=== PATIENT | female | born 2000 | race Caucasian/White ===

== ENCOUNTER 2019-09-30 14:39 | Emergency (ER) | payer OTHER, SELFPAY ==
[2019-09-30 14:50] VITALS: BP 126/65; PULSE 77; RESP 18; TEMP 36.7; O2SAT 100
--- NOTE | 2019-09-30 14:55 | ED.ABDPAIN ---
HPI - Abdominal Pain General Chief Complaint: Abdominal Pain Stated Complaint: abdominal pain/vomitting Time Seen by Provider: 09/30/19 14:55 Source: patient Mode of arrival: ambulatory Limitations: no limitations History of Present Illness HPI narrative: Mary Huang is a 19 yo female with no PMH who comes to express care with c/o abdominal pain and persistant nausea since Sat. Pain worse with eating. Last vomited yesterday states the pain is gotten worse over the last 2 days and she was up to 130 this morning and pain Related Data Home Medications Medication Instructions Recorded Confirmed No Home Medications 09/30/19 09/30/19 Allergies Allergy/AdvReac Type Severity Reaction Status Date / Time No Known Allergies Allergy Verified 09/30/19 15:01 Review of Systems Review of Systems: Narrative: CONSTITUTIONAL: Denies fever, chills, sweats. EYES: Denies visual changes, redness, discharge. ENT: Denies rhinorrhea, congestion, sore throat, otalgia. CARDIOVASCULAR: Denies chest pain, palpitations, edema. RESPIRATORY: Denies dyspnea, wheezing, cough GASTROINTESTINAL: Denies abdominal pain, nausea, vomiting, diarrhea. Has abdominal pain GENITOURINARY: Denies dysuria, hematuria, abnormal discharge SKIN: Denies rash or itching. NEUROLOGIC: Denies numbness, or focal weakness. PSYCHIATRIC: Denies anxiety or depression. PMFSH Family History Family History Other Hypertension Social History Social History Smoking status: Never smoker Alcohol intake: never Comments At time of signature, I agree with nursing past medical, surgical, social and family history. There is no relevant family history pertinent to the presenting complaint. Exam Narrative: Exam Narrative: GENERAL: This is a well-nourished, well-developed patient, in mild distress. HEAD: normocephalic, atraumatic. EYES: Sclera clear/white. Vision is grossly intact. EARS: External ears normal, Hearing grossly intact. NOSE: External nose normal without nasal discharge, nares without redness, no rhinorrhea. THROAT: Mucous membranes moist, NECK: Neck supple, non-tender CARDIOVASCULAR: Regular rate and rhythm without murmurs, gallops, or rubs. RESPIRATORY: Clear to auscultation. Breath sounds equal bilaterally. No wheezes, rales, or rhonchi. GASTROINTESTINAL: Abdomen soft, SKIN: warm, intact with no suspicious lesions or rash, good texture and turgor. NEURO: awake, alert, and oriented to person, place and time. There were no obvious focal neurologic abnormalities. Steady gait EXTREMITIES: Normal range of motion. BACK: Nontender without deformity Course Course Emergency Course: Urine test negative Worsening abdominal pain patient is to be evaluated the emergency room where blood work can be done and possible imaging Vital Signs Vital signs: Vital Signs Temperature 98.1 F 09/30/19 14:50 Pulse Rate 77 09/30/19 14:50 Respiratory Rate 18 09/30/19 14:50 Blood Pressure 126/65 09/30/19 14:50 Pulse Oximetry 100 09/30/19 14:50 Temperature 98.1 F 09/30/19 14:50 Pulse Rate 77 09/30/19 14:50 Respiratory Rate 18 09/30/19 14:50 Blood Pressure 126/65 09/30/19 14:50 Pulse Oximetry 100 09/30/19 14:50 MDM - Abdominal Pain Differential Diagnosis Differential diagnosis: Likely abdominal pain, acute appendicitis, diverticulitis and other (Ectopic versus colitis) Lab Data Labs: UCG Bedside Result Negative Reference Range: Negative Urine Glucose Negative Reference Range: Negative Urine Bilirubin Negative Reference Range: Negative Urine Ketone Negative Reference Range: Negative Urine Specific [place] 1.030 Reference Range:1.001-1.035 Urine Blood
== END 2019-09-30 15:20 | disposition short-term general hospital (02) ==
PROVIDERS: Emergency Provider Nurse Practitioner; PCP Family Medicine
DX: R10.84 Generalized abdominal pain (principal)
CPT/HCPCS: 81003; 81025; 99213; G0463

== ENCOUNTER 2019-09-30 16:28 | Emergency (ER) | payer OTHER, SELFPAY ==
--- NOTE | ~2019-09-30 | CT_ITS ---
EXAMINATION: CT abdomen pelvis w con INDICATION: Lower abdominal pain TECHNIQUE: Computed tomographic images of the abdomen and pelvis were obtained after the administrati on of 100 cc of Omnipaque 350 intravenous contrast. The dose-length product (DLP) was 1482.23 mGy-cm. Automated exposure control and iterative reconstruction technique were employed. COMPARISON: None available FINDINGS: The lung bases are clear. The heart size is normal. The liver, spleen, pancreas, gallbladde r, and adrenal glands are normal. The kidneys are unremarkable. No pathologically enlarged abdominal or pelvic lymph nodes are identified. There is no free intraperitoneal gas or evidence of bowel obstr uction. The appendix is normal. IMPRESSION: 1. No CT correlate for the patient's symptoms. Reviewed, dictated and finalized at location A.
[2019-09-30 16:47] VITALS: BP 124/75; PULSE 84; RESP 16; TEMP 36.4; O2SAT 99
--- NOTE | 2019-09-30 17:30 | ED.ABDPAIN ---
HPI - Abdominal Pain General Chief Complaint: Abdominal Pain Stated Complaint: abd pain Time Seen by Provider: 09/30/19 17:04 Source: patient Mode of arrival: ambulatory Limitations: no limitations History of Present Illness HPI narrative: This patient is a 19 year old female who presents with c/o lower abdominal pain x 3 days. PAtient states she has constant lower abdominal pain that radiates into her back. She describes her pain has strong cramps. The severity of her pain waxes and wanes. Her pain is worse with eating and it is associated with nausea but no vomiting. She reports normal bowel movements and she urinary symptoms. She has not taken anything for her pain. She rates her pain as 5/10 MD elicited complaint: abdominal pain Related Data Allergies Allergy/AdvReac Type Severity Reaction Status Date / Time No Known Allergies Allergy Verified 09/30/19 17:00 Review of Systems Review of Systems: All systems reviewed & are unremarkable except as noted in HPI and below Constitutional: Constitutional: Denies chills, Denies fever(s) and Denies weakness Gastrointestinal: Gastrointestinal: Reports abdominal pain, Denies diarrhea, Reports nausea and Denies vomiting Genitourinary: Genitourinary: Denies hematuria, Denies nocturia, Denies urinary incontinence and Denies vaginal discharge Musculoskeletal: Musculoskeletal: Reports back pain PMFSH Past Medical History Medical History (Updated 09/30/19 @ 20:06 by Mariam Carroll MD) Patient denies medical problems Surgical History Surgical History (Updated 09/30/19 @ 17:31 by Mariam Carroll MD) Hx of tonsillectomy Social History Social History Smoking status: Never smoker Alcohol intake: never Exam Narrative: Exam Narrative: GENERAL: Well-appearing, well-nourished, and in no acute distress. HEAD: Normocephalic, atraumatic EYES: PERRLA and EOMI, conjunctiva clear without discharge NECK: Supple, without lymphadenopathy or mass RESPIRATORY: No respiratory distress, Airway patent, Respirations non-labored, Clear to auscultation without rales, rhonchi or wheeze HEART: Regular rate and rhythm. No murmur heard. Normal peripheral pulses. . EXTREMITIES: No edema, normal strength with full range of motion. SKIN: Warm, dry, normal color without rash NEURO: Alert and oriented x3. CN 2-12 grossly intact. No focal deficits. PSYCH: Normal mood and affect. GI: GI Palp: Yes Soft to palpation, Yes Tenderness to palpation present (GI) (bilateral lower quadrant), No Guarding due to palpation present (GI) and No Rigid due to palpation Auscultation: normal bowel sounds : Speculum Exam - Vagina: normal vaginal discharge Speculum Exam - Cervix: Cervical os closed Bimanual exam- vagina & uterus: no cervical motion tenderness Bimanual Exam- Adnexa, other: no masses Course Reevaluation(s) Reevaluation #1: I Discussed with patient labs and CT are unremarkable. She states her pain has almost resolved Date: 09/30/19 Time: 20:05 Vital Signs Vital signs: Vital Signs Temperature 97.5 F L 09/30/19 16:47 Pulse Rate 84 09/30/19 16:47 Respiratory Rate 16 09/30/19 16:47 Blood Pressure 124/75 09/30/19 16:47 Pulse Oximetry 99 09/30/19 16:47 Temperature 97.5 F L 09/30/19 16:47 Pulse Rate 84 09/30/19 16:47 Respiratory Rate 16 09/30/19 16:47 Blood Pressure 124/75 09/30/19 16:47 Pulse Oximetry 99 09/30/19 16:47 MDM - Abdominal Pain Differential Diagnosis Differential diagnosis: Likely abdominal pain, acute appendicitis, constipation, diverticulitis and gastroenteritis Lab Data Attestation: I reviewed the patient's lab results. Result diagrams: 09/30/19 17:30 09/30/19 17:30 Labs: Lab Results 09/30/19 09/30/19 09/30/19 Range/Units 17:30 17:30 17:37 WBC 3.9 L (4.5-10.0) K/mm3 RBC 4.49 (4.2-5.4) M/mm3 Hgb 13.3 (12.0-15.0) g/d
[2019-09-30 17:36] LABS: Basophils Percent Auto 0.5 % (0.2-1.2); Eosinophils Absolute Auto 0.1 K/mm3 (0-0.3); Eosinophils Percent Auto 1.3 % (0-4.4); Hematocrit 40.9 % (37.0-47.0); Hemoglobin 13.3 g/dL (12.0-15.0); Immature Granulocyte Absolute 0.01 K/mm3 (0.00-0.031); Immature Granulocyte Percent A 0.3 % (0-0.5); Lymphocytes Absolute Auto 0.69 K/mm3 (0.9-3.2); Lymphocytes Percent Auto 17.7 % (18.3-44.2); Mean Corpuscular HGB Conc 32.5 g/dl (32-36); Mean Corpuscular Hemoglobin 29.6 pg (26-34); Mean Corpuscular Volume 91.1 fl (80-100); Mean Platelet Volume 9.5 fl (7.4-10.4); Monocytes Absolute Auto 0.4 K/mm3 (0.1-0.6); Monocytes Percent Auto 10.3 % (2.6-8.5); Neutrophils Absolute Auto 2.7 K/mm3 (1.3-6.7); Neutrophils Percent Auto 69.9 % (45.5-73.1); Platelet Count Result 204 k/mm3 (150-375); Red Blood Count 4.49 M/mm3 (4.2-5.4); Red Cell Distribution Width 13.2 % (11.5-14.5); White Blood Count 3.9 K/mm3 (4.5-10.0)
[2019-09-30 17:48] LABS: Add Urine Microscopic? YES; Appearance Urine Clear (Clear); Bacteria Urine Trace /hpf; Bilirubin Urine Negative (Negative); Blood Urine Negative (Negative); Color Urine Yellow (Yellow); Glucose Urine UA Negative (Negative); Ketones Urine Trace mg/dL (Negative); Leukocyte Esterase Ur Negative LEU/UL (Negative); Mucus Urine Rare /lpf; Nitrate Urine Negative (Negative); Protein Urine Negative (Negative); RBC Urine 0-2 /hpf (0-2); Specific Grav Ur 1.021 (1.001-1.035); Squamous Epithelial Cell Urine Occasional /hpf (Few); Urobilinogen Urine Negative mg/dL (<2.0); WBC Urine 0-3 /hpf
[2019-09-30] MEDS: LACTATED RINGERS 1,000 ML 999 ML IV CONT (17:50)
[2019-09-30] MEDS: ONDANSETRON INJ 4 MG/2 ML VIAL IV PUSH (17:50)
[2019-09-30] MEDS: KETOROLAC 30 MG/ML VIAL (*BKC) IV PUSH (17:51)
[2019-09-30 17:54] LABS: Alanine Aminotransferase 27 U/L (4-35); Albumin Level 4.4 g/dL (3.5-5.1); Alkaline Phosphatase 73 U/L (38-126); Aspartate Amino Transferase 31 U/L (14-36); Bilirubin,Total 0.7 mg/dL (0.2-1.3); Blood Urea Nitrogen 10 mg/dL (7-17); Calcium 9.3 mg/dL (8.4-10.2); Carbon Dioxide 27 mmol/L (22-30); Chloride 105 mmol/L (98-107); Estimated CRCL calculation 114 ml/min; Estimated Glomerular Filt Rate > 60; Glucose 83 mg/dL (65-105); Lipase 69 U/L (23-300); Potassium 4.1 mmol/L (3.4-5.0); Sodium 138 mmol/L (137-145)
--- NOTE | 2019-09-30 19:21 | PC.NURSE ---
Report to TRAY Johnson to continue care. Dr. Carroll preparing to perform pelvic exam.
--- NOTE | 2019-09-30 19:25 | PC.NURSE ---
Assumed care of pt at this time. report from TRAY Hayes
[2019-09-30 20:13] VITALS: BP 122/88; PULSE 88; RESP 14; O2SAT 99
== END 2019-09-30 20:14 | disposition home or self-care (01) ==
PROVIDERS: Emergency Provider General Practice
DX: R10.32 Left lower quadrant pain (principal); R10.31 Right lower quadrant pain
CPT/HCPCS: 36415; 74177; 80053; 81001; 81003; 81025; 83690; 85025; 87070; 87077; 87491; 87591; 87808; 96361; 96374; 96375; 99284; J1885; J2405; J7120; Q9967

== ENCOUNTER 2020-09-30 10:30 | Emergency (ER) | payer OTHER, SELFPAY ==
--- NOTE | ~2020-09-30 | XR_ITS ---
EXAMINATION: XR elbow LT min 3V DATE: 09/30/2020 10:51 INDICATION: Left elbow pain. Injury. TECHNIQUE: 4 views of left elbow were obtained. COMPARISON: None. FINDINGS: Bone alignment is normal. No fracture. Joint spaces are well maintained. There is no elbow joint effusion. IMPRESSION: 1. Normal left elbow. Reviewed, dictated and finalized at location B. IMPRESSION: 1. Normal left elbow.
[2020-09-30 10:38] VITALS: BP 137/58; PULSE 79; RESP 16; TEMP 36.9; O2SAT 100
--- NOTE | 2020-09-30 10:38 | ED.UPPEXIN ---
HPI - Extremity Injury (Upper) General Chief Complaint: Extremity Injury, Upper Stated Complaint: left elbow pain Time Seen by Provider: 09/30/20 10:38 Source: patient and RN notes reviewed Mode of arrival: ambulatory Limitations: no limitations History of Present Illness HPI narrative: 20-year-old female presents with concern for left elbow injury. Reports yesterday she the elbow on the wall. Reports she has had a prior fracture in the elbow. She denies bruising, swelling, redness. Reports pain at rest, pain with palpation and range of motion. Reports pain that shoots up to her shoulder and down to her wrist. She denies any wrist or shoulder injury. She denies intervention. complaint: injury to: left and elbow Related Data Home Medications Medication Instructions Recorded Confirmed No Home Medications 09/30/20 09/30/20 Allergies Allergy/AdvReac Type Severity Reaction Status Date / Time No Known Allergies Allergy Verified 09/30/20 10:46 Review of Systems Review of Systems: Narrative: CONSTITUTIONAL: Denies malaise, chills, sweats, or fever. CARDIOVASCULAR: Denies chest pain, palpitations, or edema. RESPIRATORY: Denies cough or dyspnea. SKIN: Denies abrasions, lacerations MUSCULOSKELETAL: Reports left elbow pain that radiates to the wrist and shoulder NEUROLOGIC: Denies numbness, weakness All systems reviewed & are unremarkable except as noted in HPI and below PMFSH Past Medical History Medical History (Updated 09/30/20 @ 11:12 by Maine Bender NP) Patient denies medical problems Surgical History Surgical History (Updated 09/30/19 @ 17:31 by Mariam Carroll MD) Hx of tonsillectomy Family History Family History Other Hypertension Social History Social History Smoking status: Never smoker Alcohol intake: never Comments At time of signature, agree with nursing past medical, surgical, social and family history. There is no relevant family history pertinent to the presenting complaint Exam Narrative: Exam Narrative: GENERAL: Well-appearing, well-nourished, and in no acute distress. HEAD: Normocephalic, atraumatic. EYES: PERRLA, conjunctivae clear NECK: Supple. CHEST: Speaks in full sentences. No respiratory distress. HEART: Regular rate and rhythm. Normal and equal peripheral pulses. EXTREMITIES: Left elbow has normal strength and sensation, normal range of motion. No edema or ecchymosis. 5/5 strength with elbow flexion and extension. Normal sensation with sensitivity to light touch and pain. Lateral elbow tenderness. No open wounds, no skin tenting, no devitalized tissue or atrophy, no trophic changes, no obvious deformity, alignment normal, nearby joints and structures intact. Distal pulses palpable and equal bilaterally, skin warm, dry, pink. Capillary refill less than 3 seconds. SKIN: Warm, dry, no rash. NEURO: Alert and oriented x3. PSYCH: Normal mood and affect Course Course Emergency Course: Patient is aware of diagnosis, understands and agrees to treatment plan. Anticipatory guidance given. Patient agrees to follow-up as directed and is aware of reasons to seek care at the emergency department. Portions of this record may have been created with voice recognition software Vital Signs Vital signs: Vital Signs Temperature 98.5 F 09/30/20 10:38 Pulse Rate 79 09/30/20 10:38 Respiratory Rate 16 09/30/20 10:38 Blood Pressure 137/58 L 09/30/20 10:38 Pulse Oximetry 100 09/30/20 10:38 Temperature 98.5 F 09/30/20 10:38 Pulse Rate 79 09/30/20 10:38 Respiratory Rate 16 09/30/20 10:38 Blood Pressure 137/58 L 09/30/20 10:38 Pulse Oximetry 100 09/30/20 10:38 Reviewed. MDM - Extremity Injury (Upper) MDM Narrative Medical decision making narrative: Patients injury and pain is consistent with musculoskeletal etiology. No signs of neurol
== END 2020-09-30 11:16 | disposition home or self-care (01) ==
PROVIDERS: Emergency Provider Nurse Practitioner
DX: S59.902A Unspecified injury of left elbow, initial encounter (principal); W22.01XA Walked into wall, initial encounter
CPT/HCPCS: 73080; 99213; A4565; G0463

== ENCOUNTER 2021-02-24 11:14 | Emergency (ER) | payer OTHER, SELFPAY ==
[2021-02-24 11:23] VITALS: BP 129/54; PULSE 80; RESP 14; TEMP 36.4; O2SAT 100
--- NOTE | 2021-02-24 11:34 | ED.EAR ---
HPI - Ear Problem General Chief complaint: Ear Stated complaint: ear pain Time Seen by Provider: 02/24/21 11:34 Source: patient History of Present Illness HPI Narrative: PATIENT PRESENTS WITH LEFT EAR PAIN. PATIENT WAS DIAGNOSED WITH LEFT OTITS EXTERNA. PATIENT REPORTS HER EAR IS NOT GETTING ANY BETTER. DENIES ANY OTHER COMPLAINTS. PATIENT IS WITH NO RELATED PROBLEMS. MD Complaint: ear pain Related Data Home Medications Medication Instructions Recorded Confirmed ciprofloxacin-dexamethasone 4 drp LEFT EAR Q12H 02/24/21 02/24/21 [Ciprodex] folic acid 1 mg PO DAILY 02/24/21 02/24/21 vit no.209-[id number] 1 tablet PO DAILY 02/24/21 02/24/21 [Alive ] Allergies Allergy/AdvReac Type Severity Reaction Status Date / Time No Known Allergies Allergy Verified 02/24/21 11:35 Review of Systems Review of Systems: CONSTITUTIONAL: Denies fever, chills, or sweats. EYES: Denies visual changes, redness, or discharge. ENT: Denies rhinorrhea, congestion, sore throat, or otalgia. CARDIOVASCULAR: Denies chest pain, palpitations, or edema. RESPIRATORY: Denies cough or dyspnea. GASTROINTESTINAL: Denies abdominal pain, nausea, vomiting, or diarrhea. GENITOURINARY: Denies dysuria or hematuria. SKIN: Denies rash or itching. MUSCULOSKELETAL: Denies back pain, joint pain, or myalgia. NEUROLOGIC: Denies headache, numbness, or weakness. PSYCHIATRIC: Denies anxiety or depression. PMFSH Past Medical History Medical History (Updated 02/24/21 @ 11:43 by RASHI Tubbs) Patient denies medical problems Surgical History Surgical History (Updated 09/30/19 @ 17:31 by Mariam Carroll MD) Hx of tonsillectomy Family History Family History Other Hypertension Social History Social History Smoking status: Never smoker Alcohol intake: never Comments At time of signature, agree with nursing past medical, surgical, social and family history. There is no relevant family history pertinent to the presenting complaint Exam Narrative: GENERAL: Well-appearing, well-nourished, and in no acute distress. HEAD: Normocephalic, atraumatic. EYES: PERRLA and EOMI. ENT: Nares clear, no rhinorrhea or epistaxis. Mucous membranes moist. Right ear moderate erythremia to canal TM opaque left TM dullness no erythremia to the canal NECK: Supple. CHEST: Clear to auscultation. No respiratory distress. HEART: Regular rate and rhythm. No murmur heard. Normal peripheral pulses. ABDOMEN: Soft, nontender, nondistended, normal active bowel sounds. EXTREMITIES: Normal range of motion. No edema. SKIN: Warm, dry, no rash. NEURO: No focal deficits. Alert and oriented x3. [place] Coma Scale Eye Opening: Spontaneous 4 [place] Coma Scale Motor: Obeys Commands 6 [place] Coma Scale Verbal: Oriented 5 Heath Coma Scale Total 15 Course Vital Signs Vital signs: Vital Signs Temperature 36.4 C L 02/24/21 11:23 Pulse Rate 80 02/24/21 11:23 Respiratory Rate 14 02/24/21 11:23 Blood Pressure 129/54 L 02/24/21 11:23 Pulse Oximetry 100 02/24/21 11:23 Temperature 36.4 C L 02/24/21 11:37 Pulse Rate 80 02/24/21 11:37 Respiratory Rate 14 02/24/21 11:37 Blood Pressure 129/54 L 02/24/21 11:37 Pulse Oximetry 100 02/24/21 11:37 Addressed elevated BP today. Today's blood pressure higher than recommended range. Discussed importance of follow -up with PCP and possible terminal block assembler effects/cardiovascular events related to HTN. Currently patient denies headache, dizziness, vision changes, CP or shortness of breath. Medical Decision Making Differential Diagnosis Differential Diagnosis: Otitis media, otitis externa, eustachian tube dysfunction Vital Signs Vital Signs: Vital Signs Temperature 36.4 C L 02/24/21 11:23 Pulse Rate 80 02/24/21 11:23 Respiratory Rate 14 02/24/21 11:23 Blo
[2021-02-24 11:37] VITALS: BP 129/54; PULSE 80; RESP 14; TEMP 36.4; O2SAT 100
== END 2021-02-24 11:50 | disposition home or self-care (01) ==
PROVIDERS: Emergency Provider Nurse Practitioner Family
DX: O99.891 Other specified diseases and conditions complicating pregnancy (principal); Z3A.00 Weeks of gestation of pregnancy not specified; H66.91 Otitis media, unspecified, right ear
CPT/HCPCS: 99213; G0463

== ENCOUNTER 2022-06-22 15:17 | Emergency (ER) | payer OTHER, SELFPAY ==
--- NOTE | 2022-06-22 15:19 | ED.URI ---
HPI - URI/Sore Throat General Chief Complaint: Eye Problems Stated Complaint: drainage from nose and eye Time Seen by Provider: 06/22/22 15:19 Source: patient and RN notes reviewed History of Present Illness HPI Narrative: Patient is a 22-year-old female who presents to urgent care with complaints of nasal drainage and left eye drainage. Patient states it started yesterday and she has not been doing anything [id number] for her symptoms. Patient does not wear contacts. Only glasses. Denies any eye injury or pain to the eye. No other acute complaints. No acute distress noted. Patient aware of the plan of care. Some parts of this dictation were generated by voice recognition software and may contain typographical and/or grammatical inaccuracies. Related Data Home Medications Medication Instructions Recorded Confirmed topiramate 50 mg tablet See Rx Instructions .Route .COMPLEX 06/22/22 06/22/22 Allergies Allergy/AdvReac Type Severity Reaction Status Date / Time No Known Allergies Allergy Verified 06/22/22 15:29 Review of Systems Review of Systems: CONSTITUTIONAL: Denies fever, chills, or sweats. EYES: Reports of drainage and itchiness to the left eye ENT: Reports rhinorrhea from the left nostril CARDIOVASCULAR: Denies chest pain, palpitations, or edema. RESPIRATORY: Denies cough or dyspnea. GASTROINTESTINAL: Denies abdominal pain, nausea, vomiting, or diarrhea. GENITOURINARY: Denies dysuria or hematuria. SKIN: Denies rash or itching. MUSCULOSKELETAL: Denies back pain, joint pain, or myalgia. NEUROLOGIC: Denies headache, numbness, or weakness. All other systems reviewed are negative, except as documented in HPI. [facility] Past Medical History Medical History (Updated 06/22/22 @ 15:49 by RASHI Rossi) Patient denies medical problems Surgical History Surgical History (Updated 09/30/19 @ 17:31 by Mariam Carroll MD) Hx of tonsillectomy Family History Family History Other Hypertension Social History Social History Smoking status: Never smoker Alcohol intake: never Comments At the time of my signature, I reviewed and agree with the nursing past medical, surgical, social, and family history. There is no relevant family history pertinent to the patient complaint. Exam Narrative: GENERAL: This is a well-nourished, well-developed patient, in no apparent distress. HEAD: normocephalic, atraumatic. EYES: PERRL. right Sclera clear/white. Vision is grossly intact. Mildly injected left conjunctiva/sclera with thick yellow drainage EARS: External ears normal, auditory canals clear and without drainage, TMs normal without perforation. Hearing grossly intact. NOSE: External nose normal with no obvious nasal discharge, nares without redness, yellow rhinorrhea. THROAT: Mucous membranes moist, posterior pharynx clear. Mild postnasal drainage NECK: Neck supple, non-tender without lymphadenopathy, masses or thyromegaly. CARDIOVASCULAR: Regular rate and rhythm without murmurs, gallops, or rubs. RESPIRATORY: Clear to auscultation. Breath sounds equal bilaterally. No wheezes, rales, or rhonchi. SKIN: warm, intact with no suspicious lesions or rash, good texture and turgor. NEURO: awake, alert, and oriented to person, place and time. There were no obvious focal neurologic abnormalities. EXTREMITIES: No clubbing, cyanosis, or edema. Course Course Level of Care: Express Care Visit Vital Signs Vital signs: Vital Signs Temperature 97.8 F 06/22/22 15:23 Pulse Rate 87 06/22/22 15:23 Respiratory Rate 16 06/22/22 15:23 Blood Pressure 143/69 H 06/22/22 15:23 Pulse Oximetry 100 06/22/22 15:23 Oxygen Delivery Room Air 06/22/22 15:23 Temperature 97.8 F 06/22/22 15:23 Pulse Rate 87 06/22/22 15:23 Respiratory Rate 16 06/22/22 15:23 Blood Pressure 143/69 H 02
[2022-06-22 15:23] VITALS: BP 143/69; PULSE 87; RESP 16; TEMP 36.6; O2SAT 100
== END 2022-06-22 15:50 | disposition home or self-care (01) ==
PROVIDERS: Emergency Provider Nurse Practitioner Family; PCP Family Medicine
DX: H10.9 Unspecified conjunctivitis (principal)
CPT/HCPCS: 99213; G0463

== ENCOUNTER 2023-02-03 13:50 | Emergency (ER) | payer OTHER, SELFPAY ==
--- NOTE | 2023-02-03 13:52 | ED.EAR ---
HPI - Ear Problem General Chief complaint: Ear Stated complaint: Right Ear Problem Time Seen by Provider: 02/03/23 13:51 Source: patient Mode of arrival: ambulatory Limitations: no limitations History of Present Illness HPI Narrative: Mary is a 22-year-old female patient presenting to the clinic today with complaints of right ear pain, sinus congestion, and green nasal drainage x1 week. She reports no known fever or chills. Did 2 at home COVID test over the last week and were negative. States she is having decreased hearing and pain in the right ear and elbow left ear is also having decreased hearing. Related Data Home Medications Medication Instructions Recorded Confirmed topiramate 50 mg tablet See Rx Instructions .Route .COMPLEX 06/22/22 02/03/23 Allergies Allergy/AdvReac Type Severity Reaction Status Date / Time No Known Allergies Allergy Verified 06/22/22 15:29 Review of Systems Review of Systems: Pertinent positives per HPI. Patient denies any fever, chills, rash, headache, visual changes, dizziness, sore throat, shortness of breath, chest pain, palpitations, nausea, vomiting, diarrhea, constipation, abdominal pain, or any urinary issues. PMFSH Past Medical History Medical History Patient denies medical problems Surgical History Surgical History Hx of tonsillectomy Family History Family History Other Hypertension Social History Social History Smoking status: Never smoker Alcohol intake: never Comments At the time of my signature, I reviewed and agree with the nursing past medical, surgical, social, and family history. There is no relevant family history pertinent to the patient complaint. Exam Narrative: General: Well-developed, well nourished, in no apparent distress Head: Normocephalic, atraumatic Eyes: Pupils equally round and reactive to light bilaterally, EOM intact, sclera and conjunctive clear, no discharge, lids normal Ears: Left TM intact and clear, right TM intact, bulging, red, ear canals clear, no drainage, grossly hearing normal. Nose: Nares patent, green nasal discharge, moderate inflammation, maxilla sinus tenderness. Mouth: Oropharynx without lesions or masses, good dentition, MMM. Neck: Supple, trachea midline, no enlargement of anterior or posterior cervical nodes, no thyroid masses or goiter palpable. Cardio: Regular rate and rhythm, s1 and s2 normal, no murmur appreciated. Resp: Clear to auscultation bilaterally anteriorly and posteriorly, no rhonchi, rales, wheezing or rubs Course Course Emergency Course: Portions of this record may have been created with voice recognition software. Level of Care: Express Care Visit Vital Signs Vital signs: Vital signs reviewed Medical Decision Making MDM Narrative Medical decision making narrative: At the time of visit patient is resting comfortably on the exam table. Patient has right otitis media and sinusitis. Prescription for Augmentin and prednisone was sent to pharmacy. Supportive measures were discussed with the patient she voiced understanding discharge instructions agrees to treatment plan. Differential Diagnosis Differential Diagnosis: Otitis media, otitis externa, eustachian tube dysfunction, cerumen impaction, upper respiratory infection, sinus infection Discharge Plan Discharge Clinical Impression: Acute right otitis media Sinus infection Qualifiers: Sinusitis location: maxillary Chronicity: acute Recurrence: non-recurrent Qualified Code(s): J01.00 - Acute maxillary sinusitis, unspecified Patient Disposition: Home, Self-Care Condition: Stable Instructions: Antibiotic Form, Ear Infection (ED), Rhinosinusitis (ED) Additional Instructions: Aditya
[2023-02-03 13:58] VITALS: BP 153/81; PULSE 83; RESP 16; TEMP 36.5; O2SAT 100
== END 2023-02-03 14:06 | disposition home or self-care (01) ==
PROVIDERS: Emergency Provider Nurse Practitioner Family
DX: H66.91 Otitis media, unspecified, right ear (principal); J01.00 Acute maxillary sinusitis, unspecified
CPT/HCPCS: 99213; G0463

== ENCOUNTER 2023-12-24 15:46 | Emergency (ER) | payer OTHER, SELFPAY ==
[2023-12-24 15:54] VITALS: BP 121/90; PULSE 81; RESP 18; TEMP 36.8; O2SAT 100
--- NOTE | 2023-12-24 16:47 | ED.GENADULT ---
HPI - General Adult General Chief complaint: Unspecified Stated complaint: Fever Source: patient Mode of arrival: ambulatory Limitations: no limitations History of Present Illness HPI narrative: Patient presents for evaluation of sick symptoms. Symptom onset last night. Symptoms include hot flashes, sinus congestion and some mild shortness of breath. She is currently approximately 25 weeks gestation. She has had a confirmed IUP per ultrasound. Denies any abdominal pain or vaginal bleeding. 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 She was recently treated for UTI with amoxicillin. She would like a COVID test but did not have one at home. Related Data Home Medications Medication Instructions Recorded Confirmed aspirin 81 mg tablet,delayed mg 12/24/23 release vit no.95-ferrous tablet PO 12/24/23 fumarate 28 mg-folic acid 800 mcg tablet () riboflavin (vitamin B2) 400 mg mg 12/24/23 tablet Allergies Allergy/AdvReac Type Severity Reaction Status Date / Time No Known Allergies Allergy Verified 06/22/22 15:29 Review of Systems Review of Systems: CONSTITUTIONAL: Reports hot flashes. Denies fever, chills, or sweats. EYES: Denies visual changes, redness, or discharge. ENT: Reports sinus congestion. Denies rhinorrhea, sore throat, or otalgia. CARDIOVASCULAR: Denies chest pain, palpitations, or edema. RESPIRATORY: Reports mild SOB. Denies cough or dyspnea. GASTROINTESTINAL: Denies abdominal pain, nausea, vomiting, or diarrhea. GENITOURINARY: Denies dysuria or hematuria. SKIN: Denies rash or itching. MUSCULOSKELETAL: Denies back pain, joint pain, or myalgia. NEUROLOGIC: Denies headache, numbness, dizziness, or weakness. PSYCHIATRIC: Denies anxiety or depression. [facility] Past Medical History Medical History Patient denies medical problems Surgical History Surgical History Hx of tonsillectomy Family History Family History Other Hypertension Social History Social History Smoking status: Never smoker Alcohol intake: never Gender identity (if verbalized by the patient): Female Sexual Orientation (if Verbalized by the Patient): Straight or Heterosexual Spiritual care concerns: No Exam Narrative: GENERAL: Well-appearing, well-nourished, and in no acute distress. HEAD: Normocephalic, atraumatic. EYES: PERRLA and EOMI. ENT: Nares clear, no rhinorrhea or epistaxis. Mucous membranes moist. Oropharynx without tonsillar hypertrophy exudate or other lesions. Bilateral TMs pearly andersen nonbulging NECK: Supple. No adenopathy or masses. No carotid bruits or JVD CHEST: Clear to auscultation. No respiratory distress. No wheezes rales or rhonchi HEART: Regular rate and rhythm. No murmur heard. Normal peripheral pulses. ABDOMEN: Soft, nontender, nondistended, normal active bowel sounds. EXTREMITIES: Normal range of motion. No edema. SKIN: Warm, dry, no rash. NEURO: No focal deficits. Alert and oriented x3. PSYCH: Normal mood and affect. Course Course Emergency Course: This is a 23 old female who presented for evaluation of sick symptoms. COVID test here negative. Exam is consistent with acute viral syndrome. Vital signs are stable. Follow-up with primary provider and OBGYN. Go to the ER for worsening symptoms. Patient in agreement with of care. Level of Care: Express Care Visit Vital Signs Vital signs: Vital Signs Temperature 36.8 C 12/24/23 15:54 Pulse Rate 81 12/24/23 15:54 Respiratory Rate 18 12/24/23 15:54 Blood Pressure 121/90 12/24/23 15:54 Pulse Oximetry 100 12/24/23 15:54 Oxygen Delivery Room Air 12/24/23 15:54 Temperature 36.8 C 12/24/23 1
== END 2023-12-24 16:45 | disposition home or self-care (01) ==
PROVIDERS: Emergency Provider Nurse Practitioner
DX: O98.512 Other viral diseases complicating pregnancy, second trimester (principal); B34.9 Viral infection, unspecified; Z3A.25 25 weeks gestation of pregnancy; Z20.822 Contact with and (suspected) exposure to COVID-19
CPT/HCPCS: 87426; 99212; G0463

== ENCOUNTER 2024-05-03 08:43 | Emergency (ER) | payer OTHER, SELFPAY ==
--- NOTE | ~2024-05-03 | XR_ITS ---
EXAMINATION: XR finger 2nd RT min 2V DATE: 05/03/2024 09:05 INDICATION: Pain at the right second middle phalanx post injury 2 weeks prior TECHNIQUE: Dorsal palmar, lateral and 2 oblique views of the right second digit were obtained COMPARISON: 07/15/2013 FINDINGS: Alignment is normal. No fracture. Joint spaces are normal. Soft tissues are unremarkable. IMPRESSION: 1. Negative radiographs of the right second digit Reviewed, dictated and finalized at location [facility] [employer]
[2024-05-03 08:49] VITALS: BP 141/78; PULSE 71; RESP 16; TEMP 36.6; O2SAT 100
--- NOTE | 2024-05-03 09:07 | ED.UPPEXIN ---
HPI - Extremity Injury (Upper) General Chief Complaint: Extremity Injury, Upper Stated Complaint: Finger Injury Source: patient Mode of arrival: ambulatory Limitations: no limitations History of Present Illness HPI narrative: 24 y/o female presented for c/o right index finger pain x2 weeks after an injury. States she injured it somehow while trying to adjust a carseat.Says she cannot fully make a fist with the finger. Denies numbness, tingling or deformity. She has a 4week old baby and had been taking Tylenol and ibuprofen, but without much improvement in finger pain. Related Data Home Medications ?Medication ?Instructions ?Recorded ?Confirmed ?Last Taken ?Type aspirin 81 mg tablet,delayed mg 12/24/23 Unknown History release vit no.95-ferrous tablet PO 12/24/23 Unknown History fumarate 28 mg-folic acid 800 mcg tablet () riboflavin (vitamin B2) 400 mg mg 12/24/23 Unknown History tablet Allergies Allergy/AdvReac Type Severity Reaction Status Date / Time No Known Allergies Allergy Verified 05/03/24 09:08 Review of Systems Review of Systems: CONSTITUTIONAL: Denies body aches, fever, chills CARDIOVASCULAR: Denies chest pain, palpitations, or edema. RESPIRATORY: Denies cough or dyspnea. GASTROINTESTINAL: Denies abdominal pain, nausea, vomiting, or diarrhea. SKIN: Denies rash, itching, or wounds. MUSCULOSKELETAL: per HPI NEUROLOGIC: Denies numbness, tingling, or weakness. All systems reviewed & are unremarkable except as noted in HPI and below PMFSH Past Medical History Medical History Patient denies medical problems Surgical History Surgical History Hx of tonsillectomy Family History Family History Other Hypertension Social History Social History Smoking status: Never smoker Alcohol intake: never Gender identity (if verbalized by the patient): Female Sexual Orientation (if Verbalized by the Patient): Straight or Heterosexual Spiritual care concerns: No Comments At time of signature, I have reviewed and agree with nursing past medical, surgical, social and family history unless otherwise noted. Please see nursing chart for further information. There is no relevant family history pertinent to the presenting complaint Exam Narrative: GENERAL: Well-appearing CHEST: Speaks in full sentences. No respiratory distress. HEART: Regular rate and rhythm. Normal and equal peripheral pulses. EXTREMITIES: Right 2nd digit has normal strength and sensation, slightly decreased range of motion with flexion due to pain with movement. Tender to PIP radial side, No swelling or ecchymosis, No open wounds, or obvious deformity; alignment normal, pulse palpable and equal bilaterally, skin warm, dry, pink. Capillary refill less than 3 seconds. SKIN: Warm, dry NEURO: Alert and oriented x3. PSYCH: Normal mood and affect Course Course Emergency Course: Patient is aware of diagnosis, understands and agrees to treatment plan. Anticipatory guidance given. Patient agrees to follow-up as directed and is aware of reasons to seek care at the emergency department. Portions of this record may have been created with voice recognition software Level of Care: Express Care Visit Vital Signs Vital signs: Vital Signs Temperature 98 F 05/03/24 08:49 Pulse Rate 71 05/03/24 08:49 Respiratory Rate 16 05/03/24 08:49 Blood Pressure 141/78 H 05/03/24 08:49 Pulse Oximetry 100 05/03/24 08:49 Oxygen Delivery Room Air 05/03/24 08:49 Temperature 98 F 05/03/24 08:49 Pulse Rate 71 05/03/24 08:49 Respiratory Rate 16 05/03/24 08:49 Blood Pressure 141/78 H 05/03/24 08:49 Pulse Oximetry 100 05/03/24 08:49 Oxygen Delivery Room Air 05/03/24 08:49 Reviewed MDM - Extremity Injury (Upper) MDM Narrative Medical decision making narrative: Patient's injury and pain appear to be of musculoskeletal nature. No concern for tendon or nerve injury. Discussed physical exam findings and xray. Advised supportive measures and signs/symptoms to go to the ER. Pt is appropriate for outpt treatment and f/u. Differential Diagnosis Differential diagnosis: Likely finger sprain and dislocation of finger Imaging Data Radiologist's impression: Patient: Mary Singh : 2000 MR#: [id number] Age: 24 Acct:[id number] Loc: [facility] ADM Date: 05/03/24Attending Dr: Ordering Physician: Annamaria Bruce APRN Date of Service: 05/03/24 Procedure(s): XR finger 2nd RT min 2V Accession Number(s): [id number] cc: Annamaria Bruce APRN; [facility] ~ EXAMINATION: XR finger 2nd RT min 2V DATE: 05/03/2024 09:05 INDICATION: Pain at the right second middle phalanx post injury 2 weeks prior TECHNIQUE: Dorsal palmar, lateral and 2 oblique views of the right second digit were obtained COMPARISON: 07/15/2013 FINDINGS: Alignment is normal. No fracture. Joint spaces are normal. Soft tissues are unremarkable. IMPRESSION: 1. Negative radiographs of the right second digit Discharge Plan Discharge Clinical Impression: Finger pain, right Patient Disposition: Home, Self-Care Condition: Stable Instructions: Finger Sprain (ED) Additional Instructions: Rest and elevate the right hand; activity as tolerated Apply ice 15-20 minute intervals several times a day Motrin 600mg every 8 hours, alternate with Tylenol 1000mg every 8 hours as needed Follow up with your primary care provider as needed Go to the ER for worsening symptoms or concerns Patient Language: Estonian Prescriptions: No Action aspirin 81 mg tablet,delayed release (DR/EC) PNV cmb#95-ferrous fumarate-FA [] 28 mg iron- 800 mcg tablet PO riboflavin (vitamin B2) 400 mg tablet Follow-up/Referrals: David Navarro MD [Physician] - [facility] [Primary Care Provider] - Time of Disposition: 09:15
--- OUTSIDE RECORDS SUMMARY | 2024-05-10 20:14 | XMS_ITS | Continuity of Care Document ---
Author Organization SIM [facility] RIVERA 14 IM Address 4 [facility] [address] [place] [address] Care Team Providers Care Body Art Technician Name Role Phone GLENNA MAHAJAN Primary Care Provider [phone] Assessment Encounter Date Assessment Date Assessment LastModified by Organization Details LastModified Time 02/02/2024 02/02/2024 Pt's case was discussed w/resident. Documentation was reviewed, and I agree w/resident's note. Dr. Interiano [email or web address] Not available 02/06/2024 13:39:46 Plan of Treatment Reminders Order Date Submit Date Provider Last Modified By Organization Details Last Modified Time Details Appointments ANY 30 025 08:15AM Glenna Mahajan MD Not available Not available Not available Lab None record ed. Referral None record ed. Procedures None record ed. Surgeries None record ed. Imaging None record ed. Medication Orders None record ed. Patient TargetsNo targets recorded. Patient InstructionsNo instructions recorded. Reason for Referral None Reported. Results Created Date Observation Date Name Description Value Unit Range Abnormal Flag Note LastModifiedBy Organization Detail LastModifiedTime 08/11/1908/11/2023 US, obste tric, 1st trime ster No observ ation record ed. [email or web address] Yeh [facility] Scheduling 1 [facility], [address], 08/15/2023 11:34:26 08/28/19 24 08/28/2023 US, obste tric, 1st trime ster No observ ation record ed. [email or web address] Yeh [facility] Scheduling 1 [facility], [address], 08/31/2023 15:24:09 10/13/19 24 10/13/2023 US, obste tric, 1st trime ster No observ ation record ed. [email or web address] Yeh [facility] Scheduling 1 [facility] , [place], [address], 10/17/2023 09:42:21 10/30/19 24 10/13/2023 US, obste tric, 1st trime ster No observ ation record ed. [email or web address] [facility] [address] [facility] [address], [place], [address], 10/31/2023 16:39:12 11/24/19 24 11/24/2023 US, obste tric, mater nal evalu ation + anato my No observ ation record ed. [email or web address] [facility] () [address] [facility], [place], [address], 12/04/2023 13:07:13 11/24/19 24 11/24/2023 US, obste tric, mater nal evalu ation + anato my No observ ation record ed. [email or web address] Not Available 2023 13:07:22 Result Notes None recorded. Problems Name Problem SNOMED Code Status Onset Date Resolution Date Notes Provider Name and Address Organization Details Recorded Time Migraine without aura 46811986 Completed 201903/12/2020 YUNI Hightower NP Attn: Accounting ,[address] [facility], [place], [address] , [facility] 0 10:03:35 Adult health examinat ion Completed 201903/12/2020 YUNI Hightower NP Attn: Accounting ,[address] [facility], [place], [address] , [facility] 0 10:03:21 Loss of hair 058172237 Completed 201903/12/2020 YUNI Hightower NP Attn: Accounting ,[address] [facility], [place], [address] , [facility] 0 10:03:33 Posterio r rhinorrh ea 82358327 Completed 201903/12/2020 YUNI Hightower NP Attn: Accounting ,[address] [facility], [place], [address] , [facility] 0 10:03:39 Facial swelling 103913288 Completed 201903/12/2020 YUNI Hightower NP Attn: Accounting ,[address] [facility], [place], [address] , [facility] 0 10:03:31 Pregnanc y [id number] Completed 202008/02/2021 Glenna Mahajan MD Attn: Accounting ,[address] [facility], [place], [address] , [facility] 4 12:18:22 Family history of Spina bifida 206206223 Completed sister of patient has Spina bifida and CP. Pt referred to [facility] for co manageme nt. Started pt on addition al 400 mcg of folic acid with PNV. TUTU Nguyen Attn: Accounting ,[address] [facility], [place], [address] , [facility] 2 15:29:26 Low back pain in pregnanc y [id number] 06 Completed Pt educated on manageme nt options and importan ce of stretchi ng and massage. Pt opts for PT referral . maternit y belt ordered. Pt educated on warning signs and when to call office. Pt also notified when to go to [facility]. RTC in 4 weeks and call office if issues occur. TUTU Nguyen Attn: Accounting ,[address] [facility], [place], [address] , [facility] 2 15:29:26 RhD negative [id number] Completed aware of need for routine rhoGAM and as needed if issues occur. TUTU Nguyen Attn: Accounting ,[address] [facility], [place], [address] , [facility] 2 15:29:26 Urinary tract infectio us disease 03202476 Completed 03/12/2020 YUNI Hightower NP Attn: Accounting ,[address] [facility], [place], [address] , [place] [facility] 0 10:03:41 Otalgia 24566275 Completed 06/25/2019 Venecia vasquez, [place] - [facility] 0 10:46:29 Morbid obesity 400498573 Completed 03/12/2020 Glenna Mahajan MD Attn: Accounting ,[address] [facility], [place], [address] , [place] [facility] 4 09:49:38 Morbid obesity 865632603 Active 2023 pt educated on risk and discusse d safe lifestyl e modifica tions in pregnanc y. Pt to see obgyn here and co-manag e with amada James MD Attn: Accounting ,[address] [facility], [place], [address] , [place] [facility] 4 13:11:28 Headache 60612878 Active 2023 Glenna Mahajan MD Attn: Accounting ,[address] [facility], [place], [address] , [place] [facility] 4 09:49:50 Pregnanc y 10758475 Completed 202304/25/2024 Glenna Mahajan MD Attn: Accounting ,[address] [place], [address] , [place] [facility] 4 12:18:22 Family history of Spina bifida 619974801 Completed co manage with amada James MD Attn: Accounting ,[address] [place], [address] , [place] [facility] 4 13:11:28 Morbid obesity 781984671 Completed 2023 pt educated on risk and discusse d safe lifestyl e modifica tions in pregnanc y. Pt to see obgyn here and co-manag e with amada James MD Attn: Accounting ,[address] [facility], [place], [address] , [place] [facility] 4 13:11:28 RhD negative 933722590 Completed educated on need of rhoGAM and timing of injectio ns Deyvi James MD Attn: Accounting ,[address] [facility], [place], [address] , [place] [facility] 4 13:11:28 Past pregnanc y history of postpart um hemorrha ge 746638851 Completed co manage with mfm and obgyn Deyvi James MD Attn: Accounting ,[address] [facility], [place], [address] , [place] [facility] 4 13:11:28 Migraine 65381774 Completed [facility] stopped topirama te and start tylenol Deyvi James MD Attn: Accounting ,[address] [facility], [place], [address] , [place] [facility] 4 13:11:28 Proteinu hailee 87854878 Completed Deyvi James MD Attn: Accounting ,[address] [facility], [place], [address] , [place] [facility] 4 13:11:28 Group B Streptoc occus carrier [id number] 03 Completed GBS in urine 09/18/23 Deyvi James MD Attn: Accounting ,[address] [facility], [place], [address] , [place] [facility] 4 13:11:28 Varicell a non-immu ne 139561964 Completed Recommen d vaccine after delivery . Deyvi James MD Attn: Accounting ,[address] [facility], [place], [address] , [place] [facility] 4 13:11:28 Migraine 12450744 Active 2023 Glenna Mahajan MD Attn: Accounting ,[address] [place], [address] , [place] [facility] 4 12:46:34 Vitamin D deficien cy 60852791 Completed 03/12/2020 YUNI Hightower NP Attn: Accounting ,[address] [facility], [place], [address] , [place] [facility] 0 10:03:44 Astigmat ism 38795227 Completed 03/12/2020 YUNI Hightower NP Attn: Accounting ,[address] [facility], [place], [address] , [place] [facility] 0 10:03:46 Caf? ? ? au lait spots 438120535 Completed 06/25/2019 Venecia vasquez, [place] [facility] 0 10:46:04 Acute sinusiti s 02906688 Completed 03/12/2020 YUNI Hightower NP Attn: Accounting ,[address] [facility], [place], [address] , [place] [facility] 0 10:03:19 Headache 40115681 Completed 06/25/2019 Glenna Mahajan MD Attn: Accounting ,[address] [place], [address] , [place] [facility] 4 09:49:50 Problem Notes None recorded. Procedures Surgical History Date Name Laterality Status Provider Name and Address Organization Details Recorded Time 07/25/19 24 Date of Last Pap Smear completed DELPHINE Tyson [place] - [place] 07/25/2023 14:13:14 05/08/19 13 Tonsillectomy completed Amanda Orr MA [place] - [facility] 07/02/2014 10:50:27 05/08/19 13 Adenoidectomy completed Amadna Orr MA [place] - [facility] 07/02/2014 10:50:27 biopsy of skin completed DELPHINE Tyson [place] - [facility] 07/25/2023 14:14:32 Imaging Results None recorded. Procedure Notes None recorded. Medical Equipment None Reported. Allergies No known drug allergies Medications Name Sig Start Date Stop Date Status Note LastModified by Organization Details LastModified Time Prescript ion - Renewal 06/25 completed vitamin D 2 50,000 iu weekly renewal script 07/26/19 18 Not Available Not Available Not Available amoxicill in 500 mg capsule Take 1 capsule every 8 hours by oral route with meals for 10 days. 03/09 completed Not Available Not Available Not Available promethaz ine-DM 6.25 mg-15 mg/5 mL oral syrup 06/25 completed Not Available Not Available Not Available azelastin e 0.05 % eye drops 06/25 completed Not Available Not Available Not Available acetamino phen 325 mg tablet active Not Available Not Available No t Available clindamyc in HCl 300 mg capsule active Not Available Not Available Not Available azithromy liza 250 mg tablet TAKE 2 TABLETS (500 MG) BY ORAL ROUTE ONCE DAILY FOR 1 DAY THEN 1 TABLET (250 MG) BY ORAL ROUTE ONCE DAILY FOR 4 DAYS 06/06 completed Not Available Not Available Not Available ibuprofen 800 mg tablet 06/25 completed Not Available Not Available Not Available sumatript an 100 mg tablet 03/09 completed Not Available Not Available Not Available hydrocodo ne 5 mg-acetam inophen 325 mg tablet 05/26 completed Not Available Not Available Not Available ondansetr on HCl 4 mg tablet 12/17 completed Not Available Not Available Not Available prednison e 20 mg tablet 06/25 completed Not Available Not Available Not Available Tubersol 5 tub. unit/0.1 mL intraderm al injection solution Administ er .1ml interder diego 01/12 completed Not Available Not Available Not Available sumatript an 50 mg tablet Take 1 tablet at onset of headache . Do not take more than 2 tablets in 1 week. 06/25 completed Not Available Not Available Not Available topiramat e 25 mg tablet 03/12 completed Not Available Not Available Not Available bacitraci n zinc 500 unit/gram topical ointment 06/25 completed Not Available Not Available Not Available sulfameth oxazole 800 mg-trimet hoprim 160 mg tablet TAKE 1 TABLET BY MOUTH TWICE DAILY FOR 7 DAYS 12/20 completed Not Available Not Available Not Available aspirin 81 mg tablet,de layed release TAKE 1 TABLET BY MOUTH DAILY active Not Available Not Available No t Available acetamino phen 500 mg tablet TAKE 2 TABLETS BY MOUTH EVERY 6 HOURS NEEDED FOR PAIN 12/20 completed Not Available Not Available Not Available amoxicill in 875 mg tablet TAKE 1 TABLET BY MOUTH TWICE DAILY FOR 7 DAYS 02/01 completed Not Available Not Available Not Available famotidin e 20 mg tablet active Not Available Not Available Not Available magnesium oxide 400 mg (241.3 mg magnesium ) tablet TAKE 1 TABLET BY MOUTH EVERY DAY active Not Available Not Available No t Available cephalexi n 500 mg capsule TAKE 1 CAPSULE BY MOUTH TWICE DAILY FOR 7 DAYS 10/29 completed Not Available Not Available Not Available oseltamiv ir 75 mg capsule 06/25 completed Not Available Not Available Not Available lidocaine 5 % topical patch active Not Available Not Available Not Available polymyxin B sulfate 10,000 unit-trim ethoprim 1 mg/mL eye drops INSTILL 1 DROP INTO AFFECTED EYE(S) BY OPHTHALM IC ROUTE EVERY 6 HOURS - right eye, 7 days 12/17 completed Not Available Not Available Not Available docusate sodium 100 mg capsule TAKE ONE CAPSULE BY MOUTH TWICE DAILY 12/20 completed Not Available Not Available Not Available omeprazol e 20 mg capsule,d elayed release 06/25 completed Not Available Not Available Not Available folic acid 1 mg tablet 12/20 completed Not Available Not Available Not Available mupirocin 2 % topical ointment Apply by topical route to open sores 3x daily. 03/12 completed Not Available Not Available Not Available norethind francisco acetate 1 mg-ethiny l estradiol 20 mcg tablet TAKE 1 TABLET BY MOUTH DAILY 12/20 completed Not Available Not Available Not Available ergocalci ferol (vitamin D2) 1,250 mcg (50,000 unit) capsule TAKE 1 CAPSULE BY MOUTH 1 TIME EVERY WEEK 03/12 completed Not Available Not Available Not Available ibuprofen 600 mg tablet TAKE 1 TABLET BY MOUTH EVERY 6 HOURS NEEDED FOR PAIN active Not Available Not Available No t Available polyethyl rebekah glycol 3350 17 gram/dose oral powder DISSOLVE 1 CAPFUL IN 8 OZ OF FLUID AND DRINK DAILY NEEDED FOR CONSTIPA TION 12/20 completed Not Available Not Available Not Available methylpre dnisolone 4 mg tablets in a dose pack 06/25 completed Not Available Not Available Not Available albuterol sulfate HFA 90 mcg/actua tion aerosol inhaler 03/12 completed Not Available Not Available Not Available hydrocort isone 2.5 % topical ointment APPLY A THIN LAYER TO THE AFFECTED AREA(S) of body BY TOPICAL ROUTE 2 TIMES PER DAY for 1 week. 06/25 completed Not Available Not Available Not Available fluticaso ne propionat e 50 mcg/actua tion nasal spray,[facility] [place] 1 spray every day by intranas al route. 03/12 completed Not Available Not Available Not Available naproxen 500 mg tablet 06/25 completed Not Available Not Available Not Available amoxicill in 875 mg-potass ium clavulana te 125 mg tablet Take 1 tablet every 12 hours by oral route for 10 days. 12/17 completed Not Available Not Available Not Available ciproflox acin 0.3 %-dexamet hasone 0.1 % ear drops,[facility] [address] 4 DROPS IN AFFECTED EAR(S) FOUR TIMES DAILY 12/20 completed Not Available Not Available Not Available topiramat e 50 mg tablet Take 1 tablet twice a day by oral route. active Not Available Not Available No t Available FeroSul 325 mg (65 mg iron) tablet TAKE 1 TABLET BY MOUTH DAILY WITH BREAKFAS T 12/20 completed Not Available Not Available Not Available 28 mg iron-800 mcg tablet TAKE 1 TABLET BY MOUTH ONCE DAILY active Not Available Not Available No t Available Pazeo 0.7 % eye drops 06/25 completed Not Available Not Available Not Available 28 mg-800 mcg tablet Take 1 tablet every day by oral route for 30 days. 12/20 completed Not Available Not Available Not Available riboflavi n (vitamin B2) 400 mg tablet TAKE 1 TABLET BY MOUTH EVERY DAY active Not Available Not Available No t Available BinaxNOW COVID-19 Ag Self Test kit TEST DIRECTED TODAY active Not Available Not Available No t Available aspirin 81 mg capsule Take 1 capsule every day by oral route. 10/29 completed MFM Not Available Not Available Not Available Vitals Date Recorded Body height Body mass index (BMI) Body weight Body temperature Heart rate Respiratory rate Oxygen saturation Oxygen saturation in Arterial blood by Pulse oximetry Systolic blood pressure Diastolic blood pressure Provider Name and Address Organization Details Last Updated DateTime 4 165.1 cm 53.4 kg/m2 105057. 15 g 96.4 [degF] 85 /min 21 /min 98 % 98 % 118 mm[Hg] 82 mm[Hg] DELPHINE Cristina [facility] 4 15:56:55 Social History Question Answer Notes LastModified by Organizat ion Details LastModified Time Tobacco Smoking Status Never Smoker LISY Sanches, [facility] 07/02/2014 10:50:27 What Is Your Level Of Alcohol Consumption? None Information not available 12/20/2021 Animal Exposure? Yes [email or web address] Informat ion not available 07/02/2014 Do You Wear A Helmet When Biking? No [email or web address] Information not available 07/02/2014 Are You Or Have You Been Involved With Bullying? No [email or web address] Information not available 07/02/2014 What Is Your Level Of Caffeine Consumption? Moderate Information not available 05/26/2020 What Type Of Machine Hamper Maker Do You Use? None Information not available 07/02/2014 In The 14 Days Before Symptom Onset, Have You Had Close Contact With A Laboratory-confir med COVID-19 While That Case Was Ill? No Information not available 12/20/2021 In The 14 Days Before Symptom Onset, Have You Had Close Contact With A Person Who Is Under Investigation For COVID-19 While That Person Was Ill? No Information not available 12/20/2021 Have You Been To An Area Known To Be High Risk For COVID-19? No Information not available 12/20/2021 Are You Currently Employed? Yes Information not available 12/20/2021 What Type Of Diet Are You Following? REGULAR [email or web address] Information not available 07/02/2014 Do You Or Have You Ever Used E-cigarettes Or Vape? Never Used Electronic Cigarettes Information not available 06/11/2020 Have There Been Any Changes To Your Family Or Social Situation? No [email or web address] Information no t available 07/02/2014 Are There Any Guns Present In Your Home? No Information not available 07/02/2014 What Is Your Home Situation? Both Parents Lives With Mom, Dad, 1 Brother , 1 Sister [email or web address] Information not available 07/02/2014 Do You Use Insect Repellent Routinely? Yes [email or web address] Information not available 07/02/2014 Car Seat Type Or Seat Belt? Seat Belt [email or web address] Information not available 07/02/2014 Parent Involvement? Both Parents Involved [email or web address] Information not available 07/02/2014 Riding In Car Front Seat? Yes Information not available 07/02/2014 What Was The Date Of Your Most Recent Tobacco Screening? 04/25/2024 Information not available 04/25/2024 How Many Children Do You Have? 1 Information not available 01/31/2022 What Is Your Parents' Marital Status? [email or web address] Information not available 07/02/2014 Pool Exposure No [email or web address] Information not available 07/02/2014 What Is Your Relationship Status? Single Information not available 01/31/2022 What Is The Name Of Your School? [email or web address] Information not available 05/26/2020 Are You Sexually Active? Yes Information not available 01/31/2022 Do You Have Any Siblings? 1 Bro 1 Sis [email or web address] Information not available 07/02/2014 Do You Have Smoke And Carbon Monoxide Detectors In Your Home? Yes [email or web address] Information not available 07/02/2014 Are You Passively Exposed To Smoke? Yes Dad Smoke Outside [email or web address] Information not available 08/28/2014 Do You Or Have You Ever Used Smokeless Tobacco? Never Used Smokeless Tobacco Information not available 06/11/2020 How Much Tobacco Do You Smoke? No Information not available 06/11/2020 What Types Of Sporting Activities Do You Participate In? 0 Information not available 05/26/2020 Do You Use Any Illicit Or Recreational Drugs? No Information not available 12/20/2021 Do You Use Sunscreen Routinely? Yes [email or web address] Information not available 07/02/2014 Has Tobacco Cessation Counseling Been Provided? Yes Information not available 06/06/2022 On What Date Was Tobacco Cessation Counseling Provided? 04/25/2024 Information not available 04/25/2024 Year In School [employer] Informatio n not available 05/26/2020 Do You Or Have You Ever Used Any Other Forms Of Tobacco Or Nicotine? No Information not available 12/20/2021 Sex: Female Functional Status Question Answer Note LastModified by Organization D etails LastModified Time What is your exercise level? Moderate Information not available 05/26/2020 Mental Status None recorded. Family History Relationship Description Onset Age of this Age Resolved Age Notes LastModified by Organization Details LastModified Time Father No current problems or disability [email or web address] Not available 06/25 10:42:25 Mother No current problems or disability [email or web address] Not available 06/25 10:42:25 Notes:04/25/24 Medical History Condition Response Coronary Artery Disease N Other N Atrial Fibrillation N High Blood Pressure N Blood Diseases N Breast Cancer N Lung Disease N Depression N COPD N Blood Clots N Developmental or Behavioral Disorders N Breast Problem N Premature N Anesthesia Complications N Headaches/Migraines N Anxiety Disorder N Muscle, Joint, or Bone Problems N Vision or Eye Problems N Head Injury/Concussion N Infertility N Polyps N Acid Reflux (GERD) N Cancer N Stroke N ADHD N Endometriosis N Bladder or Kidney Problems N High Cholesterol N Liver Disease N Schizophrenia N Headaches N Ear or Hearing Problems N Thyroid Problems N Kidney or Bladder Problems N GI Problems N Acne N Eating Disorder N Skin Problems N Anemia N Constipation N Heart Attack (IN) N Diabetes N Ovarian Cancer N Bedwetting N Blood Transfusions N Heart Problems/Murmur N Seizures/Epilepsy N Abuse/Domestic Violence N Asthma N Allergies N Substance Abuse N Hepatitis N Heart Disease N Pre-Eclampsia N Chicken Pox N Heart Failure N Autism Spectrum Disorder (ASD) N Osteoporosis N Gynecological History Statement/Question Response Abnormal Pap Y Flow Moderate Date of LMP 06/27/2023 STIs/STDs N HPV Vaccine Y Duration of Flow (days) 5 Current Control Method Frequency of Cycle (Q days) 28 Sexually Active? Y Menses Monthly Y Date of Last Pap Smear 07/25/2023 Sexual Problems? N LMP Approximate Obstetrics History GPAL:G 2 P 2 0 0 2 Type Value Full Term 2 Living 2 Total 2 Immunizations Vaccine Type Date Status Note Provider Nam e and Address Organization Details Recorded Time Influenza, split virus, trivalent, preservative 1 completed Glenna Mahajan MD Attn: Accounting[address] [place], [address], [facility] 08/03/2023 09:14:55 Novel [id number], nasal 0 completed Glenna Mahajan MD Attn: Accounting[address] [place], [address], [place] [facility] 08/03/2023 09:14:55 HPV, quadrivalent 4 completed Glenna Mahajan MD Attn: Accounting,[address] [facility], [place], [address] [place] [address], [place] [facility] 08/03/2023 09:14:55 Meningococcal MCV4O 7 completed Glenna Mahajan MD Attn: Accounting,[address] [facility], [place], [address] [place] [address], [place] [facility] 08/03/2023 09:14:55 Influenza, live, quadrivalent, intranasal 4 completed Glenna Mahajan MD Attn: Accounting,[address] [facility], [place], [address] [place] [address], [place] [facility] 08/03/2023 09:14:55 Influenza, live, quadrivalent, intranasal 3 completed Glenna Mahajan MD Attn: Accounting,[address] [facility], [place], [address] [place] [address], [place] [facility] 08/03/2023 09:14:56 Influenza, split virus, quadrivalent, PF 9 completed Glenna Mahajan MD Attn: Accounting,[address] [facility], [place], [address] [place] [address], [place] [facility] 08/03/2023 09:14:56 meningococcal B, OMV 8 completed Not Available [facility] 05/25/2019 02:39:19 meningococcal B, OMV 8 completed Not Available [facility] 05/25/2019 02:35:50 Influenza, split virus, quadrivalent, PF 0 completed Venecia vas[place] [facility] 06/25/2019 11:07:16 Tdap 0 completed Venecia vasquez, [place] - [facility] 06/25/2019 11:07:16 Influenza, split virus, quadrivalent, preservative 1 completed Ny Amaya [place], [place] [facility] 05/27/2020 12:26:13 Influenza, split virus, quadrivalent, PF 2 completed YUNI Hightower NP Attn: Accounting,[address] [facility], [place], [address], [place] [facility] 03/07/2022 09:40:22 DTaP 5 completed Glenna Mahajan MD Attn: Accounting,[address] [facility], [place], [address], [place] [facility] 08/03/2023 09:14:55 DTaP 0 completed Kristie [place] null, [place] [facility] 07/01/2014 10:26:34 DTaP 1 completed Kristie [place] [facility] 07/01/2014 10:26:34 DTaP 9 completed Kristie [place] [facility] 07/01/2014 10:26:34 DTaP 0 completed Kristie [place] [facility] 07/01/2014 10:26:34 Hib, unspecified formulation 0 completed Kristie [place] [facility] 07/01/2014 10:26:58 Hib, unspecified formulation 1 completed Kristie [place] [facility] 07/01/2014 10:26:58 Hib, unspecified formulation 9 completed Kristie [place] [facility] 07/01/2014 10:26:58 Hib, unspecified formulation 0 completed Kristie [place] [facility] 07/01/2014 10:26:58 Hep A, ped/adol, 2 dose 1 completed Kristie [place] [facility] 07/01/2014 10:27:15 Hep A, ped/adol, 2 dose 0 completed Kristie [place] [facility] 07/01/2014 10:27:15 Hep B, adolescent or pediatric 0 completed Kristie [place] [facility] 07/01/2014 10:27:42 Hep B, adolescent or pediatric 0 completed [place]ie [place] [facility] 07/01/2014 10:27:42 Hep B, adolescent or pediatric 1 completed Kristie [place] [facility] 07/01/2014 10:27:42 HPV, unspecified formulation 2 completed rKistie [place] [facility] 07/01/2014 10:28:19 HPV, unspecified formulation 2 completed Kristie [place] [facility] 07/01/2014 10:28:19 HPV, unspecified formulation 4 completed Glenna Mahajan MD Attn: Accounting[address] [place], [address], [place] [facility] 08/03/2023 09:14:55 influenza, unspecified formulation 2 completed Kristie [place] [facility] 07/01/2014 10:28:46 influenza, unspecified formulation 4 completed Kristie [place] [facility] 07/01/2014 10:28:46 influenza, unspecified formulation 1 completed Glenna Mahajan MD Attn: Accounting[address] [place], [address], [place] [facility] 08/03/2023 09:14:55 influenza, unspecified formulation 3 completed Kristie [place] [facility] 07/01/2014 10:28:46 MMR 5 completed Glenna Mahajan MD Attn: [address] [place], [address], [place] [facility] 08/03/2023 09:14:55 MMR 0 completed Kristie [place] [facility] 07/01/2014 10:29:07 meningococcal MCV4, unspecified formulation 1 completed Kristie [place] [facility] 07/01/2014 10:29:20 IPV 0 completed Kristie A[place] [facility] 07/01/2014 10:29:47 IPV 5 completed Glenna Mahajan MD Attn: Accounting[address] [facility], [place], [address], [place] [facility] 08/03/2023 09:14:55 IPV 9 completed Kristie [place] [facility] 07/01/2014 10:29:47 IPV 1 completed Kristie [place] [facility] 07/01/2014 10:29:47 Tdap 0 completed Kristie [place] [facility] 07/01/2014 10:30:01 varicella 0 completed Kristie [place] [facility] 07/01/2014 10:30:20 varicella 0 completed Kristie [place] [facility] 07/01/2014 10:30:20 Past Encounters Encounter ID Performer Location Encounter Start Date Encounter Closed Date Diagnosis/Indication Diagnosis SNOMED-CT Code Diagnosis ICD10 Code [id number] Ramez Interiano MD [place] [address] [address] 02/02/2024 15:39:52 02/07/2024 13:52:24 Viral syndrome 722804720 B34.9 Health Concerns Section Related Observation LastModified by Organization Detai ls LastModified Time None Recorded Concern Status LastModified by Organization Details LastModified Time None Recorded Payers Encounter Date Sequence Insurance Name Policy Number Policy Dorman Covered Member ID Dorman Member ID Guarantor Name 02/02/2024 2 [facility] - DOS ON OR AFTER 20 (MEDICAID REPLACEMENT - HMO) Mary Licona [id number] Mary Singh 02/02/2024 1 [facility] [employer]IGSO (PPO) [id number] Mary Singh [id number] Mary Singh Notes Date Note Type Note Provider Name and Address Organization Details Recorded Time 02/02/2024 text/html 23 yo F presents with sore throat, congestion and now having green drainage and sinus headaches last 4 days. No fever. Has not really been taking anything for the symptoms She is 30.2 weeks and follows with MFM in [place]. Ramez Interiano MD Attn: [address] , [place], [address], [place] - [facility] 02/06/2024 13:40:13 OBGyn Episode Ob Episode Information Episode Created Date Number of Fetuses Patient Bloodtype Patient rh Status Prepregnancy Weight lbs Domestic Partner Domestic Partner Phone Father Name Measurement Psychologist Status 08/09/19 24 1 O Negative CLOSED Fetus Data First Name Last Name Admitted to NICU Weight (g) Sex Living Outcome Pediatric Complications Fetus ID Race Codes Race Delivery Type M [id number] Problems Problem Notes boy yes to circumcision, yes to epidural, unsure of breast or bottle Problem Name Start Date End Date Resolution Snomed Code Not e Past history of hemorrhage [id number] co manage with mfm and obgyn Migraine [id number] mfm stoppe d topiramate and start tylenol Family history of Spina bifida [id number] co manage with mfm Morbid obesity 08/03/2023 [id number] pt e ducated on risk and discussed safe lifestyle modifications in . Pt to see obgyn here and co-manage with mfm RhD negative [id number] educate d on need of rhoGAM and timing of injections Proteinuria [id number] Group B Streptococcus carrier [id number] GBS in urine 09/18/23 Varicella non-immune [id number] Recommend vaccine after delivery. Cici Calculation CICI Calculation Method Initial Cici Date Initial Exam Date Initial Exam Provider Initial Ultrasound Date Last Menstrual Period Date Ultra Sound Weeks Gestation Conception by IVF Embryo Age at Transfer Date of Transfer 04/02/20 23 09/18/19 23 [email or web address] 08/28/2023 06/27/2023 7 Eighteen To Twenty Week Cici Update Ultra Sound Date Fundal Height At Umbil Quickening Date Ultra Sound Latest Weeks Gestation Final Cici Confirmed By Final Cici Confirmed Date Final Cici Date Ultra Sound Latest Days Gestation 08/28/19 24 7 [email or web address] 08/31/2023 04/10/20 24 5 Pre- Flowsheet Flowsheet Date 08/15/2023 Herrera Score Blood Edema Fundus Height Fundus Units Glucose Ketones Leukocytes Nitrite Labor Signs Protein Cervic Dilation Cervic Effacement Cervic Station Type Weight in lbs Pre/Post Dialysis Refused With clothes 309.33620893040 BP Diastolic BP Location Tested BP Systolic BP Type 80 125 sitting Fetus Heart Rate Present Fetus Movement Comments Flowsheet Date 09/18/2023 Herrera Score Blood Edema Fundus Height Fundus Units Glucose Ketones Leukocytes Nitrite Labor Signs Protein Cervic Dilation Cervic Effacement Cervic Station neg none none negative none neg Type Weight in lbs Pre/Post Dialysis Refused With clothes 306.839866125073 BP Diastolic BP Location Tested BP Systolic BP Type 81 138 sitting 85 130 sitting Fetus Heart Rate Present Fetus Movement Comments Pt here for new OB appointme nt. Pt denies any complaints. OB US on 08/28/23 showed follow up US showed single live IUP 7 weeks 5 days and CICI 04/10/2024 and showed subchorionic hemorrhage decreasing in size. Pt denies any vaginal bleeding or pain. Pt educated on care, labs, and precautions. Pt opts for maternit 21 today. Pt has family history of OSB. BMI is 50. Pt will be co-managed with MFM. RTC in 4 weeks to OBGYN and scheduled with MFM. Pt educated on importance of follow up. Flowsheet Date 10/30/2023 Herrera Score Blood Edema Fundus Height Fundus Units Glucose Ketones Leukocytes Nitrite Labor Signs Protein Cervic Dilation Cervic Effacement Cervic Station neg none none trace none neg Type Weight in lbs Pre/Post Dialysis Refused With clothes 308.433141834656 BP Diastolic BP Location Tested BP Systolic BP Type 78 119 sitting Fetus Heart Rate Present A 150's Present Fetus Movement A Yes Comments Patient admits to FM, denies VB, LOF and CTXs. labor precautions given. RTC in 4 weeks. Flowsheet Date 02/02/2024 Herrera Score Blood Edema Fundus Height Fundus Units Glucose Ketones Leukocytes Nitrite Labor Signs Protein Cervic Dilation Cervic Effacement Cervic Station Type Weight in lbs Pre/Post Dialysis Refused With clothes 321.222324954543 BP Diastolic BP Location Tested BP Systolic BP Type 82 R arm 118 sitting Fetus Heart Rate Present Fetus Movement Comments Flowsheet Date 04/25/2024 Herrera Score Blood Edema Fundus Height Fundus Units Glucose Ketones Leukocytes Nitrite Labor Signs Protein Cervic Dilation Cervic Effacement Cervic Station Type Weight in lbs Pre/Post Dialysis Refused With clothes 302.714839490469 BP Diastolic BP Location Tested BP Systolic BP Type 78 L wrist 112 sitting Fetus Heart Rate Present Fetus Movement Comments Menstrual History Last Menstrual Date Menses Monthly On Bcp Conception Prior Menses Frequency Hcg Plus Date Menarche Onset Age 0206/27/2023 Genetic Screening And Infection History Question Response Note Patient's Age Will Be 35 Yea rs Or Older At Estimated Date of Delivery false Thalassemia (Mongolian, Niuean, Mediterranean, Or Background): MCV < 80 false Neural Tube Defect (Meningom yelocele, Spina Bifida, Or Anencephaly) true pt sister Congenital Heart Defect false Down Syndrome false Holger-Sachs (eg, Amish, Cajun, Mal[place]ian-[place]) f alse Vanessa Disease false Sickle Cell Disease Or Trait () false Hemophilia Or Other Blood Disorders false Muscular Dystrophy false Cystic Fibrosis false Krys's Chorea false Mental Retardation/Autism true pt sis ter and brother If Yes, Was Person Tested For Fragile X? false Other Inherited Genetic Or Chromosomal Disorder true pt sister gene 8223 Maternal Metabolic Disorder (eg, Type 1 Diabetes , PKU) false Patient Or Baby's Father Had A Child With Defects Not Listed Above false Recurrent Loss, Or A Stillbirth false Medications (including Suppl ements, Vitamins, Herbs, OTC Drugs), Illicit/Recreational Drugs, Alcohol true Pnv If Yes, Agent(s) And Strength/Dosage false Any Other Genetic History false Live With Someone With TB Or Exposed To TB false Patient Or Partner Has History Of Genital Herpes false Rash Or Viral Illness Since Last Menstrual Perio d false History Of STD, Gonorrhea, Chlamydia, HPV, Syphi lis false Other Infection History false History of HIV false History of Hepatitis false Prior GBS-infected child true Plans and Education First Trimester Discussed Date Discussion Item Discussion Note Discuss ed By 09/18/2023 Anticipated course of care [email or web address] 09/18/2023 Alcohol fernstrn 09/18/2023 Intimate partner violence fe rnstrn 09/18/2023 Environmental/work hazards f ernstrn 09/18/2023 Screening for aneuploidy perfecto nstrn 09/18/2023 Nutrition counseling ; special diet; dietary precautions (mercury, listeriosis) [facility] 09/18/2023 Childbirth classes/hospital facilities [facility] 09/18/2023 HIV and other routine tests [facility] 09/18/2023 Risk factors identif ied by history [facility] 09/18/2023 Weight gain counseling [facility] 09/18/2023 Exercise [facility] 09/18/2023 Teratogens [facility] 09/18/2023 Use of any medicatio ns (including supplements, vitamins, herbs, or OTC drugs) [facility] 09/18/2023 [facility] 09/18/2023 Sexual activity [facility] 09/18/2023 Tobacco/smoking cess ation counseling (ask, advise, assess, assist, and arrange) [facility] 09/18/2023 Illicit/recreational drugs f ernstr 09/18/2023 Dental care [facility] 09/18/2023 Travel [facility] 09/18/2023 Seat belt use [facility] 09/18/2023 Indications for ultrasonography [facility] 09/18/2023 Avoidance of saunas or hot tubs [facility] 09/18/2023 Toxoplasmosis precautions (cats/raw meat) [facility] Second Trimester Discussed Date Discussion Item Discussion Note Discuss ed By Third Trimester Discussed Date Discussion Item Discussion Note Discuss ed By Delivery Information Delivery Date Delivery Type Labor Anesthesia Weeks Gestation Incision Type Labor Labor Length Hrs Delivered By Post Complications Tubal Sterilization Discharge Date Comments 4 Induce d Regional-Ep idural 39 false false Discharge Information Feeding Method Contraceptive Method Maternal HG B and HCT Levels
--- OUTSIDE RECORDS SUMMARY | 2024-05-10 20:14 | XMS_ITS | Data Portability ---
Author Organization [facility] Address [address] [place] [address] Care Team Providers Care Assessment Services Manager Name Role Phone GLENNA MAHAJAN Primary Care Provider Assessment Encounter Date Assessment Date Assessment LastModified by Organization Details LastModified Time 09/18/2023 09/18/2023 see ob episode [email or web address] Not available 09/18/2023 11:26:31 02/02/2024 02/02/2024 Pt's case was discussed w/resident. Documentation was reviewed, and I agree w/resident's note. Dr. Interiano [email or web address] Not available 02/06/2024 13:39:46 Plan of Treatment Reminders Order Date Submit Date Provider Last Modified By Organization Details Last Modified Time Details Appointments ANY 30 2024 08:15A M Glenna Mahajan MD Not available Not available Not available Lab urinalysi s, dipstick 2023 024 [email or web address] In-Office Order, Internal Use Only DO Not Attach Compendium DO Not Attach Compendium, Do Not Delete/merge, [id number] 08/15/2023 11:20:26 HCG, intact + beta subunit, quant, serum or plasma 2023 024 [facility], [address] [facility] [address], [place], [address], 08/16/2023 07:14:23 CMP, serum or plasma 2023 024 [facility], [address] [facility], [place], [address], 09/20/2023 07:14:51 protein, total, 24-hour urine 2023 024 [facility], [address] [place] [address], [place], [address], 09/21/2023 07:16:09 urinalysi s, dipstick 2023 024 [email or web address] In-Office Order, Internal Use Only DO Not Attach Compendium DO Not Attach Compendium, Do Not Delete/merge, [id number] 09/18/2023 13:18:41 CBC w/ auto diff 2023 024 [facility], [address] [place] [address], [place], [address], 09/20/2023 07:14:53 RPR (rapid plasma reagin), serum 2023 024 [facility], [address] [place] [address], [place], [address], 09/20/2023 07:14:57 rubella IgG Ab, quant immunoass ay, serum or plasma 2023 024 [facility], [address] [place] [address], [place], [address], 09/20/2023 07:14:56 HBsAg (hepatiti s B surface Ag), EIA, serum 2023 024 [facility], [address] [place] [address], [place], [address], 09/20/2023 07:14:56 abo group + rh type, blood 2023 024 [facility], [address] [place] [address], [place], [address], 09/20/2023 07:14:55 antibody screen, serum or plasma 2023 024 [facility], [address], [place], [address], 09/20/2023 07:14:54 HIV 1 + 2, meaningfu l use set 2023 024 [facility], [address], [place], [address], 09/20/2023 07:14:58 drug screen, urine 2023 024 [facility], [address], [place], [address], 09/20/2023 07:14:52 hemoglobi n (Hb) electroph oresis, blood 2023 024 [facility], [address], [place], [address], 09/20/2023 07:14:47 varicella zoster virus IgG Ab, QN, IA, serum 2023 024 [facility], [address], [place], [address], 09/20/2023 07:14:59 culture, urine 2023 024 [facility], [address], [place], [address], 09/20/2023 07:15:05 Hepatitis C IgG Ab, qual, serum 2023 024 [facility], [address], [place], [address], 09/20/2023 07:14:50 chlamydia trachomat is + neisseria gonorrhoe ae + trichomon as vaginalis DNA panel, TIFFANIE+probe , unspecifi ed specimen 2023 024 [facility], [address], [place], [address], 09/20/2023 07:15:07 aneuploid y risk and X & Y analysis, chromosom e specific circulati ng cell free (CCF) DNA, maternal serum 2023 024 [facility], [address] [place] [address], [place], [address], 09/22/2023 11:16:55 TSH + free T4, serum 2023 024 [facility], [address] [facility] [address], [place], [address], 10/31/2023 16:13:10 urinalysi s, dipstick 2023 024 [email or web address] In-Office Order, Internal Use Only DO Not Attach Compendium DO Not Attach Compendium, Do Not Delete/merge, [id number] 10/30/2023 12:03:13 afp (alpha-fe toprotein ) panel, maternal screen, serum 2023 024 [facility], [address] [facility] [address], [place], [address], 11/01/2023 07:16:12 Referral maternal & medicine referral - pt's sister gene 8223; pt has an elevated urine protein 2023 024 [facility], [facility] [place], [address], 10/17/2023 08:43:57 Procedures None recorded. Surgeries None recorded. Imaging US, obstetric , 1st trimester - 2 week follow up 2023 024 [facility], [address], [place], [address], 08/28/2023 14:55:32 Medication Orders topiramat e 50 mg tablet 2023 024 [id number], [address], [place], [place], [id number], 04/25/2024 12:47:50 Patient TargetsNo targets recorded. Patient Instructions Encounter Date Encounter Id Patient Instructions Last Modified By Organization Details Last Modified Time 10/30/2023 [id number] hair loss from alopecia areata: care instructions jean [email or web address] Not available 10/30/2023 12:03:12 When You Want to Lose Weight: Care Instructions [email or web address] Not available 10/30/2023 13:11:34 04/25/2024 [id number] A healthy lifestyle: care instructions [email or web address] Not available 04/25/2024 12:47:43 I was present in the office and available during the visit. I discussed the patient? s presentation, findings, assessment and plan with the resident during or immediately after the time of service. I agree with the resident? s findings, assessment, and plan as documented in the note above. Lonnie Castorena MD. [facility] [email or web address] Not available 04/29/2024 14:38:15 Reason for Referral Maternal & Medicine Re ferral for Body mass index 40+ - severely obese co manage pt's sister gene 8223; pt has an elevated urine protein Referring Physician: Janett Robles, ACID REGENERATOR, Encounter Date: 09/18/2023 Results Created Date Observation Date Name Description Value Unit Range Abnormal Flag Note LastModifiedBy Organization Detail LastModifiedTime 07/25/19 24 07/26/2023 TSH+F REE T4 TSH 1.580 uIU/m L 0.450- 4.500 Not Available [facility] ([facility]) [address] [place], [address], 07/26/2023 16:14:20 07/25/19 24 07/26/2023 TSH+F REE T4 T4,free(dire ct) 1.03 NG/dL 0.82-1 .77 Not Available [facility] ([facility]) [address] [place], [address], 07/26/2023 16:14:20 07/25/19 24 07/26/2023 LIPID PANEL cholesterol, total 160 mg/dL 100-19 9 Not Available [facility] ([facility]) [address] [place], [address], 07/26/2023 16:14:20 07/25/19 24 07/26/2023 LIPID PANEL triglyceride s 76 mg/dL 0-149 Not Available [facility]) [address] [place], [address], 07/26/2023 16:14:20 07/25/19 24 07/26/2023 LIPID PANEL HDL cholesterol 50 mg/dL >39 Not Available [facility]) [address] [place], [address], 07/26/2023 16:14:20 07/25/19 24 07/26/2023 LIPID PANEL VLDL cholesterol hector 15 mg/dL 5-40 Not Available [facility] ([facility]) [address] [place], [address], 07/26/2023 16:14:20 07/25/19 24 07/26/2023 LIPID PANEL LDL chol calc (nih) 95 mg/dL 0-99 Not Available [facility] ([facility]) [address] [place], [address], 07/26/2023 16:14:20 07/25/19 24 07/26/2023 COMP. METAB OLIC PANEL (14) glucose 78 mg/dL 70-99 Not Available [facility] ([facility]) [address] [place], [address], 07/26/2023 16:14:21 07/25/19 24 07/26/2023 COMP. METAB OLIC PANEL (14) BUN 8 mg/dL 6-20 Not Available [facility] ([facility]) [address] [place], [address], 07/26/2023 16:14:21 07/25/19 24 07/26/2023 COMP. METAB OLIC PANEL (14) creatinine 0.50 mg/dL 0.57-1 .00 below low normal Not Available [facility] ([facility]) [address], [place], [address], 07/26/2023 16:14:21 07/25/19 24 07/26/2023 COMP. METAB OLIC PANEL (14) eGFR 134 mL/mi n/1.7 3 >59 Not Available [facility] ([facility]) [address], [place], [address], 07/26/2023 16:14:21 07/25/19 24 07/26/2023 COMP. METAB OLIC PANEL (14) BUN/creatini ne ratio 16 9-23 Not Available [facility] ([facility]) [address] [facility], [place], [address], 07/26/2023 16:14:21 07/25/19 24 07/26/2023 COMP. METAB OLIC PANEL (14) sodium 140 mmol/ L 134-14 4 Not Available [facility] ([facility]) [address] [facility], [place], [address], 07/26/2023 16:14:21 07/25/19 24 07/26/2023 COMP. METAB OLIC PANEL (14) potassium 4.0 mmol/ L 3.5-5. 2 Not Available [facility] ([place] [facility]) [address] [facility], [place], [address], 07/26/2023 16:14:21 07/25/19 24 07/26/2023 COMP. METAB OLIC PANEL (14) chloride 104 mmol/ L 96-106 Not Available [facility] ([facility] [facility]) [address] [facility], [place], [address], 07/26/2023 16:14:21 07/25/19 24 07/26/2023 COMP. METAB OLIC PANEL (14) carbon dioxide, total 20 mmol/ L 20-29 Not Available [facility] ([facility]) [address] [facility], [place], [address], 07/26/2023 16:14:21 07/25/19 24 07/26/2023 COMP. METAB OLIC PANEL (14) calcium 9.5 mg/dL 8.7-10 .2 Not Available [facility] ([facility]) [address] [facility], [place], [address], 07/26/2023 16:14:21 07/25/19 24 07/26/2023 COMP. METAB OLIC PANEL (14) protein, total 7.0 g/dL 6.0-8. 5 Not Available [facility] ([facility]) [address] [facility], [place], [address], 07/26/2023 16:14:21 07/25/19 24 07/26/2023 COMP. METAB OLIC PANEL (14) albumin 4.5 g/dL 4.0-5. 0 Not Available [facility] ([facility]) [address] [facility], [place], [address], 07/26/2023 16:14:21 07/25/19 24 07/26/2023 COMP. METAB OLIC PANEL (14) globulin, total 2.5 g/dL 1.5-4. 5 Not Available [facility] ([facility]) [address] [facility], [place], [address], 07/26/2023 16:14:21 07/25/19 24 07/26/2023 COMP. METAB OLIC PANEL (14) A/G ratio 1.8 1.2-2. 2 Not Available [facility] ([facility]) [address] [facility] [place], [address], 07/26/2023 16:14:21 07/25/19 24 07/26/2023 COMP. METAB OLIC PANEL (14) bilirubin, total 0.3 mg/dL 0.0-1. 2 Not Available [facility] ([facility]) [address] [facility], [place], [address], 07/26/2023 16:14:21 07/25/19 24 07/26/2023 COMP. METAB OLIC PANEL (14) alkaline phosphatase 80 IU/L 44-121 Not Available [facility]) [address] [place], [address], 07/26/2023 16:14:21 07/25/19 24 07/26/2023 COMP. METAB OLIC PANEL (14) AST (SGOT) 15 IU/L 0-40 Not Available [facility] ([facility]) [address] [facility], [place], [address], 07/26/2023 16:14:21 07/25/19 24 07/26/2023 COMP. METAB OLIC PANEL (14) ALT (SGPT) 19 IU/L 0-32 Not Available [facility] ([facility]) [address] [place], [address], 07/26/2023 16:14:21 07/25/19 24 07/26/2023 HEMOG LOBIN A1C hemoglobin A1C 5.3 % 4.8-5. 6 Predi abete s: 5.7 - 6.4 Diabe zeynep: >6.4 Glyce solitario contr ol for adult s with diabe zeynep: <7.0 Not Available [facility] ([facility]) [address] [place], [address], 07/26/2023 16:14:22 07/25/19 24 07/26/2023 CBC WITH DIFFE RENTI AL/PL ATELE T WBC 8.3 x10e3 /uL 3.4-10 .8 Not Available [facility] ([facility]) [address] [place], [address], 07/26/2023 16:14:23 07/25/19 24 07/26/2023 CBC WITH DIFFE RENTI AL/PL ATELE T RBC 4.85 x10e6 /uL 3.77-5 .28 Not Available [facility] ([facility]) [address] [place], [address], 07/26/2023 16:14:23 07/25/19 24 07/26/2023 CBC WITH DIFFE RENTI AL/PL ATELE T hemoglobin 14.4 g/dL 11.1-1 5.9 Not Available [facility] ([facility]) [address] [facility], [place], [address], 07/26/2023 16:14:23 07/25/19 24 07/26/2023 CBC WITH DIFFE RENTI AL/PL ATELE T hematocrit 42.9 % 34.0-4 6.6 Not Available [facility] ([facility]) [address] [facility], [place], [address], 07/26/2023 16:14:23 07/25/19 24 07/26/2023 CBC WITH DIFFE RENTI AL/PL ATELE T MCV 89 fL 79-97 Not Available [facility] ([facility]) [address] [facility], [place], [address], 07/26/2023 16:14:23 07/25/19 24 07/26/2023 CBC WITH DIFFE RENTI AL/PL ATELE T MCH 29.7 pg 26.6-3 3.0 Not Available [facility] ([facility]) [address] [place], [address], 07/26/2023 16:14:23 07/25/19 24 07/26/2023 CBC WITH DIFFE RENTI AL/PL ATELE T MCHC 33.6 g/dL 31.5-3 5.7 Not Available [facility] ([facility]) [address] [place], [address], 07/26/2023 16:14:23 07/25/19 24 07/26/2023 CBC WITH DIFFE RENTI AL/PL ATELE T RDW 12.1 % 11.7-1 5.4 Not Available [facility] ([facility]) [address] [place], [address], 07/26/2023 16:14:23 07/25/19 24 07/26/2023 CBC WITH DIFFE RENTI AL/PL ATELE T platelets 306 x10e3 /uL 150-45 0 Not Available [facility] ([facility]) [address] [facility], [place], [address], 07/26/2023 16:14:23 07/25/19 24 07/26/2023 CBC WITH DIFFE RENTI AL/PL ATELE T neutrophils 68 % notest ab. Not Available [facility] ([facility]) [address] [facility], [place], [address], 07/26/2023 16:14:23 07/25/19 24 07/26/2023 CBC WITH DIFFE RENTI AL/PL ATELE T lymphs 22 % notest ab. Not Available [facility] ([facility]) [address] [facility], [place], [address], 07/26/2023 16:14:23 07/25/19 24 07/26/2023 CBC WITH DIFFE RENTI AL/PL ATELE T monocytes 8 % notest ab. Not Available [facility] ([facility]) [address] [facility], [place], [address], 07/26/2023 16:14:23 07/25/19 24 07/26/2023 CBC WITH DIFFE RENTI AL/PL ATELE T eos 2 % notest ab. Not Available [facility] ([facility]) [address] [facility], [place], [address], 07/26/2023 16:14:23 07/25/19 24 07/26/2023 CBC WITH DIFFE RENTI AL/PL ATELE T basos 0 % notest ab. Not Available [facility] ([facility]) [address] [facility], [place], [address], 07/26/2023 16:14:23 07/25/19 24 07/26/2023 CBC WITH DIFFE RENTI AL/PL ATELE T neutrophils (absolute) 5.6 x10e3 /uL 1.4-7. 0 Not Available [facility] ([facility]) [address] [facility], [place], [address], 07/26/2023 16:14:23 07/25/19 24 07/26/2023 CBC WITH DIFFE RENTI AL/PL ATELE T lymphs (absolute) 1.8 x10e3 /uL 0.7-3. 1 Not Available [facility] ([facility]) [address] [place], [address], 07/26/2023 16:14:23 07/25/19 24 07/26/2023 CBC WITH DIFFE RENTI AL/PL ATELE T monocytes(ab solute) 0.7 x10e3 /uL 0.1-0. 9 Not Available [facility] ([facility]) [address] [facility], [place], [address], 07/26/2023 16:14:23 07/25/19 24 07/26/2023 CBC WITH DIFFE RENTI AL/PL ATELE T eos (absolute) 0.2 x10e3 /uL 0.0-0. 4 Not Available [facility] ([facility]) [address] [facility], [place], [address], 07/26/2023 16:14:23 07/25/19 24 07/26/2023 CBC WITH DIFFE RENTI AL/PL ATELE T baso (absolute) 0.0 x10e3 /uL 0.0-0. 2 Not Available [facility] ([facility]) [address] [place], [address], 07/26/2023 16:14:23 07/25/19 24 07/26/2023 CBC WITH DIFFE RENTI AL/PL ATELE T immature granulocytes 0 % notest ab. Not Available [facility] ([facility]) [address] [place], [address], 07/26/2023 16:14:23 07/25/19 24 07/26/2023 CBC WITH DIFFE RENTI AL/PL ATELE T immature grans (abs) 0.0 x10e3 /uL 0.0-0. 1 Not Available [facility] ([facility]) [address] [facility], [place], [address], 07/26/2023 16:14:23 07/25/19 24 07/27/2023 IGP,C TNGTV ,RFX APTIM A HPV ASCU chlamydia, nuc. acid amp Negati ve negati ve Not Available [facility] ([facility]) [address] [place], [address], 07/28/2023 11:14:57 07/25/19 24 07/27/2023 IGP,C TNGTV ,RFX APTIM A HPV ASCU gonococcus, nuc. acid amp Negati ve negati ve Not Available [facility] ([facility]) [address] [facility], [place], [address], 07/28/2023 11:14:57 07/25/19 24 07/27/2023 IGP,C TNGTV ,RFX APTIM A HPV ASCU trich vag by TIFFANIE Negati ve negati ve Not Available [facility] ([facility]) [address] [place], [address], 07/28/2023 11:14:57 07/25/19 24 07/28/2023 IGP,C TNGTV ,RFX APTIM A HPV ASCU diagnosis: Commen t NEGAT VIRGIL FOR INTRA EPITH ELIAL LESIO N OR MALVANE BATRES . Not Available [facility] ([facility]) [address] [place], [address], 07/28/2023 11:14:57 07/25/19 24 07/28/2023 IGP,C TNGTV ,RFX APTIM A HPV ASCU specimen adequacy: Commen t Satis facto ry for evalu ation . Endoc ervic al and/o r squam ous metap lasti c cells (endo cervi hector compo nent) are prese nt. Not Available [facility] ([facility]) [address] [place], [address], 07/28/2023 11:14:57 07/25/19 24 07/28/2023 IGP,C TNGTV ,RFX APTIM A HPV ASCU clinician provided ICD10: Carlota medrano Z01.4 19 Z68.4 1 Not Available [facility] ([facility]) [address] [place], [address], 07/28/2023 11:14:57 07/25/19 24 07/28/2023 IGP,C TNGTV ,RFX APTIM A HPV ASCU performed by: Anne Keys (ASCP ) Not Available [facility] ([facility]) [address] [place], [address], 07/28/2023 11:14:57 07/25/19 24 07/28/2023 IGP,C TNGTV ,RFX APTIM A HPV ASCU . . Not Available [facility] ([facility]) [address] [place], [address], 07/28/2023 11:14:57 07/25/19 24 07/28/2023 IGP,C TNGTV ,RFX APTIM A HPV ASCU note: Carlota medrano The Pap smear is a scree pati test desig roxana to aid in the detec tion of shimon ligna nt and malig nant condi tions of the uteri ne cervi x. It is not a diagn ostic proce dure and shoul d not be used as the sole means of detec ting cervi hector cance r. Both false -posi tive and false -nega tive repor ts do occur . Not Available [facility] ([facility]) [address] [place], [address], 07/28/2023 11:14:57 07/25/19 24 07/28/2023 IGP,C TNGTV ,RFX APTIM A HPV ASCU test methodology: Commen t This liqui d based ThinP rep(R ) pap test was scree roxana with the use of an image guide david ybarra. Not Available [facility] ([facility]) [address] [facility], [place], [address], 07/28/2023 11:14:57 07/25/19 24 07/28/2023 IGP,C TNGTV ,RFX APTIM A HPV ASCU . Commen t The HPV DNA refle x crite hailee were not met with this speci men resul t there fore, no HPV testi ng was perfo rmed. Not Available [facility] ([facility]) [address] [facility], [place], [address], 07/28/2023 11:14:57 08/03/19 24 08/03/2023 urina lysis , dipst ick Leukocytes Negati ve Not Available In-Office Order Internal Use Only DO Not Attach Compendium DO Not Attach Compendium, Do Not Delete/merge, [id number] 08/03/2023 10:17:42 08/03/19 24 08/03/2023 urina lysis , dipst ick Nitrite negati ve Not Available In-Office Order Internal Use Only DO Not Attach Compendium DO Not Attach Compendium, Do Not Delete/merge, [id number] 08/03/2023 10:17:42 08/03/19 24 08/03/2023 urina lysis , dipst ick Urobilinogen .2 Not Available In-Of fice Order Internal Use Only DO Not Attach Compendium DO Not Attach Compendium, Do Not Delete/merge, [id number] 08/03/2023 10:17:42 08/03/19 24 08/03/2023 urina lysis , dipst ick Protein Negati ve Not Available In-Office Order Internal Use Only DO Not Attach Compendium DO Not Attach Compendium, Do Not Delete/merge, 08/03/2023 10:17:42 08/03/19 24 08/03/2023 urina lysis , dipst ick pH 7.0 Not Available In-Office Order Internal Use Only DO Not Attach Compendium DO Not Attach Compendium, Do Not Delete/merge, 08/03/2023 10:17:42 08/03/19 24 08/03/2023 urina lysis , dipst ick Blood Negati ve Not Available In-Office Order Internal Use Only DO Not Attach Compendium DO Not Attach Compendium, Do Not Delete/merge, 08/03/2023 10:17:42 08/03/19 24 08/03/2023 urina lysis , dipst ick Specific [place] 1.020 Not Available In-Off ice Order Internal Use Only DO Not Attach Compendium DO Not Attach Compendium, Do Not Delete/merge, 08/03/2023 10:17:42 08/03/19 24 08/03/2023 urina lysis , dipst ick Ketone Negati ve Not Available In-Office Order Internal Use Only DO Not Attach Compendium DO Not Attach Compendium, Do Not Delete/merge, 08/03/2023 10:17:42 08/03/19 24 08/03/2023 urina lysis , dipst ick Bilirubin Negati ve Not Available In-Office Order Internal Use Only DO Not Attach Compendium DO Not Attach Compendium, Do Not Delete/merge, 08/03/2023 10:17:42 08/03/19 24 08/03/2023 urina lysis , dipst ick Glucose Negati ve Not Available In-Office Order Internal Use Only DO Not Attach Compendium DO Not Attach Compendium, Do Not Delete/merge, 08/03/2023 10:17:42 08/03/19 24 08/03/2023 urina lysis , dipst ick Appearance Clear Not Available In-Offi ce Order Internal Use Only DO Not Attach Compendium DO Not Attach Compendium, Do Not Delete/merge, 08/03/2023 10:17:42 08/03/19 24 08/03/2023 urina lysis , dipst ick Color Yellow Not Available In-Office Order Internal Use Only DO Not Attach Compendium DO Not Attach Compendium, Do Not Delete/merge, [id number] 08/03/2023 10:17:42 08/03/19 24 08/03/2023 pregn pretty test, urine HCG positi ve Not Available In-Office Order Internal Use Only DO Not Attach Compendium DO Not Attach Compendium, Do Not Delete/merge, [id number] 08/03/2023 09:48:43 08/04/19 24 08/05/2023 HCG,B ETA SUBUN IT, QNT HCG,beta subunit,qnt, serum 257 mIU/m L Femal e (Non- pregn ant) 0 - 5 (Post menop ausal ) 0 - 8 Femal e (Preg nant) Weeks of Gesta tion 3 6 - 71 4 10 - 750 5 217 - 7138 6 158 - 78142 7 3697 -1635 63 8 05154 -1495 71 9 52555 -1514 10 10 50868 -1869 77 12 72703 -2106 12 14 28392 - 06736 15 67293 - 33771 16 9040 - 10792 17 8175 - 59440 18 8099 - 21315 Gregorio ECLIA metho dolog y Not Available [facility] ([facility]) [facility], [place], [address], 08/05/2023 08:19:10 08/08/19 24 08/09/2023 HCG,B ETA SUBUN IT, QNT HCG,beta subunit,qnt, serum 1490 mIU/m L Femal e (Non- pregn ant) 0 - 5 (Post menop ausal ) 0 - 8 Femal e (Preg nant) Weeks of Gesta tion 3 6 - 71 4 10 - 750 5 217 - 7138 6 158 - 45990 7 3697 -1635 63 8 95899 -1495 71 9 27851 -1514 10 10 81590 -1869 77 12 39651 2106 12 14 84349 - 32748 15 74555 - 35216 16 9040 - 86386 17 8175 - 69452 18 8099 - 91288 Gregorio ECLIA metho dolog y Not Available [facility] ([facility]) [address] [place], [address], 08/09/2023 04:08:57 08/15/19 24 08/16/2023 HCG,B ETA SUBUN IT, QNT HCG,beta subunit,qnt, serum 7752 mIU/m L Femal e (Non- pregn ant) 0 - 5 (Post menop ausal ) 0 - 8 Femal e (Preg nant) Weeks of Gesta tion 3 6 - 71 4 10 - 750 5 857 - 5608 6 742 - 03385 7 4896 -6858 63 8 75548 -7634 71 9 06165 -6288 10 10 44201 -8975 77 12 19733 -4368 12 14 24315 - 86171 15 91665 - 57449 16 8644 - 35096 17 9508 - 68671 18 8677 - 76325 Gregorio ECLIA metho dolog y Not Available [facility] [facility] [address] [facility], [place], [address], 08/16/2023 07:14:23 08/15/19 24 08/15/2023 urina lysis , dipst ick Leukocytes Negati ve Not Available In-Office Order Internal Use Only DO Not Attach Compendium DO Not Attach Compendium, Do Not Delete/merge, [id number] 08/15/2023 11:15:32 08/15/19 24 08/15/2023 urina lysis , dipst ick Nitrite negati ve Not Available In-Office Order Internal Use Only DO Not Attach Compendium DO Not Attach Compendium, Do Not Delete/merge, [id number] 08/15/2023 11:15:32 08/15/19 24 08/15/2023 urina lysis , dipst ick Urobilinogen .2 Not Available In-Of fice Order Internal Use Only DO Not Attach Compendium DO Not Attach Compendium, Do Not Delete/merge, [id number] 08/15/2023 11:15:32 08/15/19 24 08/15/2023 urina lysis , dipst ick Protein Negati ve Not Available In-Office Order Internal Use Only DO Not Attach Compendium DO Not Attach Compendium, Do Not Delete/merge, 08/15/2023 11:15:32 08/15/19 24 08/15/2023 urina lysis , dipst ick pH 7.0 Not Available In-Office Order Internal Use Only DO Not Attach Compendium DO Not Attach Compendium, Do Not Delete/merge, 08/15/2023 11:15:32 08/15/19 24 08/15/2023 urina lysis , dipst ick Blood Negati ve Not Available In-Office Order Internal Use Only DO Not Attach Compendium DO Not Attach Compendium, Do Not Delete/merge, 08/15/2023 11:15:32 08/15/19 24 08/15/2023 urina lysis , dipst ick Specific [place] 1.015 Not Available In-Off ice Order Internal Use Only DO Not Attach Compendium DO Not Attach Compendium, Do Not Delete/merge, 08/15/2023 11:15:32 08/15/19 24 08/15/2023 urina lysis , dipst ick Ketone Negati ve Not Available In-Office Order Internal Use Only DO Not Attach Compendium DO Not Attach Compendium, Do Not Delete/merge, 08/15/2023 11:15:32 08/15/19 24 08/15/2023 urina lysis , dipst ick Bilirubin Negati ve Not Available In-Office Order Internal Use Only DO Not Attach Compendium DO Not Attach Compendium, Do Not Delete/merge, 08/15/2023 11:15:32 08/15/19 24 08/15/2023 urina lysis , dipst ick Glucose Negati ve Not Available In-Office Order Internal Use Only DO Not Attach Compendium DO Not Attach Compendium, Do Not Delete/merge, 08/15/2023 11:15:32 08/15/19 24 08/15/2023 urina lysis , dipst ick Appearance Clear Not Available In-Offi ce Order Internal Use Only DO Not Attach Compendium DO Not Attach Compendium, Do Not Delete/merge, 08/15/2023 11:15:32 08/15/19 24 08/15/2023 urina lysis , dipst ick Color Pale Yellow Not Available In-Office Order Internal Use Only DO Not Attach Compendium DO Not Attach Compendium, Do Not Delete/merge, [id number] 08/15/2023 11:15:32 08/18/19 24 08/19/2023 HCG,B ETA SUBUN IT, QNT HCG,beta subunit,qnt, serum 17777 mIU/m L Femal e (Non- pregn ant) 0 - 5 (Post menop ausal ) 0 - 8 Femal e (Preg nant) Weeks of Gesta tion 3 6 - 71 4 10 - 750 5 013 - 7708 6 035 - 20977 7 1546 -3017 63 8 88921 -4074 71 9 77388 -9330 10 10 41683 -2358 77 12 33016 -1925 12 14 24108 - 08587 15 69679 - 92480 16 3207 - 72111 17 5780 - 93513 18 5009 - 65039 Resul ts confi rmed on dilut ion. Gregorio ECLIA metho dolog y Not Available [facility] ([facility]) [address] [place], [address], 08/19/2023 11:16:31 09/18/19 24 09/19/2023 HGB FRACT IONAT ION CASCA DE HGB F 0.0 % 0.0-2. 0 Not Available [facility] ([facility]) [address] [place], [address], 09/20/2023 07:14:47 09/18/19 24 09/19/2023 HGB FRACT IONAT ION CASCA DE HGB A 97.3 % 96.4-9 8.8 Not Available [facility] ([facility]) [address] [place], [address], 09/20/2023 07:14:47 09/18/19 24 09/19/2023 HGB FRACT IONAT ION CASCA DE HGB A2 2.7 % 1.8-3. 2 Not Available [facility] ([facility]) [address] [place], [address], 09/20/2023 07:14:47 09/18/19 24 09/19/2023 HGB FRACT IONAT ION CASCA DE HGB S 0.0 % 0.0 Not Available [facility] ([facility]) [address] [facility], [place], [address], 09/20/2023 07:14:47 09/18/19 24 09/19/2023 HGB FRACT IONAT ION CASCA DE interpretati on: COMMEN T Sara l hemog lobin prese nt; no hemog lobin varia nt or beta thala ssemi a ident ified . Note: Alpha thala ssemi a may not be detec polly by the Hgb Fract ionat ion [place] panel . If alpha thala ssemi a is suspe cted, [facility] offer s Alpha -Thal assem ia DNA Alvaro sis (#[id number]). Not Available [facility] ([facility]) [address] [facility], [place], [address], 09/20/2023 07:14:47 09/18/19 24 09/19/2023 INTER PRETA TION: interpretati on: Commen t Not infec polly with HCV unles s early or acute infec tion is suspe cted (whic h may be delay ed in an immun ocomp romis ed indiv idual ), or other evide nce exist s to indic ate HCV infec tion. Not Available [facility] ([facility]) [address] [facility], [place], [address], 09/20/2023 07:14:49 09/18/19 24 09/19/2023 HCV ANTIB CHASE RFX TO QUANT PCR HCV Ab NON REACTI VE nonrea ctive Not Available [facility] ([facility]) [address] [facility], [place], [address], 09/20/2023 07:14:49 09/18/19 24 09/19/2023 COMP. METAB OLIC PANEL (14) glucose 78 mg/dL 70-99 Not Available [facility] ([facility]) [address] [facility] [place], [address], 09/20/2023 07:14:50 09/18/19 24 09/19/2023 COMP. METAB OLIC PANEL (14) BUN 6 mg/dL 6-20 Not Available [facility] ([facility]) [address] [facility] [place], [address], 09/20/2023 07:14:50 09/18/19 24 09/19/2023 COMP. METAB OLIC PANEL (14) creatinine 0.43 mg/dL 0.57-1 .00 below low normal Not Available [facility] ([facility]) [address] [facility] [place], [address], 09/20/2023 07:14:50 09/18/19 24 09/19/2023 COMP. METAB OLIC PANEL (14) eGFR 139 mL/mi n/1.7 3 >59 Not Available [facility] ([facility]) [address] [facility] [place], [address], 09/20/2023 07:14:50 09/18/19 24 09/19/2023 COMP. METAB OLIC PANEL (14) BUN/creatini ne ratio 14 9-23 Not Available [facility] ([facility]) [address] [facility] [place], [address], 09/20/2023 07:14:50 09/18/19 24 09/19/2023 COMP. METAB OLIC PANEL (14) sodium 136 mmol/ L 134-14 4 Not Available [facility] ([facility]) [address] [facility] [place], [address], 09/20/2023 07:14:50 09/18/19 24 09/19/2023 COMP. METAB OLIC PANEL (14) potassium 4.1 mmol/ L 3.5-5. 2 Not Available [facility] ([facility]) [address] [facility] [place], [address], 09/20/2023 07:14:50 09/18/19 24 09/19/2023 COMP. METAB OLIC PANEL (14) chloride 103 mmol/ L 96-106 Not Available [facility] ([facility]) [address] [place], [address], 09/20/2023 07:14:50 09/18/19 24 09/19/2023 COMP. METAB OLIC PANEL (14) carbon dioxide, total 19 mmol/ L 20-29 below low normal Not Available [facility] ([facility]) [address], [place], [address], 09/20/2023 07:14:50 09/18/19 24 09/19/2023 COMP. METAB OLIC PANEL (14) calcium 9.2 mg/dL 8.7-10 .2 Not Available [facility] ([facility]) [address] [place], [address], 09/20/2023 07:14:50 09/18/19 24 09/19/2023 COMP. METAB OLIC PANEL (14) protein, total 6.5 g/dL 6.0-8. 5 Not Available [facility] ([facility]) [address] [place], [address], 09/20/2023 07:14:50 09/18/19 24 09/19/2023 COMP. METAB OLIC PANEL (14) albumin 4.1 g/dL 4.0-5. 0 Not Available [facility] ([facility]) [address] [place], [address], 09/20/2023 07:14:50 09/18/19 24 09/19/2023 COMP. METAB OLIC PANEL (14) globulin, total 2.4 g/dL 1.5-4. 5 Not Available [facility] ([facility]) [address] [place], [address], 09/20/2023 07:14:50 09/18/19 24 09/19/2023 COMP. METAB OLIC PANEL (14) A/G ratio 1.7 1.2-2. 2 Not Available [facility] ([facility]) [address] [place], [address], 09/20/2023 07:14:50 09/18/19 24 09/19/2023 COMP. METAB OLIC PANEL (14) bilirubin, total 0.3 mg/dL 0.0-1. 2 Not Available [facility] ([facility]) [address] [place], [address], 09/20/2023 07:14:50 09/18/19 24 09/19/2023 COMP. METAB OLIC PANEL (14) alkaline phosphatase 67 IU/L 44-121 Not Available [facility]) [address] [place], [address], 09/20/2023 07:14:50 09/18/19 24 09/19/2023 COMP. METAB OLIC PANEL (14) AST (SGOT) 12 IU/L 0-40 Not Available [facility] ([facility]) [address] [place], [address], 09/20/2023 07:14:50 09/18/19 24 09/19/2023 COMP. METAB OLIC PANEL (14) ALT (SGPT) 19 IU/L 0-32 Not Available [facility] ([facility]) [address] [place], [address], 09/20/2023 07:14:50 09/18/19 24 09/19/2023 [id number] 9 10 DRUG- BUND amphetamines , urine NEGATI VE NG/mL cutoff =1000 Amphe tamin e test inclu hector Amphe tamin e and Metha mphet amine . Not Available [facility] ([facility]) [address] [place], [address], 09/20/2023 07:14:51 09/18/19 24 09/19/2023 [id number] 9 10 DRUG- BUND barbiturates NEGATI VE NG/mL cutoff =200 Not Available [facility] ([facility]) [address] [place], [address], 09/20/2023 07:14:51 09/18/19 24 09/19/2023 [id number] 9 10 DRUG- BUND benzodiazepi nova NEGATI VE NG/mL cutoff =200 Not Available [facility] ([facility]) [address] [place], [address], 09/20/2023 07:14:51 09/18/19 24 09/19/2023 [id number] 9 10 DRUG- BUND cannabinoid NEGATI VE NG/mL cutoff =50 Not Available [facility] ([facility]) [address] [facility], [place], [address], 09/20/2023 07:14:51 09/18/19 24 09/19/2023 [id number] 9 10 DRUG- BUND cocaine (metab.) NEGATI VE NG/mL cutoff =300 Not Available [facility] ([facility]) [address] [place], [address], 09/20/2023 07:14:51 09/18/19 24 09/19/2023 [id number] 9 10 DRUG- BUND methaqualone NEGATI VE NG/mL cutoff =300 Not Available [facility] ([facility]) [address] [place], [address], 09/20/2023 07:14:51 09/18/19 24 09/19/2023 [id number] 9 10 DRUG- BUND opiates NEGATI VE NG/mL cutoff =2000 Opiat e test inclu hector Codei ne and Morph ine only. Not Available [facility] ([facility]) [address] [place], [address], 09/20/2023 07:14:51 09/18/19 24 09/19/2023 [id number] 9 10 DRUG- BUND phencyclidin e NEGATI VE NG/mL cutoff =25 Not Available [facility] ([facility]) [address] [facility], [place], [address], 09/20/2023 07:14:51 09/18/19 24 09/19/2023 [id number] 9 10 DRUG- BUND methadone screen, urine NEGATI VE NG/mL cutoff =300 Not Available [facility] ([facility]) [address] [facility], [place], [address], 09/20/2023 07:14:51 09/18/19 24 09/19/2023 [id number] 9 10 DRUG- BUND propoxyphene , urine NEGATI VE NG/mL cutoff =300 Not Available [facility] ([facility]) [address] [facility], [place], [address], 09/20/2023 07:14:51 09/18/19 24 09/19/2023 CBC WITH DIFFE RENTI AL/PL ATELE T WBC 6.9 x10e3 /uL 3.4-10 .8 Not Available [facility] ([facility]) [address] [place], [address], 09/20/2023 07:14:53 09/18/19 24 09/19/2023 CBC WITH DIFFE RENTI AL/PL ATELE T RBC 4.28 x10e6 /uL 3.77-5 .28 Not Available [facility] ([facility]) [address] [place], [address], 09/20/2023 07:14:53 09/18/19 24 09/19/2023 CBC WITH DIFFE RENTI AL/PL ATELE T hemoglobin 12.5 g/dL 11.1-1 5.9 Not Available [facility] ([facility]) [address] [place], [address], 09/20/2023 07:14:53 09/18/19 24 09/19/2023 CBC WITH DIFFE RENTI AL/PL ATELE T hematocrit 38.7 % 34.0-4 6.6 Not Available [facility] ([facility]) [address] [facility], [place], [address], 09/20/2023 07:14:53 09/18/19 24 09/19/2023 CBC WITH DIFFE RENTI AL/PL ATELE T MCV 90 fL 79-97 Not Available [facility] ([facility]) [address] [facility], [place], [address], 09/20/2023 07:14:53 09/18/19 24 09/19/2023 CBC WITH DIFFE RENTI AL/PL ATELE T MCH 29.2 pg 26.6-3 3.0 Not Available [facility] ([facility]) [address] [facility], [place], [address], 09/20/2023 07:14:53 09/18/19 24 09/19/2023 CBC WITH DIFFE RENTI AL/PL ATELE T MCHC 32.3 g/dL 31.5-3 5.7 Not Available [facility] ([facility]) [address] [facility], [place], [address], 09/20/2023 07:14:53 09/18/19 24 09/19/2023 CBC WITH DIFFE RENTI AL/PL ATELE T RDW 12.5 % 11.7-1 5.4 Not Available [facility] ([facility]) [address] [facility], [place], [address], 09/20/2023 07:14:53 09/18/19 24 09/19/2023 CBC WITH DIFFE RENTI AL/PL ATELE T platelets 251 x10e3 /uL 150-45 0 Not Available [facility] ([facility]) [address] [facility], [place], [address], 09/20/2023 07:14:53 09/18/19 24 09/19/2023 CBC WITH DIFFE RENTI AL/PL ATELE T neutrophils 73 % notest ab. Not Available [facility] ([facility]) [address] [facility], [place], [address], 09/20/2023 07:14:53 09/18/19 24 09/19/2023 CBC WITH DIFFE RENTI AL/PL ATELE T lymphs 17 % notest ab. Not Available [facility] ([facility]) [address] [facility], [place], [address], 09/20/2023 07:14:53 09/18/19 24 09/19/2023 CBC WITH DIFFE RENTI AL/PL ATELE T monocytes 8 % notest ab. Not Available [facility] ([facility]) [address] [facility], [place], [address], 09/20/2023 07:14:53 09/18/19 24 09/19/2023 CBC WITH DIFFE RENTI AL/PL ATELE T eos 2 % notest ab. Not Available [facility] ([facility]) [address] [facility], [place], [address], 09/20/2023 07:14:53 09/18/19 24 09/19/2023 CBC WITH DIFFE RENTI AL/PL ATELE T basos 0 % notest ab. Not Available [facility] ([facility]) [address] [facility], [place], [address], 09/20/2023 07:14:53 09/18/19 24 09/19/2023 CBC WITH DIFFE RENTI AL/PL ATELE T neutrophils (absolute) 5.0 x10e3 /uL 1.4-7. 0 Not Available [facility] ([facility]) [address] [facility], [place], [address], 09/20/2023 07:14:53 09/18/19 24 09/19/2023 CBC WITH DIFFE RENTI AL/PL ATELE T lymphs (absolute) 1.2 x10e3 /uL 0.7-3. 1 Not Available [facility] ([facility]) [address] [facility], [place], [address], 09/20/2023 07:14:53 09/18/19 24 09/19/2023 CBC WITH DIFFE RENTI AL/PL ATELE T monocytes(ab solute) 0.6 x10e3 /uL 0.1-0. 9 Not Available [facility] ([facility]) [address] [facility], [place], [address], 09/20/2023 07:14:53 09/18/19 24 09/19/2023 CBC WITH DIFFE RENTI AL/PL ATELE T eos (absolute) 0.1 x10e3 /uL 0.0-0. 4 Not Available [facility] ([facility]) [address] [facility], [place], [address], 09/20/2023 07:14:53 09/18/19 24 09/19/2023 CBC WITH DIFFE RENTI AL/PL ATELE T baso (absolute) 0.0 x10e3 /uL 0.0-0. 2 Not Available [facility] ([facility]) [address] [facility], [place], [address], 09/20/2023 07:14:53 09/18/19 24 09/19/2023 CBC WITH DIFFE RENTI AL/PL ATELE T immature granulocytes 0 % notest ab. Not Available [facility] ([facility]) [address] [facility], [place], [address], 09/20/2023 07:14:53 09/18/19 24 09/19/2023 CBC WITH DIFFE RENTI AL/PL ATELE T immature grans (abs) 0.0 x10e3 /uL 0.0-0. 1 Not Available [facility] ([facility]) [address] [facility], [place], [address], 09/20/2023 07:14:53 09/18/19 24 09/19/2023 ANTIB CHASE SCREE N antibody screen NEGATI VE negati ve Not Available [facility] ([facility]) [address] [facility], [place], [address], 09/20/2023 07:14:54 09/18/19 24 09/19/2023 ABO GROUP ING AND RHO(D ) TYPIN G ABO grouping O Not Available [facility] ([facility]) [address] [facility], [place], [address], 09/20/2023 07:14:55 09/18/19 24 09/19/2023 ABO GROUP ING AND RHO(D ) TYPIN G Rh factor NEGATI VE Pleas e note: Prior recor ds for this patie nt's ABO / Rh type are not avail able for addit ional verif icati on. Not Available [facility] ([facility]) [address] [facility], [place], [address], 09/20/2023 07:14:55 09/18/19 24 09/19/2023 RUBEL LA ANTIB ODIES , IGG rubella antibodies, IgG 1.36 index immune >0.99 Non-i mmune <0.90 Equiv ocal 0.90 - 0.99 Immun e >0.99 Not Available [facility] ([facility]) [address] [facility], [place], [address], 09/20/2023 07:14:56 09/18/19 24 09/19/2023 HBSAG SCREE N HBsAg screen NEGATI VE negati ve Not Available [facility] ([facility]) [address] [place], [address], 09/20/2023 07:14:56 09/18/19 24 09/19/2023 RPR, RFX QN RPR/C ONFIR M TP RPR NON REACTI VE nonrea ctive Not Available [facility] ([facility]) [address] [place], [address], 09/20/2023 07:14:57 09/18/19 24 09/19/2023 HIV AB/P2 4 AG WITH REFLE X HIV Ab/P24 Ag screen NON REACTI VE nonrea ctive HIV Negat virgil HIV-1 /HIV- 2 antib odies and HIV-1 p24 antig en were NOT detec polly. There is no labor atory evide nce of HIV infec tion. Not Available [facility] ([facility]) [address] [facility], [place], [address], 09/20/2023 07:14:58 09/18/19 24 09/19/2023 VARIC YEMI- ZOSTE R V AB, IGG varicella zoster IgG <135 index immune >165 below low normal Negat virgil <135 Equiv ocal 135 - 165 Posit virgil >165 A posit virgil resul t gener ally indic ates expos ure to the patho gen or admin istra tion of speci fic immun oglob ulins , but it is not indic ation of activ e infec tion or stage of disea se. Not Available [facility] ([facility]) [address] [facility], [place], [address], 09/20/2023 07:14:59 09/18/19 24 09/20/2023 URINE CULTU RE, ROUTI NE urine culture, routine FINAL REPORT abnormal Not Available [facility] ([facility]) [address] [facility], [place], [address], 09/20/2023 07:15:05 09/18/19 24 09/20/2023 URINE CULTU RE, ROUTI NE result 1 COMMEN T abnormal Beta hemol ytic Strep tococ cus, group B 10,00 0-25, 000 colon y formi ng units per mL Penic illin and ampic illin are drugs of choic e for treat ment of beta- hemol ytic strep tococ hector infec tions . Susce ptibi lity testi ng of penic illin s and other beta- lacta m agent s appro lorenzo by the FDA for treat ment of beta- hemol ytic strep tococ hector infec tions need not be perfo rmed routi david becau se nonsu scept ible isola zeynep are extre maryellen rare in any beta- hemol ytic strep tococ cus and have not been repor polly for Strep tococ cus pyoge nova (grou p A). (CLSI ) Not Available [facility] ([facility]) [address] [facility], [place], [address], 09/20/2023 07:15:05 09/18/19 24 09/19/2023 CT, NG, TRICH VAG BY TIFFANIE chlamydia by TIFFANIE NEGATI VE negati ve Not Available [facility] ([facility]) [address] [place], [address], 09/20/2023 07:15:07 09/18/19 24 09/19/2023 CT, NG, TRICH VAG BY TIFFANIE gonococcus by TIFFANIE NEGATI VE negati ve Not Available [facility] ([facility]) [address] [place], [address], 09/20/2023 07:15:07 09/18/19 24 09/19/2023 CT, NG, TRICH VAG BY TIFFANIE trich vag by TIFFANIE NEGATI VE negati ve Not Available [facility] ([facility]) [address] [place], [address], 09/20/2023 07:15:07 09/18/19 24 09/22/2023 MATER NIT21 PLUS CORE gestation SINGLE TON Not Available [facility] ([facility]) [address] [place], [address], 09/22/2023 11:16:55 09/18/19 24 09/22/2023 MATER NIT21 PLUS CORE fraction 6% Not Available [facility] ([facility]) [address] [place], [address], 09/22/2023 11:16:55 09/18/19 24 09/22/2023 MATER NIT21 PLUS CORE gestational age > or = 9W: YES Not Available [facility] ([facility]) [address] [place], [address], 09/22/2023 11:16:55 09/18/19 24 09/22/2023 MATER NIT21 PLUS CORE test result NEGATI VE Not Available [facility] ([facility]) [address] [facility], [place], [address], 09/22/2023 11:16:55 09/18/19 24 09/22/2023 MATER NIT21 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 Clini hector corre latio n is sugge sted. Not Available [facility] ([facility]) [address] [facility], [place], [address], 09/22/2023 11:16:55 09/18/19 24 09/22/2023 MATER NIT21 PLUS CORE approved by CARLOTA coyle MD, PhD, [facility] tor, [place] [facility] Labor atori es Not Available [facility] ([facility]) [address] [facility], [place], [address], 09/22/2023 11:16:55 09/18/19 24 09/22/2023 MATER NIT21 PLUS CORE trisomy 21 (down syndrome) NEGATI VE Not Available [facility] ([facility]) [address] [facility], [place], [address], 09/22/2023 11:16:55 09/18/19 24 09/22/2023 MATER NIT21 PLUS CORE trisomy 18 (terry syndrome) NEGATI VE Not Available [facility] ([facility]) [address] [facility], [place], [address], 09/22/2023 11:16:55 09/18/19 24 09/22/2023 MATER NIT21 PLUS CORE trisomy 13 (patau syndrome) NEGATI VE Not Available [facility] ([facility]) [address] [facility], [place], [address], 09/22/2023 11:16:55 09/18/19 24 09/22/2023 MATER NIT21 PLUS CORE sex COMMEN T Consi stent with Male Not Available [facility] ([facility]) [address] [facility], [place], [address], 09/22/2023 11:16:55 09/18/19 24 09/22/2023 MATER NIT21 PLUS CORE negative predictive value NOTE The Negat virgil Predi ctive Value (NPV) for triso my 21, 18, and 13 is great er than 99%. The NPV for SCA and ESS canno t be calcu lated as SCA and ESS are only repor polly when an abnor malit y is detec polly. Not Available [facility] ([facility]) [address] [facility], [place], [address], 09/22/2023 11:16:55 09/18/19 24 09/22/2023 MATER NIT21 PLUS CORE positive predictive value N/A Not Available [facility] ([facility]) [address] [facility], [place], [address], 09/22/2023 11:16:55 09/18/19 24 09/22/2023 MATER NIT21 PLUS CORE about the test COMMEN T The Mater niT(R ) 21 PLUS labor atory -deve loped test (LDT) alvaro zes circu latin g cell- free DNA from a mater nal blood sampl e. This test is used for scree pati purpo ses and not diagn ostic . Clini hector corre latio n is recom blade d. Valid ation data on twin pregn ancie s is limit ed and the abili ty of this test to detec t aneup loidy in highe r multi ple gesta tions has not yet been valid ated. Not Available [facility] ([facility]) [address] [facility], [place], [address], 09/22/2023 11:16:55 09/18/19 24 09/22/2023 MATER NIT21 PLUS CORE test method COMMEN T See Notes Circu latin g cell- free DNA was purif ied from the plasm a compo nent of mater nal blood . The extra cted DNA was then conve rted into a [employer] ic DNA jacques ry for aneup loidy alvaro sis of chrom osome s 21, 18, and 13 via next gener ation seque ncing .[1] Optio nal findi ngs based on the test order inclu de sex chrom osome aneup loidy (SCA) [2], and enhan sosa seque ncing serie s (ESS) [3], which will only be repor polly on as an addit ional findi ng when an abnor malit y is detec polly. SCA testi ng inclu hector infor matio n on X and Y repre senta tion, while ESS testi ng inclu hector delet ions in selec polly regio ns (22q, 15q, 11q, 8q, 5p, 4p, 1p) and triso my of chrom osome s 16 and 22. Not Available [facility] ([facility]) [address] [facility], [place], [address], 09/22/2023 11:16:55 09/18/19 24 09/22/2023 MATER NIT21 PLUS CORE performance COMMEN T The perfo rmanc e malcolm cteri stics of the Mater niT(R ) 21 PLUS labor atory -deve loped test (LDT) have been deter mined in a clini hector valid ation study with pregn ant women at incre ased risk for chrom osoma l aneup loidy .[1-4 ] Not Available [facility] ([facility]) [address] [facility], [place], [address], 09/22/2023 11:16:55 09/18/19 24 09/22/2023 MATER NIT21 PLUS CORE performance characterist ics NOTE ----- ----- ----- ----- ----- ----- ----- ----- ----- ----- ----- ---- ! Sex ! Accur acy: 99.4% ! !---- ----- ----- ----- ----- ----- ----- ----- ----- ----- ----- ---! ! Casie n (jose mo chanda d syndr ome) ! Est. Sens# ! Est. Spec ! !---- ----- ----- ----- ----- ----- ----- ----- ----- ----- ----- ---! ! Howieo my 21 (Down Syndr ome) ! 99.1% ! 99.9% ! !---- ----- ----- ----- ----- ----- ----- ----- ----- ----- ----- ---! ! Marc my 17 (Edwa rds Syndr ome) ! >99.9 % ! 99.6% ! !---- ----- ----- ----- ----- ----- ----- ----- ----- ----- ----- ---! ! Howieo my 13 (Pata u Syndr ome) ! 91.7% ! 99.7% ! !---- ----- ----- ----- ----- ----- ----- ----- ----- ----- ----- ---! ! Sex Chrom osome Aneup nevaeh es## ! 96.2% ! 99.7% ! !---- ----- ----- ----- ----- ----- ----- ----- ----- ----- ----- ---! * Annabelle matias in ISCA datab ase nstd3 7 [http s://chelsea dixon bi.nl m.nih .gov/ dbvar /stud ies/n std37 / ] # Estim ated Sensi tivit y. Sensi tivit y estim ated acros s the obser lorenzo size distr ibuti on of each syndr ome [per ISCA datab ase nstd3 7] and acros s the range of fract ions obser lorenzo in routi ne clini hector NIPT. Actua l sensi tivit y can also be influ enced by other facto rs such as the size of the event , total seque nce count s, ampli ficat ion bias, or seque nce bias. ## Singl eton gesta tion only. Not Available [facility] ([facility]) [address] [facility], [place], [address], 09/22/2023 11:16:55 09/18/19 24 09/22/2023 MATER NIT21 PLUS CORE limitations of the test COMMEN T While the resul ts of these tests are highl y relia ble, disco rdant resul ts, inclu ding inacc urate sex predi ction , may occur due to place ntal, mater nal, or mosai cism or neopl asm; vanis haley twin; prior mater nal organ trans plant ; or other cause s. These tests are scree pati tests and not diagn ostic ; they do not repla ce the accur acy and preci edyta of prena brent diagn osis with CVS or amnio cente sis. A patie nt with a posit virgil test resul t shoul d be refer red for jaylon ic couns eling and offer ed invas virgil prena brent diagn osis for confi rmati on of test resul ts.[5 ] The resul ts of this testi ng, inclu ding the benef its and limit ation s, shoul d be discu ssed with a quali fied healt nadya provi zenon. Pregn pretty manag ement decis ions, inclu ding termi natio n of the pregn pretty, shoul d not be based on the resul ts of these tests alone . The healt hcase provi zenon is respo nsibl e for the use of this infor matio n in the manag ement of their patie nt. Sex chrom osoma l aneup loidi es are not repor table for known multi ple gesta tions . A negat virgil resul t does not ensur e an unaff ected pregn pretty nor does it exclu de the possi bilit y of other chrom osoma l abnor malit ies or defec ts which are not a part of these tests . An uninf ormat virgil resul t may be repor polly, the cause s of which may inclu de, but are not limit ed to, insuf ficie nt seque ncing cover age, noise or artif acts in the regio n, ampli ficat ion or seque ncing bias, or insuf ficie nt fract ion. These tests are not inten ded to ident ti pregn ancie s at risk for neura l tube defec ts or ventr al wall defec ts. Testi ng for whole chrom osome abnor malit ies (incl uding sex chrom osome s) and for subch romos omal abnor malit ies could lead to the poten tial disco very of both and mater nal genom ic abnor malit ies that could have major , minor , or no, clini hector signi fican ce. Evalu ating the signi fican ce of a posit virgil or a non-r eport able resul t may invol ve both invas virgil testi ng and addit ional studi es on the mothe r. Such inves tigat ions may lead to a diagn osis of mater nal chrom osoma l or subch romos omal abnor malit ies, which on occas ion may be assoc iated with benig n or malig nant mater nal neopl asms. These tests may not accur ately ident ti tripl oidy, janna sosa rearr angem ents, or the preci se locat ion of subch romos omal dupli catio ns or delet ions; these may be detec polly by prena brent diagn osis with CVS or amnio cente sis. The abili ty to repor t resul ts may be impac polly by mater nal BMI, mater nal weigh t, mater nal syste solitario lupus eryth emato malina (SLE) and/o r by certa in pharm aceut ical agent s such as low molec ular weigh t hepar in (for examp le: Loven ox(R) , Xapar in(R) , Clexa ne(R) and Fragm in(R) ). Not Available [facility] ([facility]) [address] [facility], [place], [address], 09/22/2023 11:16:55 09/18/19 24 09/22/2023 MATER NIT21 PLUS CORE note COMMEN T See Notes [employer]. is a subsi diary of Labor atory Corpo ratio n of Ameri ca Holdi ngs, using the brand [employer]. This test was devel oped and its perfo rmanc e malcolm cteri stics deter mined by [employer]. It has not been clear ed or appro lorenzo by the Food and Drug Admin istra tion. This labor atory is certi fied under the Clini hector Labor atory Impro vemen t Amend ments (CLIA ) as quali fied to perfo rm high compl exity clini hector labor atory testi ng and accre dited by the Cherelle arana of Ameri can Patho logis ts (CAP) . If there is futur e clini hector need for addin g Mater niT GENOM E testi ng, this speci men will be avail able until term. [facility] sampl es will not be retai roxana beyon d 60 days. [facility] nts will have to send a new sampl e for re-se quenc ing ([facility] Test Code: 42189 4). Not Available [facility] ([facility]) [address] [facility], [place], [address], 09/22/2023 11:16:55 09/18/19 24 09/22/2023 MATER NIT21 PLUS CORE references CATARINAEN T 1. Rosamaria ARANA, et al. [facility] Med. 2012; 14(3) :296- 305. 2. Abhijeet BECK, et al. Prena t Diag. 2013; 33(6) :591- 597. 3. Jose C, et al. Clin Chem. 2015 Aug;6 1(4): 608-6 16. 4. Rosamaria ARANA, et al. [facility]lon Med. 2011; 13(11 ):913 -920. 5. ACOG/ SMFM Pract ice Bulle tin No. 226, Feb 2020. Not Available [facility] ([facility]) [address] [facility], [place], [address], 09/22/2023 11:16:55 09/18/19 24 09/22/2023 MATER NIT21 PLUS CORE pdf . Not Available [facility] ([facility]) [address] [facility], [place], [address], 09/22/2023 11:16:55 09/18/19 24 09/18/2023 urina lysis , dipst ick Leukocytes Trace Not Available In-Offi ce Order Internal Use Only DO Not Attach Compendium DO Not Attach Compendium, Do Not Delete/merge, 09/18/2023 09:54:26 09/18/19 24 09/18/2023 urina lysis , dipst ick Nitrite negati ve Not Available In-Office Order Internal Use Only DO Not Attach Compendium DO Not Attach Compendium, Do Not Delete/merge, 09/18/2023 09:54:26 09/18/19 24 09/18/2023 urina lysis , dipst ick Urobilinogen .2 Not Available In-Of fice Order Internal Use Only DO Not Attach Compendium DO Not Attach Compendium, Do Not Delete/merge, 09/18/2023 09:54:26 09/18/19 24 09/18/2023 urina lysis , dipst ick Protein Negati ve Not Available In-Office Order Internal Use Only DO Not Attach Compendium DO Not Attach Compendium, Do Not Delete/merge, 09/18/2023 09:54:26 09/18/19 24 09/18/2023 urina lysis , dipst ick pH 7.0 Not Available In-Office Order Internal Use Only DO Not Attach Compendium DO Not Attach Compendium, Do Not Delete/merge, 09/18/2023 09:54:26 09/18/19 24 09/18/2023 urina lysis , dipst ick Blood Negati ve Not Available In-Office Order Internal Use Only DO Not Attach Compendium DO Not Attach Compendium, Do Not Delete/merge, 09/18/2023 09:54:26 09/18/19 24 09/18/2023 urina lysis , dipst ick Specific Tunica 1.025 Not Available In-Off ice Order Internal Use Only DO Not Attach Compendium DO Not Attach Compendium, Do Not Delete/merge, 09/18/2023 09:54:26 09/18/19 24 09/18/2023 urina lysis , dipst ick Ketone Negati ve Not Available In-Office Order Internal Use Only DO Not Attach Compendium DO Not Attach Compendium, Do Not Delete/merge, 09/18/2023 09:54:26 09/18/19 24 09/18/2023 urina lysis , dipst ick Bilirubin Negati ve Not Available In-Office Order Internal Use Only DO Not Attach Compendium DO Not Attach Compendium, Do Not Delete/merge, 09/18/2023 09:54:26 09/18/19 24 09/18/2023 urina lysis , dipst ick Glucose Negati ve Not Available In-Office Order Internal Use Only DO Not Attach Compendium DO Not Attach Compendium, Do Not Delete/merge, 09/18/2023 09:54:26 09/18/19 24 09/18/2023 urina lysis , dipst ick Appearance Slight ly Cloudy Not Available In-Office Order Internal Use Only DO Not Attach Compendium DO Not Attach Compendium, Do Not Delete/merge, 09/18/2023 09:54:26 09/18/19 24 09/18/2023 urina lysis , dipst ick Color Yellow Not Available In-Office Order Internal Use Only DO Not Attach Compendium DO Not Attach Compendium, Do Not Delete/merge, 09/18/2023 09:54:26 09/20/19 24 09/21/2023 PROTE IN TOTAL , QN, 24-HR URINE protein,tota l,urine 22.0 mg/dL notest ab. Not Available [facility] ([facility]) [address] [facility], [place], [address], 09/21/2023 07:16:09 09/20/19 24 09/21/2023 PROTE IN TOTAL , QN, 24-HR URINE prot,24HR calculated 572 mg/24 _HR 30-150 above high normal Not Available [facility] ([facility]) [address] [place], [address], 09/21/2023 07:16:09 10/30/19 24 10/31/2023 TSH+F REE T4 TSH 1.080 uIU/m L 0.450- 4.500 Not Available [facility] ([facility]) [address] [place], [address], 10/31/2023 16:13:10 10/30/19 24 10/31/2023 TSH+F REE T4 T4,free(dire ct) 0.95 NG/dL 0.82-1 .77 Not Available [facility] ([facility]) [address] [place], [address], 10/31/2023 16:13:10 10/30/19 24 10/30/2023 AFP, SERUM , OPEN SPINA BIFID A comment: CARLOTA ventura , Ph.D. , [facility] Dire tor Refer ences : Avail able Upon Reque st. Multi ples Of Media n Cutof fs For AFP [place] tions Singl eton 2.5 Black 2.8 IDD 2.0 Twins 4.5 Abbre viati on Defin ition s IDD - Insul in Dep Diabe zeynep OSBR - Open Spina Bifid a Risk For furth er inqui bipin conta ct [facility] Jaylon [facility] Servi hiwot at [phone]. This test was devel oped and its perfo rmanc e malcolm cteri stics deter mined by [facility]. It has not been clear ed or appro lorenzo by the Food and Drug Admin istra tion. Not Available [facility] ([facility]) [address] [place], [address], 11/01/2023 07:16:12 10/30/19 24 10/31/2023 AFP, SERUM , OPEN SPINA BIFID A results REPORT Not Available [facility] ([facility]) [address] [facility] [place], [address], 11/01/2023 07:16:12 10/30/19 24 10/31/2023 AFP, SERUM , OPEN SPINA BIFID A test results: *SCREE N NEGATI VE* Not Available [facility] ([facility]) [address] [facility] [place], [address], 11/01/2023 07:16:12 10/30/19 24 10/31/2023 AFP, SERUM , OPEN SPINA BIFID A gest. age on collection date 17.9 weeks Not Available [facility] ([facility]) [address] [place], [address], 11/01/2023 07:16:12 10/30/19 24 10/31/2023 AFP, SERUM , OPEN SPINA BIFID A gestat. age based on LMP 06/27 Recal culat ions are not recom blade d when gesta mekhi l datin g by LMP and ultra sound are withi n 10 days. Not Available [facility] ([facility]) [address] [place], [address], 11/01/2023 07:16:12 10/30/19 24 10/31/2023 AFP, SERUM , OPEN SPINA BIFID A [age] Not Available [facility] ([facility]) [address] [place], [address], 11/01/2023 07:16:12 10/30/19 24 10/31/2023 AFP, SERUM , OPEN SPINA BIFID A race CAUCAS CHARLENE Not Available [facility] ([facility]) [address] [place], [address], 11/01/2023 07:16:12 10/30/19 24 10/31/2023 AFP, SERUM , OPEN SPINA BIFID A weight 308 lbs Not Available [facility] ([facility]) [address] [place], [address], 11/01/2023 07:16:12 10/30/19 24 10/31/2023 AFP, SERUM , OPEN SPINA BIFID A insulin dep diabetes NO Not Available [facility] ([facility]) [address] [place], [address], 11/01/2023 07:16:12 10/30/19 24 10/31/2023 AFP, SERUM , OPEN SPINA BIFID A multiple gestation NO Not Available [facility] ([facility]) [address] [place], [address], 11/01/2023 07:16:12 10/30/19 24 10/31/2023 AFP, SERUM , OPEN SPINA BIFID A AFP value 27.6 NG/mL Not Available [facility] ([facility]) [address] [place], [address], 11/01/2023 07:16:12 10/30/19 24 10/31/2023 AFP, SERUM , OPEN SPINA BIFID A AFP MOM 0.95 Not Available [facility] ([facility]) [address] [place], [address], 11/01/2023 07:16:12 10/30/19 24 10/31/2023 AFP, SERUM , OPEN SPINA BIFID A OSBR risk 1 in [address] Not Available [facility] ([facility]) [address] [place], [address], 11/01/2023 07:16:12 10/30/19 24 10/31/2023 AFP, SERUM , OPEN SPINA BIFID A interpretati on COMMEN T Inter preta tion: Scree n Negat virgil This resul t is scree n negat virgil for OSB. The AFP MoM calcu lated is based on the gesta mekhi l age provi ded. MS-AF P can ident ti up to 80% of open neura l tube defec ts. Close d neura l tube defec ts and some open defec ts may not be detec polly by this test. This test does not scree n for Down Syndr ome or Triso my 18. If scree pati for Down Syndr ome or Triso my 18 is milena ed, conta ct [facility] [employer] hiwot to discu ss avail able optio ns. The Ameri can Colle ge of Obste trici ans and Gynec ologi sts recom mends amnio cente sis be offer ed to women age 35 and older . Not Available [facility] ([facility]) [address] [facility], [place], [address], 11/01/2023 07:16:12 10/30/1911/01/2023 AFP, SERUM , OPEN SPINA BIFID A pdf . Not Available [facility] ([facility]) [address] [facility], [place], [address], 11/01/2023 07:16:12 10/30/1910/30/2023 urina lysis , dipst ick Leukocytes Negati ve Not Available In-Office Order Internal Use Only DO Not Attach Compendium DO Not Attach Compendium, Do Not Delete/merge, 10/30/2023 11:40:34 10/30/1910/30/2023 urina lysis , dipst ick Nitrite negati ve Not Available In-Office Order Internal Use Only DO Not Attach Compendium DO Not Attach Compendium, Do Not Delete/merge, 10/30/2023 11:40:34 10/30/1910/30/2023 urina lysis , dipst ick Urobilinogen .2 Not Available In-Of fice Order Internal Use Only DO Not Attach Compendium DO Not Attach Compendium, Do Not Delete/merge, 10/30/2023 11:40:34 10/30/1910/30/2023 urina lysis , dipst ick Protein Negati ve Not Available In-Office Order Internal Use Only DO Not Attach Compendium DO Not Attach Compendium, Do Not Delete/merge, 10/30/2023 11:40:34 10/30/19 24 10/30/2023 urina lysis , dipst ick pH 6.0 Not Available In-Office Order Internal Use Only DO Not Attach Compendium DO Not Attach Compendium, Do Not Delete/merge, 10/30/2023 11:40:34 10/30/19 24 10/30/2023 urina lysis , dipst ick Blood Negati ve Not Available In-Office Order Internal Use Only DO Not Attach Compendium DO Not Attach Compendium, Do Not Delete/merge, 10/30/2023 11:40:34 10/30/19 24 10/30/2023 urina lysis , dipst ick Specific Tunica 1.015 Not Available In-Off ice Order Internal Use Only DO Not Attach Compendium DO Not Attach Compendium, Do Not Delete/merge, 10/30/2023 11:40:34 10/30/19 24 10/30/2023 urina lysis , dipst ick Ketone Trace Not Available In-Office Order Internal Use Only DO Not Attach Compendium DO Not Attach Compendium, Do Not Delete/merge, 10/30/2023 11:40:34 10/30/19 24 10/30/2023 urina lysis , dipst ick Bilirubin Negati ve Not Available In-Office Order Internal Use Only DO Not Attach Compendium DO Not Attach Compendium, Do Not Delete/merge, 10/30/2023 11:40:34 10/30/19 24 10/30/2023 urina lysis , dipst ick Glucose Negati ve Not Available In-Office Order Internal Use Only DO Not Attach Compendium DO Not Attach Compendium, Do Not Delete/merge, 10/30/2023 11:40:34 10/30/19 24 10/30/2023 urina lysis , dipst ick Appearance Clear Not Available In-Offi ce Order Internal Use Only DO Not Attach Compendium DO Not Attach Compendium, Do Not Delete/merge, [id number] 10/30/2023 11:40:34 08/11/19 24 08/11/2023 US, obste tric, 1st trime ster No observ ation record ed. [email or web address] [facility] Scheduling [address] [facility] , [place], [address], 08/15/2023 11:34:26 08/28/19 24 08/28/2023 US, obste tric, 1st trime ster No observ ation record ed. [email or web address] [facility] Scheduling [address] [facility] , [place], [address], 08/31/2023 15:24:09 10/13/19 24 10/13/2023 US, obste tric, 1st trime ster No observ ation record ed. [email or web address] [facility] [address] [facility] , [place], [address], 10/17/2023 09:42:21 10/30/19 24 10/13/2023 US, obste tric, 1st trime ster No observ ation record ed. [email or web address] [facility] [address], [address], 10/31/2023 16:39:12 11/24/19 24 11/24/2023 US, obste tric, mater nal evalu ation + anato my No observ ation record ed. [facility] () [address] [facility], [place], [address], 12/04/2023 13:07:13 11/24/19 24 11/24/2023 US, obste tric, mater nal evalu ation + anato my No observ ation record ed. [facility] Not Available 2023 13:07:22 Result Notes None recorded. Problems Name Problem SNOMED Code Status Onset Date Resolution Date Notes Provider Name and Address Organization Details Recorded Time Migraine without aura 25992059 Completed 201903/12/2020 YUNI Hightower NP Attn: Accounting ,[address] [place], [address] , [place] [facility] 0 10:03:35 Adult health examinat ion Completed 201903/12/2020 YUNI Hightower NP Attn: Accounting ,[address] [place], [address] , [place] [facility] 0 10:03:21 Loss of hair 621857747 Completed 201903/12/2020 YUNI Hightower NP Attn: Accounting ,[address] [place], [place], [address] [place] [address] , [place] [facility] 0 10:03:33 Posterio r rhinorrh ea 15071607 Completed 201903/12/2020 YUNI Hightower NP Attn: Accounting ,[address] [place], [place], [address] [place] [address] , [facility] 0 10:03:39 Facial swelling 385543570 Completed 201903/12/2020 YUNI Hightower NP Attn: Accounting ,[address] [place], [address] , [place] [facility] 0 10:03:31 Pregnanc y 99035228 Completed 202008/02/2021 Glenna Mahajan MD Attn: Accounting ,[address] [place], [address] , [place] [facility] 4 12:18:22 Family history of Spina bifida [id number] Completed sister of patient has Spina bifida and CP. Pt referred to [facility] for co manageme nt. Started pt on addition al 400 mcg of folic acid with PNV. TUTU Nguyen Attn: Accounting ,[address] [place], [address] , [place] [facility] 2 15:29:26 Low back pain in pregnanc y [id number] 06 Completed Pt educated on manageme nt options and importan ce of stretchi ng and massage. Pt opts for PT referral . maternit y belt ordered. Pt educated on warning signs and when to call office. Pt also notified when to go to [facility] RTC in 4 weeks and call office if issues occur. TUTU Nguyen Attn: Accounting ,[address] [place], [address] , [facility] - [facility] 2 15:29:26 RhD negative 556768607 Completed aware of need for routine rhoGAM and as needed if issues occur. TUTU Nguyen Attn: Accounting ,[address] [place], [address] , [place] [facility] 2 15:29:26 Urinary tract infectio us disease 20961344 Completed 03/12/2020 YUNI Hightower NP Attn: Accounting ,[address] [place], [address] , [facility] - [facility] 0 10:03:41 Otalgia 61428831 Completed 06/25/2019 Venecia Turner [place] - [facility] 0 10:46:29 Morbid obesity 213646409 Completed 03/12/2020 Glenna Mahajan MD Attn: Accounting ,[address] [place], [address] , [facility] - [facility] 4 09:49:38 Morbid obesity 440426632 Active 2023 pt educated on risk and discusse d safe lifestyl e modifica tions in pregnanc y. Pt to see obgyn here and co-manag e with m Deyvi James MD Attn: Accounting ,[address] [place], [address] , [place] [facility] 4 13:11:28 Headache 38065360 Active 2023 Glenna Mahajan MD Attn: Accounting ,[address] [place], [address] , [place] [facility] 4 09:49:50 Pregnanc y 12427324 Completed 202304/25/2024 Glenna Mahajan MD Attn: Accounting ,[address] [place], [address] , [facility] 4 12:18:22 Family history of Spina bifida 148142465 Completed co manage with [facility] Deyvi James MD Attn: Accounting ,[address] [facility], [place], [place], [address] [place] [address] , [facility] 4 13:11:28 Morbid obesity 411187587 Completed 2023 pt educated on risk and discusse d safe lifestyl e modifica tions in pregnanc y. Pt to see obgyn here and co-manag e with [facility] Deyvi James MD Attn: Accounting ,[address] [facility], [place], [place], [address] [place] [address] , [facility] - [facility] 4 13:11:28 RhD negative 653367751 Completed educated on need of rhoGAM and timing of injectio ns Deyvi James MD Attn: Accounting ,[address] [place], [place], [address] [place] [address] , [facility] - [facility] 4 13:11:28 Past pregnanc y history of postpart um hemorrha ge 976150752 Completed co manage with [facility] and obgyn Deyvi James MD Attn: Accounting ,[address] [place], [place], [address] [place] [address] , [facility] - [facility] 4 13:11:28 Migraine 92444188 Completed [facility] stopped topirama te and start tylenol Deyvi James MD Attn: Accounting ,[address] [place], [address] , [facility] - [facility] 4 13:11:28 Proteinu hailee 13828994 Completed Deyvi James MD Attn: Accounting ,[address] [place], [address] , [facility] - [facility] 4 13:11:28 Group B Streptoc occus carrier [id number] 03 Completed GBS in urine 09/18/23 Deyvi James MD Attn: Accounting ,[address] [place], [place], [address] [place] [address] , [place] [facility] 4 13:11:28 Varicell a non-immu ne 870548158 Completed Recommen d vaccine after delivery . Deyvi James MD Attn: Accounting ,[address] [place], [address] , [place] [facility] 4 13:11:28 Migraine 28871831 Active 2023 Glenna Mahajan MD Attn: Accounting ,[address] [place], [address] , [place] [facility] 4 12:46:34 Vitamin D deficien cy 52986283 Completed 03/12/2020 YUNI Hightower NP Attn: Accounting ,[address] [place], [address] , [facility] - [facility] 0 10:03:44 Astigmat ism 01116303 Completed 03/12/2020 YUNI Hightower NP Attn: Accounting ,[address] [place], [address] , [place] [facility] 0 10:03:46 Caf? ? ? au lait spots [id number] Completed 06/25/2019 Venecia Turner [facility] [place], [place] - [facility] 0 10:46:04 Acute sinusiti s 30945984 Completed 03/12/2020 YUNI Hightower NP Attn: Accounting ,[address] [place], [address] , [place] [facility] 0 10:03:19 Headache 25604385 Completed 06/25/2019 Glenna Mahajan MD Attn: Accounting ,[address] [place], [address] , [place] [facility] 4 09:49:50 Problem Notes None recorded. Procedures Surgical History Date Name Laterality Status Provider Name and Address Organization Details Recorded Time 07/25/19 24 Date of Last Pap Smear completed DELPHINE Tyson [place] - [facility] 07/25/2023 14:13:14 05/08/19 13 Tonsillectomy completed Amanda Orr [place] - [facility] 07/02/2014 10:50:27 05/08/19 13 Adenoidectomy completed Amanda Orr MA [place] - [facility] 07/02/2014 10:50:27 biopsy of skin completed DELPHINE Tyson [facility] 07/25/2023 14:14:32 Imaging Results Imaging Date Name Status LastModified by Organiz ation Details LastModified Time 08/11/2023 US, obstetric, 1st trimester completed basilio [facility] [address] [facility] [place], [address], 08/15/2023 11:34:26 08/28/2023 US, obstetric, 1st trimester completed juan [facility] 1 [facility] [place], [address], 08/31/2023 15:24:09 10/13/2023 US, obstetric, 1st trimester completed basilio [facility] 1 [facility] [place], [address], 10/17/2023 09:42:21 10/13/2023 US, obstetric, 1st trimester completed [email or web address] [facility] [address], [address], 10/31/2023 16:39:12 11/24/2023 US, obstetric, maternal evaluation + anatomy completed [facility] () [address] [facility], [place], [address], 12/04/2023 13:07:13 11/24/2023 US, obstetric, maternal evaluation + anatomy completed [facility] Information not available 12/04/2023 13:07:22 Procedure Notes None recorded. Medical Equipment None Reported. Allergies No known drug allergies Medications Name Sig Start Date Stop Date Status Note LastModified by Organization Details LastModified Time Prescript ion - Renewal 06/25 completed vitamin D 2 50,000 iu weekly renewal script 07/26/19 Not Available Not Available Not Available amoxicill [...] e 50 mcg/actua tion nasal spray,[employer] [place] 1 spray every day by intranas al [...] Recorded Body height Body mass index (BMI) Heart rate Systolic blood pressure Diastolic blood pressure Provider Name and Address Organization Details Last Updated DateTime 08/15/2023 165.1 cm 51.4 kg/m2 69 /min 125 mm[Hg] 80 mm[Hg] [place]INE yTson [place] - [facility] 4 11:11:27 Date Recorded Body weight Provider Name an d Address Organization Details Last Updated DateTime 08/15/2023 443356.48743 g TUTU Nguyen Attn: Accounting,[address] [place], [address], [facility] 08/15/2023 11:20:59 Date Recorded Body height Body mass index (BMI) Body weight Heart rate Systolic blood pressure Diastolic blood pressure Provider Name and Address Organization Details Last Updated DateTime 165.1 cm 50.9 kg/m2 469135. 98566 g 73 /min 138 mm[Hg] 81 mm[Hg] Martha Chávez [facility] 09:35:54 Date Recorded Systolic blood pressure Diastolic blood pressure Provider Name and Address Organization Details Last Updated DateTime 09/18/2023 130 mm[Hg] 85 mm[Hg] TUTU Nguyen Attn: Accounting, [place], [address], [facility] 09/18/2023 10:07:15 Date Recorded Body height Body mass index (BMI) Heart rate Systolic blood pressure Diastolic blood pressure Provider Name and Address Organization Details Last Updated DateTime 10/30/2023 165.1 cm 51.3 kg/m2 71 /min 119 mm[Hg] 78 mm[Hg] Berta Huntley MA [facility] 11:39:01 Date Recorded Body weight Provider Name an d Address Organization Details Last Updated DateTime 10/30/2023 056634.967453 g Jennie Angel Attn: Accounting,[address] [place], [address], [facility] 10/30/2023 11:50:20 Date Recorded Body height Body mass index (BMI) Body weight Body temperature Heart rate Respiratory rate Oxygen saturation Oxygen saturation in Arterial blood by Pulse oximetry Systolic blood pressure Diastolic blood pressure Provider Name and Address Organization Details Last Updated DateTime 165.1 cm 53.4 kg/m2 113907. 15 g 96.4 [degF] 85 /min 21 /min 98 % 98 % 118 mm[Hg] 82 mm[Hg] Esther Gates Edouard [facility] 15:56:55 Date Recorded Body height Body mass index (BMI) Body weight Body temperature Heart rate Respiratory rate Oxygen saturation Oxygen saturation in Arterial blood by Pulse oximetry Systolic blood pressure Diastolic blood pressure Provider Name and Address Organization Details Last Updated DateTime 4 165.1 cm 50.3 kg/m2 700502. 95 g 97.7 [degF] 62 /min 18 /min 97 % 97 % 112 mm[Hg] 78 mm[Hg] Jailyn Saba [place] - [facility] 4 12:00:19 Social History Question Answer Notes LastModified by Organizat ion Details LastModified Time Tobacco Smoking Status Never Smoker Amanda Orr [place] null, [place] - [facility] 07/02/2014 10:50:27 What Is Your Level Of Alcohol Consumption? None Information not available 12/20/2021 Animal Exposure? Yes [email or web address] Informat ion not available 07/02/2014 Do You Wear A Helmet When Biking? No Information not available 07/02/2014 Are You Or Have You Been Involved With Bullying? No [email or web address] Information not available 07/02/2014 What Is Your Level Of Caffeine Consumption? Moderate Information not available 05/26/2020 What Type Of Residential Counselor Do You Use? None [email or web address] Information not available 07/02/2014 In The 14 [...] Type Of Diet Are You Following? REGULAR [email or web address] Information not available 07/02/2014 Do You Or Have You Ever Used E-cigarettes Or Vape? Never Used Electronic Cigarettes Information not available 06/11/2020 Have There Been Any Changes To Your Family Or Social Situation? No Information no t available 07/02/2014 Are There Any Guns Present In Your Home? No [email or web address] Information not available 07/02/2014 What Is Your Home Situation? Both Parents Lives With Mom, Dad, 1 Brother , 1 Sister [email or web address] Information not available 07/02/2014 Do You Use Insect Repellent Routinely? Yes [email or web address] Information not available 07/02/2014 Car Seat Type Or Seat Belt? Seat Belt Information not available 07/02/2014 Parent Involvement? Both Parents Involved [email or web address] Information not available 07/02/2014 Riding In Car Front Seat? Yes [email or web address] Information not available 07/02/2014 What Was The Date Of Your Most Recent Tobacco Screening? 04/25/2024 Information not available 04/25/2024 How Many Children Do You Have? 1 Information not available 01/31/2022 What Is Your Parents' Marital Status? [email or web address] Information not available 07/02/2014 Pool Exposure No [email or web address] Information not available 07/02/2014 What Is Your Relationship Status? Single Information not available 01/31/2022 What Is The Name Of Your School? [email or web address] Information not available 05/26/2020 Are You Sexually Active? Yes Information not available 01/31/2022 Do You Have Any Siblings? 1 Bro 1 Sis [email or web address] Information not available 07/02/2014 Do You Have Smoke And Carbon Monoxide Detectors In Your Home? Yes [email or web address] Information not available 07/02/2014 Are You Passively Exposed To Smoke? Yes Dad Smoke Outside [email or web address] Information not available 08/28/2014 Do You Or [...] 12/20/2021 Do You Use Sunscreen Routinely? Yes [email or web address] Information not available 07/02/2014 Has Tobacco Cessation Counseling Been Provided? Yes Information not available 06/06/2022 On What Date Was Tobacco Cessation Counseling Provided? 04/25/2024 Information not available 04/25/2024 Year In School [employer] Informat[employer] n not available 05/26/2020 Do You [...] High Blood Pressure N Blood Diseases N Blood Clots N COPD N Depression N Premature N Headaches/Migraines N Anxiety Disorder N Muscle, Joint, or Bone Problems N Vision or Eye Problems N Polyps N Infertility N Acid Reflux (GERD) N Cancer N Stroke N Headaches N Ear or Hearing Problems N Kidney or Bladder Problems N Acne N Eating Disorder N Skin Problems N Constipation N Asthma N Allergies N Substance Abuse N Hepatitis N Chicken Pox N Autism Spectrum Disorder (ASD) N Breast Cancer N Lung Disease N Developmental or Behavioral Disorders N Breast Problem N Anesthesia Complications N Head Injury/Concussion N ADHD N Endometriosis N Bladder or Kidney Problems N High Cholesterol N Liver Disease N Schizophrenia N Thyroid Problems N GI Problems N Anemia N Heart Attack ([place]) N Diabetes N Ovarian Cancer N Bedwetting N Blood Transfusions N Heart Problems/Murmur N Seizures/Epilepsy N Abuse/Domestic Violence N Heart Disease N Pre-Eclampsia N Heart Failure N Osteoporosis N Gynecological History Statement/Question Response [...] completed Glenna Mahajan MD Attn: Accounting[address] [facility], [place], [place], [address] [place] [address], [place] [facility] 08/03/2023 09:14:55 Novel Etvzrpyiq-[id number], nasal 0 completed Glenna Mahajan MD Attn: Accounting,[address] [facility], [place], [place], [address] [place] [address], [place] [facility] 08/03/2023 09:14:55 HPV, quadrivalent 4 completed Glenna Mahajan MD Attn: Accounting,[address] [facility], [place], [place], [address] [place] [address], [place] [facility] 08/03/2023 09:14:55 Meningococcal MCV4O 7 completed Glenna Mahajan MD Attn: Accounting,[address] [facility], [place], [address] [place] [address], [place] [facility] 08/03/2023 09:14:55 Influenza, live, quadrivalent, intranasal 4 completed Glenna Mahajan MD Attn: Accounting,[address] [facility], [place], [address] [place] [address], [place] [facility] 08/03/2023 09:14:55 Influenza, live, quadrivalent, intranasal 3 completed Glenna Mahajan MD Attn: Accounting,[address] [facility], [place], [place], [address] [place] [address], [place] [facility] 08/03/2023 09:14:56 Influenza, split virus, quadrivalent, PF 9 completed Glenna Mahajan MD Attn: Accounting,[address] [facility], [place], [place], [address] [place] [address], [place] [facility] 08/03/2023 09:14:56 meningococcal B, OMV 8 completed Not Available [facility] 05/25/2019 02:39:19 meningococcal B, OMV 8 completed Not Available [facility] 05/25/2019 02:35:50 Influenza, split virus, quadrivalent, PF 0 [place] [facility] 06/25/2019 11:07:16 Tdap 0 completed Venec[place] [facility] 06/25/2019 11:07:16 Influenza, split virus, quadrivalent, preservative 1 completed Ny Amaya [place] [facility] 05/27/2020 12:26:13 Influenza, split virus, quadrivalent, PF 2 completed YUNI Hightower NP Attn: Accounting,[address] [place], [address], [place] [facility] 03/07/2022 09:40:22 DTaP 5 completed Glenna Mahajan MD Attn: Accounting,[address] [place], [address], [place] [facility] 08/03/2023 09:14:55 DTaP 0 [...] 07/01/2014 10:26:58 Hib, unspecified formulation 0 completed [place] [facility] 07/01/2014 10:26:58 Hep A, [...] 07/01/2014 10:27:42 HPV, unspecified formulation 2 completed Kristie Sant[place] [facility] 07/01/2014 10:28:19 HPV, unspecified formulation 2 completed Kristie [place] [facility] 07/01/2014 10:28:19 HPV, unspecified formulation 4 completed Glenna Mahajan MD Attn: Accounting,[address] [place], [address], [place] [facility] 08/03/2023 09:14:55 influenza, unspecified formulation 2 completed Kristie [place] [facility] 07/01/2014 10:28:46 influenza, unspecified formulation 4 completed Kristie [place] [facility] 07/01/2014 10:28:46 influenza, unspecified formulation 1 completed Glenna Mahajan MD Attn: Accounting,[address] [place], [address], [place] [facility] 08/03/2023 09:14:55 influenza, unspecified formulation 3 completed Kristie [place] [facility] 07/01/2014 10:28:46 MMR 5 completed Glenna Mahajan MD Attn: Accounting,[address] [place], [address], [place] [facility] 08/03/2023 09:14:55 MMR 0 completed Kristie AvalosdenverLISY pak[place] [facility] 07/01/2014 10:29:07 meningococcal MCV4, unspecified formulation 1 completed Kirstieshey Avalosjanki[place]ISY[place] [facility] 07/01/2014 10:29:20 IPV 0 completed Kristie AvalosdenverLISY [place]ak [place] [facility] 07/01/2014 10:29:47 IPV 5 completed Glenna Mahajan MD Attn: Accounting,[address] [facility] [place], [place], [address], [place] [facility] 08/03/2023 09:14:55 IPV 9 completed Kristieshey Avalos[place]anki[place]ISY[place] [facility] 07/01/2014 10:29:47 IPV 1 completed Kristieshey Avalosjanki [place] [facility] 07/01/2014 10:29:47 Tdap 0 completed Kristie AvalosdenverLISY [place]ak [place] [facility] 07/01/2014 10:30:01 varicella 0 completed Kristie Avalos[place]verL[place]ak[place] [facility] 07/01/2014 10:30:20 varicella 0 completed Kristie [place]valos[place]verLIS[place]ak[place] [facility] 07/01/2014 10:30:20 Past Encounters Encounter ID Performer Location Encounter Start Date Encounter Closed Date Diagnosis/Indication Diagnosis SNOMED-CT Code Diagnosis ICD10 Code [id number] [facility] (Peds) [address] [place] [address] 07/02/2014 10:39:01 07/02/2014 12:02:58 Urinary tract infectious disease 72285818 Otalgia 32242809 Morbid obesity 310464215 [id number] [facility] Rizvi (Peds) [address] [place] [address] 08/26/2014 16:02:35 08/27/2014 08:48:12 Urinary tract infectious disease 15719032 Morbid obesity 706081650 Vitamin D deficiency 347 89614 [id number] [facility] (Peds) [address] [place] [address] 08/28/2014 09:20:30 08/28/2014 14:42:07 Well child 433036356 Morbid obesity 555985046 Urinary tr act infectious disease 97792506 Vitamin D deficiency 347 72673 Astigmatism 57622865 Caf? ? ? au lait spots [id number] [facility] [address] [place] [address] 03/30/2015 14:19:22 03/30/2015 17:41:52 Acute sinusitis 76693935 J01.80 [id number] Leonard West MD [facility] (Peds) [address] [place] [address] 05/29/2015 16:08:23 05/29/2015 17:13:56 Headache 56207166 R51 Morbid obesity 714817243 E66.01 [id number] Larrybibifabrice Dany [facility] (Peds) [address] [place] [address] 04/15/2016 14:45:18 04/21/2016 09:27:47 Upper respiratory infection 11735192 J06.9 Morbid obesity 204961559 E66.01 Chronic he adache disorder 026869570 G44.89 [id number] Larrybibifabrice Avilajanekaroline [facility] (Peds) [address] [place] [address] 04/20/2016 11:19:50 04/22/2016 14:25:50 Hyponatremia 68723251 E87.1 Upper resp iratory infection 51415366 J06.9 [id number] [facility] (Peds) [address] [place] [address] 07/29/2016 09:16:17 07/29/2016 09:29:31 Active or passive immunization 272213425 Z23 [id number] Diegosaqibfabrice Avilaleland [facility] (Peds) [address] [facility] [place] [address] 07/29/2016 09:47:34 08/05/2016 10:22:26 Abrasion 156592174 T14.8 Morbid obesity 951607469 E66.01 Vitamin D deficiency 347 95938 E55.9 [id number] MD [facility] [address] [place] [address] 10/06/2016 11:21:52 10/12/2016 17:23:25 Increased body mass index 32204357 E66.9 HIV screening 753867662 Z11.4 Chronic he adache disorder 585873868 G43.719 Vitamin D deficiency 347 47205 E55.9 [id number] MD [facility] [address] [facility] [place] [address] 02/08/2017 10:39:12 02/10/2017 10:47:31 Morbid obesity 975343028 E66.01 Iron defic iency anemia 28081986 D50.9 Chronic he adache disorder 907850272 G43.055 [id number] MD [facility] [address] [facility] [place] [address] 09/21/2017 14:14:13 09/22/2017 12:36:42 Spasm of back muscles 303998291 M62.830 Contact dermatitis 95715 004 L25.9 Active or passive immunization 364243652 Z23 Morbid obesity 404482177 E66.01 [id number] Agustina Mullen MA [facility] (Peds) [address] [facility] [place] [address] 11/24/2017 09:52:24 11/27/2017 17:53:02 Active or passive immunization 005764048 Z23 [id number] Venecia Yeh 14 IM 4 [facility] Dr Singh [address] [place] [address], [place] [address] 06/25/2019 09:53:47 06/26/2019 14:20:07 Vitamin D deficiency 68010462 E55.9 Loss of hair 240276166 L 65.9 Posterior rhinorrhea 758 48817 R09.82 Migraine without aura 56 562551 G43.009 Adult heal th examination 539282646 Z00.00 [id number] Venecia Yeh 14 IM [address] [facility] [place] [address] 08/08/2019 08:23:20 08/09/2019 09:11:48 Facial swelling 376434810 R22.0 [id number] MD [place] Francis [address] [place] [address] [place] [address] 12/18/2019 08:42:35 12/19/2019 12:32:12 Abscess of skin and/or subcutaneous tissue 02601755 L02.91 [id number] MD [place] Francis [address] [place] [address] [place] [address] 03/12/2020 09:26:01 03/13/2020 13:10:54 Cellulitis of skin 521048996 L03.90 [id number] NHI Clarke [address] [facility] [address] [place] [address] [place] [address] 03/16/2020 09:13:34 03/17/2020 12:34:49 Cellulitis of skin 803428690 L03.90 [id number] NHI [place] [address] [place] [address] [place] [address] 05/26/2020 14:17:27 05/28/2020 14:59:45 Irregular periods 24129943 N92.6 History an d physical examination, pre-employment 340476766 Z02.1 Tuberculos is screening 145376608 Z11.1 Body mass index 30+ - obesity 267635336 Z68.39 Administra tion of influenza vaccine 20292998 Z23 [id number] TUTU Nguyen 14 OB [address] [facility] [place] [address] 06/11/2020 09:33:55 06/12/2020 11:19:33 Gynecologic examination 86843551 Z01.419 Family mirna nning surveillance 030858759 Z30.09 Body mass index 40+ - severely obese 869749557 Z68.41 Abnormal u terine bleeding 9909312269 9100 N93.9 [id number] TUTU Nguyen 14 OB [address] [facility] [place] [address] 01/12/2021 10:52:45 01/13/2021 06:49:02 Routine care 366868643 Z34.01 Family his tory of Spina bifida 531024922 Z82.79 [id number] TUTU Nguyen 14 OB [address] [facility] [place] [address] 02/11/2021 10:15:26 02/12/2021 13:27:21 Routine care 474273971 Z34.01 Low back p ain in 5483886053 106 O26.666 [id number] DELPHINE Enriquez 14 IM [address] [facility] [place] [address] 12/20/2021 16:17:50 12/22/2021 13:34:47 Adult health examination 015767388 Z00.00 Iron defic iency anemia 19760468 D50.9 Headache f ollowing lumbar puncture 390718752 G97.1 Body mass index 40+ - severely obese 147185725 Z68.41 [id number] NHI Clarke 14 IM [address] [facility] [place] [address] 01/31/2022 11:36:50 02/01/2022 15:31:11 Acute right otitis media 748496892 H66.91 [id number] NHI Clarke 14 PEDS [address] [facility] [place] [address] 03/03/2022 12:01:09 03/07/2022 14:46:21 Administration of influenza vaccine 81948887 Z23 [id number] YUNI Hightower NP [facility] [address] [place] [address] 03/09/2022 12:27:35 03/25/2022 14:45:34 Acute sinusitis 87113874 J01.90 [id number] YUNI Hightower NP [facility] e - [facility] Medical [facility] [address] [place] [address] 06/02/2022 15:44:11 06/09/2022 14:29:53 Seasonal allergic rhinitis 662349700 J30.2 [id number] TUTU Nguyen 14 OB [address] [facility] [place] [address] 07/25/2023 13:59:37 07/26/2023 08:36:37 Routine gynecologic examination done 2907573060 9101 Z01.419 Body mass index 40+ - severely obese 403005170 Z68.41 Trying to conceive 27448 9001 Z31.9 History of abnormal cervical Papanicolaou smear 632960787 Z87.42 [id number] MD [place] Daniels 14 IM [address] [facility] [place] [address] 08/03/2023 08:55:15 08/09/2023 13:29:04 Morbid obesity 249625596 E66.01 27559745 Z33.1 Headache 80086040 R51.9 [id number] TUTU Nguyen 14 OB [address] [facility] [place] [address] 08/15/2023 11:05:18 08/16/2023 12:41:18 Early stage of 186648833 Z34.90 Subchorionic hematoma 60 5920917 O41.8X99 [id number] TUTU Nguyen 14 OB [address] [facility] [place] [address] 09/18/2023 09:24:07 09/19/2023 19:45:49 Routine care 294994248 Z34.01 Body mass index 40+ - severely obese 731141305 Z68.41 [id number] MD [place] Angel 14 OB [address] [facility] [place] [address] 10/30/2023 11:09:44 11/01/2023 11:24:27 Routine care 856413228 Z34.92 Loss of hair 551489001 L 65.9 Past pregn pretty history of hemorrhage 118097782 Z87.[address] reptococcus carrier 7353670625 103 Z22.330 RhD negative 753340629 Z 01.83 Morbid obesity 634460254 E66.01 Varicella non-immune 371 300440 Z78.9 [id number] MD [place] Francis 14 IM [address] [facility] [place] [address] 02/02/2024 15:39:52 02/07/2024 13:52:24 Viral syndrome 834091287 B34.9 [id number] MD [place] Frausto 14 IM [address] [facility] [place] [address] 04/25/2024 11:45:30 04/30/2024 10:24:46 Morbid obesity 900342449 E66.01 [facility] 64340030 G43.90 9 Health Concerns Section Related Observation LastModified by Organization Detai ls LastModified Time None Recorded Concern Status LastModified by Organization Details LastModified Time None Recorded Advance Directives Directive None Recorded Payers Encounter Date Sequence Insurance Name Policy Number Policy Dorman Covered Member ID Dorman Member ID Guarantor Name 08/15/2023 2 [facility] - DOS ON OR AFTER 20 (MEDICAID REPLACEMENT - HMO) Mary Licona [id number] Mary Ana Rosa Chipol 08/15/2023 1 [employer] - CIGNA (PPO) [id number] Mary Ana Rosa Chipol [id number] Mary Ana Rosa Chipol 09/18/2023 2 [facility] - DOS ON OR AFTER 20 (MEDICAID REPLACEMENT - HMO) Mary Licona [id number] Mary Ana Rosa Chipol 09/18/2023 1 [employer] - [employer]IG[employer] (PPO) [id number] Mary Ana Rosa Chipol [id number] Mary Ana Rosa Chipol 10/30/2023 2 [facility] - DOS ON OR AFTER 20 (MEDICAID REPLACEMENT - HMO) Mary Licona [id number] Mary Ana Rosa Chipol 10/30/2023 1 [employer] - CIGNA (PPO) [id number] Mary Ana Rosa Chipol [id number] Mary Ana Rosa Chipol 02/02/2024 2 [facility] - DOS ON OR AFTER 20 (MEDICAID REPLACEMENT - HMO) Mary Licona [id number] Mary Ana Rosa Chipol 02/02/2024 1 [employer] - CIGNA (PPO) [id number] Mary Ana Rosa Chipol [id number] Mary Ana Rosa Chipol 04/25/2024 2 [facility] - DOS ON OR AFTER 20 (MEDICAID REPLACEMENT - HMO) Mary Licona [id number] Mary iSngh 04/25/2024 1 [facility]-[employer] - INSURANCE [employer]IGN ADMINISTRAT[employer] - CIGSO (PPO) [id number] Mary Singh [id number] Mary Singh Notes Date Note Type Note Provider Name and Address Organization Details Recorded Time 08/15/2023 text/html Pt is here relat ed to some occasional mild pulling sensations in the pelvic region when she stands up. Pt denies pelvic pain or vaginal bleeding. Pt had OB US on 08/10/23 that showed 5W 3D, no pole, no FHT. subchorionic hemorrhage seen. Pt denies any other complaints. TUTU Nguyen Attn: Accounting, [address] [place], [place], [address] [place] [address], [facility] - [facility] 08/15/2023 11:40:28 09/18/2023 text/html Pt is here for n ew OB appointment. pt denies any complaints. TUTU Nguyen Attn: Accounting,[address] [place], [address], [place] [facility] 09/18/2023 12:56:32 10/30/2023 text/html See waldo w sheet. Deyvi James MD Attn: Accounting, [address] [place], [address], [place] [facility] 10/30/2023 13:12:01 02/02/2024 text/html 23 yo F presents with sore throat, congestion and now having green drainage and sinus headaches last 4 days. No fever. Has not really been taking anything for the symptoms She is 30.2 weeks and follows with M in [place]. Ramez Interiano MD Attn: Accounting, [address] [facility], [place], [address], [place] [facility] 02/06/2024 13:40:13 04/25/2024 text/html 24 yo female presenting s/p 04/03. She was managed by MFM at [facility] for her . Her was complicated by obesity, proteinuria, hx hemorrhage. She reports since delivering she has been having constant left ear pain. She is concerned she has an infection. She states every time she turns her head she has a shooting pain into her lutheran area. The overlying skin on her left cheek does not feel sensitive.She denies hearing loss. Her right side is unaffected.She reports she was taking topiramate previously for migraine prevention which had worked for over 10 years. It was stopped during her . She is requesting this to be re-started. She states the pain Feels like an earache .Pt denies dizziness, syncope, change in vision, congestion, sore throat, nausea, vomiting, chest pain, cough, SOB, orthopnea, abdominal pain, diarrhea, constipation, or difficulty urinating. Marian Castorena MD Attn: Accounting,[address] [place], [address], [facility] 04/29/2024 14:38:26 OBGyn Episode Ob Episode Information Episode Created Date Number of Fetuses Patient Bloodtype Patient rh Status Prepregnancy Weight lbs Domestic Partner Domestic Partner Phone Father Name Share Dairy Farmer Status 08/09/19 24 1 O Negative CLOSED Fetus Data First Name Last Name Admitted to NICU Weight (g) Sex Living Outcome Pediatric Complications Fetus ID Race Codes Race Delivery Type M [id number] Problems Problem Notes boy yes to circumcision, yes to epidural, unsure of breast or bottle Problem Name Start Date End Date Resolution Snomed Code Not e Past history of hemorrhage [id number] co manage with mfm and obgyn Migraine [id number] mfm stoppe d topiramate and start tylenol Family history of Spina bifida [id number] co manage with mfm Morbid obesity 08/03/2023 [id number] pt e ducated on risk and discussed safe lifestyle modifications in . Pt to see obgyn here and co-manage with mfm RhD negative [id number] educate d on need of rhoGAM and timing of injections Proteinuria [id number] Group B Streptococcus carrier [id number] GBS in urine 09/18/23 Varicella non-immune [id number] Recommend vaccine after delivery. Francisco Javier Calculation FRANCISCO JAVIER Calculation Method Initial Francisco Javier Date Initial Exam Date Initial Exam Provider Initial Ultrasound Date Last Menstrual Period Date Ultra Sound Weeks Gestation Conception by IVF Embryo Age at Transfer Date of Transfer 04/02/2009/18/19 24 [email or web address] 08/28/2023 06/27/2023 7 Eighteen To Twenty Week Francisco Javier Update Ultra Sound Date Fundal Height At Umbil Quickening Date Ultra Sound Latest Weeks Gestation Final Francisco Javier Confirmed By Final Francisco Javier Confirmed Date Final Francisco Javier Date Ultra Sound Latest Days Gestation 08/28/19 24 7 [email or web address] 08/31/2023 04/10/20 24 5 Pre-ashley Flowsheet Flowsheet Date 08/15/2023 Herrera Score Blood Edema Fundus Height Fundus Units Glucose Ketones Leukocytes Nitrite Labor Signs Protein Cervic Dilation Cervic Effacement Cervic Station Type Weight in lbs Pre/Post Dialysis Refused With clothes 309.31824059574 BP Diastolic BP Location Tested BP Systolic BP Type 80 125 sitting Fetus Heart Rate Present Fetus Movement Comments Flowsheet Date 09/18/2023 Herrera Score Blood Edema Fundus Height Fundus Units Glucose Ketones Leukocytes Nitrite Labor Signs Protein Cervic Dilation Cervic Effacement Cervic Station neg none none negative none neg Type Weight in lbs Pre/Post Dialysis Refused With clothes 306.915328941299 BP Diastolic BP Location Tested BP Systolic BP Type 81 138 sitting 85 130 sitting Fetus Heart Rate Present Fetus Movement Comments Pt here for new OB appointme nt. Pt denies any complaints. OB US on 08/28/23 showed follow up US showed single live IUP 7 weeks 5 days and FRANCISCO JAVIER 04/10/2024 and showed subchorionic hemorrhage decreasing in [...] in lbs Pre/Post Dialysis Refused With clothes 308.546426682784 BP Diastolic BP Location Tested BP Systolic [...] in lbs Pre/Post Dialysis Refused With clothes 321.987892184170 BP Diastolic BP Location Tested BP Systolic BP Type 82 R arm 118 sitting Fetus Heart Rate Present Fetus Movement Comments Flowsheet Date 04/25/2024 Herrera Score Blood Edema Fundus Height Fundus Units Glucose Ketones Leukocytes Nitrite Labor Signs Protein Cervic Dilation Cervic Effacement Cervic Station Type Weight in lbs Pre/Post Dialysis Refused With clothes 302.598742998497 BP Diastolic BP Location Tested BP Systolic [...] At Estimated Date of Delivery false Thalassemia (Maltese, Swedish, Mediterranean, Or Background): MCV < 80 false Neural Tube Defect (Meningom yelocele, Spina Bifida, Or Anencephaly) true pt sister Congenital Heart Defect false Down Syndrome false Holger-Sachs (eg, Latter Day, Cajun, Anguillan-Georgian) f alse Vanessa Disease false Sickle Cell Disease Or Trait () false Hemophilia Or Other Blood Disorders false Muscular Dystrophy false Cystic Fibrosis false Fair[place]'s Chorea false Mental Retardation/Autism true pt sis [...] ed By 09/18/2023 Anticipated course of care [facility] 09/18/2023 Alcohol [facility] 09/18/2023 Intimate partner violence fe rnstrn 09/18/2023 Environmental/work hazards f [facility] 09/18/2023 Screening for aneuploidy perfecto tr 09/18/2023 Nutrition counseling ; special diet; dietary precautions (mercury, listeriosis) [facility] 09/18/2023 Childbirth classes/hospital facilities [facility] 09/18/2023 HIV and other routine tests [facility] 09/18/2023 Risk factors identif ied by history [facility] 09/18/2023 Weight gain counseling [facility] 09/18/2023 Exercise [facility] 09/18/2023 Teratogens [facility] 09/18/2023 Use of any medicatio ns (including supplements, vitamins, herbs, or OTC drugs) [facility] 09/18/2023 [facility] 09/18/2023 Sexual activity [facility] 09/18/2023 Tobacco/smoking cess ation counseling (ask, advise, assess, assist, and arrange) [facility] 09/18/2023 Illicit/recreational drugs f [facility] 09/18/2023 Dental care [facility] 09/18/2023 Travel [facility] 09/18/2023 Seat belt use [facility] 09/18/2023 Indications for ultrasonography [facility] 09/18/2023 Avoidance of saunas or hot tubs [facility] 09/18/2023 Toxoplasmosis precautions (cats/raw meat) [facility] Second Trimester Discussed Date Discussion Item Discussion [...] Method Maternal HG B and HCT Levels Ob Episode Information Episode Created Date Number of Fetuses Patient Bloodtype Patient rh Status Prepregnancy Weight lbs Domestic Partner Domestic Partner Phone Father Name Share Dairy Farmer Status 08/03/19 22 1 CLOSED Fetus Data First Name Last Name Admitted to NICU Weight (g) Sex Living Outcome Pediatric Complications Fetus ID Race Codes Race Delivery Type 3146.56 [id number] F [id number] Vaginal Francisco Javier Calculation FRANCISCO JAVIER Calculation Method Initial Francisco Javier Date Initial Exam Date Initial Exam Provider Initial Ultrasound Date Last Menstrual Period Date Ultra Sound Weeks Gestation Conception by IVF Embryo Age at Transfer Date of Transfer 0 Eighteen To Twenty Week Francisco Javier Update Ultra Sound Date Fundal Height At Umbil Quickening Date Ultra Sound Latest Weeks Gestation Final Francisco Javier Confirmed By Final Francisco Javier Confirmed Date Final Francisco Javier Date Ultra Sound Latest Days Gestation 0 0 Menstrual History Last Menstrual Date Menses Monthly On Bcp Conception Prior Menses Frequency Hcg Plus Date Menarche Onset Age Delivery Information Delivery Date Delivery Type Labor Anesthesia Weeks Gestation Incision Type Labor Labor Length Hrs Delivered By Post Complications Tubal Sterilization Discharge Date Comments 2 39 false postpart u m hemorrhag e Discharge Information Feeding Method Contraceptive Method Maternal HG B and HCT Levels Ob Episode Information Episode Created Date Number of Fetuses Patient Bloodtype Patient rh Status Prepregnancy Weight lbs Domestic Partner Domestic Partner Phone Father Name Share Dairy Farmer Status 11/18/19 21 1 O Negative CLOSED Fetus Data First Name Last Name Admitted to NICU Weight (g) Sex Living Outcome Pediatric Complications Fetus ID Race Codes Race Delivery Type [id number] Problems Problem Notes Rubella and varicella non im mune. Recommend vaccine after delivery. Avoid sick contacts.Pt educated on COVID vaccine and FLu vaccine. Pt declined at this time and verbalized understanding of risks. Problem Name Start Date End Date Resolution Snomed Code Not e Family history of Spina bifida [id number] sister of dontrell nt has Spina bifida and CP. Pt referred to [facility] for co management. Started pt on additional 400 mcg of folic acid with PNV. Low back pain in [id number] Pt educated on management options and importance of stretching and massage. Pt opts for PT referral. maternity belt ordered. Pt educated on warning signs and when to call office. Pt also notified when to go to L [facility]. RTC in 4 weeks and call office if issues occur. RhD negative [id number] aware o f need for routine rhoGAM and as needed if issues occur. Francisco Javier Calculation FRANCISCO JAVIER Calculation Method Initial Francisco Javier Date Initial Exam Date Initial Exam Provider Initial Ultrasound Date Last Menstrual Period Date Ultra Sound Weeks Gestation Conception by IVF Embryo Age at Transfer Date of Transfer 07/27/19 22 07/13/20 21 [email or web address] 10/19/2020 0 Eighteen To Twenty Week Francisco Javier Update Ultra Sound Date Fundal Height At Umbil Quickening Date Ultra Sound Latest Weeks Gestation Final Francisco Javier Confirmed By Final Francisco Javier Confirmed Date Final Francisco Javier Date Ultra Sound Latest Days Gestation 0 07/27/19 22 0 Pre-ashley Flowsheet Flowsheet Date 01/12/2021 Herrera Score Blood Edema Fundus Height Fundus Units Glucose Ketones Leukocytes Nitrite Labor Signs Protein Cervic Dilation Cervic Effacement Cervic Station neg none none negative none neg Type Weight in lbs Pre/Post Dialysis Refused With clothes 258.673826155818 BP Diastolic BP Location Tested BP Systolic BP Type 74 120 sitting Fetus Heart Rate Present A 145 Present Fetus Movement Comments Pt is here for new ob appoin tment. PT denies any complaints. Pt educated on care, labs, and precautions. Discuss CF carrier screening. PT opts for screening. Pt reports her sister of patient has Spina bifida and CP. Pt referred to [facility] for co management. Pt educated on warning signs and given ER precautions. RTC in 4 weeks and call office if issues occur. Flowsheet Date 02/11/2021 Herrera Score Blood Edema Fundus Height Fundus Units Glucose Ketones Leukocytes Nitrite Labor Signs Protein Cervic Dilation Cervic Effacement Cervic Station neg none none negative none neg Type Weight in lbs Pre/Post Dialysis Refused With clothes 265.042300151856 BP Diastolic BP Location Tested BP Systolic BP Type 74 120 sitting Fetus Heart Rate Present A 147 Present Fetus Movement Comments Pt is here for OB appointmen t. Pt reports occasional mild low back pain that is relieved with stretching or massage. Pt denies any pain at this time. Pt denies any pelvic pain, vaginal bleeding, or leaking of fluid.pt denies flank pain. Pt educated on management options and importance of stretching and massage. Pt opts for PT referral. maternity belt ordered. Pt educated on warning signs and when to call office. Pt also notified when to go to L and D. RTC in 4 weeks and call office if issues occur. Pt reports saw MFM yesterday and they have her set up for genetic testing and anatomy US in 4-5 weeks. pt declined quad screening today. Records requested. Pt denies any other complaints. Pt notified to follow up with MFM as scheduled and RTC in 4 weeks and as needed if issues occur. Menstrual History Last Menstrual Date Menses Monthly On Bcp Conception Prior Menses Frequency Hcg Plus Date Menarche Onset Age 0610/19/2020 Genetic Screening And Infection History Question Response Note Patient's Age Will Be 35 Yea rs Or Older At Estimated Date of Delivery false Thalassemia (Maltese, Swedish, Mediterranean, Or Background): MCV < 80 false Neural Tube Defect (Meningom yelocele, Spina Bifida, Or Anencephaly) true sister of patient has Sp marguerite bifida and CP Congenital Heart Defect false Down Syndrome false Holger-Sachs (eg, Latter Day, Cajun , Anguillan-Georgian) false Vanessa Disease false Sickle Cell Disease Or Trait () false Hemophilia Or Other Blood Disorders false Muscular Dystrophy false Cystic Fibrosis false Fair[place]'s Chorea false Mental Retardation/Autism true sister and brother has autism If Yes, Was Person Tested For Fragile X? false Other Inherited Genetic Or C hromosomal Disorder false Maternal Metabolic Disorder (eg, Type 1 Diabetes, PKU) false Patient Or Baby's Father Had A Child With Defects Not Listed Above false Recurrent Loss, Or A Stillbirth false Medications (including Suppl ements, Vitamins, Herbs, OTC Drugs), Illicit/Recreational Drugs, Alcohol true PNV If Yes, Agent(s) And Strength/Dosage false Any Other Genetic History false Live With Someone With TB Or Exposed To TB false Patient Or Partner Has Histo ry Of Genital Herpes false Rash Or Viral Illness Since Last Menstrual Period false History Of STD, Gonorrhea, C hlamydia, HPV, Syphilis false Other Infection History false History of HIV false History of Hepatitis false Prior GBS-infected child false Plans and Education First Trimester Discussed Date Discussion Item Discussion Note Discuss ed By 01/12/2021 [facility] Alcohol [facility]abrice 01/12/2021 Intimate partner violence fe rnstrn 01/12/2021 Environmental/work hazards f [facility] 01/12/2021 Screening for aneuploidy perfecto nstrn 01/12/2021 Nutrition counseling ; special diet; dietary precautions (mercury, listeriosis) fertrfabrice 01/12/2021 [facility] facilities [facility] HIV and other routine tests [facility] 01/12/2021 Risk factors identif ied by history [facility] 01/12/2021 Weight gain counseling [facility] 01/12/2021 Exercise [facility] 01/12/2021 Teratogens [facility] 01/12/2021 Use of any medicatio ns (including supplements, vitamins, herbs, or OTC drugs) [facility] 01/12/2021 f[facility] 01/12/2021 Sexual activity [facility] 01/12/2021 Tobacco/smoking cess ation counseling (ask, advise, assess, assist, and arrange) [facility] 01/12/2021 Illicit/recreational drugs f ernstrn 01/12/2021 Dental care [facility] 01/12/2021 Travel [facility] 01/12/2021 Seat belt use [facility] 01/12/2021 Indications for ultrasonography [facility] 01/12/2021 Avoidance of saunas or hot tubs [facility] 01/12/2021 Toxoplasmosis precautions (cats/raw meat) [facility] Second Trimester Discussed Date Discussion Item Discussion Note Discuss ed By 02/11/2021 [facility] anning/tubal sterilization [facility] 02/11/2021 Depression screening (when indicated) [facility]21 [facility] lab [facility] 02/11/2021 Signs and symptoms of labor [facility] 02/11/2021 Intimate partner violence fe rnstrn 02/11/2021 Tobacco/smoking cess ation counseling (ask, advise, assess, assist, and arrange) [facility] Third Trimester Discussed Date Discussion Item Discussion Note Discuss ed By Delivery Information Delivery Date Delivery Type Labor Anesthesia Weeks Gestation Incision Type Labor Labor Length Hrs Delivered By Post Complications Tubal Sterilization Discharge Date Comments Discharge Information Feeding Method Contraceptive Method Maternal HG B and HCT Levels
--- OUTSIDE RECORDS SUMMARY | 2024-05-10 20:14 | XMS_ITS | Continuity of Care Document ---
Author Organization [facility] [place] 14 Address [address] [facility] [address] [place] [address] Care Team Providers Care Senior Licensing Manager Name Role Phone GLENNA MAHAJAN Primary Care Provider Assessment No assessment recorded. Plan of Treatment Reminders Order Date Submit Date Provider Last Modified By Organization Details Last Modified Time Details Appointments ANY 30 2024 08:15A Jennie Mahajan MD Not available Not available Not available Lab None recorded. Referral None recorded. Procedures None recorded. Surgeries None recorded. Imaging None recorded. Medication Orders topiramat e 50 mg tablet 2023 024 [id number], [address] , [place], [place], [id number], 04/25/2024 12:47:50 Patient TargetsNo targets recorded. Patient Instructions Encounter Date Encounter Id Patient Instructions Last Modified By Organization Details Last Modified Time 04/25/2024 [id number] A healthy lifestyle: care instructions [email or web address] Not available 04/25/2024 12:47:43 I was present in the office and available during the visit. I discussed the patient? s presentation, findings, assessment and plan with the resident during or immediately after the time of service. I agree with the resident? s findings, assessment, and plan as documented in the note above. Lonnie Castorena MD. [facility] [email or web address] Not available 04/29/2024 14:38:15 Reason for Referral None Reported. Results Created Date Observation Date Name Description Value Unit Range Abnormal Flag Note LastModifiedBy Organization Detail LastModifiedTime 08/11/19 24 08/11/2023 US, obste tric, 1st trime ster No observ ation record ed. basilio [place] [facility] Scheduling [address] [facility] , [place], [address], 08/15/2023 11:34:26 08/28/19 24 08/28/2023 US, obste tric, 1st trime ster No observ ation record ed. [email or web address] [facility] Scheduling [address] [facility] [place], [address], 08/31/2023 15:24:09 10/13/19 24 10/13/2023 US, obste tric, 1st trime ster No observ ation record ed. basilio [place] [facility] Scheduling [address] [facility] [place], [address], 10/17/2023 09:42:21 10/30/19 24 10/13/2023 US, obste tric, 1st trime ster No observ ation record ed. [email or web address] [facility] [address], [address], 10/31/2023 16:39:12 11/24/19 24 11/24/2023 US, obste tric, mater nal evalu ation + anato my No observ ation record ed. [email or web address] [facility] () [address] [facility], [place], [address], 12/04/2023 13:07:13 11/24/19 24 11/24/2023 US, obste tric, mater nal evalu ation + anato my No observ ation record ed. [email or web address] Not Available 2023 13:07:22 Result Notes None recorded. Problems Name Problem SNOMED Code Status Onset Date Resolution Date Notes Provider Name and Address Organization Details Recorded Time Migraine without aura 26557178 Completed 201903/12/2020 YUNI Hightower NP Attn: Accounting ,[address] [place], [address] , [facility] 0 10:03:35 Adult health examinat ion Completed 201903/12/2020 YUNI Hightower NP Attn: Accounting ,[address] [facility], [place], [address] , [facility] 0 10:03:21 Loss of hair 512299902 Completed 201903/12/2020 YUNI Hightower NP Attn: Accounting ,[address] [facility], [place], [address] , [facility] 0 10:03:33 Posterio r rhinorrh ea 60962666 Completed 201903/12/2020 YUNI Hightower NP Attn: Accounting ,[address] [place], [place], [address] [place] [address] , [facility] 0 10:03:39 Facial swelling 183072652 Completed 201903/12/2020 YUNI Hightower NP Attn: Accounting ,[address] [place], [place], [address] [place] [address] , [facility] 0 10:03:31 Pregnanc y 97871864 Completed 202008/02/2021 Glenna Mahajan MD Attn: Accounting ,[address] [place], [address] , [facility] 4 12:18:22 Family history of Spina bifida 646729637 Completed sister of patient has Spina bifida and CP. Pt referred to [facility] for co manageme nt. Started pt on addition al 400 mcg of folic acid with PNV. TUTU Nguyen Attn: Accounting ,[address] [facility], [place], [address] , [facility] 2 15:29:26 Low back pain in pregnanc y 64208407903 06 Completed Pt educated on manageme nt options and importan ce of stretchi ng and massage. Pt opts for PT referral . maternit y belt ordered. Pt educated on warning signs and when to call office. Pt also notified when to go to [facility] RTC in 4 weeks and call office if issues occur. TUTU Nguyen Attn: Accounting ,[address] [facility], [place], [address] , [place] [facility] 2 15:29:26 RhD negative 193086233 Completed aware of need for routine rhoGAM and as needed if issues occur. TUTU Nguyen Attn: Accounting ,[address] [facility], [place], [address] , [place] [facility] 2 15:29:26 Urinary tract infectio us disease 57902920 Completed 03/12/2020 YUNI Hightower NP Attn: Accounting ,[address] [facility], [place], [address] , [place] [facility] 0 10:03:41 Otalgia 67174518 Completed 06/25/2019 Venec[place] vasquez[place] [facility] 0 10:46:29 Morbid obesity 478421797 Completed 03/12/2020 Glenna Mahajan MD Attn: Accounting ,[address] [facility], [place], [address] , [place] [facility] 4 09:49:38 Morbid obesity 670233210 Active 2023 pt educated on risk and discusse d safe lifestyl e modifica tions in pregnanc y. Pt to see obgyn here and co-manag e with m Deyvi James MD Attn: Accounting ,[address] [facility], [place], [address] , [place] [facility] 4 13:11:28 Headache 67315832 Active 2023 Glenna Mahajan MD Attn: Accounting ,[address] [facility], [place], [address] , [place] [facility] 4 09:49:50 Pregnanc y 87759951 Completed 202304/25/2024 Glenna Mahajan MD Attn: Accounting ,[address] [facility], [place], [address] , [place] [facility] 4 12:18:22 Family history of Spina bifida 638472893 Completed co manage with [facility] Deyvi James MD Attn: Accounting ,[address] [facility], [place], [address] [place] [address] , [place] [facility] 4 13:11:28 Morbid obesity 665098463 Completed 2023 pt educated on risk and discusse d safe lifestyl e modifica tions in pregnanc y. Pt to see obgyn here and co-manag e with [facility] Deyvi James MD Attn: Accounting ,[address] [facility], [place], [place], [address] [place] [address] , [place] [facility] 4 13:11:28 RhD negative 545381477 Completed educated on need of rhoGAM and timing of injectio ns Deyvi James MD Attn: Accounting ,[address] [place], [place], [address] [place] [address] , [place] [facility] 4 13:11:28 Past pregnanc y history of postpart um hemorrha ge 653428579 Completed co manage with [facility] and obgyn Deyvi James MD Attn: Accounting ,[address] [place], [place], [address] [place] [address] , [place] [facility] 4 13:11:28 Migraine 72460350 Completed [facility] stopped topirama te and start tylenol Deyvi James MD Attn: Accounting ,[address] [place], [place], [address] [place] [address] , [place] [facility] 4 13:11:28 Proteinu hailee 33724644 Completed Deyvi James MD Attn: Accounting ,[address] [place], [address] [place] [address] , [place] [facility] 4 13:11:28 Group B Streptoc occus carrier [id number] 03 Completed GBS in urine 09/18/23 Deyvi James MD Attn: Accounting ,[address] [place], [address] [place] [address] , [place] [facility] 4 13:11:28 Varicell a non-immu ne 999590754 Completed Recommen d vaccine after delivery . Deyvi James MD Attn: Accounting ,[address] [facility], [place], [address] , [place] [facility] 4 13:11:28 Migraine 19444706 Active 2023 Glenna Mahajan MD Attn: Accounting ,[address] [facility], [place], [address] , [place] [facility] 4 12:46:34 Vitamin D deficien cy 08836529 Completed 03/12/2020 YUNI Hightower NP Attn: Accounting ,[address] [facility], [place], [address] , [place] [facility] 0 10:03:44 Astigmat ism 96832804 Completed 03/12/2020 YUNI Hightower NP Attn: Accounting ,[address] [facility], [place], [address] , [place] [facility] 0 10:03:46 Caf? ? ? [employer] la[employer] spots 870250470 Completed 06/25/2019 Ven[place] [facility] 0 10:46:04 Acute sinusiti s 19158119 Completed 03/12/2020 YUNI Hightower NP Attn: Accounting ,[address] [facility], [place], [address] , [place] [facility] 0 10:03:19 Headache 42747737 Completed 06/25/2019 Glenna Mahajan MD Attn: Accounting ,[address] [facility], [place], [address] , [place] [facility] 4 09:49:50 Problem Notes None recorded. Procedures Surgical History Date Name Laterality Status Provider Name and Address Organization Details Recorded Time 07/25/19 24 Date of Last Pap Smear completed DELPHINE [place] [facility] 07/25/2023 14:13:14 05/08/19 13 Tonsillectomy completed Amanda [place]r [place] [facility] 07/02/2014 10:50:27 05/08/19 13 Adenoidectomy completed [place]r [place] [facility] 07/02/2014 10:50:27 biopsy of skin completed DELPHINE Tyson [place] - [facility] 07/25/2023 14:14:32 Imaging Results None recorded. Procedure [...] e 50 mcg/actua tion nasal spray,[employer] [place] 1 spray every day by intranas al [...] Updated DateTime 4 165.1 cm 50.3 kg/m2 116095. 95 g 97.7 [degF] 62 /min 18 /min 97 % 97 % 112 mm[Hg] 78 mm[Hg] Jailyn Saba [place] [facility] 4 12:00:19 Social History Question Answer Notes LastModified by Organizat ion Details LastModified Time Tobacco Smoking Status Never Smoker Amanda Orr MA [place], [place] - [facility] 07/02/2014 10:50:27 What Is Your Level Of Alcohol Consumption? None Information not available 12/20/2021 Animal Exposure? Yes [email or web address] Informat ion not available 07/02/2014 Do You Wear A Helmet When Biking? No Information not available 07/02/2014 Are You Or Have You Been Involved With Bullying? No [email or web address] Information not available 07/02/2014 What Is Your Level Of Caffeine Consumption? Moderate Information not available 05/26/2020 What Type Of Sliver Machine Operator Do You Use? None [email or web address] Information not available 07/02/2014 In The 14 [...] Type Of Diet Are You Following? REGULAR Information not available 07/02/2014 Do You Or Have You Ever Used E-cigarettes Or Vape? Never Used Electronic Cigarettes Information not available 06/11/2020 Have There Been Any Changes To Your Family Or Social Situation? No [email or web address] Information no t available 07/02/2014 Are There Any Guns Present In Your Home? No Information not available 07/02/2014 What Is Your Home Situation? Both Parents Lives With Mom, Dad, 1 Brother , 1 Sister [email or web address] Information not available 07/02/2014 Do You Use Insect Repellent Routinely? Yes [email or web address] Information not available 07/02/2014 Car Seat Type Or Seat Belt? Seat Belt Information not available 07/02/2014 Parent Involvement? Both Parents Involved [email or web address] Information not available 07/02/2014 Riding In Car Front Seat? Yes [email or web address] Information not available 07/02/2014 What Was The Date Of Your Most Recent Tobacco Screening? 04/25/2024 [email or web address] Information not available 04/25/2024 How Many Children Do You Have? 1 Information not available 01/31/2022 What Is Your Parents' Marital Status? [email or web address] Information not available 07/02/2014 Pool Exposure No [email or web address] Information not available 07/02/2014 What Is Your Relationship Status? Single Information not available 01/31/2022 What Is The Name Of Your School? [employer] Information not available 05/26/2020 Are You Sexually Active? Yes Information not available 01/31/2022 Do You Have Any Siblings? 1 Bro 1 Sis Information not available 07/02/2014 Do You Have Smoke And Carbon Monoxide Detectors In Your Home? Yes [email or web address] Information not available 07/02/2014 Are You Passively [...] 12/20/2021 Do You Use Sunscreen Routinely? Yes [email or web address] Information not available 07/02/2014 Has Tobacco Cessation Counseling Been Provided? Yes Information not available 06/06/2022 On What Date Was Tobacco Cessation Counseling Provided? 04/25/2024 [email or web address] laura Information not available 04/25/2024 Year In School [employer] am[employer] n not available 05/26/2020 Do You Or Have You Ever Used Any Other Forms Of Tobacco Or Nicotine? No Information not available 12/20/2021 Sex: Female Functional Status Question Answer Note LastModified by Organization D etails LastModified Time What is your exercise level? Moderate amada Information not available 05/26/2020 Mental Status None [...] N Blood Diseases N Breast Cancer N COPD N Blood Clots N Depression N Lung Disease N Developmental or Behavioral Disorders N Breast Problem N Premature N Anesthesia Complications N Headaches/Migraines N Anxiety Disorder N Muscle, Joint, or Bone Problems N Vision or Eye Problems N Head Injury/Concussion N Polyps N Infertility N Acid Reflux (GERD) N Cancer N Stroke N ADHD N Endometriosis N Bladder or Kidney Problems N High Cholesterol N Liver Disease N Schizophrenia N Headaches N Ear or Hearing Problems N Thyroid Problems N Kidney or Bladder Problems N GI Problems N Acne N Skin Problems N Eating Disorder N Anemia N Constipation N Heart Attack ([place]) N Ovarian Cancer N Diabetes N Bedwetting N Blood Transfusions N Seizures/Epilepsy N Heart Problems/Murmur N Abuse/Domestic Violence N Allergies N Asthma N Substance Abuse N Hepatitis N Heart Disease N Pre-Eclampsia N Osteoporosis N Heart Failure N Chicken Pox N Autism Spectrum Disorder (ASD) N Gynecological History Statement/Question Response Abnormal Pap [...] completed Glenna Mahajan MD Attn: Accounting,[address] [facility], [place], [place], [address] [place] [address], [facility] 08/03/2023 09:14:55 Novel Eufnqioxr-V2Y6-92, nasal 0 completed Glenna Mahajan MD Attn: Accounting,[address] [facility], [place], [address] [place] [address], [facility] 08/03/2023 09:14:55 HPV, quadrivalent 4 completed Glenna Mahajan MD Attn: Accounting,[address] [place], [address] [place] [address], [facility] 08/03/2023 09:14:55 Meningococcal MCV4O 7 completed Glenna Mahajan MD Attn: Accounting,[address] [facility], [place], [address] [place] [address], [facility] 08/03/2023 09:14:55 Influenza, live, quadrivalent, intranasal 4 completed Glenna Mahajan MD Attn: Accounting,[address] [place], [address] [place] [address], [facility] 08/03/2023 09:14:55 Influenza, live, quadrivalent, intranasal 3 completed Glenna Mahajan MD Attn: Accounting,[address] [place], [address] [place] [address], [place] [facility] 08/03/2023 09:14:56 Influenza, split virus, quadrivalent, PF 9 completed Glenna Mahajan MD Attn: Accounting,[address] [place], [address] [place] [address], [place] [facility] 08/03/2023 09:14:56 meningococcal B, OMV 8 completed Not Available [facility] 05/25/2019 02:39:19 meningococcal B, OMV 8 completed Not Available [facility] 05/25/2019 02:35:50 Influenza, split virus, quadrivalent, PF 0 completed Venecialucila [place] [facility] 06/25/2019 11:07:16 Tdap 0 completed [place] [facility] 06/25/2019 11:07:16 Influenza, split virus, quadrivalent, preservative 1 completed Ny Amaya [place] [facility] 05/27/2020 12:26:13 Influenza, split virus, quadrivalent, PF 2 completed YUNI Hightower NP Attn: Accounting,[address] [place], [address], [place] [facility] 03/07/2022 09:40:22 DTaP 5 completed Glenna Mahajan MD Attn: Accounting,[address] [place], [address], [place] [facility] 08/03/2023 09:14:55 DTaP 0 [...] 07/01/2014 10:26:58 Hib, unspecified formulation 0 completed ANA LAURA [place] [facility] 07/01/2014 10:26:58 Hep [...] completed Glenna Mahajan MD Attn: Accounting,[address] [place], [address], [place] [facility] 08/03/2023 09:14:55 influenza, unspecified formulation 2 completed Kristie [place] [facility] 07/01/2014 10:28:46 influenza, unspecified formulation 4 completed Kristie Snat[place] [facility] 07/01/2014 10:28:46 influenza, unspecified formulation 1 completed Glenna Mahajan MD Attn: Accounting,[address] [place], [address], [place] [facility] 08/03/2023 09:14:55 influenza, unspecified formulation 3 completed Kristie [place] [facility] 07/01/2014 10:28:46 MMR 5 completed Glenna Mahajan MD Attn: Accounting,[address] [place], [address], [place] [facility] 08/03/2023 09:14:55 MMR 0 completed [place]NA LAURA [place] [facility] 07/01/2014 10:29:07 meningococcal MCV4, unspecified formulation 1 completed Kristie AvalosdenverANA LAURA pak [place] [facility] 07/01/2014 10:29:20 IPV 0 completed Kristie AvalosdenverANA [place]UR[place] [facility] 07/01/2014 10:29:47 IPV 5 completed Glenna Mahajan MD Attn: Accounting,[address] [facility], [place], [address], [place] [facility] 08/03/2023 09:14:55 IPV 9 completed Kristie AvalosdenverANA LAURA [place] [facility] 07/01/2014 10:29:47 IPV 1 completed Kristie AvalosdenverANA [place]UR[place] [facility] 07/01/2014 10:29:47 Tdap 0 completed Kristie AvalosdenverANA [place]UR[place] [facility] 07/01/2014 10:30:01 varicella 0 completed Kristie Robbiejanki ANA [place] [facility] 07/01/2014 10:30:20 varicella 0 completed Kristie AvalosdenverANA LAURA [place]ak [place] [facility] 07/01/2014 10:30:20 Past Encounters Encounter ID Performer Location Encounter Start Date Encounter Closed Date Diagnosis/Indication Diagnosis SNOMED-CT Code Diagnosis ICD10 Code [id number] MD Rao Frausto [address] [facility] [place] [address] 04/25/2024 11:45:30 04/30/2024 10:24:46 Morbid obesity 963812131 E66.01 Migraine 69923922 G43.90 9 Health Concerns Section Related Observation LastModified by Organization Detai ls LastModified Time None Recorded Concern Status LastModified by Organization Details LastModified Time None Recorded Payers Encounter Date Sequence Insurance Name Policy Number Policy Dorman Covered Member ID Dorman Member ID Guarantor Name 04/25/2024 2 [facility] - DOS ON OR AFTER 20 (MEDICAID REPLACEMENT - HMO) Mary Licona [id number] Mary Singh 04/25/2024 1 [facility]-[employer] - INSURANCE DESIGN ADMINISTRATORS - [employer]IG[employer] (PPO) [id number] Mary Singh [id number] Mary Singh Notes Date Note Type Note Provider Name and Address Organization Details Recorded Time 04/25/2024 text/html 24 yo female presenting s/p 04/03. She was managed by MFM at [facility] for her . Her was complicated by obesity, proteinuria, hx hemorrhage. She reports since delivering she has been having constant left ear pain. She is concerned she has an infection. She states every time she turns her head she has a shooting pain into her nondenominational area. The overlying skin on her left [...] urinating. Marian Castorena MD Attn: Accounting[address] [place], [address], [facility] 04/29/2024 14:38:26 OBGyn Episode Ob Episode Information Episode Created Date Number of Fetuses Patient Bloodtype Patient rh Status Prepregnancy Weight lbs Domestic Partner Domestic Partner Phone Father Name Wastewater Treatment Engineer Status 08/09/19 24 1 O Negative CLOSED Fetus Data First Name Last Name Admitted to NICU Weight (g) Sex Living Outcome Pediatric Complications Fetus ID Race Codes Race Delivery Type M 15220 Problems Problem Notes boy yes to circumcision, yes to epidural, unsure of breast or bottle Problem Name Start Date End Date Resolution Snomed Code Not e Past history of hemorrhage 448432493 co manage with mfm and obgyn Migraine 46712011 mfm stoppe d topiramate and start tylenol Family history of Spina bifida 354785549 co manage with m Morbid obesity 08/03/2023 460801936 pt e ducated on risk and discussed safe lifestyle modifications in . Pt to see obgyn here and co-manage with mfm RhD negative 441575876 educate d on need of rhoGAM and timing of injections Proteinuria 62779029 Group B Streptococcus carrier 8995205825234 GBS in urine 09/18/23 Varicella non-immune 126503232 Recommend vaccine after delivery. Cici Calculation CICI Calculation Method Initial Cici Date Initial Exam Date Initial Exam Provider Initial Ultrasound Date Last Menstrual Period Date Ultra Sound Weeks Gestation Conception by IVF Embryo Age at Transfer Date of Transfer 04/02/2009/18/19 [email or web address] 08/28/2023 06/27/2023 7 Eighteen To Twenty Week Cici Update Ultra Sound Date Fundal Height At Umbil Quickening Date Ultra Sound Latest Weeks Gestation Final Cici Confirmed By Final Cici Confirmed Date Final Cici Date Ultra Sound Latest Days Gestation 08/28/19 7 [email or web address] 08/31/2023 04/10/20 24 5 Pre- Flowsheet Flowsheet Date 08/15/2023 Herrera Score Blood Edema Fundus Height Fundus Units Glucose Ketones Leukocytes Nitrite Labor Signs Protein Cervic Dilation Cervic Effacement Cervic Station Type Weight in lbs Pre/Post Dialysis Refused With clothes 309.18411953427 BP Diastolic BP Location Tested BP Systolic BP Type 80 125 sitting Fetus Heart Rate Present Fetus Movement Comments Flowsheet Date 09/18/2023 Herrera Score Blood Edema Fundus Height Fundus Units Glucose Ketones Leukocytes Nitrite Labor Signs Protein Cervic Dilation Cervic Effacement Cervic Station neg none none negative none neg Type Weight in lbs Pre/Post Dialysis Refused With clothes 306.829495380989 BP Diastolic BP Location Tested BP Systolic [...] in lbs Pre/Post Dialysis Refused With clothes 308.507627087605 BP Diastolic BP Location Tested BP Systolic [...] in lbs Pre/Post Dialysis Refused With clothes 321.695323044474 BP Diastolic BP Location Tested BP Systolic BP Type 82 R arm 118 sitting Fetus Heart Rate Present Fetus Movement Comments Flowsheet Date 04/25/2024 Herrera Score Blood Edema Fundus Height Fundus Units Glucose Ketones Leukocytes Nitrite Labor Signs Protein Cervic Dilation Cervic Effacement Cervic Station Type Weight in lbs Pre/Post Dialysis Refused With clothes 302.569004311567 BP Diastolic BP Location Tested BP Systolic [...] At Estimated Date of Delivery false Thalassemia (Dominican, Wolof, Mediterranean, Or Background): MCV < 80 false Neural Tube Defect (Meningom yelocele, Spina Bifida, Or Anencephaly) true pt sister Congenital Heart Defect false Down Syndrome false Holger-Sachs (eg, Latter Day, Cajun, Wallisian-Micronesian) f alse Vanessa Disease false Sickle Cell Disease Or Trait () false Hemophilia Or Other Blood Disorders false Muscular Dystrophy false Cystic Fibrosis false Burnett's Chorea false Mental Retardation/Autism true pt sis [...] ed By 09/18/2023 Anticipated course of care [facility] 09/18/2023 Alcohol [facility] 09/18/2023 [facility] Environmental/work hazards f [facility] 09/18/2023 Screening for aneuploidy perfecto [facility] 09/18/2023 Nutrition counseling ; special diet; dietary precautions (mercury, listeriosis) [facility] 09/18/2023 Childbirth classes/hospital facilities [facility] 09/18/2023 HIV and other routine tests [facility] 09/18/2023 Risk factors identif ied by history [facility] 09/18/2023 Weight gain counseling [facility] 09/18/2023 Exercise [facility] 09/18/2023 Teratogens [facility] 09/18/2023 Use of any medicatio ns (including supplements, vitamins, herbs, or OTC drugs) [facility] 09/18/2023 [facility] Sexual activity [facility] 09/18/2023 Tobacco/smoking cess ation counseling (ask, advise, assess, assist, and arrange) [facility] 09/18/2023 Illicit[facility]recreational drugs [facility] 09/18/[facility]23 Dental care [facility] 09/18/2023 Travel [facility] 09/18/2023 Seat belt use fernstrn 09/18/2023 Indications for ultrasonography [facility] 09/18/2023 Avoidance of saunas or hot tubs fernstrn 09/18/2023 Toxoplasmosis precautions (cats/raw meat) fernstrn Second Trimester [...]
--- OUTSIDE RECORDS SUMMARY | 2024-05-10 20:15 | XMS_ITS | Encounter Summary ---
Author Organization [facility] Healthcare Address [address] [place] [address] Care Team Providers Care Ramp Service Employee Name Role Phone Jarred Roy MD Unavailable [phone] EyersElma NP Unavailable No, Physician Primary Care Provider [phone] Reason for Visit * Reason Comments Problem LUND Encounter Details Date Type Department Care Team (Latest Contact Info) Description 03/13/2024 11:36 AM CERAMIC SAW TENDER - 03/13/2024 2:22 PM CERAMIC SAW TENDER Hospital Encounter [address] [id number] Garret Victor MD [address] [address] Mook Villanueva MD [address] [id number] [place] [address] Discharge Disposition: Discharge to home or self care Social History Tobacco Use Types Packs/Day Years Used Date Smoking Tobacco: Never Smokeless Tobacco: Never Alcohol Use Standard Drinks/Week Comments No 0 (1 standard drink = 0.6 oz pur e alcohol) Social Connection and Isolat ion Panel [NHANES] Answer Date Recorded In a typical week, how many times do you talk on the phone with family, friends, or neighbors? More than three times a week 07/21/2021 How often do you get togethe r with friends or relatives? More than three times a week 07/21/2021 How often do you attend chur ch or taoism services? Never 07/21/2021 Do you belong to any clubs o r organizations such as restorationism groups, unions, fraternal or athletic groups, or school groups? No 07/21/2021 How often do you attend meet ings of the clubs or organizations you belong to? Never 07/21/2021 Are you , , di vorced, , never , or living with a partner? Never 07/21/2021 AUDIT-C Answer Date Recorded Q1: How often do you have a drink containing alcohol? Never 10/13/2023 Q2: How many drinks containi ng alcohol do you have on a typical day when you are drinking? Patient does not drink Q3: How often do you have si x or more drinks on one occasion? Never 10/13/2023 Overall Financial Resource Strain (CARDIA) Answe r Date Recorded How hard is it for you to pa y for the very basics like food, housing, medical care, and heating? Not hard at all 07/21/2021 Hunger Vital Sign Answer Date Recorded Within the past 12 months, y ou worried that your food would run out before you got the money to buy more. Never true 07/22/19 22 Within the past 12 months, t he food you bought just didn't last and you didn't have money to get more. Never true 07/21/2021 PRAPARE - Transportation Answer Date Re corded In the past 12 months, has l ack of transportation kept you from medical appointments or from getting medications? No 07/06 In the past 12 months, has l ack of transportation kept you from meetings, work, or from getting things needed for daily living? No 07/21/2021 Housing Stability Vital Sign Answer Abraham e Recorded In the last 12 months, was t here a time when you were not able to pay the mortgage or rent on time? No 07/21/2021 In the last 12 months, how many places have you lived? 1 07/21/2021 In the last 12 months, was t here a time when you did not have a steady place to sleep or slept in a group home (including now)? No 07/21/2021 [place] Depression Scale Answer Date Recorded [place] Depression Scale Total 6 09/03/2021 The thought of harming myself has occurred to me . Never 09/03/2021 Personal Safety Answer Date Recorded Have you ever been in or are you currently in a harmful physical or emotional relationship or is someone making you feel afraid or unsafe? Denies 12/03/2023 Comments Yes Sex and Gender Information Value Date Recorded Sex Assigned at Not on file Legal Sex Female 11:28 PM CERAMIC SAW TENDER Gender Identity Not on file Sexual Orientation Not on file documented as of this encounter Last Filed Vital Signs Vital Sign Reading Time Taken Comments Blood Pressure 123/60 03/13/2024 1:30 PM CERAMIC SAW TENDER Pulse 88 03/13/2024 1:30 PM CERAMIC SAW TENDER Temperature 36.7 ??C (98.1 ??F) 03/13/2024 1 1:42 AM CERAMIC SAW TENDER Respiratory Rate 18 03/13/2024 11:4 2 AM CERAMIC SAW TENDER Oxygen Saturation 97% 03/13/2024 1:30 PM CERAMIC SAW TENDER Inhaled Oxygen Concentration - - Weight 147.1 kg (324 lb 3.2 oz) 024 11:42 AM CERAMIC SAW TENDER Height 165.1 cm (5' 5 ) 03/13/2024 11:4 2 AM CERAMIC SAW TENDER Body Mass Index 53.95 03/13/2024 11:42 AM CERAMIC SAW TENDER documented in this encounter Medications at Time of Discharge vitamin ferrous fumarate-folic () 28 mg iron- 800 mcg tablet Take 1 tablet every day by oral route. 07/25/2023 aspirin 81 mg enteric coated tablet Take 1 tablet (81 mg total) by mouth daily 30 tablet 5 10/13/2023 04/04/2024 BinaxNOW COVID-19 Ag Self Test kit TEST DIRECTED TODAY 01/26/2024 04/04/2024 famotidine (PEPCID) 20 mg tablet Take 1 tablet (20 mg total) by mouth 2 (two) times a day 60 tablet 3 02/14/2024 04/18/2024 magnesium oxide (MAG-OX) 400 mg (241.3 mg elemental magnesium) tablet TAKE 1 TABLET BY MOUTH EVERY DAY 30 tablet 1 02/16/2024 04/04/2024 prochlorperazine (COMPAZINE) 10 mg tablet Take 1 tablet (10 mg total) by mouth every 6 (six) hours as needed (headache) 30 tablet 12/13/2023 04/18/2024 riboflavin, vitamin B2, 400 mg tabletIndication s:Migraine Prevention Take 400 mg by mouth daily 30 tablet 3 01/31/2024 04/18/2024 documented as of this encounter Discharge Disposition Disposition Code Departure Means Destination Discharge to home or self care documented in this encounter H&P Notes * Emily Munguia MD - 03/13/2024 1:35 PM CST Obstetrics H&P Chief Complaint: LUND Estimated Date of Delivery: 04/10/24 Provider: SONAL HPI: Mary Singh is a 24 y.o. female at 36w0d gestation, dated by L=1st Patient reportsa headache since Monday. She also reports feeling very tired and overall just unwell. She denies viral symptoms and did take a covid test that was negative. She took tylenol this morning with no improvement. She continues on mag/riboflavin. She has tried water and caffeine without improvement andrates the headache 10/15. No OB complaints. +FM Her is complicated by proteinuria, obesity, h/o pp hemorrhage and family history of ONTD OB History Para Term AB Living 2 1 1 0 0 1 SAB IAB Ectopic Multiple Live Births 0 0 0 0 1 # Outcome Date GA Lbr Zachary/2nd Weight Sex Type Anes PTL Lv 2 Current 1 Term 07/20/21 39w1d / 01:01 3150 g (6 lb 15.1 oz) F Vag-Spont EPI N MOHAMUD Complications: Post Hemorrhage Name: LICONA,GIRLTAYLOR Apgar1: 8 Apgar5: 9 Past Medical History: Diagnosis Date Closed nondisplaced fracture of medial cuneiform of right foot 06/03/2019 Elevated blood pressure affecting , antepartum 05/17/2021 - BP 143/81 on arrival at EOB, 119/80 on recheck - PreE labs wnl 05/17/21, UPC wnl - All BP subsequently normal at EOB appts Plan: [] CTM BP closely HX OTHER MEDICAL T&A in 2011; Comments: MIRANDA 05/20/2014 - HX OTHER MEDICAL elbow fracture 02-06-15.; Comments: MIRANDA 02/09/2015 - Migraine Obesity Supervision of high-risk , first trimester 10/04/2023 Chronic hypertension: No Diabetes: No Asthma: No Past Surgical History: Procedure Laterality Date CYST REMOVAL TONSILLECTOMY/ADENOIDECTOMY Bilateral Social History Tobacco Use Smoking status: Never Smokeless tobacco: Never Substance and Sexual Activity Drug use: Never Sexual activity: Yes Partners: Male control/protection: None Alcohol Use: Not At Risk (10/13/2023) AUDIT-C Frequency of Alcohol Consumption: Never Average Number of Drinks: Patient does not drink Frequency of Binge Drinking: Never Support System: Not addressed Safe at home: Yes family history includes Hypertension in her father; Other in her mother. Family history of bleeding or clotting disorders: No Family history of defects, genetic disorders, or developmental delay: No No Known Allergies HOME MEDICATIONS : aspirin 81 mg enteric coated tablet BinaxNOW COVID-19 Ag Self Test kit famotidine (PEPCID) 20 mg tablet magnesium oxide (MAG-OX) 400 mg (241.3 mg elemental magnesium) tablet vitamin ferrous fumarate-folic () 28 mg iron- 800 mcg tablet prochlorperazine (COMPAZINE) 10 mg tablet riboflavin, vitamin B2, 400 mg tablet Review of Sys: Negative except per HPI Vitals: Temp: [36.7 ??C (98.1 ??F)] 36.7 ??C (98.1 ??F) Pulse: [77-99] 88 Resp: [18] 18 BP: (96-123)/(59-74) 123/60 Physical Exam: General: NAD, mood appropriate Cardiovascular: Regular rate and rhythm Pulmonary: Clear to ausculation bilaterally Abdomen: Gravid, non-tender Extremities: Warm and well perfused Speculum Exam: deferred Cervix: / / deferred Monitoring: Baseline: 125 bpm, Variability: Moderate, Accelerations: Present and Decelerations: None Uterine Activity: Irregular contractions Interpretation: Reactive Labs: Lab Results Component Value Date ABORH O Negative 01/17/2024 SCRIBEDABORH O- 09/18/2023 IDCOOMB Negative 01/17/2024 SCRINDANTIGL negative 09/18/2023 [id number] Nonreactive 02/28/2024 [id number] Nonreactive 09/18/2023 LABRPR Nonreactive 02/28/2024 SCRRPR Non-Reactive 09/18/2023 SCRRUBELIGG Immune 09/18/2023 GC negative 09/18/2023 Assessment and Plan Mary Singh is a 24 y.o. female at 36w0d who presented with LUND R/O Pre Eclampsia: -No e/o Pre Eclampsia, BP normotensive - LUND: relieved with Benadryl, Reglan and IV bolus -No RUQ tenderness -PIH labs: unremarkable Uric acid 3.3 UPC 0.1 - Pre E precautions given. FWB: Reactive NST Patient to continue taking medications as prescribed, follow up with M Strict return precautions given. Patient had no further questions, verbalized understanding of discharge plan/instructions and was DCd home in Stable condition. Plan discussed with Dr. Nilda Chamberlain NP 03/13/24 M Fellow Attestation I have discussed Mary Singh with the above provider on 03/13/2024. I have reviewed the treatment plan and recommendations. I agree with the findings and the plan of care as documented in the notewith the following addendum: Briefly, this is a 24 y.o. at 36w0d with complicatedby Class 3 BMI, proteinuria in 1st trimester, history of headache, fam hx of spina bifida, history of PPH who presented to the [facility] with a headache. Pt has a longstanding history of headaches, this headache is similar to prior headaches and did not resolve with tylenol at home. Pt treated w/ benadryl, reglan, and fluids w/ headache resolved. Pt normotensive in clinic and in the [facility], ruled out for pre-e w/ SF. Reactive and reassuring NST. Pt to follow up in clinic in 1 week. Emily Munguia MD Maternal Medicine, Fellow Cosigned by Mook Villanueva MD at 03/13/2024 4:17 PM CERAMIC SAW TENDER MIC SAW TENDER MIC SAW TENDER MIC SAW TENDER Associated attestation - Mook Villanueva MD - 03/13/2024 4:17 PM CERAMIC SAW TENDER I have reviewed the above note for Mary Singh, and I agree with the documented plan by the resident/fellow/NIKKI. Mook Villanueva MD 03/13/2024 documented in this encounter Nursing Notes * Lucía Miner RN - 03/13/2024 2:20 PM CST Pt arrived to [facility] with c/o headache since Monday. Pt rates headache 10/15 unrelieved with tylenol at home. IV started. Ordered labs sent. Ordered medications given with relief. Pt's LUND resolved completely prior to discharge. VSS. NST reactive. IV removed. Pt discharged to home in stable condition with return precautions given. Pt verbalizes understanding and denies further questions or concerns at this time. MIC SAW TENDER documented in this encounter Plan of Treatment Not on file documented as of this encounter Procedures Procedure Name Priority Date/Time Associated Diagnosis Comments ANTIBODY IDENTIFICATION STAT 03/13/20 2:58 PM CERAMIC SAW TENDER EGFR STAT 03/13/2024 12:13 PM CERAMIC SAW TENDER PROTEIN / CREATININE RATIO, URINE, RANDOM STAT 03/13/2024 12:13 PM CERAMIC SAW TENDER CBC WITHOUT DIFFERENTIAL STAT 03/13/2024 12:13 PM CERAMIC SAW TENDER TYPE AND SCREEN STAT 03/13/2024 12:13 PM CERAMIC SAW TENDER URIC ACID STAT 03/13/2024 12:13 PM CERAMIC SAW TENDER COMPREHENSIVE METABOLIC PANEL STAT 03/13/2024 12:13 PM CERAMIC SAW TENDER POCT URINALYSIS (CLINITEK) Routine 03/13/2024 11:56 AM CERAMIC SAW TENDER documented in this encounter Results * Antibody identification (03/13/2024 2:58 PM CERAMIC SAW TENDER) Antibody ID 1 Passive Anti-D Blood 03/13/2024 2:58 PM CERAMIC SAW TENDER 03/13/2024 2:58 PM CERAMIC SAW TENDER Jennifer Chamberlain ROUTE DELIVERY SERVICE DRIVER LAB BLOOD BANK TEST GARRISON SCHRADER Final Result [facility] Department [place] [address] * eGFR (03/13/2024 12:13 PM CERAMIC SAW TENDER) Pathologist [facility] eGFR >90 >=60 mL/min/1. 73 m2 Comment: Interpretive Data Reference Interval Normal ?>/= 90 mL/min/1.73m2 Mildly decreased* ? 60 - 89 mL/min/1.73m2 Mildly to moderately decreased ?45 - 59 mL/min/1.73m2 Moderately to severely decreased ??30 - 44 mL/min/1.73m2 Severely decreased ?15 - 29 mL/min/1.73m2 Kidney Failure ?< 15 ??mL/min/1.73m2 *Relative to young adult level Estimated glomerular filtration rate is determined by the 2020 CKD-EPI equation recommended by the National Kidney Foundation (A Unifying Approach to GFR Estimation: Recommendations of the NKF-ASK Task Force on Reassessing the Inclusion of Race in Diagnosing Kidney Disease, JASN 2020). The CKD-EPI equation should not be used for patients with unstable renal function and has not been validated in children and those over 70. Current interpretive data was last reviewed 2021. Blood 03/13/2024 12:1 3 PM CERAMIC SAW TENDER 03/13/2024 12:50 PM CERAMIC SAW TENDER Jennifer Chamberlain ROUTE DELIVERY SERVICE DRIVER LAB BLOOD ORDERABLES Fin al Result Performing Organization Address [facility] Co de Phone Number [facility] Department [place] [address] * (ABNORMAL) CBC without differential (03/13/2024 12:13 PM CERAMIC SAW TENDER) WBC 7.5 3.8 - 9.9 K/cumm Hgb 11.8(L) 11.9 - 15.5 g/dL [facility] Hct 35.2(L) 35.6 - 45.5 % [facility] Plt 255 150 - 400 K/cumm [facility] MPV 9.9 9.1 - 12.3 fL [facility] RBC 3.93 3.90 - 5.20 M/cumm [facility] MCV 89.6 81.3 - 96.4 fL [facility] MCH 30.0 27.1 - 33.3 pg [facility] MCHC 33.5 32.3 - 35.7 g/dL [facility] RDW CV 13.2 11.1 - 14.9 % [facility] RDW SD 43.9 35.7 - 48.1 fL [facility] NRBC abs 0.00 0.00 - 0.01 K/cumm [facility] Blood 03/13/2024 12:1 3 PM CERAMIC SAW TENDER 03/13/2024 12:50 PM CERAMIC SAW TENDER Jennifer Chamberlain ROUTE DELIVERY SERVICE DRIVER LAB BLOOD ORDERABLES Fin al Result [facility] Department [place] [address] * (ABNORMAL) Comprehensive metabolic panel (03/13/2024 12:13 PM CERAMIC SAW TENDER) Sodium 138 135 - 145 mmol/L Potassium, pl 4.1 3.3 - 4.9 mmol/L [facility] Chloride 103 97 - 110 mmol/L [facility] CO2 25 22 - 32 mmol/L [facility] Anion gap 10 2 - 15 mmol/L [facility] BUN 6 6 - 25 mg/dL [facility] Creatinine 0.46(L) 0.60 - 1.10 mg/dL [facility] Glucose 76 70 - 199 mg/dL [facility] Comment: Interpretive Data Fasting glucose >/= 126 mg/dl is diagnostic for diabetes. ?? Fasting is defined as no caloric intake for at least 8 hours. Fasting glucose between 100 mg/dl to 125 mg/dl is diagnostic of prediabetes. In a patient with classic symptoms of hyperglycemia or hyperglycemic crisis, a random glucose >/= 200 mg/dl is diagnostic for diabetes. In the absence of unequivocal hyperglycemia, results should be confirmed by repeat testing. The classification and Diagnosis of Diabetes Diabetes Care 2021; 46: S19-S40. Current interpretive data was last revised 2022. Calcium 9.5 8.5 - 10.3 mg/dL [facility] Bilirubin, total 0.3 0.1 - 1.2 mg/dL [facility] Protein, pl 6.9 6.5 - 8.5 g/dL [facility] Albumin 3.7 3.5 - 5.0 g/dL [facility] Alk phos 106 40 - 130 Units/L [facility] ALT 24 7 - 45 Units/L [facility] AST 19 10 - 45 Units/L [facility] Blood 03/13/2024 12:1 3 PM CERAMIC SAW TENDER 03/13/2024 12:50 PM CERAMIC SAW TENDER us Jennifer Chamberlain NP LAB BLOOD ORDERABLES Fin al Result [facility] Department [place] [address] * (ABNORMAL) Type and screen (03/13/2024 12:13 PM CERAMIC SAW TENDER) Jorge, indirect Positive(A) ABO Rh O Negative [facility] Blood 03/13/2024 12:1 3 PM CERAMIC SAW TENDER 03/13/2024 1:10 PM CERAMIC SAW TENDER Narrative [facility] - 03/13/2024 2:58 PM CERAMIC SAW TENDER Has the patient had Daratumumab or Isatuximab in the past 6 months?->Unknown Jennifer Chamberlain ROUTE DELIVERY SERVICE DRIVER LAB BLOOD BANK TEST GARRISON SCHRADER Final Result Performing Organization Address [facility] de Phone Number [facility] [place] [address] * Uric acid (03/13/2024 12:13 PM CERAMIC SAW TENDER) Uric acid 3.3 2.5 - 7.0 mg/dL Blood 03/13/2024 12:1 3 PM CERAMIC SAW TENDER 03/13/2024 12:50 PM CERAMIC SAW TENDER Jennifer Chamberlain ROUTE DELIVERY SERVICE DRIVER LAB BLOOD ORDERABLES Fin al Result Performing Organization Address [facility] de Phone Number [facility] [place] [address] * Protein / creatinine ratio, urine, random (03/13/2024 12:13 PM CERAMIC SAW TENDER) Protein, ur, quant 6.6 mg/dL Comment: Interpretive Data No reference range established. Current interpretive data was last revised 2018. Creatinine Ur 46.1 mg/dL [facility] Comment: Interpretive Data No reference range established. Current interpretive data was last revised 2018. Protein/creatinin e ratio 143.2 0.0 - 180.0 mg/g CR [facility] Urine 03/13/2024 12:1 3 PM CERAMIC SAW TENDER 03/13/2024 12:50 PM CERAMIC SAW TENDER Jennifer Chamberlain ROUTE DELIVERY SERVICE DRIVER LAB URINE ORDERABLES Fin al Result Performing Organization Address [facility] de Phone Number [facility] [place] [address] * POCT urinalysis (Clinitek) (03/13/2024 11:56 AM CERAMIC SAW TENDER) Color, ur, POC Yellow Yellow Clarity, UA, POC Clear Clear [facility] Glucose, ur, POC Negative Negative [facility] Bilirubin, ur, POC Negative Negative [facility] Ketones, ur, POC Negative Negative [facility] Specific gravity, ur, POC 1.020 1.010 - 1.025 [facility] Blood, ur, POC Negative Negative [facility] pH, ur, POC 7.0 [facility] Comment: Interpretive Data Urine pH is affected by diet, medications, systemic acid-base disturbances, and renal tubular function. pH may affect urinary stone formation. For example, urine pH below 6.0 may help reduce the tendency for calcium phosphate stones and pH greater than 6.0 may reduce the tendency for uric acid stone formation. Source: [facility] [employer]. Last Revised Date: 05-18-2017 Protein, ur, POC Negative Negative [facility] Urobilinogen, ur, POC 0.2 mg/dL mg/dL [facility] Nitrites, ur, POC Negative Negative [facility] Leukocyte esterase, ur, POC Negative Negative [facility] Urine 03/13/2024 11:5 6 AM CERAMIC SAW TENDER 03/13/2024 11:56 AM CERAMIC SAW TENDER Mook Villanueva MD LAB POCT ORDERABL ES - DEVICE Final Result [facility] Department [place] [address] documented in this encounter Visit Diagnoses Not on filedocumented in this encounter Administered Medications Inactive Administered Medications - up to 3 most recent administrations Medication Order MAR Action Action Date Dose Rate Site Carrier Fluids for Secondary Infusion - 0.9% Sodium Chloride 30 mL, intravenous, As needed, For priming tubing and/or flushing, Starting on Mon03/13/24 at 1142, 0-250 ml/hr to flush line after IV infusions when no maintenance IV ordered. Infuse 30mL at the same rate as the secondary infusion. Run as primary IV, not intended for KVO. diphenhydrAMINE (BENADRYL) 50 mg/mL injection 25 mg 25 mg, intravenous, Administer over 2 Minutes, Once, On Mon03/13/24 at 1215, For 1 dose Given 03/13/2024 12:14 PM CERAMIC SAW TENDER 25 mg Lactated Ringer's (LR) bolus 1,000 mL 1,000 mL, intravenous, Once, On Mon03/13/24 at 1215, For 1 dose New Bag 03/13/2024 12:22 PM CERAMIC SAW TENDER 1,000 mL metoclopramide (REGLAN) 5 mg/mL injection 10 mg 10 mg, intravenous, Administer over 1 Minutes, Once, On Mon03/13/24 at 1215, For 1 dose Given 03/13/2024 12:17 PM CERAMIC SAW TENDER 10 mg sodium chloride 0.9% flush 0.5-20 mL 0.5-20 mL, intra-catheter, Every 8 hours scheduled (alternate), First dose on Mon03/13/24 at 1600, Flush volume based on line type and size. sodium chloride 0.9% flush 0.5-20 mL 0.5-20 mL, intra-catheter, As needed, line care, Starting on Mon03/13/24 at 1142, Flush volume based on line type and size. Flush before and after each use. documented in this encounter Active and Recently Administered Medications Times are shown in CERAMIC SAW TENDER. Scheduled Medication Order 03/11/2024 03/12/2024 03/13/2024 diphenhydrAMINE (BENADRYL) 50 mg/mL injection 25 mg (COMPLETED) 25 mg, intravenous, Administer over 2 Minutes, Once, On Mon03/13/24 at 1215, For 1 dose 1214 (Given - Provid er: Lucía Miner RN) Lactated Ringer's (LR) bolus 1,000 mL (COMPLETED) 1,000 mL, intravenous, Once, On Mon03/13/24 at 1215, For 1 dose 1222 (New Bag - Prov ider: Lucía Miner RN)1322 (Stopped - Provider: Lucía Miner RN) metoclopramide (REGLAN) 5 mg/mL injection 10 mg (COMPLETED) 10 mg, intravenous, Administer over 1 Minutes, Once, On Mon03/13/24 at 1215, For 1 dose 1217 (Given - Provid er: Lucía Miner RN) sodium chloride 0.9% flush 0.5-20 mL 0.5-20 mL, intra-catheter, Every 8 hours scheduled (alternate), First dose on Mon03/13/24 at 1600, Flush volume based on line type and size. PRN Medication Order 03/11/2024 03/12/2024 03/13/2024 Carrier Fluids for Secondary Infusion - 0.9% Sodium Chloride 30 mL, intravenous, As needed, For priming tubing and/or flushing, Starting on Mon03/13/24 at 1142, 0-250 ml/hr to flush line after IV infusions when no maintenance IV ordered. Infuse 30mL at the same rate as the secondary infusion. Run as primary IV, not intended for KVO. sodium chloride 0.9% flush 0.5-20 mL 0.5-20 mL, intra-catheter, As needed, line care, Starting on Mon03/13/24 at 1142, Flush volume based on line type and size. Flush before and after each use. documented in this encounter Orders Medications Ordered That Quincy ht Not Have Been Administered Count Last Ordered Date First Ordered Date Carrier Fluids for Secondary Infusion - 0.9% Sodium Chloride 1 03/13/2024 sodium chloride 0.9% flush 0.5-20 mL 2 10/2023 Discharge Count Last Ordered Date First Orde red Date DISCHARGE PATIENT 1 03/13/2024 documented in this encounter Care Teams Ramp Service Employee Relationship Specialty Start Date End Date No, Physician PCP - General 12/03/23 Jarred Roy MD 2 [facility] [address] 01/30/19 Elma Echevarria NP 2 [facility] [address] [address] Nurse Practitioner General Surgery 12/16/19 documented as of this encounter
--- OUTSIDE RECORDS SUMMARY | 2024-05-10 20:15 | XMS_ITS | Encounter Summary ---
Author Organization [facility] Healthcare Address [address] [place] [address] Care Team Providers Care Metal Box Maker Name Role Phone Jarred Roy MD Unavailable [phone] EyersElma NP Unavailable No, Physician Primary Care Provider [phone] Reason for Visit * Reason Onset Date Comments Scheduled Induction 04/01/2024 Encounter Details Date Type Department Care Team (Late st Contact Info) Description 04/01/2024 Telephone [facility] [address] [place] [address] Cassi French RN Scheduled Induction Social History Tobacco Use Types Packs/Day Years [...] often do you attend chur ch or jehovah's witness services? Never 07/21/2021 Do you belong to any clubs o r organizations such as amish groups, unions, fraternal or athletic groups, or [...] place to sleep or slept in a half-way (including now)? No 07/21/2021 [place] Depression Scale Answer Date Recorded [place] Depression Scale Total 6 09/03/2021 The thought of harming myself has occurred to me . Never 09/03/2021 Personal Safety Answer Date Recorded Have you ever been in or are you currently in a harmful physical or emotional relationship or is someone making you feel afraid or unsafe? Denies 03/23/2024 Comments Yes Sex and Gender Information Value Date Recorded Sex Assigned at Not on file Legal Sex Female 11:28 PM CORRECTIVE THERAPY AIDE Gender Identity Not on file Sexual Orientation Not on file documented as of this encounter Miscellaneous Notes * Telephone Encounter - EdgarCassi rojas, RN - 04/01/2024 3:41 PM CST Contacted patient for pre IOL education. Patient scheduled for an Induction of Labor on 04/02 @ 11 pm. COVID screening: Patient denies S&S, exposure to anyone sick or known covid +. States wears mask, practices social distancing, and handwashing. Has self quarantined as much as possible. Please call us if you have been around anyone sick or who has been COVID positive in the last 14 days. [facility] isno longer requiring universal masking in their facilities. If you are having any respiratory symptoms, please wear a mask. If you'd prefer staff to wear a mask in your presence, please let your care team know upon arrival. Day before Induction: L&D is located in the [facility]. Our address is [address] [place] [address]. You may eat and drink regularly. Arrange for child protection specialist if needed. Day of IOL: You may have light dinner the evening of your induction before arrival. Take any medicine with a sip of water only if your provider has told you to take it. Turn off of [facility] into Entrance D ([facility]). Parking is located under the [facility]. Please use the Women's & Infants elevator located in the [facility]. Come directly to L&D on the 5th floor. Your support person can join you at the scheduled time of your induction. If you have an Advance Directive or a Labor Plan, please bring it with you. Please leave your valuables at home. If you wear contact lens, please bring your case and glasses with you. We recommend you bring everything including the car seat in when you arrive. Please be thinking about who you want to use for your baby's history department chair. We will need this information prior to discharge. Additional information for you and your visitor: Women & unit on the 5th floor (Labor, WAC, APU) are open 24 hours/day, seven days a week. Those units on the 6th floor () visiting hours are 9am-9pm. The patient???s primary support person is encouraged to stay overnight in the patient???s room to provide support and care for mom and . To promote rest and quality care, visiting hours may be limited after delivery. Medical condition of the patient (mom or baby) may require more limited visitation. Children under 12 years of age must be accompanied by an adult at all times and will count in the number at the bedside. Labor and delivery visitors at bedside are limited to three at a time. Visitors may swap in and out, not to exceed the maximum number allowed. We are sorry we do not provide meals for visitors. They can go to our cafeteria or coffee shop, order out and have something delivered to our lobby, leave the hospital to eat or rock picker food from a restaurant, or a family member may bring them something to eat and they can pick it up in the lobby. Coffee shop and cafeteria are available for visitor snacks and meals. In the evening, the coffee shop and cafeteria will be closed. There is a snack machine and soda machine. Your visitor can bring something to eat and drink during the night if they prefer. Post unit is on the 6th floor. Patient will receive only one parking validation during your stay at [facility]. It will be given to you on the day you go home. Multi-use parking passes may be purchased for $20.00 in the cafeteria or gift shop daily from 7 am to 7 pm at discounted zaldivar if your visitor is planning on leaving each night and returning in the morning. We have a mobile pharmacy on site for you to rock picker any new medications your doctor has prescribed for you, at discharge. If this is something you???d like to do, please bring some form of payment with you for this purpose. Patient verbalizes understanding all instructions. No further questions or needs. [facility] phonenumber [phone] provided for patient for any questions or S&S of illness prior to arrival. ECTIVE THERAPY AIDE documented in this encounter Plan of Treatment Not on file documented as of this encounter Visit Diagnoses Not on filedocumented in this encounter Care Teams Metal Box Maker Relationship Specialty Start Date End Date No, Physician PCP - General 12/03/23 Jarred Roy MD [address] [address] 01/30/19 Elma Echevarria NP [address] [address] Nurse Practitioner General Surgery 12/16/19 documented as of this encounter
--- OUTSIDE RECORDS SUMMARY | 2024-05-10 20:15 | XMS_ITS | Encounter Summary ---
Author Organization [facility] Address [address] [place] [address] Phone Care Team Providers Care Windows Security Analyst Name Role Phone Jarred Roy MD Unavailable [phone] Elma Echevarria NP Unavailable No, Physician Primary Care Provider [phone] Reason for Visit * Reason Comments High Risk Gestation Encounter Details Date Type Department Care Team (Late st Contact Info) Description 02/28/2024 10:45 AM CDT Office Visit [facility] Maternal- Medicine [facility] 7th Floor [address] [place] [address] Elevated blood pressure reading without diagnosis of hypertension (Primary Dx); Family history of spina bifida; History of hemorrhage, currently in first trimester; Obesity affecting in first trimester, unspecified obesity type; headache in second trimester; Proteinuria complicating in first trimester; Supervision of high-risk , first trimester Social History Tobacco Use Types Packs/Day Years [...] often do you attend chur ch or quaker services? Never 07/21/2021 Do you belong to any clubs o r organizations such as zoroastrianism groups, unions, fraternal or athletic groups, or [...] place to sleep or slept in a care home (including now)? 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 Gender Identity Not on file Sexual Orientation Not on file documented as of this encounter Last Filed Vital Signs Vital Sign Reading Time Taken Comments Blood Pressure 111/77 02/28/2024 10:40 AM CDT Pulse 84 02/28/2024 10:40 AM CDT Temperature - - Respiratory Rate - - Oxygen Saturation 98% 02/28/2024 10: 40 AM CDT Inhaled Oxygen Concentration - - Weight 146.6 kg (323 lb 3.2 oz) 024 10:40 AM CDT Height - - Body Mass Index 53.78 01/31/2024 9:34 AM CDT documented in this encounter Progress Notes * Janeth Zacarias, BASS VIOL REPAIRER - 02/28/2024 10:45 AM CDT [facility] Return Visit 02/28/2024 Mary Singh is a 24 y.o. at 34w0d who is here for a return OB visit. Her is complicated by proteinuria, obesity, h/o pp hemorrhage and family history of ONTD. Subjective: She denies regular contractions, VB or LOF and reports good movement. She has occasional sharp pains that resolve. Objective: BP 111/77 Pulse 84 Wt (!) 323 lb 3.2 oz (146.6 kg) LMP 07/05/2023 (Exact Date) SpO2 98% BMI 53.78 kg/m?? General: NAD Abdomen: Soft, gravid, NT, FHR + Ultrasound: AGA- see finalized US report Assessment/Plan: Mary Singh is a 24 y.o. at 34w0d with a complicated by the following: Problem List CICI 04/10/24 Elevated blood pressure reading without diagnosis of hypertension - Primary Overview Reports checking a blood pressure once in the last week that was 140/90. The cuff has not been validated and she did not repeat the reading. Discussed importance of accurate BP monitoring. Instructions reviewed for how to check a blood pressure. Attempted to validate a cuff in the office but unableto. Plan for regular visits to monitor Bps. Pt knows to call with symptoms of preE or present to PVT anytime for evaluation. No current diagnosis. Plan for close monitoring. Family history of spina bifida Overview Ms. Singh's sister was determined to have a genetic etiology, and she is s/p counseling in her last . S/p normal anatomy History of hemorrhage, currently in first trimester Overview A history of hemorrhage increases the risk for subsequent hemorrhage, and places patients in the high risk category. The risk of PPH increases to 18% (baseline 1-3% risk) in afirst after initial PPH and 27% with 2 consecutive pregnancies with PPH. We recommend aggressive treatment of antepartum anemia, and consideration of 2 large bore PIVs and crossing for blood at time of delivery. Obesity complicating in first trimester Overview Pre- BMI: 50 Previously counseled Plan: [x] Initiate aspirin 81 mg at 12 weeks for preeclampsia risk reduction - ordered today [x] Early gestational diabetes screening with Hgb A1C - completed [x] Specialized anatomic survey at 20 weeks - complete and wnl [x] Consider growth ultrasounds every 4 weeks at 28 weeks [x] 3rd trimester anesthesia consultation if BMI >/=50 [x] Weekly testing at 34 weeks (BMI >/=40) headache in second trimester Overview Pt with a long history of headaches. Previously on Topamax 50 mg at bedtime. Current regimen: 12/13/2023 Magnesium, will add riboflavin Compazine PRN Plan: PreE precautions reviewed Good hydration and regular meals Caffeine prn Proteinuria complicating in first trimester Overview Previously counseled 24 hour urine collected in the setting of a UTI. UPC urine protein <5, ratio too low to calculate. As such, we will defer further testing at this time. Plan: [x] UA/UCx, UPC- ordered, normal [x] Start ASA 81 mg for preeclampsia prevention Supervision of high-risk , first trimester Overview [x] Full M Care as of 12/13/2023 [x] [employer] email sent 12/12 Referring Provider: Janett Robles [phone] [] or Medicare Insurance [x] Dating Criteria: [place] 08/28/23 with CICI 04/10/24 [x] Labs: Rh [O-], Ab [negative3], Rubella [immune], HIV [non- reactive], HepBSAg [non-reactive], RPR [non-reactive], Hep C [non-reactive], Varicella [negative], GC/CT [negative/negative] [x] Aneuploidy: NIPT negative [] Carrier Screening: [x] CBC/Hgb: 12.5/38.7/plt 251 [x] UCx: 09/18/23: 10,000-25,000 CFU/mL GBS [x] Pap: 07/25/23: NILM [x] Flu Shot (Jan-Apr): 01/31/2024 LE [] COVID [] LD ASA (if indicated) [] EPDS [ ]; PNBHS referral (if indicated) 2nd Tri Labs: [x] Anatomy ultrasound: complete and wnl [x] CBC/1hr gtt at 24-28wks: 11.8/35.4/241k gtt: 95 [x] Tdap (27-36wks):01/17/2024 [x] Rhogam at 28 wks: 01/17/2024 3rd Tri Labs: [] CBC/HIV/RPR: ordered for today [] GBS: discussed [x] testing: weekly at 34 weeks 2/2 obesity [] RSV: rx placed 02/14/2024 Counseling [x] MOD: IOL; scheduled for 04/02 at 11pm, letter sent to patient [x] Place of delivery: PVT [] Last clinic visit SVE: [] IOL start agent: [x] Epidural: desires [x] Blood Products: willing to accept [] Consents signed: upon admission [] Stop ASA [x] MOC: Pt strongly desires salpingectomy (hopefully at time of delivery but understands she may not be a candidate following a vaginal delivery) 24 yo at time of delivery and understands risks of regret. S/p LARC counseling. Papers signed 01/03/2024 [x] Method of feeding: Likely plans for formula feed, was very stressful last and she felt it affected her mental health not being able to produce, pt knows we will support whatever decision she makes. She is considering exclusively pumping. [x] Gas Plumber: [] PP Depression Discussed: Relevant Orders CBC without differential (Completed) HIV 1/2 Antibody plus p24 Antigen Blood (Completed) RPR Blood PTL/PEC/FKC precautions reviewed. Reviewed the importance of presenting to her closest hospital in the case of an emergency for evaluation and if necessary and safe will be transferred to [facility] documented in this encounter Plan of Treatment Not on file documented as of this encounter Results * RPR Blood (02/28/2024 11:14 AM CDT) RPR Nonreactive Nonreactive Blood 02/28/2024 11:1 4 AM CDT 02/28/2024 11:47 AM CDT us Janeth Zacarias NP LAB MICROBIOLOGY - GENERAL ORDERABLES Final Result Performing Organization Address City/[facility] Co de Phone Number [facility] [place] [address] * HIV 1/2 Antibody plus p24 Antigen Blood (02/28/2024 11:14 AM CDT) HIV 1/2 ab + p24 ag Nonreactive Nonreactive Comment:Nonreactive for HIV- 1 antigen and HIV-1/HIV-2 antibodies. No laboratory evidence of HIV infection. If acute HIV infection is suspected, consider testing for HIV-1 RNA. Current interpretive data was last revised on 22. Blood 02/28/2024 11:1 4 AM CDT 02/28/2024 11:47 AM CDT us Janeth Zacarias NP LAB MICROBIOLOGY - GENERAL ORDERABLES Final Result Performing Organization Address City/[facility]/ZIP Co de Phone Number [facility] Department [place] [address] * CBC without differential (02/28/2024 11:14 AM CDT) WBC 8.4 3.8 - 9.9 K/cumm Hgb 12.1 11.9 - 15.5 g/dL [facility] Hct 35.8 35.6 - 45.5 % [facility] Plt 237 150 - 400 K/cumm [facility] MPV 9.9 9.1 - 12.3 fL [facility] RBC 3.91 3.90 - 5.20 M/cumm [facility] MCV 91.6 81.3 - 96.4 fL [facility] MCH 30.9 27.1 - 33.3 pg [facility] MCHC 33.8 32.3 - 35.7 g/dL [facility] RDW CV 13.4 11.1 - 14.9 % [facility] RDW SD 44.9 35.7 - 48.1 fL [facility] NRBC abs 0.00 0.00 - 0.01 K/cumm [facility] Blood 02/28/2024 11:1 4 AM CDT 02/28/2024 11:47 AM CDT us Janeth Zacarias BASS VIOL REPAIRER LAB BLOOD ORDERABLE S Final Result [facility] Department [place] [address] documented in this encounter Visit Diagnoses Diagnosis Elevated blood pressure reading without diagnosis of hypertension- Primary Family history of spina bifida Family history of congenital anomalies History of hemorrhage, currently in first trimester Obesity affecting in first trimester, unspecified obesity type headache in second trimester Proteinuria complicating in first trimester Supervision of high-risk , first trimester documented in this encounter Care Teams Windows Security Analyst Relationship Specialty Start Date End Date No, Physician PCP - General 12/03/23 Jarred Roy MD [address] [place] [address] 01/30/19 EyeElma charles NP 2 [facility] [address] [address] Nurse Practitioner General Surgery 12/16/19 documented as of this encounter
--- OUTSIDE RECORDS SUMMARY | 2024-05-10 20:15 | XMS_ITS | Encounter Summary ---
Author Organization [facility] Healthcare Address [address] [place] [address] Care Team Providers Care Senior Java Web Application Developer Name Role Phone Jarred Roy MD Unavailable [phone] Elma Echevarria NP Unavailable No, Physician Primary Care Provider [phone] Reason for Referral * Diagnostic Imaging (Routine) - Closed Specialty Diagnoses / Procedures Referred By Contac t Referred To Contact Diagnoses Other obesity affecting in third trimester Procedures US Ob Follow Up Janeth Zacarias NP [address] [facility] [phone] [place] [address] Phone: tel: fax: [facility] (All Locations) Referral ID Status Reason Start Date Expiration Date Visits Re quested Visits Authorized [id number] Closed 02/28/2024 03/29/2025 1 1 * Diagnostic Imaging (Routine) - Closed Specialty Diagnoses / Procedures Referred By Contac t Referred To Contact Diagnoses Other obesity affecting in third trimester Procedures US Ob Follow Up Janeth Zacarias NP [address] [facility] [id number] [place] [address] Phone: tel: fax: [facility] (All Locations) Referral ID Status Reason Start Date Expiration Date Visits Re quested Visits Authorized [id number] Closed 02/28/2024 03/29/2025 1 1 Reason for Visit * Diagnostic Imaging (Routine) - Closed Specialty Diagnoses / Procedures Referred By Loyd t Referred To Contact Diagnoses Obesity affecting in first trimester, unspecified obesity type Procedures US Ob Follow Up Janeth Zacarias NP [address] [facility] [id number] [place] [address] Phone: tel: fax: [facility] (All Locations) Referral ID Status Reason Start Date Expiration Date Visits Re quested Visits Authorized [id number] Closed 01/03/2024 02/01/2025 1 1 Encounter Details Date Type Department Care Team (Latest Contact Info) Description 02/28/2024 9:59 AM CDT - 02/28/2024 11:59 PM CDT Hospital Encounter [facility] Ul[facility]ound [address] [facility] 7th Floor, [address] [place] [address] Other obesity affecting in third trimester (Primary Dx) Discharge Disposition: Discharge to home or self [...] often do you attend chur ch or rastafarian services? Never 07/21/2021 Do you belong to any clubs o r organizations such as mu-ism groups, unions, fraternal or athletic groups, or [...] place to sleep or slept in a long term (including now)? No 07/21/2021 [place] Depression Scale Answer Date Recorded [place] Depression Scale Total 6 09/03/2021 The thought [...] on file Legal Sex Female 11:28 PM SPRAGGER Gender Identity Not on file Sexual Orientation Not on file documented as of this encounter Medications at Time of Discharge [...] or self care documented in this encounter Plan of Treatment Not on file documented as of this encounter Procedures Procedure Name Priority Date/Time Associated Diagnosis Comments US OB FOLLOW UP Schedule Routine, Read Routine (OP Routine) 02/28/2024 10:02 AM CDT Other obesity affecting in third trimester US OB FOLLOW UP Schedule Routine, Read Routine (OP Routine) 01/31/2024 9:02 AM CDT Obesity affecting in first trimester, unspecified obesity type documented in this encounter Results * US Ob Follow Up (02/28/2024 10:02 AM CDT) Fetus# Fetus1 VIEWPOINT Estimated Weight 2,491 g&grams VIEWPOINT Placenta Details posterior, Previa-no, no placental masses VIEWPOINT Presentation Vertex VIEWPOINT Anatomical Region Laterality Modality Abdomen N/A Ultrasound 02/28/2024 10:0 2 AM CDT Impressions 02/28/2024 10:32 AM CDT Normal biometry 2491 g at 64%and amniotic fluid 17 cm. ??The biophysical profile is 8/8 with normal breathing motion, body motion, tone and amniotic fluid volume. Narrative Procedure Note Delma Edwards MD - 02/28/2024 IMPRESSION: Normal biometry 2491 g at 64%and amniotic fluid 17 cm. The biophysicalprofile is 8/8 with normal breathing motion, body motion, tone andamniotic fluid volume. us Janeth Zacarias HAZARDOUS MATERIALS DRIVER IMG OB US PROCEDURE S Final Result documented in this encounter Visit Diagnoses Diagnosis Other obesity affecting in third trimester- Primary documented in this encounter Care Teams Senior Java Web Application Developer Relationship Specialty Start Date End Date No, Physician PCP - General 12/03/23 Jarred Roy MD 2 [facility] [address] [address] 01/30/19 Elma Echevarria NP [address] [facility] [address] [address] Nurse Practitioner General Surgery 12/16/19 documented as of this encounter
--- OUTSIDE RECORDS SUMMARY | 2024-05-10 20:15 | XMS_ITS | Encounter Summary ---
Author Organization [facility] Healthcare Address [address] [place] [address] Care Team Providers Care Painter And Body Mechanic Apprentice Name Role Phone Jarred Roy MD Unavailable [phone] Elma Echevarria NP Unavailable No, Physician Primary Care Provider [phone] Reason for Visit * Auth/Cert (Routine) Specialty Diagnoses / Procedures Referred By Contac t Referred To Contact Diagnoses Encounter for induction of labor Procedures n/a Referral ID Status Reason Start Date Expiration Date Visits Re quested Visits Authorized [id number] 1 1 Encounter Details Date Type Department Care Team (Late st Contact Info) Description 04/03/2024 4:20 AM BREAD JOCKEY Anesthesia Event [address] [address] Jese Espinoza MD [address] [place] [address] Kash Garcia MD [address] [place] [address] Anesthesia Record Procedure Summary Procedure Name Responsible Anesthesiologist Anesthesia Start Time Anesthesia Stop Time Labor Analgesia Jese Espinoza MD 04/03/24 0420 04/03 1116 Events Date Time Event Comment 04/03/2024 0420 0420 An Start 0424 Time out - Regional 0425 Face Time 0430 An Block Induction The patie nt was reevaluated immediately before moderate or deep sedation and before anesthesia induction. 0450 Epidural Placed 1116 An Stop Placenta Delive ry Date & Time: 04/03/2024 11:16 AM Meds Name Total epinePHRINE 1:200,000- lidocaine 2 % 5 m L fentaNYL-BUPivacaine preserv ative free in 0.9% sodium chloride 2 mcg/mL- 0.1 % cassette (premix) 59.87 mL * Agents No agents on file. * Blood No blood administrations on file. Lines, Drains, and Airways Type Details Placement Removal Peripheral IV Placement Date: 04/02/24; Placement Time: 232; Catheter Size: 20 G; Orientation: Posterior, Right; Location: Forearm; Inserted by: Darrion FELIZ; Insertion Attempts: 1; Removal Date: 04/04/24; Removal Time: 0745; Removal Reason: Discharge 04/02/24 232 by Becca Maier RN 04/04/24 0745 by Iris Witt RN Epidural Placement Date: 04/03/24; Placement Time: 0516 (created via procedure documentation); 04/03/24; 1255 04/03/24 0516 by Kash Garcia MD 04/03/24 1255 by Leelee Goodman RN Urethral Catheter Placement Date: 04/03/24; Placement Time: 0600; Inserted by: Alexis Brock; Type: Non-latex; Balloon Size: 10 mL; Urine Returned: Yes; Removal Date: 04/03/24; Removal Time: 1059; Removal Reason: Per protocol 04/03/24 0600 by Estrella Brock RN 04/03/24 1059 by Leelee Goodman RN Intrauterine Pressure Catheter Placement Date: 04/03/24; Placement Time: 0856; Inserted by: Nilda LANZA; Removal Date: 04/03/24; Removal Time: 1107; Removal Reason: Per protocol 04/03/24 0856 by Leelee Goodman RN 04/03/24 1107 by Leelee Goodman RN documented in this encounter Social History Tobacco Use Types Packs/Day Years Used Date Smoking Tobacco: Never Smokeless Tobacco: Never Alcohol Use Standard Drinks/Week Comments No 0 (1 standard drink = 0.6 oz pur e alcohol) [facility] Utilities Answer Date Recorded In the past 12 months has th e electric, gas, oil, or water company threatened to shut off services in your home? No 04/04/2024 Social Connection and Isolat ion Panel [NHANES] Answer Date Recorded In a typical week, how many times do you talk on the phone with family, friends, or neighbors? More than three times a week 04/04/2024 How often do you get togethe r with friends or relatives? More than three times a week 04/04/2024 How often do you attend chur ch or synagogue services? Never 04/04/2024 Do you belong to any clubs o r organizations such as religious groups, unions, fraternal or athletic groups, or school groups? No 04/04/2024 How often do you attend meet ings of the clubs or organizations you belong to? Never 04/04/2024 Are you , , di vorced, , never , or living with a partner? Never 04/04/2024 AUDIT-C Answer Date Recorded Q1: How often [...] care, and heating? Not hard at all 04/04/2024 Hunger Vital Sign Answer Date Recorded Within the past 12 months, y ou worried that your food would run out before you got the money to buy more. Never true 04/04/20 24 Within the past 12 months, t he food you bought just didn't last and you didn't have money to get more. Never true 04/04/2024 PRAPARE - Transportation Answer Date Re corded In the past 12 months, has l ack of transportation kept you from medical appointments or from getting medications? No 03/09 In the past 12 months, has l ack of transportation kept you from meetings, work, or from getting things needed for daily living? No 04/04/2024 Housing Stability Vital Sign Answer Abraham e [...] place to sleep or slept in a residential (including now)? No 07/21/2021 Hackberry Depression Scale Answer Date Recorded Hackberry Depression Scale Total 6 09/03/2021 The thought of harming myself has occurred to me . Never 09/03/2021 Housing Stability Vital Sign Answer Abraham e Recorded In the last 12 months, was t here a time when you were not able to pay the mortgage or rent on time? No 04/04/2024 In the past 12 months, how m any times have you moved where you were living? 1 04/04/2024 At any time in the past 12 m [facility], were you homeless or living in a residential (including now)? No 04/04/2024 Personal Safety Answer Date Recorded Have you ever been in or are you currently in a harmful physical or emotional relationship or is someone making you feel afraid or unsafe? Denies 04/03/2024 Comments No Sex and Gender Information Value Date Recorded Sex Assigned at Not on file Legal Sex Female 11:28 PM BREAD JOCKEY Gender Identity Not on file Sexual Orientation Not on file documented as of this encounter OR Notes * Anesthesia Postprocedure Evaluation - Jayden Stover MD - 04/09/2024 10:03 AM CST Patient: Mary Singh Procedure Summary Date: 04/03/24 Room / Location: Anesthesia Start: 419 Anesthesia Stop: 1115 Procedure: Labor Analgesia Diagnosis: Scheduled Providers: Responsible Provider: Jese Espinoza MD Anesthesia Type: epidural ASA Status: 2 Anesthesia Type: epidural Last vitals BP 129/68 Pulse 71 Temp 36.5 ??C (97.7 ??F) (Oral) Resp 16 SpO2 99% Anesthesia Post Evaluation Patient location during evaluation: floor Patient participation: complete - patient participated Level of consciousness: fully awake Pain management: adequate Airway patency: adequate Cardiovascular status: acceptable Respiratory status: acceptable Hydration status: acceptable Pt is: normothermic Nausea/Vomiting status: none Comments: Patient denies headache, fevers, chills, rigors, nausea/vomiting, tingling/weakness/numbness, excessive pain/edema/drainage/erythema at needle puncture site. Patient taking PO, ambulating, urinating without Demarco catheter. Puncture site examined - no appreciable induration, erythema, swelling, drainage. Patient counseled on signs/symptoms of epidural abscess/hematoma and post dural puncture headache. Patient advised to seek immediate medical attention should she appreciate any of these. Patient voices understanding. No notable events documented. Cosigned by Ignacio Ma MD at 04/09/2024 10:19 AM BREAD JOCKEY D JOCKEY D JOCKEY * Anesthesia Preprocedure Evaluation - Taylor Finley MD - 04/03/2024 5:16 AM CST Images from the original note were not included. Anesthesia Evaluation Mary Singh is a 24 y.o. female Labor Analgesia * No Diagnosis Codes entered * HISTORY HPI Mary Singh is s 24 y.o with PMHx elevated BP and BMI > 40 who presents for labor analgesia Past Medical History Information obtained from: patient and chart. Endocrine / Other + Obesity (BMI >30)- morbid obesity (BMI>40). Day of Surgery assessments + Possibility of assessed - known to be . Patient Active Problem List Diagnosis Date Noted ??? Elevated blood pressure reading without diagnosis of hypertension 12/13/2023 ??? headache in second trimester 12/13/2023 ??? Encounter for induction of labor 04/02/2024 ??? Rh negative state in antepartum period 10/04/2023 ??? Maternal varicella, non-immune 10/04/2023 ??? Obesity complicating in first trimester 10/04/2023 ??? GBS (group b Streptococcus) UTI complicating , first trimester 10/04/2023 ??? Proteinuria complicating in first trimester 10/04/2023 ??? Family history of spina bifida 10/04/2023 ??? Supervision of high-risk , first trimester 10/04/2023 ??? History of hemorrhage, currently in first trimester 10/04/2023 ??? Chronic migraine without aura without status migrainosus, not intractable 02/09/2022 ??? Acute sinusitis 07/16/2021 ??? Facial swelling 08/08/2019 ??? Loss of hair 06/25/2019 ??? Iron deficiency 11/19/2018 ??? Migraine 11/19/2018 ??? Astigmatism 09/18/2018 ??? Sdlq-ox-nyvi spots 09/18/2018 ??? Vitamin D deficiency 09/18/2018 ??? Chronic daily headache 12/16/2016 Past Medical History: Diagnosis Date ??? Closed nondisplaced fracture of medial cuneiform of right foot 06/03/2019 ??? Elevated blood pressure affecting , antepartum 05/17/2021 - BP 143/81 on arrival at EOB, 119/80 on recheck - PreE labs wnl 05/17/21, UPC wnl - All BP subsequently normal at EOB appts Plan: [] CTM BP closely ??? HX OTHER MEDICAL T&A in 2011; Comments: MIRANDA 05/20/2014 - ??? HX OTHER MEDICAL elbow fracture 02-06-15.; Comments: MIRANDA 02/09/2015 - ??? Migraine ??? Obesity ??? Supervision of high-risk , first trimester 10/04/2023 Past Surgical History: Procedure Laterality Date ??? CYST REMOVAL ??? TONSILLECTOMY/ADENOIDECTOMY Bilateral OB History 2 Para 1 Term 1 0 AB 0 Living 1 SAB 0 IAB 0 Ectopic 0 Multiple 0 Live Births 1 No Known Allergies Taking? Last Dose Start Date End Date Provider aspirin 81 mg enteric coated tablet -- 10/13/23 10/12/24 Geeta Valentine MD Take 1 tablet (81 mg total) by mouth daily Patient not taking: Reported on 03/27/2024 [employer] COVID-19 Ag Self Test kit -- 01/26/24 -- ProviderKodi MD famotidine (PEPCID) 20 mg tablet -- 02/14/24 02/13/25 Janeth Zacarias NP Take 1 tablet (20 mg total) by mouth 2 (two) times a day magnesium oxide (MAG-OX) 400 mg (241.3 mg elemental magnesium) tablet -- 02/16/24 -- Geeta Valentine MD TAKE 1 TABLET BY MOUTH EVERY DAY vitamin ferrous fumarate-folic () 28 mg iron- 800 mcg tablet -- 07/25/23 -- Kodi Copeland MD prochlorperazine (COMPAZINE) 10 mg tablet -- 12/13/23 -- Janeth Zacarias NP Take 1 tablet (10 mg total) by mouth every 6 (six) hours as needed (headache) riboflavin, vitamin B2, 400 mg tablet -- 01/31/24 -- Serina Carmona MD Take 400 mg by mouth daily Current Facility-Administered Medications: ??? carboprost (HEMABATE) injection 250 mcg, 250 mcg, intramuscular, Once PRN ??? Carrier Fluids for Secondary Infusion - 0.9% Sodium Chloride, 30 mL, intravenous, PRN ??? cefOXitin (MEFOXITIN) 1,000 mg/10 mL in sterile water (premix) 1,000 mg, 1,000 mg, intravenous,Once PRN ??? dextrose 5% and sodium chloride 0.9% infusion (premix), 75 mL/hr, intravenous, Continuous, LastRate: 75 mL/hr at 04/03/24 0300, 75 mL/hr at 04/03/24 0300 ??? fentaNYL-BUPivacaine preservative free in 0.9% sodium chloride 2 mcg/mL- 0.1 % cassette (premix), , epidural, Continuous, Last Rate: 8 mL/hr at 04/03/24 0502, 8 mL/hr at 04/03/24 0502 ??? lidocaine (PF) (XYLOCAINE) 10 mg/mL (1 %) preservative free injection 100 mg, 10 mL, infiltration, Once PRN ??? loperamide (IMODIUM) capsule 2 mg, 2 mg, oral, Once PRN ??? methylergonovine (METHERGINE) injection 0.2 mg, 0.2 mg, intramuscular, Once PRN ??? miSOPROStoL (CYTOTEC) tablet 800 mcg, 800 mcg, rectal, Once PRN ??? naloxone (NARCAN) 0.4 mg/mL injection 0.04-0.4 mg, 0.04-0.4 mg, intravenous, Once PRN ??? ondansetron ODT (ZOFRAN-ODT) disintegrating tablet 4 mg, 4 mg, oral, Q6H PRN OR ondansetron(ZOFRAN) injection 4 mg, 4 mg, intravenous, Q6H PRN ??? oxytocin (PITOCIN) injection 10 Units, 10 Units, intramuscular, Once PRN ??? oxytocin 30 unit/500 mL (0.06 unit/mL) in sodium chloride 0.9% (premix) solution, 0-40 milliunits/min, intravenous, Titrated, Last Rate: 12 mL/hr at 04/03/24 0300, 12 milliunits/min at 04/03/24 0300 AND Rupture of membranes Category 3 (III) heart rate tracing Prolonged or recurrent FHR decelerations Prolonged minimal variability Change in FHR baseline Uterine tachysystole requiring intervention , , , Continuous ??? [COMPLETED] penicillin G potassium 5 million units/50 mL in sterile water (premix) 5 Million Units, 5 Million Units, intravenous, Once, 5 Million Units at 04/03/24 0011 FOLLOWED BY penicillinG potassium 3 million units/50 mL in dextrose (premix) 3 Million Units, 3 Million Units, intravenous, Q4H, 3 Million Units at 04/03/24 0513 ??? sodium chloride 0.9% bolus 1,000 mL, 1,000 mL, intravenous, Once PRN ??? sodium chloride 0.9% bolus 1,000 mL, 1,000 mL, intravenous, Once PRN ??? sodium chloride 0.9% flush 0.5-20 mL, 0.5-20 mL, intra-catheter, Q8H GRANT (ALT) ??? sodium chloride 0.9% flush 0.5-20 mL, 0.5-20 mL, intra-catheter, PRN ??? terbutaline (BRETHINE) injection 0.125 mg, 0.125 mg, intravenous, Once PRN OR terbutaline (BRETHINE) injection 0.25 mg, 0.25 mg, subcutaneous, Once PRN ??? tranexamic acid (CYKLOKAPRON) 1,000 mg/100 mL (10 mg/mL) in sodium chloride (premix) 1,000 mg, 1,000 mg, intravenous, Once PRN Facility-Administered Medications Ordered in Other Encounters: ??? lidocaine-EPINEPHrine (XYLOCAINE with EPI) 2 %-1:200,000 preservative free injection, , epidural, PRN, 5 mL at 04/03/24 0451 Social History Tobacco Use Smoking Status Never Smokeless Tobacco Never Alcohol Use: Not At Risk (10/13/2023) AUDIT-C ??? Frequency of Alcohol Consumption: Never ??? Average Number of Drinks: Patient does not drink ??? Frequency of Binge Drinking: Never Substance and Sexual Activity Drug Use Never Family History Problem Relation Age of Onset ??? Hypertension Father Hypertension; ??? Other Mother Alive and well at age 44.; PAT Physical Exam Airway Exam: Mallampati: unable to eval Cervical ROM: FROM Cardiovascular Exam: Rate: regular Rhythm: regular Pulmonary Exam: (Normal WOB on RA) Vitals: 04/03/24 0150 04/03/24 0152 04/03/24 0410 BP: 113/58 Pulse: 80 83 Resp: Temp: 36.6 ??C (97.8 ??F) SpO2: 99% PT: No results found for requested labs within last 30 days. INR: No results found for requested labs within last 30 days. APTT: No results found for requested labs within last 30 days. Hgb A1C: No results found for requested labs within last 30 days. CBC RBC: 04/02/2024: 3.87 M/cumm (L) RDW: No results found for requested labs within last 30 days. MCHC: 04/02/2024: 33.9 g/dL MCH: 04/02/2024: 30.5 pg MCV: 04/02/2024: 89.9 fL Hct: 04/02/2024: 34.8 % (L) Hgb: 04/02/2024: 11.8 g/dL (L) WBC: 04/02/2024: 9.1 K/cumm MPV: 04/02/2024: 10.1 fL Platelets: 04/02/2024: 228 K/cumm RDW CV: 04/02/2024: 13.5 % RDW Sd: 04/02/2024: 44.2 fL BMP Glucose: 04/02/2024: 103 mg/dL Calcium: 04/02/2024: 9.3 mg/dL Sodium: 04/02/2024: 138 mmol/L Potassium: 04/02/2024: 4.0 mmol/L CO2: 04/02/2024: 22 mmol/L Chloride: 04/02/2024: 106 mmol/L BUN: 04/02/2024: 6 mg/dL Creatinine: 04/02/2024: 0.54 mg/dL (L) DOS Physical Exam Medical history, medications, and allergies reviewed. Attestation: This PAT evaluation Airway Exam: Mallampati: II Cervical ROM: FROM TM distance: 3.5 Cardiovascular Exam: Rate: regular Rhythm: regular Pulmonary Exam: LCTA, bilat EENT Exam: trachea midline Dental Exam: Appears intact Current state: Patient's current state is cooperative and interactive. Anesthesia Plan ASA 2 My patient is approved for the Anesthesia Controlled Medication protocol when under care of a BANKING SERVICES CLERK Planned anesthesia: Epidural Postoperative Plan: Postoperative administration opioids intended. No postoperative mechanical ventilation intended. Patient's planned disposition post procedure is Floor. Informed Consent: Discussed plan with attending. Anesthesia plan and risks discussed with patient. Plan and Consent Comments: Discussed risks, benefits, alternatives to neuraxial anesthesia, including but not limited to PDPH,risk of prolonged or permanent numbness/weakness/paralysis, bleeding, infection. Pt voiced understanding and acceptance of risks and a desire to proceed with labor neuraxial anesthesia. Consent and Attending signature: I and/or my designee have discussed the anesthesia plan, benefits, possible alternatives, parental presence at time of induction (if indicated), and clinically relevant risks that may include dental injury, unintentional awareness, and/or other complications. The patient and/or parent/legal guardian understand, and agree to proceed. All questions answered. D JOCKEY D JOCKEY D JOCKEY * Anesthesia Procedure Notes - Kash Garcia MD - 04/03/2024 5:15 AM CSTAssociated Order(s): Epidural Block Epidural Block Patient location: floor Reason for block: labor analgesia Staff: Placed by: Anesthesiologist: Taylor Finley MD Resident: Kash Garcia MD Procedure prep: Preprocedure checklist: patient identified, procedure contraindications assessed, procedure consentobtained, surgical consent, IV checked, risks, benefits and alternatives discussed, monitors and equipment checked and timeout performed Patient Position: sitting Procedure performed while patient: awake Monitoring: oximetry and blood pressure Prep solution: chlorhexadine/alcohol PPE: provider hat/mask, sterile drape and sterile gloves Skin infiltrated with lidocaine 1%: yes Epidural: Approach: midline Imaging guidance used: no Location: L3-4 Number of attempts:1 Epidural needle: Injection technique: WHITNEY saline Needle type: Tuohy Needle gauge: 18 G Needle length: 9 cm Loss of resistance: 8 cm Catheter: Catheter type: multi-orifice. Catheter at skin depth: 13 cm Negative aspiration of blood: no Negative aspiration of CSF: no Test dose: negative Assessment: Sensory level - left: full eval pending Sensory level - right: full eval pending Events: patient tolerated procedure well with no complications and blood aspirated Additional comments: Blood aspirated initially though not a continuous column of blood and test dose negative. D JOCKEY documented in this encounter Plan of Treatment Not on file documented as of this encounter Procedures Procedure Name Priority Date/Time Associated Diagnosis Comments ANESTHESIA EPIDURAL BLOCK Routine 04/03/2024 5:15 AM BREAD JOCKEY documented in this encounter Results * Epidural Block (04/03/2024 5:15 AM BREAD JOCKEY) Narrative Kash Garcia MD - 04/03/2024 5:15 AM BREAD JOCKEY Kash Garcia MD ? 04/03/2024 ??5:16 AM Epidural Block Patient location: floor Reason for block: labor analgesia Staff: Placed by: Anesthesiologist: Taylor Finley MD Resident: Kash Garcia MD Procedure prep: Preprocedure checklist: patient identified, procedure contraindications assessed, procedure consent obtained, surgical consent, IV checked, risks, benefits and alternatives discussed, monitors and equipment checked and timeout performed Patient Position: sitting Procedure performed while patient: awake Monitoring: oximetry and blood pressure Prep solution: chlorhexadine/alcohol PPE: provider hat/mask, sterile drape and sterile gloves Skin infiltrated with lidocaine 1%: yes Epidural: Approach: midline Imaging guidance used: no Location: L3-4 Number of attempts:1 Epidural needle: Injection technique: WHITNEY saline Needle type: Tuohy Needle gauge: 18 G Needle length: 9 cm Loss of resistance: 8 cm Catheter: Catheter type: multi-orifice. Catheter at skin depth: 13 cm Negative aspiration of blood: no Negative aspiration of CSF: no Test dose: negative Assessment: Sensory level - left: full eval pending Sensory level - right: full eval pending Events: patient tolerated procedure well with no complications and blood aspirated Additional comments: Blood aspirated initially though not a continuous column of blood and test dose negative. Taylor Finley MD ANESTHESIA ORDERABLES Dilcia l Result documented in this encounter Visit Diagnoses Not on filedocumented in this encounter Administered Medications Inactive Administered Medications - up to 3 most recent administrations Medication Order MAR Action Action Date Dose Rate Site fentaNYL-BUPivacaine preservative free in 0.9% sodium chloride 2 mcg/mL- 0.1 % cassette (premix) Continuous Rate: 8 mL/hr, Patient Bolus Dose: 5 mL, Lockout Interval: 15 Minutes, epidural, Continuous, Starting on Mon04/03/24 at 0445, Until Mon04/03/24 at 1935, 100 mL, Indications: Pain, Stop epidural infusion after placental delivery and any indicated repair is complete., RoutineIndications:Pain New Syringe/Cartridge 04/03/2024 10:52 AM BREAD JOCKEY Rate/Dose Change 04/03/2024 5:02 AM BREAD JOCKEY 8 mL/hr 8 mL/hr Bolus 04/03/2024 5:01 AM BREAD JOCKEY 5 mL lidocaine-EPINEPHrine (XYLOCAINE with EPI) 2 %-1:200,000 preservative free injection epidural, As needed, Starting on Mon04/03/24 at 0451, Anesthesia Intra-op, Indications: Administration of Local AnesthesiaIndications:Administration of Local Anesthesia Given 04/03/2024 4:51 AM BREAD JOCKEY 5 mL documented in this encounter Orders Medications Ordered That Quincy ht Not Have Been Administered Count Last Ordered Date First Ordered Date lidocaine-EPINEPHrine (XYLOC SAMMY with EPI) 2 %-1:200,000 preservative free injection 1 04/03/2024 documented in this encounter Care Teams Painter And Body Mechanic Apprentice Relationship Specialty Start Date End Date No, Physician PCP - General 12/03/23 Jarred Roy MD 2 [facility] [address] [address] 01/30/19 Elma Echevarria NP 2 [facility] [address] [address] Nurse Practitioner General Surgery 12/16/19 documented as of this encounter
--- OUTSIDE RECORDS SUMMARY | 2024-05-10 20:15 | XMS_ITS | Encounter Summary ---
Author Organization [facility] Address [address] [place] [address] Phone Care Team Providers Care Guidance Consultant Name Role Phone Jarred Roy MD Unavailable [phone] Elma Echevarria NP Unavailable No, Physician Primary Care Provider [phone] Encounter Details Date Type Department Care Team (Late st Contact Info) Description 02/14/2024 Orders Only [facility] Maternal- Medicine [address] [place] [address] Breanna Quijano RN Social History Tobacco Use Types Packs/Day Years [...] often do you attend chur ch or voodoo services? Never 07/21/2021 Do you belong to any clubs o r organizations such as cheondoism groups, unions, fraternal or athletic groups, or [...] place to sleep or slept in a retirement (including now)? 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 Gender Identity Not on file Sexual Orientation Not on file documented as of this encounter Ordered Prescriptions Prescription Sig Dispense Quantity Refills Last Filled Start Date End Date respiratory syncytial virus, diluent reconstituted (Abrysvo, PF,) 120 mcg/0.5 mL recon soln Inject 0.5 mL into the muscle as instructed once for 1 dose 0.5 mL 02/14/2024 4 documented in this encounter Plan of Treatment Not on file documented as of this encounter Visit Diagnoses Not on filedocumented in this encounter Care Teams Guidance Consultant Relationship Specialty Start Date End Date No, Physician PCP - General 12/03/23 Jarred Roy MD [address] [address] 01/30/19 Elma Echevarria NP [address] [address] Nurse Practitioner General Surgery 12/16/19 documented as of this encounter
--- OUTSIDE RECORDS SUMMARY | 2024-05-10 20:15 | XMS_ITS | Encounter Summary ---
Author Organization [facility] Healthcare Address [address] [place] [address] Care Team Providers Care Business Office Director Name Role Phone Jarred Roy MD Unavailable [phone] Elma Echevarria NP Unavailable No, Physician Primary Care Provider [phone] Encounter Details Date Type Department Care Team (Latest Contact Info) Description 03/13/2024 10:34 AM CADMIUM LIQUOR MAKER - 03/13/2024 11:59 PM [facility] Hospital Encounter [address] [address] Supervision of high-risk , first trimester Discharge Disposition: Discharge to home or self [...] often do you attend chur ch or presybeterian services? Never 07/21/2021 Do you belong to any clubs o r organizations such as mandaen groups, unions, fraternal or athletic groups, or [...] place to sleep or slept in a skilled nursing (including now)? No 07/21/2021 [place] Depression Scale Answer Date Recorded [place] Depression Scale Total 6 09/03/2021 The thought [...] on file Legal Sex Female 11:28 PM CADMIUM LIQUOR MAKER Gender Identity Not on file Sexual Orientation [...] Procedure Name Priority Date/Time Associated Diagnosis Comments GROUP B STREPTOCOCCUS CULTURE Routine 03/13/2024 1:33 PM CADMIUM LIQUOR MAKER Supervision of high-risk , first trimester documented in this encounter Results * (ABNORMAL) Group B streptococcal culture Vaginal/Rectal (03/13/2024 1:33 PM CADMIUM LIQUOR MAKER) Report Final Report: Streptococcus agalactiae (Group B Streptococci) * ??* ??* ??* ??* ??* ??* ??* ??* ??* ??* ??* ??* ??* ??* ??* ??* ??* ??* ??* Resistance to penicillin in Group B Streptococcus has not been reported. ??Group B Streptococci are universally susceptible to beta-lactam antibiotics and vancomycin. Routine susceptibility testing is not performed. In penicillin allergic patients, please contact the laboratory at [phone] to request susceptibility testing * ??* ??* ??* ??* ??* ??* ??* ??* ??* ??* ??* ??* ??* ??* ??* ??* ??* ??* ??* (.) Organism STREPTOCOCCUS AGALACTIAE (GROUP B STREPTOCOCCI) [facility] Vaginal/Rectal 03/13/2024 1: 33 PM CADMIUM LIQUOR MAKER 03/13/2024 2:20 PM CADMIUM LIQUOR MAKER [facility]ative [facility] - 03/15/2024 1:08 PM CADMIUM LIQUOR MAKER Testing performed by [facility] ([phone]). Janeth Zacarias NP LAB MICROBIOLOGY - GENERAL ORDERABLES Final Result [facility] Department [place] [address] documented in this encounter Visit Diagnoses Diagnosis Supervision of high-risk , first trimester documented in this encounter Care Teams Business Office Director Relationship Specialty Start Date End Date No, Physician PCP - General 12/03/23 Jarred Roy MD 2 COUNTS INCLUDE 234 BEDS AT [facility] [address] [address] 01/30/19 Elma Echevarria NP 2 COUNTS INCLUDE 234 BEDS AT [facility] [address] [address] Nurse Practitioner General Surgery 12/16/19 documented as of this encounter
--- OUTSIDE RECORDS SUMMARY | 2024-05-10 20:15 | XMS_ITS | Encounter Summary ---
Author Organization [facility] Address [address] [place] [address] Phone Care Team Providers Care Race Steward Name Role Phone Jarred Roy MD Unavailable [phone] Elma Echevarria NP Unavailable No, Physician Primary Care Provider [phone] Reason for Referral * (Routine) - Pending Review Specialty Diagnoses / Procedures Referred By Loyd t Referred To Contact Diagnoses Obesity affecting , antepartum, unspecified obesity type Procedures nonstress test - Janeth Zacarias NP [address] [facility] [phone] [place] [address] Phone: tel: fax: [facility] (All Locations) Referral ID Status Reason Start Date Expiration Date V isits Requested Visits Authorized [id number] Pending Review 03/27/2024 04/26/2025 1 1 GHT ASSOCIATE Reason for Visit * Reason Comments Non-stress Test Encounter Details Date Type Department Care Team (Latest Contact Info) Description 03/27/2024 10:30 AM FREIGHT ASSOCIATE Clinical Support [facility] Obstetrics and Gynecology [address] [facility] 7th [place] [address] Obesity affecting , antepartum, unspecified obesity type (Primary Dx) Social History Tobacco Use Types Packs/Day Years [...] often do you attend chur ch or hoahaoism services? Never 07/21/2021 Do you belong to any clubs o r organizations such as jainism groups, unions, fraternal or athletic groups, or [...] place to sleep or slept in a intermediate (including now)? No 07/21/2021 [place] Depression Scale Answer Date Recorded [place] Depression Scale Total 6 09/03/2021 The thought [...] on file Legal Sex Female 11:28 PM FREIGHT ASSOCIATE Gender Identity Not on file Sexual Orientation Not on file documented as of this encounter Last Filed Vital Signs Vital Sign Reading Time Taken Comments Blood Pressure 130/78 03/27/2024 11:17 AM FREIGHT ASSOCIATE Pulse 86 03/27/2024 11:17 AM FREIGHT ASSOCIATE Temperature - - Respiratory Rate - - Oxygen Saturation - - Inhaled Oxygen Concentration - - Weight - - Height - - Body Mass Index - - documented in this encounter Plan of Treatment Not on file documented as of this encounter Procedures Procedure Name Priority Date/Time Associated Diagnosis Comments NONSTRESS TEST Routine 03/27/2024 11:18 AM FREIGHT ASSOCIATE Obesity affecting , antepartum, unspecified obesity type documented in this encounter Results * nonstress test - (03/27/2024 11:18 AM FREIGHT ASSOCIATE) Janeth Zacarias SUBSTATION OPERATOR HELPER GENERATION OB GYNE ORDERABLES Final Result documented in this encounter Visit Diagnoses Diagnosis Obesity affecting , antepartum, unspecified obesity type- Primary documented in this encounter Care Teams Race Steward Relationship Specialty Start Date End Date No, Physician PCP - General 12/03/23 Jarred Roy MD [address] [place] [address] 01/30/19 EyeElma charles NP 2 [facility] [address] [address] Nurse Practitioner General Surgery 12/16/19 documented as of this encounter
--- OUTSIDE RECORDS SUMMARY | 2024-05-10 20:15 | XMS_ITS | Encounter Summary ---
Author Organization [facility] Healthcare Address [address] [place] [address] Care Team Providers Care Printed Circuit Board Panels Deburrer Name Role Phone Jarred Roy MD Unavailable [phone] EyersElma NP Unavailable No, Physician Primary Care Provider [phone] Encounter Details Date Type Department Care Team (Late st Contact Info) Description 02/28/2024 11:05 AM CDT Lab [facility] [address] [facility] [place] [address] Supervision of high-risk , first trimester Social [...] often do you attend chur ch or druze services? Never 07/21/2021 Do you belong to any clubs o r organizations such as adventism groups, unions, fraternal or athletic groups, or [...] place to sleep or slept in a [place] health care facility (including now)? No 07/21/2021 [place] Depression Scale Answer Date Recorded [place] Depression Scale Total 6 09/03/2021 The thought [...] on file Legal Sex Female 11:28 PM FINISH SAW OPERATOR Gender Identity Not on file Sexual Orientation Not on file documented as of this encounter Plan of Treatment Not on file documented as of this encounter Procedures Procedure Name Priority Date/Time Associated Diagnosis Comments HIV 1/2 ANTIBODY PLUS P24 ANTIGEN Routine 02/28/2024 11:14 AM CDT Supervision of high-risk , first trimester RPR Routine 02/28/2024 11:14 AM CDT Supervision of high-risk , first trimester CBC WITHOUT DIFFERENTIAL Routine 02/28/2024 11:14 AM CDT Supervision of high-risk , first trimester documented in this encounter Results * CBC without differential (02/28/2024 11:14 AM CDT) WBC 8.4 3.8 - 9.9 K/cumm Hgb 12.1 11.9 - 15.5 g/dL [facility] Hct 35.8 35.6 - 45.5 % [facility] Plt 237 150 - 400 K/cumm [facility] MPV 9.9 9.1 - 12.3 fL [facility] RBC 3.91 3.90 - 5.20 M/cumm [facility] MCV 91.6 81.3 - 96.4 fL [facility] MCH 30.9 27.1 - 33.3 pg [facility] MCHC 33.8 32.3 - 35.7 g/dL [facility] RDW CV 13.4 11.1 - 14.9 % [facility] RDW SD 44.9 35.7 - 48.1 fL [facility] NRBC abs 0.00 0.00 - 0.01 K/cumm [facility] Blood 02/28/2024 11:1 4 AM CDT 02/28/2024 11:47 AM CDT us Janeth Zacarias MANAGER CONSTRUCTION LAB BLOOD [place] [address] * HIV 1/2 Antibody plus p24 Antigen Blood (02/28/2024 11:14 AM CDT) HIV 1/2 ab + p24 ag Nonreactive Nonreactive Comment:Nonreactive for HIV- 1 antigen and HIV-1/HIV-2 antibodies. No laboratory evidence of HIV infection. If acute HIV infection is suspected, consider testing for HIV-1 RNA. Current interpretive data was last revised on 22. Blood 02/28/2024 11:1 4 AM CDT 02/28/2024 11:47 AM CDT Janeth Zacarias NP LAB MICROBIOLOGY - GENERAL ORDERABLES Final Result Performing Organization Address City/[facility] [place] [address] * RPR Blood (02/28/2024 11:14 AM CDT) RPR Nonreactive Nonreactive Blood 02/28/2024 11:1 4 AM CDT 02/28/2024 11:47 AM CDT Janeth Zacarias NP LAB MICROBIOLOGY - GENERAL ORDERABLES Final Result Performing Organization Address [facility] [place] [address] documented in this encounter Visit Diagnoses Diagnosis Supervision of high-risk , first trimester documented in this encounter Care Teams Printed Circuit Board Panels Deburrer Relationship Specialty Start Date End Date No, Physician PCP - General 12/03/23 Jarred Roy MD [address] [address] 01/30/19 Elma Echevarria NP 2 [facility] [address] [address] Nurse Practitioner General Surgery 12/16/19 documented as of this encounter
--- OUTSIDE RECORDS SUMMARY | 2024-05-10 20:15 | XMS_ITS | Encounter Summary ---
Author Organization [facility] Healthcare Address [address] [place] [address] Care Team Providers Care Manager Technical Services Name Role Phone Jarred Roy MD Unavailable [phone] EyeElma charles NP Unavailable No, Physician Primary Care Provider [phone] Encounter Details Date Type Department Care Team (Late st Contact Info) Description 04/18/2024 11:55 AM AUTOMOBILE DEALER Lab [facility] [address] [facility] [place] [address] Encounter for routine follow-up Social History Tobacco Use Types Packs/Day Years Used Date Smoking Tobacco: Never Smokeless Tobacco: Never Alcohol Use Standard Drinks/Week Comments No 0 (1 standard drink = 0.6 oz pur e alcohol) [facility] Utilities Answer Date Recorded In the past 12 months has [employer], gas, oil, or water [employer] threatened to shut off services in your [...] week 04/04/2024 How often do you attend [facility] or caodaism services? Never 04/04/2024 Do you belong to any clubs o r organizations such as mormonism groups, unions, fraternal or athletic groups, or [...] place to sleep or slept in a senior care (including now)? No 07/21/2021 [place] Depression Scale Answer Date Recorded [place] Depression Scale Total 4 04/18/2024 The thought of harming myself has occurred to me . Never 04/18/2024 Housing Stability Vital Sign Answer Abraham e Recorded In the last 12 months, was t here a time when you were not able to pay the mortgage or rent on time? No 04/04/2024 In the past 12 months, how m any times have you moved where you were living? 1 04/04/2024 At any time in the past 12 m [facility], were you homeless or living in a senior care (including now)? No 04/04/2024 Personal Safety Answer Date Recorded Have you ever been in or are you currently in a harmful physical or emotional relationship or is someone making you feel afraid or unsafe? Denies 04/03/2024 Comments No Sex and Gender Information Value Date Recorded Sex Assigned at Not on file Legal Sex Female 11:28 PM AUTOMOBILE DEALER Gender Identity Not on file Sexual Orientation Not on file documented as of this encounter Plan of Treatment Not on file documented as of this encounter Procedures Procedure Name Priority Date/Time Associated Diagnosis Comments CBC WITHOUT DIFFERENTIAL Routine 04/18/2024 12:08 PM AUTOMOBILE DEALER Encounter for routine follow-up FERRITIN Routine 04/18/2024 12:08 PM AUTOMOBILE DEALER Encounter for routine follow-up documented in this encounter Results * CBC without differential (04/18/2024 12:08 PM AUTOMOBILE DEALER) WBC 7.0 3.8 - 9.9 K/cumm Hgb 14.4 11.9 - 15.5 g/dL [facility] Hct 44.4 35.6 - 45.5 % [facility] Plt 324 150 - 400 K/cumm [facility] MPV 10.2 9.1 - 12.3 fL [facility] RBC 4.87 3.90 - 5.20 M/cumm [facility] MCV 91.2 81.3 - 96.4 fL [facility] MCH 29.6 27.1 - 33.3 pg [facility] MCHC 32.4 32.3 - 35.7 g/dL [facility] RDW CV 12.8 11.1 - 14.9 % [facility] RDW SD 43.2 35.7 - 48.1 fL [facility] NRBC abs 0.00 0.00 - 0.01 K/cumm [facility] Blood 04/18/2024 12:0 8 PM AUTOMOBILE DEALER 04/18/2024 2:29 PM AUTOMOBILE DEALER Janeth Griselda Zacarias ELECTRICAL MAINTENANCE WORKER LAB BLOOD ORDERABLE S Final Result Performing Organization Address [facility] Co de Phone Number [facility] [place] [address] * Ferritin (04/18/2024 12:08 PM AUTOMOBILE DEALER) Ferritin See Comment 13 - 150 ng/mL Comment:Credited; Hemolyzed Specimen Blood 04/18/2024 12:0 8 PM AUTOMOBILE DEALER 04/18/2024 2:29 PM AUTOMOBILE DEALER Janeth Zacarias ELECTRICAL MAINTENANCE WORKER LAB BLOOD ORDERABLE S Final Result Performing Organization Address [facility] de Phone Number [facility] [place] [address] documented in this encounter Visit Diagnoses Diagnosis Encounter for routine follow-up documented in this encounter Care Teams Manager Technical Services Relationship Specialty Start Date End Date No, Physician PCP - General 12/03/23 Jarred Roy MD 2 [facility] [address] [address] 01/30/19 Elma Echevarria NP 2 [facility] [place] [address] [place] [address] Nurse Practitioner General Surgery 12/16/19 documented as of this encounter
--- OUTSIDE RECORDS SUMMARY | 2024-05-10 20:15 | XMS_ITS | Encounter Summary ---
Author Organization [facility] Address [address] [place] [address] Phone Care Team Providers Care Flatwork Tier Name Role Phone Jarred Roy MD Unavailable [phone] Elma Echevarria NP Unavailable No, Physician Primary Care Provider [phone] Reason for Visit * Reason Comments Follow-up Encounter Details Date Type Department Care Team (Late st Contact Info) Description 04/18/2024 11:20 AM PICKLE SOLUTION MAKER Office Visit [facility] Maternal- Medicine [address] [place] [address] 7th [address] [place] [address] Encounter for routine follow-up (Primary Dx) Social History Tobacco Use Types Packs/Day Years Used Date Smoking Tobacco: Never Smokeless Tobacco: Never Tobacco Cessation:Counseling Given: Not Answered Alcohol Use Standard Drinks/Week Comments No 0 (1 standard drink = 0.6 oz pur e alcohol) [facility] Utilities Answer Date Recorded In the past 12 months has [employer], gas, oil, or water company threatened [...] often do you attend chur ch or episcopalian services? Never 04/04/2024 Do you belong to any clubs o r organizations such as restorationist groups, unions, fraternal or athletic groups, or [...] place to sleep or slept in a long-term (including now)? No 07/21/2021 [place] Depression Scale Answer Date Recorded [place] Depression Scale Total 4 04/18/2024 The thought [...] any time in the past 12 m [facility], were you homeless or living in a long-term (including now)? No 04/04/2024 Personal Safety Answer Date Recorded Have you ever been in or are you currently in a harmful physical or emotional relationship or is someone making you feel afraid or unsafe? Denies 04/03/2024 Comments No Sex and Gender Information Value Date Recorded Sex Assigned at Not on file Legal Sex Female 11:28 PM PICKLE SOLUTION MAKER Gender Identity Not on file Sexual Orientation Not on file documented as of this encounter Last Filed Vital Signs Vital Sign Reading Time Taken Comments Blood Pressure 112/70 04/18/2024 11:27 AM PICKLE SOLUTION MAKER Pulse 69 04/18/2024 11:27 AM PICKLE SOLUTION MAKER Temperature - - Respiratory Rate - - Oxygen Saturation 98% 04/18/2024 11: 27 AM PICKLE SOLUTION MAKER Inhaled Oxygen Concentration - - Weight 138.9 kg (306 lb 3.2 oz) 024 11:27 AM PICKLE SOLUTION MAKER Height 165.1 cm (5' 5 ) 04/18/2024 11:2 7 AM PICKLE SOLUTION MAKER Body Mass Index 50.95 04/18/2024 11:27 AM PICKLE SOLUTION MAKER documented in this encounter Progress Notes * Janeth Zacarias, [facility] - 04/18/2024 11:20 AM CST [facility] Visit 04/18/2024 Delivery Date: 04/03/2024 Type: Vaginal [[id number]] Delivery Details: uncomplicated Subjective: Mary Singh is a 24 y.o. now here for 2 weeks exam following a Vaginal Since delivery she has been doing well. Her pain is well controlled and she reports small vaginal bleeding. Denies vaginal, bowel or bladder issues. Currently formula feeding and denies issues with breasts. Reports mood has been good. She is requesting we check her iron today because she is tired and cold often. She still strongly desires salpingectomy. Objective: BP 112/70 Pulse 69 Ht 165.1 cm (5' 5 ) Wt (!) 306 lb 3.2 oz (138.9 kg) LMP 07/05/2023 (Exact Date) SpO2 98% No BMI 50.95 kg/m?? General: Pleasant female in NAD CV: Breathing comfortably, regular heart rate Abdomen: soft, NT, ND Extremities: warm and well-perfused and non-tender, no edema Last pap: address at 6 weeks pp Screened for depression or prior mood disorders/blues: [place] Depression Scale Total: 4 Assessment and Plan: Mary Singh is a 24 y.o. now here for 2 week exam following a Vaginal 1. : Doing well , meeting milestones 2. Medical issues: #concern for anemia - cbc and ferritin ordered 3. Contraception: S/p depo as bridge to interval tubal. Message sent to team to help coordinate appt with CO[facility]3 team. Papers signed during . 4. depression screening: EPDS negative as above, discussed normal baby blues and post depression warning signs. Will call with questions or concerns. [place] [employer] LE SOLUTION MAKER documented in this encounter Plan of Treatment Not on file documented as of this encounter Results * Ferritin (04/18/2024 12:08 PM PICKLE SOLUTION MAKER) Ferritin See Comment 13 - 150 ng/mL Comment:Credited; Hemolyzed Specimen Blood 04/18/2024 12:0 8 PM PICKLE SOLUTION MAKER 04/18/2024 2:29 PM PICKLE SOLUTION MAKER us Janeth Zacarias NP LAB BLOOD ORDERABLE S Final Result [facility] Department [place] [address] * CBC without differential (04/18/2024 12:08 PM PICKLE SOLUTION MAKER) WBC 7.0 3.8 - 9.9 K/cumm Hgb 14.4 11.9 - 15.5 g/dL [facility] Hct 44.4 35.6 - 45.5 % [facility] Plt 324 150 - 400 K/cumm [facility] MPV 10.2 9.1 - 12.3 fL [facility] RBC 4.87 3.90 - 5.20 M/cumm [facility] MCV 91.2 81.3 - 96.4 fL [facility] MCH 29.6 27.1 - 33.3 pg [facility] MCHC 32.4 32.3 - 35.7 g/dL [facility] RDW CV 12.8 11.1 - 14.9 % [facility] RDW SD 43.2 35.7 - 48.1 fL [facility] NRBC abs 0.00 0.00 - 0.01 K/cumm [facility] Blood 04/18/2024 12:0 8 PM PICKLE SOLUTION MAKER 04/18/2024 2:29 PM PICKLE SOLUTION MAKER us Janeth Zacarias NP LAB BLOOD ORDERABLE S Final Result [facility] Department [place] [address] documented in this encounter Visit Diagnoses Diagnosis Encounter for routine follow-up- Primary documented in this encounter Discontinued Medications Medication Sig Discontinue Reason Start Date End Da te prochlorperazine (COMPAZINE) 10 mg tablet Take 1 tablet (10 mg total) by mouth every 6 (six) hours as needed (headache) Therapy completed 12/13/2023 04/18/2024 riboflavin, vitamin B2, 400 mg tabletIndications:Migra ine Prevention Take 400 mg by mouth daily Therapy completed 01/31/2024 04/18/2024 lidocaine (LIDODERM) 5 % Place 1 patch on the skin daily Remove & discard patch within 12 hours or as directed by . Therapy completed 04/04/2024 04/18/2024 famotidine (PEPCID) 20 mg tablet Take 1 tablet (20 mg total) by mouth 2 (two) times a day Therapy completed 02/14/2024 04/18/2024 documented as of this encounter Care Teams Flatwork Tier Relationship Specialty Start Date End Date No, Physician PCP - General 12/03/23 Jarred Roy MD [address] [address] 01/30/19 Elma Echevarria NP [address] [address] Nurse Practitioner General Surgery 12/16/19 documented as of this encounter
--- OUTSIDE RECORDS SUMMARY | 2024-05-10 20:15 | XMS_ITS | Encounter Summary ---
Author Organization [facility] Address [address] [place] [address] Phone Care Team Providers Care Helmet Hat Brim Cutter Name Role Phone Jarred Roy MD Unavailable [phone] Elma Echevarria NP Unavailable No, Physician Primary Care Provider [phone] Reason for Visit * Reason Comments High Risk Gestation Encounter Details Date Type Department Care Team (Late st Contact Info) Description 03/27/2024 10:00 AM COMPRESSION MOLDING MACHINE OPERATOR Office Visit [facility] Maternal- Medicine [facility] 7th Floor [address] [place] [address] Elevated blood pressure reading without [...] often do you attend chur ch or muslim services? Never 07/21/2021 Do you belong to any clubs o r organizations such as caodaism groups, unions, fraternal or athletic groups, or [...] place to sleep or slept in a longterm (including now)? No 07/21/2021 [place] Depression Scale Answer Date Recorded [place] Depression Scale Total 6 09/03/2021 The thought [...] on file Legal Sex Female 11:28 PM COMPRESSION MOLDING MACHINE OPERATOR Gender Identity Not on file Sexual Orientation Not on file documented as of this encounter Last Filed Vital Signs Vital Sign Reading Time Taken Comments Blood Pressure 130/78 03/27/2024 9:47 AM COMPRESSION MOLDING MACHINE OPERATOR Pulse 100 03/27/2024 9:47 AM COMPRESSION MOLDING MACHINE OPERATOR Temperature - - Respiratory Rate - - Oxygen Saturation 98% 03/27/2024 9:47 AM COMPRESSION MOLDING MACHINE OPERATOR Inhaled Oxygen Concentration - - Weight 149.5 kg (329 lb 9.6 oz) 03/27/2024 9:47 AM COMPRESSION MOLDING MACHINE OPERATOR Height - - Body Mass Index 54.85 03/23/2024 11:35 AM COMPRESSION MOLDING MACHINE OPERATOR documented in this encounter Progress Notes * Janeth Zacarias, PROGRAM DIRECTOR/MORNING SHOW HOST - 03/27/2024 10:00 AM CST [facility] [place] Return Visit 03/27/2024 Mary Singh is a 24 y.o. at 38w0d who is here for a return OB visit. Her is complicated by proteinuria, obesity, h/o pp hemorrhage and family history of ONTD. Subjective: She denies regular contractions, VB or LOF and reports good movement. Denies headaches, visual changes or RUQ pain. She is ready for delivery. Strongly desires salpingectomy at timeof delivery. Objective: BP 130/78 Pulse 100 Wt (!) 329 lb 9.6 oz (149.5 kg) LMP 07/05/2023 (Exact Date) SpO2 98% BMI 54.85 kg/m?? General: NAD Abdomen: Soft, gravid, NT, FHR + (added on for NST following this appt) Ultrasound: AGA, fluid normal- see finalized US report Assessment/Plan: Mary Singh is a 24 y.o. at 38w0d with a complicated by the following: Problem [...] high-risk , first trimester Overview [x] Full MFM Care as of 12/13/2023 [x] [employer] email sent 12/12 Referring Provider: Janett Robles [phone] [] or Medicare Insurance [x] Dating Criteria: [...] at 28 wks: 01/17/2024 3rd Tri Labs: [x] CBC/HIV/RPR: 12.1/35.8/237k HIV: NR RPR: NR [x] GBS: positive [x] testing: weekly at 34 weeks 2/2 obesity [x] RSV: rx placed 02/14/2024 Counseling [x] MOD: IOL; scheduled for 04/02 at 11pm, letter sent to patient [x] Place of delivery: [facility] [x] Epidural: desires [x] Blood Products: willing to accept [x] Stop ASA- discussed [x] MOC: Pt strongly desires salpingectomy (hopefully [...] makes. She is considering exclusively pumping. [x] Plastic Tile Layer: [x] PP Depression Discussed: Labor/PEC/FKC precautions reviewed. Reviewed the importance of presenting to her closest hospital in the case of an emergency for evaluation and if necessary and safe will be transferred to [facility]. [place] [employer] RESSION MOLDING MACHINE OPERATOR documented in this encounter Plan of Treatment Not on file documented as of this encounter Visit Diagnoses Diagnosis Elevated blood pressure reading without diagnosis of hypertension- Primary Family history of spina bifida Family history of congenital anomalies History of hemorrhage, currently in first trimester Obesity affecting in first trimester, unspecified obesity type headache in second trimester Proteinuria complicating in first trimester Supervision of high-risk , first trimester documented in this encounter Care Teams Helmet Hat Brim Cutter Relationship Specialty Start Date End Date No, Physician PCP - General 12/03/23 Jarred Roy MD [address] [address] 01/30/19 Elma Echevarria NP [address] [address] Nurse Practitioner General Surgery 12/16/19 documented as of this encounter
--- OUTSIDE RECORDS SUMMARY | 2024-05-10 20:15 | XMS_ITS | Encounter Summary ---
Author Organization [facility] Address [address] [place] [address] Phone Care Team Providers Care Layup Worker Name Role Phone Jarred Roy MD Unavailable [phone] Elma Echevarria NP Unavailable No, Physician Primary Care Provider [phone] Reason for Referral * (Routine) - Pending Review Specialty Diagnoses / Procedures Referred By Loyd t Referred To Contact Diagnoses Obesity affecting , antepartum, unspecified obesity type Procedures nonstress test - Janeth Zacarias NP [address] [facility] [id number] [place] [address] Phone: tel: fax: [facility] (All Locations) Referral ID Status Reason Start Date Expiration Date V isits Requested Visits Authorized [id number] Pending Review 03/20/2024 04/19/2025 1 1 OACTIVITY TECHNICIAN Reason for Visit * Reason Comments Non-stress Test Encounter Details Date Type Department Care Team (Latest Contact Info) Description 03/20/2024 9:30 AM RADIOACTIVITY TECHNICIAN Clinical Support [facility] Obstetrics and Gynecology [address] [facility] [address]th [place] [address] Obesity affecting , antepartum, unspecified obesity type [...] often do you attend chur ch or roman catholic services? Never 07/21/2021 Do you belong to any clubs o r organizations such as bahai groups, unions, fraternal or athletic groups, or [...] in a longterm (including now)? No 07/21/2021 [place] Depression Scale Answer Date Recorded [place] Depression Scale Total 6 09/03/2021 The thought [...] on file Legal Sex Female 11:28 PM RADIOACTIVITY TECHNICIAN Gender Identity Not on file Sexual Orientation Not on file documented as of this encounter Last Filed Vital Signs Vital Sign Reading Time Taken Comments Blood Pressure 129/77 03/20/2024 10:25 AM RADIOACTIVITY TECHNICIAN Pulse - - Temperature - - Respiratory Rate - - Oxygen Saturation - - Inhaled Oxygen Concentration - - Weight - - Height - - Body Mass Index - - documented in this encounter Plan of Treatment Not on file documented as of this encounter Procedures Procedure Name Priority Date/Time Associated Diagnosis Comments NONSTRESS TEST Routine 03/20/2024 10:48 AM RADIOACTIVITY TECHNICIAN Obesity affecting , antepartum, unspecified obesity type documented in this encounter Results * nonstress test - (03/20/2024 10:48 AM RADIOACTIVITY TECHNICIAN) us Janeth Zacarias TUMBLER OPERATOR OB GYNE ORDERABLES Final Result documented in this encounter Visit Diagnoses Diagnosis Obesity affecting , antepartum, unspecified obesity type- Primary documented in this encounter Care Teams Layup Worker Relationship Specialty Start Date End Date No, Physician PCP - General 12/03/23 Jarred Roy MD [address] [place] [address] 01/30/19 Elma Echevarria NP [address] [place] [address] Nurse Practitioner General Surgery 12/16/19 documented as of this encounter
--- OUTSIDE RECORDS SUMMARY | 2024-05-10 20:15 | XMS_ITS | Clinical Summary ---
Author Organization [facility] Address [address] [place] [address] Care Team Providers Care Steel Inspector Name Role Phone Jarred Roy MD Unavailable [phone] EyersElma NP Unavailable No, Physician Primary Care Provider [phone] Allergies No known active allergies Medications vitamin ferrous fumarate-folic () 28 mg iron- 800 mcg tablet Take 1 tablet every day by oral route. 4 Active acetaminophen (TYLENOL) 325 mg tablet Take 2 tablets (650 mg total) by mouth every 6 (six) hours as needed for pain 30 tablet 4 Active prochlorperazin e (COMPAZINE) 10 mg tablet Take 1 tablet (10 mg total) by mouth every 6 (six) hours as needed (headache) 30 tablet 4 04/18/20 24 Discontinue d(Therapy completed) riboflavin, vitamin B2, 400 mg tabletIndicatio ns:Migraine Prevention Take 400 mg by mouth daily 30 tablet 3 4 04/18/20 24 Discontinue d(Therapy completed) famotidine (PEPCID) 20 mg tablet Take 1 tablet (20 mg total) by mouth 2 (two) times a day 60 tablet 3 4 04/18/20 24 Discontinue d(Therapy completed) ibuprofen (ADVIL,MOTRIN) 600 mg tabletIndicatio ns:Cramps Take 1 tablet (600 mg total) by mouth every 6 (six) hours as needed for pain 120 tablet 4 05/04/20 24 lidocaine (LIDODERM) 5 % Place 1 patch on the skin daily Remove & discard patch within 12 hours or as directed by MD. 9 patch 4 04/18/20 24 Discontinue d(Therapy completed) Active Problems Problem Noted Date Diagnosed Date state 04/02/2024 Overview (04/04/2024): # ID: Afebrile. No signs/symptoms of infection. # Heme: QBL 223 mL. Hemodynamically stable. # CV/Pulm: Vital signs stable, within normal limits. Not a candidate for remote blood pressure monitoring. #Elevated BP: on home cuff that was not validated, has been normotensive at all visits. Baseline CBC/CMP WNL, baseline UPC WNL. Admit labs WNL, UPC 0.14. Normotensive on admission. # GI/: Tolerating PO. Voiding spontaneously. # Pain: Controlled with above regimen. # MOC: Desires interval tubal. To be set up in [facility] for interval tubal. DMPA as bridge. # MOF: Formula feeding. Urine drug screen not indicated. Patient informed of results: N/A. # Post DVT prophylaxis: The patient has the following MAJOR risk factors BMI >/= 40 and the following MINOR risk factors none. enoxaparin 40 mg BID ordered for VTE prophylaxis. # Disposition: Follow up task sent to [facility] scheduling pool for appointments in 2 and 6 weeks. Desires discharge home today. #Rh neg: s/p Rhogam 01/17/24, for Rhogam prior to d/c #Headache: controlled on topomax outside of , Mg/B6 during , compazine PRN Service Coverage These phones are service phones and carried 28/11 in house: R1 (first call) [phone] R1 alt (second call) [phone] R4 (Chief) [phone] Proteinuria complicating in first trim brennan 10/04/2023 Overview (11/24/2023): Previously counseled 24 hour urine collected in the setting of a UTI. UPC urine protein <5, ratio too low to calculate. As such, we will defer further testing at this time. Plan: [x] UA/UCx, UPC- ordered, normal [x] Start ASA 81 mg for preeclampsia prevention Family history of spina bifida 10/04/2023 Overview (12/13/2023): Ms. Singh's sister was determined to have a genetic etiology, and she is s/p counseling in her last . S/p normal anatomy Chronic migraine without aur a without status migrainosus, not intractable 02/09/2022 Acute sinusitis 07/16/2021 Facial swelling 08/08/2019 Loss of hair 06/25/2019 Iron deficiency 11/19/2018 Migraine 11/19/2018 Astigmatism 09/18/2018 [id number] spots 09/18/2018 Vitamin D deficiency 09/18/2018 Chronic daily headache 12/16/2016 Overview (07/16/2021): Last Assessment & Plan: Chronic daily headaches worsened by some lifestyle issues such as poor sleep which may have worsened after iron supplementation was stopped. So will check iron level today as noted below and likely restart supplementation. 1. Keep headache diary 2. Maintain active lifestyle - encourage regular physical activity. 3. Eat healthy diet, and do not skip meals - eat healthy diet. 4. Drink plenty of water, and avoid caffeine regularly. 5. Sleep: 1. Maintain good sleep routine. 2. Avoid distractions at bedtime such as TV, computer. 3. Get at least 8-10 hours of sleep nightly 4. Check ferritin level today 6. Do not use pain medication (such as Tylenol, Ibuprofen) more than 2-3 times/week in order to avoid medication overuse headaches 7. Use Excedrin for moderate-severe headaches only. 8. Continue with Topamax 50 mg at bedtime. Take regularly and as prescribed. Anticipate weaning off the med after school lets out for summer. 9. Call in the interim with update regarding headaches, or for concerns Resolved Problems Problem Noted Date Diagnosed Date Resolved Date Elevated blood pressure read ing without diagnosis of hypertension 12/13/2023 04/18/2024 Overview (03/13/2024): Reports checking a blood pressure once in the last week that was 140/90. The cuff has not been validated and she did not repeat the reading. Discussed importance of accurate BP monitoring. Instructions reviewed for how to check a blood pressure. Attempted to validate a cuff in the office but unable to. Plan for regular visits to monitor Bps. Pt knows to call with symptoms of preE or present to PVT anytime for evaluation. No current diagnosis. Plan for close monitoring. headache in second trimester 12/13/2023 04/18/2024 Overview (12/13/2023): Pt with a long history of headaches. Previously on Topamax 50 mg at bedtime. Current regimen: 12/13/2023 Magnesium, will add riboflavin Compazine PRN Plan: PreE precautions reviewed Good hydration and regular meals Caffeine prn Rh negative state in antepartum period 10/04/2023 04/18/2024 Maternal varicella, non-immune 10/04/2023 04/18/2024 Obesity complicating pregnan cy in first trimester 10/04/2023 04/18/2024 Overview (03/12/2024): Pre- BMI: 50 Previously counseled Plan: [x] [...] Weekly testing at 34 weeks (BMI >/=40) GBS (group b Streptococcus) UTI complicating , first trimester 10/04/2023 04/18/2024 Supervision of high-risk pre gnancy, first trimester 10/04/2023 04/18/2024 Overview (03/27/2024): [x] Full MFM Care as of 12/13/2023 [x] [employer] email sent 12/12 Referring Provider: Janett Robles [phone] [] or Medicare Insurance [x] Dating Criteria: [...] makes. She is considering exclusively pumping. 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 The risk of PPH increases to 18% (baseline 1-3% risk) in a first after initial PPH and 27% with 2 consecutive pregnancies with PPH. We recommend aggressive treatment of antepartum anemia, and consideration of 2 large bore PIVs and crossing for blood at time of delivery. state 07/19/2021 08/26/2021 Overview (07/21/2021): # ID: Afebrile. No signs/symptoms of infection. #COVID-19: Negative #Rubella/varicella NI: MMR and varivax ordered, not given due to Rhogam administration (see below) # Heme: EBL 900 mL, QBL 1639 mL. Hb 11.4->10.3 PPD#1. No symptoms acute blood loss anemia. # Rh neg: Rhogam evaluation completed PP, Rhogam given 07/20. Due to Rhogam administration, pt not recommended for Varivax/MMR vaccines for 2-4 weeks. Pt informed. # CV/Pulm: Vital signs stable, within normal limits except single MR BP prior to delivery not yet meeting criteria for gHTN. # GI/: Tolerating PO. Voiding spontaneously. # Pain: Controlled with above regimen. # Post DVT prophylaxis: The patient has the following MAJOR risk factors BMI >/= 40 and the following MINOR risk factors none. enoxaparin 40 mg BID ordered for VTE prophylaxis. # MOC: unable to place hormonal IUD at time of delivery d/t excessive vaginal bleeding requiring uterotonics; for rediscussion of BCM prior to discharge # MOF: # COVID Vaccination Status: accepts, ordered # Disposition: Follow up task sent to [facility] scheduling pool. Continue routine care. Pt prefers discharge today if baby is cleared by peds. Urinary tract infectious disease 07/16/2021 10/04/2023 Elevated blood pressure affe cting , antepartum 05/17/2021 10/04/2023 Overview (06/16/2021): - BP 143/81 on arrival at EOB, 119/80 on recheck - PreE labs wnl 05/17/21, UPC wnl - All BP subsequently normal at EOB appts Plan: [] CTM BP closely Family history of neural tube defect 02/09/2021 08/26/2021 Overview (06/23/2021): - Sister with spina bifida, no other family members with NTD - Per [facility], may have slightly elevated risk of NTD - Patient is taking folate in PNV, no extra supplementation - Patient states her sister had a genetic test at age 11 that was significant for a deletion from chromosome 8 - Pedigree completed w/ [facility], low concern for heritable mutation - AFP at 16w low risk for NTD, LR quad - No e/o ONTD on specialized anatomy Plan: [] Continue 1mg folate supplementation until delivery and prior to subsequent pregnancies Rh negative state in antepartum period 02/08/2021 08/26/2021 Overview (05/17/2021): For 28w Rhogam (given 05/17/21) 11/17/2020 10/04/2023 Overview (07/16/2021): First Trimester: [x] Dating Criteria: 1 [x] Labs: O- Ab neg, HIV neg HepB neg RPR NR Rub NI VZV NI [x] Genetic Screening: Quad screen (15-18 wks) wnl, CF neg [x] Hgb electrophoresis: AA [x] GC/CT/Tr: Neg/neg/neg UCx: neg [x] Pap: LSIL 06/2020 [x] PNBHS referral: Not indicated [x] ASA at 12 weeks: Not indicated [x] Early 1h GTT (if BMI>30): A1c 4.6 [x] COVID vaccine: counseled 02/09/21 Second Trimester: [x] Anatomy ultrasound: WNL, girl, anterior placenta [x] Placenta Location: Anterior [x] CBC Hg 11.7 [x] 1hr gtt at 24-28wks: 91 [] Flu Shot (Feb-Apr) [x] Tdap (27-36wks): given 05/18/21 [x] Rhogam (if Rh neg): given 05/17/21 Third Trimester: [x] CBC/HIV/RPR/T&S wnl 05/17/21 [x] GBS POS for PCN [x] GC/CT (if indicated) neg Counseling [x] Method of delivery: Ant vaginal [x] Method of contraception: Post-placental hIUD [x] Method of feeding: Plans breast [] Scrap Metal Collector: [] Car seat: [] PP Depression Counseling [x] Attg visits (11/08) Closed nondisplaced fracture of medial cuneiform of right foot 06/03/2019 10/04/2023 Obesity 12/16/2016 08/26/2021 Overview (07/16/2021): - BMI 38 - A1c 03/2020 4.6 - GTT 91 - 3T growth 40% Plan: [] Routine PNC Encounters Date Type Department Care Team Description 04/24/2024 Telephone Obstetrics and Gynecology Clinic [address] [place] [address] 3rd Floor [address] [place] [address] Magui Vail 04/18/2024 11:55 AM DOCK ASSOCIATE Lab [address] [address] Encounter for routine follow-up 04/18/2024 11:20 AM DOCK ASSOCIATE Office Visit [facility] [address] [place] [address] 7th Floor [address] [place] [address] Encounter for routine follow-up (Primary Dx) 04/03/2024 4:20 AM DOCK ASSOCIATE Anesthesia Event [address] [phone] Jese Espinoza MD Ukeje, Chideraa Cynthia, MD 04/02/2024 10:51 PM DOCK ASSOCIATE - 04/04/2024 2:57 PM DOCK ASSOCIATE Hospital Encounter [address] [address] Garret Victor MD Zofkie, Amanda Christine, MD Bligard, Geeta Arriaga MD Encounter for induction of labor (Primary Dx) Discharge Disposition: Discharge to home or self care 04/01/[address] [address] Cassi French RN Scheduled Induction 03/27/2024 10:30 AM DOCK ASSOCIATE Clinical Support [facility] Obstetrics and Gynecology [address] [place] [phone] Obesity affecting , antepartum, unspecified obesity type (Primary Dx) 03/27/2024 10:00 AM DOCK ASSOCIATE Office Visit [facility] Maternal- Medicine [address] [place] [address] Floor [address] [place] [phone] Elevated blood pressure reading without diagnosis of hypertension (Primary Dx); Family history of spina bifida; History of hemorrhage, currently in first trimester; Obesity affecting in first trimester, unspecified obesity type; headache in second trimester; Proteinuria complicating in first trimester; Supervision of high-risk , first trimester 03/27/2024 9:08 AM DOCK ASSOCIATE - 03/27/2024 11:59 PM DOCK ASSOCIATE Hospital Encounter [facility] Outpatient [facility] - Ultrasound [address] [place] [address], [address] [place] [address] Obesity affecting in first trimester, unspecified obesity type (Primary Dx) Discharge Disposition: Discharge to home or self care 03/23/2024 11:11 AM DOCK ASSOCIATE - 03/23/2024 1:21 PM DOCK ASSOCIATE Hospital Encounter [address] [address] Garret Victor MD Meka, Raina Advani, MD Huysman, Bridget C., MD Discharge Disposition: Discharge to home or self care 03/20/2024 10:40 AM DOCK ASSOCIATE Office Visit [facility] Maternal- Medicine [address] [place] [address] Floor [address] [place] [phone] Elevated blood pressure reading without diagnosis of hypertension (Primary Dx); Family history of spina bifida; History of hemorrhage, currently in first trimester; Obesity affecting in first trimester, unspecified obesity type; headache in second trimester; Supervision of high-risk , first trimester 03/20/2024 9:30 AM DOCK ASSOCIATE Clinical Support [facility] Obstetrics and Gynecology [address] [place] [address] [place] [phone] Obesity affecting , antepartum, unspecified obesity type (Primary Dx) 03/13/2024 11:36 AM DOCK ASSOCIATE - 03/13/2024 2:22 PM DOCK ASSOCIATE Hospital Encounter [address] [address] Garret Victor MD Dombrowski, Michael McKinley, MD Discharge Disposition: Discharge to home or self care 03/13/2024 10:34 AM DOCK ASSOCIATE - 03/13/2024 11:59 PM DOCK ASSOCIATE Hospital Encounter [address] [address] Supervision of high-risk , first trimester Discharge Disposition: Discharge to home or self care 03/13/2024 10:00 AM DOCK ASSOCIATE Office Visit [facility] [address] [place] [address] [place] [phone] Elevated blood pressure reading without diagnosis of hypertension (Primary Dx); Family history of spina bifida; History of hemorrhage, currently in first trimester; Obesity affecting in first trimester, unspecified obesity type; headache in second trimester; Proteinuria complicating in first trimester; Supervision of high-risk , first trimester 03/13/2024 9:30 AM DOCK ASSOCIATE Clinical Support [facility] Obstetrics and Gynecology [address] [place] [address] [place] [phone] Obesity affecting , antepartum, unspecified obesity type (Primary Dx) 03/06/2024 9:30 AM CDT Clinical Support [facility] Obstetrics and Gynecology [address] [place] [address] [place] [phone] Obesity affecting , antepartum, unspecified obesity type (Primary Dx) 02/28/2024 11:05 AM CDT Lab [facility] Health [address] [place] [address] [place] [address] Supervision of high-risk , first trimester 02/28/2024 10:45 AM CDT Office Visit [facility] Maternal- Medicine [address] [place] [address] 7th [address] [place] [phone] Elevated blood pressure reading without diagnosis of hypertension (Primary Dx); Family history of spina bifida; History of hemorrhage, currently in first trimester; Obesity affecting in first trimester, unspecified obesity type; headache in second trimester; Proteinuria complicating in first trimester; Supervision of high-risk , first trimester 02/28/2024 9:59 AM CDT - 02/28/2024 11:59 PM CDT Hospital Encounter [facility] Outpatient [facility] - Ultrasound [address] [place] [address], [address] [place] [address], [address] [place], [place] [phone] Other obesity affecting in third trimester (Primary Dx) Discharge Disposition: Discharge to home or self care 02/28/2024 Orders Only [facility] Maternal- Medicine [place] [id number] [facility] [address] [place] [phone] Nelsy Fuller 02/14/2024 9:15 AM CDT Office Visit [facility] Maternal- Medicine [address] [place] [address] 7th Floor [address] [place] [phone] Elevated blood pressure reading without diagnosis of hypertension (Primary Dx); Family history of spina bifida; History of hemorrhage, currently in first trimester; Obesity affecting in first trimester, unspecified obesity type; headache in second trimester; Proteinuria complicating in first trimester; Supervision of high-risk , first trimester 02/14/2024 Orders Only [facility] Maternal- Medicine [address] [place] [address] 7th Floor [address] [place] [phone] Breanna Quijano RN from Last 3 Months Immunizations Name Administration Dates Next Due DTaP 12/17/2004, 1,1999,06/24,1999 H1N1 Nasal 07/09/2009 HPV, Quadrivalent 12/19/2013 HPV, Unspecified 12/19/2013,04/04/2012, 2 Hep A, Pediatric 12/15/2010,07/09/2009 Hep B, Adolescent or Pediatric 02/09/2001,1999,1999 HiB 02/09/2001, 0,1999,04/26 IPV 12/17/2004, 1,1999,04/26 Influenza LAIV (Nasal) 02/28/2014,05/07/2013 Influenza, Live, Intranasal, Quadrivalent 02/28/2014,05/07/2013 Influenza, Quadrivalent, Spl it, Intramuscular 05/27/2020 Influenza, Quadrivalent, Spl it, Preservative Free, Intramuscular 07/21/2021,06/25/2019,01/22/2019 Influenza, Trivalent, Cell Culture-based MDCK, Preservative Free, Antibiotic Free, Intramuscular 01/31/2024 Influenza, Trivalent, IM (MDV) 01/19/2011 Influenza, Unspecified 02/28/2014,05/07/2013, MMR 07/21/2021,12/17/2004,02/22/2000 Meningococcal B, OMV (Bexsero) 11/24/2017,2017 Meningococcal Conjugate (Menveo) 07/29/2016 Meningococcal MCV4, Unspecified 12/15/2010 Pfizer SARS-CoV-2 Monovalent Vaccination (12+ Yrs) PABON-READY TO USE 07/21/2021 Tdap 01/17/2024, 2,06/25/2019,07/09 Varicella 07/21/2021(Deferred: Other - will get at follow up appointment),07/09/2009,02/22/2000 Surgical History Surgery Date Site/Laterality Comments TONSILLECTOMY/ADENOIDECTOMY Bilateral CYST REMOVAL Medical History Medical History Date Comments Hx Other Medical T&A in 2011; Co mments: MIRANDA 05/20/2014 - Hx Other Medical elbow fracture 02-06-15.; Comments: MIRANDA 02/09/2015 - Closed nondisplaced fracture of medial cuneiform of right foot 06/03/2019 Migraine Elevated blood pressure affe cting , antepartum 05/17/2021 - BP 143/81 on arrival at EO B, 119/80 on recheck - PreE labs wnl 05/17/21, UPC wnl - All BP subsequently normal at EOB appts ?? Plan: [] CTM BP closely Supervision of high-risk pre gnancy, first trimester 10/04/2023 Obesity Family History Medical History Relation Name Comments Hypertension Father Hypertension; Other Mother Alive and well at age 44.; Relation Name Status Comments Father Mother Social History Tobacco Use Types Packs/Day Years Used Date Smoking Tobacco: Never Smokeless Tobacco: Never Tobacco Cessation:Counseling Given: Not Answered Alcohol Use Standard Drinks/Week Comments No 0 (1 standard drink = 0.6 oz pur e alcohol) [facility] [employer] Answer Date Recorded In the past 12 [...] often do you attend chur ch or bahai services? Never 04/04/2024 Do you belong to any clubs o r organizations such as latter-day groups, unions, fraternal or athletic groups, or [...] place to sleep or slept in a usp (including now)? No 07/21/2021 [place] Depression Scale Answer Date Recorded [place] Depression Scale Total 4 04/18/2024 The thought [...] any time in the past 12 m [facility], were you homeless or living in a usp (including now)? No 04/04/2024 Personal Safety Answer Date Recorded Have you ever been in or are you currently in a harmful physical or emotional relationship or is someone making you feel afraid or unsafe? Denies 04/03/2024 Comments No Sex and Gender Information Value Date Recorded Sex Assigned at Not on file Legal Sex Female 11:28 PM DOCK ASSOCIATE Gender Identity Not on file Sexual Orientation Not on file Obstetrics History Para Term AB IAB SAB Ectopic Multiple Livin g Live Births 2 2 2 0 0 0 0 0 0 2 2 Date Outcome GA Total Labor Labor/2nd/3rd Weight Sex Type Anes PTL Maria D A1 A5 Name Clin 2021 Term 39w 1d 1h 06m 1h 01m/0h 05m 3.15 kg (6 lb 15.1 oz) F Vag-Sp ont Epidur al N Livin g 8 9 [place], GIRLT Amanda Linares MD Complications:Post He morrhage Delivery Location:[facility] Main C ampus ([facility]) 2023 Term 39w 0d 11h 01m 10h 40m/0h 14m/0h 07m 3.54 kg (7 lb 12.9 oz) M Vagina l Epidur al Y Livin g 8 9 [place] Triston Chanduo l Leonor rd, Usha balderrama MD Complications:None Delivery Location:[facility] Main C ampus ([facility]) Last Filed Vital Signs Vital Sign Reading Time Taken Comments Blood Pressure 112/70 04/18/2024 11:27 AM DOCK ASSOCIATE Pulse 69 04/18/2024 11:27 AM DOCK ASSOCIATE Temperature 36.5 ??C (97.7 ??F) 04/04/2024 7:39 AM CS T Respiratory Rate 16 04/04/2024 7:39 AM DOCK ASSOCIATE Oxygen Saturation 98% 04/18/2024 11: 27 AM DOCK ASSOCIATE Inhaled Oxygen Concentration - - Weight 138.9 kg (306 lb 3.2 oz) 024 11:27 AM DOCK ASSOCIATE Height 165.1 cm (5' 5 ) 04/18/2024 11:2 7 AM DOCK ASSOCIATE Body Mass Index 50.95 04/18/2024 11:27 AM DOCK ASSOCIATE Plan of Treatment Health Maintenance Due Date Last Done Comments Cervical Cancer Screening 1999 Regular Well Visit/Exam 18-64 2017 Covid-19 Vaccine ( season) 2024 07/21/2021 Depression Screening 04/18/2025 04/18/2024 DTaP/Tdap/Td Vaccine (10 - Td or Tdap) 01/16/2034 01/17/2024, 05/17/2021, 06/25/2019, Additional history exists Varicella Vaccines Completed 07/09/2009, 02/22/2000 HPV Vaccines Completed 12/19/2013, 12/06, 04/04/2012, Additional history exists Hepatitis C Screening Completed 09/18/2023 Influenza Vaccine Completed 01/31/2024, , 05/27/2020, Additional history exists Pneumococcal vaccine <65 Aged Out No longer eligible based on patient's age to complete this topic Procedures Procedure Name Priority Date/Time Associated Diagnosis Comments CBC WITHOUT DIFFERENTIAL Routine 04/18/2024 12:08 PM DOCK ASSOCIATE Encounter for routine follow-up FERRITIN Routine 04/18/2024 12:08 PM DOCK ASSOCIATE Encounter for routine follow-up BLEED SCREEN Timed 04/04/2024 6: 01 AM DOCK ASSOCIATE ABO/RH Timed 04/04/2024 6:01 AM DOCK ASSOCIATE RH IMMUNE GLOBULIN EVAL Timed 04/04/2024 6:01 AM DOCK ASSOCIATE US OB LIMITED IP Routine 04/03/2024 7:59 AM DOCK ASSOCIATE Encounter for induction of labor ANESTHESIA EPIDURAL BLOCK Routine 04/03/2024 5:15 AM DOCK ASSOCIATE EGFR STAT 04/02/2024 11:32 PM DOCK ASSOCIATE COMPREHENSIVE METABOLIC PANEL STAT 04/02/2024 11:32 PM DOCK ASSOCIATE CBC WITHOUT DIFFERENTIAL STAT 04/02/2024 11:32 PM DOCK ASSOCIATE TYPE AND SCREEN STAT 04/02/2024 11:32 PM DOCK ASSOCIATE RPR STAT 04/02/2024 11:32 PM DOCK ASSOCIATE NONSTRESS TEST Routine 03/27/2024 11:18 AM DOCK ASSOCIATE Obesity affecting , antepartum, unspecified obesity type US OB FOLLOW UP Schedule Routine, Read Routine (OP Routine) 03/27/2024 9:15 AM DOCK ASSOCIATE Obesity affecting in first trimester, unspecified obesity type POCT URINALYSIS (CLINITEK) Routine 03/23/2024 12:07 PM DOCK ASSOCIATE NONSTRESS TEST Routine 03/20/2024 10:48 AM DOCK ASSOCIATE Obesity affecting , antepartum, unspecified obesity type ANTIBODY IDENTIFICATION STAT 03/13/2024 2:58 PM DOCK ASSOCIATE GROUP B STREPTOCOCCUS CULTURE Routine 03/13/2024 1:33 PM DOCK ASSOCIATE Supervision of high-risk , first trimester EGFR STAT 03/13/2024 12:13 PM DOCK ASSOCIATE CBC WITHOUT DIFFERENTIAL STAT 03/13/2024 12:13 PM DOCK ASSOCIATE COMPREHENSIVE METABOLIC PANEL STAT 03/13/2024 12:13 PM DOCK ASSOCIATE TYPE AND SCREEN STAT 03/13/2024 12:13 PM DOCK ASSOCIATE URIC ACID STAT 03/13/2024 12:13 PM DOCK ASSOCIATE PROTEIN / CREATININE RATIO, URINE, RANDOM STAT 03/13/2024 12:13 PM DOCK ASSOCIATE POCT URINALYSIS (CLINITEK) Routine 03/13/2024 11:56 AM DOCK ASSOCIATE NONSTRESS TEST Routine 03/13/2024 10:21 AM DOCK ASSOCIATE Obesity affecting , antepartum, unspecified obesity type NONSTRESS TEST Routine 03/06/2024 10:24 AM CDT Obesity affecting , antepartum, unspecified obesity type CBC WITHOUT DIFFERENTIAL Routine 02/28/2024 11:14 AM CDT Supervision of high-risk , first trimester HIV 1/2 ANTIBODY PLUS P24 ANTIGEN Routine 02/28/2024 11:14 AM CDT Supervision of high-risk , first trimester RPR Routine 02/28/2024 11:14 AM CDT Supervision of high-risk , first trimester OB FOLLOW UP Schedule Routine, Read Routine (OP Routine) 02/28/2024 10:02 AM CDT Other obesity affecting in third trimester HEPATITIS C ANTIBODY Routine 09/18/2023 from Last 3 Months or Most Recently Relevant to Health Maintenance Results * CBC without differential (04/18/2024 12:08 PM DOCK ASSOCIATE) [facility] WBC 7.0 3.8 - 9.9 K/cumm Hgb 14.4 11.9 - 15.5 g/dL [facility] Hct 44.4 35.6 - 45.5 % [facility] Plt 324 150 - 400 K/cumm [facility] MPV 10.2 9.1 - 12.3 fL [facility] RBC 4.87 3.90 - 5.20 M/cumm [facility] MCV 91.2 81.3 - 96.4 fL [facility] MCH 29.6 27.1 - 33.3 pg [facility] MCHC 32.4 32.3 - 35.7 g/dL [facility] RDW CV 12.8 11.1 - 14.9 % [facility] RDW SD 43.2 35.7 - 48.1 fL [facility] NRBC abs 0.00 0.00 - 0.01 K/cumm [facility] Blood 04/18/2024 12:0 8 PM DOCK ASSOCIATE 04/18/2024 2:29 PM DOCK ASSOCIATE us Janeth Zacarias NP LAB BLOOD ORDERABLE S Final Result [facility] Department [place] [address] * Ferritin (04/18/2024 12:08 PM DOCK ASSOCIATE) [facility] Ferritin See Comment 13 - 150 ng/mL Comment:Credited; Hemolyzed Specimen Blood 04/18/2024 12:0 8 PM DOCK ASSOCIATE 04/18/2024 2:29 PM DOCK ASSOCIATE Janeth Zacarias NP LAB BLOOD ORDERABLE S Final Result Performing Organization Address [facility] Co de Phone Number [facility] [place] [address] * Rh Immune Globulin Eval (04/04/2024 6:01 AM DOCK ASSOCIATE) RhIg Administration 1 vial of Rh Immune Globulin (300 mcg dose) RhIg Eligible Yes, eligible [facility] Blood 04/04/2024 6:01 AM DOCK ASSOCIATE 04/04/2024 6:12 AM DOCK ASSOCIATE Narrative [facility] - 04/04/2024 6:25 AM DOCK ASSOCIATE Number of weeks ?->20 weeks or greater antibody screen result:->Negative Rhogam given?->Given Date Given?->01/17/24 Number of vials requested:->1 Noemi Collins MD LAB BLOOD BANK TEST ORDERABLES Final Result Performing Organization Address [facility]/[place] [address] * Bleed Screen (04/04/2024 6:01 AM DOCK ASSOCIATE) Pathologist [facility] Bleed Screen Negative Blood 04/04/2024 6:01 AM DOCK ASSOCIATE 04/04/2024 6:12 AM DOCK ASSOCIATE Noemi Collins MD LAB BLOOD BANK [place] [address] * ABO/Rh (04/04/2024 6:01 AM DOCK ASSOCIATE) ABO Rh O Negative Blood 04/04/2024 6:01 AM DOCK ASSOCIATE 04/04/2024 6:12 AM DOCK ASSOCIATE us Noemi Collins MD LAB BLOOD BANK TEST ORDERABLES Final Result [facility] Department [place] [address] * US Ob Limited (04/03/2024 7:59 AM DOCK ASSOCIATE) Anatomical Region Laterality Modality Abdomen N/A Ultrasound Narrative 04/03/2024 7:59 AM DOCK ASSOCIATE Vertex I have reviewed the images and agree with above. Noemi Collins MD us Noemi Collins MD IMG OB US PROCEDURES Final Result * Epidural Block (04/03/2024 5:15 AM DOCK ASSOCIATE) Narrative Kash Garcia MD - 04/03/2024 5:15 AM DOCK ASSOCIATE Kash Garcia MD ? 04/03/2024 ??5:16 AM [...] column of blood and test dose negative. us Taylor Finley MD ANESTHESIA ORDERABLES Dilcia l Result * eGFR (04/02/2024 11:32 PM DOCK ASSOCIATE) Pathologist [facility] eGFR >90 >=60 [...] of Race in Diagnosing Kidney Disease, JASN 202). The CKD-EPI equation should not be used for patients with unstable renal function and has not been validated in children and those over 70. Current interpretive data was last reviewed 2021. Blood 04/02/2024 11:3 2 PM DOCK ASSOCIATE 04/02/2024 11:45 PM DOCK ASSOCIATE us Sudha Abarca MD LAB BLOOD ORDERABLES Final Result [facility] Department [place] [address] * RPR Blood (04/02/2024 11:32 PM DOCK ASSOCIATE) Pathologist [facility] RPR Nonreactive Nonreactive Blood 04/02/2024 11:3 2 PM DOCK ASSOCIATE 04/02/2024 11:45 PM DOCK ASSOCIATE Sudha Abarca MD LAB MICROBIOLOGY - GE NERAL ORDERABLES Final Result Performing Organization Address City/[facility]/ZIP Co de Phone Number [facility] Department [place] [address] * (ABNORMAL) CBC without differential (04/02/2024 11:32 PM DOCK ASSOCIATE) [facility] WBC 9.1 3.8 - 9.9 K/cumm Hgb 11.8(L) 11.9 - 15.5 g/dL [facility] Hct 34.8(L) 35.6 - 45.5 % [facility] Plt 228 150 - 400 K/cumm [facility] MPV 10.1 9.1 - 12.3 fL [facility] RBC 3.87(L) 3.90 - 5.20 M/cumm [facility] MCV 89.9 81.3 - 96.4 fL [facility] MCH 30.5 27.1 - 33.3 pg [facility] MCHC 33.9 32.3 - 35.7 g/dL [facility] RDW CV 13.5 11.1 - 14.9 % [facility] RDW SD 44.2 35.7 - 48.1 fL [facility] NRBC abs 0.00 0.00 - 0.01 K/cumm [facility] Blood 04/02/2024 11:3 2 PM DOCK ASSOCIATE 04/02/2024 11:45 PM DOCK ASSOCIATE Sudha Abarca MD LAB BLOOD ORDERABLES Final Result [facility] Department [place] [address] * Type and screen (04/02/2024 11:32 PM DOCK ASSOCIATE) [facility] Jorge, indirect Negative Comment:Patient has previous antibody history ABO Rh O Negative [facility] Blood 04/02/2024 11:3 2 PM DOCK ASSOCIATE 04/03/2024 12:12 AM DOCK ASSOCIATE Narrative [facility] - 04/03/2024 1:19 AM DOCK ASSOCIATE Has the patient had Daratumumab or Isatuximab in the past 6 months?->Unknown Sudha Abarca MD LAB BLOOD BANK TEST O RDERABLES Final Result [facility] Department [place] [address] * (ABNORMAL) Comprehensive metabolic panel (04/02/2024 11:32 PM DOCK ASSOCIATE) Pathologist [facility] Sodium 138 135 - 145 mmol/L Potassium, pl 4.0 3.3 - 4.9 mmol/L [facility] Chloride 106 97 - 110 mmol/L [facility] CO2 22 22 - 32 mmol/L [facility] Anion gap 10 2 - 15 mmol/L [facility] BUN 6 6 - 25 mg/dL [facility] Creatinine 0.54(L) 0.60 - 1.10 mg/dL [facility] Glucose 103 70 - 199 mg/dL [facility] Comment: Interpretive Data Fasting glucose >/= 126 [...] classification and Diagnosis of Diabetes Diabetes Care 202; 46: S19-S40. Current interpretive data was last revised 2022. Calcium 9.3 8.5 - 10.3 mg/dL [facility] Bilirubin, total 0.3 0.1 - 1.2 mg/dL [facility] Protein, pl 6.6 6.5 - 8.5 g/dL [facility] Albumin 3.6 3.5 - 5.0 g/dL [facility] Alk phos 110 40 - 130 Units/L [facility] ALT 21 7 - 45 Units/L [facility] AST 26 10 - 45 Units/L [facility] Blood 04/02/2024 11:3 2 PM DOCK ASSOCIATE 04/02/2024 11:45 PM DOCK ASSOCIATE Sudha Abarca MD LAB BLOOD ORDERABLES Final Result [facility] Department [place] [address] * nonstress test - (03/27/2024 11:18 AM DOCK ASSOCIATE) Janeth Zacarias NP OB GYNE ORDERABLES Final Result * US Ob Follow Up (03/27/2024 9:15 AM DOCK ASSOCIATE) Fetus# Fetus1 VIEWPOINT Estimated Weight 3,274 g&grams VIEWPOINT Placenta Details posterior, Previa-no, no placental masses VIEWPOINT Presentation Vertex VIEWPOINT Anatomical Region Laterality Modality Abdomen N/A Ultrasound 03/27/2024 9:16 AM DOCK ASSOCIATE Impressions 03/27/2024 5:08 PM DOCK ASSOCIATE IUP at 38w 0d who presents for growth assessment. ??1. Vertex presentation. ??2. The interval growth has been appropriate. The EFW plots at the 54%ile. 3. The amniotic fluid volume is normal. ?? Narrative Procedure Note Geeta Zhang MD - 03/27/2024 IMPRESSION: IUP at 38w 0d who presents for growth assessment. 1. Vertexpresentation. 2. The interval growth has been appropriate. The EFWplots at the 54%ile. 3. The amniotic fluid volume is normal. us Janeth Zacarias KNOCK OUT HAND IMG OB US PROCEDURE S Final Result * POCT urinalysis (Clinitek) (03/23/2024 12:07 PM DOCK ASSOCIATE) Color, ur, POC Yellow Yellow Clarity, UA, POC Clear Clear [facility] Glucose, ur, POC Negative Negative [facility] Bilirubin, ur, POC Negative Negative [facility] Ketones, ur, POC Negative Negative [facility] Specific gravity, ur, POC 1.020 1.010 - 1.025 [facility] Blood, ur, POC Negative Negative [facility] pH, ur, POC 7.5 [facility] Comment: Interpretive Data Urine pH is affected by diet, medications, systemic acid-base disturbances, and renal tubular function. pH may affect urinary stone formation. For example, urine pH below 6.0 may help reduce the tendency for calcium phosphate stones and pH greater than 6.0 may reduce the tendency for uric acid stone formation. Source: [employer]. Last Revised Date: 05-18-2017 Protein, ur, POC Negative Negative [facility] Urobilinogen, ur, POC 0.2 mg/dL mg/dL [facility] Nitrites, ur, POC Negative Negative [facility] Leukocyte esterase, ur, POC Negative Negative [facility] Urine 03/23/2024 12:0 7 PM DOCK ASSOCIATE 03/23/2024 12:07 PM DOCK ASSOCIATE Emily Munguia MD LAB POCT ORDERABLES - DEVIC E Final Result [facility] Department [place] [address] * nonstress test - (03/20/2024 10:48 AM DOCK ASSOCIATE) us Janeth Zacarias KNOCK OUT HAND OB GYNE ORDERABLES Final Result * Antibody identification (03/13/2024 2:58 PM DOCK ASSOCIATE) Antibody ID 1 Passive Anti-D Blood 03/13/2024 2:58 PM DOCK ASSOCIATE 03/13/2024 2:58 PM DOCK ASSOCIATE Jennifer Chamberlain KNOCK OUT HAND LAB BLOOD BANK TEST ORDE MACRINA Final Result Performing Organization Address [facility] Co de Phone Number [facility] Department [place] [address] * (ABNORMAL) Group B streptococcal culture Vaginal/Rectal (03/13/2024 1:33 PM DOCK ASSOCIATE) Report Final Report: Streptococcus agalactiae (Group B [...] allergic patients, please contact the laboratory at [phone] to request susceptibility testing * ??* ??* ??* ??* ??* ??* ??* ??* ??* ??* ??* ??* ??* ??* ??* ??* ??* ??* ??* (.) Organism STREPTOCOCCUS AGALACTIAE (GROUP B STREPTOCOCCI) [facility] Vaginal/Rectal 03/13/2024 1: 33 PM DOCK ASSOCIATE 03/13/2024 2:20 PM DOCK ASSOCIATE Narrative [facility] - 03/15/2024 1:08 PM DOCK ASSOCIATE Testing performed by [facility] ([phone]). Janeth Zacarias KNOCK OUT HAND LAB MICROBIOLOGY - GENERAL ORDERABLES Final Result Performing Organization Address [facility] Co de Phone Number [facility] Department [place] [address] * eGFR (03/13/2024 12:13 PM DOCK ASSOCIATE) eGFR >90 >=60 mL/min/1. 73 m2 Comment: [...] reviewed 2021. Blood 03/13/2024 12:1 3 PM DOCK ASSOCIATE 03/13/2024 12:50 PM DOCK ASSOCIATE Jennifer Chamberlain NP LAB BLOOD ORDERABLES Fin al Result [facility] Department [place] [address] * Protein / creatinine ratio, urine, random (03/13/2024 12:13 PM DOCK ASSOCIATE) Protein, ur, quant 6.6 mg/dL Comment: Interpretive Data No reference range established. Current interpretive data was last revised 2018. Creatinine Ur 46.1 mg/dL [facility] Comment: Interpretive Data No reference range established. Current interpretive data was last revised 2018. Protein/creatinin e ratio 143.2 0.0 - 180.0 mg/g CR [facility] Urine 03/13/2024 12:1 3 PM DOCK ASSOCIATE 03/13/2024 12:50 PM DOCK ASSOCIATE Jennifer Chamberlain KNOCK OUT HAND LAB URINE ORDERABLES Fin al Result Performing Organization Address [facility]/ZIP Co de Phone Number [facility] Department [place] [address] * (ABNORMAL) CBC without differential (03/13/2024 12:13 PM DOCK ASSOCIATE) WBC 7.5 3.8 - 9.9 K/cumm Hgb 11.8(L) 11.9 - 15.5 g/dL [facility] Hct 35.2(L) 35.6 - 45.5 % [facility] Plt 255 150 - 400 K/cumm [facility] MPV 9.9 9.1 - 12.3 fL [facility] RBC 3.93 3.90 - 5.20 M/cumm [facility] MCV 89.6 81.3 - 96.4 fL [facility] MCH 30.0 27.1 - 33.3 pg [facility] MCHC 33.5 32.3 - 35.7 g/dL [facility] RDW CV 13.2 11.1 - 14.9 % [facility] RDW SD 43.9 35.7 - 48.1 fL [facility] NRBC abs 0.00 0.00 - 0.01 K/cumm [facility] Blood 03/13/2024 12:1 3 PM DOCK ASSOCIATE 03/13/2024 12:50 PM DOCK ASSOCIATE Jennifer Chamberlain KNOCK OUT HAND LAB BLOOD ORDERABLES Fin al Result [facility] Department [place] [address] * (ABNORMAL) Type and screen (03/13/2024 12:13 PM DOCK ASSOCIATE) Jorge, indirect Positive(A) ABO Rh O Negative [facility] Blood 03/13/2024 12:1 3 PM DOCK ASSOCIATE 03/13/2024 1:10 PM DOCK ASSOCIATE Narrative [facility] - 03/13/2024 2:58 PM DOCK ASSOCIATE Has the patient had Daratumumab or Isatuximab in the past 6 months?->Unknown Jennifer Chamberlain NP LAB BLOOD BANK TEST ORDE MACRINA Final Result Performing Organization Address [facility]/ZIP Co de Phone Number [facility] Department [place] [address] * Uric acid (03/13/2024 12:13 PM DOCK ASSOCIATE) [facility] Uric acid 3.3 2.5 - 7.0 mg/dL Blood 03/13/2024 12:1 3 PM DOCK ASSOCIATE 03/13/2024 12:50 PM DOCK ASSOCIATE Jennifer Chamberlain KNOCK OUT HAND LAB BLOOD ORDERABLES Fin al Result Performing Organization Address [facility] Co de Phone Number [facility] [place] [address] * (ABNORMAL) Comprehensive metabolic panel (03/13/2024 12:13 PM DOCK ASSOCIATE) [facility] Sodium 138 135 - 145 mmol/L Potassium, pl 4.1 3.3 - 4.9 mmol/L [facility] Chloride 103 97 - 110 mmol/L [facility] CO2 25 22 - 32 mmol/L [facility] Anion gap 10 2 - 15 mmol/L [facility] BUN 6 6 - 25 mg/dL [facility] Creatinine 0.46(L) 0.60 - 1.10 mg/dL [facility] Glucose 76 70 - 199 mg/dL [facility] Comment: Interpretive Data Fasting glucose >/= 126 [...] 2022. Calcium 9.5 8.5 - 10.3 mg/dL [facility] Bilirubin, total 0.3 0.1 - 1.2 mg/dL [facility] Protein, pl 6.9 6.5 - 8.5 g/dL [facility] Albumin 3.7 3.5 - 5.0 g/dL [facility] Alk phos 106 40 - 130 Units/L [facility] ALT 24 7 - 45 Units/L [facility] AST 19 10 - 45 Units/L [facility] Blood 03/13/2024 12:1 3 PM DOCK ASSOCIATE 03/13/2024 12:50 PM DOCK ASSOCIATE Jennifer Chamberlain KNOCK OUT HAND LAB BLOOD ORDERABLES [facility] al Result [facility] Department [place] [address] * POCT urinalysis (Clinitek) (03/13/2024 11:56 AM DOCK ASSOCIATE) Color, ur, POC Yellow Yellow Clarity, UA, POC Clear Clear [facility] Glucose, ur, POC Negative Negative [facility] Bilirubin, ur, POC Negative Negative [facility] Ketones, ur, POC Negative Negative [facility] Specific gravity, ur, POC 1.020 1.010 - 1.025 [facility] Blood, ur, POC Negative Negative [facility] pH, ur, POC 7.0 [facility] Comment: Interpretive Data Urine pH is affected by diet, medications, systemic acid-base disturbances, and renal tubular function. pH may affect urinary stone formation. For example, urine pH below 6.0 may help reduce the tendency for calcium phosphate stones and pH greater than 6.0 may reduce the tendency for uric acid stone formation. Source: [employer]. Last Revised Date: 05-18-2017 Protein, ur, POC Negative Negative [facility] Urobilinogen, ur, POC 0.2 mg/dL mg/dL [facility] Nitrites, ur, POC Negative Negative [facility] Leukocyte esterase, ur, POC Negative Negative [facility] Urine 03/13/2024 11:5 6 AM DOCK ASSOCIATE 03/13/2024 11:56 AM DOCK ASSOCIATE Mook Villanueva MD LAB POCT ORDERABL ES - DEVICE Final Result Performing Organization Address [facility] Co de Phone Number [facility] [place] [address] * nonstress test - (03/13/2024 10:21 AM DOCK ASSOCIATE) Janeth Zacarias NP OB GYNE ORDERABLES Final Result * nonstress test - (03/06/2024 10:24 AM CDT) Janeth Zacarias NP OB GYNE ORDERABLES Final Result * HIV 1/2 Antibody plus p24 Antigen [...] GENERAL ORDERABLES Final Result Performing Organization Address [facility] Co de Phone Number [facility] Department [place] [address] * RPR Blood (02/28/2024 11:14 AM CDT) RPR Nonreactive Nonreactive Blood 02/28/2024 11:1 4 AM CDT 02/28/2024 11:47 AM CDT Janeth Zacarias NP LAB MICROBIOLOGY - GENERAL ORDERABLES Final Result Performing Organization Address City/[facility] Co de Phone Number [facility] Department [place] [address] * CBC without differential (02/28/2024 11:14 AM CDT) [facility] WBC 8.4 3.8 - 9.9 K/cumm Hgb 12.1 11.9 - 15.5 g/dL [facility] Hct 35.8 35.6 - 45.5 % [facility] Plt 237 150 - 400 K/cumm [facility] MPV 9.9 9.1 - 12.3 fL [facility] RBC 3.91 3.90 - 5.20 M/cumm [facility] MCV 91.6 81.3 - 96.4 fL [facility] MCH 30.9 27.1 - 33.3 pg [facility] MCHC 33.8 32.3 - 35.7 g/dL [facility] RDW CV 13.4 11.1 - 14.9 % [facility] RDW SD 44.9 35.7 - 48.1 fL [facility] NRBC abs 0.00 0.00 - 0.01 K/cumm [facility] Blood 02/28/2024 11:1 4 AM CDT 02/28/2024 11:47 AM CDT Janeth Zacarias NP LAB BLOOD ORDERABLE S Final Result Performing Organization Address City/[facility]/ZIP Co de Phone Number [facility] [place] [address] * US Ob Follow Up (02/28/2024 10:02 AM CDT) Pathologist [facility] Fetus# Fetus1 VIEWPOINT Estimated Weight 2,491 g&grams [...] tone andamniotic fluid volume. us Janeth Zacarias KNOCK OUT HAND IMG OB US PROCEDURE S Final Result * Hepatitis C antibody Blood (09/18/2023) SCRIBED HCV ab non-reacti ve Blood us Janett Robles NP LAB MICROBIOLOGY - GENERAL O RDERABLES Final Result from Last 3 Months or Most Recently Relevant to Health Maintenance Insurance [facility] Member Subscriber Plan / Payer (Ef fective 2022-Present) Name:Mary Singh Relation to Subscriber:Self Name:Mary Singh Payer ID:[id number] (NAIC) Group ID:Not on file Type:MEDICAID RISK OTHER Address: ATTN: CLAIMS DEPT [place] [id number] [facility] CIG HEALTHC[employer] PPO [employer] PPO [facility] Advance Directives For more information, please contact: [phone] * Full Code (Latest Code Status on File) Date Activated Date Inactivated Comments 04/03/2024 7:35 PM 04/04/2024 6:57 PM * Full Code Date Activated Date Inactivated Comments 04/02/2024 11:30 PM 04/03/2024 7:35 PM Full CPR in case of cardiopulmonary arrest * Full Code Date Activated Date Inactivated Comments 07/20/2021 6:19 AM 07/21/2021 7:25 PM * Full Code Date Activated Date Inactivated Comments 07/19/2021 8:51 AM 07/20/2021 6:19 AM Full CPR in case of cardiopulmonary arrest * Full Code Date Activated Date Inactivated Comments 12/14/2019 1:28 PM 12/16/2019 8:31 PM Care Teams Steel Inspector Relationship Specialty Start Date End Date No, Physician PCP - General 12/03/23 Jarred Roy MD 2 [facility] [address] [address] 01/30/19 Elma Echevarria NP 2 [facility] [address] [address] Nurse Practitioner General Surgery 12/16/19
--- OUTSIDE RECORDS SUMMARY | 2024-05-10 20:15 | XMS_ITS | Encounter Summary ---
Author Organization [facility] Address [address] [place] [address] Phone Care Team Providers Care Clinical Faculty Name Role Phone Jarred Roy MD Unavailable [phone] Elma Echevarria NP Unavailable No, Physician Primary Care Provider [phone] Reason for Referral * (Routine) - Pending Review Specialty Diagnoses / Procedures Referred By Loyd medrano Referred To Contact Diagnoses Obesity affecting , antepartum, unspecified obesity type Procedures nonstress test - Janeth Zacarias NP [address] [facility] [id number] [place] [address] Phone: tel: fax: [facility] (All Locations) Referral ID Status Reason Start Date Expiration Date V isits Requested Visits Authorized [id number] Pending Review 03/06/2024 04/05/2025 1 1 Reason for Visit * Reason Comments Non-stress Test Encounter Details Date Type Department Care Team (Latest Contact Info) Description 03/06/2024 9:30 AM CDT Clinical Support [facility] Obstetrics and Gynecology [address] [facility] Outpatient Health 7th [place] [address] Obesity affecting , antepartum, unspecified obesity type [...] often do you attend chur ch or orthodoxy services? Never 07/21/2021 Do you belong to any clubs o r organizations such as sabianist groups, unions, fraternal or athletic groups, or [...] place to sleep or slept in a mcfp (including now)? 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 Gender Identity Not on file Sexual Orientation Not on file documented as of this encounter Last Filed Vital Signs Vital Sign Reading Time Taken Comments Blood Pressure 106/73 03/06/2024 9:52 AM CDT Pulse 95 03/06/2024 9:52 AM CDT Temperature - - Respiratory Rate - - Oxygen Saturation - - Inhaled Oxygen Concentration - - Weight - - Height - - Body Mass Index - - documented in this encounter Plan of Treatment Not on file documented as of this encounter Procedures Procedure Name Priority Date/Time Associated Diagnosis Comments NONSTRESS TEST Routine 03/06/2024 10:24 AM CDT Obesity affecting , antepartum, unspecified obesity type documented in this encounter Results * nonstress test - (03/06/2024 10:24 AM CDT) Janeth Zacarias BAGGAGE PORTER OB GYNE ORDERABLES Final Result documented in this encounter Visit Diagnoses Diagnosis Obesity affecting , antepartum, unspecified obesity type- Primary documented in this encounter Care Teams Clinical Faculty Relationship Specialty Start Date End Date No, Physician PCP - General 12/03/23 Jarred Roy MD 2 [place] [address] 01/30/19 EyeElma charles NP 2 [facility] [address] [address] Nurse Practitioner General Surgery 12/16/19 documented as of this encounter
--- OUTSIDE RECORDS SUMMARY | 2024-05-10 20:15 | XMS_ITS | Encounter Summary ---
Author Organization [facility] Address [address] [place] [address] Care Team Providers Care Cement Production Plant Operator Name Role Phone Jarred Roy MD Unavailable [phone] Elma Echevarria NP Unavailable No, Physician Primary Care Provider [phone] Encounter Details Date Type Department Care Team (Late st Contact Info) Description 04/24/2024 Telephone Obstetrics and Gynecology Clinic [address] [facility] Health 3rd Floor [address] [place] [address] Magui Vail Social History Tobacco Use Types Packs/Day Years Used Date Smoking Tobacco: Never Smokeless Tobacco: Never Alcohol Use Standard Drinks/Week Comments No 0 (1 standard drink = 0.6 oz pur e alcohol) [facility] Utilities Answer Date Recorded In the past 12 months has [employer], gas, oil, or water [employer] threatened to shut off services in your [...] 04/04/2024 How often do you attend chur or mormon services? Never 04/04/2024 Do you belong to [...] place to sleep or slept in a prison (including now)? No 07/21/2021 [place] Depression Scale Answer Date Recorded [place] Depression Scale Total 4 04/18/2024 The thought [...] time in the past 12 m [facility], were you homeless or living in a prison (including now)? No 04/04/2024 Personal Safety Answer Date Recorded Have you ever been in or are you currently in a harmful physical or emotional relationship or is someone making you feel afraid or unsafe? Denies 04/03/2024 Comments No Sex and Gender Information Value Date Recorded Sex Assigned at Not on file Legal Sex Female 11:28 PM VETERINARY VIROLOGIST Gender Identity Not on file Sexual Orientation Not on file documented as of this encounter Miscellaneous Notes * Telephone Encounter - Magui Vail - 04/24/2024 10:02 AM CST Left message for pt to return call to clinic. When pt calls please schedule: ----- Message from Nurse Blanca Nunez sent at 04/22/2024 2:25 PM VETERINARY VIROLOGIST ----- Regarding: FW: BTL Please schedule pt: With: resident Appointment Type: IGY Reason: Surgical Consent/ Salpingectomy When: Next Available Torch Brazer: SO PA: NA RINARY VIROLOGIST RINARY VIROLOGIST documented in this encounter Plan of Treatment Not on file documented as of this encounter Visit Diagnoses Not on filedocumented in this encounter Care Teams Cement Production Plant Operator Relationship Specialty Start Date End Date No, Physician PCP - General 12/03/23 Jarred Roy MD [address] [facility] [address] [address] 01/30/19 Elma Echevarria NP [address] [facility] [address] [address] Nurse Practitioner General Surgery 12/16/19 documented as of this encounter
--- OUTSIDE RECORDS SUMMARY | 2024-05-10 20:15 | XMS_ITS | Encounter Summary ---
Author Organization [facility] Address [address] [place] [address] Phone Care Team Providers Care Order Entry Technician Name Role Phone Jarred Roy MD Unavailable [phone] Elma Echevarria NP Unavailable No, Physician Primary Care Provider [phone] Encounter Details Date Type Department Care Team (Late st Contact Info) Description 02/28/2024 Orders Only [facility] Maternal- Medicine [facility] [address] [facility] Medical [address] [place] [address] Nelsy Fuller Social History Tobacco Use Types Packs/Day Years [...] often do you attend chur ch or yarsani services? Never 07/21/2021 Do you belong to [...] place to sleep or slept in a custodial (including now)? 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 Gender Identity Not on file Sexual Orientation Not on file documented as of this encounter Ordered Prescriptions Prescription Sig Dispense Quantity Refills Last Filled Start Date End Date respiratory syncytial virus, diluent reconstituted (ABRYSVO) 120 mcg/0.5 mL recon soln Inject 0.5 mL into the muscle as instructed once for 1 dose 0.5 mL 02/28/2024 4 documented in this encounter Plan of Treatment Not on file documented as of this encounter Visit Diagnoses Not on filedocumented in this encounter Care Teams Order Entry Technician Relationship Specialty Start Date End Date No, Physician PCP - General 12/03/23 Jarred Roy MD 2 [facility] [address] [address] 01/30/19 Elma Echevarria NP [address] [address] Nurse Practitioner General Surgery 12/16/19 documented as of this encounter
--- OUTSIDE RECORDS SUMMARY | 2024-05-10 20:15 | XMS_ITS | Encounter Summary ---
Author Organization [facility] Address [address] [place] [address] Phone Care Team Providers Care Bow Stapler Name Role Phone Jarred Roy MD Unavailable [phone] Elma Echevarria NP Unavailable No, Physician Primary Care Provider [phone] Reason for Visit * Reason Comments High Risk Gestation Encounter Details Date Type Department Care Team (Late st Contact Info) Description 03/13/2024 10:00 AM CAREER DEVELOPMENT MANAGER Office Visit [facility] Maternal- Medicine [facility] Health 7th Floor [address] [place] [address] Elevated blood pressure reading without [...] often do you attend chur ch or congregation services? Never 07/21/2021 Do you belong to any clubs o r organizations such as congregation groups, unions, fraternal or athletic groups, or [...] in a long-term (including now)? No 07/21/2021 [place] Depression Scale Answer Date Recorded [place] Depression Scale Total 6 09/03/2021 The thought [...] on file Legal Sex Female 11:28 PM CAREER DEVELOPMENT MANAGER Gender Identity Not on file Sexual Orientation Not on file documented as of this encounter Last Filed Vital Signs Vital Sign Reading Time Taken Comments Blood Pressure 119/74 03/13/2024 10:17 AM CAREER DEVELOPMENT MANAGER Pulse 77 03/13/2024 10:17 AM CAREER DEVELOPMENT MANAGER Temperature - - Respiratory Rate - - Oxygen Saturation 97% 03/13/2024 10: 17 AM CAREER DEVELOPMENT MANAGER Inhaled Oxygen Concentration - - Weight 148.2 kg (326 lb 12.8 oz) 2023 10:17 AM CAREER DEVELOPMENT MANAGER Height - - Body Mass Index 54.38 01/31/2024 9:34 AM CDT documented in this encounter Progress Notes * Janeth Zacarias, LADDER OPERATOR - 03/13/2024 10:00 AM CST [facility] Return Visit 03/13/2024 Mary Singh is a 24 y.o. at 36w0d who is here for a return OB visit. Her is complicated by proteinuria, obesity, h/o pp hemorrhage and family history of ONTD. Subjective: Patient reports a headache since Monday. She also reports feeling very tired and overall just unwell. She denies viral symptoms and did take a covid test that was negative. She took tylenol this morning with no improvement. She continues on mag/riboflavin. She has tried water and caffeine without improvement and rates the headache 6/10. She also has episodes of chest tightness that she believes might be anxiety. She denies chest pain, SOB or irregular heartbeat. She denies regularcontractions, VB or LOF and reports good movement. Objective: BP 119/74 Pulse 77 Wt (!) 326 lb 12.8 oz (148.2 kg) LMP 07/05/2023 (Exact Date) SpO2 97% BMI 54.38 kg/m?? General: NAD Abdomen: Soft, gravid, NT, FHR + (reactive NST) Ultrasound: n/a Assessment/Plan: Mary Singh is a 24 y.o. at 36w0d with a complicated by the following: Problem [...] high-risk , first trimester Overview [x] Full [facility] Care as of 12/13/2023 [x] [employer] email sent 12/12 Referring Provider: Janett Robles [phone] [] or Medicare Insurance [x] Dating Criteria: [...] [x] CBC/HIV/RPR: 12.1/35.8/237k HIV: NR RPR: NR [] GBS: sent 03/13/2024 [x] testing: weekly at 34 weeks 2/2 obesity [] RSV: rx placed 02/14/2024- plans to get today Counseling [x] MOD: IOL; scheduled for 04/02 at 11pm, letter sent to patient [x] Place of delivery: [facility] [] Last clinic visit [facility]: [] IOL start agent: [x] Epidural: desires [x] Blood Products: willing to accept [] Consents signed: upon admission [x] Stop ASA- discussed [x] MOC: Pt [...] makes. She is considering exclusively pumping. 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: [x] PP Depression Discussed: Relevant Orders Group B streptococcal culture Vaginal/Rectal #headache/chest tightness - sent to [facility] for evaluation and treatment of headache - [facility] return precautions reviewed for any new chest pain, SOB or irregular heartbeat - [facility] LADDER OPERATOR aware [place] [facility] DEVELOPMENT MANAGER documented in this encounter Plan of Treatment Not on file documented as of this encounter Results * (ABNORMAL) Group B streptococcal culture Vaginal/Rectal (03/13/2024 1:33 PM CAREER DEVELOPMENT MANAGER) Report Final Report: Streptococcus agalactiae (Group B [...] allergic patients, please contact the laboratory at [phone] to request susceptibility testing * ??* ??* ??* ??* ??* ??* ??* ??* ??* ??* ??* ??* ??* ??* ??* ??* ??* ??* ??* (.) Organism STREPTOCOCCUS AGALACTIAE (GROUP B STREPTOCOCCI) [facility] Vaginal/Rectal 03/13/2024 1: 33 PM CAREER DEVELOPMENT MANAGER 03/13/2024 2:20 PM CAREER DEVELOPMENT MANAGER Narrative [facility] - 03/15/2024 1:08 PM CAREER DEVELOPMENT MANAGER Testing performed by [facility] Microbiology Laboratory ([phone]). us Janeth Zacarias NP LAB MICROBIOLOGY - GENERAL ORDERABLES Final Result [facility] Department [place] [address] documented in this encounter Visit Diagnoses Diagnosis Elevated blood pressure reading without diagnosis of hypertension- Primary Family history of spina bifida Family history of congenital anomalies History of hemorrhage, currently in first trimester Obesity affecting in first trimester, unspecified obesity type headache in second trimester Proteinuria complicating in first trimester Supervision of high-risk , first trimester Supervision of high-risk , first trimester documented in this encounter Care Teams Bow Stapler Relationship Specialty Start Date End Date No, Physician PCP - General 12/03/23 Jarred Roy MD [address] [address] 01/30/19 Elma Echevarria NP [address] [address] Nurse Practitioner General Surgery 12/16/19 documented as of this encounter
--- OUTSIDE RECORDS SUMMARY | 2024-05-10 20:15 | XMS_ITS | Encounter Summary ---
Author Organization [facility] Address [address] [place] [address] Phone Care Team Providers Care Activities Manager Name Role Phone Jarred Roy MD Unavailable [phone] Elma Echevarria NP Unavailable No, Physician Primary Care Provider [phone] Reason for Referral * (Routine) - Pending Review Specialty Diagnoses / Procedures Referred By Loyd t Referred To Contact Diagnoses Obesity affecting , antepartum, unspecified obesity type Procedures nonstress test - Janeth Zacarias NP [address] [facility] [id number] [place] [address] Phone: tel: fax: [facility] (All Locations) Referral ID Status Reason Start Date Expiration Date V isits Requested Visits Authorized [id number] Pending Review 03/13/2024 04/12/2025 1 1 RVISORY EXAMINER Reason for Visit * Reason Comments Non-stress Test Encounter Details Date Type Department Care Team (Latest Contact Info) Description 03/13/2024 9:30 AM SUPERVISORY EXAMINER Clinical Support [facility] Obstetrics and Gynecology [address] [facility] Health 7th [place] [address] Obesity affecting , antepartum, unspecified obesity type [...] often do you attend chur ch or caodaism services? Never 07/21/2021 Do you belong to any clubs o r organizations such as jain groups, unions, fraternal or athletic groups, or [...] place to sleep or slept in a mcc (including now)? No 07/21/2021 [place] Depression Scale Answer Date Recorded [place] Depression Scale Total 6 09/03/2021 The thought [...] on file Legal Sex Female 11:28 PM SUPERVISORY EXAMINER Gender Identity Not on file Sexual Orientation Not on file documented as of this encounter Last Filed Vital Signs Vital Sign Reading Time Taken Comments Blood Pressure 119/74 03/13/2024 9:50 AM SUPERVISORY EXAMINER Pulse - - Temperature - - Respiratory Rate - - Oxygen Saturation - - Inhaled Oxygen Concentration - - Weight - - Height - - Body Mass Index - - documented in this encounter Plan of Treatment Not on file documented as of this encounter Procedures Procedure Name Priority Date/Time Associated Diagnosis Comments NONSTRESS TEST Routine 03/13/2024 10:21 AM SUPERVISORY EXAMINER Obesity affecting , antepartum, unspecified obesity type documented in this encounter Results * nonstress test - (03/13/2024 10:21 AM SUPERVISORY EXAMINER) us Janeth Zacarias RD PROJECT MANAGER OB GYNE ORDERABLES Final Result documented in this encounter Visit Diagnoses Diagnosis Obesity affecting , antepartum, unspecified obesity type- Primary documented in this encounter Care Teams Activities Manager Relationship Specialty Start Date End Date No, Physician PCP - General 12/03/23 Jarred Roy MD 2 [place] [address] 01/30/19 Elma Echevarria NP 2 [place] [address] Nurse Practitioner General Surgery 12/16/19 documented as of this encounter
--- OUTSIDE RECORDS SUMMARY | 2024-05-10 20:15 | XMS_ITS | Encounter Summary ---
Author Organization [facility] Address [address] [place] [address] Phone Care Team Providers Care Industrial Machinery Mechanic Name Role Phone Jarred Roy MD Unavailable [phone] Elma Echevarria NP Unavailable No, Physician Primary Care Provider [phone] Reason for Visit * Reason Comments High Risk Gestation Encounter Details Date Type Department Care Team (Late st Contact Info) Description 03/20/2024 10:40 AM PAPER AND PULP MILL OPERATOR Office Visit [facility] Maternal- Medicine [facility] Health 7th Floor [address] [place] [address] Elevated blood pressure reading without [...] any clubs o r organizations such as confucianist groups, unions, fraternal or athletic groups, or [...] place to sleep or slept in a penitentiary (including now)? No 07/21/2021 [place] Depression Scale Answer Date Recorded [place] Depression Scale Total 6 09/03/2021 The thought [...] on file Legal Sex Female 11:28 PM PAPER AND PULP MILL OPERATOR Gender Identity Not on file Sexual Orientation Not on file documented as of this encounter Last Filed Vital Signs Vital Sign Reading Time Taken Comments Blood Pressure 129/77 03/20/2024 10:18 AM PAPER AND PULP MILL OPERATOR Pulse 98 03/20/2024 10:18 AM PAPER AND PULP MILL OPERATOR Temperature - - Respiratory Rate - - Oxygen Saturation 99% 03/20/2024 10: 18 AM PAPER AND PULP MILL OPERATOR Inhaled Oxygen Concentration - - Weight 147.5 kg (325 lb 3.2 oz) 024 10:18 AM PAPER AND PULP MILL OPERATOR Height - - Body Mass Index 54.12 03/13/2024 11:42 AM PAPER AND PULP MILL OPERATOR documented in this encounter Progress Notes * Janeth Zacarias, NHI - 03/20/2024 10:40 AM CST M Return Visit 03/20/2024 Mary Singh is a 24 y.o. at 37w0d who is here for a return OB visit. Her is complicated by proteinuria, obesity, h/o pp hemorrhage and family history of ONTD. Subjective: Her headaches have resolved. She denies regular contractions, VB or LOF and reports good movement. She is ready for delivery. Objective: BP 129/77 Pulse 98 Wt (!) 325 lb 3.2 oz (147.5 kg) LMP 07/05/2023 (Exact Date) SpO2 99% BMI 54.12 kg/m?? General: NAD Abdomen: Soft, gravid, NT, FHR + (reactive NST) Ultrasound: n/a Assessment/Plan: Mary Singh is a 24 y.o. at 37w0d with a complicated by the following: Problem [...] Good hydration and regular meals Caffeine prn Supervision of high-risk , first trimester Overview [x] Full [facility] Care as of 12/13/2023 [x] [employer] email sent 12/12 Referring Provider: Janett Robles [phone] [] or Medicare Insurance [x] Dating Criteria: [...] makes. She is considering exclusively pumping. [x] Senior Consumer Insights Consultant: [x] PP Depression Discussed: Labor/PEC/FKC precautions reviewed. Reviewed the importance of presenting to her closest hospital in the case of an emergency for evaluation and if necessary and safe will be transferred to [facility]. [place] R AND PULP MILL OPERATOR documented in this encounter Plan of Treatment Not on file documented as of this encounter Visit Diagnoses Diagnosis Elevated blood pressure reading without diagnosis of hypertension- Primary Family history of spina bifida Family history of congenital anomalies History of hemorrhage, currently in first trimester Obesity affecting in first trimester, unspecified obesity type headache in second trimester Supervision of high-risk , first trimester documented in this encounter Care Teams Industrial Machinery Mechanic Relationship Specialty Start Date End Date No, Physician PCP - General 12/03/23 Jarred Roy MD [address] [address] 01/30/19 Elma Echevarria NP [address] [address] Nurse Practitioner General Surgery 12/16/19 documented as of this encounter
--- OUTSIDE RECORDS SUMMARY | 2024-05-10 20:15 | XMS_ITS | Encounter Summary ---
Author Organization [facility] Healthcare Address [address] [place] [address] Care Team Providers Care Manager Contracting Name Role Phone Jarred Roy MD Unavailable [phone] EyersElma NP Unavailable No, Physician Primary Care Provider [phone] Reason for Visit * Auth/Cert (Routine) Specialty Diagnoses / Procedures Referred By Contac t Referred To Contact Diagnoses Encounter for induction of labor Procedures n/a Referral ID Status Reason Start Date Expiration Date Visits Re quested Visits Authorized [id number] 1 1 Encounter Details Date Type Department Care Team (Late st Contact Info) Description 04/02/2024 10:51 PM PHOTOVOLTAIC INSTALLER - 04/04/2024 2:57 PM PHOTOVOLTAIC INSTALLER Hospital Encounter [address] [id number] Garret Victor MD [address] [address] Sudha Abarca MD [address] [facility] [id number] [place] [address] Geeta Zhang MD [address] [facility] [phone] [place] [address] Encounter for induction of labor (Primary Dx) Discharge Disposition: Discharge to home or self care Social History Tobacco Use Types Packs/Day Years Used Date Smoking Tobacco: Never Smokeless Tobacco: Never Alcohol Use Standard Drinks/Week Comments No 0 (1 standard drink = 0.6 oz pur e alcohol) [facility] Utilities Answer Date Recorded In the [...] often do you attend chur ch or baptism services? Never 04/04/2024 Do you belong to any clubs o r organizations such as orthodox groups, unions, fraternal or athletic groups, or [...] in a residential (including now)? No 07/21/2021 Adrian Depression Scale Answer Date Recorded Adrian Depression Scale Total 6 09/03/2021 The thought [...] any time in the past 12 m [facility], were you homeless or living in a [...] on file Legal Sex Female 11:28 PM PHOTOVOLTAIC INSTALLER Gender Identity Not on file Sexual Orientation Not on file documented as of this encounter Last Filed Vital Signs Vital Sign Reading Time Taken Comments Blood Pressure 129/68 04/04/2024 7:39 AM PHOTOVOLTAIC INSTALLER Pulse 71 04/04/2024 7:39 AM PHOTOVOLTAIC INSTALLER Temperature 36.5 ??C (97.7 ??F) 04/04/2024 7:39 AM CS T Respiratory Rate 16 04/04/2024 7:39 AM PHOTOVOLTAIC INSTALLER Oxygen Saturation 99% 04/04/2024 7:39 AM PHOTOVOLTAIC INSTALLER Inhaled Oxygen Concentration - - Weight 148.3 kg (326 lb 14.4 oz) 2023 12:25 AM PHOTOVOLTAIC INSTALLER Height 165.1 cm (5' 5 ) 04/03/2024 12:2 5 AM PHOTOVOLTAIC INSTALLER Body Mass Index 54.4 04/03/2024 12:25 AM PHOTOVOLTAIC INSTALLER documented in this encounter Discharge Summaries * eJssica Hansen MD - 04/04/2024 7:39 AM CST Inpatient Discharge Summary Admitting Provider: Sudha Abarca MD Discharge Provider: No att. providers found Admission Date: 04/02/2024 Discharge Date: 04/04/2024 Delivery Date/Time: 04/03/2024t 11:09 AM Delivery method: Vaginal [[id number]] Primary Discharge Diagnosis: Intrauterine at 39w0d, delivered Secondary Discharge Diagnosis: Medical Conditions Diagnosis Acute sinusitis Astigmatism Crxl-rx-ebio spots Chronic daily headache Facial swelling Iron deficiency Loss of hair Migraine Vitamin D deficiency Chronic migraine without aura without status migrainosus, not intractable Rh negative state in antepartum period Maternal varicella, non-immune Obesity complicating in first trimester GBS (group b Streptococcus) UTI complicating , first trimester Proteinuria complicating in first trimester Family history of spina bifida Supervision of high-risk , first trimester History of hemorrhage, currently in first trimester Elevated blood pressure reading without diagnosis of hypertension headache in second trimester state Procedures Performed: Vaginal delivery Other Treatments: Magnesium sulfate therapy: No Blood transfusion: No Hospital Course: Mary Singh is a 24 y.o. female at 39w0d weeks gestation, dated by L=1 with Estimated Date of Delivery: 04/10/24. Her was notable for history of hemorrhage, family history of NTD, Rh negative and isolated elevated BP. Vertex presentation and GBS positive confirmed on admission. She presented for induction of labor. Her induction was started with oxytocin and she underwent AROM. Epidural was placed for anesthesia. Patient progressed to complete and had an uncomplicated vaginal delivery a viable male infant with apgars 8 and 9 at one and five minutes of life respectively. See L&D delivery note for full details. The patient was transferred to . Her course was uncomplicated. Prior to discharge, her pain was well controlled, she was voiding, passing gas, ambulating, and meeting all post milestones. #Post DVT prophylaxis: The patient has the following MAJOR risk factors BMI >/= 40 and the following MINOR risk factors none. enoxaparin 40 mg BID ordered for VTE prophylaxis. #Rh neg: s/p Rhogam 01/17/24, received rhogam pp per lab workup. #Headache: controlled on topomax outside of , Mg/B6 during , compazine PRN #Mother/Baby: The patient has chosen to formula feed her and has chosen an interval BTL withDMPA as bridge for contraception. Discharge Details Physical Exam at Discharge: Discharge Condition: Stable Pulse: 71 Resp: 16 BP: 129/68 Temp: 36.5 ??C (97.7 ??F) Weight: (!) 326 lb 14.4 oz (148.3 kg) See full physical exam from progress note on day of discharge. Lab Results Component Value Date HCT 34.8 (L) 04/02/2024 ABORH O Negative 04/04/2024 SCRRUBELIGG Immune 09/18/2023 [] Iron prescribed on discharge [] Post Rhogam given [] Post MMR given Immunization History Administered Date(s) Administered DTaP 1999, 1999, 1999, 02/09/2001, 12/17/2004 H1N1 Nasal 07/09/2009 HPV, Quadrivalent 12/19/2013 HPV, Unspecified 02/02/2012, 04/04/2012, 12/19/2013 Hep A, Pediatric 07/09/2009, 12/15/2010 Hep B, Adolescent or Pediatric 1999, 01/14/2000, 02/09/2001 HiB 1999, 1999, 1999, 02/09/2001 IPV 1999, 1999, 02/09/2001, 12/17/2004 Influenza LAIV (Nasal) 05/07/2013, 02/28/2014 Influenza, Live, Intranasal, Quadrivalent 05/07/2013, 02/28/2014 Influenza, Quadrivalent, Split, Intramuscular 05/27/2020 Influenza, Quadrivalent, Split, Preservative Free, Intramuscular 01/22/2019, 06/25/2019, 07/21/2021 Influenza, Trivalent, Cell Culture-based MDCK, Preservative Free, Antibiotic Free, Intramuscular 01/31/2024 Influenza, Trivalent, IM (MDV) 01/19/2011 Influenza, Unspecified 02/02/2012, 05/07/2013, 02/28/2014 MMR 02/22/2000, 12/17/2004, 07/21/2021 Meningococcal B, OMV (Bexsero) 09/21/2017, 11/24/2017 Meningococcal Conjugate (Menveo) 07/29/2016 Meningococcal MCV4, Unspecified 12/15/2010 Pfizer SARS-CoV-2 Monovalent Vaccination (12+ Yrs) PABON-READY TO USE 07/21/2021 Tdap 07/09/2009, 06/25/2019, 05/17/2021, 01/17/2024 Varicella 02/22/2000, 07/09/2009 Discharge Medications: Your medication list START taking these medications acetaminophen 325 mg tablet Take 2 tablets (650 mg total) by mouth every 6 (six) hours as needed for pain Commonly known as: TYLENOL ibuprofen 600 mg tablet Take 1 tablet (600 mg total) by mouth every 6 (six) hours as needed for pain Commonly known as: ADVIL,MOTRIN lidocaine 5 % Place 1 patch on the skin daily Remove & discard patch within 12 hours or as directed by MD. Commonly known as: LIDODERM CONTINUE taking these medications famotidine 20 mg tablet Take 1 tablet (20 mg total) by mouth 2 (two) times a day Commonly known as: PEPCID 28 mg iron- 800 mcg tablet Take 1 tablet every day by oral route. Generic drug: vitamin ferrous fumarate-folic prochlorperazine 10 mg tablet Take 1 tablet (10 mg total) by mouth every 6 (six) hours as needed (headache) Commonly known as: COMPAZINE riboflavin (vitamin B2) 400 mg tablet Take 400 mg by mouth daily STOP taking these medications aspirin 81 mg enteric coated tablet BinaxNOW COVID-19 Ag Self Test kit Generic drug: COVID-19 antigen test magnesium oxide 400 mg (241.3 mg elemental magnesium) tablet Commonly known as: MAG-OX Future Appointments Date Time Provider Department Center 04/18/2024 11:20 AM [facility] TITLE SEARCHER [facility] OB 05/16/2024 11:20 AM [facility] TITLE SEARCHER [facility] OB Cosigned by Jovan Healy MD at 04/04/2024 5:20 PM PHOTOVOLTAIC INSTALLER OVOLTAIC INSTALLER OVOLTAIC INSTALLER documented in this encounter Discharge Instructions * Discharge Instructions* DelvalleAyush vasquezsandrita NunnLaina, TITLE SEARCHER - 04/03/2024 12:42 PM PHOTOVOLTAIC INSTALLER Images from the original note were not included. Discharge Instructions - Vaginal Delivery In order to minimize social contact during COVID19 precautions, your visit maybe over the phone. Please remember to wash your hands frequently, do not touch your face, and avoid anyone with feversor cough. Stay at home as much as possible and practice social distancing. For any concerns you can call our OB communication center at [phone] 28/11. * If you have SEVERE illness including persistent shortness of breath, high fever not responsive totylenol, or nausea and vomiting preventing you from adequately orally hydrating, then call your doctor or go to the ER. Call Your Doctor If: * You have a fever of 100.4 degrees or higher. * You have vaginal bleeding more than your normal menstrual period. * You are passing large blood clots (larger than an egg). * You have a strong foul odor coming from your vagina. * You have burning, pain or difficulty urinating. * You have pain or swelling in your vagina or vulva that gets worse or does not get better. * You have nausea, vomiting or increased abdominal pain. * You have redness or pain in your calves, legs or inner thighs. * You have red, swollen painful breasts. * You have other questions or concerns * You have a headache, difficulty breathing, pain in your upper abdomen, or changes in your vision. * You have decreased urine output. * Your level of consciousness changes. * If you have a blood pressure cuff at home, check your blood pressure once a day and write it down. Call your doctor if your blood pressure is greater than 160 (top number) or 110 (bottom number). Diet: * Follow your regular diet. * Maintain liquid intake of 8 -10 glasses per day. * For constipation - drink prune juice or take stool softener medication ordered by your doctor. Eat foods with fiber (examples - raisins, prunes, washed raw vegetables, whole wheat bread, and bran). Activity: * Do not put anything in your vagina for 6 weeks. NO douching, tampons or sexual intercourse. * Weakness and fatigue are common. * Limit activities and visitors and increase as energy levels return. Rest as often as possible. * No driving while taking narcotics. * If you are not , milk will come in between the 3rd and 4th day . Wear tight support bra and use ice packs to relieve breast discomfort. Care Instructions: * You may shower and shampoo hair as desired. * You may take a tub bath 2 weeks after delivery. * For perineal discomfort sit in warm shallow water for 15-20 minutes. Do this 3-4 times a day. Anystitches you have will dissolve in about 2 weeks. Continue to use mart bottle for the next 5-7 days. Contraception: For more information on available methods of preventing , please visit https://www.bedsider.org/ LACTATIONAL AMENORRHEA can be an effective method to prevent if ALL of the following are true: 1) you are on demand, with at least 80% of feeds at the breast (not pumped breast milk orformula), 2) you have not gotten your first menstrual period after delivery, and 3) your baby is less than 6 months old. Ask your doctor about other methods of control if any of those things are no longer true. DESIRES CONDOMS / DECLINES CONTRACEPTION: You can get within 2 weeks of giving , though we recommend no sexual intercourse for at least 6 weeks. Condoms can be an effective method of control. However, other methods of control are better at preventing . Use a new condom every time you have sex. If you do not use a condom, or the condom breaks, you can use emergency contraceptive pills (Plan B) to preventpregnancy. You can get them at a pharmacy without a prescription. You can also get a prescription by calling your doctor. Emergency contraception works best if used right away. However, you can stilluse it within 5 days after unprotected sex. DESIRES BILATERAL TUBAL LIGATION / STERILIZATION: You plan to have a fallopian tube removal at 6 weeks . You can call your primary OB to schedule. It works right away to prevent . Feeding: Formula Feeding: Feed your baby based on baby's hunger cues. Your baby will eat about every three to four hours during the day. Babies usually eat on demand (when they wake up at night). Your baby will take1-3 ounces at each feeding, and this will increase as the baby grows. Formula contains all the water and nutrition your baby needs. Do NOT supplement (water, juice, cereal) unless instructed byPediatrician. Call your Commercial Lawn Specialist if your baby has poor eating habits (examples: feedings decrease, no feedings in 6 hours, or spits up more than ?? of their feeding for 2 consecutive feedings). Once your baby is 5-6 days old you should expect at least 5 wet diapers and 3 soiled diapers per day. Outpatient Follow Up: Every patient needs a visit. We are currently scheduling some in person and some telemedicine visits for your visits. If you do not hear from your primary OB to set up your telephone or in person visit, please call your primary OB to set up a telephone or in person visit. Thank you for understanding and remember to wash your hands and avoid anyone with fevers or cough. Stay at home as much as possible and practice social distancing. If you yourself develop fever >100.4F, a new cough, or shortness of breath please call our centralized OB communication center at [phone]. Do not come to the hospital or clinic until you speak with a provider. Contact Information for your primary OB: [facility]) - [facility] - [address] [place], [place] [address]Gbzf to schedule an appointment to be seen within 2 weeks. Future Appointments Date Time Provider Department Center 04/18/2024 11:20 AM [facility] TITLE SEARCHER [facility] 7 OB 05/16/2024 11:20 AM [facility] TITLE SEARCHER [place] [address] OB Blood Pressure Monitoring: If you are enrolled in home blood pressure monitoring please text your blood pressures when prompted upon hospital discharge. How to use a home blood pressure monitor: Be still. Don't smoke, drink caffeinated beverages or exercise within 30 minutes before measuring your blood pressure. Sit for at least 5 minutes before taking your blood pressure. Sit correctly. Sit with your back straight and supported (on a dining chair, rather than a sofa). Your feet should be flat on the floor and your legs should not be crossed. Your arm should be supported on a flat surface (such as a table) with the upper arm at heart level. Make sure the middle of the cuff is placed directly above the bend of the elbow. Check your monitor's instructions for an illustration or have your healthcare provider show you how. If at ANY time you have symptoms of chest pain, shortness of breath, vision changes, numbness/weakness, difficulty speaking, headache, or if something just doesn't feel right, call our OB communication center at [phone]. High blood pressure problems during & after Preeclampsia or induced hypertension is a high blood pressure disease that can happen in and shortly after delivery (up to 6 weeks after having your baby). Most women will developblood pressure problems towards the end of their , but others will have it for the first time after their delivery. High blood pressure can be dangerous and needs to be monitored closely. Blood pressures can get so high that it can put you at risk for brain injury, stroke, and seizures. Preeclampsia can also hurt your kidneys and liver or cause buildup of fluid in your lungs. If it is very severe and not treatedpreeclampsia can cause . Preeclampsia affects 8-10 out of 100 women and although we don???t know exactly what causes it we do know that some women are at higher risk: - First - If you are under 18 years old or over 40 years old - If you have diabetes, kidney problems, or Lupus - If you are obese - If you have had preeclampsia before - If you had high blood pressure before - If you are with twins or triplets The best way to treat preeclampsia is to have the baby and most of the time your blood pressure will return to normal after delivery, but some people still have high blood pressure after the baby is born. Some people need medication when leaving the hospital to help keep you blood pressure in a normal range. You may only need to take medication for a short time after the baby is born others need it for longer periods of time. It is very important that you get this prescription filled and take the medicine as instructed in order to help control your blood pressure. If you have preeclampsia or another hypertensive disorder of after you go home from the hospital, you should call the doctor if you experience: group home risks of preeclampsia If you had preeclampsia or high blood pressure in you have a higher chance of having highblood pressure sometime later in life. It can also increase your chance of heart disease, heart attack, or stroke in future . May women who get preeclampsia will not have it again in the future but women with preeclampsia have a higher chance of getting it again compared to women who did not have it. If you had a baby before 34 weeks because of preeclampsia, you have the highest chance of getting it again. It is very important you see a primary care doctor for regular checkups to have your blood pressurechecked. Discharge Medications: Take the following medications. Your medication list ASK your doctor about these medications aspirin 81 mg enteric coated tablet 81 mg, oral, Daily BinaxNOW COVID-19 Ag Self Test kit TEST DIRECTED TODAY Generic drug: COVID-19 antigen test famotidine 20 mg tablet 20 mg, oral, 2 times daily Commonly known as: PEPCID magnesium oxide 400 mg (241.3 mg elemental magnesium) tablet 400 mg, oral, Daily Commonly known as: MAG-OX 28 mg iron- 800 mcg tablet Take 1 tablet every day by oral route. Generic drug: vitamin ferrous fumarate-folic prochlorperazine 10 mg tablet 10 mg, oral, Every 6 hours PRN Commonly known as: COMPAZINE riboflavin (vitamin B2) 400 mg tablet 400 mg, oral, Daily OVOLTAIC INSTALLER OVOLTAIC INSTALLER documented in this encounter Medications at Time of Discharge acetaminophen (TYLENOL) 325 mg tablet Take 2 tablets (650 mg total) by mouth every 6 (six) hours as needed for pain 30 tablet 04/04/2024 vitamin ferrous fumarate-folic () 28 mg iron- 800 mcg tablet Take 1 tablet every day by oral route. 07/25/2023 ibuprofen (ADVIL,MOTRIN) 600 mg tabletIndication s:Cramps Take 1 tablet (600 mg total) by mouth every 6 (six) hours as needed for pain 120 tablet 04/04/2024 05/04/2024 famotidine (PEPCID) 20 mg tablet Take 1 tablet (20 mg total) by mouth 2 (two) times a day 60 tablet 3 02/14/2024 04/18/2024 lidocaine (LIDODERM) 5 % Place 1 patch on the skin daily Remove & discard patch within 12 hours or as directed by 9 patch 04/04/2024 04/18/2024 prochlorperazine (COMPAZINE) 10 mg tablet Take 1 tablet (10 mg total) by mouth every 6 (six) hours as needed (headache) 30 tablet 12/13/2023 04/18/2024 riboflavin, vitamin B2, 400 mg tabletIndication s:Migraine Prevention Take 400 mg by mouth daily 30 tablet 3 01/31/2024 04/18/2024 documented as of this encounter Ordered Prescriptions Prescription Sig Dispense Quantity Refills Last Filled Start Date End Date acetaminophen (TYLENOL) 325 mg tablet Take 2 tablets (650 mg total) by mouth every 6 (six) hours as needed for pain 30 tablet 04/04/2024 lidocaine (LIDODERM) 5 % Place 1 patch on the skin daily Remove & discard patch within 12 hours or as directed by 9 patch 04/04/2024 ibuprofen (ADVIL,MOTRIN) 600 mg tabletIndications: Cramps Take 1 tablet (600 mg total) by mouth every 6 (six) hours as needed for pain 120 tablet 04/04/2024 4 documented in this encounter Discharge Disposition Disposition Code Departure Means Destination Discharge to home or self care documented in this encounter Progress Notes * Jessica Hansen MD - 04/04/2024 7:23 AM CST Post Progress Note Delivery Date/Time: 04/03/2024t 11:09 AM Delivery method: Vaginal [[id number]] Subjective Flatus: Yes Pain: Well controlled Diet: Tolerating regular diet. Ambulating independently Voiding spontaneously Lochia less than menses Feeling great, no complaints. No LUND. Desires DC today. Scheduled Medications docusate sodium, 100 mg, oral, BID enoxaparin, 40 mg, subcutaneous, Q12H GRANT viatmin, 1 tablet, oral, Daily polyethylene glycol, 17 g, oral, Daily PRN Medications acetaminophen benzocaine-menthoL calcium carbonate hydrocortisone ibuprofen qkcbzef-ojmvt-zceypdb medroxyPROGESTERone ondansetron ODT OR ondansetron polyethylene glycol Tdap varicella zoster Vitals: Temp: [36.4 ??C (97.6 ??F)-36.9 ??C (98.4 ??F)] 36.5 ??C (97.7 ??F) Pulse: [69-98] 74 BP: (99-128)/(47-65) 115/61 Resp: [16-18] 17 SpO2: [94 %-100 %] 96 % Intake/Output Summary (Last 24 hours) at 04/04/2024 0743 Last data filed at 04/03/2024 1215 Gross per 24 hour Intake -- Output 808 ml Net -808 ml Physical Exam General: No acute distress. Cardiovascular: Regular rate and rhythm. Lungs: Non-labored. Abdomen: Soft, non-distended, non-tender to palpation. Fundus below umbilicus. Extremities: Warm and well-perfused. Neuro: Globally intact Recent Labs Lab Units 04/02/24 2332 WBC K/cumm 9.1 HEMOGLOBIN g/dL 11.8* HEMATOCRIT % 34.8* PLATELETS K/cumm 228 CREATININE mg/dL 0.54* AST Units/L 26 ALT Units/L 21 GLUCOSE mg/dL 103 Assessment and Plan 24 y.o. PPD#1from . Problem State # ID: Afebrile. No signs/symptoms of infection. [...] interval tubal. To be set up in [facility] 3 for interval tubal. DMPA as bridge. # MOF: Formula feeding. Urine drug screen not indicated. Patient informed of results: N/A. # Post DVT prophylaxis: The patient has the following MAJOR risk factors BMI >/= 40 and the following MINOR risk factors none. enoxaparin 40 mg BID ordered for VTE prophylaxis. # Disposition: Follow up task not sent. Desires discharge home today. #Rh neg: s/p Rhogam 01/17/24, for Rhogam prior to d/c #Headache: controlled on topomax outside of , Mg/B6 during , compazine PRN Service Coverage These phones are service phones and carried 28/11 in house: R1 (first call) [phone] R1 alt (second call) [phone] R4 (Chief) [phone] Jessica Hansen MD 04/04/24 R4 Attestation I have reviewed, edited as needed, and agree with the above documentation. Deyvi Chavez MD Obstetrics and Gynecology PGY4 Cosigned by Jovan Healy MD at 04/04/2024 11:09 AM PHOTOVOLTAIC INSTALLER OVOLTAIC INSTALLER OVOLTAIC INSTALLER OVOLTAIC INSTALLER Associated attestation - Jovan Healy MD - 04/04/2024 11:09 AM PHOTOVOLTAIC INSTALLER Images from the original note were not included. I have seen and examined the patient on 04/04/24. I agree with the findings and plan of care as documented in the resident's/fellow's note. PPD 1 - doing well. Continue routine care Elevated BP - has not met diagnosis for gHTN. Continue to monitor Rh negative - received RhoGam Jovan Healy MD * Noemi Collins MD - 04/03/2024 9:09 AM CST Labor Update Note S: Patient s/p epidural and comfortable O: BP 100/54 Pulse 76 Temp 36.7 ??C (98.1 ??F) (Oral) Resp 16 Ht 165.1 cm (5' 5 ) Wt (!) 326 lb 14.4 oz (148.3 kg) LMP 07/05/2023 (Exact Date) SpO2 96% BMI 54.40 kg/m?? SVE: /-2 Monitoring: Baseline: 135 bpm, Variability: Moderate, Accelerations: Present and Decelerations: Yes, variables Uterine Activity: Contractions present, q2-3 minutes A/P: 24 y.o. at 39w0d Category 2 tracing Vitals: reviewed and normal Additional medications/infusions: oxytocin - will continue to titrate per protocol Secondary to variables will start an AI. Monitor tracing carefully. riskLD was referenced in the care of this patient and alerts were managed clinically. Noemi Collins MD OVOLTAIC INSTALLER * Alysha Raza MD - 04/03/2024 7:41 AM CST Labor Update Note S: Patient comfortable. Into room to AROM O: BP 101/53 Pulse 75 Temp 36.6 ??C (97.8 ??F) Resp 18 Ht 165.1 cm (5' 5 ) Wt (!) 326 lb 14.4 oz (148.3 kg) LMP 07/05/2023 (Exact Date) SpO2 95% BMI 54.40 kg/m?? SVE: /-3 Monitoring: Baseline: 125 bpm, Variability: Moderate, Accelerations: Present and Decelerations: None Uterine Activity: Contractions present, q3-4 minutes A/P: 24 y.o. at 39w0d - Category 1 tracing - s/p AROM @0735a, large clear fluid - On OT, currently running at14 - Plan for recheck in ~ 2h or if pt feeling more pressure - Vitals: reviewed and normal Additional medications/infusions: antibiotics PCN riskLD was referenced in the care of this patient and alerts were managed clinically. Alysha Raza MD 04/03/2024 PGY-1 Resident Physician Department of Obstetrics & Gynecology OVOLTAIC INSTALLER * Oralia Parker MD - 04/03/2024 2:01 AM CST Labor Update Note O: BP 113/58 Pulse 83 Temp 36.7 ??C (98.1 ??F) (Oral) Resp 18 Ht 165.1 cm (5' 5 ) Wt (!) 326 lb 14.4 oz (148.3 kg) LMP 07/05/2023 (Exact Date) SpO2 99% BMI 54.40 kg/m?? SVE: /-3 Monitoring: Baseline: 120 bpm, Variability: Moderate, Accelerations: Present and Decelerations: Rare subtle late variable Uterine Activity: Contractions present, q1-2 minutes A/P: 24 y.o. at 39w0d Category 2 tracing, reassured by mod shannon and accels Vitals: reviewed and normal Will plan for AROM after second dose of penicillin Additional medications/infusions: oxytocin - will continue to titrate per protocol riskLD was referenced in the care of this patient and alerts were managed clinically. Oralia Parker MD OVOLTAIC INSTALLER documented in this encounter H&P Notes * Brady Wu MD - 04/02/2024 11:47 PM CST Obstetrics H&P Chief Complaint: IOL Estimated Date of Delivery: 04/10/24 Provider: SONAL HPI: Mary Singh is a 24 y.o. female at 38w6d gestation, dated by L=1st trimester ultrasound who presents for scheduled rrIOL No concerns, feeling well. Feeling some tightening but no intense contractions. Feeling good movement. No LOF or vaginal bleeding. Having baby boy. Her is complicated by BMI 55, elevated BP, headache, hx PPH, Rh negative (s/p rhogram 01/2024) Patient Denies: [] Contractions [x] Shortness of Breath [x] Nausea/Vomitting [x] Vaginal Bleeding [x] Headache [x] Abdominal Pain [x] Leaking of Fluid [x] Visual changes [x] Decreased Movement OB History Para Term AB Living 2 1 1 0 0 1 SAB IAB Ectopic Multiple Live Births 0 0 0 0 1 # Outcome Date GA Lbr Zachary/2nd Weight Sex Type Anes PTL Lv 2 Current 1 Term 07/20/21 39w1d / 01:01 3.15 kg (6 lb 15.1 oz) F Vag-Spont EPI N MOHAMUD Complications: Post Hemorrhage Name: AYESHA LICONAOR Apgar1: 8 Apgar5: 9 [employer] History: Patient's last menstrual period was 07/05/2023 (exact date). Past Medical History: Diagnosis Date Closed nondisplaced [...] Frequency of Binge Drinking: Never Support System: Supported by mother and partner Safe at home: Yes family history includes Hypertension in her father; Other in her mother. Family history of bleeding or clotting disorders: No Family history of defects, genetic disorders, or developmental delay: Yes, spina bifida, s/p normal anatomy US No Known Allergies HOME MEDICATIONS : aspirin [...] (98.1 ??F)] 36.7 ??C (98.1 ??F) Pulse: [84-88] 88 Resp: [18] 18 BP: (132)/(72) 132/72 Physical Exam: General: NAD, mood appropriate Cardiovascular: Regular rate and rhythm Pulmonary: Normal respiratory effort on room air Abdomen: Gravid, non-tender Extremities: Warm and well perfused Speculum Exam: deferred Cervix: 3 /50 /-3 Monitoring: Baseline: 120 bpm, Variability: Moderate, Accelerations: Present and Decelerations: None Uterine Activity: Irregular contractions Interpretation: Reactive Ultrasound: Vertex presentation Posterior placenta Previa: No Estimated Weight: 3274g (54%ile) by US, date performed 03/27/24 Labs: Lab Results Component Value Date ABORH O Negative 03/13/2024 SCRIBEDABORH O- 09/18/2023 IDCOOMB Positive (A) 03/13/2024 SCRINDANTIGL negative 09/18/2023 [id number] Nonreactive 02/28/2024 [id number] Nonreactive 09/18/2023 LABRPR Nonreactive 02/28/2024 SCRRPR Non-Reactive 09/18/2023 SCRRUBELIGG Immune 09/18/2023 GC negative 09/18/2023 Rh neg/Ab neg/HIV NR (Resulted on: 02/28/24) 3rd trimester (>28 wga):yes/Rub imm/RPR NR/HepB NR/HepC NR/VZV imm/GC/CT neg GBS pos (Resulted on: 03/13/24) Assessment and Plan Problem Encounter for Induction of Labor Mary Singh is a 24 y.o. female at 38w6d who is dated by L=1st trimester ultrasound andis being admitted for an elective induction of labor. Admit to L&D: Labs: CBC and T&S pending. Induction of labor with OT . FWB: Continuous monitoring. Reactive NST. ID: 3rd trimester HIV (>28 wga) negative on 02/28/24. GBS positive on 03/13/24 , will start PCN for GBS prophylaxis . RPR on admission: pending. History of genital HSV or HSV 1/2 seropositivity: No. Membrane Status: intact. Indications for UDS: none. Verbal consent obtained for UDS: Not indicated. MOF: Plans to formula feed. Urine drug screen not indicated. Patient informed of results: N/A. MOC: Desires permanent sterilization, consents mature and signed on 01/03/24 (visualized in medical record). Discussed that we may not be able to perform immediately PP in setting of BMI, pt aware. Declines bridge method. Pain management: Desires epidural. Post DVT prophylaxis: The patient has the following MAJOR risk factors BMI >/= 40 and thefollowing MINOR risk factors none. enoxaparin 40 mg BID will be ordered for VTE prophylaxis . #Rh neg: s/p Rhogam 01/17/24, for rhogam evaluation #Class III obesity: s/p ASA. BMI 54.8 #Family history of spina bifida: s/p counseling, normal anatomy #H/o PPH: for active T&S, consider prepping one unit pending admission CBC #Elevated BP: on home cuff that was not validated, has been normotensive at all visits. Baseline CBC/CMP WNL, baseline UPC WNL. For repeat labs on admission and close monitoring. Normotensive on admission. #Headache: controlled on topomax outside of , Mg/B6 during , compazine PRN Plan discussed with Dr. Abarca. Brady Wu MD 04/02/24 Cosigned by Sudha Abarca MD at 04/03/2024 8:06 AM PHOTOVOLTAIC INSTALLER OVOLTAIC INSTALLER OVOLTAIC INSTALLER Associated attestation - Sudha Abarca MD - 04/03/2024 8:06 AM PHOTOVOLTAIC INSTALLER I have seen and examined the patient on 04/03/24. I agree with the findings and plan of care as documented in the resident's/fellow's note. 24 y.o. at 39w0d by L=1stT sono with c/b BMI 55, hx PPH, FHx of NTD, isolated elevated BP, Rh negative, presents to L&D for rrIOL at 39 weeks. BP 101/53 Pulse 75 Temp 36.7 ??C (98.1 ??F) (Oral) Resp 18 Ht 165.1 cm (5' 5 ) Wt (!) 326 lb 14.4 oz (148.3 kg) LMP 07/05/2023 (Exact Date) SpO2 95% BMI 54.40 kg/m?? Cervix 3 cm. GBS positive 03/13, PCN ordered. Admit to L&D. Plan for pitocin per protocol and AROM after PCN initial dosing. FHTs category 1 and reassuring. Cephalic by ultrasound. Hgb 11.8. Posterior placenta. BMI 55. Anticipate . Desires BTL for BCM (papers signed 01/02 under [employer], counseled that pending on exam post delivery we will determine if this is feasible immediately or if interval BTL will need to be considered. Discussed bridging options). Sudha Abarca MD [employer] Wrest[employer] Division of Maternal- Medicine documented in this encounter Miscellaneous Notes * Plan of Care - Iris Witt RN - 04/04/2024 11:01 AM CST Problem: Additional OB Conditions Goal: Will remain free from complications related to obstetric conditions Outcome: Adequate for Discharge Problem: Fluid Volume Goal: Will maintain adequate fluid volume Outcome: Adequate for Discharge Problem: Skin Integrity Impairment Risk Goal: Mobility will improve Outcome: Adequate for Discharge Goal: Understanding of ways to prevent future skin breakdown will improve Outcome: Adequate for Discharge Goal: Nutritional status will improve Outcome: Adequate for Discharge Goal: Risk for impaired skin integrity will decrease Outcome: Adequate for Discharge Problem: Care Goal: Risk for complications during the period will decrease Outcome: Adequate for Discharge Goal: Ability to identify and utilize resources during the phase will improve Outcome: Adequate for Discharge Goal: Ability to demonstrate positive interaction with the child will improve Outcome: Adequate for Discharge Goal: Ability to participate in self care as condition permits will improve Outcome: Adequate for Discharge Problem: Skin/Tissue Integrity Goal: Incisions, wounds, or drain sites healing without S/S of infection Outcome: Adequate for Discharge Goals: Clinical Goals for the Shift: vss, pain managment, safe dc home Retirement Patient Centered Goal for Treatment: safe dc home Summary: vss, pt voiding, passing flatus, tolerating regular diet, ambulating, caring for self and infant, received rhogam, Depo for bridge to PPTL. Pt has scripts for home use. Pt dc'd home per MD order. OVOLTAIC INSTALLER * Initial Assessments - Liliam Castañeda LCSW - 04/04/2024 10:46 AM PHOTOVOLTAIC INSTALLER Reason for Admission CAROLA (Mary Schofieldpeg 2000) was admitted on 04/02/2024 for Encounter for induction of labor [Z34.90]. Social Work referral for SDOH check in. Medical History OB-[employer] care has been established with MFM. Pediatric follow-up to be scheduled upon discharge. Medical insurance coverage is through [employer] [facility]. Information Baby boy was born on 04/03/2024 at EGA 39 weeks and has been named Manny Singh. Delivery was Vaginal. [place] weighed 7lb 12.9oz at delivery. will be breast/formula fed. This is mother's 2nd child. Social History Current address is [address] [place] [phone], where she lives with her partner and children. Currently [phone] (home) is the best phone number for future contact. Mother noted to have 1 other child(sulma): 2yo daughter, 07/20/21 MOB reports that FOB and family will be a positive support for her and her child. Father of the baby, Celena, has been present and supportive at the hospital. Mood and Anxiety Mary Singh denies having any MH or PPD hx. Pt denies having any concerns for mood instability throughout , stating just the normal ups and downs that come with . SW provides support. Social Work and Mary Singh discussed the signs and symptoms of Mood and Anxiety Disorder. Social Work discussed and normalized increase in emotions and the importance of self-care. Social Work encouraged new mom to take time for herself and utilize supports available. Available support systems reviewed, including: FOB and family. Warning signs reviewed and MOB encouraged to seek medical and mental health treatment if symptoms arise including possible medication management. MOB engaged in conversation and demonstrates knowledge. Resources Provided and Goals Addressed Social Determinants of Health: Pt denies having concerns with access to food, transportation, or housing. MOB has diapers, safe sleep location, bottles, clothing, and car seat for . MOB reports no barriers to accessing follow up care for herself and her children. Strengths MOB is open and receptive to Social Work intervention, education, and resources. Safe Discharge Plan Mother bonding well with . Preparations have been made at home for and social supports are available. Follow-up medical care has been arranged. Family is connected to resources and will utilize services as needed. There are no concerns for a safe discharge for with family. Social Work will follow for support and additional needs should they arise. Liliam CHEN, [facility] Clinical Child Development Specialist Women and Infants Units OVOLTAIC INSTALLER * Plan of Care - Mary Goode RN - 04/03/2024 8:18 PM CST Problem: Additional OB Conditions Goal: Will remain free from complications related to obstetric conditions Outcome: Progressing Problem: Fluid Volume Goal: Will maintain adequate fluid volume Outcome: Progressing Problem: Skin Integrity Impairment Risk Goal: Mobility will improve Outcome: Progressing Goal: Understanding of ways to prevent future skin breakdown will improve Outcome: Progressing Goal: Nutritional status will improve Outcome: Progressing Goal: Risk for impaired skin integrity will decrease Outcome: Progressing Problem: Care Goal: Risk for complications during the period will decrease Outcome: Progressing Goal: Ability to identify and utilize resources during the phase will improve Outcome: Progressing Goal: Ability to demonstrate positive interaction with the child will improve Outcome: Progressing Goal: Ability to participate in self care as condition permits will improve Outcome: Progressing Problem: Skin/Tissue Integrity Goal: Incisions, wounds, or drain sites healing without S/S of infection Outcome: Progressing Goals: Clinical Goals for the Shift: VSS, pain control, rest, bonding Plant Production Manager Patient Centered Goal for Treatment: Safe discharge home Summary: Patient progressing toward care plan goals. OVOLTAIC INSTALLER * Plan of Care - Latoya Gould RN - 04/03/2024 1:57 PM CST Problem: Additional OB Conditions Goal: Will remain free from complications related to obstetric conditions Outcome: Progressing Problem: Fluid Volume Goal: Will maintain adequate fluid volume Outcome: Progressing Problem: Skin Integrity Impairment Risk Goal: Mobility will improve Outcome: Progressing Goal: Understanding of ways to prevent future skin breakdown will improve Outcome: Progressing Goal: Nutritional status will improve Outcome: Progressing Goal: Risk for impaired skin integrity will decrease Outcome: Progressing Problem: Care Goal: Risk for complications during the period will decrease Outcome: Progressing Goal: Ability to identify and utilize resources during the phase will improve Outcome: Progressing Goal: Ability to demonstrate positive interaction with the child will improve Outcome: Progressing Goal: Ability to participate in self care as condition permits will improve Outcome: Progressing Goals: Clinical Goals for the Shift: vss, pain control, healthy mom, healthy baby Retirement Patient Centered Goal for Treatment: healthy mom/baby Summary: admit [id number] OVOLTAIC INSTALLER * Hospital Course - Jessica Hansen MD - 04/03/2024 12:42 PM CST Mary Singh is a 24 y.o. female at 39w0d weeks gestation, dated by L=1 with Estimated Date of Delivery: 04/10/24. Her was notable for history of hemorrhage, family history of NTD, Rh negative and isolated elevated BP. Vertex presentation and GBS positive confirmed on admission. She presented for induction of labor. Her induction was started with oxytocin and she underwent AROM. Epidural was placed for anesthesia. Patient progressed to complete and had an uncomplicated vaginal delivery a viable male with apgars 8 and 9 at one and five minutes of life respectively. See L&D delivery note for full details. The patient was transferred to . Her course was uncomplicated. Prior to discharge, her pain was well controlled, she was voiding, passing gas, ambulating, and meeting all post milestones. #Post DVT prophylaxis: The patient has the following MAJOR risk factors BMI >/= 40 and the following MINOR risk factors none. enoxaparin 40 mg BID ordered for VTE prophylaxis. #Rh neg: s/p Rhogam 01/17/24, received rhogam pp per lab workup. #Headache: controlled on topomax outside of , Mg/B6 during , compazine PRN #Mother/Baby: The patient has chosen to formula feed her infant and has chosen an interval BTL withDMPA as bridge for contraception. OVOLTAIC INSTALLER OVOLTAIC INSTALLER OVOLTAIC INSTALLER OVOLTAIC INSTALLER * L&D Delivery Note - Geeta Zhang MD - 04/03/2024 11:21 AM PHOTOVOLTAIC INSTALLER [facility] Vaginal Delivery Note Patient's Name: Mary Singh : 2000 Attending: Geeta Zhang Assisting: Noemi Collins MD, Clinic: [facility] Primary Diagnoses: Rh negative History of PPH Headaches Delivery method: Spontaneous vaginal delivery Anesthesia: Epidural [254] Membranes: Artificial rupture, clear fluid. Time ruptured prior to delivery: 3h 31m Antibiotics: yes, PCN for GBS + status Delivery Date: 04/03/2024 Infant Delivery Time: 11:09 AM Placenta Delivery Date & Time: 04/03/2024 11:16 AM Cord: 3 vessels [3] Delayed cord clamping: Yes, 60 seconds. Episiotomy: No Laceration: right periurethral and left labial QBL: 223 mL : livingNo weight on file.male APGARs: 8 / 9 Disposition: Nursery Labor Summary: Mary Singh is a 24 y.o. female at 39w0d weeks gestation, dated by L=1 with Estimated Date of Delivery: 04/10/24. Her was notable for history of hemorrhage, family history of NTD, Rh negative and isolated elevated BP. Vertex presentation and GBS positive confirmed on admission. She presented for induction of labor. Her induction was started with oxytocin and she underwent AROM. Epidural was placed for anesthesia. Patient progressed to complete and had an uncomplicated vaginal delivery. The cord was clamped and cut and the baby was handed to mother for skin to skin. The third stage was actively managed with external uterine massage, gentle cord traction and pitocin. The placenta was delivered spontaneously and intact. A right periurethral and left labial laceration was repaired in the usual fashion. Excellent hemostasis was noted. All counts were correct before and after the delivery. Additional Procedures Performed: None Description of Additional Procedures Performed: N/A Complications: None Description of Complications: N/A Dr. Geeta Zhang was present for the delivery. Noemi Collins MD 04/03/24 I was present for the vaginal delivery, placental delivery and laceration repair Tamia Zhang MA MD [employer] Division of Maternal- Medicine and Ultrasound Department of Obstetrics and Gynecology [facility] 04/03/2024 OVOLTAIC INSTALLER OVOLTAIC INSTALLER * Plan of Care - Leelee Goodman RN - 04/03/2024 8:21 AM CST Problem: Induction Goal: Successful induction of labor Outcome: Progressing Problem: Labor and Delivery Goal: Will progress through the normal stages of labor and achieve successful delivery within minimal maternal and complications Outcome: Progressing Problem: Additional OB Conditions Goal: Will remain free from complications related to obstetric conditions Outcome: Progressing Problem: Fluid Volume Goal: Will maintain adequate fluid volume Outcome: Progressing Problem: Skin Integrity Impairment Risk Goal: Mobility will improve Outcome: Progressing Goal: Understanding of ways to prevent future skin breakdown will improve Outcome: Progressing Goal: Nutritional status will improve Outcome: Progressing Goal: Risk for impaired skin integrity will decrease Outcome: Progressing Goals: Clinical Goals for the Shift: vss, pain control, healthy mom, healthy baby Retirement Patient Centered Goal for Treatment: healthy mom/baby OVOLTAIC INSTALLER * Plan of Care - Becca Maier RN - 04/02/2024 11:05 PM CST Goals: Problem: Induction Goal: Successful induction of labor Outcome: Progressing Problem: Labor and Delivery Goal: Will progress through the normal stages of labor and achieve successful delivery within minimal maternal and complications Outcome: Progressing Problem: Additional OB Conditions Goal: Will remain free from complications related to obstetric conditions Outcome: Progressing Problem: Fluid Volume Goal: Will maintain adequate fluid volume Outcome: Progressing Clinical Goals for the Shift: healthy mom, healthy baby, birthday Summary: Pt progressing towards all goals. OVOLTAIC INSTALLER documented in this encounter Plan of Treatment Not on file documented as of this encounter Procedures Procedure Name Priority Date/Time Associated Diagnosis Comments RH IMMUNE GLOBULIN EVAL Timed 04/04/2024 6:01 AM PHOTOVOLTAIC INSTALLER BLEED SCREEN Timed 04/04/2024 6: 01 AM PHOTOVOLTAIC INSTALLER ABO/RH Timed 04/04/2024 6:01 AM PHOTOVOLTAIC INSTALLER US OB LIMITED IP Routine 04/03/2024 7:59 AM PHOTOVOLTAIC INSTALLER Encounter for induction of labor EGFR STAT 04/02/2024 11:32 PM PHOTOVOLTAIC INSTALLER RPR STAT 04/02/2024 11:32 PM PHOTOVOLTAIC INSTALLER CBC WITHOUT DIFFERENTIAL STAT 04/02/2024 11:32 PM PHOTOVOLTAIC INSTALLER TYPE AND SCREEN STAT 04/02/2024 11:32 PM PHOTOVOLTAIC INSTALLER COMPREHENSIVE METABOLIC PANEL STAT 04/02/2024 11:32 PM PHOTOVOLTAIC INSTALLER documented in this encounter Results * Bleed Screen (04/04/2024 6:01 AM PHOTOVOLTAIC INSTALLER) Bleed Screen Negative Blood 04/04/2024 6:01 AM PHOTOVOLTAIC INSTALLER 04/04/2024 6:12 AM PHOTOVOLTAIC INSTALLER us Noemi Collins MD LAB BLOOD BANK TEST ORDERABLES Final Result [facility] Department [place] [address] * ABO/Rh (04/04/2024 6:01 AM PHOTOVOLTAIC INSTALLER) ABO Rh O Negative Blood 04/04/2024 6:01 AM PHOTOVOLTAIC INSTALLER 04/04/2024 6:12 AM PHOTOVOLTAIC INSTALLER Noemi Collins MD LAB BLOOD BANK TEST ORDERABLES Final Result Performing Organization Address [facility] de Phone Number [facility] [place] [address] * Rh Immune Globulin Eval (04/04/2024 6:01 AM PHOTOVOLTAIC INSTALLER) Pathologist [facility] RhIg Administration 1 vial of Rh Immune Globulin (300 mcg dose) RhIg Eligible Yes, eligible [facility] Blood 04/04/2024 6:01 AM PHOTOVOLTAIC INSTALLER 04/04/2024 6:12 AM PHOTOVOLTAIC INSTALLER Narrative [facility] - 04/04/2024 6:25 AM PHOTOVOLTAIC INSTALLER Number of weeks ?->20 weeks or greater antibody screen result:->Negative Rhogam given?->Given Date Given?->01/17/24 Number of vials requested:->[address] [facility] Noemi Collins MD LAB BLOOD BANK TEST ORDERABLES Final Result Performing Organization Address [facility] [place] [address] * US Ob Limited (04/03/2024 7:59 AM PHOTOVOLTAIC INSTALLER) Anatomical Region Laterality Modality Abdomen N/A Ultrasound Narrative 04/03/2024 7:59 AM PHOTOVOLTAIC INSTALLER Vertex I have reviewed the images and agree with above. Noemi Collins MD Noemi Collins MD IMG OB US PROCEDURES Final Result * eGFR (04/02/2024 11:32 PM PHOTOVOLTAIC INSTALLER) eGFR >90 >=60 mL/min/1. 73 m2 Comment: [...] reviewed 2021. Blood 04/02/2024 11:3 2 PM PHOTOVOLTAIC INSTALLER 04/02/2024 11:45 PM PHOTOVOLTAIC INSTALLER us Sudha Abarca MD LAB BLOOD ORDERABLES Final Result Performing Organization Address City/State/[facility] Co de Phone Number [facility] [place] [address] * (ABNORMAL) Comprehensive metabolic panel (04/02/2024 11:32 PM PHOTOVOLTAIC INSTALLER) Pathologist [facility] Sodium 138 135 - 145 mmol/L Potassium, pl 4.0 3.3 - 4.9 mmol/L [facility] Chloride 106 97 - 110 mmol/L [facility] CO2 22 22 - 32 mmol/L [facility] Anion gap 10 2 - 15 mmol/L [facility] BUN 6 6 - 25 mg/dL [facility] Creatinine 0.54(L) 0.60 - 1.10 mg/dL [facility] Glucose 103 70 - 199 mg/dL [facility] Comment: Interpretive Data Fasting glucose [...] 2022. Calcium 9.3 8.5 - 10.3 mg/dL [facility] Bilirubin, total 0.3 0.1 - 1.2 mg/dL [facility] Protein, pl 6.6 6.5 - 8.5 g/dL [facility] Albumin 3.6 3.5 - 5.0 g/dL [facility] Alk phos 110 40 - 130 Units/L [facility] ALT 21 7 - 45 Units/L [facility] AST 26 10 - 45 Units/L [facility] Blood 04/02/2024 11:3 2 PM PHOTOVOLTAIC INSTALLER 04/02/2024 11:45 PM PHOTOVOLTAIC INSTALLER Sudha Abarca MD LAB BLOOD ORDERABLES Final Result [facility] Department [place] [address] * (ABNORMAL) CBC without differential (04/02/2024 11:32 PM PHOTOVOLTAIC INSTALLER) Pathologist [facility] WBC 9.1 3.8 - 9.9 K/cumm Hgb 11.8(L) 11.9 - 15.5 g/dL [facility] Hct 34.8(L) 35.6 - 45.5 % [facility] Plt 228 150 - 400 K/cumm [facility] MPV 10.1 9.1 - 12.3 fL [facility] RBC 3.87(L) 3.90 - 5.20 M/cumm [facility] MCV 89.9 81.3 - 96.4 fL [facility] MCH 30.5 27.1 - 33.3 pg [facility] MCHC 33.9 32.3 - 35.7 g/dL [facility] RDW CV 13.5 11.1 - 14.9 % [facility] RDW SD 44.2 35.7 - 48.1 fL [facility] NRBC abs 0.00 0.00 - 0.01 K/cumm [facility] Blood 04/02/2024 11:3 2 PM PHOTOVOLTAIC INSTALLER 04/02/2024 11:45 PM PHOTOVOLTAIC INSTALLER Sudha Abarca MD LAB BLOOD ORDERABLES Final Result Performing Organization Address [facility] Co de Phone Number [facility] [place] [address] * Type and screen (04/02/2024 11:32 PM PHOTOVOLTAIC INSTALLER) Jorge, indirect Negative Comment:Patient has previous antibody history ABO Rh O Negative [facility] Blood 04/02/2024 11:3 2 PM PHOTOVOLTAIC INSTALLER 04/03/2024 12:12 AM PHOTOVOLTAIC INSTALLER Narrative [facility] - 04/03/2024 1:19 AM PHOTOVOLTAIC INSTALLER Has the patient had Daratumumab or Isatuximab in the past 6 months?->Unknown Sudha Abarca MD LAB BLOOD BANK TEST O RDERABLES Final Result [facility] [place] [address] * RPR Blood (04/02/2024 11:32 PM PHOTOVOLTAIC INSTALLER) RPR Nonreactive Nonreactive Blood 04/02/2024 11:3 2 PM PHOTOVOLTAIC INSTALLER 04/02/2024 11:45 PM PHOTOVOLTAIC INSTALLER Sudha Abarca MD LAB MICROBIOLOGY - [facility] ORDERABLES Final Result S[facility] FARAH Bebe [facility] Department [place] [address] documented in this encounter Visit Diagnoses Diagnosis state- Primary Routine follow-up Encounter for induction of labor documented in this encounter Administered Medications Inactive Administered Medications - up to 3 most recent administrations Medication Order MAR Action Action Date Dose Rate Site acetaminophen (TYLENOL) tablet 650 mg 650 mg, oral, Every 6 hours PRN, 1st line for pain, Starting on Mon04/03/24 at 1134 Given 04/04/2024 2:30 AM PHOTOVOLTAIC INSTALLER 650 mg Given 04/03/2024 7:25 PM PHOTOVOLTAIC INSTALLER 650 mg dextrose 5% and sodium chloride 0.9% infusion (premix) 75 mL/hr, intravenous, Continuous, Starting on Mon04/03/24 at 0015 Rate/Dose Verify 04/03/2024 3:00 AM PHOTOVOLTAIC INSTALLER 75 mL/hr 75 mL/hr New Bag 04/03/2024 12:10 AM PHOTOVOLTAIC INSTALLER 75 mL/hr 75 mL/hr docusate sodium (COLACE) capsule 100 mg 100 mg, oral, 2 times daily, First dose on Mon04/03/24 at 2100, Hold if diarrhea., Indications: constipation, Stool SoftenerIndications:constipation,Stool Softener Given 04/04/2024 7:37 AM PHOTOVOLTAIC INSTALLER 100 mg Given 04/03/2024 8:33 PM PHOTOVOLTAIC INSTALLER 100 mg enoxaparin (LOVENOX) syringe 40 mg 40 mg, subcutaneous, Every 12 hours scheduled, First dose on Iwona 04/04/24 at 0900, Indications: Deep Vein Thrombosis PreventionIndications:Deep Vein Thrombosis Prevention Given 04/04/2024 7:37 AM PHOTOVOLTAIC INSTALLER 40 mg Right Upper Arm fentaNYL-BUPivacaine preservative free in 0.9% sodium chloride 2 mcg/mL- 0.1 % cassette (premix) Continuous Rate: 8 mL/hr, Patient Bolus Dose: 5 mL, Lockout Interval: 15 Minutes, epidural, Continuous, Starting on Mon04/03/24 at 0445, Until Mon04/03/24 at 1935, 100 mL, Indications: Pain, Stop epidural infusion after placental delivery and any indicated repair is complete., RoutineIndications:Pain New Syringe/Cartridge 04/03/2024 10:52 AM PHOTOVOLTAIC INSTALLER Rate/Dose Change 04/03/2024 5:02 AM PHOTOVOLTAIC INSTALLER 8 mL/hr 8 mL/hr Bolus 04/03/2024 5:01 AM PHOTOVOLTAIC INSTALLER 5 mL ibuprofen (ADVIL,MOTRIN) tablet 600 mg 600 mg, oral, Every 6 hours PRN, other, cramping, Starting on Mon04/03/24 at 1134, Indications: CrampsIndications:Cramps Given 04/04/2024 2:30 AM PHOTOVOLTAIC INSTALLER 600 mg Given 04/03/2024 7:25 PM PHOTOVOLTAIC INSTALLER 600 mg medroxyPROGESTERone (DEPO-PROVERA) 150 mg/mL injection 150 mg 150 mg, intramuscular, During hospitalization, contraception, Starting on Iwona 04/04/24 at 0726, For 1 dose, Shake well Given 04/04/2024 7:55 AM PHOTOVOLTAIC INSTALLER 150 mg Left Ventrogluteal ondansetron (ZOFRAN) injection 4 mg 4 mg, intravenous, Administer over 2 Minutes, Every 6 hours PRN, nausea, vomiting, if not tolerating PO, Starting on Mon04/03/24 at 1935, Indications: Nausea and VomitingIndications:Na usea and Vomiting ondansetron ODT (ZOFRAN-ODT) disintegrating tablet 4 mg 4 mg, oral, Every 6 hours PRN, nausea, vomiting, Starting on Mon04/03/24 at 1935, Indications: Nausea and VomitingIndications:Na usea and Vomiting oxytocin 30 unit/500 mL (0.06 unit/mL) in sodium chloride 0.9% (premix) solution 95-334 milliunits/min (95-334 mL/hr), 0.06 units/mL, intravenous, Continuous, Starting on Mon04/03/24 at 1145, Until Mon04/03/24 at 1510, After delivery of placenta initiate at 334 janine-units/minutes for 30 minutes then decrease infusion to 95 janine-units/min for 3.5 hours., Routine Rate/Dose Change 04/03/2024 11:41 AM PHOTOVOLTAIC INSTALLER 95 milliunits /min 95 mL/hr New Bag 04/03/2024 11:11 AM PHOTOVOLTAIC INSTALLER 334 milliunits/min 334 mL/hr oxytocin 30 unit/500 mL (0.06 unit/mL) in sodium chloride 0.9% (premix) solution 0-40 milliunits/min (0-40 mL/hr), 0.06 units/mL, intravenous, Titrated, Starting on Mon04/03/24 at 0015, Until Mon04/03/24 at 1935, Indications: Induction of Labor, Titration instructions: Titrate, Initial Dose: 2 milliunits/min, Titrate: Up/Down, Titrate by: 2 milliunits/min, Every: 30 minutes, Goal: Less than or equal to 5 contractions per 10 minutes, Maximum dose = 40 milliunit/min DO NOT USE FOR Stop oxytocin infusion and notify provider for category III heart rate (FHR) tracing or prolonged FHR deceleration. If oxytocin has been stopped for less than 30 minutes and the heart rate tracing is reassuring and contraction pattern is normal, restart oxytocin titration at half of the prior dose. If oxytocin has been stopped for greater than 30 minutes and the heart rate tracing is reassuring and contraction pattern is normal, restart oxytocin titration at 2 milliunits/minute?? , RoutineIndications:Inducti on of Labor Rate/Dose Change 04/03/2024 7:07 AM PHOTOVOLTAIC INSTALLER 14 milliunits/min 14 mL/hr Rate/Dose Verify 04/03/2024 3:00 AM PHOTOVOLTAIC INSTALLER 12 milliunits/min 12 mL/hr Rate/Dose Change 04/03/2024 2:45 AM PHOTOVOLTAIC INSTALLER 12 milliunits/min 12 mL/hr penicillin G potassium 3 million units/50 mL in dextrose (premix) 3 Million Units 3 Million Units, intravenous, Administer over 30 Minutes, Every 4 hours, First dose on Mon04/03/24 at 0445, L&D Pre-Delivery, Until delivery, Indications: Prevention of Group B Streptococcal InfectionIndications:Prevention of Group B Streptococcal Infection New Bag 04/03/2024 9:13 AM PHOTOVOLTAIC INSTALLER 3 Million Units New Bag 04/03/2024 5:13 AM PHOTOVOLTAIC INSTALLER 3 Million Units penicillin G potassium 5 million units/50 mL in sterile water (premix) 5 Million Units 5 Million Units, intravenous, Administer over 30 Minutes, Once, On Mon04/03/24 at 0015, For 1 dose, L&D Pre-Delivery, Indications: Prevention of Group B Streptococcal InfectionIndications:P revention of Group B Streptococcal Infection New Bag 4 12:11 AM PHOTOVOLTAIC INSTALLER 5 Million Units PNV with dnugjxm-gtiq-VG tablet 1 tablet 1 tablet, oral, Daily, First dose on Mon04/03/24 at 2014, Begin when normal bowel activity resumes., Indications: Vitamin Deficiency PreventionIndications: Vitamin Deficiency Prevention Given 4 7:37 AM PHOTOVOLTAIC INSTALLER 1 tablet polyethylene glycol (MIRALAX) packet 17 g 17 g, oral, Daily, First dose on Mon04/03/24 at 2014, Hold if diarrhea., Indications: constipationIndication s:constipation Given 4 7:37 AM PHOTOVOLTAIC INSTALLER 17 g Rho(D) immune globulin (HyperRHO S/D, RhoGAM) injection 300 mcg 300 mcg, intramuscular, Once, On Iwona 04/04/24 at 0830, For 1 dose, Refrigerate, Indications: Prevention of Rhesus Isoimmunization affecting PregnancyIndications:P revention of Rhesus Isoimmunization affecting Given 4 7:53 AM PHOTOVOLTAIC INSTALLER 300 mcg Right Ventrogluteal sodium chloride 0.9% bolus 1,000 mL 1,000 mL, intravenous, Once, On Mon04/03/24 at 0600, For 1 dose New Bag 4 5:20 AM PHOTOVOLTAIC INSTALLER 1,000 mL sodium chloride 0.9% bolus 600 mL 600 mL, intrauterine, at 600 mL/hr, Administer over 1 Hours, Once, On Mon04/03/24 at 0945, For 1 dose New Bag 4 9:13 AM PHOTOVOLTAIC INSTALLER 600 mL 600 mL/hr sodium chloride 0.9% infusion 180 mL/hr, intrauterine, Continuous, Starting on Mon04/03/24 at 0945 Rate/Dose Change 4 10:08 AM PHOTOVOLTAIC INSTALLER 180 mL/hr 180 mL/hr documented in this encounter Discontinued Medications Medication Sig Discontinue Reason Start Date End Da te aspirin 81 mg enteric coated tablet Take 1 tablet (81 mg total) by mouth daily Stop Taking at Discharge 10/13/2023 04/04/2024 [facility] COVID-19 Ag Self Test kit TEST DIRECTED TODAY Stop Taking at Discharge 01/26/2024 04/04/2024 magnesium oxide (MAG-OX) 400 mg (241.3 mg elemental magnesium) tablet TAKE 1 TABLET BY MOUTH EVERY DAY Stop Taking at Discharge 02/16/2024 04/04/2024 documented as of this encounter Active and Recently Administered Medications Times are shown in PHOTOVOLTAIC INSTALLER. Scheduled Medication Order 04/02/2024 04/03/2024 04/04/2024 docusate sodium (COLACE) capsule 100 mg 100 mg, oral, 2 times daily, First dose on Mon04/03/24 at 2100, Hold if diarrhea., Indications: constipation, Stool Softener 2032 (Given - Provider: Mary Goode RN) 0737 (Given - Provider: Iris Witt, TRAY) enoxaparin (LOVENOX) syringe 40 mg 40 mg, subcutaneous, Every 12 hours scheduled, First dose on [place] 04/04/24 at 0900, Indications: Deep Vein Thrombosis Prevention 0737 (Given - Provid er: Iris Witt RN) penicillin G potassium 3 million units/50 mL in dextrose (premix) 3 Million Units (CANCELED)(Linked Group 1) 3 Million Units, intravenous, Administer over 30 Minutes, Every 4 hours, First dose on Mon04/03/24 at 0445, L&D Pre-Delivery, Until delivery, Indications: Prevention of Group B Streptococcal Infection 0513 (New Bag - Provider: Estrella Brock RN)0913 (New Bag - Provider: Leelee Goodman, TRAY)1224 (Not Given - Provider: Leelee Goodman, TRAY - Reason: Contraindicated) penicillin G potassium 5 million units/50 mL in sterile water (premix) 5 Million Units (COMPLETED)(Linked Group 1) 5 Million Units, intravenous, Administer over 30 Minutes, Once, On Mon04/03/24 at 0015, For 1 dose, L&D Pre-Delivery, Indications: Prevention of Group B Streptococcal Infection 0011 (New Bag - Provider: Becca Maier, TRAY) PNV with gkvmrbe-zqpd-UK tablet 1 tablet 1 tablet, oral, Daily, First dose on Mon04/03/24 at 2015, Begin when normal bowel activity resumes., Indications: Vitamin Deficiency Prevention 1924 (Not Given - Provider: Mary Goode RN - Reason: Other - Comment: Start in AM) 0737 (Given - Provider: Iris Witt RN) polyethylene glycol (MIRALAX) packet 17 g 17 g, oral, Daily, First dose on Mon04/03/24 at 2015, Hold if diarrhea., Indications: constipation 1925 (Not Given - Provider: Mary Goode RN - Reason: Other - Comment: Start in AM) 0737 (Given - Provider: Iris Witt, TRAY) Rho(D) immune globulin (HyperRHO S/D, RhoGAM) injection 300 mcg (COMPLETED) 300 mcg, intramuscular, Once, On Iw[place] 04/04/24 at 0830, For 1 dose, Refrigerate, Indications: Prevention of Rhesus Isoimmunization affecting 0753 (Given - Provid er: Iris Witt RN) sodium chloride 0.9% bolus 1,000 mL (COMPLETED) 1,000 mL, intravenous, Once, On Mon04/03/24 at 0600, For 1 dose 0520 (New Bag - Provider: Estrella Brock RN) sodium chloride 0.9% bolus 600 mL (COMPLETED) 600 mL, intrauterine, at 600 mL/hr, Administer over 1 Hours, Once, On Mon04/03/24 at 0945, For 1 dose 0913 (New Bag - Provider: Leelee Goodman, TRAY) Continuous Medication Order 04/02/2024 04/03/2024 04/04/2024 dextrose 5% and sodium chloride 0.9% infusion (premix) (CANCELED) 75 mL/hr, intravenous, Continuous, Starting on Mon04/03/24 at 0015 0010 (New Bag - Provider: Becca Maier RN)0300 (Rate/Dose Verify - Provider: Becca Maier RN)1111 (Stopped - Provider: Leelee Goodman, TRAY) fentaNYL-BUPivacaine preservative free in 0.9% sodium chloride 2 mcg/mL- 0.1 % cassette (premix) (CANCELED) Continuous Rate: 8 mL/hr, Patient Bolus Dose: 5 mL, Lockout Interval: 15 Minutes, epidural, Continuous, Starting on Mon04/03/24 at 0445, Until Mon04/03/24 at 1935, 100 mL, Indications: Pain, Stop epidural infusion after placental delivery and any indicated repair is complete., Routine 0458 (New Bag - Provider: Kash Garcia MD)0501 (Bolus - Provider: Kash Garcia MD)0502 (Rate/Dose Change - Provider: Kash Garcia MD)1052 (New Syringe/Cartridge - Provider: Leelee Goodman, TRAY)1120 (Stopped (Dual Sign) - Provider: Leelee Goodman, TRAY) oxytocin 30 unit/500 mL (0.06 unit/mL) in sodium chloride 0.9% (premix) solution (CANCELED) 95-334 milliunits/min (95-334 mL/hr), 0.06 units/mL, intravenous, Continuous, Starting on Mon04/03/24 at 1145, Until Mon04/03/24 at 1510, After delivery of placenta initiate at 334 janine-units/minutes for 30 minutes then decrease infusion to 95 janine-units/min for 3.5 hours., Routine 1111 (New Bag - Provider: Leelee Goodman, TRAY)1141 (Rate/Dose Change - Provider: Leelee Goodman, TRAY)1925 (Stopped - Provider: Mary Goode RN - Comment: Infusion not running on transfer of care.) oxytocin 30 unit/500 mL (0.06 unit/mL) in sodium chloride 0.9% (premix) solution (CANCELED)(Linked Group 2) 0-40 milliunits/min (0-40 mL/hr), 0.06 units/mL, intravenous, Titrated, Starting on Mon04/03/24 at 0015, Until Mon04/03/24 at 1935, Indications: Induction of Labor, Titration instructions: Titrate, Initial Dose: 2 milliunits/min, Titrate: Up/Down, Titrate by: 2 milliunits/min, Every: 30 minutes, Goal: Less than or equal to 5 contractions per 10 minutes, Maximum dose = 40 milliunit/min DO NOT USE FOR Stop oxytocin infusion and notify provider for category III heart rate (FHR) tracing or prolonged FHR deceleration. If oxytocin has been stopped for less than 30 minutes and the heart rate tracing is reassuring and contraction pattern is normal, restart oxytocin titration at half of the prior dose. If oxytocin has been stopped for greater than 30 minutes and the heart rate tracing is reassuring and contraction pattern is normal, restart oxytocin titration at 2 milliunits/minute?? , Routine 0015 (New Bag - Provider: Becca Maier RN - Comment: verified by Steve FELIZ)0045 (Rate/Dose Change - Provider: Becca Maier RN)0115 (Rate/Dose Change - Provider: Becca Maier RN)0145 (Rate/Dose Change - Provider: Becca Maier RN)0215 (Rate/Dose Change - Provider: Becca Maier RN)0245 (Rate/Dose Change - Provider: Becca Maier RN)0300 (Rate/Dose Verify - Provider: Becca Maier RN)0707 (Rate/Dose Change - Provider: Leelee Goodman, TRAY)1111 (Stopped - Provider: Leelee Goodman, TRAY) sodium chloride 0.9% infusion (CANCELED) 180 mL/hr, intrauterine, Continuous, Starting on Mon04/03/24 at 0945 1008 (Rate/Dose Change - Provider: Leelee Goodman, TRAY)1925 (Stopped - Provider: Mary Goode RN - Comment: Infusion not running upon transfer of care.) PRN Medication Order 04/02/2024 04/03/2024 04/04/2024 acetaminophen (TYLENOL) tablet 650 mg 650 mg, oral, Every 6 hours PRN, 1st line for pain, Starting on Mon04/03/24 at 1134 1925 (Given - Provider: Mary Goode RN) 0230 (Given - Provider: Mary Goode RN) benzocaine-menthoL (DERMOPLAST) 20-0.5 % topical spray 1 spray 1 spray, topical, As needed, other, perianal area for pain, Starting on Mon04/03/24 at 1935, Up to 6 times a day., Apply to affected area: perineum, Indications: Minor Skin Wound Pain calcium carbonate (TUMS) chewable tablet 500 mg 500 mg, oral, 4 times daily PRN, heartburn, Starting on Mon04/03/24 at 1935, Indications: Dyspepsia hydrocortisone (ANUSOL-HC) 2.5 % rectal cream rectal, 3 times daily PRN, hemorrhoids, Starting on Mon04/03/24 at 1935, Indications: Hemorrhoids ibuprofen (ADVIL,MOTRIN) tablet 600 mg 600 mg, oral, Every 6 hours PRN, other, cramping, Starting on Mon04/03/24 at 1134, Indications: Cramps 1925 (Given - Provider: Mary Goode, RN) 0230 (Given - Provider: Mary Goode, TRAY) ncrvpsb-rzcen-dytawox (MMR) 1,000-12,500 TCID50/0.5 mL live vaccine 0.5 mL 0.5 mL, subcutaneous, During hospitalization, immunization, Starting on Mon04/03/24 at 193, For 1 dose, If not rubella immune. Warning: This is a live or live attenuated vaccine. Refrigerate. Two-component vaccine. Must be reconstituted with diluent provided. Document the NDC, Lot number, expiration date from the DRY POWDER vial component at administration., Indications: Ieufhqe-Rglbs-Ignugdr Vaccination medroxyPROGESTERone (DEPO-PROVERA) 150 mg/mL injection 150 mg (COMPLETED) 150 mg, intramuscular, During hospitalization, contraception, Starting on Mon04/04/24 at 0726, For 1 dose, Shake well 0755 (Given - Provider: Iris Witt RN) ondansetron (ZOFRAN) injection 4 mg(Linked Group 3) 4 mg, intravenous, Administer over 2 Minutes, Every 6 hours PRN, nausea, vomiting, if not tolerating PO, Starting on Mon04/03/24 at 1935, Indications: Nausea and Vomiting ondansetron ODT (ZOFRAN-ODT) disintegrating tablet 4 mg(Linked Group 3) 4 mg, oral, Every 6 hours PRN, nausea, vomiting, Starting on Mon04/03/24 at 1935, Indications: Nausea and Vomiting polyethylene glycol (MIRALAX) packet 17 g 17 g, oral, Daily PRN, constipation, Starting on Mon04/03/24 at 1935, Indications: constipation Tdap (BOOSTRIX) 2.5-8-5 Lf-mcg-Lf/0.5mL vaccine 0.5 mL 0.5 mL, intramuscular, During hospitalization, immunization, Starting on Mon04/03/24 at 1935, For 1 dose, If not immune. Refrigerate, Indications: Xdyftzcviy-Dtbhtzpew-Gbunpin Combined Prevention varicella zoster (VARIVAX) vaccine - live 0.5 mL 0.5 mL, subcutaneous, During hospitalization, immunization, Starting on Mon04/03/24 at 193, For 1 dose, if not immune Warning: This is a live or live attenuated vaccine. Do not administer to individuals who are immunodeficient or immunosuppressed or to women. Refrigerate. Two-component vaccine. Must be reconstituted with diluent provided. Document the MEC, Lot number, expiration date from the DRY POWDER vial component at administration., Indications: varicella prevention Linked Groups Order Group 1: penicillin G potassium 5 million units/50 mL in sterile water (premix) 5 Million Units (COMPLETED)Jump to med 5 Million Units, intravenous, Administer over 30 Minutes, Once, On Mon04/03/24 at 0015, For 1 dose, L&D Pre-Delivery, Indications: Prevention of Group B Streptococcal Infection Followed by penicillin G potassium 3 million units/50 mL in dextrose (premix) 3 Million Units (CANCELED)Jump to med 3 Million Units, intravenous, Administer over 30 Minutes, Every 4 hours, First dose on Mon04/03/24 at 0445, L&D Pre-Delivery, Until delivery, Indications: Prevention of Group B Streptococcal Infection Group 2: oxytocin 30 unit/500 mL (0.06 unit/mL) in sodium chloride 0.9% (premix) solution (CANCELED)Jump to med 0-40 milliunits/min (0-40 mL/hr), 0.06 units/mL, intravenous, Titrated, Starting on Mon04/03/24 at 0015, Until Mon04/03/24 at 1935, Indications: Induction of Labor, Titration instructions: Titrate, Initial Dose: 2 milliunits/min, Titrate: Up/Down, Titrate by: 2 milliunits/min, Every: 30 minutes, Goal: Less than or equal to 5 contractions per 10 minutes, Maximum dose = 40 milliunit/min DO NOT USE FOR Stop oxytocin infusion and notify provider for category III heart rate (FHR) tracing or prolonged FHR deceleration. If oxytocin has been stopped for less than 30 minutes and the heart rate tracing is reassuring and contraction pattern is normal, restart oxytocin titration at half of the prior dose. If oxytocin has been stopped for greater than 30 minutes and the heart rate tracing is reassuring and contraction pattern is normal, restart oxytocin titration at 2 milliunits/minute?? , Routine And Rupture of membranes Category 3 (III) heart rate tracing Prolonged or recurrent FHR decelerations Prolonged minimal variability Change in FHR baseline Uterine tachysystole requiring intervention ?? (CANCELED) Routine, Continuous, Starting on Mon04/02/24 at 2343, Until Specified, Rupture of membranes Category 3 (III) heart rate tracing Prolonged or recurrent FHR decelerations Prolonged minimal variability Change in FHR baseline Uterine tachysystole requiring intervention Group 3: ondansetron ODT (ZOFRAN-ODT) disintegrating tablet 4 mgJump to med 4 mg, oral, Every 6 hours PRN, nausea, vomiting, Starting on Mon04/03/24 at 1935, Indications: Nausea and Vomiting Or ondansetron (ZOFRAN) injection 4 mgJump to med 4 mg, intravenous, Administer over 2 Minutes, Every 6 hours PRN, nausea, vomiting, if not tolerating PO, Starting on Mon04/03/24 at 1935, Indications: Nausea and Vomiting documented in this encounter Orders Medications Ordered That Quincy ht Not Have Been Administered Count Last Ordered Date First Ordered Date benzocaine-menthoL (DERMOPLA ST) 20-0.5 % topical spray 1 spray 1 04/03/2024 calcium carbonate (TUMS) isa wable tablet 500 mg 1 04/03/2024 hydrocortisone (ANUSOL-HC) 2 .5 % rectal cream 1 04/03/2024 wligyuw-wwxjw-wyxvsuo (MMR) 1,000-12,500 TCID50/0.5 mL live vaccine 0.5 mL 1 04/03/2024 naloxone (NARCAN) 0.4 mg/mL injection 0.04-0.4 mg 1 04/03/2024 ondansetron (ZOFRAN) injection 4 mg 2 04/0304/02/2024 ondansetron ODT (ZOFRAN-ODT) disintegrating tablet 4 mg 2 04/03/2024 04/02/2024 polyethylene glycol (MIRALAX) packet 17 g 1 04/03/2024 Tdap (BOOSTRIX) 2.5-8-5 Lf-m cg-Lf/0.5mL vaccine 0.5 mL 1 04/03/2024 varicella zoster (VARIVAX) v accine - live 0.5 mL 1 04/03/2024 carboprost (HEMABATE) injection 250 mcg 1 1 06/02/2023 Carrier Fluids for Secondary Infusion - 0.9% Sodium Chloride 1 04/02/2024 cefOXitin (MEFOXITIN) 1,000 mg/10 mL in sterile water (premix) 1,000 mg 1 04/02/2024 lidocaine (PF) (XYLOCAINE) 1 0 mg/mL (1 %) preservative free injection 100 mg 1 04/02/2024 loperamide (IMODIUM) capsule 2 mg 1 024 methylergonovine (METHERGINE ) injection 0.2 mg 1 04/02/2024 miSOPROStoL (CYTOTEC) tablet 800 mcg 1 03/09 oxytocin (PITOCIN) injection 10 Units 1 sodium chloride 0.9% bolus 1,000 mL 2 04/02 sodium chloride 0.9% flush 0.5-20 mL 2 03/09 terbutaline (BRETHINE) injection 0.125 mg 1 04/02/2024 terbutaline (BRETHINE) injection 0.25 mg 1 04/02/2024 tranexamic acid (CYKLOKAPRON ) 1,000 mg/100 mL (10 mg/mL) in sodium chloride (premix) 1,000 mg 1 04/02/2024 Admission Count Last Ordered Date First Orde red Date ADMIT TO L&D INPATIENT 1 04/02/2024 Transfer Count Last Ordered Date First Orde red Date TRANSFER PATIENT TO NEW UNIT 1 04/03/2024 Discharge Count Last Ordered Date First Orde red Date DISCHARGE PATIENT 2 04/04/2024 CORE MEASURES Count Last Ordered Date First Ord ered Date REASON FOR NO VTE PROPHYLAXI S - HOSPITAL ADMISSION - MEDICATIONS 1 04/03/2024 REASON FOR NO VTE PROPHYLAXIS AT ADMISSION 1 04/02/2024 documented in this encounter Care Teams Manager Contracting Relationship Specialty Start Date End Date No, Physician PCP - General 12/03/23 Jarred Roy MD [address] [address] 01/30/19 Elma Echevarria NP 2 [facility] [address] [address] Nurse Practitioner General Surgery 12/16/19 documented as of this encounter
--- OUTSIDE RECORDS SUMMARY | 2024-05-10 20:15 | XMS_ITS | Referral Summary ---
Author Organization [facility] Address [address] [place] [address] Care Team Providers Care Roustabout Crew Name Role Phone Jarred Roy MD Unavailable [phone] Elma Echevarria NP Unavailable No, Physician Primary Care Provider [phone] Encounters Date Type Department Care Team Description 04/24/2024 Telephone Obstetrics and Gynecology Clinic [address] [place] [address] 3rd Floor [address] [place] [phone] Magui Vail 04/18/2024 11:55 AM CODING ANALYST Lab [facility] [address] [place] [address] Encounter for routine follow-up 04/18/2024 11:20 AM CODING ANALYST Office Visit [facility] [address] [place] [address] 7th Floor [address] [place] [address] Encounter for routine follow-up (Primary Dx) 04/02/2024 10:51 PM CODING ANALYST - 04/04/2024 2:57 PM CODING ANALYST Hospital Encounter [address] [address] Garret Victor MD Zofkie, Amanda Christine, MD Bligard, Katherine Hollister, MD Encounter for induction of labor (Primary Dx) Discharge Disposition: Discharge to home or self care 04/03/2024 4:20 AM CODING ANALYST Anesthesia Event [address] [address] Jese Espinoza MD Ukeje, Chideraa Cynthia, MD 04/01/[address] [address] Cassi French RN Scheduled Induction 03/27/2024 10:30 AM CODING ANALYST Clinical Support [facility] Obstetrics and Gynecology [address] [place] [address] [address] [place] [address] Obesity affecting , antepartum, unspecified obesity type (Primary Dx) 03/27/2024 10:00 AM CODING ANALYST Office Visit [facility] [address] [place] [address] 7th Floor [address] [place] [phone] Elevated blood pressure reading without diagnosis of hypertension (Primary Dx); Family history of spina bifida; History of hemorrhage, currently in first trimester; Obesity affecting in first trimester, unspecified obesity type; headache in second trimester; Proteinuria complicating in first trimester; Supervision of high-risk , first trimester 03/27/2024 9:08 AM CODING ANALYST - 03/27/2024 11:59 PM CODING ANALYST Hospital Encounter [facility] [address] [place] [address], [address] [place] [address], [address] [place] [address] Obesity affecting in first trimester, unspecified obesity type (Primary Dx) Discharge Disposition: Discharge to home or self care 03/23/2024 11:11 AM CODING ANALYST - 03/23/2024 1:21 PM CODING ANALYST Hospital Encounter [address] [address] Garret Victor MD Meka, MD Amari Fierro Bridget C., MD Discharge Disposition: Discharge to home or self care 03/20/2024 10:40 AM CODING ANALYST Office Visit [facility] [address] [place] [address] 7th Floor [address] [place] [address] Elevated blood pressure reading without diagnosis of hypertension (Primary Dx); Family history of spina bifida; History of hemorrhage, currently in first trimester; Obesity affecting in first trimester, unspecified obesity type; headache in second trimester; Supervision of high-risk , first trimester 03/20/2024 9:30 AM CODING ANALYST Clinical Support [facility] Obstetrics and Gynecology [address] [place] [address] [place] [phone] Obesity affecting , antepartum, unspecified obesity type (Primary Dx) 03/13/2024 10:34 AM CODING ANALYST - 03/13/2024 11:59 PM CODING ANALYST Hospital Encounter [address] [address] Supervision of high-risk , first trimester Discharge Disposition: Discharge to home or self care 03/13/2024 11:36 AM CODING ANALYST - 03/13/2024 2:22 PM CODING ANALYST Hospital Encounter [address] [address] Garret Victor MD Dombrowski, Michael McKinley, MD Discharge Disposition: Discharge to home or self care 03/13/2024 10:00 AM CODING ANALYST [facility] [address] [place] [address] [facility] Floor [address] [place] [phone] Elevated blood pressure reading without diagnosis of hypertension (Primary Dx); Family history of spina bifida; History of hemorrhage, currently in first trimester; Obesity affecting in first trimester, unspecified obesity type; headache in second trimester; Proteinuria complicating in first trimester; Supervision of high-risk , first trimester 03/13/2024 9:30 AM CODING ANALYST Clinical Support [facility] Obstetrics and Gynecology [address] [place] [address] Outpatient Health [address] [place] [phone] Obesity affecting , antepartum, unspecified obesity type (Primary Dx) 03/06/2024 9:30 AM CDT Clinical Support [facility] Obstetrics and Gynecology [address] [place] [address] Outpatient Health [address] [place] [phone] Obesity affecting , antepartum, unspecified obesity type (Primary Dx) 02/28/2024 Orders Only [facility] [place] [id number] [facility] Medical Office Building [address] [place] [phone] Nelsy FullerLaina 02/28/2024 11:05 AM CDT Lab [facility] Outpatient Health [address] [place] [address] Supervision of high-risk , first trimester 02/28/2024 10:45 AM CDT Office Visit [facility] [address] [place] [address] 7th Floor [address] [place] [address] Elevated blood pressure reading without diagnosis of hypertension (Primary Dx); Family history of spina bifida; History of hemorrhage, currently in first trimester; Obesity affecting in first trimester, unspecified obesity type; headache in second trimester; Proteinuria complicating in first trimester; Supervision of high-risk , first trimester 02/28/2024 9:59 AM CDT - 02/28/2024 11:59 PM CDT Hospital Encounter [facility] [address] [place] [address], 7th Floor, [address] [place] [address] Other obesity affecting in third trimester (Primary Dx) Discharge Disposition: Discharge to home or self care 02/14/2024 Orders Only [facility] [address] [place] [address] 7th Floor [address] [place] [address] Breanna Quijano RN 02/14/2024 9:15 AM CDT Office Visit [facility] [address] [place] [address] 7th Floor [address] [place] [address] Elevated blood pressure reading without diagnosis of hypertension (Primary Dx); Family history of spina bifida; History of hemorrhage, currently in first trimester; Obesity affecting in first trimester, unspecified obesity type; headache in second trimester; Proteinuria complicating in first trimester; Supervision of high-risk , first trimester from Last 3 Months Allergies No known active allergies Medications vitamin ferrous fumarate-folic () 28 mg iron- 800 mcg tablet Take 1 tablet every day by oral route. Active acetaminophen (TYLENOL) 325 mg tablet Take [...] interval tubal. To be set up in [facility] 3 for interval tubal. DMPA as bridge. # MOF: Formula feeding. Urine drug screen not indicated. Patient informed of results: N/A. # Post DVT prophylaxis: The patient has the following MAJOR risk factors BMI >/= 40 and the following MINOR risk factors none. enoxaparin 40 mg BID ordered for VTE prophylaxis. # Disposition: Follow up task sent to [facility] scheduling pool for appointments in 2 and 6 weeks. Desires discharge home today. #Rh neg: s/p Rhogam 01/17/24, for Rhogam prior to d/c #Headache: controlled on topomax outside of , Mg/B6 during , compazine PRN Service Coverage These phones are service phones and carried 28/11 in house: R1 (first call) [phone] R1 alt (second call) [phone] R4 (Chief) [phone] Proteinuria complicating in first trim brennan 10/04/2023 [...] Iron deficiency 11/19/2018 Migraine 11/19/2018 Astigmatism 09/18/2018 [id number] spots 09/18/2018 Vitamin D deficiency 09/18/2018 Chronic [...] trimester 10/04/2023 04/18/2024 Overview (03/27/2024): [x] Full [facility] Care as of 12/13/2023 [x] [employer] email sent 12/12 Referring Provider: Janett Robles [phone] [] or Medicare Insurance [x] Dating Criteria: [...] makes. She is considering exclusively pumping. [x] Travel Manager: [x] PP Depression Discussed: History of hemrachelle brannon, currently in first trimester 10/04/2023 04/18/2024 Overview [...] # Disposition: Follow up task sent to [facility] scheduling pool. Continue routine care. Pt prefers [...] [x] Method of feeding: Plans breast [] Travel Manager: [] Car seat: [] PP Depression Counseling [x] Attg visits (11/08) Closed nondisplaced fracture of medial cuneiform of right foot 06/03/2019 10/04/2023 Obesity 12/16/2016 08/26/2021 Overview (07/16/2021): - BMI 38 - A1c 03/2020 4.6 - GTT 91 - 3T growth 40% Plan: [] Routine PNC Immunizations Name Administration Dates Next Due DTaP [...] - will get at follow up appointment),07/09/2009,02/22/2000 Social History Tobacco Use Types Packs/Day Years Used Date Smoking Tobacco: Never Smokeless Tobacco: Never Tobacco Cessation:Counseling Given: Not Answered Alcohol Use Standard Drinks/Week Comments No 0 (1 standard drink = 0.6 oz pur e alcohol) [facility] Utilities Answer Date Recorded In the past 12 months has e [employer], gas, oil, or water [employer] threatened to shut off services in your [...] often do you attend chur ch or confucianist services? Never 04/04/2024 Do you belong to any clubs o r organizations such as judaism groups, unions, fraternal or athletic groups, or [...] to sleep or slept in a senior living (including now)? No 07/21/2021 [place] Depression Scale Answer Date Recorded [place] Depression Scale Total 4 04/18/2024 The thought [...] any time in the past 12 m [facility], were you homeless or living in a senior living (including now)? No 04/04/2024 Personal Safety Answer Date Recorded Have you ever been in or are you currently in a harmful physical or emotional relationship or is someone making you feel afraid or unsafe? Denies 04/03/2024 Comments No Sex and Gender Information Value Date Recorded Sex Assigned at Not on file Legal Sex Female 11:28 PM CODING ANALYST Gender Identity Not on file Sexual Orientation Not on file Last Filed Vital Signs Vital Sign Reading Time Taken Comments Blood Pressure 112/70 04/18/2024 11:27 AM CODING ANALYST Pulse 69 04/18/2024 11:27 AM CODING ANALYST Temperature 36.5 ??C (97.7 ??F) 04/04/2024 7:39 AM CS T Respiratory Rate 16 04/04/2024 7:39 AM CODING ANALYST Oxygen Saturation 98% 04/18/2024 11: 27 AM CODING ANALYST Inhaled Oxygen Concentration - - Weight 138.9 kg (306 lb 3.2 oz) 024 11:27 AM CODING ANALYST Height 165.1 cm (5' 5 ) 04/18/2024 11:2 7 AM CODING ANALYST Body Mass Index 50.95 04/18/2024 11:27 AM CODING ANALYST Plan of Treatment Not on file Procedures Procedure Name Priority Date/Time Associated Diagnosis Comments CBC WITHOUT DIFFERENTIAL Routine 04/18/2024 12:08 PM CODING ANALYST Encounter for routine follow-up FERRITIN Routine 04/18/2024 12:08 PM CODING ANALYST Encounter for routine follow-up BLEED SCREEN Timed 04/04/2024 6: 01 AM CODING ANALYST ABO/RH Timed 04/04/2024 6:01 AM CODING ANALYST RH IMMUNE GLOBULIN EVAL Timed 04/04/2024 6:01 AM CODING ANALYST US OB LIMITED IP Routine 04/03/2024 7:59 AM CODING ANALYST Encounter for induction of labor ANESTHESIA EPIDURAL BLOCK Routine 04/03/2024 5:15 AM CODING ANALYST EGFR STAT 04/02/2024 11:32 PM CODING ANALYST COMPREHENSIVE METABOLIC PANEL STAT 04/02/2024 11:32 PM CODING ANALYST CBC WITHOUT DIFFERENTIAL STAT 04/02/2024 11:32 PM CODING ANALYST TYPE AND SCREEN STAT 04/02/2024 11:32 PM CODING ANALYST RPR STAT 04/02/2024 11:32 PM CODING ANALYST NONSTRESS TEST Routine 03/27/2024 11:18 AM CODING ANALYST Obesity affecting , antepartum, unspecified obesity type US OB FOLLOW UP Schedule Routine, Read Routine (OP Routine) 03/27/2024 9:15 AM CODING ANALYST Obesity affecting in first trimester, unspecified obesity type POCT URINALYSIS (CLINITEK) Routine 03/23/2024 12:07 PM CODING ANALYST NONSTRESS TEST Routine 03/20/2024 10:48 AM CODING ANALYST Obesity affecting , antepartum, unspecified obesity type ANTIBODY IDENTIFICATION STAT 03/13/2024 2:58 PM CODING ANALYST GROUP B STREPTOCOCCUS CULTURE Routine 03/13/2024 1:33 PM CODING ANALYST Supervision of high-risk , first trimester EGFR STAT 03/13/2024 12:13 PM CODING ANALYST CBC WITHOUT DIFFERENTIAL STAT 03/13/2024 12:13 PM CODING ANALYST COMPREHENSIVE METABOLIC PANEL STAT 03/13/2024 12:13 PM CODING ANALYST TYPE AND SCREEN STAT 03/13/2024 12:13 PM CODING ANALYST URIC ACID STAT 03/13/2024 12:13 PM CODING ANALYST PROTEIN / CREATININE RATIO, URINE, RANDOM STAT 03/13/2024 12:13 PM CODING ANALYST POCT URINALYSIS (CLINITEK) Routine 03/13/2024 11:56 AM CODING ANALYST NONSTRESS TEST Routine 03/13/2024 10:21 AM CODING ANALYST Obesity affecting , antepartum, unspecified obesity type [...] * CBC without differential (04/18/2024 12:08 PM CODING ANALYST) WBC 7.0 3.8 - 9.9 K/cumm Hgb 14.4 11.9 - 15.5 g/dL [facility] Hct 44.4 35.6 - 45.5 % [facility] Plt 324 150 - 400 K/cumm [facility] MPV 10.2 9.1 - 12.3 fL [facility] RBC 4.87 3.90 - 5.20 M/cumm [facility] MCV 91.2 81.3 - 96.4 fL [facility] MCH 29.6 27.1 - 33.3 pg [facility] MCHC 32.4 32.3 - 35.7 g/dL [facility] RDW CV 12.8 11.1 - 14.9 % [facility] RDW SD 43.2 35.7 - 48.1 fL [facility] NRBC abs 0.00 0.00 - 0.01 K/cumm [facility] Blood 04/18/2024 12:0 8 PM CODING ANALYST 04/18/2024 2:29 PM CODING ANALYST Janeth Zacarias LAB BLOOD ORDERABLE S Final Result Performing Organization Address City/[facility]/ZIP Co de Phone Number [facility] [place] [address] * Ferritin (04/18/2024 12:08 PM CODING ANALYST) Ferritin See Comment 13 - 150 ng/mL Comment:Credited; Hemolyzed Specimen Blood 04/18/2024 12:0 8 PM CODING ANALYST 04/18/2024 2:29 PM CODING ANALYST [facility] BLOOD ORDERABLE S Final Result Performing Organization Address City/[facility] Co de Phone Number [facility] [address] * Rh Immune Globulin Eval (04/04/2024 6:01 AM CODING ANALYST) RhIg Administration 1 vial of Rh Immune Globulin (300 mcg dose) RhIg Eligible Yes, eligible [facility] Blood 04/04/2024 6:01 AM CODING ANALYST 04/04/2024 6:12 AM CODING ANALYST Narrative [facility] - 04/04/2024 6:25 AM CODING ANALYST Number of weeks ?->20 weeks or greater antibody screen result:->Negative Rhogam given?->Given Date Given?->01/17/24 Number of vials requested:->1 Noemi Collins MD LAB BLOOD BANK TEST ORDERABLES Final Result Performing Organization Address City/[facility] Co de Phone Number [facility] [place] [address] * Bleed Screen (04/04/2024 6:01 AM CODING ANALYST) Bleed Screen Negative Blood 04/04/2024 6:01 AM CODING ANALYST 04/04/2024 6:12 AM CODING ANALYST Noemi Collins MD LAB BLOOD BANK TEST ORDERABLES Final Result Performing Organization Address [facility] Co de Phone Number [facility] [address] * ABO/Rh (04/04/2024 6:01 AM CODING ANALYST) ABO Rh O Negative Blood 04/04/2024 6:01 AM CODING ANALYST 04/04/2024 6:12 AM CODING ANALYST Noemi Collins MD LAB BLOOD BANK TEST ORDERABLES Final Result Performing Organization Address [facility] Co de Phone Number [facility] [address] * US Ob Limited (04/03/2024 7:59 AM CODING ANALYST) Anatomical Region Laterality Modality Abdomen N/A Ultrasound Narrative 04/03/2024 7:59 AM CODING ANALYST Vertex I have reviewed the images and agree with above. Noemi Collins MD Noemi Collins MD IMG OB US PROCEDURES Final Result * Epidural Block (04/03/2024 5:15 AM CODING ANALYST) Narrative Kash Garcia MD - 04/03/2024 5:15 AM CODING ANALYST Kash Garcia MD ? 04/03/2024 ??5:16 AM [...] column of blood and test dose negative. Result [facility] Taylor Finley MD ANESTHESIA ORDERABLES Dilcia l Result * eGFR (04/02/2024 11:32 PM CODING ANALYST) eGFR >90 >=60 mL/min/1. 73 m2 Comment: [...] reviewed 2021. Blood 04/02/2024 11:3 2 PM CODING ANALYST 04/02/2024 11:45 PM CODING ANALYST Sudha Abarca MD LAB BLOOD ORDERABLES Final Result Performing Organization Address [facility] de Phone Number [facility] [place] [address] * RPR Blood (04/02/2024 11:32 PM CODING ANALYST) RPR Nonreactive Nonreactive Blood 04/02/2024 11:3 2 PM CODING ANALYST 04/02/2024 11:45 PM CODING ANALYST Sudha Abarca MD LAB MICROBIOLOGY - GE NERAL ORDERABLES Final Result Performing Organization Address [facility] de Phone Number [facility] [place] [address] * (ABNORMAL) CBC without differential (04/02/2024 11:32 PM CODING ANALYST) [facility] WBC 9.1 3.8 - 9.9 K/cumm Hgb 11.8(L) 11.9 - 15.5 g/dL [facility] Hct 34.8(L) 35.6 - 45.5 % [facility] Plt 228 150 - 400 K/cumm [facility] MPV 10.1 9.1 - 12.3 fL [facility] RBC 3.87(L) 3.90 - 5.20 M/cumm [facility] MCV 89.9 81.3 - 96.4 fL [facility] MCH 30.5 27.1 - 33.3 pg [facility] MCHC 33.9 32.3 - 35.7 g/dL [facility] RDW CV 13.5 11.1 - 14.9 % [facility] RDW SD 44.2 35.7 - 48.1 fL [facility] NRBC abs 0.00 0.00 - 0.01 K/cumm [facility] Blood 04/02/2024 11:3 2 PM CODING ANALYST 04/02/2024 11:45 PM CODING ANALYST Sudha Abarca MD LAB BLOOD ORDERABLES Final Result Performing Organization Address City/[facility] Co de Phone Number [facility] Department [place] [address] * Type and screen (04/02/2024 11:32 PM CODING ANALYST) [facility] Jorge, indirect Negative Comment:Patient has previous antibody history ABO Rh O Negative [facility] Blood 04/02/2024 11:3 2 PM CODING ANALYST 04/03/2024 12:12 AM CODING ANALYST Narrative [facility] - 04/03/2024 1:19 AM CODING ANALYST Has the patient had Daratumumab or Isatuximab in the past 6 months?->Unknown Sudha Abarca MD LAB BLOOD BANK TEST O RDERABLES Final Result [facility] [place] [address] * (ABNORMAL) Comprehensive metabolic panel (04/02/2024 11:32 PM CODING ANALYST) Sodium 138 135 - 145 mmol/L Potassium, pl 4.0 3.3 - 4.9 mmol/L [facility] Chloride 106 97 - 110 mmol/L [facility] CO2 22 22 - 32 mmol/L [facility] Anion gap 10 2 - 15 mmol/L [facility] BUN 6 6 - 25 mg/dL [facility] Creatinine 0.54(L) 0.60 - 1.10 mg/dL [facility] Glucose 103 70 - 199 mg/dL [facility] Comment: Interpretive Data Fasting glucose >/= 126 [...] 2022. Calcium 9.3 8.5 - 10.3 mg/dL [facility] Bilirubin, total 0.3 0.1 - 1.2 mg/dL [facility] Protein, pl 6.6 6.5 - 8.5 g/dL [facility] Albumin 3.6 3.5 - 5.0 g/dL [facility] Alk phos 110 40 - 130 Units/L [facility] ALT 21 7 - 45 Units/L [facility] AST 26 10 - 45 Units/L [facility] Blood 04/02/2024 11:3 2 PM CODING ANALYST 04/02/2024 11:45 PM CODING ANALYST Sudha Abarca MD LAB BLOOD ORDERABLES Final Result [facility] Department [place] [address] * nonstress test - (03/27/2024 11:18 AM CODING ANALYST) Janeth Zacarias MUSIC COMPOSITION TEACHER OB GYNE ORDERABLES Final Result * US Ob Follow Up (03/27/2024 9:15 AM CODING ANALYST) Fetus# Fetus1 [facility] Estimated Weight 3,274 g&grams [facility] Placenta Details posterior, Previa-no, no placental masses [facility] Presentation Vertex [facility] Anatomical Region Laterality Modality Abdomen N/A Ultrasound 03/27/2024 9:16 AM CODING ANALYST Impressions 03/27/2024 5:08 PM CODING ANALYST IUP at 38w 0d who presents for [...] 3. The amniotic fluid volume is normal. Janeth Zacarias MUSIC COMPOSITION TEACHER IMG OB US PROCEDURE S Final Result * POCT urinalysis (Clinitek) (03/23/2024 12:07 PM CODING ANALYST) Color, ur, POC Yellow Yellow Clarity, UA, POC Clear Clear [facility] Glucose, ur, POC Negative Negative [facility] Bilirubin, ur, POC Negative Negative [facility] Ketones, ur, POC Negative Negative [facility] Specific gravity, ur, POC 1.020 1.010 - 1.025 [facility] Blood, ur, POC Negative Negative [facility] pH, ur, POC 7.5 [facility] Comment: Interpretive Data Urine pH is affected by diet, medications, systemic acid-base disturbances, and renal tubular function. pH may affect urinary stone formation. For example, urine pH below 6.0 may help reduce the tendency for calcium phosphate stones and pH greater than 6.0 may reduce the tendency for uric acid stone formation. Source: [facility] [place]. Last Revised Date: 05-18-2017 Protein, ur, POC Negative Negative [facility] Urobilinogen, ur, POC 0.2 mg/dL mg/dL [facility] Nitrites, ur, POC Negative Negative [facility] Leukocyte esterase, ur, POC Negative Negative [facility] Urine 03/23/2024 12:0 7 PM CODING ANALYST 03/23/2024 12:07 PM CODING ANALYST Emily Munguia MD LAB POCT ORDERABLES - DEVIC E Final Result Performing Organization Address [facility] Co de Phone Number [facility] [place] [address] * nonstress test - (03/20/2024 10:48 AM CODING ANALYST) Janeth Zacarias MUSIC COMPOSITION TEACHER OB GYNE ORDERABLES Final Result * Antibody identification (03/13/2024 2:58 PM CODING ANALYST) Antibody ID 1 Passive Anti-D Blood 03/13/2024 2:58 PM CODING ANALYST 03/13/2024 2:58 PM CODING ANALYST Jennifer Chamberlain MUSIC COMPOSITION TEACHER LAB BLOOD BANK TEST ORDE RABLES Final Result Performing Organization Address [facility] Co de Phone Number [facility] [place] [address] * (ABNORMAL) Group B streptococcal culture Vaginal/Rectal (03/13/2024 1:33 PM CODING ANALYST) Report Final Report: Streptococcus agalactiae (Group B [...] allergic patients, please contact the laboratory at [phone] to request susceptibility testing * ??* ??* ??* ??* ??* ??* ??* ??* ??* ??* ??* ??* ??* ??* ??* ??* ??* ??* ??* (.) Organism STREPTOCOCCUS AGALACTIAE (GROUP B STREPTOCOCCI) [facility] Vaginal/Rectal 03/13/2024 1: 33 PM CODING ANALYST 03/13/2024 2:20 PM CODING ANALYST Narrative [facility] - 03/15/2024 1:08 PM CODING ANALYST Testing performed by [facility] Microbiology Laboratory ([phone]). Janeth Zacarias MUSIC COMPOSITION TEACHER LAB MICROBIOLOGY - GENERAL ORDERABLES Final Result [facility] Department [place] [address] * eGFR (03/13/2024 12:13 PM CODING ANALYST) eGFR >90 >=60 mL/min/1. 73 m2 Comment: [...] reviewed 2021. Blood 03/13/2024 12:1 3 PM CODING ANALYST 03/13/2024 12:50 PM CODING ANALYST Jennifer Chamberlain MUSIC COMPOSITION TEACHER LAB BLOOD ORDERABLES Fin al Result Performing Organization Address [facility] de Phone Number [facility] Department of [place], [place] [id number] * Protein / creatinine ratio, urine, random (03/13/2024 12:13 PM CODING ANALYST) Pathologist [facility] [place] Protein, ur, quant 6.6 mg/dL Comment: Interpretive Data No reference range established. Current interpretive data was last revised 2018. Creatinine Ur 46.1 mg/dL [facility] Comment: Interpretive Data No reference range established. Current interpretive data was last revised 2018. Protein/creatinin e ratio 143.2 0.0 - 180.0 mg/g CR [facility] Urine 03/13/2024 12:1 3 PM CODING ANALYST 03/13/2024 12:50 PM CODING ANALYST Jennifer Chamberlain NP LAB URINE ORDERABLES Fin al Result Performing Organization Address [facility] de Phone Number [facility] Department [place] [address] * (ABNORMAL) CBC without differential (03/13/2024 12:13 PM CODING ANALYST) Pathologist [facility] [place] WBC 7.5 3.8 - 9.9 K/cumm Hgb 11.8(L) 11.9 - 15.5 g/dL [facility] Hct 35.2(L) 35.6 - 45.5 % [facility] Plt 255 150 - 400 K/cumm [facility] MPV 9.9 9.1 - 12.3 fL [facility] RBC 3.93 3.90 - 5.20 M/cumm [facility] MCV 89.6 81.3 - 96.4 fL [facility] MCH 30.0 27.1 - 33.3 pg [facility] MCHC 33.5 32.3 - 35.7 g/dL [facility] RDW CV 13.2 11.1 - 14.9 % [facility] RDW SD 43.9 35.7 - 48.1 fL [facility] NRBC abs 0.00 0.00 - 0.01 K/cumm [facility] Blood 03/13/2024 12:1 3 PM CODING ANALYST 03/13/2024 12:50 PM CODING ANALYST Jennifer Chamberlain NP LAB BLOOD ORDERABLES Fin al Result Performing Organization Address [facility]/ZIP Co de Phone Number [facility] [place] [address] * (ABNORMAL) Type and screen (03/13/2024 12:13 PM CODING ANALYST) Jorge, indirect Positive(A) ABO Rh O Negative [facility] Blood 03/13/2024 12:1 3 PM CODING ANALYST 03/13/2024 1:10 PM CODING ANALYST Narrative [facility] - 03/13/2024 2:58 PM CODING ANALYST Has the patient had Daratumumab or Isatuximab in the past 6 months?->Unknown Jennifer Chamebrlain NP LAB BLOOD BANK TEST ORDE RABLES Final Result [facility] [place] [address] * Uric acid (03/13/2024 12:13 PM CODING ANALYST) Uric acid 3.3 2.5 - 7.0 mg/dL Blood 03/13/2024 12:1 3 PM CODING ANALYST 03/13/2024 12:50 PM CODING ANALYST Jennifer Chamberlain MUSIC COMPOSITION TEACHER LAB BLOOD ORDERABLES Fin al Result [facility] Department [place] [address] * (ABNORMAL) Comprehensive metabolic panel (03/13/2024 12:13 PM CODING ANALYST) Pathologist [facility] [place] Sodium 138 135 - 145 mmol/L Potassium, pl 4.1 3.3 - 4.9 mmol/L [facility] Chloride 103 97 - 110 mmol/L [facility] CO2 25 22 - 32 mmol/L [facility] Anion gap 10 2 - 15 mmol/L [facility] BUN 6 6 - 25 mg/dL [facility] Creatinine 0.46(L) 0.60 - 1.10 mg/dL [facility] Glucose 76 70 - 199 mg/dL [facility] Comment: Interpretive Data Fasting glucose >/= 126 [...] 2022. Calcium 9.5 8.5 - 10.3 mg/dL [facility] Bilirubin, total 0.3 0.1 - 1.2 mg/dL [facility] Protein, pl 6.9 6.5 - 8.5 g/dL [facility] Albumin 3.7 3.5 - 5.0 g/dL [facility] Alk phos 106 40 - 130 Units/L [facility] ALT 24 7 - 45 Units/L [facility] AST 19 10 - 45 Units/L [facility] Blood 03/13/2024 12:1 3 PM CODING ANALYST 03/13/2024 12:50 PM CODING ANALYST Jennifer Chamberlain MUSIC COMPOSITION TEACHER LAB BLOOD ORDERABLES Fin al Result Performing Organization Address City/[facility] Co de Phone Number [facility] Department [place] [address] * POCT urinalysis (Clinitek) (03/13/2024 11:56 AM CODING ANALYST) Color, ur, POC Yellow Yellow Clarity, UA, POC Clear Clear [facility] Glucose, ur, POC Negative Negative [facility] Bilirubin, ur, POC Negative Negative [facility] Ketones, ur, POC Negative Negative [facility] Specific gravity, ur, POC 1.020 1.010 - 1.025 [facility] Blood, ur, POC Negative Negative [facility] pH, ur, POC 7.0 [facility] Comment: Interpretive Data Urine pH is affected by diet, medications, systemic acid-base disturbances, and renal tubular function. pH may affect urinary stone formation. For example, urine pH below 6.0 may help reduce the tendency for calcium phosphate stones and pH greater than 6.0 may reduce the tendency for uric acid stone formation. Source: [facility] [place]. Last Revised Date: 05-18-2017 Protein, ur, POC Negative Negative [facility] Urobilinogen, ur, POC 0.2 mg/dL mg/dL [facility] Nitrites, ur, POC Negative Negative [facility] Leukocyte esterase, ur, POC Negative Negative [facility] Urine 03/13/2024 11:5 6 AM CODING ANALYST 03/13/2024 11:56 AM CODING ANALYST us Mook Villanueva MD LAB POCT ORDERABL ES - DEVICE Final Result Performing Organization Address City/[facility]/ZIP Co de Phone Number [facility] Department [place] [address] * nonstress test - (03/13/2024 10:21 AM CODING ANALYST) us Janeth Zacarias MUSIC COMPOSITION TEACHER OB GYNE ORDERABLES Final Result * nonstress test - (03/06/2024 10:24 AM CDT) us Janeth Zacarias NP OB GYNE ORDERABLES Final [...] GENERAL ORDERABLES Final Result Performing Organization Address City/[facility]/[place] [address] * RPR Blood (02/28/2024 11:14 AM CDT) Pathologist [facility] [place] RPR Nonreactive Nonreactive Blood 02/28/2024 11:1 4 AM CDT 02/28/2024 11:47 AM CDT Janeth Zacarias NP LAB MICROBIOLOGY - GENERAL ORDERABLES [place] [address] * CBC without differential (02/28/2024 11:14 AM CDT) Pathologist [facility] [place] WBC 8.4 3.8 - 9.9 K/cumm Hgb 12.1 11.9 - 15.5 g/dL [facility] Hct 35.8 35.6 - 45.5 % [facility] Plt 237 150 - 400 K/cumm [facility] MPV 9.9 9.1 - 12.3 fL [facility] RBC 3.91 3.90 - 5.20 M/cumm [facility] MCV 91.6 81.3 - 96.4 fL [facility] MCH 30.9 27.1 - 33.3 pg [facility] MCHC 33.8 32.3 - 35.7 g/dL [facility] RDW CV 13.4 11.1 - 14.9 % [facility] RDW SD 44.9 35.7 - 48.1 fL [facility] NRBC abs 0.00 0.00 - 0.01 K/cumm [facility] Blood 02/28/2024 11:1 4 AM CDT 02/28/2024 11:47 AM CDT us Janeth Zacarias MUSIC COMPOSITION TEACHER LAB BLOOD ORDERABLE S Final Result [facility] Department [place] [address] * US Ob Follow Up (02/28/2024 10:02 [...] tone andamniotic fluid volume. us Janeth Zacarias MUSIC COMPOSITION TEACHER IMG OB US PROCEDURE S Final Result * Hepatitis C antibody Blood (09/18/2023) SCRIBED HCV ab non-reacti ve Blood us Janett Robles NP LAB MICROBIOLOGY - GENERAL O RDERABLES Final Result from Last 3 Months or Most Recently Relevant to Health Maintenance Insurance [facility] [employer] PPO [employer] P[employer] [facility] Advance Directives For more information, please contact: [phone] * Full Code (Latest Code Status on [...] 1:28 PM 12/16/2019 8:31 PM Care Teams Roustabout Crew Relationship Specialty Start Date End Date No, Physician PCP - General 12/03/23 Jarred Roy MD [address] [facility] [address] [address] 01/30/19 Elma Echevarria NP [address] [facility] [address] [address] Nurse Practitioner General Surgery 12/16/19
--- OUTSIDE RECORDS SUMMARY | 2024-05-10 20:15 | XMS_ITS | Encounter Summary ---
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 Never 07/21/2021 Do you belong to any clubs o r organizations such as sikh groups, unions, fraternal or athletic groups, or [...] place to sleep or slept in a correction (including now)? No 07/21/2021 [place] Depression Scale Answer Date Recorded [place] Depression Scale Total 6 09/03/2021 The thought [...] on file Legal Sex Female 11:28 PM ELECTRIC MOTOR CONTROLS ASSEMBLER Gender Identity Not on file Sexual Orientation Not on file documented as of this encounter Last Filed Vital Signs Vital Sign Reading Time Taken Comments Blood Pressure 124/72 03/23/2024 11:35 AM ELECTRIC MOTOR CONTROLS ASSEMBLER Pulse 86 03/23/2024 11:35 AM ELECTRIC MOTOR CONTROLS ASSEMBLER Temperature 36.7 ??C (98.1 ??F) 03/23/2024 1 1:35 AM ELECTRIC MOTOR CONTROLS ASSEMBLER Respiratory Rate 20 03/23/2024 11:3 5 AM ELECTRIC MOTOR CONTROLS ASSEMBLER Oxygen Saturation 99% 03/23/2024 11: 35 AM ELECTRIC MOTOR CONTROLS ASSEMBLER Inhaled Oxygen Concentration - - Weight 148.9 kg (328 lb 3.2 oz) 024 11:35 AM ELECTRIC MOTOR CONTROLS ASSEMBLER Height 165.1 cm (5' 5 ) 03/23/2024 11:3 5 AM ELECTRIC MOTOR CONTROLS ASSEMBLER Body Mass Index 54.62 03/23/2024 11:35 AM ELECTRIC MOTOR CONTROLS ASSEMBLER documented in this encounter Discharge Instructions * Discharge Instr - Activity* Agustina Orona, RN - 03/23/2024 1:11 PM ELECTRIC MOTOR CONTROLS ASSEMBLER Follow up with OB at next scheduled appt Take medications as prescribed Labor precautions discussed TRIC MOTOR CONTROLS ASSEMBLER * Discharge Instr - Diet* Agustina Orona, RN - 03/23/2024 1:11 PM ELECTRIC MOTOR CONTROLS ASSEMBLER Regular diet, please drink plenty of water 8-10 glasses a day TRIC MOTOR CONTROLS ASSEMBLER documented in this encounter Medications at Time [...] needed for pain 120 tablet 04/04/2024 05/04/2024 aspirin 81 mg enteric coated tablet Take [...] 12 hours or as directed by . 9 patch 04/04/2024 04/18/2024 magnesium oxide (MAG-OX) 400 mg (241.3 [...] documented in this encounter H&P Notes * Medina Fitzpatrick MD - 03/23/2024 12:03 PM CST Obstetrics H&P Chief Complaint: Labial Swelling Estimated Date of Delivery: 04/10/24 Provider: SONAL HPI: Mary Singh is a 24 y.o. female at 37w3d gestation, dated by L=1st. She presents with labial swelling and lower abdominal discomfort that is worse with ambulation. Denies current pain or swelling, VB, LOF, DFM. Her is complicated by proteinuria, obesity, h/o pp hemorrhage and family history of ONTD Patient Denies: [x] Contractions [x] Shortness of Breath [x] Nausea/Vomitting [x] Vaginal Bleeding [x] Headache [] Abdominal Pain [x] Leaking of Fluid [x] [...] Hemorrhage Name: LICONA,GIRLTAYLOR Apgar1: 8 Apgar5: 9 MEDICAL ADMINISTRATOR History: Patient's last menstrual period was 07/05/2023 (exact date). History of Abnormal Pap: None STD History: none Past Medical History: Diagnosis Date Closed nondisplaced [...] : aspirin 81 mg enteric coated tablet famotidine (PEPCID) 20 mg tablet magnesium oxide (MAG-OX) 400 mg (241.3 mg elemental magnesium) tablet vitamin ferrous fumarate-folic () 28 mg iron- 800 mcg tablet riboflavin, vitamin B2, 400 mg tablet BinaxNOW COVID-19 Ag Self Test kit prochlorperazine (COMPAZINE) 10 mg tablet Review of Sys: Negative except per HPI Vitals: Temp: [36.7 ??C (98.1 ??F)] 36.7 ??C (98.1 ??F) Pulse: [86] 86 Resp: [20] 20 BP: (124)/(72) 124/72 Physical Exam: General: NAD, mood appropriate Cardiovascular: Regular rate and rhythm Pulmonary: Clear to ausculation bilaterally Abdomen: Gravid, non-tender Extremities: Warm and well perfused Perineum: normal labia, no swelling, skin intact, well perfused, no fluctuance or induration, no masses Speculum Exam: deferred Cervix: 1 /50 /Ballotable Monitoring: Baseline: 130 bpm, Variability: Moderate, Accelerations: Present and Decelerations: None Uterine Activity: Irregular contractions Interpretation: Reactive Labs: Lab Results Component Value Date ABORH O Negative 03/13/2024 SCRIBEDABORH O- 09/18/2023 IDCOOMB Positive (A) 03/13/2024 SCRINDANTIGL negative 09/18/2023 [id number] Nonreactive 02/28/2024 [id number] Nonreactive 09/18/2023 LABRPR Nonreactive 02/28/2024 SCRRPR Non-Reactive 09/18/2023 SCRRUBELIGG Immune 09/18/2023 GC negative 09/18/2023 Assessment and Plan # MWB -NO current abdominal pain -No labial swelling # FWB -reactive monitoring Plan discussed with Dr. Fitzpatrick. Return precautions given. Follow up scheduled 03/27. Toma Wynne NP 03/23/24 [facility] Fellow Attestation The above provider saw and examined the patient, we discussed their findings, and I am in agreementwith the plan. I did not personally examine the patient. I reviewed the tracing and it was reactive and reassuring. Medina Fitzpatrick MD, MPH Cosigned by Barbara Turner MD at 03/27/2024 2:26 PM ELECTRIC MOTOR CONTROLS ASSEMBLER TRIC MOTOR CONTROLS ASSEMBLER TRIC MOTOR CONTROLS ASSEMBLER TRIC MOTOR CONTROLS ASSEMBLER documented in this encounter Procedure Notes * Travis Harrison MD - 03/23/2024 1:07 PM CST Procedures Date: 03/23/24 Time: Monitoring: Baseline: 135 bpm, Variability: Moderate, Accelerations: Present and Decelerations: None Uterine Activity: Irregular contractions Interpretation: Reactive Toma Wynne NP I agree with NST as documented above. Travis Harrison MD Maternal Medicine Fellow Department of Obstetrics and Gynecology, PGY-6 Cosigned by Barbara Turner MD at 03/27/2024 2:25 PM ELECTRIC MOTOR CONTROLS ASSEMBLER TRIC MOTOR CONTROLS ASSEMBLER TRIC MOTOR CONTROLS ASSEMBLER TRIC MOTOR CONTROLS ASSEMBLER documented in this encounter Nursing Notes * Agustina Orona, RN - 03/23/2024 1:20 PM CST Pt cleared for d/c home. Pt given return precautions and verbalized an understanding. Pt in stable condition and ambulated to her vehicle. TRIC MOTOR CONTROLS ASSEMBLER documented in this encounter Plan of Treatment Not on file documented as of this encounter Procedures Procedure Name Priority Date/Time Associated Diagnosis Comments POCT URINALYSIS (CLINITEK) Routine 03/23/2024 12:07 PM ELECTRIC MOTOR CONTROLS ASSEMBLER documented in this encounter Results * POCT urinalysis (Clinitek) (03/23/2024 12:07 PM ELECTRIC MOTOR CONTROLS ASSEMBLER) Color, ur, POC Yellow Yellow Clarity, UA, [...] tendency for uric acid stone formation. Source: [facility]. Last Revised Date: 05-18-2017 Protein, ur, POC Negative Negative [facility] Urobilinogen, ur, POC 0.2 mg/dL mg/dL [facility] Nitrites, ur, POC Negative Negative [facility] Leukocyte esterase, ur, POC Negative Negative [facility] Urine 03/23/2024 12:0 7 PM ELECTRIC MOTOR CONTROLS ASSEMBLER 03/23/2024 12:07 PM ELECTRIC MOTOR CONTROLS ASSEMBLER us Emily Munguia MD LAB POCT ORDERABLES - DEVIC E Final Result [facility] Department [place] [address] documented in this encounter Visit Diagnoses Not on filedocumented in this encounter Orders Discharge Count Last Ordered Date First Orde red Date DISCHARGE PATIENT 1 03/23/2024 documented in this encounter Care Teams Crane Service Technician Relationship Specialty Start Date End Date No, Physician PCP - General 12/03/23 Jarred Roy MD [address] [address] 01/30/19 Elma Echevarria NP [address] [address] Nurse Practitioner General Surgery 12/16/19 documented as of this encounter
--- OUTSIDE RECORDS SUMMARY | 2024-05-10 20:15 | XMS_ITS | Encounter Summary ---
Author Organization [facility] Healthcare Address [address] [place] [address] Care Team Providers Care Buncher Hand Name Role Phone Jarred Roy MD Unavailable [phone] Elma Echevarria NP Unavailable No, Physician Primary Care Provider [phone] Reason for Referral * Diagnostic Imaging (Routine) - Closed Specialty Diagnoses / Procedures Referred By Contlazarus t Referred To Contact Diagnoses Obesity affecting in first trimester, unspecified obesity type Procedures US Ob Follow Up Janeth Zacarias NP [address] [facility] [phone] [place] [address] Phone: tel: fax: [facility] (All Locations) Referral ID Status Reason Start Date Expiration Date Visits Re quested Visits Authorized [id number] Closed 03/27/2024 04/26/2025 1 1 TION WORKER * Diagnostic Imaging (Routine) - Closed Specialty Diagnoses / Procedures Referred By Contlazarus t Referred To Contact Diagnoses Obesity affecting in first trimester, unspecified obesity type Procedures US Ob Follow Up Janeth Zacarias NP [address] [facility] [phone] [place] [address] Phone: tel: fax: [facility] (All Locations) Referral ID Status Reason Start Date Expiration Date Visits Re quested Visits Authorized [id number] Closed 03/27/2024 04/26/2025 1 1 TION WORKER Reason for Visit * Diagnostic Imaging (Routine) - Pending Review Specialty Diagnoses / Procedures Referred By Contac t Referred To Contact Diagnoses Obesity affecting in first trimester, unspecified obesity type Procedures US Ob Follow Up Janeth Zacarias NP [address] [facility] [phone] [place] [address] Phone: tel: fax: [facility] (All Locations) Referral ID Status Reason Start Date Expiration Date V isits Requested Visits Authorized [id number] Pending Review 01/03/2024 02/01/2025 1 1 Encounter Details Date Type Department Care Team (Latest Contact Info) Description 03/27/2024 9:08 AM DONATION WORKER - 03/27/2024 11:59 PM DONATION WORKER Hospital Encounter [facility] - Ultrasound [address] [facility], 7th Floor, [address] [facility] [place] [address] Obesity affecting in first trimester, unspecified obesity [...] often do you attend chur ch or nondenominational services? Never 07/21/2021 Do you belong to any clubs o r organizations such as sikhism groups, unions, fraternal or athletic groups, or [...] place to sleep or slept in a detention (including now)? No 07/21/2021 [place] Depression Scale Answer Date Recorded [place] Depression Scale Total 6 09/03/2021 The thought [...] on file Legal Sex Female 11:28 PM DONATION WORKER Gender Identity Not on file Sexual Orientation [...] or as directed by MD. 9 patch 04/04/2024 04/18/2024 magnesium oxide (MAG-OX) [...] Read Routine (OP Routine) 03/27/2024 9:15 AM DONATION WORKER Obesity affecting in first trimester, unspecified obesity type documented in this encounter Results * US Ob Follow Up (03/27/2024 9:15 AM DONATION WORKER) Fetus# Fetus1 VIEWPOINT Estimated Weight 3,274 g&grams VIEWPOINT Placenta Details posterior, Previa-no, no placental masses VIEWPOINT Presentation Vertex VIEWPOINT Anatomical Region Laterality Modality Abdomen N/A Ultrasound 03/27/2024 9:16 AM DONATION WORKER Impressions 03/27/2024 5:08 PM DONATION WORKER IUP at 38w 0d who presents for [...] amniotic fluid volume is normal. Janeth Zacarias POLE FRAME CONSTRUCTION WORKER IMG OB US PROCEDURE S Final Result documented in this encounter Visit Diagnoses Diagnosis Obesity affecting in first trimester, unspecified obesity type- Primary documented in this encounter Care Teams Buncher Hand Relationship Specialty Start Date End Date No, Physician PCP - General 12/03/23 Jarred Roy MD [address] [facility] [address] [address] 01/30/19 Elma Echevarria NP [address] [facility] [address] [address] Nurse Practitioner General Surgery 12/16/19 documented as of this encounter
--- OUTSIDE RECORDS SUMMARY | 2024-05-10 20:16 | XMS_ITS | Encounter Summary ---
Author Organization [facility] Healthcare Address [address] [place] [address] Care Team Providers Care Tank Insulator Rubber Name Role Phone Jarred Roy MD Unavailable [phone] Elma Echevarria NP Unavailable Venecia Turner MD Primary Care Provider [phone] Encounter Details Date Type Department Care Team (Late st Contact Info) Description 08/27/2021 Telephone Obstetrics and Gynecology Clinic [address] [facility] 3rd Floor [address] [place] [address] Natty Hernandez Social History Tobacco Use Types Packs/Day Years [...] often do you attend chur ch or christianity services? Never 07/21/2021 Do you belong to any clubs o r organizations such as orthodoxy groups, unions, fraternal or athletic groups, or school groups? No 07/21/2021 How often do you attend meet ings of the clubs or organizations you belong to? Never 07/21/2021 Are you , , di vorced, , never , or living with a partner? Never 07/21/2021 AUDIT-C Answer Date Recorded Q1: How often do you have a drink containing alc ohol? Never 07/19/2021 Average Number of Drinks Not on file 022 Q3: How often do you have si x or more drinks on one occasion? Never 07/19/2021 Overall Financial Resource Strain (CARDIA) Answe r [...] in a prison (including now)? No 07/21/2021 [place] Depression Scale Answer Date Recorded [place] Depression Scale Total 7 08/26/2021 The thought of harming myself has occurred to me . Never 08/26/2021 Comments No Sex and Gender Information Value Date Recorded Sex Assigned at Not on file Legal Sex Female 11:28 PM INTERMEDIATE PROJECT MANAGER Gender Identity Not on file Sexual Orientation Not on file documented as of this encounter Miscellaneous Notes * Telephone Encounter - Blanca Eubanks, RN - 08/27/2021 12:37 PM CDT Rn attempted to contact pharmacy. Placed on hold. Call disconnected. * Telephone Encounter - Mary Natty - 08/27/2021 12:28 PM CDT Pharmacy called in today regarding question on a prescription that was sent over and would like a call back Please and Thanks! documented in this encounter Plan of Treatment Not on file documented as of this encounter Visit Diagnoses Not on filedocumented in this encounter Care Teams Tank Insulator Rubber Relationship Specialty Start Date End Date Venecia Turner MD [address] [place] [address] [address] [facility] [address] [place] [address] PCP - General 08/16/21 02/08/22 Jarred Roy MD [address] [address] 01/30/19 Elma Echevarria NP [address] [address] Nurse Practitioner General Surgery 12/16/19 documented as of this encounter
--- OUTSIDE RECORDS SUMMARY | 2024-05-10 20:16 | XMS_ITS | Encounter Summary ---
Author Organization [facility] Address [address] [place] [address] Phone Care Team Providers Care Shaker Washer Name Role Phone Jarred Roy MD Unavailable [phone] Elma Echevarria NP Unavailable Laura Madrid NP Primary Care Provider [phone] Reason for Referral * Diagnostic Imaging (Routine) - Closed Specialty Diagnoses / Procedures Referred By Loyd medrano Referred To Contact Diagnoses Body mass index 40.0-44.9, adult ([facility]) Supervision of high-risk , first trimester Proteinuria complicating in first trimester Procedures US Ob Detail Anatomy Single Or First Gestation Janett Robles NP [address] [place] [address] [address] [address] Phone: tel: fax: [facility] (All Locations) Referral ID Status Reason Start Date Expiration Date Visits Re quested Visits Authorized [id number] Closed 10/13/2023 11/11/2024 1 1 Reason for Visit * Reason Comments High Risk Gestation Consult * Consultation (Routine) - Closed Specialty Diagnoses / Procedures Referred By Loyd medrano Referred To Contact Maternal and Medicine Diagnoses Body mass index 40.0-44.9, adult ([facility]) Other proteinuria Janett Robles V., [employer] [address] [place] [address] Phone: tel: fax: [facility] (All Locations) Referral ID Status Reason Start Date Expiration Date V isits Requested Visits Authorized [id number] Closed Specialty Services Required 09/22/2023 10/21/2024 1 1 Encounter Details Date Type Department Care Team (Late st Contact Info) Description 10/13/2023 10:15 AM CDT Office Visit [facility] Maternal- Medicine [address] 7[address] [place] [address] Supervision of high-risk , first trimester (Primary Dx); Body mass index 40.0-44.9, adult ([facility]); Other proteinuria; Proteinuria complicating in first trimester; History of hemorrhage, currently in first trimester; Family history of spina bifida Social History Tobacco Use Types Packs/Day Years [...] week 07/21/2021 How often do you attend [facility]? Never 07/21/2021 Do you belong to [...] you are drinking? Patient does not drink 4 Q3: How often do you have si [...] a group home (including now)? No 07/21/2021 [place] Depression Scale Answer Date Recorded [place] Depression Scale Total 6 09/03/2021 The thought of harming myself has occurred to me . 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 Gender Identity Not on file Sexual Orientation Not on file documented as of this encounter Last Filed Vital Signs Vital Sign Reading Time Taken Comments Blood Pressure 116/77 10/13/2023 10:01 AM CDT Pulse 80 10/13/2023 10:01 AM CDT Temperature - - Respiratory Rate - - Oxygen Saturation 98% 10/13/2023 10:01 AM CDT Inhaled Oxygen Concentration - - Weight 136.1 kg (300 lb) 10/13/2023 10:01 AM CDT Height 165.1 cm (5' 5 ) 10/13/2023 10:01 AM CDT Body Mass Index 49.92 10/13/2023 10:01 AM CDT documented in this encounter Ordered Prescriptions Prescription Sig Dispense Quantity Refills Last Filled Start Date End Date magnesium oxide (MAG-OX) 500 mg (301.6 mg elemental) tablet Take 1 tablet (500 mg total) by mouth daily 30 tablet 3 10/13/2023 02/16/2024 aspirin 81 mg enteric coated tablet Take 1 tablet (81 mg total) by mouth daily 30 tablet 5 10/13/2023 04/04/2024 documented in this encounter Progress Notes * Татьяна Ortiz MD - 10/13/2023 10:15 AM CDT Maternal Medicine Consult Note Reason for Consult: Family history of ONTD Requesting Provider: Travis Dear Dr. Robles, We had the pleasure of seeing your patient Mary Singh in our office today. As you know, she kwasi 23 y.o. at 14w2d here today for a consult regarding proteinuria. Today she is doing well, she reports no complaints. #Family member with ONTD: Sister, found to have 8p23.2 gene mutation, s/p genetic counseling in last . #Proteinuria: Records available all have normal protein; 24 hr (viewed on patient's portal on her phone) 572g/24 hrs. Ms. Singh reports this was completed while she had asymptomatic bacteriuria. No other history of renal disease. Does note her hands and feet have felt more swollen recently. #Obesity: BMI 49 #Migraines: Discontinued topiramate. Currently managing with tylenol and caffeine. 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 Due to atony. Received oxtyocin, CO miso, methergine, hemabate and TXA. Past Medical History: Diagnosis Date Closed nondisplaced [...] 10/04/2023 Past Surgical History: Procedure Laterality Date CYST REMOVAL TONSILLECTOMY/ADENOIDECTOMY Bilateral Past Gynecologic History: Prior STIs: No History of abnormal pap: No Last pap smear: 07/07/23 Patient's last menstrual period was 07/05/2023 (exact date). Denies history of uterine anomalies or fibroids OB History Para Term AB Living 2 1 1 0 0 1 SAB IAB Ectopic Multiple Live Births 0 0 0 0 1 # Outcome Date GA Lbr Zachary/2nd Weight Sex Type Anes PTL Lv 2 Current 1 Term 07/20/21 39w1d / 01:01 3.15 kg (6 lb 15.1 oz) F Vag-Spont EPI N MOHAMUD Complications: Post Hemorrhage Current Outpatient Medications Medication Sig Dispense Refill PNV No current facility-administered medications for this visit. Family History: Family History Problem Relation Age of Onset Hypertension Father Hypertension; Other Mother Alive and well at age 44.; Neural tube defects: Yes, sister Down syndrome or other chromosomal anomalies: No Hemophilia, sickle cell, bleeding/clotting disorder: No Muscular dystrophy: No Cystic fibrosis: No Intellectual disability or Fragile X: No Hitchcock disease: No Other defects or genetic disorders: No No Known Allergies Social History Tobacco Use Smoking status: Never Smokeless tobacco: Never Substance and Sexual Activity Drug use: Never Sexual activity: Yes Partners: Male control/protection: None Alcohol Use: Not At Risk (10/13/2023) AUDIT-C Frequency of Alcohol Consumption: Never Average Number of Drinks: Patient does not drink Frequency of Binge Drinking: Never 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 based on LMP c/w 1T US Physical Exam Vitals BP 116/77 Pulse 80 Ht 165.1 cm (5' 5 ) Wt 300 lb (136.1 kg) LMP 07/05/2023 (Exact Date) SpO2 98% BMI 49.92 kg/m?? General: Healthy, alert, active, cooperative, and in no distress The rest of the exam was deferred due to the consultative nature of this visit. Ultrasound 10/16/2023: Unknown EFW 55%, DOMENIC wnl Please see the separate report for full details Assessment: Ms. Mary Singh is a jj 23 y.o. at 14w2d here today for a consult regarding: Recommendations: Problem Proteinuria Complicating in First Trimester Counseling 10/13/2023: Proteinuria in is defined as a 24 hour total protein of >300 mg/24 hours. If diagnosed prior to 20 weeks, proteinuria is usually a sign of underlying kidney disease either primary or secondary. The differential diagnosis for underlying kidney disease is broad including primary (IgA nephropathy, minimal change disease, membranous nephropathy, FSGS, primary glomerulosclerosis, PCKD, allergic interstitial nephritis etc) and secondary causes (diabetic nephropathy, lupus nephritis, hypertensive nephrosclerosis etc). Official diagnosis is usually performed by kidney biopsy. Kidney biopsy is usually deferred to due to a concern of increased risk of bleeding (quoted as 7% in vs. 1% risk non). If proteinuria presents after 20 weeks of , the primary concern is preeclampsia. In those with new onset proteinuria as the only symptom after 20 weeks, 1/3 progress to preeclampsia and 25% of patients have proteinuria as the presenting symptom. We discussed that Ms. Singh's 24 hour urine with protein > 300 is consistent with proteinuria, however, given that this was obtained in the context of a UTI we will plan to repeat prior to initiating imaging and nephrology referral. Resulted: urine protein <5, ratio too low to calculate. As such, we will defer further testing at this time. Plan: [x] UA/UCx, UPC- ordered, normal [x] Start ASA 81 mg for preeclampsia prevention Obesity Complicating in First Trimester Pre- BMI: 50 Counseling 10/13/2023: Obesity in (BMI >30) is associated with increased risks. Maternal risks include preeclampsia, gestational diabetes and section. risks include anomalies, growth abnormalities (FGR and macrosomia) and stillbirth. Recommended weight gain is a total of 11-20 lbs, with 1-4 lbs in the 1st trimester and 0.5 lb/week in the 2nd and 3rd trimesters. Plan: [x] Initiate aspirin 81 mg at 12 weeks for preeclampsia risk reduction - ordered today [x] Early gestational diabetes screening with Hgb A1C - completed [] Specialized anatomic survey at 20 weeks - ordered [] Consider growth ultrasounds every 4 weeks at 28 weeks [] 3rd trimester anesthesia consultation if BMI >/=50 [] Weekly testing at 34 weeks (BMI >/=40) Family History of Spina Bifida Neural tube defects are typically multifactorial in nature. Ms. Singh's sister was determined to have a genetic etiology, and she is s/p counseling in her last . She did not have any questions and further discussion was deferred. The risk of occurrence of an open neural tube defect with an affected second degree relative 0.5%, third degree relative 0.17%. History of Hemorrhage, Currently in First Trimester A history of hemorrhage increases the risk for subsequent hemorrhage, and places patients in the high risk category. The risk of PPH increases to 18% (baseline 1-3% risk) in afirst after initial PPH and 27% with 2 consecutive pregnancies with PPH. We recommend aggressive treatment of antepartum anemia, and consideration of 2 large bore PIVs and crossing for blood at time of delivery. We have scheduled her for a detailed anatomy US and appointment on 11/23. Thank you for the opportunity to be involved in the care of your patient. Should you have any further questions or concerns, please do not hesitate to call us. Sincerely, Татьяна Ortiz MD PGY6 Maternal Medicine Fellow Patient was seen and discussed with Dr. Valentine. Cosigned by Geeta Valentine MD at 10/18/2023 8:36 AM CDT Associated attestation - Geeta Valentine MD - 10/18/2023 8:36 AM CDT I have seen and examined the patient. I agree with the findings and plan of care as documented in the resident/fellow's note. documented in this encounter Plan of Treatment Not on file documented as of this encounter Results * US Ob Detail Anatomy Single Or First Gestation (11/24/2023 8:53 AM CDT) Fetus# Fetus1 VIEWPOINT Estimated Weight 356 g&grams VIEWPOINT Placenta Details posterior, Previa-no, no placental masses VIEWPOINT Presentation Breech VIEWPOINT Anatomical Region Laterality Modality Body N/A Ultrasound 11/24/2023 9:30 AM CDT Impressions 11/24/2023 10:17 AM CDT Normal biometry and amniotic fluid. ??Detailed anatomic assessment as above which appeared grossly normal within the limitations of ultrasound although face and heart views were limited by position and maternal acoustics. ??Normal adnexa. ??TVCL was long and closed. ?? Narrative Procedure Note Delma Edwards MD - 11/24/2023 IMPRESSION: Normal biometry and amniotic fluid. Detailed anatomic assessment as abovewhich appeared grossly normal within the limitations of ultrasoundalthough face and heart views were limited by position and maternalacoustics. Normal adnexa. TVCL was long and closed. us Janett Robles NP IMG OB US PROCEDURES Final R esult * Protein / creatinine ratio, urine, random (10/13/2023 11:10 AM CDT) Protein, ur, quant <5.0 mg/dL Comment: Interpretive Data No reference range established. Current interpretive data was last revised 2018. Creatinine Ur 17.3 mg/dL [facility] Comment: Interpretive Data No reference range established. Current interpretive data was last revised 2018. Protein/creatini ne ratio See Comment 0.0 - 180.0 mg/g CR [facility] Comment:Unable to Calculate Urine 10/13/2023 11:1 0 AM CDT 10/13/2023 3:26 PM CDT us Geeta Valentine MD LAB URINE ORDERABLES Dilcia miller [facility] [place] [address] * Urinalysis reflex to microscopic (10/13/2023 11:10 AM CDT) Color, ur Straw Yellow Clarity, ur Clear Clear [facility] Specific gravity, ur 1.006 1.003 - 1.030 [facility] pH, urine 7.5 [facility] Comment: Interpretive Data ? Urine pH is affected by diet, medications, systemic acid-base disturbances, and renal tubular function. ??pH may affect urinary stone formation. ??For example, urine pH below 6.0 may help reduce the tendency for calcium phosphate stones and pH greater than 6.0 may reduce the tendency for uric acid stone formation. Source: [facility] [employer] Current Interpretive Data was last revised on 2017 Protein, ur ql Negative Negative [facility] Glucose, ur ql Negative Negative [facility] Ketones, ur Negative Negative [facility] Bilirubin, ur Negative Negative [facility] Blood, ur Negative Negative [facility] Urobilinogen, ur <2.0 <2.0 mg/dL [facility] Nitrite, ur Negative Negative [facility] Leukocyte esterase, ur Negative Negative [facility] UA reflex comment Reflex conditions for microscopic UA not met. [facility] Urine, clean voided 10/13/2023 11:10 AM CDT 10/13/2023 3:26 PM CDT us Geeta Valentine MD LAB URINE ORDERABLES Dilcia miller Result [facility] [place] [address] * Urine culture Urine, clean voided (10/13/2023 11:10 AM CDT) Report Final Report: Less than 100,000 colonies/mL (clinically insignificant growth based on current clinical standards) Organism (CLINICALLY INSIGNIFICANT GROWTH [facility] Urine, clean voided 10/13/2023 11:10 AM CDT 10/13/2023 4:15 PM CDT Narrative [facility] - 10/14/2023 5:22 PM CDT Testing performed by [facility] ([phone]) us Geeta Valentine MD LAB MICROBIOLOGY - GENERA L ORDERABLES Final Result [facility] [place] [address] documented in this encounter Visit Diagnoses Diagnosis Supervision of high-risk , first trimester- Primary Body mass index 40.0-44.9, adult (HCC) Body Mass Index 40.0-44.9, adult Other proteinuria Proteinuria complicating in first trimester History of hemorrhage, currently in first trimester Family history of spina bifida Family history of congenital anomalies Other proteinuria Supervision of high-risk , first trimester Proteinuria complicating in first trimester Body mass index 40.0-44.9, adult (HCC) Body Mass Index 40.0-44.9, adult Supervision of high-risk , first trimester Proteinuria complicating in first trimester documented in this encounter Discontinued Medications Medication Sig Discontinue Reason Start Date End Da te SUMAtriptan (IMITREX) 100 mg tabletIndications:Migrai ne Take one tabet po q2h prn as soon as feel headache is coming. No more than 2 tablets in 24 hours. Therapy completed 02/09/2022 10/13/2023 topiramate (TOPAMAX) 50 mg tabletIndications:Chroni c migraine without aura without status migrainosus, not intractable TAKE 1 TABLET(50 MG) BY MOUTH TWICE DAILY Therapy completed 03/22/2023 10/13/2023 documented as of this encounter Historical Medications * This list may reflect changes made after this encounter. vitamin ferrous fumarate-folic () 28 mg iron- 800 mcg tablet Take 1 tablet every day by oral route. 07/25/2023 added in this encounter Orders Outpatient Referral Count Last Ordered Date Fir st Ordered Date AMB REFERRAL TO MATERNAL AND MEDICINE 1 10/13/2023 documented in this encounter Care Teams Shaker Washer Relationship Specialty Start Date End Date Laura Madrid NP [address] [place] [address] PCP - General Nurse Practitioner 02/09/22 12/02/23 Jarred Roy MD 2 [facility] [address] [address] 01/30/19 Elma Echevarria NP 2 [facility] [address]OS [address] [address] Nurse Practitioner General Surgery 12/16/19 documented as of this encounter
--- OUTSIDE RECORDS SUMMARY | 2024-05-10 20:16 | XMS_ITS | Encounter Summary ---
Author Organization [facility] Address [address] [place] [address] Phone Care Team Providers Care Chartered Wealth Manager Name Role Phone Jarred Roy MD Unavailable [phone] Elma Echevarria NP Unavailable No, Physician Primary Care Provider [phone] Reason for Referral * Diagnostic Imaging (Routine) - Closed Specialty Diagnoses / Procedures Referred By Loyd medrano Referred To Contact Diagnoses Supervision of high-risk , first trimester Procedures US Ob Follow Up Janeth Zacarias NP [address] [facility] [phone] [place] [address] Phone: tel: fax: [facility] (All Locations) Referral ID Status Reason Start Date Expiration Date Visits Re quested Visits Authorized [id number] Closed 12/13/2023 01/11/2025 1 1 Reason for Visit * Reason Comments High Risk Gestation Encounter Details Date Type Department Care Team (Late st Contact Info) Description 12/13/2023 9:15 AM CDT Office Visit [facility] [address] [facility] 7th [address] [place] [address] Supervision of high-risk , first trimester (Primary Dx); Proteinuria complicating in first trimester; Obesity affecting in first trimester, unspecified obesity type; History of hemorrhage, currently in first trimester; Family history of spina bifida; Elevated blood pressure reading without diagnosis of hypertension; headache in second trimester Social History Tobacco Use Types Packs/Day [...] often do you attend chur ch or protestant services? Never 07/21/2021 Do you belong to [...] in a mcc (including now)? 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 Gender Identity Not on file Sexual Orientation Not on file documented as of this encounter Last Filed Vital Signs Vital Sign Reading Time Taken Comments Blood Pressure 104/72 12/13/2023 10:08 AM CDT Pulse 84 12/13/2023 10:08 AM CDT Temperature - - Respiratory Rate - - Oxygen Saturation 97% 12/13/2023 10: 08 AM CDT Inhaled Oxygen Concentration - - Weight 144.8 kg (319 lb 3.2 oz) 024 10:08 AM CDT Height 165.1 cm (5' 5 ) 12/13/2023 10:0 8 AM CDT Body Mass Index 53.12 12/13/2023 10:08 AM CDT documented in this encounter Ordered Prescriptions Prescription Sig Dispense Quantity Refills Last Filled Start Date End Date prochlorperazine (COMPAZINE) 10 mg tablet Take 1 tablet (10 mg total) by mouth every 6 (six) hours as needed (headache) 30 tablet 12/13/2023 4 prochlorperazine (COMPAZINE) 10 mg tablet Take 1 tablet (10 mg total) by mouth every 6 (six) hours as needed for nausea or vomiting 30 tablet 12/13/2023 4 riboflavin, vitamin B2, 400 mg tabletIndications: Migraine Prevention Take 400 mg by mouth daily 30 tablet 3 12/13/2023 4 documented in this encounter Progress Notes * Janeth Zacarias, KIOSK SALES REPRESENTATIVE - 12/13/2023 9:15 AM CDT MFM Return Visit 12/13/2023 Mary Singh is a 23 y.o. at 23w0d who is here for a return OB visit. Her is complicated by proteinuria, obesity, h/o pp hemorrhage and family history of ONTD. Subjective: Reports increased vaginal pressure over the last few days. She also was told her urine was abnormal in the ER but to f/u with us. She reports frequent urination over the last few days. She denies back pain, fevers or chills. She reports a persistent headache that lasted 3 days that brought her to the ED. She reports regular headaches that improve with meds. She is currently taking magnesium but not riboflavin. She reports checking her Bp at work and at home but has not ever repeated them and the cuffs have not been validated. She states she was r/o for preE in the hospital recently. Objective: BP 104/72 Pulse 84 Ht 165.1 cm (5' 5 ) Wt (!) 319 lb 3.2 oz (144.8 kg) LMP 07/05/2023 (Exact Date) SpO2 97% BMI 53.12 kg/m?? General: NAD Abdomen: Soft, gravid, NT, FHR + SVE: closed/long/hi Ultrasound: anatomy complete and wnl- see finalized US report Assessment/Plan: Mary Singh is a 23 y.o. at 23w0d with a complicated by the following: Problem List CICI 04/10/24 Supervision of high-risk , first trimester - Primary Overview [x] Full MFM Care as of 12/13/2023 [x] Blue Team Referring Provider: Janett Robles [phone] [] or Medicare Insurance [x] Dating Criteria: US 08/28/23 with CICI 04/10/24 [x] Labs: Rh [O-], Ab [negative3], Rubella [immune], HIV [non- reactive], HepBSAg [non-reactive], RPR [non-reactive], Hep C [non-reactive], Varicella [negative], GC/CT [negative/negative] [x] Aneuploidy: NIPT negative [] Carrier Screening: [x] CBC/Hgb: 12.5/38.7/plt 251 [] Early 1hr GTT (if indicated) [x] UCx: 09/18/23: 10,000-25,000 CFU/mL GBS [x] Pap: 07/25/23: NILM [] Flu Shot (Jan-Apr): [] COVID [] LD ASA (if indicated) [] EPDS [ ]; PNBHS referral (if indicated) 2nd Tri Labs: [x] Anatomy ultrasound: complete and wnl [] CBC/1hr gtt at 24-28wks: discussed and ordered for next visit [] Tdap (27-36wks): [] Rhogam at 28 wks (if Rh neg): needs 3rd Tri Labs: [] CBC/HIV/RPR/T&S: [] GBS: [] testing: [] RSV Counseling [] MOD: [x] Place of delivery: [facility] [] Last clinic visit SVE: [] IOL start agent: [] Epidural: [] Blood Products [] Consents signed: [] Stop ASA [] MOC: [] Method of feeding: [] Deep Submergence Vehicle Crewmember: [] PP Depression Discussed: Relevant Orders Urine culture Urine, clean voided US Ob Follow Up GTT 50gm 1hr gestational screen CBC without differential Proteinuria complicating in first trimester Overview Previously counseled 24 hour urine collected in the setting of a UTI. UPC urine protein <5, ratio too low to calculate. As such, we will defer further testing at this time. Plan: [x] UA/UCx, UPC- ordered, normal [x] Start ASA 81 mg for preeclampsia prevention Obesity complicating in first trimester Overview Pre- [...] Weekly testing at 34 weeks (BMI >/=40) History of hemorrhage, currently in first trimester [...] crossing for blood at time of delivery. Family history of spina bifida Overview Ms. Singh's sister was determined to have a genetic etiology, and she is s/p counseling in her last . S/p normal anatomy Elevated blood pressure reading without diagnosis of hypertension Overview Reports checking a blood pressure once [...] for close monitoring. headache in second trimester Overview Pt with a long history of headaches. Previously on Topamax 50 mg at bedtime. Current regimen: 12/13/2023 Magnesium, will add riboflavin Compazine PRN Plan: PreE precautions reviewed Good hydration and regular meals Caffeine prn #vaginal pressure/frequent urination - SVE closed/long/hi - urine culture sent 12/13/2023 - hospital precautions reviewed PTL/PEC/FKC precautions reviewed. Reviewed the importance of presenting to her closest hospital in the case of an emergency for evaluation and if necessary and safe will be transferred to [facility]. [place] documented in this encounter Miscellaneous Notes * Addendum Note - Janeth Zacarias NP - 12/13/2023 9:15 AM CDT Addended by: JANETH ZACARIAS on: 12/15/2023 01:24 PM Modules accepted: Level of Service documented in this encounter Plan of Treatment Not on file documented as of this encounter Results * (ABNORMAL) CBC without differential (01/03/2024 10:30 AM CDT) Pathologist [facility] WBC 8.0 3.8 - 9.9 K/cumm Hgb 11.8(L) 11.9 - 15.5 g/dL [facility] Hct 35.4(L) 35.6 - 45.5 % [facility] Plt 241 150 - 400 K/cumm [facility] MPV 10.0 9.1 - 12.3 fL [facility] RBC 3.81(L) 3.90 - 5.20 M/cumm [facility] MCV 92.9 81.3 - 96.4 fL [facility] MCH 31.0 27.1 - 33.3 pg [facility] MCHC 33.3 32.3 - 35.7 g/dL [facility] RDW CV 13.4 11.1 - 14.9 % [facility] RDW SD 45.6 35.7 - 48.1 fL [facility] NRBC abs 0.00 0.00 - 0.01 K/cumm [facility] Blood 01/03/2024 10:3 0 AM CDT 01/03/2024 11:35 AM CDT us Jaenth Zacarias NP LAB BLOOD ORDERABLE S Final Result [facility] Department [place] [address] * GTT 50gm 1hr gestational screen (01/03/2024 10:30 AM CDT) GTT 50g gest screen 95 <=140 mg/dL Comment: Interpretive Data Used for suspected gestational diabetes. The screening test uses 50 grams of glucose with sample obtained 1 hr later. Normal range: < 140 mg/dL. A glucose value of >140 mg/dL generally indicates the need for a full diagnostic tolerance test. Reference Interval Info: Diabetes Care 2005, Vol 28. Supplement 1,S37-S42. Report of the Expert Committee on the Diagnosis and Classification of Diabetes Mellitus. Diabetes Care 2020; 43(Supplement 1):S14-31. Current interpretive data was last revised on 2020. Blood 01/03/2024 10:3 0 AM CDT 01/03/2024 11:35 AM CDT us Janeth Zacarias KIOSK SALES REPRESENTATIVE LAB BLOOD ORDERABLE S Final Result [facility] [place] [address] * US Ob Follow Up (01/03/2024 8:46 AM CDT) Fetus# Fetus1 [facility] Estimated Weight 977 g&grams [facility] Placenta Details posterior, Previa-no, no placental masses [facility] Presentation Breech [facility] Anatomical Region Laterality Modality Abdomen N/A Ultrasound 01/03/2024 8:50 AM CDT Impressions 01/03/2024 9:21 AM CDT IUP - 26w 0d - interval growth is normal - size is AGABreech presentation. Narrative Procedure Note Josué Lemus MD - 01/03/2024 IMPRESSION: IUP - 26w 0d - interval growth is normal - size is AGABreechpresentation. us Janeth Zacarias KIOSK SALES REPRESENTATIVE IMG OB US PROCEDURE S Final Result * (ABNORMAL) Urine culture Urine, clean voided (12/13/2023 12:50 PM CDT) Report Final Report: Less than 100,000 colonies/mL (clinically insignificant growth based on current clinical standards) Includes the following: Less than 100,000 colonies/mL Streptococcus agalactiae (Group B Streptococci) * ??* ??* ??* ??* ??* ??* ??* ??* ??* ??* ??* ??* ??* ??* ??* ??* ??* ??* ??* Resistance to penicillin in Group B Streptococcus has not been reported. ??Group B Streptococci are universally susceptible to beta-lactam antibiotics and vancomycin. Routine susceptibility testing is not performed. In penicillin allergic patients, please contact the laboratory at [phone] to request susceptibility testing * ??* ??* ??* ??* ??* ??* ??* ??* ??* ??* ??* ??* ??* ??* ??* ??* ??* ??* ??* This laboratory routinely screens urine cultures for any amount of Group B Streptococcus in reproductive age women. ??Recovery of this isolate may be significant in women, however, the recovery of this organism in small quantities in non- women represents contamination with periurethral margot. (.) Organism STREPTOCOCCUS AGALACTIAE (GROUP B STREPTOCOCCI) [facility] Organism (CLINICALLY INSIGNIFICANT GROWTH [facility] Urine, clean voided 12/13/2023 12:50 PM CDT 12/13/2023 1:04 PM CDT Narrative [facility] - 12/15/2023 6:35 AM CDT Testing performed by [facility] ([phone]) Janeth Zacarias NP LAB MICROBIOLOGY - GENERAL ORDERABLES Final Result [facility] [place] [address] documented in this encounter Visit Diagnoses Diagnosis Supervision of high-risk , first trimester- Primary Proteinuria complicating in first trimester Obesity affecting in first trimester, unspecified obesity type History of hemorrhage, currently in first trimester Family history of spina bifida Family history of congenital anomalies Elevated blood pressure reading without diagnosis of hypertension headache in second trimester Supervision of high-risk , first trimester Supervision of high-risk , first trimester documented in this encounter Discontinued Medications Medication Sig Discontinue Reason Start Date End Da te prochlorperazine (COMPAZINE) 10 mg tablet Take 1 tablet (10 mg total) by mouth every 6 (six) hours as needed for nausea or vomiting 12/13/2023 12/13/2023 documented as of this encounter Care Teams Chartered Wealth Manager Relationship Specialty Start Date End Date No, Physician PCP - General 12/03/23 Jarred Roy MD [address] [address] 01/30/19 Elma Echevarria NP [address] [address] Nurse Practitioner General Surgery 12/16/19 documented as of this encounter
--- OUTSIDE RECORDS SUMMARY | 2024-05-10 20:16 | XMS_ITS | Encounter Summary ---
Author Organization [facility] Address [address] [place] [address] Phone Care Team Providers Care Bean Dumper Name Role Phone Jarred Roy MD Unavailable [phone] Elma Echevarria NP Unavailable No, Physician Primary Care Provider [phone] Encounter Details Date Type Department Care Team (Late st Contact Info) Description 12/15/2023 Orders Only [facility] [address] [facility] 7th Floor [address] [place] [address] Breanna Quijano RN Social History [...] often do you attend chur ch or religion services? Never 07/21/2021 Do you belong to any clubs o r organizations such as synagogue groups, unions, fraternal or athletic groups, or [...] in a half-way (including now)? 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 Gender Identity Not on file Sexual Orientation Not on file documented as of this encounter Ordered Prescriptions Prescription Sig Dispense Quantity Refills Last Filled Start Date End Date amoxicillin (AMOXIL) 875 mg tablet Take 1 tablet (875 mg total) by mouth every 12 (twelve) hours for 7 days 14 tablet 12/15/2023 12/22/2023 documented in this encounter Plan of Treatment Not on file documented as of this encounter Visit Diagnoses Not on filedocumented in this encounter Care Teams Bean Dumper Relationship Specialty Start Date End Date No, Physician PCP - General 12/03/23 Jarred Roy MD [address] [facility] [address] [address] 01/30/19 Elma Echevarria NP [address] [address] Nurse Practitioner General Surgery 12/16/19 documented as of this encounter
--- OUTSIDE RECORDS SUMMARY | 2024-05-10 20:16 | XMS_ITS | Encounter Summary ---
Author Organization [facility] Address [address] [facility] [facility] [address] [place] [address] Care Team Providers Care Dictionary Editor Name Role Phone Jarred Roy MD Unavailable [phone] EyeElma charles NP Unavailable SammamishLaura Thornton NP Primary Care Provider [phone] Reason for Visit * Reason Comments Migraine Encounter Details Date Type Department Care Team (Late st Contact Info) Description 05/23/2022 9:15 AM MAJOR ACCOUNT MANAGER Office Visit [facility] [address] [facility] [address] [place] [address] Tonya Dutton, MONALISA [address] [facility] [address] [place] [address] Chronic migraine without aura without status migrainosus, not intractable (Primary Dx); Morbid obesity with body mass index (BMI) of 40.0 to 49.9 ([facility]) Social History Tobacco Use Types Packs/Day Years Used Date Smoking Tobacco: Never Smokeless Tobacco: Never Tobacco Cessation:Counseling Given: No Alcohol Use Standard Drinks/Week Comments No 0 [...] often do you attend chur ch or restorationism services? Never 07/21/2021 Do you belong to any clubs o r organizations such as sabianism groups, unions, fraternal or athletic groups, or [...] in a penitentiary (including now)? No 07/21/2021 [place] Depression Scale Answer Date Recorded [place] Depression Scale Total 6 09/03/2021 The thought of harming myself has occurred to me . Never 09/03/2021 Comments No Sex and Gender Information Value Date Recorded Sex Assigned at Not on file Legal Sex Female 11:28 PM MAJOR ACCOUNT MANAGER Gender Identity Not on file Sexual Orientation Not on file documented as of this encounter Last Filed Vital Signs Vital Sign Reading Time Taken Comments Blood Pressure 116/76 05/23/2022 9:19 AM MAJOR ACCOUNT MANAGER Pulse 79 05/23/2022 9:19 AM MAJOR ACCOUNT MANAGER Temperature - - Respiratory Rate 18 05/23/2022 9:19 AM MAJOR ACCOUNT MANAGER Oxygen Saturation 97% 05/23/2022 9:19 AM MAJOR ACCOUNT MANAGER Inhaled Oxygen Concentration - - Weight 132 kg (291 lb) 05/23/2022 9:19 AM MAJOR ACCOUNT MANAGER Height 165.1 cm (5' 5 ) 05/23/2022 9:19 AM MAJOR ACCOUNT MANAGER Body Mass Index 48.42 05/23/2022 9:19 AM MAJOR ACCOUNT MANAGER documented in this encounter Ordered Prescriptions Prescription Sig Dispense Quantity Refills Last Filled Start Date End Date topiramate (TOPAMAX) 50 mg tabletIndications: Migraine Prevention Take 1 tablet (50 mg total) by mouth 2 (two) times a day 180 tablet 3 05/23/2022 03/22/2023 documented in this encounter Progress Notes * Tonya Dutton NP - 05/23/2022 9:15 AM CST Subjective/Objective Patient ID: Mary Licona is a 22 y.o. female. Chief Complaint I am seeing this 22 y.o. female in consultation requested by Dr. Laura Madrid NP for headache HPI of the initial visit by Dr. Adrian The headache has been going on for years. She was treated with Topamax by pediatric neurologist. Her headache was much better when she was in college. Over the time, the headache has been getting worse since 07/2021. She had epidural injection. She has been having headache 5 days a week. The headache affected temporal region. She described the headache as sharp pain 7/10 in severity Each headache lasted for whole day. It was associated with no nausea, photophobia and phonophobia. The headache was preceded by no aura. She still has headache when she laid down, but felt pressure increase for a few minutes when she got up. She tried Tylenol, Ibuprofen, Naproxen. Tylenol helped the most. She stopped breast feeding. Following his last visit she has been on topiramate 50 mg b.i.d. sumatriptan 100 mg as needed. She tolerated topiramate well. She still has occasional tingling but tolerable. Her daily headache has been down to about 1 a week. Happy with the effectiveness. She has not needed to take sumatriptan as of today. Past Medical History: Diagnosis Date Closed nondisplaced fracture of medial cuneiform of right foot 06/03/2019 HX OTHER MEDICAL T&A in 2011; Comments: MIRANDA 05/20/2014 - HX OTHER MEDICAL elbow fracture 02-06-15.; Comments: MIRANDA 02/09/2015 - Migraine No Known Allergies Current Outpatient Medications Medication Sig Dispense Refill topiramate (TOPAMAX) 50 mg tablet Take half tablet (25 mg) po twice a day for one week, then one tablet po twice a day 60 tablet 3 SUMAtriptan (IMITREX) 100 mg tablet Take one tabet po q2h prn as soon as feel headache is coming. No more than 2 tablets in 24 hours. (Patient not taking: Reported on 05/23/2022) 9 tablet 3 No current facility-administered medications for this visit. has a current medication list which includes the following prescription(s): topiramate and sumatriptan. Family History Problem Relation Age of Onset Hypertension Father Hypertension; Other Mother Alive and well at age 44.; Social History Tobacco Use Smoking status: Never Smokeless tobacco: Never Substance and Sexual Activity Drug use: Never Sexual activity: Defer Alcohol Use: Not At Risk Frequency of Alcohol Consumption: Never Average Number of Drinks: Not on file Frequency of Binge Drinking: Never BP 116/76 (BP Location: Right arm, Patient Position: Sitting) Pulse 79 Resp 18 Ht 165.1 cm (5' 5 ) Wt 132 kg (291 lb) SpO2 97% BMI 48.42 kg/m?? Physical Exam Mental status: alert, speech fluent, comprehension intact, follow command appropriately Cranial nerve: FIDELIA, corneal reflex present. EOMI, VFF by confrontation method. Facial sensations symmetrical. Face symmetrical. Motor: bulk normal, tone normal, pronator drift negative. Strength 5/5. No abnormal movement. Sensation: LT Normal and symmetrical. Gait: not assessed Assessment/Plan I am seeing this 21 y.o. female in consultation requested by Dr. Venecia Turner MD for headache. History is suggestive of chronic migraine headache. Chronic migraine without aura without status migrainosus, not intractable (Primary) - continue topiramate (TOPAMAX) 50 mg BID - SUMAtriptan (IMITREX) 100 mg tablet; Take one tabet po q2h prn as soon as feel headache is coming. No more than 2 tablets in 24 hours. Obesity I discussed with patient about comorbidity of obesity. Nutrition counseling, exercise counseling and education provided. Review of investigations: 1. 01/02/2014 CT of head without: No acute intracranial process. I reviewed image. Will follow up in 1 year. R ACCOUNT MANAGER R ACCOUNT MANAGER documented in this encounter Plan of Treatment Not on file documented as of this encounter Visit Diagnoses Diagnosis Chronic migraine without aura without status migrainosus, not intractable- Primary Morbid obesity with body mass index (BMI) of 40.0 to 49.9 (HCC) documented in this encounter Discontinued Medications Medication Sig Discontinue Reason Start Date End Da te topiramate (TOPAMAX) 50 mg tabletIndications:Chronic migraine without aura without status migrainosus, not intractable Take half tablet (25 mg) po twice a day for one week, then one tablet po twice a day Reorder 02/09/2022 05/23/2022 documented as of this encounter Care Teams Dictionary Editor Relationship Specialty Start Date End Date Laura Madrid NP [address] [place] [address] [address] [place] [address] PCP - General Nurse Practitioner 02/09/22 12/02/23 Jarred Roy MD 2 [facility] [address] [place] [address] 01/30/19 Elma Echevarria NP [address] [facility] [address] Nurse Practitioner General Surgery 12/16/19 documented as of this encounter
--- OUTSIDE RECORDS SUMMARY | 2024-05-10 20:16 | XMS_ITS | Encounter Summary ---
Author Organization [facility] Healthcare Address [address] [place] [address] Care Team Providers Care Full Service Supervisor Name Role Phone Jarred Roy MD Unavailable [phone] Elma Echevarria NP Unavailable GilmerLaura Thornton NP Primary Care Provider [phone] Reason for Referral * Diagnostic Imaging (Routine) - Pending Review Specialty Diagnoses / Procedures Referred By Contac t Referred To Contact Diagnoses Encounter for supervision of normal , antepartum, unspecified Procedures US OB Under 14 Weeks Janett Robles NP [address] [place] [address] [address] LEX[address] [place] [address] Phone: tel: fax: [address] [phone] Referral ID Status Reason Start Date Expiration Date V isits Requested Visits Authorized [id number] Pending Review 08/09/2023 09/07/2024 1 1 Reason for Visit * Diagnostic Imaging (Routine) - Pending Review Specialty Diagnoses / Procedures Referred By Contac t Referred To Contact Diagnoses Encounter for supervision of normal , antepartum, unspecified Procedures US OB Under 14 Weeks Janett Robles NP [address] [place] [address] [address] LEXIE [address]ajo [address] [place] [address] Phone: tel: fax: [address] [phone] Referral ID Status Reason Start Date Expiration Date V isits Requested Visits Authorized [id number] Pending Review 08/09/2023 09/07/2024 1 1 Encounter Details Date Type Department Care Team (Latest Contact Info) Description 08/10/2023 5:30 PM CDT - 08/10/2023 11:59 PM CDT Hospital Encounter [facility] Ultrasound [facility] [place], [place] [id number] Encounter for supervision of normal , antepartum, unspecified Discharge Disposition: Discharge to home or self [...] often do you attend chur ch or temple services? Never 07/21/2021 Do you belong to any clubs o r organizations such as adventist groups, unions, fraternal or athletic groups, or [...] place to sleep or slept in a fci (including now)? No 07/21/2021 [place] Depression Scale Answer Date Recorded [place] Depression Scale Total 6 09/03/2021 The thought of harming myself has occurred to me . 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 07/25/2023 SUMAtriptan (IMITREX) 100 mg tabletIndications :Migraine Take one tabet po q2h prn as soon as feel headache is coming. No more than 2 tablets in 24 hours. 9 tablet 3 02/09/2022 topiramate (TOPAMAX) 50 mg tabletIndications :Chronic migraine without aura without status migrainosus, not intractable TAKE 1 TABLET(50 MG) BY MOUTH TWICE DAILY 180 tablet 3 03/22/2023 4 documented as of this encounter Discharge Disposition Disposition Code Departure Means Destination Discharge to home or self care documented in this encounter Plan of Treatment Not on file documented as of this encounter Procedures Procedure Name Priority Date/Time Associated Diagnosis Comments US OB UNDER 14 WEEKS Schedule Routine, Read Routine (OP Routine) 08/10/2023 6:11 PM CDT Encounter for supervision of normal , antepartum, unspecified documented in this encounter Results * US OB Under 14 Weeks (08/10/2023 6:11 PM CDT) Anatomical Region Laterality Modality Abdomen N/A Ultrasound 08/11/2023 8:22 AM CDT Narrative 08/11/2023 8:25 AM CDT EXAM DESCRIPTION: ?? US OB UNDER 14 WEEKS REASON FOR STUDY: ?? Encounter for supervision of normal , unspecified, unspecified trimester ?? Beta-hCG: ? TECHNIQUE: Transvaginal ??images acquired of the pelvis. COMPARISON: ?? None. FINDINGS: The clinical age and due date are unknown. The uterus is anteverted measuring 9.0 x 6.4 x 5.3 cm. There is an intrauterine gestational sac which has a mean gestational sac diameter of 0.65 cm which would correspond to an estimated age 5 weeks 3 days hand which would correspond with an EDC of 04/08/2024. ??A yolk sac is noted measuring 0.19 cm. pole with heartbeat is not yet seen. There is the hypoechoic nonvascular collection inferior to the gestational sac likely subchorionic hemorrhage 2.1 x 1.8 x 0.4 cm (image 75). Right ovary is 2.4 x 1.8 x 2.0 cm. ??Preserved color flow and waveforms are seen in the right ovary. ??No right adnexal mass. Left ovary is 2.7 x 2.3 x 1.8 cm and has a corpus luteum cyst (image 66) with increased peripheral color Doppler flow. ??Preserved waveforms within the left ovary with color Doppler flow. ??No left adnexal mass. No free fluid seen in the pelvis. IMPRESSION: 1. ?? Intrauterine gestational sac with the yolk sac. ??A pole is not yet seen. ??Short-term follow-up ultrasound short-term follow-up beta hCG recommended. 2. ?? Subchorionic hemorrhage. THIS IS AN ELECTRONICALLY VERIFIED FINAL REPORT 08/11/2023 8:25 AM - Electronically signed by ??Stas Horta M.D. CH: D: ??08/11/2023 8:25 AM T: ??08/11/2023 8:25 AM Report ID: [id number] Reading Location: ??[id number] Procedure Note Stas Horta Jr., MD - 08/11/2023 EXAM DESCRIPTION: US OB UNDER 14 WEEKS REASON FOR STUDY: Encounter for supervision of normal , unspecified, unspecified trimester Beta-hCG: TECHNIQUE: Transvaginal images acquired of the pelvis. COMPARISON: None. FINDINGS: The clinical age and due date are unknown. The uterus is anteverted measuring 9.0 x 6.4 x 5.3 cm. There is an intrauterine gestational sac which has a mean gestational sac diameter of 0.65 cm which would correspond to an estimated age 5 weeks 3days hand which would correspond with an EDC of 04/08/2024. A yolk sac isnoted measuring 0.19 cm. pole with heartbeat is not yet seen. There is the hypoechoic nonvascular collection inferior to the gestationalsac likely subchorionic hemorrhage 2.1 x 1.8 x 0.4 cm (image 75). Right ovary is 2.4 x 1.8 x 2.0 cm. Preserved color flow and waveforms are seen in the right ovary. No right adnexal mass. Left ovary is 2.7 x 2.3 x 1.8 cm and has a corpus luteum cyst (image 66)with increased peripheral color Doppler flow. Preserved waveforms within theleft ovary with color Doppler flow. No left adnexal mass. No free fluid seen in the pelvis. IMPRESSION: 1. Intrauterine gestational sac with the yolk sac. A pole is notyet seen. Short-term follow-up ultrasound short-term follow-up beta hCG recommended. 2. Subchorionic hemorrhage. THIS IS AN ELECTRONICALLY VERIFIED FINAL REPORT 08/11/2023 8:25 AM - Electronically signed by Stas Horta M.D. CH: Report ID: [id number] Reading Location: [id number] us Janett Robles NP IMG OB US PROCEDURES Final R esult documented in this encounter Visit Diagnoses Diagnosis Encounter for supervision of normal , antepartum, unspecified documented in this encounter Care Teams Full Service Supervisor Relationship Specialty Start Date End Date Laura Madrid NP [address] [facility] [address] [place] [address] PCP - General Nurse Practitioner 02/09/22 12/02/23 Jarred Roy MD 2 [facility] [address] [place] [address] 01/30/19 Elma Echevarria NP [address] [facility] [address] [place] [address] Nurse Practitioner General Surgery 12/16/19 documented as of this encounter
--- OUTSIDE RECORDS SUMMARY | 2024-05-10 20:16 | XMS_ITS | Encounter Summary ---
Author Organization [facility] Healthcare Address [address] [place] [address] Care Team Providers Care Inspector Poising Name Role Phone Jarred Roy MD Unavailable [phone] Elma Echevarria NP Unavailable Venecia Turner MD Primary Care Provider [phone] Encounter Details Date Type Department Care Team (Late st Contact Info) Description 08/27/2021 Telephone Obstetrics and Gynecology Clinic [address] [facility] 3rd Floor [address] [place] [address] Lilian Evans Social History Tobacco Use Types Packs/Day Years [...] often do you attend chur ch or scientologist services? Never 07/21/2021 Do you belong to [...] place to sleep or slept in a alf (including now)? No 07/21/2021 [place] Depression Scale Answer Date Recorded [place] Depression Scale Total 7 08/26/2021 The thought of harming myself has occurred to me . 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 Pharmacy inquired if lidocaine was needed for external use as they had injectable jelly but not topical. They will order from a near by pharmacy. Pt will be notified perpharmacy. * Telephone Encounter - Lilian Evans - 08/27/2021 2:17 PM CDT Carlos Mcqueen from the pharmacy called and ask if you could please call her back. documented in this encounter Plan of Treatment Not on file documented as of this encounter Visit Diagnoses Not on filedocumented in this encounter Care Teams Inspector Poising Relationship Specialty Start Date End Date Venecia Turner MD [address] [place] [address] [address] [facility] [address] [place] [address] PCP - General 08/16/21 02/08/22 Jarred Roy MD [address] [address] 01/30/19 Elma Echevarria NP [address] [address] Nurse Practitioner General Surgery 12/16/19 documented as of this encounter
--- OUTSIDE RECORDS SUMMARY | 2024-05-10 20:16 | XMS_ITS | Encounter Summary ---
Author Organization [facility] Healthcare Address [address] [place] [address] Care Team Providers Care Asphalt Paver Operator Name Role Phone Jarred Roy MD Unavailable [phone] EyeElma charles NP Unavailable Venecia Turner MD Primary Care Provider [phone] Reason for Visit * Reason Comments Wound Check Groin Swelling Encounter Details Date Type Department Care Team (Late st Contact Info) Description 08/25/2021 8:20 PM CDT - 08/25/2021 11:19 PM CDT Emergency [facility] Emergency Department [address] [place] [address] Penny Fenton MD [address] [place] [id number] Bartholin's gland cyst (Primary Dx) Discharge Disposition: Discharge to home [...] often do you attend chur ch or confucianism services? Never 07/21/2021 Do you belong to [...] place to sleep or slept in a jail (including now)? No 07/21/2021 [place] Depression Scale Answer Date Recorded [place] Depression Scale Total 7 08/26/2021 The thought of harming myself has occurred to me . 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 Gender Identity Not on file Sexual Orientation Not on file documented as of this encounter Last Filed Vital Signs Vital Sign Reading Time Taken Comments Blood Pressure 133/75 08/25/2021 11:15 PM CDT Pulse 77 08/25/2021 11:15 PM CDT Temperature 36.4 ??C (97.6 ??F) 08/25/2021 6:29 PM CD T Respiratory Rate 18 08/25/2021 6:29 PM CDT Oxygen Saturation 100% 08/25/2021 11:15 PM CDT Inhaled Oxygen Concentration - - Weight 117.9 kg (260 lb) 08/25/2021 6:29 PM CDT Height 165.1 cm (5' 5 ) 08/25/2021 6:29 PM CDT Body Mass Index 43.27 08/25/2021 6:29 PM CDT documented in this encounter Discharge Diagnoses Diagnosis Cyst of Bartholin's gland - CYST OF BARTHOLIN'S GLAND documented in this encounter Discharge Instructions * Attachments The following attachments cannot be sent through Care Everywhere. * Bartholin Cyst (General Information) (Micronesian) * Sitz Bath (Discharge Care) (Micronesian) documented in this encounter Medications at Time of Discharge acetaminophen 500 mg capsuleIndicatio ns:Fever,Pain Take 2 capsules (1,000 mg total) by mouth every 6 (six) hours as needed for pain 60 tablet 07/21/2021 2 albuterol HFA (PROVENTIL HFA,VENTOLIN HFA,PROAIR HFA) 90 mcg/actuation inhaler albuterol sulfate HFA 90 mcg/actuation aerosol inhaler 2 docusate sodium (COLACE) 100 mg capsuleIndicatio ns:constipation, Stool Softener Take 1 capsule (100 mg total) by mouth 2 (two) times a day 60 capsule 07/21/2021 2 fluticasone propionate (FLONASE) 50 mcg/actuation nasal spray fluticasone propionate 50 mcg/actuation nasal spray,suspension 2 ibuprofen (ADVIL,MOTRIN) 600 mg tabletIndication s:Cramps Take 1 tablet (600 mg total) by mouth every 6 (six) hours as needed for pain 60 tablet 07/21/2021 2 lidocaine HCL 3 % cream Apply 1 application topically 4 (four) times a day as needed (Pain) 28.3 g 08/25/2021 2 polyethylene glycol (MIRALAX) 17 gram packetIndication s:constipation Take 1 packet (17 g total) by mouth daily as needed for constipation 20 packet 07/21/2021 2 documented as of this encounter Ordered Prescriptions Prescription Sig Dispense Quantity Refills Last Filled Start Date End Date lidocaine HCL 3 % cream Apply 1 application topically 4 (four) times a day as needed (Pain) 28.3 g 08/25/2021 2 documented in this encounter Discharge Disposition Disposition Code Departure Means Destination Discharge to home or self care documented in this encounter ED Notes * Penny Fenton MD - 08/25/2021 9:45 PM CDT Triage Chief Complaint: Chief Complaint Patient presents with ??? Wound Check ??? Groin Swelling HPI: Mary Licona is a 21 y.o. female 5 weeks () vaginal delivery (A first degree and right vaginal wall laceration was repaired in the usual fashion.) who presents for painful swelling of the right side of the vaginal opening. She 1st noticed it 2 or 3 days ago but it was becoming worse and more painful. No abnormal discharge or bleeding. No abdominal pain or fever or nausea vomiting. She does not think she has a history of lung gland cyst but she did have I and D of a abscess on her mons pubis previously. No new trauma and denies risk factors for STIs. She made an appointment for tomorrow with telegraph repeater technician but came to the emergency department because she felt like pain and swelling was getting worse and because this evening it started burning, which was a new symptom, and Ob Gyne when she made the appointment told her if she had any new symptoms that she should be seenin the ED. ROS: At least 5 systems reviewed and otherwise negative except as in the HPI or nursing notes. Past Medical History: Diagnosis Date ??? Closed nondisplaced fracture of medial cuneiform of right foot 06/03/2019 ??? HX OTHER MEDICAL T&A in 2012; Comments: MIRANDA 05/20/2014 - ??? HX OTHER MEDICAL elbow fracture 02-06-15.; Comments: MIRANDA 02/09/2015 - Past Surgical History: Procedure Laterality Date ??? TONSILLECTOMY/ADENOIDECTOMY Bilateral HOME MEDICATIONS : acetaminophen 500 mg capsule albuterol HFA (PROVENTIL HFA,VENTOLIN HFA,PROAIR HFA) 90 mcg/actuation inhaler docusate sodium (COLACE) 100 mg capsule fluticasone propionate (FLONASE) 50 mcg/actuation nasal spray ibuprofen (ADVIL,MOTRIN) 600 mg tablet lidocaine HCL 3 % cream polyethylene glycol (MIRALAX) 17 gram packet No Known Allergies Social history: Accompanied by mother Nursing Triage Notes Reviewed Physical Exam: ED Triage Vitals [08/25/21 3367] Temp Pulse Resp BP SpO2 36.4 ??C (97.6 ??F) 93 18 116/84 100 % Temp src Heart Rate Source Patient Position BP Location FiO2 (%) Temporal -- -- -- -- GENERAL APPEARANCE: Awake and alert. No acute distress. HEAD: Normocephalic. Atraumatic. EYES: Sclera anicteric. ENT: Tolerates saliva. NECK: Supple. Trachea midline. LUNGS: Respirations unlabored. EXTREMITIES: No acute deformities. SKIN: Warm and dry, no visible rashes, appears well perfused. NEUROLOGICAL: No gross facial drooping. Moves all 4 extremities spontaneously. PSYCHIATRIC: Normal mood. (patient's mother, with patient's permission, and female nurse tech registered dietician in the room) exam:Painful red fluctuant area of swelling at the vaginal introitus on the medial inner labia, with surrounding redness and some swelling of the right inner labia compared to the left. No folliculitis orabscess normal external genitalia otherwise. Because of the tenderness on exam at the vaginal introitus and internal speculum exam was not performed. But no abnormal discharge or bleeding or other lesions noted on exam. Labs Reviewed - No data to display No orders to display Procedures I have reviewed the patient's medical chart. Of note: Mons pubis abscess I&D 12/16/2019 [facility] ED COURSE: ED Course as of 08/26/21 0025 Time: 08/26 2311 Comment: I spoke to Dr. Smith, on-call Ob Gyne at [facility] where patient delivered, I discussed the patient's presentation, my thought that this is a breath once gland cyst, potentially secondarily infected, the but potentially just irritated inflamed Bartholin's gland cyst. Obviously, she is not able to examine the patient herself, and in the absence of having done so she does not recommend oral antibiotics at this time. She agrees with Sitz baths and topical lidocaine for symptom control. I called because the patient declined I&D of what appears to be Bartholin's gland cyst or possibly infected Bartholin's gland cyst (something of a typically offer in the emergency department although we do not have words catheters) because she has an appointment tomorrow with Ob Gyne would prefer them to manage it. This seems reasonable in this scenario. With shared decision making with the patient, she would like to be discharged for follow-up tomorrow. I discussed this with the on-call Ob Gyne who also felt this was a reasonable option. I also wanted to make sure she had an appropriate length of appointment in case procedure was indicated in the office, and [facility] access line thought thatit look like she did have an appropriate appointment tomorrow with Dr. Stein, the cartography technician she was able to get in the soonest, typically she sees Dr. Veliz. Patient was given return precautions and follow-up instructions, the tentative diagnosis, she knows to follow up with her gynecologisttomorrow as scheduled. All questions were answered. She verbalized understanding agreement to return precautions and follow-up instructions. By: Penny Fenton MD Clinical Impression: 1. Bartholin's gland cyst Disposition: Discharge (Please note that portions of this note may have been completed with a voice recognition program. Occasionally words are mis-transcribed.) Penny Fenton MD 08/26/21 0025 * Rehana Colón RN - 08/25/2021 6:25 PM CDT Pt ambulatory to ED stating she is 5 weeks post . Pt now c/o vaginal burning and a vaginal lump. No vaginal bleeding. States she has had abscesses in the past that required drainage and packing. documented in this encounter Plan of Treatment Not on file documented as of this encounter Visit Diagnoses Diagnosis Bartholin's gland cyst- Primary Cyst of Bartholin's gland documented in this encounter Administered Medications Inactive Administered Medications - up to 3 most recent administrations Medication Order MAR Action Action Date Dose Rate Site lidocaine-prilocaine (EMLA) 2.5-2.5 % cream topical, Once, On Mon08/25/21 at 2146, For 1 dose, Apply to affected area: perineum, Indications: Administration of Local AnesthesiaIndications:Administration of Local Anesthesia Given 08/25/2021 9:47 PM CDT documented in this encounter Active and Recently Administered Medications Times are shown in CDT. Scheduled Medication Order 08/23/2021 08/24/2021 08/25/2021 lidocaine-prilocaine (EMLA) 2.5-2.5 % cream (COMPLETED) topical, Once, On Mon08/25/21 at 2146, For 1 dose, Apply to affected area: perineum, Indications: Administration of Local Anesthesia 2146 (Given - Provid er: Elijah Overton RN) documented in this encounter Care Teams Asphalt Paver Operator Relationship Specialty Start Date End Date Venecia Turner MD [address] [facility] [address] [address] PCP - General 08/16/21 02/08/22 Jarred Roy MD 2 [facility] [address] [place] [address] 01/30/19 EyeElma charles NP [address] [facility] [address] [address] Nurse Practitioner General Surgery 12/16/19 documented as of this encounter
--- OUTSIDE RECORDS SUMMARY | 2024-05-10 20:16 | XMS_ITS | Encounter Summary ---
Author Organization [facility] Address [address] [place] [address] Care Team Providers Care Veneer Clipper Helper Name Role Phone Jarred Roy MD Unavailable [phone] EyeElma charles NP Unavailable [place]aura Thornton NP Primary Care Provider [phone] Encounter Details Date Type Department Care Team (Latest Contact Info) Description 10/13/2023 11:10 AM CDT - 10/13/2023 11:59 PM CDT Hospital Encounter [address] [address] Other proteinuria; Supervision of high-risk , first trimester; Proteinuria complicating in first trimester Discharge Disposition: Discharge to home [...] week 07/21/2021 How often do you attend [facility] or jewish services? Never 07/21/2021 Do you belong to any clubs o r organizations such as mosque groups, unions, fraternal or athletic groups, or [...] in a mcc (including now)? No 07/21/2021 [place] Depression Scale Answer Date Recorded [place] Depression Scale Total 6 09/03/2021 The thought of harming myself has occurred to me . Never 09/03/2021 Personal Safety Answer Date Recorded Getting School Help Needed Not on file 05/20 Comments Yes Sex and Gender Information Value Date Recorded Sex Assigned at Not on file Legal Sex Female 11:28 PM BLOGS MANAGER Gender Identity Not on file Sexual Orientation Not on file documented as of this encounter Medications at Time of Discharge vitamin ferrous fumarate-folic () 28 mg iron- 800 mcg tablet Take 1 tablet every day by oral route. 07/25/2023 aspirin 81 mg enteric coated tablet Take 1 tablet (81 mg total) by mouth daily 30 tablet 5 10/13/2023 04/04/2024 magnesium oxide (MAG-OX) 500 mg (301.6 mg elemental) tablet Take 1 tablet (500 mg total) by mouth daily 30 tablet 3 10/13/2023 02/16/2024 documented as of this encounter Discharge Disposition Disposition Code Departure Means Destination Discharge to home or self care documented in this encounter Plan of Treatment Not on file documented as of this encounter Procedures Procedure Name Priority Date/Time Associated Diagnosis Comments URINALYSIS AND REFLEX TO MICROSCOPIC Routine 10/13/2023 11:10 AM CDT Supervision of high-risk , first trimester PROTEIN / CREATININE RATIO, URINE, RANDOM Routine 10/13/2023 11:10 AM CDT Other proteinuria Supervision of high-risk , first trimester Proteinuria complicating in first trimester URINE CULTURE Routine 10/13/2023 11:10 AM CDT Supervision of high-risk , first trimester documented in this encounter Results * Urine culture Urine, clean voided (10/13/2023 11:10 AM CDT) Report Final Report: Less than 100,000 colonies/mL (clinically insignificant growth based on current clinical standards) Organism (CLINICALLY INSIGNIFICANT GROWTH [facility] Urine, clean voided 10/13/2023 11:10 AM CDT 10/13/2023 4:15 PM CDT Narrative SAY FARAH - 10/14/2023 5:22 PM CDT Testing performed by [facility] ([phone]) us Geeta Valentine MD LAB MICROBIOLOGY - GENERA L ORDERABLES Final [facility] [place] [address] * Urinalysis reflex to microscopic (10/13/2023 11:10 AM CDT) Color, ur Straw Yellow Clarity, ur Clear Clear [facility] Specific gravity, ur 1.006 1.003 - 1.030 [facility] pH, urine 7.5 [facility] Comment: Interpretive Data ? Urine pH is affected by diet, medications, systemic acid-base disturbances, and renal tubular function. ??pH may affect urinary stone formation. ??For example, urine pH below 6.0 may help reduce the tendency for calcium phosphate stones and pH greater than 6.0 may reduce the tendency for uric acid stone formation. Source: [facility] [employer] Current Interpretive Data was last revised on 2017 Protein, ur ql Negative Negative [facility] Glucose, ur ql Negative Negative [facility] Ketones, ur Negative Negative [facility] Bilirubin, ur Negative Negative [facility] Blood, ur Negative Negative [facility] Urobilinogen, ur <2.0 <2.0 mg/dL [facility] Nitrite, ur Negative Negative [facility] Leukocyte esterase, ur Negative Negative [facility] UA reflex comment Reflex conditions for microscopic UA not met. [facility] Urine, clean voided 10/13/2023 11:10 AM CDT 10/13/2023 3:26 PM CDT us Geeta Valentine MD LAB URINE ORDERABLES Dilcia l Result [facility] [place] [address] * Protein / creatinine ratio, urine, random (10/13/2023 11:10 AM CDT) Protein, ur, quant <5.0 mg/dL Comment: Interpretive Data No reference range established. Current interpretive data was last revised 2018. Creatinine Ur 17.3 mg/dL [facility] Comment: Interpretive Data No reference range established. Current interpretive data was last revised 2018. Protein/creatini ne ratio See Comment 0.0 - 180.0 mg/g CR [facility] Comment:Unable to Calculate Urine 10/13/2023 11:1 0 AM CDT 10/13/2023 3:26 PM CDT us Geeta Valentine MD LAB URINE ORDERABLES Dilcia l Result [facility] [place] [address] documented in this encounter Visit Diagnoses Diagnosis Other proteinuria Supervision of high-risk , first trimester Proteinuria complicating in first trimester documented in this encounter Care Teams Veneer Clipper Helper Relationship Specialty Start Date End Date Laura Madrid NP [address] [place] [address] [facility] [address] [place] [address] PCP - General Nurse Practitioner 02/09/22 12/02/23 Jarred Roy MD 2 [facility] [place] [address] [address] 01/30/19 Elma Echevarria NP 2 [facility] [address] [address] Nurse Practitioner General Surgery 12/16/19 documented as of this encounter
--- OUTSIDE RECORDS SUMMARY | 2024-05-10 20:16 | XMS_ITS | Encounter Summary ---
Author Organization [facility] Address [address] [place] [address] Care Team Providers Care Senior Shipping Clerk Name Role Phone Jarred Roy MD Unavailable [phone] Elma Echevarria NP Unavailable No, Physician Primary Care Provider [phone] Reason for Referral * Diagnostic Imaging (Routine) - Pending Review Specialty Diagnoses / Procedures Referred By Contac t Referred To Contact Diagnoses Obesity affecting in first trimester, unspecified obesity type Procedures US Ob Follow Up Janeth Zacarias NP [address] [facility] [phone] [place] [address] Phone: tel: fax: [facility] (All Locations) Referral ID Status Reason Start Date Expiration Date V isits Requested Visits Authorized [id number] Pending Review 01/03/2024 02/01/2025 1 1 * Diagnostic Imaging (Routine) - Closed Specialty Diagnoses / Procedures Referred By Contac t Referred To Contact Diagnoses Obesity affecting in first trimester, unspecified obesity type Procedures US Ob Follow Up Janeth Zacarias NP [address] [facility] [phone] [place] [address] Phone: tel: fax: [facility] (All Locations) Referral ID Status Reason Start Date Expiration Date Visits Re quested Visits Authorized [id number] Closed 01/03/2024 02/01/2025 1 1 Reason for Visit * Diagnostic Imaging (Routine) - Closed Specialty Diagnoses / Procedures Referred By Contac t Referred To Contact Diagnoses Obesity affecting in first trimester, unspecified obesity type Procedures US Ob Follow Up Janeth Zacarias NP [address] [facility] [phone] [place] [address] Phone: tel: fax: [facility] (All Locations) Referral ID Status Reason Start Date Expiration Date Visits Re quested Visits Authorized [id number] Closed 01/03/2024 02/01/2025 1 1 Encounter Details Date Type Department Care Team (Latest Contact Info) Description 01/31/2024 9:00 AM CDT - 01/31/2024 11:59 PM CDT Hospital Encounter [facility] [address] [facility], 7th Floor, [address] [place] [address] Obesity affecting in first trimester, unspecified obesity type Discharge Disposition: Discharge to home or self [...] often do you attend chur ch or sikh services? Never 07/21/2021 Do you belong to [...] in a intermediate (including now)? 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 Gender Identity Not on file Sexual Orientation [...] Test kit TEST DIRECTED TODAY 01/26/2024 04/04/2024 magnesium oxide (MAG-OX) 500 mg (301.6 mg elemental) tablet Take 1 tablet (500 mg total) by mouth daily 30 tablet 3 10/13/2023 02/16/2024 prochlorperazine (COMPAZINE) 10 mg tablet Take 1 [...] documented in this encounter Plan of Treatment Scheduled Orders Name Type Priority Associated Diagnoses Orde r Schedule US Ob Follow Up Imaging Schedule Routine , Read Routine (OP Routine) Obesity affecting in first trimester, unspecified obesity type Once for 1 Occurrences starting 01/31/2024 until 01/31/2024 documented as of this encounter Procedures Procedure Name Priority Date/Time Associated Diagnosis Comments US OB FOLLOW UP Schedule Routine, Read Routine (OP Routine) 01/31/2024 9:02 AM CDT Obesity affecting in first trimester, unspecified obesity type documented in this encounter Results * US Ob Follow Up (01/31/2024 9:02 AM CDT) Fetus# Fetus1 VIEWPOINT Estimated Weight 1,696 g&grams VIEWPOINT Placenta Details posterior, Previa-no, no placental masses VIEWPOINT Presentation Vertex VIEWPOINT Anatomical Region Laterality Modality Abdomen N/A Ultrasound 01/31/2024 9:02 AM CDT Impressions 01/31/2024 9:50 AM CDT IUP at 30w 0d who presents for growth assessment. ??Vertex presentation. ??The interval growth has been appropriate. The EFW plots at the 75%. The amniotic fluid volume is normal. ?? Narrative Procedure Note Naomi Bruce MD - 01/31/2024 IMPRESSION: IUP at 30w 0d who presents for growth assessment. Vertexpresentation. The interval growth has been appropriate. The EFWplots at the 75%. The amniotic fluid volume is normal. us Janeth Zacarias [facility] OB US PROCEDURE S Final Result documented in this encounter Visit Diagnoses Diagnosis Obesity affecting in first trimester, unspecified obesity type Other obesity affecting in third trimester- Primary documented in this encounter Care Teams Senior Shipping Clerk Relationship Specialty Start Date End Date No, Physician PCP - General 12/03/23 Jarred Roy MD [address] [address] 01/30/19 Elma Echevarria NP 2 [facility] [address] [address] Nurse Practitioner General Surgery 12/16/19 documented as of this encounter
--- OUTSIDE RECORDS SUMMARY | 2024-05-10 20:16 | XMS_ITS | Encounter Summary ---
Author Organization [facility] Healthcare Address [address] [place] [address] Care Team Providers Care Director Project Management Name Role Phone Jarred Roy MD Unavailable [phone] EyersElma NP Unavailable No, Physician Primary Care Provider [phone] Reason for Visit * Reason Comments Leg Swelling Encounter Details Date Type Department Care Team (Late st Contact Info) Description 07/22/2021 10:49 PM CDT - 07/23/2021 12:05 AM CDT Emergency [facility] Emergency Department [address] [place] [address] Farzad Baca MD [address] [address] Leg edema, right (Primary Dx) Discharge Disposition: Discharge to home [...] week 07/21/2021 How often do you attend [facility] or restorationist services? Never 07/21/2021 Do you belong to [...] in a half-way (including now)? No 07/21/2021 Comments No Sex and Gender Information Value Date Recorded Sex Assigned at Not on file Legal Sex Female 11:28 PM CLIENT PORTFOLIO MANAGER Gender Identity Not on file Sexual Orientation Not on file documented as of this encounter Last Filed Vital Signs Vital Sign Reading Time Taken Comments Blood Pressure 119/48 07/22/2021 11:45 PM CDT Pulse 87 07/22/2021 11:45 PM CDT Temperature 37 ??C (98.6 ??F) 07/22/2021 8:59 PM CDT Respiratory Rate 18 07/22/2021 8:59 PM CDT Oxygen Saturation 98% 07/22/2021 11:45 PM CDT Inhaled Oxygen Concentration - - Weight - - Height 165.1 cm (5' 5 ) 07/22/2021 8:59 PM CDT Body Mass Index - - documented in this encounter Discharge Diagnoses Diagnosis Edema, unspecified - EDEMA, UNSPECIFIED documented in this encounter Discharge Instructions * Discharge Instructions* Farzad Baca MD - 07/23/2021 12:00 AM CDT Keep your legs elevated , follow with your OB * Attachments The following attachments cannot be sent through Care Everywhere. * Leg Swelling in a Single Leg (Luxembourgish) documented in this encounter Medications at Time [...] needed for pain 60 tablet 07/21/2021 2 polyethylene glycol (MIRALAX) 17 gram packetIndication s:constipation Take 1 packet (17 g total) by mouth daily as needed for constipation 20 packet 07/21/2021 2 documented as of this encounter Discharge Disposition Disposition Code Departure Means Destination Comment s Discharge to home or self care Pt ambulated out. Pt had no further questions. To follow up with OB. documented in this encounter ED Notes * Farzad Baca MD - 07/22/2021 11:56 PM CDT HPI Chief Complaint Patient presents with ??? Leg Swelling 21-year-old 1 para 1 had normal vaginal delivery on July 20 2021 here with a complaint of right leg swelling since this evening. Patient noticed her right ankle more swollen than the left.She states that she had elevated blood pressure during however it was back to normal. Shealso complains of tingling sensation around the ankle. She denies any shortness of breath or chest pain. Patient History: Patient Active Problem List Diagnosis Date Noted ??? state 07/19/2021 ??? Acute sinusitis 07/16/2021 ??? Urinary tract infectious disease 07/16/2021 ??? Elevated blood pressure affecting , antepartum 05/17/2021 ??? Family history of neural tube defect 02/09/2021 ??? Rh negative state in antepartum period 02/08/2021 ??? 11/17/2020 ??? Facial swelling 08/08/2019 ??? Loss of hair 06/25/2019 ??? Closed nondisplaced fracture of medial cuneiform of right foot 06/03/2019 ??? Iron deficiency 11/19/2018 ??? Migraine 11/19/2018 ??? Astigmatism 09/18/2018 ??? 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 Vitamin D deficiency 09/18/2018 ??? Obesity 12/16/2016 ??? Chronic daily headache 12/16/2016 Past Medical History: Diagnosis Date ??? Closed nondisplaced fracture of medial cuneiform of right foot 06/03/2019 ??? HX OTHER MEDICAL T&A in 2011; Comments: MIRANDA 05/20/2014 - ??? HX OTHER MEDICAL elbow fracture 02-06-15.; Comments: MIRANDA 02/09/2015 - Past Surgical History: Procedure Laterality Date ??? TONSILLECTOMY/ADENOIDECTOMY Bilateral Family History Problem Relation Age of Onset ??? Hypertension Father Hypertension; ??? Other Mother Alive and well at age 44.; Social History Tobacco Use ??? Smoking status: Never Smoker ??? Smokeless tobacco: Never Used Vaping Use ??? Vaping Use: Never used Substance Use Topics ??? Alcohol use: No ??? Drug use: Never Social History Social History Narrative ??? Not on file Review of Systems Review of Systems Constitutional: Negative. HENT: Negative. Eyes: Negative. Respiratory: Negative. Cardiovascular: Positive for leg swelling. Gastrointestinal: Negative. Endocrine: Negative. Neurological: Negative. Hematological: Negative. Psychiatric/Behavioral: Negative. Physical Exam ED Triage Vitals [07/22/212058] Temp Pulse Resp BP SpO2 37 ??C (98.6 ??F) 100 18 119/72 99 % Temp src Heart Rate Source Patient Position BP Location FiO2 (%) Tympanic -- -- -- -- Physical Exam Vitals and nursing note reviewed. Constitutional: Appearance: Normal appearance. HENT: Head: Normocephalic and atraumatic. Nose: Nose normal. Cardiovascular: Rate and Rhythm: Normal rate and regular rhythm. Pulses: Normal pulses. Heart sounds: Normal heart sounds. Abdominal: Palpations: Abdomen is soft. Musculoskeletal: Cervical back: Normal range of motion. Right lower leg: Edema present. Left lower leg: Edema present. Skin: General: Skin is warm. Capillary Refill: Capillary refill takes less than 2 seconds. Neurological: Mental Status: She is alert. Results for orders placed or performed during the hospital encounter of 07/22/21 D-dimer, quantitative Result Value Ref Range D-Dimer 1,123 (H) <=499 ng/mL [facility] Comprehensive metabolic panel Result Value Ref Range Sodium 135 135 - 145 mmol/L Potassium, pl 3.9 3.3 - 4.9 mmol/L Chloride 99 97 - 110 mmol/L CO2 24 22 - 32 mmol/L Anion gap 11 2 - 15 mmol/L BUN 7 (L) 8 - 25 mg/dL Creatinine 0.55 (L) 0.60 - 1.10 mg/dL Glucose 84 70 - 199 mg/dL Calcium 9.4 8.5 - 10.3 mg/dL Bilirubin, total 0.2 0.1 - 1.2 mg/dL Protein, pl 6.5 6.5 - 8.5 g/dL Albumin 3.8 3.5 - 5.0 g/dL Alk phos 113 40 - 130 Units/L ALT 21 7 - 45 Units/L AST 29 10 - 45 Units/L CBC with auto differential Result Value Ref Range WBC 8.1 3.8 - 9.9 K/cumm Hgb 9.5 (L) 11.9 - 15.5 g/dL Hct 28.1 (L) 35.6 - 45.5 % Plt 258 150 - 400 K/cumm MPV 9.8 9.1 - 12.3 fL RBC 3.00 (L) 3.90 - 5.20 M/cumm MCV 93.7 81.3 - 96.4 fL MCH 31.7 27.1 - 33.3 pg MCHC 33.8 32.3 - 35.7 g/dL RDW CV 13.2 11.1 - 14.9 % RDW SD 44.8 35.7 - 48.1 fL NRBC abs 0.00 0.00 - 0.01 K/cumm Differential, auto Result Value Ref Range Neutrophil abs 5.5 1.7 - 6.5 K/cumm Imm gran abs 0.1 0.0 - 0.1 K/cumm Lymphocyte abs 1.5 0.8 - 3.3 K/cumm Monocyte abs 0.7 0.2 - 0.8 K/cumm Eosinophil abs 0.3 0.0 - 0.5 K/cumm Basophil abs 0.0 0.0 - 0.1 K/cumm Neutrophil pct 67.9 % Imm gran pct 0.7 % Lymphocyte pct 18.5 % Monocyte pct 8.9 % Eosinophil pct 3.6 % Basophil pct 0.4 % eGFR Result Value Ref Range eGFR 133 mL/min/1.73 m2 [facility] ED Course as of 07/23/21 0000 Time: 07/22 2249 Value: D-dimer, quantitative(!): D-Dimer 1,123(!) Comment: (Reviewed) By: Farzad Baca MD Time: 07/22 2355 Comment: Bedside 2 point compression ultrasound without evidence of DVT By: Krzysztof Conte MD Final diagnoses: Leg edema, right Farzad Baca MD 07/23/21 0000 * Sabino Desai, TRAY - 07/22/2021 8:53 PM CDT Patient reports right leg swelling that started yesterday and has not gotten progressively worse. Patient also reports tingling in right leg. Leg swelling worse with elevation. Vaginal delivery on Monday, induced 1 week early Denies CP, SOB, vaginal bleeding A/Ox4, +2 pedal pulse, skin warm to touch Attending consulted. CMP, CBC ordered documented in this encounter Plan of Treatment Not on file documented as of this encounter Procedures Procedure Name Priority Date/Time Associated Diagnosis Comments EGFR STAT 07/22/2021 9:24 PM CDT DIFFERENTIAL AUTO STAT 07/22/2021 9:2 4 PM CDT CBC WITH AUTO DIFFERENTIAL STAT 07/22/2021 9:24 PM CDT D-DIMER, QUANTITATIVE STAT 07/22/2021 9:24 PM CDT COMPREHENSIVE METABOLIC PANEL STAT 07/22/2021 9:24 PM CDT documented in this encounter Results * eGFR (07/22/2021 9:24 PM CDT) eGFR 133 mL/min/1. 73 m2 [facility] ([place]) Comment: Interpretive Data Reference Interval Normal ?>/= [...] interpretive data was last reviewed 2021. Blood 07/22/2021 9:24 PM CDT 07/22/2021 9:27 PM CDT us Krzysztof Conte MD LAB BLOOD ORDERABLE S Final Result [facility] ([place]) 1 [facility] Department of Laboratories [place], [place] [id number] * Differential, auto (07/22/2021 9:24 PM CDT) Neutrophil abs 5.5 1.7 - 6.5 K/cumm [facility] ([place]) Imm gran abs 0.1 0.0 - 0.1 K/cumm [facility] ([place]) Lymphocyte abs 1.5 0.8 - 3.3 K/cumm [facility] ([place]) Monocyte abs 0.7 0.2 - 0.8 K/cumm [facility] ([place]) Eosinophil abs 0.3 0.0 - 0.5 K/cumm [facility] ([place]) Basophil abs 0.0 0.0 - 0.1 K/cumm [facility] ([place]) Neutrophil pct 67.9 % [facility] ([place]) Comment: Interpretive Data Percent cell count reference ranges are not reported, since discordance with absolute values may lead to misinterpretation of CBC data. Current Interpretive Data was last revised on 2017. Imm gran pct 0.7 % [facility] ([place]) Comment: Interpretive Data Percent cell count reference ranges are not reported, since discordance with absolute values may lead to misinterpretation of CBC data. Current Interpretive Data was last revised on 2017. Lymphocyte pct 18.5 % [facility] ([place]) Comment: Interpretive Data Percent cell count reference ranges are not reported, since discordance with absolute values may lead to misinterpretation of CBC data. Current Interpretive Data was last revised on 2017. Monocyte pct 8.9 % [facility] ([place]) Comment: Interpretive Data Percent cell count reference ranges are not reported, since discordance with absolute values may lead to misinterpretation of CBC data. Current Interpretive Data was last revised on 2017. Eosinophil pct 3.6 % [facility] ([place] Comment: Interpretive Data Percent cell count reference ranges are not reported, since discordance with absolute values may lead to misinterpretation of CBC data. Current Interpretive Data was last revised on 2017. Basophil pct 0.4 % [facility] ([place]) Comment: Interpretive Data Percent cell count reference ranges are not reported, since discordance with absolute values may lead to misinterpretation of CBC data. Current Interpretive Data was last revised on 2017. Blood 07/22/2021 9:24 PM CDT 07/22/2021 9:27 PM CDT us Krzysztof Conte MD LAB BLOOD ORDERABLE S Final Result [facility] 1 [facility] Department [place] [address] * (ABNORMAL) CBC with auto differential (07/22/2021 9:24 PM CDT) WBC 8.1 3.8 - 9.9 K/cumm [facility]) Hgb 9.5(L) 11.9 - 15.5 g/dL [facility] ([place]) Hct 28.1(L) 35.6 - 45.5 % [facility]) Plt 258 150 - 400 K/cumm [facility] ([place]) MPV 9.8 9.1 - 12.3 fL [facility]) RBC 3.00(L) 3.90 - 5.20 M/cumm [facility]) MCV 93.7 81.3 - 96.4 fL [facility]) MCH 31.7 27.1 - 33.3 pg [facility]) MCHC 33.8 32.3 - 35.7 g/dL [facility]) RDW CV 13.2 11.1 - 14.9 % [facility]) RDW SD 44.8 35.7 - 48.1 fL [facility]) NRBC abs 0.00 0.00 - 0.01 K/cumm [facility]) Blood 07/22/2021 9:24 PM CDT 07/22/2021 9:27 PM CDT us Krzysztof Conte MD LAB BLOOD ORDERABLE S Final Result [facility] 1 [facility] Department [place] [address] * (ABNORMAL) Comprehensive metabolic panel (07/22/2021 9:24 PM CDT) Pathologist [facility] Sodium 135 135 - 145 mmol/L [facility] ([place]) Potassium, pl 3.9 3.3 - 4.9 mmol/L [facility]) Chloride 99 97 - 110 mmol/L [facility]) CO2 24 22 - 32 mmol/L [facility]) Anion gap 11 2 - 15 mmol/L [facility]) BUN 7(L) 8 - 25 mg/dL [facility]) Creatinine 0.55(L) 0.60 - 1.10 mg/dL [facility]) Glucose 84 70 - 199 mg/dL [facility] ([place]) Comment: Interpretive Data Fasting glucose >/= 126 [...] classification and Diagnosis of Diabetes Diabetes Care 2017;40 (Suppl. 1):S11. Current interpretive data was last revised 2017. Calcium 9.4 8.5 - 10.3 mg/dL [facility]) Bilirubin, total 0.2 0.1 - 1.2 mg/dL [facility]) Protein, pl 6.5 6.5 - 8.5 g/dL [facility]) Albumin 3.8 3.5 - 5.0 g/dL [facility]) Alk phos 113 40 - 130 Units/L [facility]) ALT 21 7 - 45 Units/L [facility]) AST 29 10 - 45 Units/L [facility]) Blood 07/22/2021 9:24 PM CDT 07/22/2021 9:27 PM CDT us Krzysztof Conte MD LAB BLOOD ORDERABLE S Final Result [facility] 1 [facility] Department [place] [address] * (ABNORMAL) D-dimer, quantitative (07/22/2021 9:24 PM CDT) D-Dimer 1,123(H) <=499 ng/mL [facility]U [facility] ([place]) Comment: Interpretive data FDA approved the D-dimer, in conjunction with a low or moderate pretest probability score, to exclude venous thromboembolic events (VTE) (PE and DVT) in outpatients when the D-dimer result is < 500 ng/ml FEU. ?? Evidence supports using an age-adjusted D-dimer cut-off for outpatients older than 50 (age x 10) to improve specificity without sacrificing sensitivity. Example: age 68, VTE cut-off 680 ng/ml FEU. References; Schpatricia HT et al. Brit Med J. 2013;346:f2492. Zuri et al. Annals Int Med. 2015;163:701-11. Current interpretive data was last revised on 2019. Blood 07/22/2021 9:24 PM CDT 07/22/2021 9:27 PM CDT us Krzysztof Conte MD LAB BLOOD ORDERABLE S Final Result [facility] ([place]) 1 [facility] Department [place] [address] documented in this encounter Visit Diagnoses Diagnosis Leg edema, right- Primary documented in this encounter Orders Nursing Count Last Ordered Date First Orde red Date ED NURSING ORDER 1 07/22/2021 documented in this encounter Care Teams Director Project Management Relationship Specialty Start Date End Date No, Physician PCP - General 07/22/21 08/15/21 Jarred Roy MD [address] [address] 01/30/19 Elma Echevarria NP [address] [address] Nurse Practitioner General Surgery 12/16/19 documented as of this encounter
--- OUTSIDE RECORDS SUMMARY | 2024-05-10 20:16 | XMS_ITS | Encounter Summary ---
Author Organization [facility] Healthcare Address [address] [place] [address] Care Team Providers Care Utility Bill Collection Clerk Name Role Phone Jarred Roy MD Unavailable [phone] Elma Echevarria NP Unavailable No, Physician Primary Care Provider [phone] Encounter Details Date Type Department Care Team (Latest Contact Info) Description 12/13/2023 10:29 AM CDT - 12/13/2023 11:59 PM CDT Hospital Encounter [address] [address] Supervision of high-risk , first [...] any clubs o r organizations such as islam groups, unions, fraternal or athletic groups, or [...] in a half-way (including now)? 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 Gender Identity Not on file Sexual Orientation [...] 12/13/2023 04/18/2024 riboflavin, vitamin B2, 400 mg tabletIndications :Migraine Prevention Take 400 mg by mouth daily 30 tablet 3 12/13/2023 01/31/2024 documented as of this encounter Discharge Disposition Disposition Code Departure Means Destination Discharge to home or self care documented in this encounter Plan of Treatment Not on file documented as of this encounter Procedures Procedure Name Priority Date/Time Associated Diagnosis Comments URINE CULTURE Routine 12/13/2023 12:50 PM CDT Supervision of high-risk , first trimester documented in this encounter Results * (ABNORMAL) Urine culture Urine, clean voided [...] allergic patients, please contact the laboratory at [phone] to request susceptibility testing * ??* ??* [...] STREPTOCOCCUS AGALACTIAE (GROUP B STREPTOCOCCI) [facility] Organism (CLINICALLY INSIGNIFICANT [facility] Urine, clean voided 12/13/2023 12:50 PM CDT 12/13/2023 1:04 PM CDT Narrative [facility] - 12/15/2023 6:35 AM CDT Testing performed by [facility] ([phone]) Janeth Zacarias NP LAB MICROBIOLOGY - GENERAL ORDERABLES Final Result [facility] [place] [address] documented in this encounter Visit Diagnoses Diagnosis Supervision of high-risk , first trimester documented in this encounter Care Teams Utility Bill Collection Clerk Relationship Specialty Start Date End Date No, Physician PCP - General 12/03/23 Jarred Roy MD [address] [address] 01/30/19 Elma Echevarria NP [address] [facility] [address] Nurse Practitioner General Surgery 12/16/19 documented as of this encounter
--- OUTSIDE RECORDS SUMMARY | 2024-05-10 20:16 | XMS_ITS | Encounter Summary ---
Author Organization [facility] Address [address] [place] [address] Phone Care Team Providers Care Distributor Sales Consultant Name Role Phone Jarred Roy MD Unavailable [phone] Elma Echevarria NP Unavailable BurlingtonLaura Thornton NP Primary Care Provider [phone] Encounter Details Date Type Department Care Team (Late st Contact Info) Description 09/25/2023 Telephone [facility] Obstetrics and Gynecology [facility] [place] [address] Kinjal Mason Social History Tobacco Use Types Packs/Day Years [...] often do you attend chur ch or orthodox services? Never 07/21/2021 Do you belong to any clubs o r organizations such as denominational groups, unions, fraternal or athletic groups, or [...] a skilled nursing (including now)? No 07/21/2021 [place] Depression Scale Answer Date Recorded [place] Depression Scale Total 6 09/03/2021 The thought of harming myself has occurred to me . 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 (DM) documented in this encounter Plan of Treatment Not on file documented as of this encounter Visit Diagnoses Not on filedocumented in this encounter Care Teams Distributor Sales Consultant Relationship Specialty Start Date End Date Laura Madrid NP [address] [place] [address] PCP - General Nurse Practitioner 02/09/22 12/02/23 Jarred Roy MD [address] [facility] [address] [place] [address] 01/30/19 Elma Echevarria NP [address] [facility] [address] [address] Nurse Practitioner General Surgery 12/16/19 documented as of this encounter
--- OUTSIDE RECORDS SUMMARY | 2024-05-10 20:16 | XMS_ITS | Encounter Summary ---
Author Organization [facility] Healthcare Address [address] [place] [address] Care Team Providers Care Management Manager Name Role Phone Jarred Roy MD Unavailable [phone] Elma Echevarria NP Unavailable BrewsterLaura Thornton NP Primary Care Provider [phone] Reason for Referral * Diagnostic Imaging (Routine) - Closed Specialty Diagnoses / Procedures Referred By Contac t Referred To Contact Diagnoses High-risk supervision, unspecified trimester Procedures US Ob 14 Weeks Or Over Janett Robles NP [address] [facility] [address] [facility] [address] L[place]IE [address] [address] Phone: tel: fax: [facility] (All Locations) Referral ID Status Reason Start Date Expiration Date Visits Re quested Visits Authorized [id number] Closed 09/25/2023 10/24/2024 1 1 Reason for Visit * Diagnostic Imaging (Routine) - Closed Specialty Diagnoses / Procedures Referred By Contac t Referred To Contact Diagnoses High-risk supervision, unspecified trimester Procedures US Ob 14 Weeks Or Over Janett Robles NP [address] [facility] [address] LEX[place] JANG [address] [place] [address] Phone: tel: fax: [facility] (All Locations) Referral ID Status Reason Start Date Expiration Date Visits Re quested Visits Authorized [id number] Closed 09/25/2023 10/24/2024 1 1 Encounter Details Date Type Department Care Team (Latest Contact Info) Description 10/13/2023 9:15 AM CDT - 10/13/2023 11:59 PM CDT Hospital Encounter [facility] Ul[facility]ound [address] [facility]th [address], [address] [facility] [place] [address] High-risk supervision, unspecified trimester Discharge Disposition: Discharge to home or [...] often do you attend chur ch or episcopal services? Never 07/21/2021 Do you belong to [...] health care facility (including now)? No 07/21/2021 [place] Depression Scale Answer Date Recorded [place] Depression Scale Total 6 09/03/2021 The thought of harming myself has occurred to me . 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 Gender Identity Not on file Sexual Orientation [...] Priority Date/Time Associated Diagnosis Comments US OB 14 WEEKS OR OVER Schedule Routine, Read Routine (OP Routine) 10/13/2023 9:19 AM CDT High-risk supervision, unspecified trimester documented in this encounter Results * US Ob 14 Weeks Or Over (10/13/2023 9:19 AM CDT) Fetus# Fetus1 VIEWPOINT Estimated Weight 101 g&grams VIEWPOINT Placenta Details posterior VIEWPOINT Presentation Transverse Lie VIEWPOINT Anatomical Region Laterality Modality Abdomen N/A Ultrasound 10/13/2023 9:20 AM CDT Impressions 10/13/2023 10:06 AM CDT Viable IUP - 14w 2d per stated CICI - size is AGAM visit to follow. Narrative Procedure Note Josué Lemus MD - 10/13/2023 IMPRESSION: Viable IUP - 14w 2d per stated CICI - size is AGAM visit tofollow. us Janett Robles CRUSHER SETTER IMG OB US PROCEDURES Final R esult documented in this encounter Visit Diagnoses Diagnosis High-risk supervision, unspecified trimester documented in this encounter Care Teams Management Manager Relationship Specialty Start Date End Date Laura Madrid NP [address] [place] [address] [facility] [address] [place] [address] PCP - General Nurse Practitioner 02/09/22 12/02/23 Jarred Roy MD [address] [facility] [address] [address] 01/30/19 Elma Echevarria NP [address] [facility] [address] [address] Nurse Practitioner General Surgery 12/16/19 documented as of this encounter
--- OUTSIDE RECORDS SUMMARY | 2024-05-10 20:16 | XMS_ITS | Encounter Summary ---
Author Organization [facility] Address [address] [place] [address] Phone Care Team Providers Care Nuclear Physics Professor Name Role Phone Jarred Roy MD Unavailable [phone] Elma Echevarria NP Unavailable No, Physician Primary Care Provider [phone] Reason for Visit * Reason Comments High Risk Gestation Encounter Details Date Type Department Care Team (Late st Contact Info) Description 02/14/2024 9:15 AM CDT Office Visit [facility] Maternal- Medicine [facility] Health 7th Floor [address] [place] [address] Elevated blood pressure reading without [...] any clubs o r organizations such as roman catholic groups, unions, fraternal or athletic groups, or [...] a long term (including now)? 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 Gender Identity Not on file Sexual Orientation Not on file documented as of this encounter Last Filed Vital Signs Vital Sign Reading Time Taken Comments Blood Pressure 121/82 02/14/2024 9:17 AM CDT Pulse 98 02/14/2024 9:17 AM CDT Temperature - - Respiratory Rate - - Oxygen Saturation 97% 02/14/2024 9:17 AM CDT Inhaled Oxygen Concentration - - Weight 146.7 kg (323 lb 6.4 oz) 02/14/2024 9:17 AM CDT Height - - Body Mass Index 53.82 01/31/2024 9:34 AM CDT documented in this encounter Ordered Prescriptions Prescription Sig Dispense Quantity Refills Last Filled Start Date End Date famotidine (PEPCID) 20 mg tablet Take 1 tablet (20 mg total) by mouth 2 (two) times a day 60 tablet 3 02/14/2024 04/18/2024 documented in this encounter Progress Notes * Janeth Zacarias, NHI - 02/14/2024 9:15 AM CDT [facility] Return Visit 02/14/2024 Mary Singh is a 23 y.o. at 32w0d who is here for a return OB visit. Her is complicated by proteinuria, obesity, h/o pp hemorrhage and family history of ONTD. Subjective: Several complaints today. States she has had uterine tightening but it is not painful. She denies painful contractions, VB or LOF. She does have new back pain that is constant but sometimes comes and goes. She has good movement. She reports increased heartburn but is not currentlytaking anything. She reports palpations and heat waves. She denies chest pain, SOB or irregular heartbeat. Objective: BP 121/82 Pulse 98 Wt (!) 323 lb 6.4 oz (146.7 kg) LMP 07/05/2023 (Exact Date) SpO2 97% BMI 53.82 kg/m?? General: NAD Abdomen: Soft, gravid, NT, FHR + SVE: internally closed/3/posterior (soft) Ultrasound: n/a Assessment/Plan: Mary Singh is a 23 y.o. at 32w0d with a complicated by the following: Problem [...] [] 3rd trimester anesthesia consultation if BMI >/=50- scheduled for today [x] Weekly testing at 34 weeks (BMI [...] high-risk , first trimester Overview [x] Full [facility] Care as of 12/13/2023 [x] [employer] email sent 12/12 Referring Provider: Janett Robles [phone] [] or Medicare Insurance [x] Dating Criteria: [...] 28 wks: 01/17/2024 3rd Tri Labs: [] CBC/HIV/RPR/T&S: [] GBS: [x] testing: weekly at 34 weeks 2/2 [...] makes. She is considering exclusively pumping. [x] Pathology Technologist: [] PP Depression Discussed: #palpations/heat waves - hospital precautions reviewed for SOB or chest pain associated - if they continue will plan for holter monitor #heartburn - lifestyle modifications reviewed - rx today for pepcid Strict PTL/PEC/FKC precautions reviewed. Reviewed the importance of presenting to her closest hospital in the case of an emergency for evaluation and if necessary and safe will be transferred to [facility] [place] documented in this encounter Plan [...] , first trimester documented in this encounter Historical Medications * This list may reflect changes made after this encounter. [employer] COVID-19 Ag Self Test kit TEST DIRECTED TODAY 01/26/2024 04/04/2024 added in this encounter Care Teams Nuclear Physics Professor Relationship Specialty Start Date End Date No, Physician PCP - General 12/03/23 Jarred Roy MD [address] [place] [address] 01/30/19 EyeElma charles NP [address] [facility] [address] [address] Nurse Practitioner General Surgery 12/16/19 documented as of this encounter
--- OUTSIDE RECORDS SUMMARY | 2024-05-10 20:16 | XMS_ITS | Encounter Summary ---
Author Organization [facility] Healthcare Address [address] [place] [address] Care Team Providers Care Care Professionals Name Role Phone Jarred Roy MD Unavailable [phone] Elma Echevarria NP Unavailable Venecia Turner MD Primary Care Provider [phone] Reason for Visit * Reason Comments Care Encounter Details Date Type Department Care Team (Late st Contact Info) Description 08/26/2021 2:15 PM CDT Office Visit [facility] [address] [facility] Health 3rd Floor [address] [place] [address] Harika Abrams MD [address] [facility] [phone] [place] [address] Yvette Stein MD [address] [place] [address] Perineal laceration, (Primary Dx); Vaginal burning Discharge Disposition: Discharge to home or self [...] often do you attend chur ch or buddhist services? Never 07/21/2021 Do you belong to [...] place to sleep or slept in a fpc (including now)? No 07/21/2021 [place] Depression Scale Answer Date Recorded [place] Depression Scale Total 7 08/26/2021 The thought of harming myself has occurred to me . 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 Gender Identity Not on file Sexual Orientation Not on file documented as of this encounter Last Filed Vital Signs Vital Sign Reading Time Taken Comments Blood Pressure 121/71 08/26/2021 2:19 PM CDT Pulse 85 08/26/2021 2:19 PM CDT Temperature 36.3 ??C (97.3 ??F) 08/26/2021 2:19 PM CD T Respiratory Rate 17 08/26/2021 2:19 PM CDT Oxygen Saturation 100% 08/26/2021 2:19 PM CDT Inhaled Oxygen Concentration - - Weight 130.2 kg (287 lb) 08/26/2021 2:19 PM CDT Height - - Body Mass Index 47.76 08/25/2021 6:29 PM CDT documented in this encounter Ordered Prescriptions Prescription Sig Dispense Quantity Refills Last Filled Start Date End Date lidocaine jelly (XYLOCAINE) 2 % Apply topically as needed for pain (discomfort) 45 mL 08/26/2021 2 sulfamethoxazole-t rimethoprim (BACTRIM DS) 800-160 mg per tablet Take 1 tablet by mouth 2 (two) times a day for 7 days 14 tablet 08/26/2021 2 norethindrone ac-eth estradioL (Loestrin ,) 1-20 mg-mcg per tablet Take 1 tablet by mouth daily 28 tablet 12 08/26/2021 2 documented in this encounter Discharge Disposition Disposition Code Departure Means Destination Discharge to home or self care documented in this encounter Progress Notes * Shaunna Smith RN - 08/26/2021 2:15 PM CDT EPDS = 7. Care team aware. Answer to last question = 0 (never). * Yvette Stein MD - 08/26/2021 2:15 PM CDT Gynecology Outpatient Visit Chief Complaint: vulvar swelling History of Present Illness: 21 y.o. s/p on 07/20 c/b EBL 900 mL (atony, first degree andright vaginal sidewall lacs) presents for vulvar swelling and pain. Started to have burning but last night felt a lump on the right side. She was seen at [facility] ED last night due to worsening symptoms over 2-3 days, thought to possibly have infected Bartholin's cyst. Was offered I&D however desired to wait to be evaluated in OBGYN clinic today. She was discharged home with recommendation for topical lidocaine and sitz baths. From a standpoint she is otherwise doing well and is scheduled for PP visit with Dr. Daniels next week. Bleeding appropriate, formula feeding, no f/c, tolerating PO, no n/v, no bowel/bladder complaints, was planning IUD but wishes to defer given current genital complaints. Past Medical History: Past Medical History: Diagnosis Date ??? Closed nondisplaced fracture of medial cuneiform of right foot 06/03/2019 ??? HX OTHER MEDICAL T&A in 2011; Comments: MIRANDA 05/20/2014 - ??? HX OTHER MEDICAL elbow fracture 02-06-15.; Comments: MIRANDA 02/09/2015 - Past Surgical History: Past Surgical History: Procedure Laterality Date ??? TONSILLECTOMY/ADENOIDECTOMY Bilateral Obstetric History: OB History 1 Para 1 Term 1 AB Living 1 SAB IAB Ectopic Multiple 0 Live Births 1 Home Medications: HOME MEDICATIONS : acetaminophen 500 mg capsule albuterol HFA (PROVENTIL HFA,VENTOLIN HFA,PROAIR HFA) 90 mcg/actuation inhaler docusate sodium (COLACE) 100 mg capsule fluticasone propionate (FLONASE) 50 mcg/actuation nasal spray ibuprofen (ADVIL,MOTRIN) 600 mg tablet lidocaine HCL 3 % cream polyethylene glycol (MIRALAX) 17 gram packet Allergies as of 08/26/2021 ??? (No Known Allergies) Family History: Family History Problem Relation Age of Onset ??? Hypertension Father Hypertension; ??? Other Mother Alive and well at age 44.; Social History: Social History Tobacco Use ??? Smoking status: Never Smoker ??? Smokeless tobacco: Never Used Substance Use Topics ??? Alcohol use: No Review of Systems: Negative except as per HPI Physical Exam: BP 121/71 (BP Location: Right arm, Patient Position: Sitting) Pulse 85 Temp 36.3 ??C (97.3 ??F)(Temporal) Resp 17 Wt 287 lb (130.2 kg) SpO2 100% BMI 47.76 kg/m?? General: NAD, mood appropriate Pulmonary: non-labored Cardiovascular: Regular rate and rhythm Abdomen: soft, non-tender, non-distended, without rebound or guarding Extremities: Warm and well perfused GENITAL EXAM: External genital exam with mild erythema around right labium minus, mild induration at this area but no clear fluctuance or area consistent with Bartholin's cyst or abscess. Small tail of suture visible at superior portion of labium minus. Healing perineal laceration. Assessment Patient is a 21 y.o. presents with vulvar pain Plan #Vulvar pain after vaginal delivery -Exam without evidence of bartholin's abscess -Most likely c/w normal healing process but given mild erythema plan to empirically treat with 7 day course of bactrim -Recommended keeping f/u appointment next week with Dr. Daniels to ensure healing -Recommend continuing sitz baths, rx provided for alternate formulation of lidocaine jelly to see which covered by insurance, if not can try OTC formulation #PP care -Does not desire IUD, rx sent for Loestrin (no CI to estrogen) Patient seen and discussed with Dr. Zavala. Yvette Stein MD 08/26/2021 Cosigned by Kerry Zavala DO at 08/30/2021 11:10 AM CDT Associated attestation - Kerry Zavala DO - 08/30/2021 11:10 AM CDT I have seen and examined the patient. I agree with the findings and plan of care as documented in the resident/fellow's note. 21 year old who presents for follow up from presenting to [facility] for vaginal pain and was diagnosed with possible bartholins glad abscess. Exam today not consistent with bartholins gland abscess. Vulva consistent with healing s/p perineal laceration after delivery. Mildly erythematous today- will treat with Bactrim x 7 days. Recommended Sitz bath, topical lidocaine. RTC in for IUD insertion. Kerry Zavala DO documented in this encounter Plan of Treatment Not on file documented as of this encounter Visit Diagnoses Diagnosis Perineal laceration, - Primary Unspecified perineal laceration, Vaginal burning Other specified symptom associated with female genital organs documented in this encounter Care Teams Care Professionals Relationship Specialty Start Date End Date Venecia Turner MD [address] [place] [address] [address] [facility] [address] [place] [address] PCP - General 08/16/21 02/08/22 Jarred Roy MD [address] [address] 01/30/19 Elma Echevarria NP [address] [address] Nurse Practitioner General Surgery 12/16/19 documented as of this encounter
--- OUTSIDE RECORDS SUMMARY | 2024-05-10 20:16 | XMS_ITS | Encounter Summary ---
Author Organization [facility] Healthcare Address [address] [place] [address] Care Team Providers Care Group Director Name Role Phone Jarred Roy MD Unavailable Elma Echevarria NP Unavailable No, Physician Primary Care Provider [phone] Reason for Referral * Diagnostic Imaging (Routine) - Closed Specialty Diagnoses / Procedures Referred By Contac t Referred To Contact Diagnoses Obesity affecting in first trimester, unspecified obesity type Procedures Ob Limited Janeth Zacarias NP [address] [facility] [phone] [place] [address] Phone: tel: fax: [facility] (All Locations) Referral ID Status Reason Start Date Expiration Date Visits Re quested Visits Authorized [id number] Closed 11/24/2023 12/23/2024 1 1 Reason for Visit * Diagnostic Imaging (Routine) - Closed Specialty Diagnoses / Procedures Referred By Contac t Referred To Contact Diagnoses Obesity affecting in first trimester, unspecified obesity type Procedures Ob Limited Janeth Zacarias NP [address] [phone] [place] [address] Phone: tel: fax: [facility] (All Locations) Referral ID Status Reason Start Date Expiration Date Visits Re quested Visits Authorized [id number] Closed 11/24/2023 12/23/2024 1 1 Encounter Details Date Type Department Care Team (Latest Contact Info) Description 12/13/2023 8:45 AM CDT - 12/13/2023 11:59 PM CDT Hospital Encounter [facility] [address] [facility], 7th Floor, [address] [place] [address] Obesity affecting in first trimester, unspecified obesity [...] place to sleep or slept in a chcf (including now)? 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 Gender Identity Not on file Sexual Orientation [...] Priority Date/Time Associated Diagnosis Comments US OB LIMITED Schedule Routine, Read Routine (OP Routine) 12/13/2023 8:56 AM CDT Obesity affecting in first trimester, unspecified obesity type documented in this encounter Results * US Ob Limited (12/13/2023 8:56 AM CDT) Fetus# Fetus1 VIEWPOINT Placenta Details posterior, Previa-no, no placental masses VIEWPOINT Presentation Breech VIEWPOINT Anatomical Region Laterality Modality Abdomen N/A Ultrasound 12/13/2023 9:06 AM CDT Impressions 12/13/2023 10:12 AM CDT 23+0 weeks IUP The anatomy of the face and heart were seen and appear normal. Narrative Procedure Note Alec Ziegler MD - 12/13/2023 IMPRESSION: 23+0 weeks IUP The anatomy of the face and heart were seen and appearnormal. us Janeth Zacarias NP IMG OB US PROCEDURE S Final Result documented in this encounter Visit Diagnoses Diagnosis Obesity affecting in first trimester, unspecified obesity type documented in this encounter Care Teams Group Director Relationship Specialty Start Date End Date No, Physician PCP - General 12/03/23 Jarred Roy MD [address] [address] 01/30/19 Elma Echevarria NP 2 [facility] [address] Nurse Practitioner General Surgery 12/16/19 documented as of this encounter
--- OUTSIDE RECORDS SUMMARY | 2024-05-10 20:16 | XMS_ITS | Encounter Summary ---
Author Organization [facility] Healthcare Address [address] [place] [address] Care Team Providers Care Sewer Bricklayer Name Role Phone Jarred Roy MD Unavailable [phone] EyersElma NP Unavailable No, Physician Primary Care Provider [phone] Reason for Visit * Reason Comments Headache Encounter Details Date Type Department Care Team (Late st Contact Info) Description 12/03/2023 8:01 AM CDT - 12/03/2023 11:49 AM CDT Emergency [facility] Emergency Department [address] [place] [address] Kvng Palm MD [address] [place] [id number] Migraine without aura and without status migrainosus, not intractable (Primary Dx) Discharge Disposition: Discharge to home [...] often do you attend chur ch or mandaeism services? Never 07/21/2021 Do you belong to any clubs o r organizations such as anabaptist groups, unions, fraternal or athletic groups, or [...] a group home (including now)? 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 Gender Identity Not on file Sexual Orientation Not on file documented as of this encounter Last Filed Vital Signs Vital Sign Reading Time Taken Comments Blood Pressure 97/45 12/03/2023 11:00 AM CDT Pulse 75 12/03/2023 11:00 AM CDT Temperature 36.8 ??C (98.2 ??F) 12/03/2023 7:57 AM CD T Respiratory Rate 16 12/03/2023 7:56 AM CDT Oxygen Saturation 98% 12/03/2023 11:00 AM CDT Inhaled Oxygen Concentration - - Weight 131.5 kg (290 lb) 12/03/2023 7:58 AM CDT Height 165.1 cm (5' 5 ) 12/03/2023 7:58 AM CDT Body Mass Index 48.26 12/03/2023 7:58 AM CDT documented in this encounter Discharge Instructions * Discharge Instructions* Kvng Palm MD - 12/03/2023 11:29 AM CDT Take Tylenol as needed. Follow up with your OBGYN. * Attachments The following attachments cannot be sent through Care Everywhere. * Migraine Headache (Discharge Care) (Maori) documented in this encounter Medications at Time [...] s Discharge to home or self care documented in this encounter ED Notes * Kvng Palm MD - 12/03/2023 9:00 AM CDT HPI Chief Complaint Patient presents with Headache Patient has a headache for 3 days. It starts in the back of the head and radiates around to the front. She is 21 weeks . She felt weak yesterday. She had some edema 2 days ago. No fever, chest pain, shortness breath. She has nausea but no vomiting. Patient is on magnesium. No aura. Patient History: Patient Active Problem List Diagnosis Date Noted Rh negative state in antepartum period 10/04/2023 Maternal varicella, non-immune 10/04/2023 Obesity complicating in first trimester 10/04/2023 GBS (group b Streptococcus) UTI complicating , first trimester 10/04/2023 Proteinuria complicating in first trimester 10/04/2023 Family history of spina bifida 10/04/2023 Supervision of high-risk , first trimester 10/04/2023 History of hemorrhage, currently in first trimester 10/04/2023 Chronic migraine without aura without status migrainosus, not intractable 02/09/2022 Acute sinusitis 07/16/2021 Facial swelling 08/08/2019 Loss of hair 06/25/2019 Iron deficiency 11/19/2018 Migraine 11/19/2018 Astigmatism 09/18/2018 [id number] spots 09/18/2018 Vitamin D deficiency 09/18/2018 Chronic daily headache 12/16/2016 Past Medical History: Diagnosis Date Closed nondisplaced [...] Procedure Laterality Date CYST REMOVAL TONSILLECTOMY/ADENOIDECTOMY Bilateral Family History Problem Relation Age of Onset Hypertension Father Hypertension; Other Mother Alive and well at age 44.; Social History Tobacco Use Smoking status: Never Smokeless tobacco: Never Vaping Use Vaping status: Never Used Substance and Sexual Activity Alcohol use: No Drug use: Never Sexual activity: Yes Partners: Male control/protection: None Social History Social History Narrative Not on file Review of Systems Review of Systems Constitutional: Negative for chills and fever. HENT: Negative for congestion, rhinorrhea and sore throat. Eyes: Negative for pain. Respiratory: Negative for cough and shortness of breath. Cardiovascular: Positive for leg swelling. Negative for chest pain. Gastrointestinal: Positive for nausea. Negative for abdominal pain, diarrhea and vomiting. Genitourinary: Negative for difficulty urinating. Musculoskeletal: Negative for myalgias. Skin: Negative for rash. Neurological: Positive for headaches. Negative for dizziness. Psychiatric/Behavioral: Negative for behavioral problems. Physical Exam ED Triage Vitals Temp Pulse Resp BP SpO2 12/03/23 0757 12/03/23 0756 12/03/23 0756 12/03/23 0756 12/03/23 0758 36.8 ??C (98.2 ??F) 84 16 123/67 100 % Temp src Heart Rate Source Patient Position BP Location FiO2 (%) 12/03/23756 -- -- -- -- Temporal Height Height Method Weight Weight Method 12/03/23 0758 12/03/23 0758 12/03/23 0758 12/03/23 0758 1.651 m (5' 5 ) Stated 131.5 kg (290 lb) Stated Physical Exam Vitals and nursing note reviewed. Constitutional: General: She is not in acute distress. Appearance: She is well-developed. HENT: Head: Normocephalic and atraumatic. Eyes: Conjunctiva/sclera: Conjunctivae normal. Cardiovascular: Rate and Rhythm: Normal rate and regular rhythm. Heart sounds: No murmur heard. Pulmonary: Effort: Pulmonary effort is normal. No respiratory distress. Breath sounds: Normal breath sounds. Abdominal: Palpations: Abdomen is soft. Tenderness: There is no abdominal tenderness. Musculoskeletal: General: No swelling. Cervical back: Neck supple. Skin: General: Skin is warm and dry. Capillary Refill: Capillary refill takes less than 2 seconds. Neurological: Mental Status: She is alert. Psychiatric: Mood and Affect: Mood normal. Labs Reviewed URINALYSIS AND REFLEX TO MICROSCOPIC AND CULTURE - Abnormal Result Value Color, ur Yellow Clarity, ur Clear Specific gravity, ur 1.008 pH, urine 8.0 Protein, ur ql Negative Glucose, ur ql Negative Ketones, ur Negative Bilirubin, ur Negative Blood, ur Negative Urobilinogen, ur <2.0 Nitrite, ur Negative Leukocyte esterase, ur 3+ (*) UA reflex comment Reflex to microscopic UA will be performed. CBC WITH AUTO DIFFERENTIAL - Abnormal WBC 6.9 Hgb 12.1 Hct 35.5 (*) Plt 215 MPV 9.7 RBC 3.85 (*) MCV 92.2 MCH 31.4 MCHC 34.1 RDW CV 13.6 RDW SD 45.7 NRBC abs 0.00 COMPREHENSIVE METABOLIC PANEL - Abnormal Sodium 136 Potassium, pl 4.1 Chloride 105 CO2 20 (*) Anion gap 11 BUN 5 (*) Creatinine 0.37 (*) Glucose 82 Calcium 9.0 Bilirubin, total 0.3 Protein, pl 6.5 Albumin 3.8 Alk phos 74 ALT 21 AST 18 URINALYSIS, MICROSCOPIC ONLY - Abnormal WBC, ur 6-10 (*) RBC, ur 0-2 Epithelial cells, squamous, ur 11-20 (*) Bacteria, ur 3+ (*) Mucous, ur Present (*) Culture Reflex Comment Value: Reflex conditions for urine culture (WBC >10) not met. LACTATE DEHYDROGENASE Lactate dehydrogenase (LDH) 189 MAGNESIUM Magnesium 1.9 URIC ACID Uric acid 2.9 DIFFERENTIAL AUTO Neutrophil abs 5.2 Imm gran abs 0.0 Lymphocyte abs 1.0 Monocyte abs 0.5 Eosinophil abs 0.2 Basophil abs 0.0 Neutrophil pct 75.7 Imm gran pct 0.6 Lymphocyte pct 13.9 Monocyte pct 7.2 Eosinophil pct 2.5 Basophil pct 0.1 EGFR eGFR >90 No orders to display MDM Medical Decision Making Patient presents with headache. She is on magnesium for headache prophylaxis. She is 21 weeks . Amount and/or Complexity of Data Reviewed Labs: ordered. Details: Urine is contaminated Discussion of management or test interpretation with external provider(s): Differential diagnosis: Dehydration, migraine. Patient improved with Benadryl, Compazine, IV fluids. No evidence of preeclampsia. Follow up with OBGYN. Risk Prescription drug management. ED Course as of 12/03/23 1427 Time: 12/02 1126 Comment: Urine is contaminated. By: Kvng Palm MD Final diagnoses: Migraine without aura and without status migrainosus, not intractable Kvng Palm MD 12/03/23 1428 * Gina Braga RN - 12/03/2023 7:54 AM CDT Pt states she has had a headache for 3 days. Pt states she noticed her feet swelling. Pt states shewas weak yesterday. Pt states she has been taking magnesium. Pt states that she is 21 weeks. documented in this encounter Plan of Treatment Not on file documented as of this encounter Procedures Procedure Name Priority Date/Time Associated Diagnosis Comments EGFR STAT 12/03/2023 8:40 AM CDT DIFFERENTIAL AUTO STAT 12/03/2023 8:4 0 AM CDT URINALYSIS AND REFLEX TO MICROSCOPIC AND CULTURE STAT 12/03/2023 8:40 AM CDT CBC WITH AUTO DIFFERENTIAL STAT 12/03/2023 8:40 AM CDT URINALYSIS, MICROSCOPIC ONLY STAT 12/03/2023 8:40 AM CDT URIC ACID STAT 12/03/2023 8:40 AM CDT MAGNESIUM Routine 12/03/2023 8:40 AM CDT LACTATE DEHYDROGENASE STAT 12/03/2023 8:40 AM CDT COMPREHENSIVE METABOLIC PANEL STAT 12/03/2023 8:40 AM CDT documented in this encounter Results * eGFR (12/03/2023 8:40 AM CDT) eGFR >90 >=60 mL/min/1. 73 m2 Comment: [...] interpretive data was last reviewed 2021. Blood 12/03/2023 8:40 AM CDT 12/03/2023 8:52 AM CDT us Kvng Palm MD LAB BLOOD ORDERABLES Final R esult Performing Organization Address [facility] Co de Phone Number SAY HOLMAN ([place]) 1 [facility] [place] [address] * (ABNORMAL) Urinalysis, microscopic only (12/03/2023 8:40 AM CDT) WBC, ur 6-10(A) 0 - 5 /HPF RBC, ur 0-2 0 - 2 /HPF [facility] ([place]) Epithelial cells, squamous, ur 11-20(A) 0 - 5 /HPF [facility] ([place]) Bacteria, ur 3+(A) [facility] ([place]) Mucous, ur Present(A) [facility] ([place]) Culture Reflex Comment Reflex conditions for urine culture (WBC >10) not met. [facility] ([place]) Urine 12/03/2023 8:40 AM CDT 12/03/2023 8:52 AM CDT Kvng Palm MD LAB URINE ORDERABLES Final R esult Performing Organization Address [facility] Co de Phone Number SAY HOLMAN ([place]) 1 [facility] [place] [address] * Differential, auto (12/03/2023 8:40 AM CDT) Neutrophil abs 5.2 1.5 - 6.5 K/cumm Imm gran abs 0.0 0.0 - 0.1 K/cumm [facility] ([place]) Lymphocyte abs 1.0 0.8 - 3.3 K/cumm [facility] ([place]) Monocyte abs 0.5 0.2 - 0.8 K/cumm [facility] ([place]) Eosinophil abs 0.2 0.0 - 0.5 K/cumm [facility] ([place]) Basophil abs 0.0 0.0 - 0.1 K/cumm [facility] ([place]) Neutrophil pct 75.7 % [facility] ([place]) Comment: Interpretive Data Percent cell count reference ranges are not reported, since discordance with absolute values may lead to misinterpretation of CBC data. Current Interpretive Data was last revised on 2017. Imm gran pct 0.6 % [facility] ([place]) Comment: Interpretive Data Percent cell count reference ranges are not reported, since discordance with absolute values may lead to misinterpretation of CBC data. Current Interpretive Data was last revised on 2017. Lymphocyte pct 13.9 % [facility] ([place]) Comment: Interpretive Data Percent cell count reference ranges are not reported, since discordance with absolute values may lead to misinterpretation of CBC data. Current Interpretive Data was last revised on 2017. Monocyte pct 7.2 % [facility] ([place]) Comment: Interpretive Data Percent cell count reference ranges are not reported, since discordance with absolute values may lead to misinterpretation of CBC data. Current Interpretive Data was last revised on 2017. Eosinophil pct 2.5 % [facility] ([place]) Comment: Interpretive Data Percent cell count reference ranges are not reported, since discordance with absolute values may lead to misinterpretation of CBC data. Current Interpretive Data was last revised on 2017. Basophil pct 0.1 % [facility] ([place]) Comment: Interpretive Data Percent cell count reference ranges are not reported, since discordance with absolute values may lead to misinterpretation of CBC data. Current Interpretive Data was last revised on 2017. Blood 12/03/2023 8:40 AM CDT 12/03/2023 8:52 AM CDT us Kvng Palm MD LAB BLOOD ORDERABLES Final R esult SAY MANDA ([place]) 1 [facility] Department [place] [address] * Uric acid (12/03/2023 8:40 AM CDT) Uric acid 2.9 2.5 - 7.0 mg/dL Blood 12/03/2023 8:40 AM CDT 12/03/2023 8:52 AM CDT us Kvng Palm MD LAB BLOOD ORDERABLES Final R esult Performing Organization Address City/[facility]/ZIP Co de Phone Number SAY HOLMAN ([place]) 1 [facility] Department [place] [address] * (ABNORMAL) Urinalysis reflex to microscopic and culture Urine (12/03/2023 8:40 AM CDT) Color, ur Yellow Yellow Clarity, ur Clear Clear [facility] ([place]) Specific gravity, ur 1.008 1.003 - 1.030 [facility] ([place]) pH, urine 8.0 [facility] ([place]) Comment: Interpretive Data ? Urine pH is affected by diet, medications, systemic acid-base disturbances, and renal tubular function. ??pH may affect urinary stone formation. ??For example, urine pH below 6.0 may help reduce the tendency for calcium phosphate stones and pH greater than 6.0 may reduce the tendency for uric acid stone formation. Source: [facility] [employer] Current Interpretive Data was last revised on 2017 Protein, ur ql Negative Negative [facility] ([place]) Glucose, ur ql Negative Negative [facility] ([place]) Ketones, ur Negative Negative [facility] ([place]) Bilirubin, ur Negative Negative [facility] ([place]) Blood, ur Negative Negative [facility] ([place]) Urobilinogen, ur <2.0 <2.0 mg/dL [facility] ([place]) Nitrite, ur Negative Negative [facility] ([place]) Leukocyte esterase, ur 3+(A) Negative [facility] ([place]) UA reflex comment Reflex to microscopic UA will be performed. [facility] ([place]) Urine 12/03/2023 8:40 AM CDT 12/03/2023 8:52 AM CDT Kvng Palm MD LAB MICROBIOLOGY - GENERAL O RDERABLES Final Result [facility]AY [facility] ([place]) 1 [facility] Department [place] [address] * Magnesium (12/03/2023 8:40 AM CDT) Magnesium 1.9 1.4 - 2.5 mg/dL Blood 12/03/2023 8:40 AM CDT 12/03/2023 8:52 AM CDT Kvng Palm MD LAB BLOOD ORDERABLES Final R [facility] Performing Organization Address City/[facility]/ZIP Co de Phone Number SAY HOLMAN ([place]) [address] [place] [address] * Lactate dehydrogenase (LD) (12/03/2023 8:40 AM CDT) [facility] Lactate dehydrogenase (LDH) 189 100 - 250 Units/L Comment: Hemolysis present. ??Results may be affected. Slightly Hemolyzed Specimen Blood 12/03/2023 8:40 AM CDT 12/03/2023 8:52 AM CDT Kvng Palm MD LAB BLOOD ORDERABLES Final R esult Performing Organization Address [facility] Co de Phone Number SAY HOLMAN ([place]) 1 [facility] [place] [address] * (ABNORMAL) Comprehensive metabolic panel (12/03/2023 8:40 AM CDT) [facility] Sodium 136 135 - 145 mmol/L Potassium, pl 4.1 3.3 - 4.9 mmol/L [facility] ([place]) Chloride 105 97 - 110 mmol/L [facility] ([place]) CO2 20(L) 22 - 32 mmol/L [facility] ([place]) Anion gap 11 2 - 15 mmol/L [facility] ([place]) BUN 5(L) 6 - 25 mg/dL [facility] ([place]) Creatinine 0.37(L) 0.60 - 1.10 mg/dL [facility] ([place]) Glucose 82 70 - 199 mg/dL [facility] ([place]) Comment: Interpretive Data Fasting glucose >/= 126 [...] interpretive data was last revised 2022. Calcium 9.0 8.5 - 10.3 mg/dL [facility] ([place]) Bilirubin, total 0.3 0.1 - 1.2 mg/dL [facility] ([place]) Protein, pl 6.5 6.5 - 8.5 g/dL [facility] ([place]) Albumin 3.8 3.5 - 5.0 g/dL [facility] ([place]) Alk phos 74 40 - 130 Units/L [facility] ([place]) ALT 21 7 - 45 Units/L [facility] ([place]) AST 18 10 - 45 Units/L [facility] ([place]) Comment:Slightly Hemolyzed S pecimen Blood 12/03/2023 8:40 AM CDT 12/03/2023 8:52 AM CDT us Kvng Palm MD LAB BLOOD ORDERABLES Final R esult [facility] ([place]) 1 [facility] Department [place] [address] * (ABNORMAL) CBC with auto differential (12/03/2023 8:40 AM CDT) WBC 6.9 3.8 - 9.9 K/cumm Hgb 12.1 11.9 - 15.5 g/dL [facility] ([place]) Hct 35.5(L) 35.6 - 45.5 % [facility] ([place]) Plt 215 150 - 400 K/cumm [facility] ([place]) MPV 9.7 9.1 - 12.3 fL [facility] ([place]) RBC 3.85(L) 3.90 - 5.20 M/cumm [facility] ([place]) MCV 92.2 81.3 - 96.4 fL [facility] ([place]) MCH 31.4 27.1 - 33.3 pg [facility] ([place]) MCHC 34.1 32.3 - 35.7 g/dL [facility] ([place]) RDW CV 13.6 11.1 - 14.9 % [facility] ([place]) RDW SD 45.7 35.7 - 48.1 fL [facility] ([place]) NRBC abs 0.00 0.00 - 0.01 K/cumm [facility] ([place]) Blood 12/03/2023 8:40 AM CDT 12/03/2023 8:52 AM CDT us Kvng Palm MD LAB BLOOD ORDERABLES Final R esult [facility] ([place]) 1 [facility] Department [place] [address] documented in this encounter Visit Diagnoses Diagnosis Migraine without aura and without status migrainosus, not intractable- Primary documented in this encounter Administered Medications Inactive Administered Medications - up to 3 most recent administrations Medication Order MAR Action Action Date Dose Rate Site diphenhydrAMINE (BENADRYL) 50 mg/mL injection 25 mg 25 mg, intravenous, Administer over 2 Minutes, Once, On 12/03/23 at 0823, For 1 dose Given 12/03/2023 8:45 AM CDT 25 mg prochlorperazine (COMPAZINE) injection 5 mg 5 mg, intravenous, Administer over 2 Minutes, Once, On 12/03/23 at 0823, For 1 dose Given 12/03/2023 8:45 AM CDT 5 mg sodium chloride 0.9% bolus 1,000 mL 1,000 mL, intravenous, Once, On 12/03/23 at 0823, For 1 dose New Bag 12/03/2023 8:44 AM CDT 1,000 mL documented in this encounter Active and Recently Administered Medications Times are shown in CDT. Scheduled Medication Order 12/01/2023 12/02/2023 12/03/2023 diphenhydrAMINE (BENADRYL) 50 mg/mL injection 25 mg (COMPLETED) 25 mg, intravenous, Administer over 2 Minutes, Once, On 12/03/23 at 0823, For 1 dose 0845 (Given - Provid er: Luz Maria Dooley RN) prochlorperazine (COMPAZINE) injection 5 mg (COMPLETED) 5 mg, intravenous, Administer over 2 Minutes, Once, On 12/03/23 at 0823, For 1 dose 0845 (Given - Provid er: Luz Maria Dooley, TRAY) sodium chloride 0.9% bolus 1,000 mL (COMPLETED) 1,000 mL, intravenous, Once, On 12/03/23 at 0823, For 1 dose 0844 (New Bag - Prov ider: Luz Maria Dooley RN)1100 (Stopped - Provider: Luz Maria Dooley RN) documented in this encounter Care Teams Sewer Bricklayer Relationship Specialty Start Date End Date No, Physician PCP - General 12/03/23 Jarred Roy MD [address] [facility] [address] [address] 01/30/19 Elma Echevarria NP [address] [facility] [address] [address] Nurse Practitioner General Surgery 12/16/19 documented as of this encounter
--- OUTSIDE RECORDS SUMMARY | 2024-05-10 20:16 | XMS_ITS | Encounter Summary ---
Author Organization [facility] Address [address] [place] [address] Phone Care Team Providers Care Formal Waiter/Waitress Name Role Phone Jarred Roy MD Unavailable [phone] Elma Echevarria NP Unavailable No, Physician Primary Care Provider [phone] Encounter Details Date Type Department Care Team (Late st Contact Info) Description 12/14/2023 Orders Only [facility] [address] [facility] [address] [place] [address] Janeth Zacarias, NHI [address] [facility] [phone] [place] [address] Social History Tobacco Use Types Packs/Day Years [...] week 07/21/2021 How often do you attend [facility] or anabaptist services? Never 07/21/2021 Do you belong to [...] in a longterm (including now)? 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
--- OUTSIDE RECORDS SUMMARY | 2024-05-10 20:16 | XMS_ITS | Encounter Summary ---
Author Organization [facility] Address [address] [place] [address] Phone Care Team Providers Care Quality Assurance Technician Name Role Phone Jarred Roy MD Unavailable [phone] Elma Echevarria NP Unavailable MeagherLaura Thornton NP Primary Care Provider [phone] Reason for Referral * Diagnostic Imaging (Routine) - Closed Specialty Diagnoses / Procedures Referred By Loyd medrano Referred To Contact Diagnoses Obesity affecting in first trimester, unspecified obesity type Procedures US Ob Limited Janeth Zacarias NP [address] [facility] [phone] [place] [address] Phone: tel: fax: [facility] (All Locations) Referral ID Status Reason Start Date Expiration Date Visits Re quested Visits Authorized [id number] Closed 11/24/2023 12/23/2024 1 1 Reason for Visit * Reason Comments High Risk Gestation Encounter Details Date Type Department Care Team (Late st Contact Info) Description 11/24/2023 9:45 AM CDT Office Visit [facility] Maternal- Medicine [facility] [address] [place] [address] Supervision of high-risk , first trimester (Primary [...] any clubs o r organizations such as jehovah's witness groups, unions, fraternal or athletic groups, or [...] in a fpc (including now)? No 07/21/2021 Windham Depression Scale Answer Date Recorded [place] Depression Scale Total 6 09/03/2021 The thought of harming myself has occurred to me . Never 09/03/2021 Personal Safety Answer Date Recorded Getting School Help Needed Not on file 05/20 Comments Yes Sex and Gender Information Value Date Recorded Sex Assigned at Not on file Legal Sex Female 11:28 PM CURATOR OF COLLECTIONS Gender Identity Not on file Sexual Orientation Not on file documented as of this encounter Last Filed Vital Signs Vital Sign Reading Time Taken Comments Blood Pressure 101/69 11/24/2023 10:03 AM CDT Pulse 81 11/24/2023 10:03 AM CDT Temperature 36.1 ??C (97 ??F) 11/24/2023 10: 03 AM CDT Respiratory Rate 17 11/24/2023 10:0 3 AM CDT Oxygen Saturation 98% 11/24/2023 10: 03 AM CDT Inhaled Oxygen Concentration - - Weight 141.3 kg (311 lb 9.6 oz) 024 10:03 AM CDT Height 165.1 cm (5' 5 ) 11/24/2023 10:0 3 AM CDT Body Mass Index 51.85 11/24/2023 10:03 AM CDT documented in this encounter Progress Notes * Janeth Zacarias NP - 11/24/2023 9:45 AM CDT Dear Mrs. Travis NP It was a pleasure meeting again with our mutual patient in continued consultation. MFM Return Visit 11/24/2023 Mary Singh is a 23 y.o. at 20w2d who is here for a return OB visit. Her is complicated by proteinuria, obesity, h/o pp hemorrhage and family history of ONTD. Subjective: Reports being tired and continues to have hair loss. She has cramping but denies loss of fluid, or vaginal bleeding and reports good movement. She is unsure who she plans to deliverwith. Objective: BP 101/69 Pulse 81 Temp 36.1 ??C (97 ??F) Resp 17 Ht 165.1 cm (5' 5 ) Wt (!) 311 lb 9.6 oz (141.3 kg) LMP 07/05/2023 (Exact Date) SpO2 98% BMI 51.85 kg/m?? General: NAD Abdomen: Soft, gravid, NT, FHR + Ultrasound: incomplete, CL wnl, spine views normal- see finalized US report Assessment/Plan: Mary Singh is a 23 y.o. at 20w2d with a complicated by the following: Problem List CICI 04/10/24 Supervision of high-risk , first trimester - Primary Overview [x] Co-management [x] Blue Team Referring Provider: Janett Robles [phone] [] or Medicare Insurance [x] Dating Criteria: [...] PNBHS referral (if indicated) 2nd Tri Labs: [] Anatomy ultrasound: incomplete 11/24/2023 [] CBC/1hr gtt at 24-28wks: [] Tdap (27-36wks): [] Rhogam at 28 wks (if Rh neg): 3rd Tri Labs: [] CBC/HIV/RPR/T&S: [] GBS: [] GC/CT (if indicated): [] testing: [] RSV Counseling [] MOD: [] Place of delivery: pt undecided, will reach out to primary OB to discuss [] Last clinic visit SVE: [] IOL start agent: [] Epidural: [] Blood Products [] Consents signed: [] Stop ASA [] MOC: [] Method of feeding: [] Watch Crystal Edge Grinder: [] PP Depression Discussed: Proteinuria complicating in first trimester Overview Previously [...] Specialized anatomic survey at 20 weeks - incomplete [] Consider growth ultrasounds every 4 weeks at 28 weeks [] 3rd trimester anesthesia consultation if BMI >/=50 [] Weekly testing at 34 weeks (BMI >/=40) Relevant Orders US Ob Limited History of hemorrhage, currently in first trimester [...] delivery. Family history of spina bifida Overview Neural tube defects are typically multifactorial in nature. Ms. Singh's sister was determined to have a genetic etiology, and she is s/p counseling in her last . She did not have any questions and further discussion was deferred. The risk of occurrence of an open neural tube defect with an affected second degree relative 0.5%, third degree relative 0.17%. 11/24/2023 normal spine views Hospital precautions reviewed. My total encounter time on 11/24/2023 was 20 minutes. 15 minutes was spent counseling the patient. 5minutes was spent reviewing records and her US prior to the visit. This time does not include time spent in any separately reportable services. . Thank you for allowing me to participate in the care of this jj patient. If you have any questions or concerns do not hesitate to contact our office. Sincerely, SOUTH Top[facility] documented in this encounter Plan of Treatment Not on file documented as of this encounter Results * US Ob Limited (12/13/2023 8:56 AM CDT) Fetus# Fetus1 VIEWPOINT Placenta Details posterior, Previa-no, no placental masses VIEWPOINT Presentation Breech VIEWPOINT Anatomical Region Laterality Modality Abdomen N/A Ultrasound 12/13/2023 9:06 AM CDT Impressions 12/13/2023 10:12 AM CDT 23+0 weeks IUP The anatomy of the face and heart were seen and appear normal. Narrative Procedure Note Adrian Ziegler MD - 12/13/2023 IMPRESSION: 23+0 weeks IUP The anatomy of the face and heart were seen and appearnormal. us Janeth Zacarias PAVING CREW FOREMAN IMG OB US PROCEDURE S Final Result documented in this encounter Visit Diagnoses Diagnosis Supervision of high-risk , first trimester- Primary Proteinuria complicating in first trimester Obesity affecting in first trimester, unspecified obesity type History of hemorrhage, currently in first trimester Family history of spina bifida Family history of congenital anomalies Obesity affecting in first trimester, unspecified obesity type documented in this encounter Care Teams Quality Assurance Technician Relationship Specialty Start Date End Date Laura Madrid NP [address] [facility] [address] [place] [address] PCP - General Nurse Practitioner 02/09/22 12/02/23 aJrred Roy MD [address] [facility] [address] [address] 01/30/19 Elma Echevarria NP [address] [facility] [address] [address] Nurse Practitioner General Surgery 12/16/19 documented as of this encounter
--- OUTSIDE RECORDS SUMMARY | 2024-05-10 20:16 | XMS_ITS | Encounter Summary ---
Author Organization [facility] Address [address] [place] [address] Phone Care Team Providers Care Condominium Manager Name Role Phone Jarred Roy MD Unavailable [phone] Elma Echevarria NP Unavailable No, Physician Primary Care Provider [phone] Reason for Visit * Reason Comments High Risk Gestation Encounter Details Date Type Department Care Team (Late st Contact Info) Description 01/17/2024 9:15 AM CDT Office Visit [facility] Maternal- Medicine [facility] 7th [address] [place] [address] Supervision of high-risk , first trimester (Primary Dx); Proteinuria complicating in first trimester; headache in second trimester; Obesity affecting in first trimester, unspecified obesity type; History of hemorrhage, currently in first trimester; Family history of spina bifida; Elevated blood pressure reading without diagnosis of hypertension Social History Tobacco Use Types Packs/Day Years [...] often do you attend chur ch or jewish services? Never 07/21/2021 Do you belong to any clubs o r organizations such as oriental orthodox groups, unions, fraternal or athletic groups, [...] a long term (including now)? 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 Gender Identity Not on file Sexual Orientation Not on file documented as of this encounter Last Filed Vital Signs Vital Sign Reading Time Taken Comments Blood Pressure 127/83 01/17/2024 9:25 AM CDT Pulse 101 01/17/2024 9:25 AM CDT Temperature - - Respiratory Rate - - Oxygen Saturation 98% 01/17/2024 9:25 AM CDT Inhaled Oxygen Concentration - - Weight 146.2 kg (322 lb 6.4 oz) 01/17/2024 9:25 AM CDT Height - - Body Mass Index 53.65 01/03/2024 9:37 AM CDT documented in this encounter Progress Notes * Janeth Zacarias, LOG POND WORKER - 01/17/2024 9:15 AM CDT [employer] Return Visit 01/17/2024 Mary Singh is a 23 y.o. at 28w0d who is here for a return OB visit. Her is complicated by proteinuria, obesity, h/o pp hemorrhage and family history of ONTD. Subjective: Doing well today. Denies regular contractions, VB or LOF and reports good movement. Objective: BP 127/83 (BP Location: Right arm, Patient Position: Sitting) Pulse 101 Wt (!) 322 lb 6.4 oz (146.2 kg) LMP 07/05/2023 (Exact Date) SpO2 98% BMI 53.65 kg/m?? General: NAD Abdomen: Soft, gravid, NT, FHR + Ultrasound: n/a Assessment/Plan: Mary Singh is a 23 y.o. at 28w0d with a complicated by the following: Problem List CICI 04/10/24 Supervision of high-risk , first trimester - Primary Overview [x] Full [employer] Care as of 12/13/2023 [x] Blue Team [employer] email sent 12/12 Referring Provider: Janett Robles [phone] [] or Medicare Insurance [x] Dating Criteria: [...] Labs: [] CBC/HIV/RPR/T&S: [] GBS: [] testing: weekly at 34 weeks 2/2 obesity [] RSV Counseling [] MOD: [x] Place of delivery: [facility] [] Last clinic visit SVE: [] IOL start agent: [] Epidural: [] Blood Products [] Consents signed: [] Stop ASA [x] MOC: Pt strongly desires salpingectomy (hopefully at time of delivery but understands she may not be a candidate following a vaginal delivery) 24 yo at time of delivery and understands risks of regret. S/p LARC counseling. Papers signed 01/03/2024 [] Method of feeding: [] Yarn Mercerizer Operator Helper: [] PP Depression Discussed: Proteinuria complicating in first trimester Overview Previously counseled 24 hour urine collected in the setting of a UTI. UPC urine protein <5, ratio too low to calculate. As such, we will defer further testing at this time. Plan: [x] UA/UCx, UPC- ordered, normal [x] Start ASA 81 mg for preeclampsia prevention headache in second trimester Overview Pt with a long history of headaches. Previously on Topamax 50 mg at bedtime. Current regimen: 12/13/2023 Magnesium, will add riboflavin Compazine PRN Plan: PreE precautions reviewed Good hydration and regular meals Caffeine prn Obesity complicating in first trimester Overview Pre- [...] No current diagnosis. Plan for close monitoring. PTL/PEC/FKC precautions reviewed. Reviewed the importance of presenting to her closest hospital in the case of an emergency for evaluation and if necessary and safe will be transferred to [facility]. SOUTH Top[facility] * Sergio Armando CMA - 01/17/2024 9:15 AM CDT Gave pt T-Dap in the right arm LOT: [id number] EXP: 05/19/2025 * Sergio Armando CMA - 01/17/2024 9:15 AM CDT Gave pt Rho (D) Immune Globulin Human Injection in the left Glute LOT: [id number] EXP: 12/18/2024 documented in this encounter Miscellaneous Notes * Addendum Note - Sergio Armando CMA - 01/17/2024 9:15 AM CDTAddended by: SERGIO ARMANDO on: 01/17/2024 09:57 AM Modules accepted: Orders documented in this encounter Plan of Treatment Not on file documented as of this encounter Visit Diagnoses Diagnosis Supervision of high-risk , first trimester- Primary Proteinuria complicating in first trimester headache in second trimester Obesity affecting in first trimester, unspecified obesity type History of hemorrhage, currently in first trimester Family history of spina bifida Family history of congenital anomalies Elevated blood pressure reading without diagnosis of hypertension documented in this encounter Administered Medications Inactive Administered Medications - up to 3 most recent administrations Medication Order MAR Action Action Date Dose Rate Site Rho(D) immune globulin (HyperRHO S/D, RhoGAM) injection 300 mcg 300 mcg, intramuscular, Once, On Mon01/17/24 at 1030, For 1 dose, Refrigerate, Indications: Prevention of Alloimmunization at 28 Weeks GestationIndications:Prevent ion of Alloimmunization at 28 Weeks Gestation Given 01/17/2024 9:51 AM CDT 300 mcg Left Dorsogluteal/Bu ttock documented in this encounter Orders Medications Ordered That Quincy ht Not Have Been Administered Count Last Ordered Date First Ordered Date Rho(D) immune globulin (Hype rRHO S/D, RhoGAM) injection 300 mcg 1 01/17/2024 Immunization/Injection Count Last Ordered Date First Ordered Date TDAP VACCINE GREATER THAN OR EQUAL TO 7YO IM 1 01/17/2024 documented in this encounter Care Teams Condominium Manager Relationship Specialty Start Date End Date No, Physician PCP - General 12/03/23 Jarred Roy MD [address] [address] 01/30/19 Elma Echevarria NP [address] [address] Nurse Practitioner General Surgery 12/16/19 documented as of this encounter
--- OUTSIDE RECORDS SUMMARY | 2024-05-10 20:16 | XMS_ITS | Encounter Summary ---
Author Organization [facility] Address [address] [place] [address] Care Team Providers Care Target Setter Name Role Phone Jarred Roy MD Unavailable [phone] Elma Echevarria NP Unavailable No, Physician Primary Care Provider [phone] Reason for Referral * Diagnostic Imaging (Routine) - Closed Specialty Diagnoses / Procedures Referred By Contac t Referred To Contact Diagnoses Supervision of high-risk , first trimester Procedures US Ob Follow Up Janeth Zacarias NP [address] [facility] [phone] [place] [address] Phone: tel: fax: [facility] (All Locations) Referral ID Status Reason Start Date Expiration Date Visits Re quested Visits Authorized [id number] Closed 12/13/2023 01/11/2025 1 1 Reason for Visit * Diagnostic Imaging (Routine) - Closed Specialty Diagnoses / Procedures Referred By Contac t Referred To Contact Diagnoses Supervision of high-risk , first trimester Procedures US Ob Follow Up Janeth Zacarias NP [address] [facility] [phone] [place] [address] Phone: tel: fax: [facility] (All Locations) Referral ID Status Reason Start Date Expiration Date Visits Re quested Visits Authorized [id number] Closed 12/13/2023 01/11/2025 1 1 Encounter Details Date Type Department Care Team (Latest Contact Info) Description 01/03/2024 8:45 AM CDT - 01/03/2024 11:59 PM CDT Hospital Encounter [facility] - Ultrasound [address] [facility], 7th Floor, [address] [facility] [place] [address] Supervision of high-risk , first trimester Discharge [...] often do you attend chur ch or jain services? Never 07/21/2021 Do you belong to [...] in a intermediate (including now)? 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 us Janeth Zacarias DATA WAREHOUSE ANALYST IMG OB US PROCEDURE S Final Result documented in this encounter Visit Diagnoses Diagnosis Supervision of high-risk , first trimester documented in this encounter Care Teams Target Setter Relationship Specialty Start Date End Date No, Physician PCP - General 12/03/23 Jarred Roy MD [address] [address] 01/30/19 EyeElma charles NP [address] [facility] [address] Nurse Practitioner General Surgery 12/16/19 documented as of this encounter
--- OUTSIDE RECORDS SUMMARY | 2024-05-10 20:16 | XMS_ITS | Encounter Summary ---
Author Organization [facility] Healthcare Address [facility] [place] [address] Care Team Providers Care Breakfast Hostess Name Role Phone Jarred Roy MD Unavailable [phone] Elma Echevarria NP Unavailable Venecia Turner MD Primary Care Provider [phone] Reason for Visit * Reason Comments Follow-up Encounter Details Date Type Department Care Team (Late st Contact Info) Description 09/03/2021 10:15 AM CDT Office Visit Obstetrics and Gynecology Clinic [facility] 3rd Floor [address] [place] [address] Arabella Daniels MD [address] [place] [address] Encounter for routine follow-up Social History [...] week 07/21/2021 How often do you attend [facility] or amish services? Never 07/21/2021 Do you belong to [...] in a longterm (including now)? No 07/21/2021 [place] Depression Scale Answer Date Recorded Paradise Depression Scale Total 6 09/03/2021 The thought of harming myself has occurred to me . 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 Gender Identity Not on file Sexual Orientation Not on file documented as of this encounter Last Filed Vital Signs Vital Sign Reading Time Taken Comments Blood Pressure 122/60 09/03/2021 11:32 AM CDT Pulse 79 09/03/2021 11:32 AM CDT Temperature 36.1 ??C (97 ??F) 09/03/2021 11: 32 AM CDT Respiratory Rate - - Oxygen Saturation 99% 09/03/2021 11: 32 AM CDT Inhaled Oxygen Concentration - - Weight 131.3 kg (289 lb 6.4 oz) 022 11:32 AM CDT Height - - Body Mass Index 48.16 08/25/2021 6:29 PM CDT documented in this encounter Ordered Prescriptions Prescription Sig Dispense Quantity Refills Last Filled Start Date End Date varicella zoster (VARIVAX) 1,350 unit/0.5 mL vaccineIndications :varicella prevention Inject 0.5 mL under the skin once for 1 dose 0.5 mL 09/03/2021 2 docusate sodium (COLACE) 100 mg capsuleIndications :constipation Take 1 capsule (100 mg total) by mouth 2 (two) times a day 30 capsule 3 09/03/2021 2 ferrous sulfate 325 mg (65 mg of elemental iron) tabletIndications: Iron Deficiency Anemia Take 1 tablet (325 mg total) by mouth daily with breakfast 30 tablet 11 09/03/2021 2 documented in this encounter Progress Notes * Paula Wells RN - 09/03/2021 10:15 AM CDT EPDS = 6 * Arabella Daniels MD - 09/03/2021 10:15 AM CDT Outpatient Visit History of Present Illness: 21 y.o. s/p on 07/20 c/b EBL 900 mL (atony, first degree andright vaginal sidewall lacs). She was last seen last week by Dr. Stein for vulvar swelling. Exam was notable for mild erythema, patient was given script for Bactrim x 7 days. She has overall been doing well since her last appt. She notes improved vulvar pain/irritation withantibiotics. She has her first menses which she notes was heavier than her typical menses, going through multiple pads a day on the heaviest day and even soaking into sheets. Currently only spotting.She has not yet started loestrin. Denies any lightheadedness/dizziness. She is formula feeding and denies any breast issues. Past Medical History: Past Medical History: Diagnosis Date ??? Closed nondisplaced fracture of medial cuneiform of right foot 06/03/2019 ??? HX OTHER MEDICAL T&A in 2011; Comments: MIRANDA 05/20/2014 - ??? HX OTHER MEDICAL elbow fracture 02-06-15.; Comments: MIRANDA 02/09/2015 - Past Surgical History: Past Surgical History: Procedure Laterality Date ??? TONSILLECTOMY/ADENOIDECTOMY Bilateral Obstetric History: OB History as of 08/26/2021 1 Para 1 Term 1 AB Living 1 SAB IAB Ectopic Multiple 0 Live Births 1 Home Medications: HOME MEDICATIONS : acetaminophen 500 mg capsule albuterol HFA (PROVENTIL HFA,VENTOLIN HFA,PROAIR HFA) 90 mcg/actuation inhaler docusate sodium (COLACE) 100 mg capsule fluticasone propionate (FLONASE) 50 mcg/actuation nasal spray ibuprofen (ADVIL,MOTRIN) 600 mg tablet lidocaine HCL 3 % cream lidocaine jelly (XYLOCAINE) 2 % norethindrone ac-eth estradioL (Loestrin ,) 1-20 mg-mcg per tablet polyethylene glycol (MIRALAX) 17 gram packet sulfamethoxazole-trimethoprim (BACTRIM DS) 800-160 mg per tablet Allergies as of 09/03/2021 ??? (No Known Allergies) Family History: Family History Problem Relation Age of Onset ??? Hypertension Father Hypertension; ??? Other Mother Alive and well at age 44.; Social History: Social History Tobacco Use ??? Smoking status: Never Smoker ??? Smokeless tobacco: Never Used Substance Use Topics ??? Alcohol use: No Review of Systems: Negative except as per HPI Physical Exam: BP 122/60 (BP Location: Left arm, Patient Position: Sitting) Pulse 79 Temp 36.1 ??C (97 ??F) (Temporal) Wt 289 lb 6.4 oz (131.3 kg) SpO2 99% BMI 48.16 kg/m?? General: NAD, mood appropriate Pulmonary: non-labored Cardiovascular: Regular rate and rhythm Abdomen: soft, non-tender, non-distended, without rebound or guarding Extremities: Warm and well perfused Genital exam: Normal external genital exam, lacerations well healed Assessment Patient is a 21 y.o. presents for 6 wk . Plan # care -Patient meeting milestones, perineum well healed with no evidence of infection today -Patient VZV nonimmune, discussed getting vaccine at [facility] (script sent) -Discussed starting daily iron in setting of Hgb 9 at discharge and recent heavy menses (sent colace to pharmacy as well) -Discussed loestrin will likely help with heavy menstrual bleeding, recommended to start today since currently still on menses Patient seen and discussed with Dr. Arriaga. Patient to follow-up with provider in [place] for well woman care. Arabella Daniels MD 09/03/2021 Cosigned by Arleth Arriaga MD at 09/07/2021 12:10 PM CDT Associated attestation - Arleth Arriaga MD - 09/07/2021 12:10 PM CDT I have seen and examined the patient. I agree with the findings and plan of care as documented in the resident/fellow's note. My total encounter time on 09/03/2021 was 15 minutes which was spent in the activities documented in the note. This includes time spent prior to the visit and after the visitin direct care of the patient. This time does not include time spent in any separately reportable services. documented in this encounter Plan of Treatment Not on file documented as of this encounter Visit Diagnoses Diagnosis Encounter for routine follow-up documented in this encounter Care Teams Breakfast Hostess Relationship Specialty Start Date End Date Venecia Turner MD [address] [facility] [address] [facility] [address] [place] [address] PCP - General 08/16/21 02/08/22 Jarred Roy MD 2 [facility] [facility] [address] [place] [address] 01/30/19 Elma Echevarria NP [address] [facility] [address] [place] [address] Nurse Practitioner General Surgery 12/16/19 documented as of this encounter
--- OUTSIDE RECORDS SUMMARY | 2024-05-10 20:16 | XMS_ITS | Encounter Summary ---
Author Organization [facility] Address [address] [place] [address] Care Team Providers Care Transmission Repairer Name Role Phone Jarred Roy MD Unavailable [phone] Elma Echevarria NP Unavailable GuraboLaura Trotter NP Primary Care Provider [phone] Encounter Details Date Type Department Care Team (Late st Contact Info) Description 02/09/2022 2:00 PM CDT Office Visit [facility] [address] [facility] [address] [place] [address] Mook Adrian MD [address] [place] [address] [address] [place] [address] Chronic migraine without aura without status migrainosus, not intractable (Primary Dx) Social History Tobacco Use Types [...] in a residential (including now)? No 07/21/2021 [place] Depression Scale Answer Date Recorded [place] Depression Scale Total 6 09/03/2021 The thought of harming myself has occurred to me . 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 Gender Identity Not on file Sexual Orientation Not on file documented as of this encounter Last Filed Vital Signs Vital Sign Reading Time Taken Comments Blood Pressure 118/81 02/09/2022 1:47 PM CDT Pulse 73 02/09/2022 1:47 PM CDT Temperature - - Respiratory Rate - - Oxygen Saturation - - Inhaled Oxygen Concentration - - Weight 137.6 kg (303 lb 6.4 oz) 02/09/2022 1:47 PM CDT Height 165.1 cm (5' 5 ) 02/09/2022 1:47 PM CDT Body Mass Index 50.49 02/09/2022 1:47 PM CDT documented in this encounter Ordered Prescriptions Prescription Sig Dispense Quantity Refills Last Filled Start Date End Date SUMAtriptan (IMITREX) 100 mg tabletIndications: Migraine Take one tabet po q2h prn as soon as feel headache is coming. No more than 2 tablets in 24 hours. 9 tablet 3 02/09/2022 4 topiramate (TOPAMAX) 50 mg tabletIndications: Chronic migraine without aura without status migrainosus, not intractable Take half tablet (25 mg) po twice a day for one week, then one tablet po twice a day 60 tablet 3 02/09/2022 3 documented in this encounter Progress Notes * Mook Adrian MD - 02/09/2022 2:00 PM CDT Subjective/Objective Patient ID: Mary Licona is a 21 y.o. female. Chief Complaint I am seeing this 21 y.o. female in consultation requested by Dr. Venecia Turner MD for headache HPI The headache has been going on for [...] helped the most. She stopped breast feeding. Past Medical History: Diagnosis Date Closed nondisplaced fracture of medial cuneiform of right foot 06/03/2019 HX OTHER MEDICAL T&A in 2011; Comments: MIRANDA 05/20/2014 - HX OTHER MEDICAL elbow fracture 02-06-15.; Comments: MIRANDA 02/09/2015 - Migraine No Known Allergies Current Outpatient Medications Medication Sig Dispense Refill acetaminophen 500 mg capsule Take 2 capsules (1,000 mg total) by mouth every 6 (six) hours as needed for pain 60 tablet 0 albuterol HFA (PROVENTIL HFA,VENTOLIN HFA,PROAIR HFA) 90 mcg/actuation inhaler albuterol sulfate HFA 90 mcg/actuation aerosol inhaler docusate sodium (COLACE) 100 mg capsule Take 1 capsule (100 mg total) by mouth 2 (two) times a day 60 capsule 0 docusate sodium (COLACE) 100 mg capsule Take 1 capsule (100 mg total) by mouth 2 (two) times a day 30 capsule 3 ferrous sulfate 325 mg (65 mg of elemental iron) tablet Take 1 tablet (325 mg total) by mouth dailywith breakfast 30 tablet 11 fluticasone propionate (FLONASE) 50 mcg/actuation nasal spray fluticasone propionate 50 mcg/actuation nasal spray,suspension ibuprofen (ADVIL,MOTRIN) 600 mg tablet Take 1 tablet (600 mg total) by mouth every 6 (six) hours asneeded for pain (Patient not taking: Reported on 02/09/2022) 60 tablet 0 lidocaine HCL 3 % cream Apply 1 application topically 4 (four) times a day as needed (Pain) 28.3 g 0 norethindrone ac-eth estradioL (Loestrin 05/27, ,) 1-20 mg-mcg per tablet Take 1 tablet by mouth daily 28 tablet 12 polyethylene glycol (MIRALAX) 17 gram packet Take 1 packet (17 g total) by mouth daily as needed for constipation 20 packet 0 SUMAtriptan (IMITREX) 100 mg tablet Take one tabet po q2h prn as soon as feel headache is coming. No more than 2 tablets in 24 hours. 9 tablet 3 topiramate (TOPAMAX) 50 mg tablet Take half tablet (25 mg) po twice a day for one week, then one tablet po twice a day 60 tablet 3 No current facility-administered medications for this visit. has a current medication list which includes the following prescription(s): acetaminophen, albuterol hfa, docusate sodium, docusate sodium, ferrous sulfate, fluticasone propionate, ibuprofen, lidocaine hcl, norethindrone ac-eth estradiol, polyethylene glycol, sumatriptan, and topiramate. Family History Problem Relation Age of Onset Hypertension Father Hypertension; Other Mother Alive and well at age 44.; Social History Tobacco Use Smoking status: Never Smokeless tobacco: Never Substance and Sexual Activity Drug use: Never Sexual activity: Defer Alcohol Use: Not At Risk Frequency of Alcohol Consumption: Never Average Number of Drinks: Not on file Frequency of Binge Drinking: Never BP 118/81 Pulse 73 Ht 165.1 cm (5' 5 ) Wt (!) 137.6 kg (303 lb 6.4 oz) BMI 50.49 kg/m?? Physical Exam Mental status: alert, speech [...] History is suggestive of chronic migraine headache. Diagnoses and all orders for this visit: Chronic migraine without aura without status migrainosus, not intractable (Primary) - topiramate (TOPAMAX) 50 mg tablet; Take half tablet (25 mg) po twice a day for one week, then onetablet po twice a day - SUMAtriptan (IMITREX) 100 mg tablet; Take one tabet po q2h prn as soon as feel headache is coming. No more than 2 tablets in 24 hours. Review of investigations: 1. 01/02/2014 CT of head without: No acute intracranial process. I reviewed image. Return in about 3 months (around 05/12/2022) for with Tonya. documented in this encounter Plan of Treatment Not on file documented as of this encounter Visit Diagnoses Diagnosis Chronic migraine without aura without status migrainosus, not intractable- Primary documented in this encounter Discontinued Medications Medication Sig Discontinue Reason Start Date End Da te polyethylene glycol (MIRALAX) 17 gram packetIndications:con stipation Take 1 packet (17 g total) by mouth daily as needed for constipation 07/21/2021 02/09/2022 norethindrone ac-eth estradioL (Loestrin 05/27, ,) 1-20 mg-mcg per tablet Take 1 tablet by mouth daily 08/26/2021 02/09/2022 lidocaine HCL 3 % cream Apply 1 application topically 4 (four) times a day as needed (Pain) 08/25/2021 02/09/2022 ibuprofen (ADVIL,MOTRIN) 600 mg tabletIndications:Metal Polisher mps Take 1 tablet (600 mg total) by mouth every 6 (six) hours as needed for pain 07/21/2021 02/09/2022 fluticasone propionate (FLONASE) 50 mcg/actuation nasal spray fluticasone propionate 50 mcg/actuation nasal spray,suspension 02/09/2022 ferrous sulfate 325 mg (65 mg of elemental iron) tabletIndications:Iro n Deficiency Anemia Take 1 tablet (325 mg total) by mouth daily with breakfast 09/03/2021 02/09/2022 docusate sodium (COLACE) 100 mg capsuleIndications:co nstipation Take 1 capsule (100 mg total) by mouth 2 (two) times a day 09/03/2021 02/09/2022 docusate sodium (COLACE) 100 mg capsuleIndications:co nstipation,Stool Softener Take 1 capsule (100 mg total) by mouth 2 (two) times a day 07/21/2021 02/09/2022 albuterol HFA (PROVENTIL HFA,VENTOLIN HFA,PROAIR HFA) 90 mcg/actuation inhaler albuterol sulfate HFA 90 mcg/actuation aerosol inhaler 02/09/2022 acetaminophen 500 mg capsuleIndications:Fe doyle,Pain Take 2 capsules (1,000 mg total) by mouth every 6 (six) hours as needed for pain 07/21/2021 02/09/2022 documented as of this encounter Care Teams Transmission Repairer Relationship Specialty Start Date End Date Laura Madrid NP [address] [place] [address] [address] [place] [address] PCP - General Nurse Practitioner 02/09/22 12/02/23 Jarred Roy MD [address] [facility] [place] [address] 01/30/19 Elma Echevarria NP [address] [facility] [address] [address] Nurse Practitioner General Surgery 12/16/19 documented as of this encounter
--- OUTSIDE RECORDS SUMMARY | 2024-05-10 20:16 | XMS_ITS | Encounter Summary ---
Author Organization [facility] Address [address] [place] [address] Phone Care Team Providers Care Unemployment Insurance Hearing Officer Name Role Phone Jarred Roy MD Unavailable [phone] Elma Echevarria NP Unavailable No, Physician Primary Care Provider [phone] Reason for Referral * Diagnostic Imaging (Routine) - Pending Review Specialty Diagnoses / Procedures Referred By Contac t Referred To Contact Diagnoses Obesity affecting in first trimester, unspecified obesity type Procedures US Ob Follow Up Janeth Zacarias NP [address] [facility] [phone] [place] [address] Phone: tel: fax: [facility] (All Locations) Referral ID Status Reason Start Date Expiration Date V isits Requested Visits Authorized [id number] Pending Review 01/03/2024 02/01/2025 1 1 * Diagnostic Imaging (Routine) - Closed Specialty Diagnoses / Procedures Referred By Contac t Referred To Contact Diagnoses Obesity affecting in first trimester, unspecified obesity type Procedures US Ob Follow Up Janeth Zacarias NP [address] [facility] [phone] [place] [address] Phone: tel: fax: [facility] (All Locations) Referral ID Status Reason Start Date Expiration Date Visits Re quested Visits Authorized [id number] Closed 01/03/2024 02/01/2025 1 1 Reason for Visit * Reason Comments High Risk Gestation Encounter Details Date Type Department Care Team (Late st Contact Info) Description 01/03/2024 9:30 AM CDT Office Visit [facility] [address] [facility] 7[address] [place] [phone] Supervision of high-risk , first trimester (Primary Dx); Proteinuria complicating in first trimester; headache in second trimester; Obesity affecting in first trimester, unspecified obesity type; History of hemorrhage, currently in first trimester; Elevated blood pressure reading without diagnosis of hypertension; Rh negative state in antepartum period Social History Tobacco Use Types Packs/Day Years [...] 07/21/2021 How often do you attend [facility] or hinduism services? Never 07/21/2021 Do you belong to any clubs o r organizations such as religion groups, unions, fraternal or athletic groups, or [...] place to sleep or slept in a fdc (including now)? 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 Gender Identity Not on file Sexual Orientation Not on file documented as of this encounter Last Filed Vital Signs Vital Sign Reading Time Taken Comments Blood Pressure 104/72 01/03/2024 9:37 AM CDT Pulse 74 01/03/2024 9:37 AM CDT Temperature - - Respiratory Rate - - Oxygen Saturation 95% 01/03/2024 9:37 AM CDT Inhaled Oxygen Concentration - - Weight 145.2 kg (320 lb) 01/03/2024 9:37 AM CDT Height 165.1 cm (5' 5 ) 01/03/2024 9:37 AM CDT Body Mass Index 53.25 01/03/2024 9:37 AM CDT documented in this encounter Progress Notes * Janeth Zacarias, CLINICAL ATHLETIC INSTRUCTOR - 01/03/2024 9:30 AM CDT MFM Return Visit 01/03/2024 Mary Singh is a 23 y.o. at 26w0d who is here for a return OB visit. Her is complicated by proteinuria, obesity, h/o pp hemorrhage and family history of ONTD. Subjective: Doing well today. Denies regular contractions, VB or LOF and reports good movement. Strongly desires salpingectomy. She does not want to be on BC and states she cannot afford the child she already has. Objective: BP 104/72 (BP Location: Right arm, Patient Position: Sitting) Pulse 74 Ht 165.1 cm (5' 5 ) Wt(!) 320 lb (145.2 kg) LMP 07/05/2023 (Exact Date) SpO2 95% BMI 53.25 kg/m?? General: NAD Abdomen: Soft, gravid, NT, FHR + Ultrasound: AGA- see finalized US report Assessment/Plan: Mary Singh is a 23 y.o. at 26w0d with a complicated by the following: Problem List CICI 04/10/24 Supervision of high-risk , first trimester - Primary Overview [x] Full MF Care as of 12/13/2023 [x] [employer] email sent 12/12 Referring Provider: Janett Robles [phone] [] or Medicare Insurance [x] Dating Criteria: [...] and wnl [] CBC/1hr gtt at 24-28wks: performed today [] Tdap (27-36wks): next visit [] Rhogam at 28 wks (if Rh neg): ordered for next visit 3rd Tri Labs: [] CBC/HIV/RPR/T&S: [] GBS: [...] signed 01/03/2024 [] Method of feeding: [] Manager Food: [] PP Depression Discussed: Proteinuria complicating in [...] weeks (BMI >/=40) Relevant Orders US Ob Follow Up US Ob Follow Up History of hemorrhage, currently in first trimester [...] crossing for blood at time of delivery. Elevated blood pressure reading without diagnosis of [...] No current diagnosis. Plan for close monitoring. Rh negative state in antepartum period Relevant Orders Type and screen PTL/PEC/FKC precautions reviewed. Reviewed the importance of presenting to her closest hospital in the case of an emergency for evaluation and if necessary and safe will be transferred to [facility]. [facility] [place] documented in this encounter Plan of Treatment Pending Results Name Type Priority Associated Diagnoses Date /Time Type and screen Lab Routine Rh negative state in antepartum period 01/17/2024 9:18 AM CDT Scheduled Orders Name Type Priority Associated Diagnoses Orde r Schedule US Ob Follow Up Imaging Schedule Routine , Read Routine (OP Routine) Obesity affecting in first trimester, unspecified obesity type Expected: 01/03/2024, Expires: 01/02/2025 Type and screen Lab Routine Rh negative state in antepartum period Expected: 01/17/2024, Expires: 01/02/2025 documented as of this encounter Results * US Ob Follow [...] fluid volume is normal. us Janeth Zacarias CLINICAL ATHLETIC INSTRUCTOR IMG OB US PROCEDURE S Final Result documented in this encounter Visit Diagnoses Diagnosis Supervision of high-risk , first trimester- Primary Proteinuria complicating in first trimester headache in second trimester Obesity affecting in first trimester, unspecified obesity type History of hemorrhage, currently in first trimester Elevated blood pressure reading without diagnosis of hypertension Rh negative state in antepartum period Obesity affecting in first trimester, unspecified obesity type Other obesity affecting in third trimester- Primary documented in this encounter Care Teams Unemployment Insurance Hearing Officer Relationship Specialty Start Date End Date No, Physician PCP - General 12/03/23 Jarred Roy MD [address] [address] 01/30/19 Elma Echevarria NP 2 [facility] [address] [address] Nurse Practitioner General Surgery 12/16/19 documented as of this encounter
--- OUTSIDE RECORDS SUMMARY | 2024-05-10 20:16 | XMS_ITS | Encounter Summary ---
Author Organization [facility] Address [address] [place] [address] Care Team Providers Care Rubber Cutter And Shape Carver Name Role Phone Jarred Roy MD Unavailable [phone] EyeElma charles NP Unavailable GadsdenLaura Thornton NP Primary Care Provider [phone] Reason for Visit * Diagnostic Imaging (Routine) - Pending Review Specialty Diagnoses / Procedures Referred By Contac t Referred To Contact Diagnoses Proteinuria complicating in first trimester Procedures US Retroperitoneal Complete US Kidney Complete Татьяна Ortiz MD [address] [address] Phone: tel: fax: [facility] (All Locations) Referral ID Status Reason Start Date Expiration Date V isits Requested Visits Authorized [id number] Pending Review 10/17/2023 11/15/2024 1 1 Encounter Details Date Type Department Care Team (Latest Contact Info) Description 11/03/2023 9:52 AM CDT - 11/03/2023 11:59 PM CDT Hospital Encounter [facility] [id number] [place] [address] Proteinuria complicating in first trimester Discharge Disposition: [...] attend chur ch or confucianist services? Never 07/21/2021 Do you belong to any clubs o r organizations such as worship groups, unions, fraternal or athletic groups, or [...] a long term (including now)? No 07/21/2021 [place] Depression Scale Answer Date Recorded [place] Depression Scale Total 6 09/03/2021 The thought of harming myself has occurred to me . 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 Electronically signed by: Clinton Katz M.D. Narrative 11/03/2023 11:53 AM CDT EXAM: ?? US RETROPERITONEAL COMPLETE DATE: ?? 11/03/2023 10:15 AM CLINICAL HISTORY: ?? Proteinuria complicating . COMPARISON: ?? None FINDINGS: ?? Ultrasound the kidneys was performed in longitudinal and transverse planes. ??Color Doppler imaging was utilized. The kidneys are normal in size and echogenicity. ??Both kidneys measure 12.1 cm in bipolar length. ??There is no evidence of hydronephrosis or perinephric fluid. The urinary bladder is visualized and appears normal. ??The bladder volume is calculated to be 95 mL. Procedure Note Clinton Katz MD - 11/03/2023 EXAM: US RETROPERITONEAL COMPLETE DATE: 11/03/2023 10:15 AM CLINICAL HISTORY: Proteinuria complicating . COMPARISON: None FINDINGS: Ultrasound the kidneys was performed in longitudinal and transverse planes. Color Doppler imaging was utilized. The kidneys are normal in size and echogenicity. Both kidneys measure 12.1 cm in bipolar length. There is no evidence of hydronephrosis or perinephric fluid. The urinary bladder is visualized and appears normal. The bladder volume is calculated to be 95 mL. IMPRESSION: Unremarkable renal ultrasound. Electronically signed by: Clinton Katz M.D. Татьяна Ortiz MD IMG US PROCEDURES Fi nal Result documented in this encounter Visit Diagnoses Diagnosis Proteinuria complicating in first trimester documented in this encounter Care Teams Rubber Cutter And Shape Carver Relationship Specialty Start Date End Date Laura Madrid NP 4 [facility] [address] [place] [address] PCP - General Nurse Practitioner 02/09/22 12/02/23 Jarred Roy MD [address] [facility] [address] [address] 01/30/19 Elma Echevarria NP [address] [facility] [address] [address] Nurse Practitioner General Surgery 12/16/19 documented as of this encounter
--- OUTSIDE RECORDS SUMMARY | 2024-05-10 20:16 | XMS_ITS | Encounter Summary ---
Author Organization [facility] Address [address] [place] [address] Phone Care Team Providers Care Piggery Worker Name Role Phone Jarred Roy MD Unavailable [phone] Elma Echevarria NP Unavailable Laura Madrid NP Primary Care Provider [phone] Encounter Details Date Type Department Care Team (Late st Contact Info) Description 09/25/2023 Telephone [facility] Obstetrics and [facility]necology [facility] [place] [address] Melonie Robbins Social History Tobacco Use Types Packs/Day Years [...] often do you attend chur ch or anabaptism services? Never 07/21/2021 Do you belong to any clubs o r organizations such as baptism groups, unions, fraternal or athletic groups, or [...] in a longterm (including now)? No 07/21/2021 [place] Depression Scale Answer Date Recorded [place] Depression Scale Total 6 09/03/2021 The thought of harming myself has occurred to me . Never 09/03/2021 Personal Safety Answer Date Recorded Getting School Help Needed Not on file 05/20 Comments No Sex and Gender Information Value Date Recorded Sex Assigned at Not on file Legal Sex Female 11:28 PM VP DIGITAL MARKETING Gender Identity Not on file Sexual Orientation Not on file documented as of this encounter Miscellaneous Notes * Telephone Encounter - Melonie Robbins - 09/25/2023 3:30 PM CDT 09/24 Patient is now scheduled, appointment details are below. 10/12 US 9:15 am at [facility] 7 10/12 OBC 10:15am at [facility] 7 BT Chart reviewed for referral. Please schedule for OBC with ultrasound, depends on gestational age attime of scheduling as to what type of scan, within 2-3 weeks. Should be at [facility] or [facility] due to BMI CICI 04/10 DX: proteinuria, BMI 50, family hx of spina bifida Shanelle documented in this encounter Plan of Treatment Not on file documented as of this encounter Visit Diagnoses Not on filedocumented in this encounter Care Teams Piggery Worker Relationship Specialty Start Date End Date Laura Madrid NP [address] [place] [address] [address] [place] [address] PCP - General Nurse Practitioner 02/09/22 12/02/23 Jarred Roy MD [address] [facility] [address] [address] 01/30/19 Elma Echevarria NP [address] [facility] [address] [address] Nurse Practitioner General Surgery 12/16/19 documented as of this encounter
--- OUTSIDE RECORDS SUMMARY | 2024-05-10 20:16 | XMS_ITS | Encounter Summary ---
Author Organization [facility] Healthcare Address [address] [place] [address] Care Team Providers Care Square Dance Caller Name Role Phone Jarred Roy MD Unavailable [phone] EyersElma NP Unavailable [place]iscotLaura Thornton NP Primary Care Provider [phone] Encounter Details Date Type Department Care Team (Late st Contact Info) Description 10/17/2023 Orders Only [facility] [address] [place] [address] Татьяна Ortiz MD [address] [address] Proteinuria complicating in first trimester (Primary Dx) Social History Tobacco Use Types [...] week 07/21/2021 How often do you attend [facility] or anabaptist services? Never 07/21/2021 Do [...] a care home (including now)? No 07/21/2021 [place] Depression Scale Answer Date Recorded [place] Depression Scale Total 6 09/03/2021 The thought of harming myself has occurred to me . Never 09/03/2021 Personal Safety Answer Date Recorded Getting School Help Needed Not on file 05/20 Comments Yes Sex and Gender Information Value Date Recorded Sex Assigned at Not on file Legal Sex Female 11:28 PM CERTIFIED NURSE PRACTITIONER Gender Identity Not on file Sexual Orientation Not on file documented as of this encounter Plan of Treatment Not on file documented as of this encounter Visit Diagnoses Diagnosis Proteinuria complicating in first trimester- Primary documented in this encounter Care Teams Square Dance Caller Relationship Specialty Start Date End Date Laura Madrid NP [address] [facility] [address] [place] [address] PCP - General Nurse Practitioner 02/09/22 12/02/23 Jarred Roy MD [address] [facility] [address] [address] 01/30/19 Elma Echevarria NP [address] [facility] [address] [address] Nurse Practitioner General Surgery 12/16/19 documented as of this encounter
--- OUTSIDE RECORDS SUMMARY | 2024-05-10 20:16 | XMS_ITS | Encounter Summary ---
Author Organization [facility] Healthcare Address [address] [place] [address] Care Team Providers Care Doctor Of Chiropractic Name Role Phone Jarred Roy MD Unavailable [phone] Elma Echevarria NP Unavailable Venecia Turner MD Primary Care Provider [phone] Encounter Details Date Type Department Care Team (Late st Contact Info) Description 08/25/2021 Telephone Obstetrics and Gynecology Clinic [address] [facility] Health 3rd Floor [address] [place] [address] Lilian Evans Social History Tobacco [...] in a half-way (including now)? No 07/21/2021 [place] Depression Scale Answer Date Recorded [place] Depression Scale Total 7 08/26/2021 The thought of harming myself has occurred to me . 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 Pt states she delivered 1 month ago and after delivery she didn't haveany pain or bleeding. Pt states that last week she started having constant vaginal pain with walking/ getting up/ urination and is now radiating down her leg. Still no discharge or bleeding. Pt booked for appointment tomorrow for evaluation * Telephone Encounter - Lilian Evans - 08/25/2021 1:49 PM CDT Patient called and ask if she could get a call back regarding her having some vaginal burning and is now going into her thigh area please and thanks. documented in this encounter Plan of Treatment Not on file documented as of this encounter Visit Diagnoses Not on filedocumented in this encounter Care Teams Doctor Of Chiropractic Relationship Specialty Start Date End Date Venecia Turner MD [address] [place] [address] DR LEXIE Gramajo [facility] [address] [place] [address] PCP - General 08/16/21 02/08/22 Jarred Roy MD 2 [facility] [address] [place] [address] 01/30/19 Elma Echevarria NP 2 [facility] [address] [place] [address] Nurse Practitioner General Surgery 12/16/19 documented as of this encounter
--- OUTSIDE RECORDS SUMMARY | 2024-05-10 20:16 | XMS_ITS | Encounter Summary ---
Author Organization [facility] Healthcare Address [address] [place] [address] Care Team Providers Care Cotton Farmworker Name Role Phone Jarred Roy MD Unavailable [phone] EyersElma NP Unavailable No, Physician Primary Care Provider [phone] Encounter Details Date Type Department Care Team (Late st Contact Info) Description 01/03/2024 9:45 AM CDT Lab [facility] Outpatient Health [address] [facility] [place] [address] Supervision of high-risk , first [...] often do you attend chur ch or taoist services? Never 07/21/2021 Do you belong to [...] in a custodial (including now)? 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 Gender Identity Not on file Sexual Orientation Not on file documented as of this encounter Plan of Treatment Not on file documented as of this encounter Procedures Procedure Name Priority Date/Time Associated Diagnosis Comments GTT 50GM 1HR GESTATIONAL SCREEN Routine 01/03/2024 10:30 AM CDT Supervision of high-risk , first trimester CBC WITHOUT DIFFERENTIAL Routine 01/03/2024 10:30 AM CDT Supervision of high-risk , first trimester documented in this encounter Results * GTT 50gm 1hr gestational screen (01/03/2024 [...] 01/03/2024 11:35 AM CDT us Janeth Zacarias MAILS SUPERVISOR LAB BLOOD ORDERABLE S Final Result [facility] Department [place] [address] * (ABNORMAL) CBC without differential (01/03/2024 10:30 AM CDT) WBC 8.0 3.8 - 9.9 K/cumm Hgb 11.8(L) 11.9 - 15.5 g/dL [facility] Hct 35.4(L) 35.6 - 45.5 % [facility] Plt 241 150 - 400 K/cumm [facility] MPV 10.0 9.1 - 12.3 fL [facility] RBC 3.81(L) 3.90 - 5.20 M/cumm [facility] MCV 92.9 81.3 - 96.4 fL [facility] MCH 31.0 27.1 - 33.3 pg [facility] MCHC 33.3 32.3 - 35.7 g/dL [facility] RDW CV 13.4 11.1 - 14.9 % [facility] RDW SD 45.6 35.7 - 48.1 fL [facility] NRBC abs 0.00 0.00 - 0.01 K/cumm [facility] Blood 01/03/2024 10:3 0 AM CDT 01/03/2024 11:35 AM CDT us Janeth Zacarias MAILS SUPERVISOR LAB BLOOD ORDERABLE S Final Result [facility] [address] [facility] Department [place] [address] documented in this encounter Visit Diagnoses Diagnosis Supervision of high-risk , first trimester documented in this encounter Care Teams Cotton Farmworker Relationship Specialty Start Date End Date No, Physician PCP - General 12/03/23 Jarred Roy MD 2 [facility] [address] [address] 01/30/19 Elma Echevarria NP 2 [facility] [address] [address] Nurse Practitioner General Surgery 12/16/19 documented as of this encounter
--- OUTSIDE RECORDS SUMMARY | 2024-05-10 20:16 | XMS_ITS | Encounter Summary ---
Author Organization [facility] Address [address] [place] [address] Phone Care Team Providers Care C Software Developer Name Role Phone Jarred Roy MD Unavailable [phone] Elma Echevarria NP Unavailable No, Physician Primary Care Provider [phone] Reason for Visit * Reason Onset Date Comments Urine cx, requested to speak with a provider 01/2024 Encounter Details Date Type Department Care Team (Late st Contact Info) Description 12/15/2023 Telephone [facility] Maternal- Medicine [address] [facility] Health 7th Floor [address] [place] [address] Breanna Quijano RN Urine cx, requested to speak with a provider Social History Tobacco Use Types Packs/Day Years [...] week 07/21/2021 How often do you attend [facility] or yazdanism services? Never 07/21/2021 Do you belong to any clubs o r organizations such as christianity groups, unions, fraternal or athletic groups, or [...] in a fdc (including now)? 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 Call note route to [place] to contact the patient. documented in this encounter Plan of Treatment Not on file documented as of this encounter Visit Diagnoses Not on filedocumented in this encounter Care Teams C Software Developer Relationship Specialty Start Date End Date No, Physician PCP - General 12/03/23 Jarred Roy MD [address] [address] 01/30/19 Elma Ehcevarria NP [address] [address] Nurse Practitioner General Surgery 12/16/19 documented as of this encounter
--- OUTSIDE RECORDS SUMMARY | 2024-05-10 20:16 | XMS_ITS | Encounter Summary ---
Author Organization [facility] Healthcare Address [address] [place] [address] Care Team Providers Care Waiter/Waitress Head Name Role Phone Jarred Roy MD Unavailable [phone] EyersElma NP Unavailable No, Physician Primary Care Provider [phone] Encounter Details Date Type Department Care Team (Late st Contact Info) Description 02/05/2024 11:59 PM CDT Anesthesia Event [facility] Anesthesia [address] [place], [place] [id number] Andra Cisse MD [address] [place] [address] Anesthesia Record Procedure Summary Procedure Name Responsible Anesthesiologist Anesthesia Start Time Anesthesia Stop Time Labor Consult Events No events on file. Meds * Agents No agents on file. * Blood No blood administrations on file. Lines, Drains, and Airways No LDAs on file. documented in this encounter Social History Tobacco [...] a senior care (including now)? 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 Anesthesia Evaluation Mary Singh is a 23 y.o. female Labor Consult * No surgery found * HISTORY HPI Mary Singh is a 23 y/o who presents for labor consult given history of MO (BMI 54). Her is otherwise c/b proteinuria, hx PPH and chronic headaches (compazine and caffeine PRN). She also notes palpitations that have occurred 1-2 times daily over the past week. She has never had these symptoms before. They are associated with feeling hot, but she denies associated chest pain,SOB or dizziness/light-headedness. She checked her HR during one of the episodes and it was about 140. They resolve spontaneously. Current plan is to monitor her symptoms. If they progress or worsen,plan is for Holter monitor. She had an epidural during her first that provided excellent analgesia (1 attempt, 12/18 w/ +DPE) Past Medical History Information obtained from: patient and chart. Information obtained during: In Person Neurological Pertinent negatives: CVA/stroke Cardiovascular Pertinent negatives: hypertension Respiratory Pertinent negatives: asthma Hepatic / Heme Pertinent negatives: liver disease Gastrointestinal + GERD Renal / Pertinent negatives: renal disease Musculoskeletal/Pain Pertinent negatives: chronic pain Endocrine / Other + Obesity (BMI >30) (BMI 52) Day of Surgery assessments + Possibility of assessed - known to be . Review of Systems + palpitations + heartburn Pertinent negatives: productive cough; wheezing; SOB; recent cold/flu; fever; chest pain; orthopnea; syncope; muscle weakness; chronic pain; numbness/tingling and chipped/loose teeth PAT Summary and Plans Anesthesia plan discussed: spinal / epidural anesthesia. Additional comments: I discussed an epidural for labor analgesia with Mary. She had a successful epidural during her last and I feel she would be a good candidate for one again during this . We discussed that the epidural can be placed at any point during labor, but that sometimes the time needed for placement is longer the further along patients are in labor due to difficulty with positioning. I reviewed the risks of an epidural, including bleeding, infection, nerve damage, PDPH and hypotension. I also discussed that in the event of a C/S we can use the epidural to give additional medication for a surgical block. I also discussed that in the case of an emergency or if the epidural is notworking, we can proceed with a general anesthetic. Based on my exam of her back, I do not anticipate any significant challenges during epidural placement. I also mentioned that we can use an US during epidural placement to help with visualizing her spinal anatomy. Patient endorsed understanding and all questions were answered. . Patient Active Problem List Diagnosis Date Noted Elevated blood pressure reading without diagnosis of hypertension 12/13/2023 headache in second trimester 12/13/2023 Rh negative state in antepartum period 10/04/2023 [...] Iron deficiency 11/19/2018 Migraine 11/19/2018 Astigmatism 09/18/2018 [id number] spots 09/18/2018 Vitamin D deficiency 09/18/2018 Chronic [...] Procedure Laterality Date CYST REMOVAL TONSILLECTOMY/ADENOIDECTOMY Bilateral OB History 2 Para 1 Term 1 0 AB 0 Living 1 SAB 0 IAB 0 Ectopic 0 Multiple 0 Live Births 1 No Known Allergies Taking? Last Dose Start Date End Date Provider aspirin 81 mg enteric coated tablet -- 10/13/23 10/12/24 Geeta Valentine MD Take 1 tablet (81 mg total) by mouth daily magnesium oxide (MAG-OX) 500 mg (301.6 mg elemental) tablet -- 10/13/23 -- Geeta Valentine MD Take 1 tablet (500 mg total) by mouth daily vitamin ferrous fumarate-folic () 28 mg iron- 800 mcg tablet -- 07/25/23 -- Provider, MD Kodi prochlorperazine (COMPAZINE) 10 mg tablet -- 12/13/23 -- Janeth Zacarias, [facility] Take 1 tablet (10 mg total) by mouth every 6 (six) hours as needed (headache) riboflavin, vitamin B2, 400 mg tablet -- 01/31/24 -- Serina Carmona MD Take 400 mg by mouth daily Current Outpatient Medications: aspirin 81 mg enteric coated tablet magnesium oxide (MAG-OX) 500 mg (301.6 mg elemental) tablet vitamin ferrous fumarate-folic () 28 mg iron- 800 mcg tablet prochlorperazine (COMPAZINE) 10 mg tablet riboflavin, vitamin B2, 400 mg tablet Social History Tobacco Use Smoking Status Never Smokeless Tobacco Never Alcohol Use: Not At Risk (10/13/2023) AUDIT-C Frequency of Alcohol Consumption: Never Average Number of Drinks: Patient does not drink Frequency of Binge Drinking: Never Substance and Sexual Activity Drug Use Never Family History Problem Relation Age of Onset Hypertension Father Hypertension; Other Mother Alive and well at age 44.; PAT Physical Exam Airway Exam: Mallampati: III Cervical ROM: FROM TM distance: 3.5 Cardiovascular Exam: Rate: regular Rhythm: regular Pulmonary Exam: (Normal WOB on RA) EENT Exam: trachea midline Dental Exam: Appears intact Skin Exam: Skin is warm. Abdominal exam: (Gravid uterus) Current state: Patient's current state is cooperative. Additional comments: On exam of back, spinous processes were palpated; no significant scoliosis noted There were no vitals filed for this visit. PT: No results found for requested labs within last 30 days. INR: No results found for requested labs within last 30 days. APTT: No results found for requested labs within last 30 days. Hgb A1C: No results found for requested labs within last 30 days. CBC RBC: No results found for requested labs within last 30 days. RDW: No results found for requested labs within last 30 days. MCHC: No results found for requested labs within last 30 days. MCH: No results found for requested labs within last 30 days. MCV: No results found for requested labs within last 30 days. Hct: No results found for requested labs within last 30 days. Hgb: No results found for requested labs within last 30 days. WBC: No results found for requested labs within last 30 days. MPV: No results found for requested labs within last 30 days. Platelets: No results found for requested labs within last 30 days. RDW CV: No results found for requested labs within last 30 days. RDW Sd: No results found for requested labs within last 30 days. BMP Glucose: No results found for requested labs within last 30 days. Calcium: No results found for requested labs within last 30 days. Sodium: No results found for requested labs within last 30 days. Potassium: No results found for requested labs within last 30 days. CO2: No results found for requested labs within last 30 days. Chloride: No results found for requested labs within last 30 days. BUN: No results found for requested labs within last 30 days. Creatinine: No results found for requested labs within last 30 days. Cosigned by Ramon Gibbs MD PhD at 02/21/2024 4:04 PM CDT documented in this encounter Plan of Treatment Not on file documented as of this encounter Visit Diagnoses Not on filedocumented in this encounter Care Teams Waiter/Waitress Head Relationship Specialty Start Date End Date No, Physician PCP - General 12/03/23 Jarred Roy MD 2 [facility] [address] 01/30/19 EyeElma charles NP [address] [address] Nurse Practitioner General Surgery 12/16/19 documented as of this encounter
--- OUTSIDE RECORDS SUMMARY | 2024-05-10 20:16 | XMS_ITS | Encounter Summary ---
Author Organization [facility] Healthcare Address [address] [place] [address] Care Team Providers Care Film Painter Name Role Phone Jarred Roy MD Unavailable [phone] Elma Echevarria NP Unavailable No, Physician Primary Care Provider [phone] Reason for Visit * Reason Onset Date Comments Medical Question/Miscellaneous 07/22/2021 Encounter Details Date Type Department Care Team (Late st Contact Info) Description 07/22/2021 Telephone [facility] [address] [place] [address] Carolyn Barrett RN Medical Question/Miscellaneous Social History Tobacco Use Types Packs/Day Years [...] often do you attend chur ch or jainism services? Never 07/21/2021 Do you belong to any clubs o r organizations such as gnosticist groups, unions, fraternal or athletic groups, or [...] place to sleep or slept in a assisted (including now)? 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 Reviewed normal expectations of bleeding. No further questions. documented in this encounter Plan of Treatment Not on file documented as of this encounter Visit Diagnoses Not on filedocumented in this encounter Care Teams Film Painter Relationship Specialty Start Date End Date No, Physician PCP - General 07/22/21 08/15/21 Jarred Roy MD 2 [facility] [address] 01/30/19 Elma Echevarria NP 2 [facility] [address] [address] Nurse Practitioner General Surgery 12/16/19 documented as of this encounter
--- OUTSIDE RECORDS SUMMARY | 2024-05-10 20:16 | XMS_ITS | Encounter Summary ---
Author Organization [facility] Healthcare Address [address] [place] [address] Care Team Providers Care Costumed Character Entertainer Name Role Phone Jarred Roy MD Unavailable [phone] Elma Echevarrai NP Unavailable RutherfordLaura Thornton NP Primary Care Provider [phone] Reason for Referral * Diagnostic Imaging (Routine) - Closed Specialty Diagnoses / Procedures Referred By Contac t Referred To Contact Diagnoses Body mass index 40.0-44.9, adult ([facility]) Supervision of high-risk , first trimester Proteinuria complicating in first trimester Procedures US Ob Detail Anatomy Single Or First Gestation Janett Robles NP [address] [place] [address] [address] [address] Phone: tel: fax: [facility] (All Locations) Referral ID Status Reason Start Date Expiration Date Visits Re quested Visits Authorized [id number] Closed 10/13/2023 11/11/2024 1 1 Reason for Visit * Diagnostic Imaging (Routine) - Closed Specialty Diagnoses / Procedures Referred By Contac t Referred To Contact Diagnoses Body mass index 40.0-44.9, adult ([facility]) Supervision of high-risk , first trimester Proteinuria complicating in first trimester Procedures US Ob Detail Anatomy Single Or First Gestation Janett Robles V., [facility] [address] [facility] [address] [place] [address] Phone: tel: fax: [facility] (All Locations) Referral ID Status Reason Start Date Expiration Date Visits Re quested Visits Authorized [id number] Closed 10/13/2023 11/11/2024 1 1 Encounter Details Date Type Department Care Team (Latest Contact Info) Description 11/24/2023 8:45 AM CDT - 11/24/2023 11:59 PM CDT Hospital Encounter [facility] [address] [facility] [address] [place] [address] Body mass index 40.0-44.9, adult ([facility]); Supervision of high-risk , first trimester; Proteinuria [...] week 07/21/2021 How often do you attend [facility] or anabaptism services? Never 07/21/2021 Do you belong to any clubs o r organizations such as samaritan groups, unions, fraternal or athletic groups, or [...] in a fci (including now)? No 07/21/2021 [place] Depression Scale Answer Date Recorded [place] Depression Scale Total 6 09/03/2021 The thought of harming myself has occurred to me . 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 Gender Identity Not on file Sexual Orientation [...] Priority Date/Time Associated Diagnosis Comments US OB DETAIL ANATOMY SINGLE OR FIRST GESTATION Schedule Routine, Read Routine (OP Routine) 11/24/2023 8:53 AM CDT Body mass index 40.0-44.9, adult ([facility]) Supervision of high-risk , first trimester Proteinuria complicating in first trimester documented in this encounter Results * US Ob Detail [...] documented in this encounter Visit Diagnoses Diagnosis Body mass index 40.0-44.9, adult ([facility]) Body Mass Index 40.0-44.9, adult Supervision of high-risk , first trimester Proteinuria complicating in first trimester documented in this encounter Care Teams Costumed Character Entertainer Relationship Specialty Start Date End Date Laura Madrid NP [address] [facility] [address] [place] [address] PCP - General Nurse Practitioner 02/09/22 12/02/23 Jarred Roy MD 2 [facility] [address] [address] 01/30/19 Elma Echevarria NP 2 [facility] [address] [address] Nurse Practitioner General Surgery 12/16/19 documented as of this encounter
--- OUTSIDE RECORDS SUMMARY | 2024-05-10 20:16 | XMS_ITS | Encounter Summary ---
Author Organization [facility] Address [address] [place] [address] Phone Care Team Providers Care Correctional Case Records Supervisor Name Role Phone Jarred Roy MD Unavailable [phone] Elma Echevarria NP Unavailable No, Physician Primary Care Provider Encounter Details Date Type Department Care Team (Late st Contact Info) Description 01/31/2024 Orders Only [facility] Maternal- Medicine [address] [facility] Health 7th Floor [address] [place] [address] Deanne Aguiar, RN Social History Tobacco Use Types Packs/Day [...] often do you attend chur ch or scientology services? Never 07/21/2021 Do you belong to any clubs o r organizations such as moravian groups, unions, fraternal or athletic groups, or [...] in a assisted (including now)? No 07/21/2021 [place] Depression Scale Answer Date Recorded [place] Depression Scale Total 6 09/03/2021 The thought [...] on file Legal Sex Female 11:28 PM COLLATOR Gender Identity Not on file Sexual Orientation Not on file documented as of this encounter Ordered Prescriptions Prescription Sig Dispense Quantity Refills Last Filled Start Date End Date riboflavin, vitamin B2, 400 mg tabletIndications:M igraine Prevention Take 400 mg by mouth daily 30 tablet 3 01/31/2024 04/18/2024 documented in this encounter Plan of Treatment Not on file documented as of this encounter Visit Diagnoses Not on filedocumented in this encounter Discontinued Medications Medication Sig Discontinue Reason Start Date End Da te riboflavin, vitamin B2, 400 mg tabletIndications:Migrain e Prevention Take 400 mg by mouth daily Reorder 12/13/2023 01/31/2024 documented as of this encounter Care Teams Correctional Case Records Supervisor Relationship Specialty Start Date End Date No, Physician PCP - General 12/03/23 Jarred Roy MD [address] [address] 01/30/19 Elma Echevarria NP [address] [address] Nurse Practitioner General Surgery 12/16/19 documented as of this encounter
--- OUTSIDE RECORDS SUMMARY | 2024-05-10 20:16 | XMS_ITS | Encounter Summary ---
Author Organization [facility] Address [address] [place] [address] Phone Care Team Providers Care Reflow Operator Name Role Phone Jarred Roy MD Unavailable Elma Echevarria NP Unavailable No, Physician Primary Care Provider [phone] Reason for Referral * Consultation (Routine) - Pending Review Specialty Diagnoses / Procedures Referred By Loyd medrano Referred To Contact Anesthesiology Diagnoses Supervision of high-risk , first trimester Obesity affecting in first trimester, unspecified obesity type Janeth Zacarias, MULTILITH OPERATOR [address] [facility] [phone] [place] [address] Phone: tel: fax: [address] [address] Phone: tel: fax: Referral ID Status Reason Start Date Expiration Date Visits Requested Visits Authorized [id number] Pending Review Specialty Services Required 02/01/2024 03/02/2025 1 1 Question Answer Type of Anesthesia Referral OB ANESTHESIA REFERRAL - PLEASE CHOOSE THE CORRECT REGION Please select the performing region: [facility] [[id number]] Please select the performing department: [facility] [[id number]] Purpose of Consult BMI > 40 Type of Delivery Labor Epidural # of visits: 1 Comments Pt would like PHONE consult on 02/04 at 10 am Encounter Details Date Type Department Care Team (Late st Contact Info) Description 02/01/2024 Orders Only [facility] Maternal- Medicine [address] [facility] Health 7th Floor [address] [place] [address] Deanne Aguiar, TRAY Supervision of high-risk , first trimester (Primary Dx); Obesity affecting in first trimester, unspecified obesity type Social History Tobacco Use Types Packs/Day Years [...] often do you attend chur ch or faith services? Never 07/21/2021 Do you belong to any clubs o r organizations such as hindu groups, unions, fraternal or athletic groups, or [...] in a residential (including now)? 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 Gender Identity Not on file Sexual Orientation Not on file documented as of this encounter Plan of Treatment Scheduled Referrals Name Type Priority Associated Diagnoses Order Schedule Ambulatory referral to Anesthesiology Outpatient Referral Routine Supervision of high-risk , first trimester Obesity affecting in first trimester, unspecified obesity type Expected: 02/15/2024 (Approximate), Expires: 01/31/2025 documented as of this encounter Visit Diagnoses Diagnosis Supervision of high-risk , first trimester- Primary Obesity affecting in first trimester, unspecified obesity type documented in this encounter Care Teams Reflow Operator Relationship Specialty Start Date End Date No, Physician PCP - General 12/03/23 Jarred Roy MD [address] [facility] [address] [address] 01/30/19 Elma Echevarria NP [address] [facility] [address] [address] Nurse Practitioner General Surgery 12/16/19 documented as of this encounter
--- OUTSIDE RECORDS SUMMARY | 2024-05-10 20:16 | XMS_ITS | Encounter Summary ---
Author Organization [facility] Address [address] [place] [address] Care Team Providers Care Underwriting Account Representative Name Role Phone Jarred Roy MD Unavailable [phone] Elma Echevarria NP Unavailable StephensonLaura Thornton NP Primary Care Provider [phone] Reason for Referral * Diagnostic Imaging (Routine) - Closed Specialty Diagnoses / Procedures Referred By Contac t Referred To Contact Diagnoses Other specified disorders of amniotic fluid and membranes, unspecified trimester, other fetus Procedures US OB Under 14 Weeks Janett Robles NP [address] [place] [address] [address] LEX[address] Gramajo [address] [address] Phone: tel: fax: [address] [address] Referral ID Status Reason Start Date Expiration Date Visits Re quested Visits Authorized [id number] Closed 08/15/2023 09/13/2024 1 1 Reason for Visit * Diagnostic Imaging (Routine) - Closed Specialty Diagnoses / Procedures Referred By Contac t Referred To Contact Diagnoses Other specified disorders of amniotic fluid and membranes, unspecified trimester, other fetus Procedures US OB Under 14 Weeks Janett Robles NP [address] [facility] [address] LEXIE Gramajo [address] [address] Phone: tel: fax: [address] [address] Referral ID Status Reason Start Date Expiration Date Visits Re quested Visits Authorized [id number] Closed 08/15/2023 09/13/2024 1 1 Encounter Details Date Type Department Care Team (Latest Contact Info) Description 08/28/2023 10:08 AM CDT - 08/28/2023 11:59 PM CDT Hospital Encounter [facility] [address] [place] [address] Other specified disorders of amniotic fluid and membranes, unspecified trimester, other fetus Discharge Disposition: Discharge to home or self [...] any clubs o r organizations such as pentecostalism groups, unions, fraternal or athletic groups, or [...] in a fci (including now)? No 07/21/2021 [place] Depression Scale Answer Date Recorded [place] Depression Scale Total 6 09/03/2021 The thought of harming myself has occurred to me . 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 US OB UNDER 14 WEEKS REASON FOR STUDY: ?? Other specified disorders of amniotic fluid and membranes, unspecified trimester, other fetus ?? Follow-up of subchorionic hemorrhage. TECHNIQUE: ?? Transabdominal and transvaginal ??images acquired of the pelvis. COMPARISON: 08/10/2023. FINDINGS: The provided clinical age is 8 weeks 6 days with an EDC 04/02/2024. There is a single intrauterine with the pole and yolk sac. ?? Yolk sac measures 0.3 cm. ?? The heart rate is now 164 beats per minute. The mean crown-rump length is 1.40 cm which corresponds to an estimated age 7 weeks 5 days with an EDC 04/10/2024. Again seen is a hypoechoic, nonvascular collection characteristic of a subchorionic hemorrhage, this is now 1.7 x 0.6 x 0.7 cm, previously this measured 2.1 x 1.8 x 0.4 cm. Right ovary is 2.0 x 2.4 x 1.9 cm. ??Preserved color flow and waveforms. ??No adnexal mass. Left ovary is 2.5 x 2.3 x 2.6 cm. ??Preserved color flow and waveforms. ??No adnexal mass. No free fluid in the pelvis. IMPRESSION: 1. ?? Single intrauterine estimated at 7 weeks 5 days with EDC 04/10/2024. 2. ?? heart rate 164 beats per minute. 3. ?? Slight decreased size of subchorionic hemorrhage. THIS IS AN ELECTRONICALLY VERIFIED FINAL REPORT 08/28/2023 12:52 PM - Electronically signed by ??Stas Horta M.D. CH: ALDAIR D: ??08/28/2023 12:52 PM T: ??08/28/2023 12:52 PM Report ID: [id number] Reading Location: ??[id number] Procedure Note Stas Horta Jr., MD - 08/28/2023 EXAM DESCRIPTION: US OB UNDER 14 WEEKS REASON FOR STUDY: Other specified disorders of amniotic fluid andmembranes, unspecified trimester, other fetus Follow-up of subchorionic hemorrhage. TECHNIQUE: Transabdominal and transvaginal images acquired of thepelvis. COMPARISON: 08/10/2023. FINDINGS: The provided clinical age is 8 weeks 6 days with an EDC 04/02/2024. There is a single intrauterine with the pole and yolk sac. Yolk sac measures 0.3 cm. The heart rate is now 164 beats per minute. The mean crown-rump length is 1.40 cm which corresponds to an estimatedage 7 weeks 5 days with an EDC 04/10/2024. Again seen is a hypoechoic, nonvascular collection characteristic of a subchorionic hemorrhage, this is now 1.7 x 0.6 x 0.7 cm, previously this measured 2.1 x 1.8 x 0.4 cm. Right ovary is 2.0 x 2.4 x 1.9 cm. Preserved color flow and waveforms.No adnexal mass. Left ovary is 2.5 x 2.3 x 2.6 cm. Preserved color flow and waveforms. No adnexal mass. No free fluid in the pelvis. IMPRESSION: 1. Single intrauterine estimated at 7 weeks 5 days with EDC 04/10/2024. 2. heart rate 164 beats per minute. 3. Slight decreased size of subchorionic hemorrhage. THIS IS AN ELECTRONICALLY VERIFIED FINAL REPORT 08/28/2023 12:52 PM - Electronically signed by Stas Horta M.D. CH: ALDAIR Report ID: [id number] Reading Location: [id number] us Janett Robles INFORMATION ASSURANCE ENGINEER IMG OB US PROCEDURES Final R esult documented in this encounter Visit Diagnoses Diagnosis Other specified disorders of amniotic fluid and membranes, unspecified trimester, other fetus documented in this encounter Care Teams Underwriting Account Representative Relationship Specialty Start Date End Date Laura Madrid NP [address] [facility] [address] [place] [address] PCP - General Nurse Practitioner 02/09/22 12/02/23 Jarred Roy MD [address] [facility] [address] [address] 01/30/19 Elma Echevarria NP [address] [facility] [address] [address] Nurse Practitioner General Surgery 12/16/19 documented as of this encounter
--- OUTSIDE RECORDS SUMMARY | 2024-05-10 20:16 | XMS_ITS | Encounter Summary ---
Author Organization [facility] Address [address] [place] [address] Care Team Providers Care Javascript Software Engineer Name Role Phone Jarred Roy MD Unavailable [phone] EyersElma NP Unavailable No, Physician Primary Care Provider [phone] Encounter Details Date Type Department Care Team (Late st Contact Info) Description 01/17/2024 9:30 AM CDT Lab [facility] [address] [facility] [place] [address] Rh negative state in antepartum period Social [...] often do you attend chur ch or holiness services? Never 07/21/2021 Do you belong to [...] in a penitentiary (including now)? 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 Gender Identity Not on file Sexual Orientation Not on file documented as of this encounter Plan of Treatment Pending Results Name Type Priority Associated Diagnoses Date /Time Type and screen Lab Routine Rh negative state in antepartum period 01/17/2024 9:18 AM CDT documented as of this encounter Procedures Procedure Name Priority Date/Time Associated Diagnosis Comments TYPE AND SCREEN Routine 01/17/2024 9:18 AM CDT documented in this encounter Results * Type and screen (01/17/2024 9:18 AM CDT) Jorge, indirect Negative Comment:Patient has previous antibody history ABO Rh O Negative [facility] Blood 01/17/2024 9:18 AM CDT 01/17/2024 10:59 AM CDT Serina Carmona MD LAB BLOOD BANK TEST ORDERA BLES Final Result [facility] Department [place] [address] documented in this encounter Visit Diagnoses Diagnosis Rh negative state in antepartum period documented in this encounter Care Teams Javascript Software Engineer Relationship Specialty Start Date End Date No, Physician PCP - General 12/03/23 Jarred Roy MD [address] [facility] [address] [address] 01/30/19 Elma Echevarria NP [address] [facility] [address] [address] Nurse Practitioner General Surgery 12/16/19 documented as of this encounter
--- OUTSIDE RECORDS SUMMARY | 2024-05-10 20:16 | XMS_ITS | Encounter Summary ---
Author Organization [facility] Address [address] [place] [address] Phone Care Team Providers Care Director Special Education Name Role Phone Jarrde Roy MD Unavailable [phone] Elma Echevarria NP Unavailable No, Physician Primary Care Provider [phone] Reason for Visit * Reason Comments High Risk Gestation Encounter Details Date Type Department Care Team (Late st Contact Info) Description 01/31/2024 9:45 AM CDT Office Visit [facility] Maternal- Medicine [facility] Health 7th Floor [address] [place] [address] Elevated blood pressure reading without [...] often do you attend chur ch or judaism services? Never 07/21/2021 Do you belong to any clubs o r organizations such as nondenominational groups, unions, fraternal or athletic groups, or [...] in a alf (including now)? 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 Gender Identity Not on file Sexual Orientation Not on file documented as of this encounter Last Filed Vital Signs Vital Sign Reading Time Taken Comments Blood Pressure 106/67 01/31/2024 9:34 AM CDT Pulse 83 01/31/2024 9:34 AM CDT Temperature - - Respiratory Rate - - Oxygen Saturation 97% 01/31/2024 9:34 AM CDT Inhaled Oxygen Concentration - - Weight 143.7 kg (316 lb 12.8 oz) 01/31/2024 9:34 AM CDT Height 165.1 cm (5' 5 ) 01/31/2024 9:34 AM CDT Body Mass Index 52.72 01/31/2024 9:34 AM CDT documented in this encounter Progress Notes * Janeth Zacarias, OB/GYN DOCTOR - 01/31/2024 9:45 AM CDT MFM Return Visit 01/31/2024 Mary Singh is a 23 y.o. at 30w0d who is here for a return OB visit. Her is complicated by proteinuria, obesity, h/o pp hemorrhage and family history of ONTD. Subjective: Doing well today. Denies regular contractions, VB or LOF and reports good movement. Objective: BP 106/67 Pulse 83 Ht 165.1 cm (5' 5 ) Wt (!) 316 lb 12.8 oz (143.7 kg) LMP 07/05/2023 (Exact Date) SpO2 97% BMI 52.72 kg/m?? General: NAD Abdomen: Soft, gravid, NT, FHR + Ultrasound: AGA- see finalized US report Assessment/Plan: Mary Singh is a 23 y.o. at 30w0d with a complicated by the following: Problem [...] 3rd trimester anesthesia consultation if BMI >/=50- requested 01/31/2024 [x] Weekly testing at 34 weeks (BMI [...] high-risk , first trimester Overview [x] Full [facility] Care as of 12/13/2023 [x] [employer] email sent 12/12 Referring Provider: Janett Robles [phone] [] or Medicare Insurance [x] Dating Criteria: [...] at 34 weeks 2/2 obesity [] RSV: discussed for 32 weeks Counseling [x] MOD: IOL; scheduled for 04/02 [...] makes. She is considering exclusively pumping. [x] Cutter Finisher: [] PP Depression Discussed: Relevant Orders Flu Vaccine Tri MDCK, PF, 6M+ - Flucelvax (Completed) PTL/PEC/FKC precautions reviewed. Reviewed the importance of [...] , first trimester documented in this encounter Orders Immunization/Injection Count Last Ordered Date First Ordered Date FLU VACCINE TRI MDCK (6 MOS +) PF - FLUCELVAX 1 01/31/2024 documented in this encounter Care Teams Director Special Education Relationship Specialty Start Date End Date No, Physician PCP - General 12/03/23 Jarred Roy MD [address] [facility] [address] [address] 01/30/19 Elma Echevarria NP [address] [facility] [address] [address] Nurse Practitioner General Surgery 12/16/19 documented as of this encounter
--- OUTSIDE RECORDS SUMMARY | 2024-05-10 20:17 | XMS_ITS | Encounter Summary ---
Author Organization [facility] Address [address] [place] [address] Care Team Providers Care Abstracter Name Role Phone Jarred Roy MD Unavailable [phone] Venecia Turner MD Primary Care Provider [phone] Elma Echevarria NP Unavailable Reason for Visit * Reason Comments Routine Visit Encounter Details Date Type Department Care Team (Late st Contact Info) Description 02/26/2021 10:45 AM CDT Office Visit [facility] [address] [facility] Health 3rd Floor [address] [place] [address] Harika Abrams MD [address] [facility] [phone] [place] [address] Se Veliz MD [address] [address] Maternal obesity affecting , antepartum (Primary Dx); Supervision of other normal , antepartum; Rh negative state in antepartum period; Family history of neural tube defect Discharge Disposition: Discharge to home or self care Social History Tobacco Use Types Packs/Day Years Used Date Smoking Tobacco: Never Smokeless Tobacco: Never Alcohol Use Standard Drinks/Week Comments No 0 (1 standard drink = 0.6 oz pur e alcohol) Comments Yes Sex and Gender Information Value Date Recorded Sex Assigned at Not on file 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 Gender Identity Not on file Sexual Orientation Not on file documented as of this encounter Last Filed Vital Signs Vital Sign Reading Time Taken Comments Blood Pressure 132/64 02/26/2021 11:06 AM CDT Pulse 78 02/26/2021 11:06 AM CDT Temperature 36.1 ??C (97 ??F) 02/26/2021 11:06 AM CDT Respiratory Rate - - Oxygen Saturation 98% 02/26/2021 11:06 AM CDT Inhaled Oxygen Concentration - - Weight 124.1 kg (273 lb 8 oz) 02/26/2021 11:06 A M CDT Height - - Body Mass Index 45.51 02/21/2021 9:15 PM CDT documented in this encounter Discharge Disposition Disposition Code Departure Means Destination Discharge to home or self care documented in this encounter Progress Notes * Se Veliz MD - 02/26/2021 10:45 AM CDT OB RETURN VISIT 02/26/2021 Subjective: Mary Licona is a 21 y.o. at 18w4d who presents for her return OB visit. She has no ob complaints or concerns. She notes left ear and jaw pain, denies fever, and is tolerating PO. She has discussed with her primary PUBLICATIONS WRITER and at an urgent care visit, has a PCP appt in 1 month. She is using APAP and amoxicillin to treat possible ear infection. Has a plan if her jaw pain worsens. movement: Y VB?: N LOF?: N Ctxns? N Objective: Vitals: 02/26/21 1106 BP: 132/64 BP Location: Right arm Patient Position: Sitting Pulse: 78 Temp: 36.1 ??C (97 ??F) TempSrc: Temporal SpO2: 98% Weight: 273 lb 8 oz (124.1 kg) Gen: No acute distress. Abdomen: Soft, nontender, gravid. Extremities: Warm, well perfused. No lower extremity edema/erythema/tenderness. FHT: + Assessment/Plan: 21 y.o. at 18w4d. Problem List Gravid and Maternal obesity affecting , antepartum - Primary Overview - BMI 38 - A1c 03/2020 4.6 Plan: [] Routine 28w GTT Rh negative state in antepartum period Overview For 28w Rhogam Supervision of other normal , antepartum Overview First Trimester: [x] Dating Criteria: 1 [x] [...] [x] COVID vaccine: counseled 02/09/21 Second Trimester: [] Anatomy ultrasound: [facility] 03/26 at 22w per scheduling team [] Placenta Location: [] CBC [] 1hr gtt at 24-28wks: [] Flu Shot (Feb-Apr) [] Tdap (27-36wks) [] Rhogam (if Rh neg): indicated at 28w Third Trimester: [] CBC/HIV/RPR/T&S [] GBS [] GC/CT (if indicated) Counseling [] Method of delivery: [] Method of contraception: [] Method of feeding: [] [place] Wet Process: [] Car seat: [] PP Depression Counseling [] Attg visits (06/11) Relevant Orders POCT urinalysis dipstick (Completed) Neuro Family history of neural tube defect Overview - Sister with spina bifida, no other [...] 16w low risk for NTD, LR quad Plan: [] Specialized anatomy at 18-20w (ordered) [] Continue 1mg folate supplementation until delivery and prior to subsequent pregnancies RTC 4 weeks w/ ultrasound Patient seen and discussed with Dr. Rosenthal. Se Veliz MD PGY-4 (PRINTING MACHINIST) [phone] Cosigned by Karine Rosenthal MD at 03/01/2021 11:07 AM CDT Associated attestation - Karine Rosenthal MD - 03/01/2021 11:07 AM CDT I have seen and examined the patient. I agree with the findings and plan of care as documented in the resident/fellow's note. documented in this encounter Plan of Treatment Not on file documented as of this encounter Procedures Procedure Name Priority Date/Time Associated Diagnosis Comments POCT URINALYSIS DIPSTICK Routine 02/26/2021 11:32 AM CDT Supervision of other normal , antepartum documented in this encounter Results * POCT urinalysis dipstick (02/26/2021 11:32 AM CDT) Glucose, ur, POC Negative Negative mg/dL Bilirubin, ur, POC Negative Negative, Small, Moderate, Large Ketones, ur, POC Negative Negative Blood, ur, POC Negative Negative Protein, ur, POC Negative Negative Nitrite, ur, POC Negative Negative Leukocytes, ur, POC Negative Negative Lot Number [id number] Urine 02/26/2021 11:3 2 AM CDT Se Veliz MD POINT OF CARE TEST ORDER CHILO Final Result documented in this encounter Visit Diagnoses Diagnosis Maternal obesity affecting , antepartum- Primary Supervision of other normal , antepartum Rh negative state in antepartum period Family history of neural tube defect documented in this encounter Care Teams Abstracter Relationship Specialty Start Date End Date Venecia Turner MD [address] [facility] [address] [place] [address] [address] PCP - General 12/11/19 07/21/21 Jarred Roy MD 2 [facility] [address] [place] [address] 01/30/19 EyeElma charles NP [address] [facility] [address] [facility] [address] [place] [address] Nurse Practitioner General Surgery 12/16/19 documented as of this encounter
--- OUTSIDE RECORDS SUMMARY | 2024-05-10 20:17 | XMS_ITS | Encounter Summary ---
Author Organization [facility] Healthcare Address [address] [place] [address] Care Team Providers Care Construction Management Assistant Name Role Phone Jarred Roy MD Unavailable [phone] Venecia Turner MD Primary Care Provider [phone] EyersElma NP Unavailable Reason for Visit * Reason Comments Earache Fever Encounter Details Date Type Department Care Team (Late st Contact Info) Description 02/21/2021 9:17 PM CDT - 02/21/2021 10:57 PM CDT Emergency [facility] Emergency Department [address] [place] [address] Alexandria Villeda MD [address] [place] [id number] Otalgia, left ear (Primary Dx) Discharge Disposition: Discharge to home or self care Social History Tobacco Use Types Packs/Day Years Used Date Smoking Tobacco: Never Smokeless Tobacco: Never Alcohol Use Standard Drinks/Week Comments No 0 (1 standard drink = 0.6 oz pur e alcohol) Comments Yes Sex and Gender Information Value Date Recorded Sex Assigned at Not on file Legal Sex Female 11:28 PM [employer]GER [employer] Gender Identity Not on file Sexual Orientation Not on file documented as of this encounter Last Filed Vital Signs Vital Sign Reading Time Taken Comments Blood Pressure 138/70 02/21/2021 9:16 PM CDT Pulse 73 02/21/2021 9:15 PM CDT Temperature 36.7 ??C (98.1 ??F) 02/21/2021 9:15 PM CD T Respiratory Rate 14 02/21/2021 9:15 PM CDT Oxygen Saturation 100% 02/21/2021 9:15 PM CDT Inhaled Oxygen Concentration - - Weight 117.9 kg (260 lb) 02/21/2021 9:15 PM CDT Height 165.1 cm (5' 5 ) 02/21/2021 9:15 PM CDT Body Mass Index 43.27 02/21/2021 9:15 PM CDT documented in this encounter Discharge Diagnoses Diagnosis Other specified related conditions, second trimester - OTHER SPECIFIED RELATED CONDITIONS, SECOND TRIMESTER Otalgia, left ear - OTALGIA, LEFT EAR 17 weeks gestation of - 17 WEEKS GESTATION OF documented in this encounter Discharge Instructions * Discharge Instructions* Alexandria Villeda MD - 02/21/2021 10:27 PM CDT Take Tylenol 3 times a day as needed for pain control. * Attachments The following attachments cannot be sent through Care Everywhere. * Earache (AfterCare(R) Instructions(ER/ED)) (British) documented in this encounter Medications at Time of Discharge bacitracin (bacitracin) 500 unit/gram ointment Apply topically 2 (two) times a day 02/04/2019 2 ciprofloxacin-de xAMETHasone (CIPRODEX) otic suspension Administer 4 drops into the left ear 4 (four) times a day 7.5 mL 02/21/2021 2 folic acid (FOLVITE) 1 mg tablet Take 1 tablet (1 mg total) by mouth daily 30 tablet 11 02/09/2021 2 HYDROcodone-acet aminophen (NORCO) 5-325 mg per tabletIndication s:Pain Take 1 tablet by mouth every 4 (four) hours as needed for pain 12 tablet 03/11/2020 2 ibuprofen (ADVIL,MOTRIN) 600 mg tablet Take 1 tablet (600 mg total) by mouth every 8 (eight) hours as needed for pain. Take with food. 30 tablet 12/18/2017 2 topiramate (TOPAMAX) 25 mg tablet Take 50 mg by mouth nightly 07/12/2019 2 documented as of this encounter Ordered Prescriptions Prescription Sig Dispense Quantity Refills Last Filled Start Date End Date ciprofloxacin-dexA METHasone (CIPRODEX) otic suspension Administer 4 drops into the left ear 4 (four) times a day 7.5 mL 02/21/2021 2 documented in this encounter Discharge Disposition Disposition Code Departure Means Destination Discharge to home or self care documented in this encounter ED Notes * Alexandria Villeda MD - 02/21/2021 10:57 PM CDT HPI Chief Complaint Patient presents with ??? Earache ??? Fever Mary is a 21-year-old female at 17 weeks with no significant past medical history comes to the emergency department today for left-sided ear pain. Patient states this pain started earlier today, she took some Tylenol, she also notes her left ear hurts when she swallows. She denies any drainage. Denies changes in hearing. No other complaints at this time. No history of ear infection. Patient History: Patient Active Problem List Diagnosis Date Noted ??? Family history of neural tube defect 02/09/2021 ??? Supervision of other normal , antepartum 02/08/2021 ??? Rh negative state in antepartum period 02/08/2021 ??? Maternal obesity affecting , antepartum 12/14/2019 ??? Closed nondisplaced fracture of medial cuneiform of right foot 06/03/2019 Past Medical History: Diagnosis Date ??? Closed [...] of Systems Review of Systems Constitutional: Negative. Negative for activity change, appetite change, chills, diaphoresis, fatigue and fever. HENT: Positive for ear pain (Left). Negative for congestion, drooling, rhinorrhea and sore throat. Eyes: Negative. Negative for photophobia, redness and visual disturbance. Respiratory: Negative. Negative for cough, chest tightness and shortness of breath. Cardiovascular: Negative. Negative for chest pain, palpitations and leg swelling. Gastrointestinal: Negative. Negative for abdominal pain, anal bleeding, blood in stool, constipation, diarrhea, nausea and vomiting. Endocrine: Negative. Genitourinary: Negative. Negative for decreased urine volume, difficulty urinating, dysuria, frequency, hematuria and urgency. Musculoskeletal: Negative. Negative for arthralgias and myalgias. Skin: Negative. Negative for rash and wound. Allergic/Immunologic: Negative for immunocompromised state. Neurological: Negative. Negative for dizziness, weakness and headaches. Hematological: Negative. Does not bruise/bleed easily. Psychiatric/Behavioral: Negative. Negative for confusion. All other systems reviewed and are negative. Physical Exam ED Triage Vitals Temp Pulse Resp BP SpO2 02/21/21211402/21/21211402/21/21211402/21/21211502/21/212114 36.7 ??C (98.1 ??F) 73 14 138/70 100 % Temp src Heart Rate Source Patient Position BP Location FiO2 (%) 02/21/212114 -- -- -- -- Temporal Physical Exam Vitals and nursing note reviewed. Constitutional: General: She is not in acute distress. Appearance: She is well-developed. She is not ill-appearing, toxic-appearing or diaphoretic. HENT: Head: Normocephalic and atraumatic. Right Ear: Tympanic membrane, ear canal and external ear normal. There is no impacted cerumen. Left Ear: Tympanic membrane, ear canal and external ear normal. There is no impacted cerumen. Ears: Comments: Tenderness of the left ear on exam, no erythema of the canal, no drainage, brisk light reflex. Eyes: General: No scleral icterus. Extraocular Movements: Extraocular movements intact. Conjunctiva/sclera: Conjunctivae normal. Pupils: Pupils are equal, round, and reactive to light. Neck: Thyroid: No thyromegaly. Vascular: No JVD. Trachea: No tracheal deviation. Cardiovascular: Rate and Rhythm: Normal rate. Pulmonary: Effort: Pulmonary effort is normal. No respiratory distress. Abdominal: General: Abdomen is flat. Musculoskeletal: General: Normal range of motion. Cervical back: Normal range of motion and neck supple. Skin: General: Skin is warm and dry. Neurological: General: No focal deficit present. Mental Status: She is alert and oriented to person, place, and time. Mental status is at baseline. Motor: No abnormal muscle tone. Psychiatric: Mood and Affect: Mood normal. Behavior: Behavior normal. Thought Content: Thought content normal. Judgment: Judgment normal. MDM MDM Final diagnoses: Otalgia, left ear DISPOSITION:DISCHARGED There may be grammatical errors in this note due to use of voice recognition software. Alexandria Villeda MD 02/22/21 0004 * Carolyn Robles RN - 02/21/2021 9:13 PM CDT Pt c/o left ear pain and a fever. Pt took tylenol at 1900. documented in this encounter Plan of Treatment Not on file documented as of this encounter Visit Diagnoses Diagnosis Otalgia, left ear- Primary documented in this encounter Care Teams Construction Management Assistant Relationship Specialty Start Date End Date Venecia Turner MD [address] [facility] [address] LEXIE Gramajo [facility] [address] [place] [address] PCP - General 12/11/19 07/21/21 Jarred Roy MD [address] [facility] [address] [place] [address] 01/30/19 EyersElma NP [address] [facility] [address] LEXIE Gramajo [facility] [address] [place] [address] Nurse Practitioner General Surgery 12/16/19 documented as of this encounter
--- OUTSIDE RECORDS SUMMARY | 2024-05-10 20:17 | XMS_ITS | Encounter Summary ---
Author Organization [facility] Healthcare Address [address] [place] [address] Care Team Providers Care Natural Gas Treating Unit Operator Name Role Phone Jarred Roy MD Unavailable [phone] Venecia Turner MD Primary Care Provider [phone] Elma Echevarria NP Unavailable Encounter Details Date Type Department Care Team (Latest Contact Info) Description 06/22/2021 12:14 PM CASEWORK MANAGER - 06/22/2021 2:14 PM CASEWORK MANAGER Hospital Encounter [address] [phone] Noemi Collins MD [address] [facility] [phone] [place] [address] Discharge Disposition: Discharge to home or self care Social History Tobacco Use Types Packs/Day Years Used Date Smoking Tobacco: Never Smokeless Tobacco: Never Alcohol Use Standard Drinks/Week Comments No 0 (1 standard drink = 0.6 oz pur e alcohol) AUDIT-C Answer Date Recorded Q1: How often do you have a drink containing alc ohol? Never 06/22/2021 Average Number of Drinks Not on file 022 Q3: How often do you have si x or more drinks on one occasion? Never 06/22/2021 Comments Yes Sex and Gender Information Value Date Recorded Sex Assigned at Not on file Legal Sex Female 11:28 PM CASEWORK MANAGER Gender Identity Not on file Sexual Orientation Not on file documented as of this encounter Last Filed Vital Signs Vital Sign Reading Time Taken Comments Blood Pressure 117/70 06/22/2021 12:59 PM CASEWORK MANAGER Pulse 82 06/22/2021 2:00 PM CASEWORK MANAGER Temperature 36.8 ??C (98.2 ??F) 06/22/2021 1 2:59 PM CASEWORK MANAGER Respiratory Rate 18 06/22/2021 12:5 9 PM CASEWORK MANAGER Oxygen Saturation 97% 06/22/2021 2:00 PM CASEWORK MANAGER Inhaled Oxygen Concentration - - Weight 132.3 kg (291 lb 11.2 oz) 2021 12:59 PM CASEWORK MANAGER Height 165.1 cm (5' 5 ) 06/22/2021 12:5 9 PM CASEWORK MANAGER Body Mass Index 48.54 06/22/2021 12:59 PM CASEWORK MANAGER documented in this encounter Discharge Diagnoses Diagnosis Other specified related conditions, third trimester - OTHER SPECIFIED RELATED CONDITIONS, THIRD TRIMESTER Unspecified abdominal pain - UNSPECIFIED ABDOMINAL PAIN Diseases of the digestive system complicating , third trimester - DISEASES OF THE DIGESTIVE SYSTEM COMPLICATING , THIRD TRIMESTER Gastro-esophageal reflux disease without esophagitis - GASTRO-ESOPHAGEAL REFLUX DISEASE WITHOUT ESOPHAGITIS 35 weeks gestation of - 35 WEEKS GESTATION OF long-term (current) use of non-steroidal anti-inflammatories (nsaid) - LABORER SHELLFISH PROCESSING (CURRENT) USE OF NON-STEROIDAL ANTI-INFLAMMATORIES (NSAID) Other assisted (current) drug therapy - OTHER LABORER SHELLFISH PROCESSING (CURRENT) DRUG THERAPY documented in this encounter Discharge Instructions * Discharge Instructions* Jeanine Santillan RN - 06/22/2021 2:05 PM CASEWORK MANAGER at 35 to 38 Weeks WHAT YOU NEED TO KNOW: You are considered full term at the beginning of 37 weeks. Your breathing may be easier if your baby has moved down into a head-down position. You may need to urinate more often because the baby may be pressing on your bladder. You may also feel more discomfort and get tired easily. DISCHARGE INSTRUCTIONS: Return to the emergency department if: ?? You develop a severe headache that does not go away. ?? You have new or increased vision changes, such as blurred or spotted vision. ?? You have new or increased swelling in your face or hands. ?? You have vaginal spotting or bleeding. ?? Your water broke or you feel warm water gushing or trickling from your vagina. Contact your healthcare provider if: ?? You have more than 5 contractions in 1 hour. ?? You notice any changes in your baby's movements. ?? You have abdominal cramps, pressure, or tightening. ?? You have a change in vaginal discharge. ?? You have chills or a fever. ?? You have vaginal itching, burning, or pain. ?? You have yellow, green, white, or foul-smelling vaginal discharge. ?? You have pain or burning when you urinate, less urine than usual, or pink or bloody urine. ?? You have questions or concerns about your condition or care. How to care for yourself at this stage of your : ?? Eat a variety of healthy foods. Healthy foods include fruits, vegetables, whole-grain breads, low-fat dairy foods, beans, lean meats, and fish. Drink liquids as directed. Ask how much liquid to drink each day and which liquids are best for you. Limit caffeine to less than 200 milligrams each day. Limit your intake of fish to 2 servings each week. Choose fish low in mercury such as canned lighttuna, shrimp, crab, salmon, cod, or tilapia. Do not eat fish high in mercury such as swordfish, tilefish, arnaldo mackerel, and shark. ?? Take vitamins as directed. Your need for certain vitamins and minerals, such as folic acid, increases during . vitamins provide some of the extra vitamins and minerals you need. vitamins may also help to decrease the risk of certain defects. ?? Rest as needed. Put your feet up if you have swelling in your ankles and feet. ?? Do not smoke. If you smoke, it is never too late to quit. Smoking increases your risk of a miscarriage and other health problems during your . Smoking can cause your baby to be born too early or weigh less at . Ask your healthcare provider for information if you need help quitting. ?? Do not drink alcohol. Alcohol passes from your body to your baby through the placenta. It can affect your baby's brain development and cause alcohol syndrome (FAS). FAS is a group of conditions that causes mental, behavior, and growth problems. ?? Talk to your healthcare provider before you take any medicines. Many medicines may harm your baby if you take them when you are . Do not take any medicines, vitamins, herbs, or supplementswithout first talking to your healthcare provider. Never use illegal or street drugs (such as marijuana or cocaine) while you are . ?? Talk to your healthcare provider before you travel. You may not be able to travel in an airplaneafter 36 weeks. He may also recommend that you avoid long road trips. Safety tips: ?? Avoid hot tubs and saunas. Do not use a hot tub or sauna while you are , especially during your first trimester. Hot tubs and saunas may raise your baby's temperature and increase the riskof defects. ?? Avoid toxoplasmosis. This is an infection caused by eating raw meat or being around infected catfeces. It can cause defects, miscarriages, and other problems. Wash your hands after you touch raw meat. Make sure any meat is well- cooked before you eat it. Avoid raw eggs and unpasteurized milk. Use gloves or ask someone else to clean your cat's litter box while you are . ?? Ask your healthcare provider about travel. The most comfortable time to travel is during the second trimester. Ask your healthcare provider if you can travel after 36 weeks. You may not be able totravel in an airplane after 36 weeks. He may also recommend that you avoid long road trips. Changes that are happening with your baby: By 38 weeks, your baby may weigh between 6 and 9 pounds.Your baby may be about 14 inches long from the top of the head to the rump (baby's bottom). Your baby hears well enough to know your voice. As your baby gets larger, you may feel fewer kicks and morestretching and rolling. Your baby may move into a head-down position. Your baby will also rest lower in your abdomen. What you need to know about care: Your healthcare provider will check your blood pressure and weight. You may also need the following: ?? A urine test may also be done to check for sugar and protein. These can be signs of gestational diabetes or infection. Protein in your urine may also be a sign of preeclampsia. Preeclampsia is a condition that can develop during week 20 or later of your . It causes high blood pressure, and it can cause problems with your kidneys and other organs. ?? A blood test may be done to check for anemia (low iron level). ?? A Tdap vaccine may be recommended by your healthcare provider. ?? A group B strep test is a test that is done to check for group B strep infection. Group B strep is a type of bacteria that may be found in the vagina or rectum. It can be passed to your baby during delivery if you have it. Your healthcare provider will take swab your vagina or rectum and send the sample to the lab for tests. ?? Fundal height is a measurement of your uterus to check your baby's growth. This number is usually the same as the number of weeks that you have been . Your healthcare provider may also check your baby's position. ?? Your baby's heart rate will be checked. ?? 2017 [employer] Information is for End User's use only and may not be sold, redistributed or otherwise used for commercial purposes. All illustrations and images included in CareNotes?? are the copyrighted property of [employer], [employer]. or [employer]. The above information is an braider setter only. It is not intended as medical advice for individual conditions or treatments. Talk to your doctor, nurse or pharmacist before following any medical regimen to see if it is safe and effective for you. WORK MANAGER documented in this encounter Medications at Time of Discharge acetaminophen 500 mg capsuleIndicatio ns:Fever,Pain Take 2 capsules (1,000 mg total) by mouth every 6 (six) hours as needed for pain 60 tablet 07/21/2021 2 bacitracin (bacitracin) 500 unit/gram ointment Apply topically 2 (two) times a day 02/04/2019 2 docusate sodium (COLACE) 100 mg capsuleIndicatio ns:constipation, Stool Softener Take 1 capsule (100 mg total) by mouth 2 (two) times a day 60 capsule 07/21/2021 2 folic acid (FOLVITE) 1 mg tablet Take 1 tablet (1 mg total) by mouth daily 30 tablet 11 02/09/2021 2 ibuprofen (ADVIL,MOTRIN) 600 mg tabletIndication s:Cramps Take 1 tablet (600 mg total) by mouth every 6 (six) hours as needed for pain 60 tablet 07/21/2021 2 polyethylene glycol (MIRALAX) 17 gram packetIndication s:constipation Take 1 packet (17 g total) by mouth daily as needed for constipation 20 packet 07/21/2021 2 topiramate (TOPAMAX) 25 mg tablet Take 50 mg by mouth nightly 07/12/2019 2 documented as of this encounter Discharge Disposition Disposition Code Departure Means Destination Discharge to home or self care documented in this encounter H&P Notes * Noemi Collins MD - 06/22/2021 1:25 PM CST Obstetrics H&P Chief Complaint: abdominal pain Estimated Date of Delivery: 07/26/21 [facility] HPI: Mary Licona is a 21 y.o. female at 35w1d gestation, dated by 1st trimester ultrasound Her is complicated by family hx NTD (see problem list), Rh negative, [place], one elevated BP,Rub NI VZV NI Patient presents to [facility] for c/o abdominal pain for the last couple days. She notes she vomited 2 nights ago, but has some reflux. Denies N/V now. She bent down yesterday and then noted pain around her belly button. She reports it as a sharp, constant pain. She reports it hurts when you push on it, but it also radiates down to LLQ. She feels like her baby's head is in her ribs and maybe she is trying to turn. She denies VB or LOF. She reports lots of movement. She has an ultrasound appointment tomorrow. 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 Patient is . History of Abnormal Pap: None STD History: none Past Medical History: Diagnosis Date ??? Closed nondisplaced fracture of medial cuneiform of right foot 06/03/2019 ??? HX OTHER MEDICAL T&A in 2011; Comments: MIRANDA 05/20/2014 - ??? HX OTHER MEDICAL elbow fracture 02-06-15.; Comments: MIRANDA 02/09/2015 - Chronic hypertension: No Diabetes: No Asthma: No Past Surgical History: Procedure Laterality Date ??? TONSILLECTOMY/ADENOIDECTOMY Bilateral Social History Socioeconomic History ??? Marital status: Single Tobacco Use ??? Smoking status: Never Smoker ??? Smokeless tobacco: Never Used Vaping Use ??? Vaping Use: Never used Substance and Sexual Activity ??? Alcohol use: No ??? Drug use: Never ??? Sexual activity: Defer Support System: Supported by family Safe at home: Yes family history includes Hypertension in her father; Other in her mother. Family history of bleeding or clotting disorders: No Family history of defects, genetic disorders, or developmental delay: No No Known Allergies HOME MEDICATIONS : ciprofloxacin-dexAMETHasone (CIPRODEX) otic suspension folic acid (FOLVITE) 1 mg tablet HYDROcodone-acetaminophen (NORCO) 5-325 mg per tablet ibuprofen (ADVIL,MOTRIN) 600 mg tablet Review of Sys: Negative except per HPI Vitals: Temp: [36.8 ??C (98.2 ??F)] 36.8 ??C (98.2 ??F) Pulse: [83-93] 83 Resp: [18] 18 BP: (117)/(70) 117/70 Lab Review: Recent Results (from the past 24 hour(s)) POCT urinalysis dipstick Collection Time: 06/22/21 1:15 PM Result Value Ref Range Color, Urine, POC Light Yellow Clarity, ur, POC Clear Clear Glucose, ur, POC Negative Negative mg/dL Bilirubin, ur, POC Negative Negative, Small, Moderate, Large Ketones, ur, POC Negative Negative Specific Charlotte, POC 1.005 1.005 - 1.030 Blood, ur, POC Negative Negative pH, ur, POC 8.0 5.0 - 8.0 Protein, ur, POC Negative Negative Urobilinogen, urine, POC 0.2 0.2 - 1.0 mg/dL Nitrite, ur, POC Negative Negative Leukocytes, ur, POC Negative Negative Lot Number [id number] reviewed the laboratory result(s) Physical Exam: General: NAD, mood appropriate Cardiovascular: Regular rate and rhythm Pulmonary: Clear to ausculation bilaterally Abdomen: Gravid, soft, overall non tender, patient reports pain around umbilicus, no bruising Extremities: Warm and well perfused Speculum Exam: deferred Cervix: / / deferred Monitoring: Baseline: 140 bpm, Variability: Moderate, Accelerations: Present and Decelerations: None Uterine Activity: No contractions seen on toco Interpretation: Reactive and reassuring tracing Ultrasound: Anterior placenta Previa: No Labs: Lab Results Component Value Date ABORH O Negative 05/17/2021 IDCOOMB Negative 05/17/2021 [id number] Nonreactive 05/17/2021 LABRPR Nonreactive 05/17/2021 GBS unknown Patient Active Problem List Diagnosis ??? Closed nondisplaced fracture of medial cuneiform of right foot ??? Maternal obesity affecting , antepartum ??? Supervision of other normal , antepartum ??? Rh negative state in antepartum period ??? Family history of neural tube defect ??? Elevated blood pressure affecting , antepartum Assessment and Plan Mary Licona is a 21 y.o. female at 35w1d who presented with abdominal pain. #FWB reactive NST Reports good movement #Abdominal pain: POCT UA unremarkable SSE deferred SVE deferred No contractions noted on toco. Abdominal exam benign. Tylenol 1gm given Pain improved with tylenol, went from 6/10 to 3/10. Consistent with musculoskeletal discomforts of . Encouraged Tylenol, heat and support belt. Plan discussed with Dr. Mart. Sandra for discharge to home. To keep next scheduled appointment. Strict return precautions given. SOUTH Castro-NAIN 06/22/21 I have reviewed and agree with the documentation by the resident/DISTRIBUTION ESTIMATOR. I did not see the patient. Noemi Collins MD WORK MANAGER WORK MANAGER documented in this encounter Procedure Notes * Noemi Collins MD - 06/22/2021 2:14 PM CST Procedures FHR Baseline: 140 Variability: moderate Accelerations: present Decelerations: absent Contractions: absent Reactive: Yes I have reviewed the NST. Noemi Collins MD WORK MANAGER * Becky Harrison NP - 06/22/2021 2:05 PM CST Procedures Mary Licona is a 21 y.o. female at 35w1d weeks gestation with Estimated Date of Delivery: 07/26/21. She presented with abdominal pain Time on the monitor: [id number] FHR Baseline: 140 Variability: moderate Accelerations: present Decelerations: absent Contractions: absent Reactive: Yes and reassuring tracing I have reviewed the NST: reactive and reassuring tracing. I have instructed the RN to take the patient off the monitor. NICOLE Castro 06/22/21 Cosigned by Noemi Collins MD at 06/22/2021 3:15 PM CASEWORK MANAGER WORK MANAGER WORK MANAGER documented in this encounter Nursing Notes * Jeanine Santillan RN - 06/22/2021 2:09 PM CST Patient presented to [facility] from home complaining of mid abdominal pain since yesterday. Pt reports she had a sharp pain in her belly yesterday when she bent over, and has had a residual pain since then. Pt reports she has not tried heat or tylenol yet for pain relief. Pt reports pain worsens with certain positions and activity. Pt denies any ctx. + FM, denies VB, denies LOF EFM & TOCO applied. VSS, Urine Dip WNL. Pt reports pain relief after tylenol, declines wanting flexeril at this time. Pt scheduled for appttom[facility] with [facility]. Discharged home in stable condition with reference and WAC precautions. Pt instructed to keep all follow up appointments as scheduled. Pt verbalizes understanding and denies further needs at this time. 06/22/2021 Jeanine Doyle RN WORK MANAGER documented in this encounter Plan of Treatment Not on file documented as of this encounter Procedures Procedure Name Priority Date/Time Associated Diagnosis Comments POCT URINALYSIS DIPSTICK Routine 06/22/2021 1:15 PM CASEWORK MANAGER documented in this encounter Results * POCT urinalysis dipstick (06/22/2021 1:15 PM CASEWORK MANAGER) Color, Urine, POC Light Yellow Clarity, ur, POC Clear Clear Glucose, ur, POC Negative Negative mg/dL Bilirubin, ur, POC Negative Negative, Small, Moderate, Large Ketones, ur, POC Negative Negative Specific Charlotte, POC 1.005 1.005 - 1.030 Blood, ur, POC Negative Negative pH, ur, POC 8.0 5.0 - 8.0 Protein, ur, POC Negative Negative Urobilinogen, urine, POC 0.2 0.2 - 1.0 mg/dL Nitrite, ur, POC Negative Negative Leukocytes, ur, POC Negative Negative Lot Number [id number] Urine 06/22/2021 1:15 PM CASEWORK MANAGER Ashlye Joseph DISTRIBUTION ESTIMATOR POINT OF CARE TEST ORDERABLE S Final Result documented in this encounter Visit Diagnoses Not on filedocumented in this encounter Administered Medications Inactive Administered Medications - up to 3 most recent administrations Medication Order MAR Action Action Date Dose Rate Site acetaminophen (TYLENOL) tablet 1,000 mg 1,000 mg, oral, Once, On Mon06/22/21 at 1345, For 1 dose Given 06/22/2021 1:21 PM CASEWORK MANAGER 1,000 mg documented in this encounter Discontinued Medications Medication Sig Discontinue Reason Start Date End Da te ibuprofen (ADVIL,MOTRIN) 600 mg tablet Take 1 tablet (600 mg total) by mouth every 8 (eight) hours as needed for pain. Take with food. Stop Taking at Discharge 12/18/2017 06/22/2021 HYDROcodone-acetamino phen (NORCO) 5-325 mg per tabletIndications:Rosa n Take 1 tablet by mouth every 4 (four) hours as needed for pain Stop Taking at Discharge 03/11/2020 06/22/2021 ciprofloxacin-dexAMET Hasone (CIPRODEX) otic suspension Administer 4 drops into the left ear 4 (four) times a day Stop Taking at Discharge 02/21/2021 06/22/2021 documented as of this encounter Active and Recently Administered Medications Times are shown in CASEWORK MANAGER. Scheduled Medication Order 06/20/2021 06/21/2021 06/22/2021 acetaminophen (TYLENOL) tablet 1,000 mg (COMPLETED) 1,000 mg, oral, Once, On Mon06/22/21 at 1345, For 1 dose 1321 (Given - Provid er: Jeanine Santillan RN) documented in this encounter Orders Nursing Count Last Ordered Date First Orde red Date VITAL SIGNS 1 06/22/2021 documented in this encounter Care Teams Natural Gas Treating Unit Operator Relationship Specialty Start Date End Date Venecia Turner MD [address] [facility] [address] LEXIE Gramajo [facility] [address] [place] [address] PCP - General 12/11/19 07/21/21 Jarred Roy MD 2 [facility] [address] [place] [address] 01/30/19 Elma Echevarria NP [address] [facility] [address] LEXIE Gramajo [facility] [address] [place] [address] Nurse Practitioner General Surgery 12/16/19 documented as of this encounter
--- OUTSIDE RECORDS SUMMARY | 2024-05-10 20:17 | XMS_ITS | Encounter Summary ---
Author Organization [facility] Healthcare Address [address] [place] [address] Care Team Providers Care Medical Territory Manager Name Role Phone Jarred Roy MD Unavailable [phone] Venecia Turner MD Primary Care Provider [phone] Elma Echevarria NP Unavailable Reason for Visit * Reason Comments Routine Visit Encounter Details Date Type Department Care Team (Late st Contact Info) Description 07/08/2021 3:30 PM BUTTER PRINTER Office Visit Obstetrics and Gynecology Clinic [address] [facility] 3rd Floor [address] [place] [address] Harika Abrams MD [address] [facility] [phone] [place] [address] Se Veliz MD [address] [address] Rh negative state in antepartum period (Primary Dx); Supervision of other normal , antepartum; Maternal obesity affecting , antepartum Discharge Disposition: Discharge to home or self [...] on file Legal Sex Female 11:28 PM BUTTER PRINTER Gender Identity Not on file Sexual Orientation Not on file documented as of this encounter Last Filed Vital Signs Vital Sign Reading Time Taken Comments Blood Pressure 133/68 07/08/2021 3:43 PM BUTTER PRINTER Pulse 95 07/08/2021 3:43 PM BUTTER PRINTER Temperature - - Respiratory Rate - - Oxygen Saturation 97% 07/08/2021 3:43 PM BUTTER PRINTER Inhaled Oxygen Concentration - - Weight 134.4 kg (296 lb 4.8 oz) 07/08/2021 3:43 PM BUTTER PRINTER Height - - Body Mass Index 49.31 06/22/2021 12:59 PM BUTTER PRINTER documented in this encounter Discharge Disposition Disposition Code Departure Means Destination Discharge to home or self care documented in this encounter Progress Notes * Se Veliz MD - 07/08/2021 3:30 PM CST OB RETURN VISIT 07/09/2021 Subjective: Mary Licona is a 21 y.o. at 37w4d who presents for her return OB visit. She has no ob complaints or concerns. movement: Y VB?: N LOF?: N Ctxns? N Objective: Vitals: 07/08/21 1543 BP: 133/68 BP Location: Left arm Patient Position: Sitting Pulse: 95 SpO2: 97% Weight: 296 lb 4.8 oz (134.4 kg) Gen: No acute distress. Abdomen: Soft, nontender, gravid. Extremities: Warm, well perfused. No lower extremity edema/erythema/tenderness. FHT: + 120s Assessment/Plan: 21 y.o. at 37w4d. Problem List Gravid and Maternal obesity affecting , antepartum Overview - BMI 38 - A1c 03/2020 4.6 - GTT 91 - 3T growth 40% Plan: [] Routine PNC Rh negative state in antepartum period - Primary Overview For 28w Rhogam (given 05/17/21) Supervision of other normal , antepartum Overview [...] [x] Method of feeding: Plans breast [] Senior Lead Java Developer: [] Car seat: [] PP Depression Counseling [x] Attg visits (11/08) Relevant Orders POCT urinalysis dipstick (Completed) RTC 1 weeks. Reviewed [facility] precautions, hospital delivery planning. COVID screening to be ordered atnext visit. Patient seen and discussed with Dr. Arias. Se Veliz MD PGY-4 (MEDIA SPECIALIST) [phone] Cosigned by Kerry Arias MD at 07/11/2021 2:26 PM BUTTER PRINTER ER PRINTER ER PRINTER Associated attestation - Kerry Arias MD - 07/11/2021 2:26 PM BUTTER PRINTER I have seen and examined the patient. I agree with the findings and plan of care as documented in the resident/fellow's note. Patient is at 37w4d here for return OB visit. Return to office in one week. [facility] precautions reviewed. Kerry Arias MD documented in this encounter Plan of Treatment Not on file documented as of this encounter Procedures Procedure Name Priority Date/Time Associated Diagnosis Comments POCT URINALYSIS DIPSTICK Routine 07/08/2021 3:51 PM BUTTER PRINTER Supervision of other normal , antepartum documented in this encounter Results * (ABNORMAL) POCT urinalysis dipstick (07/08/2021 3:51 PM BUTTER PRINTER) Glucose, ur, POC Negative Negative mg/dL Ketones, ur, POC Negative Negative Blood, ur, POC Negative Negative Protein, ur, POC Trace(A) Negative Nitrite, ur, POC Negative Negative Leukocytes, ur, POC Negative Negative Lot Number [id number] Urine 07/08/2021 3:51 PM BUTTER PRINTER Se Veliz MD POINT OF CARE TEST ORDER CHILO Final Result documented in this encounter Visit Diagnoses Diagnosis Rh negative state in antepartum period- Primary Supervision of other normal , antepartum Maternal obesity affecting , antepartum documented in this encounter Care Teams Medical Territory Manager Relationship Specialty Start Date End Date Venecia Turner MD [address] [place] [address] DR LEXIE Gramajo [facility] [address] [place] [address] PCP - General 12/11/19 07/21/21 Jarred Roy MD 2 [facility] [address] [place] [address] 01/30/19 Elma Echevarria NP [address] [place] [address] DR LEXIE Gramajo [facility] [address] [place] [address] Nurse Practitioner General Surgery 12/16/19 documented as of this encounter
--- OUTSIDE RECORDS SUMMARY | 2024-05-10 20:17 | XMS_ITS | Encounter Summary ---
Author Organization [facility] Healthcare Address [address] [place] [address] Care Team Providers Care Truck Service Manager Name Role Phone Jarred Roy MD Unavailable [phone] Venecia Turner MD Primary Care Provider [phone] Elma Echevarria NP Unavailable Encounter Details Date Type Department Care Team (Late st Contact Info) Description 01/15/2021 Telephone Obstetrics and Gynecology Clinic [address] [facility] 3rd Floor [address] [place] [address] Faina Morales RN Social History Tobacco Use Types Packs/Day Years Used Date Smoking Tobacco: Never Smokeless Tobacco: Never Alcohol Use Standard Drinks/Week Comments No 0 (1 standard drink = 0.6 oz pur e alcohol) Comments Unknown Sex and Gender Information Value Date Recorded Sex Assigned at Not on file Legal Sex Female 11:28 PM BACTERIOLOGY TECHNICIAN Gender Identity Not on file Sexual Orientation Not on file documented as of this encounter Miscellaneous Notes * Telephone Encounter - Faina Morales RN - 01/15/2021 9:56 AM CDT Attempt to contact pt re: [facility] intake, no identifier on voicemail, unable to leave message. documented in this encounter Plan of Treatment Not on file documented as of this encounter Visit Diagnoses Not on filedocumented in this encounter Care Teams Truck Service Manager Relationship Specialty Start Date End Date Venecia Turner MD [address] [facility] [address] LEXIE Gramajo [facility] [address] [place] [address] PCP - General 12/11/19 07/21/21 Jarred Roy MD 2 [facility] [address] [place] [address] 01/30/19 Elma Echevarria NP [address] [facility] [address] LEXIE Gramajo [facility] [address] [place] [address] Nurse Practitioner General Surgery 12/16/19 documented as of this encounter
--- OUTSIDE RECORDS SUMMARY | 2024-05-10 20:17 | XMS_ITS | Encounter Summary ---
Author Organization [facility] Healthcare Address [address] [place] [address] Care Team Providers Care Oil Field Roustabout Name Role Phone Jarred Roy MD Unavailable [phone] Venecia Turner MD Primary Care Provider [phone] Elma Echevarria NP Unavailable Reason for Visit * Reason Comments Routine Visit Encounter Details Date Type Department Care Team (Late st Contact Info) Description 06/30/2021 12:30 PM IT OPERATIONS SPECIALIST Office Visit Obstetrics and Gynecology Clinic [address] [facility] 3rd Floor [address] [place] [address] Harika Abrams MD [address] [facility] [phone] [place] [address] Se Veliz MD [address] [address] Supervision of other normal , antepartum (Primary Dx); Maternal obesity affecting , antepartum; Rh negative state in antepartum period Discharge Disposition: Discharge to home or self [...] on file Legal Sex Female 11:28 PM IT OPERATIONS SPECIALIST Gender Identity Not on file Sexual Orientation Not on file documented as of this encounter Last Filed Vital Signs Vital Sign Reading Time Taken Comments Blood Pressure 129/81 06/30/2021 12:27 PM IT OPERATIONS SPECIALIST Pulse 83 06/30/2021 12:27 PM IT OPERATIONS SPECIALIST Temperature 36.5 ??C (97.7 ??F) 06/30/2021 1 2:27 PM IT OPERATIONS SPECIALIST Respiratory Rate - - Oxygen Saturation 99% 06/30/2021 12: 27 PM IT OPERATIONS SPECIALIST Inhaled Oxygen Concentration - - Weight 133.3 kg (293 lb 12.8 oz) 2021 12:27 PM IT OPERATIONS SPECIALIST Height - - Body Mass Index 48.89 06/22/2021 12:59 PM IT OPERATIONS SPECIALIST documented in this encounter Patient Instructions * Patient Instructions* Se Veliz MD - 06/30/2021 12:30 PM IT OPERATIONS SPECIALIST Contact us Office hours: Monday-Monday 8:30 AM-4:30 PM Phone number: [phone] Daytime: Call us if you have questions or if you are getting worse after your appointment. If you need to cancel or change your appointment, call during normal clinic hours. We appreciate at least 24 hours notice for cancellations. Call during daytime hours to change your appointment, for paperwork or othernon- urgent needs. Do not call the clinic to request refills, call your pharmacy and they will contact the clinic. After hours emergencies: If the clinic is not open and you are having a medical problem, you can call us at [phone]. Please wait until the clinic is open for non-urgent needs as this emergency line cannot help with appointments, paperwork or prescriptions. If you have an emergency and cannot wait, please call 911 or go to the [facility] Emergency room. If you are having a problem with your or are in labor you can go to the [facility] (check in near elevator on first floor) 1 [facility], 5th [place] [address]. OPERATIONS SPECIALIST documented in this encounter Discharge Disposition Disposition Code Departure Means Destination Discharge to home or self care documented in this encounter Progress Notes * Se Veliz MD - 06/30/2021 12:30 PM CST OB RETURN VISIT 06/30/2021 Subjective: Mary Licona is a 21 y.o. at 36w2d who presents for her return OB visit. She has no ob complaints or concerns. Picked a account officer, has not confirmed control plan yet. She has had some episodes of incontinence of yellow, urine-smelling fluid, no ongoing discharge and no clear fluid. movement: Y VB?: N LOF?: N Ctxns? N Objective: Vitals: 06/30/21 1227 BP: 129/81 BP Location: Right arm Patient Position: Sitting Pulse: 83 Temp: 36.5 ??C (97.7 ??F) TempSrc: Oral SpO2: 99% Weight: 293 lb 12.8 oz (133.3 kg) Gen: No acute distress. Abdomen: Soft, nontender, gravid. Extremities: Warm, well perfused. No lower extremity edema/erythema/tenderness. FHT: +130s EPDS: mood stable Assessment/Plan: 21 y.o. at 36w2d. Problem List Gravid and Maternal obesity affecting , antepartum Overview - BMI 38 - A1c 03/2020 4.6 - GTT 91 - 3T growth 40% Plan: [] Routine Rh negative state in antepartum period Overview For 28w Rhogam (given 05/17/21) Supervision of other normal , antepartum - Primary Overview First Trimester: [x] Dating Criteria: 1 [...] 05/17/21 Third Trimester: [x] CBC/HIV/RPR/T&S wnl 05/17/21 [] GBS @36w collected 06/30/21 [x] GC/CT (if indicated) neg Counseling [x] Method of delivery: Ant vaginal [x] Method of contraception: Considering LARC s/p extensive counseling [x] Method of feeding: Plans breast [] Polygraph Examiner: [] Car seat: [] PP Depression Counseling [x] Attg visits (09/08) Relevant Orders POCT urinalysis dipstick (Completed) RTC [address] discussed [address] Zavala. Se Veliz MD PGY-4 (BALING PRESS OPERATOR) [phone] Cosigned by Kerry Zavala DO at 07/04/2021 9:34 AM IT OPERATIONS SPECIALIST OPERATIONS SPECIALIST OPERATIONS SPECIALIST Associated attestation - Kerry Zavala DO - 07/04/2021 9:34 AM IT OPERATIONS SPECIALIST I agree with the findings and plan of care as documented in the resident/fellow's note. 21 year old at 36+2 who presents for ASHOK. c/b obesity (BMI 48) and RH negative (s/p Rhogam at 28 weeks). Return to clinic in 1 week. Kerry Zavala DO documented in this encounter Plan of Treatment Not on file documented as of this encounter Procedures Procedure Name Priority Date/Time Associated Diagnosis Comments POCT URINALYSIS DIPSTICK Routine 06/30/2021 12:33 PM IT OPERATIONS SPECIALIST Supervision of other normal , antepartum documented in this encounter Results * (ABNORMAL) Group B streptococcal culture Vaginal/Rectal (06/30/2021 4:40 PM IT OPERATIONS SPECIALIST) Report Final Report: Streptococcus agalactiae (Group B [...] allergic patients, please contact the laboratory at [phone] to request susceptibility testing * ??* ??* ??* ??* ??* ??* ??* ??* ??* ??* ??* ??* ??* ??* ??* ??* ??* ??* ??* (.) [facility] Organism STREPTOCOCCUS AGALACTIAE (GROUP B STREPTOCOCCI) [facility] Vaginal/Rectal 06/30/2021 4: 40 PM IT OPERATIONS SPECIALIST 06/30/2021 7:04 PM IT OPERATIONS SPECIALIST Narrative [facility] - 07/02/2021 1:36 PM IT OPERATIONS SPECIALIST Testing performed by [facility] ([phone]). us Se Veliz MD LAB MICROBIOLOGY - GENER AL ORDERABLES Final Result [facility] [place] [address] * POCT urinalysis dipstick (06/30/2021 12:33 PM IT OPERATIONS SPECIALIST) Glucose, ur, POC Negative Negative mg/dL Ketones, ur, POC Negative Negative Blood, ur, POC Negative Negative Protein, ur, POC Negative Negative Nitrite, ur, POC Negative Negative Leukocytes, ur, POC Negative Negative Lot Number [id number] Urine 06/30/2021 12:3 3 PM IT OPERATIONS SPECIALIST us Se Veliz MD POINT OF CARE TEST ORDER CHILO Final Result documented in this encounter Visit Diagnoses Diagnosis Supervision of other normal , antepartum- Primary Maternal obesity affecting , antepartum Rh negative state in antepartum period Supervision of other normal , antepartum documented in this encounter Care Teams Oil Field Roustabout Relationship Specialty Start Date End Date Venecia Turner MD [address] [facility] [address] LEXIE Gramajo [facility] [address] [place] [address] PCP - General 12/11/19 07/21/21 Jarred Roy MD 2 [facility] [address] [place] [address] 01/30/19 Elma Echevarria NP [address] [facility] [address] LEXIE Gramajo [facility] [address] [place] [address] Nurse Practitioner General Surgery 12/16/19 documented as of this encounter
--- OUTSIDE RECORDS SUMMARY | 2024-05-10 20:17 | XMS_ITS | Encounter Summary ---
Author Organization [facility] Healthcare Address [address] [place] [address] Care Team Providers Care Human Resources Operations Director Name Role Phone Jarred Roy MD Unavailable [phone] Venecia Turner MD Primary Care Provider [phone] Elma Echevarria NP Unavailable Reason for Referral * (Routine) - Closed Specialty Diagnoses / Procedures Referred By Contac t Referred To Contact Diagnoses Supervision of other normal , antepartum Procedures Labor Induction - Se Veliz MD Phone: tel: fax: [address] [phone] Referral ID Status Reason Start Date Expiration Date Visits Re quested Visits Authorized [id number] Closed 06/23/2021 07/23/2022 1 1 ID POWERTRAIN DEVELOPMENT ENGINEER Encounter Details Date Type Department Care Team (Late st Contact Info) Description 06/23/2021 3:30 PM HYBRID POWERTRAIN DEVELOPMENT ENGINEER Office Visit Obstetrics and Gynecology Clinic [address] [facility] 3rd Floor [address] [place] [address] Harika Abrams MD [address] [facility] [phone] [place] [address] Se Veliz MD [address] [address] Supervision of other normal , antepartum (Primary Dx); Maternal obesity affecting , antepartum; Rh negative state in antepartum period; Elevated blood pressure affecting , antepartum; Family history of neural tube defect Discharge [...] on file Legal Sex Female 11:28 PM HYBRID POWERTRAIN DEVELOPMENT ENGINEER Gender Identity Not on file Sexual Orientation Not on file documented as of this encounter Last Filed Vital Signs Vital Sign Reading Time Taken Comments Blood Pressure 113/79 06/23/2021 3:40 PM HYBRID POWERTRAIN DEVELOPMENT ENGINEER Pulse 84 06/23/2021 3:40 PM HYBRID POWERTRAIN DEVELOPMENT ENGINEER Temperature 36.7 ??C (98 ??F) 06/23/2021 3:40 PM HYBRID POWERTRAIN DEVELOPMENT ENGINEER Respiratory Rate - - Oxygen Saturation 98% 06/23/2021 3:40 PM HYBRID POWERTRAIN DEVELOPMENT ENGINEER Inhaled Oxygen Concentration - - Weight 132.1 kg (291 lb 3.2 oz) 06/23/2021 3:40 PM HYBRID POWERTRAIN DEVELOPMENT ENGINEER Height - - Body Mass Index 48.46 06/22/2021 12:59 PM HYBRID POWERTRAIN DEVELOPMENT ENGINEER documented in this encounter Patient Instructions * Patient Instructions* Se Veliz MD - 06/23/2021 3:30 PM HYBRID POWERTRAIN DEVELOPMENT ENGINEER Contact us Office hours: Monday-Monday 8:30 AM-4:30 PM Phone number: [phone] Daytime: Call us if you have questions [...] medical problem, you can call us at [phone]. Please wait until the clinic is open for non-urgent needs as this emergency line cannot help with appointments, paperwork or prescriptions. If you have an emergency and cannot wait, please call 911 or go to the [facility] Emergency room. If you are having a problem with your or are in labor you can go to the [facility] (check in near elevator on first floor) 1 [facility], 5th [place] [address]. ID POWERTRAIN DEVELOPMENT ENGINEER documented in this encounter Discharge Disposition Disposition Code Departure Means Destination Discharge to home or self care documented in this encounter Progress Notes * Se Veliz MD - 06/23/2021 3:30 PM CST OB RETURN VISIT 06/23/2021 Subjective: Mary Licona is a 21 y.o. at 35w2d who presents for her [facility]. [facility] improved with rest and APAP. Still not wearing support belt. movement: Y VB?: N LOF?: N Ctxns? N Objective: Vitals: 06/23/21 1540 BP: 113/79 BP Location: Right arm Patient Position: Sitting Pulse: 84 Temp: 36.7 ??C (98 ??F) TempSrc: Oral SpO2: 98% Weight: 291 lb 3.2 oz (132.1 kg) Gen: No acute distress. Abdomen: Soft, nontender, gravid. Extremities: Warm, well perfused. No lower extremity edema/erythema/tenderness. FHT: + by formal US Growth and presentation US 06/23/21: AGA at 40%, VTX Assessment/Plan: 21 y.o. at 35w2d. Problem List Gravid and Elevated blood pressure affecting , antepartum Overview - BP 143/81 on arrival at EOB, 119/80 on recheck - PreE labs wnl 05/17/21, UPC wnl - All BP subsequently normal at EOB appts Plan: [] CTM BP closely Maternal obesity affecting , antepartum - Primary Overview - BMI 38 - A1c 03/2020 4.6 - GTT 91 Plan: [] 3T growth and check presentation Rh negative state in antepartum period Overview [...] [x] CBC/HIV/RPR/T&S wnl 05/17/21 [] GBS @36w [x] GC/CT (if indicated) neg Counseling [x] Method of delivery: Ant vaginal [x] Method of contraception: Considering LARC s/p extensive counseling [x] Method of feeding: Plans breast [] Customer Complaint Clerk: [] Car seat: [] PP Depression Counseling [x] Attg visits (09/08) Relevant Orders POCT urinalysis dipstick (Completed) Neuro [...] delivery and prior to subsequent pregnancies RTC 1 week for EOB + GBS Patient seen and discussed with Dr. Butetrfield. eS Veliz MD PGY-4 (BANK TELLER MACHINE MECHANIC) [phone] Cosigned by Ileana Butterfield MD at 06/28/2021 12:29 AM HYBRID POWERTRAIN DEVELOPMENT ENGINEER ID POWERTRAIN DEVELOPMENT ENGINEER ID POWERTRAIN DEVELOPMENT ENGINEER Associated attestation - Ileana Butterfield MD - 06/28/2021 12:29 AM HYBRID POWERTRAIN DEVELOPMENT ENGINEER I have seen and examined the patient. I agree with the findings and plan of care as documented in the resident/fellow's note. Ileana Butterfield MD documented in this encounter Plan of Treatment Scheduled Orders Name Type Priority Associated Diagnoses Orde r Schedule Labor Induction - OB Routine Supervision of other normal , antepartum Expected: 07/19/2021, Expires: 07/24/2021 documented as of this encounter Procedures Procedure Name Priority Date/Time Associated Diagnosis Comments POCT URINALYSIS DIPSTICK Routine 06/23/2021 3:44 PM HYBRID POWERTRAIN DEVELOPMENT ENGINEER Supervision of other normal , antepartum documented in this encounter Results * POCT urinalysis dipstick (06/23/2021 3:44 PM HYBRID POWERTRAIN DEVELOPMENT ENGINEER) Glucose, ur, POC Negative Negative mg/dL Ketones, ur, POC Negative Negative Blood, ur, POC Negative Negative Protein, ur, POC Negative Negative Nitrite, ur, POC Negative Negative Leukocytes, ur, POC Negative Negative Lot Number [id number] Urine 06/23/2021 3:44 PM HYBRID POWERTRAIN DEVELOPMENT ENGINEER us Se Veliz MD POINT OF CARE TEST ORDER CHILO Final Result documented in this encounter Visit Diagnoses Diagnosis Supervision of other normal , antepartum- Primary Maternal obesity affecting , antepartum Rh negative state in antepartum period Elevated blood pressure affecting , antepartum Family history of neural tube defect documented in this encounter Care Teams Human Resources Operations Director Relationship Specialty Start Date End Date Venecia Turner MD [address] [facility] [address] LEXIE Gramajo [facility] [address] [place] [address] PCP - General 12/11/19 07/21/21 Jarred Roy MD 2 [facility] [address] [place] [address] 01/30/19 Elma Echevarria NP [address] [facility] [address] LEXIE Gramajo [facility] [address] [place] [address] Nurse Practitioner General Surgery 12/16/19 documented as of this encounter
--- OUTSIDE RECORDS SUMMARY | 2024-05-10 20:17 | XMS_ITS | Encounter Summary ---
Author Organization [facility] Healthcare Address [address] [place] [address] Care Team Providers Care V Belt Mold Assembler And Curer Name Role Phone Jarred Roy MD Unavailable [phone] Venecia Turner MD Primary Care Provider [phone] EyeElma charles NP Unavailable Encounter Details Date Type Department Care Team (Late st Contact Info) Description 04/19/2021 3:45 PM FOOD SERVICE Lab [facility] [address] [place] [address] [place] [address] , unspecified gestational age; Supervision of other normal , antepartum Social History Tobacco Use Types Packs/Day Years Used Date Smoking Tobacco: Never Smokeless Tobacco: Never Alcohol Use Standard Drinks/Week Comments No 0 (1 standard drink = 0.6 oz pur e alcohol) Comments Yes Sex and Gender Information Value Date Recorded Sex Assigned at Not on file Legal Sex Female 11:28 PM FOOD SERVICE Gender Identity Not on file Sexual Orientation Not on file documented as of this encounter Plan of Treatment Not on file documented as of this encounter Procedures Procedure Name Priority Date/Time Associated Diagnosis Comments GTT 50GM 1HR GESTATIONAL SCREEN Routine 04/19/2021 3:42 PM FOOD SERVICE , unspecified gestational age Supervision of other normal , antepartum RPR Routine 04/19/2021 3:42 PM FOOD SERVICE , unspecified gestational age Supervision of other normal , antepartum CBC WITHOUT DIFFERENTIAL Routine 04/19/2021 3:42 PM FOOD SERVICE , unspecified gestational age Supervision of other normal , antepartum documented in this encounter Results * (ABNORMAL) CBC without differential (04/19/2021 3:42 PM FOOD SERVICE) [facility] WBC 7.2 3.8 - 9.9 K/cumm [facility] Hgb 11.7(L) 11.9 - 15.5 g/dL [facility] Hct 34.8(L) 35.6 - 45.5 % [facility] Plt 236 150 - 400 K/cumm [facility] MPV 10.0 9.1 - 12.3 fL [facility] RBC 3.72(L) 3.90 - 5.20 M/cumm [facility] MCV 93.5 81.3 - 96.4 fL [facility] MCH 31.5 27.1 - 33.3 pg [facility] MCHC 33.6 32.3 - 35.7 g/dL [facility] RDW CV 13.2 11.1 - 14.9 % [facility] RDW SD 44.7 35.7 - 48.1 fL [facility] NRBC abs 0.00 0.00 - 0.01 K/cumm [facility] Blood 04/19/2021 3:42 PM FOOD SERVICE 04/19/2021 4:33 PM FOOD SERVICE us Se Veliz MD LAB BLOOD ORDERABLES Fin al Result [facility] Department [place] [address] * Glucose tolerance testing 50 gram gestational screen (04/19/2021 3:42 PM FOOD SERVICE) Pathologist [facility] GTT 50g gest screen 91 <=140 mg/dL [facility] Comment: Interpretive Data Used for suspected gestational [...] data was last revised on 2020. Blood 04/19/2021 3:42 PM FOOD SERVICE 04/19/2021 4:33 PM FOOD SERVICE Se Veliz MD LAB BLOOD ORDERABLES Fin al Result [facility] [place] [address] * RPR (04/19/2021 3:42 PM FOOD SERVICE) RPR Nonreactive Nonreactive [facility] Blood 04/19/2021 3:42 PM FOOD SERVICE 04/19/2021 4:33 PM FOOD SERVICE Se Veliz MD LAB MICROBIOLOGY - GENER AL ORDERABLES Final Result Performing Organization Address City/[facility] Co de Phone Number [facility] [place] [address] documented in this encounter Visit Diagnoses Diagnosis , unspecified gestational age Supervision of other normal , antepartum documented in this encounter Care Teams V Belt Mold Assembler And Curer Relationship Specialty Start Date End Date Venecia Turner MD [address] [place] [address] DR LEXIE Gramajo [facility] [address] [place] [address] PCP - General 12/11/19 07/21/21 Jarred Roy MD 2 [facility] [address] [place] [address] 01/30/19 Elma Echevarria NP 4 [facility] [address] LEXIE Gramajo [facility] [address] [place] [address] Nurse Practitioner General Surgery 12/16/19 documented as of this encounter
--- OUTSIDE RECORDS SUMMARY | 2024-05-10 20:17 | XMS_ITS | Encounter Summary ---
Author Organization [facility] Healthcare Address [address] [place] [address] Care Team Providers Care Warehouse Associate Driver Name Role Phone Jarred Roy MD Unavailable [phone] Venecia Turner MD Primary Care Provider [phone] Elma Echevarria NP Unavailable Reason for Visit * Reason Comments Routine Visit Encounter Details Date Type Department Care Team (Late st Contact Info) Description 03/26/2021 12:30 PM LICENSED INVESTMENT SALES ASSISTANT Office Visit Obstetrics and Gynecology Clinic [address] [facility] 3rd Floor [address] [place] [address] Harika Abrams MD [address] [facility] [phone] [place] [address] Maverick Stallworth MD PhD [address] [facility] [address] [place] [address] Linnette Garcia MD [address] [facility] [address] [place], [place] [id number] , unspecified gestational age (Primary Dx); Rh negative state in antepartum period; Supervision of other normal , antepartum; Maternal [...] on file Legal Sex Female 11:28 PM LICENSED INVESTMENT SALES ASSISTANT Gender Identity Not on file Sexual Orientation Not on file documented as of this encounter Last Filed Vital Signs Vital Sign Reading Time Taken Comments Blood Pressure 130/66 03/26/2021 1:33 PM LICENSED INVESTMENT SALES ASSISTANT Pulse 77 03/26/2021 1:33 PM LICENSED INVESTMENT SALES ASSISTANT Temperature 36.1 ??C (96.9 ??F) 03/26/2021 1:33 PM CS T Respiratory Rate - - Oxygen Saturation 100% 03/26/2021 1:33 PM LICENSED INVESTMENT SALES ASSISTANT Inhaled Oxygen Concentration - - Weight 124.5 kg (274 lb 6.4 oz) 03/26/2021 1:33 PM LICENSED INVESTMENT SALES ASSISTANT Height - - Body Mass Index 45.66 02/21/2021 9:15 PM CDT documented in this encounter Patient Instructions * Patient Instructions* Maverick Stallworth MD PhD - 03/26/2021 12:30 PM LICENSED INVESTMENT SALES ASSISTANT Contact us Office hours: Monday-Monday 8:30 AM-4:30 PM Phone number: [phone] Daytime: Call us if you have questions [...] medical problem, you can call us at [phone]. Please wait until the clinic is open for non-urgent needs as this emergency line cannot help with appointments, paperwork or prescriptions. If you have an emergency and cannot wait, please call 911 or go to the [facility] Emergency room. If you are having a problem with your or are in labor you can go to the [facility] (check in near elevator on first floor) [address] [facility], 5th [place] [address]. NSED INVESTMENT SALES ASSISTANT documented in this encounter Discharge Disposition Disposition Code Departure Means Destination Discharge to home or self care documented in this encounter Progress Notes * Maverick Stallworth MD PhD - 03/26/2021 12:30 PM CST OB RETURN VISIT 03/26/2021 Subjective: Mary Licona is a 21 y.o. at 22w4d who presents for her return OB visit. She has no complaints today. Had anatomy US, excited to be having a girl. movement: Yes Vaginal Bleeding: No LOF: No Contractions/cramping: none Objective: Vitals: 03/26/21 1333 BP: 130/66 Pulse: 77 Temp: 36.1 ??C (96.9 ??F) TempSrc: Temporal SpO2: 100% Weight: 274 lb 6.4 oz (124.5 kg) FHR: Confirmed on US today Gen: No acute distress. Abdomen: Soft, nontender, gravid. Fundal Height: AGA on US today Extremities: Warm, well perfused. No lower extremity edema/erythema/tenderness Urine: Lab Results Component Value Date GLUCOSEUR Negative 03/26/2021 KETONESU Negative 03/26/2021 PROTUR Negative 03/26/2021 Assessment/Plan: 21 y.o. at 22w4d. Problem List Gravid and Maternal obesity affecting , antepartum Overview - BMI 38 - A1c 03/2020 4.6 Plan: [] Routine 28w GTT Supervision of other normal , antepartum Overview [...] girl, anterior placenta [x] Placenta Location: Anterior [] CBC [] 1hr gtt at 24-28wks: To complete at 26 week visit [] Flu Shot (Feb-Apr) [] Tdap (27-36wks) [] Rhogam (if Rh neg): indicated at 28w Third Trimester: [] CBC/HIV/RPR/T&S [] GBS [] GC/CT (if indicated) Counseling [] Method of delivery: [] Method of contraception: [] Method of feeding: [] Marketing Database Consultant: [] Car seat: [] PP Depression Counseling [] Attg visits (06/11) Rh negative state in antepartum period Overview For 28w Rhogam RTC 4 weeks Seen and discussed with Dr. Porter. Maverick Stallworth MD PhD 03/26/21, 2:03 PM Cosigned by Saskia Porter MD at 03/26/2021 2:11 PM LICENSED INVESTMENT SALES ASSISTANT NSED INVESTMENT SALES ASSISTANT NSED INVESTMENT SALES ASSISTANT Associated attestation - Saskia Porter MD - 03/26/2021 2:11 PM LICENSED INVESTMENT SALES ASSISTANT I have seen and examined the patient. I agree with the findings and plan of care as documented in the resident/fellow's note. documented in this encounter Plan of Treatment Not on file documented as of this encounter Procedures Procedure Name Priority Date/Time Associated Diagnosis Comments POCT URINALYSIS DIPSTICK Routine 03/26/2021 1:36 PM LICENSED INVESTMENT SALES ASSISTANT , unspecified gestational age documented in this encounter Results * POCT urinalysis dipstick (03/26/2021 1:36 PM LICENSED INVESTMENT SALES ASSISTANT) Glucose, ur, POC Negative Negative mg/dL Bilirubin, ur, POC Negative Negative, Small, Moderate, Large Ketones, ur, POC Negative Negative Blood, ur, POC Negative Negative Protein, ur, POC Negative Negative Nitrite, ur, POC Negative Negative Leukocytes, ur, POC Negative Negative Lot Number [id number] Urine 03/26/2021 1:36 PM LICENSED INVESTMENT SALES ASSISTANT us Maverick Stallworth MD PhD POINT OF CARE TEST ORDERABLES Final Result documented in this encounter Visit Diagnoses Diagnosis , unspecified gestational age- Primary Rh negative state in antepartum period Supervision of other normal , antepartum Maternal obesity affecting , antepartum documented in this encounter Care Teams Warehouse Associate Driver Relationship Specialty Start Date End Date Venecia Turner MD 4 [facility] [address] LEXIE Gramajo [facility] [address] [place] [address] PCP - General 12/11/19 07/21/21 Jarred Roy MD 2 [facility] [address] [place] [address] 01/30/19 Elma Echevarria NP [address] [facility] [address] LEXIE Gramajo [facility] [address] [place] [address] Nurse Practitioner General Surgery 12/16/19 documented as of this encounter
--- OUTSIDE RECORDS SUMMARY | 2024-05-10 20:17 | XMS_ITS | Encounter Summary ---
Author Organization [facility] Healthcare Address [address] [place] [address] Care Team Providers Care Basket Weaver Name Role Phone Jarred Roy MD Unavailable [phone] Venecia Turner MD Primary Care Provider [phone] Elma Echevarria NP Unavailable Reason for Referral * Diagnostic Imaging (Routine) - Closed Specialty Diagnoses / Procedures Referred By Contac t Referred To Contact Diagnoses Family history of neural tube defect Procedures US Ob Detail Anatomy Single Or First Gestation Se Veliz MD Phone: tel: fax: [facility] (All Locations) Referral ID Status Reason Start Date Expiration Date Visits Re quested Visits Authorized [id number] Closed 02/09/2021 03/11/2022 1 1 OR BI ARCHITECT Reason for Visit * Diagnostic Imaging (Routine) - Closed Specialty Diagnoses / Procedures Referred By Contac t Referred To Contact Diagnoses Family history of neural tube defect Procedures US Ob Detail Anatomy Single Or First Gestation Se Veliz MD Phone: tel: fax: [facility] (All Locations) Referral ID Status Reason Start Date Expiration Date Visits Re quested Visits Authorized [id number] Closed 02/09/2021 03/11/2022 1 1 Encounter Details Date Type Department Care Team (Latest Contact Info) Description 03/26/2021 10:58 AM SENIOR BI ARCHITECT - 03/26/2021 11:59 PM SENIOR BI ARCHITECT Hospital Encounter [facility] - Ultrasound [address] [facility] [place] [address] Harika Abrams MD [address] [facility] [id number] [place], [place] [id number] Linnette Garcia MD [address] [facility] Floor [address] [place], [place] [id number] Family history of neural tube defect Discharge [...] on file Legal Sex Female 11:28 PM SENIOR BI ARCHITECT Gender Identity Not on file Sexual [...] GESTATION Schedule Routine, Read Routine (OP Routine) 03/26/2021 10:58 AM SENIOR BI ARCHITECT Family history of neural tube defect documented in this encounter Results * US Ob Detail Anatomy Single Or First Gestation (03/26/2021 10:58 AM SENIOR BI ARCHITECT) Fetus# Fetus1 VIEWPOINT Placenta Details anterior, Previa-no, no placental masses VIEWPOINT Estimated Weight 518 g&grams VIEWPOINT Presentation Vertex VIEWPOINT Anatomical Region Laterality Modality Body N/A Ultrasound 03/26/2021 11:0 7 AM SENIOR BI ARCHITECT us Se Veliz MD IMG OB US PROCEDURES Fin al Result documented in this encounter Visit Diagnoses Diagnosis Family history of neural tube defect documented in this encounter Care Teams Basket Weaver Relationship Specialty Start Date End Date Venecia Turner MD [address] [place] [address] DR LEXIE Gramajo [facility] [address] [place] [address] PCP - General 12/11/19 07/21/21 Jarred Roy MD 2 [facility] [address] [place] [address] 01/30/19 Elma Echevarria NP [address] [place] [address] DR LEXIE Gramajo [facility] [address] [place] [address] Nurse Practitioner General Surgery 12/16/19 documented as of this encounter
--- OUTSIDE RECORDS SUMMARY | 2024-05-10 20:17 | XMS_ITS | Encounter Summary ---
Author Organization [facility] Healthcare Address [address] [place] [address] Care Team Providers Care Banquet Pilot Name Role Phone Jarred Ryo MD Unavailable [phone] Venecia Turner MD Primary Care Provider [phone] Elma Echevarria NP Unavailable Encounter Details Date Type Department Care Team (Late st Contact Info) Description 07/16/[address] [address] Carolyn Barrett RN Social History Tobacco Use Types Packs/Day [...] on file Legal Sex Female 11:28 PM GAS REGULATOR REPAIRER Gender Identity Not on file Sexual Orientation Not on file documented as of this encounter Miscellaneous Notes * Telephone Encounter - Carolyn Barrett - 07/16/2021 9:59 AM CST RN attempting to contact pt with pre procedure education. Phone does not ring , no answer. No vm. Will send in mychart for patient to review. REGULATOR REPAIRER documented in this encounter Plan of Treatment Not on file documented as of this encounter Visit Diagnoses Not on filedocumented in this encounter Care Teams Banquet Pilot Relationship Specialty Start Date End Date Venecia Turner MD [address] [facility] [address] LEXIE Gramajo [facility] [address] [place] [address] PCP - General 12/11/19 07/21/21 Jarred Roy MD 2 [facility] [address] [place] [address] 01/30/19 Elma Echevarria NP [address] [facility] [address] LEXIE Gramajo [facility] [address] [place] [address] Nurse Practitioner General Surgery 12/16/19 documented as of this encounter
--- OUTSIDE RECORDS SUMMARY | 2024-05-10 20:17 | XMS_ITS | Encounter Summary ---
Author Organization [facility] Healthcare Address [address] [place] [address] Care Team Providers Care Electoral Officer Name Role Phone Jarred Roy MD Unavailable [phone] Venecia Turner MD Primary Care Provider [phone] Elma Echevarria NP Unavailable Encounter Details Date Type Department Care Team (Late st Contact Info) Description 01/19/2021 Telephone Obstetrics and Gynecology Clinic [address] [facility] 3rd Floor [address] [place] [address] Faina Morales RN Social History Tobacco Use Types Packs/Day Years Used Date Smoking Tobacco: Never Smokeless Tobacco: Never Alcohol Use Standard Drinks/Week Comments No 0 (1 standard drink = 0.6 oz pur e alcohol) Comments Unknown Sex and Gender Information Value Date Recorded Sex Assigned at Not on file Legal Sex Female 11:28 PM RESIDENTIAL PROGRAM WORKER Gender Identity Not on file Sexual Orientation Not on file documented as of this encounter Miscellaneous Notes * Telephone Encounter - Faina Morales RN - 01/19/2021 2:27 PM CDT Call placed to pt, discussed medical history, pt states sister has spina bifida. lmp 10/19/20, pt states she believes she had lab work performed at OB appt. Call placed to [facility] to inquire labs drawn, awaiting call back. documented in this encounter Plan of Treatment Not on file documented as of this encounter Visit Diagnoses Not on filedocumented in this encounter Care Teams Electoral Officer Relationship Specialty Start Date End Date Venecia Turner MD [address] [facility] [address] LEXIE Gramajo [facility] [address] [place] [address] PCP - General 12/11/19 07/21/21 Jarred Roy MD 2 [facility] [address] [place] [address] 01/30/19 Elma Echevarria NP [address] [facility] [address] LEXIE Gramajo [facility] [address] [place] [address] Nurse Practitioner General Surgery 12/16/19 documented as of this encounter
--- OUTSIDE RECORDS SUMMARY | 2024-05-10 20:17 | XMS_ITS | Encounter Summary ---
Author Organization [facility] Healthcare Address [address] [place] [address] Care Team Providers Care Instrument Designer Name Role Phone Jarred Roy MD Unavailable [phone] Venecia Turner MD Primary Care Provider [phone] EyersElma NP Unavailable Encounter Details Date Type Department Care Team (Late st Contact Info) Description 07/19/2021 12:45 PM CDT Anesthesia Event [address] [address] Jayleen Corcoran MD [address] [place] [address] Wilton Feldman MD [address] [place] [address] Anesthesia Record Procedure Summary Procedure Name Responsible Anesthesiologist Anesthesia Start Time Anesthesia Stop Time Labor Analgesia Jayleen Corcoran MD 07/19/21 1245 07/20/21 0530 Events Date Time Event Comment 07/19/2021 1245 An Start 1247 Time out - Regional 1248 Face Time 1250 An Block Induction The patie nt was reevaluated immediately before moderate or deep sedation and before anesthesia induction. 1258 Epidural Placed 07/20/2021 0530 An Stop Baby Delivery: 07/20/2021 ??5:11 AM Placenta Delivery: 07/20/2021 ??5:16 AM Meds Name Total epinePHRINE 1:200,000-lidocaine 1.5 % 3 mL fentaNYL-bupivacaine preserv ative free in 0.9% sodium chloride 2 mcg/mL- 0.1 % cassette (premix) 173 mL * Agents No agents on file. * Blood No blood administrations on file. Lines, Drains, and Airways Type Details Placement Removal Peripheral IV Placement Date: 07/19/21; Placement Time: 0855; Catheter Size: 18 G; Orientation: Left, Posterior; Location: Hand; Site Prep: Chlorhexidine; Technique: Anatomical landmarks; Inserted by: Daija Rosado RN; Insertion Attempts: 2; Patient Tolerance: Tolerated well; Removal Date: 07/21/21; Removal Time: 0600; Removal Reason: Per protocol 07/19/21 0855 by Irvin Rosado RN 07/21/21 0600 by Annamaria Lyles OB Cervical Ripening Balloon Catheter 07/19/21; 1010; Cielo Katz MD; Non-latex; Above Cervix (80 ml steril water, uterine only; to tension); 07/19/21; 1450 07/19/21 1010 by Irvin Rosado RN 07/19/21 1450 by Silvano Peters RN Epidural Placement Date: 07/19/21; Placement Time: 1322 (created via procedure documentation); 07/20/21; 0730 07/19/21 1322 by Wilton Feldman MD 07/20/21 0730 by Rowan Zhu RN Urethral Catheter Placement Date: 07/19/21; Placement Time: 1350; Inserted by: Kim Peters RN; Type: Non-latex; Balloon Size: 10 mL; Urine Returned: Yes; Removal Date: 07/20/21; Removal Time: 0415; Removal Reason: Per protocol, Therapy complete 07/19/21 1350 by Silvano Peters RN 07/20/21 0415 by Ana Lilia Espinosa RN documented in this encounter Social History [...] a senior care (including now)? No 07/21/2021 Comments Yes Sex and Gender Information Value Date Recorded Sex Assigned at Not on file Legal Sex Female 11:28 PM SECURITY MANAGER Gender Identity Not on file Sexual Orientation Not on file documented as of this encounter OR Notes * Anesthesia Postprocedure Evaluation - Maverick Nelson MD - 07/21/2021 8:06 AM CDT Patient: Mary Licona Procedure Summary Date: 07/19/21 Room / Location: Anesthesia Start: 1245 Anesthesia Stop: 07/20/21529 Procedure: Labor Analgesia Diagnosis: Scheduled Providers: Responsible Provider: Jayleen Corcoran MD Anesthesia Type: epidural ASA Status: 3 Anesthesia Type: epidural Last vitals BP 117/63 Pulse 97 Temp 36.8 ??C (98.24 ??F) (Oral) Resp 18 SpO2 100% Anesthesia Post Evaluation Patient location during evaluation: floor Patient participation: complete - patient participated Level of consciousness: fully awake Pain score: 2 Pain management: adequate Airway patency: adequate and patent Cardiovascular status: acceptable and hemodynamically stable Respiratory status: acceptable and room air Hydration status: acceptable Pt is: normothermic Nausea/Vomiting [...] any of these. Patient voices understanding. No complications documented. Cosigned by Arleth Sen MD at 07/21/2021 8:09 AM CDT * Anesthesia Procedure Notes - Wilton Feldman MD - 07/19/2021 1:21 PM CDTAssociated Order(s): Epidural Block Epidural Block Patient location: L&D Reason for block: labor analgesia Staff: Supervising provider: Jayleen Corcoran MD Placed by: Resident: Wilton Feldman MD Procedure prep: Preprocedure checklist: patient identified, procedure contraindications assessed, procedure consentobtained, surgical consent, IV checked, risks, benefits and alternatives discussed, monitors and equipment checked and timeout performed Patient Position: sitting Procedure performed while patient: awake Monitoring: ECG, oximetry and blood pressure Prep solution: chlorhexadine/alcohol PPE: provider hat/mask, sterile gloves and sterile drape Skin infiltrated with lidocaine 1%: yes Epidural: Approach: midline Imaging guidance used: no Location: L4-5 Number of attempts:1 Epidural needle: Injection technique: [...] patient tolerated procedure well with no complications Additional comments: DPE, CSE confirmed * Anesthesia Preprocedure Evaluation - Jayleen Corcoran MD - 07/19/2021 9:48 AM CDT Images from the original note were not included. Anesthesia Evaluation Mary Licona is a 21 y.o. female * No procedures listed * * No Diagnosis Codes entered * HISTORY HPI Mary Licona is a 21 y.o. female at 39w0d gestation here for IOL Past Medical History Neurological Neuro/Psych system: negative Cardiovascular Cardiac system: negative Respiratory Pertinent negatives: asthma Hepatic / Heme + History of anemia Gastrointestinal Pertinent negatives: GERD Renal / Renal/ system: negative Musculoskeletal/Pain + Headaches - migraine headaches. Endocrine / Other + Obesity (BMI >30)- morbid obesity (BMI>40). Pertinent negatives: diabetes mellitus and thyroid disease Day of Surgery assessments + Possibility of assessed - known to be . Review of Systems Pertinent negatives: productive cough; SOB; recent cold/flu; fever; easy bruising; bleeding problems; numbness/tingling; heartburn and nausea PAT Summary and Plans Anesthesia plan discussed: spinal / epidural anesthesia and general anesthesia. Additional comments: Discussed risks, benefits, alternatives to neuraxial anesthesia, including but not limited to PDPH,risk of prolonged or permanent numbness/weakness/paralysis, nausea, aspiration, bleeding, infection, possible need to convert to GETA. Pt voiced understanding and acceptance of risks and a desire to proceed with labor neuraxial anesthesia. . Patient Active Problem List Diagnosis ??? Closed nondisplaced fracture of medial cuneiform of right foot ??? Obesity ? Rh negative state in antepartum period ??? Family history of neural tube defect ??? Elevated blood pressure affecting , antepartum ??? Acute sinusitis ??? Astigmatism ??? Xdgy-je-uenm spots ??? Chronic daily headache ??? Facial swelling ??? Iron deficiency ??? Loss of hair ??? Migraine ??? Urinary tract infectious disease ??? Vitamin D deficiency ??? Encounter for induction of labor Past Medical History: Diagnosis Date ??? Closed nondisplaced fracture of medial cuneiform of right foot 06/03/2019 ??? HX OTHER MEDICAL T&A in 2011; Comments: MIRANDA 05/20/2014 - ??? HX OTHER MEDICAL elbow fracture 02-06-15.; Comments: MIRANDA 02/09/2015 - Past Surgical History: Procedure Laterality Date ??? TONSILLECTOMY/ADENOIDECTOMY Bilateral OB History 1 Para Term AB Living SAB IAB Ectopic Multiple Live Births No Known Allergies Med List Status: Nurse Complete Set By: Irvin Rosado RN at 07/19/2021 9:11 AM Taking? Last Dose Start Date End Date Provider albuterol HFA (PROVENTIL HFA,VENTOLIN HFA,PROAIR HFA) 90 mcg/actuation inhaler -- -- Provider, MD Kodi fluticasone propionate (FLONASE) 50 mcg/actuation nasal spray -- -- Provider, MD Kodi folic acid (FOLVITE) 1 mg tablet 02/09/21 02/09/22 Se Veliz MD Take 1 tablet (1 mg total) by mouth daily [id number] fumarate-FA () 28-800 mg-mcg tablet -- -- ProviderKodi MD Current Facility-Administered Medications: ??? acetaminophen (TYLENOL) tablet 650 mg, 650 mg, oral, Q4H PRN ??? albuterol HFA (PROVENTIL HFA,VENTOLIN HFA,PROAIR HFA) 90 mcg/actuation inhaler 2 puff, 2 puff, inhalation, Q4H PRN (RT) ??? carboprost (HEMABATE) injection 250 mcg, 250 mcg, intramuscular, Once PRN ??? dextrose 5% and Lactated Ringer's infusion, 125 mL/hr, intravenous, Continuous ??? Lactated Ringer's (LR) bolus 1,000 mL, 1,000 mL, intravenous, Once PRN ??? Lactated Ringer's (LR) bolus 1,000 mL, 1,000 mL, intravenous, TID PRN ??? levonorgestreL (MIRENA) 20 mcg/24 hours (7 yrs) 52 mg IUD, , intrauterine, Continuous ??? lidocaine PF (XYLOCAINE) 10 mg/mL (1 %) preservative free injection 100 mg, 10 mL, infiltration, Once PRN ??? loperamide (IMODIUM) capsule 2 mg, 2 mg, oral, Once PRN ??? methylergonovine (METHERGINE) injection 0.2 mg, 0.2 mg, intramuscular, Once PRN ??? miSOPROStol (CYTOTEC) split tablet 25 mcg, 25 mcg, vaginal, Once ??? miSOPROStoL (CYTOTEC) tablet 800 mcg, 800 mcg, rectal, Once PRN ??? ondansetron ODT (ZOFRAN-ODT) disintegrating tablet 4 mg, 4 mg, oral, Q6H PRN OR ondansetron(ZOFRAN) injection 4 mg, 4 mg, intravenous, Q6H PRN ??? oxytocin (PITOCIN) injection 10 Units, 10 Units, intramuscular, Once PRN ??? penicillin G potassium 5 million units/50 mL in sterile water (premix) 5 Million Units, 5 Million Units, intravenous, Once FOLLOWED BY penicillin G potassium 3 million units/50 mL in dextrose(premix) 3 Million Units, 3 Million Units, intravenous, Q4H ??? sodium chloride 0.9% flush 0.5-20 mL, 0.5-20 mL, intra-catheter, Q8H GRANT ??? sodium chloride 0.9% flush 0.5-20 mL, 0.5-20 mL, intra-catheter, PRN ??? terbutaline (BRETHINE) injection 0.125 mg, 0.125 mg, intravenous, Once PRN OR terbutaline (BRETHINE) injection 0.25 mg, 0.25 mg, subcutaneous, Once PRN ??? tranexamic acid (CYKLOKAPRON) 1,000 mg/100 mL (10 mg/mL) in sodium chloride (premix) 1,000 mg, 1,000 mg, intravenous, Once PRN Social History Tobacco Use Smoking Status Never Smoker Smokeless Tobacco Never Used Substance and Sexual Activity Alcohol Use No Substance and Sexual Activity Drug Use Never Family History Problem Relation Age of Onset ??? Hypertension Father Hypertension; ??? Other Mother Alive and well at age 44.; PAT Physical Exam Airway Exam: Cervical ROM: FROM TM distance: >4 Cardiovascular Exam: Rate: regular Rhythm: regular Pulmonary Exam: LCTA Dental Exam: Appears intact Skin Exam: Skin is warm. Current state: Patient's current state is cooperative. There were no vitals filed for this visit. PT: No results found for requested labs within last 720 hours. INR: No results found for requested labs within last 720 hours. APTT: No results found for requested labs within last 720 hours. Hgb A1C: No results found for requested labs within last 720 hours. CBC RBC: 07/19/2021: 3.79 M/cumm (L) RDW: No results found for requested labs within last 720 hours. MCHC: 07/19/2021: 33.1 g/dL MCH: 07/19/2021: 30.1 pg MCV: 07/19/2021: 90.8 fL Hct: 07/19/2021: 34.4 % (L) Hgb: 07/19/2021: 11.4 g/dL (L) WBC: 07/19/2021: 8.6 K/cumm MPV: 07/19/2021: 10.1 fL Platelets: 07/19/2021: 239 K/cumm RDW CV: 07/19/2021: 13.4 % RDW Sd: 07/19/2021: 44.0 fL BMP Glucose: 07/19/2021: 80 mg/dL Calcium: 07/19/2021: 9.2 mg/dL Sodium: 07/19/2021: 139 mmol/L Potassium: 07/19/2021: 4.0 mmol/L CO2: 07/19/2021: 25 mmol/L Chloride: 07/19/2021: 105 mmol/L BUN: 07/19/2021: 5 mg/dL (L) Creatinine: 07/19/2021: 0.47 mg/dL (L) DOS Physical Exam Medical history, medications, and allergies reviewed. Attestation: This PAT evaluation 07/19/2021. Airway Exam: Mallampati: III Cervical ROM: FROM TM distance: >4 Cardiovascular Exam: Rate: regular Rhythm: regular Pulmonary Exam: LCTA, bilat EENT Exam: trachea midline Dental Exam: Appears intact Anesthesia Plan ASA 3 Planned anesthesia: Epidural Postoperative Plan: Patient's planned disposition post procedure is Floor. Informed Consent: Anesthesia plan and risks discussed with patient. Plan and Consent Comments: Discussed risks, benefits, alternatives to neuraxial anesthesia, including but not limited to PDPH,risk of prolonged or permanent numbness/weakness/paralysis, nausea, aspiration, bleeding, infection, possible need to convert to GETA. Pt voiced understanding and acceptance of risks [...] and agree to proceed. All questions answered. documented in this encounter Plan of Treatment Not on file documented as of this encounter Procedures Procedure Name Priority Date/Time Associated Diagnosis Comments ANESTHESIA EPIDURAL BLOCK Routine 07/19/2021 1:21 PM CDT documented in this encounter Results * Epidural Block (07/19/2021 1:21 PM CDT) Narrative Wilton Feldman MD - 07/19/2021 1:21 PM CDT Wilton Feldman MD ? 07/19/2021 ??1:28 PM Epidural Block Patient location: L&D Reason for block: labor analgesia Staff: Supervising provider: Jayleen Corcoran MD Placed by: Resident: Wilton Feldman MD Procedure prep: Preprocedure checklist: patient identified, procedure contraindications assessed, procedure consent obtained, surgical consent, IV checked, risks, benefits and alternatives discussed, monitors and equipment checked and timeout performed Patient Position: sitting Procedure performed while patient: awake Monitoring: ECG, oximetry and blood pressure Prep solution: chlorhexadine/alcohol PPE: provider hat/mask, sterile gloves and sterile drape Skin infiltrated with lidocaine 1%: yes Epidural: Approach: midline Imaging guidance used: no Location: L4-5 Number of attempts:1 Epidural needle: Injection technique: [...] patient tolerated procedure well with no complications Additional comments: DPE, CSE confirmed Wilton Feldman MD ANESTHESIA ORDERABLES Edited Result - Final documented in this encounter Visit Diagnoses Not on filedocumented in this encounter Administered Medications Inactive Administered Medications - up to 3 most recent administrations Medication Order MAR Action Action Date Dose Rate Site fentaNYL-bupivacaine preservative free in 0.9% sodium chloride 2 mcg/mL- 0.1 % cassette (premix) Continuous Rate: 10 mL/hr, Patient Bolus Dose: 8 mL / 6, Lockout Interval: 15 Minutes, epidural, Continuous, Starting on Mon07/19/21 at 1300, Until Mon07/21/21 at 1925, 100 mL, Indications: Pain, Stop epidural infusion after placental delivery and any indicated repair is complete., RoutineIndications:Pain New Syringe/Cartridge 07/20/2021 2:22 AM CDT 100 mL New Syringe/Cartridge 07/19/2021 7:38 PM CDT 100 mL New Bag 07/19/2021 1:12 PM CDT 10 mL/hr 10 mL/hr lidocaine-EPINEPHrine (XYLOCAINE with EPI) 1.5 %-1:200,000 preservative free injection epidural, As needed, Starting on Mon07/19/21 at 1258, Anesthesia Intra-op, Indications: Administration of Local AnesthesiaIndications:Administration of Local Anesthesia Given 07/19/2021 12:58 PM CDT 3 mL documented in this encounter Care Teams Instrument Designer Relationship Specialty Start Date End Date Venecia Turner MD [address] [facility] [address] LEXIE Gramajo [facility] [address] [place] [address] PCP - General 12/11/19 07/21/21 Jarred Roy MD 2 [facility] [address] [place] [address] 01/30/19 Elma Echevarria NP [address] [facility] [address] LEXIE Gramajo [facility] [address] [place] [address] Nurse Practitioner General Surgery 12/16/19 documented as of this encounter
--- OUTSIDE RECORDS SUMMARY | 2024-05-10 20:17 | XMS_ITS | Encounter Summary ---
Author Organization [facility] Healthcare Address [address] [place] [address] Care Team Providers Care Semiconductor Packages Sealer Name Role Phone Jarred Roy MD Unavailable [phone] Venecia Turner MD Primary Care Provider [phone] Elma Echevarria NP Unavailable Reason for Visit * Reason Comments Routine Visit Encounter Details Date Type Department Care Team (Late st Contact Info) Description 06/02/2021 2:30 PM INSPECTOR MECHANICAL Office Visit Obstetrics and Gynecology Clinic [address] [facility] [address] Floor [address] [place] [address] Harika Abrams MD [address] [facility] [phone] [place] [address] Se Veliz MD [address] [address] Supervision of other normal , antepartum (Primary Dx); Maternal obesity affecting , antepartum; Rh negative state in antepartum period; Elevated blood pressure affecting , antepartum Discharge Disposition: Discharge to home or self care Social History Tobacco Use Types Packs/Day Years Used Date Smoking Tobacco: Never Smokeless Tobacco: Never Alcohol Use Standard Drinks/Week Comments No 0 (1 standard drink = 0.6 oz pur e alcohol) Comments Yes Sex and Gender Information Value Date Recorded Sex Assigned at Not on file Legal Sex Female 11:28 PM INSPECTOR MECHANICAL Gender Identity Not on file Sexual Orientation Not on file documented as of this encounter Last Filed Vital Signs Vital Sign Reading Time Taken Comments Blood Pressure 123/61 06/02/2021 2:52 PM INSPECTOR MECHANICAL Pulse 86 06/02/2021 2:52 PM INSPECTOR MECHANICAL Temperature 36.6 ??C (97.9 ??F) 06/02/2021 2:52 PM CS T Respiratory Rate - - Oxygen Saturation 98% 06/02/2021 2:52 PM INSPECTOR MECHANICAL Inhaled Oxygen Concentration - - Weight 130.8 kg (288 lb 6.4 oz) 06/02/2021 2:52 PM INSPECTOR MECHANICAL Height - - Body Mass Index 47.99 05/17/2021 1:45 PM INSPECTOR MECHANICAL documented in this encounter Patient Instructions * Patient Instructions* Se Veliz MD - 06/02/2021 2:30 PM INSPECTOR MECHANICAL Contact us Office hours: Monday-Monday 8:30 AM-4:30 PM Phone number: [phone] Daytime: Call us if you have questions [...] medical problem, you can call us at [phone]. Please wait until the clinic is open for non-urgent needs as this emergency line cannot help with appointments, paperwork or prescriptions. If you have an emergency and cannot wait, please call 911 or go to the [facility] Emergency room. If you are having a problem with your or are in labor you can [facility] (check in near elevator on first floor) [address] [facility], [address]th [place] [address]. ECTOR MECHANICAL documented in this encounter Discharge Disposition Disposition Code Departure Means Destination Discharge to home or self care documented in this encounter Progress Notes * Se Veliz MD - 06/02/2021 2:30 PM CST OB RETURN VISIT 06/02/2021 Subjective: Mary Licona is a 21 y.o. at 32w2d who presents for her return OB visit. She is getting frustrated with normal discomforts and is anticipating delivery. movement: Y VB?: N LOF?: N Ctxns? N Objective: Vitals: 06/02/21 1452 BP: 123/61 BP Location: Right arm Patient Position: Sitting Pulse: 86 Temp: 36.6 ??C (97.9 ??F) TempSrc: Temporal SpO2: 98% Weight: 288 lb 6.4 oz (130.8 kg) Gen: No acute distress. Abdomen: Soft, nontender, gravid. Extremities: Warm, well perfused. No lower extremity edema/erythema/tenderness. FHT: +120s FH: 32 Assessment/Plan: 21 y.o. at 32w2d. Problem List Gravid and Elevated blood pressure affecting , antepartum Overview - BP 143/81 on arrival, 119/80 on recheck - Will send preE labs 05/17/21 Plan: [] CTM BP closely Maternal obesity affecting , antepartum Overview - BMI 38 - A1c 03/2020 4.6 - GTT 91 Plan: [] Routine PNC Rh negative state in antepartum period Overview [...] Trimester: [x] CBC/HIV/RPR/T&S wnl 05/17/21 [] GBS [] GC/CT (if indicated) (ordered) Counseling [x] Method of delivery: Ant vaginal [x] Method of contraception: Considering LARC s/p extensive counseling [x] Method of feeding: Plans breast [] Senior Bi Developer: [] Car seat: [] PP Depression Counseling [x] Attg visits (08/09) Relevant Orders POCT urinalysis dipstick (Completed) N. gonorrhoeae/C. trachomatis Amplification Urine Trichomonas vaginalis PCR Urine RTC 2 weeks Patient seen and discussed with Dr. Butterfield. Se Veliz MD PGY-4 (VISUAL INSPECTOR) [phone] Cosigned by Ileana Butterfield MD at 06/09/2021 8:13 PM INSPECTOR MECHANICAL ECTOR MECHANICAL ECTOR MECHANICAL Associated attestation - Ileana Butterfield MD - 06/09/2021 8:13 PM INSPECTOR MECHANICAL I have seen and examined the patient. I agree with the findings and plan of care as documented in the resident/fellow's note. Ileana Butterfield MD documented in this encounter Plan of Treatment Not on file documented as of this encounter Procedures Procedure Name Priority Date/Time Associated Diagnosis Comments N. GONORRHOEAE/C. TRACHOMATIS AMPLIFICATION Routine 06/02/2021 3:47 PM INSPECTOR MECHANICAL Supervision of other normal , antepartum TRICHOMONAS VAGINALIS PCR Routine 06/02/2021 3:47 PM INSPECTOR MECHANICAL Supervision of other normal , antepartum POCT URINALYSIS DIPSTICK Routine 06/02/2021 2:56 PM INSPECTOR MECHANICAL Supervision of other normal , antepartum documented in this encounter Results * Trichomonas vaginalis PCR Urine (06/02/2021 3:47 PM INSPECTOR MECHANICAL) Trichomonas DNA Not Detected Not Detected SAY BOND Comment: Interpretive Data Testing performed by [facility] using Nucleic Acid Amplification with the [employer] Xpert TV Assay. ??This assay detects DNA from Trichomonas vaginalis using Real-Time PCR. ??This test is cleared by the [facility] Food and Drug Administration for endocervical swabs, vaginal swabs, female urine (first-catch), and male urine (first-catch). ??The performance characteristics for these specimen types have been verified by the [facility]. ??Excess blood in specimens may be inhibitory and result in false negative results. ??The performance of this test has not been evaluated in women or individuals less than 18 years of age. Current Interpretive Data was last revised on 2019. Urine 06/02/2021 3:47 PM INSPECTOR MECHANICAL 06/02/2021 5:12 PM INSPECTOR MECHANICAL Se Veliz MD LAB MICROBIOLOGY - [facility] AL ORDERABLES Final Result [facility] Department [place] [address] * N. gonorrhoeae/C. trachomatis Amplification Urine (06/02/2021 3:47 PM INSPECTOR MECHANICAL) C. trachomatis Not Detected Not Detected SAY BOND N. gonorrhoeae Not Detected Not Detected [facility] Comment: Interpretive Data Testing performed by the [facility]. This assay detects Chlamydia trachomatis and Neisseria gonorrhoeae by nucleic acid amplification testing (NAAT). This test is approved by the [facility] Food and Drug Administration and the performance characteristics have been verified by the laboratory. The performance characteristics of this test have not been evaluated in individuals less than 14 years of age. Current Interpretive Data was last revised on 2018. Urine (None) 06/02/2021 3:47 PM INSPECTOR MECHANICAL 06/02/2021 5:12 PM INSPECTOR MECHANICAL us Se Veliz MD LAB MICROBIOLOGY - GENER AL ORDERABLES Final Result Performing Organization Address City/State/ZIP Co nm Phone Number [facility] Department [place] [address] * POCT urinalysis dipstick (06/02/2021 2:56 PM INSPECTOR MECHANICAL) Glucose, ur, POC Negative Negative mg/dL Ketones, ur, POC Negative Negative Blood, ur, POC Negative Negative Protein, ur, POC Negative Negative Nitrite, ur, POC Negative Negative Leukocytes, ur, POC Negative Negative Lot Number [id number] Urine 06/02/2021 2:56 PM INSPECTOR MECHANICAL us Se Veliz MD POINT OF CARE TEST ORDER CHILO Final Result documented in this encounter Visit Diagnoses Diagnosis Supervision of other normal , antepartum- Primary Maternal obesity affecting , antepartum Rh negative state in antepartum period Elevated blood pressure affecting , antepartum documented in this encounter Care Teams Semiconductor Packages Sealer Relationship Specialty Start Date End Date Venecia Turner MD [address] [place] [address] DR LEXIE Gramajo [facility] [address] [place] [address] PCP - General 12/11/19 07/21/21 Jarred Roy MD 2 [facility] [address] [place] [address] 01/30/19 Elma Echevarria NP [address] [facility] [address] LEXIE Gramajo [facility] [address] [place] [address] Nurse Practitioner General Surgery 12/16/19 documented as of this encounter
--- OUTSIDE RECORDS SUMMARY | 2024-05-10 20:17 | XMS_ITS | Encounter Summary ---
Author Organization [facility] Healthcare Address [address] [place] [address] Care Team Providers Care Paperhanger Supervisor Name Role Phone Jarred Roy MD Unavailable [phone] Venecia Turner MD Primary Care Provider [phone] Elma Echevarria NP Unavailable Reason for Referral * Diagnostic Imaging (Routine) - Closed Specialty Diagnoses / Procedures Referred By Contac t Referred To Contact Diagnoses Supervision of high risk in third trimester Procedures US Ob Follow Up Se Veliz MD Phone: tel: fax: [facility] (All Locations) Referral ID Status Reason Start Date Expiration Date Visits Re quested Visits Authorized [id number] Closed 06/16/2021 07/16/2022 1 1 ARCH ARCHAEOLOGIST Reason for Visit * Reason Comments Routine Visit Encounter Details Date Type Department Care Team (Late st Contact Info) Description 06/16/2021 1:30 PM RESEARCH ARCHAEOLOGIST Office Visit Obstetrics and Gynecology Clinic [address] [facility] Health 3rd Floor [address] [place] [address] Harika Abrams MD [address] [facility] [id number] [place] [address] Se Veliz MD [id number] [address] Supervision of high risk in third trimester (Primary Dx); Maternal obesity affecting , antepartum; Elevated blood pressure affecting , antepartum; Rh negative state in [...] on file Legal Sex Female 11:28 PM RESEARCH ARCHAEOLOGIST Gender Identity Not on file Sexual Orientation Not on file documented as of this encounter Last Filed Vital Signs Vital Sign Reading Time Taken Comments Blood Pressure 114/72 06/16/2021 1:40 PM RESEARCH ARCHAEOLOGIST Pulse 97 06/16/2021 1:40 PM RESEARCH ARCHAEOLOGIST Temperature 36.6 ??C (97.9 ??F) 06/16/2021 1:40 PM CS T Respiratory Rate - - Oxygen Saturation 98% 06/16/2021 1:40 PM RESEARCH ARCHAEOLOGIST Inhaled Oxygen Concentration - - Weight 132.9 kg (293 lb) 06/16/2021 1:40 PM RESEARCH ARCHAEOLOGIST Height - - Body Mass Index 48.76 05/17/2021 1:45 PM RESEARCH ARCHAEOLOGIST documented in this encounter Patient Instructions * Patient Instructions* Se Veliz MD - 06/16/2021 1:30 PM RESEARCH ARCHAEOLOGIST Contact us Office hours: Monday-Monday 8:30 AM-4:30 PM Phone number: [phone] Daytime: Call us if you have questions [...] medical problem, you can call us at [phone]. Please wait until the clinic is open for non-urgent needs as this emergency line cannot help with appointments, paperwork or prescriptions. If you have an emergency and cannot wait, please call 911 or go to the [facility] Emergency room. If you are having a problem with your or are in labor you can go to the [facility] (check in near elevator on first floor) 1 [facility], 5th [place] [address]. ARCH ARCHAEOLOGIST documented in this encounter Discharge Disposition Disposition Code Departure Means Destination Discharge to home or self care documented in this encounter Progress Notes * Se Veliz MD - 06/16/2021 1:30 PM CST OB RETURN VISIT 06/16/2021 Subjective: Mary Licona is a 21 y.o. at 34w2d who presents for her return OB visit. She has no ob complaints or concerns today. States she thinks the baby may be breech as she feels that her head isin my ribcage. movement: Y VB?: N LOF?: N Ctxns? N Objective: Vitals: 06/16/21 1340 BP: 114/72 BP Location: Right arm Patient Position: Sitting Pulse: 97 Temp: 36.6 ??C (97.9 ??F) TempSrc: Temporal SpO2: 98% Weight: 293 lb (132.9 kg) Gen: No acute distress. Abdomen: Soft, nontender, gravid. Extremities: Warm, well perfused. No lower extremity edema/erythema/tenderness. FH: at least 32-34, exam limited by obesity FHT: + 130s Assessment/Plan: 21 y.o. at 34w2d. Problem List Gravid and Elevated blood pressure [...] [x] Method of feeding: Plans breast [] Water Quality Manager: [] Car seat: [] PP Depression Counseling [x] Attg visits (08/09) Relevant Orders POCT urinalysis dipstick (Completed) US Ob Follow Up RTC 1 weeks for growth and check presentation Patient discussed with Dr. Zavala. Se Veliz MD PGY-4 (ELECTRIC METER READER) [phone] Cosigned by Kerry Zavala DO at 06/18/2021 1:23 PM RESEARCH ARCHAEOLOGIST ARCH ARCHAEOLOGIST ARCH ARCHAEOLOGIST Associated attestation - Kerry Zavala DO - 06/18/2021 1:23 PM RESEARCH ARCHAEOLOGIST I agree with the findings and plan of care as documented in the resident/fellow's note. 21 year old at 34+2 who presents for ASHOK. c/b obesity (BMI 48). Growth ultrasound and return visit in 1 week. PTL precautions reviewed with patient. Kerry Zavala DO documented in this encounter Plan of Treatment Not on file documented as of this encounter Procedures Procedure Name Priority Date/Time Associated Diagnosis Comments POCT URINALYSIS DIPSTICK Routine 06/16/2021 1:42 PM RESEARCH ARCHAEOLOGIST Supervision of high risk in third trimester documented in this encounter Results * US Ob Follow Up (06/23/2021 2:31 PM RESEARCH ARCHAEOLOGIST) Fetus# Fetus1 VIEWPOINT Placenta Details anterior VIEWPOINT Estimated Weight 2,568 g&grams VIEWPOINT Presentation Vertex VIEWPOINT Anatomical Region Laterality Modality Abdomen N/A Ultrasound 06/23/2021 2:34 PM RESEARCH ARCHAEOLOGIST us Se Veliz MD IMG OB US PROCEDURES Fin al Result * POCT urinalysis dipstick (06/16/2021 1:42 PM RESEARCH ARCHAEOLOGIST) Glucose, ur, POC Negative Negative mg/dL Ketones, ur, POC Negative Negative Blood, ur, POC Negative Negative Protein, ur, POC Negative Negative Nitrite, ur, POC Negative Negative Leukocytes, ur, POC Negative Negative Lot Number [id number] Urine 06/16/2021 1:42 PM RESEARCH ARCHAEOLOGIST Se Veliz MD POINT OF CARE TEST ORDER CHILO Final Result documented in this encounter Visit Diagnoses Diagnosis Supervision of high risk in third trimester- Primary Maternal obesity affecting , antepartum Elevated blood pressure affecting , antepartum Rh negative state in antepartum period documented in this encounter Care Teams Paperhanger Supervisor Relationship Specialty Start Date End Date Venecia Turner MD [address] [facility] [address]EXIE Gramajo [facility] [address] [place] [address] PCP - General 12/11/19 07/21/21 Jarred Roy MD 2 [facility] [address] [place] [address] 01/30/19 EyeElma charles NP [address] [facility] [address] LEXIE Gramajo [facility] [address] [place] [address] Nurse Practitioner General Surgery 12/16/19 documented as of this encounter
--- OUTSIDE RECORDS SUMMARY | 2024-05-10 20:17 | XMS_ITS | Encounter Summary ---
Author Organization [facility] Healthcare Address [address] [place] [address] Care Team Providers Care Hospital Intern Name Role Phone Jarred Roy MD Unavailable [phone] Venecia Turner MD Primary Care Provider Elma Echevarria NP Unavailable Encounter Details Date Type Department Care Team (Late st Contact Info) Description 01/25/2021 Telephone Obstetrics and Gynecology Clinic [address] [facility] 3rd Floor [address] [place] [address] Faina Morales RN Social History Tobacco Use Types Packs/Day Years Used Date Smoking Tobacco: Never Smokeless Tobacco: Never Alcohol Use Standard Drinks/Week Comments No 0 (1 standard drink = 0.6 oz pur e alcohol) Comments Unknown Sex and Gender Information Value Date Recorded Sex Assigned at Not on file Legal Sex Female 11:28 PM CHEF UNDER Gender Identity Not on file Sexual Orientation Not on file documented as of this encounter Miscellaneous Notes * Telephone Encounter - Faina Morales RN - 01/25/2021 2:53 PM CDT Attempt to call pt, male answered phone, disconnected when requested to speak with Mary. Attempted call again, no answer, no identifier. Letter sent with HROB appt information. documented in this encounter Plan of Treatment Not on file documented as of this encounter Visit Diagnoses Not on filedocumented in this encounter Care Teams Hospital Intern Relationship Specialty Start Date End Date Venecia Turner MD [address] [place] [address] DR LEXIE Gramajo [facility] [address] [place] [address] PCP - General 12/11/19 07/21/21 Jarred Roy MD 2 [facility] [address] [place] [address] 01/30/19 Elma Echevarria NP [address] [place] [address] DR LEXIE Gramajo [facility] [address] [place] [address] Nurse Practitioner General Surgery 12/16/19 documented as of this encounter
--- OUTSIDE RECORDS SUMMARY | 2024-05-10 20:17 | XMS_ITS | Encounter Summary ---
Author Organization [facility] Address [address] [place] [address] Phone Care Team Providers Care Injection Molding Operator Name Role Phone Jarred Roy MD Unavailable [phone] Venecia Turner MD Primary Care Provider [phone] Elma Echevarria NP Unavailable Reason for Visit * Reason Comments FHx Genetic Disorder * Consultation (Routine) - Closed Specialty Diagnoses / Procedures Referred By Loyd medrano Referred To Contact Obstetrics and Gynecology Diagnoses Maternal obesity affecting , antepartum Family history of neural tube defect Se Veliz MD Phone: tel: fax: [facility] (All Locations) Referral ID Status Reason Start Date Expiration Date V isits Requested Visits Authorized [id number] Closed Specialty Services Required 02/09/2021 05/07/2021 1 1 Encounter Details Date Type Department Care Team (Latest Contact Info) Description 02/25/2021 9:00 AM CDT Clinical Support [facility] Obstetrics and Gynecology [facility] Health 7th Floor [address] [place] [address] Maternal obesity affecting , antepartum; Family history of neural tube defect; Family history of congenital anomalies Social History Tobacco Use Types Packs/Day Years Used Date Smoking Tobacco: Never Smokeless Tobacco: Never Alcohol Use Standard Drinks/Week Comments No 0 (1 standard drink = 0.6 oz pur e alcohol) Comments Yes Sex and Gender Information Value Date Recorded Sex Assigned at Not on file Legal Sex Female 11:28 PM FIREBOAT OPERATOR Gender Identity Not on file Sexual Orientation Not on file documented as of this encounter Progress Notes * Juliana Lazaro, CGC - 02/25/2021 9:[address] Veliz, Per your request, Ms. Mary Licona was seen [facility], [facility] for genetic consultation due to a family history of spina bifida with chromosomal abnormality. She was accompanied by her mother, Jazzy. History: Ms. Licona is a 21-year-old female with a gestational age of 18 weeks 3 days, based on an CICI of 07/26/2021. She will be 21 years old at delivery. She denies any exposures to known teratogenic agents. The is complicated by maternal obesity, maternal Rh negative status, and family history of a chromosomal abnormality. Ms. Licona had a maternal serum quad screen that was low risk for Down syndrome, Trisomy 18, and neural tube defects. Specifically, her risk for NTD was estimated to be 1:11,000. Family Health History: A three-generation pedigree was obtained and is available in the scanned genetics record. Ms. Licona has a 17-year-old sister (Suyapa Licona, 11/25/2003) who was born with spina bifida and cleft palate. She has developmental delay. Ms. 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 Ms. Licona???s mother reportedly tested negative for the deletion.It is unclear if Ms. Licona???s father was tested. Ms. Licona has another sister and two brothers, all healthy with no medical or developmental concerns. Ms. Licona???s mother (Jazzy) is 51years old with a history of lymphoma (currently in remission). Ms. Licona???s father is alive and well at age 56. The reported family history was otherwise negative for recurrent loss (>3), defects, intellectual disabilities/Autism, bleeding/blood clotting disorders, blindness/deafness, and known genetic conditions. Consanguinity and known Mu-Ism ancestry were both denied. The patient reported her ethnic background as . She reported her partner's ethnic background as ([place]). 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 Chromosomal deletions can cause a wide array of physical defects and/or developmental delay. Features are often variable. It is possible to have a chromosomal deletion with developmental delay and no physical manifestations. Chromosomal deletions can be de tavo (sporadic) or inherited from a parent. According to Ms. Licona???s mother, Suyapa???s doctors believe that her spina bifida, cleft palate, and developmental delays are related to the deletion. It is unclear from the reported history if her father was testedfor the deletion. If he is an unaffected carrier of the deletion, then Ms. Licona has a 50% chance to have the deletion. She understands that if she has the deletion, there is a 50% chance she would pass it to each . Given that she is unaffected, it is unlikely that she has the deletion. If she does not have the deletion, her children are not at increased risk for a chromosomal abnormality. She understands that chromosomal microarray testing is the only way to know for certain whether or not she has the deletion. She declines this testing. We also discussed the option of chromosomal microarray via amniocentesis. The risks, benefits, and limitations of amniocentesis were discussed. Ms. Licona declined amniocentesis. Iskm-nqrr-tnymz DNA screening is not an option. [employer] ([employer]) does screen for large deletions or duplications; however, Suyapa???s deletion is too small to be detected by this screening. Plan: Ms. Licona declined OUTSIDE LABORER for herself to test for the 8p23.2 deletion. She also declined amniocentesis. Recommendations and Further Testing: Ultrasound is recommended at 18-20 weeks gestation to evaluate growth and anatomy. Thank you for the opportunity to participate in the care of Ms. Licona. If you need further information regarding this visit, please feel free to contact me at [phone]. Sincerely, Juliana Lazaro M.S., [facility] Certified Genetic Counselor Total time spent counselin minutes Cosigned by Josué Lemus MD at 04/07/2021 9:46 AM FIREBOAT OPERATOR BOAT OPERATOR documented in this encounter Plan of Treatment Not on file documented as of this encounter Visit Diagnoses Diagnosis Maternal obesity affecting , antepartum Family history of neural tube defect Family history of congenital anomalies documented in this encounter Orders Outpatient Referral Count Last Ordered Date Fir st Ordered Date AMB REFERRAL TO OB GENETIC COUNSELING 1 documented in this encounter Care Teams Injection Molding Operator Relationship Specialty Start Date End Date Venecia Turner MD [address] [facility] [address] LEXIE Gramajo [facility] [address] [place] [address] PCP - General 12/11/19 07/21/21 Jarred Roy MD 2 [facility] [address] [place] [address] 01/30/19 Elma Echevarria NP [address] [place] [address] DR LEXIE Gramajo [facility] [address] [place] [address] Nurse Practitioner General Surgery 12/16/19 documented as of this encounter
--- OUTSIDE RECORDS SUMMARY | 2024-05-10 20:17 | XMS_ITS | Encounter Summary ---
Author Organization [facility] Healthcare Address [address] [place] [address] Care Team Providers Care Horticultural Services Supervisor Name Role Phone Jarred Roy MD Unavailable [phone] Venecia Turner MD Primary Care Provider [phone] Elma Echevarria NP Unavailable Reason for Visit * Reason Comments Routine Visit Encounter Details Date Type Department Care Team (Late st Contact Info) Description 04/19/2021 2:15 PM BOGGER OPERATOR Office Visit Obstetrics and Gynecology Clinic [address] [facility] 3rd Floor [address] [place] [address] Harika Abrams MD [address] [facility] [phone] [place] [address] Se Veliz MD [address] [address] 26 weeks gestation of (Primary Dx); Supervision of other normal , antepartum; Rh negative state in antepartum period; Family history of neural tube defect; Maternal obesity affecting , antepartum Discharge Disposition: [...] on file Legal Sex Female 11:28 PM BOGGER OPERATOR Gender Identity Not on file Sexual Orientation Not on file documented as of this encounter Last Filed Vital Signs Vital Sign Reading Time Taken Comments Blood Pressure 100/50 04/19/2021 2:34 PM BOGGER OPERATOR Pulse 95 04/19/2021 2:34 PM BOGGER OPERATOR Temperature 36.3 ??C (97.4 ??F) 04/19/2021 2:34 PM CS T Respiratory Rate - - Oxygen Saturation 99% 04/19/2021 2:34 PM BOGGER OPERATOR Inhaled Oxygen Concentration - - Weight 126.7 kg (279 lb 4.8 oz) 04/19/2021 2:34 PM BOGGER OPERATOR Height - - Body Mass Index 46.48 02/21/2021 9:15 PM CDT documented in this encounter Patient Instructions * Patient Instructions* Se Veliz MD - 04/19/2021 2:15 PM BOGGER OPERATOR Contact us Office hours: Monday-Monday 8:30 AM-4:30 PM Phone number: [phone] Daytime: Call us if you have questions [...] medical problem, you can call us at [phone]. Please wait until the clinic is open for non-urgent needs as this emergency line cannot help with appointments, paperwork or prescriptions. If you have an emergency and cannot wait, please call 911 or go to the [facility] Emergency room. If you are having a problem with your or are in labor you can go to the [facility] (check in near elevator on first floor) 1 [facility], 5th [place] [address]. ER OPERATOR documented in this encounter Discharge Disposition Disposition Code Departure Means Destination Discharge to home or self care documented in this encounter Progress Notes * Se Veliz MD - 04/19/2021 2:15 PM CST OB RETURN VISIT 04/19/2021 Subjective: Mary Licona is a 21 y.o. at 26w0d who presents for her return OB visit. She has no ob complaints or concerns. She is feeling tired but overall well. Her ear pain noted at prior visit has resolved. Again reviewed normal anatomy US. movement: N VB?: N LOF?: N Ctxns? N Objective: Vitals: 04/19/21 1434 BP: 100/50 Patient Position: Sitting Pulse: 95 Temp: 36.3 ??C (97.4 ??F) TempSrc: Temporal SpO2: 99% Weight: 279 lb 4.8 oz (126.7 kg) Gen: No acute distress. Abdomen: Soft, nontender, gravid. Extremities: Warm, well perfused. No lower extremity edema/erythema/tenderness. FHT: + FH: 28 weeks (likely in s/o habitus) Assessment/Plan: 21 y.o. at 26w0d. Problem List Gravid and Maternal obesity affecting [...] [] GBS [] GC/CT (if indicated) Counseling [x] Method of delivery: Ant vaginal [x] Method of contraception: Considering LARC [x] Method of feeding: Plans breast [] Cooker Chip: [] Car seat: [] PP Depression Counseling [] Attg visits (06/11) Relevant Orders CBC without differential Glucose tolerance testing 50 gram gestational screen RPR Neuro Family history of neural tube defect [...] until delivery and prior to subsequent pregnancies Rhogam at 28w. Follow-up MD visit in [address] Patient discussed with Dr. Butterfield. Se Veliz MD PGY-4 (ENVIRONMENTAL HEALTH AND SAFETY LEADER) [phone] Cosigned by Ileana Butterfield MD at 04/25/2021 8:24 PM BOGGER OPERATOR ER OPERATOR ER OPERATOR Associated attestation - Ileana Butterfield MD - 04/25/2021 8:24 PM BOGGER OPERATOR I have personally reviewed with Dr. Veliz the history, physical examination, laboratory studiesand proposed management for Mary Licona. Together we formulated a clinical diagnosis for each problem and developed a plan for therapy during or immediately after her clinic visit. I agree with the recommended plan of care. Ileana Butterfield MD documented in this encounter Plan of Treatment Not on file documented as of this encounter Procedures Procedure Name Priority Date/Time Associated Diagnosis Comments POCT URINALYSIS DIPSTICK Routine 04/19/2021 2:42 PM BOGGER OPERATOR 26 weeks gestation of documented in this encounter Results * RPR (04/19/2021 3:42 PM BOGGER OPERATOR) [facility] RPR Nonreactive Nonreactive [facility] Blood 04/19/2021 3:42 PM BOGGER OPERATOR 04/19/2021 4:33 PM BOGGER OPERATOR Se Veliz MD LAB MICROBIOLOGY - GENER AL ORDERABLES Final Result Performing Organization Address [facility] de Phone Number [facility] [place] [address] * Glucose tolerance testing 50 gram gestational screen (04/19/2021 3:42 PM BOGGER OPERATOR) [facility] GTT 50g gest screen 91 <=140 mg/dL [facility] Comment: Interpretive Data Used for suspected gestational [...] revised on 2020. Blood 04/19/2021 3:42 PM BOGGER OPERATOR 04/19/2021 4:33 PM BOGGER OPERATOR Se Veliz MD LAB BLOOD ORDERABLES Fin al Result Performing Organization Address [facility] de Phone Number [facility] Department [place] [address] * (ABNORMAL) CBC without differential (04/19/2021 3:42 PM BOGGER OPERATOR) [facility] WBC 7.2 3.8 - 9.9 K/cumm [facility] Hgb 11.7(L) 11.9 - 15.5 g/dL [facility] Hct 34.8(L) 35.6 - 45.5 % [facility] Plt 236 150 - 400 K/cumm [facility] MPV 10.0 9.1 - 12.3 fL [facility] RBC 3.72(L) 3.90 - 5.20 M/cumm [facility] MCV 93.5 81.3 - 96.4 fL [facility] MCH 31.5 27.1 - 33.3 pg [facility] MCHC 33.6 32.3 - 35.7 g/dL [facility] RDW CV 13.2 11.1 - 14.9 % [facility] RDW SD 44.7 35.7 - 48.1 fL [facility] NRBC abs 0.00 0.00 - 0.01 K/cumm [facility] Blood 04/19/2021 3:42 PM BOGGER OPERATOR 04/19/2021 4:33 PM BOGGER OPERATOR us Se Veliz MD LAB BLOOD ORDERABLES Fin al Result [facility] Department [place] [address] * POCT urinalysis dipstick (04/19/2021 2:42 PM BOGGER OPERATOR) [facility] Glucose, ur, POC Negative Negative mg/dL Bilirubin, ur, POC Negative Negative, Small, Moderate, Large Ketones, ur, POC Negative Negative Blood, ur, POC Negative Negative Protein, ur, POC Negative Negative Nitrite, ur, POC Negative Negative Leukocytes, ur, POC Negative Negative Lot Number [id number] Urine 04/19/2021 2:42 PM BOGGER OPERATOR Se Veliz MD POINT OF CARE TEST ORDER CHILO Final Result documented in this encounter Visit Diagnoses Diagnosis 26 weeks gestation of - Primary Supervision of other normal , antepartum Rh negative state in antepartum period Family history of neural tube defect Maternal obesity affecting , antepartum documented in this encounter Care Teams Horticultural Services Supervisor Relationship Specialty Start Date End Date Venecia Turner MD [address] [facility] [address] [facility] [address] [place] [address] PCP - General 12/11/19 07/21/21 Jarred Roy MD 2 [facility] [address] [place] [address] 01/30/19 Elma Echevarria NP [address] [facility] [address] LEXIE Gramajo [facility] [address] [place] [address] Nurse Practitioner General Surgery 12/16/19 documented as of this encounter
--- OUTSIDE RECORDS SUMMARY | 2024-05-10 20:17 | XMS_ITS | Encounter Summary ---
Author Organization [facility] Healthcare Address [address] [place] [address] Care Team Providers Care Housekeeping Cleaner Name Role Phone Jarred Roy MD Unavailable [phone] Venecia Turner MD Primary Care Provider [phone] Elma Echevarria NP Unavailable Reason for Visit * Reason Comments Routine Visit Encounter Details Date Type Department Care Team (Late st Contact Info) Description 07/15/2021 12:30 PM FLAVORINGS COMPOUNDER Office Visit Obstetrics and Gynecology Clinic [address] [facility] 3rd Floor [address] [place] [address] Harika Abrams MD [address] [facility] [phone] [place] [address] Se Veliz MD [address] [address] Maternal obesity affecting , antepartum (Primary Dx); [...] on file Legal Sex Female 11:28 PM FLAVORINGS COMPOUNDER Gender Identity Not on file Sexual Orientation Not on file documented as of this encounter Last Filed Vital Signs Vital Sign Reading Time Taken Comments Blood Pressure 129/69 07/15/2021 12:31 PM FLAVORINGS COMPOUNDER Pulse 100 07/15/2021 12:31 PM FLAVORINGS COMPOUNDER Temperature 36.1 ??C (97 ??F) 07/15/2021 12:31 PM FLAVORINGS COMPOUNDER Respiratory Rate - - Oxygen Saturation 98% 07/15/2021 12:31 PM FLAVORINGS COMPOUNDER Inhaled Oxygen Concentration - - Weight 134 kg (295 lb 6.4 oz) 07/15/2021 12:31 P M FLAVORINGS COMPOUNDER Height - - Body Mass Index 49.16 06/22/2021 12:59 PM FLAVORINGS COMPOUNDER documented in this encounter Discharge Disposition Disposition Code Departure Means Destination Discharge to home or self care documented in this encounter Progress Notes * Se Veliz MD - 07/15/2021 12:30 PM CST OB RETURN VISIT 07/15/2021 Subjective: Mary Licona is a 21 y.o. at 38w3d who presents for her return OB visit. She has no ob complaints or concerns. movement: Y VB?: N LOF?: N Ctxns? N Objective: Vitals: 07/15/21 1231 BP: 129/69 BP Location: Left arm Patient Position: Sitting Pulse: 100 Temp: 36.1 ??C (97 ??F) TempSrc: Temporal SpO2: 98% Weight: 295 lb 6.4 oz (134 kg) Gen: No acute distress. Abdomen: Soft, nontender, gravid. Extremities: Warm, well perfused. No lower extremity edema/erythema/tenderness. FHT: 120s Assessment/Plan: 21 y.o. at 38w3d. Problem List Gravid and Elevated blood pressure [...] [x] Method of feeding: Plans breast [] Hand Spinner: [] Car seat: [] PP Depression Counseling [x] Attg visits (11/08) Relevant Orders POCT urinalysis dipstick (Completed) RTC for IOL Patient seen and discussed with Dr. García. Se Veliz MD PGY-4 (BACKUP ADMINISTRATIVE COORDINATOR) [phone] Cosigned by Nelsy García MD at 07/16/2021 7:56 AM FLAVORINGS COMPOUNDER ORINGS COMPOUNDER ORINGS COMPOUNDER Associated attestation - Nelsy García MD - 07/16/2021 7:56 AM FLAVORINGS COMPOUNDER ATTESTATION: I have seen and examined the patient with the resident and I was present for the dumont portions of the history and physical examination. I have reviewed Dr. Veliz???s history, physical exam, and management plan. I have made appropriate revisions to the note and agree with the findings and plan ofcare as documented. I was personally present and involved for the EOB visit . I personally performed the patient counseling. Briefly, 21 y.o. at 38w3d for ASHOK visit. IOL expectations discussed. Nelsy García MD documented in this encounter Plan of Treatment Not on file documented as of this encounter Procedures Procedure Name Priority Date/Time Associated Diagnosis Comments POCT URINALYSIS DIPSTICK Routine 07/15/2021 12:36 PM FLAVORINGS COMPOUNDER Supervision of other normal , antepartum documented in this encounter Results * POCT urinalysis dipstick (07/15/2021 12:36 PM FLAVORINGS COMPOUNDER) Glucose, ur, POC Negative Negative mg/dL Ketones, ur, POC Negative Negative Blood, ur, POC Negative Negative Protein, ur, POC Negative Negative Nitrite, ur, POC Negative Negative Leukocytes, ur, POC Negative Negative Lot Number [id number] Urine 07/15/2021 12:3 6 PM FLAVORINGS COMPOUNDER us Se Veliz MD POINT OF CARE TEST ORDER CHILO Final Result documented in this encounter Visit Diagnoses Diagnosis Maternal obesity affecting , antepartum- Primary Supervision of other normal , antepartum Rh negative state in antepartum period Elevated blood pressure affecting , antepartum documented in this encounter Historical Medications * This list may reflect changes made after this encounter. topiramate (TOPAMAX) 25 mg tablet Take 50 mg by mouth nightly 07/12/2019 2 fluticasone propionate (FLONASE) 50 mcg/actuation nasal spray fluticasone propionate 50 mcg/actuation nasal spray,suspension 2 clindamycin (CLEOCIN) 300 mg capsule clindamycin HCl 300 mg capsule 2 bacitracin (bacitracin) 500 unit/gram ointment Apply topically 2 (two) times a day 02/04/2019 2 albuterol HFA (PROVENTIL HFA,VENTOLIN HFA,PROAIR HFA) 90 mcg/actuation inhaler albuterol sulfate HFA 90 mcg/actuation aerosol inhaler 2 [id number] fumarate-FA () 28-800 mg-mcg tablet daily 2 mupirocin (BACTROBAN) 2 % ointment mupirocin 2 % topical ointment 2 added in this encounter Care Teams Housekeeping Cleaner Relationship Specialty Start Date End Date Venecia Turner MD [address] [facility] [address] LEXIE Gramajo [facility] [address] [place] [address] PCP - General 12/11/19 07/21/21 Jarred Roy MD 2 [facility] [address] [place] [address] 01/30/19 EyeElma charles NP [address] [facility] [address] LEXIE Gramajo [facility] [address] [place] [address] Nurse Practitioner General Surgery 12/16/19 documented as of this encounter
--- OUTSIDE RECORDS SUMMARY | 2024-05-10 20:17 | XMS_ITS | Encounter Summary ---
Author Organization [facility] Healthcare Address [address] [place] [address] Care Team Providers Care Mental Hygiene Consultant Name Role Phone Jarred Roy MD Unavailable [phone] Venecia Turner MD Primary Care Provider [phone] Elma Echevarria NP Unavailable Encounter Details Date Type Department Care Team (Late st Contact Info) Description 06/30/2021 Orders Only Obstetrics and Gynecology Clinic [address] [facility] 3rd Floor [address] [place] [address] Se Veliz MD [address] [address] Supervision of other normal , antepartum Social [...] on file Legal Sex Female 11:28 PM MOLDER MACHINE TENDER Gender Identity Not on file Sexual Orientation Not on file documented as of this encounter Plan of Treatment Not on file documented as of this encounter Procedures Procedure Name Priority Date/Time Associated Diagnosis Comments GROUP B STREPTOCOCCUS CULTURE Routine 06/30/2021 4:40 PM MOLDER MACHINE TENDER Supervision of other normal , antepartum documented in this encounter Results * (ABNORMAL) Group B streptococcal culture Vaginal/Rectal (06/30/2021 4:40 PM MOLDER MACHINE TENDER) Report Final Report: Streptococcus agalactiae (Group B [...] allergic patients, please contact the laboratory at [phone] to request susceptibility testing * ??* ??* ??* ??* ??* ??* ??* ??* ??* ??* ??* ??* ??* ??* ??* ??* ??* ??* ??* (.) [facility] Organism STREPTOCOCCUS AGALACTIAE (GROUP B STREPTOCOCCI) [facility] Vaginal/Rectal 06/30/2021 4: 40 PM MOLDER MACHINE TENDER 06/30/2021 7:04 PM MOLDER MACHINE TENDER Narrative [facility] - 07/02/2021 1:36 PM MOLDER MACHINE TENDER Testing performed by [facility] ([phone]). us Se Veliz MD LAB MICROBIOLOGY - GENER AL ORDERABLES Final Result [facility] Department [place] [address] documented in this encounter Visit Diagnoses Diagnosis Supervision of other normal , antepartum documented in this encounter Care Teams Mental Hygiene Consultant Relationship Specialty Start Date End Date Venecia Turner MD [address] [place] [address] DR LEXIE Gramajo [facility] [address] [place] [address] PCP - General 12/11/19 07/21/21 Jarred Roy MD 2 [facility] TONY [facility] [address] [place] [address] 01/30/19 EyeElma charles NP [address] [facility] [address] LEXIE Gramajo [facility] [address] [place] [address] Nurse Practitioner General Surgery 12/16/19 documented as of this encounter
--- OUTSIDE RECORDS SUMMARY | 2024-05-10 20:17 | XMS_ITS | Encounter Summary ---
Author Organization [facility] Healthcare Address [address] [place] [address] Care Team Providers Care Supervisor Malted Milk Name Role Phone Jarred Roy MD Unavailable [phone] Venecia Turner MD Primary Care Provider [phone] Elma Echevarria NP Unavailable Reason for Referral * Diagnostic Imaging (Routine) - Closed Specialty Diagnoses / Procedures Referred By Contac t Referred To Contact Diagnoses Supervision of high risk in third trimester Procedures US Ob Follow Up Se Veliz MD Phone: tel: fax: [facility] (All Locations) Referral ID Status Reason Start Date Expiration Date Visits Re quested Visits Authorized [id number] Closed 06/16/2021 07/16/2022 1 1 AGE NEGOTIATOR Reason for Visit * Diagnostic Imaging (Routine) - Closed Specialty Diagnoses / Procedures Referred By Contac t Referred To Contact Diagnoses Supervision of high risk in third trimester Procedures US Ob Follow Up Se Veliz MD Phone: tel: fax: [facility] (All Locations) Referral ID Status Reason Start Date Expiration Date Visits Re quested Visits Authorized [id number] Closed 06/16/2021 07/16/2022 1 1 Encounter Details Date Type Department Care Team (Latest Contact Info) Description 06/23/2021 2:30 PM HOSTAGE NEGOTIATOR - 06/23/2021 11:59 PM HOSTAGE NEGOTIATOR Hospital Encounter [facility] Ul[facility]ound [address] [facility] [place] [address] Harika Abrams MD [address] [id number] [place], [place] [id number] Se Veliz MD [address] [facility] [address] [place] [id number] Supervision of high risk in third trimester Discharge Disposition: Discharge to home or [...] on file Legal Sex Female 11:28 PM HOSTAGE NEGOTIATOR Gender Identity Not on file Sexual Orientation [...] by mouth daily 30 tablet 11 02/09/2021 03/16/202 2 ibuprofen (ADVIL,MOTRIN) 600 mg tabletIndication s:Cramps [...] UP Schedule Routine, Read Routine (OP Routine) 06/23/2021 2:31 PM HOSTAGE NEGOTIATOR Supervision of high risk in third trimester documented in this encounter Results * US Ob Follow Up (06/23/2021 2:31 PM HOSTAGE NEGOTIATOR) Fetus# Fetus1 VIEWPOINT Placenta Details anterior VIEWPOINT Estimated Weight 2,568 g&grams VIEWPOINT Presentation Vertex VIEWPOINT Anatomical Region Laterality Modality Abdomen N/A Ultrasound 06/23/2021 2:34 PM HOSTAGE NEGOTIATOR us Se Veliz MD IMG OB US PROCEDURES Fin al Result documented in this encounter Visit Diagnoses Diagnosis Supervision of high risk in third trimester documented in this encounter Care Teams Supervisor Malted Milk Relationship Specialty Start Date End Date Venecia Turner MD [address] [facility] [address] [place] [address] [facility] [address] [place] [address] PCP - General 12/11/19 07/21/21 Jarred Roy MD 2 [facility] [address] [place] [address] 01/30/19 EyersElma NP [address] [facility] [address] Nurse Practitioner General Surgery 12/16/19 documented as of this encounter
--- OUTSIDE RECORDS SUMMARY | 2024-05-10 20:17 | XMS_ITS | Encounter Summary ---
Author Organization [facility] Healthcare Address [address] [place] [address] Care Team Providers Care Property Site Manager Name Role Phone Jarred Roy MD Unavailable [phone] Venecia Turner MD Primary Care Provider [phone] Elma Echevarria NP Unavailable Reason for Referral * Consultation (Routine) - Closed Specialty Diagnoses / Procedures Referred By Loyd medrano Referred To Contact Obstetrics and Gynecology Diagnoses Maternal obesity affecting , antepartum Family history of neural tube defect Se Acosta MD Phone: tel: fax: [facility] (All Locations) Referral ID Status Reason Start Date Expiration Date V isits Requested Visits Authorized [id number] Closed Specialty Services Required 02/09/2021 05/07/2021 1 1 Question Answer Please select the performing region: [facility] (All Locations) [[id number]] # of visits: 1 Comments Sister with spina bifida and cerebral palsy but patient states she (the sister) recently underwent genetic testing and has a deletion on chromosome 8 * Diagnostic Imaging (Routine) - Closed Specialty Diagnoses / Procedures Referred By oLyd medrano Referred To Contact Diagnoses Family history of neural tube defect Procedures US Ob Detail Anatomy Single Or First Gestation Se Acosta MD Phone: tel: fax: [facility] (All Locations) Referral ID Status Reason Start Date Expiration Date Visits Re quested Visits Authorized [id number] Closed 02/09/2021 03/11/2022 1 1 Reason for Visit * Reason Comments Initial Visit High Risk Gestation Encounter Details Date Type Department Care Team (Late st Contact Info) Description 02/09/2021 9:00 AM CDT Initial Obstetrics and Gynecology Clinic [address] [facility] 3rd Floor [address] [place] [address] Harika Abrams MD [address] [facility] [phone] [place], [place] [id number] Se Acosta MD [address] [id number] [place]: [id number] Discharge Disposition: Discharge to home or self care Social History Tobacco Use Types Packs/Day Years Used Date Smoking Tobacco: Never Smokeless Tobacco: Never Alcohol Use Standard Drinks/Week Comments No 0 (1 standard drink = 0.6 oz pur e alcohol) Comments Yes Sex and Gender Information Value Date Recorded Sex Assigned at Not on file Legal Sex Female 11:28 PM CABIN AGENT Gender Identity Not on file Sexual Orientation Not on file documented as of this encounter Last Filed Vital Signs Vital Sign Reading Time Taken Comments Blood Pressure 132/73 02/09/2021 9:28 AM CDT Pulse 95 02/09/2021 9:28 AM CDT Temperature 36.2 ??C (97.1 ??F) 02/09/2021 9:28 AM CD T Respiratory Rate - - Oxygen Saturation 100% 02/09/2021 9:28 AM CDT Inhaled Oxygen Concentration - - Weight 119.8 kg (264 lb 3.2 oz) 02/09/2021 9:28 AM CDT Height - - Body Mass Index 43.97 03/11/2020 9:45 AM CABIN AGENT documented in this encounter Patient Instructions * Patient Instructions* Se Acosta MD - 02/09/2021 9:00 AM CDT Contact us Office hours: Monday-Monday 8:30 AM-4:30 PM Phone number: [phone] Daytime: Call us if you have questions [...] medical problem, you can call us at [phone]. Please wait until the clinic is open for non-urgent needs as this emergency line cannot help with appointments, paperwork or prescriptions. If you have an emergency and cannot wait, please call 911 or go to the [facility] Emergency room. If you are having a problem with your or are in labor [facility] (check in near elevator on first floor) [address] [facility], [address]th [place] [address]. documented in this encounter Ordered Prescriptions Prescription Sig Dispense Quantity Refills Last Filled Start Date End Date folic acid (FOLVITE) 1 mg tablet Take 1 tablet (1 mg total) by mouth daily 30 tablet 11 02/09/2021 07/21/2021 documented in this encounter Discharge Disposition Disposition Code Departure Means Destination Discharge to home or self care documented in this encounter Progress Notes * Se Acosta MD - 02/09/2021 9:00 AM CDT Initial OB Visit Date of Visit: 02/09/2021 12:58 PM Author: Se Acosta MD Referring Provider: Dr. James's JOGGER OPERATOR Mary Licona is a 20 y.o. at by who desires establishment of care for her . Her is currently complicated by: #FH NTD - Sister w/ spina bifida - No other family members with NTD, congenital anomaly, or disability - Patient is taking folate in PNV, no extra supplementation - Patient states her sister had a genetic test at age 11 that was significant for a deletion from chromosome 8 #Obesity - Has not completed early 1h - A1c 4.6 in 2019 #Rh negative Patient Active Problem List Diagnosis ??? Closed nondisplaced fracture of medial cuneiform of right foot ??? Maternal obesity affecting , antepartum ??? Supervision of other normal , antepartum ??? Rh negative state in antepartum period ??? Family history of neural tube defect Morning sickness? no movement? no Leakage of fluid? no Vaginal bleeding? no Contractions? no FOB name: Planned ? no Desired ? no Taking ? yes Taking other meds not yet cleared by OB? no Cats in household? no Job with chemical exposure? no Xrays in ? no Dating: No LMP recorded. Patient is . Working Critiera: 1T Obstetric History: OB History Para Term AB Living 1 SAB TAB Ectopic Multiple Live Births # Outcome Date GA Lbr Zachary/2nd Weight Sex Delivery Anes PTL Lv 1 Current Genetic History: [-] Mother's Age > 34 years [-] Sickle Cell Disease or Trait () [-] Thalasemia (Djiboutian, New Zealander, Medit or ; MCV <80) [-] Holger Sachs Disease (Orthodoxy, Cajun, Latvian [place]) [-] Down's Syndrome [+] Neural Tube Defects (Meningomyelocele, Spina Bifida or Anencephaly) [-] Other Developmental Delay [-] Cystic Fibrosis [-] Saras[place]'s Chorea [-] Muscular Dystrophy [-] Hemophilia [-] Other Heritable condition Medical History: Past Medical History: Diagnosis Date ??? Closed nondisplaced fracture of medial cuneiform of right foot 06/03/2019 ??? HX OTHER MEDICAL T&A in 2011; Comments: MIRANDA 05/20/2014 - ??? HX OTHER MEDICAL elbow fracture 02-06-15.; Comments: MIRANDA 02/09/2015 - Current Outpatient Medications Medication Sig Dispense Refill ??? HYDROcodone-acetaminophen (NORCO) 5-325 mg per tablet Take 1 tablet by mouth every 4 (four) hours as needed for pain 12 tablet 0 ??? ibuprofen (ADVIL,MOTRIN) 600 mg tablet Take 1 tablet (600 mg total) by mouth every 8 (eight) hours as needed for pain. Take with food. 30 tablet 0 No current facility-administered medications for this visit. No Known Allergies Surgical History: Past Surgical History: Procedure Laterality Date ??? TONSILLECTOMY/ADENOIDECTOMY Bilateral Family History: Family History Problem Relation Age of Onset ??? Hypertension Father Hypertension; ??? Other Mother Alive and well at age 44.; Social History: Social History Social History Narrative ??? Not on file FOB: involved, supportive IPV: neg EPDS/PHQ-2: neg/neg Tob/EtOH/drugs: neg/neg/neg Physical Exam: Vitals: BP 132/73 (BP Location: Right arm, Patient Position: Sitting) Pulse 95 Temp 36.2 ??C (97.1 ??F)(Temporal) Wt 264 lb 3.2 oz (119.8 kg) SpO2 100% BMI 43.97 kg/m?? General: Well appearing, pleasant female in NAD HEENT: Normocephalic, normal eye movement, nonicteric sclera Neck: No thyromegaly or masses Heart: Warm and well perfused Lungs: Normal WOB, no clubbing or cyanosis Abdomen: Soft, NT/ND, gravid Extremities: Warm and well perfused, nontender, no LE edema Pelvic: Deferred Labs: No results found for: ABO, RH, HIV, HIVPCR, RPR, HEPBSAG, GBS Assessment and Plan: Mary Licona is a 20 y.o. at 16w1d by 1T with complicated by: Problem List Gravid and Maternal obesity affecting , antepartum - Primary Overview - BMI 38 - A1c 03/2020 4.6 Plan: [] Routine 28w GTT Relevant Orders Alpha fetoprotein, quad screen Ambulatory referral to OB Genetic Counseling Rh negative state in antepartum period Overview For 28w Rhogam Supervision of other normal , antepartum Overview First Trimester: [x] Dating Criteria: 1 [x] Labs: O- Ab neg, HIV neg HepB neg RPR NR Rub NI VZV NI [x] Genetic Screening: Quad screen (15-18 wks), CF neg [x] Hgb electrophoresis: AA [x] GC/CT/Tr: Neg/neg/neg UCx: neg [x] Pap: LSIL 06/2020 [x] PNBHS referral: Not indicated [x] ASA at 12 weeks: Not indicated [x] Early 1h GTT (if BMI>30): A1c 4.6 [x] COVID vaccine: counseled 02/09/21 Second Trimester: [] Anatomy ultrasound: ordered [] Placenta Location: [] CBC [] 1hr gtt at 24-28wks: [] Flu Shot (Feb-Apr) [] Tdap (27-36wks) [] Rhogam (if Rh neg): indicated at 28w Third Trimester: [] CBC/HIV/RPR/T&S [] GBS [] GC/CT (if indicated) Counseling [] Method of delivery: [] Method of contraception: [] Method of feeding: [] Materials Mgmt Tech: [] Car seat: [] PP Depression Counseling [] Attg visits (05/11) Neuro Family history of neural tube defect Overview - Sister with spina bifida, no other family members with NTD - Per [facility], may have slightly elevated risk of NTD - Patient is taking folate in PNV, no extra supplementation - Patient states her sister had a genetic test at age 11 that was significant for a deletion from chromosome 8 Plan: [x] 1mg folate supplementation until delivery and prior to subsequent pregnancies [] Specialized anatomy at 18-20w (ordered) [x] Referred to GC for consultation [x] Quad screen ordered Relevant Orders POCT urinalysis dipstick (Completed) US Ob Detail Anatomy Single Or First Gestation Ambulatory referral to OB Genetic Counseling Reviewed what to expect from visits and schedule, where to call, diet and exercise with expected weight gain, medications, and smoking/EtOH. Discussed [facility] location and early precautions. Reviewed importance of COVID vaccination. Next US: specialized anatomy at [facility] RTC in 4 weeks, 2 weeks for anatomy and GC The patient was seen and discussed with Dr. Hopkins and Dr. Berrios. Se Acosta MD PGY-4 (BORING MILL OPERATOR) [phone] [facility] Fellow Attestation I have seen and discussed Mary Licona with the resident, Dr. Acosta on 02/09/2021. I have evaluated the patient and reviewed the treatment plan and recommendations. I agree with the findingsand the plan of care as documented in the resident???s note. 20 yo G1 @ 16w1d referred for FHX ONTD. Discussed that while increased supplementation is recommended (rx provided), the overall risk is relatively low (1/220 for 2nd degree relative). Quad screen ordered, anatomic survey to be done here,GC ordered. RTC 4 weeks. Reyna Hopkins MD Maternal- Medicine Fellow Cosigned by Debra Berrios MD at 02/10/2021 4:50 PM CDT Associated attestation - Debra Berrios MD - 02/10/2021 4:50 PM CDT I have seen and examined the patient. I agree with the findings and plan of care as documented in the resident/fellow's note and as discussed with the resident/fellow. My total encounter time on 02/09/2021 was 45 minutes which was spent in the activities documented in the note. This includes time spent prior to the visit and after the visit in direct care of the patient. This time does not includetime spent in any separately reportable services. documented in this encounter Plan of Treatment Scheduled Referrals Name Type Priority Associated Diagnoses Order Schedule Ambulatory referral to OB Genetic Counseling Outpatient Referral Routine Maternal obesity affecting , antepartum Family history of neural tube defect Expected: 02/23/2021 (Approximate), Expires: 02/09/2022 documented as of this encounter Procedures Procedure Name Priority Date/Time Associated Diagnosis Comments ALPHA FETOPROTEIN, QUAD SCREEN Routine 02/09/2021 10:40 AM CDT Maternal obesity affecting , antepartum POCT URINALYSIS DIPSTICK Routine 02/09/2021 10:12 AM CDT Family history of neural tube defect documented in this encounter Results * US Ob Detail Anatomy Single Or First Gestation (03/26/2021 10:58 AM CABIN AGENT) Fetus# Fetus1 VIEWPOINT Placenta Details anterior, Previa-no, no placental masses VIEWPOINT Estimated Weight 518 g&grams VIEWPOINT Presentation Vertex VIEWPOINT Anatomical Region Laterality Modality Body N/A Ultrasound 03/26/2021 11:0 7 AM CABIN AGENT us Se Acosta MD IMG OB US PROCEDURES Fin al Result * Alpha fetoprotein, quad screen (02/09/2021 10:40 AM CDT) Recalc Maternal Serum Screen. Not Reported [facility] Collection Date 02/09/21 [facility] Birthdate. [birth year] [facility] Calc Age at CICI. 21 years [facility] Patient weight 119 [facility] Maternal Wt 1. Not Reported [facility] Insulin Dependent Diabetes. No [facility] Number of Fetuses 1 [facility] Ivf . No [facility] CICI by U/S Scan. 07/26/2021 [facility] CICI by LMP. Not Reported [facility] GA on Collection by U/S Scan. 16,1 [facility] [place] on Collection by Dates. Not Reported [facility] GA Used In Risk. Scan estimate [facility] alpha Fetoprotein 24.8 ng/mL [facility] Estriol, unconjugated 0.91 ng/mL [facility] HCG, qual 22.9 IUnits/m L [facility] Inhibin A, interpretation 83 pg/mL [facility] Down Syndrome Screen Risk Estimate. 05/30,000 <1/270 [facility] Down Syndrome Maternal Age Risk. [facility] Trisomy 18 risk assessment 14,000 <1/100 [facility] alpha fetoprotein See Footnote [facility] Comment: Screen negative for neural tube defects, Down syndrome and trisomy 18. Additional Comments. Not Reported [facility] Recommended Follow Up. None. [facility] General Test Info. See Footnote [facility] Comment: This screening provides an estimation of risk, not a diagnosis. Incorrect or incomplete information may significantly alter results. Risks are adjusted for donor eggs, frozen embryos, and IVF. Results may be unreliable in twin pregnancies with a demise. Results are not available for pregnancies with triplets and higher-order multiples. A positive result occurs when the risk for Down syndrome equals or exceeds 1 in 270, when the risk for trisomy 18 equals or exceeds 1 in 100, or when the AFP MoM equals or exceeds 2.5. Screen results and family history influence individual risk. If there is a family history of a neural tube defect, chromosome abnormality, or other inherited condition, consider the option of a genetic consultation. For further information, please contact the maternal screening laboratory at . ADDITIONAL INFORMATION This test was developed and its performance characteristics determined by [facility] in a manner consistent with CLIA requirements. This test has not been cleared or approved by the U.S. Food and Drug Administration. Test Performed by: [facility] [address] [place] [address] Tools Administrator: Geoffrey Catherine M.D. Ph.D.; CLIA# [id number] RESULTS SUMMARY Normal risk [facility] NEURAL TUBE DEFECT RISK ESTIMATE 1/11,000 [facility]AY [facility] AFP MOM 0.64 <2.50 MoM [facility] AFP MOM (14,0-14,6) Not Reported [facility] UE3 MOM 0.86 MoM [facility] HCG,TOTAL MOM 0.61 MoM [facility]AY [facility] INHIBIN MOM 0.52 MoM [facility] PATIENT RACE non-Black [facility] CURRENT CIGARETTE SMOKING STATUS non-Smoker [facility] NUMBER OF CHORIONS Unknown [facility] PREV DOWN (T21) / TRISOMY No [facility] PREV W/NEURAL TUBE DEFECT No [facility] PATIENT OR FATHER OF BABY HAS NTD No [facility] INITIAL OR REPEAT TESTING Initial testing [facility] PHYSICIAN PHONE NUMBER [phone] [facility] Blood 02/09/2021 10:4 0 AM CDT 02/09/2021 11:19 AM CDT Narrative [facility] - 02/10/2021 3:44 PM CDT Maternal weight:->119 kg Maternal race:->Caucasion Last menstrual period (date if known)->unknown Gestational age on date of ultrasound:->9w3d on 12/24/20 Is patient an insulin-dependent diabetic?->No Is this a multiple gestation?->No Number of fetuses: (Risk estimate not availabe for 3 or more fetuses)->1 In-Vitro Fertilization (Age of the egg affects the risk calculations)->No Has the patient had a previous with Down Syndrome (trisomy 21) or other trisomy?->No Has the patient had a previous with neural tube defects?->No Does the patient or father of baby have a neural tube defect?->No Is this a repeat serum screen?->No Current cigarette smoking status:->Nonsmoker Estimated Due Date->07/26/21 CICI Determined by->Ultrasound us Se Acosta MD LAB GENETIC TESTING Dilcia Result [facility] Department [place] [address] * POCT urinalysis dipstick (02/09/2021 10:12 AM CDT) Glucose, ur, POC Negative Negative mg/dL Bilirubin, ur, POC Negative Negative, Small, Moderate, Large Ketones, ur, POC Negative Negative Blood, ur, POC Negative Negative Protein, ur, POC Negative Negative Nitrite, ur, POC Negative Negative Leukocytes, ur, POC Negative Negative Lot Number [id number] Urine 02/09/2021 10:1 2 AM CDT us Se Acosta MD POINT OF CARE TEST ORDER CHILO Final Result documented in this encounter Visit Diagnoses Diagnosis Maternal obesity affecting , antepartum- Primary History of cholestasis during Low grade squamous intraepithelial lesion on cytologic smear of cervix (LGSIL) Supervision of other normal , antepartum Family history of neural tube defect Rh negative state in antepartum period documented in this encounter Care Teams Property Site Manager Relationship Specialty Start Date End Date Venecia Turner MD [address] [place] [address] DR LEXIE Gramajo [facility] [address] [place] [address] PCP - General 12/11/19 07/21/21 Jarred Roy MD [facility] [address] [place] [address] 01/30/19 Elma Echevarria NP 4 [facility] [address] LEXIE Gramajo [facility] [address] [place] [address] Nurse Practitioner General Surgery 12/16/19 documented as of this encounter
--- OUTSIDE RECORDS SUMMARY | 2024-05-10 20:17 | XMS_ITS | Encounter Summary ---
Author Organization [facility] Healthcare Address [address] [place] [address] Care Team Providers Care Ship Superintendent Name Role Phone Jarred Roy MD Unavailable [phone] Venecia Turner MD Primary Care Provider [phone] Elma Echevarria NP Unavailable Reason for Referral * Medication Authorization (Routine) - Closed Specialty Diagnoses / Procedures Referred By Contac t Referred To Contact Diagnoses Need for Tdap vaccination Se Veliz MD [address] [address] Phone: tel: fax: Referral ID Status Reason Start Date Expiration Date Visits Re quested Visits Authorized [id number] Closed 05/17/2021 06/16/2022 1 1 D EVIDENCE TECHNICIAN Reason for Visit * Reason Comments Routine Visit * Medication Authorization (Routine) - Closed Specialty Diagnoses / Procedures Referred By Contac t Referred To Contact Diagnoses Need for Tdap vaccination Se Veliz MD [address] [place] [address] Phone: tel: fax: Referral ID Status Reason Start Date Expiration Date Visits Re quested Visits Authorized [id number] Closed 05/17/2021 06/16/2022 1 1 Encounter Details Date Type Department Care Team (Late st Contact Info) Description 05/17/2021 1:30 PM FIELD EVIDENCE TECHNICIAN Office Visit Obstetrics and Gynecology Clinic [address] [facility] 3rd Floor [address] [place] [address] Harika Abrams MD [address] [phone] [place], [place] [id number] Se Veliz MD [address] [address] Supervision of other normal , antepartum (Primary Dx); Maternal obesity affecting , antepartum; Elevated blood pressure affecting , antepartum; Family history of neural tube defect; Rh negative state in antepartum period; Need for Tdap vaccination Discharge Disposition: Discharge to home or self care Social History Tobacco Use Types Packs/Day Years Used Date Smoking Tobacco: Never Smokeless Tobacco: Never Alcohol Use Standard Drinks/Week Comments No 0 (1 standard drink = 0.6 oz pur e alcohol) Comments Yes Sex and Gender Information Value Date Recorded Sex Assigned at Not on file Legal Sex Female 11:28 PM FIELD EVIDENCE TECHNICIAN Gender Identity Not on file Sexual Orientation Not on file documented as of this encounter Last Filed Vital Signs Vital Sign Reading Time Taken Comments Blood Pressure 119/80 05/17/2021 1:47 PM FIELD EVIDENCE TECHNICIAN Pulse 83 05/17/2021 1:45 PM FIELD EVIDENCE TECHNICIAN Temperature 36.3 ??C (97.3 ??F) 05/17/2021 1:45 PM CS T Respiratory Rate 18 05/17/2021 1:45 PM FIELD EVIDENCE TECHNICIAN Oxygen Saturation 98% 05/17/2021 1:45 PM FIELD EVIDENCE TECHNICIAN Inhaled Oxygen Concentration - - Weight 128.5 kg (283 lb 4.8 oz) 05/17/2021 1:45 PM FIELD EVIDENCE TECHNICIAN Height 165.1 cm (5' 5 ) 05/17/2021 1:45 PM FIELD EVIDENCE TECHNICIAN Body Mass Index 47.14 05/17/2021 1:45 PM FIELD EVIDENCE TECHNICIAN documented in this encounter Patient Instructions * Patient Instructions* Se Veliz MD - 05/17/2021 1:30 PM FIELD EVIDENCE TECHNICIAN Contact us Office hours: Monday-Monday 8:30 AM-4:30 PM Phone number: [phone] Daytime: Call us if you have questions [...] medical problem, you can call us at [phone]. Please wait until the clinic is open for non-urgent needs as this emergency line cannot help with appointments, paperwork or prescriptions. If you have an emergency and cannot wait, please call 911 or go to the [facility] Emergency room. If you are having a problem with your or are in labor you can go to the [facility] (check in near elevator on first floor) [address] [facility], 5th [place] [address]. D EVIDENCE TECHNICIAN documented in this encounter Discharge Disposition Disposition Code Departure Means Destination Discharge to home or self care documented in this encounter Progress Notes * Shaunna Smith RN - 05/17/2021 1:30 PM CST Pt received Rho Ricardo injection. Pt tolerated well. Pt to have blood work including a type and screendone at check out. This is OK'd by Dr. Abrams. D EVIDENCE TECHNICIAN * Se Veliz MD - 05/17/2021 1:30 PM CST OB RETURN VISIT 05/17/2021 Subjective: Mary Licona is a 21 y.o. at 30w0d who presents for her return OB visit. She notes a mild headache in the past weeks that comes and goes, and she also notes epistaxis for a few days last week that subsequently resolved spontaneously. movement: Y VB?: N LOF?: N Ctxns? N Objective: Vitals: 05/17/21 1345 05/17/21 1347 BP: 143/81 119/80 BP Location: Right arm Right arm Patient Position: Sitting Sitting Pulse: 83 Resp: 18 Temp: 36.3 ??C (97.3 ??F) TempSrc: Temporal SpO2: 98% Weight: 283 lb 4.8 oz (128.5 kg) Height: 165.1 cm (5' 5 ) Gen: No acute distress. Abdomen: Soft, nontender, gravid. Extremities: Warm, well perfused. No lower extremity edema/erythema/tenderness. FHT: 130s FH: 33 obese Assessment/Plan: 21 y.o. at 30w0d. Problem List Gravid and Elevated blood pressure affecting , antepartum Overview - BP 143/81 on arrival, 119/80 on recheck - Will send preE labs 05/17/21 Plan: [] CTM BP closely Relevant Orders Comprehensive metabolic panel (Completed) Protein / creatinine ratio, urine, random (Completed) CBC without differential (Completed) eGFR (Completed) Maternal obesity affecting , antepartum - Primary Overview - BMI 38 - A1c 03/2020 4.6 - GTT 91 Plan: [] Routine PNC Relevant Orders Type and screen (Completed) Rh negative state in antepartum period Overview [...] Shot (Feb-Apr) [x] Tdap (27-36wks): given 05/18/21 [] Rhogam (if Rh neg): given 05/17/21 Third Trimester: [] CBC/HIV/RPR/T&S [] GBS [] GC/CT (if indicated) Counseling [x] Method of delivery: Ant vaginal [x] Method of contraception: Considering LARC [x] Method of feeding: Plans breast [] Direct Marketing Representative: [] Car seat: [] PP Depression Counseling [] Attg visits (/) Relevant Orders POCT urinalysis dipstick (Completed) Type and screen (Completed) Comprehensive metabolic panel (Completed) Protein / creatinine ratio, urine, random (Completed) CBC without differential (Completed) HIV 1/2 Antibody plus p24 Antigen (Completed) RPR (Completed) eGFR (Completed) Neuro Family history of neural tube [...] delivery and prior to subsequent pregnancies RTC 2 weeks Patient seen and discussed with Dr. Abrams. Se Veliz MD PGY-4 (PLASTICS ENGINEERING TEACHER) [phone] Cosigned by Harika Abrams MD at 05/18/2021 4:11 PM FIELD EVIDENCE TECHNICIAN D EVIDENCE TECHNICIAN D EVIDENCE TECHNICIAN D EVIDENCE TECHNICIAN Associated attestation - Harika Abrams MD - 05/18/2021 4:11 PM FIELD EVIDENCE TECHNICIAN I have seen and examined the patient. I agree with the findings and plan of care as documented in the resident/fellow's note. documented in this encounter Plan of Treatment Not on file documented as of this encounter Procedures Procedure Name Priority Date/Time Associated Diagnosis Comments PROTEIN / CREATININE RATIO, URINE, RANDOM Routine 05/17/2021 2:35 PM FIELD EVIDENCE TECHNICIAN Supervision of other normal , antepartum Elevated blood pressure affecting , antepartum EGFR Routine 05/17/2021 2:25 PM FIELD EVIDENCE TECHNICIAN Supervision of other normal , antepartum Elevated blood pressure affecting , antepartum HIV 1/2 ANTIBODY PLUS P24 ANTIGEN Routine 05/17/2021 2:25 PM FIELD EVIDENCE TECHNICIAN Supervision of other normal , antepartum RPR Routine 05/17/2021 2:25 PM FIELD EVIDENCE TECHNICIAN Supervision of other normal , antepartum CBC WITHOUT DIFFERENTIAL Routine 05/17/2021 2:25 PM FIELD EVIDENCE TECHNICIAN Supervision of other normal , antepartum Elevated blood pressure affecting , antepartum TYPE AND SCREEN Routine 05/17/2021 2:25 PM FIELD EVIDENCE TECHNICIAN Supervision of other normal , antepartum Maternal obesity affecting , antepartum COMPREHENSIVE METABOLIC PANEL Routine 05/17/2021 2:25 PM FIELD EVIDENCE TECHNICIAN Supervision of other normal , antepartum Elevated blood pressure affecting , antepartum POCT URINALYSIS DIPSTICK Routine 05/17/2021 1:46 PM FIELD EVIDENCE TECHNICIAN Supervision of other normal , antepartum documented in this encounter Results * Protein / creatinine ratio, urine, random (05/17/2021 2:35 PM FIELD EVIDENCE TECHNICIAN) Protein, ur, quant <5.0 mg/dL [facility] Comment: Interpretive Data No reference range established. Current interpretive data was last revised 2018. Creatinine Ur 18.8 mg/dL [facility] Comment: Interpretive Data No reference range established. Current interpretive data was last revised 2018. Protein/creatini ne ratio See Comment 0.0 - 180.0 mg/g CR [facility] Comment:Unable to Calculate Urine 05/17/2021 2:35 PM FIELD EVIDENCE TECHNICIAN 05/17/2021 4:36 PM FIELD EVIDENCE TECHNICIAN Se Veliz MD LAB URINE ORDERABLES Fin al Result [facility] Department [place] [address] * (ABNORMAL) eGFR (05/17/2021 2:25 PM FIELD EVIDENCE TECHNICIAN) eGFR >90(H) 90 - 130 mL/min/1. 73 m2 [facility] Comment: Interpretive Data Reference Interval Normal ?>/= [...] interpretive data was last reviewed 2021. Blood 05/17/2021 2:25 PM FIELD EVIDENCE TECHNICIAN 05/17/2021 3:03 PM FIELD EVIDENCE TECHNICIAN us Se Veliz MD LAB BLOOD ORDERABLES Fin al Result Performing Organization Address [facility] [place] [address] * RPR (05/17/2021 2:25 PM FIELD EVIDENCE TECHNICIAN) [facility] RPR Nonreactive Nonreactive [facility] Blood 05/17/2021 2:25 PM FIELD EVIDENCE TECHNICIAN 05/17/2021 2:55 PM FIELD EVIDENCE TECHNICIAN Se Veliz MD LAB MICROBIOLOGY - GENER AL ORDERABLES Final Result Performing Organization Address [facility] [place] [address] * HIV 1/2 Antibody plus p24 Antigen (05/17/2021 2:25 PM FIELD EVIDENCE TECHNICIAN) [facility] HIV 1/2 ab + p24 ag Nonreactive Nonreactive [facility] Comment: Nonreactive for HIV-1 antigen and HIV-1/HIV-2 antibodies. No laboratory evidence of HIV infection. If acute HIV infection is suspected, consider testing for HIV-1 RNA. Blood 05/17/2021 2:25 PM FIELD EVIDENCE TECHNICIAN 05/17/2021 2:55 PM FIELD EVIDENCE TECHNICIAN Se Veliz MD LAB MICROBIOLOGY - GENER AL ORDERABLES Final Result Performing Organization Address [facility] de Phone Number [facility] [place] [place] [address] * (ABNORMAL) CBC without differential (05/17/2021 2:25 PM FIELD EVIDENCE TECHNICIAN) [facility] WBC 7.4 3.8 - 9.9 K/cumm [facility] Hgb 11.5(L) 11.9 - 15.5 g/dL [facility] Hct 34.2(L) 35.6 - 45.5 % [facility] Plt 198 150 - 400 K/cumm [facility] MPV 10.1 9.1 - 12.3 fL [facility] RBC 3.71(L) 3.90 - 5.20 M/cumm [facility] MCV 92.2 81.3 - 96.4 fL [facility] MCH 31.0 27.1 - 33.3 pg [facility] MCHC 33.6 32.3 - 35.7 g/dL [facility] RDW CV 12.9 11.1 - 14.9 % [facility] RDW SD 43.7 35.7 - 48.1 fL [facility] NRBC abs 0.00 0.00 - 0.01 K/cumm [facility] Blood 05/17/2021 2:25 PM FIELD EVIDENCE TECHNICIAN 05/17/2021 2:55 PM FIELD EVIDENCE TECHNICIAN us Se Veliz MD LAB BLOOD ORDERABLES Fin al Result [facility] [address] [facility] Department [place] [address] * (ABNORMAL) Comprehensive metabolic panel (05/17/2021 2:25 PM FIELD EVIDENCE TECHNICIAN) Sodium 139 135 - 145 mmol/L [facility] Potassium, pl 4.0 3.3 - 4.9 mmol/L [facility] Chloride 105 97 - 110 mmol/L [facility] CO2 23 22 - 32 mmol/L [facility] Anion gap 11 2 - 15 mmol/L [facility] BUN 6(L) 8 - 25 mg/dL [facility] Creatinine 0.41(L) 0.60 - 1.10 mg/dL [facility] Glucose 77 70 - 199 mg/dL [facility] Comment: Interpretive Data Fasting glucose >/= 126 [...] interpretive data was last revised 2017. Calcium 9.2 8.5 - 10.3 mg/dL [facility] Bilirubin, total 0.3 0.1 - 1.2 mg/dL [facility] Protein, pl 7.5 6.5 - 8.5 g/dL [facility] Albumin 4.1 3.5 - 5.0 g/dL [facility] Alk phos 85 40 - 130 Units/L [facility] ALT 29 7 - 45 Units/L [facility] AST 22 10 - 45 Units/L [facility] Blood 05/17/2021 2:25 PM FIELD EVIDENCE TECHNICIAN 05/17/2021 2:54 PM FIELD EVIDENCE TECHNICIAN Se Veliz MD LAB BLOOD ORDERABLES Fin al Result Performing Organization Address City/[facility]/ZIP Co de Phone Number [facility] [place] [address] * Type and screen (05/17/2021 2:25 PM FIELD EVIDENCE TECHNICIAN) ABO Rh O Negative [facility] Jorge, indirect Negative [facility] Blood 05/17/2021 2:25 PM FIELD EVIDENCE TECHNICIAN 05/17/2021 3:01 PM FIELD EVIDENCE TECHNICIAN Narrative [facility] - 05/17/2021 4:24 PM FIELD EVIDENCE TECHNICIAN Has the patient had Daratumumab or Isatuximab in the past 6 months?->Unknown Se Veliz MD LAB BLOOD BANK TEST ORDE RABLES Final Result [facility] [place] [address] * POCT urinalysis dipstick (05/17/2021 1:46 PM FIELD EVIDENCE TECHNICIAN) Glucose, ur, POC Negative Negative mg/dL Ketones, ur, POC Negative Negative Blood, ur, POC Negative Negative Protein, ur, POC Negative Negative Nitrite, ur, POC Negative Negative Leukocytes, ur, POC Negative Negative Lot Number [id number] Urine 05/17/2021 1:46 PM FIELD EVIDENCE TECHNICIAN Se Veliz MD POINT OF CARE TEST ORDER CHILO Final Result documented in this encounter Visit Diagnoses Diagnosis Supervision of other normal , antepartum- Primary Maternal obesity affecting , antepartum Elevated blood pressure affecting , antepartum Family history of neural tube defect Rh negative state in antepartum period Need for Tdap vaccination Need for prophylactic vaccination with combined absfhiemii-dcwffiq-qtfshmekt (DTP) vaccine documented in this encounter Administered Medications Inactive Administered Medications - up to 3 most recent administrations Medication Order MAR Action Action Date Dose Rate Site Rho(D) immune globulin (HyperRHO S/D, RhoGAM) injection 300 mcg 300 mcg, intramuscular, Once, On 05/17/21 at 1415, For 1 dose, Refrigerate, Indications: Prevention of Alloimmunization at 28 Weeks GestationIndications:Preventi on of Alloimmunization at 28 Weeks Gestation Given 05/17/2021 2:15 PM FIELD EVIDENCE TECHNICIAN 300 mcg Right Deltoid documented in this encounter Orders Medications Ordered That Quincy ht Not Have Been Administered Count Last Ordered Date First Ordered Date Tdap (BOOSTRIX) 2.5-8-5 Lf-m cg-Lf/0.5mL vaccine 0.5 mL 1 05/17/2021 documented in this encounter Care Teams Ship Superintendent Relationship Specialty Start Date End Date Venecia Turner MD [address] [place] [address] DR LEXIE Gramajo [facility] [address] [place] [address] PCP - General 12/11/19 07/21/21 Jarred Roy MD [address] [facility] [address] [place] [address] 01/30/19 Elma Echevarria NP [address] [place] [address] DR LEXIE Gramajo [facility] [address] [place] [address] Nurse Practitioner General Surgery 12/16/19 documented as of this encounter
--- OUTSIDE RECORDS SUMMARY | 2024-05-10 20:17 | XMS_ITS | Encounter Summary ---
Author Organization [facility] Healthcare Address [address] [place] [address] Care Team Providers Care Acquisition Marketing Coordinator Name Role Phone Jarred Roy MD Unavailable [phone] Venecia Turner MD Primary Care Provider [phone] Elma Echevarria NP Unavailable Reason for Referral * (Routine) - Closed Specialty Diagnoses / Procedures Referred By Contac t Referred To Contact Diagnoses Supervision of other normal , antepartum Procedures Labor Induction - Se Veliz MD Phone: tel: fax: [address] [phone] Referral ID Status Reason Start Date Expiration Date Visits Re quested Visits Authorized [id number] Closed 06/23/2021 07/23/2022 1 1 Reason for Visit * Reason Comments Scheduled Induction Encounter Details Date Type Department Care Team (Latest Contact Info) Description 07/19/2021 8:10 AM CDT - 07/21/2021 3:21 PM CDT Hospital Encounter [address] [phone] Amanda Dent MD [address] [facility] [phone] [place] [address] Jovan Healy MD [address] [id number] [place] [address] Encounter for induction of labor (Primary Dx); Supervision of other normal , antepartum Discharge Disposition: Discharge to home [...] week 07/21/2021 How often do you attend [facility] or pentecostalism services? Never 07/21/2021 Do you belong to any clubs o r organizations such as jew groups, unions, fraternal or athletic groups, or [...] senior care (including now)? No 07/21/2021 Comments No Sex and Gender Information Value Date Recorded Sex Assigned at Not on file Legal Sex Female 11:28 PM [employer] Gender Identity Not on file Sexual Orientation Not on file documented as of this encounter Last Filed Vital Signs Vital Sign Reading Time Taken Comments Blood Pressure 115/60 07/21/2021 7:55 AM CDT Pulse 90 07/21/2021 7:55 AM CDT Temperature 36.5 ??C (97.7 ??F) 07/21/2021 7:50 AM CD T Respiratory Rate 18 07/21/2021 7:55 AM CDT Oxygen Saturation 95% 07/21/2021 7:55 AM CDT Inhaled Oxygen Concentration - - Weight - - Height - - Body Mass Index - - documented in this encounter Discharge Diagnoses Diagnosis Obesity complicating childbirth - OBESITY COMPLICATING CHILDBIRTH Single live - SINGLE LIVE Encounter for immunization - ENCOUNTER FOR IMMUNIZATION 39 weeks gestation of - 39 WEEKS GESTATION OF Other immediate hemorrhage - OTHER IMMEDIATE HEMORRHAGE First degree perineal laceration during delivery - FIRST DEGREE PERINEAL LACERATION DURING DELIVERY Morbid (severe) obesity due to excess calories (HCC) - MORBID (SEVERE) OBESITY DUE TO EXCESS CALORIES Streptococcus B carrier state complicating childbirth - STREPTOCOCCUS B CARRIER STATE COMPLICATING CHILDBIRTH Abnormality in heart rate and rhythm complicating labor and delivery - ABNORMALITY IN HEART RATE AND RHYTHM COMPLICATING LABOR AND DELIVERY Other specified complications of labor and delivery - OTHER SPECIFIED COMPLICATIONS OF LABOR AND DELIVERY Elevated blood-pressure reading, without diagnosis of hypertension - ELEVATED BLOOD-PRESSURE READING, WITHOUT DIAGNOSIS OF HYPERTENSION Contact with and (suspected) exposure to covid-19 - CONTACT WITH AND (SUSPECTED) EXPOSURE TO COVID-19 Type O blood, Rh negative - TYPE O BLOOD, RH NEGATIVE documented in this encounter Discharge Summaries * Suyapa Nava MD - 07/21/2021 7:50 AM CDT Inpatient Discharge Summary BRIEF OVERVIEW Admitting Provider: Jovan Healy MD Discharge Provider: Jovan Healy MD Primary Care Physician at Discharge: Venecia Turner MD [phone] Admission Date: 07/19/2021 Discharge Date: 07/21/2021 Admission Location: [facility] Problems/Diagnoses: Active Problems: state Resolved Problems: No resolved hospital problems. DETAILS OF HOSPITAL STAY Presenting Problem/History of Present Illness: HPI: Mary Licona is a 21 y.o. female at 39w0d gestation, dated by 1st trimester ultrasound ?? Her is complicated by: elevated blood pressure (not yet meeting criteria for gestational hypertension), morbid obesity, Rh negative, Rubella non-immune, Varicella non-immune, abnormal pap, h/o LUND. ?? Pt doing well today, no complaints. ?? Patient Denies: [x]? Contractions [x]? Shortness of Breath [x]? Nausea/Vomitting [x]? Vaginal Bleeding [x]? Headache [x]? Abdominal Pain [x]? Leaking of Fluid [x]? Visual changes [x]? Decreased Movement Hospital Course: Mary Licona is a 21 y.o. female at 39w1d weeks gestation, dated by 1st trimester ultrasound with Estimated Date of Delivery: 07/26/21. Her was notable for elevated blood pressure(not yet meeting criteria for gestational hypertension), morbid obesity, Rh negative, Rubella non-immune, Varicella non-immune, abnormal pap, h/o LUND.. Vertex presentation and GBS positive confirmed on admission. She presented for induction of labor. Her induction was started with misoprostol and cook catheter. Epidural was placed for anesthesia. Patient progressed to complete and delivered a viable female with apgars 8 and 9 at one and five minutes of life respectively. Delivery was complicated by hemorrhage . See L&D delivery note for full details. The patient was transferred to . Her course was uncomplicated. Prior to discharge, her pain was well controlled, she was voiding, passing gas, ambulating, and meeting all post milestones. # ID: Afebrile. No signs/symptoms of infection. #COVID-19: Negative #Rubella/varicella NI: MMR given. Varivax held until PP visit # Heme: EBL 900 mL, QBL 1639 mL. Hb 11.4->10.3 PPD#1. No symptoms acute blood loss anemia. # Rh neg: Rhogam given 07/20. # CV/Pulm: Vital signs stable, within normal [...] delivery d/t excessive vaginal bleeding requiring uterotonics; chose 6 wk PP IUD for MOC. # Covid: vaccine given # Mother/Baby: The patient has chosen to breastfeed her and has chosen 6wk IUD for contraception. Active Issues Requiring Follow-up: Varivax Test Results Pending at Discharge: none Operative Procedures Performed: none Other Procedures: none Pertinent Test Results: none Discharge Details Physical Exam at Discharge: Discharge Condition: good Pulse: 90 Resp: 18 BP: 115/60 Temp: 36.5 ??C (97.7 ??F) Weight: Pertinent Exam Findings at Discharge: see daily progress note Discharge Disposition: Code Status at Discharge: full code Discharge Instructions: See AVS Discharge Medications: Current Medications TAKE these medications albuterol HFA 90 mcg/actuation inhaler albuterol sulfate HFA 90 mcg/actuation aerosol inhaler Commonly known as: PROVENTIL HFA,VENTOLIN HFA,PROAIR HFA fluticasone propionate 50 mcg/actuation nasal spray fluticasone propionate 50 mcg/actuation nasal spray,suspension Commonly known as: FLONASE folic acid 1 mg tablet Take 1 tablet (1 mg total) by mouth daily Commonly known as: FOLVITE 28-800 mg-mcg tablet daily Generic drug: [id number] fumarate-FA Outpatient Follow-Up: 2-6 week follow up Cosigned by Jovan Healy MD at 07/21/2021 2:55 PM CDT documented in this encounter Discharge Instructions * Discharge Instructions* Suyapa Nava MD - 07/21/2021 7:53 AM CDT Images from the original note were not included. Discharge Instructions - Vaginal Delivery In order to minimize social contact during COVID19 precautions, your visit maybe over the phone. Please remember to wash your hands frequently, do not touch your face, and avoid anyone with feversor cough. Stay at home as much as possible and practice social distancing. COVID19 Precautions: * Wash your hands frequently * Do not touch your face * Avoid anyone with fevers or cough * DO NOT come to clinic or the hospital with mild cold or flu-like symptoms, first call our OB communication center at [phone]. * If you have SEVERE illness including [...] bottle for the next 5-7 days. Contraception: DESIRES IUD: The intrauterine device (IUD) can be placed 4 to 6 weeks after delivery. Make an appointment to have it placed with your doctor. You can get within 2 weeks of giving , though we recommend no sexual intercourse for at least 6 weeks. Consider using a different method of control while you are waiting for your IUD. LACTATIONAL AMENORRHEA can be an effective method [...] of those things are no longer true. Feeding: : Follow unrestricted . Feed your baby based on baby's hunger cues (or atleast 8-12 feedings per 24 hours). Do NOT supplement unless instructed by Billing Manager. Call your Billing Manager if your baby has poor eating habits (examples: feedings decrease, no feedings in 6 hours, or spits up more than ?? of their feeding for 2 consecutive feedings). Once your baby is 5-6 days old, you should expect at least 5 wet diapers and 3 soiled diapers per day. Outpatient Follow Up: Every patient needs a visit. We are currently scheduling some in person and some telemedicine visits for your visits. We are trying to keep you safe and minimize social contact due to COVID19 precautions. A member of our team will reach out by phone to check in with you in the next 2-6 weeks. If you do not hear from our office please call your primary provider to set up either an in person or phone appointment. Thank you for understanding and remember to wash your hands and avoid anyone with fevers or cough. Stay at home as much as possible and practice socialdistancing. If you yourself develop fever >100.4F, a new cough, or shortness of breath please call our centralized OB communication center at [phone]. Do not come to the hospital or clinic until you speak with a provider. Contact Information for your primary OB: *[facility] - [address] [place] [address] Call to schedule an appointment in 2-6 weeks. No future appointments. High blood pressure problems during & after [...] should call the doctor if you experience: terminal makeup operator risks of preeclampsia If you had preeclampsia [...] list ASK your doctor about these medications albuterol HFA 90 mcg/actuation inhaler Commonly known as: PROVENTIL HFA,VENTOLIN HFA,PROAIR HFA fluticasone propionate 50 mcg/actuation nasal spray Commonly known as: FLONASE folic acid 1 mg tablet Take 1 tablet (1 mg total) by mouth daily Commonly known as: FOLVITE 28-800 mg-mcg tablet Generic drug: [id number] fumarate-FA documented in this encounter Medications at Time of Discharge acetaminophen 500 mg capsuleIndicatio ns:Fever,Pain Take 2 capsules (1,000 mg total) by mouth every 6 (six) hours as needed for pain 60 tablet 07/21/2021 10/05/202 2 albuterol HFA (PROVENTIL HFA,VENTOLIN HFA,PROAIR HFA) [...] Refills Last Filled Start Date End Date polyethylene glycol (MIRALAX) 17 gram packetIndications :constipation Take 1 packet (17 g total) by mouth daily as needed for constipation 20 packet 07/21/2021 2 ibuprofen (ADVIL,MOTRIN) 600 mg tabletIndications :Cramps Take 1 tablet (600 mg total) by mouth every 6 (six) hours as needed for pain 60 tablet 07/21/2021 2 docusate sodium (COLACE) 100 mg capsuleIndication s:constipation,St ool Softener Take 1 capsule (100 mg total) by mouth 2 (two) times a day 60 capsule 07/21/2021 2 acetaminophen 500 mg capsuleIndication s:Fever,Pain Take 2 capsules (1,000 mg total) by mouth every 6 (six) hours as needed for pain 60 tablet 07/21/2021 2 documented in this encounter Discharge Disposition Disposition Code Departure Means Destination Discharge to home or self care documented in this encounter Progress Notes * Mohinder Joe MD - 07/21/2021 2:28 PM CDT Transfusion Medicine Blood Bank Note Patient Information: ABO/Rh: O negative Antibody screen: Positive Previous antibodies: No known antibodies Antibodies identified: passive anti-D Additional testing performed: None} Relevant Patient History: 21yo now s/p c/b PPH not requiring transfusion. Testing Information: The antibody screen was positive. Antibody identification demonstrated antibodies against the D antigen in the patient's plasma. Additional testing was not performed. Detection of anti-D in this patient's plasma is consistent with the patient's known history of RhIgadministration on 05/17/21 and is therefore categorized as a passive anti-D. All common, clinically significant antibodies have been ruled out. Clinical Relevance: RhIg is a biologic prepared from human plasma that consists of concentrated antibodies directed against the D antigen on red blood cells. Anti-D antibodies may be implicated in hemolytic transfusion reactions with extravascular hemolysis and hemolytic disease of the fetus and . Therefore, anti-D antibodies attributable to RhIg administration may generally be considered clinically significant as long as the passively acquired anti-D is present in the patient's plasma. Therapeutic Relevance: ABO/Rh and crossmatch compatible red blood cell units will be provided for future transfusions. Contact Information: Please contact the [facility] Blood Bank with any questions. This report has been prepared by: Mohinder Joe MD Cosigned by Genesis Peña MD at 07/21/2021 4:01 PM CDT Associated attestation - Genesis Peña MD - 07/21/2021 4:01 PM CDT Attestation: I have personally reviewed the antibody result and agree with the interpretation contained in this written blood bank report. Genesis Peña MD * Deanne Drake BLUEPRINTING AND PHOTOCOPY SUPERVISOR - 07/21/2021 11:38 AM CDT Reason for Admission MOB (Mary Licona 2000) was admitted on 07/19/2021 for OB TRIAGE. 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 Pediatric follow-up to be scheduled with Dr. Salomon. Medical insurance coverage is through [facility]. Information Baby girl was born on 07/20/2021 at EGA 39.1 weeks and has been named Kerry. Delivery was Vaginal, Spontaneous . weighed 6lbs 15.1oz at delivery. will be breast/formula fed. This is mother's 1st child. Social History Current address is [address] [place] [address], where she lives with her mother. Currently [phone] (home) is the best phone number for future contact. MOB reports that her mother, sister, and SO will be a positive support for her and her child. Father of the baby, Celena, has been present and supportive at the hospital. Mood and Anxiety Mary Licona and her mother, Jazzy, engaged in conversation with SW about transitions about being a new mom and a first time mom. Extensive conversation about story, breast feeding anxiety, and life transition. Social Work and Mary Licona discussed the signs and symptoms of Mood and Anxiety Disorder. Social Work discussed and normalized increase in emotions and the importance of self-care. Social Work encouraged new mom to take time for herself and utilize supports available. Available support systems reviewed, including: SO, family. Warning signs reviewed and MOB encouraged to seek medical and mental health treatment if symptoms arise including possible medication management. MOB engaged in conversation and demonstrates knowledge. Informational handout given. Resources Provided and Goals Addressed Social Determinants of Health: Safe Sleep education provided including the importance of sleeping alone, flat on their back, in their own basinet/crib for the first year. SW ensured that Mary Licona has a crib/basinet/pack n play for safe sleep of . Family has diapers, bottles, clothing, and car seat for . Family reports no barriers to accessing food. Strengths MOB is open and receptive to [...] support and additional needs should they arise. Deanne Drake, MANAGER CASINO, BLUEPRINTING AND PHOTOCOPY SUPERVISOR [facility] * Suyapa Nava MD - 07/21/2021 5:38 AM CDT Post Progress Note Delivery Date/Time: 07/20/2021 at 5:11 AM Delivery method: Vaginal, Spontaneous [250] Obstetrical/Medical Problems: Medical Conditions Diagnosis ??? Closed nondisplaced fracture of medial cuneiform of right foot ??? Obesity ? Rh negative state in antepartum period ??? Family history of neural tube defect ??? Elevated blood pressure affecting , antepartum ??? Acute sinusitis ??? Astigmatism ??? Erbo-ps-gnyu spots ??? Chronic daily headache ??? Facial swelling ??? Iron deficiency ??? Loss of hair ??? Migraine ??? Urinary tract infectious disease ??? Vitamin D deficiency ??? state Subjective Flatus: Yes Pain: Well controlled Diet: Tolerating regular diet. Ambulating independently Voiding spontaneously Lochia less than menses Scheduled Medications docusate sodium, 100 mg, oral, BID enoxaparin, 40 mg, subcutaneous, Q12H GRANT viatmin, 1 tablet, oral, Daily PRN Medications ??? acetaminophen ??? benzocaine-menthoL ??? calcium carbonate ??? COVID-19 mRNA,[id number] ??? hydrocortisone ??? ibuprofen ??? influenza quadrivalent [id number] ??? npsdzxp-[id number] ??? ondansetron ODT OR ondansetron ??? polyethylene glycol ??? prochlorperazine Vitals: Temp: [36.7 ??C (98.06 ??F)-36.8 ??C (98.24 ??F)] 36.8 ??C (98.24 ??F) Pulse: [76-98] 97 BP: (95-125)/(53-63) 117/63 Resp: [16-18] 18 SpO2: [97 %-100 %] 100 % Intake/Output Summary (Last 24 hours) at 07/21/2021 0632 Last data filed at 07/20/2021 1100 Gross per 24 hour Intake 2073.34 ml Output 1639 ml Net 434.34 ml Physical Exam General: No acute distress. Cardiovascular: Regular rate and rhythm. Lungs: Non-labored. Clear to auscultation bilaterally. Abdomen: Soft, non-distended, non-tender to palpation. Fundus below umbilicus. Extremities: Warm and well-perfused. Neuro: Globally intact Recent Labs Lab Units 07/20/21 1334 07/19/21 1156 07/19/21 0906 WBC K/cumm 15.4* -- 8.6 HEMOGLOBIN g/dL 10.3* -- 11.4* HEMATOCRIT % 30.5* -- 34.4* PLATELETS K/cumm 210 -- 239 CREATININE mg/dL -- -- 0.47* AST Units/L -- -- 20 ALT Units/L -- -- 21 PROTEIN/CREAT RATIO mg/g CR -- See Comment -- GLUCOSE mg/dL -- -- 80 Labs: Lab Results Component Value Date ABORH O Negative 07/20/2021 IDCOOMB Positive (A) 07/19/2021 [id number] Nonreactive 05/17/2021 LABRPR Nonreactive 07/19/2021 Rubella Non-immune Varicella NI Assessment and Plan 21 y.o. PPD#1 c/b PPH Problem state # ID: Afebrile. No signs/symptoms of infection. [...] discharge # MOF: # COVID Vaccination Status: Not assessed # Disposition: Follow up task not sent. Continue routine care. Pt prefers discharge today if baby is cleared by peds. Suyapa Nava MD 07/21/21 Agree with above documentation. Pt s/p heavy vaginal bleeding s/p delivery with EBL 900 mL, QBL ~1600 mL and day 1 CBC more consistent with EBL. Vaginal bleeding as expected PPD#1. S/p rhogam administration, will hold on Varivax and MMR until 2-4 weeks . BPs normotensive s/p delivery. Will readdress a BCM prior to discharge. Iris Gómez MD, PGY-4 Cosigned by Jovan Healy MD at 07/21/2021 1:17 PM CDT Associated attestation - Jovan Healy MD - 07/21/2021 1:17 PM CDT I have seen and examined the patient on 07/21/21. I agree with the findings and plan of care as documented in the resident's/fellow's note.. * Linnette Garcia MD - 07/20/2021 4:10 AM CDT R2 update Patient complete and -1 station, will start pushing shortly. Linnette Garcia MD [id number] Addendum BSUS performed and fetus direct OP. Patient pushing well, from -1 to +1 station over ~20 minutes ofpushing. Will cont efforts at this time without attempted manual rotation. Linnette Garcia MD * Brady Wu MD - 07/20/2021 3:49 AM CDT R1 Update Note: Pt rechecked given recent rapid cervical change. SVE now 9/90/0. FHT improved and now baseline 140,moderate variability, accelerations present, no decelerations since most recent decel note at 0332.Contractions q1-3 minutes w/ pitocin paused. Will plan to keep pitocin paused and recheck in 30-60 minutes. Recommended pt call out if notices more pressure or other changes. Brady Wu MD PGY1, Department of OBGYN 07/20/21 * Brady Wu MD - 07/20/2021 3:30 AM CDT DECEL NOTE To room for decel. FHTs down to 90s. Team decel called. Pt repositioned to left lateral with improvement. SVE 8/90/0. OT paused. Terbutaline not given. FHT improved to 120s. Decel lasted [address] Dent updated. Plan: - recheck in 15 min - keep pitocin paused - if unchanged, restart pitocin as FHT tolerates Brady Wu MD * Brady Wu MD - 07/20/2021 3:25 AM CDT Labor Update Note S: Patient s/p epidural and Comfortable. IUPC just fell out. O: BP 93/50 Pulse 66 Temp 36.6 ??C (97.9 ??F) (Oral) Resp 18 SpO2 98% SVE: /0 Monitoring: Baseline: 130 bpm, Variability: Moderate, Accelerations: Present and Decelerations: Yes, intermittent deep variable and late decelerations Uterine Activity: Contractions present, q1-3 minutes A/P: 21 y.o. at 39w1d Category II tracing, reassured by variability Vitals: reviewed and normal Additional medications/infusions: oxytocin - will continue to titrate per protocol Brady Wu MD * Meka Kincaid MD - 07/20/2021 12:25 AM CDT Labor Update Note S: Patient comfortable s/p epidural O: BP 123/73 Pulse 84 Temp 36.8 ??C (98.2 ??F) (Oral) Resp 18 SpO2 100% SVE: 5.5 /75 /-2 Monitoring: Baseline: 130 bpm, Variability: Moderate, Accelerations: Present and Decelerations: None Uterine Activity: Contractions present, q2 minutes A/P: 21 y.o. at 39w1d Category 1 tracing Vitals Reviewed and normal Will start OT Meka Kincaid MD * Meka Kincaid MD - 07/19/2021 7:53 PM CDT Labor Update Note S: Patient comfortable s/p epidural O: BP 104/62 Pulse 79 Temp 36.8 ??C (98.2 ??F) (Oral) Resp 18 SpO2 97% SVE: 5.5 /75 /-3 Monitoring: Baseline: 140 bpm, Variability: Moderate, Accelerations: Present and Decelerations: None Uterine Activity: Contractions present, q1-2 minutes A/P: 21 y.o. at 39w0d Category 1 tracing Vitals Reviewed and normal Adequate contractions off OT, will start if contractions space or patient stalls Meka Kincaid MD * Iris Gómez MD - 07/19/2021 2:40 PM CDT Labor Update Note S: Patient s/p epidural and Comfortable O: BP 120/81 Pulse 82 Temp 37.1 ??C (98.7 ??F) (Oral) Resp 18 SpO2 100% SVE: 5.5 /75 /-3, AROM performed to pink-tinged fluid; Demarco bulb moved above the head; IUPC placed. Monitoring: Baseline: 130 bpm, Variability: Moderate, Accelerations: Present and Decelerations: None Uterine Activity: Contractions present, q1 minutes A/P: 21 y.o. at 39w0d Category 1 tracing Vitals: reviewed and normal Additional medications/infusions: none and antibiotics PCN q4 hrs d/t GBS+ AROM w/ IUPC placed successfully Will initiate oxytocin if able. Currently vira very frequency s/p Mx1 and AROM. Iris Gómez MD * Luis A Katz MD - 07/19/2021 1:05 PM CDT Labor Update Note - STRIP NOTE O: BP 112/70 Pulse 93 Temp 37.1 ??C (98.7 ??F) (Oral) Resp 18 SpO2 98% SVE: 1.5 /50 /-3 as of 0840 Monitoring: Baseline: 140 bpm, Variability: Moderate, Accelerations: Present and Decelerations: None Uterine Activity: No contractions seen on toco A/P: 21 y.o. at 39w0d Category 1 tracing Vitals: reviewed and normal S/p CC and misoprostol placement at 1015 Luis A Katz MD * Luis A Katz MD - 07/19/2021 10:15 AM CDT Mechanical Cervical Ripening Device Insertion Note A Cook Catheter was placed and filled with 80 cc of fluid in the uterine balloon and placed on tension at 1015. Vaginal misoprostol was also placed at this time. Luis A Katz MD documented in this encounter H&P Notes * Luis A Katz MD - 07/19/2021 8:18 AM CDT Obstetrics H&P Chief Complaint: IOL Estimated Date of Delivery: 07/26/21 [facility] HPI: Mary Licona is a 21 y.o. female at 39w0d gestation, dated by 1st trimester ultrasound Her is complicated by: elevated blood pressure (not yet meeting criteria for gestational hypertension), morbid obesity, Rh negative, Rubella non-immune, Varicella non-immune, abnormal pap, h/o LUND. Pt doing well today, no complaints. Patient Denies: [x] Contractions [x] Shortness of [...] Sex Delivery Anes PTL Lv 1 Current GOLD TOOLER History: No LMP recorded. Patient is . History of Abnormal Pap: Yes, LSIL 06/2020 STD History: none Past Medical History: Diagnosis [...] Sexual activity: Defer Support System: Supported by fiance/FOB Safe at home: Yes family history includes Hypertension in her father; Other in her mother. Family history of bleeding or clotting disorders: No Family history of defects, genetic disorders, or developmental delay: No No Known Allergies HOME MEDICATIONS : albuterol HFA (PROVENTIL HFA,VENTOLIN HFA,PROAIR HFA) 90 mcg/actuation inhaler fluticasone propionate (FLONASE) 50 mcg/actuation nasal spray folic acid (FOLVITE) 1 mg tablet [id number] fumarate-FA () 28-800 mg-mcg tablet bacitracin (bacitracin) 500 unit/gram ointment clindamycin (CLEOCIN) 300 mg capsule mupirocin (BACTROBAN) 2 % ointment topiramate (TOPAMAX) 25 mg tablet Review of Sys: Negative except per HPI Vitals: Physical Exam: General: NAD, mood appropriate Cardiovascular: Regular rate and rhythm Pulmonary: non-labored respirations Abdomen: Gravid, non-tender Extremities: Warm and well perfused Speculum Exam: deferred Cervix: 1.5 /50 /-3 Monitoring: Baseline: 145 bpm, Variability: Moderate, Accelerations: Present and Decelerations: None Uterine Activity: baseline irritability Interpretation: Reactive Ultrasound: Vertex presentation Anterior placenta Previa: No Estimated Weight: 3200g by Shaun Labs: Lab Results Component Value Date ABORH O Negative 05/17/2021 IDCOOMB Negative 05/17/2021 [id number] Nonreactive 05/17/2021 LABRPR Nonreactive 05/17/2021 Rh neg/Ab neg/HIV nr/Rub NI/RPR nr/HepB nr/HepC unk/VZV NI/GC/CT/Trich neg GBS pos Assessment and Plan Mary Licona is a 21 y.o. female at 39w0d who is being admitted for risk reducing induction of labor. Problem Encounter for Induction of Labor 1. Risk reducing induction of labor: Admit to L&D. Consents signed and placed in chart. Send CBC/T&S. Induction of labor with Cook Catheter and misoprostol. 2. FWB: Continuous monitoring. Reactive NST 3. ID: HIV negative. GBS positive, will start penicillin. Membrane Status: intact. Rubella NI: for MMR PP Varicella NI: for varivax PP 4. H/o LUND: previously on Topamax prior to . Pt reports LUND were situational, associated with previous living situation. Occasional mild LUND during , on admission no LUND/visual changes. 5. Abnormal Pap: LSIL 06/2020, plan for pap 6. Elevated BP: x1 in clinic, baselines CMP/CBC/UPC wnl. Labs sent on admission. 7. Obesity: BMP 49 8. Rh neg: s/p Rhogam 05/17, for Rhogam workup PP 9. Indications for UDS: none. Verbal consent obtained for UDS: Not indicated 10. MOF: Plans to breastfeed. 11. MOC: Desires post placental Mirena to be placed, consents signed. 12. Pain management: Desires epidural upon request. 13. Post DVT prophylaxis: The patient has the following MAJOR risk factors BMI >/= 40 andthe following MINOR risk factors none. enoxaparin 40 mg BID will be ordered for VTE prophylaxis . 14. COVID Vaccine Status: Not previously received: patient accepts first dose, to be ordered/administered . 15. COVID Test Status: Test sent on admission Plan discussed with Dr. Gómez. Luis A Katz MD 07/19/21 Cosigned by Jovan Healy MD at 07/19/2021 11:17 AM CDT Associated attestation - Jovan Healy MD - 07/19/2021 11:17 AM CDT I have seen and examined the patient on 07/19/21. I agree with the findings and plan of care as documented in the resident's/fellow's note. Jovan Healy MD documented in this encounter Miscellaneous Notes * Note - Darlene Conroy RN - 07/21/2021 11:00 AM CDT Discussed normal behavior/cluster feedings. Patient stated she is concerned that she is notproducing enough milk for her baby and started supplementing with formula. Discussed breast milk production/maintaining milk supply, and benefits of not supplementing when not medically indicated. Enc ouraged to call for assistance as needed. * Plan of Care - Elo Proctor RN - 07/21/2021 7:51 AM CDT Goals: Clinical Goals for the Shift: VSS, pain control and rest Summary: Problem: Activity: Goal: Will verbalize the importance of balancing activity with adequate rest periods Outcome: Progressing Problem: Lack of Knowledge: Goal: Will have increased knowledge of Care Outcome: Progressing Problem: Coping: Goal: Ability to cope will improve Outcome: Progressing Goal: Ability to identify and utilize available resources and services will improve Outcome: Progressing Problem: Life Cycle: Goal: Risk for hemorrhage will decrease Outcome: Progressing Goal: Chance of risk for complications during the period will decrease Outcome: Progressing Problem: Nutritional: Goal: Dietary intake will improve Outcome: Progressing Goal: Mother's verbalization of comfort with process will improve Outcome: Progressing Problem: Role Relationship: Goal: Ability to interact appropriately with will improve Outcome: Progressing Problem: Sensory: Goal: General experience of comfort will improve Outcome: Progressing * Plan of Care - Annamaria Lyles - 07/20/2021 8:03 PM CDT Problem: Activity: Goal: Will verbalize the importance of balancing activity with adequate rest periods Outcome: Progressing Problem: Lack of Knowledge: Goal: Will have increased knowledge of Care Outcome: Progressing Problem: Coping: Goal: Ability to cope will improve Outcome: Progressing Goal: Ability to identify and utilize available resources and services will improve Outcome: Progressing Problem: Life Cycle: Goal: Risk for hemorrhage will decrease Outcome: Progressing Goal: Chance of risk for complications during the period will decrease Outcome: Progressing Problem: Nutritional: Goal: Dietary intake will improve Outcome: Progressing Goal: Mother's verbalization of comfort with process will improve Outcome: Progressing Problem: Role Relationship: Goal: Ability to interact appropriately with will improve Outcome: Progressing Problem: Sensory: Goal: General experience of comfort will improve Outcome: Progressing Goals: Clinical Goals for the Shift: VSS, pain control and rest Summary: Patient progressing well toward goals. Pain controlled on oral medication. Patient able toambulate independently and care for self and baby well. Voiding without difficulty. * Hospital Course - Suyapa Nava MD - 07/20/2021 10:23 AM CDT Mary Licona is a 21 y.o. female at 39w1d weeks gestation, dated by 1st trimester ultrasound with Estimated Date of Delivery: 07/26/21. Her was notable for elevated blood pressure(not yet meeting criteria for gestational hypertension), morbid obesity, Rh negative, Rubella non-immune, Varicella non-immune, abnormal pap, h/o LUND.. Vertex presentation and GBS positive confirmed on admission. She presented for induction of labor. Her induction was started with misoprostol and cook catheter. Epidural was placed for anesthesia. Patient progressed to complete and delivered a viable female with apgars 8 and 9 at one and five minutes of life respectively. Delivery was complicated by hemorrhage . See L&D delivery note for full details. The patient was transferred to . Her course was uncomplicated. Prior to discharge, her pain was well controlled, she was voiding, passing gas, ambulating, and meeting all post milestones. # ID: Afebrile. No signs/symptoms of infection. #COVID-19: Negative #Rubella/varicella NI: MMR given. Varivax held until PP visit # Heme: EBL 900 mL, QBL 1639 mL. Hb 11.4->10.3 PPD#1. No symptoms acute blood loss anemia. # Rh neg: Rhogam given 07/20. # CV/Pulm: Vital signs stable, within normal [...] delivery d/t excessive vaginal bleeding requiring uterotonics; chose 6 wk PP IUD for MOC. # Covid: vaccine given # Mother/Baby: The patient has chosen to breastfeed her and has chosen 6wk IUD for contraception. * Plan of Care - Elo Proctor RN - 07/20/2021 8:46 AM CDT Goals: Clinical Goals for the Shift: void,BR at least q 3-4 hours Summary: Problem: Activity: Goal: Will verbalize the importance of balancing activity with adequate rest periods Outcome: Progressing Problem: Lack of Knowledge: Goal: Will have increased knowledge of Care Outcome: Progressing Problem: Coping: Goal: Ability to cope will improve Outcome: Progressing Goal: Ability to identify and utilize available resources and services will improve Outcome: Progressing Problem: Life Cycle: Goal: Risk for hemorrhage will decrease Outcome: Progressing Goal: Chance of risk for complications during the period will decrease Outcome: Progressing Problem: Nutritional: Goal: Dietary intake will improve Outcome: Progressing Goal: Mother's verbalization of comfort with process will improve Outcome: Progressing Problem: Role Relationship: Goal: Ability to interact appropriately with will improve Outcome: Progressing Problem: Sensory: Goal: General experience of comfort will improve Outcome: Progressing * Plan of Care - Rowan Zhu RN - 07/20/2021 7:15 AM CDT Problem: Health Behavior: Goal: Understanding of discharge needs will improve Outcome: Completed Problem: Lack of Knowledge: Goal: Ability to state ways to decrease the risk of falls will improve Outcome: Completed Problem: Safety: Goal: Will remain free from falls Outcome: Completed Goal: Will remain free from injury from falls Outcome: Completed Goal: Will remain free from falls and injury in home environment Outcome: Completed Problem: Lack of Knowledge: Goal: Knowledge of disease or condition and prescribed therapeutic regimen will improve Outcome: Completed Problem: Coping: Goal: Level of anxiety will decrease Outcome: Completed Problem: Life Cycle: Goal: Will achieve delivery and avoid or minimize maternal and complications Outcome: Completed Problem: Sensory: Goal: Pain level will decrease Outcome: Completed Problem: Lack of Knowledge: Goal: Verbalization of understanding the information provided will improve Outcome: Completed Problem: Coping: Goal: Ability to identify appropriate support needs for the childbearing process will improve Outcome: Completed Goal: Ability to verbilize concerns and feelings about labor and delivery improve Outcome: Completed Problem: Life Cycle: Goal: Ability to maintain clinical measurements within normal limits will improve Outcome: Completed Goal: Ability to make normal progression through stages of labor will improve Outcome: Completed Goal: Ability to effectively push during vaginal delivery will improve Outcome: Completed Problem: Role Relationship: Goal: Ability to demonstrate positive interaction with the child will improve Outcome: Completed Problem: Safety: Goal: Chance of risk for complications during labor and delivery will decrease Outcome: Completed Problem: Sensory: Goal: Relief or control of pain from uterine contractions will improve Outcome: Completed Problem: Activity: Goal: Mobility will improve Outcome: Completed Problem: Lack of Knowledge: Goal: Understanding of ways to prevent future skin breakdown will improve Outcome: Completed Goal: Ability to identify appropriate dietary choices will improve Outcome: Completed Problem: Nutritional: Goal: Dietary intake will improve Outcome: Completed Goal: Ability to maintain a balanced intake and output will improve Outcome: Completed Problem: Skin Integrity: Goal: Risk for impaired skin integrity will decrease Outcome: Completed Goal: Ability to demonstrate warm and dry skin will improve Outcome: Completed Goal: Circulation will improve to fullest extent possible Outcome: Completed Problem: Activity: Goal: Will verbalize the importance of balancing activity with adequate rest periods Outcome: Progressing Problem: Lack of Knowledge: Goal: Will have increased knowledge of Care Outcome: Progressing Problem: Coping: Goal: Ability to cope will improve Outcome: Progressing Goal: Ability to identify and utilize available resources and services will improve Outcome: Progressing Problem: Life Cycle: Goal: Risk for hemorrhage will decrease Outcome: Progressing Goal: Chance of risk for complications during the period will decrease Outcome: Progressing Problem: Nutritional: Goal: Dietary intake will improve Outcome: Progressing Goal: Mother's verbalization of comfort with process will improve Outcome: Progressing Problem: Role Relationship: Goal: Ability to interact appropriately with will improve Outcome: Progressing Problem: Sensory: Goal: General experience of comfort will improve Outcome: Progressing Goals: Clinical Goals for the Shift: pain control, thomson with , Summary: Progressing * L&D Delivery Note - Brady Wu MD - 07/20/2021 6:01 AM CDT [facility] Vaginal Delivery Note Patient's Name: Mary Licona : 2000 Attending: Amanda Dent Assisting: Brady Wu MD, Meka Kincaid MD Clinic[facility] Primary Diagnosis: Intrauterine at 39w1d, delivered Elevated BP x 1 during Obesity Rh Negative Rubella Non-Immune Abnormal pap smear Obstetrical Medical Risk Factors: Medical Conditions Diagnosis ??? Closed nondisplaced fracture of medial cuneiform of right foot ??? Obesity ? Rh negative state in antepartum period ??? Family history of neural tube defect ??? Elevated blood pressure affecting , antepartum ??? Acute sinusitis ??? Astigmatism ??? Yspj-[id number]-aval spots ??? Chronic daily headache ??? Facial swelling ??? Iron deficiency ??? Loss of hair ??? Migraine ??? Urinary tract infectious disease ??? Vitamin D deficiency ??? Encounter for induction of labor Delivery method: Vaginal, Spontaneous [250] Anesthesia: Epidural [254] Membranes: Artificial rupture, clear fluid. Time ruptured prior to delivery: 14h 47m Antibiotics: yes, PCN for GBS prophylaxis Infant Delivery Date: 07/20/2021 Delivery Time: 5:11 AM Placenta Delivery Date & Time: 07/20/2021 5:16 AM Cord: 3 vessels [3] Delayed cord clamping: Yes, 60 seconds. Episiotomy: No Laceration: first degree ; right vaginal wall laceration EBL: 900 mL ; QBL 1639 mL : living 6 lb 15.1 oz (3.15 kg) female APGARs: 8 / 9 Disposition: [place] [facility] Labor Summary: Mary Licona is a 21 y.o. female at 39w1d weeks gestation, dated by 1st trimester ultrasound with Estimated Date of Delivery: 07/26/21. Her was notable for elevated blood pressure(not yet meeting criteria for gestational hypertension), morbid obesity, Rh negative, Rubella non-immune, Varicella non-immune, abnormal pap, h/o LUND.. Vertex presentation and GBS positive confirmed on admission. She presented for induction of labor. Her induction was started with misoprostol and cook catheter. Epidural was placed for anesthesia. Patient progressed to complete and delivered a viable female infant. The cord was clamped and cut and the baby was handed to mother for skin to skin. The third stage was actively managed with external uterine massage, gentle cord traction and pitocin.The placenta was delivered spontaneously and intact. A first degree and right vaginal wall laceration was repaired in the usual fashion. Excellent hemostasis was noted. All counts were correct beforeand after the delivery. Additional Procedures Performed: None Post-Placental IUD was not placed due to bleeding as below Description of Additional Procedure Performed: N/A Complications: None Description of Complications: hemorrhage: Following completion of delivery there was noted to be continued vaginal bleeding. Examination demonstrated uterine atony. Bimanual examination was performed with mild improvement in uterine tone. Oxytocin was administered per standard protocol. T he following agents were administered: oxytocin bolus, rectal misoprostol 800 mcg, methergine 0.2 mcg x 1, hemabate 25 mcg x 1, TXA 1g IV . At this time there was noted to be improved uterine tone and bleeding returned to minimal. At this time, continued bleeding was noted and additional evaluationwas performed. Vaginal lacerations were repaired, as per above. Evaluation of the cervix was performed with right angle and ring forceps and cervix confirmed intact without laceration. Dr. Amanda Dent was present for the delivery and additional procedures and management of complications. Brady Wu MD 07/20/21 Cosigned by Amanda Dent MD at 07/21/2021 6:00 PM CDT Associated attestation - Amanda Dent MD - 07/21/2021 6:00 PM CDT I was present for the entire procedure. * Plan of Care - Ana Lilia Mejia RN - 07/19/2021 7:18 PM CDT Goals: Problem: Health Behavior: Goal: Understanding of discharge needs will improve Outcome: Progressing Problem: Lack of Knowledge: Goal: Ability to state ways to decrease the risk of falls will improve Outcome: Progressing Problem: Safety: Goal: Will remain free from falls Outcome: Progressing Goal: Will remain free from injury from falls Outcome: Progressing Goal: Will remain free from falls and injury in home environment Outcome: Progressing Problem: Lack of Knowledge: Goal: Knowledge of disease or condition and prescribed therapeutic regimen will improve Outcome: Progressing Problem: Coping: Goal: Level of anxiety will decrease Outcome: Progressing Problem: Life Cycle: Goal: Will achieve delivery and avoid or minimize maternal and complications Outcome: Progressing Problem: Sensory: Goal: Pain level will decrease Outcome: Progressing Problem: Lack of Knowledge: Goal: Verbalization of understanding the information provided will improve Outcome: Progressing Problem: Coping: Goal: Ability to identify appropriate support needs for the childbearing process will improve Outcome: Progressing Goal: Ability to verbilize concerns and feelings about labor and delivery improve Outcome: Progressing Problem: Life Cycle: Goal: Ability to maintain clinical measurements within normal limits will improve Outcome: Progressing Goal: Ability to make normal progression through stages of labor will improve Outcome: Progressing Goal: Ability to effectively push during vaginal delivery will improve Outcome: Progressing Problem: Role Relationship: Goal: Ability to demonstrate positive interaction with the child will improve Outcome: Progressing Problem: Safety: Goal: Chance of risk for complications during labor and delivery will decrease Outcome: Progressing Problem: Sensory: Goal: Relief or control of pain from uterine contractions will improve Outcome: Progressing Problem: Activity: Goal: Mobility will improve Outcome: Progressing Problem: Lack of Knowledge: Goal: Understanding of ways to prevent future skin breakdown will improve Outcome: Progressing Goal: Ability to identify appropriate dietary choices will improve Outcome: Progressing Problem: Nutritional: Goal: Dietary intake will improve Outcome: Progressing Goal: Ability to maintain a balanced intake and output will improve Outcome: Progressing Problem: Skin Integrity: Goal: Risk for impaired skin integrity will decrease Outcome: Progressing Goal: Ability to demonstrate warm and dry skin will improve Outcome: Progressing Goal: Circulation will improve to fullest extent possible Outcome: Progressing Clinical Goals for the Shift: VSS, safe delivery of healthy baby Summary: Pt progressing towards all goals documented in this encounter Plan of Treatment Scheduled Orders Name Type Priority Associated Diagnoses Orde r Schedule Labor Induction - OB Routine Supervision of other normal , antepartum Once for 1 Occurrences starting 07/19/2021 until 07/19/2021 documented as of this encounter Procedures Procedure Name Priority Date/Time Associated Diagnosis Comments CBC WITHOUT DIFFERENTIAL Timed 07/20/2021 1:34 PM CDT RH IMMUNE GLOBULIN EVAL Timed 07/21/19 12:41 PM CDT BLEED SCREEN Timed 07/20/2021 12 :41 PM CDT ABO/RH Timed 07/20/2021 12:41 PM CDT US OB LIMITED Routine 07/19/2021 12:07 PM CDT Encounter for induction of labor PROTEIN / CREATININE RATIO, URINE, RANDOM Timed 07/19/2021 11:56 AM CDT ANTIBODY IDENTIFICATION STAT 07/20/19 10:27 AM CDT INFLUENZA A/B, RSV, AND COVID-19 PCR Routine 07/19/2021 9:06 AM CDT EGFR Timed 07/19/2021 9:06 AM CDT RPR STAT 07/19/2021 9:06 AM CDT CBC WITHOUT DIFFERENTIAL STAT 07/19/2021 9:06 AM CDT TYPE AND SCREEN STAT 07/19/2021 9:06 AM CDT COMPREHENSIVE METABOLIC PANEL Timed 07/19/2021 9:06 AM CDT documented in this encounter Results * (ABNORMAL) CBC without differential (07/20/2021 1:34 PM CDT) WBC 15.4(H) 3.8 - 9.9 K/cumm [facility] Hgb 10.3(L) 11.9 - 15.5 g/dL [facility] Hct 30.5(L) 35.6 - 45.5 % [facility] Plt 210 150 - 400 K/cumm [facility] MPV 10.0 9.1 - 12.3 fL [facility] RBC 3.32(L) 3.90 - 5.20 M/cumm [facility] MCV 91.9 81.3 - 96.4 fL [facility] MCH 31.0 27.1 - 33.3 pg [facility] MCHC 33.8 32.3 - 35.7 g/dL [facility] RDW CV 13.2 11.1 - 14.9 % [facility] RDW SD 43.8 35.7 - 48.1 fL [facility] NRBC abs 0.00 0.00 - 0.01 K/cumm [facility] Blood 07/20/2021 1:34 PM CDT 07/20/2021 1:37 PM CDT us Amanda Dent MD LAB BLOOD ORDERABLES Final Res ult [facility] Department [place] [address] * Bleed Screen (07/20/2021 12:41 PM CDT) Bleed Screen Negative [facility] Blood 07/20/2021 12:4 1 PM CDT 07/20/2021 1:29 PM CDT Linnette Garcia MD LAB BLOOD BANK TEST ORDE RABLES Final Result Performing Organization Address [facility]/ZIP Co de Phone Number [facility] [place] [address] * ABO/Rh (07/20/2021 12:41 PM CDT) ABO Rh O Negative [facility] Blood 07/20/2021 12:4 1 PM CDT 07/20/2021 1:29 PM CDT Linnette Garcia MD LAB BLOOD BANK TEST ORDE RABLES Final Result Performing Organization Address [facility] de Phone Number [facility] [place] [address] * Rh Immune Globulin Eval (07/20/2021 12:41 PM CDT) RhIg Administration 1 vial of Rh Immune Globulin (300 mcg dose) [facility] RhIg Eligible Yes, eligible [facility] Blood 07/20/2021 12:4 1 PM CDT 07/20/2021 1:29 PM CDT Narrative [facility] - 07/20/2021 2:27 PM CDT Number of weeks ?->20 weeks or greater antibody screen result:->Negative Rhogam given?->Unknown Number of vials requested:->1 Amanda Dent MD LAB BLOOD BANK TEST ORDERABLES Final Result [facility] Department [place] [address] * US OB Limited (07/19/2021 12:07 PM CDT) Anatomical Region Laterality Modality Abdomen N/A Ultrasound Narrative 07/19/2021 12:07 PM CDT Vertex presentation on bedside ultrasound. Images reviewed. Jovan Healy MD us Jovan Healy MD IMG OB US PROCEDURES Final Result * Protein / creatinine ratio, urine, random (07/19/2021 11:56 AM CDT) Protein, ur, quant <5.0 mg/dL [facility] Comment: Interpretive Data No reference range established. Current interpretive data was last revised 2018. Creatinine Ur 21.5 mg/dL [facility] Comment: Interpretive Data No reference range established. Current interpretive data was last revised 2018. Protein/creatini ne ratio See Comment 0.0 - 180.0 mg/g CR [facility] Comment:Unable to Calculate Urine 07/19/2021 11:5 6 AM CDT 07/19/2021 12:04 PM CDT us Jovan Healy MD LAB URINE ORDERABLES Final Result Performing Organization Address City/[facility]/ZIP Co de Phone Number [facility] Department [place] [address] * Antibody identification (07/19/2021 10:27 AM CDT) Antibody ID 1 Passive Anti-D [facility] Blood 07/19/2021 10:2 7 AM CDT 07/19/2021 10:27 AM CDT us Jovan Healy MD LAB BLOOD BANK TEST ORDERAB LES Final Result [facility] Department [place] [address] * (ABNORMAL) eGFR (07/19/2021 9:06 AM CDT) [facility] eGFR >90(H) 90 - 130 mL/min/1. 73 m2 [facility] Comment: Interpretive Data Reference Interval Normal ?>/= [...] interpretive data was last reviewed 2021. Blood 07/19/2021 9:06 AM CDT 07/19/2021 9:21 AM CDT us Jovan Healy MD LAB BLOOD ORDERABLES Final Result [facility] Department [place] [address] * Influenza A/B, RSV, and COVID-19 PCR Nasopharyngeal (07/19/2021 9:06 AM CDT) [facility] COVID-19 RNA Negative Negative [facility] Influenza A RNA Negative Negative [facility] Influenza B RNA Negative Negative [facility] RSV RNA Negative Negative [facility] Comment: Interpretive data: Testing performed by [facility] ([phone]). This test is performed using the [employer] Xpert Xpress CoV-2/Flu/RSV plus assay. This is a multiplex, real-time reverse transcriptase PCR assay intended for the qualitative detection of nucleic acid from SARS-CoV-2, influenza A, influenza B, and respiratory syncytial virus. This assay has been reviewed by the FDA for Emergency Use Authorization (EUA). The performance characteristics have been verified by the [facility]. Results must be considered in the clinical context, and a negative result does not rule out infection. Interpretive Data last revised 2021. First COVID-19 test? No [facility] Employeed in healthcare? No [facility] status? Yes [facility] Group care resident? No [facility] Hospitalized? Yes [facility] Is patient in ICU? No [facility] Symptomatic as defined by CDC? No [facility] Nasopharyngeal 07/19/2021 9: 06 AM CDT 07/19/2021 10:33 AM CDT Narrative [facility] - 07/19/2021 11:26 AM CDT Reason for testing?->Labor and delivery Known exposure to confirmed or suspected COVID-19 case?->No Jovan Healy MD LAB MICROBIOLOGY - GENERAL ORDERABLES Final Result Performing Organization Address City/State/[facility] Co de Phone Number [facility] Department [place] [address] * RPR (07/19/2021 9:06 AM CDT) Pathologist [facility] Emergency Department RPR Nonreactive Nonreactive [facility] Blood 07/19/2021 9:06 AM CDT 07/19/2021 9:21 AM CDT Jovan Healy MD LAB MICROBIOLOGY - GENERAL ORDERABLES Final Result [facility] Department [place] [address] * (ABNORMAL) Comprehensive metabolic panel (07/19/2021 9:06 AM CDT) Sodium 139 135 - 145 mmol/L [facility] Potassium, pl 4.0 3.3 - 4.9 mmol/L [facility] Chloride 105 97 - 110 mmol/L [facility] CO2 25 22 - 32 mmol/L [facility] Anion gap 9 2 - 15 mmol/L [facility] BUN 5(L) 8 - 25 mg/dL [facility] Creatinine 0.47(L) 0.60 - 1.10 mg/dL [facility] Glucose 80 70 - 199 mg/dL [facility] Comment: Interpretive Data Fasting glucose >/= [...] 2017. Calcium 9.2 8.5 - 10.3 mg/dL [facility] Bilirubin, total 0.2 0.1 - 1.2 mg/dL [facility] Protein, pl 6.7 6.5 - 8.5 g/dL [facility] Albumin 3.8 3.5 - 5.0 g/dL [facility] Alk phos 136(H) 40 - 130 Units/L [facility] ALT 21 7 - 45 Units/L [facility] AST 20 10 - 45 Units/L [facility] Blood 07/19/2021 9:06 AM CDT 07/19/2021 9:21 AM CDT Jovan Healy MD LAB BLOOD ORDERABLES Final Result [facility] Department [place] [address] * (ABNORMAL) CBC without differential (07/19/2021 9:06 AM CDT) Pathologist [facility] Emergency Department WBC 8.6 3.8 - 9.9 K/cumm [facility] Hgb 11.4(L) 11.9 - 15.5 g/dL [facility] Hct 34.4(L) 35.6 - 45.5 % [facility] Plt 239 150 - 400 K/cumm [facility] MPV 10.1 9.1 - 12.3 fL [facility] RBC 3.79(L) 3.90 - 5.20 M/cumm [facility] MCV 90.8 81.3 - 96.4 fL [facility] MCH 30.1 27.1 - 33.3 pg [facility] MCHC 33.1 32.3 - 35.7 g/dL [facility] RDW CV 13.4 11.1 - 14.9 % [facility] RDW SD 44.0 35.7 - 48.1 fL [facility] NRBC abs 0.00 0.00 - 0.01 K/cumm [facility] Blood 07/19/2021 9:06 AM CDT 07/19/2021 9:21 AM CDT Jovan Healy MD LAB BLOOD ORDERABLES Final Result Performing Organization Address [facility] Co de Phone Number [facility] Department [place] [address] * (ABNORMAL) Type and screen (07/19/2021 9:06 AM CDT) Pathologist [facility] Emergency Department Jorge, indirect Positive(A) [facility] ABO Rh O Negative [facility] Blood 07/19/2021 9:06 AM CDT 07/19/2021 9:22 AM CDT Narrative [facility] - 07/19/2021 10:27 AM CDT Has the patient had Daratumumab or Isatuximab in the past 6 months?->Unknown us Jovan Healy MD LAB BLOOD BANK TEST ORDERAB LES Final Result [facility] Department [place] [address] documented in this encounter Visit Diagnoses Diagnosis state- Primary Supervision of other normal , antepartum Encounter for induction of labor documented in this encounter Administered Medications Inactive Administered Medications - up to 3 most recent administrations Medication Order MAR Action Action Date Dose Rate Site acetaminophen (TYLENOL) tablet 1,000 mg 1,000 mg, oral, Every 6 hours PRN, 1st line for pain, Starting on Mon07/20/21 at 0619, Indications: Fever, PainIndications:Feve r,Pain Given 07/20/2021 2:33 PM CDT 1,000 mg benzocaine-menthoL (DERMOPLAST) 20-0.5 % topical spray 1 spray 1 spray, topical, As needed, other, perianal area for pain, Starting on Mon07/20/21 at 0619, Up to 6 times a day., Apply to affected area: perineum, Indications: Minor Skin Wound PainIndications:Lenny r Skin Wound Pain Given 07/20/2021 2:34 PM CDT 1 spray carboprost (HEMABATE) injection 250 mcg 250 mcg, intramuscular, Once as needed, hemorrhage per MD request, Starting on Mon07/19/21 at 0850, For 1 dose, L&D Pre-Delivery, Administer only on provider request Refrigerate Given 07/20/2021 5:28 AM CDT 250 mcg Left Anterior Thigh dextrose 5% and Lactated Ringer's infusion 125 mL/hr, intravenous, Continuous, Starting on Mon07/19/21 at 0930, L&D Pre-Delivery, New Bag 07/19/2021 11:59 PM CDT 125 mL/hr 125 mL/hr New Bag 07/19/2021 10:21 AM CDT 125 mL/hr 125 mL/hr docusate sodium (COLACE) capsule 100 mg 100 mg, oral, 2 times daily, First dose on Mon07/20/21 at 0900, Hold if diarrhea., Indications: constipation, Stool SoftenerIndications:constipatio n,Stool Softener Given 07/20/2021 10:00 PM CDT 100 mg enoxaparin (LOVENOX) syringe 40 mg 40 mg, subcutaneous, Every 12 hours scheduled, First dose (after last modification) on Mon07/21/21 at 0900, Indications: Deep Vein Thrombosis PreventionIndications:Deep Vein Thrombosis Prevention fentaNYL-bupivacaine preservative free in 0.9% sodium chloride [...] 1:12 PM CDT 10 mL/hr 10 mL/hr influenza quadrivalent (FLULAVAL,FLUARIX,FLUZON E) 60 mcg (15 mcg x 4)/0.5 mL vaccine (STANDARD age 6 months and up) 0.5 mL 0.5 mL, intramuscular, During hospitalization, immunization, Starting on Mon07/20/21 at 0838, For 1 dose, Indications: influenza vaccinationIndications:i nfluenza vaccination Given 07/21/2021 9:15 AM CDT 0.5 mL Right Deltoid Lactated Ringer's (LR) bolus 1,000 mL 1,000 mL, intravenous, Once, On Mon07/19/21 at 1300, For 1 dose, 15 to 30 minutes before epidural placement. New Bag 07/19/2021 12:45 PM CDT 1,000 mL loperamide (IMODIUM) capsule 2 mg 2 mg, oral, Once as needed, diarrhea, per MD request, Starting on Mon07/19/21 at 0850, For 1 dose, L&D Pre-Delivery, Administer only on provider request Given 07/20/2021 5:32 AM CDT 2 mg qkhwiph-kcykj-gdjemxy (MMR) 1,000-12,500 TCID50/0.5 mL live vaccine 0.5 mL 0.5 mL, subcutaneous, During hospitalization, immunization, Starting on Mon07/21/21 at 1200, For 1 dose, If not rubella immune. Warning: This is a live or live attenuated vaccine. Refrigerate, Indications: Cxpgtdd-Lzlix-Azvkopm VaccinationIndications:M crggln-Drsrm-Wmpwfja Vaccination Given 07/21/2021 12:26 PM CDT 0.5 mL Left Upper Arm methylergonovine (METHERGINE) injection 0.2 mg 0.2 mg, intramuscular, Once, On Mon07/20/21 at 0600, For 1 dose, Refrigerate Given 07/20/2021 5:22 AM CDT 0.2 mg Right Anterior Thigh miSOPROStol (CYTOTEC) split tablet 25 mcg 25 mcg, vaginal, Once, On Mon07/19/21 at 0945, For 1 dose Given 07/19/2021 10:12 AM CDT 25 mcg miSOPROStoL (CYTOTEC) tablet 800 mcg 800 mcg, rectal, Once as needed, hemorrhage per MD request, Starting on Mon07/19/21 at 0850, For 1 dose, L&D Pre-Delivery, Administer only on provider request Given 07/20/2021 5:23 AM CDT 800 mcg ondansetron (ZOFRAN) injection 4 mg 4 mg, intravenous, Administer over 2 Minutes, Every 6 hours PRN, nausea, vomiting, if not tolerating PO, Starting on Mon07/19/21 at 0851, L&D Pre-Delivery, Indications: Nausea and VomitingIndications:Naus ea and Vomiting Given 07/20/2021 5:45 AM CDT 4 mg ondansetron (ZOFRAN) injection 4 mg 4 mg, intravenous, Administer over 2 Minutes, Every 6 hours PRN, nausea, vomiting, if not tolerating PO, Starting on Mon07/21/21 at 0338, Start in 24 hours after Anesthesia no longer covering., Indications: Nausea and VomitingIndications:Naus ea and Vomiting ondansetron ODT (ZOFRAN-ODT) disintegrating tablet 4 mg 4 mg, oral, Every 6 hours PRN, nausea, vomiting, Starting on Mon07/19/21 at 0851, L&D Pre-Delivery, Indications: Nausea and VomitingIndications:Naus ea and Vomiting Given 07/19/2021 11:53 AM CDT 4 mg ondansetron ODT (ZOFRAN-ODT) disintegrating tablet 4 mg 4 mg, oral, Every 6 hours PRN, nausea, vomiting, Starting on Mon07/21/21 at 0338, Start in 24 hours after Anesthesia no longer covering., Indications: Nausea and VomitingIndications:Naus ea and Vomiting oxytocin 30 unit/500 mL (0.06 unit/mL) in sodium chloride 0.9% (premix) solution 95-334 milliunits/min (95-334 mL/hr), 0.06 units/mL, intravenous, Continuous, Starting on Mon07/20/21 at 0700, Until Mon07/20/21 at 0913, Indications: Hemorrhage Prevention, 334 janine-units/minutes for 30 minutes then decrease infusion to 95 janine-units/min for 3.5 hours., RoutineIndications:Postp artum Hemorrhage Prevention New Bag 07/20/2021 5:48 AM CDT 95 milliunits/mi n 95 mL/hr Rate/Dose Change 07/20/2021 5:47 AM CDT 95 milliunits/min 95 mL/hr Rate/Dose Change 07/20/2021 5:16 AM CDT 999 milliunits/min 999 mL/hr oxytocin 30 unit/500 mL (0.06 unit/mL) in sodium chloride 0.9% (premix) solution 0.5-40 milliunits/min (0.5-40 mL/hr), 0.06 units/mL, intravenous, Titrated, Starting on Mon07/19/21 at 2030, Until Mon07/20/21 at 0619, Indications: Induction of Labor, Start at 2 janine-units/min and increase by 2 janine-units/minutes every 30 minutes until contraction frequency is every 2-3 minutes. - - 20 milliunits/minutes maximum - All other patients 40 milliunits/minute maximum Discontinue for distress or uterine hyperstimulation., RoutineIndications:Inducti on of Labor Rate/Dose Change 07/20/2021 1:44 AM CDT 4 milliunits/min 4 mL/hr New Bag 07/20/2021 12:32 AM CDT 2 milliunits/min 2 mL/h r penicillin G potassium 3 million units/50 mL in dextrose (premix) 3 Million Units 3 Million Units, intravenous, Administer over 30 Minutes, Every 4 hours, First dose on Mon07/19/21 at 1400, L&D Pre-Delivery, Until delivery, Indications: Prevention of Group B Streptococcal InfectionIndications:Prevention of Group B Streptococcal Infection New Bag 07/20/2021 2:18 AM CDT 3 Million Units New Bag 07/19/2021 10:16 PM CDT 3 Million Units New Bag 07/19/2021 6:15 PM CDT 3 Million Units penicillin G potassium 5 million units/50 mL in sterile water (premix) 5 Million Units 5 Million Units, intravenous, Administer over 30 Minutes, Once, On Mon07/19/21 at 0930, For 1 dose, L&D Pre-Delivery, Indications: Prevention of Group B Streptococcal InfectionIndications:Prev ention of Group B Streptococcal Infection New Bag 07/19/2021 10:24 AM CDT 5 Million Units PNV with xxkbbqe-kial-IF tablet 1 tablet 1 tablet, oral, Daily, First dose on Mon07/20/21 at 0900, Begin when normal bowel activity resumes., Indications: Vitamin Deficiency PreventionIndications:Vit grier Deficiency Prevention Given 07/21/2021 9:17 AM CDT 1 tablet prochlorperazine (COMPAZINE) injection 5 mg 5 mg, intravenous, Administer over 2 Minutes, Every 6 hours PRN, nausea, vomiting, 2nd line for nausea/vomiting, Starting on Mon07/20/21 at 0608 Given 07/20/2021 6:22 AM CDT 5 mg Rho(D) immune globulin (HyperRHO S/D, RhoGAM) injection 300 mcg 300 mcg, intramuscular, Once, On Mon07/20/21 at 1715, For 1 dose, Refrigerate, Indications: Prevention of Rhesus Isoimmunization affecting PregnancyIndications:Prev ention of Rhesus Isoimmunization affecting Given 07/20/2021 4:45 PM CDT 300 mcg Right Dorsogluteal/B uttock sodium chloride 0.9% flush 0.5-20 mL 0.5-20 mL, intra-catheter, Every 8 hours scheduled, First dose on Mon07/19/21 at 0930, L&D Pre-Delivery, Flush volume based on line type and size. Given 07/19/2021 11:50 AM CDT 10 mL tranexamic acid (CYKLOKAPRON) 1,000 mg/100 mL (10 mg/mL) in sodium chloride (premix) 1,000 mg 1,000 mg, intravenous, at 400 mL/hr, Administer over 15 Minutes, Once as needed, hemorrhage per MD request, Starting on Mon07/19/21 at 0850, For 1 dose, L&D Pre-Delivery, Administer only on provider request, Indications: HemorrhageIndications:Pos tpartum Hemorrhage New Bag 07/20/2021 5:30 AM CDT 1,000 mg 400 mL/hr documented in this encounter Discontinued Medications Medication Sig Discontinue Reason Start Date End Da te bacitracin (bacitracin) 500 unit/gram ointment Apply topically 2 (two) times a day Therapy completed 02/04/2019 07/19/2021 clindamycin (CLEOCIN) 300 mg capsule clindamycin HCl 300 mg capsule Therapy completed 07/19/2021 mupirocin (BACTROBAN) 2 % ointment mupirocin 2 % topical ointment Therapy completed 07/19/2021 topiramate (TOPAMAX) 25 mg tablet Take 50 mg by mouth nightly Therapy completed 07/12/2019 07/19/2021 folic acid (FOLVITE) 1 mg tablet Take 1 tablet (1 mg total) by mouth daily Stop Taking at Discharge 02/09/2021 07/21/2021 [id number] fumarate-FA () 28-800 mg-mcg tablet daily Stop Taking at Discharge 07/21/2021 documented as of this encounter Active and Recently Administered Medications Times are shown in CDT. Scheduled Medication Order 07/19/2021 07/20/2021 07/21/2021 docusate sodium (COLACE) capsule 100 mg 100 mg, oral, 2 times daily, First dose on Mon07/20/21 at 0900, Hold if diarrhea., Indications: constipation, Stool Softener 0900 (Due)2200 (Given - Provider: Annamaria Lyles) 0900 (Due) enoxaparin (LOVENOX) syringe 40 mg 40 mg, subcutaneous, Every 12 hours scheduled, First dose (after last modification) on Mon07/21/21 at 0900, Indications: Deep Vein Thrombosis Prevention 0900 (Due) Lactated Ringer's (LR) bolus 1,000 mL (COMPLETED) 1,000 mL, intravenous, Once, On Mon07/19/21 at 1300, For 1 dose, 15 to 30 minutes before epidural placement. 1245 (New Bag - Provider: Silvano Peters RN) methylergonovine (METHERGINE) injection 0.2 mg (COMPLETED) 0.2 mg, intramuscular, Once, On Mon07/20/21 at 0600, For 1 dose, Refrigerate 0522 (Given - Provider: Ana Lilia Mejia, TRAY) miSOPROStol (CYTOTEC) split tablet 25 mcg (COMPLETED) 25 mcg, vaginal, Once, On Mon07/19/21 at 0945, For 1 dose 1012 (Given - Provider: Irvin Rosado, TRAY) penicillin G potassium 3 million units/50 mL in dextrose (premix) 3 Million Units (CANCELED)(Linked Group 1) 3 Million Units, intravenous, Administer over 30 Minutes, Every 4 hours, First dose on Mon07/19/21 at 1400, L&D Pre-Delivery, Until delivery, Indications: Prevention of Group B Streptococcal Infection 1422 (New Bag - Provider: Silvano Peters RN)1815 (New Bag - Provider: Silvano Peters RN)2216 (New Bag - Provider: Ana Lilia Mejia, TRAY) 0218 (New Bag - Provider: Ana Lilia Mejia, TRAY)0619 (Not Given - Provider: Ana Lilia Mejia RN - Reason: Order parameters not met) penicillin G potassium 5 million units/50 mL in sterile water (premix) 5 Million Units (COMPLETED)(Linked Group 1) 5 Million Units, intravenous, Administer over 30 Minutes, Once, On Mon07/19/21 at 0930, For 1 dose, L&D Pre-Delivery, Indications: Prevention of Group B Streptococcal Infection 1024 (New Bag - Provider: Irvin Rosado, TRAY)1100 (Stopped - Provider: Irvin Rosado, TRAY) PNV with qeqkqjq-wjdp-DY tablet 1 tablet 1 tablet, oral, Daily, First dose on Mon07/20/21 at 0900, Begin when normal bowel activity resumes., Indications: Vitamin Deficiency Prevention 0900 (Due)0917 (Given - Provider: Elo Proctor RN) Rho(D) immune globulin (HyperRHO S/D, RhoGAM) injection 300 mcg (COMPLETED) 300 mcg, intramuscular, Once, On Mon07/20/21 at 1715, For 1 dose, Refrigerate, Indications: Prevention of Rhesus Isoimmunization affecting 1645 (Given - Provider: Elo Proctor RN) sodium chloride 0.9% flush 0.5-20 mL (CANCELED) 0.5-20 mL, intra-catheter, Every 8 hours scheduled, First dose on Mon07/19/21 at 0930, L&D Pre-Delivery, Flush volume based on line type and size. 1150 (Given - Provider: Irvin Rosado RN)1333 (Not Given - Provider: Silvano Peters RN - Reason: IV Infusing)2200 (Due) 0636 (Not Given - Provider: Ana Lilia Mejia RN - Reason: IV Infusing) Continuous Medication Order 07/19/2021 07/20/2021 07/21/2021 dextrose 5% and Lactated Ringer's infusion (CANCELED) 125 mL/hr, intravenous, Continuous, Starting on Mon07/19/21 at 0930, L&D Pre-Delivery, 1021 (New Bag - Provider: Irvin Rosado RN)1100 (Stopped - Provider: Irvin Rosado RN)2359 (New Bag - Provider: Ana Lilia Mejia RN) 0516 (Stopped - Provider: Ana Lilia Mejia RN) fentaNYL-bupivacaine preservative free in 0.9% sodium chloride 2 mcg/mL- 0.1 % cassette (premix) Continuous Rate: 10 mL/hr, Patient Bolus Dose: 8 mL / 6, Lockout Interval: 15 Minutes, epidural, Continuous, Starting on Mon07/19/21 at 1300, Until Mon07/21/21 at 1925, 100 mL, Indications: Pain, Stop epidural infusion after placental delivery and any indicated repair is complete., Routine 1305 (Given - Provider: Wilton Feldman MD)1310 (Given - Provider: Wilton Feldman MD)1312 (New Bag - Provider: Wilton Feldman MD)1938 (New Syringe/Cartridge - Provider: Ana Lilia Mejia RN) 0222 (New Syringe/Cartridge - Provider: Ana Lilia Mejia RN)0549 (Stopped (Dual Sign) - Provider: Ana Lilia Mejia RN) oxytocin 30 unit/500 mL (0.06 unit/mL) in sodium chloride 0.9% (premix) solution () 95-334 milliunits/min (95-334 mL/hr), 0.06 units/mL, intravenous, Continuous, Starting on Mon07/20/21 at 0700, Until Mon07/20/21 at 0913, Indications: Hemorrhage Prevention, 334 janine-units/minutes for 30 minutes then decrease infusion to 95 janine-units/min for 3.5 hours., Routine 0514 (New Bag - Provider: Ana Lilia Mejia RN)0516 (Rate/Dose Change - Provider: Ana Lilia Mejia RN - Comment: Per MD Wu verbal order)0547 (Rate/Dose Change - Provider: Ana Lilia Mejia RN - Comment: Per MD Wu)0548 (New Bag - Provider: Ana Lilia Mejia RN)1100 (Stopped - Provider: Elo Proctor RN) oxytocin 30 unit/500 mL (0.06 unit/mL) in sodium chloride 0.9% (premix) solution (CANCELED) 0.5-40 milliunits/min (0.5-40 mL/hr), 0.06 units/mL, intravenous, Titrated, Starting on Mon07/19/21 at 2030, Until Mon07/20/21 at 0619, Indications: Induction of Labor, Start at 2 janine-units/min and increase by 2 janine-units/minutes every 30 minutes until contraction frequency is every 2-3 minutes. - - 20 milliunits/minutes maximum - All other patients 40 milliunits/minute maximum Discontinue for distress or uterine hyperstimulation., Routine 1953 (Hold - Provider: Ana Lilia Mejia RN - Reason: Order parameters not met) 003 (New Bag - Provider: Ana Lilia Mejia RN - Comment: Verified by Cynthia FELIZ)0144 (Rate/Dose Change - Provider: Ana Lilia Mejia RN)0320 (Stopped - Provider: Ana Lilia Mejia RN)0618 (Not Given - Provider: Ana Lilia Mejia RN - Reason: Order parameters not met) PRN Medication Order 07/19/2021 07/20/2021 07/21/2021 acetaminophen (TYLENOL) tablet 1,000 mg 1,000 mg, oral, Every 6 hours PRN, 1st line for pain, Starting on Mon07/20/21 at 0619, Indications: Fever, Pain 1433 (Given - Provider: Elo Proctor RN) benzocaine-menthoL (DERMOPLAST) 20-0.5 % topical spray 1 spray 1 spray, topical, As needed, other, perianal area for pain, Starting on Mon07/20/21 at 0619, Up to 6 times a day., Apply to affected area: perineum, Indications: Minor Skin Wound Pain 1434 (Given - Provider: Elo Proctor RN) calcium carbonate (TUMS) chewable tablet 500 mg 500 mg, oral, 4 times daily PRN, heartburn, Starting on Mon07/20/21 at 0619, Indications: Dyspepsia carboprost (HEMABATE) injection 250 mcg (COMPLETED) 250 mcg, intramuscular, Once as needed, hemorrhage per MD request, Starting on Mon07/19/21 at 0850, For 1 dose, L&D Pre-Delivery, Administer only on provider request Refrigerate 0528 (Given - Provider: Ana Lilia Mejia RN) hydrocortisone (ANUSOL-HC) 2.5 % rectal cream rectal, 3 times daily PRN, hemorrhoids, Starting on Mon07/20/21 at 0619, Indications: Hemorrhoids ibuprofen (ADVIL,MOTRIN) tablet 600 mg 600 mg, oral, Every 6 hours PRN, other, cramping, Starting on Mon07/20/21 at 0619, Do not crush, break, or open., Indications: Cramps 0903 (Due) influenza quadrivalent [id number] (FLULAVAL,FLUARIX,FLUZON E) 60 mcg (15 mcg x 4)/0.5 mL vaccine (STANDARD age 6 months and up) 0.5 mL (COMPLETED) 0.5 mL, intramuscular, During hospitalization, immunization, Starting on Mon07/20/21 at 0838, For 1 dose, Indications: influenza vaccination 0915 (Given - Provider: Elo Proctor RN) loperamide (IMODIUM) capsule 2 mg (COMPLETED) 2 mg, oral, Once as needed, diarrhea, per MD request, Starting on Mon07/19/21 at 0850, For 1 dose, L&D Pre-Delivery, Administer only on provider request 0532 (Given - Provider: Ana Lilia Mejia, TRAY) xeetzue-oxwsc-ymtwqqe (MMR) 1,000-12,500 TCID50/0.5 mL live vaccine 0.5 mL (COMPLETED) 0.5 mL, subcutaneous, During hospitalization, immunization, Starting on Mon07/21/21 at 1200, For 1 dose, If not rubella immune. Warning: This is a live or live attenuated vaccine. Refrigerate, Indications: Qarkeur-Jtwgk-Iyenqep Vaccination 1226 (Given - Provider: Elo Proctor RN) miSOPROStoL (CYTOTEC) tablet 800 mcg (COMPLETED) 800 mcg, rectal, Once as needed, hemorrhage per MD request, Starting on Mon07/19/21 at 0850, For 1 dose, L&D Pre-Delivery, Administer only on provider request 0523 (Given - Provider: Ana Lilia Mejia, TRAY) ondansetron (ZOFRAN) injection 4 mg (CANCELED)(Linked Group 2) 4 mg, intravenous, Administer over 2 Minutes, Every 6 hours PRN, nausea, vomiting, if not tolerating PO, Starting on Mon07/19/21 at 0851, L&D Pre-Delivery, Indications: Nausea and Vomiting 1153 (See Alternative - Provider: Irvin Rosado, TRAY) 0545 (Given - Provider: Ana Lilia Mejia, TRAY) ondansetron (ZOFRAN) injection 4 mg(Linked Group 3) 4 mg, intravenous, Administer over 2 Minutes, Every 6 hours PRN, nausea, vomiting, if not tolerating PO, Starting on Mon07/21/21 at 0338, Start in 24 hours after Anesthesia no longer covering., Indications: Nausea and Vomiting ondansetron ODT (ZOFRAN-ODT) disintegrating tablet 4 mg (CANCELED)(Linked Group 2) 4 mg, oral, Every 6 hours PRN, nausea, vomiting, Starting on Mon07/19/21 at 0851, L&D Pre-Delivery, Indications: Nausea and Vomiting 1153 (Given - Provider: Irvin Rosado RN) 0545 (See Alternative - Provider: Ana Lilia Mejia RN) ondansetron ODT (ZOFRAN-ODT) disintegrating tablet 4 mg(Linked Group 3) 4 mg, oral, Every 6 hours PRN, nausea, vomiting, Starting on Mon07/21/21 at 0338, Start in 24 hours after Anesthesia no longer covering., Indications: Nausea and Vomiting polyethylene glycol (MIRALAX) packet 17 g 17 g, oral, Daily PRN, constipation, Starting on Mon07/20/21 at 0619, Indications: constipation prochlorperazine (COMPAZINE) injection 5 mg 5 mg, intravenous, Administer over 2 Minutes, Every 6 hours PRN, nausea, vomiting, 2nd line for nausea/vomiting, Starting on Mon07/20/21 at 0608 0622 (Given - Provider: Ana Lilia Mejia, TRAY) tranexamic acid (CYKLOKAPRON) 1,000 mg/100 mL (10 mg/mL) in sodium chloride (premix) 1,000 mg (COMPLETED) 1,000 mg, intravenous, at 400 mL/hr, Administer over 15 Minutes, Once as needed, hemorrhage per MD request, Starting on Mon07/19/21 at 0850, For 1 dose, L&D Pre-Delivery, Administer only on provider request, Indications: Hemorrhage 0530 (New Bag - Provider: Ana Lilia Mejia RN) Linked Groups Order Group 1: penicillin G potassium 5 million units/50 mL in sterile water (premix) 5 Million Units (COMPLETED)Jump to med 5 Million Units, intravenous, Administer over 30 Minutes, Once, On Mon07/19/21 at 0930, For 1 dose, L&D Pre-Delivery, Indications: Prevention of Group B Streptococcal Infection Followed by penicillin G potassium 3 million units/50 mL in dextrose (premix) 3 Million Units (CANCELED)Jump to med 3 Million Units, intravenous, Administer over 30 Minutes, Every 4 hours, First dose on Mon07/19/21 at 1400, L&D Pre-Delivery, Until delivery, Indications: Prevention of Group B Streptococcal Infection Group 2: ondansetron ODT (ZOFRAN-ODT) disintegrating tablet 4 mg (CANCELED)Jump to med 4 mg, oral, Every 6 hours PRN, nausea, vomiting, Starting on Mon07/19/21 at 0851, L&D Pre-Delivery, Indications: Nausea and Vomiting Or ondansetron (ZOFRAN) injection 4 mg (CANCELED)Jump to med 4 mg, intravenous, Administer over 2 Minutes, Every 6 hours PRN, nausea, vomiting, if not tolerating PO, Starting on Mon07/19/21 at 0851, L&D Pre-Delivery, Indications: Nausea and Vomiting Group 3: ondansetron ODT (ZOFRAN-ODT) disintegrating tablet 4 mgJump to med 4 mg, oral, Every 6 hours PRN, nausea, vomiting, Starting on Mon07/21/21 at 0338, Start in 24 hours after Anesthesia no longer covering., Indications: Nausea and Vomiting Or ondansetron (ZOFRAN) injection 4 mgJump to med 4 mg, intravenous, Administer over 2 Minutes, Every 6 hours PRN, nausea, vomiting, if not tolerating PO, Starting on Mon07/21/21 at 0338, Start in 24 hours after Anesthesia no longer covering., Indications: Nausea and Vomiting documented in this encounter Orders Medications Ordered That Quincy ht Not Have Been Administered Count Last Ordered Date First Ordered Date enoxaparin (LOVENOX) syringe 40 mg 2 2021 calcium carbonate (TUMS) isa wable tablet 500 mg 1 07/20/2021 COVID-19 vac, kwaku(Pfizer)(P F) (PFIZER) vaccine 0.3 mL 1 07/20/2021 hydrocortisone (ANUSOL-HC) 2 .5 % rectal cream 1 07/20/2021 ibuprofen (ADVIL,MOTRIN) tablet 600 mg 1 ondansetron (ZOFRAN) injection 4 mg 2 07/20 ondansetron ODT (ZOFRAN-ODT) disintegrating tablet 4 mg 2 07/20/2021 polyethylene glycol (MIRALAX) packet 17 g 1 07/20/2021 prochlorperazine (COMPAZINE) injection 5 mg 1 07/20/2021 varicella zoster (VARIVAX) v accine - live 0.5 mL 1 07/20/2021 acetaminophen (TYLENOL) tablet 650 mg 1 albuterol HFA (PROVENTIL HFA ,VENTOLIN HFA,PROAIR HFA) 90 mcg/actuation inhaler 2 puff 1 07/19/2021 fentaNYL-bupivacaine preserv ative free in 0.9% sodium chloride 2 mcg/mL- 0.1 % cassette (premix) 1 07/19/2021 Lactated Ringer's (LR) bolus 1,000 mL 3 levonorgestreL (MIRENA) 20 m cg/24 hours (7 yrs) 52 mg IUD 1 07/19/2021 lidocaine PF (XYLOCAINE) 10 mg/mL (1 %) preservative free injection 100 mg 1 07/19/2021 methylergonovine (METHERGINE ) injection 0.2 mg 1 07/19/2021 naloxone (NARCAN) 0.4 mg/mL injection 0.04-0.4 mg 2 07/19/2021 oxytocin (PITOCIN) injection 10 Units 1 sodium chloride 0.9% flush 0.5-20 mL 5 07/06 terbutaline (BRETHINE) injection 0.125 mg 1 07/19/2021 terbutaline (BRETHINE) injection 0.25 mg 1 07/19/2021 Nursing Count Last Ordered Date First Orde red Date NURSING COMMUNICATION 1 07/19/2021 Transfer Count Last Ordered Date First Orde red Date TRANSFER PATIENT 2 07/20/2021 CORE MEASURES Count Last Ordered Date First Ord ered Date REASON FOR NO VTE PROPHYLAXIS AT ADMISSION 1 07/20/2021 REASON FOR NO VTE PROPHYLAXI S - HOSPITAL ADMISSION - MEDICATIONS 1 07/19/2021 documented in this encounter Care Teams Acquisition Marketing Coordinator Relationship Specialty Start Date End Date Venecia Turner MD [address] [place] [address] DR [address] [facility] [address] [place], [place] [id number] PCP - General 12/11/19 07/21/21 Jarred Roy MD 2 [facility] [address] [place] [address] 01/30/19 EyersElma NP [address] [place] [address] [address] OW[address] [place] [address] Nurse Practitioner General Surgery 12/16/19 documented as of this encounter
--- OUTSIDE RECORDS SUMMARY | 2024-05-10 20:18 | XMS_ITS | Encounter Summary ---
Author Organization [facility] Healthcare Address [address] [place] [address] Care Team Providers Care Bobbin Disker Name Role Phone Jarred Roy MD Unavailable [phone] Venecia Turner MD Primary Care Provider [phone] Encounter Details Date Type Department Care Team (Late st Contact Info) Description 12/15/2019 10:00 AM CDT Anesthesia Event [facility] Operating Room [address] [place] [address] Bryson Clark MD [address] [place] [address] Dieter Clay, [facility] [address] [address] Anesthesia Record Procedure Summary Procedure Name Responsible Anesthesiologist Anesthesia Start Time Anesthesia Stop Time INCISION AND DRAINAGE - ABSCESS Bryson Clark MD 12/15/19 1000 12/15/19 1035 Events Date Time Event Comment 12/15/2019 0955 1000 An Start 1000 An Start Data 1000 In Room 1002 Start Supplemental O2 1006 An Induction The patient was reevaluated immediately before moderate or deep sedation use and before anesthesia induction. 1007 Anesthesia Ready 1014 Proc Start 1014 Incision Start 1024 Proc Fin 1026 an stop data 1026 Quick Note Placed on 6L/mi n oxygen via simple facemask. 1028 Out of Room 1034 Handoff to RN I completed my handoff to the receiving nurse during which we: 1. Patient identified 2. Responsible provider identified 3. Pertinent medical history reviewed 4. Procedure type and surgical course discussed 5. Intraoperative anesthetic management and any significant issues discussed 6. Expectations and concerns for postop period discussed 7. Questions solicited from receiving nurse 8. Patient disposition at the time of handoff: PACU 1035 An Stop Meds Name Total lidocaine 2 % PF 100 mg propofol 100 mg propofol 223.25 mg midazolam 2 mg fentaNYL 100 mcg ondansetron (ZOFRAN) injection 4 mg 4 mg ketorolac 15 mg NS 0.9% 700 mL * Agents Name O2 Sevoflurane Inspired Sevoflurane * Blood No blood administrations on file. Lines, Drains, and Airways Type Details Placement Removal RETIRED Wound 12/10/19; 1214; Yes; Abscess; Left; Groin; redness/swelling; 02/21/21; Removal date unknown/not present on admission 12/10/19 1214 by Nelsy Ceja RN 02/21/21 0000 by Kristie Vivar RN Peripheral IV Placement Date: 12/14/19; Placement Time: 1044; Catheter Size: 20 G; Orientation: Right; Location: Forearm; Site Prep: Chlorhexidine; Technique: Anatomical landmarks; Insertion Attempts: 1; Patient Tolerance: Tolerated well; Removal Date: 12/16/19; Removal Time: 1647 12/14/19 1044 by Nelsy Ceja RN 12/16/19 1647 by Deanne Serrano RN RETIRED Surgical Site 12/15/19; 1023; Abdomen; 02/21/21; Removal date unknown/not present on admission 12/15/19 1023 by Brianda Middleton RN 02/21/21 0000 by Kristie Vivar RN documented in this encounter Social History Tobacco Use Types Packs/Day Years Used Date Smoking Tobacco: Never Smokeless Tobacco: Never Alcohol Use Standard Drinks/Week Comments No 0 (1 standard drink = 0.6 oz pur e alcohol) Comments No Sex and Gender Information Value Date Recorded Sex Assigned at Not on file 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 Gender Identity Not on file Sexual Orientation Not on file documented as of this encounter OR Notes * Anesthesia Postprocedure Evaluation - Dieter Clay CRNA - 12/15/2019 10:48 AM CDT Patient: Mary Licona Procedure Summary Date: 12/15/19 Room / Location: [facility] OPERATING ROOM Anesthesia Start: 1000 Anesthesia Stop: 1035 Procedure: INCISION AND DRAINAGE - ABSCESS (N/A ) Diagnosis: (suprapubic abscess) Provider: Bryson Clark MD Responsible Provider: Bryson Clark MD Anesthesia Type: general/TIVA ASA Status: 2 Anesthesia Type: general/TIVA Last vitals BP 103/49 (BP Location: Right arm, Patient Position: Lying) Pulse 68 Temp 36.8 ??C (98.3 ??F) (Temporal) Resp 16 SpO2 100% Anesthesia Post Evaluation Patient location during evaluation: PACU Patient participation: complete - patient participated Level of consciousness: fully awake Pain score: 3 Pain management: adequate Airway patency: adequate Evidence of recall: no Anesthetic complications: no Cardiovascular status: acceptable Respiratory status: acceptable Hydration status: acceptable Pt is: normothermic Nausea/Vomiting status: none * Anesthesia Preprocedure Evaluation - Dieter Clay CRNA - 12/15/2019 10:12 AM CDT Images from the original note were not included. Anesthesia Evaluation Mary Licona is a 19 y.o. female Procedure(s): INCISION AND DRAINAGE - ABSCESS * No Diagnosis Codes entered * HISTORY HPI No family hx of problems with anesthesia Past Medical History Neurological Neuro/Psych system: negative Cardiovascular Cardiac system: negative Respiratory Respiratory system: negative Hepatic / Heme Hepatic/Heme system: negative Gastrointestinal GI system: negative Renal / Renal/ system: negative Musculoskeletal/Pain Musculoskeletal/Pain system: negative Endocrine / Other + Obesity (BMI >30) Functional Capacity Functional capacity: 6-10 METs Day of Surgery assessments + Possibility of assessed - HCG negative (see labs). Patient Active Problem List Diagnosis ??? Elbow pain ??? Ankle pain ??? Acute pain of right foot ??? Closed nondisplaced fracture of medial cuneiform of right foot ??? Abscess ??? Morbid obesity (CMS/HCC) Past Medical History: Diagnosis Date ??? HX OTHER MEDICAL T&A in 2012; Comments: MIRANDA 05/20/2014 - ??? HX OTHER MEDICAL elbow fracture 02-06-15.; Comments: MIRANDA 02/09/2015 - Past Surgical History: Procedure Laterality Date ??? TONSILLECTOMY/ADENOIDECTOMY Bilateral OB History No obstetric history on file. No Known Allergies Med List Status: Nurse Complete Set By: Sumi Foley RN at 12/14/2019 1:31 PM Taking? Last Dose Start Date End Date Provider HYDROcodone-acetaminophen (NORCO) 5-325 mg per tablet 12/12/19 -- Annamaria Solis MD Take 1-2 tablets by mouth every 4 (four) hours as needed for pain Do not exceed 8 tablets/day. ibuprofen (ADVIL,MOTRIN) 600 mg tablet 12/18/17 -- Annamaria Solis MD Take 1 tablet (600 mg total) by mouth every 8 (eight) hours as needed for pain. Take with food. sulfamethoxazole-trimethoprim (BACTRIM DS) 800-160 mg per tablet 12/12/19 12/22/19 Annamaria Solis MD Take 1 tablet by mouth 2 (two) times a day for 10 days Current Facility-Administered Medications: ??? [JUL Hold] acetaminophen (TYLENOL) tablet 650 mg, 650 mg, oral, Q4H PRN, 650 mg at 12/14/192043 ??? [JUL Hold] cefepime (MAXIPIME) 2,000 mg in sodium chloride 0.9% 100 mL IVPB, 2,000 mg, intravenous, Q8H [place], Last Rate: 200 mL/hr at 12/15/19 0642, 2,000 mg at 12/15/19 0642 ??? [JUL Hold] clindamycin (CLEOCIN) 900 mg/50 mL in dextrose 5% (premix) 900 mg, 900 mg, intravenous, Q8H [place], Last Rate: 100 mL/hr at 12/15/19 0607, 900 mg at 12/15/19 0607 ??? [MAR Hold] enoxaparin (LOVENOX) syringe 40 mg, 40 mg, subcutaneous, Daily-2100 ??? [JUL Hold] ondansetron (ZOFRAN) injection 4 mg, 4 mg, intravenous, Q4H PRN, 4 mg at 12/14/19 1709 ??? [MAR Hold] oxyCODONE (ROXICODONE) tablet 5 mg, 5 mg, oral, Q4H PRN, 5 mg at 12/14/19 1451 Facility-Administered Medications Ordered in Other Encounters: ??? fentaNYL (SUBLIMAZE) preservative free injection, , , PRN, 75 mcg at 12/15/19 1006 ??? lidocaine (XYLOCAINE) 20 mg/mL (2 %) preservative free injection, , , PRN, 100 mg at 12/15/19 1006 ??? propofoL (DIPRIVAN) IV, , , PRN, 100 mg at 12/15/19 1006 ??? propofoL (DIPRIVAN) IV, , , Continuous PRN, Last Rate: 98.01 mL/hr at 12/15/19 1007, 150 mcg/kg/min at 12/15/19 1007 ??? sodium chloride 0.9% infusion, , , Continuous PRN Social History Tobacco Use Smoking Status Never Smoker Smokeless Tobacco Never Used Substance and Sexual Activity Alcohol Use No Substance and Sexual Activity Drug Use Never Family History Problem Relation Age of Onset ??? Hypertension Father Hypertension; ??? Other Mother Alive and well at age 44.; PAT Physical Exam Airway Exam: Mallampati: II Cervical ROM: FROM TM distance: >4 Cardiovascular Exam: Rate: regular Rhythm: regular Pulmonary Exam: LCTA, bilat Dental Exam: Appears intact Current state: Patient's current state is cooperative. Vitals: 12/14/19 1236 12/14/19 1523 12/14/19 2357 BP: 127/54 121/56 103/49 Pulse: 58 60 68 Resp: 16 16 16 Temp: 36.3 ??C (97.3 ??F) 36.1 ??C (97 ??F) (!) 35.9 ??C (96.7 ??F) SpO2: 100% 100% 100% PT: No results found for requested labs within last 720 hours. INR: No results found for requested labs within last 720 hours. APTT: No results found for requested labs within last 720 hours. Hgb A1C: No results found for requested labs within last 720 hours. CBC RBC: 12/14/2019: 4.12 M/cumm RDW: No results found for requested labs within last 720 hours. MCHC: 12/14/2019: 33.1 g/dL MCH: 12/14/2019: 30.1 pg MCV: 12/14/2019: 91.0 fL Hct: 12/14/2019: 37.5 % Hgb: 12/14/2019: 12.4 g/dL WBC: 12/14/2019: 5.1 K/cumm MPV: 12/14/2019: 9.5 fL Platelets: 12/14/2019: 248 K/cumm RDW CV: 12/14/2019: 13.4 % RDW Sd: 12/14/2019: 45.2 fL BMP Glucose: 12/14/2019: 85 mg/dL Calcium: 12/14/2019: 9.1 mg/dL Sodium: 12/14/2019: 135 mmol/L Potassium: 12/14/2019: 4.6 mmol/L CO2: 12/14/2019: 21 mmol/L* Chloride: 12/14/2019: 102 mmol/L BUN: 12/14/2019: 10 mg/dL Creatinine: 12/14/2019: 0.46 mg/dL* DOS Physical Exam Attestation: I endorse the findings of the anesthesia pre-evaluation assessment dated: 12/15/2019. Airway Exam: Mallampati: II Cervical ROM: FROM TM distance: >4 Cardiovascular Exam: Rate: regular Rhythm: regular Pulmonary Exam: LCTA, bilat Dental Exam: Appears intact Current state: Patient's current state is cooperative. Anesthesia Plan ASA 2 Planned anesthesia: General/TIVA Induction: Induction: intravenous. Postoperative Plan: No plan for postoperative opioid use. Patient's planned disposition post procedure is Floor. Informed Consent: Discussed plan with attending. Anesthesia plan and risks discussed with patient. Consent and Attending signature: I and/or my [...] MAR Action Action Date Dose Rate Site fentaNYL (SUBLIMAZE) preservative free injection As needed, Starting on 12/15/19 at 1006, Anesthesia Intra-op Given 12/15/2019 10:15 AM CDT 25 mcg Given 12/15/2019 10:06 AM CDT 75 mcg ketorolac (TORADOL) injection As needed, Starting on 12/15/19 at 1020, Anesthesia Intra-op Given 12/15/2019 10:20 AM CDT 15 mg lidocaine (XYLOCAINE) 20 mg/mL (2 %) preservative free injection As needed, Starting on 12/15/19 at 1006, Anesthesia Intra-op Given 12/15/2019 10:06 AM CDT 100 mg midazolam (VERSED) preservative free injection Administer over 2 Minutes, As needed, Starting on 12/15/19 at 1000, Anesthesia Intra-op Given 12/15/2019 10:00 AM CDT 2 mg ondansetron (ZOFRAN) injection 4 mg 4 mg, intravenous, Administer over 2 Minutes, Every 4 hours PRN, nausea, vomiting, Starting on 12/14/19 at 1705 Given 12/15/2019 10:20 AM CDT 4 mg Given 12/14/2019 5:09 PM CDT 4 mg propofoL (DIPRIVAN) IV As needed, Starting on 12/15/19 at 1006, Anesthesia Intra-op Given 12/15/2019 10:06 AM CDT 100 mg propofoL (DIPRIVAN) IV Continuous PRN, Starting on 12/15/19 at 1007, Anesthesia Intra-op Rate/Dose Change 12/15/2019 10:21 AM CDT 75 mcg/kg/min 49.01 mL/hr Rate/Dose Change 12/15/2019 10:16 AM CDT 125 mcg/kg/min 81 .68 mL/hr New Bag 12/15/2019 10:07 AM CDT 150 mcg/kg/min 98.01 mL /hr sodium chloride 0.9% infusion Continuous PRN, Starting on 12/15/19 at 1000, Anesthesia Intra-op New Bag 12/15/2019 10:00 AM CDT documented in this encounter Care Teams Bobbin Disker Relationship Specialty Start Date End Date Venecia Turner MD 4 [facility] [address] [facility] [address] [place] [address] PCP - General 12/11/19 07/21/21 Jarred Roy MD 2 [facility] [address] [place] [address] 01/30/19 documented as of this encounter
--- OUTSIDE RECORDS SUMMARY | 2024-05-10 20:18 | XMS_ITS | Encounter Summary ---
Author Organization [facility] Address [address] [facility] [address] [place] [address] Care Team Providers Care Electronic Publishing Specialist Name Role Phone Jarred Roy MD Unavailable [phone] Venecia Turner MD Primary Care Provider [phone] Reason for Visit * Reason Comments Abscess Pelvic area Encounter Details Date Type Department Care Team (Late st Contact Info) Description 12/12/2019 12:20 PM CDT Office Visit [facility] [address] [facility] [address] [place] [address] Bryson Clark MD [address] [place] [address] [address] [place] [address] Abscess (Primary Dx) Social History Tobacco Use Types Packs/Day Years Used Date Smoking Tobacco: Never Smokeless Tobacco: Never Alcohol Use Standard Drinks/Week Comments No 0 (1 standard drink = 0.6 oz pur e alcohol) Comments No Sex and Gender Information Value Date Recorded Sex Assigned at Not on file 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 Gender Identity Not on file Sexual Orientation Not on file documented as of this encounter Last Filed Vital Signs Vital Sign Reading Time Taken Comments Blood Pressure 115/76 12/12/2019 11:53 AM CDT Pulse 88 12/12/2019 11:53 AM CDT Temperature 36.2 ??C (97.1 ??F) 12/12/2019 11:53 AM C DT Respiratory Rate - - Oxygen Saturation - - Inhaled Oxygen Concentration - - Weight 108.4 kg (239 lb) 12/12/2019 11:53 AM CDT Height 165.1 cm (5' 5 ) 12/12/2019 11:53 AM CDT Body Mass Index 39.77 12/12/2019 11:53 AM CDT documented in this encounter Progress Notes * Bryson Clark MD - 12/12/2019 12:20 PM CDT Images from the original note were not included. Surgery Consult Subjective: Patient Name: Mary Licona Date of Visit: 12/15/19 HPI: Mary Licona is a 19 y.o. female presenting for surgical evaluation of a mons pubic abscess. The patient was initially seen in the ER yesterday where an incision and drainage was performed. She was referred to surgery for further wound care and adjustments of the packing. She has pain associated with the abscess described as a dull ache but can be sharp at times. It is worsened with pressure over the area. She denies having abscesses like this in the past. Chief Complaint: Abscess (Pelvic area) Referred by: Venecia Turner MD Allergies as of 12/12/2019 ??? (No Known Allergies) No current facility-administered medications for this visit. No current outpatient medications on file. Facility-Administered Medications Ordered in Other Visits: ??? acetaminophen (TYLENOL) tablet 650 mg, 650 mg, oral, Q4H PRN, 650 mg at 12/15/19 1116 ??? cefepime (MAXIPIME) 2,000 mg in sodium chloride 0.9% 100 mL IVPB, 2,000 mg, intravenous, Q8H [place], Last Rate: 200 mL/hr at 12/15/19 0642, 2,000 mg at 12/15/19 0642 ??? clindamycin (CLEOCIN) 900 mg/50 mL in dextrose 5% (premix) 900 mg, 900 mg, intravenous, Q8H [place], Last Rate: 100 mL/hr at 12/15/19 0607, 900 mg at 12/15/19 0607 ??? enoxaparin (LOVENOX) syringe 40 mg, 40 mg, subcutaneous, Daily-2100 ??? ondansetron (ZOFRAN) injection 4 mg, 4 mg, intravenous, Q4H PRN, 4 mg at 12/15/19 1020 ??? oxyCODONE (ROXICODONE) tablet 5 mg, 5 mg, oral, Q4H PRN, 5 mg at 12/14/19 1451 Past Medical History: Diagnosis Date ??? HX OTHER MEDICAL T&A in 2011; Comments: MIRANDA 05/20/2014 - ??? HX OTHER MEDICAL elbow fracture 02-06-15.; Comments: MIRANDA 02/09/2015 - Past Surgical History: Procedure Laterality Date ??? TONSILLECTOMY/ADENOIDECTOMY Bilateral Family History Problem Relation Age of Onset ??? Hypertension Father Hypertension; ??? Other Mother Alive and well at age 44.; Social History Socioeconomic History ??? Marital status: Single Spouse name: Not on file ??? Number of children: Not on file ??? Years of education: Not on file ??? Highest education level: Not on file Occupational History ??? Not on file Social Needs ??? Financial resource strain: Not on file ??? Food insecurity Worry: Not on file Inability: Not on file ??? Transportation needs Medical: Not on file Non-medical: Not on file Tobacco Use ??? Smoking status: Never Smoker ??? Smokeless tobacco: Never Used Substance and Sexual Activity ??? Alcohol use: No ??? Drug use: Never ??? Sexual activity: Defer Lifestyle ??? Physical activity Days per week: Not on file Minutes per session: Not on file ??? Stress: Not on file Relationships ??? Social connections Talks on phone: Not on file Gets together: Not on file Attends zoroastrian service: Not on file Active member of club or organization: Not on file Attends meetings of clubs or organizations: Not on file Relationship status: Not on file ??? Intimate partner violence Fear of current or ex partner: Not on file Emotionally abused: Not on file Physically abused: Not on file Forced sexual activity: Not on file Other Topics Concern ??? Not on file Social History Narrative ??? Not on file Review of Systems Constitutional: Negative for activity change. HENT: Negative for hearing loss and sore throat. Eyes: Negative for visual disturbance. Respiratory: Negative for cough and shortness of breath. Cardiovascular: Negative for chest pain. Gastrointestinal: Negative for abdominal pain, constipation, diarrhea, nausea and vomiting. Genitourinary: Negative for dysuria. Musculoskeletal: Negative for back pain. Neurological: Negative for dizziness and syncope. Psychiatric/Behavioral: Negative for agitation and confusion. Objective: Vitals BP 115/76 (BP Location: Right arm, Patient Position: Sitting) Pulse 88 Temp 36.2 ??C (97.1 ??F) Ht 165.1 cm (5' 5 ) Wt 108.4 kg (239 lb) LMP 12/03/2019 BMI 39.77 kg/m?? Physical Exam Constitutional: The patient is oriented to person, place, and time. They appear well-nourished. No distress. HENT: Head: Normocephalic and atraumatic. Eyes: Pupils are equal, round, and reactive to light. Neck: No thyromegaly present. Cardiovascular: Normal rate and regular rhythm. Pulmonary/Chest: Effort normal and breath sounds normal. Abdominal: Soft. non distended. There is no tenderness. No hernia. Genitourinary: Rectum normal. 1 cm opening in the mons pubis region. Surrounding induration and erythema. Minimal seropurulent drainage Musculoskeletal: Normal range of motion. Neurological: alert and oriented to person, place, and time. Skin: Skin is warm and dry. Psychiatric: normal mood and affect. Assessment/Plan Diagnoses and all orders for this visit: Abscess (Primary) Assessment & Plan: The packing has been changed and the family shown how to do this. This will need to be done on daily basis. There is still some induration as well as erythema. We discussed that if this would spread or worsen she may need a more formal drainage in the OR. We will see her back in 1 week. If things worsen before that time she will call us sooner Bryson lCark MD 11:45 AM 12/15/2019 documented in this encounter Miscellaneous Notes * Assessment & Plan Note - Bryson Clark MD - 12/15/2019 11:44 AM CDTAssociated Problem(s): Abscess (Deleted) The packing has been changed and the family shown how to do this. This will need to be done on daily basis. There is still some induration as well as erythema. We discussed that if this would spread or worsen she may need a more formal drainage in the OR. We will see her back in 1 week. If things worsen before that time she will call us sooner documented in this encounter Plan of Treatment Not on file documented as of this encounter Visit Diagnoses Diagnosis Abscess- Primary Cellulitis and abscess of unspecified site documented in this encounter Care Teams Electronic Publishing Specialist Relationship Specialty Start Date End Date Venecia [place] MD [address] [facility] [address] [facility] [address] [place] [address] PCP - General 12/11/19 07/21/21 Jarred Roy MD 2 [facility] [address] [place] [address] 01/30/19 documented as of this encounter
--- OUTSIDE RECORDS SUMMARY | 2024-05-10 20:18 | XMS_ITS | Encounter Summary ---
Author Organization [facility] Healthcare Address [address] [place] [address] Care Team Providers Care Cloth Dyeing Range Tender Name Role Phone Jarred Roy MD Unavailable [phone] Venecia Turner MD Primary Care Provider [phone] Elma Echevarria NP Unavailable Encounter Details Date Type Department Care Team (Late st Contact Info) Description 03/20/2020 9:35 AM VEHICLE DISMANTLER Lab [facility] [address] [place] [address] Maliha Baptiste MD [address] [place] [address] [place] [address] Larua Connor NP [address] [place] [address] DR LEXIE Gramajo [address] [address] Discharge Disposition: Discharge to home or self care Social History Tobacco Use Types Packs/Day Years Used Date Smoking Tobacco: Never Smokeless Tobacco: Never Alcohol Use Standard Drinks/Week Comments No 0 (1 standard drink = 0.6 oz pur e alcohol) Comments Unknown Sex and Gender Information Value Date Recorded Sex Assigned at Not on file Legal Sex Female 11:28 PM VEHICLE DISMANTLER Gender Identity Not on file Sexual Orientation Not on file documented as of this encounter Discharge Disposition Disposition Code Departure Means Destination Discharge to home or self care documented in this encounter Plan of Treatment Not on file documented as of this encounter Procedures Procedure Name Priority Date/Time Associated Diagnosis Comments EGFR Routine 03/20/2020 9:35 AM VEHICLE DISMANTLER DIFFERENTIAL AUTO Routine 03/20/2020 9:3 5 AM VEHICLE DISMANTLER CBC WITH AUTO DIFFERENTIAL Routine 03/20/2020 9:35 AM VEHICLE DISMANTLER TSH Routine 03/20/2020 9:35 AM VEHICLE DISMANTLER T4, FREE Routine 03/20/2020 9:35 AM VEHICLE DISMANTLER HEMOGLOBIN A1C Routine 03/20/2020 9:35 AM VEHICLE DISMANTLER COMPREHENSIVE METABOLIC PANEL Routine 03/20/2020 9:35 AM VEHICLE DISMANTLER documented in this encounter Results * eGFR (03/20/2020 9:35 AM VEHICLE DISMANTLER) eGFR 133 mL/min/1.7 3 m2 [facility] ([place]) Comment: Interpretive Data Reference Interval Normal ?>/= 90 mL/min/1.73m2 Mildly decreased* ? 60 - 89 mL/min/1.73m2 Mildly to moderately decreased ?45 - 59 mL/min/1.73m2 Moderately to severely decreased ??30 - 44 mL/min/1.73m2 Severely decreased ?15 - 29 mL/min/1.73m2 Kidney Failure ?< 15 ??mL/min/1.73m2 *Relative to young adult level If -Singaporean multiply value by 1.16. Estimated glomerular filtration rate is determined by the CKD-EPI equation recommended by the National Kidney Foundation (KDIGO 2012 Clinical Practice Guideline for the Evaluation and Management of Chronic Kidney Disease. Kidney Intnl Suppl May 2012;3:1). The CKD-EPI equation should not be used for patients with unstable renal function and has not been validated in children and those over 70. Current interpretive data was last reviewed 2015. Blood specimen (specimen) 03/20/2020 9:35 AM VEHICLE DISMANTLER 03/20/2020 10:37 AM VEHICLE DISMANTLER us Laura Connor NP LAB BLOOD ORDERABLES Dilcia miller Result [facility]AY [facility] 1 [facility] Department [place] [address] * Differential, auto (03/20/2020 9:35 AM VEHICLE DISMANTLER) Neutrophil abs 2.8 1.7 - 6.5 K/cumm [facility] ([place]) Imm gran abs 0.0 0.0 - 0.1 K/cumm [facility] ([place]) Lymphocyte abs 1.6 0.8 - 3.3 K/cumm [facility] ([place]) Monocyte abs 0.5 0.2 - 0.8 K/cumm [facility] ([place]) Eosinophil abs 0.2 0.0 - 0.5 K/cumm [facility] ([place]) Basophil abs 0.0 0.0 - 0.1 K/cumm [facility] ([place]) Neutrophil pct 55.3 % [facility] ([place] Comment: Interpretive Data Percent cell count reference ranges are not reported, since discordance with absolute values may lead to misinterpretation of CBC data. Current Interpretive Data was last revised on 2017. Imm gran pct 0.4 % [facility] ([place]) Comment: Interpretive Data Percent cell count reference ranges are not reported, since discordance with absolute values may lead to misinterpretation of CBC data. Current Interpretive Data was last revised on 2017. Lymphocyte pct 31.9 % [facility] ([place] Comment: Interpretive [...] was last revised on 2017. Eosinophil pct 3.1 % [facility] ([place]) Comment: Interpretive [...] Data was last revised on 2017. Blood specimen (specimen) 03/20/2020 9:35 AM VEHICLE DISMANTLER 03/20/2020 10:37 AM VEHICLE DISMANTLER Laura Connor AGENCY APPOINTMENTS SUPERVISOR LAB BLOOD ORDERABLES Dilcia l Result Performing Organization Address City/[facility]/ZIP Co de Phone Number [facility] [place] [address] * T4, free (03/20/2020 9:35 AM VEHICLE DISMANTLER) Free T4 1.00 0.90 - 1.70 ng/dL [facility] Blood specimen (specimen) 03/20/2020 9:35 AM VEHICLE DISMANTLER 03/20/2020 10:37 AM VEHICLE DISMANTLER Laura Connor AGENCY APPOINTMENTS SUPERVISOR LAB BLOOD ORDERABLES Dilcia l Result [facility] ([place] [address] [facility] [place] [address] * TSH (03/20/2020 9:35 AM VEHICLE DISMANTLER) Thyroid Stimulating Hormone 1.17 0.30 - 4.20 mcIUnit/mL [facility] ([place]) Blood specimen (specimen) 03/20/2020 9:35 AM VEHICLE DISMANTLER 03/20/2020 10:37 AM VEHICLE DISMANTLER Laura Connor AGENCY APPOINTMENTS SUPERVISOR LAB BLOOD ORDERABLES Dilcia l Result Performing Organization Address City/[facility]/ZIP Co de Phone Number [facility] ([place] [address] [facility] [place] [address] * Hemoglobin A1c (03/20/2020 9:35 AM VEHICLE DISMANTLER) Hgb A1C 4.7 4.0 - 5.6 % [facility] ([place]) Estimated Average Glucose 88 mg/dL [facility] ([place]) Comment: The ADA recommends reporting an estimated Average Glucose (eAG) with all Hemoglobin A1c results using the equation derived from a study of 507 normal and diabetic adults. ??Minority populations were underrepresented and children were not included. ?? (Diabetes Care 31:7259-0812, 2008). ??The eAG is not equivalent to a fasting glucose. Blood specimen (specimen) 03/20/2020 9:35 AM VEHICLE DISMANTLER 03/20/2020 10:37 AM VEHICLE DISMANTLER Laura Connor AGENCY APPOINTMENTS SUPERVISOR LAB BLOOD ORDERABLES Dilcia l Result Performing Organization Address City/[facility] Co de Phone Number [facility] ([place]) [address] [facility] [place] [address] * (ABNORMAL) Comprehensive metabolic panel (03/20/2020 9:35 AM VEHICLE DISMANTLER) Sodium 139 135 - 145 mmol/L [facility] ([place]) Potassium, pl 4.6 3.3 - 4.9 mmol/L [facility] ([place]) Chloride 104 97 - 110 mmol/L [facility] ([place] CO2 26 22 - 32 mmol/L [facility] ([place] Anion gap 9 2 - 15 mmol/L [facility] ([place]) BUN 8 8 - 25 mg/dL [facility] ([place] Creatinine 0.57(L) 0.60 - 1.10 mg/dL [facility] ([place] Glucose 89 70 - 199 mg/dL [facility] ([place] Comment: Interpretive Data Fasting glucose >/= [...] interpretive data was last revised 2017. Calcium 9.3 8.5 - 10.3 mg/dL [facility]) Bilirubin, total 0.2 0.1 - 1.2 mg/dL [facility] ([place]) Protein, pl 6.7 6.5 - 8.5 g/dL [facility]) Albumin 4.4 3.5 - 5.0 g/dL [facility]) Alk phos 64 40 - 130 Units/L [facility]) ALT 21 7 - 45 Units/L [facility]) AST 22 10 - 45 Units/L [facility] ([place]) Comment:Slightly Hemolyzed S pecimen Blood specimen (specimen) 03/20/2020 9:35 AM VEHICLE DISMANTLER 03/20/2020 10:37 AM VEHICLE DISMANTLER Laura Connor AGENCY APPOINTMENTS SUPERVISOR LAB BLOOD ORDERABLES Dilcia miller Result [facility] ([place] Department [place] [address] * CBC with auto differential (03/20/2020 9:35 AM VEHICLE DISMANTLER) WBC 5.1 3.8 - 9.9 K/cumm [facility] ([place]) Hgb 12.8 11.9 - 15.5 g/dL [facility] ([place]) Hct 39.2 35.6 - 45.5 % [facility]) Plt 286 150 - 400 K/cumm [facility] ([place]) MPV 9.2 9.1 - 12.3 fL [facility]) RBC 4.17 3.90 - 5.20 M/cumm [facility] ([place]) MCV 94.0 81.3 - 96.4 fL [facility] MCH 30.7 27.1 - 33.3 pg [facility] MCHC 32.7 32.3 - 35.7 g/dL [facility]) RDW CV 12.9 11.1 - 14.9 % [facility] RDW SD 44.1 35.7 - 48.1 fL [facility] ([place]) NRBC abs 0.00 0.00 - 0.01 K/cumm [facility] Blood specimen (specimen) 03/20/2020 9:35 AM VEHICLE DISMANTLER 03/20/2020 10:37 AM VEHICLE DISMANTLER Narrative [facility] ([place] - 03/20/2020 10:43 AM VEHICLE DISMANTLER fax results to [phone] Laura Connor AGENCY APPOINTMENTS SUPERVISOR LAB BLOOD ORDERABLES Dilcia l Result [facility] ([place]) 1 [facility] Department [place] [address] documented in this encounter Visit Diagnoses Not on filedocumented in this encounter Care Teams Cloth Dyeing Range Tender Relationship Specialty Start Date End Date Venecia Turner MD [address] [place] [address] DR LEXIE Gramajo [facility] [address] [place] [address] PCP - General 12/11/19 07/21/21 Jarred Roy MD 2 [facility] [address] [place] [address] 01/30/19 Elma Echevarria NP [address] [place] [address] DR LEXIE Gramajo [facility] [address] [place] [address] Nurse Practitioner General Surgery 12/16/19 documented as of this encounter
--- OUTSIDE RECORDS SUMMARY | 2024-05-10 20:18 | XMS_ITS | Encounter Summary ---
Author Organization [facility] Address [address] [place] [address] Care Team Providers Care Record Label Internship Name Role Phone Jarred Roy MD Unavailable [phone] Venecia Turner MD Primary Care Provider [phone] EyeElma charles NP Unavailable Reason for Visit * Reason Comments Wound Check Encounter Details Date Type Department Care Team (Late st Contact Info) Description 12/24/2019 9:00 AM CDT Office Visit [facility] [address] [facility] [address] [place] [address] EyeElma charles NP 4 [facility] [address] [place] [address] Abscess (Primary Dx) Social History Tobacco Use Types Packs/Day Years Used Date Smoking Tobacco: Never Smokeless Tobacco: Never Alcohol Use Standard Drinks/Week Comments No 0 (1 standard drink = 0.6 oz pur e alcohol) Comments No Sex and Gender Information Value Date Recorded Sex Assigned at Not on file Legal Sex Female 11:28 PM AIRCRAFT MAINTENANCE DIRECTOR Gender Identity Not on file Sexual Orientation Not on file documented as of this encounter Last Filed Vital Signs Vital Sign Reading Time Taken Comments Blood Pressure 101/64 12/24/2019 8:58 AM CDT Pulse 69 12/24/2019 8:58 AM CDT Temperature 35.8 ??C (96.4 ??F) 12/24/2019 8:58 AM CD T Respiratory Rate - - Oxygen Saturation 97% 12/24/2019 8:58 AM CDT Inhaled Oxygen Concentration - - Weight 109.3 kg (241 lb) 12/24/2019 8:58 AM CDT Height 165.1 cm (5' 5 ) 12/24/2019 8:58 AM CDT Body Mass Index 40.1 12/24/2019 8:58 AM CDT documented in this encounter Progress Notes * Elma Echevarria NP - 12/24/2019 9:00 AM CDT Subjective Mary Licona presents to the clinic 2 weeks following incision and drainage of mons pubis abscess. Eating a regular diet without difficulty. Bowel movements are Normal. The patient is not having any pain..continues packing daily. Still on oral antibiotics Objective BP 101/64 (BP Location: Right arm, Patient Position: Sitting) Pulse 69 Temp (!) 35.8 ??C (96.4 ??F) Ht 165.1 cm (5' 5 ) Wt 109.3 kg (241 lb) LMP 12/22/2019 SpO2 97% BMI 40.10 kg/m?? General: appears stated age, cooperative, no distress and morbidly obese Abdomen: soft, bowel sounds active, non-tender Incision: healing well, no erythema, no hernia, no seroma, no swelling, drainage blood tinged serous, wound bed is 1cm deep with beefy bed, repacked with 1/2'' plain packing, no dehiscence Assessment/Plan Doing well postoperatively. 1. Continue any current medications. 2. Wound care discussed. 3. Pt is to increase activities as tolerated. 4. Follow up: as needed documented in this encounter Plan of Treatment Not on file documented as of this encounter Visit Diagnoses Diagnosis Abscess- Primary Cellulitis and abscess of unspecified site documented in this encounter Care Teams Record Label Internship Relationship Specialty Start Date End Date Venecia Turner MD [address] [place] [address] [place] [address] PCP - General 12/11/19 07/21/21 Jarred Roy MD 2 [facility] [address] [place] [address] 01/30/19 Elma Echevarria NP [address] [facility] [address] LEXIE Gramajo [facility] [address] [place] [address] Nurse Practitioner General Surgery 12/16/19 documented as of this encounter
--- OUTSIDE RECORDS SUMMARY | 2024-05-10 20:18 | XMS_ITS | Encounter Summary ---
Author Organization [facility] Healthcare Address [address] [place] [address] Care Team Providers Care Tubing Mill Setter Name Role Phone Jarred Roy MD Unavailable [phone] Venecia Turner MD Primary Care Provider [phone] Elma Echevarria NP Unavailable Reason for Referral * Diagnostic Imaging (Routine) - Closed Specialty Diagnoses / Procedures Referred By Loyd medrano Referred To Contact Diagnoses Encounter for supervision of normal Procedures US Ob Under 14 Weeks Janett Robles NP [address] [facility] [address] LEXIE Gramajo [address] [address] Phone: tel: fax: [address] [phone] Referral ID Status Reason Start Date Expiration Date Visits Re quested Visits Authorized [id number] Closed 11/24/2020 12/24/2021 1 1 Reason for Visit * Diagnostic Imaging (Routine) - Closed Specialty Diagnoses / Procedures Referred By Loyd medrano Referred To Contact Diagnoses Encounter for supervision of normal Procedures US Ob Under 14 Weeks Janett Robles NP [address] [facility] [address] LEXIE Gramajo [address] [address] Phone: tel: fax: [address] [phone] Referral ID Status Reason Start Date Expiration Date Visits Re quested Visits Authorized [id number] Closed 11/24/2020 12/24/2021 1 1 Encounter Details Date Type Department Care Team (Latest Contact Info) Description 12/24/2020 10:00 AM CDT - 12/24/2020 11:59 PM CDT Hospital Encounter [facility] 1 [place] [address] Neo Chakraborty MD [address] [facility] [address] LEXIE Gramajo [address] [address] Janett Robles NP [address] [facility] [address] LEXIE Gramajo [address] [address] Encounter for supervision of normal Discharge Disposition: Discharge to home or self care Social History Tobacco Use Types Packs/Day Years Used Date Smoking Tobacco: Never Smokeless Tobacco: Never Alcohol Use Standard Drinks/Week Comments No 0 (1 standard drink = 0.6 oz pur e alcohol) Comments Unknown Sex and Gender Information Value Date Recorded Sex Assigned at Not on file Legal Sex Female 11:28 PM SECOND BALLER Gender Identity Not on file Sexual Orientation Not on file documented as of this encounter Medications at Time of Discharge bacitracin (bacitracin) 500 unit/gram ointment Apply topically 2 (two) times a day 02/04/2019 2 HYDROcodone-acet aminophen (NORCO) 5-325 mg per [...] WEEKS Schedule Routine, Read Routine (OP Routine) 12/24/2020 10:55 AM CDT Encounter for supervision of normal documented in this encounter Results * US Ob Under 14 Weeks (12/24/2020 10:55 AM CDT) Anatomical Region Laterality Modality Abdomen N/A Ultrasound 12/24/2020 12:2 0 PM CDT Narrative 12/24/2020 12:22 PM CDT EXAM DESCRIPTION: ?? US OB UNDER 14 WEEKS REASON FOR STUDY: ?? Dating examination Beta-hCG: ?? None available TECHNIQUE: ?? Transabdominal and transvaginal images acquired of the pelvis. COMPARISON: ?? None available FINDINGS: Clinical gestational age: ?? 9 weeks 3 days Clinical estimated Due Date: ??July 26, 2021 Intrauterine gestational sac: ?? Present Yolk sac: ?? Present Subchorionic bleed: ??No Placenta: ?? Not identified Mean sac diameter: ?? None applicable cm Raymond-rump length: ?? 2.36 cm heart rate: ?? 178 bpm Gestational age by this ultrasound: ?? 9 weeks 0 days CICI by this ultrasound: ?? July 29, 2021 Right Ovary/Adnexa: The right ovary is not discretely identified. ??No adnexal mass. Left Ovary/Adnexa: The left ovary is not discretely identified. ??No adnexal mass. Free Fluid: ??None. Other Findings: ??None. IMPRESSION: ?? Single live intrauterine . Calculated gestational age of 9 weeks 0 days expected delivery date of July 29, 2021. THIS IS AN ELECTRONICALLY VERIFIED FINAL REPORT 12/24/2020 12:22 PM - Electronically signed by Black Sheppard M.D. JA: [email or web address] Fisher: ??12/24/2020 12:22 PM T: ??12/24/2020 12:22 PM Report ID: [id number] Reading Location: ??[id number] Procedure Note Black Sheppard MD - 12/24/2020 EXAM DESCRIPTION: US OB UNDER 14 WEEKS REASON FOR STUDY: Dating examination Beta-hCG: None available TECHNIQUE: Transabdominal and transvaginal images acquired of thepelvis. COMPARISON: None available FINDINGS: Clinical gestational age: 9 weeks 3 days Clinical estimated Due Date: July 26, 2021 Intrauterine gestational sac: Present Yolk sac: Present Subchorionic bleed: No Placenta: Not identified Mean sac diameter: None applicable cm Raymond-rump length: 2.36 cm heart rate: 178 bpm Gestational age by this ultrasound: 9 weeks 0 days CICI by this ultrasound: July 29, 2021 Right Ovary/Adnexa: The right ovary is not discretely identified. Noadnexal mass. Left Ovary/Adnexa: The left ovary is not discretely identified. Noadnexal mass. Free Fluid: None. Other Findings: None. IMPRESSION: Single live intrauterine . Calculated gestationalage of 9 weeks 0 days expected delivery date of July 29, 2021. THIS IS AN ELECTRONICALLY VERIFIED FINAL REPORT 12/24/2020 12:22 PM - Electronically signed by Black Sheppard M.D. JA: [email or web address] Report ID: [id number] Reading Location: [id number] us Janett Robles PAINTING SUPERVISOR IMG OB US PROCEDURES Final R esult documented in this encounter Visit Diagnoses Diagnosis Encounter for supervision of normal documented in this encounter Care Teams Tubing Mill Setter Relationship Specialty Start Date End Date Venecia Turner MD [address] [facility] [address] LEXIE Gramajo [facility] [address] [place] [address] PCP - General 12/11/19 07/21/21 Jarred Roy MD 2 [facility] [address] [place] [address] 01/30/19 Elma Echevarria NP [address] [place] [address] DR LEXIE Gramajo [facility] [address] [place] [address] Nurse Practitioner General Surgery 12/16/19 documented as of this encounter
--- OUTSIDE RECORDS SUMMARY | 2024-05-10 20:18 | XMS_ITS | Encounter Summary ---
Author Organization [facility] Healthcare Address [address] [place] [address] Care Team Providers Care Potato Picker Name Role Phone Jarred Roy MD Unavailable [phone] Venecia Turner MD Primary Care Provider [phone] Elma Echevarria NP Unavailable Encounter Details Date Type Department Care Team (Late st Contact Info) Description 07/08/2020 Telephone [facility] 1 [place] [address] Deanne Blankenship RDMS Social History Tobacco Use Types Packs/Day Years Used Date Smoking Tobacco: Never Smokeless Tobacco: Never Alcohol Use Standard Drinks/Week Comments No 0 (1 standard drink = 0.6 oz pur e alcohol) Comments Unknown Sex and Gender Information Value Date Recorded Sex Assigned at Not on file Legal Sex Female 11:28 PM APARTMENT MANAGER Gender Identity Not on file Sexual Orientation Not on file documented as of this encounter Miscellaneous Notes * Telephone Encounter - Deanne Blankenship RDMS - 07/08/2020 2:27 PM APARTMENT MANAGER Covid 19 prescreen completed TMENT MANAGER documented in this encounter Plan of Treatment Not on file documented as of this encounter Visit Diagnoses Not on filedocumented in this encounter Care Teams Potato Picker Relationship Specialty Start Date End Date Venecia Turner MD [address] [place] [address] DR LEXIE Gramajo [facility] [address] [place] [address] PCP - General 12/11/19 07/21/21 Jarred Roy MD 2 [facility] [address] [place] [address] 01/30/19 EyeElma charles NP [address] [facility] [address] LEXIE Gramajo [facility] [address] [place] [address] Nurse Practitioner General Surgery 12/16/19 documented as of this encounter
--- OUTSIDE RECORDS SUMMARY | 2024-05-10 20:18 | XMS_ITS | Encounter Summary ---
Author Organization [facility] Address [address] [place] [address] Care Team Providers Care Director Of Outpatient Services Name Role Phone Jarred Roy MD Unavailable [phone] Venecia Turner MD Primary Care Provider [phone] EyersElma NP Unavailable Encounter Details Date Type Department Care Team (Late st Contact Info) Description 12/17/2019 Orders Only [facility] [address] [facility] [address] [place] [address] Bryson Clark MD [address] [place] [address] [address] [place] [address] Social History Tobacco Use Types Packs/Day Years Used Date Smoking Tobacco: Never Smokeless Tobacco: Never Alcohol Use Standard Drinks/Week Comments No 0 (1 standard drink = 0.6 oz pur e alcohol) Comments No Sex and Gender Information Value Date Recorded Sex Assigned at Not on file Legal Sex Female 11:28 PM 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 Gender Identity Not on file Sexual Orientation Not on file documented as of this encounter Ordered Prescriptions Prescription Sig Dispense Quantity Refills Last Filled Start Date End Date sulfamethoxazole-t rimethoprim (BACTRIM DS) 800-160 mg per tablet Take 1 tablet by mouth 2 (two) times a day for 10 days 20 tablet 12/17/2019 12/27/2019 documented in this encounter Plan of Treatment Not on file documented as of this encounter Visit Diagnoses Not on filedocumented in this encounter Discontinued Medications Medication Sig Discontinue Reason Start Date End Da te sulfamethoxazole-trimeth oprim (BACTRIM DS) 800-160 mg per tablet Take 1 tablet by mouth 2 (two) times a day for 10 days Reorder 12/12/2019 12/17/2019 documented as of this encounter Care Teams Director Of Outpatient Services Relationship Specialty Start Date End Date Venecia Turner MD [address] [facility] [address] LEXIE Gramajo [facility] [address] [place] [address] PCP - General 12/11/19 07/21/21 Jarred Roy MD 2 [facility] [address] [place] [address] 01/30/19 Elma Echevarria NP [address] [facility] [address] LEXIE Gramajo [facility] [address] [place] [address] Nurse Practitioner General Surgery 12/16/19 documented as of this encounter
--- OUTSIDE RECORDS SUMMARY | 2024-05-10 20:18 | XMS_ITS | Encounter Summary ---
Author Organization [facility] Healthcare Address [address] [place] [address] Care Team Providers Care Sales Account Executive Name Role Phone Jarred Roy MD Unavailable [phone] Venecia Turner MD Primary Care Provider [phone] Reason for Visit * Reason Comments Abscess Encounter Details Date Type Department Care Team (Late st Contact Info) Description 12/15/2019 9:50 AM CDT - 12/15/2019 11:00 AM CDT Surgery [facility] Operating Room [address] [place] [address] Bryson Clark MD [address] [place] [id number] INCISION AND DRAINAGE - ABSCESS Surgery Details Date/Time Status Location OR Service Patient Class Case Class Case Type Trauma Case? 12/15/2019 9:50 AM Posted [facility] OPERATING ROOM OR General Surgery Inpatient Elective Panel 1 Procedure LRB Anes Op Region Wound Class Comments INCISION AND DRAINAGE - ABSCESS N/A Choice Class IV - Dirty or Infected Surgeon Surgeon Role Service Panel Bryson Clark MD Primary General Surgery 1 documented in this encounter Social History Tobacco Use Types Packs/Day Years Used Date Smoking Tobacco: Never Smokeless Tobacco: Never Alcohol Use Standard Drinks/Week Comments No 0 (1 standard drink = 0.6 oz pur e alcohol) Comments No Sex and Gender Information Value Date Recorded Sex Assigned at Not on file Legal Sex Female 11:28 PM [employer] Gender Identity Not on file Sexual Orientation Not on file documented as of this encounter Last Filed Vital Signs Vital Sign Reading Time Taken Comments Blood Pressure 116/56 12/15/2019 10:55 AM CDT Pulse 59 12/15/2019 10:55 AM CDT Temperature 36.4 ??C (97.6 ??F) 12/15/2019 10:55 AM C DT Respiratory Rate 18 12/15/2019 10:55 AM CDT Oxygen Saturation 100% 12/15/2019 10:55 AM CDT Inhaled Oxygen Concentration - - Weight 108.9 kg (240 lb) 12/14/2019 10:33 AM CDT Height 165.1 cm (5' 5 ) 12/14/2019 10:33 AM CDT Body Mass Index 39.94 12/14/2019 10:33 AM CDT documented in this encounter Discharge Summaries * David Mosquera Jr., MD - 12/16/2019 2:32 PM CDT [place], [place] Hospitalist Discharge Summary Patient Name: Jamal Licona Patient : 2000 Room/Bed: [id number] Admission Date/Time: 12/14/2019 10:23 AM Discharge date: 12/16/2019 Admitting Physician: Aleksandra Reece MD Discharge Physician: David Mosquera Jr., MD Consults: Treatment Team: Consulting Physician: Bryson Clark MD Discharge Diagnoses: Principal Problem: Abscess Active Problems: Morbid obesity ([facility]) Hospital Course: For full details of presentation including detailed history, past medical, surgical, social, family history and detailed ROS, as well as detailed exam and labs at time of presentation, please see the History and Physical. 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 General surgery was consulted and she was taken to the OR for formal I&D with more thorough debridement. Wound culture collected 12/13 is growing MSSA. Treated with 3 days of cefepime and clindamycin while inpatient, 10 day course of Bactrim ordered by surgery on discharge. Discussed wound care plan with the patient and her mother. Issues to be addressed with Primary Care or Other Outpatient Physician (Unresulted Labs, Repeat Testing, Medication Adjustments, etc) General surgery clinic follow-up planned in 1 week. Discharge Exam: Vitals: 12/15/19 1055 12/15/19 1513 12/15/19 2300 12/16/19 0706 BP: 116/56 112/65 (!) 100/42 116/52 BP Location: Right arm Right arm Right arm Patient Position: Sitting Lying Sitting Pulse: 59 57 69 65 Resp: 18 16 16 16 Temp: 36.4 ??C (97.6 ??F) 36.2 ??C (97.1 ??F) 36.1 ??C (96.9 ??F) 36.2 ??C (97.2 ??F) TempSrc: Temporal Temporal Temporal SpO2: 100% 100% 99% Weight: Height: Gen: awake, no acute distress, pleasant and cooperative, resting comfortably in bed Neuro: no focal deficits, CN II-XII grossly intact Eyes: extraocular movement intact, sclerae anicteric HENT: supple, trachea midline, no thrush, mucosa moist, no JVD CV: regular rate and rhythm; no murmurs, rubs, or gallops; no peripheral edema Pulm: clear to auscultation bilaterally; no wheezes, rales, or rhonchi GI: obese, soft, non-tender, non-distended, normal bowel sounds, no organomegaly MSK: no cyanosis, clubbing, joint swelling, joint erythema Skin: no visible erythema or acute bruising; midline mons pubis wound bandaged Psych: normal mood and affect Labs: (last 48 hours): Recent Results (from the past 48 hour(s)) Aerobic and anaerobic culture and gram stain Abscess Abdominal Collection Time: 12/15/19 10:19 AM Result Value Ref Range Direct Specimen Exam Stain: Few polymorphonuclear leukocytes seen. Few Gram Positive Cocci Report (.) Preliminary Report: Moderate Staphylococcus aureus Methicillin susceptible (MSSA) by penicillin binding protein 2a (PBP2a) testing. Susceptibility testing results to follow. Organism STAPHYLOCOCCUS AUREUS CBC with auto differential Collection Time: 12/16/19 5:13 AM Result Value Ref Range WBC 4.4 3.8 - 9.9 K/cumm Hgb 11.6 (L) 11.9 - 15.5 g/dL Hct 35.4 (L) 35.6 - 45.5 % Plt 233 150 - 400 K/cumm MPV 9.3 9.1 - 12.3 fL RBC 3.83 (L) 3.90 - 5.20 M/cumm MCV 92.4 81.3 - 96.4 fL MCH 30.3 27.1 - 33.3 pg MCHC 32.8 32.3 - 35.7 g/dL RDW CV 13.4 11.1 - 14.9 % RDW SD 45.1 35.7 - 48.1 fL NRBC abs 0.00 0.00 - 0.01 K/cumm Basic metabolic panel Collection Time: 12/16/19 5:13 AM Result Value Ref Range Sodium 137 135 - 145 mmol/L Potassium, pl 4.8 3.3 - 4.9 mmol/L Chloride 103 97 - 110 mmol/L CO2 24 22 - 32 mmol/L Anion gap 10 2 - 15 mmol/L BUN 11 8 - 25 mg/dL Creatinine 0.46 (L) 0.60 - 1.10 mg/dL Glucose 97 70 - 199 mg/dL Calcium 9.2 8.5 - 10.3 mg/dL Differential, auto Collection Time: 12/16/19 5:13 AM Result Value Ref Range Neutrophil abs 2.2 1.7 - 6.5 K/cumm Imm gran abs 0.0 0.0 - 0.1 K/cumm Lymphocyte abs 1.4 0.8 - 3.3 K/cumm Monocyte abs 0.5 0.2 - 0.8 K/cumm Eosinophil abs 0.2 0.0 - 0.5 K/cumm Basophil abs 0.0 0.0 - 0.1 K/cumm Neutrophil pct 49.6 % Imm gran pct 0.0 % Lymphocyte pct 32.7 % Monocyte pct 12.2 % Eosinophil pct 5.0 % Basophil pct 0.5 % eGFR Collection Time: 12/16/19 5:13 AM Result Value Ref Range GFR 143 mL/min/1.73 m2 Radiology: Us Abdominal Wall And Lower Back Soft Tissue Mass Result Date: 12/14/2019 Narrative: [facility] Imaging Result Name: LICONA JAMAL Gonsalves OrderingPhys: MIRANDA CARMICHAEL Age: 19 Date of : 2000 Accession Number: [id number] Date of Service: 12/14/2019 Gender: F EXAM DESCRIPTION: US ABDOMEN LIMITED REASON FOR STUDY: Red ness and lump/s to suprapubic area, persistent and oozing per patient. Duration: 1 week TECHNIQUE: Ultrasound of the superficial tissues in the right upper quadrant of the abdomen was performed with grayscale and color doppler. COMPARISON: None Sonographic interrogation of the region of soft tissueredness demonstrates evidence of scar and granulation tissue without drainable fluid collection. Wound extending to the skin surface measures approximately 0.7 by 1.9 x 0.7 cm. Impression: Evidence granulation tissue and soft tissue wound without evidence of drainable fluid collection as above. THIS IS AN ELECTRONICALLY VERIFIED FINAL REPORT 12/14/2019 12:25 PM - Electronically signed by Cassandra Arguelles AB: Report ID: [id number] Reading Location: [place] [address] Medications: Your medication list CHANGE how you take these medications Instructions Last Dose Given Next Dose Due HYDROcodone-acetaminophen 5-325 mg per tablet Commonly known as: NORCO What changed: ?? how much to take ?? when to take this ?? additional instructions Take 1 tablet by mouth every 6 (six) hours as needed for pain for up to 7 days CONTINUE taking these medications Instructions Last Dose Given Next Dose Due ibuprofen 600 mg tablet Commonly known as: ADVIL,MOTRIN Take 1 tablet (600 mg total) by mouth every 8 (eight) hours as needed for pain. Take with food. sulfamethoxazole-trimethoprim 800-160 mg per tablet Commonly known as: BACTRIM DS Take 1 tablet by mouth 2 (two) times a day for 10 days Where to Get Your Medications You can get these medications from any pharmacy Bring a paper prescription for each of these medications ?? HYDROcodone-acetaminophen 5-325 mg per tablet Patient Instructions: Activity: activity as tolerated Diet: regular diet Disposition: home Follow-up Contact Information for Follow-ups Elma Echevarria NP Specialty: General Surgery, Nurse Practitioner Relationship: Nurse Practitioner [address] [place] [address] Next Steps: Follow up Instructions: Please keep follow-up appointment scheduled on 12/18/2019 at 2:15 p.m. Questions: Instructions for follow-up (appointment date and time): Please keep follow-up appointment scheduledon 12/18/2019 at 2:15 p.m. To provider: ELMA ECHEVARRIA Total time spent on day of discharge 35 minutes Signed: David Mosquera Jr., MD Internal Medicine - Hospitalist [facility] - Adult Hospitalist Service 12/16/2019 2:33 PM Cc: Venecia Turner MD documented in this encounter Discharge Instructions * Discharge Instructions* Bryson Clark MD - 12/16/2019 12:16 PM CDT 1 packing to mons pubis abscess, cover with dry gauze and tape. Please change daily * Discharge Instr - Other Orders* Lyndsey Triplett RN - 12/16/2019 2:41 PM CDT If you have any questions or concerns following discharge, please call [facility] at [phone]. documented in this encounter Medications at Time of Discharge HYDROcodone-acet aminophen (NORCO) 5-325 mg per tabletIndication s:Pain Take 1 tablet by mouth every 6 (six) hours as needed for pain for up to 7 days 28 tablet 12/16/2019 0 bacitracin (bacitracin) 500 unit/gram ointment Apply topically 2 (two) times a day 02/04/2019 2 ibuprofen (ADVIL,MOTRIN) 600 mg tablet Take 1 tablet (600 mg total) by mouth every 8 (eight) hours as needed for pain. Take with food. 30 tablet 12/18/2017 2 sulfamethoxazole -trimethoprim (BACTRIM DS) 800-160 mg per tablet Take 1 tablet by mouth 2 (two) times a day for 10 days 20 tablet 12/12/2019 0 topiramate (TOPAMAX) 25 mg tablet Take 50 mg by mouth nightly 07/12/2019 2 documented as of this encounter Ordered Prescriptions Prescription Sig Dispense Quantity Refills Last Filled Start Date End Date HYDROcodone-acetam inophen (NORCO) 5-325 mg per tabletIndications: Pain Take 1 tablet by mouth every 6 (six) hours as needed for pain for up to 7 days 28 tablet 12/16/2019 12/23/2019 documented in this encounter Discharge Disposition Disposition Code Departure Means Destination Discharge to home or self care documented in this encounter Progress Notes * Bryson Clark MD - 12/16/2019 1:24 PM CDT Progress Note Subjective: HPI: No current complaints Objective: Vitals: 12/16/19 0706 BP: 116/52 Pulse: 65 Resp: 16 Temp: 36.2 ??C (97.2 ??F) SpO2: Physical Exam Dressing in place to suprapubic region. No surrounding erythema. Induration improved Assessment/Plan Mons pubic abscess Patient undergo 1st dressing change in hospital. Cultures have initially returned as MSSA. She is already on Bactrim which should be appropriate. 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 Just moved out of her mom's home. She is independent with mobility andadls. Patient works and drives herself to dr [place]. When she is discharged form hospital her motherwill transport to home. Patient will use her own pharmacy at discharge. No needs at this time. Willcontinue to follow for discharge planning. * Khushboo Oleary RN - 12/16/2019 10:40 AM CDT 12/16/19 1039 Discharge Summary Discharge Disposition Home Discharge Additional Assistance Does the patient need discharge transport arranged? No (her mother will transport) * Khushboo Oleary RN - 12/16/2019 10:39 AM CDT 12/16/19 1039 Basic Mobility - 6 Click How much difficulty does the patient have: Turning over in bed 4 How much difficulty does the patient currently have: Sitting down and standing up from a chair witharms? 4 How much difficulty does the patient have: Moving from lying on back to sitting on the side of the bed? 4 How much difficulty does the patient have: Moving to and from a bed to a chair including wheelchair? 4 How much help does the patient currently need: Walk in hospital room? 4 How much help from another person does the patient currently need: Climbing 3-5 steps with a railing? 4 Total 6 Click Score (range 6-24) 24 * Nadeen Joshua MD - 12/15/2019 10:02 AM CDT [facility] Hospitalist Service Progress Note Patient Name: Jamal Licona Patient : 2000 Age/Sex: 19 y.o. female Room/Bed: OR/NONE Admission Date/Time: 12/14/2019 10:23 AM Date: 12/15/2019 Time: 10:02 AM Chief Complaint: Chief Complaint Patient presents with ??? Abscess Subjective: no fever Patient underwent surgery today Objective: Vitals: Vitals: 12/14/19 1157 12/14/19 1236 12/14/19 1523 12/14/19 2357 BP: 119/61 127/54 121/56 103/49 BP Location: Right arm Right arm Right arm Right arm Patient Position: Sitting Sitting Lying Lying Pulse: 65 58 60 68 Resp: 16 16 16 16 Temp: 36.9 ??C (98.4 ??F) 36.3 ??C (97.3 ??F) 36.1 ??C (97 ??F) (!) 35.9 ??C (96.7 ??F) TempSrc: Temporal Tympanic Tympanic Temporal SpO2: 98% 100% 100% 100% Weight: Height: Physical Exam: physical Exam Constitutional: pt is oriented to person, place, and time and in no distress. HENT: Head: Normocephalic. Eyes: no pallor , EOM are normal. Neck: Normal range of motion. No JVD present. Cardiovascular: S1-S2 heard. Pulmonary/Chest: Effort normal and breath sounds normal. Abdominal: Soft, nontender. Bowel sounds Present . Musculoskeletal: Normal range of motion, no edema Neurological: pt is alert and oriented to person, place, and time. No cranial nerve deficit. Skin: Skin is dry. No rash noted. Psychiatric: Affect and judgment normal. Current Medication List: Scheduled Meds:[JUL Hold] cefepime, 2,000 mg, intravenous, Q8H GRANT [JUL Hold] clindamycin, 900 mg, intravenous, Q8H GRANT [Jul] enoxaparin, 40 mg, subcutaneous, Daily-2100 Continuous Infusions: PRN Meds:??? [JUL Hold] acetaminophen ??? [JUL Hold] ondansetron ??? [JUL Hold] oxyCODONE Labs: Recent Results (from the past 24 hour(s)) CBC with auto differential Collection Time: 12/14/19 10:46 AM Result Value Ref Range WBC 5.1 3.8 - 9.9 K/cumm Hgb 12.4 11.9 - 15.5 g/dL Hct 37.5 35.6 - 45.5 % Plt 248 150 - 400 K/cumm MPV 9.5 9.1 - 12.3 fL RBC 4.12 3.90 - 5.20 M/cumm MCV 91.0 81.3 - 96.4 fL MCH 30.1 27.1 - 33.3 pg MCHC 33.1 32.3 - 35.7 g/dL RDW CV 13.4 11.1 - 14.9 % RDW SD 45.2 35.7 - 48.1 fL NRBC abs 0.00 0.00 - 0.01 K/cumm CRP (acute phase) Collection Time: 12/14/19 10:46 AM Result Value Ref Range C-RP 38.9 (H) <=10.0 mg/L Blood culture Blood Forearm, right Collection Time: 12/14/19 10:46 AM Result Value Ref Range Report Preliminary Report: No growth to date. Comprehensive metabolic panel Collection Time: 12/14/19 10:46 AM Result Value Ref Range Sodium 135 135 - 145 mmol/L Potassium, pl 4.6 3.3 - 4.9 mmol/L Chloride 102 97 - 110 mmol/L CO2 21 (L) 22 - 32 mmol/L Anion gap 12 2 - 15 mmol/L BUN 10 8 - 25 mg/dL Creatinine 0.46 (L) 0.60 - 1.10 mg/dL Glucose 85 70 - 199 mg/dL Calcium 9.1 8.5 - 10.3 mg/dL Bilirubin, total 0.3 0.1 - 1.2 mg/dL Protein, pl 7.0 6.5 - 8.5 g/dL Albumin 4.0 3.5 - 5.0 g/dL Alk phos 51 40 - 130 Units/L ALT 19 7 - 45 Units/L AST 24 10 - 45 Units/L Sepsis Lactate w/ Reflex Collection Time: 12/14/19 10:46 AM Result Value Ref Range Sepsis Lactate 1.0 0.7 - 2.0 mmol/L Differential, auto Collection Time: 12/14/19 10:46 AM Result Value Ref Range Neutrophil abs 2.8 1.7 - 6.5 K/cumm Imm gran abs 0.0 0.0 - 0.1 K/cumm Lymphocyte abs 1.6 0.8 - 3.3 K/cumm Monocyte abs 0.5 0.2 - 0.8 K/cumm Eosinophil abs 0.2 0.0 - 0.5 K/cumm Basophil abs 0.0 0.0 - 0.1 K/cumm Neutrophil pct 54.8 % Imm gran pct 0.2 % Lymphocyte pct 30.5 % Monocyte pct 9.8 % Eosinophil pct 4.3 % Basophil pct 0.4 % eGFR Collection Time: 12/14/19 10:46 AM Result Value Ref Range GFR 143 mL/min/1.73 m2 hCG, blood, quantitative Collection Time: 12/14/19 10:46 AM Result Value Ref Range hCG, quant <5.0 0.0 - 5.0 IUnits/L Blood culture Blood Antecubital, left Collection Time: 12/14/19 10:47 AM Result Value Ref Range Report Preliminary Report: No growth to date. Aerobic culture and gram stain Abscess Groin Collection Time: 12/14/19 10:50 AM Result Value Ref Range Direct Specimen Exam Stain: No polymorphonuclear leukocytes seen. No organisms seen. Report Preliminary Report: Culture results pending. Us Abdominal Wall And Lower Back Soft Tissue Mass Result Date: 12/14/2019 Narrative: [facility] Imaging Result Name: JAMAL LICONA Brina OrderingPhys: MIRANDA CARMICHAEL Age: 19 Date of : 2000 Accession Number: [id number] Date of Service: 12/14/2019 Gender: F EXAM DESCRIPTION: US ABDOMEN LIMITED REASON FOR STUDY: Red ness and lump/s to suprapubic area, persistent and oozing per patient. Duration: 1 week TECHNIQUE: Ultrasound of the superficial tissues in the right upper quadrant of the abdomen was performed with grayscale and color doppler. COMPARISON: None Sonographic interrogation of the region of soft tissueredness demonstrates evidence of scar and granulation tissue without drainable fluid collection. Wound extending to the skin surface measures approximately 0.7 by 1.9 x 0.7 cm. Impression: Evidence granulation tissue and soft tissue wound without evidence of drainable fluid collection as above. THIS IS AN ELECTRONICALLY VERIFIED FINAL REPORT 12/14/2019 12:25 PM - Electronically signed by Cassandra Arguelles AB: Report ID: [id number] Reading Location: [id number] Pertinent Labs: I have reviewed the pertinent labs. ASSESSMENT AND PLAN: Patient Active Problem List Diagnosis ??? Elbow pain ??? Ankle pain ??? Acute pain of right foot ??? Closed nondisplaced fracture of medial cuneiform of right foot ??? Abscess ??? Morbid obesity (CMS/HCC) Assessment Mons pubis abscess Morbid obesity Plan Patient underwent surgery today Patient on cefepime and clindamycin Await for the culture sensitivity results Patient is on Lovenox Counseled the patient about lifestyle modification Patient on oxycodone p.r.n. for pain I spent a total of 25 minutes of which more than 50% of the time was spent in counseling and coordination of care. This time included: Reviewing the labs, examining the patient, discussing and coordinating care with the patient and Nursing staff MDM: Merrill Joshua MD Internal Medicine - Hospitalist [facility] - Adult Hospitalist Service Voice recognition software [employer] was used dictate and transcribe this document. Charge Entry Specialist variances may occur. Despite proofreading, typographical errors may occur 12/15/2019 10:02 AM documented in this encounter H&P Notes * Nadeen Joshua MD - 12/14/2019 4:55 PM CDT [facility] Adult Hospitalist Service History and Physical Patient Name: Jamal Licona Patient : 2000 Age/Sex: 19 y.o. female Room/Bed: [place] [id number] Admission Date/Time: 12/14/2019 10:23 AM Date: 12/14/2019 Time: 5:03 PM Primary Care Physician: Venecia Turner MD PCP Office Location: [address] [place] [address] PCP Chief Complaint: Pain and swelling over the pubic region HPI: Patient is a 19 y.o. y/o female with PMH of morbid obesity came to the ER with a chief complaint ofworsening of pain and the swelling over the pubic region. Patient recently had a cellulitis with abscess in the pubic region which was drained in the ER and was discharged on po antibiotics. As per the patient at the pain and swelling was gradually getting worse so she decided to come to the ER forfurther evaluation. Patient had some fever. Patient denies any chest pain any cough any phlegm. Denies any known exposure to COVID-[address] Lynn was consulted. patient was admitted for further management. Review of Systems: Ten systems reviewed, all others negative except those listed in H&P Past Medical History: Past Medical History: Diagnosis Date ??? HX [...] Substance Use Topics ??? Alcohol use: No Allergies: No Known Allergies Home Medications: Medications Prior to Admission Medication Sig Dispense Refill Last Dose ??? HYDROcodone-acetaminophen (NORCO) 5-325 mg per tablet Take 1-2 tablets by mouth every 4 (four) hours as needed for pain Do not exceed 8 tablets/day. 20 tablet 0 Taking ??? ibuprofen (ADVIL,MOTRIN) 600 mg tablet Take 1 tablet (600 mg total) by mouth every 8 (eight) hours as needed for pain. Take with food. 30 tablet 0 Taking ??? sulfamethoxazole-trimethoprim (BACTRIM DS) 800-160 mg per tablet Take 1 tablet by mouth 2 (two)times a day for 10 days 20 tablet 0 Taking Objective: Vitals: Patient Vitals for the past 24 hrs: Patient Vitals for the past 24 hrs: BP Temp Temp src Pulse Resp SpO2 Height Weight 12/14/19 1523 121/56 36.1 ??C (97 ??F) Tympanic 60 16 100 % -- -- 12/14/19 1236 127/54 36.3 ??C (97.3 ??F) Tympanic 58 16 100 % -- -- 12/14/19 1157 119/61 36.9 ??C (98.4 ??F) Temporal 65 16 98 % -- -- 12/14/19 1033 119/60 36.8 ??C (98.2 ??F) Temporal 71 16 96 % 165.1 cm (5' 5 ) 108.9 kg (240 lb) Physical Exam: physical Exam Constitutional: pt is oriented to person, place, and time , and in no distress. HENT: Head: Normocephalic. Eyes: no pallor , EOM are normal. Neck: Normal range of motion. No JVD present. Cardiovascular: S1-S2 heard Pulmonary/Chest: Effort normal and breath sounds normal. Abdominal: Soft, nontender. Bowel sounds present Musculoskeletal: Normal range of motion, no edema Neurological: patient is alert and oriented to person, place, and time. No cranial nerve deficit. Skin: Redness and swelling present in pubic region with area of induration Psychiatric: Affect and judgment normal. Laboratory Results: Recent Results (from the past 24 hour(s)) CBC with auto differential Collection Time: 12/14/19 10:46 AM Result Value Ref Range WBC 5.1 3.8 - 9.9 K/cumm Hgb 12.4 11.9 - 15.5 g/dL Hct 37.5 35.6 - 45.5 % Plt 248 150 - 400 K/cumm MPV 9.5 9.1 - 12.3 fL RBC 4.12 3.90 - 5.20 M/cumm MCV 91.0 81.3 - 96.4 fL MCH 30.1 27.1 - 33.3 pg MCHC 33.1 32.3 - 35.7 g/dL RDW CV 13.4 11.1 - 14.9 % RDW SD 45.2 35.7 - 48.1 fL NRBC abs 0.00 0.00 - 0.01 K/cumm CRP (acute phase) Collection Time: 12/14/19 10:46 AM Result Value Ref Range C-RP 38.9 (H) <=10.0 mg/L Comprehensive metabolic panel Collection Time: 12/14/19 10:46 AM Result Value Ref Range Sodium 135 135 - 145 mmol/L Potassium, pl 4.6 3.3 - 4.9 mmol/L Chloride 102 97 - 110 mmol/L CO2 21 (L) 22 - 32 mmol/L Anion gap 12 2 - 15 mmol/L BUN 10 8 - 25 mg/dL Creatinine 0.46 (L) 0.60 - 1.10 mg/dL Glucose 85 70 - 199 mg/dL Calcium 9.1 8.5 - 10.3 mg/dL Bilirubin, total 0.3 0.1 - 1.2 mg/dL Protein, pl 7.0 6.5 - 8.5 g/dL Albumin 4.0 3.5 - 5.0 g/dL Alk phos 51 40 - 130 Units/L ALT 19 7 - 45 Units/L AST 24 10 - 45 Units/L Sepsis Lactate w/ Reflex Collection Time: 12/14/19 10:46 AM Result Value Ref Range Sepsis Lactate 1.0 0.7 - 2.0 mmol/L Differential, auto Collection Time: 12/14/19 10:46 AM Result Value Ref Range Neutrophil abs 2.8 1.7 - 6.5 K/cumm Imm gran abs 0.0 0.0 - 0.1 K/cumm Lymphocyte abs 1.6 0.8 - 3.3 K/cumm Monocyte abs 0.5 0.2 - 0.8 K/cumm Eosinophil abs 0.2 0.0 - 0.5 K/cumm Basophil abs 0.0 0.0 - 0.1 K/cumm Neutrophil pct 54.8 % Imm gran pct 0.2 % Lymphocyte pct 30.5 % Monocyte pct 9.8 % Eosinophil pct 4.3 % Basophil pct 0.4 % eGFR Collection Time: 12/14/19 10:46 AM Result Value Ref Range GFR 143 mL/min/1.73 m2 hCG, blood, quantitative Collection Time: 12/14/19 10:46 AM Result Value Ref Range hCG, quant <5.0 0.0 - 5.0 IUnits/L Radiology: Us Abdominal Wall And Lower Back Soft Tissue Mass Result Date: 12/14/2019 Narrative: [facility] Imaging Result Name: JAMAL LICONA OrderingPhys: MIRANDA CARMICHAEL Age: 19 Date of : 2000 Accession Number: [id number] Date of Service: 12/14/2019 Gender: F EXAM DESCRIPTION: US ABDOMEN LIMITED REASON FOR STUDY: Red ness and lump/s to suprapubic area, persistent and oozing per patient. Duration: 1 week TECHNIQUE: Ultrasound of the superficial tissues in the right upper quadrant of the abdomen was performed with grayscale and color doppler. COMPARISON: None Sonographic interrogation of the region of soft tissueredness demonstrates evidence of scar and granulation tissue without drainable fluid collection. Wound extending to the skin surface measures approximately 0.7 by 1.9 x 0.7 cm. Impression: Evidence granulation tissue and soft tissue wound without evidence of drainable fluid collection as above. THIS IS AN ELECTRONICALLY VERIFIED FINAL REPORT 12/14/2019 12:25 PM - Electronically signed by Cassandra Arguelles AB: Report ID: [id number] Reading Location: [id number] ASSESSMENT AND PLAN: Patient Active Problem List Diagnosis ??? Elbow pain ??? Ankle pain ??? Acute pain of right foot ??? Closed nondisplaced fracture of medial cuneiform of right foot Assessment Mons pubis abscess status post I &D Morbid obesity Plan Patient was started on clindamycin and cefepime and doxycycline in the ED Will DC the doxycycline will continue cefepime and clindamycin COVID -19 test is pending Surgeon Dr. Lynn was consulted possible surgery tomorrow in OR Counseled the patient about lifestyle modification DVT prophylaxis Expected LOS: Pt needs more than 2 inpatient hospitalization days MDM: moderate Nadeen Joshua MD Internal Medicine - Hospitalist [facility] - Adult Hospitalist Service Voice recognition software [employer] was used dictate and transcribe this document. Charge Entry Specialist variances may occur. Despite proofreading, typographical errors may occur CC: Venecia Turner MD documented in this encounter Consult Notes * Bryson Clark MD - 12/14/2019 1:02 PM CDT Surgery Consult Subjective: Patient Name: Jamal Licona Date of Consult: 12/14/19 HPI: Jamal Licona is a 19 y.o. female presenting for surgical evaluation of a mons pubic abscess. The patient initially presented to the emergency department this past Monday where an incision and drainage was performed. Packing was left in place at that time period the following day she followed up with me on in the office. The packing was changed without any signs of purulent drainage. The mother was shown how to do the dressing changes. We asked them that if the erythema began to spread or the induration was start worsening to call back as it may need to be opened or debrided more aggressively in the OR. They called the office back on Monday stating that they thought things were worsening. They were instructed to go back to the emergency department. The area is painful in nature. A dull ache at times but sharp with pressure over the area. There is been purulence draining from it and worsening induration Chief Complaint: Abscess Attending Provider: Aleksandra Reece MD Allergies as of 12/14/2019 ??? (No Known Allergies) Current Facility-Administered Medications: ??? clindamycin (CLEOCIN) 900 mg/50 mL in dextrose 5% (premix) 900 mg, 900 mg, intravenous, Q8H GRANT, Last Rate: 100 mL/hr at 12/14/19 1152, 900 mg at 12/14/19 1152 Past Medical History: Diagnosis Date ??? HX [...] file Gets together: Not on file Attends oriental orthodox service: Not on file Active member of [...] Psychiatric/Behavioral: Negative for agitation and confusion. Objective: Temp: [36.3 ??C (97.3 ??F)-36.9 ??C (98.4 ??F)] 36.3 ??C (97.3 ??F) Pulse: [58-71] 58 Resp: [16] 16 BP: (119-127)/(54-61) 127/54 Physical Exam Constitutional: The patient is oriented to person, place, and time. They appear well-nourished. No distress. HENT: Head: Normocephalic and atraumatic. Eyes: Pupils are equal, round, and reactive to light. Neck: No thyromegaly present. Cardiovascular: Normal rate and regular rhythm. Pulmonary/Chest: Effort normal and breath sounds normal. Abdominal: Soft. non distended. There is no tenderness. No hernia. Genitourinary: Rectum normal. Induration erythema in the mons pubic region. Purulent drainage noted Musculoskeletal: Normal range of motion. Neurological: alert and oriented to person, place, and time. Skin: Skin is warm and dry. Psychiatric: normal mood and affect. Labs: White blood cell count 5.1 Imaging: Ultrasound demonstrated soft tissue edema but no signs of drainable collection Assessment: Mons pubic abscess Plan: Given the worsening induration and erythema we will set her up for a more formal drainage and debridement in the OR. COVID -19 testing will be sent today. Consent will be signed. She will be left NPOafter midnight. Cultures will be sent in the OR. Until then continue antibiotics until we can adjust more appropriately. IV pain control as needed. All questions have been answered. Bryson Clark MD 1:02 PM 12/14/2019 documented in this encounter Nursing Notes * Deanne Serrano RN - 12/16/2019 4:25 PM CDT Patient discharged to private residence via private transportation. Alert and Oriented x 4. Room air. Activity status independent. Discharge orders and medications reviewed with the patient. Understanding verbalized. documented in this encounter ED Notes * Miranda Carmichael MD - 12/14/2019 10:34 AM CDT Images from the original note were not included. HPI Chief Complaint Patient presents with ??? Abscess 10:34 AM - Jamal Licona is a 19 y.o. female patient with a history of a tonsillectomy, presenting to the ED complaining of an abscess in her pubic region. The patient states that after shaving she developed an abscess in her pubic region. Per chart review, the patient presented to the [facility] ED on 12/10/2019 for evaluation of the abscess and was prescribed Keflex antibiotics and Bactroban cream.Again per chart review, the patient returned to [facility] ED on 12/11/2019 and had an IND procedure on the abscess as well as a culture. During this time the patient states that her antibiotics were also changed to Bactrim. Per chart review, the patient was seen by Dr. Clark on 12/12/2019. The patient is presenting to the ED today because she has continued to experience pain in the area of the abscess, swelling, tenderness, and fever. She denies a cough, congestion, shortness of breath, abdominal pain, nausea, or vomiting. History provided by: Patient and medical records associate editor used: No Patient History Patient Active Problem List Diagnosis Date Noted ??? Acute pain of right foot 06/03/2019 ??? Closed nondisplaced fracture of medial cuneiform of right foot 06/03/2019 ??? Elbow pain 02/06/2015 Class: Chronic ??? Ankle pain 06/17/2014 Class: Temporary Past Medical History: Diagnosis Date ??? HX [...] Review of Systems Review of Systems Constitutional: Positive for fever. Negative for chills. HENT: Negative for ear pain and sore throat. Eyes: Negative for pain and visual disturbance. Respiratory: Negative for cough and shortness of breath. Cardiovascular: Negative for chest pain and palpitations. Gastrointestinal: Negative for abdominal pain and vomiting. Genitourinary: Negative for dysuria and hematuria. Musculoskeletal: Negative for arthralgias and back pain. Skin: Positive for wound. Negative for color change and rash. Neurological: Negative for seizures and syncope. All other systems reviewed and are negative. Physical Exam ED Triage Vitals Temp Pulse Resp BP SpO2 12/14/19 1033 12/14/19 1033 12/14/19 1033 12/14/19 1033 12/14/19 1033 36.8 ??C (98.2 ??F) 71 16 119/60 96 % Temp src Heart Rate Source Patient Position BP Location FiO2 (%) 12/14/19 1033 12/14/19 1236 12/14/19 1157 12/14/19 1157 -- Temporal Monitor Sitting Right arm Physical Exam Vitals signs and nursing note reviewed. Constitutional: General: She is not in acute distress. Appearance: She is well-developed. She is not ill-appearing. Comments: Patient is a well-appearing, anxious female in no acute distress. HENT: Head: Normocephalic and atraumatic. Eyes: Conjunctiva/sclera: Conjunctivae normal. Neck: Musculoskeletal: Neck supple. Cardiovascular: Rate and Rhythm: Normal rate and regular rhythm. Heart sounds: Normal heart sounds. No murmur. Pulmonary: Effort: Pulmonary effort is normal. No respiratory distress. Breath sounds: Normal breath sounds. Abdominal: General: Bowel sounds are normal. There is no distension. Palpations: Abdomen is soft. Tenderness: There is no abdominal tenderness. There is no guarding. Skin: General: Skin is warm and dry. Findings: Wound present. Neurological: Mental Status: She is alert and oriented to person, place, and time. Psychiatric: Mood and Affect: Mood is anxious. MDM Vitals: 12/14/19 1033 12/14/19 1157 12/14/19 1236 BP: 119/60 119/61 127/54 BP Location: Right arm Right arm Patient Position: Sitting Sitting Pulse: 71 65 58 Resp: 16 16 16 Temp: 36.8 ??C (98.2 ??F) 36.9 ??C (98.4 ??F) 36.3 ??C (97.3 ??F) TempSrc: Temporal Temporal Tympanic SpO2: 96% 98% 100% Weight: 108.9 kg (240 lb) Height: 165.1 cm (5' 5 ) Labs Reviewed CRP (ACUTE PHASE) - Abnormal Result Value C-RP 38.9 (*) COMPREHENSIVE METABOLIC PANEL - Abnormal Sodium 135 Potassium, pl 4.6 Chloride 102 CO2 21 (*) Anion gap 12 BUN 10 Creatinine 0.46 (*) Glucose 85 Calcium 9.1 Bilirubin, total 0.3 Protein, pl 7.0 Albumin 4.0 Alk phos 51 ALT 19 AST 24 AEROBIC CULTURE AND GRAM STAIN BLOOD CULTURE BLOOD CULTURE COVID-19 CORONAVIRUS RNA CBC WITH AUTO DIFFERENTIAL WBC 5.1 Hgb 12.4 Hct 37.5 Plt 248 MPV 9.5 RBC 4.12 MCV 91.0 MCH 30.1 MCHC 33.1 RDW CV 13.4 RDW SD 45.2 NRBC abs 0.00 SEPSIS LACTATE WITH REFLEX Sepsis Lactate 1.0 DIFFERENTIAL AUTO Neutrophil abs 2.8 Imm gran abs 0.0 Lymphocyte abs 1.6 Monocyte abs 0.5 Eosinophil abs 0.2 Basophil abs 0.0 Neutrophil pct 54.8 Imm gran pct 0.2 Lymphocyte pct 30.5 Monocyte pct 9.8 Eosinophil pct 4.3 Basophil pct 0.4 EGFR GFR 143 HCG, BLOOD, QUANTITATIVE hCG, quant <5.0 US Abdominal Wall and Lower Back Soft Tissue Mass Final Result Evidence granulation tissue and soft tissue wound without evidence of drainable fluid collection as above. THIS IS AN ELECTRONICALLY VERIFIED FINAL REPORT 12/14/2019 12:25 PM - Electronically signed by Cassandra Arguelles AB: AB Report ID: [id number] Reading Location: [id number] ED Course as of Dec 13 1414 Time: 12/13 1129 Comment: Spoke to Dr. Clark who agrees to operate on the patient tomorrow. By: Concepcion Ho Time: 12/13 1138 Comment: Spoke to Dr. Reece, hospitalist, who accepts patient for admission. By: Concepcion Ho Final diagnoses: Abscess Therapy failure due to antibiotic resistance 10:41 AM: Concepcion Ho, scribing for and in the presence of Miranda Carmichael MD. I electronically signed this note at 10:41 AM on 12/14/2019. I, Miranda Carmichael MD, have personally performed the services described in the documentation , reviewed the documentation, as recorded by the scribe in my presence, and it accurately and completely records my words and actions. Miranda Carmichael MD 12/14/19 1415 * Nelsy Ceja RN - 12/14/2019 10:31 AM CDT Pt to er 15 c/o abscess to lower ab. Pt here Monday for same c/o placed on antibiotics. Pt states here again morning, had I&D. Pt states has also seen a surgeon for same c/o. Pt states unable to insert packing today. Pt still having drainage. documented in this encounter Miscellaneous Notes * Plan of Care - Deanne Serrano RN - 12/16/2019 1:11 PM CDT Problem: Health Behavior: Goal: Understanding of discharge needs will improve Outcome: Progressing Problem: Lack of Knowledge: Goal: Understanding of ways to prevent infection will improve Outcome: Progressing Problem: Skin Integrity: Goal: Will remain free from wound infection Description: World Health Organization (WHO) identifies hands as the main mode of germ transmissionin health care. Hand hygiene may be considered the most important measure performed to avoid transmission of germs and prevent health care associated infection. Outcome: Progressing Problem: Skin/Tissue Integrity Goal: Skin integrity remains intact Description: INTERVENTIONS 1. Assess and document risk factors for pressure ulcer development 2. Assess and document skin integrity 3. Monitor for areas of redness and/or skin breakdown Outcome: Progressing Goal: Incisions, wounds, or drain sites healing without S/S of infection Description: INTERVENTIONS 1. Assess and document risk factors for pressure ulcer development 2. Assess and document skin integrity 3. Assess and document dressing/incision, wound bed, drain sites and surrounding tissue 4. Implement wound care per orders 5. Initiate isolation precautions as appropriate Outcome: Progressing Goal: Oral mucous membranes remain intact Description: INTERVENTIONS 1. Assess oral mucosa and hygiene practices 2. Implement preventative oral hygiene regimen Outcome: Progressing Goal: Incisions, wounds, or drain sites healing without S/S of infection Description: INTERVENTIONS 1. Assess and document risk factors for pressure ulcer development 2. Assess and document skin integrity 3. Assess and document dressing/incision, wound bed, drain sites and surrounding tissue 4. Implement wound care per orders 5. Initiate isolation precautions as appropriate Outcome: Progressing Goal: Incisions, wounds, or drain sites healing without S/S of infection Description: INTERVENTIONS 1. Assess and document risk factors for pressure ulcer development 2. Assess and document skin integrity 3. Assess and document dressing/incision, wound bed, drain sites and surrounding tissue 4. Implement wound care per orders 5. Initiate isolation precautions as appropriate Outcome: Progressing Goals: Clinical Goals for the Shift: VS/lab stable, free from inury, adequate pain control Summary: Patient is A & O x 4, on room air, independent, and cooperative to care. Pain med requested before dressing change. The patient reports no concerns at this time. I will continue to monitor and treat. * Plan of Care - Melonie Gordon RN - 12/16/2019 4:55 AM CDT Goals: Clinical Goals for the Shift: Pt will remain afebrile, wound care prn Summary: Pt is a&o up ad mesha. Tylenol x1 for pain. Pts dressing guaze changed due to excess drainage, packing left in place. Afebrile. * Plan of Care - Deanne Serrano RN - 12/15/2019 3:45 PM CDT Problem: Health Behavior: Goal: Understanding of discharge needs will improve Outcome: Progressing Problem: Lack of Knowledge: Goal: Understanding of ways to prevent infection will improve Outcome: Progressing Problem: Skin Integrity: Goal: Will remain free from wound infection Description: World Health Organization (WHO) identifies hands as the main mode of germ transmissionin health care. Hand hygiene may be considered the most important measure performed to avoid transmission of germs and prevent health care associated infection. Outcome: Progressing Problem: Skin/Tissue Integrity Goal: Skin integrity remains intact Description: INTERVENTIONS 1. Assess and document risk factors for pressure ulcer development 2. Assess and document skin integrity 3. Monitor for areas of redness and/or skin breakdown Outcome: Progressing Goal: Incisions, wounds, or drain sites healing without S/S of infection Description: INTERVENTIONS 1. Assess and document risk factors for pressure ulcer development 2. Assess and document skin integrity 3. Assess and document dressing/incision, wound bed, drain sites and surrounding tissue 4. Implement wound care per orders 5. Initiate isolation precautions as appropriate Outcome: Progressing Goal: Oral mucous membranes remain intact Description: INTERVENTIONS 1. Assess oral mucosa and hygiene practices 2. Implement preventative oral hygiene regimen Outcome: Progressing Goal: Incisions, wounds, or drain sites healing without S/S of infection Description: INTERVENTIONS 1. Assess and document risk factors for pressure ulcer development 2. Assess and document skin integrity 3. Assess and document dressing/incision, wound bed, drain sites and surrounding tissue 4. Implement wound care per orders 5. Initiate isolation precautions as appropriate Outcome: Progressing Goals: Clinical Goals for the Shift: VS/labs stable, free from injury, adequate pain control Summary: Patient is A & O x 4, on room air, and cooperative to care. The patient reported pain this afternoon and PRN pain medication was provided. The patient is resting in bed. Her mother is atthe bedside. I will continue to monitor and treat. * Perioperative Nursing Note - Annamaria Gómez RN - 12/15/2019 10:57 AM CDT Pt. Awake and talking. No distress noted. To go back to inpatient room. * Op Note - Bryson Clark MD - 12/15/2019 10:14 AM CDT Images from the original note were not included. NAME: Jamal Licona DATE OF : 2000 SURGEON: Bryson Clark MD ENGINEERING PROJECT DESIGNER:Air Conditioning Service Technician: Brianda Middleton RN Scrub: Tana Lane RN BRATTICE BUILDER: Joaquina Berkowitz RN DATE OF SURGERY: 12/15/2019 PREOP DIAGNOSES: Mons pubis abscess POSTOP DIAGNOSES: Mons pubis abscess PROCEDURE: Incision and drainage of mons pubis abscess INDICATIONS OF PROCEDURE: The patient is a 19-year-old female who presented to the ER several days ago where an incision and drainage of a mons pubic abscess was performed. She was seen in the officethe next day and packing changed. She was instructed to call or return if the induration or erythema worsen. She called the next day stating that the redness was worse as well as the drainage and hardness. She was seen in the emergency department and set up for operative drainage. DETAILS OF PROCEDURE: After informed consent was obtained the patient was taken to the operating room and placed supine on the operating table. SCD boots were applied to bilateral lower extremities. Conscious sedation wasachieved. Perioperative antibiotics were administered and a preoperative time-out completed. The patient was then prepped and draped in standard sterile fashion. Local anesthetic was used to anesthetize the skin. The previous incision was lengthened a further 2 cm. A hemostat was inserted and all loculated collections open. A wound culture was inserted and sent for aerobic and anaerobic culture. At this time the hemostat was further used to break up all further loculations until no further areas were found. At this time the abscess cavity was copiously irrigated until fluid returned clear. The wound was then packed with a saline soaked 4 x 4 gauze. Dry gauze was then applied and covered with Tegaderm. The patient was awoken from anesthesia and transferred to recovery in stable condition. At the end of the procedure all sponge, needle and instrument counts were reported to be correct x2 at the end of the case. ANESTHESIA: Conscious sedation. Plus 15 cc of 0.5% Marcaine with epinephrine COMPLICATIONS: None BLOOD LOSS: 5 cc SPECIMEN: Wound culture Bryson Clark MD 12/15/2019 10:29 AM * Plan of Care - Amada Curry RN - 12/15/2019 2:56 AM CDT Goals: Clinical Goals for the Shift: Pt to remain free of injury, pain management, VS remain stable Summary: Pt is alert and orientated and independent in the room and c/o groin pain (5/10) this shift. PRN tylenol was administered as ordered. IV antibiotics were administered as ordered. Dressing topubic abscess was changed. Moderate amount of serosanguineous drainage noted from abscess wound. VSremain stable. Pt has been NPO since midnight and has received first surgical bath for procedure. Call light is within reach and frequent rounding has been performed. Will continue to monitor and treat as needed. documented in this encounter Plan of Treatment Not on file documented as of this encounter Procedures Procedure Name Priority Date/Time Associated Diagnosis Comments EGFR Routine 12/16/2019 5:13 AM CDT DIFFERENTIAL AUTO Routine 12/16/2019 5:1 3 AM CDT CBC WITH AUTO DIFFERENTIAL Routine 12/16/2019 5:13 AM CDT BASIC METABOLIC PANEL Routine 12/16/2019 5:13 AM CDT AEROBIC AND ANAEROBIC CULTURE AND GRAM STAIN Routine 12/15/2019 10:19 AM CDT INCISION AND DRAINAGE - ABSCESS 12/15/2019 9:50 AM CDT suprapubic abscess COVID-19 CORONAVIRUS RNA Routine 12/14/2019 12:00 PM CDT US ABDOMEN LIMITED ED 12/14/2019 11 :28 AM CDT AEROBIC CULTURE AND GRAM STAIN Routine 12/14/2019 10:50 AM CDT BLOOD CULTURE STAT 12/14/2019 10:47 AM CDT SEPSIS LACTATE WITH REFLEX Routine 12/14/2019 10:46 AM CDT EGFR STAT 12/14/2019 10:46 AM CDT DIFFERENTIAL AUTO STAT 12/14/2019 10: 46 AM CDT CBC WITH AUTO DIFFERENTIAL STAT 12/14/2019 10:46 AM CDT BLOOD CULTURE STAT 12/14/2019 10:46 AM CDT CRP (ACUTE PHASE) STAT 12/14/2019 10: 46 AM CDT HCG, BLOOD, QUANTITATIVE Routine 12/14/2019 10:46 AM CDT COMPREHENSIVE METABOLIC PANEL STAT 12/14/2019 10:46 AM CDT documented in this encounter Results * eGFR (12/16/2019 5:13 AM CDT) eGFR 143 mL/min/1.7 3 m2 [facility] ([place] Comment: Interpretive Data Reference Interval Normal ?>/= 90 mL/min/1.73m2 Mildly decreased* ? 60 - 89 mL/min/1.73m2 Mildly to moderately decreased ?45 - 59 mL/min/1.73m2 Moderately to severely decreased ??30 - 44 mL/min/1.73m2 Severely decreased ?15 - 29 mL/min/1.73m2 Kidney Failure ?< 15 ??mL/min/1.73m2 *Relative to young adult level If -Jamaican multiply value by 1.16. Estimated glomerular filtration [...] was last reviewed 2015. Blood specimen (specimen) 12/16/2019 5:13 AM CDT 12/16/2019 5:39 AM CDT Bryson Clark MD LAB BLOOD ORDERA BLES Final Result [facility] ([place]) 1 [facility] Department of Laboratories [place], [place] [address] * Differential, auto (12/16/2019 5:13 AM CDT) Neutrophil abs 2.2 1.7 - 6.5 K/cumm [facility] ([place]) Imm gran abs 0.0 0.0 - 0.1 K/cumm [facility] ([place]) Lymphocyte abs 1.4 0.8 - 3.3 K/cumm [facility] ([place]) Monocyte abs 0.5 0.2 - 0.8 K/cumm [facility] ([place]) Eosinophil abs 0.2 0.0 - 0.5 K/cumm [facility] ([place]) Basophil abs 0.0 0.0 - 0.1 K/cumm [facility] ([place]) Neutrophil pct 49.6 % [facility] ([place]) Comment: Interpretive Data Percent cell count reference ranges are not reported, since discordance with absolute values may lead to misinterpretation of CBC data. Current Interpretive Data was last revised on 2017. Imm gran pct 0.0 % [facility] ([place]) Comment: Interpretive Data Percent cell count reference ranges are not reported, since discordance with absolute values may lead to misinterpretation of CBC data. Current Interpretive Data was last revised on 2017. Lymphocyte pct 32.7 % [facility] ([place]) Comment: Interpretive Data Percent cell count reference ranges are not reported, since discordance with absolute values may lead to misinterpretation of CBC data. Current Interpretive Data was last revised on 2017. Monocyte pct 12.2 % [facility] ([place]) Comment: Interpretive Data Percent cell count reference ranges are not reported, since discordance with absolute values may lead to misinterpretation of CBC data. Current Interpretive Data was last revised on 2017. Eosinophil pct 5.0 % [facility] ([place]) Comment: Interpretive Data Percent cell count reference ranges are not reported, since discordance with absolute values may lead to misinterpretation of CBC data. Current Interpretive Data was last revised on 2017. Basophil pct 0.5 % [facility] ([place]) Comment: Interpretive Data Percent cell count reference ranges are not reported, since discordance with absolute values may lead to misinterpretation of CBC data. Current Interpretive Data was last revised on 2017. Blood specimen (specimen) 12/16/2019 5:13 AM CDT 12/16/2019 5:38 AM CDT us Bryson Clark MD LAB BLOOD ORDERA BLES Final Result [facility] ([place]) [facility] Department [place] [address] * (ABNORMAL) Basic metabolic panel (12/16/2019 5:13 AM CDT) Sodium 137 135 - 145 mmol/L [facility] ([place] Potassium, pl 4.8 3.3 - 4.9 mmol/L [facility] ([place]) Chloride 103 97 - 110 mmol/L [facility] ([place]) CO2 24 22 - 32 mmol/L [facility] ([place]) Anion gap 10 2 - 15 mmol/L [facility] ([place]) BUN 11 8 - 25 mg/dL [facility] ([place]) Creatinine 0.46(L) 0.60 - 1.10 mg/dL [facility] ([place]) Glucose 97 70 - 199 mg/dL [facility] Comment: Interpretive Data Fasting glucose [...] 2017. Calcium 9.2 8.5 - 10.3 mg/dL [facility] ([place]) Blood specimen (specimen) 12/16/2019 5:13 AM CDT 12/16/2019 5:39 AM CDT us Bryson Clark MD LAB BLOOD ORDERA BLES Final Result [facility] ([place]) 1 [facility] Department [place] [address] * (ABNORMAL) CBC with auto differential (12/16/2019 5:13 AM CDT) WBC 4.4 3.8 - 9.9 K/cumm [facility] ([place]) Hgb 11.6(L) 11.9 - 15.5 g/dL [facility] ([place]) Hct 35.4(L) 35.6 - 45.5 % [facility] ([place]) Plt 233 150 - 400 K/cumm [facility] ([place]) MPV 9.3 9.1 - 12.3 fL [facility] ([place]) RBC 3.83(L) 3.90 - 5.20 M/cumm [facility] ([place]) MCV 92.4 81.3 - 96.4 fL [facility] ([place]) MCH 30.3 27.1 - 33.3 pg [facility] ([place]) MCHC 32.8 32.3 - 35.7 g/dL [facility] ([place]) RDW CV 13.4 11.1 - 14.9 % [facility] ([place]) RDW SD 45.1 35.7 - 48.1 fL [facility] ([place]) NRBC abs 0.00 0.00 - 0.01 K/cumm [facility] ([place]) Blood specimen (specimen) 12/16/2019 5:13 AM CDT 12/16/2019 5:38 AM CDT Bryson Clark MD LAB BLOOD ORDERA BLES Final Result [facility] ([place]) 1 [facility] Department [place] [address] * (ABNORMAL) Aerobic and anaerobic culture and gram stain Abscess Abdominal (12/15/2019 10:19 AM CDT) Direct Specimen Exam Stain: Few polymorphonuclear leukocytes seen. Few Gram Positive Cocci [facility] ([place]) Comment:Testing performed by : [facility], [address] [place] [address], [place] [address] Report Final Report: Abundant Staphylococcus aureus Methicillin susceptible (MSSA) by penicillin binding protein 2a (PBP2a) testing. (.) [facility] ([place]) Comment:Testing performed by : [facility], [address] [place] [address], [place] [address] Organism STAPHYLOCOCCUS AUREUS [facility] ([place]) Abscess (Abdominal) 12/15/2019 10:19 AM CDT 12/15/2019 12:44 PM CDT Narrative [facility] ([place]) - 12/18/2019 10:16 AM CDT Mons pubis abscess Testing performed by [facility] ([phone]) Specimens submitted from normally sterile body sites will have all bacterial morphotypes identified. Specimens that contain grossly mixed margot and/or are from body sites that are not normally sterile will be examined for Staphylococcus aureus, Pseudomonas aeruginosa, beta-hemolytic strep, vancomycin-resistant Enterococcus, Bacteroides, Parabacteroides, Clostridium perfringens and fungus. If any of these are isolated, the organism will be reported. Current interpretive data was last revised on 2019. Organism Antibiotic Method Susceptibility Staphylococcus aureus Vancomycin INTERPRETATION Susceptible Staphylococcus aureus Trimethoprim with Sulfamethoxazole INTERPRETATION Susceptible Staphylococcus aureus Linezolid INTERPRETATION Susceptible Staphylococcus aureus Doxycycline INTERPRETATION Susceptible Staphylococcus aureus Clindamycin INTERPRETATION Susceptible Staphylococcus aureus Erythromycin INTERPRETATION Susceptible Staphylococcus aureus Oxacillin INTERPRETATION Susceptible Staphylococcus aureus Cefazolin INTERPRETATION Susceptible Staphylococcus aureus Ceftriaxone INTERPRETATION Susceptible us Bryson Clark MD LAB MICROBIOLOGY - GENERAL ORDERABLES Final Result [facility] ([place]) 1 [facility] Department [place] [address] * COVID-19 Coronavirus RNA Nasopharyngeal (12/14/2019 12:00 PM CDT) COVID-19 RNA Not Detected [facility]ICOLE [facility] ([place]) Comment: Interpretive Data Testing performed at [facility]. The 2019-Novel Coronavirus Assay (COVID-19) Real Time RT-PCR assay is for in vitro diagnostic use under FDA emergency use authorization only. A negative RT-PCR result does not preclude infection with COVID-19 and should not be used as the sole basis for treatment or other patient management decisions. Additional sample types have been validated according to CLIA regulations. ?? Current Interpretive Data was last revised on 2019. Testing performed by: [facility], [address] [facility] [place] [address] Nasopharyngeal 12/14/2019 12 :00 PM CDT 12/14/2019 9:38 PM CDT Narrative [facility] ([place]) - 12/15/2019 2:26 PM CDT Is the patient experiencing any symptoms consistent with COVID (eg. Fever, cough, shortness of breath)?->No What is the reason for testing?->Screening prior to urgent (<12 hr) procedure, surgery, BMT, immunosuppressive therapy us Miranda Carmichael MD LAB MICROBIOLOGY - GENERAL ORDERABLES Final Result [facility] ([place]) 1 [facility] Department [place] [address] * US Abdominal Wall and Lower Back Soft Tissue Mass (12/14/2019 11:28 AM CDT) Anatomical Region Laterality Modality Abdomen N/A Ultrasound 12/14/2019 11:1 0 AM CDT Impressions 12/14/2019 12:29 PM CDT ?? Evidence granulation tissue and soft tissue wound without evidence of drainable fluid collection as above. THIS IS AN ELECTRONICALLY VERIFIED FINAL REPORT 12/14/2019 12:25 PM - Electronically signed by Cassandra Arguelles AB: D: ??12/14/2019 12:25 PM T: ??12/14/2019 12:25 PM Report ID: [id number] Reading Location: ??[id number] Narrative 12/14/2019 12:29 PM CDT [facility] ?Imaging Result Name: JAMAL LICONA Brina ? Ordering Phys: MIRANDA CARMICHAEL Age: 19 ?Date of : 2000 ? Accession Number: [id number] Date of Service: 12/14/2019 ??Gender: F EXAM DESCRIPTION: ?? US ABDOMEN LIMITED REASON FOR STUDY: ?? Redness and lump/s to suprapubic area, persistent and oozing per patient. Duration: 1 week TECHNIQUE: ??Ultrasound of the superficial tissues in the right upper quadrant of the abdomen was performed with grayscale and color doppler. COMPARISON: ?? None ??Sonographic interrogation of the region of soft tissue redness demonstrates evidence of scar and granulation tissue without drainable fluid collection. ??Wound extending to the skin surface measures approximately 0.7 by 1.9 x 0.7 cm. Procedure Note Cassandra Arguelles MD - 12/14/2019 [facility] Imaging Result Name: JAMAL LICONA Ordering Phys: MIRANDA CARMICHAEL Age: 19 Date of : 2000 Accession Number: [id number] Date of Service: 12/14/2019 Gender: F EXAM DESCRIPTION: US ABDOMEN LIMITED REASON FOR STUDY: Redness and lump/s to suprapubic area, persistentand oozing per patient. Duration: 1 week TECHNIQUE: Ultrasound of the superficial tissues in the right upperquadrant of the abdomen was performed with grayscale and color doppler. COMPARISON: None Sonographic interrogation of the region of soft tissue redness demonstrates evidence of scar and granulation tissue without drainablefluid collection. Wound extending to the skin surface measures approximately0.7 by 1.9 x 0.7 cm. IMPRESSION: Evidence granulation tissue and soft tissue wound without evidence of drainable fluid collection as above. THIS IS AN ELECTRONICALLY VERIFIED FINAL REPORT 12/14/2019 12:25 PM - Electronically signed by Cassandra Arguelles AB: Report ID: [id number] Reading Location: [place] [address] us Miranda Carmichael MD IMG US PROCEDURES Final Res ult * (ABNORMAL) Aerobic culture and gram stain Abscess Groin (12/14/2019 10:50 AM CDT) Direct Specimen Exam Stain: No polymorphonuclear leukocytes seen. No organisms seen. [facility] ([place]) Comment:Testing performed by : [facility], [address] [facility] [place]., [address] Report Final Report: Few Staphylococcus aureus Methicillin susceptible (MSSA) by penicillin binding protein 2a (PBP2a) testing. (.) [facility] ([place]) Comment:Testing performed by : [facility], [address] [facility] [place]., [address] Organism STAPHYLOCOCCUS AUREUS [facility] ([place]) Abscess (Groin) 12/14/2019 1 0:50 AM CDT 12/14/2019 2:40 PM CDT Narrative [facility] ([place]) - 12/18/2019 1:38 PM CDT Testing performed by [facility] ([phone]) Specimens submitted from normally sterile body sites will have all bacterial morphotypes identified. ??Specimens that contain grossly mixed margot and/or are from body sites that are not normally sterile will be examined for Staphylococcus aureus, Pseudomonas aeruginosa, beta-hemolytic strep, vancomycin-resistant Enterococcus and fungus. ??If any of these are isolated, the organism will be reported. Current interpretive data was last revised on 2016. Organism Antibiotic Method Susceptibility Staphylococcus aureus Vancomycin INTERPRETATION Susceptible Staphylococcus aureus Trimethoprim with Sulfamethoxazole INTERPRETATION Susceptible Staphylococcus aureus Linezolid INTERPRETATION Susceptible Staphylococcus aureus Doxycycline INTERPRETATION Susceptible Staphylococcus aureus Clindamycin INTERPRETATION Susceptible Staphylococcus aureus Erythromycin INTERPRETATION Susceptible Staphylococcus aureus Oxacillin INTERPRETATION Susceptible Staphylococcus aureus Cefazolin INTERPRETATION Susceptible Staphylococcus aureus Ceftriaxone INTERPRETATION Susceptible Miranda Carmichael MD LAB MICROBIOLOGY - GENERAL ORDERABLES Final Result [facility] ([place]) 1 [facility] Department [place] [address] * Blood culture Blood Antecubital, left (12/14/2019 10:47 AM CDT) Report Final Report: No growth [facility] ([place]) Comment:Testing performed by : [facility], [address] [facility] [place]., [address] Blood specimen (specimen) (Antecubital, left) 12/14/2019 10:47 AM CDT 12/14/2019 2:47 PM CDT Narrative [facility] ([place]) - 12/18/2019 4:00 PM CDT 1. ?Blood cultures are incubated for 4 days on a continuously monitored blood culture system. The first report of a negative culture is issued within 24 hours of receipt of the specimen in the laboratory. 2. ?Positive culture results are reported as soon as they are detected. 3. ?The most important factor for detection of microbes in the setting of bloodstream infection is the volume of blood submitted for culture. Failure to collect an optimal blood volume can result in false negative blood cultures. For pediatric patients, the recommended blood volume to collect is 1 mL of blood per year of patient age (up to 20 mL) per blood culture set. For adult patients, 20 mL of blood, divided equally between aerobic and anaerobic blood culture bottles, is recommended for each blood culture set. 4. ?For blood cultures with Gram-positive cocci, a rapid molecular test for organism identification may be performed using the [facility] Gram-Positive Blood Culture Assay. This assay detects microbial DNA in positive blood culture broth via hybridization of target DNA to capture oligonucleotides on a microarray. This assay has been cleared by the [place] Food and Drug Administration and its performance characteristics have been verified by the [facility]. 5. ?For questions about this culture, contact the Microbiology Laboratory at [phone]. Interpretive data was last revised on 2019. Miranda Carmichael MD LAB MICROBIOLOGY - GENERAL ORDERABLES Final Result [facility] ([place]) 1 [facility] Department [place] [address] * hCG, blood, quantitative (12/14/2019 10:46 AM CDT) hCG, quant <5.0 0.0 - 5.0 IUnits/L [facility] ([place]) Comment: Interpretive Data Non- Female premenopausal: < or = 5.0 IUnits/L Men: < 5.0 IUnits/L Weeks of Gestation ? Reference Interval ?? 3 to 6 ? 5.8-31,795 IUnits/L ?? 7 to 10 ? 3,697-186,977 IUnits/L ??12 to 15 ?27,832- 70,791 IUnits/L ??16 to 18 ? 9,040- 58,179 IUnits/L Current Interpretive Data was last revised on 2017. Blood specimen (specimen) 12/14/2019 10:46 AM CDT 12/14/2019 1:23 PM CDT us Bryson Clark MD LAB BLOOD ORDERA BLES Edited Result - Final [facility] ([place]) 1 [facility] Department [place] [address] * eGFR (12/14/2019 10:46 AM CDT) eGFR 143 mL/min/1.7 3 m2 [facility] ([place]) Comment: Interpretive Data Reference Interval Normal ?>/= 90 mL/min/1.73m2 Mildly decreased* ? 60 - 89 mL/min/1.73m2 Mildly to moderately decreased ?45 - 59 mL/min/1.73m2 Moderately to severely decreased ??30 - 44 mL/min/1.73m2 Severely decreased ?15 - 29 mL/min/1.73m2 Kidney Failure ?< 15 ??mL/min/1.73m2 *Relative to young adult level If -Jamaican multiply value by 1.16. Estimated glomerular filtration [...] was last reviewed 2015. Blood specimen (specimen) 12/14/2019 10:46 AM CDT 12/14/2019 10:51 AM CDT Miranda Carmichael MD LAB BLOOD ORDERABLES Final Result [facility]AY [facility] ([place]) 1 [facility] Department [place] [address] * Differential, auto (12/14/2019 10:46 AM CDT) Neutrophil abs 2.8 1.7 - 6.5 K/cumm [facility] ([place]) Imm gran abs 0.0 0.0 - 0.1 K/cumm [facility] ([place]) Lymphocyte abs 1.6 0.8 - 3.3 K/cumm [facility] ([place]) Monocyte abs 0.5 0.2 - 0.8 K/cumm [facility] ([place]) Eosinophil abs 0.2 0.0 - 0.5 K/cumm [facility] ([place]) Basophil abs 0.0 0.0 - 0.1 K/cumm [facility] ([place]) Neutrophil pct 54.8 % [facility] ([place]) Comment: Interpretive Data Percent cell count reference ranges are not reported, since discordance with absolute values may lead to misinterpretation of CBC data. Current Interpretive Data was last revised on 2017. Imm gran pct 0.2 % [facility] ([place]) Comment: Interpretive Data Percent cell count reference ranges are not reported, since discordance with absolute values may lead to misinterpretation of CBC data. Current Interpretive Data was last revised on 2017. Lymphocyte pct 30.5 % [facility] ([place]) Comment: Interpretive Data Percent cell count reference ranges are not reported, since discordance with absolute values may lead to misinterpretation of CBC data. Current Interpretive Data was last revised on 2017. Monocyte pct 9.8 % [facility] ([place]) Comment: Interpretive Data Percent cell count reference ranges are not reported, since discordance with absolute values may lead to misinterpretation of CBC data. Current Interpretive Data was last revised on 2017. Eosinophil pct 4.3 % [facility] ([place]) Comment: Interpretive [...] last revised on 2017. Blood specimen (specimen) 12/14/2019 10:46 AM CDT 12/14/2019 10:51 AM CDT Miranda Carmichael MD LAB BLOOD ORDERABLES Final Result Performing Organization Address City/[facility]/ZIP Co de Phone Number SAY [facility] ([place]) 1 [facility] [employer] [place] [address] * Sepsis Lactate w/ Reflex (12/14/2019 10:46 AM CDT) Pathologist [facility] Sepsis Lactate 1.0 0.7 - 2.0 mmol/L SAY [facility] ([place]) Blood specimen (specimen) 12/14/2019 10:46 AM CDT 12/14/2019 10:51 AM CDT Miranda Carmichael MD LAB BLOOD ORDERABLES Final Result [facility] ([place] 1 [facility] [place] [employer] [place] [address] * (ABNORMAL) Comprehensive metabolic panel (12/14/2019 10:46 AM CDT) Sodium 135 135 - 145 mmol/L [facility] ([place]) Potassium, pl 4.6 3.3 - 4.9 mmol/L [facility] ([place]) Chloride 102 97 - 110 mmol/L [facility] ([place]) CO2 21(L) 22 - 32 mmol/L [facility] ([place]) Anion gap 12 2 - 15 mmol/L [facility] ([place]) BUN 10 8 - 25 mg/dL [facility] ([place]) Creatinine 0.46(L) 0.60 - 1.10 mg/dL [facility] ([place]) Glucose 85 70 - 199 mg/dL [facility] ([place]) [...] interpretive data was last revised 2017. Calcium 9.1 8.5 - 10.3 mg/dL [facility] ([place]) Bilirubin, total 0.3 0.1 - 1.2 mg/dL [facility] ([place]) Protein, pl 7.0 6.5 - 8.5 g/dL [facility] ([place]) Albumin 4.0 3.5 - 5.0 g/dL [facility] ([place]) Alk phos 51 40 - 130 Units/L [facility] ([place]) ALT 19 7 - 45 Units/L [facility] ([place]) AST 24 10 - 45 Units/L [facility] ([place]) Comment: Hemolysis present. ??Results may be affected. Slightly Hemolyzed Specimen Blood specimen (specimen) 12/14/2019 10:46 AM CDT 12/14/2019 10:51 AM CDT us Miranda Carmichael MD LAB BLOOD ORDERABLES Final Result [facility] ([place]) 1 [facility] Department [place] [address] * Blood culture Blood Forearm, right (12/14/2019 10:46 AM CDT) Report Final Report: No growth [facility] ([place]) Comment:Testing performed by : [facility], [address] [facility], [place]., [address] Blood specimen (specimen) (Forearm, right) 12/14/2019 10:46 AM CDT 12/14/2019 2:46 PM CDT Narrative [facility] ([place]) - 12/18/2019 4:00 PM CDT 1. ?Blood cultures are incubated for 4 days on a continuously monitored blood culture system. The first report of a negative culture is issued within 24 hours of receipt of the specimen in the laboratory. 2. ?Positive culture results are reported as soon as they are detected. 3. ?The most important factor for detection of microbes in the setting of bloodstream infection is the volume of blood submitted for culture. Failure to collect an optimal blood volume can result in false negative blood cultures. For pediatric patients, the recommended blood volume to collect is 1 mL of blood per year of patient age (up to 20 mL) per blood culture set. For adult patients, 20 mL of blood, divided equally between aerobic and anaerobic blood culture bottles, is recommended for each blood culture set. 4. ?For blood cultures with Gram-positive cocci, a rapid molecular test for organism identification may be performed using the [employer] Gram-Positive Blood Culture Assay. This assay detects microbial DNA in positive blood culture broth via hybridization of target DNA to capture oligonucleotides on a microarray. This assay has been cleared by the [place] Food and Drug Administration and its performance characteristics have been verified by the [facility]. 5. ?For questions about this culture, contact the Microbiology Laboratory at [phone]. Interpretive data was last revised on 2019. us Miranda Carmichael MD LAB MICROBIOLOGY - GENERAL ORDERABLES Final Result [facility] ([place]) 1 [facility] Department [place] [address] * (ABNORMAL) CRP (acute phase) (12/14/2019 10:46 AM CDT) CRP 38.9(H) <=10.0 mg/L [facility] ([place]) Blood specimen (specimen) 12/14/2019 10:46 AM CDT 12/14/2019 10:51 AM CDT Miranda Carmichael MD LAB BLOOD ORDERABLES Final Result Performing Organization Address City/[facility]/ZIP Co de Phone Number [facility] ([place]) 1 [facility] [place] [address] * CBC with auto differential (12/14/2019 10:46 AM CDT) WBC 5.1 3.8 - 9.9 K/cumm [facility] ([place]) Hgb 12.4 11.9 - 15.5 g/dL [facility] ([place]) Hct 37.5 35.6 - 45.5 % [facility] ([place]) Plt 248 150 - 400 K/cumm [facility] ([place]) MPV 9.5 9.1 - 12.3 fL [facility] ([place]) RBC 4.12 3.90 - 5.20 M/cumm [facility] ([place]) MCV 91.0 81.3 - 96.4 fL [facility] ([place]) MCH 30.1 27.1 - 33.3 pg [facility] ([place]) MCHC 33.1 32.3 - 35.7 g/dL [facility] ([place]) RDW CV 13.4 11.1 - 14.9 % [facility] ([place]) RDW SD 45.2 35.7 - 48.1 fL [facility] ([place]) NRBC abs 0.00 0.00 - 0.01 K/cumm [facility] ([place]) Blood specimen (specimen) 12/14/2019 10:46 AM CDT 12/14/2019 10:51 AM CDT Miranda Carmichael MD LAB BLOOD ORDERABLES Final Result Performing Organization Address City/[facility]/ZIP Co de Phone Number [facility] ([place]) 1 [facility] [place] [address] documented in this encounter Visit Diagnoses Not on filedocumented in this encounter Administered Medications Inactive Administered Medications - up to 3 most recent administrations Medication Order MAR Action Action Date Dose Rate Site acetaminophen (TYLENOL) tablet 650 mg 650 mg, oral, Every 4 hours PRN, 1st line for pain, Starting on 12/14/19 at 1328, Indications: PainIndications:Pain Given 12/15/2019 8:24 PM CDT 650 mg Given 12/15/2019 11:16 AM CDT 650 mg Given 12/14/2019 8:44 PM CDT 650 mg bupivacaine-EPINEPHrine (MARCAINE with EPI) 0.5 %-1:200,000 preservative free injection As needed, Starting on 12/15/19 at 1019, Intra-Op Given 12/15/2019 10:19 AM CDT 15 mL Surgical Site cefepime (MAXIPIME) 2,000 mg in sodium chloride 0.9% 100 mL IVPB 2,000 mg, intravenous, at 200 mL/hr, Administer over 30 Minutes, Every 8 hours scheduled, First dose on 12/14/19 at 1400, Mini-Bag Plus bag, Indications: Skin/Soft Tissue InfectionIndications:Skin/S oft Tissue Infection New Bag 12/16/2019 2:31 PM CDT 2,000 mg 200 mL/hr New Bag 12/16/2019 6:51 AM CDT 2,000 mg 200 mL/hr New Bag 12/15/2019 8:22 PM CDT 2,000 mg 200 mL/hr clindamycin (CLEOCIN) 900 mg/50 mL in dextrose 5% (premix) 900 mg 900 mg, intravenous, at 100 mL/hr, Administer over 30 Minutes, Every 8 hours scheduled, First dose (after last modification) on 12/14/19 at 1140, Indications: Skin/Soft Tissue InfectionIndications:Skin/Soft Tissue Infection New Bag 12/16/2019 3:13 PM CDT 900 mg 100 mL/hr New Bag 12/16/2019 5:51 AM CDT 900 mg 100 mL/hr New Bag 12/15/2019 9:07 PM CDT 900 mg 100 mL/hr ibuprofen (ADVIL,MOTRIN) tablet 800 mg 800 mg, oral, 3 times daily PRN, 1st line for pain, fever, headaches, Starting on 12/15/19 at 1336 Given 12/16/2019 5:54 AM CDT 800 mg ondansetron (ZOFRAN) injection 4 mg 4 mg, intravenous, Administer over 2 Minutes, Every 4 hours PRN, nausea, vomiting, Starting on 12/14/19 at 1705 Given 12/15/2019 10:20 AM CDT 4 mg Given 12/14/2019 5:09 PM CDT 4 mg oxyCODONE (ROXICODONE) tablet 5 mg 5 mg, oral, Every 8 hours PRN, 2nd line for pain, Starting on 12/15/19 at 1345, May administer 1 hour after 1st line agent for uncontrolled or increasing pain., Indications: PainIndications:Pain Given 12/16/2019 12:55 PM CDT 5 mg sodium chloride 0.9 % irrigation As needed, Starting on 12/15/19 at 1019, Intra-Op Given 12/15/2019 10:19 AM CDT 500 mL Surgical Site documented in this encounter Discontinued Medications Medication Sig Discontinue Reason Start Date End Da te albuterol HFA (PROVENTIL HFA,VENTOLIN HFA,PROAIR HFA) 90 mcg/actuation inhaler INHALE 2 PUFFS EVERY 4-6 HOURS NEEDED FOR COUGH OR SHORTNESS OF BREATH 04/05/2019 12/14/2019 amoxicillin-clavulana te (AUGMENTIN) 875-125 mg per tablet TK 1 T PO BID WF FOR 10 DAYS 04/12/2019 12/14/2019 azelastine (OPTIVAR) 0.05 % ophthalmic solution INSTIL 1 GTT INTO LEFT EYE BID 10/24/2018 12/14/2019 bacitracin (bacitracin) 500 unit/gram ointment Apply topically 2 times daily 02/04/2019 12/14/2019 cephalexin (KEFLEX) 500 mg capsule Take 1 capsule (500 mg total) by mouth 4 (four) times a day for 10 days 12/10/2019 12/14/2019 ergocalciferol (VITAMIN D) 50,000 unit capsule TAKE 1 CAPSULE BY MOUTH 1 TIME A WEEK FOR 6 DOSES 12/31/2018 12/14/2019 ergocalciferol (VITAMIN D) 50,000 unit capsule 05/23/2019 12/14/2019 ferrous sulfate 325 mg (65 mg of elemental iron) tablet Take 325 mg by mouth 3 (three) times a day with meals 06/12/2017 12/14/2019 ibuprofen (ADVIL,MOTRIN) 800 mg tablet Take 800 mg by mouth every 6 hours as needed 12/14/2019 methylPREDNISolone (MEDROL DOSEPACK) 4 mg Dosepack FPD 04/07/2019 12/14/2019 mupirocin (BACTROBAN) 2 % cream Apply topically 3 (three) times a day 12/10/2019 12/14/2019 olopatadine (Pazeo) 0.7 % ophthalmic solution INT 1 GTT IN OS ONCE A DAY 10/24/2018 12/14/2019 omeprazole (PriLOSEC) 20 mg capsule Take 20 mg by mouth daily 04/12/2019 12/14/2019 promethazine-DM (PROMETHAZINE-DM) 1.25-3 mg/mL syrup TK 5 ML PO QID PRF COUGH 04/07/2019 12/14/2019 SUMAtriptan (IMITREX) 50 mg tablet Take 50 mg by mouth 12/14/2019 topiramate (TOPAMAX) 25 mg tablet Take 50 mg by mouth 2 times daily 06/12/2017 12/14/2019 HYDROcodone-acetamino phen (NORCO) 5-325 mg per tabletIndications:Rosa n Take 1-2 tablets by mouth every 4 (four) hours as needed for pain Do not exceed 8 tablets/day. Stop Taking at Discharge 12/12/2019 12/16/2019 documented as of this encounter Active and Recently Administered Medications Times are shown in CDT. Scheduled Medication Order 12/14/2019 12/15/2019 12/16/2019 cefepime (MAXIPIME) 2,000 mg in sodium chloride 0.9% 100 mL IVPB 2,000 mg, intravenous, at 200 mL/hr, Administer over 30 Minutes, Every 8 hours scheduled, First dose on 12/14/19 at 1400, Mini-Bag Plus bag, Indications: Skin/Soft Tissue Infection 1454 (New Bag - Provider: Sumi Foley RN)2044 (New Bag - Provider: Amada Curry RN) 0642 (New Bag - Provider: Amada Curry RN)1001 (JUL Hold - Provider: Automatic Transfer Provider - Reason: Patient not available)1112 (MAR Unhold - Provider: Automatic Transfer Provider)1455 (New Bag - Provider: Deanne Serrano RN)2021 (New Bag - Provider: Melonie Gordon, TRAY) 0651 (New Bag - Provider: Melonie Gordon, TRAY)1431 (New Bag - Provider: Deanne Serrano RN) clindamycin (CLEOCIN) 900 mg/50 mL in dextrose 5% (premix) 900 mg 900 mg, intravenous, at 100 mL/hr, Administer over 30 Minutes, Every 8 hours scheduled, First dose (after last modification) on 12/14/19 at 1140, Indications: Skin/Soft Tissue Infection 1152 (New Bag - Provider: Nelsy Ceja, RN)1300 (Stopped - Provider: Sumi Foley, RN)2119 (New Bag - Provider: Amada Curry, RN) 0607 (New Bag - Provider: Amada Curry, RN)1001 (JUL Hold - Provider: Automatic Transfer Provider - Reason: Patient not available)1112 (JUL Unhold - Provider: Automatic Transfer Provider)1351 (New Bag - Provider: Deanne Serrano RN)2107 (New Bag - Provider: Melonie Gordon, TRAY) 0551 (New Bag - Provider: Melonie Gordon, TRAY)1513 (New Bag - Provider: Deanne Serrano, TRAY) doxycycline (VIBRAMYCIN) tablet/capsule 100 mg (CANCELED) 100 mg, oral, 2 times daily (for quinolones,etc), First dose on 12/14/19 at 1400, Give 2 hrs before or 2 hrs after MVI, antacids, or other products containing sucralfate, magnesium, aluminum, iron, or zinc. May be taken without regard to meals., Indications: Skin/Soft Tissue Infection 1454 (Given - Provider: Sumi Foley, RN) enoxaparin (LOVENOX) syringe 40 mg 40 mg, subcutaneous, Daily (for enoxaparin), First dose on 12/14/19 at 2100, Indications: Deep Vein Thrombosis Prevention 2039 (Not Given - Provider: Amada Curry, TRAY - Reason: Patient/family refused) 1001 (JUL Hold - Provider: Automatic Transfer Provider - Reason: Patient not available)1112 (MAR Unhold - Provider: Automatic Transfer Provider)2019 (Not Given - Provider: Melonie Gordon, TRAY - Reason: Patient/family refused) ketorolac (TORADOL) injection 30 mg (COMPLETED) 30 mg, intravenous, Once, On 12/14/19 at 1032, For 1 dose, For Adult IV push, administer over 15 seconds 1046 (Given - Provider: Nelsy Ceja, TRAY) PRN Medication Order 12/14/2019 12/15/2019 12/16/2019 acetaminophen (TYLENOL) tablet 650 mg 650 mg, oral, Every 4 hours PRN, 1st line for pain, Starting on 12/14/19 at 1328, Indications: Pain 2043 (Given - Provider: Amada Curry, TRAY) 1001 (JUL Hold - Provider: Automatic Transfer Provider - Reason: Patient not available)1112 (JUL Unhold - Provider: Automatic Transfer Provider)111 (Given - Provider: Deanne Serrano, TRAY)2023 (Given - Provider: Melonie Gordon, TRAY) bupivacaine-EPINEPHrine (MARCAINE with EPI) 0.5 %-1:200,000 preservative free injection (CANCELED) As needed, Starting on 12/15/19 at 1019, Intra-Op 1019 (Given - Provider: Bryson Clark MD) ibuprofen (ADVIL,MOTRIN) tablet 800 mg 800 mg, oral, 3 times daily PRN, 1st line for pain, fever, headaches, Starting on 12/15/19 at 1336 0554 (Given - Provider: Melonie Gordon, TRAY) ondansetron (ZOFRAN) injection 4 mg 4 mg, intravenous, Administer over 2 Minutes, Every 4 hours PRN, nausea, vomiting, Starting on 12/14/19 at 1705 1709 (Given - Provider: Sumi Foley, TRAY) 1001 (JUL Hold - Provider: Automatic Transfer Provider - Reason: Patient not available)1020 (Given - Provider: Dieter Clay CRNA)1112 (JUL Unhold - Provider: Automatic Transfer Provider) oxyCODONE (ROXICODONE) tablet 5 mg (CANCELED) 5 mg, oral, Every 4 hours PRN, 2nd line for pain, Starting on 12/14/19 at 1328, May administer 1 hour after 1st line agent for uncontrolled or increasing pain., Indications: Pain 1451 (Given - Provider: Sumi Foley RN) 1001 (JUL Hold - Provider: Automatic Transfer Provider - Reason: Patient not available)1112 (JUL Unhold - Provider: Automatic Transfer Provider)1252 (Given - Provider: Deanne Serrano RN) oxyCODONE (ROXICODONE) tablet 5 mg 5 mg, oral, Every 8 hours PRN, 2nd line for pain, Starting on 12/15/19 at 1345, May administer 1 hour after 1st line agent for uncontrolled or increasing pain., Indications: Pain 1255 (Given - Provider: Deanne Serrano RN) sodium chloride 0.9 % irrigation (CANCELED) As needed, Starting on 12/15/19 at 1019, Intra-Op 1019 (Given - Provider: Bryson Clark MD) documented in this encounter Orders Medications Ordered That Quincy ht Not Have Been Administered Count Last Ordered Date First Ordered Date fentaNYL (SUBLIMAZE) preserv ative free injection 25 mcg 1 12/15/2019 ibuprofen (ADVIL,MOTRIN) tablet 800 mg 1 naloxone (NARCAN) 0.4 mg/mL injection 0.04-0.4 mg 1 12/15/2019 ondansetron (ZOFRAN) injection 4 mg 2 12/1412/14/2019 oxyCODONE (ROXICODONE) tablet 5 mg 2 201912/14/2019 acetaminophen (TYLENOL) tablet 650 mg 1 12/2019 cefepime (MAXIPIME) 2,000 mg in sodium chloride 0.9% 100 mL IVPB 1 12/14/2019 clindamycin (CLEOCIN) 900 mg /50 mL in dextrose 5% (premix) 900 mg 2 12/14/2019 doxycycline (VIBRAMYCIN) tab let/capsule 100 mg 1 12/14/2019 enoxaparin (LOVENOX) syringe 40 mg 1 2019 ketorolac (TORADOL) injection 30 mg 1 12/13 Diet Count Last Ordered Date First Orde red Date ADULT DISCHARGE DIET 1 12/16/2019 Nursing Count Last Ordered Date First Orde red Date DISCHARGE ACTIVITY 1 12/16/2019 DISCHARGE CALL PROVIDER 3 12/16/2019 FOLLOW UP WITH ESTABLISHED PROVIDER 1 12/15 ADT Patient Update Count Last Ordered Date Firs t Ordered Date ED IP DECISION TO ADMIT 1 12/14/2019 documented in this encounter Care Teams Sales Account Executive Relationship Specialty Start Date End Date Venecia Turner MD [address] [facility] [address] [address] LEXIE Gramajo [facility] [address] [place] [address] PCP - General 12/11/19 07/21/21 Jarred Roy MD 2 [facility] [address] [place] [address] 01/30/19 documented as of this encounter
--- OUTSIDE RECORDS SUMMARY | 2024-05-10 20:18 | XMS_ITS | Encounter Summary ---
Author Organization [facility] Healthcare Address [address] [place] [address] Care Team Providers Care Pole Lift Operator Name Role Phone Jarred Roy MD Unavailable [phone] Venecia Turner MD Primary Care Provider [phone] Elma Echevarria NP Unavailable Reason for Referral * Diagnostic Imaging (Routine) - Closed Specialty Diagnoses / Procedures Referred By Contac t Referred To Contact Diagnoses Abnormal uterine and vaginal bleeding, unspecified Procedures US Pelvis W Endovaginal Patricia Robles NP [address] [place] [address] DR LEXEI Gramajo [address] [address] Phone: tel: fax: [address] [address] Referral ID Status Reason Start Date Expiration Date Visits Re quested Visits Authorized [id number] Closed 06/11/2020 07/11/2021 1 1 LDER JOINER Reason for Visit * Diagnostic Imaging (Routine) - Closed Specialty Diagnoses / Procedures Referred By Contac t Referred To Contact Diagnoses Abnormal uterine and vaginal bleeding, unspecified Procedures US Pelvis W Endovaginal Patricia Robles NP [address] [place] [address] DR LEXIE Gramajo [address] [address] Phone: tel: fax:[phone] [facility] [address] [place] [address] Referral ID Status Reason Start Date Expiration Date Visits Re quested Visits Authorized [id number] Closed 06/11/2020 07/11/2021 1 1 Encounter Details Date Type Department Care Team (Latest Contact Info) Description 07/10/2020 1:31 PM SHOULDER JOINER - 07/10/2020 11:59 PM SHOULDER JOINER Hospital Encounter [facility] [address] [place] [address] Deyvi James MD [address] [facility] [address] LEXIE Gramajo [address] [address] Patricia Robles NP [address] [facility] [address] LEXIE Gramajo [address] [address] Abnormal uterine and vaginal bleeding, unspecified Discharge Disposition: Discharge to home or self care Social History Tobacco Use Types Packs/Day Years Used Date Smoking Tobacco: Never Smokeless Tobacco: Never Alcohol Use Standard Drinks/Week Comments No 0 (1 standard drink = 0.6 oz pur e alcohol) Comments Unknown Sex and Gender Information Value Date Recorded Sex Assigned at Not on file Legal Sex Female 11:28 PM SHOULDER JOINER Gender Identity Not on file Sexual Orientation [...] Name Priority Date/Time Associated Diagnosis Comments US PELVIS W ENDOVAGINAL Schedule Routine, Read Routine (OP Routine) 07/10/2020 2:42 PM SHOULDER JOINER Abnormal uterine and vaginal bleeding, unspecified documented in this encounter Results * US Pelvis W Endovaginal (07/10/2020 2:42 PM SHOULDER JOINER) Anatomical Region Laterality Modality Pelvis N/A Ultrasound 07/10/2020 3:36 PM SHOULDER JOINER Impressions 07/10/2020 3:44 PM SHOULDER JOINER 1. ??Essentially unremarkable pelvic ultrasound. 2. ??Trace fluid within the cervix, nonspecific. 3. ??Left ovary 2 cm dominant follicle. Electronically signed by: Bryson Barry M.D. Narrative 07/10/2020 3:44 PM SHOULDER JOINER EXAMINATION: US PELVIS W ENDOVAGINAL ORDERING HEALTHCARE PROVIDER: PATRICIA ROBLES HISTORY: 20-year-old female with abnormal uterine bleeding and irregular menstrual cycles. LMP: 07/05/2020. ?? COMPARISON: None available TECHNIQUE: Transabdominal and transvaginal sonographic evaluation of the pelvic structures with andersen scale, color Doppler and spectral Doppler sonographic images available for review. FINDINGS: UTERUS: Transvaginally, the uterus measures 7.9 x 3.7 x 5.0 cm with endometrial stripe thickness of 7 mm. No solid uterine masses are appreciated. ??A tiny amount of fluid is noted within the cervix. RIGHT OVARY: Transvaginally, the right ovary measures 2.8 x 1.9 x 2.1 cm. There are small follicles in the right ovary. ??No suspicious right ovarian mass is identified. ??Blood flow is demonstrated to the right ovary. LEFT OVARY: The left ovary measures 3.1 x 2.4 x 3.1 cm cm. The left ovary contains a 2 cm dominant follicle. ??No suspicious left ovarian masses identified. ??Blood flow is demonstrated to the left ovary. PELVIC FLUID: No pelvic free fluid is seen. Procedure Note Bryson Barry MD - 07/10/2020 EXAMINATION: US PELVIS W ENDOVAGINAL ORDERING HEALTHCARE PROVIDER: PATRICIA ROBLES HISTORY: 20-year-old female with abnormal uterine bleeding and irregular menstrual cycles. LMP: 07/05/2020. COMPARISON: None available TECHNIQUE: Transabdominal and transvaginal sonographic evaluation of the pelvic structures with andersen scale, color Doppler and spectral Doppler sonographic images available for review. FINDINGS: UTERUS: Transvaginally, the uterus measures 7.9 x 3.7 x 5.0 cm with endometrial stripe thickness of 7 mm. No solid uterine masses are appreciated. A tiny amount of fluid is noted within the cervix. RIGHT OVARY: Transvaginally, the right ovary measures 2.8 x 1.9 x 2.1 cm. There are small follicles in the right ovary. No suspicious right ovarian mass is identified. Blood flow is demonstrated to the right ovary. LEFT OVARY: The left ovary measures 3.1 x 2.4 x 3.1 cm cm. The left ovary contains a 2 cm dominant follicle. No suspicious left ovarian masses identified. Blood flow is demonstrated to the left ovary. PELVIC FLUID: No pelvic free fluid is seen. IMPRESSION: 1. Essentially unremarkable pelvic ultrasound. 2. Trace fluid within the cervix, nonspecific. 3. Left ovary 2 cm dominant follicle. Electronically signed by: Bryson Barry M.D. us Patricia Robles SIDING STAPLER IMG US PROCEDURES Final Resu lt documented in this encounter Visit Diagnoses Diagnosis Abnormal uterine and vaginal bleeding, unspecified documented in this encounter Care Teams Pole Lift Operator Relationship Specialty Start Date End Date Venecia Turner MD [address] [place] [address] DR LEXIE Gramajo [facility] [address] [place] [address] PCP - General 12/11/19 07/21/21 Jarred Roy MD 2 [facility] [address] [place] [address] 01/30/19 Elma Echevarria NP [address] [place] [address] DR LEXIE Gramajo [facility] [address] [place] [address] Nurse Practitioner General Surgery 12/16/19 documented as of this encounter
--- OUTSIDE RECORDS SUMMARY | 2024-05-10 20:18 | XMS_ITS | Encounter Summary ---
Author Organization [facility] Medical Group Address [address] [facility] [facility] [address] [place] [address] Care Team Providers Care Basketball Scout Name Role Phone Jarred Roy MD Unavailable [phone] Venecia Turner MD Primary Care Provider Encounter Details Date Type Department Care Team (Late st Contact Info) Description 12/13/2019 Telephone [facility] [address] [facility] [address] [place] [address] Bryson Clark MD [address] [place] [address] [address] [place] [address] Social History Tobacco Use Types Packs/Day Years Used Date Smoking Tobacco: Never Smokeless Tobacco: Never Alcohol Use Standard Drinks/Week Comments No 0 (1 standard drink = 0.6 oz pur e alcohol) Comments No Sex and Gender Information Value Date Recorded Sex Assigned at Not on file Legal Sex Female 11:28 PM FLIGHT/TRANSPORT NURSE Gender Identity Not on file Sexual Orientation Not on file documented as of this encounter Miscellaneous Notes * Telephone Encounter - Agustina Meza MA - 12/13/2019 3:28 PM CDT Two patient identifiers were used. Patient informed of results. Patient verbalizes understanding. No further questions. * Telephone Encounter - Bryson Clark MD - 12/13/2019 3:21 PM CDT We cannot send in something stronger. The antibiotics are appropriate for what is growing out of the culture. If she thinks it is worsening she needs to go back to the ER as it needs to be opened larger and more aggressively * Telephone Encounter - Agustina Meza MA - 12/13/2019 3:09 PM CDT Patients mother (Jazzy) called stating that Mary is in a lot of pain and the pain medication is not helping. Also they were told to call if the lump seemed larger, it does. 1. Can you send in something stronger? 2. What the culture showed? 3. Does she need a different antibiotic? documented in this encounter Plan of Treatment Not on file documented as of this encounter Visit Diagnoses Not on filedocumented in this encounter Care Teams Basketball Scout Relationship Specialty Start Date End Date Venecia Turner MD [address] [facility] [address] [facility] [address] [place] [address] PCP - General 12/11/19 07/21/21 Jarred Roy MD 2 [facility] [address] [place] [address] 01/30/19 documented as of this encounter
--- OUTSIDE RECORDS SUMMARY | 2024-05-10 20:18 | XMS_ITS | Encounter Summary ---
Author Organization [facility] Healthcare Address [address] [place] [address] Care Team Providers Care Oncology Research Rn Name Role Phone Jarred Roy MD Unavailable [phone] Venecia Turner MD Primary Care Provider [phone] Reason for Visit * Reason Comments Cellulitis Encounter Details Date Type Department Care Team (Late st Contact Info) Description 12/11/2019 10:08 PM CDT - 12/12/2019 3:53 AM CDT Emergency [facility] Emergency Department [address] [place] [address] Annamaria Solis MD [address] [place] [id number] Abscess of suprapubic region (Primary Dx) Discharge Disposition: Discharge to home or self care Social History Tobacco Use Types Packs/Day Years Used Date Smoking Tobacco: Never Smokeless Tobacco: Never Alcohol Use Standard Drinks/Week Comments No 0 (1 standard drink = 0.6 oz pur e alcohol) Comments No Sex and Gender Information Value Date Recorded Sex Assigned at Not on file 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 Gender Identity Not on file Sexual Orientation Not on file documented as of this encounter Last Filed Vital Signs Vital Sign Reading Time Taken Comments Blood Pressure 122/76 12/12/2019 3:39 AM CDT Pulse 77 12/12/2019 3:39 AM CDT Temperature 36.9 ??C (98.4 ??F) 12/12/2019 3:39 AM CD T Respiratory Rate 18 12/12/2019 3:39 AM CDT Oxygen Saturation 97% 12/12/2019 3:39 AM CDT Inhaled Oxygen Concentration - - Weight 108.9 kg (240 lb) 12/11/2019 10:21 PM CDT Height 165.1 cm (5' 5 ) 12/11/2019 10:21 PM CDT Body Mass Index 39.94 12/11/2019 10:21 PM CDT documented in this encounter Discharge Diagnoses Diagnosis Cutaneous abscess of groin - CUTANEOUS ABSCESS OF GROIN documented in this encounter Discharge Instructions * Discharge Instructions* Annamaria Solis MD - 12/12/2019 3:28 AM CDT Bactrim DS one tab twice daily for 10 days. Hydrocodone 1-2 tabs every 4 hours as needed for pain. See Dr. Clark tomorrow for wound recheck. Leave packing in until removed by surgeon. * Attachments The following attachments cannot be sent through Care Everywhere. * Abscess (AfterCare(R) Instructions(ER/ED)) (Liberian) documented in this encounter Medications at Time of Discharge albuterol HFA (PROVENTIL HFA,VENTOLIN HFA,PROAIR HFA) 90 mcg/actuation inhaler INHALE 2 PUFFS EVERY 4-6 HOURS NEEDED FOR COUGH OR SHORTNESS OF BREATH 04/05/2019 0 amoxicillin-clav ulanate (AUGMENTIN) 875-125 mg per tablet TK 1 T PO BID WF FOR 10 DAYS 04/12/2019 0 azelastine (OPTIVAR) 0.05 % ophthalmic solution INSTIL 1 GTT INTO LEFT EYE BID 10/24/2018 0 bacitracin (bacitracin) 500 unit/gram ointment Apply topically 2 times daily 02/04/2019 0 bacitracin (bacitracin) 500 unit/gram ointment Apply topically 2 (two) times a day 02/04/2019 2 cephalexin (KEFLEX) 500 mg capsule Take 1 capsule (500 mg total) by mouth 4 (four) times a day for 10 days 40 capsule 12/10/2019 0 ergocalciferol (VITAMIN D) 50,000 unit capsule TAKE 1 CAPSULE BY MOUTH 1 TIME A WEEK FOR 6 DOSES 12/31/2018 0 ergocalciferol (VITAMIN D) 50,000 unit capsule 05/23/2019 0 ferrous sulfate 325 mg (65 mg of elemental iron) tablet Take 325 mg by mouth 3 (three) times a day with meals 06/12/2017 0 HYDROcodone-acet aminophen (NORCO) 5-325 mg per tabletIndication s:Pain Take 1-2 tablets by mouth every 4 (four) hours as needed for pain Do not exceed 8 tablets/day. 20 tablet 12/12/2019 0 ibuprofen (ADVIL,MOTRIN) 600 mg tablet Take 1 tablet (600 mg total) by mouth every 8 (eight) hours as needed for pain. Take with food. 30 tablet 12/18/2017 2 ibuprofen (ADVIL,MOTRIN) 800 mg tablet Take 800 mg by mouth every 6 hours as needed 0 methylPREDNISolo ne (MEDROL DOSEPACK) 4 mg Dosepack FPD 04/07/2019 0 mupirocin (BACTROBAN) 2 % cream Apply topically 3 (three) times a day 15 g 12/10/2019 0 olopatadine (Pazeo) 0.7 % ophthalmic solution INT 1 GTT IN OS ONCE A DAY 10/24/2018 0 omeprazole (PriLOSEC) 20 mg capsule Take 20 mg by mouth daily 04/12/2019 0 promethazine-DM (PROMETHAZINE-DM ) 1.25-3 mg/mL syrup TK 5 ML PO QID PRF COUGH 04/07/2019 0 sulfamethoxazole -trimethoprim (BACTRIM DS) 800-160 mg per tablet Take 1 tablet by mouth 2 (two) times a day for 10 days 20 tablet 12/12/2019 0 SUMAtriptan (IMITREX) 50 mg tablet Take 50 mg by mouth 0 topiramate (TOPAMAX) 25 mg tablet Take 50 mg by mouth 2 times daily 06/12/2017 0 topiramate (TOPAMAX) 25 mg tablet Take 50 mg by mouth nightly 07/12/2019 2 documented as of this encounter Ordered Prescriptions Prescription Sig Dispense Quantity Refills Last Filled Start Date End Date HYDROcodone-acetam inophen (NORCO) 5-325 mg per tabletIndications: Pain Take 1-2 tablets by mouth every 4 (four) hours as needed for pain Do not exceed 8 tablets/day. 20 tablet 12/12/2019 0 sulfamethoxazole-t rimethoprim (BACTRIM DS) 800-160 mg per tablet Take 1 tablet by mouth 2 (two) times a day for 10 days 20 tablet 12/12/2019 0 documented in this encounter Discharge Disposition Disposition Code Departure Means Destination Discharge to home or self care documented in this encounter ED Notes * Annamaria Solis MD - 12/11/2019 10:58 PM CDTAssociated Order(s): Incision and Drainage Chief Complaint Patient presents with ??? Cellulitis HPI (10:28 PM): Mary Licona is a 19 y.o. female non-smoker with a history of tonsillectomy and adenoidectomy presenting for evaluation of a persistent suprapubic ???abscess.?? Patient reports anarea of erythema and pain with a small abscess to the suprapubic region onset 3 days ago. She was evaluated at [facility] ED yesterday for these symptoms, where she was discharged with Cephalexin 500 mg 4x a day and Mupirocin calcium 2% topical 3x a day. Patient states she has been taking her medications as prescribed, but noted a sudden fever (TMax 101 at home) this evening. She endorses taking Tylenolat ~1945 tonight, which has alleviated her fever. Patient also notes that her abscess began draining yellow/green colored discharge today. Denies recent chills, sweats, cough, sore throat, chest pain, or SOB. Denies a history of diabetes. Her LMP was 2 weeks ago. PCP: Dr. Venecia Turner MD. Nursing Note reviewed Past Medical History: Diagnosis Date ??? HX OTHER MEDICAL T&A in 2012; Comments: MIRANDA 05/20/2014 - ??? HX OTHER MEDICAL elbow fracture 02-06-15.; Comments: MIRANDA 02/09/2015 - Past Surgical History: Procedure Laterality Date ??? TONSILLECTOMY/ADENOIDECTOMY Bilateral HOME MEDICATIONS : albuterol HFA (PROVENTIL HFA,VENTOLIN HFA,PROAIR HFA) 90 mcg/actuation inhaler amoxicillin-clavulanate (AUGMENTIN) 875-125 mg per tablet azelastine (OPTIVAR) 0.05 % ophthalmic solution bacitracin (bacitracin) 500 unit/gram ointment cephalexin (KEFLEX) 500 mg capsule ergocalciferol (VITAMIN D) 50,000 unit capsule ergocalciferol (VITAMIN D) 50,000 unit capsule ferrous sulfate 325 mg (65 mg of elemental iron) tablet HYDROcodone-acetaminophen (NORCO) 5-325 mg per tablet ibuprofen (ADVIL,MOTRIN) 600 mg tablet ibuprofen (ADVIL,MOTRIN) 800 mg tablet methylPREDNISolone (MEDROL DOSEPACK) 4 mg Dosepack mupirocin (BACTROBAN) 2 % cream olopatadine (Pazeo) 0.7 % ophthalmic solution omeprazole (PriLOSEC) 20 mg capsule promethazine-DM (PROMETHAZINE-DM) 1.25-3 mg/mL syrup sulfamethoxazole-trimethoprim (BACTRIM DS) 800-160 mg per tablet SUMAtriptan (IMITREX) 50 mg tablet topiramate (TOPAMAX) 25 mg tablet No Known Allergies Review of Systems Constitutional: Positive for fever. Negative for chills and diaphoresis. HENT: Negative for congestion and sore throat. Eyes: Negative for pain and visual disturbance. Respiratory: Negative for cough, shortness of breath and wheezing. Cardiovascular: Negative for chest pain, palpitations and leg swelling. Gastrointestinal: Negative for abdominal pain, diarrhea, nausea and vomiting. Genitourinary: Negative for difficulty urinating, dysuria and frequency. Skin: See HPI Neurological: Negative for weakness and headaches. All other systems reviewed and are negative. Physical Exam Vitals signs and nursing note reviewed. Constitutional: General: She is awake. She is not in acute distress. Appearance: She is well-developed and overweight. She is not ill-appearing or diaphoretic. HENT: Head: Normocephalic. Nose: Nose normal. Eyes: Conjunctiva/sclera: Conjunctivae normal. Pupils: Pupils are equal, round, and reactive to light. Neck: Musculoskeletal: Normal range of motion and neck supple. Cardiovascular: Rate and Rhythm: Normal rate and regular rhythm. Heart sounds: Normal heart sounds. Pulmonary: Effort: Pulmonary effort is normal. Breath sounds: Normal breath sounds. Abdominal: General: Bowel sounds are normal. Palpations: Abdomen is soft. Tenderness: There is no abdominal tenderness. There is no guarding or rebound. Comments: There is an area of cutaneous erythema, warmth, tenderness, and induration on the suprapubic abdominal wall. There is a small skin lesion on the area that appears to have recently drained some purulent drainage. Musculoskeletal: Normal range of motion. Skin: General: Skin is warm and dry. Neurological: Mental Status: She is alert and oriented to person, place, and time. Psychiatric: Behavior: Behavior is cooperative. Vitals: 12/11/19 2230 12/12/19 0130 12/12/19 0200 12/12/19 0339 BP: 115/61 106/56 115/63 122/76 Pulse: 95 56 75 77 Resp: 18 Temp: 36.9 ??C (98.4 ??F) TempSrc: Tympanic SpO2: 97% 96% 98% 97% Weight: Height: Labs Reviewed URINALYSIS AND REFLEX TO MICROSCOPIC AND CULTURE - Abnormal Result Value Color, ur Yellow Clarity, ur Clear Specific gravity, ur 1.009 (*) pH, urine 8.0 Protein, ur ql Negative Glucose, ur ql Negative Ketones, ur Negative Bilirubin, ur Negative Blood, ur Negative Urobilinogen, ur <2.0 Nitrite, ur Negative Leukocyte esterase, ur 2+ (*) UA reflex comment Reflex to microscopic UA will be performed. Narrative: Urine pH is affected by diet, medications, systemic acid-base disturbances, and renal tubular function. pH may affect urinary stone formation. For example, urine pH below 6.0 may help reduce the tendency for calcium phosphate stones and pH greater than 6.0 may reduce the tendency for uric acid stone formation. Source: [employer].Last revised 05-18-2017 COMPREHENSIVE METABOLIC PANEL - Abnormal Sodium 136 Potassium, pl 4.1 Chloride 103 CO2 22 Anion gap 11 BUN 7 (*) Creatinine 0.46 (*) Glucose 100 Calcium 9.2 Bilirubin, total 0.7 Protein, pl 6.7 Albumin 4.0 Alk phos 56 ALT 21 AST 20 DIFFERENTIAL AUTO - Abnormal Neutrophil abs 6.5 Imm gran abs 0.0 Lymphocyte abs 2.0 Monocyte abs 1.2 (*) Eosinophil abs 0.1 Basophil abs 0.0 Neutrophil pct 65.8 Imm gran pct 0.2 Lymphocyte pct 19.9 Monocyte pct 12.5 Eosinophil pct 1.3 Basophil pct 0.3 URINALYSIS, MICROSCOPIC ONLY - Abnormal WBC, ur 0-5 RBC, ur 0-2 Epithelial cells, squamous, ur 1-5 Bacteria, ur Trace (*) Mucous, ur Present (*) Hyaline casts, ur 1-5 Culture Reflex Comment Value: Reflex conditions for urine culture (WBC >10) not met. 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 and accepts Allergies confirmed: yes Consent form signed, dated, timed; matches correct patient, intended procedure and site: Yes Supplies, devices and special equipment are available: yes Immediately prior to the procedure a time out was called: a verbal verification by the procedure participants confirmed correct patient identity, correct site/side marked and visible (if applicable);agreement on procedure to be done; and correct patient positioning Type: Abscess Size: 2 x 2 cm Location: Trunk Trunk location: Abdomen Skin preparation: Betadine Anesthesia method: Local infiltration Local anesthetic: Lidocaine 1% WITH epi Incision types: Stab incision Incision depth: Dermal Scalpel blade: 15 Wound management: Probed and deloculated Drainage: Purulent Drainage amount: Moderate Packing materials: 1/4 in iodoform gauze Patient tolerance of procedure: Tolerated well, no immediate complications All guidewires, needles, sponges or other items are accounted for: yes MDM ED Course as of Dec 12 519 Time: 12/11 154 Comment: Spoke with Dr. Clark, surgery, who agrees to consult and agrees with plan for patient care. He requests that the patient follow-up with him as an outpatient. By: Hannah Shin Time: 12/11 201 Comment: Updated patient and mother at bedside on lab results and plan to perform a bedside I&D. Patient and mother are agreeable to plan at this time. By: Hannah Shin IMPRESSION: 1. Abscess of suprapubic region ATTESTATIONS: This note is prepared by Hannah Shin acting as a scribe for Dr. Annamaria Solis MD, I electronically signed this note at 5:20 AM on 12/12/2019. I, Dr. Annamaria Solis MD, have personally performed the services described in the documentation , reviewed the documentation, as recorded by the scribe in my presence, and it accurately and completely records my words and actions. Annamaria Solis MD 12/12/19 05 * Anaya Logn RN - 12/11/2019 10:15 PM CDT Patient arrives to ER with complaint of cellulitis and fever for past two days. Patient states being seen in ER yesterday for groin redness, warmth, and pustules. Patient states being dx with cellulitis and sent home with 500mg Keflex four times a day. Patient states taking a total of 4 tablets over the course of past two days. Patient states that this afternoon patient began to have fever. Reports taking 600mg ibuprofen at 1500 and tylenol (unsure of dosage) at 1900. Patient states that pustules on pelvis and groin have began to drain yellow to green discharge. documented in this encounter Plan of Treatment Not on file documented as of this encounter Procedures Procedure Name Priority Date/Time Associated Diagnosis Comments AEROBIC CULTURE AND GRAM STAIN Routine 12/12/2019 3:35 AM CDT SEPSIS LACTATE WITH REFLEX STAT 12/11/2019 11:32 PM CDT EGFR STAT 12/11/2019 11:18 PM CDT DIFFERENTIAL AUTO STAT 12/11/2019 11: 18 PM CDT URINALYSIS AND REFLEX TO MICROSCOPIC AND CULTURE STAT 12/11/2019 11:18 PM CDT CBC WITH AUTO DIFFERENTIAL STAT 12/11/2019 11:18 PM CDT HCG, URINE, QUALITATIVE STAT 12/11/2019 11:18 PM CDT URINALYSIS, MICROSCOPIC ONLY STAT 12/11/2019 11:18 PM CDT COMPREHENSIVE METABOLIC PANEL STAT 12/11/2019 11:18 PM CDT PA INCISION & DRAINAGE ABSCESS SIMPLE/SINGLE Routine 12/11/2019 10:58 PM CDT documented in this encounter Results * (ABNORMAL) Aerobic culture and gram stain Wound Groin (12/12/2019 3:35 AM CDT) Direct Specimen Exam Stain: Rare polymorphonuclear leukocytes seen. Rare Gram Positive Cocci Slide reviewed. ??Review is consistent with original read. [facility] ([place]) Comment:Testing performed by : [facility], [address] [place]., [address] Report Final Report: Moderate Staphylococcus aureus Methicillin susceptible (MSSA) by penicillin binding protein 2a (PBP2a) testing. (.) [facility] ([place]) Comment:Testing performed by : [facility], [address] [place]., [address] Organism STAPHYLOCOCCUS AUREUS [facility] ([place]) Wound (Groin) 12/12/2019 3:3 5 AM CDT 12/12/2019 6:52 AM CDT Narrative [facility] ([place]) - 12/15/2019 1:09 PM CDT Testing performed by [facility] Microbiology Laboratory ([phone]) Specimens submitted from normally sterile body sites [...] Susceptible Staphylococcus aureus Ceftriaxone INTERPRETATION Susceptible us Annamaria Solis MD LAB MICROBIOLOGY - GENERAL ORDERABLES Final Result [facility] ([place]) 1 [facility] Department [place] [address] * (ABNORMAL) Sepsis Lactate w/ Reflex (12/11/2019 11:32 PM CDT) Sepsis Lactate 0.6(L) 0.7 - 2.0 mmol/L [facility] ([place]) Blood specimen (specimen) 12/11/2019 11:32 PM CDT 12/11/2019 11:36 PM CDT us Annamaria Solis MD LAB BLOOD ORDERABLES Final Result Performing Organization Address City/[facility]/ZIP Co de Phone Number [facility] ([place]) 1 [facility] [place] [address] * eGFR (12/11/2019 11:18 PM CDT) eGFR 143 mL/min/1.7 3 m2 [facility] ([place]) Comment: Interpretive Data Reference Interval Normal ?>/= 90 mL/min/1.73m2 Mildly decreased* ? 60 - 89 mL/min/1.73m2 Mildly to moderately decreased ?45 - 59 mL/min/1.73m2 Moderately to severely decreased ??30 - 44 mL/min/1.73m2 Severely decreased ?15 - 29 mL/min/1.73m2 Kidney Failure ?< 15 ??mL/min/1.73m2 *Relative to young adult level If -Bangladeshi multiply value by 1.16. Estimated glomerular filtration [...] was last reviewed 2015. Blood specimen (specimen) 12/11/2019 11:18 PM CDT 12/11/2019 11:20 PM CDT us Annamaria Solis MD LAB BLOOD ORDERABLES Final Result [facility] ([place]) 1 [facility] [place] [address] * (ABNORMAL) Urinalysis, microscopic only (12/11/2019 11:18 PM CDT) WBC, ur 0-5 0 - 5 /HPF [facility] ([place]) RBC, ur 0-2 0 - 2 /HPF [facility] ([place]) Epithelial cells, squamous, ur 1-5 0 - 5 /HPF [facility] ([place]) Bacteria, ur Trace(A) [facility] ([place]) Mucous, ur Present(A) [facility] ([place]) Hyaline casts, ur 1-5 0 - 10 /LPF [facility] ([place]) Culture Reflex Comment Reflex conditions for urine culture (WBC >10) not met. [facility] ([place]) Urine 12/11/2019 11:1 8 PM CDT 12/11/2019 11:20 PM CDT us Annamaria Solis MD LAB URINE ORDERABLES Final Result [facility] ([place]) 1 [facility] [place] [address] * (ABNORMAL) Differential, auto (12/11/2019 11:18 PM CDT) Neutrophil abs 6.5 1.7 - 6.5 K/cumm [facility] ([place]) Imm gran abs 0.0 0.0 - 0.1 K/cumm [facility] ([place]) Lymphocyte abs 2.0 0.8 - 3.3 K/cumm [facility] ([place]) Monocyte abs 1.2(H) 0.2 - 0.8 K/cumm [facility] ([place]) Eosinophil abs 0.1 0.0 - 0.5 K/cumm [facility] ([place]) Basophil abs 0.0 0.0 - 0.1 K/cumm [facility] ([place]) Neutrophil pct 65.8 % [facility] ([place]) Comment: Interpretive [...] was last revised on 2017. Lymphocyte pct 19.9 % [facility] ([place]) Comment: Interpretive Data Percent cell count reference ranges are not reported, since discordance with absolute values may lead to misinterpretation of CBC data. Current Interpretive Data was last revised on 2017. Monocyte pct 12.5 % [facility] ([place]) Comment: Interpretive Data Percent cell count reference ranges are not reported, since discordance with absolute values may lead to misinterpretation of CBC data. Current Interpretive Data was last revised on 2017. Eosinophil pct 1.3 % [facility] ([place]) Comment: Interpretive Data Percent cell count reference ranges are not reported, since discordance with absolute values may lead to misinterpretation of CBC data. Current Interpretive Data was last revised on 2017. Basophil pct 0.3 % [facility] ([place]) Comment: Interpretive Data Percent cell count reference ranges are not reported, since discordance with absolute values may lead to misinterpretation of CBC data. Current Interpretive Data was last revised on 2017. Blood specimen (specimen) 12/11/2019 11:18 PM CDT 12/11/2019 11:20 PM CDT us Annamaria Solis MD LAB BLOOD ORDERABLES Final Result Performing Organization Address City/[facility]/ZIP Co de Phone Number [facility] ([place]) 1 [facility] [place] [address] * hCG, urine, qualitative (12/11/2019 11:18 PM CDT) HCG, ur Negative Negative [facility] ([place]) Urine 12/11/2019 11:1 8 PM CDT 12/11/2019 11:20 PM CDT Annamaria Solis MD LAB URINE ORDERABLES Final Result [facility] ([place]) 1 [facility] [place] [address] * (ABNORMAL) Urinalysis reflex to microscopic and culture Urine (12/11/2019 11:18 PM CDT) Color, ur Yellow Yellow [facility] ([place]) Clarity, ur Clear Clear [facility] ([place]) Specific gravity, ur 1.009(L) 1.010 - 1.025 [facility] ([place]) pH, urine 8.0 [facility] ([place]) Protein, ur ql Negative Negative [facility] ([place]) Glucose, ur ql Negative Negative [facility] ([place]) Ketones, ur Negative Negative [facility] ([place]) Bilirubin, ur Negative Negative [facility] ([place]) Blood, ur Negative Negative [facility] ([place]) Urobilinogen, ur <2.0 <2.0 mg/dL [facility] ([place]) Nitrite, ur Negative Negative [facility] ([place]) Leukocyte esterase, ur 2+(A) Negative [facility] ([place]) UA reflex comment Reflex to microscopic UA will be performed. [facility] ([place]) Urine 12/11/2019 11:1 8 PM CDT 12/11/2019 11:20 PM CDT Narrative [facility] ([place]) - 12/11/2019 11:24 PM CDT ?? Urine pH is affected by diet, medications, systemic acid-base disturbances, and renal tubular function. ??pH may affect urinary stone formation. ??For example, urine pH below 6.0 may help reduce the tendency for calcium phosphate stones and pH greater than 6.0 may reduce the tendency for uric acid stone formation. Source: [employer]. Last revised 05-18-2017 us Annamaria Solis MD LAB MICROBIOLOGY - GENERAL ORDERABLES Final Result [facility] ([place]) 1 [facility] [place] [address] * (ABNORMAL) Comprehensive metabolic panel (12/11/2019 11:18 PM CDT) Sodium 136 135 - 145 mmol/L [facility] ([place]) Potassium, pl 4.1 3.3 - 4.9 mmol/L [facility] ([place]) Chloride 103 97 - 110 mmol/L [facility] ([place]) CO2 22 22 - 32 mmol/L [facility] ([place]) Anion gap 11 2 - 15 mmol/L [facility] ([place]) BUN 7(L) 8 - 25 mg/dL [facility] ([place]) Creatinine 0.46(L) 0.60 - 1.10 mg/dL [facility] ([place]) Glucose 100 70 - 199 mg/dL [facility] ([place]) [...] 2017. Calcium 9.2 8.5 - 10.3 mg/dL [facility] ([place]) Bilirubin, total 0.7 0.1 - 1.2 mg/dL [facility] ([place]) Protein, pl 6.7 6.5 - 8.5 g/dL [facility] ([place]) Albumin 4.0 3.5 - 5.0 g/dL [facility] ([place]) Alk phos 56 40 - 130 Units/L [facility] ([place]) ALT 21 7 - 45 Units/L [facility] ([place]) AST 20 10 - 45 Units/L [facility] ([place]) Comment:Slightly Hemolyzed S pecimen Blood specimen (specimen) 12/11/2019 11:18 PM CDT 12/11/2019 11:20 PM CDT us Annamaria Solis MD LAB BLOOD ORDERABLES Final Result [facility] ([place] 1 [facility] [place] [address] * CBC with auto differential (12/11/2019 11:18 PM CDT) WBC 9.9 3.8 - 9.9 K/cumm [facility] ([place]) Hgb 12.9 11.9 - 15.5 g/dL [facility] ([place]) Hct 38.1 35.6 - 45.5 % [facility] ([place]) Plt 220 150 - 400 K/cumm [facility] ([place]) MPV 9.4 9.1 - 12.3 fL [facility] ([place]) RBC 4.23 3.90 - 5.20 M/cumm [facility] ([place]) MCV 90.1 81.3 - 96.4 fL [facility] ([place]) MCH 30.5 27.1 - 33.3 pg [facility] ([place]) MCHC 33.9 32.3 - 35.7 g/dL [facility] ([place]) RDW CV 13.3 11.1 - 14.9 % [facility] ([place]) RDW SD 43.8 35.7 - 48.1 fL [facility] ([place]) NRBC abs 0.00 0.00 - 0.01 K/cumm [facility] ([place]) Blood specimen (specimen) 12/11/2019 11:18 PM CDT 12/11/2019 11:20 PM CDT us Annamaria Solis MD LAB BLOOD ORDERABLES Final Result [facility] ([place]) 1 [facility] [place] [address] * PA INCISION & DRAINAGE ABSCESS SIMPLE/SINGLE (12/11/2019 10:58 PM CDT) Narrative Annamaria Solis MD - 12/11/2019 10:58 PM CDT Annamaria Solis MD ? 12/12/2019 ??5:21 AM Incision and Drainage Date/Time: 12/12/2019 3:28 AM Performed by: Annamaria Solis MD Authorized by: Annamaria Solis MD RN Notified of Procedure: yes ?? Informed consent: ??Risks, benefits, alternatives discussed and patient/commercial pest control representative/guardian agrees and accepts Allergies confirmed: yes ?? Consent form signed, dated, timed; matches correct patient, intended procedure and site: ??Yes Supplies, devices and special equipment are available: yes ?? Immediately prior to the procedure a time out was called: a verbal verification by the procedure participants confirmed correct patient identity, correct site/side marked and visible (if applicable); agreement on procedure to be done; and correct patient positioning ?? Type: ??Abscess Size: ??2 x 2 cm Location: ??Trunk Trunk location: ??Abdomen Skin preparation: ??Betadine Anesthesia method: ??Local infiltration Local anesthetic: ??Lidocaine 1% WITH epi Incision types: ??Stab incision Incision depth: ??Dermal Scalpel blade: ??15 Wound management: ??Probed and deloculated Drainage: ??Purulent Drainage amount: ??Moderate Packing materials: ??1/4 in iodoform gauze Patient tolerance of procedure: ??Tolerated well, no immediate complications All guidewires, needles, sponges or other items are accounted for: yes ?? us Annamaria Solis MD IN CLINIC/BEDSIDE ORDERABL ES Final Result documented in this encounter Visit Diagnoses Diagnosis Abscess of suprapubic region- Primary documented in this encounter Administered Medications Inactive Administered Medications - up to 3 most recent administrations Medication Order MAR Action Action Date Dose Rate Site HYDROcodone-acetaminophen (NORCO) 5-325 mg per tablet 1 tablet 1 tablet, oral, Once, On Mon12/12/19 at 0340, For 1 dose, Indications: PainIndications:Pain Given 12/12/2019 3:44 AM CDT 1 tablet ketorolac (TORADOL) injection 30 mg 30 mg, intravenous, Once, On Mon12/11/19 at 2251, For 1 dose, For Adult IV push, administer over 15 seconds Given 12/11/2019 11:14 PM CDT 30 mg lidocaine-EPINEPHrine (XYLOCAINE with EPI) 1 %-1:100,000 injection 10 mL 10 mL, infiltration, Once, On Mon12/12/19 at 0310, For 1 dose, Indications: Administration of Local AnesthesiaIndications:Adminis tration of Local Anesthesia Given 12/12/2019 3:27 AM CDT 10 mL LORazepam (ATIVAN) injection 0.5 mg 0.5 mg, intravenous, Once, On [place] 12/12/19 at 0125, For 1 dose, For IV administration, dilute with equal volume of 0.9% sodium chloride. Do not exceed a rate of 2 mg/minute Given 12/12/2019 1:36 AM CDT 0.5 mg sodium chloride 0.9% bolus 1,000 mL 1,000 mL, intravenous, at 1,000 mL/hr, Administer over 1 Hours, Once, On Mon12/11/19 at 2251, For 1 dose New Bag 12/11/2019 11:14 PM CDT 1,000 mL 1000 mL/hr documented in this encounter Active and Recently Administered Medications Times are shown in CDT. Scheduled Medication Order 12/10/2019 12/11/2019 12/12/2019 HYDROcodone-acetaminophen (NORCO) 5-325 mg per tablet 1 tablet (COMPLETED) 1 tablet, oral, Once, On Mon12/12/19 at 0340, For 1 dose, Indications: Pain 0344 (Given - Provid er: Anaya Long RN) ketorolac (TORADOL) injection 30 mg (COMPLETED) 30 mg, intravenous, Once, On Mon12/11/19 at 2251, For 1 dose, For Adult IV push, administer over 15 seconds 2314 (Given - Provider: Anaya Long RN) lidocaine-EPINEPHrine (XYLOCAINE with EPI) 1 %-1:100,000 injection 10 mL (COMPLETED) 10 mL, infiltration, Once, On Mon12/12/19 at 0310, For 1 dose, Indications: Administration of Local Anesthesia 0327 (Given - Provid er: Anaya Long RN) LORazepam (ATIVAN) injection 0.5 mg (COMPLETED) 0.5 mg, intravenous, Once, On Mon12/12/19 at 0125, For 1 dose, For IV administration, dilute with equal volume of 0.9% sodium chloride. Do not exceed a rate of 2 mg/minute 0136 (Given - Provid er: Anaya Long RN) sodium chloride 0.9% bolus 1,000 mL (COMPLETED) 1,000 mL, intravenous, at 1,000 mL/hr, Administer over 1 Hours, Once, On Mon12/11/19 at 2251, For 1 dose 2314 (New Bag - Provider: Anaya Long, RN) 0137 (Stopped - Provider: Meka Salomon, TRAY) documented in this encounter Orders Medications Ordered That [place] ht Not Have Been Administered Count Last Ordered Date First Ordered Date fentaNYL (SUBLIMAZE) preserv ative free injection 100 mcg 1 12/12/2019 IV Count Last Ordered Date First Orde red Date INSERT PERIPHERAL IV 1 12/11/2019 documented in this encounter Care Teams Oncology Research Rn Relationship Specialty Start Date End Date Venecia Turner MD [address] [address] [facility] [address] [place] [address] PCP - General 12/11/19 07/21/21 Jarred Roy MD [address] [facility] [address] [place] [address] 01/30/19 documented as of this encounter
--- OUTSIDE RECORDS SUMMARY | 2024-05-10 20:18 | XMS_ITS | Encounter Summary ---
Author Organization [facility] Healthcare Address [address] [place] [address] Care Team Providers Care Marketing Information Manager Name Role Phone Jarred Roy MD Unavailable [phone] Venecia Turner MD Primary Care Provider [phone] Elma Echevarria NP Unavailable Reason for Visit * Reason Comments Abscess Encounter Details Date Type Department Care Team (Late st Contact Info) Description 12/14/2019 10:23 AM CDT - 12/16/2019 4:25 PM CDT Hospital Encounter [facility] [address] [place] [address] Miranda Carmichael MD [address] [address] Aleksandra Reece MD [address] [place] [address] [address] [place] [address] [address] Nadeen Joshua MD [address] [place] [address] [address] [place], [place] [address] [address] David Mosquera Jr., MD [address] [place] [address] [place] [address] 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); Abscess Discharge Disposition: Discharge to home or self care Social History Tobacco Use Types Packs/Day Years Used Date Smoking Tobacco: Never Smokeless Tobacco: Never Alcohol Use Standard Drinks/Week Comments No 0 (1 standard drink = 0.6 oz pur e alcohol) Comments No Sex and Gender Information Value Date Recorded Sex Assigned at Not on file Legal Sex Female 11:28 PM [employer] Gender Identity Not on file Sexual Orientation Not on file documented as of this encounter Last Filed Vital Signs Vital Sign Reading Time Taken Comments Blood Pressure 136/55 12/16/2019 3:22 PM CDT Pulse 63 12/16/2019 3:22 PM CDT Temperature 36.1 ??C (97 ??F) 12/16/2019 3:22 PM CDT Respiratory Rate 16 12/16/2019 3:22 PM CDT Oxygen Saturation 97% 12/16/2019 3:22 PM CDT Inhaled Oxygen Concentration - - Weight 108.9 kg (240 lb) 12/14/2019 10:33 AM CDT Height 165.1 cm (5' 5 ) 12/14/2019 10:33 AM CDT Body Mass Index 39.94 12/14/2019 10:33 AM CDT documented in this encounter Discharge Diagnoses Diagnosis Cutaneous abscess of perineum - CUTANEOUS ABSCESS OF PERINEUM Contact with and (suspected) exposure to other viral communicable diseases - CONTACT WITH AND (SUSPECTED) EXPOSURE TO OTHER VIRAL COMMUNICABLE DISEASES Morbid (severe) obesity due to excess calories (HCC) - MORBID (SEVERE) OBESITY DUE TO EXCESS CALORIES Fever, unspecified - FEVER, UNSPECIFIED Body mass index (bmi) 39.0-39.9, adult - BODY MASS INDEX (BMI) 39.0-39.9, ADULT documented in this encounter Discharge Summaries * David Mosquera Jr., MD - 12/16/2019 2:32 PM CDT [place], [place] Hospitalist Discharge Summary Patient Name: Jamal Licona Patient : 2000 Room/Bed: [id number] Admission Date/Time: 12/14/2019 10:23 AM Discharge date: 12/16/2019 Admitting Physician: Aleksandra Reece MD Discharge Physician: David Mosquera Jr., MD Consults: Treatment Team: Consulting Physician: Bryson Clark MD Discharge Diagnoses: Principal Problem: Abscess Active Problems: Morbid obesity (CMS/[facility]) Hospital Course: For full details of presentation including detailed history, past medical, surgical, social, family history and detailed ROS, as well as detailed exam and labs at time of presentation, please see the History and Physical. 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 and [...] Soft Tissue Mass Result Date: 12/14/2019 Narrative: [facility] Imaging Result Name: JAMAL LICONA OrderingPhys: MIRANDA CARMICHAEL Age: 19 Date of : 2000 Accession Number: [id number] Date of Service: 12/14/2019 Gender: F EXAM [...] signed by Cassandra Arguelles AB: Report ID: [id number] Reading Location: [place] [address] Medications: Your medication list CHANGE how you [...] Surgery, Nurse Practitioner Relationship: Nurse Practitioner 4 [facility] [id number] Next Steps: Follow up Instructions: Please keep follow-up appointment scheduled on 12/18/2019 at 2:15 p.m. Questions: Instructions for follow-up (appointment date and time): Please keep follow-up appointment scheduledon 12/18/2019 at 2:15 p.m. To provider: ELMA ECHEVARRIA Total time spent on day of discharge 35 minutes Signed: David Mosquera Jr., MD Internal Medicine - Hospitalist [facility] - Adult Hospitalist Service 12/16/2019 2:33 [...] questions or concerns following discharge, please call [facility] at [phone]. 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[place]) Potential Discharge Needs Anticipated discharge level of [...] Joshua MD - 12/15/2019 10:02 AM CDT [facility] Hospitalist Service Progress Note Patient Name: Jamal [...] Hold] clindamycin, 900 mg, intravenous, Q8H GRANT [JUL Hold] enoxaparin, 40 mg, subcutaneous, Daily-2100 Continuous Infusions: [...] Soft Tissue Mass Result Date: 12/14/2019 Narrative: [facility] Imaging Result Name: JAMAL LICONA Brina OrderingPhys: MIRANDA CARMICHAEL Age: 19 Date of : 2000 Accession Number: [id number] Date of Service: 12/14/2019 Gender: F EXAM [...] signed by Cassandra Arguelles AB: Report ID: [id number] Reading Location: [id number] Pertinent Labs: I have reviewed the pertinent labs. ASSESSMENT AND PLAN: Patient Active Problem List Diagnosis ??? Elbow pain ??? Ankle pain ??? Acute pain of right foot ??? Closed nondisplaced fracture of medial cuneiform of right foot ??? Abscess ??? Morbid obesity (CMS/[facility]) Assessment Mons pubis abscess Morbid obesity Plan [...] Merrill Joshua MD Internal Medicine - Hospitalist [facility] - Adult Hospitalist Service Voice recognition software Sheology Direct was used dictate and transcribe this document. Epic Kaleidoscope Analyst variances may occur. Despite proofreading, typographical errors may occur 12/15/2019 10:02 AM documented in this encounter H&P Notes * Nadeen Joshua MD - 12/14/2019 4:55 PM CDT [facility] Adult Hospitalist Service History and Physical Patient Name: Jamal Licona Patient : 2000 Age/Sex: 19 y.o. female Room/Bed: [place] [id number]/[id number] Admission Date/Time: 12/14/2019 10:23 AM Date: 12/14/2019 Time: 5:03 PM Primary Care Physician: Venecia Turner MD PCP Office Location: [address] [place] [address] DR LEXIE Gramajo [address] [address] PCP Chief Complaint: Pain and swelling over [...] Soft Tissue Mass Result Date: 12/14/2019 Narrative: [facility] Imaging Result Name: JAMAL LICONA OrderingPhys: MIRANDA CARMICHAEL Age: 19 Date of : 2000 Accession Number: [id number] Date of Service: 12/14/2019 Gender: F EXAM [...] signed by Cassandra Arguelles AB: Report ID: [id number] Reading Location: [id number] ASSESSMENT AND PLAN: Patient Active Problem List [...] more than 2 inpatient hospitalization days MDM: merrill Joshua MD Internal Medicine - Hospitalist [facility] - Adult Hospitalist Service Voice recognition software Sheology Direct was used dictate and transcribe this document. Epic Kaleidoscope Analyst variances may occur. Despite proofreading, typographical errors [...] file Gets together: Not on file Attends judaism service: Not on file Active member of [...] chart review, the patient presented to the [facility] ED on 12/10/2019 for evaluation of the abscess and was prescribed Keflex antibiotics and Bactroban cream.Again per chart review, the patient returned to [facility] ED on 12/11/2019 and had an IND [...] History provided by: Patient and medical records healthcare interpreter used: No Patient History Patient Active Problem [...] signed by Cassandra Arguelles AB: Report ID: [id number] Reading Location: [id number] [facility] ED Course as of Dec 13 1414 Time: 12/13 1128 Comment: Spoke to Dr. Clark who agrees to operate on the patient tomorrow. By: Concepcion Ho Time: 12/13 1137 Comment: Spoke to Dr. 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 PRN tylenol was administered as [...] Results * eGFR (12/16/2019 5:13 AM CDT) [facility] Signature eGFR 143 mL/min/1.7 3 m2 [facility] ([place]) Comment: Interpretive Data Reference Interval Normal ?>/= 90 mL/min/1.73m2 Mildly decreased* ? 60 - 89 mL/min/1.73m2 Mildly to moderately decreased ?45 - 59 mL/min/1.73m2 Moderately to severely decreased ??30 - 44 mL/min/1.73m2 Severely decreased ?15 - 29 mL/min/1.73m2 Kidney Failure ?< 15 ??mL/min/1.73m2 *Relative to young adult level If -Northern Irish multiply value by 1.16. Estimated glomerular filtration [...] MD LAB BLOOD ORDERA BLES Final Result [facility] ([place]) 1 [facility] [place] [address] * Differential, auto (12/16/2019 5:13 AM CDT) Neutrophil abs 2.2 1.7 - 6.5 K/cumm [facility] ([place]) [...] MD LAB BLOOD ORDERA BLES Final Result [facility] ([place]) 1 [facility] Department [place] [address] * (ABNORMAL) Basic metabolic panel (12/16/2019 5:13 AM CDT) Sodium 137 135 - 145 mmol/L [facility] ([place]) Potassium, pl 4.8 3.3 - [...] ([place]) Glucose 97 70 - 199 mg/dL [facility] ([place]) [...] 8.5 - 10.3 mg/dL [facility] ([place]) Blood specimen (specimen) 12/16/2019 5:13 AM CDT 12/16/2019 5:39 AM CDT Bryson Clark MD LAB BLOOD ORDERA BLES Final Result [facility] ([place]) 1 [facility] Department [place] [address] * (ABNORMAL) CBC with auto differential (12/16/2019 [...] MD LAB BLOOD ORDERA BLES Final Result [facility] ([place]) 1 [facility] Department [place] [address] * (ABNORMAL) Aerobic and anaerobic culture and gram stain Abscess Abdominal (12/15/2019 10:19 AM CDT) Direct Specimen Exam Stain: Few polymorphonuclear leukocytes seen. Few Gram Positive Cocci [facility] ([place]) Comment:Testing performed by : [facility], [address] [place] [address]., [address] Report Final Report: Abundant Staphylococcus aureus Methicillin susceptible (MSSA) by penicillin binding protein 2a (PBP2a) testing. (.) [facility] ([place]) Comment:Testing performed by : [facility], [address] [place] [address]., [address] Organism STAPHYLOCOCCUS AUREUS [facility] ([place]) Abscess (Abdominal) 12/15/2019 10:19 AM CDT 12/15/2019 12:44 PM CDT Narrative [facility] ([place]) - 12/18/2019 10:16 AM CDT Mons pubis abscess Testing performed by [facility] Microbiology Laboratory ([phone]) Specimens submitted from normally sterile body sites [...] LAB MICROBIOLOGY - GENERAL ORDERABLES Final Result [facility] ([place]) 1 [facility] Department [place] [address] * COVID-19 Coronavirus RNA Nasopharyngeal (12/14/2019 12:00 PM CDT) COVID-19 RNA Not Detected [facility]ICOLE [facility] ([place]) Comment: Interpretive Data Testing performed at [facility] Molecular Infectious Disease Laboratory. The 2018-Novel Coronavirus Assay (COVID-19) Real Time RT-PCR assay [...] last revised on 2019. Testing performed by: [facility], [address] [facility]., [address] Nasopharyngeal 12/14/2019 12 :00 PM CDT 12/14/2019 9:38 PM CDT Narrative [facility] ([place]) - 12/15/2019 2:26 PM CDT Is the patient experiencing any symptoms consistent with COVID (eg. Fever, cough, shortness of breath)?->No What is the reason for testing?->Screening prior to urgent (<12 hr) procedure, surgery, BMT, immunosuppressive therapy Miranda Carmichael MD LAB MICROBIOLOGY - GENERAL ORDERABLES Final Result [facility] ([place]) 1 [facility] Department [place] [address] * US Abdominal Wall and Lower Back [...] Electronically signed by Cassandra Arguelles AB: AB D: ??12/14/2019 12:25 PM T: ??12/14/2019 12:25 PM Report ID: [id number] Reading Location: ??[id number] Narrative 12/14/2019 12:29 PM CDT [facility] ?Imaging Result Name: JAMAL LICONA ? Ordering Phys: MIRANDA CARMICHAEL Age: 19 ?Date of : 2000 ? Accession Number: [id number] Date of Service: 12/14/2019 ??Gender: F EXAM [...] Procedure Note Cassandra Arguelles MD - 12/14/2019 [facility] Imaging Result Name: JAMAL LICONA Ordering Phys: MIRANDA CARMICHAEL Age: 19 Date of : 2000 Accession Number: [id number] Date of Service: 12/14/2019 Gender: F EXAM [...] signed by Cassandra Arguelles AB: Report ID: [id number] Reading Location: [place] [address] Miranda Carmichael MD IMG US PROCEDURES Final Res ult * (ABNORMAL) Aerobic culture and gram stain Abscess Groin (12/14/2019 10:50 AM CDT) Direct Specimen Exam Stain: No polymorphonuclear leukocytes seen. No organisms seen. [facility] ([place]) Comment:Testing performed by : [facility], [address] [place] [address]., [id number] Report Final Report: Few Staphylococcus aureus Methicillin susceptible (MSSA) by penicillin binding protein 2a (PBP2a) testing. (.) [facility] ([place]) Comment:Testing performed by : [facility], [address] [place] [address]., [address] Organism STAPHYLOCOCCUS AUREUS [facility] ([place]) Abscess (Groin) 12/14/2019 1 0:50 AM CDT 12/14/2019 2:40 PM CDT Narrative [facility] ([place]) - 12/18/2019 1:38 PM CDT Testing performed by [facility]biology Laboratory ([phone]) Specimens submitted from normally sterile body sites [...] MICROBIOLOGY - GENERAL ORDERABLES Final Result [facility] ([place]) 1 [facility] Department [place] [address] * Blood culture Blood Antecubital, left (12/14/2019 10:47 AM CDT) Report Final Report: No growth [facility] ([place]) Comment:Testing performed by : [facility], [address] [place]., [address] Blood specimen (specimen) (Antecubital, left) 12/14/2019 10:47 [...] organism identification may be performed using the Lucibeligene Gram-Positive Blood Culture Assay. This assay detects microbial DNA in positive blood culture broth via hybridization of target DNA to capture oligonucleotides on a microarray. This assay has been cleared by the [place] Food and Drug Administration and its performance characteristics have been verified by the [facility] Microbiology Laboratory. 5. ?For questions about this culture, contact the Microbiology Laboratory at [phone]. Interpretive data was last revised on 2019. Miranda Carmichael MD LAB MICROBIOLOGY - GENERAL ORDERABLES Final Result Performing Organization Address [facility] de Phone Number [facility] ([place]) 1 [facility] [place] [address] * hCG, blood, quantitative (12/14/2019 10:46 AM CDT) hCG, quant <5.0 0.0 - 5.0 IUnits/L [facility] ([place]) Comment: Interpretive Data Non- Female premenopausal: < [...] BLOOD ORDERA BLES Edited Result - Final Performing Organization Address City/[facility]/ZIP Co de Phone Number [facility] ([place]) 1 [facility] [place] [employer] [place] [address] * eGFR (12/14/2019 10:46 AM CDT) Pathologist [facility] eGFR 143 mL/min/1.7 3 m2 [facility] ([place]) Comment: Interpretive Data Reference Interval Normal ?>/= 90 mL/min/1.73m2 Mildly decreased* ? 60 - 89 mL/min/1.73m2 Mildly to moderately decreased ?45 - 59 mL/min/1.73m2 Moderately to severely decreased ??30 - 44 mL/min/1.73m2 Severely decreased ?15 - 29 mL/min/1.73m2 Kidney Failure ?< 15 ??mL/min/1.73m2 *Relative to young adult level If -Northern Irish multiply value by 1.16. Estimated glomerular filtration [...] Carmichael MD LAB BLOOD ORDERABLES Final Result [facility] ([place]) 1 [facility] Department [place] [address] * Differential, auto (12/14/2019 10:46 AM CDT) Neutrophil abs 2.8 1.7 - 6.5 K/cumm [facility] ([place]) Imm gran abs 0.0 0.0 - 0.1 K/cumm [facility] ([place]) Lymphocyte abs 1.6 0.8 - 3.3 K/cumm [facility] ([place]) Monocyte abs 0.5 0.2 - 0.8 K/cumm [facility] ([place]) Eosinophil abs 0.2 0.0 - 0.5 K/cumm [facility] ([place]) Basophil abs 0.0 0.0 - 0.1 K/cumm [facility] ([place]) Neutrophil pct 54.8 % [facility] ([place]) Comment: Interpretive Data Percent cell count reference [...] revised on 2017. Monocyte pct 9.8 % [facility] ([place]) Comment: Interpretive Data [...] LAB BLOOD ORDERABLES Final Result [facility] ([place]) 1 [facility] Department of Laboratories [place], [place] [id number] * Sepsis Lactate w/ Reflex (12/14/2019 10:46 AM CDT) Sepsis Lactate 1.0 0.7 - 2.0 mmol/L [facility] ([place]) Blood specimen (specimen) 12/14/2019 10:46 AM CDT 12/14/2019 10:51 AM CDT Miranda Carmichael MD LAB BLOOD ORDERABLES Final Result [facility] ([place]) 1 [facility] Department [place] [address] * (ABNORMAL) Comprehensive metabolic panel (12/14/2019 10:46 AM CDT) Sodium 135 135 - 145 mmol/L [facility] ([place]) Potassium, pl 4.6 3.3 - 4.9 mmol/L [facility] ([place]) Chloride 102 97 - 110 mmol/L [facility] ([place]) CO2 21(L) 22 - 32 [...] ([place]) ALT 19 7 - 45 Units/L [facility] ([place]) AST 24 10 - 45 Units/L [facility] ([place]) Comment: Hemolysis present. ??Results may be affected. Slightly Hemolyzed Specimen Blood specimen (specimen) 12/14/2019 10:46 AM CDT 12/14/2019 10:51 AM CDT Miranda Carmichael MD LAB BLOOD ORDERABLES Final Result [facility] ([place]) 1 [facility] Department [place] [address] * Blood culture Blood Forearm, right (12/14/2019 10:46 AM CDT) Report Final Report: No growth [facility] ([place]) Comment:Testing performed by : [facility], [address] [facility]., [address] Blood specimen (specimen) (Forearm, right) 12/14/2019 10:46 [...] organism identification may be performed using the AppAddictive Gram-Positive Blood Culture Assay. This assay detects microbial DNA in positive blood culture broth via hybridization of target DNA to capture oligonucleotides on a microarray. This assay has been cleared by the [place] Food and Drug Administration and its performance characteristics have been verified by the [facility] Microbiology Laboratory. 5. ?For questions about this culture, contact the Microbiology Laboratory at [phone]. Interpretive data was last revised on 2019. Miranda Carmichael MD LAB MICROBIOLOGY - GENERAL ORDERABLES Final Result [facility] ([place]) 1 [facility] [place] [address] * (ABNORMAL) CRP (acute phase) (12/14/2019 10:46 AM CDT) [facility] CRP 38.9(H) <=10.0 mg/L [facility] [place] ([place]) Blood specimen (specimen) 12/14/2019 10:46 AM CDT 12/14/2019 10:51 AM CDT Miranda Carmichael MD LAB BLOOD ORDERABLES Final Result [facility] ([place]) 1 [facility] [place] [address] * CBC with auto differential (12/14/2019 10:46 AM CDT) Pathologist [facility] WBC 5.1 3.8 - 9.9 K/cumm CERNER [...] ([place]) MCHC 33.1 32.3 - 35.7 g/dL SAY [facility] ([place]) RDW CV 13.4 11.1 - 14.9 % SAY [facility] ([place]) RDW SD 45.2 35.7 - 48.1 fL SAY [facility] ([place]) NRBC abs 0.00 0.00 - 0.01 K/cumm SAY [facility] ([place]) Blood specimen (specimen) 12/14/2019 10:46 AM CDT 12/14/2019 10:51 AM CDT Miranda Carmichael MD LAB BLOOD ORDERABLES Final Result [facility] ([place]) 1 [facility] [place] [address] documented in this encounter Visit Diagnoses Diagnosis Abscess- Primary Cellulitis and abscess of unspecified site Abscess Cellulitis and abscess of unspecified site Therapy failure due to antibiotic resistance Morbid obesity (HCC) Morbid obesity documented in this encounter Administered Medications Inactive [...] Given 12/14/2019 8:44 PM CDT 650 mg cefepime (MAXIPIME) 2,000 mg in sodium chloride 0.9% 100 mL IVPB 2,000 mg, intravenous, at 200 mL/hr, Administer over 30 Minutes, Every 8 hours scheduled, First dose on 12/14/19 at 1400, Mini-Bag Plus bag, Indications: Skin/Soft Tissue InfectionIndications:Skin/Soft Tissue Infection New Bag 12/16/2019 2:31 PM [...] 9:07 PM CDT 900 mg 100 mL/hr doxycycline (VIBRAMYCIN) tablet/capsule 100 mg 100 mg, oral, 2 times daily (for quinolones,etc), First dose on 12/14/19 at 1400, Give 2 hrs before or 2 hrs after MVI, antacids, or other products containing sucralfate, magnesium, aluminum, iron, or zinc. May be taken without regard to meals., Indications: Skin/Soft Tissue InfectionIndications:Skin/Soft Tissue Infection Given 12/14/2019 2:54 PM CDT 100 mg ibuprofen (ADVIL,MOTRIN) tablet 800 mg 800 mg, oral, 3 times daily PRN, 1st line for pain, fever, headaches, Starting on 12/15/19 at 1336 Given 12/16/2019 5:54 AM CDT 800 mg ketorolac (TORADOL) injection 30 mg 30 mg, intravenous, Once, On 12/14/19 at 1032, For 1 dose, For Adult IV push, administer over 15 seconds Given 12/14/2019 10:46 AM CDT 30 mg ondansetron (ZOFRAN) injection 4 mg 4 mg, intravenous, Administer over 2 Minutes, Every 4 hours PRN, nausea, vomiting, Starting on 12/14/19 at 1705 Given 12/15/2019 10:20 AM CDT 4 mg Given 12/14/2019 5:09 PM CDT 4 mg oxyCODONE (ROXICODONE) tablet 5 mg 5 mg, oral, Every 4 hours PRN, 2nd line for pain, Starting on 12/14/19 at 1328, May administer 1 hour after 1st line agent for uncontrolled or increasing pain., Indications: PainIndications:Pain Given 12/15/2019 12:52 PM CDT 5 mg Given 12/14/2019 2:51 PM CDT 5 mg oxyCODONE (ROXICODONE) tablet 5 mg 5 mg, oral, Every 8 hours PRN, 2nd line for pain, Starting on 12/15/19 at 1345, May administer 1 hour after 1st line agent for uncontrolled or increasing pain., Indications: PainIndications:Pain Given 12/16/2019 12:55 PM CDT 5 mg documented in this encounter Discontinued Medications [...] 1454 (New Bag - Provider: Sumi Foley RN)2043 (New Bag - Provider: Amada Curry, TRAY) 0642 (New Bag - Provider: Amada Curry RN)1001 ([facility] Hold - Provider: Automatic Transfer Provider - Reason: Patient not available)1112 ([facility] Unhold - Provider: Automatic Transfer Provider)1455 (New Bag - Provider: Deanne Serrano, TRAY)202 (New Bag - Provider: Melonie Gordon, TRAY) 0651 (New Bag - Provider: Melonie Gordon, TRAY)1431 (New Bag - Provider: Deanne Serrano, TRAY) clindamycin (CLEOCIN) 900 mg/50 mL in dextrose [...] Transfer Provider)1351 (New Bag - Provider: Deanne Serrano, RN)2107 (New Bag - Provider: Melonie Gordon, RN) 0551 (New Bag - Provider: Melonie Gordon, RN)1513 (New Bag - Provider: Deanne Serrano, RN) doxycycline (VIBRAMYCIN) tablet/capsule 100 mg (CANCELED) 100 mg, oral, 2 times daily (for quinolones,etc), First dose on 12/14/19 at 1400, Give 2 hrs before or 2 hrs after MVI, antacids, or other products containing sucralfate, magnesium, aluminum, iron, or zinc. May be taken without regard to meals., Indications: Skin/Soft Tissue Infection 1454 (Given - Provider: Sumi Foley, TRAY) enoxaparin (LOVENOX) syringe 40 mg 40 mg, subcutaneous, Daily (for enoxaparin), First dose on 12/14/19 at 2100, Indications: Deep Vein Thrombosis Prevention 2039 (Not Given - Provider: Amada Curry, TRAY - Reason: Patient/family refused) 1001 (JUL Hold - Provider: Automatic Transfer Provider - Reason: Patient not available)1112 (JUL Unhold - Provider: Automatic Transfer Provider)2019 (Not Given - Provider: Melonie Gordon, TRAY - Reason: Patient/family refused) ketorolac (TORADOL) injection 30 mg (COMPLETED) 30 mg, intravenous, Once, On 12/14/19 at 1032, For 1 dose, For Adult IV push, administer over 15 seconds 1046 (Given - Provider: Nelsy Ceja, RN) PRN Medication Order 12/14/2019 12/15/2019 12/16/2019 acetaminophen (TYLENOL) tablet 650 mg 650 mg, oral, Every 4 hours PRN, 1st line for pain, Starting on 12/14/19 at 1328, Indications: Pain 2044 (Given - Provider: Amada Curry, TRAY) 1001 (JUL Hold - Provider: Automatic Transfer Provider - Reason: Patient not available)1112 (JUL Unhold - Provider: Automatic Transfer Provider)1116 (Given - Provider: Deanne Serrano, TRAY)2023 (Given [...] at 1705 1709 (Given - Provider: Sumi Foley RN) 1001 [...] Automatic Transfer Provider)1252 (Given - Provider: Deanne Serrano, TRAY) oxyCODONE (ROXICODONE) tablet 5 mg 5 mg, [...] Count Last Ordered Date First Ordered Date bupivacaine-EPINEPHrine (MAR HOME with EPI) 0.5 %-1:200,000 preservative free injection 1 12/15/2019 fentaNYL (SUBLIMAZE) preserv ative free injection 25 mcg 1 12/15/2019 naloxone (NARCAN) 0.4 mg/mL injection 0.04-0.4 mg 1 12/15/2019 ondansetron (ZOFRAN) injection 4 mg 1 12/14 sodium chloride 0.9 % irrigation 1 12/15/19 20 clindamycin (CLEOCIN) 900 mg /50 mL in dextrose 5% (premix) 900 mg 1 12/14/2019 enoxaparin (LOVENOX) syringe 40 mg 1 2019 Diet Count Last Ordered Date First Orde red Date ADULT DISCHARGE DIET 1 12/16/2019 Nursing Count Last Ordered Date First Orde red Date DISCHARGE ACTIVITY 1 12/16/2019 DISCHARGE CALL PROVIDER 3 12/16/2019 FOLLOW UP WITH ESTABLISHED PROVIDER 12/15 ADT Patient Update Count Last Ordered Date Firs t Ordered Date ED IP DECISION TO ADMIT 1 12/14/2019 documented in this encounter Care Teams Marketing Information Manager Relationship Specialty Start Date End Date Venecia Turner MD 4 [facility] [address] LEXIE Gramajo [facility] [address] [place] [address] PCP - General 12/11/19 07/21/21 Jarred Roy MD 2 [facility] [address] [place] [address] 01/30/19 Elma Echevarria NP [address] [place] [address] DR LEXIE Gramajo [facility] [address] [place] [address] Nurse Practitioner General Surgery 12/16/19 documented as of this encounter
--- OUTSIDE RECORDS SUMMARY | 2024-05-10 20:18 | XMS_ITS | Encounter Summary ---
Author Organization [facility] Address [address] [place] [address] Care Team Providers Care Paint Technician Name Role Phone Jarred Roy MD Unavailable [phone] Venecia Turner MD Primary Care Provider [phone] Elma Echevarria NP Unavailable Encounter Details Date Type Department Care Team (Late st Contact Info) Description 12/17/2019 Telephone [facility] 4 [facility] [address] [place] [address] Rehana Casarez Social History Tobacco Use Types Packs/Day Years Used Date Smoking Tobacco: Never Smokeless Tobacco: Never Alcohol Use Standard Drinks/Week Comments No 0 (1 standard drink = 0.6 oz pur e alcohol) Comments No Sex and Gender Information Value Date Recorded Sex Assigned at Not on file 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 Called office asking for a refill on her bactrim. Spoke with he said go ahead and send in a prescription. Please advise documented in this encounter Plan of Treatment Not on file documented as of this encounter Visit Diagnoses Not on filedocumented in this encounter Care Teams Paint Technician Relationship Specialty Start Date End Date Venecia Turner MD [address] [place] [address] DR LEXIE Gramajo [facility] [address] [place] [address] PCP - General 12/11/19 07/21/21 Jarred Roy MD 2 [facility] [address] [place] [address] 01/30/19 EyeElma charles NP [address] [place] [address] DR LEXIE Gramajo [facility] [address] [place] [address] Nurse Practitioner General Surgery 12/16/19 documented as of this encounter
--- OUTSIDE RECORDS SUMMARY | 2024-05-10 20:18 | XMS_ITS | Encounter Summary ---
Author Organization [facility] Healthcare Address [address] [place] [address] Care Team Providers Care Dispensing Optician Apprentice Name Role Phone Jarred Roy MD Unavailable No, Physician Primary Care Provider [phone] Reason for Visit * Reason Comments Abscess Encounter Details Date Type Department Care Team (Late st Contact Info) Description 12/10/2019 12:06 PM CDT - 12/10/2019 2:00 PM CDT Emergency [facility] Emergency Department [address] [place] [address] Folliculitis (Primary Dx); Cellulitis, unspecified cellulitis site Discharge Disposition: Discharge to home or self care Social History Tobacco Use Types Packs/Day Years Used Date Smoking Tobacco: Never Smokeless Tobacco: Never Alcohol Use Standard Drinks/Week Comments No 0 (1 standard drink = 0.6 oz pur e alcohol) Comments No Sex and Gender Information Value Date Recorded Sex Assigned at Not on file 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 Gender Identity Not on file Sexual Orientation Not on file documented as of this encounter Last Filed Vital Signs Vital Sign Reading Time Taken Comments Blood Pressure 120/85 12/10/2019 12:09 PM CDT Pulse 85 12/10/2019 12:09 PM CDT Temperature 37.2 ??C (98.9 ??F) 12/10/2019 12:09 PM C DT Respiratory Rate 18 12/10/2019 12:09 PM CDT Oxygen Saturation 99% 12/10/2019 12:09 PM CDT Inhaled Oxygen Concentration - - Weight 108.9 kg (240 lb) 12/10/2019 12:09 PM CDT Height 165.1 cm (5' 5 ) 12/10/2019 12:09 PM CDT Body Mass Index 39.94 12/10/2019 12:09 PM CDT documented in this encounter Discharge Diagnoses Diagnosis Follicular disorder, unspecified - FOLLICULAR DISORDER, UNSPECIFIED Cellulitis of abdominal wall - CELLULITIS OF ABDOMINAL WALL Cellulitis and abscess of trunk documented in this encounter Discharge Instructions * Discharge Instructions* Jeffy Vásquez NP - 12/10/2019 1:43 PM CDT Please take all antibiotics as prescribed, and follow up with a primary care physician back home the [facility] referral line for an outpatient appointment. Please use mupirocin ointment, and return to the ED for development of fever, chills, shortness of breath, difficulty breathing, or increasing swelling, to the groin area. Thank you for choosing [facility] * Attachments The following attachments cannot be sent through Care Everywhere. * Cellulitis (AfterCare(R) Instructions(ER/ED)) (Kazakh) documented in this encounter Medications at Time [...] times a day with meals 06/12/2017 0 ibuprofen (ADVIL,MOTRIN) 600 mg tablet Take [...] ML PO QID PRF COUGH 04/07/2019 0 SUMAtriptan (IMITREX) 50 mg tablet Take 50 mg by mouth 0 topiramate (TOPAMAX) 25 mg tablet Take 50 mg by mouth 2 times daily 06/12/2017 0 topiramate (TOPAMAX) 25 mg tablet Take 50 mg by mouth nightly 07/12/2019 2 documented as of this encounter Ordered Prescriptions Prescription Sig Dispense Quantity Refills Last Filled Start Date End Date mupirocin (BACTROBAN) 2 % cream Apply topically 3 (three) times a day 15 g 12/10/2019 0 cephalexin (KEFLEX) 500 mg capsule Take 1 capsule (500 mg total) by mouth 4 (four) times a day for 10 days 40 capsule 12/10/2019 0 documented in this encounter Discharge Disposition Disposition Code Departure Means Destination Discharge to home or self care documented in this encounter ED Notes * Jeffy Vásquez, [facility] - 12/10/2019 1:34 PM CDT HPI Chief Complaint Patient presents with ??? Abscess 19-year-old female patient with a history of a tonsillectomy, adenoidectomy reports a 2 day history, of a suprapubic abscess , that she noticed after shaving. Patient denies generalized body aches, denies chest pain, shortness of breath, fever, chills, difficulty breathing. Patient denies drainagefrom the abscessed area. Patient states that she has been attempting to work with increasing amounts of pain, also has been applying warm compresses for comfort. Denies prior treatment, denies any [id number] medication usage. Patient History Patient Active Problem List Diagnosis Date Noted ??? Acute pain of right foot 06/03/2019 ??? Closed nondisplaced fracture of medial cuneiform of right foot 06/03/2019 ??? Elbow pain 02/06/2015 Class: Chronic ??? Ankle pain 06/17/2014 Class: Temporary Past Medical History: Diagnosis Date ??? HX OTHER MEDICAL T&A in 2011; Comments: MIRANDA 05/20/2014 - ??? HX OTHER MEDICAL elbow fracture 02-06-15.; Comments: MIRNADA 02/09/2015 - Past Surgical History: Procedure Laterality [...] for chills and fever. HENT: Negative for ear pain and sore [...] are negative. Physical Exam ED Triage Vitals [12/10/19 1209] Temp Pulse Resp BP SpO2 37.2 ??C (98.9 ??F) 85 18 120/85 99 % Temp src Heart Rate Source Patient Position BP Location FiO2 (%) Oral -- -- -- -- Physical Exam Vitals signs and nursing note reviewed. Constitutional: General: She is not in acute distress. Appearance: Normal appearance. She is well-developed. She is not ill-appearing, toxic-appearing or diaphoretic. HENT: Head: Normocephalic and atraumatic. Right Ear: Tympanic membrane, ear canal and external ear normal. Left Ear: Tympanic membrane, ear canal and external ear normal. Nose: Nose normal. Mouth/Throat: Lips: [place]. Mouth: Mucous membranes are moist. Pharynx: No pharyngeal swelling, oropharyngeal exudate, posterior oropharyngeal erythema or uvula swelling. Tonsils: No tonsillar exudate or tonsillar abscesses. Eyes: General: Lids are normal. Extraocular Movements: Extraocular movements intact. Conjunctiva/sclera: Conjunctivae normal. Pupils: Pupils are equal, round, and reactive to light. Neck: Musculoskeletal: Full passive range of motion without pain, normal range of motion and neck supple.Normal range of motion. No edema, erythema, neck rigidity, crepitus, injury, pain with movement, torticollis, spinous process tenderness or muscular tenderness. Trachea: Trachea and phonation normal. Meningeal: Brudzinski's sign and Kernig's sign absent. Cardiovascular: Rate and Rhythm: Normal rate and regular rhythm. Heart sounds: Normal heart sounds, S1 normal and S2 normal. No murmur. Pulmonary: Effort: Pulmonary effort is normal. No respiratory distress. Breath sounds: Normal breath sounds. Abdominal: General: Bowel sounds are normal. There is no distension. Palpations: Abdomen is soft. There is no mass. Tenderness: There is no abdominal tenderness. There is no right CVA tenderness, left CVA tenderness, guarding or rebound. Hernia: No hernia is present. Musculoskeletal: Normal range of motion. Skin: General: Skin is warm and dry. Capillary Refill: Capillary refill takes less than 2 seconds. Comments: Approximate 0.5 cm scabbed area, to pubic hair region, at the level of the symphysis pubis, mild surrounding cellulitis, approximate 1 cm area of induration, with no fluctuance, no drainage, no bruising, no swelling. No associated inguinal lymphadenopathy Neurological: General: No focal deficit present. Mental Status: She is alert and oriented to person, place, and time. Psychiatric: Mood and Affect: Mood normal. Behavior: Behavior normal. Behavior is cooperative. Thought Content: Thought content normal. Judgment: Judgment normal. MDM Medical Decision Making Differential Diagnosis or Management Options: Differential diagnosis includes cellulitis, folliculitis, abrasion, laceration, abscess. ED Course as of Dec 10 825 Time: 12/10 1343 Comment: Voice recognition software [employer] was used to dictate and transcribe this document. Consumer Marketing Analyst variances may occur. Despite proofreading, typographical errors may occur. By: Jeffy Vásquez NP Time: 12/10 1343 Comment: Discussed ED findings and plans for discharge with pt who understands and agrees with plan. Pt has been advised to return to the ED with any new or worsening symptoms. Pt has no further complaints. All questions addressed at this time. By: Jeffy Vásquez NP Time: 12/09 1345 Comment: Patient notified return to the ED for development of fever, chills, shortness of breath, chest pain, difficulty breathing, increasing redness to the site, increasing pain out of proportion or development of a soft abscess that looks like it needs to be drained. Patient agreed with plan of care and discharge planning. Agrees to follow-up with a primary care physician for re- evaluation. Patient referred to the [facility] referral line. By: Jeffy Vásquez NP Final diagnoses: Folliculitis Cellulitis, unspecified cellulitis site Jeffy Vásquez NP 12/11/19 08 Cosigned by Farzad Baca MD at 12/11/2019 8:01 PM CDT * Nelsy Ceja RN - 12/10/2019 12:09 PM CDT Pt to er 19 c/o redness and swelling to left groin. Pt states looks like ingrown hair. Pt states nodrainage, there is a hole though. Pt c/o warmth to area. Denies fevers. Pt c/o pain. documented in this encounter Plan of Treatment Not on file documented as of this encounter Visit Diagnoses Diagnosis Folliculitis- Primary Other specified disease of hair and hair follicles Cellulitis, unspecified cellulitis site documented in this encounter Care Teams Dispensing Optician Apprentice Relationship Specialty Start Date End Date No, Physician PCP - General 05/26/19 12/10/19 Jarred Roy MD [address] [facility] [address] 01/30/19 documented as of this encounter
--- OUTSIDE RECORDS SUMMARY | 2024-05-10 20:18 | XMS_ITS | Encounter Summary ---
Author Organization [facility] Address [address] [place] [address] Care Team Providers Care Escape Wheel Tooth Cutter Name Role Phone Jarred Roy MD Unavailable [phone] Venecia Turner MD Primary Care Provider [phone] Elma Echevarria NP Unavailable Reason for Visit * Reason Comments Other Arm Redness Encounter Details Date Type Department Care Team (Late st Contact Info) Description 03/11/2020 11:34 AM DECISION ANALYST - 03/11/2020 1:52 PM DECISION ANALYST Emergency [facility] Emergency Department [address] [place] [address] Rasheeda Fuentes MD [address] [place] [address] Cellulitis of left upper arm (Primary Dx); Left upper arm pain Discharge Disposition: Discharge to home or self care Social History Tobacco Use Types Packs/Day Years Used Date Smoking Tobacco: Never Smokeless Tobacco: Never Alcohol Use Standard Drinks/Week Comments No 0 (1 standard drink = 0.6 oz pur e alcohol) Comments Unknown Sex and Gender Information Value Date Recorded Sex Assigned at Not on file Legal Sex Female 11:28 PM DECISION ANALYST Gender Identity Not on file Sexual Orientation Not on file documented as of this encounter Last Filed Vital Signs Vital Sign Reading Time Taken Comments Blood Pressure - - Pulse 97 03/11/2020 9:45 AM DECISION ANALYST Temperature 36.7 ??C (98 ??F) 03/11/2020 9:45 AM DECISION ANALYST Respiratory Rate 18 03/11/2020 9:45 AM DECISION ANALYST Oxygen Saturation 100% 03/11/2020 9:45 AM DECISION ANALYST Inhaled Oxygen Concentration - - Weight 104.3 kg (230 lb) 03/11/2020 9:45 AM DECISION ANALYST Height 165.1 cm (5' 5 ) 03/11/2020 9:45 AM DECISION ANALYST Body Mass Index 38.27 03/11/2020 9:45 AM DECISION ANALYST documented in this encounter Discharge Diagnoses Diagnosis Cellulitis of left upper limb - CELLULITIS OF LEFT UPPER LIMB Pain in left upper arm - PAIN IN LEFT UPPER ARM documented in this encounter Discharge Instructions * Discharge Instructions* Poornima Saha NP - 03/11/2020 1:26 PM DECISION ANALYST Use over the counter Motrin per manufacturers guidelines for relief of pain and fever. Follow up with Dr. Turner and Dr. Clark without fail. Do not drive while taking [place] as it may cause drowsiness and sedation. Return to ER for pain not relieved by [place], increase in redness, fever, worsen condition or other concerns. SION ANALYST * Attachments The following attachments cannot be sent through Care Everywhere. * Arm Pain (AfterCare(R) Instructions(ER/ED)) (Bruneian) * Cellulitis (AfterCare(R) Instructions(ER/ED)) ([place]uneian) documented in this encounter Medications at Time of Discharge cephalexin (KEFLEX) 500 mg capsule Take 1 capsule (500 mg total) by mouth 4 (four) times a day for 10 days 40 capsule 03/11/2020 0 sulfamethoxazole -trimethoprim (BACTRIM DS) 800-160 mg per tablet Take 1 tablet by mouth 2 (two) times a day for 10 days smx-tmp DS (BACTRIM) 800-160 mg tabs 20 tablet 03/11/2020 0 bacitracin (bacitracin) 500 unit/gram ointment Apply [...] Pain Take 1 tablet by mouth every 4 (four) hours as needed for pain 12 tablet 03/11/2020 2 cephalexin (KEFLEX) 500 mg capsule Take 1 capsule (500 mg total) by mouth 4 (four) times a day for 10 days 40 capsule 03/11/2020 0 sulfamethoxazole-t rimethoprim (BACTRIM DS) 800-160 mg per tablet Take 1 tablet by mouth 2 (two) times a day for 10 days smx-tmp DS (BACTRIM) 800-160 mg tabs 20 tablet 03/11/2020 0 documented in this encounter Discharge Disposition Disposition Code Departure Means Destination Comment s Discharge to home or self care seen and treated by BUILDING CONSULTANT documented in this encounter ED Notes * Poornima Saha, [facility] - 03/11/2020 11:39 AM CST Images from the original note were not included. HPI Chief Complaint Patient presents with ??? Other Arm Redness 20 y.o. year old female with PMHX T&A in 2011; elbow fracture 02-06-15.; ; accompanied by self presents to ED with c/o Left Arm Redness Denies chills, nausea, vomiting, diarrhea, SOB, CP, numbness, tingling. swelling to left upper arm. Redness and swelling noted under upper arm. Pt reports fever. Pt has not taken OTC medication for relief of pain and fever. Denies injury. Pt has pain with movement. Denies other complaint at this time. Patient History: Patient Active Problem List Diagnosis Date Noted ??? Abscess 12/14/2019 ??? Morbid obesity (CMS/HCC) 12/14/2019 ??? Acute pain of right foot 06/03/2019 ??? Closed nondisplaced fracture of medial cuneiform of right foot 06/03/2019 ??? Elbow pain 02/06/2015 Class: Chronic ??? Ankle pain 06/17/2014 Class: Temporary Past Medical History: Diagnosis Date ??? HX OTHER MEDICAL T&A in 2011; Comments: JGONZALEZ 05/20/2014 - ??? HX OTHER MEDICAL elbow [...] Positive for fever. Negative for chills. HENT: Negative. Negative for ear pain and sore throat. Eyes: Negative. Negative for pain and visual disturbance. Respiratory: Negative. Negative for cough and shortness of breath. Cardiovascular: Negative. Negative for chest pain and palpitations. Gastrointestinal: Negative. Negative for abdominal pain and vomiting. Genitourinary: Negative. Negative for dysuria and hematuria. Musculoskeletal: Negative for arthralgias and back pain. Left upper arm pain Skin: Positive for color change. Negative for rash. Neurological: Negative. Negative for seizures and syncope. Psychiatric/Behavioral: Negative. All other systems reviewed and are negative. Physical Exam ED Triage Vitals [03/11/20 0945] Temp Pulse Resp BP SpO2 36.7 ??C (98 ??F) 97 18 -- 100 % Temp src Heart Rate Source Patient Position BP Location FiO2 (%) Temporal -- -- -- -- Physical Exam Vitals signs and nursing note reviewed. Constitutional: General: She is awake. She is not in acute distress. Appearance: Normal appearance. She is well-developed. She is not ill-appearing, toxic-appearing or diaphoretic. HENT: Head: Normocephalic and atraumatic. Right Ear: Hearing and external ear normal. Left Ear: Hearing and external ear normal. Nose: Nose normal. Right Sinus: No maxillary sinus tenderness or frontal sinus tenderness. Left Sinus: No maxillary sinus tenderness or frontal sinus tenderness. Mouth/Throat: Lips: [place]. Mouth: Mucous membranes are moist. Pharynx: Oropharynx is clear. Uvula midline. Eyes: General: Lids are normal. Conjunctiva/sclera: Conjunctivae normal. Neck: Musculoskeletal: Full passive range of motion without pain, normal range of motion and neck supple. Trachea: Trachea and phonation normal. Cardiovascular: Rate and Rhythm: Normal rate and regular rhythm. Pulses: Normal pulses. No decreased pulses. Heart sounds: Normal heart sounds. No murmur. Pulmonary: Effort: Pulmonary effort is normal. No respiratory distress. Breath sounds: Normal breath sounds and air entry. No stridor, decreased air movement or transmitted upper airway sounds. No decreased breath sounds, wheezing, rhonchi or rales. Abdominal: General: Bowel sounds are normal. There is no distension. Palpations: Abdomen is soft. Tenderness: There is no abdominal tenderness. There is no guarding. Musculoskeletal: Left upper arm: She exhibits tenderness. Arms: Comments: Left upper arm- approximate 6cm oblong area of erythema to medial left upper arm with 3 cm area of induration. NO area of fluctuance. + warmth. No streaking or drainage. Tenderness with touch and movement. Distal sensation intact, capillary refill less than 2 seconds, radial pulse 2+ Skin: General: Skin is warm and dry. Neurological: Mental Status: She is alert, oriented to person, place, and time and easily aroused. Psychiatric: Behavior: Behavior is cooperative. [facility] ED Course as of Mar 11 1944 Time: 03/11 1323 Comment: Discussed lab work and x-ray results with patient. Advised to use Tylenol and Motrin for relief of fever and pain, to follow up with PMD for further evaluation and treatment. Pt verbalized understanding. All questions answered at this time. Pt was seen, treated and released by provider. By: Poornima Saha NP Final diagnoses: Cellulitis of left upper arm Left upper arm pain Poornima Saah NP 03/11/201943 Cosigned by Sommer Leblanc MD at 03/19/2020 2:33 PM DECISION ANALYST SION ANALYST SION ANALYST Associated attestation - Sommer Leblanc MD - 03/19/2020 2:33 PM DECISION ANALYST ED Attestation Based on the medical record the care appears appropriate. * Alyson Hightower RN - 03/11/2020 9:43 AM CST Pt presents to ER with c/o swelling to left upper arm. Redness and swelling noted under upper arm. Pt reports fever. SION ANALYST documented in this encounter Plan of Treatment Not on file documented as of this encounter Procedures Procedure Name Priority Date/Time Associated Diagnosis Comments XR HUMERUS LEFT 2 OR MORE VIEWS ED 03/11/2020 12:24 PM DECISION ANALYST BLOOD CULTURE STAT 03/11/2020 12:03 PM DECISION ANALYST SEPSIS LACTATE WITH REFLEX STAT 03/11/2020 11:59 AM DECISION ANALYST EGFR STAT 03/11/2020 11:59 AM DECISION ANALYST DIFFERENTIAL AUTO STAT 03/11/2020 11: 59 AM DECISION ANALYST CBC WITH AUTO DIFFERENTIAL STAT 03/11/2020 11:59 AM DECISION ANALYST BLOOD CULTURE STAT 03/11/2020 11:59 AM DECISION ANALYST COMPREHENSIVE METABOLIC PANEL STAT 03/11/2020 11:59 AM DECISION ANALYST POCT HCG, URINE Routine 03/11/2020 9:54 AM DECISION ANALYST documented in this encounter Results * XR Humerus Left 2 or More Views (03/11/2020 12:24 PM DECISION ANALYST) Anatomical Region Laterality Modality Upper Extremities, Upper Arm Left Com puted Radiography 03/11/2020 1:00 PM DECISION ANALYST Impressions 03/11/2020 1:01 PM DECISION ANALYST Soft tissue edema. ??No acute osseous abnormality. Electronically signed by: Jude Patel M.D. Narrative 03/11/2020 1:01 PM DECISION ANALYST EXAMINATION: XR HUMERUS LEFT 2 OR MORE VIEWS ORDERING HEALTHCARE PROVIDER: POORNIMA SAHA HISTORY: cellulitis left upper arm. No known injury. ??Woke up and arm is red. ?? TECHNIQUE: Left humerus 2 views COMPARISON: ??None FINDINGS: BONES/JOINTS: The bone mineralization is normal. There is no acute fracture or dislocation. SOFT TISSUES: Soft tissue edema in the medial arm. ??No radiopaque foreign body. OTHER: ?? No other acute findings. Procedure Note Jude Patel MD - 03/11/2020 EXAMINATION: XR HUMERUS LEFT 2 OR MORE VIEWS ORDERING HEALTHCARE PROVIDER: POORNIMA SAHA HISTORY: cellulitis left upper arm. No known injury. Woke up and arm is red. TECHNIQUE: Left humerus 2 views COMPARISON: None FINDINGS: BONES/JOINTS: The bone mineralization is normal. There is no acute fracture or dislocation. SOFT TISSUES: Soft tissue edema in the medial arm. No radiopaque foreign body. OTHER: No other acute findings. IMPRESSION: Soft tissue edema. No acute osseous abnormality. Electronically signed by: Jude Patel M.D. us Poornima Saha BUILDING CONSULTANT IMG XR PROCEDURES Final Res ult * Blood culture Blood Peripheral (03/11/2020 12:03 PM DECISION ANALYST) Report Final Report: No growth [facility] ([place]) Comment:Testing performed by : [facility], [address] [facility], [place]., [address] Blood specimen (specimen) (Peripheral) 03/11/2020 12:03 PM DECISION ANALYST 03/11/2020 2:27 PM DECISION ANALYST Narrative [facility] ([place]) - 03/15/2020 4:00 PM DECISION ANALYST From a different site than #1. Draw Blood cultures before administration of Antibiotics 1. ?Blood cultures are incubated for 4 [...] organism identification may be performed using the [employer] Gram-Positive Blood Culture Assay. This assay detects microbial DNA in positive blood culture broth via hybridization of target DNA to capture oligonucleotides on a microarray. This assay has been cleared by the [place] Food and Drug Administration and its performance characteristics have been verified by the [facility] Microbiology Laboratory. 5. ?For questions about this culture, contact the Microbiology Laboratory at [phone]. Interpretive data was last revised on 2019. Poornima Saha NP LAB MICROBIOLOGY - GENERAL ORDERABLES Final Result [facility] ([place]) [address] [facility] [place] [address] * eGFR (03/11/2020 11:59 AM DECISION ANALYST) eGFR 140 mL/min/1.7 3 m2 [facility] ([place]) Comment: Interpretive Data Reference Interval Normal ?>/= 90 mL/min/1.73m2 Mildly decreased* ? 60 - 89 mL/min/1.73m2 Mildly to moderately decreased ?45 - 59 mL/min/1.73m2 Moderately to severely decreased ??30 - 44 mL/min/1.73m2 Severely decreased ?15 - 29 mL/min/1.73m2 Kidney Failure ?< 15 ??mL/min/1.73m2 *Relative to young adult level If -[place] multiply value by 1.16. Estimated glomerular filtration [...] was last reviewed 2015. Blood specimen (specimen) 03/11/2020 11:59 AM DECISION ANALYST 03/11/2020 12:07 PM DECISION ANALYST Poornima Saha NP LAB BLOOD ORDERABLES Final Result [facility] ([place]) [address] [facility] [place] [address] * Differential, auto (03/11/2020 11:59 AM DECISION ANALYST) Neutrophil abs 6.0 1.7 - 6.5 K/cumm [facility] ([place]) Imm gran abs 0.0 0.0 - 0.1 K/cumm [facility] ([place]) Lymphocyte abs 1.1 0.8 - 3.3 K/cumm [facility] ([place]) Monocyte abs 0.8 0.2 - 0.8 K/cumm [facility] ([place]) Eosinophil abs 0.1 0.0 - 0.5 K/cumm [facility] ([place]) Basophil abs 0.0 0.0 - 0.1 K/cumm [facility] ([place]) Neutrophil pct 75.0 % [facility] ([place]) Comment: Interpretive [...] was last revised on 2017. Lymphocyte pct 13.6 % [facility] ([place]) Comment: Interpretive Data Percent cell count reference ranges are not reported, since discordance with absolute values may lead to misinterpretation of CBC data. Current Interpretive Data was last revised on 2017. Monocyte pct 10.4 % [facility] ([place]) Comment: Interpretive Data Percent cell count reference ranges are not reported, since discordance with absolute values may lead to misinterpretation of CBC data. Current Interpretive Data was last revised on 2017. Eosinophil pct 0.6 % [facility] ([place]) Comment: Interpretive Data Percent cell count reference ranges are not reported, since discordance with absolute values may lead to misinterpretation of CBC data. Current Interpretive Data was last revised on 2017. Basophil pct 0.2 % [facility] ([place]) Comment: Interpretive Data Percent cell count reference ranges are not reported, since discordance with absolute values may lead to misinterpretation of CBC data. Current Interpretive Data was last revised on 2017. Blood specimen (specimen) 03/11/2020 11:59 AM DECISION ANALYST 03/11/2020 12:07 PM DECISION ANALYST us Poornima Saha NP LAB BLOOD ORDERABLES Final Result [facility] ([place]) 1 [facility] [place] [address] * (ABNORMAL) Sepsis Lactate w/ Reflex (03/11/2020 11:59 AM DECISION ANALYST) Sepsis Lactate 0.6(L) 0.7 - 2.0 mmol/L [facility] ([place]) Blood specimen (specimen) 03/11/2020 11:59 AM DECISION ANALYST 03/11/2020 12:07 PM DECISION ANALYST Poornima Saha NP LAB BLOOD ORDERABLES Final Result [facility] ([place]) 1 [facility] [place] [address] * Blood culture Blood Peripheral (03/11/2020 11:59 AM DECISION ANALYST) Report Final Report: No growth [facility] ([place]) Comment:Testing performed by : [facility], 1 [place]., [address] Blood specimen (specimen) (Peripheral) 03/11/2020 11:59 AM DECISION ANALYST 03/11/2020 2:26 PM DECISION ANALYST Narrative [facility] ([place]) - 03/15/2020 4:00 PM DECISION ANALYST Received only aerobic blood culture bottle Draw Blood cultures before administration of Antibiotics 1. ?Blood cultures are incubated for 4 [...] organism identification may be performed using the [employer] Gram-Positive Blood Culture Assay. This assay detects microbial DNA in positive blood culture broth via hybridization of target DNA to capture oligonucleotides on a microarray. This assay has been cleared by the [place] Food and Drug Administration and its performance characteristics have been verified by the [facility]. 5. ?For questions about this culture, contact the Microbiology Laboratory at [phone]. Interpretive data was last revised on 2019. us Poornima Saha NP LAB MICROBIOLOGY - GENERAL ORDERABLES Final Result [facility] ([place]) 1 [facility] [place] [address] * (ABNORMAL) Comprehensive metabolic panel (03/11/2020 11:59 AM DECISION ANALYST) Sodium 133(L) 135 - 145 mmol/L [facility] ([place]) Potassium, pl 4.1 3.3 - 4.9 mmol/L [facility] ([place]) Chloride 102 97 - 110 mmol/L [facility] ([place]) CO2 23 22 - 32 mmol/L [facility] ([place]) Anion gap 8 2 - 15 mmol/L [facility] ([place]) BUN 8 8 - 25 mg/dL [facility] ([place]) Creatinine 0.48(L) 0.60 - 1.10 mg/dL [facility] ([place]) Glucose 86 70 - 199 mg/dL [facility] ([place]) [...] 10.3 mg/dL [facility] ([place]) Bilirubin, total 0.8 0.1 - 1.2 mg/dL [facility] ([place]) Protein, pl 6.9 6.5 - 8.5 g/dL [facility] ([place]) Albumin 4.2 3.5 - 5.0 g/dL [facility] ([place]) Alk phos 58 40 - 130 Units/L [facility] ([place]) ALT 16 7 - 45 Units/L [facility] ([place]) AST 17 10 - 45 Units/L [facility] ([place]) Blood specimen (specimen) 03/11/2020 11:59 AM DECISION ANALYST 03/11/2020 12:07 PM DECISION ANALYST us Poornima Saha BUILDING CONSULTANT LAB BLOOD ORDERABLES Final Result [facility] ([place]) 1 [facility] [place] [address] * CBC with auto differential (03/11/2020 11:59 AM DECISION ANALYST) WBC 8.0 3.8 - 9.9 K/cumm [facility] ([place]) Hgb 12.8 11.9 - 15.5 g/dL [facility] ([place]) Hct 38.7 35.6 - 45.5 % [facility] ([place]) Plt 234 150 - 400 K/cumm [facility] ([place]) MPV 9.2 9.1 - 12.3 fL [facility] ([place]) RBC 4.15 3.90 - 5.20 M/cumm [facility] ([place]) MCV 93.3 81.3 - 96.4 fL [facility] ([place]) MCH 30.8 27.1 - 33.3 pg [facility] ([place]) MCHC 33.1 32.3 - 35.7 g/dL [facility] ([place]) RDW CV 13.2 11.1 - 14.9 % [facility] ([place]) RDW SD 45.0 35.7 - 48.1 fL [facility] ([place]) NRBC abs 0.00 0.00 - 0.01 K/cumm [facility] ([place]) Blood specimen (specimen) 03/11/2020 11:59 AM DECISION ANALYST 03/11/2020 12:07 PM DECISION ANALYST us Poornima Saha BUILDING CONSULTANT LAB BLOOD ORDERABLES Final Result [facility] ([place]) 1 [facility] [place] [address] * POCT hCG, urine (03/11/2020 9:54 AM DECISION ANALYST) HCG, ur, POC Negative Lot Number [id number] QC Backgroud Clear Acceptable QC Control Line Acceptable Urine 03/11/2020 9:54 AM DECISION ANALYST Sommer Leblanc MD POINT OF CARE TEST ORDERA BLES Final Result documented in this encounter Visit Diagnoses Diagnosis Cellulitis of left upper arm- Primary Left upper arm pain documented in this encounter Administered Medications Inactive Administered Medications - up to 3 most recent administrations Medication Order MAR Action Action Date Dose Rate Site acetaminophen (TYLENOL) tablet 650 mg 650 mg, oral, Once, On Mon03/11/20 at 1142, For 1 dose Given 03/11/2020 12:02 PM DECISION ANALYST 650 mg documented in this encounter Active and Recently Administered Medications Times are shown in DECISION ANALYST. Scheduled Medication Order 03/09/2020 03/10/2020 03/11/2020 acetaminophen (TYLENOL) tablet 650 mg (COMPLETED) 650 mg, oral, Once, On Mon03/11/20 at 1142, For 1 dose 1202 (Given - Provid er: Nelly Amaya RN) documented in this encounter Care Teams Escape Wheel Tooth Cutter Relationship Specialty Start Date End Date Venecia Turner MD [address] [place] [address] DR LEXIE Gramajo [facility] [address] [place] [address] PCP - General 12/11/19 07/21/21 Jarred Roy MD 2 [facility] [address] [place] [address] 01/30/19 Elma Echevarria NP [address] [place] [address] DR LEXIE Gramajo [facility] [address] [place] [address] Nurse Practitioner General Surgery 12/16/19 documented as of this encounter
--- OUTSIDE RECORDS SUMMARY | 2024-05-10 20:19 | XMS_ITS | Encounter Summary ---
Author Organization [facility] Healthcare Address [address] [place] [address] Care Team Providers Care Livestock Ranch Hand Name Role Phone Jarred Roy MD Primary Care Provider Reason for Visit * Reason Comments Back Pain Encounter Details Date Type Department Care Team (Late st Contact Info) Description 09/16/2017 11:59 AM CDT - 09/16/2017 2:50 PM CDT Emergency [facility] Emergency Department [address] [place] [address] Annamaria Solis MD [address] [place] [address] Left-sided thoracic back pain, unspecified chronicity (Primary Dx) Discharge Disposition: Discharge to home or self care Social History Tobacco Use Types Packs/Day Years Used Date Smoking Tobacco: Never Smokeless Tobacco: Never Alcohol Use Standard Drinks/Week Comments No 0 (1 standard drink = 0.6 oz pur e alcohol) Comments Unknown Sex and Gender Information Value Date Recorded Sex Assigned at Not on file 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 Gender Identity Not on file Sexual Orientation Not on file documented as of this encounter Last Filed Vital Signs Vital Sign Reading Time Taken Comments Blood Pressure 94/77 09/16/2017 2:40 PM CDT Pulse 78 09/16/2017 2:40 PM CDT Temperature 37.1 ??C (98.7 ??F) 09/16/2017 2:40 PM CD T Respiratory Rate 18 09/16/2017 2:40 PM CDT Oxygen Saturation 97% 09/16/2017 2:40 PM CDT Inhaled Oxygen Concentration - - Weight 113.4 kg (250 lb) 09/16/2017 12:20 PM CDT Height 165.1 cm (5' 5 ) 09/16/2017 12:20 PM CDT Body Mass Index 41.6 09/16/2017 12:20 PM CDT Body Mass Index Percentile 99.31% 09/16/2017 12: 20 PM CDT Growth Chart: [facility] (Girls, 2- 20 Years) documented in this encounter Medications at Time of Discharge ferrous sulfate 325 mg (65 mg of elemental iron) tablet Take 325 mg by mouth 3 (three) times a day with meals 06/12/2017 12/14/2019 ibuprofen (ADVIL,MOTRIN) 800 mg tablet Take 1 tablet (800 mg total) by mouth every 8 (eight) hours as needed for pain. Take with food. 30 tablet 09/16/2017 12/18/2017 topiramate (TOPAMAX) 25 mg tablet Take 50 mg by mouth 2 times daily 06/12/2017 12/14/2019 documented as of this encounter Ordered Prescriptions Prescription Sig Dispense Quantity Refills Last Filled Start Date End Date ibuprofen (ADVIL,MOTRIN) 800 mg tablet Take 1 tablet (800 mg total) by mouth every 8 (eight) hours as needed for pain. Take with food. 30 tablet 09/16/2017 12/18/2017 documented in this encounter Discharge Disposition Disposition Code Departure Means Destination Discharge to home or self care documented in this encounter ED Notes * Jayden Mcclain RN - 09/16/2017 12:20 PM CDT Pt arrives with C/O upper back pain x1 day. Pt states pain started yesterday and is present when she takes deep breaths. She states she has not done any strenuous activity or otherwise strained her muscles. She is currently sitting in NAD. * Annamaria Solis MD - 09/16/2017 12:11 PM CDTAssociated Order(s): ECG 12-LEAD HPI Chief Complaint Patient presents with ??? Back Pain 12:13 PM - Mary Licona is a 17 y.o. female patient presenting to the ED complaining of constant, left sided, lower back pain that started yesterday while she was at school. She reports pain isexacerbated with bending. She notes no recent injury to her back. The patient also complains of dyspnea. She notes pain with inspiration and movement. She notes taking Topamax on a daily for migraines and an iron supplement. She denies fever, chills, cough and urinary symptoms. She denies being on control and possible . There are no other complaints at this time. Patient History Patient Active Problem List Diagnosis Date Noted ??? Elbow pain 02/06/2015 Class: Chronic ??? [...] and well at age 43.; Social History Substance Use Topics ??? Smoking status: Never Smoker ??? Smokeless tobacco: Never Used ??? Alcohol use No Social History Social History Narrative ??? No narrative on file Review of Systems Review of Systems Constitutional: Negative for chills, fatigue and fever. HENT: Negative for congestion, ear pain, rhinorrhea, sneezing and sore throat. Respiratory: Positive for shortness of breath. Negative for cough and wheezing. Cardiovascular: Negative for chest pain and palpitations. Gastrointestinal: Negative for abdominal pain, constipation, diarrhea, nausea and vomiting. Genitourinary: Negative for dysuria and frequency. Musculoskeletal: Positive for back pain (left sided, lower). Negative for arthralgias, myalgias andneck pain. Skin: Negative for color change, pallor, rash and wound. Neurological: Negative for dizziness, syncope, weakness, light-headedness and headaches. All other systems reviewed and are negative. Physical Exam ED Triage Vitals Temp Pulse Resp BP SpO2 -- -- -- -- -- Temp src Heart Rate Source Patient Position BP Location FiO2 (%) -- -- -- -- -- Physical Exam Constitutional: She is oriented to person, place, and time. She appears well- developed and well-nourished. No distress. Pt is an obese, pleasant young woman in no acute distress. HENT: Head: Normocephalic and atraumatic. Mouth/Throat: Oropharynx is clear and moist. Pharynx clear. Eyes: Conjunctivae and EOM are normal. Right eye exhibits no discharge. Left eye exhibits no discharge. Neck: Normal range of motion. Neck supple. No JVD present. Cardiovascular: Normal rate, regular rhythm, normal heart sounds and intact distal pulses. Exam reveals no gallop. No murmur heard. Pulmonary/Chest: Effort normal and breath sounds normal. No respiratory distress. She has no wheezes. She has no rales. Lungs clear bilaterally. Abdominal: Soft. There is tenderness (upper). There is no rebound and no guarding. Tenderness to palpation of left lower chest and upper flank region. Upper abdominal tenderness to palpation. Musculoskeletal: Normal range of motion. She exhibits no edema, tenderness or deformity. Neurological: She is alert and oriented to person, place, and time. Skin: Skin is warm and dry. Capillary refill takes less than 2 seconds. No rash noted. No erythema.No pallor. No peripheral edema. Psychiatric: She has a normal mood and affect. Her behavior is normal. Nursing note and vitals reviewed. ED Course & MDM ED Course as of September 16 1609 Sat September 16, 2017 1426 No lab abnormalities or XR abnormalities that will describe her symptoms. White blood count normal and urinalysis shows epithelial cells, this is most likely indicating a contaminated substance.No evidence of UTI. Discharged to home to take medications to pain and avoid heavy lifting, as it is probably musculoskeletal. Pt should f/u with PCP in one week. [JJ] ED Course User Index [JJ] Shaka Brock Labs Reviewed URINALYSIS AND REFLEX TO MICROSCOPIC AND CULTURE - Abnormal Result Value Color, ur Yellow Clarity, ur Cloudy (*) Specific gravity, ur 1.014 pH, urine 7.0 Protein, ur ql Negative Glucose, ur ql Negative Ketones, ur Negative Bilirubin, ur Negative Blood, ur Negative Urobilinogen, ur 0.2 Nitrite, ur Negative Leukocyte esterase, ur 2+ (*) Narrative: Urine pH is affected by diet, medications, systemic acid-base disturbances, and renal tubular function. pH may affect urinary stone formation. For example, urine pH below 6.0 may help reduce the tendency for calcium phosphate stones and pH greater than 6.0 may reduce the tendency for uric acid stone formation. Source: [facility] [employer].Last revised 05-18-2017 COMPREHENSIVE METABOLIC PANEL - Abnormal Sodium 143 Potassium 3.6 CO2 23 BUN 11 Glucose 71 Creatinine 0.47 Calcium 9.7 Chloride 104 Albumin 4.5 AST 14 ALT 15 Alk phos 82 Bilirubin 0.6 Protein, pl 7.3 Anion Gap 16 (*) Narrative: D-DIMER, QUANTITATIVE - Abnormal D-dimer <150 (*) Narrative: URINALYSIS, MICROSCOPIC ONLY - Abnormal WBC, ur 0-5 RBC, ur 0-5 Epithelial cells, squamous, ur 6-10 (*) Bacteria, ur 2+ (*) Hyaline casts, ur 1-5 Narrative: CBC WITH AUTO DIFFERENTIAL WBC 7.2 RBC 4.43 Hgb 13.6 Hct 40.1 MCV 90.5 MCH 30.7 MCHC 33.9 RDW CV 12.7 RDW SD 42.2 Plt 269 MPV 9.4 NRBC Abs 0.00 Narrative: DIFFERENTIAL AUTO Neutrophil absolute 5.1 Immature granulocyte absolute 0.0 Lymphocytes absolute 1.3 Monocyte absolute 0.7 Eosinophils absolute 0.2 Basophils, abs 0.0 Neutrophils 70.0 Immature granulocytes 0.1 Lymphocytes 17.5 Monocytes 9.2 Eosinophils 2.6 Basophils 0.6 Narrative: EGFR GFR >60 Narrative: XR Chest Pa Lateral 2 Vw Final Result NO ACTIVE DISEASE. Electronically signed by: Albert Dhaliwal M.D. BP 94/77 Pulse 78 Temp 37.1 ??C (98.7 ??F) (Oral) Resp 18 Ht 165.1 cm (5' 5 ) Wt 113.4 kg(250 lb) SpO2 97% BMI 41.60 kg/m?? ECG 12 lead Date/Time: 09/16/2017 2:57 PM Performed by: ANNAMARIA SOLIS Authorized by: ANNAMARIA SOLIS Comments: Sinus rhythm rate 69. No acute ST or T wave changes. MDM Left-sided thoracic back pain, unspecified chronicity 12:36 PM: This note is prepared by Shaka Brock, acting as a scribe for Dr. Annamaria oSlis MD.I electronically signed this note at 12:36 PM on 09/16/2017. I, Dr. Annamaria Solis MD, have personally performed the services described in the documentation ,reviewed the documentation, as recorded by the scribe in my presence, and it accurately and completely records my words and actions. Annamaria Solis MD 09/16/17 1610 documented in this encounter Plan of Treatment Pending Results Name Type Priority Associated Diagnoses Date /Time ECG 12 lead ECG STAT 09/16/2017 4: 10 PM CDT documented as of this encounter Procedures Procedure Name Priority Date/Time Associated Diagnosis Comments ECG 12-LEAD STAT 09/16/2017 4:10 PM CDT EGFR STAT 09/16/2017 1:02 PM CDT DIFFERENTIAL AUTO STAT 09/16/2017 1:0 2 PM CDT CBC WITH AUTO DIFFERENTIAL STAT 09/16/2017 1:02 PM CDT D-DIMER, QUANTITATIVE STAT 09/16/2017 1:02 PM CDT COMPREHENSIVE METABOLIC PANEL STAT 09/16/2017 1:02 PM CDT URINALYSIS AND REFLEX TO MICROSCOPIC AND CULTURE STAT 09/16/2017 12:56 PM CDT URINALYSIS, MICROSCOPIC ONLY STAT 09/16/2017 12:56 PM CDT XR CHEST PA LATERAL 2 VIEWS ED 09/16/2017 12:44 PM CDT DISCHARGE LABORATORY CUMULATIVE REPORT 09/16/2017 12:00 AM CDT documented in this encounter Results * eGFR (09/16/2017 1:02 PM CDT) eGFR >60 mL/min/1.7 3 m2 [facility] ([place]) Comment: Interpretive Data Reference Interval Normal ?>/= 90 mL/min/1.73m2 Mildly decreased* ? 60 - 89 mL/min/1.73m2 Mildly to moderately decreased ?45 - 59 mL/min/1.73m2 Moderately to severely decreased ??30 - 44 mL/min/1.73m2 Severely decreased ?15 - 29 mL/min/1.73m2 Kidney Failure ?< 15 ??mL/min/1.73m2 *Relative to young adult level If -[place] multiply value by 1.16. Estimated glomerular filtration [...] was last reviewed 2015. Blood specimen (specimen) 09/16/2017 1:02 PM CDT 09/16/2017 1:09 PM CDT Narrative [facility] ([place]) - 09/16/2017 1:48 PM CDT us Annamaria Solis MD LAB BLOOD ORDERABLES Final Result [facility] ([place]) 1 [facility] Department [place] [address] * Differential, auto (09/16/2017 1:02 PM CDT) Neutrophil abs 5.1 1.7 - 6.5 K/cumm [facility] ([place]) Imm gran abs 0.0 0.0 - 0.1 K/cumm [facility] ([place]) Lymphocyte abs 1.3 0.8 - 3.3 K/cumm [facility] ([place]) Monocyte abs 0.7 0.2 - 0.8 K/cumm [facility] ([place]) Eosinophil abs 0.2 0.0 - 0.5 K/cumm [facility] ([place]) Basophil abs 0.0 0.0 - 0.1 K/cumm [facility] ([place]) Neutrophil pct 70.0 % [facility] ([place]) Comment: Interpretive Data Percent cell count reference ranges are not reported, since discordance with absolute values may lead to misinterpretation of CBC data. Current Interpretive Data was last revised on 2017. Imm gran pct 0.1 % [facility] ([place]) Comment: Interpretive Data Percent cell count reference ranges are not reported, since discordance with absolute values may lead to misinterpretation of CBC data. Current Interpretive Data was last revised on 2017. Lymphocyte pct 17.5 % [facility] ([place]) Comment: Interpretive Data Percent cell count reference ranges are not reported, since discordance with absolute values may lead to misinterpretation of CBC data. Current Interpretive Data was last revised on 2017. Monocyte pct 9.2 % [facility] ([place]) Comment: Interpretive Data Percent cell count reference ranges are not reported, since discordance with absolute values may lead to misinterpretation of CBC data. Current Interpretive Data was last revised on 2017. Eosinophil pct 2.6 % [facility] ([place]) Comment: Interpretive Data Percent cell count reference ranges are not reported, since discordance with absolute values may lead to misinterpretation of CBC data. Current Interpretive Data was last revised on 2017. Basophil pct 0.6 % [facility] ([place]) Comment: Interpretive Data Percent cell count reference ranges are not reported, since discordance with absolute values may lead to misinterpretation of CBC data. Current Interpretive Data was last revised on 2017. Blood specimen (specimen) 09/16/2017 1:02 PM CDT 09/16/2017 1:09 PM CDT Narrative [facility] ([place]) - 09/16/2017 1:13 PM CDT Annamaria Solis MD LAB BLOOD ORDERABLES Final Result Performing Organization Address [facility] de Phone Number [facility] ([place]) 1 [facility] [employer] [address] * (ABNORMAL) D-dimer, quantitative (09/16/2017 1:02 PM CDT) D-dimer <150(L) 150 - 230 ng/mL D-DU [facility] ([place]) Comment: Interpretive Data This D-dimer test is approved by the FDA to exclude suspected PE and DVT in outpatients when the result is <230 ng/mL in conjunction with a pre-test probability score of low or moderate using the Wells criteria. Current Interpretive Data was last revised on 2014. Blood specimen (specimen) 09/16/2017 1:02 PM CDT 09/16/2017 1:09 PM CDT Narrative [facility] ([place]) - 09/16/2017 1:41 PM CDT Annamaria Solis MD LAB BLOOD ORDERABLES Final Result Performing Organization Address [facility] Co de Phone Number [facility] ([place]) 1 [facility] [place] [address] * (ABNORMAL) Comprehensive metabolic panel (09/16/2017 1:02 PM CDT) Pathologist [facility] Sodium 143 135 - 145 mmol/L [facility] ([place]) Potassium, pl 3.6 3.3 - 4.9 mmol/L [facility] ([place]) CO2 23 22 - 32 mmol/L [facility] ([place]) BUN 11 8 - 25 mg/dL [facility] ([place]) Glucose 71 70 - 199 mg/dL [facility] ([place]) [...] Current interpretive data was last revised 2017. Creatinine 0.47 0.40 - 1.00 mg/dL [facility] ([place]) Calcium 9.7 8.5 - 10.3 mg/dL [facility] ([place]) Chloride 104 97 - 110 mmol/L [facility] ([place]) Albumin 4.5 3.5 - 5.0 g/dL [facility] ([place]) AST 14 10 - 45 Units/L [facility] ([place]) ALT 15 7 - 45 Units/L [facility] ([place]) Alk phos 82 70 - 260 Units/L [facility] ([place]) Bilirubin, total 0.6 0.1 - 1.2 mg/dL [facility] ([place]) Protein, pl 7.3 6.5 - 8.5 g/dL [facility] ([place]) Anion gap 16(H) 2 - 15 mmol/L [facility] ([place]) Blood specimen (specimen) 09/16/2017 1:02 PM CDT 09/16/2017 1:09 PM CDT Narrative [facility] ([place]) - 09/16/2017 1:48 PM CDT us Annamaria Solis MD LAB BLOOD ORDERABLES Final Result [facility] ([place]) 1 [facility] Department [place] [address] * CBC with auto differential (09/16/2017 1:02 PM CDT) WBC 7.2 3.8 - 9.9 K/cumm [facility] ([place]) RBC 4.43 3.90 - 5.20 M/cumm [facility] ([place]) Hgb 13.6 11.9 - 15.5 g/dL [facility] ([place]) Hct 40.1 35.6 - 45.5 % [facility] ([place]) MCV 90.5 81.3 - 96.4 fL [facility] ([place]) MCH 30.7 27.1 - 33.3 pg [facility] ([place]) MCHC 33.9 32.3 - 35.7 g/dL [facility] ([place]) RDW CV 12.7 11.1 - 14.9 % [facility] ([place]) RDW SD 42.2 35.7 - 48.1 fL [facility] ([place]) Plt 269 150 - 400 K/cumm [facility] ([place]) MPV 9.4 9.1 - 12.3 fL [facility] ([place]) NRBC abs 0.00 0.00 - 0.01 K/cumm [facility] ([place]) Blood specimen (specimen) 09/16/2017 1:02 PM CDT 09/16/2017 1:09 PM CDT Narrative [facility] ([place]) - 09/16/2017 1:13 PM CDT us Annamaria Solis MD LAB BLOOD ORDERABLES Final Result [facility] ([place]) 1 [facility] Department [place] [address] * (ABNORMAL) Urinalysis, microscopic only (09/16/2017 12:56 PM CDT) WBC, ur 0-5 0 - 5 /HPF [facility] ([place]) RBC, ur 0-5 0 - 5 /HPF [facility] ([place]) Epithelial cells, squamous, ur 6-10(A) 0 - 5 /HPF [facility] ([place]) Comment:Suggestive of contam ination. Consider recollection by clean catch. Bacteria, ur 2+(A) [facility] ([place]) Hyaline casts, ur 1-5 0 - 10 /LPF [facility] ([place]) Urine 09/16/2017 12:5 6 PM CDT 09/16/2017 12:58 PM CDT Narrative [facility] ([place]) - 09/16/2017 1:23 PM CDT Annamaria Solis MD LAB URINE ORDERABLES Final Result [facility] ([place]) 1 [facility] Department [place] [address] * (ABNORMAL) Urinalysis reflex to microscopic and culture Urine (09/16/2017 12:56 PM CDT) Color, ur Yellow Yellow [facility] ([place]) Clarity, ur Cloudy(A) Clear [facility] ([place]) Specific gravity, ur 1.014 1.010 - 1.025 [facility] ([place]) pH, urine 7.0 [facility] ([place]) Protein, ur ql Negative Negative [facility] ([place]) Glucose, ur ql Negative Negative [facility] ([place]) Ketones, ur Negative Negative [facility] ([place]) Bilirubin, ur Negative Negative [facility] ([place]) Blood, ur Negative Negative [facility] ([place]) Urobilinogen, ur 0.2 mg/dL [facility] ([place]) Nitrite, ur Negative Negative [facility] ([place]) Leukocyte esterase, ur 2+(A) Negative [facility] ([place]) Urine 09/16/2017 12:5 6 PM CDT 09/16/2017 12:58 PM CDT Narrative [facility] ([place]) - 09/16/2017 1:23 PM CDT ?? Urine pH is affected by diet, medications, systemic acid-base disturbances, and renal tubular function. ??pH may affect urinary stone formation. ??For example, urine pH below 6.0 may help reduce the tendency for calcium phosphate stones and pH greater than 6.0 may reduce the tendency for uric acid stone formation. Source: [employer]. Last revised 05-18-2017 Annamaria Solis MD LAB MICROBIOLOGY - GENERAL ORDERABLES Final Result [facility] [place]) 4 [facility] Department [place] [address] * XR Chest Pa Lateral 2 Vw (09/16/2017 12:44 PM CDT) Anatomical Region Laterality Modality Body, Chest N/A Computed Radiogr aphy Impressions 09/16/2017 12:54 PM CDT NO ACTIVE DISEASE. Electronically signed by: Albert Dhaliwal M.D. Narrative 09/16/2017 12:54 PM CDT XR CHEST PA LATERAL 2 VIEWS HISTORY: Dyspnea. COMPARISON: None available. FINDINGS: Heart size is normal. ??Lungs are clear. Procedure Note Albert Dhaliwal MD - 09/16/2017 XR CHEST PA LATERAL 2 VIEWS HISTORY: Dyspnea. COMPARISON: None available. FINDINGS: Heart size is normal. Lungs are clear. IMPRESSION: NO ACTIVE DISEASE. Electronically signed by: Albert Dhaliwal M.D. Annamaria Solis MD IMG XR PROCEDURES Final Re sult * DISCHARGE LABORATORY CUMULATIVE REPORT (09/16/2017 12:00 AM CDT) Narrative 09/16/2017 12:00 AM CDT Ordered by an unspecified provider. [facility] Provider LAB BLOOD ORDERABLES Dilcia l Result documented in this encounter Visit Diagnoses Diagnosis Left-sided thoracic back pain, unspecified chronicity- Primary documented in this encounter Administered Medications Inactive Administered Medications - up to 3 most recent administrations Medication Order MAR Action Action Date Dose Rate Site ibuprofen (ADVIL,MOTRIN) tablet 800 mg 800 mg, oral, Once, On 09/16/17 at 1230, For 1 dose Given 09/16/2017 12:32 PM CDT 800 mg documented in this encounter Active and Recently Administered Medications Times are shown in CDT. Scheduled Medication Order 09/14/2017 09/15/2017 09/16/2017 ibuprofen (ADVIL,MOTRIN) tablet 800 mg (COMPLETED) 800 mg, oral, Once, On 09/16/17 at 1230, For 1 dose 1232 (Given - Provid er: Jayden Mcclain RN) documented in this encounter Care Teams Livestock Ranch Hand Relationship Specialty Start Date End Date Jarred Roy MD [address] [address] PCP - General 09/16/17 01/29/19 documented as of this encounter
--- OUTSIDE RECORDS SUMMARY | 2024-05-10 20:19 | XMS_ITS | Encounter Summary ---
Author Organization [facility] Healthcare Address [address] [place] [address] Care Team Providers Care Core Shaper Name Role Phone Unavailable Primary Care Provider Unavailabl e Encounter Details Date Type Department Care Team (Late st Contact Info) Description 04/15/2010 4:00 PM [employer] - 04/15/2010 4:35 PM [facility] Hospital Encounter [facility]ESSIC[facility] Naseem Andino MD [address] 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
--- OUTSIDE RECORDS SUMMARY | 2024-05-10 20:19 | XMS_ITS | Encounter Summary ---
Author Organization [facility] Healthcare Address [address] [place] [address] Care Team Providers Care Avionics Engineer Name Role Phone Unavailable Primary Care Provider Unavailabl e Encounter Details Date Type Department Care Team (Late st Contact Info) Description 09/09/2009 4:00 PM CDT - 09/09/2009 4:55 PM CDT Hospital Encounter [facility] Naseem Madsen MD [address] 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
--- OUTSIDE RECORDS SUMMARY | 2024-05-10 20:19 | XMS_ITS | Encounter Summary ---
Author Organization [facility] Healthcare Address [address] [place] [address] Care Team Providers Care Preschool Teacher Aide Name Role Phone Unavailable Primary Care Provider Unavailabl e Encounter Details Date Type Department Care Team (Late st Contact Info) Description 10/24/2007 2:55 PM CDT - 10/24/2007 4:00 PM CDT Hospital Encounter [facility] JESSICACONNaseem Gonsalves MD [address] [facility] [address] [place] [address] Estela Saenz MD [address] [facility] [address] [place] [address] Social History Tobacco Use Types Packs/Day Years Used Date Smoking Tobacco: Never Assessed Comments Unknown Sex and Gender Information Value Date Recorded Sex Assigned at Not on file 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
--- OUTSIDE RECORDS SUMMARY | 2024-05-10 20:19 | XMS_ITS | Encounter Summary ---
Author Organization 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
--- OUTSIDE RECORDS SUMMARY | 2024-05-10 20:19 | XMS_ITS | Encounter Summary ---
Author Organization [facility] Healthcare Address [address] [place] [address] Care Team Providers Care Guidance Secretary Name Role Phone Estela Saenz MD Primary Care Provider [phone] Encounter Details Date Type Department Care Team (Late st Contact Info) Description 02/02/2015 6:45 PM CDT - 02/02/2015 10:01 PM CDT Hospital Encounter [facility] Brady Wolf MD [address] [place] [id number] Closed fracture of head of radius; Other fall; Accidents occurring in other specified places Social History Tobacco Use Types Packs/Day Years Used Date Smoking Tobacco: Never Assessed Comments Unknown Sex and Gender Information Value Date Recorded Sex Assigned at Not on file Legal 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 ??Left elbow pain. RESULT: Four views of the left elbow obtained. A very small linear lucency is seen involving the radial head. ??Possible hairline fracture. ??However, this is a questionable finding. ??No other fracture is seen. ??Joints are maintained. ??No joint effusion is evident. IMPRESSION: 1. POSSIBLE HAIRLINE FRACTURE OF THE RADIAL HEAD. ??CORRELATION WITH POINT TENDERNESS IS RECOMMENDED. ??IF THIS REMAINS CLINICALLY EQUIVOCAL, MR OR BONE SCAN COULD BE CONSIDERED. 02/03/[address] MCFARLAND'S OFFICE AT 11:38AM. Interpreting Physician: ??ALBERT LI M.D. ??Read on: ??Feb 03 2015 ??6:05A Transcribed by: ??radha ?? On: Feb 03 2015 11:37A Approved Electronically by: ??ALBERT LI M.D. ??on: ??Feb 03 2015 ??4:30P Attending: ??BRADY WOLF Requesting: ??NIKIA GORDILLO)CYN Requesting Fax: ??-- Attending Fax: ??-- Attending ID: ??[id number] Requesting ID: ??[id number] Report To 1 ID: ??[id number] Report To 1 Name: ??BRADY WOLF Report To 1 FAX: ??-- NextGen Order #: Procedure Note Provider, MD Kodi - 09/07/2016 XR Elbow Min 3 Views L [id number] Acc#: [id number] DATE OF EXAM: Feb 02 2015 CLINICAL HISTORY: Injury due to fall. Left elbow pain. RESULT: Four views of the left elbow obtained. A very small linear lucency isseen involving the radial head. Possible hairline fracture. However,this is a questionable finding. No other fracture is seen. Joints aremaintained. No joint effusion is evident. IMPRESSION: 1. POSSIBLE HAIRLINE FRACTURE OF THE RADIAL HEAD. CORRELATION WITH POINTTENDERNESS IS RECOMMENDED. IF THIS REMAINS CLINICALLY EQUIVOCAL, MR ORBONE SCAN COULD BE CONSIDERED. 02/03/[address] MCFARLAND'S OFFICE AT11:38AM. Interpreting Physician: ALBERT LI M.D. Read on: Feb 03 2015 6:05A Transcribed by: radha On: Feb 03 2015 11:37A Approved Electronically by: ALBERT LI M.D. on: Feb 03 2015 4:30P Attending: BRADY WOLF Requesting: CYN MONTEJO ([place]) Requesting Fax: -- Attending Fax: -- Attending ID: [id number] Requesting ID: [id number] Report To 1 ID: [id number] Report To 1 Name: BRADY WOLF Report To 1 FAX: -- NextGen Order #: Historical Provider MD HICKS XR PROCEDURES Final R esult documented in this encounter Visit Diagnoses Diagnosis Closed fracture of head of radius Other fall Accidents occurring in other specified places documented in this encounter Care Teams Guidance Secretary Relationship Specialty Start Date End Date Estela Saenz MD [address] [place] [address] PCP - General 05/19/14 09/15/17 documented as of this encounter
--- OUTSIDE RECORDS SUMMARY | 2024-05-10 20:19 | XMS_ITS | Encounter Summary ---
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
--- OUTSIDE RECORDS SUMMARY | 2024-05-10 20:19 | XMS_ITS | Encounter Summary ---
Author Organization [facility] Care Team Providers Care Rails Developer Name Role Phone Jarred Roy MD Unavailable [phone] No, Physician Primary Care Provider [phone] Encounter Details Date Type Department Care Team (Latest Contact Info) Description 05/26/2019 Travel Social History Tobacco Use Types Packs/Day Years Used Date Smoking Tobacco: Never Smokeless Tobacco: Never Alcohol Use Standard Drinks/Week Comments No 0 (1 standard drink = 0.6 oz pur e alcohol) Comments No Sex and Gender Information Value Date Recorded Sex Assigned at Not on file 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
--- OUTSIDE RECORDS SUMMARY | 2024-05-10 20:19 | XMS_ITS | Encounter Summary ---
Author Organization [facility] Address [address] [place] [address] Care Team Providers Care Yard Supervisor Cotton Gin Name Role Phone Jarred Roy MD Unavailable [phone] No, Physician Primary Care Provider [phone] Reason for Referral * Diagnostic Imaging (Routine) - Closed Specialty Diagnoses / Procedures Referred By Loyd medrano Referred To Contact Radiology Diagnoses Acute pain of right foot Closed nondisplaced fracture of medial cuneiform of right foot, initial encounter Procedures MRI Foot Right WO Contrast Gina Klein PA Phone: tel: fax: [address] [address] Referral ID Status Reason Start Date Expiration Date Visits Re quested Visits Authorized [id number] Closed 06/04/2019 07/19/2019 1 1 K MAKER Reason for Visit * Diagnostic Imaging (Routine) - Closed Specialty Diagnoses / Procedures Referred By Loyd medrano Referred To Contact Radiology Diagnoses Acute pain of right foot Closed nondisplaced fracture of medial cuneiform of right foot, initial encounter Procedures MRI Foot Right WO Contrast Gina Klein PA Phone: tel: fax: [address] [address] Referral ID Status Reason Start Date Expiration Date Visits Re quested Visits Authorized [id number] Closed 06/04/2019 07/19/2019 1 1 Encounter Details Date Type Department Care Team (Latest Contact Info) Description 06/07/2019 5:41 PM FLASK MAKER - 06/07/2019 11:59 PM FLASK MAKER Hospital Encounter [facility] [address] [place] [address] David Feliz MD [address] [place] [address] Gina Klein PA [address] [place] [address] Acute pain of right foot; Closed nondisplaced fracture of medial cuneiform of right foot, initial encounter Discharge Disposition: Discharge to home or self care Social History Tobacco Use Types Packs/Day Years Used Date Smoking Tobacco: Never Smokeless Tobacco: Never Alcohol Use Standard Drinks/Week Comments No 0 (1 standard drink = 0.6 oz pur e alcohol) Comments No Sex and Gender Information Value Date Recorded Sex Assigned at Not on file Legal Sex Female 11:28 PM FLASK MAKER Gender Identity Not on file Sexual [...] 2 (two) times a day 02/04/2019 2 ergocalciferol (VITAMIN D) 50,000 unit capsule TAKE [...] DOSEPACK) 4 mg Dosepack FPD 04/07/2019 0 olopatadine (Pazeo) 0.7 % ophthalmic solution [...] by mouth 2 times daily 06/12/2017 0 documented as of this encounter Discharge Disposition Disposition Code Departure Means Destination Discharge to home or self care documented in this encounter Progress Notes * Gina Klein PA - 06/07/2019 6:00 PM CST Called patient with her MRI results of her right foot, which were negative for fracture. I've instructed the patient to protect her weightbearing status as needed, but she may be full weightbearing without the fracture shoe. The patient will follow up in 6 weeks for reevaluation. She may use oral antiinflammatories as needed. She knows to contact our office with any further questions or concerns. K MAKER documented in this encounter Plan of Treatment Not on file documented as of this encounter Procedures Procedure Name Priority Date/Time Associated Diagnosis Comments MRI FOOT RIGHT WO CONTRAST Schedule Routine, Read Routine (OP Routine) 06/07/2019 6:29 PM FLASK MAKER Acute pain of right foot Closed nondisplaced fracture of medial cuneiform of right foot, initial encounter documented in this encounter Results * MRI Foot Right WO Contrast (06/07/2019 6:29 PM FLASK MAKER) Anatomical Region Laterality Modality Lower Extremities Right Magnetic Reson ance 06/07/2019 5:50 PM FLASK MAKER Narrative 06/11/2019 10:06 AM FLASK MAKER [facility] ?Imaging Result Name: JAMAL LICONA ? Ordering Phys: GINA KLEIN Age: 19 ?Date of : 2000 ? Accession Number: [id number] Date of Service: 06/07/2019 ??Gender: F EXAM DESCRIPTION: ??MRI FOOT RIGHT WO CONTRAST REASON FOR STUDY: ??Persistent pain after patient dropped heavy object on top of foot 2 weeks ago. Duration: 2 weeks ago TECHNIQUE: ??Multiplanar, multisequence MRI of the right foot was performed. The field of view includes from the more proximal aspect of the distal phalanx of the great toe proximally through the posterior aspect of the calcaneus COMPARISON: ??05/26/2019 ??Bones: There is normal marrow signal with no evidence of a fracture or stress related change. ??No suspicious marrow infiltration. Articulations: Anatomic alignment. ??No osteoarthritic change. Soft Tissues: There is subcutaneous edema along the dorsal forefoot. Subcutaneous edema is also seen about the medial forefoot more diffusely. ??No focal fluid collection. ??Intrinsic musculature demonstrates normal signal with no evidence of muscular injury or myositis. Tendons: The flexor and extensor tendons are intact. ??No tenosynovitis. Lisfranc Ligament: Intact. Other: No other finding. IMPRESSION: 1. ??No acute fracture or stress related change of the osseous structures. 2. ??There is subcutaneous edema across the dorsal forefoot and extending into the medial forefoot. ??No focal fluid collection. 3. ??No intrinsic muscular injury. THIS IS AN ELECTRONICALLY VERIFIED FINAL REPORT 06/10/2019 9:01 AM - Electronically signed by Mook Arias M.D. MJ: JASON D: ??06/10/2019 9:01 AM T: ??06/10/2019 9:01 AM Report ID: [id number] Reading Location: ??[id number] Procedure Note Mook Arias MD - 06/11/2019 [facility] Imaging Result Name: JAMAL LICONA Brina Ordering Phys: GINA KLEIN Age: 19 Date of : 2000 Accession Number: [id number] Date of Service: 06/07/2019 Gender: F EXAM DESCRIPTION: MRI FOOT RIGHT WO CONTRAST REASON FOR STUDY: Persistent pain after patient dropped heavy object ontop of foot 2 weeks ago. Duration: 2 weeks ago TECHNIQUE: Multiplanar, multisequence MRI of the right foot wasperformed. The field of view includes from the more proximal aspect of the distalphalanx of the great toe proximally through the posterior aspect of thecalcaneus COMPARISON: 05/26/2019 Bones: There is normal marrow signal with no evidence of a fracture or stress related change. No suspicious marrow infiltration. Articulations: Anatomic alignment. No osteoarthritic change. Soft Tissues: There is subcutaneous edema along the dorsal forefoot. Subcutaneous edema is also seen about the medial forefoot more diffusely.No focal fluid collection. Intrinsic musculature demonstrates normal signalwith no evidence of muscular injury or myositis. Tendons: The flexor and extensor tendons are intact. No tenosynovitis. Lisfranc Ligament: Intact. Other: No other finding. IMPRESSION: 1. No acute fracture or stress related change of the osseousstructures. 2. There is subcutaneous edema across the dorsal forefoot and extendinginto the medial forefoot. No focal fluid collection. 3. No intrinsic muscular injury. THIS IS AN ELECTRONICALLY VERIFIED FINAL REPORT 06/10/2019 9:01 AM - Electronically signed by Mook Arias M.D. MJ: JASON Report ID: [id number] Reading Location: [id number] [facility] IM[facility] MRI PROCEDURES Final Result documented in this encounter Visit Diagnoses Diagnosis Acute pain of right foot Closed nondisplaced fracture of medial cuneiform of right foot, initial encounter documented in this encounter Care Teams Yard Supervisor Cotton Gin Relationship Specialty Start Date End Date No, Physician PCP - General 05/26/19 12/10/19 Jarred Roy MD [address] [address] 01/30/19 documented as of this encounter
--- OUTSIDE RECORDS SUMMARY | 2024-05-10 20:19 | XMS_ITS | Encounter Summary ---
Author Organization [facility] Healthcare Address [address] [place] [address] Care Team Providers Care Senior Reservations Agent Name Role Phone Unavailable Primary Care Provider Unavailabl e Encounter Details Date Type Department Care Team (Late st Contact Info) Description 01/02/2014 8:46 AM CDT - 01/02/2014 10:34 AM CDT Hospital Encounter [facility] Farzad Chao MD [address] [facility] [place] [address] [place] [address] Headache Social History Tobacco Use Types Packs/Day Years Used Date Smoking Tobacco: Never Assessed Comments Unknown Sex and Gender Information Value Date Recorded Sex Assigned at Not on file Legal Sex Female 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 Gender Identity Not on file Sexual Orientation Not on file documented as of this encounter Plan of Treatment Not on file documented as of this encounter Procedures Procedure Name Priority Date/Time Associated Diagnosis Comments CT HEAD WO CONTRAST Routine 01/02/2014 1 0:07 AM CDT documented in this encounter Results * CT Head WO Contrast (01/02/2014 10:07 AM CDT) Anatomical Region Laterality Modality Head and Neck N/A Computed Tomogra phy 01/02/2014 10:0 7 AM CDT Narrative 01/02/2014 3:[address] [place] ?[id number] ??Acc#: ??[id number] DATE OF EXAM: ??Jan 02 2014 CLINICAL HISTORY: Very severe headache. RESULT: Helical CT scan of the head obtained noncontrast. No acute intracranial hemorrhage identified. ??No midline shift is noted. Brain stem cisterns are intact. ??Ventricles are normal in size. No mass is seen on this noncontrast study. IMPRESSION: NORMAL NONCONTRAST STUDY. REPORT CALLED TO DR. GARCIA 01/02/14 AT 10:15 AM Interpreting Physician: ??ALBERT LI M.D. ??Read on: ??Jan 02 2014 10:13A Transcribed by: ??[email or web address] ??On: Jan 02 2014 11:47A Approved Electronically by: ??ALBERT LI M.D. ??on: ??Jan 02 2014 ??3:14P Ordering DR: DR FARZAD GARCIA Attending DR: DR VENKAT POND Procedure Note Provider, MD Kdoi - 09/07/[place] [id number] Acc#: [id number] DATE OF EXAM: Jan 02 2014 CLINICAL HISTORY: Very severe headache. RESULT: Helical CT scan of the head obtained noncontrast. No acute intracranialhemorrhage identified. No midline shift is noted. Brain stem cisterns areintact. Ventricles are normal in size. No mass is seen on thisnoncontrast study. IMPRESSION: NORMAL NONCONTRAST STUDY. REPORT CALLED TO DR. GARCIA 01/02/14 AT 10:15AM Interpreting Physician: ALBERT LI M.D. Read on: Jan 02 2014 10:13A Transcribed by: [email or web address] On: Jan 02 2014 11:47A Approved Electronically by: ALBERT LI M.D. on: Jan 02 2014 3:14P Ordering DR: DR FARZAD GARCIA Attending DR: DR VENKAT POND us Historical Provider MD HICKS CT PROCEDURES Final R esult documented in this encounter Visit Diagnoses Diagnosis Headache documented in this encounter
--- OUTSIDE RECORDS SUMMARY | 2024-05-10 20:19 | XMS_ITS | Encounter Summary ---
Author Organization [facility] Healthcare Address [address] [place] [address] Care Team Providers Care Router Setter Name Role Phone Pantera Fields MD Primary Care Provider [phone] Jarred Roy MD Unavailable [phone] Encounter Details Date Type Department Care Team (Late st Contact Info) Description 01/30/2019 8:12 PM CDT - 01/30/2019 9:57 PM CDT Hospital Encounter [address] [address] Unknown, Juan Jones[address] [address] Discharge Disposition: Discharge to home or self care Social History Tobacco Use Types Packs/Day Years Used Date Smoking Tobacco: Never Assessed Comments No Sex and Gender Information Value Date Recorded Sex Assigned at Not on file Legal Sex Female 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 Gender Identity Not on file Sexual Orientation Not on file documented as of this encounter Last Filed Vital Signs Vital Sign Reading Time Taken Comments Blood Pressure 120/80 01/30/2019 8:25 PM CDT Pulse 81 01/30/2019 8:25 PM CDT Temperature 36.4 ??C (97.6 ??F) 01/30/2019 8:25 PM CD T Respiratory Rate - - Oxygen Saturation 100% 01/30/2019 8:25 PM CDT Inhaled Oxygen Concentration - - Weight 123 kg (271 lb 2.7 oz) 01/30/2019 8:25 PM CDT Height 165.1 cm (5' 5 ) 01/30/2019 8:25 PM CDT Body Mass Index 45.12 01/30/2019 8:25 PM CDT documented in this encounter Medications at Time of Discharge azelastine (OPTIVAR) 0.05 % ophthalmic solution INSTIL 1 GTT INTO LEFT EYE BID 10/24/2018 12/14/2019 ergocalciferol (VITAMIN D) 50,000 unit capsule TAKE 1 CAPSULE BY MOUTH 1 TIME A WEEK FOR 6 DOSES 12/31/2018 12/14/2019 ferrous sulfate 325 mg (65 mg of elemental iron) tablet Take 325 mg by mouth 3 (three) times a day with meals 06/12/2017 12/14/2019 ibuprofen (ADVIL,MOTRIN) 600 mg tablet Take 1 tablet (600 mg total) by mouth every 8 (eight) hours as needed for pain. Take with food. 30 tablet 12/18/2017 06/22/2021 olopatadine (Pazeo) 0.7 % ophthalmic solution INT 1 GTT IN OS ONCE A DAY 10/24/2018 12/14/2019 topiramate (TOPAMAX) 25 mg tablet Take 50 mg by mouth 2 times daily 06/12/2017 12/14/2019 documented as of this encounter Discharge Disposition Disposition Code Departure Means Destination Discharge to home or self care documented in this encounter Plan of Treatment Not on file documented as of this encounter Procedures Procedure Name Priority Date/Time Associated Diagnosis Comments XR WRIST RIGHT 3 OR MORE VIEWS 01/30/2019 12:00 AM CDT XR RADIUS ULNA RIGHT 2 VIEWS 01/30/2019 12:00 AM CDT documented in this encounter Results * XR Wrist Right 3 or More Views (01/30/2019 12:00 AM CDT) Anatomical Region Laterality Modality Upper Extremities, Wrist Right Radiogr aphic Imaging 01/30/2019 9:37 PM CDT Narrative 01/30/2019 9:41 PM CDT Patient Name: JAMAL LICONA R ?Ordering Dr: PERSONAL PHYSICIAN,NO ?? D.O.B: 2000 ? Exam Date: 01/30/ ?? 0000 ?? Age: 18 ?Sex: Female ? MR#: [id number] ?? Loc: ? RADIOLOGY REPORT ?? Order #[id number] ?? Radiology ? Wrist RT 3 View Min ? Signed ?? EXAM DESCRIPTION: ??Forearm RT 2 View; Wrist RT 3 View Min ? REASON FOR STUDY: ??Pain. ??Hernandez of car fell on forearm last night. ? TECHNIQUE: ??Frontal and lateral views of the right forearm and AP, lateral and ?? oblique views of the right wrist were obtained. ? COMPARISON: ??None ? FINDINGS: ? BONES: No acute fracture. No suspicious bone lesions. ? SOFT TISSUES: Mild soft tissue swelling proximal forearm. ? OTHER: No other significant finding. ? IMPRESSION: ??No acute osseous abnormality. ? THIS IS AN ELECTRONICALLY VERIFIED FINAL REPORT ?? 01/30/2019 9:41 PM - Electronically signed by Michael Carlos M.D. ?? Michael Carlos M.D. ? DL ?? D: ??01/30/2019 9:41 PM ?? T: ? Report ID: [id number] ?? Reading Location: ??[id number] ? REPORT ELECTRONICALLY SIGNED IN OTHER VENDOR SYSTEM ?? Resulting Agency Comment P Procedure Note Michael Carlos MD - 01/30/2019 Patient Name: JAMAL LICONA Cintia Dr: PERSONAL PHYSICIAN,NO D.O.B: 2000 Exam Date: 01/30/19 0000 Age: 18 Sex: Female MR#: [id number] Loc: [facility]#: [id number] RADIOLOGY REPORT Order #[id number] Radiology Wrist RT 3 View Min Signed EXAM DESCRIPTION: Forearm RT 2 View; Wrist RT 3 View Min REASON FOR STUDY: Pain. Hernandez of car fell on forearm last night. TECHNIQUE: Frontal and lateral views of the right forearm and AP,lateral and oblique views of the right wrist were obtained. COMPARISON: None FINDINGS: BONES: No acute fracture. No suspicious bone lesions. SOFT TISSUES: Mild soft tissue swelling proximal forearm. OTHER: No other significant finding. IMPRESSION: No acute osseous abnormality. THIS IS AN ELECTRONICALLY VERIFIED FINAL REPORT 01/30/2019 9:41 PM - Electronically signed by Michael PRAKASH T: Report ID: [id number] Reading Location: [id number] REPORT ELECTRONICALLY SIGNED IN OTHER VENDOR SYSTEM us Notinfile Unknown IMG XR PROCEDURES Final Result * XR Radius Ulna Right 2 Views (01/30/2019 12:00 AM CDT) Anatomical Region Laterality Modality Upper Extremities, Forearm Right Radio graphic Imaging 01/30/2019 9:37 PM CDT Narrative 01/30/2019 9:41 PM CDT Patient Name: JAMAL LICONA ?Ordering Dr: PERSONAL PHYSICIAN,NO ?? D.O.B: 2000 ? Exam Date: 01/30/19 ?? 0000 ?? Age: 18 ?Sex: Female ? MR#: [id number] ?? Loc: ? RADIOLOGY REPORT ?? Order #[id number] ?? Radiology ? Forearm RT 2 View ? Signed ?? EXAM DESCRIPTION: ??Forearm RT 2 View; Wrist RT 3 View Min ? REASON FOR STUDY: ??Pain. ??Hernandez of car fell on forearm last night. ? TECHNIQUE: ??Frontal and lateral views of the right forearm and AP, lateral and ?? oblique views of the right wrist were obtained. ? COMPARISON: ??None ? FINDINGS: ? BONES: No acute fracture. No suspicious bone lesions. ? SOFT TISSUES: Mild soft tissue swelling proximal forearm. ? OTHER: No other significant finding. ? IMPRESSION: ??No acute osseous abnormality. ? THIS IS AN ELECTRONICALLY VERIFIED FINAL REPORT ?? 01/30/2019 9:41 PM - Electronically signed by Michael Carlos M.D. ?? Michael Carlos M.D. ? DL ?? D: ??01/30/2019 9:41 PM ?? T: ? Report ID: [id number] ?? Reading Location: ??[id number] ? REPORT ELECTRONICALLY SIGNED IN OTHER VENDOR SYSTEM ?? Resulting Agency Comment P Procedure Note Michael Carlos MD - 01/30/2019 Patient Name: JAMAL LICONAarden Dr: PERSONAL PHYSICIAN,NO D.O.B: 2000 Exam Date: 01/30/19 0000 Age: 18 Sex: Female MR#: [id number] Loc: RADIOLOGY REPORT Order #[id number] Radiology Forearm RT 2 View Signed EXAM DESCRIPTION: Forearm RT 2 View; Wrist RT 3 View Min REASON FOR STUDY: Pain. Hernandez of car fell on forearm last night. TECHNIQUE: Frontal and lateral views of the right forearm and AP,lateral and oblique views of the right wrist were obtained. COMPARISON: None FINDINGS: BONES: No acute fracture. No suspicious bone lesions. SOFT TISSUES: Mild soft tissue swelling proximal forearm. OTHER: No other significant finding. IMPRESSION: No acute osseous abnormality. THIS IS AN ELECTRONICALLY VERIFIED FINAL REPORT 01/30/2019 9:41 PM - Electronically signed by Michael PRAKASH T: Report ID: [id number] Reading Location: [id number] REPORT ELECTRONICALLY SIGNED IN OTHER VENDOR SYSTEM us Notinfile Unknown IMG XR PROCEDURES Final Result documented in this encounter Visit Diagnoses Not on filedocumented in this encounter Care Teams Router Setter Relationship Specialty Start Date End Date Pantera Fields MD PCP - General 01/30/19 05/25/19 Jarred Roy MD [address] [address] 01/30/19 documented as of this encounter
--- OUTSIDE RECORDS SUMMARY | 2024-05-10 20:19 | XMS_ITS | Encounter Summary ---
Author Organization [facility] Healthcare Address [address] [place] [address] Care Team Providers Care Hotel Registration Clerk Name Role Phone Unavailable Primary Care Provider Unavailabl e Encounter Details Date Type Department Care Team (Late st Contact Info) Description 05/03/2011 9:35 AM AQUATICS INSTRUCTOR - 05/03/2011 11:59 PM AQUATICS INSTRUCTOR Hospital Encounter [facility] Estela Daly MD [address] [place] [address] Dietary counseling and surveillance; Morbid obesity (HCC) Social History Tobacco Use Types Packs/Day Years Used Date Smoking Tobacco: Never Assessed Comments Unknown Sex and Gender Information Value Date Recorded Sex Assigned at Not on file Legal Sex Female 11:28 PM AQUATICS INSTRUCTOR Gender Identity Not on file Sexual Orientation Not on file documented as of this encounter Plan of Treatment Not on file documented as of this encounter Visit Diagnoses Diagnosis Dietary counseling and surveillance Morbid obesity (HCC) Morbid obesity documented in this encounter
--- OUTSIDE RECORDS SUMMARY | 2024-05-10 20:19 | XMS_ITS | Encounter Summary ---
Author Organization [facility] Care Team Providers Care Patient Safety Sitter Name Role Phone Jarred Roy MD Unavailable [phone] No, Physician Primary Care Provider Encounter Details Date Type Department Care Team (Latest Contact Info) Description 06/03/2019 Travel Social History Tobacco Use Types Packs/Day Years Used Date Smoking Tobacco: Never Smokeless Tobacco: Never Alcohol Use Standard Drinks/Week Comments No 0 (1 standard drink = 0.6 oz pur e alcohol) Comments No Sex and Gender Information Value Date Recorded Sex Assigned at Not on file Legal Sex Female 11:28 PM LOGISTIC SPECIALIST Gender Identity Not on file Sexual Orientation Not on file documented as of this encounter Plan of Treatment Not on file documented as of this encounter Visit Diagnoses Not on filedocumented in this encounter Care Teams Patient Safety Sitter Relationship Specialty Start Date End Date No, Physician PCP - General 05/26/19 12/10/19 Jarred Roy MD [address] [address] 01/30/19 documented as of this encounter
--- OUTSIDE RECORDS SUMMARY | 2024-05-10 20:19 | XMS_ITS | Encounter Summary ---
Author Organization [facility] Healthcare Address [address] [place] [address] Care Team Providers Care Apartment Assistant Manager Name Role Phone Unavailable Primary Care Provider Unavailabl e Encounter Details Date Type Department Care Team (Late st Contact Info) Description 04/13/2011 4:24 PM POLITICAL SCIENCE FACULTY MEMBER - 04/13/2011 11:59 PM POLITICAL SCIENCE FACULTY MEMBER Hospital Encounter [facility] Estela Daly MD [address] [place] [address] Urinary tract infection Social History Tobacco Use Types Packs/Day Years Used Date Smoking Tobacco: Never Assessed Comments Unknown Sex and Gender Information Value Date Recorded Sex Assigned at Not on file Legal Sex Female 11:28 PM POLITICAL SCIENCE FACULTY MEMBER Gender Identity Not on file Sexual Orientation Not on file documented as of this encounter Plan of Treatment Not on file documented as of this encounter Visit Diagnoses Diagnosis Urinary tract infection Urinary tract infection, site not specified documented in this encounter
--- OUTSIDE RECORDS SUMMARY | 2024-05-10 20:19 | XMS_ITS | Encounter Summary ---
Author Organization [facility] Healthcare Address [address] [place] [address] Care Team Providers Care Choke Setter Name Role Phone Jarred Roy MD Unavailable [phone] No, Physician Primary Care Provider Reason for Visit * Reason Comments Foot Pain Encounter Details Date Type Department Care Team (Late st Contact Info) Description 05/26/2019 11:12 PM DISTILLERY WORKER GENERAL - 05/26/2019 11:58 PM DISTILLERY WORKER GENERAL Emergency [facility] Emergency Department [address] [place] [address] Quinton Brock MD 1 [facility] [address] [place] [address] Contusion of right foot, initial encounter (Primary Dx) Discharge Disposition: Discharge to home or self care Social History Tobacco Use Types Packs/Day Years Used Date Smoking Tobacco: Never Smokeless Tobacco: Never Alcohol Use Standard Drinks/Week Comments No 0 (1 standard drink = 0.6 oz pur e alcohol) Comments No Sex and Gender Information Value Date Recorded Sex Assigned at Not on file Legal Sex Female 11:28 PM DISTILLERY WORKER GENERAL Gender Identity Not on file Sexual Orientation Not on file documented as of this encounter Last Filed Vital Signs Vital Sign Reading Time Taken Comments Blood Pressure 138/81 05/26/2019 11:20 PM DISTILLERY WORKER GENERAL Pulse 87 05/26/2019 11:20 PM DISTILLERY WORKER GENERAL Temperature 36.6 ??C (97.8 ??F) 05/26/2019 11:[address] Respiratory Rate 16 05/26/2019 11:20 PM DISTILLERY WORKER GENERAL Oxygen Saturation 100% 05/26/2019 11:20 PM DISTILLERY WORKER GENERAL Inhaled Oxygen Concentration - - Weight - - Height - - Body Mass Index - - documented in this encounter Discharge Diagnoses Diagnosis Contusion of right foot, initial encounter - CONTUSION OF RIGHT FOOT, INITIAL ENCOUNTER Other cause of strike by thrown, projected or falling object, initial encounter - OTHER CAUSE OF STRIKE BY THROWN, PROJECTED OR FALLING OBJECT, INITIAL ENCOUNTER Activity, unspecified - ACTIVITY, UNSPECIFIED Unspecified place or not applicable - UNSPECIFIED PLACE OR NOT APPLICABLE Unspecified external cause status - UNSPECIFIED EXTERNAL CAUSE STATUS documented in this encounter Discharge Instructions * Attachments The following attachments cannot be sent through Care Everywhere. * Foot Contusion (AfterCare(R) Instructions(ER/ED)) (Montserratian) documented in this encounter Medications at Time [...] Take with food. 30 tablet 12/18/2017 2 methylPREDNISolo ne (MEDROL DOSEPACK) 4 mg Dosepack FPD 04/07/2019 0 olopatadine (Pazeo) 0.7 % ophthalmic solution INT 1 GTT IN OS ONCE A DAY 10/24/2018 0 omeprazole (PriLOSEC) 20 mg capsule Take 20 mg by mouth daily 04/12/2019 0 promethazine-DM (PROMETHAZINE-DM ) 1.25-3 mg/mL syrup TK 5 ML PO QID PRF COUGH 04/07/2019 0 topiramate (TOPAMAX) 25 mg tablet Take 25 mg by mouth 2 (two) times a day 0 topiramate (TOPAMAX) 25 mg tablet Take 50 mg by mouth 2 times daily 06/12/2017 0 documented as of this encounter Discharge Disposition Disposition Code Departure Means Destination Comment s Discharge to home or self care D/C to home per w/c to personal vehicle, accompanied by mother. documented in this encounter ED Notes * Quinton Brock MD - 05/26/2019 11:15 PM CST HPI Chief Complaint Patient presents with ??? Foot Pain Patient is a 19-year-old female who presents emergency room complaining of pain and swelling to thetop of her right foot after dropping a heavy object on it prior to arrival. Pain is worse with ambulation. No ankle or knee pain. No numbness or tingling. There's no aggravating or alleviating factors. There's no other complaints of further review of symptoms negative Patient History Patient Active Problem List Diagnosis [...] ??? Alcohol use: No ??? Drug use: Not on file Social History Patient does not qualify to have social determinant information on file (likely too young). Social History Narrative ??? Not on file Review of Systems Review of Systems All other systems reviewed and are negative. Physical Exam ED Triage Vitals [05/26/192319] Temp Pulse Resp BP SpO2 36.6 ??C (97.8 ??F) 87 16 138/81 100 % Temp src Heart Rate Source [...] respiratory distress. Breath sounds: Normal breath sounds. Musculoskeletal: Normal range of motion. Skin: General: Skin is warm and dry. Capillary Refill: Capillary refill takes less than 2 seconds. Neurological: Mental Status: She is alert and oriented to person, place, and time. Psychiatric: Thought Content: Thought content normal. [facility] ED Course as of May 26 2339 Time: 05/26 2338 Comment: Patient aware of x-ray results By: Quinton Brock MD Contusion of right foot, initial encounter Quinton Brock MD 05/26/192339 ILLERY WORKER GENERAL documented in this encounter Plan of Treatment Not on file documented as of this encounter Procedures Procedure Name Priority Date/Time Associated Diagnosis Comments XR FOOT RIGHT 3 OR MORE VIEWS ED 05/26/2019 11:30 PM DISTILLERY WORKER GENERAL documented in this encounter Results * XR Foot Right 3+ views (05/26/2019 11:30 PM DISTILLERY WORKER GENERAL) Anatomical Region Laterality Modality Lower Extremities, Foot Right Computed Radiography 05/26/2019 11:2 5 PM DISTILLERY WORKER GENERAL Narrative 05/26/2019 11:39 PM DISTILLERY WORKER GENERAL PROCEDURE INFORMATION: Exam: XR Right Foot Complete Exam date and time: 05/26/2019 11:25 PM Age: 19 years old Clinical indication: Injury or trauma; Initial encounter; Swelling (edema); Patient HX: Complaining of pain and swelling to the top of her right foot after dropping a heavy object on it prior to arrival. Pain is worse with ambulation. Small abrasion to top of foot near 1st metatarsal; Additional info: Trauma to dorsum TECHNIQUE: Imaging protocol: XR Right foot. Views: 3 or more views. COMPARISON: No relevant prior studies available. FINDINGS: Bones/joints: There is no acute fracture, dislocation or other significant osseous abnormality. Soft tissues: There is mild distal dorsal soft tissue swelling. IMPRESSION: There is no evidence of acute osseous injury. THIS DOCUMENT HAS BEEN ELECTRONICALLY SIGNED BY STEF WESLEY MD Procedure Note Stef Wesley MD - 05/26/2019 PROCEDURE INFORMATION: Exam: XR Right Foot Complete Exam date and time: 05/26/2019 11:25 PM Age: 19 years old Clinical indication: Injury or trauma; Initial encounter; Swelling(edema); Patient HX: Complaining of pain and swelling to the top of her right footafter dropping a heavy object on it prior to arrival. Pain is worse withambulation. Small abrasion to top of foot near 1st metatarsal; Additional info: Traumato dorsum TECHNIQUE: Imaging protocol: XR Right foot. Views: 3 or more views. COMPARISON: No relevant prior studies available. FINDINGS: Bones/joints: There is no acute fracture, dislocation or othersignificant osseous abnormality. Soft tissues: There is mild distal dorsal soft tissue swelling. IMPRESSION: There is no evidence of acute osseous injury. THIS DOCUMENT HAS BEEN ELECTRONICALLY SIGNED BY STEF WESLEY MD Quinton Brock MD IMG XR PROCEDURES Final Resul t documented in this encounter Visit Diagnoses Diagnosis Contusion of right foot, initial encounter- Primary documented in this encounter Historical Medications * This list may reflect changes made after this encounter. topiramate (TOPAMAX) 25 mg tablet Take 25 mg by mouth 2 (two) times a day 06/03/2019 added in this encounter Orders Nursing Count Last Ordered Date First Orde red Date APPLY CARROLL WRAP 1 05/26/2019 documented in this encounter Care Teams Choke Setter Relationship Specialty Start Date End Date No, Physician PCP - General 05/26/19 12/10/19 Jarred Roy MD [address] [address] 01/30/19 documented as of this encounter
--- OUTSIDE RECORDS SUMMARY | 2024-05-10 20:19 | XMS_ITS | Encounter Summary ---
Author Organization [facility] Healthcare Address [address] [place] [address] Care Team Providers Care Leather Fitter Name Role Phone Unavailable Primary Care Provider Unavailabl e Encounter Details Date Type Department Care Team (Late st Contact Info) Description 08/04/2006 5:35 PM CDT - 08/04/2006 8:45 PM CDT Hospital Encounter [facility] Emanuel Lai MD 1 [facility] [place] [address] Estela Saenz MD 2 [facility] [address] [address] Social History Tobacco Use Types Packs/Day Years Used Date Smoking Tobacco: Never Assessed Comments Unknown Sex and Gender Information Value Date Recorded Sex Assigned at Not on file Legal Sex Female 11:28 PM SUPERVISOR VENDOR QUALITY Gender Identity Not on file Sexual Orientation Not on file documented as of this encounter Plan of Treatment Not on file documented as of this encounter Visit Diagnoses Not on filedocumented in this encounter
--- OUTSIDE RECORDS SUMMARY | 2024-05-10 20:19 | XMS_ITS | Encounter Summary ---
Author Organization [facility] Address [address] [place] [address] Care Team Providers Care File Machine Operator Name Role Phone Jarred Roy MD Unavailable [phone] No, Physician Primary Care Provider [phone] Reason for Referral * Diagnostic Imaging (Routine) - Closed Specialty Diagnoses / Procedures Referred By Contac t Referred To Contact Radiology Diagnoses Acute pain of right foot Closed nondisplaced fracture of medial cuneiform of right foot, initial encounter Procedures MRI Foot Right WO Contrast Hamilton Klein PA Phone: tel: fax: [facility] [address] [place] [address] Referral ID Status Reason Start Date Expiration Date Visits Re quested Visits Authorized [id number] Closed 06/04/2019 07/19/2019 1 1 S FINISHER Reason for Visit * Reason Comments Pain right foot pain Pain Encounter Details Date Type Department Care Team (Late st Contact Info) Description 06/03/2019 3:00 PM DRESS FINISHER Office Visit [facility] Orthopedics and Sports Medicine [address] [place] [address] Hamilton Klein PA [address] [place] [address] [facility] [place] [address] Acute pain of right foot (Primary Dx); Closed nondisplaced fracture of medial cuneiform of right foot, initial encounter Social History Tobacco Use Types Packs/Day Years Used Date Smoking Tobacco: Never Smokeless Tobacco: Never Alcohol Use Standard Drinks/Week Comments No 0 (1 standard drink = 0.6 oz pur e alcohol) Comments No Sex and Gender Information Value Date Recorded Sex Assigned at Not on file Legal Sex Female 11:28 PM DRESS FINISHER Gender Identity Not on file Sexual Orientation Not on file documented as of this encounter Last Filed Vital Signs Vital Sign Reading Time Taken Comments Blood Pressure 118/77 06/03/2019 3:06 PM DRESS FINISHER Pulse 63 06/03/2019 3:06 PM DRESS FINISHER Temperature - - Respiratory Rate - - Oxygen Saturation - - Inhaled Oxygen Concentration - - Weight 115.8 kg (255 lb 3.2 oz) 06/03/2019 3:06 PM DRESS FINISHER Height 165.1 cm (5' 5 ) 06/03/2019 3:06 PM DRESS FINISHER Body Mass Index 42.47 06/03/2019 3:06 PM DRESS FINISHER documented in this encounter Progress Notes * Hamilton Klein PA - 06/03/2019 3:00 PM CST Images from the original note were not included. NEW PATIENT VISIT Subjective CHIEF COMPLAINT She had concerns including Pain of the Right Foot and Pain (right foot pain). HISTORY OF PRESENT ILLNESS Ms. Licona is a pleasant 19 year old female presenting with right foot pain located over the dorsum of the foot near the base of the first metatarsal. This pain has been present for the past week after a chalkboard slid and fell directly onto her foot. The patient was initially evaluated at [facility],where radiographs were negative for acute fracture. Today, she has a small abrasion with bruising present over the dorsum of the foot that extends to the tips of the 1st-3rd toes. She notes pain withweightbearing activity and range of motion of the first toe. She states her swelling has improved, but she still has significant pain with weightbearing activity. She denies numbness, tingling, radiating pain, pain in any other location, and any further complaints. PAST MEDICAL HISTORY She has a past medical history of OTHER MEDICAL and OTHER MEDICAL. PAST SURGICAL HISTORY She has a past surgical history that includes Tonsillectomy/Adenoidectomy (Bilateral). MEDICATIONS She has a current medication list which includes the following prescription(s): albuterol hfa, amoxicillin-clavulanate, azelastine, bacitracin, ergocalciferol, ergocalciferol, ferrous sulfate, ibuprofen, ibuprofen, methylprednisolone, olopatadine, omeprazole, promethazine-dm, sumatriptan, and topiramate. ALLERGIES She has No Known Allergies. SOCIAL HISTORY She reports that she has never smoked. She has never used smokeless tobacco. She reports that she does not drink alcohol. FAMILY HISTORY Family History Problem Relation Age of Onset ??? Hypertension Father Hypertension; ??? Other Mother Alive and well at age 44.; REVIEW OF SYSTEMS Review of Systems Constitutional: Negative for appetite change and fever. HENT: Negative for drooling, facial swelling and voice change. Eyes: Negative for discharge. Respiratory: Negative for apnea and wheezing. Cardiovascular: Negative for chest pain and palpitations. Gastrointestinal: Negative for abdominal distention and abdominal pain. Endocrine: Negative for polydipsia. Genitourinary: Negative for flank pain. Musculoskeletal: Positive for arthralgias and myalgias. Negative for joint swelling. Skin: Negative for color change and rash. Neurological: Negative for speech difficulty. Hematological: Does not bruise/bleed easily. Psychiatric/Behavioral: Negative for hallucinations. Objective PHYSICAL EXAM Ht 165.1 cm (5' 5 ) BMI 41.60 kg/m?? Right foot/ankle Inspection Erythema: absent Effusion: absent Surgical scar/wound: absent. Deformity: absent Callous: absent Edema: present Skin temperature: normal Range of motion The patient has normal range of motion. The patient does not have pain with range of motion. Strength The patient has 5/5 strength throughout. Neurovascular The patient has normal vascular on the right side of their body. The patient has normal sensation on the right side of their body. Pain located over the base of the first metatarsal. Pain with range of motion of the first toe. A small, healing abrasion is present at the base of the first metatarsal with ecchymosis. Ecchymosis extends to the distal aspect of the 1st- 3rd toes. No plantar ecchymosis. REVIEW OF X-RAYS/STUDIES/LABS Radiographs of the right foot taken on 05/26/2018 at [facility] reviewed today reveal a possible nondisplaced fracture at the medial aspect of the medial cuneiform. There is soft tissue swelling located over the dorsum of the foot above the metatarsals. Assessment/Plan Jamal was seen today for pain and pain. Diagnoses and all orders for this visit: Acute pain of right foot Closed nondisplaced fracture of medial cuneiform of right foot, initial encounter Plan At this time, I will obtain an MRI for further evaluation of occult fracture as radiographs are indeterminate. We will treat the patient today with a fracture shoe and crutches. She is to remain nonweightbearing in this fracture shoe until the MRI has been performed and reviewed. I will call the patient with the results of this study. The patient will tentatively follow up in 6 weeks for repeat radiographs and reevaluation. She may contact our office with any further questions or concerns. DESTINY Mckeon Cosigned by David Feliz MD at 06/04/2019 9:56 AM DRESS FINISHER S FINISHER S FINISHER documented in this encounter Miscellaneous Notes * Addendum Note - Sadie Goodman MA - 06/03/2019 3:00 PM CSTAddended by: SADIE GOODMAN on: 06/03/2019 03:55 PM Modules accepted: Orders S FINISHER documented in this encounter Plan of Treatment Not on file documented as of this encounter Results * MRI Foot Right WO Contrast (06/07/2019 6:29 PM DRESS FINISHER) Anatomical Region Laterality Modality Lower Extremities Right Magnetic Reson ance 06/07/2019 5:50 PM DRESS FINISHER Narrative 06/11/2019 10:06 AM DRESS FINISHER [facility] ?Imaging Result Name: JAMAL LICONA ? Ordering Phys: HAMILTON KLEIN Age: 19 ?Date of : 2000 ? Accession Number: [id number] Date of Service: 06/07/2019 ??Gender: F EXAM [...] AM T: ??06/10/2019 9:01 AM Report ID: [id number] Reading Location: ??[id number] Procedure Note Mook Arias MD - 06/11/2019 [facility] Imaging Result Name: JAMAL LICONA Brina Ordering Phys: HAMILTON KLEIN Age: 19 Date of : 2000 Accession Number: [id number] Date of Service: 06/07/2019 Gender: F EXAM [...] Mook Arias M.D. MJ: JASON Report ID: [id number] Reading Location: [place] [address] Hamilton DIXON IMG MRI PROCEDURES Final Result documented in this encounter Visit Diagnoses Diagnosis Acute pain of right foot- Primary Closed nondisplaced fracture of medial cuneiform of right foot, initial encounter Acute pain of right foot Closed nondisplaced fracture of medial cuneiform of right foot, initial encounter documented in this encounter Discontinued Medications Medication Sig Discontinue Reason Start Date End Da te topiramate (TOPAMAX) 25 mg tablet Take 25 mg by mouth 2 (two) times a day 06/03/2019 documented as of this encounter Historical Medications * This list may reflect changes made after this encounter. topiramate (TOPAMAX) 25 mg tablet Take 50 mg by mouth 2 times daily 06/12/2017 0 SUMAtriptan (IMITREX) 50 mg tablet Take 50 mg by mouth 0 promethazine-DM (PROMETHAZINE-DM ) 1.25-3 mg/mL syrup TK 5 ML PO QID PRF COUGH 04/07/2019 0 omeprazole (PriLOSEC) 20 mg capsule Take 20 mg by mouth daily 04/12/2019 0 olopatadine (Pazeo) 0.7 % ophthalmic solution INT 1 GTT IN OS ONCE A DAY 10/24/2018 0 methylPREDNISolo ne (MEDROL DOSEPACK) 4 mg Dosepack FPD 04/07/2019 0 ergocalciferol (VITAMIN D) 50,000 unit capsule 05/23/2019 0 ergocalciferol (VITAMIN D) 50,000 unit capsule TAKE 1 CAPSULE BY MOUTH 1 TIME A WEEK FOR 6 DOSES 12/31/2018 0 bacitracin (bacitracin) 500 unit/gram ointment Apply topically 2 times daily 02/04/2019 0 azelastine (OPTIVAR) 0.05 % ophthalmic solution INSTIL 1 GTT INTO LEFT EYE BID 10/24/2018 0 amoxicillin-clav ulanate (AUGMENTIN) 875-125 mg per tablet TK 1 T PO BID WF FOR 10 DAYS 04/12/2019 0 albuterol HFA (PROVENTIL HFA,VENTOLIN HFA,PROAIR HFA) 90 mcg/actuation inhaler INHALE 2 PUFFS EVERY 4-6 HOURS NEEDED FOR COUGH OR SHORTNESS OF BREATH 04/05/2019 0 ibuprofen (ADVIL,MOTRIN) 800 mg tablet Take 800 mg by mouth every 6 hours as needed 0 ferrous sulfate 325 mg (65 mg of elemental iron) tablet Take 325 mg by mouth 3 (three) times a day with meals 06/12/2017 0 added in this encounter Care Teams File Machine Operator Relationship Specialty Start Date End Date No, Physician PCP - General 05/26/19 12/10/19 Jarred Roy MD [address] [place] [address] 01/30/19 documented as of this encounter
--- OUTSIDE RECORDS SUMMARY | 2024-05-10 20:19 | XMS_ITS | Encounter Summary ---
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 Gender Identity Not on file Sexual Orientation Not on file documented as of this encounter Last Filed Vital Signs Vital Sign Reading Time Taken Comments Blood Pressure 113/65 12/18/2017 12:24 AM CDT Pulse 75 12/18/2017 12:24 AM CDT Temperature 36.8 ??C (98.2 ??F) 12/17/2017 11:19 PM C DT Respiratory Rate 18 12/18/2017 12:24 AM CDT Oxygen Saturation 100% 12/18/2017 12:24 AM CDT Inhaled Oxygen Concentration - - Weight 113.4 kg (250 lb) 12/17/2017 11:19 PM CDT Height 165.1 cm (5' 5 ) 12/17/2017 11:19 PM CDT Body Mass Index 41.6 12/17/2017 11:19 PM CDT Body Mass Index Percentile 99.25% 12/17/2017 11: 19 PM CDT Growth Chart: [facility] (Girls, 2- 20 Years) documented in this encounter Discharge Instructions * Discharge Instructions* Annamaria Solis MD - 12/18/2017 12:11 AM CDT Avoid weight-bearing for the next 2-[address] Roy if pain persists into next week. Apply ice to foot on and off for the next 24-48 hours. * Attachments The following attachments cannot be sent through Care Everywhere. * Foot Contusion (AfterCare(R) Instructions(ER/ED)) (Liberian) documented in this encounter [...] Take with food. 30 tablet 12/18/2017 06/22/2021 topiramate (TOPAMAX) 25 mg tablet Take 50 mg by mouth 2 times daily 06/12/2017 12/14/2019 documented as of this encounter Ordered Prescriptions Prescription Sig Dispense Quantity Refills Last Filled Start Date End Date ibuprofen (ADVIL,MOTRIN) 600 mg tablet Take 1 tablet (600 mg total) by mouth every 8 (eight) hours as needed for pain. Take with food. 30 tablet 12/18/2017 06/22/2021 documented in this encounter Discharge Disposition Disposition Code Departure Means Destination Discharge to home or self care documented in this encounter ED Notes * Annamaria Solis MD - 12/17/2017 11:36 PM CDT HPI Chief Complaint Patient presents with ??? Ankle Pain 11:31 PM 12/17/2017 Pt is a 17 y/o female non-smoker presenting to the ED c/o constant moderate left lateral foot pain that started approximately 1 hour ago when she twisted her ankle and fell. Pt reports she was walking out of her house and her sidewalk is a missing a piece of concrete that caused her to fall. Pt describes the pain as tingling and burning. There are no other complaints at this [...] Genitourinary: Negative for dysuria and hematuria. Musculoskeletal: Positive for arthralgias (left lateral foot). Negative for back pain. Skin: Negative for color change and rash. Neurological: Negative for seizures and syncope. All other systems reviewed and are negative. Physical Exam ED Triage Vitals Temp Pulse Resp BP SpO2 12/17/17 2319 12/17/17 2319 12/17/17 2319 12/17/17 2319 12/17/17 2319 36.8 ??C (98.2 ??F) 90 18 130/77 100 % Temp src Heart Rate Source Patient Position BP Location FiO2 (%) 12/17/17 2319 12/18/17 0024 12/18/17 0024 12/18/17 0024 -- Oral Monitor Sitting Left arm Physical Exam Constitutional: She appears well-developed and well-nourished. No distress. HENT: Head: Normocephalic and atraumatic. Eyes: Conjunctivae are normal. Neck: Neck supple. Cardiovascular: Normal rate and regular rhythm. No murmur heard. Pulmonary/Chest: Effort normal and breath sounds normal. No respiratory distress. Abdominal: Soft. There is no tenderness. Musculoskeletal: She exhibits tenderness (to palpation over lateral aspect of left foot). She exhibits no edema. Pt has full ROM and good pulse. Neurological: She is alert. Skin: Skin is warm and dry. Psychiatric: She has a normal mood and affect. Nursing note and vitals reviewed. MDM MDM Number of Diagnoses or Management Options Amount and/or Complexity of Data Reviewed Tests in the radiology section of CPT??: reviewed and ordered Vitals: 12/18/17 0024 BP: 113/65 Pulse: 75 Resp: 18 Temp: SpO2: 100% Labs Reviewed - No data to display XR Foot Left 3+ views (Results Pending) ED Course as of Dec 19 431 Time: 12/17 2326 Value: BP: 130/77 Comment: Pre-hypertension/Hypertension: The patient has been informed that they may have pre-hypertension or Hypertension based on a blood pressure reading in the Emergency Department. I recommend that the patient call the primary care provider listed on their discharge instructions or a physician of their choice this week to arrange follow up for further evaluation of possible pre- hypertension or Hypertension. By: Armin Roberts Time: 08/13 0010 Comment: Rechecked patient. Condition is improved. Discussed the results of ED findings, and the plan for discharge. Recommended follow up with PCP or return to ED for new or worsening symptoms. Patient understands and agrees with plan. All other questions have been addressed. By: Armin Roberts Contusion of left foot, initial encounter This note is prepared by Armin Roberts acting as a scribe for Annamaria Solis MD. Signed by Ja Guan, 11:40 PM 12/17/2017. I, Annamaria Solis MD, have personally performed the services described in the documentation , reviewed the documentation, as recorded by the scribe in my presence, and it accurately and completely records my words and actions. Annamaria Solis MD 12/18/17 0432 * Stephanie Guthrie RN - 12/17/2017 11:11 PM CDT 17 yr old female arrives to the ED for complaints of left ankle pain. Pt states she was walking down a sidewalk and her left foot twisted in an area where there was a hole in the sidewalk. Pt reportsburning and tingling to left ankle. Edema noted to left ankle. Mother at bedside. documented in this encounter Plan of Treatment Not on file documented as of this encounter Procedures Procedure Name Priority Date/Time Associated Diagnosis Comments XR FOOT LEFT 3 OR MORE VIEWS ED 12/17/2017 11:50 PM CDT documented in this encounter Results * XR Foot Left 3+ views (12/17/2017 11:50 PM CDT) Anatomical Region Laterality Modality Lower Extremities, Foot Left Computed Radiography 12/18/2017 6:32 AM CDT Impressions 12/18/2017 6:33 AM CDT NORMAL LEFT FOOT. Electronically signed by: Duarte Michelle M.D. Narrative 12/18/2017 6:33 AM CDT XR FOOT LEFT 3 OR MORE VIEWS HISTORY: pain after twisting foot. ??Lateral left foot pain. COMPARISON: None available. FINDINGS: AP, lateral and oblique projections are obtained. There is no evidence of fracture, dislocation or osseous lesion. The joint spaces are normally aligned. The soft tissues are normal. Procedure Note Duarte Michelle MD - 12/18/2017 XR FOOT LEFT 3 OR MORE VIEWS HISTORY: pain after twisting foot. Lateral left foot pain. COMPARISON: None available. FINDINGS: AP, lateral and oblique projections are obtained. There is no evidence of fracture, dislocation or osseous lesion. The joint spaces are normally aligned. The soft tissues are normal. IMPRESSION: NORMAL LEFT FOOT. Electronically signed by: Duarte Michelle M.D. Annamaria Solis MD IMG XR PROCEDURES Final Re sult documented in this encounter Visit Diagnoses Diagnosis Contusion of left foot, initial encounter- Primary documented in this encounter Discontinued Medications Medication Sig Discontinue Reason Start Date End Da te ibuprofen (ADVIL,MOTRIN) 800 mg tablet Take 1 tablet (800 mg total) by mouth every 8 (eight) hours as needed for pain. Take with food. 09/16/2017 12/18/2017 documented as of this encounter Orders General Supply Count Last Ordered Date First Or dered Date POST-OP SHOE LG SIZE 8-10 FEMALE ([id number]) 1 12/18/2017 documented in this encounter Care Teams Production Assembly Operator Relationship Specialty Start Date End Date Jarred Roy MD [address] [address] PCP - General 09/16/17 01/29/19 documented as of this encounter
--- OUTSIDE RECORDS SUMMARY | 2024-05-10 20:50 | XMS_ITS | Encounter Summary ---
Author Organization [facility] Address [address] [place] [address] Phone Care Team Providers Care Form Tamping Machine Operator Name Role Phone Jarred Roy MD Unavailable [phone] Elma Echevarria NP Unavailable No, Physician Primary Care Provider [phone] Reason for Visit * Reason Comments High Risk Gestation Encounter Details Date Type Department Care Team (Late st Contact Info) Description 02/14/2024 9:15 AM CDT Office Visit [facility] Maternal- Medicine [facility] 7th [address] [place] [address] Elevated blood pressure reading without [...] any clubs o r organizations such as muslim groups, unions, fraternal or athletic groups, or [...] in a fci (including now)? 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 at 32w0d who [...] high-risk , first trimester Overview [x] Full [facility] Care as of 12/13/2023 [x] [employer] email sent 12/12 Referring Provider: Janett Robles [phone] [] or Medicare Insurance [x] Dating Criteria: [...] makes. She is considering exclusively pumping. [x] Transportation Design Engineer: [] PP Depression Discussed: #palpations/heat waves - [...] 04/04/2024 added in this encounter Care Teams Form Tamping Machine Operator Relationship Specialty Start Date End Date No, Physician PCP - General 12/03/23 Jarred Roy MD [address] [place] [address] 01/30/19 EyeElma charles NP [address] [facility] [address] [address] Nurse Practitioner General Surgery 12/16/19 documented as of this encounter
--- OUTSIDE RECORDS SUMMARY | 2024-05-10 20:50 | XMS_ITS | Encounter Summary ---
Author Organization [facility] Address [address] [place] [address] Phone Care Team Providers Care Registered Nurse Renal Name Role Phone Jarred Roy MD Unavailable [phone] Elma Echevarria NP Unavailable No, Physician Primary Care Provider [phone] Reason for Visit * Reason Comments High Risk Gestation Encounter Details Date Type Department Care Team (Late st Contact Info) Description 03/13/2024 10:00 AM LEASING REPRESENTATIVE Office Visit [facility] Maternal- Medicine [facility] 7th Floor [address] [place] [address] Elevated blood pressure reading without [...] often do you attend chur ch or mandaen services? Never 07/21/2021 Do you belong to any clubs o r organizations such as evangelical groups, unions, fraternal or athletic groups, or [...] in a jail (including now)? No 07/21/2021 [place] Depression Scale Answer Date Recorded [place] Depression Scale Total 6 09/03/2021 The thought [...] on file Legal Sex Female 11:28 PM LEASING REPRESENTATIVE Gender Identity Not on file Sexual Orientation Not on file documented as of this encounter Last Filed Vital Signs Vital Sign Reading Time Taken Comments Blood Pressure 119/74 03/13/2024 10:17 AM LEASING REPRESENTATIVE Pulse 77 03/13/2024 10:17 AM LEASING REPRESENTATIVE Temperature - - Respiratory Rate - - Oxygen Saturation 97% 03/13/2024 10: 17 AM LEASING REPRESENTATIVE Inhaled Oxygen Concentration - - Weight 148.2 kg (326 lb 12.8 oz) 2023 10:17 AM LEASING REPRESENTATIVE Height - - Body Mass Index 54.38 01/31/2024 9:34 AM CDT documented in this encounter Progress Notes * Janeth Zacarias, BILLING MANAGER - 03/13/2024 10:00 AM CST [facility] Return Visit 03/13/2024 Mary Singh is a [...] high-risk , first trimester Overview [x] Full [facility] Care as of 12/13/2023 [x] [employer] email sent 12/12 Referring Provider: Janett Robles [phone] [] or Medicare Insurance [x] Dating Criteria: [...] makes. She is considering exclusively pumping. [x] Carpenter General: [x] PP Depression Discussed: Relevant Orders Group B streptococcal culture Vaginal/Rectal #headache/chest tightness - [facility] return precautions reviewed for any new chest pain, SOB or irregular heartbeat - [facility] BILLING MANAGER aware [place] ING REPRESENTATIVE documented in this encounter Plan of Treatment Not on file documented as of this encounter Results * (ABNORMAL) Group B streptococcal culture Vaginal/Rectal (03/13/2024 1:33 PM LEASING REPRESENTATIVE) Report Final Report: Streptococcus agalactiae (Group B [...] allergic patients, please contact the laboratory at [phone] to request susceptibility testing * ??* ??* ??* ??* ??* ??* ??* ??* ??* ??* ??* ??* ??* ??* ??* ??* ??* ??* ??* (.) Organism STREPTOCOCCUS AGALACTIAE (GROUP B STREPTOCOCCI) [facility] Vaginal/Rectal 03/13/2024 1: 33 PM LEASING REPRESENTATIVE 03/13/2024 2:20 PM LEASING REPRESENTATIVE Narrative [facility] - 03/15/2024 1:08 PM LEASING REPRESENTATIVE Testing performed by [facility] Microbiology Laboratory ([phone]). us Janeth Zacarias NP LAB MICROBIOLOGY - GENERAL ORDERABLES Final Result [facility] Department [place] [address] documented in this encounter Visit Diagnoses Diagnosis [...] trimester documented in this encounter Care Teams Registered Nurse Renal Relationship Specialty Start Date End Date No, Physician PCP - General 12/03/23 Jarred Roy MD [address] [address] 01/30/19 lEma Echevarria NP [address] [address] Nurse Practitioner General Surgery 12/16/19 documented as of this encounter
--- OUTSIDE RECORDS SUMMARY | 2024-05-10 20:50 | XMS_ITS | Encounter Summary ---
Author Organization [facility] Healthcare Address [address] [place] [address] Care Team Providers Care Production Proofreader Name Role Phone Jarred Roy MD Unavailable [phone] Elma Echevarria NP Unavailable No, Physician Primary Care Provider [phone] Reason for Referral * Diagnostic Imaging (Routine) - Closed Specialty Diagnoses / Procedures Referred By Contac t Referred To Contact Diagnoses Other obesity affecting in third trimester Procedures US Ob Follow Up Janeth Zacarias NP [address] [facility] [phone] [place] [address] Phone: tel: fax: [facility] (All Locations) Referral ID Status Reason Start Date Expiration Date Visits Re quested Visits Authorized [id number] Closed 02/28/2024 03/29/2025 1 1 * Diagnostic Imaging (Routine) - Closed Specialty Diagnoses / Procedures Referred By Contac t Referred To Contact Diagnoses Other obesity affecting in third trimester Procedures US Ob Follow Up Janeth Zacarias NP [address] [facility] [phone] [place] [address] Phone: tel: fax: [facility] (All Locations) Referral ID Status Reason Start Date Expiration Date Visits Re quested Visits Authorized [id number] Closed 02/28/2024 03/29/2025 1 1 Reason for Visit * Diagnostic Imaging (Routine) - Closed Specialty Diagnoses / Procedures Referred By Loyd t Referred To Contact Diagnoses Obesity affecting in first trimester, unspecified obesity type Procedures US Ob Follow Up Janeth Zacarias NP [address] [facility] [phone] [place] [address] Phone: tel: fax: [facility] (All Locations) Referral ID Status Reason Start Date Expiration Date Visits Re quested Visits Authorized [id number] Closed 01/03/2024 02/01/2025 1 1 Encounter Details Date Type Department Care Team (Latest Contact Info) Description 02/28/2024 9:59 AM CDT - 02/28/2024 11:59 PM CDT Hospital Encounter [facility] - Ultrasound [address] [facility], 7th Floor, [address] [place] [address] Other obesity affecting in third trimester (Primary [...] in a half-way (including now)? 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 us Janeth Zacarias AGENT [employer]ER IMG OB US PROCEDURE S Final Result documented in this encounter Visit Diagnoses Diagnosis Other obesity affecting in third trimester- Primary documented in this encounter Care Teams Production Proofreader Relationship Specialty Start Date End Date No, Physician PCP - General 12/03/23 Jarred Roy MD 2 [facility] [address] [address] 01/30/19 Elma Echevarria NP [address] [facility] [address] [address] Nurse Practitioner General Surgery 12/16/19 documented as of this encounter
--- OUTSIDE RECORDS SUMMARY | 2024-05-10 20:50 | XMS_ITS | Encounter Summary ---
Author Organization [facility] Address [address] [place] [address] Phone Care Team Providers Care Director Sports Name Role Phone Jarred Roy MD Unavailable [phone] Elma Echevarria NP Unavailable No, Physician Primary Care Provider [phone] Encounter Details Date Type Department Care Team (Late st Contact Info) Description 01/31/2024 Orders Only [facility] Maternal- Medicine [address] [facility] 7th Floor [address] [place] [address] Deanne Aguiar, RN Social History [...] in a jail (including now)? 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
--- OUTSIDE RECORDS SUMMARY | 2024-05-10 20:50 | XMS_ITS | Encounter Summary ---
Author Organization [facility] Address [address] [place] [address] Phone Care Team Providers Care Shift Boss Name Role Phone Jarred Roy MD Unavailable [phone] Elma Echevarria NP Unavailable No, Physician Primary Care Provider [phone] Encounter Details Date Type Department Care Team (Late st Contact Info) Description 02/28/2024 Orders Only [facility] Maternal- Medicine [facility] [address] [facility] [address] [place] [address] Nelsy Fuller Social History Tobacco [...] any clubs o r organizations such as rastafari groups, unions, fraternal or athletic groups, or [...] a care home (including now)? 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
--- OUTSIDE RECORDS SUMMARY | 2024-05-10 20:50 | XMS_ITS | Referral Summary ---
Author Organization [facility] Address [address] [place] [address] Care Team Providers Care Senior Net Engineer Name Role Phone Jarred Roy MD Unavailable [phone] Elma Echevarria NP Unavailable No, Physician Primary Care Provider [phone] Encounters Date Type Department Care Team Description 04/24/2024 Telephone Obstetrics and Gynecology Clinic [address] [place] [address] 3rd Floor [address] [place] [phone] Magui Vail 04/18/2024 11:55 AM SENIOR NET ENGINEER Lab [facility] Health [address] [place] [phone] Encounter for routine follow-up 04/18/2024 11:20 AM SENIOR NET ENGINEER Office Visit [facility] [address] [place] [address] 7th Floor [address] [place] [address] Encounter for routine follow-up (Primary Dx) 04/02/2024 10:51 PM SENIOR NET ENGINEER - 04/04/2024 2:57 PM SENIOR NET ENGINEER Hospital Encounter [address] [address] Garret Victor MD Zofkie, Amanda Christine, MD Bligard, Katherine Hollister, MD Encounter for induction of labor (Primary Dx) Discharge Disposition: Discharge to home or self care 04/03/2024 4:20 AM SENIOR NET ENGINEER Anesthesia Event [address] [phone] Jese Espinoza MD Ukeje, Chideraa Cynthia, MD 04/01/[address] [phone] Cassi French RN Scheduled Induction 03/27/2024 10:30 AM SENIOR NET ENGINEER Clinical Support [facility] Obstetrics and Gynecology [address] [place] [address] [address]th [place] [address] Obesity affecting , antepartum, unspecified obesity type (Primary Dx) 03/27/2024 10:00 AM SENIOR NET ENGINEER Office Visit [facility] Maternal- Medicine [address] [place] [address] 7th Floor [address] [place] [phone] Elevated blood pressure reading without diagnosis of hypertension (Primary Dx); Family history of spina bifida; History of hemorrhage, currently in first trimester; Obesity affecting in first trimester, unspecified obesity type; headache in second trimester; Proteinuria complicating in first trimester; Supervision of high-risk , first trimester 03/27/2024 9:08 AM SENIOR NET ENGINEER - 03/27/2024 11:59 PM SENIOR NET ENGINEER Hospital Encounter [facility] Outpatient [facility] - Ultrasound [address] [place] [address], [address] [place] [address], [address] [place] [address] Obesity affecting in first trimester, unspecified obesity type (Primary Dx) Discharge Disposition: Discharge to home or self care 03/23/2024 11:11 AM SENIOR NET ENGINEER - 03/23/2024 1:21 PM SENIOR NET ENGINEER Hospital Encounter [address] [address] Garret Victor MD Meka, MD Amari Fierro Bridget C., MD Discharge Disposition: Discharge to home or self care 03/20/2024 10:40 AM SENIOR NET ENGINEER Office Visit [facility] Maternal- Medicine [address] [place] [address] 7th Floor [address] [place] [address] Elevated blood pressure reading without diagnosis of hypertension (Primary Dx); Family history of spina bifida; History of hemorrhage, currently in first trimester; Obesity affecting in first trimester, unspecified obesity type; headache in second trimester; Supervision of high-risk , first trimester 03/20/2024 9:30 AM SENIOR NET ENGINEER Clinical Support [facility] Obstetrics and Gynecology [address] [place] [address] [place] [phone] Obesity affecting , antepartum, unspecified obesity type (Primary Dx) 03/13/2024 10:34 AM SENIOR NET ENGINEER - 03/13/2024 11:59 PM SENIOR NET ENGINEER Hospital Encounter [address] [address] Supervision of high-risk , first trimester Discharge Disposition: Discharge to home or self care 03/13/2024 11:36 AM SENIOR NET ENGINEER - 03/13/2024 2:22 PM SENIOR NET ENGINEER Hospital Encounter [address] [address] Garret Victor MD Dombrowski, Michael McKinley, MD Discharge Disposition: Discharge to home or self care 03/13/2024 10:00 AM SENIOR NET ENGINEER [facility] [address] [place] [address] Health [facility] Floor [address] [place] [phone] Elevated blood pressure reading without diagnosis of hypertension (Primary Dx); Family history of spina bifida; History of hemorrhage, currently in first trimester; Obesity affecting in first trimester, unspecified obesity type; headache in second trimester; Proteinuria complicating in first trimester; Supervision of high-risk , first trimester 03/13/2024 9:30 AM SENIOR NET ENGINEER Clinical Support [facility] Obstetrics and Gynecology [address] [place] [address] Outpatient Health [address] [place] [phone] Obesity affecting , antepartum, unspecified obesity type (Primary Dx) 03/06/2024 9:30 AM CDT Clinical Support [facility] Obstetrics and Gynecology [address] [place] [address] Outpatient Health [address] [place] [phone] Obesity affecting , antepartum, unspecified obesity type (Primary Dx) 02/28/2024 Orders Only [facility] [place] [id number] [facility] Medical Office Building [address] [place] [phone] Nelsy FullerLaina 02/28/2024 11:05 AM CDT Lab [facility] Outpatient Health [address] [place] [phone] Supervision of high-risk , first trimester 02/28/2024 10:45 AM CDT Office Visit [facility] Maternal- Medicine [address] [place] [address] 7th Floor [address] [place] [address] Elevated blood pressure reading without diagnosis of hypertension (Primary Dx); Family history of spina bifida; History of hemorrhage, currently in first trimester; Obesity affecting in first trimester, unspecified obesity type; headache in second trimester; Proteinuria complicating in first trimester; Supervision of high-risk , first trimester 02/28/2024 9:59 AM CDT - 02/28/2024 11:59 PM CDT Hospital Encounter [facility] Outpatient [facility] - Ultrasound [address] [place] [address], 7th Floor, [address] [place] [address] Other obesity affecting in third trimester (Primary Dx) Discharge Disposition: Discharge to home or self care 02/14/2024 Orders Only [facility] Maternal- Medicine [address] [place] [address] 7th Floor [address] [place] [address] Breanna Quijano RN 02/14/2024 9:15 AM CDT Office Visit [facility] Maternal- Medicine [address] [place] [address] 7th Floor [address] [place] [address] Elevated blood pressure reading without diagnosis of [...] interval tubal. To be set up in [facility] 3 for interval tubal. DMPA as bridge. # MOF: Formula feeding. Urine drug screen not indicated. Patient informed of results: N/A. # Post DVT prophylaxis: The patient has the following MAJOR risk factors BMI >/= 40 and the following MINOR risk factors none. enoxaparin 40 mg BID ordered for VTE prophylaxis. # Disposition: Follow up task sent to [facility] scheduling pool for appointments in 2 and 6 weeks. Desires discharge home today. #Rh neg: s/p Rhogam 01/17/24, for Rhogam prior to d/c #Headache: controlled on topomax outside of , Mg/B6 during , compazine PRN Service Coverage These phones are service phones and carried 28/11 in house: R1 (first call) [phone] R1 alt (second call) [phone] R4 (Chief) [phone] Proteinuria complicating in first trim brennan 10/04/2023 [...] Iron deficiency 11/19/2018 Migraine 11/19/2018 Astigmatism 09/18/2018 [id number] spots 09/18/2018 Vitamin D deficiency 09/18/2018 Chronic [...] trimester 10/04/2023 04/18/2024 Overview (03/27/2024): [x] Full [facility] Care as of 12/13/2023 [x] [employer] email sent 12/12 Referring Provider: Janett Robles [phone] [] or Medicare Insurance [x] Dating Criteria: [...] makes. She is considering exclusively pumping. [x] Air Brake Man: [x] PP Depression Discussed: History of hemrachelle [...] # Disposition: Follow up task sent to [facility] scheduling pool. Continue routine care. Pt prefers [...] [x] Method of feeding: Plans breast [] Air Brake Man: [] Car seat: [] PP Depression Counseling [...] drink = 0.6 oz pur e alcohol) [facility] Utilities Answer Date Recorded In the past 12 months has e [employer], gas, oil, or water [employer] threatened to shut off services in your [...] often do you attend chur ch or sabianism services? Never 04/04/2024 Do you belong to [...] in a residential (including now)? No 07/21/2021 [place] Depression Scale Answer Date Recorded [place] Depression Scale Total 4 04/18/2024 The thought [...] any time in the past 12 m [facility], were you homeless or [...] file Legal Sex Female 11:28 PM SENIOR NET ENGINEER Gender Identity Not on file Sexual Orientation Not on file Last Filed Vital Signs Vital Sign Reading Time Taken Comments Blood Pressure 112/70 04/18/2024 11:27 AM SENIOR NET ENGINEER Pulse 69 04/18/2024 11:27 AM SENIOR NET ENGINEER Temperature 36.5 ??C (97.7 ??F) 04/04/2024 7:39 AM CS T Respiratory Rate 16 04/04/2024 7:39 AM SENIOR NET ENGINEER Oxygen Saturation 98% 04/18/2024 11: 27 AM SENIOR NET ENGINEER Inhaled Oxygen Concentration - - Weight 138.9 kg (306 lb 3.2 oz) 024 11:27 AM SENIOR NET ENGINEER Height 165.1 cm (5' 5 ) 04/18/2024 11:2 7 AM SENIOR NET ENGINEER Body Mass Index 50.95 04/18/2024 11:27 AM SENIOR NET ENGINEER Plan of Treatment Not on file Procedures Procedure Name Priority Date/Time Associated Diagnosis Comments CBC WITHOUT DIFFERENTIAL Routine 04/18/2024 12:08 PM SENIOR NET ENGINEER Encounter for routine follow-up FERRITIN Routine 04/18/2024 12:08 PM SENIOR NET ENGINEER Encounter for routine follow-up BLEED SCREEN Timed 04/04/2024 6: 01 AM SENIOR NET ENGINEER ABO/RH Timed 04/04/2024 6:01 AM SENIOR NET ENGINEER RH IMMUNE GLOBULIN EVAL Timed 04/04/2024 6:01 AM SENIOR NET ENGINEER US OB LIMITED IP Routine 04/03/2024 7:59 AM SENIOR NET ENGINEER Encounter for induction of labor ANESTHESIA EPIDURAL BLOCK Routine 04/03/2024 5:15 AM SENIOR NET ENGINEER EGFR STAT 04/02/2024 11:32 PM SENIOR NET ENGINEER COMPREHENSIVE METABOLIC PANEL STAT 04/02/2024 11:32 PM SENIOR NET ENGINEER CBC WITHOUT DIFFERENTIAL STAT 04/02/2024 11:32 PM SENIOR NET ENGINEER TYPE AND SCREEN STAT 04/02/2024 11:32 PM SENIOR NET ENGINEER RPR STAT 04/02/2024 11:32 PM SENIOR NET ENGINEER NONSTRESS TEST Routine 03/27/2024 11:18 AM SENIOR NET ENGINEER Obesity affecting , antepartum, unspecified obesity type US OB FOLLOW UP Schedule Routine, Read Routine (OP Routine) 03/27/2024 9:15 AM SENIOR NET ENGINEER Obesity affecting in first trimester, unspecified obesity type POCT URINALYSIS (CLINITEK) Routine 03/23/2024 12:07 PM SENIOR NET ENGINEER NONSTRESS TEST Routine 03/20/2024 10:48 AM SENIOR NET ENGINEER Obesity affecting , antepartum, unspecified obesity type ANTIBODY IDENTIFICATION STAT 03/13/2024 2:58 PM SENIOR NET ENGINEER GROUP B STREPTOCOCCUS CULTURE Routine 03/13/2024 1:33 PM SENIOR NET ENGINEER Supervision of high-risk , first trimester EGFR STAT 03/13/2024 12:13 PM SENIOR NET ENGINEER CBC WITHOUT DIFFERENTIAL STAT 03/13/2024 12:13 PM SENIOR NET ENGINEER COMPREHENSIVE METABOLIC PANEL STAT 03/13/2024 12:13 PM SENIOR NET ENGINEER TYPE AND SCREEN STAT 03/13/2024 12:13 PM SENIOR NET ENGINEER URIC ACID STAT 03/13/2024 12:13 PM SENIOR NET ENGINEER PROTEIN / CREATININE RATIO, URINE, RANDOM STAT 03/13/2024 12:13 PM SENIOR NET ENGINEER POCT URINALYSIS (CLINITEK) Routine 03/13/2024 11:56 AM SENIOR NET ENGINEER NONSTRESS TEST Routine 03/13/2024 10:21 AM SENIOR NET ENGINEER Obesity affecting , antepartum, unspecified obesity type [...] * CBC without differential (04/18/2024 12:08 PM SENIOR NET ENGINEER) WBC 7.0 3.8 - 9.9 K/cumm Hgb 14.4 11.9 - 15.5 g/dL [facility] Hct 44.4 35.6 - 45.5 % [facility] Plt 324 150 - 400 K/cumm [facility] MPV 10.2 9.1 - 12.3 fL [facility] RBC 4.87 3.90 - 5.20 M/cumm [facility] MCV 91.2 81.3 - 96.4 fL [facility] MCH 29.6 27.1 - 33.3 pg [facility] MCHC 32.4 32.3 - 35.7 g/dL [facility] RDW CV 12.8 11.1 - 14.9 % [facility] RDW SD 43.2 35.7 - 48.1 fL [facility] NRBC abs 0.00 0.00 - 0.01 K/cumm [facility] Blood 04/18/2024 12:0 8 PM SENIOR NET ENGINEER 04/18/2024 2:29 PM SENIOR NET ENGINEER Janeth Zacarias LAB BLOOD ORDERABLE S Final Result Performing Organization Address City/[facility]/ZIP Co de Phone Number [facility] [place] [address] * Ferritin (04/18/2024 12:08 PM SENIOR NET ENGINEER) Ferritin See Comment 13 - 150 ng/mL Comment:Credited; Hemolyzed Specimen Blood 04/18/2024 12:0 8 PM SENIOR NET ENGINEER 04/18/2024 2:29 PM SENIOR NET ENGINEER [facility] BLOOD ORDERABLE S Final Result Performing Organization Address City/[facility] Co de Phone Number [facility] [address] * Rh Immune Globulin Eval (04/04/2024 6:01 AM SENIOR NET ENGINEER) RhIg Administration 1 vial of Rh Immune Globulin (300 mcg dose) RhIg Eligible Yes, eligible [facility] Blood 04/04/2024 6:01 AM SENIOR NET ENGINEER 04/04/2024 6:12 AM SENIOR NET ENGINEER Narrative [facility] - 04/04/2024 6:25 AM SENIOR NET ENGINEER Number of weeks ?->20 weeks or greater antibody screen result:->Negative Rhogam given?->Given Date Given?->01/17/24 Number of vials requested:->1 Noemi Collins MD LAB BLOOD BANK TEST ORDERABLES Final Result Performing Organization Address City/[facility] Co de Phone Number [facility] [place] [address] * Bleed Screen (04/04/2024 6:01 AM SENIOR NET ENGINEER) Bleed Screen Negative Blood 04/04/2024 6:01 AM SENIOR NET ENGINEER 04/04/2024 6:12 AM SENIOR NET ENGINEER Noemi Collins MD LAB BLOOD BANK TEST ORDERABLES Final Result Performing Organization Address [facility] Co de Phone Number [facility] [address] * ABO/Rh (04/04/2024 6:01 AM SENIOR NET ENGINEER) ABO Rh O Negative Blood 04/04/2024 6:01 AM SENIOR NET ENGINEER 04/04/2024 6:12 AM SENIOR NET ENGINEER Noemi Collins MD LAB BLOOD BANK TEST ORDERABLES Final Result Performing Organization Address [facility] Co de Phone Number [facility] [address] * US Ob Limited (04/03/2024 7:59 AM SENIOR NET ENGINEER) Anatomical Region Laterality Modality Abdomen N/A Ultrasound Narrative 04/03/2024 7:59 AM SENIOR NET ENGINEER Vertex I have reviewed the images and agree with above. Noemi Collins MD Noemi Collins MD IMG OB US PROCEDURES Final Result * Epidural Block (04/03/2024 5:15 AM SENIOR NET ENGINEER) Narrative Kash Garcia MD - 04/03/2024 5:15 AM SENIOR NET ENGINEER Kash Garcia MD ? 04/03/2024 ??5:16 AM [...] of blood and test dose negative. Result [facility] Taylor Finley MD ANESTHESIA ORDERABLES Dilcia l Result * eGFR (04/02/2024 11:32 PM SENIOR NET ENGINEER) eGFR >90 >=60 mL/min/1. 73 m2 Comment: [...] reviewed 2021. Blood 04/02/2024 11:3 2 PM SENIOR NET ENGINEER 04/02/2024 11:45 PM SENIOR NET ENGINEER Sudha Abarca MD LAB BLOOD ORDERABLES Final Result Performing Organization Address [facility] de Phone Number [facility] Department [place] [address] * RPR Blood (04/02/2024 11:32 PM SENIOR NET ENGINEER) RPR Nonreactive Nonreactive Blood 04/02/2024 11:3 2 PM SENIOR NET ENGINEER 04/02/2024 11:45 PM SENIOR NET ENGINEER Sudha Abarca MD LAB MICROBIOLOGY - GE NERAL ORDERABLES Final Result Performing Organization Address [facility] de Phone Number [facility] [place] [address] * (ABNORMAL) CBC without differential (04/02/2024 11:32 PM SENIOR NET ENGINEER) [facility] WBC 9.1 3.8 - 9.9 K/cumm Hgb 11.8(L) 11.9 - 15.5 g/dL [facility] Hct 34.8(L) 35.6 - 45.5 % [facility] Plt 228 150 - 400 K/cumm [facility] MPV 10.1 9.1 - 12.3 fL [facility] RBC 3.87(L) 3.90 - 5.20 M/cumm [facility] MCV 89.9 81.3 - 96.4 fL [facility] MCH 30.5 27.1 - 33.3 pg [facility] MCHC 33.9 32.3 - 35.7 g/dL [facility] RDW CV 13.5 11.1 - 14.9 % [facility] RDW SD 44.2 35.7 - 48.1 fL [facility] NRBC abs 0.00 0.00 - 0.01 K/cumm [facility] Blood 04/02/2024 11:3 2 PM SENIOR NET ENGINEER 04/02/2024 11:45 PM SENIOR NET ENGINEER Sudha Abarca MD LAB BLOOD ORDERABLES Final Result Performing Organization Address City/[facility] Co de Phone Number [facility] [place] [address] * Type and screen (04/02/2024 11:32 PM SENIOR NET ENGINEER) [facility] Jorge, indirect Negative Comment:Patient has previous antibody history ABO Rh O Negative [facility] Blood 04/02/2024 11:3 2 PM SENIOR NET ENGINEER 04/03/2024 12:12 AM SENIOR NET ENGINEER Narrative [facility] - 04/03/2024 1:19 AM SENIOR NET ENGINEER Has the patient had Daratumumab or Isatuximab in the past 6 months?->Unknown Sudha Abarca MD LAB BLOOD BANK TEST O RDERABLES Final Result [facility] [place] [address] * (ABNORMAL) Comprehensive metabolic panel (04/02/2024 11:32 PM SENIOR NET ENGINEER) Sodium 138 135 - 145 mmol/L Potassium, pl 4.0 3.3 - 4.9 mmol/L [facility] Chloride 106 97 - 110 mmol/L [facility] CO2 22 22 - 32 mmol/L [facility] Anion gap 10 2 - 15 mmol/L [facility] BUN 6 6 - 25 mg/dL [facility] Creatinine 0.54(L) 0.60 - 1.10 mg/dL [facility] Glucose 103 70 - 199 mg/dL [facility] Comment: Interpretive Data Fasting glucose [...] 2022. Calcium 9.3 8.5 - 10.3 mg/dL [facility] Bilirubin, total 0.3 0.1 - 1.2 mg/dL [facility] Protein, pl 6.6 6.5 - 8.5 g/dL [facility] Albumin 3.6 3.5 - 5.0 g/dL [facility] Alk phos 110 40 - 130 Units/L [facility] ALT 21 7 - 45 Units/L [facility] AST 26 10 - 45 Units/L [facility] Blood 04/02/2024 11:3 2 PM SENIOR NET ENGINEER 04/02/2024 11:45 PM SENIOR NET ENGINEER Sudha Abarca MD LAB BLOOD ORDERABLES Final Result [facility] [place] [address] * nonstress test - (03/27/2024 11:18 AM SENIOR NET ENGINEER) Janeth Zacarias WHEEL BORER OB GYNE ORDERABLES Final Result * US Ob Follow Up (03/27/2024 9:15 AM SENIOR NET ENGINEER) Fetus# Fetus1 VIEWPOINT Estimated Weight 3,274 g&grams VIEWPOINT Placenta Details posterior, Previa-no, no placental masses VIEWPOINT Presentation Vertex VIEWPOINT Anatomical Region Laterality Modality Abdomen N/A Ultrasound 03/27/2024 9:16 AM SENIOR NET ENGINEER Impressions 03/27/2024 5:08 PM SENIOR NET ENGINEER IUP at 38w 0d who presents for [...] amniotic fluid volume is normal. Janeth Zacarias WHEEL BORER IMG OB US PROCEDURE S Final Result * POCT urinalysis (Clinitek) (03/23/2024 12:07 PM SENIOR NET ENGINEER) Color, ur, POC Yellow Yellow Clarity, UA, [...] tendency for uric acid stone formation. Source: [facility]. Last Revised Date: 05-18-2017 Protein, ur, POC Negative Negative [facility] Urobilinogen, ur, POC 0.2 mg/dL mg/dL [facility] Nitrites, ur, POC Negative Negative [facility] Leukocyte esterase, ur, POC Negative Negative [facility] Urine 03/23/2024 12:0 7 PM SENIOR NET ENGINEER 03/23/2024 12:07 PM SENIOR NET ENGINEER Emily Munguia MD LAB POCT ORDERABLES - DEVIC E Final Result Performing Organization Address [facility] Co de Phone Number [facility] [place] [address] * nonstress test - (03/20/2024 10:48 AM SENIOR NET ENGINEER) Janeth Zacarias WHEEL BORER OB GYNE ORDERABLES Final Result * Antibody identification (03/13/2024 2:58 PM SENIOR NET ENGINEER) Antibody ID 1 Passive Anti-D Blood 03/13/2024 2:58 PM SENIOR NET ENGINEER 03/13/2024 2:58 PM SENIOR NET ENGINEER Jennifer Chamberlain WHEEL BORER LAB BLOOD BANK TEST ORDE RABLES Final Result Performing Organization Address [facility] Co de Phone Number [facility] [place] [address] * (ABNORMAL) Group B streptococcal culture Vaginal/Rectal (03/13/2024 1:33 PM SENIOR NET ENGINEER) Report Final Report: Streptococcus agalactiae (Group B [...] allergic patients, please contact the laboratory at [phone] to request susceptibility testing * ??* ??* ??* ??* ??* ??* ??* ??* ??* ??* ??* ??* ??* ??* ??* ??* ??* ??* ??* (.) Organism STREPTOCOCCUS AGALACTIAE (GROUP B STREPTOCOCCI) [facility] Vaginal/Rectal 03/13/2024 1: 33 PM SENIOR NET ENGINEER 03/13/2024 2:20 PM SENIOR NET ENGINEER [facility]ative [facility] - 03/15/2024 1:08 PM SENIOR NET ENGINEER Testing performed by [facility] Microbiology [facility] ([phone]). Janeth Zacarias WHEEL BORER LAB MICROBIOLOGY - GENERAL ORDERABLES Final Result [facility] [place] [address] * eGFR (03/13/2024 12:13 PM SENIOR NET ENGINEER) eGFR >90 >=60 mL/min/1. 73 m2 Comment: [...] reviewed 2021. Blood 03/13/2024 12:1 3 PM SENIOR NET ENGINEER 03/13/2024 12:50 PM SENIOR NET ENGINEER Jennifre Chamberlain WHEEL BORER LAB BLOOD ORDERABLES Fin al Result Performing Organization Address [facility] de Phone Number [facility] Department of [place], [place] [id number] * Protein / creatinine ratio, urine, random (03/13/2024 12:13 PM SENIOR NET ENGINEER) Pathologist [facility] Protein, ur, quant 6.6 mg/dL Comment: Interpretive Data No reference range established. Current interpretive data was last revised 2018. Creatinine Ur 46.1 mg/dL [facility] Comment: Interpretive Data No reference range established. Current interpretive data was last revised 2018. Protein/creatinin e ratio 143.2 0.0 - 180.0 mg/g CR [facility] Urine 03/13/2024 12:1 3 PM SENIOR NET ENGINEER 03/13/2024 12:50 PM SENIOR NET ENGINEER Jennifer Chamberlain NP LAB URINE ORDERABLES Fin al Result Performing Organization Address [facility] de Phone Number [facility] [place] [address] * (ABNORMAL) CBC without differential (03/13/2024 12:13 PM SENIOR NET ENGINEER) Pathologist [facility] WBC 7.5 3.8 - 9.9 K/cumm Hgb 11.8(L) 11.9 - 15.5 g/dL [facility] Hct 35.2(L) 35.6 - 45.5 % [facility] Plt 255 150 - 400 K/cumm [facility] MPV 9.9 9.1 - 12.3 fL [facility] RBC 3.93 3.90 - 5.20 M/cumm [facility] MCV 89.6 81.3 - 96.4 fL [facility] MCH 30.0 27.1 - 33.3 pg [facility] MCHC 33.5 32.3 - 35.7 g/dL [facility] RDW CV 13.2 11.1 - 14.9 % [facility] RDW SD 43.9 35.7 - 48.1 fL [facility] [facility] NRBC abs 0.00 0.00 - 0.01 K/cumm [facility] Blood 03/13/2024 12:1 3 PM SENIOR NET ENGINEER 03/13/2024 12:50 PM SENIOR NET ENGINEER Jennifer Chamberlain NP LAB BLOOD ORDERABLES Fin al Result Performing Organization Address [facility]/ZIP Co de Phone Number [facility] [place] [address] * (ABNORMAL) Type and screen (03/13/2024 12:13 PM SENIOR NET ENGINEER) Jorge, indirect Positive(A) ABO Rh O Negative [facility] Blood 03/13/2024 12:1 3 PM SENIOR NET ENGINEER 03/13/2024 1:10 PM SENIOR NET ENGINEER Narrative [facility] - 03/13/2024 2:58 PM SENIOR NET ENGINEER Has the patient had Daratumumab or Isatuximab in the past 6 months?->Unknown Jennifer Chamberlain NP LAB BLOOD BANK TEST ORDE RABLES Final Result [facility] [place] [address] * Uric acid (03/13/2024 12:13 PM SENIOR NET ENGINEER) Uric acid 3.3 2.5 - 7.0 mg/dL Blood 03/13/2024 12:1 3 PM SENIOR NET ENGINEER 03/13/2024 12:50 PM SENIOR NET ENGINEER Jennifer Chamberlain WHEEL BORER LAB BLOOD ORDERABLES Fin al Result [facility] [place] [address] * (ABNORMAL) Comprehensive metabolic panel (03/13/2024 12:13 PM SENIOR NET ENGINEER) Pathologist [facility] Sodium 138 135 - 145 mmol/L Potassium, pl 4.1 3.3 - 4.9 mmol/L [facility] Chloride 103 97 - 110 mmol/L [facility] CO2 25 22 - 32 mmol/L [facility] Anion gap 10 2 - 15 mmol/L [facility] BUN 6 6 - 25 mg/dL [facility] Creatinine 0.46(L) 0.60 - 1.10 mg/dL [facility] Glucose 76 70 - 199 mg/dL [facility] Comment: Interpretive Data Fasting glucose [...] 2022. Calcium 9.5 8.5 - 10.3 mg/dL [facility] Bilirubin, total 0.3 0.1 - 1.2 mg/dL [facility] Protein, pl 6.9 6.5 - 8.5 g/dL [facility] Albumin 3.7 3.5 - 5.0 g/dL [facility] Alk phos 106 40 - 130 Units/L [facility] ALT 24 7 - 45 Units/L [facility] AST 19 10 - 45 Units/L [facility] Blood 03/13/2024 12:1 3 PM SENIOR NET ENGINEER 03/13/2024 12:50 PM SENIOR NET ENGINEER Jennifer Chamberlain WHEEL BORER LAB BLOOD ORDERABLES Fin al Result Performing Organization Address City/[facility] Co de Phone Number [facility] Department [place] [address] * POCT urinalysis (Clinitek) (03/13/2024 11:56 AM SENIOR NET ENGINEER) Color, ur, POC Yellow Yellow Clarity, UA, POC Clear Clear [facility] Glucose, ur, POC Negative Negative [facility] Bilirubin, ur, POC Negative Negative [facility] Ketones, ur, POC Negative Negative [facility] Specific gravity, ur, POC 1.020 1.010 - 1.[address] [facility] Blood, ur, POC Negative Negative [facility] pH, ur, POC 7.0 [facility] Comment: Interpretive Data Urine pH is affected by diet, medications, systemic acid-base disturbances, and renal tubular function. pH may affect urinary stone formation. For example, urine pH below 6.0 may help reduce the tendency for calcium phosphate stones and pH greater than 6.0 may reduce the tendency for uric acid stone formation. Source: [facility]. Last Revised Date: 05-18-2017 Protein, ur, POC Negative Negative [facility] Urobilinogen, ur, POC 0.2 mg/dL mg/dL [facility] Nitrites, ur, POC Negative Negative [facility] Leukocyte esterase, ur, POC Negative Negative [facility] Urine 03/13/2024 11:5 6 AM SENIOR NET ENGINEER 03/13/2024 11:56 AM SENIOR NET ENGINEER us Mook Villanueva MD LAB POCT ORDERABL ES - DEVICE Final Result Performing Organization Address City/[facility]/ZIP Co de Phone Number [facility] [place] [address] * nonstress test - (03/13/2024 10:21 AM SENIOR NET ENGINEER) us Janeth Zacarias WHEEL BORER OB GYNE ORDERABLES Final Result * nonstress [...] GENERAL ORDERABLES Final Result Performing Organization Address City/[facility]/[place] [address] * RPR Blood (02/28/2024 11:14 AM CDT) Pathologist [facility] RPR Nonreactive Nonreactive Blood 02/28/2024 11:1 4 AM CDT 02/28/2024 11:47 AM CDT Janeth Zacarias NP LAB MICROBIOLOGY - GENERAL ORDERABLES [place] [address] * CBC without differential (02/28/2024 11:14 AM CDT) Pathologist [facility] WBC 8.4 3.8 - 9.9 K/cumm Hgb 12.1 11.9 - 15.5 g/dL [facility] Hct 35.8 35.6 - 45.5 % [facility] Plt 237 150 - 400 K/cumm [facility] MPV 9.9 9.1 - 12.3 fL [facility] RBC 3.91 3.90 - 5.20 M/cumm [facility] MCV 91.6 81.3 - 96.4 fL [facility] MCH 30.9 27.1 - 33.3 pg [facility] MCHC 33.8 32.3 - 35.7 g/dL [facility] RDW CV 13.4 11.1 - 14.9 % [facility] RDW SD 44.9 35.7 - 48.1 fL [facility] NRBC abs 0.00 0.00 - 0.01 K/cumm [facility] Blood 02/28/2024 11:1 4 AM CDT 02/28/2024 11:47 AM CDT us Janeth Zacarias WHEEL BORER LAB BLOOD ORDERABLE S Final Result [facility] [place] [address] * US Ob Follow Up (02/28/2024 10:02 [...] tone andamniotic fluid volume. us Janeth Zacarias WHEEL BORER IMG OB US PROCEDURE S Final Result * Hepatitis C antibody Blood (09/18/2023) SCRIBED HCV ab non-reacti ve Blood us Janett Robles NP LAB MICROBIOLOGY - GENERAL O RDERABLES Final Result from Last 3 Months or Most Recently Relevant to Health Maintenance Insurance [facility] [employer] P[employer] [facility] Advance Directives For more information, please contact: [phone] * Full Code (Latest Code Status on [...] 1:28 PM 12/16/2019 8:31 PM Care Teams Senior Net Engineer Relationship Specialty Start Date End Date No, Physician PCP - General 12/03/23 Jarred Roy MD [address] [facility] [address] [address] 01/30/19 Elma Echevarria NP [address] [facility] [address] [address] Nurse Practitioner General Surgery 12/16/19
--- OUTSIDE RECORDS SUMMARY | 2024-05-10 20:50 | XMS_ITS | Encounter Summary ---
Author Organization [facility] Healthcare Address [address] [place] [address] Care Team Providers Care Smoking Pipe Driller And Threader Name Role Phone Jarred Roy MD Unavailable [phone] EyersElma NP Unavailable No, Physician Primary Care Provider [phone] Reason for Visit * Reason Comments Problem Labial swelling, wall scraper mping Encounter Details Date Type Department Care Team (Latest Contact Info) Description 03/23/2024 11:11 AM INFORMATION DEVELOPER - 03/23/2024 1:21 PM INFORMATION DEVELOPER Hospital Encounter [address] [address] Garret Victor MD [address] [place] [address] [place] [address] [place] [address] Medina Fitzpatrick MD [facility] [address] [id number] Discharge Disposition: Discharge to home or self [...] often do you attend chur ch or gnosticism services? Never 07/21/2021 Do you belong to [...] place to sleep or slept in a snf (including now)? No 07/21/2021 [place] Depression Scale Answer Date Recorded [place] Depression Scale Total 6 09/03/2021 The thought [...] file Legal Sex Female 11:28 PM INFORMATION DEVELOPER Gender Identity Not on file Sexual Orientation Not on file documented as of this encounter Last Filed Vital Signs Vital Sign Reading Time Taken Comments Blood Pressure 124/72 03/23/2024 11:35 AM INFORMATION DEVELOPER Pulse 86 03/23/2024 11:35 AM INFORMATION DEVELOPER Temperature 36.7 ??C (98.1 ??F) 03/23/2024 1 1:35 AM INFORMATION DEVELOPER Respiratory Rate 20 03/23/2024 11:3 5 AM INFORMATION DEVELOPER Oxygen Saturation 99% 03/23/2024 11: 35 AM INFORMATION DEVELOPER Inhaled Oxygen Concentration - - Weight 148.9 kg (328 lb 3.2 oz) 024 11:35 AM INFORMATION DEVELOPER Height 165.1 cm (5' 5 ) 03/23/2024 11:3 5 AM INFORMATION DEVELOPER Body Mass Index 54.62 03/23/2024 11:35 AM INFORMATION DEVELOPER documented in this encounter Discharge Instructions * Discharge Instr - Activity* Agustina Orona, RN - 03/23/2024 1:11 PM INFORMATION DEVELOPER Follow up with OB at next scheduled appt Take medications as prescribed Labor precautions discussed RMATION DEVELOPER * Discharge Instr - Diet* Agustina Orona, RN - 03/23/2024 1:11 PM INFORMATION DEVELOPER Regular diet, please drink plenty of water 8-10 glasses a day RMATION DEVELOPER documented in this encounter Medications at Time [...] Swelling Estimated Date of Delivery: 04/10/24 Provider: SONLA HPI: Mary Singh is a 24 y.o. [...] Hemorrhage Name: LICONA,GIRLTAYLOR Apgar1: 8 Apgar5: 9 APPLICATION TESTER History: Patient's last menstrual period was 07/05/2023 [...] IDCOOMB Positive (A) 03/13/2024 SCRINDANTIGL negative 09/18/2023 [id number] Nonreactive 02/28/2024 [id number] Nonreactive 09/18/2023 LABRPR Nonreactive 02/28/2024 SCRRPR Non-Reactive 09/18/2023 SCRRUBELIGG Immune 09/18/2023 GC negative 09/18/2023 Assessment and Plan # MWB -NO current abdominal pain -No labial swelling # FWB -reactive monitoring Plan discussed with Dr. Fitzpatrick. Return precautions given. Follow up scheduled 03/27. Toma Wynne NP 03/23/24 [facility] Fellow Attestation The above provider saw and examined the patient, we discussed their findings, and I am in agreementwith the plan. I did not personally examine the patient. I reviewed the tracing and it was reactive and reassuring. Medina Fitzpatrick MD, MPH Cosigned by Barbara Turner MD at 03/27/2024 2:26 PM INFORMATION DEVELOPER RMATION DEVELOPER RMATION DEVELOPER RMATION DEVELOPER documented in this encounter Procedure Notes * [...] Barbara Turner MD at 03/27/2024 2:25 PM INFORMATION DEVELOPER RMATION DEVELOPER RMATION DEVELOPER RMATION DEVELOPER documented in this encounter Nursing Notes * Agustian Orona, RN - 03/23/2024 1:20 PM CST Pt cleared for d/c home. Pt given return precautions and verbalized an understanding. Pt in stable condition and ambulated to her vehicle. RMATION DEVELOPER documented in this encounter Plan of Treatment Not on file documented as of this encounter Procedures Procedure Name Priority Date/Time Associated Diagnosis Comments POCT URINALYSIS (CLINITEK) Routine 03/23/2024 12:07 PM INFORMATION DEVELOPER documented in this encounter Results * POCT urinalysis (Clinitek) (03/23/2024 12:07 PM INFORMATION DEVELOPER) Color, ur, POC Yellow Yellow Clarity, UA, [...] stone formation. Source: [facility] [employer]. Last Revised Date: 05-18-2017 Protein, ur, POC Negative Negative [facility] Urobilinogen, ur, POC 0.2 mg/dL mg/dL [facility] Nitrites, ur, POC Negative Negative [facility] Leukocyte esterase, ur, POC Negative Negative [facility] Urine 03/23/2024 12:0 7 PM INFORMATION DEVELOPER 03/23/2024 12:07 PM INFORMATION DEVELOPER us Emily Munguia MD LAB POCT ORDERABLES - DEVIC E Final Result [facility] One [facility] Department [place] [address] documented in this encounter Visit Diagnoses Not on filedocumented in this encounter Orders Discharge Count Last Ordered Date First Orde red Date DISCHARGE PATIENT 1 03/23/2024 documented in this encounter Care Teams Smoking Pipe Driller And Threader Relationship Specialty Start Date End Date No, Physician PCP - General 12/03/23 Jarred Roy MD [address] [address] 01/30/19 Elma Echevarrai NP [address] [address] Nurse Practitioner General Surgery 12/16/19 documented as of this encounter
--- OUTSIDE RECORDS SUMMARY | 2024-05-10 20:50 | XMS_ITS | Encounter Summary ---
Author Organization [facility] Healthcare Address [address] [place] [address] Care Team Providers Care Concrete Worker Name Role Phone Jarred Roy MD Unavailable [phone] EyersElma NP Unavailable No, Physician Primary Care Provider [phone] Encounter Details Date Type Department Care Team (Late st Contact Info) Description 02/05/2024 11:59 PM CDT Anesthesia Event [facility] Anesthesia [address] [place], [place] [id number] Andra Cisse MD [address] [place] [address] Anesthesia Record Procedure Summary Procedure Name Responsible [...] often do you attend chur ch or yazdanism services? Never 07/21/2021 Do you [...] in a fpc (including now)? No 07/21/2021 [place] Depression Scale Answer Date Recorded [place] Depression Scale Total 6 09/03/2021 The thought [...] file Legal Sex Female 11:28 PM SCRAP HOOKER Gender Identity Not on file Sexual Orientation [...] Iron deficiency 11/19/2018 Migraine 11/19/2018 Astigmatism 09/18/2018 [id number] spots 09/18/2018 Vitamin D deficiency 09/18/2018 Chronic [...] on filedocumented in this encounter Care Teams Concrete Worker Relationship Specialty Start Date End Date No, Physician PCP - General 12/03/23 Jarred Roy MD 2 [facility] [address] [address] 01/30/19 EyeElma charles NP [address] [address] Nurse Practitioner General Surgery 12/16/19 documented as of this encounter
--- OUTSIDE RECORDS SUMMARY | 2024-05-10 20:50 | XMS_ITS | Encounter Summary ---
Author Organization [facility] Address [address] [place] [address] Phone Care Team Providers Care Polytechnic Teacher Name Role Phone Jarred Roy MD Unavailable [phone] Elma Echevarria NP Unavailable No, Physician Primary Care Provider [phone] Reason for Referral * (Routine) - Pending Review Specialty Diagnoses / Procedures Referred By Loyd t Referred To Contact Diagnoses Obesity affecting , antepartum, unspecified obesity type Procedures nonstress test - Janeth Zacarias NP [address] [facility] [phone] [place] [address] Phone: tel: fax: [facility] (All Locations) Referral ID Status Reason Start Date Expiration Date V isits Requested Visits Authorized [id number] Pending Review 03/27/2024 04/26/2025 1 1 LIANCE VICE PRESIDENT Reason for Visit * Reason Comments Non-stress Test Encounter Details Date Type Department Care Team (Latest Contact Info) Description 03/27/2024 10:30 AM COMPLIANCE VICE PRESIDENT Clinical Support [facility] Obstetrics and Gynecology [address] [place] [address] Obesity affecting , antepartum, unspecified obesity type [...] often do you attend chur ch or pentecostal services? Never 07/21/2021 Do you belong to [...] in a penitentiary (including now)? No 07/21/2021 [place] Depression Scale Answer Date Recorded [place] Depression Scale Total 6 09/03/2021 The thought [...] on file Legal Sex Female 11:28 PM COMPLIANCE VICE PRESIDENT Gender Identity Not on file Sexual Orientation Not on file documented as of this encounter Last Filed Vital Signs Vital Sign Reading Time Taken Comments Blood Pressure 130/78 03/27/2024 11:17 AM COMPLIANCE VICE PRESIDENT Pulse 86 03/27/2024 11:17 AM COMPLIANCE VICE PRESIDENT Temperature - - Respiratory Rate - - Oxygen Saturation - - Inhaled Oxygen Concentration - - Weight - - Height - - Body Mass Index - - documented in this encounter Plan of Treatment Not on file documented as of this encounter Procedures Procedure Name Priority Date/Time Associated Diagnosis Comments NONSTRESS TEST Routine 03/27/2024 11:18 AM COMPLIANCE VICE PRESIDENT Obesity affecting , antepartum, unspecified obesity type documented in this encounter Results * nonstress test - (03/27/2024 11:18 AM COMPLIANCE VICE PRESIDENT) Janeth Zacarias RISK PREVENTION ENGINEER OB GYNE ORDERABLES Final Result documented in this encounter Visit Diagnoses Diagnosis Obesity affecting , antepartum, unspecified obesity type- Primary documented in this encounter Care Teams Polytechnic Teacher Relationship Specialty Start Date End Date No, Physician PCP - General 12/03/23 Jarred Roy MD 2 [place] [address] 01/30/19 EyeElma charles NP 2 [facility] [address] [address] Nurse Practitioner General Surgery 12/16/19 documented as of this encounter
--- OUTSIDE RECORDS SUMMARY | 2024-05-10 20:50 | XMS_ITS | Encounter Summary ---
Author Organization [facility] Healthcare Address [address] [place] [address] Care Team Providers Care Parking Lot Spotter Name Role Phone Jarred Roy MD Unavailable [phone] Elma Echevarria NP Unavailable No, Physician Primary Care Provider [phone] Reason for Referral * Diagnostic Imaging (Routine) - Closed Specialty Diagnoses / Procedures Referred By Contlazarus t Referred To Contact Diagnoses Obesity affecting in first trimester, unspecified obesity type Procedures US Ob Follow Up Janeth Zacarias NP [address] [facility] [phone] [place] [address] Phone: tel: fax: [facility] (All Locations) Referral ID Status Reason Start Date Expiration Date Visits Re quested Visits Authorized [id number] Closed 03/27/2024 04/26/2025 1 1 ANICAL DESIGN ENGINEER PRODUCTS * Diagnostic Imaging (Routine) - Closed Specialty Diagnoses / Procedures Referred By Contlazarus t Referred To Contact Diagnoses Obesity affecting in first trimester, unspecified obesity type Procedures US Ob Follow Up Janeth Zacarias NP [address] [facility] [phone] [place] [address] Phone: tel: fax: [facility] (All Locations) Referral ID Status Reason Start Date Expiration Date Visits Re quested Visits Authorized [id number] Closed 03/27/2024 04/26/2025 1 1 ANICAL DESIGN ENGINEER PRODUCTS Reason for Visit * Diagnostic Imaging (Routine) - Pending Review Specialty Diagnoses / Procedures Referred By Contac t Referred To Contact Diagnoses Obesity affecting in first trimester, unspecified obesity type Procedures US Ob Follow Up Janeth Zacarias NP [address] [facility] [phone] [place] [address] Phone: tel: fax: [facility] (All Locations) Referral ID Status Reason Start Date Expiration Date V isits Requested Visits Authorized [id number] Pending Review 01/03/2024 02/01/2025 1 1 Encounter Details Date Type Department Care Team (Latest Contact Info) Description 03/27/2024 9:08 AM MECHANICAL DESIGN ENGINEER PRODUCTS - 03/27/2024 11:59 PM MECHANICAL DESIGN ENGINEER PRODUCTS Hospital Encounter [facility] - Ultrasound [address] [facility] 7th Floor, [address] [place] [address] Obesity affecting in first trimester, [...] in a jail (including now)? No 07/21/2021 [place] Depression Scale Answer Date Recorded [place] Depression Scale Total 6 09/03/2021 The thought [...] file Legal Sex Female 11:28 PM MECHANICAL DESIGN ENGINEER PRODUCTS Gender Identity Not on file Sexual Orientation [...] Read Routine (OP Routine) 03/27/2024 9:15 AM MECHANICAL DESIGN ENGINEER PRODUCTS Obesity affecting in first trimester, unspecified obesity type documented in this encounter Results * US Ob Follow Up (03/27/2024 9:15 AM MECHANICAL DESIGN ENGINEER PRODUCTS) Fetus# Fetus1 VIEWPOINT Estimated Weight 3,274 g&grams VIEWPOINT Placenta Details posterior, Previa-no, no placental masses VIEWPOINT Presentation Vertex VIEWPOINT Anatomical Region Laterality Modality Abdomen N/A Ultrasound 03/27/2024 9:16 AM MECHANICAL DESIGN ENGINEER PRODUCTS Impressions 03/27/2024 5:08 PM MECHANICAL DESIGN ENGINEER PRODUCTS IUP at 38w 0d who presents for [...] amniotic fluid volume is normal. Janeth Zacarias STRETCHER HELPER IMG OB US PROCEDURE S Final Result documented in this encounter Visit Diagnoses Diagnosis Obesity affecting in first trimester, unspecified obesity type- Primary documented in this encounter Care Teams Parking Lot Spotter Relationship Specialty Start Date End Date No, Physician PCP - General 12/03/23 Jarred Roy MD [address] [facility] [address] [address] 01/30/19 Elma Echevarria NP [address] [facility] [address] [address] Nurse Practitioner General Surgery 12/16/19 documented as of this encounter
--- OUTSIDE RECORDS SUMMARY | 2024-05-10 20:50 | XMS_ITS | Encounter Summary ---
Author Organization [facility] Address [address] [place] [address] Phone Care Team Providers Care Beet Topper Name Role Phone Jarred Roy MD Unavailable [phone] Elma Echevarria NP Unavailable No, Physician Primary Care Provider [phone] Reason for Visit * Reason Comments High Risk Gestation Encounter Details Date Type Department Care Team (Late st Contact Info) Description 03/20/2024 10:40 AM COMMUNITY CENTER COORDINATOR Office Visit [facility] Maternal- Medicine [facility] 7th Floor [address] [place] [address] Elevated blood pressure reading without [...] often do you attend chur ch or latter-day services? Never 07/21/2021 Do you belong to any clubs o r organizations such as zoroastrian groups, unions, fraternal or athletic groups, or [...] in a mcc (including now)? No 07/21/2021 [place] Depression Scale Answer Date Recorded [place] Depression Scale Total 6 09/03/2021 The thought [...] on file Legal Sex Female 11:28 PM COMMUNITY CENTER COORDINATOR Gender Identity Not on file Sexual Orientation Not on file documented as of this encounter Last Filed Vital Signs Vital Sign Reading Time Taken Comments Blood Pressure 129/77 03/20/2024 10:18 AM COMMUNITY CENTER COORDINATOR Pulse 98 03/20/2024 10:18 AM COMMUNITY CENTER COORDINATOR Temperature - - Respiratory Rate - - Oxygen Saturation 99% 03/20/2024 10: 18 AM COMMUNITY CENTER COORDINATOR Inhaled Oxygen Concentration - - Weight 147.5 kg (325 lb 3.2 oz) 024 10:18 AM COMMUNITY CENTER COORDINATOR Height - - Body Mass Index 54.12 03/13/2024 11:42 AM COMMUNITY CENTER COORDINATOR documented in this encounter Progress Notes * [...] email sent 12/12 Referring Provider: Janett Robles [phone] [] or Medicare Insurance [x] Dating Criteria: [...] makes. She is considering exclusively pumping. [x] Paving Contractor: [x] PP Depression Discussed: Labor/PEC/FKC precautions reviewed. Reviewed the importance of presenting to her closest hospital in the case of an emergency for evaluation and if necessary and safe will be transferred to [facility]. [facility] [employer] UNITY CENTER COORDINATOR documented in this encounter Plan of Treatment [...] trimester documented in this encounter Care Teams Beet Topper Relationship Specialty Start Date End Date No, Physician PCP - General 12/03/23 Jarred Roy MD [address] [address] 01/30/19 Elma Echevarria NP [address] [address] Nurse Practitioner General Surgery 12/16/19 documented as of this encounter
--- OUTSIDE RECORDS SUMMARY | 2024-05-10 20:50 | XMS_ITS | Encounter Summary ---
Author Organization [facility] Address [address] [place] [address] Phone Care Team Providers Care Work Distributor Name Role Phone Jarred Roy MD Unavailable [phone] Elma Echevarria NP Unavailable No, Physician Primary Care Provider [phone] Reason for Visit * Reason Comments High Risk Gestation Encounter Details Date Type Department Care Team (Late st Contact Info) Description 01/31/2024 9:45 AM CDT Office Visit [facility] Maternal- Medicine [facility] Health 7th Floor [address] [place] [address] Elevated blood pressure reading without [...] any clubs o r organizations such as confucianism groups, unions, fraternal or athletic groups, or [...] in a intermediate (including now)? No 07/21/2021 [place] Depression Scale Answer Date Recorded [place] Depression Scale Total 6 09/03/2021 The thought [...] on file Legal Sex Female 11:28 PM AIR CONDITIONING ENGINEER Gender Identity Not on file Sexual [...] this encounter Progress Notes * Janeth Zacarias, RIG OPERATOR - 01/31/2024 9:45 AM CDT MFM Return [...] high-risk , first trimester Overview [x] Full [facility] Care as of 12/13/2023 [x] [employer] email sent 12/12 Referring Provider: Janett Robles [phone] [] or Medicare Insurance [x] Dating Criteria: [...] makes. She is considering exclusively pumping. [x] Face Worker: [] PP Depression Discussed: Relevant Orders Flu [...] 01/31/2024 documented in this encounter Care Teams Work Distributor Relationship Specialty Start Date End Date No, Physician PCP - General 12/03/23 Jarred Roy MD [address] [place] [place] [address] [address] 01/30/19 Elma Echevarria NP [address] [place] [address] [address] Nurse Practitioner General Surgery 12/16/19 documented as of this encounter
--- OUTSIDE RECORDS SUMMARY | 2024-05-10 20:50 | XMS_ITS | Encounter Summary ---
Author Organization [facility] Healthcare Address [address] [place] [address] Care Team Providers Care Bread Slicer Machine Name Role Phone Jarred Roy MD Unavailable [phone] Elma Echevarria NP Unavailable No, Physician Primary Care Provider [phone] Encounter Details Date Type Department Care Team (Late st Contact Info) Description 04/24/2024 Telephone Obstetrics and Gynecology Clinic [address] [facility] Health 3rd Floor [address] [place] [address] Magui Vail Social History Tobacco Use Types Packs/Day Years Used Date Smoking Tobacco: Never Smokeless Tobacco: Never Alcohol Use Standard Drinks/Week Comments No 0 (1 standard drink = 0.6 oz pur e alcohol) [facility] Utilities Answer Date Recorded In the past 12 months has [employer], gas, oil, or water [employer] threatened to shut off services in your [...] How often do you attend chur or zoroastrianism services? Never 04/04/2024 Do you belong to [...] a senior care (including now)? No 07/21/2021 [place] Depression Scale Answer Date Recorded [place] Depression Scale Total 4 04/18/2024 The thought [...] any time in the past 12 [facility], were you homeless or living in [...] on file Legal Sex Female 11:28 PM KNIFE EDGER Gender Identity Not on file Sexual Orientation Not on file documented as of this encounter Miscellaneous Notes * Telephone Encounter - Magui Vail - 04/24/2024 10:02 AM CST Left message for pt to return call to clinic. When pt calls please schedule: ----- Message from Nurse Blanca Nunez sent at 04/22/2024 2:25 PM KNIFE EDGER ----- Regarding: FW: BTL Please schedule pt: With: resident Appointment Type: IGY Reason: Surgical Consent/ Salpingectomy When: Next Available Recovery Manager: SO PA: NA E EDGER E EDGER documented in this encounter Plan of Treatment Not on file documented as of this encounter Visit Diagnoses Not on filedocumented in this encounter Care Teams Bread Slicer Machine Relationship Specialty Start Date End Date No, Physician PCP - General 12/03/23 Jarred Roy MD [address] [place] [address] [address] 01/30/19 Elma Echevarria NP [address] [place] [address] [address] Nurse Practitioner General Surgery 12/16/19 documented as of this encounter
--- OUTSIDE RECORDS SUMMARY | 2024-05-10 20:50 | XMS_ITS | Encounter Summary ---
Author Organization [facility] Address [address] [place] [address] Phone Care Team Providers Care Straddle Carrier Operator Name Role Phone Jarred Roy MD Unavailable Elma Echevarria NP Unavailable No, Physician Primary Care Provider [phone] Encounter Details Date Type Department Care Team (Late st Contact Info) Description 02/14/2024 Orders Only [facility] Maternal- Medicine [address] [facility] Health 7th Floor [address] [place] [address] Breanna Quijano RN Social History [...] in a jail (including now)? No 07/21/2021 [place] Depression Scale Answer Date Recorded [place] Depression Scale Total 6 09/03/2021 The thought [...] on file Legal Sex Female 11:28 PM METALIZING MACHINE OPERATOR AUTOMATIC Gender Identity Not on file Sexual Orientation [...] on filedocumented in this encounter Care Teams Straddle Carrier Operator Relationship Specialty Start Date End Date No, Physician PCP - General 12/03/23 Jarred Roy MD [address] [address] 01/30/19 Elma Echevarria NP [address] [address] Nurse Practitioner General Surgery 12/16/19 documented as of this encounter
--- OUTSIDE RECORDS SUMMARY | 2024-05-10 20:50 | XMS_ITS | Encounter Summary ---
Author Organization [facility] Address [address] [place] [address] Phone Care Team Providers Care Shower Attendant Name Role Phone Jarred Roy MD Unavailable [phone] Elma Echevarria NP Unavailable No, Physician Primary Care Provider [phone] Reason for Visit * Reason Comments High Risk Gestation Encounter Details Date Type Department Care Team (Late st Contact Info) Description 02/28/2024 10:45 AM CDT Office Visit [facility] Maternal- Medicine [facility] Health 7th Floor [address] [place] [address] Elevated blood pressure reading without [...] often do you attend chur ch or amish services? Never 07/21/2021 Do you belong to any clubs o r organizations such as alevism groups, unions, fraternal or athletic groups, or [...] in a alf (including now)? 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 She is considering exclusively pumping. [x] Licensed Guide: [] PP Depression Discussed: Relevant Orders CBC [...] GENERAL ORDERABLES Final Result Performing Organization Address City/[facility] Co de Phone Number [facility] [place] [address] * HIV 1/2 Antibody plus p24 Antigen [...] GENERAL ORDERABLES Final Result Performing Organization Address City/[facility]/ZIP Co de Phone Number [facility] [place] [address] * CBC without differential (02/28/2024 11:14 AM CDT) WBC 8.4 3.8 - 9.9 K/cumm Hgb 12.1 11.9 - 15.5 g/dL [facility] Hct 35.8 35.6 - 45.5 % [facility] Plt 237 150 - 400 K/cumm [facility] MPV 9.9 9.1 - 12.[address] [facility] RBC 3.91 3.90 - 5.20 M/cumm [facility] MCV 91.6 81.3 - 96.[address] [facility] MCH 30.9 27.1 - 33.[address] [facility] MCHC 33.8 32.3 - 35.7 g/dL [facility] RDW CV 13.4 11.1 - 14.9 % [facility] RDW SD 44.9 35.7 - 48.[address] [facility] NRBC abs 0.00 0.00 - 0.01 K/cumm [facility] Blood 02/28/2024 11:1 4 AM CDT 02/28/2024 11:47 AM CDT us Janeth Zacarias CHOKE REAMER LAB BLOOD ORDERABLE S Final Result [facility] [address] [facility] [place] [address] documented in this encounter Visit Diagnoses Diagnosis Elevated blood pressure reading without diagnosis of hypertension- Primary Family history of spina bifida Family history of congenital anomalies History of hemorrhage, currently in first trimester Obesity affecting in first trimester, unspecified obesity type headache in second trimester Proteinuria complicating in first trimester Supervision of high-risk , first trimester documented in this encounter Care Teams Shower Attendant Relationship Specialty Start Date End Date No, Physician PCP - General 12/03/23 Jarred Roy MD 2 [place] [address] 01/30/19 EyeElma charles NP 2 [facility] [address] [address] Nurse Practitioner General Surgery 12/16/19 documented as of this encounter
--- OUTSIDE RECORDS SUMMARY | 2024-05-10 20:50 | XMS_ITS | Encounter Summary ---
Author Organization [facility] Address [address] [place] [address] Phone Care Team Providers Care Liberal Arts Dean Name Role Phone Jarred Roy MD Unavailable [phone] Elma Echevarria NP Unavailable No, Physician Primary Care Provider [phone] Reason for Referral * (Routine) - Pending Review Specialty Diagnoses / Procedures Referred By Loyd medrano Referred To Contact Diagnoses Obesity affecting , antepartum, unspecified obesity type Procedures nonstress test - Janeth Zacarias NP [address] [facility] [id number] [place] [address] Phone: tel: fax: [facility] (All Locations) Referral ID Status Reason Start Date Expiration Date V isits Requested Visits Authorized [id number] Pending Review 03/06/2024 04/05/2025 1 1 Reason for Visit * Reason Comments Non-stress Test Encounter Details Date Type Department Care Team (Latest Contact Info) Description 03/06/2024 9:30 AM CDT Clinical Support [facility] Obstetrics and Gynecology [address] [facility] 7th [place] [address] Obesity affecting , antepartum, unspecified obesity type [...] often do you attend chur ch or oriental orthodox services? Never 07/21/2021 Do you belong [...] in a penitentiary (including now)? 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
--- OUTSIDE RECORDS SUMMARY | 2024-05-10 20:50 | XMS_ITS | Encounter Summary ---
Author Organization [facility] Healthcare Address [address] [place] [address] Care Team Providers Care Automotive Electrical Fitter Name Role Phone Jarred Roy MD Unavailable [phone] EyersElma NP Unavailable No, Physician Primary Care Provider [phone] Encounter Details Date Type Department Care Team (Late st Contact Info) Description 02/28/2024 11:05 AM CDT Lab [facility] Outpatient Health [address] [facility] [place] [address] Supervision of high-risk , first [...] often do you attend chur ch or denominational services? Never 07/21/2021 Do you belong to any clubs o r organizations such as spiritism groups, unions, fraternal or athletic groups, or [...] a senior care (including now)? No 07/21/2021 [place] Depression Scale [...] on file Legal Sex Female 11:28 PM PERSONNEL RECRUITER Gender Identity Not on file Sexual [...] K/cumm Hgb 12.1 11.9 - 15.5 g/dL [facility] Hct 35.8 35.6 - 45.5 % [facility] Plt 237 150 - 400 K/cumm [facility] MPV 9.9 9.1 - 12.3 fL [facility] RBC 3.91 3.90 - 5.20 M/cumm [facility] MCV 91.6 81.3 - 96.4 fL [facility] MCH 30.9 27.1 - 33.3 pg [facility] MCHC 33.8 32.3 - 35.7 g/dL [facility] RDW CV 13.4 11.1 - 14.9 % [facility] RDW SD 44.9 35.7 - 48.1 fL [facility] NRBC abs 0.00 0.00 - 0.01 K/cumm [facility] Blood 02/28/2024 11:1 4 AM CDT 02/28/2024 11:47 AM CDT us Janeth Zacarias ASSOCIATE SALES MANAGER LAB [place]LOOD [place] [address] * HIV 1/2 Antibody plus p24 Antigen [...] GENERAL ORDERABLES Final Result Performing Organization Address City/[facility] [place] [address] * RPR Blood (02/28/2024 11:14 AM CDT) RPR Nonreactive Nonreactive Blood 02/28/2024 11:1 4 AM CDT 02/28/2024 11:47 AM CDT Janeth Zacarias NP LAB MICROBIOLOGY - GENERAL ORDERABLES Final Result Performing Organization Address City/[facility] [place] [address] documented in this encounter Visit Diagnoses Diagnosis Supervision of high-risk , first trimester documented in this encounter Care Teams Automotive Electrical Fitter Relationship Specialty Start Date End Date No, Physician PCP - General 12/03/23 Jarred Roy MD [address] [address] 01/30/19 Elma Echevarria NP 2 [facility] [address] [address] Nurse Practitioner General Surgery 12/16/19 documented as of this encounter
--- OUTSIDE RECORDS SUMMARY | 2024-05-10 20:50 | XMS_ITS | Encounter Summary ---
Author Organization [facility] Address [address] [place] [address] Phone Care Team Providers Care Four Roll Calender Operator Name Role Phone Jarred Roy MD Unavailable [phone] Elma Echevarria NP Unavailable No, Physician Primary Care Provider [phone] Reason for Referral * Consultation (Routine) - Pending Review Specialty Diagnoses / Procedures Referred By Loyd medrano Referred To Contact Anesthesiology Diagnoses Supervision of high-risk , first trimester Obesity affecting in first trimester, unspecified obesity type Janeth Zacarias, DIABETOLOGIST [address] [facility] [phone] [place] [address] Phone: tel: fax: [address] [address] Phone: tel: fax: Referral ID Status Reason Start Date Expiration Date Visits Requested Visits Authorized [id number] Pending Review Specialty Services Required 02/01/2024 03/02/2025 1 1 Question Answer Type of Anesthesia Referral OB ANESTHESIA REFERRAL - PLEASE CHOOSE THE CORRECT REGION Please select the performing region: [facility] [[id number]] Please select the performing department: [facility] [[id number]] Purpose of Consult BMI > 40 Type of Delivery Labor Epidural # of visits: 1 Comments Pt would like PHONE consult on 02/04 at 10 am Encounter Details Date Type Department Care Team (Late st Contact Info) Description 02/01/[address] [facility] Maternal- Medicine [address] [facility] Health 7th Floor [address] [place] [address] Deanne Aguiar, TRAY Supervision of [...] any clubs o r organizations such as scientology groups, unions, fraternal or athletic groups, or [...] in a mcc (including now)? 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
--- OUTSIDE RECORDS SUMMARY | 2024-05-10 20:50 | XMS_ITS | Encounter Summary ---
Author Organization [facility] Address [address] [place] [address] Phone Care Team Providers Care Vegetable Washing Machine Operator Name Role Phone Jarred Roy MD Unavailable [phone] Elma Echevarria NP Unavailable No, Physician Primary Care Provider Reason for Referral * (Routine) - Pending Review Specialty Diagnoses / Procedures Referred By Loyd t Referred To Contact Diagnoses Obesity affecting , antepartum, unspecified obesity type Procedures nonstress test - Janeth Zacarias NP [address] [facility] [id number] [place] [address] Phone: tel: fax: [facility] (All Locations) Referral ID Status Reason Start Date Expiration Date V isits Requested Visits Authorized [id number] Pending Review 03/13/2024 04/12/2025 1 1 ENTIONAL MORTGAGE UNDERWRITER Reason for Visit * Reason Comments Non-stress Test Encounter Details Date Type Department Care Team (Latest Contact Info) Description 03/13/2024 9:30 AM CONVENTIONAL MORTGAGE UNDERWRITER Clinical Support [facility] Obstetrics and Gynecology [address] [facility] Health 7th [place] [address] Obesity affecting , antepartum, unspecified obesity type [...] place to sleep or slept in a nursing home (including now)? No 07/21/2021 [place] Depression Scale Answer Date Recorded [place] Depression Scale Total 6 09/03/2021 The thought [...] on file Legal Sex Female 11:28 PM CONVENTIONAL MORTGAGE UNDERWRITER Gender Identity Not on file Sexual Orientation Not on file documented as of this encounter Last Filed Vital Signs Vital Sign Reading Time Taken Comments Blood Pressure 119/74 03/13/2024 9:50 AM CONVENTIONAL MORTGAGE UNDERWRITER Pulse - - Temperature - - Respiratory Rate - - Oxygen Saturation - - Inhaled Oxygen Concentration - - Weight - - Height - - Body Mass Index - - documented in this encounter Plan of Treatment Not on file documented as of this encounter Procedures Procedure Name Priority Date/Time Associated Diagnosis Comments NONSTRESS TEST Routine 03/13/2024 10:21 AM CONVENTIONAL MORTGAGE UNDERWRITER Obesity affecting , antepartum, unspecified obesity type documented in this encounter Results * nonstress test - (03/13/2024 10:21 AM CONVENTIONAL MORTGAGE UNDERWRITER) us Janeth Zacarias BANKING SPECIALIST OB GYNE ORDERABLES Final Result documented in this encounter Visit Diagnoses Diagnosis Obesity affecting , antepartum, unspecified obesity type- Primary documented in this encounter Care Teams Vegetable Washing Machine Operator Relationship Specialty Start Date End Date No, Physician PCP - General 12/03/23 Jarred Roy MD 2 [place] [address] 01/30/19 Elma Echevarria NP 2 [place] [address] Nurse Practitioner General Surgery 12/16/19 documented as of this encounter
--- OUTSIDE RECORDS SUMMARY | 2024-05-10 20:50 | XMS_ITS | Encounter Summary ---
Author Organization [facility] Healthcare Address [address] [place] [address] Care Team Providers Care Roll Hand Name Role Phone Jarred Roy MD Unavailable [phone] EyeElma charles NP Unavailable No, Physician Primary Care Provider [phone] Encounter Details Date Type Department Care Team (Late st Contact Info) Description 04/18/2024 11:55 AM DISTRIBUTION TRANSFORMER ASSEMBLER Lab [facility] [address] [facility] [place] [address] Encounter for routine follow-up Social History Tobacco Use Types Packs/Day Years Used Date Smoking Tobacco: Never Smokeless Tobacco: Never Alcohol Use Standard Drinks/Week Comments No 0 (1 standard drink = 0.6 oz pur e alcohol) [facility] Utilities Answer Date Recorded In the past 12 months has [employer], gas, oil, or water [employer] threatened to shut off services in your [...] week 04/04/2024 How often do you attend [employer] [facility] or jewish services? Never 04/04/2024 Do you belong to any clubs o r organizations such as presybeterian groups, unions, fraternal or athletic groups, or [...] in a snf (including now)? No 07/21/2021 [place] Depression Scale Answer Date Recorded [place] Depression Scale Total 4 04/18/2024 The thought [...] time in the past 12 m [facility], were you homeless or living in a snf (including now)? No 04/04/2024 Personal Safety Answer Date Recorded Have you ever been in or are you currently in a harmful physical or emotional relationship or is someone making you feel afraid or unsafe? Denies 04/03/2024 Comments No Sex and Gender Information Value Date Recorded Sex Assigned at Not on file Legal Sex Female 11:28 PM DISTRIBUTION TRANSFORMER ASSEMBLER Gender Identity Not on file Sexual Orientation Not on file documented as of this encounter Plan of Treatment Not on file documented as of this encounter Procedures Procedure Name Priority Date/Time Associated Diagnosis Comments CBC WITHOUT DIFFERENTIAL Routine 04/18/2024 12:08 PM DISTRIBUTION TRANSFORMER ASSEMBLER Encounter for routine follow-up FERRITIN Routine 04/18/2024 12:08 PM DISTRIBUTION TRANSFORMER ASSEMBLER Encounter for routine follow-up documented in this encounter Results * CBC without differential (04/18/2024 12:08 PM DISTRIBUTION TRANSFORMER ASSEMBLER) WBC 7.0 3.8 - 9.9 K/cumm Hgb 14.4 11.9 - 15.5 g/dL [facility] Hct 44.4 35.6 - 45.5 % [facility] Plt 324 150 - 400 K/cumm [facility] MPV 10.2 9.1 - 12.3 fL [facility] RBC 4.87 3.90 - 5.20 M/cumm [facility] MCV 91.2 81.3 - 96.4 fL [facility] MCH 29.6 27.1 - 33.3 pg [facility] MCHC 32.4 32.3 - 35.7 g/dL [facility] RDW CV 12.8 11.1 - 14.9 % [facility] RDW SD 43.2 35.7 - 48.1 fL [facility] NRBC abs 0.00 0.00 - 0.01 K/cumm [facility] Blood 04/18/2024 12:0 8 PM DISTRIBUTION TRANSFORMER ASSEMBLER 04/18/2024 2:29 PM DISTRIBUTION TRANSFORMER ASSEMBLER Janeth Griselda Zacarias HOME SCHOOL LIAISON OFFICER LAB BLOOD ORDERABLE S Final Result Performing Organization Address [facility] Co de Phone Number [facility] [place] [address] * Ferritin (04/18/2024 12:08 PM DISTRIBUTION TRANSFORMER ASSEMBLER) Ferritin See Comment 13 - 150 ng/mL Comment:Credited; Hemolyzed Specimen Blood 04/18/2024 12:0 8 PM DISTRIBUTION TRANSFORMER ASSEMBLER 04/18/2024 2:29 PM DISTRIBUTION TRANSFORMER ASSEMBLER Janeth Zacarias HOME SCHOOL LIAISON OFFICER LAB BLOOD ORDERABLE S Final Result Performing Organization Address [facility] de Phone Number [facility] [place] [address] documented in this encounter Visit Diagnoses Diagnosis Encounter for routine follow-up documented in this encounter Care Teams Roll Hand Relationship Specialty Start Date End Date No, Physician PCP - General 12/03/23 Jarred Roy MD [address] [facility] [address] 01/30/19 Elma Echevarria NP 2 [facility] [address] [place] [address] Nurse Practitioner General Surgery 12/16/19 documented as of this encounter
--- OUTSIDE RECORDS SUMMARY | 2024-05-10 20:50 | XMS_ITS | Encounter Summary ---
Author Organization [facility] Address [address] [place] [address] Phone Care Team Providers Care Electronics Instructor Name Role Phone Jarred Roy MD Unavailable [phone] Elma Echevarria NP Unavailable No, Physician Primary Care Provider [phone] Reason for Visit * Reason Comments High Risk Gestation Encounter Details Date Type Department Care Team (Late st Contact Info) Description 03/27/2024 10:00 AM RISK MANAGEMENT MANAGER Office Visit [facility] Maternal- Medicine [facility] 7th Floor [address] [place] [address] Elevated blood pressure reading without [...] in a penitentiary (including now)? No 07/21/2021 [place] Depression Scale Answer Date Recorded [place] Depression Scale Total 6 09/03/2021 The thought [...] on file Legal Sex Female 11:28 PM RISK MANAGEMENT MANAGER Gender Identity Not on file Sexual Orientation Not on file documented as of this encounter Last Filed Vital Signs Vital Sign Reading Time Taken Comments Blood Pressure 130/78 03/27/2024 9:47 AM RISK MANAGEMENT MANAGER Pulse 100 03/27/2024 9:47 AM RISK MANAGEMENT MANAGER Temperature - - Respiratory Rate - - Oxygen Saturation 98% 03/27/2024 9:47 AM RISK MANAGEMENT MANAGER Inhaled Oxygen Concentration - - Weight 149.5 kg (329 lb 9.6 oz) 03/27/2024 9:47 AM RISK MANAGEMENT MANAGER Height - - Body Mass Index 54.85 03/23/2024 11:35 AM RISK MANAGEMENT MANAGER documented in this encounter Progress Notes * Janeth Zacarias, VEGETABLE TIER - 03/27/2024 10:00 AM CST [facility] Return Visit 03/27/2024 aMry Singh is a 24 y.o. at 38w0d [...] email sent 12/12 Referring Provider: Janett Robles [phone] [] or Medicare Insurance [x] Dating Criteria: [...] makes. She is considering exclusively pumping. [x] Passenger Elevator Operator: [x] PP Depression Discussed: Labor/PEC/FKC precautions reviewed. Reviewed the importance of presenting to her closest hospital in the case of an emergency for evaluation and if necessary and safe will be transferred to [facility]. SOUTH Topete MANAGEMENT MANAGER documented in this encounter Plan of [...] trimester documented in this encounter Care Teams Electronics Instructor Relationship Specialty Start Date End Date No, Physician PCP - General 12/03/23 Jarred Roy MD [address] [address] 01/30/19 Elma Echevarria NP [address] [address] Nurse Practitioner General Surgery 12/16/19 documented as of this encounter
--- OUTSIDE RECORDS SUMMARY | 2024-05-10 20:50 | XMS_ITS | Encounter Summary ---
Author Organization [facility] Address [address] [place] [address] Phone Care Team Providers Care Manager Adult Name Role Phone Jarred Roy MD Unavailable [phone] Elma Echevarria NP Unavailable No, Physician Primary Care Provider [phone] Reason for Visit * Reason Comments Follow-up Encounter Details Date Type Department Care Team (Late st Contact Info) Description 04/18/2024 11:20 AM COMMERCIAL ROOFING ESTIMATOR Office Visit [facility] Maternal- Medicine [address] [place] [address] 7th [address] [place] [address] Encounter for routine follow-up (Primary Dx) Social History Tobacco Use Types Packs/Day Years Used Date Smoking Tobacco: Never Smokeless Tobacco: Never Tobacco Cessation:Counseling Given: Not Answered Alcohol Use Standard Drinks/Week Comments No 0 (1 standard drink = 0.6 oz pur e alcohol) [facility] Utilities Answer Date Recorded In the past 12 months has [employer] electric, gas, oil, or water company threatened [...] chur ch or roman catholic services? Never 04/04/2024 Do you belong to [...] in a mcfp (including now)? No 07/21/2021 [place] Depression Scale Answer Date Recorded [place] Depression Scale Total 4 04/18/2024 The thought [...] any time in the past 12 m [facility], were you homeless or living in a mcfp (including now)? No 04/04/2024 Personal Safety Answer Date Recorded Have you ever been in or are you currently in a harmful physical or emotional relationship or is someone making you feel afraid or unsafe? Denies 04/03/2024 Comments No Sex and Gender Information Value Date Recorded Sex Assigned at Not on file Legal Sex Female 11:28 PM COMMERCIAL ROOFING ESTIMATOR Gender Identity Not on file Sexual Orientation Not on file documented as of this encounter Last Filed Vital Signs Vital Sign Reading Time Taken Comments Blood Pressure 112/70 04/18/2024 11:27 AM COMMERCIAL ROOFING ESTIMATOR Pulse 69 04/18/2024 11:27 AM COMMERCIAL ROOFING ESTIMATOR Temperature - - Respiratory Rate - - Oxygen Saturation 98% 04/18/2024 11: 27 AM COMMERCIAL ROOFING ESTIMATOR Inhaled Oxygen Concentration - - Weight 138.9 kg (306 lb 3.2 oz) 024 11:27 AM COMMERCIAL ROOFING ESTIMATOR Height 165.1 cm (5' 5 ) 04/18/2024 11:2 7 AM COMMERCIAL ROOFING ESTIMATOR Body Mass Index 50.95 04/18/2024 11:27 AM COMMERCIAL ROOFING ESTIMATOR documented in this encounter Progress Notes * Janeth Zacarias, NHI - 04/18/2024 11:20 AM CST [facility] Visit 04/18/2024 Delivery Date: 04/03/2024 Type: Vaginal [[id number]] Delivery Details: uncomplicated Subjective: Mary Singh is [...] Screened for depression or prior mood disorders/blues: [place] Depression Scale Total: 4 Assessment and Plan: [...] call with questions or concerns. SOUTH Topete ERCIAL ROOFING ESTIMATOR documented in this encounter Plan of Treatment Not on file documented as of this encounter Results * Ferritin (04/18/2024 12:08 PM COMMERCIAL ROOFING ESTIMATOR) Ferritin See Comment 13 - 150 ng/mL Comment:Credited; Hemolyzed Specimen Blood 04/18/2024 12:0 8 PM COMMERCIAL ROOFING ESTIMATOR 04/18/2024 2:29 PM COMMERCIAL ROOFING ESTIMATOR us Janeth Zacarias NP LAB BLOOD ORDERABLE S Final Result [facility] Department [place] [address] * CBC without differential (04/18/2024 12:08 PM COMMERCIAL ROOFING ESTIMATOR) WBC 7.0 3.8 - 9.9 K/cumm Hgb 14.4 11.9 - 15.5 g/dL [facility] Hct 44.4 35.6 - 45.5 % [facility] Plt 324 150 - 400 K/cumm [facility] MPV 10.2 9.1 - 12.3 fL [facility] RBC 4.87 3.90 - 5.20 M/cumm [facility] MCV 91.2 81.3 - 96.4 fL [facility] MCH 29.6 27.1 - 33.3 pg [facility] MCHC 32.4 32.3 - 35.7 g/dL [facility] RDW CV 12.8 11.1 - 14.9 % [facility] RDW SD 43.2 35.7 - 48.1 fL [facility] NRBC abs 0.00 0.00 - 0.01 K/cumm [facility] Blood 04/18/2024 12:0 8 PM COMMERCIAL ROOFING ESTIMATOR 04/18/2024 2:29 PM COMMERCIAL ROOFING ESTIMATOR us Janeth Zacarias NP LAB BLOOD ORDERABLE S Final Result [facility] Department [place] [address] documented in this encounter Visit Diagnoses Diagnosis [...] documented as of this encounter Care Teams Manager Adult Relationship Specialty Start Date End Date No, Physician PCP - General 12/03/23 Jarred Roy MD [address] [address] 01/30/19 Elma Echevarria NP [address] [address] Nurse Practitioner General Surgery 12/16/19 documented as of this encounter
--- OUTSIDE RECORDS SUMMARY | 2024-05-10 20:50 | XMS_ITS | Encounter Summary ---
Author Organization [facility] Address [address] [place] [address] Phone Care Team Providers Care Alcohol Rubber Name Role Phone Jarred Roy MD Unavailable Elma Echevarria NP Unavailable No, Physician Primary Care Provider Reason for Referral * (Routine) - Pending Review Specialty Diagnoses / Procedures Referred By Loyd t Referred To Contact Diagnoses Obesity affecting , antepartum, unspecified obesity type Procedures nonstress test - Janeth Zacarias NP [address] [facility] [id number] [place] [address] Phone: tel: fax: [facility] (All Locations) Referral ID Status Reason Start Date Expiration Date V isits Requested Visits Authorized [id number] Pending Review 03/20/2024 04/19/2025 1 1 ARCH HYDROLOGIST Reason for Visit * Reason Comments Non-stress Test Encounter Details Date Type Department Care Team (Latest Contact Info) Description 03/20/2024 9:30 AM RESEARCH HYDROLOGIST Clinical Support [facility] Obstetrics and Gynecology [address] [facility] Health 7th [place] [address] Obesity affecting , antepartum, unspecified obesity type [...] often do you attend chur ch or shinto services? Never 07/21/2021 Do you belong to [...] in a mcc (including now)? No 07/21/2021 [place] Depression Scale Answer Date Recorded [place] Depression Scale Total 6 09/03/2021 The thought [...] file Legal Sex Female 11:28 PM RESEARCH HYDROLOGIST Gender Identity Not on file Sexual Orientation Not on file documented as of this encounter Last Filed Vital Signs Vital Sign Reading Time Taken Comments Blood Pressure 129/77 03/20/2024 10:25 AM RESEARCH HYDROLOGIST Pulse - - Temperature - - Respiratory Rate - - Oxygen Saturation - - Inhaled Oxygen Concentration - - Weight - - Height - - Body Mass Index - - documented in this encounter Plan of Treatment Not on file documented as of this encounter Procedures Procedure Name Priority Date/Time Associated Diagnosis Comments NONSTRESS TEST Routine 03/20/2024 10:48 AM RESEARCH HYDROLOGIST Obesity affecting , antepartum, unspecified obesity type documented in this encounter Results * nonstress test - (03/20/2024 10:48 AM RESEARCH HYDROLOGIST) us Janeth Zacarias SAP ARIBA CONSULTANT OB GYNE ORDERABLES Final Result documented in this encounter Visit Diagnoses Diagnosis Obesity affecting , antepartum, unspecified obesity type- Primary documented in this encounter Care Teams Alcohol Rubber Relationship Specialty Start Date End Date No, Physician PCP - General 12/03/23 Jarred Roy MD 2 [place] [address] 01/30/19 Elma Echevarria NP 2 [place] [address] Nurse Practitioner General Surgery 12/16/19 documented as of this encounter
--- OUTSIDE RECORDS SUMMARY | 2024-05-10 20:50 | XMS_ITS | Encounter Summary ---
Author Organization [facility] Healthcare Address [address] [place] [address] Care Team Providers Care Wildlife Biologist Name Role Phone Jarred Roy MD Unavailable [phone] Elma Echevarria NP Unavailable No, Physician Primary Care Provider [phone] Encounter Details Date Type Department Care Team (Latest Contact Info) Description 03/13/2024 10:34 AM SALESFORCE ADMINISTRATOR - 03/13/2024 11:59 PM [facility] Hospital Encounter [address] [address] Supervision of high-risk , first [...] often do you attend chur ch or uatsdin services? Never 07/21/2021 Do you belong to any clubs o r organizations such as yazdanism groups, unions, fraternal or athletic groups, or [...] in a fci (including now)? No 07/21/2021 [place] Depression Scale Answer Date Recorded [place] Depression Scale Total 6 09/03/2021 The thought [...] on file Legal Sex Female 11:28 PM SALESFORCE ADMINISTRATOR Gender Identity Not on file Sexual Orientation [...] B STREPTOCOCCUS CULTURE Routine 03/13/2024 1:33 PM SALESFORCE ADMINISTRATOR Supervision of high-risk , first trimester documented in this encounter Results * (ABNORMAL) Group B streptococcal culture Vaginal/Rectal (03/13/2024 1:33 PM SALESFORCE ADMINISTRATOR) Report Final Report: Streptococcus agalactiae (Group B [...] allergic patients, please contact the laboratory at [phone] to request susceptibility testing * ??* ??* ??* ??* ??* ??* ??* ??* ??* ??* ??* ??* ??* ??* ??* ??* ??* ??* ??* (.) Organism STREPTOCOCCUS AGALACTIAE (GROUP B STREPTOCOCCI) [facility] Vaginal/Rectal 03/13/2024 1: 33 PM SALESFORCE ADMINISTRATOR 03/13/2024 2:20 PM SALESFORCE ADMINISTRATOR Narrative [facility] - 03/15/2024 1:08 PM SALESFORCE ADMINISTRATOR Testing performed by [facility] Microbiology Laboratory ([phone]). Janeth Zacarias NP LAB MICROBIOLOGY - GENERAL ORDERABLES Final Result [facility] Department [place] [address] documented in this encounter Visit Diagnoses Diagnosis Supervision of high-risk , first trimester documented in this encounter Care Teams Wildlife Biologist Relationship Specialty Start Date End Date No, Physician PCP - General 12/03/23 Jarred Roy MD 2 [facility] [address] [address] 01/30/19 Elma Echevarria NP 2 [facility] [address] [address] Nurse Practitioner General Surgery 12/16/19 documented as of this encounter
--- OUTSIDE RECORDS SUMMARY | 2024-05-10 20:50 | XMS_ITS | Encounter Summary ---
Author Organization [facility] Address [address] [place] [address] Care Team Providers Care Front Desk Coordinator Name Role Phone Jarred Roy MD Unavailable [phone] EyersElma NP Unavailable No, Physician Primary Care Provider [phone] Reason for Visit * Auth/Cert (Routine) Specialty Diagnoses / Procedures Referred By Contac t Referred To Contact Diagnoses Encounter for induction of labor Procedures n/a Referral ID Status Reason Start Date Expiration Date Visits Re quested Visits Authorized [id number] 1 1 Encounter Details Date Type Department Care Team (Late st Contact Info) Description 04/02/2024 10:51 PM MILK ROUTE SUPERVISOR - 04/04/2024 2:57 PM MILK ROUTE SUPERVISOR Hospital Encounter [address] [id number] Garret Victor MD [address] [address] Sudha Abarca MD [address] [facility] [phone] [place] [address] Geeta Zhang MD [address] [facility] [id number] [place] [address] Encounter for induction of labor (Primary Dx) Discharge Disposition: Discharge to home or self care Social History Tobacco Use Types Packs/Day Years Used Date Smoking Tobacco: Never Smokeless Tobacco: Never Alcohol Use Standard Drinks/Week Comments No 0 (1 standard drink = 0.6 oz pur e alcohol) [facility] Utilities Answer Date Recorded In [...] attend chur ch or protestant services? Never 04/04/2024 Do you belong to any clubs o r organizations such as restoration groups, unions, fraternal or athletic groups, or [...] in a jail (including now)? No 07/21/2021 [place] Depression Scale Answer Date Recorded [place] Depression Scale Total 6 09/03/2021 The thought [...] any time in the past 12 m [facility], were you homeless or living in a jail (including now)? No 04/04/2024 Personal Safety Answer Date Recorded Have you ever been in or are you currently in a harmful physical or emotional relationship or is someone making you feel afraid or unsafe? Denies 04/03/2024 Comments No Sex and Gender Information Value Date Recorded Sex Assigned at Not on file Legal Sex Female 11:28 PM MILK ROUTE SUPERVISOR Gender Identity Not on file Sexual Orientation Not on file documented as of this encounter Last Filed Vital Signs Vital Sign Reading Time Taken Comments Blood Pressure 129/68 04/04/2024 7:39 AM MILK ROUTE SUPERVISOR Pulse 71 04/04/2024 7:39 AM MILK ROUTE SUPERVISOR Temperature 36.5 ??C (97.7 ??F) 04/04/2024 7:39 AM CS T Respiratory Rate 16 04/04/2024 7:39 AM MILK ROUTE SUPERVISOR Oxygen Saturation 99% 04/04/2024 7:39 AM MILK ROUTE SUPERVISOR Inhaled Oxygen Concentration - - Weight 148.3 kg (326 lb 14.4 oz) 2023 12:25 AM MILK ROUTE SUPERVISOR Height 165.1 cm (5' 5 ) 04/03/2024 12:2 5 AM MILK ROUTE SUPERVISOR Body Mass Index 54.4 04/03/2024 12:25 AM MILK ROUTE SUPERVISOR documented in this encounter Discharge Summaries * Jessica Hansen MD - 04/04/2024 7:39 AM CST Inpatient Discharge Summary Admitting Provider: Sudha Abarca MD Discharge Provider: No att. providers found Admission Date: 04/02/2024 Discharge Date: 04/04/2024 Delivery Date/Time: 04/03/2024t 11:09 AM Delivery method: Vaginal [[id number]] Primary Discharge Diagnosis: Intrauterine at 39w0d, delivered Secondary Discharge Diagnosis: Medical Conditions Diagnosis Acute sinusitis Astigmatism Duhe-yl-ethc spots Chronic daily headache Facial swelling Iron [...] Provider Department Center 04/18/2024 11:20 AM M[facility] SITE OPERATIONS MANAGER [facility] OB 05/16/2024 11:20 AM MFM SITE OPERATIONS MANAGER [facility] OB Cosigned by Jovan Healy MD at 04/04/2024 5:20 PM MILK ROUTE SUPERVISOR ROUTE SUPERVISOR ROUTE SUPERVISOR documented in this encounter Discharge Instructions * Discharge Instructions* DelvalleAyush vasquezsandrita NunnLaina, SITE OPERATIONS MANAGER - 04/03/2024 12:42 PM MILK ROUTE SUPERVISOR Images from the original note were not [...] can call our OB communication center at [phone] 28/11. * If you have SEVERE illness [...] juice, cereal) unless instructed byPediatrician. Call your Frame Expander if your baby has poor eating habits [...] call our centralized OB communication center at [phone]. Do not come to the hospital or clinic until you speak with a provider. Contact Information for your primary OB: [facility] - [facility] - [address] [place], [place] [address]Niad to schedule an appointment to be seen within 2 weeks. Future Appointments Date Time Provider Department Center 04/18/2024 11:20 AM [facility] SITE OPERATIONS MANAGER [facility] 7 OB 05/16/2024 11:20 AM [facility] SITE OPERATIONS MANAGER [place] [address] OB Blood Pressure Monitoring: If you are [...] right, call our OB communication center at [phone]. High blood pressure problems during & after [...] should call the doctor if you experience: FDC risks of preeclampsia If you had preeclampsia [...] 400 mg tablet 400 mg, oral, Daily ROUTE SUPERVISOR ROUTE SUPERVISOR documented in this encounter Medications at Time [...] Date/Time: 04/03/2024t 11:09 AM Delivery method: Vaginal [[id number]] Subjective Flatus: Yes Pain: Well controlled Diet: Tolerating regular diet. Ambulating independently Voiding spontaneously Lochia less than menses Feeling great, no complaints. No LUND. Desires DC today. Scheduled Medications docusate sodium, 100 mg, oral, BID enoxaparin, 40 mg, subcutaneous, Q12H GRANT viatmin, 1 tablet, oral, Daily polyethylene glycol, 17 g, oral, Daily PRN Medications acetaminophen benzocaine-menthoL calcium carbonate hydrocortisone ibuprofen ihasygi-necrr-esmmkrk medroxyPROGESTERone ondansetron ODT OR ondansetron polyethylene glycol [...] interval tubal. To be set up in [facility] 3 for interval tubal. DMPA as bridge. [...] carried 28/11 in house: R1 (first call) [phone] R1 alt (second call) [phone] R4 (Chief) [phone] Jessica Hansen MD 04/04/24 R4 Attestation I have reviewed, edited as needed, and agree with the above documentation. Deyvi Chavez MD Obstetrics and Gynecology PGY4 Cosigned by Jovan Healy MD at 04/04/2024 11:09 AM MILK ROUTE SUPERVISOR ROUTE SUPERVISOR ROUTE SUPERVISOR ROUTE SUPERVISOR Associated attestation - Jovan Healy MD - 04/04/2024 11:09 AM MILK ROUTE SUPERVISOR Images from the original note were not [...] alerts were managed clinically. Noemi Collins MD ROUTE SUPERVISOR * Alysha Raza MD - 04/03/2024 7:41 [...] Resident Physician Department of Obstetrics & Gynecology ROUTE SUPERVISOR * Oralia Pakrer MD - 04/03/2024 2:01 AM CST Labor [...] alerts were managed clinically. Oralia Parker MD ROUTE SUPERVISOR documented in this encounter H&P Notes * [...] Name: AYESHA LICONAOR Apgar1: 8 Apgar5: 9 ATM SERVICER History: Patient's last menstrual period was 07/05/2023 [...] IDCOOMB Positive (A) 03/13/2024 SCRINDANTIGL negative 09/18/2023 [id number] Nonreactive 02/28/2024 [id number] Nonreactive 09/18/2023 LABRPR Nonreactive 02/28/2024 SCRRPR Non-Reactive [...] Sudha Abarca MD at 04/03/2024 8:06 AM MILK ROUTE SUPERVISOR ROUTE SUPERVISOR ROUTE SUPERVISOR Associated attestation - Sudha Abarca MD - 04/03/2024 8:06 AM MILK ROUTE SUPERVISOR I have seen and examined the patient [...] considered. Discussed bridging options). Sudha Abarca MD Lawn Mower Mechanic Division of Maternal- Medicine documented in this [...] Shift: vss, pain managment, safe dc home Usp Patient Centered Goal for Treatment: safe dc home Summary: vss, pt voiding, passing flatus, tolerating regular diet, ambulating, caring for self and infant, received rhogam, Depo for bridge to PPTL. Pt has scripts for home use. Pt dc'd home per MD order. ROUTE SUPERVISOR * Initial Assessments - Liliam Castañeda LCSW - 04/04/2024 10:46 AM MILK ROUTE SUPERVISOR Reason for Admission CAROLA (Mary Schofieldpeg 2000) was admitted on 04/02/2024 for Encounter for induction of labor [Z34.90]. Social Work referral for SDOH check in. Medical History OB-ATM SERVICER care has been established with MFM. Pediatric follow-up to be scheduled upon discharge. Medical insurance coverage is through [facility] [employer] [facility]. Information Baby boy was born on [birth year]24 at EGA 39 weeks and has been named Manny Singh. Delivery was Vaginal. Glynn weighed 7lb 12.9oz at delivery. will be breast/formula fed. This is mother's 2nd child. Social History Current address is [address] [place] [id number], where she lives with her partner and children. Currently [phone] (home) is the best phone number for [...] needs should they arise. Liliam CHEN, [facility] Clinical Casing Runner [facility] ROUTE SUPERVISOR * Plan of Care - Mary Goode [...] the Shift: VSS, pain control, rest, bonding Crusher Foreman Patient Centered Goal for Treatment: Safe discharge home Summary: Patient progressing toward care plan goals. ROUTE SUPERVISOR * Plan of Care - Latoya Gould [...] vss, pain control, healthy mom, healthy baby Usp Patient Centered Goal for Treatment: healthy mom/baby Summary: admit 6800 ROUTE SUPERVISOR * Hospital Course - Jessica Hansen MD [...] interval BTL withDMPA as bridge for contraception. ROUTE SUPERVISOR ROUTE SUPERVISOR ROUTE SUPERVISOR ROUTE SUPERVISOR * L&D Delivery Note - Geeta Zhang MD - 04/03/2024 11:21 AM MILK ROUTE SUPERVISOR [facility] Vaginal Delivery Note Patient's Name: Mary Singh : 2000 Attending: Geeta Zhang Assisting: Noemi Collins MD, Clinic: [facility] Primary Diagnoses: Rh negative History of [...] and laceration repair Tamia Zhang MA MD Lawn Mower Mechanic Division of Maternal- Medicine and Ultrasound Department of Obstetrics and Gynecology [facility] 04/03/2024 ROUTE SUPERVISOR ROUTE SUPERVISOR * Plan of Care - Leelee Goodman [...] vss, pain control, healthy mom, healthy baby Usp Patient Centered Goal for Treatment: healthy mom/baby ROUTE SUPERVISOR * Plan of Care - Becca Maier [...] birthday Summary: Pt progressing towards all goals. ROUTE SUPERVISOR documented in this encounter Plan of Treatment Not on file documented as of this encounter Procedures Procedure Name Priority Date/Time Associated Diagnosis Comments RH IMMUNE GLOBULIN EVAL Timed 04/04/2024 6:01 AM MILK ROUTE SUPERVISOR BLEED SCREEN Timed 04/04/2024 6: 01 AM MILK ROUTE SUPERVISOR ABO/RH Timed 04/04/2024 6:01 AM MILK ROUTE SUPERVISOR US OB LIMITED IP Routine 04/03/2024 7:59 AM MILK ROUTE SUPERVISOR Encounter for induction of labor EGFR STAT 04/02/2024 11:32 PM MILK ROUTE SUPERVISOR RPR STAT 04/02/2024 11:32 PM MILK ROUTE SUPERVISOR CBC WITHOUT DIFFERENTIAL STAT 04/02/2024 11:32 PM MILK ROUTE SUPERVISOR TYPE AND SCREEN STAT 04/02/2024 11:32 PM MILK ROUTE SUPERVISOR COMPREHENSIVE METABOLIC PANEL STAT 04/02/2024 11:32 PM MILK ROUTE SUPERVISOR documented in this encounter Results * Bleed Screen (04/04/2024 6:01 AM MILK ROUTE SUPERVISOR) Bleed Screen Negative Blood 04/04/2024 6:01 AM MILK ROUTE SUPERVISOR 04/04/2024 6:12 AM MILK ROUTE SUPERVISOR us Noemi Collins MD LAB BLOOD BANK TEST ORDERABLES Final Result [facility] [place] [address] * ABO/Rh (04/04/2024 6:01 AM MILK ROUTE SUPERVISOR) ABO Rh O Negative Blood 04/04/2024 6:01 AM MILK ROUTE SUPERVISOR 04/04/2024 6:12 AM MILK ROUTE SUPERVISOR Noemi Collins MD LAB BLOOD BANK TEST ORDERABLES Final Result Performing Organization Address [facility] de Phone Number [facility] [place] [address] * Rh Immune Globulin Eval (04/04/2024 6:01 AM MILK ROUTE SUPERVISOR) Pathologist [facility] RhIg Administration 1 vial of Rh Immune Globulin (300 mcg dose) RhIg Eligible Yes, eligible [facility] Blood 04/04/2024 6:01 AM MILK ROUTE SUPERVISOR 04/04/2024 6:12 AM MILK ROUTE SUPERVISOR Narrative [facility] - 04/04/2024 6:25 AM MILK ROUTE SUPERVISOR Number of weeks ?->20 weeks or greater antibody screen result:->Negative Rhogam given?->Given Date Given?->01/17/24 Number of vials requested:->1 Result [facility] Noemi Collins MD LAB BLOOD BANK TEST ORDERABLES Final Result Performing Organization Address [facility] [place] [address] * US Ob Limited (04/03/2024 7:59 AM MILK ROUTE SUPERVISOR) Anatomical Region Laterality Modality Abdomen N/A Ultrasound Narrative 04/03/2024 7:59 AM MILK ROUTE SUPERVISOR Vertex I have reviewed the images and agree with above. Noemi Collins MD Noemi Collins MD IMG OB US PROCEDURES Final Result * eGFR (04/02/2024 11:32 PM MILK ROUTE SUPERVISOR) eGFR >90 >=60 mL/min/1. 73 m2 Comment: [...] reviewed 2021. Blood 04/02/2024 11:3 2 PM MILK ROUTE SUPERVISOR 04/02/2024 11:45 PM MILK ROUTE SUPERVISOR us Sudha Abarca MD LAB BLOOD ORDERABLES Final Result Performing Organization Address City/State/[facility] Co de Phone Number [facility] Department [place] [address] * (ABNORMAL) Comprehensive metabolic panel (04/02/2024 11:32 PM MILK ROUTE SUPERVISOR) Pathologist [facility] Sodium 138 135 - 145 mmol/L [...] MEDICAL CENTER Blood 04/02/2024 11:3 2 PM MILK ROUTE SUPERVISOR 04/02/2024 11:45 PM MILK ROUTE SUPERVISOR Sudha Abarca MD LAB BLOOD ORDERABLES Final Result [facility] [place] [address] * (ABNORMAL) CBC without differential (04/02/2024 11:32 PM MILK ROUTE SUPERVISOR) Pathologist [facility] WBC 9.1 3.8 - 9.9 K/cumm [...] MEDICAL CENTER Blood 04/02/2024 11:3 2 PM MILK ROUTE SUPERVISOR 04/02/2024 11:45 PM MILK ROUTE SUPERVISOR Sudha Abarca MD LAB BLOOD ORDERABLES Final Result Performing Organization Address [facility] Co de Phone Number [facility] Department [place] [address] * Type and screen (04/02/2024 11:32 PM MILK ROUTE SUPERVISOR) Jorge, indirect Negative Comment:Patient has previous antibody history ABO Rh O Negative [facility] Blood 04/02/2024 11:3 2 PM MILK ROUTE SUPERVISOR 04/03/2024 12:12 AM MILK ROUTE SUPERVISOR Narrative [facility] - 04/03/2024 1:19 AM MILK ROUTE SUPERVISOR Has the patient had Daratumumab or Isatuximab in the past 6 months?->Unknown Sudha Abarca MD LAB BLOOD BANK TEST O RDERABLES Final Result [facility] Department [place] [address] * RPR Blood (04/02/2024 11:32 PM MILK ROUTE SUPERVISOR) RPR Nonreactive Nonreactive Blood 04/02/2024 11:3 2 PM MILK ROUTE SUPERVISOR 04/02/2024 11:45 PM MILK ROUTE SUPERVISOR Sudha Abarca MD LAB MICROBIOLOGY - [facility] ORDERABLES Final Result [facility] Department [place] [address] documented in this encounter Visit Diagnoses Diagnosis [...] Mon04/03/24 at 1134 Given 04/04/2024 2:30 AM MILK ROUTE SUPERVISOR 650 mg Given 04/03/2024 7:25 PM MILK ROUTE SUPERVISOR 650 mg dextrose 5% and sodium chloride 0.9% infusion (premix) 75 mL/hr, intravenous, Continuous, Starting on Mon04/03/24 at 0015 Rate/Dose Verify 04/03/2024 3:00 AM MILK ROUTE SUPERVISOR 75 mL/hr 75 mL/hr New Bag 04/03/2024 12:10 AM MILK ROUTE SUPERVISOR 75 mL/hr 75 mL/hr docusate sodium (COLACE) capsule 100 mg 100 mg, oral, 2 times daily, First dose on Mon04/03/24 at 2100, Hold if diarrhea., Indications: constipation, Stool SoftenerIndications:constipation,Stool Softener Given 04/04/2024 7:37 AM MILK ROUTE SUPERVISOR 100 mg Given 04/03/2024 8:33 PM MILK ROUTE SUPERVISOR 100 mg enoxaparin (LOVENOX) syringe 40 mg 40 mg, subcutaneous, Every 12 hours scheduled, First dose on [place] 04/04/24 at 0900, Indications: Deep Vein Thrombosis PreventionIndications:Deep Vein Thrombosis Prevention Given 04/04/2024 7:37 AM MILK ROUTE SUPERVISOR 40 mg Right Upper Arm fentaNYL-BUPivacaine preservative [...] complete., RoutineIndications:Pain New Syringe/Cartridge 04/03/2024 10:52 AM MILK ROUTE SUPERVISOR Rate/Dose Change 04/03/2024 5:02 AM MILK ROUTE SUPERVISOR 8 mL/hr 8 mL/hr Bolus 04/03/2024 5:01 AM MILK ROUTE SUPERVISOR 5 mL ibuprofen (ADVIL,MOTRIN) tablet 600 mg 600 mg, oral, Every 6 hours PRN, other, cramping, Starting on Mon04/03/24 at 1134, Indications: CrampsIndications:Cramps Given 04/04/2024 2:30 AM MILK ROUTE SUPERVISOR 600 mg Given 04/03/2024 7:25 PM MILK ROUTE SUPERVISOR 600 mg medroxyPROGESTERone (DEPO-PROVERA) 150 mg/mL injection 150 mg 150 mg, intramuscular, During hospitalization, contraception, Starting on [place] 04/04/24 at 0726, For 1 dose, Shake well Given 04/04/2024 7:55 AM MILK ROUTE SUPERVISOR 150 mg Left Ventrogluteal ondansetron (ZOFRAN) injection [...] hours., Routine Rate/Dose Change 04/03/2024 11:41 AM MILK ROUTE SUPERVISOR 95 milliunits /min 95 mL/hr New Bag 04/03/2024 11:11 AM MILK ROUTE SUPERVISOR 334 milliunits/min 334 mL/hr oxytocin 30 unit/500 [...] of Labor Rate/Dose Change 04/03/2024 7:07 AM MILK ROUTE SUPERVISOR 14 milliunits/min 14 mL/hr Rate/Dose Verify 04/03/2024 3:00 AM MILK ROUTE SUPERVISOR 12 milliunits/min 12 mL/hr Rate/Dose Change 04/03/2024 2:45 AM MILK ROUTE SUPERVISOR 12 milliunits/min 12 mL/hr penicillin G potassium 3 million units/50 mL in dextrose (premix) 3 Million Units 3 Million Units, intravenous, Administer over 30 Minutes, Every 4 hours, First dose on Mon04/03/24 at 0445, L&D Pre-Delivery, Until delivery, Indications: Prevention of Group B Streptococcal InfectionIndications:Prevention of Group B Streptococcal Infection New Bag 04/03/2024 9:13 AM MILK ROUTE SUPERVISOR 3 Million Units New Bag 04/03/2024 5:13 AM MILK ROUTE SUPERVISOR 3 Million Units penicillin G potassium 5 million units/50 mL in sterile water (premix) 5 Million Units 5 Million Units, intravenous, Administer over 30 Minutes, Once, On Mon04/03/24 at 0015, For 1 dose, L&D Pre-Delivery, Indications: Prevention of Group B Streptococcal InfectionIndications:P revention of Group B Streptococcal Infection New Bag 4 12:11 AM MILK ROUTE SUPERVISOR 5 Million Units PNV with xznkfxt-ftoz-IX tablet 1 tablet 1 tablet, oral, Daily, First dose on Mon04/03/24 at 2014, Begin when normal bowel activity resumes., Indications: Vitamin Deficiency PreventionIndications: Vitamin Deficiency Prevention Given 4 7:37 AM MILK ROUTE SUPERVISOR 1 tablet polyethylene glycol (MIRALAX) packet 17 g 17 g, oral, Daily, First dose on Mon04/03/24 at 2014, Hold if diarrhea., Indications: constipationIndication s:constipation Given 4 7:37 AM MILK ROUTE SUPERVISOR 17 g Rho(D) immune globulin (HyperRHO S/D, RhoGAM) injection 300 mcg 300 mcg, intramuscular, Once, On [place] 04/04/24 at 0830, For 1 dose, Refrigerate, Indications: Prevention of Rhesus Isoimmunization affecting PregnancyIndications:P revention of Rhesus Isoimmunization affecting Given 4 7:53 AM MILK ROUTE SUPERVISOR 300 mcg Right Ventrogluteal sodium chloride 0.9% bolus 1,000 mL 1,000 mL, intravenous, Once, On Mon04/03/24 at 0600, For 1 dose New Bag 4 5:20 AM MILK ROUTE SUPERVISOR 1,000 mL sodium chloride 0.9% bolus 600 mL 600 mL, intrauterine, at 600 mL/hr, Administer over 1 Hours, Once, On Mon04/03/24 at 0945, For 1 dose New Bag 4 9:13 AM MILK ROUTE SUPERVISOR 600 mL 600 mL/hr sodium chloride 0.9% infusion 180 mL/hr, intrauterine, Continuous, Starting on Mon04/03/24 at 0945 Rate/Dose Change 4 10:08 AM MILK ROUTE SUPERVISOR 180 mL/hr 180 mL/hr documented in this [...] Recently Administered Medications Times are shown in MILK ROUTE SUPERVISOR. Scheduled Medication Order 04/02/2024 04/03/2024 04/04/2024 docusate [...] - Provider: Becca Maier, TRAY) PNV with iwmyiry-htsm-YJ tablet 1 tablet 1 tablet, oral, Daily, [...] 0230 (Given - Provider: Mary Goode, TRAY) bxnliak-qxwkr-ozgyryx (MMR) 1,000-12,500 TCID50/0.5 mL live vaccine 0.5 mL 0.5 mL, subcutaneous, During hospitalization, immunization, Starting on Mon04/03/24 at 193, For 1 dose, If not rubella immune. Warning: This is a live or live attenuated vaccine. Refrigerate. Two-component vaccine. Must be reconstituted with diluent provided. Document the NDC, Lot number, expiration date from the DRY POWDER vial component at administration., Indications: Mwfadrm-Tvqzx-Qbgryco Vaccination medroxyPROGESTERone (DEPO-PROVERA) 150 mg/mL injection 150 [...] 1 dose, If not immune. Refrigerate, Indications: Ljtgkffcwh-Nlfphhsok-Eleuoal Combined Prevention varicella zoster (VARIVAX) vaccine - live 0.5 mL 0.5 mL, subcutaneous, During hospitalization, immunization, Starting on Mon04/03/24 at 193, For 1 dose, if not immune Warning: This is a live or live attenuated vaccine. Do not administer to individuals who are immunodeficient or immunosuppressed or to women. Refrigerate. Two-component vaccine. Must be reconstituted with diluent provided. Document the WAC, Lot number, expiration date from the DRY [...] 2 .5 % rectal cream 1 04/03/2024 geagyil-kixgr-forogua (MMR) 1,000-12,500 TCID50/0.5 mL live vaccine 0.5 [...] 04/02/2024 documented in this encounter Care Teams Front Desk Coordinator Relationship Specialty Start Date End Date No, Physician PCP - General 12/03/23 Jarred Roy MD [address] [address] 01/30/19 Elma Echevarria NP 2 [facility] [address] [address] Nurse Practitioner General Surgery 12/16/19 documented as of this encounter
--- OUTSIDE RECORDS SUMMARY | 2024-05-10 20:50 | XMS_ITS | Clinical Summary ---
Author Organization [facility] Address [address] [place] [address] Care Team Providers Care [employer] Name Role Phone Jarred Roy MD Unavailable [phone] EyersElma NP Unavailable No, Physician Primary Care Provider [phone] Allergies No known active allergies Medications vitamin [...] interval tubal. To be set up in [facility] 3 for interval tubal. DMPA as bridge. # MOF: Formula feeding. Urine drug screen not indicated. Patient informed of results: N/A. # Post DVT prophylaxis: The patient has the following MAJOR risk factors BMI >/= 40 and the following MINOR risk factors none. enoxaparin 40 mg BID ordered for VTE prophylaxis. # Disposition: Follow up task sent to [facility] scheduling pool for appointments in 2 and 6 weeks. Desires discharge home today. 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: s/p Rhogam 01/17/24, for Rhogam prior to d/c #Headache: controlled on topomax outside of , Mg/B6 during , compazine PRN Service Coverage These phones are service phones and carried 28/11 in house: R1 (first call) [phone] R1 alt (second call) [phone] R4 (Chief) [phone] Proteinuria complicating in first trim brennan 10/04/2023 [...] Iron deficiency 11/19/2018 Migraine 11/19/2018 Astigmatism 09/18/2018 [id number] spots 09/18/2018 Vitamin D deficiency 09/18/2018 Chronic [...] email sent 12/12 Referring Provider: Janett Robles [phone] [] or Medicare Insurance [x] Dating Criteria: [...] makes. She is considering exclusively pumping. [x] Hand Former Helper: [x] PP Depression Discussed: History of hemorr [...] Method of feeding: Plans breast [] Hand Former Helper: [] Car seat: [] PP Depression Counseling [x] Attg visits (11/08) Closed nondisplaced fracture of medial cuneiform of right foot 06/03/2019 10/04/2023 Obesity 12/16/2016 08/26/2021 Overview (07/16/2021): - BMI 38 - A1c 03/2020 4.6 - GTT 91 - 3T growth 40% Plan: [] Routine PNC Encounters Date Type Department Care Team Description 04/24/2024 Telephone [facility]stetrics [facility]ne[facility] Clinic [address] [place] [address] 3rd Floor [address] [place] [address] Magui Vail 04/18/2024 11:55 AM ASSISTANT TODDLER TEACHER Lab [address] [address] Encounter for routine follow-up 04/18/2024 11:20 AM ASSISTANT TODDLER TEACHER Office Visit [facility] [address] [place] [address] 7th Floor [address] [place] [address] Encounter for routine follow-up (Primary Dx) 04/03/2024 4:20 AM ASSISTANT TODDLER TEACHER Anesthesia Event [address] [phone] Jese Espinoza MD Ukeje, Chideraa Cynthia, MD 04/02/2024 10:51 PM ASSISTANT TODDLER TEACHER - 04/04/2024 2:57 PM ASSISTANT TODDLER TEACHER Hospital Encounter [address] [phone] Garret Victor MD Zofkie, Amanda Christine, MD Bligard, Geeta Arriaga MD Encounter for induction of labor (Primary Dx) Discharge Disposition: Discharge to home or self care 04/01/[address] [phone] Cassi French RN Scheduled Induction 03/27/2024 10:30 AM ASSISTANT TODDLER TEACHER Clinical Support [facility] Obstetrics and Gynecology [address] [place] [phone] Obesity affecting , antepartum, unspecified obesity type (Primary Dx) 03/27/2024 10:00 AM ASSISTANT TODDLER TEACHER Office Visit [facility]- Medicine [address] [place] [address] Floor [address] [place] [phone] Elevated blood pressure reading without diagnosis of hypertension (Primary Dx); Family history of spina bifida; History of hemorrhage, currently in first trimester; Obesity affecting in first trimester, unspecified obesity type; headache in second trimester; Proteinuria complicating in first trimester; Supervision of high-risk , first trimester 03/27/2024 9:08 AM ASSISTANT TODDLER TEACHER - 03/27/2024 11:59 PM ASSISTANT TODDLER TEACHER Hospital Encounter [facility] - Ultrasound [address] [place] [address], [address] [place] [address] Obesity affecting in first trimester, unspecified obesity type (Primary Dx) Discharge Disposition: Discharge to home or self care 03/23/2024 11:11 AM ASSISTANT TODDLER TEACHER - 03/23/2024 1:21 PM ASSISTANT TODDLER TEACHER Hospital Encounter [address] [phone] Garret Victor MD Meka, Raina Advani, MD Huysman, Bridget C., MD Discharge Disposition: Discharge to home or self care 03/20/2024 10:40 AM ASSISTANT TODDLER TEACHER Office Visit [facility] [address] [place] [address] Floor [address] [place] [phone] Elevated blood pressure reading without diagnosis of hypertension (Primary Dx); Family history of spina bifida; History of hemorrhage, currently in first trimester; Obesity affecting in first trimester, unspecified obesity type; headache in second trimester; Supervision of high-risk , first trimester 03/20/2024 9:30 AM ASSISTANT TODDLER TEACHER Clinical Support [facility] Obstetrics and Gynecology [address] [place] [address] [place] [phone] Obesity affecting , antepartum, unspecified obesity type (Primary Dx) 03/13/2024 11:36 AM ASSISTANT TODDLER TEACHER - 03/13/2024 2:22 PM ASSISTANT TODDLER TEACHER Hospital Encounter [address] [phone] Garret Victor MD Dombrowski, Michael McKinley, MD Discharge Disposition: Discharge to home or self care 03/13/2024 10:34 AM ASSISTANT TODDLER TEACHER - 03/13/2024 11:59 PM ASSISTANT TODDLER TEACHER Hospital Encounter [address] [address] Supervision of high-risk , first trimester Discharge Disposition: Discharge to home or self care 03/13/2024 10:00 AM ASSISTANT TODDLER TEACHER Office Visit [facility] [address] [place] [address] [place] [phone] Elevated blood pressure reading without diagnosis of hypertension (Primary Dx); Family history of spina bifida; History of hemorrhage, currently in first trimester; Obesity affecting in first trimester, unspecified obesity type; headache in second trimester; Proteinuria complicating in first trimester; Supervision of high-risk , first trimester 03/13/2024 9:30 AM ASSISTANT TODDLER TEACHER Clinical Support [facility] Obstetrics and Gynecology [address] [place] [address] [place] [phone] Obesity affecting , antepartum, unspecified obesity type (Primary Dx) 03/06/2024 9:30 AM CDT Clinical Support [facility] Obstetrics and Gynecology [address] [place] [address] [place] [phone] Obesity affecting , antepartum, unspecified obesity type (Primary Dx) 02/28/2024 11:05 AM CDT Lab [facility] [address] [place] [address] [place] [address] Supervision of high-risk , first trimester 02/28/2024 10:45 AM CDT Office Visit [facility] Medicine [address] [place] [address] 7th Floor [address] [place] [phone] Elevated blood pressure reading without diagnosis of hypertension (Primary Dx); Family history of spina bifida; History of hemorrhage, currently in first trimester; Obesity affecting in first trimester, unspecified obesity type; headache in second trimester; Proteinuria complicating in first trimester; Supervision of high-risk , first trimester 02/28/2024 9:59 AM CDT - 02/28/2024 11:59 PM CDT Hospital Encounter [facility] - Ultrasound [address] [place] [address], [address] [place] [address], [address] [place], [place] [phone] Other obesity affecting in third trimester (Primary Dx) Discharge Disposition: Discharge to home or self care 02/28/2024 Orders Only [facility] [place] [id number] [facility] Medical Office Building [address] [place] [phone] Nelsy Fuller 02/14/2024 9:15 AM CDT Office Visit [facility] [address] [place] [address] 7th Floor [address] [place] [phone] Elevated blood pressure reading without diagnosis of hypertension (Primary Dx); Family history of spina bifida; History of hemorrhage, currently in first trimester; Obesity affecting in first trimester, unspecified obesity type; headache in second trimester; Proteinuria complicating in first trimester; Supervision of high-risk , first trimester 02/14/2024 Orders Only [facility] [address] [place] [address] 7th Floor [address] [place] [phone] Breanna Quijano RN from Last 3 Months [...] = 0.6 oz pur e alcohol) [facility] [employer] Answer Date Recorded In the past 12 [...] often do you attend chur ch or yazidi services? Never 04/04/2024 Do you belong to [...] in a residential (including now)? No 07/21/2021 [place] Depression Scale Answer Date Recorded [place] Depression Scale Total 4 04/18/2024 The thought [...] any time in the past 12 m [facility], were you homeless or living in a [...] file Legal Sex Female 11:28 PM ASSISTANT TODDLER TEACHER Gender Identity Not on file Sexual Orientation [...] Amanda Linares MD Complications:Post He morrhage Delivery Location:[facility] Main C ampus ([facility] 58LD) 2023 Term 39w 0d 11h 01m 10h 40m/0h 14m/0h 07m 3.54 kg (7 lb 12.9 oz) M Vagina l Epidur al Y Livin g 8 [address] Triston Chanduo l Leonor rd, Usha balderrama MD Complications:None Delivery Location:[facility] Main C ampus ([facility] 58LD) Last Filed Vital Signs Vital Sign Reading Time Taken Comments Blood Pressure 112/70 04/18/2024 11:27 AM ASSISTANT TODDLER TEACHER Pulse 69 04/18/2024 11:27 AM ASSISTANT TODDLER TEACHER Temperature 36.5 ??C (97.7 ??F) 04/04/2024 7:39 AM CS T Respiratory Rate 16 04/04/2024 7:39 AM ASSISTANT TODDLER TEACHER Oxygen Saturation 98% 04/18/2024 11: 27 AM ASSISTANT TODDLER TEACHER Inhaled Oxygen Concentration - - Weight 138.9 kg (306 lb 3.2 oz) 024 11:27 AM ASSISTANT TODDLER TEACHER Height 165.1 cm (5' 5 ) 04/18/2024 11:2 7 AM ASSISTANT TODDLER TEACHER Body Mass Index 50.95 04/18/2024 11:27 AM ASSISTANT TODDLER TEACHER Plan of Treatment Health Maintenance Due Date [...] CBC WITHOUT DIFFERENTIAL Routine 04/18/2024 12:08 PM ASSISTANT TODDLER TEACHER Encounter for routine follow-up FERRITIN Routine 04/18/2024 12:08 PM ASSISTANT TODDLER TEACHER Encounter for routine follow-up BLEED SCREEN Timed 04/04/2024 6: 01 AM ASSISTANT TODDLER TEACHER ABO/RH Timed 04/04/2024 6:01 AM ASSISTANT TODDLER TEACHER RH IMMUNE GLOBULIN EVAL Timed 04/04/2024 6:01 AM ASSISTANT TODDLER TEACHER US OB LIMITED IP Routine 04/03/2024 7:59 AM ASSISTANT TODDLER TEACHER Encounter for induction of labor ANESTHESIA EPIDURAL BLOCK Routine 04/03/2024 5:15 AM ASSISTANT TODDLER TEACHER EGFR STAT 04/02/2024 11:32 PM ASSISTANT TODDLER TEACHER COMPREHENSIVE METABOLIC PANEL STAT 04/02/2024 11:32 PM ASSISTANT TODDLER TEACHER CBC WITHOUT DIFFERENTIAL STAT 04/02/2024 11:32 PM ASSISTANT TODDLER TEACHER TYPE AND SCREEN STAT 04/02/2024 11:32 PM ASSISTANT TODDLER TEACHER RPR STAT 04/02/2024 11:32 PM ASSISTANT TODDLER TEACHER NONSTRESS TEST Routine 03/27/2024 11:18 AM ASSISTANT TODDLER TEACHER Obesity affecting , antepartum, unspecified obesity type US OB FOLLOW UP Schedule Routine, Read Routine (OP Routine) 03/27/2024 9:15 AM ASSISTANT TODDLER TEACHER Obesity affecting in first trimester, unspecified obesity type POCT URINALYSIS (CLINITEK) Routine 03/23/2024 12:07 PM ASSISTANT TODDLER TEACHER NONSTRESS TEST Routine 03/20/2024 10:48 AM ASSISTANT TODDLER TEACHER Obesity affecting , antepartum, unspecified obesity type ANTIBODY IDENTIFICATION STAT 03/13/2024 2:58 PM ASSISTANT TODDLER TEACHER GROUP B STREPTOCOCCUS CULTURE Routine 03/13/2024 1:33 PM ASSISTANT TODDLER TEACHER Supervision of high-risk , first trimester EGFR STAT 03/13/2024 12:13 PM ASSISTANT TODDLER TEACHER CBC WITHOUT DIFFERENTIAL STAT 03/13/2024 12:13 PM ASSISTANT TODDLER TEACHER COMPREHENSIVE METABOLIC PANEL STAT 03/13/2024 12:13 PM ASSISTANT TODDLER TEACHER TYPE AND SCREEN STAT 03/13/2024 12:13 PM ASSISTANT TODDLER TEACHER URIC ACID STAT 03/13/2024 12:13 PM ASSISTANT TODDLER TEACHER PROTEIN / CREATININE RATIO, URINE, RANDOM STAT 03/13/2024 12:13 PM ASSISTANT TODDLER TEACHER POCT URINALYSIS (CLINITEK) Routine 03/13/2024 11:56 AM ASSISTANT TODDLER TEACHER NONSTRESS TEST Routine 03/13/2024 10:21 AM ASSISTANT TODDLER TEACHER Obesity affecting , antepartum, unspecified obesity type [...] * CBC without differential (04/18/2024 12:08 PM ASSISTANT TODDLER TEACHER) [facility] WBC 7.0 3.8 - 9.9 K/cumm Hgb 14.4 11.9 - 15.5 g/dL [facility] Hct 44.4 35.6 - 45.5 % [facility] Plt 324 150 - 400 K/cumm [facility] MPV 10.2 9.1 - 12.[address] [facility] RBC 4.87 3.90 - 5.20 M/cumm [facility] MCV 91.2 81.3 - 96.[address] [facility] MCH 29.6 27.1 - 33.[address] [facility] MCHC 32.4 32.3 - 35.7 g/dL [facility] RDW CV 12.8 11.1 - 14.9 % [facility] RDW SD 43.2 35.7 - 48.[address] [facility] NRBC abs 0.00 0.00 - 0.01 K/cumm [facility] Blood 04/18/2024 12:0 8 PM ASSISTANT TODDLER TEACHER 04/18/2024 2:29 PM ASSISTANT TODDLER TEACHER us Janeth Zacarias NP LAB BLOOD ORDERABLE S Final Result [facility] Department [place] [address] * Ferritin (04/18/2024 12:08 PM ASSISTANT TODDLER TEACHER) [facility] Ferritin See Comment 13 - 150 ng/mL Comment:Credited; Hemolyzed Specimen Blood 04/18/2024 12:0 8 PM ASSISTANT TODDLER TEACHER 04/18/2024 2:29 PM ASSISTANT TODDLER TEACHER Janeth Zacarias NP LAB BLOOD ORDERABLE S Final Result Performing Organization Address [facility] Co de Phone Number [facility] [place] [address] * Rh Immune Globulin Eval (04/04/2024 6:01 AM ASSISTANT TODDLER TEACHER) RhIg Administration 1 vial of Rh Immune Globulin (300 mcg dose) RhIg Eligible Yes, eligible [facility] Blood 04/04/2024 6:01 AM ASSISTANT TODDLER TEACHER 04/04/2024 6:12 AM ASSISTANT TODDLER TEACHER Narrative [facility] - 04/04/2024 6:25 AM ASSISTANT TODDLER TEACHER Number of weeks ?->20 weeks or greater antibody screen result:->Negative Rhogam given?->Given Date Given?->01/17/24 Number of vials requested:->1 Noemi Collins MD LAB BLOOD BANK TEST ORDERABLES Final Result Performing Organization Address [facility]/[place] [address] * Bleed Screen (04/04/2024 6:01 AM ASSISTANT TODDLER TEACHER) Pathologist [facility] Bleed Screen Negative Blood 04/04/2024 6:01 AM ASSISTANT TODDLER TEACHER 04/04/2024 6:12 AM ASSISTANT TODDLER TEACHER Noemi Collins MD LAB BLOOD BANK TEST [place] [address] * ABO/Rh (04/04/2024 6:01 AM ASSISTANT TODDLER TEACHER) ABO Rh O Negative Blood 04/04/2024 6:01 AM ASSISTANT TODDLER TEACHER 04/04/2024 6:12 AM ASSISTANT TODDLER TEACHER us Noemi Collins MD LAB BLOOD BANK TEST ORDERABLES Final Result [facility] Department [place] [address] * US Ob Limited (04/03/2024 7:59 AM ASSISTANT TODDLER TEACHER) Anatomical Region Laterality Modality Abdomen N/A Ultrasound Narrative 04/03/2024 7:59 AM ASSISTANT TODDLER TEACHER Vertex I have reviewed the images and agree with above. Noemi Collins MD us Noemi Collins MD IMG OB US PROCEDURES Final Result * Epidural Block (04/03/2024 5:15 AM ASSISTANT TODDLER TEACHER) Narrative Kash Garcia MD - 04/03/2024 5:15 AM ASSISTANT TODDLER TEACHER Kash Garcia MD ? 04/03/2024 ??5:16 AM [...] l Result * eGFR (04/02/2024 11:32 PM ASSISTANT TODDLER TEACHER) Pathologist [facility] eGFR >90 >=60 mL/min/1. 73 m2 Comment: [...] reviewed 2021. Blood 04/02/2024 11:3 2 PM ASSISTANT TODDLER TEACHER 04/02/2024 11:45 PM ASSISTANT TODDLER TEACHER us Sudha Abarca MD LAB BLOOD ORDERABLES Final Result [facility] Department [place] [address] * RPR Blood (04/02/2024 11:32 PM ASSISTANT TODDLER TEACHER) Pathologist [facility] RPR Nonreactive Nonreactive Blood 04/02/2024 11:3 2 PM ASSISTANT TODDLER TEACHER 04/02/2024 11:45 PM ASSISTANT TODDLER TEACHER Sudha Abarca MD LAB MICROBIOLOGY - GE NERAL ORDERABLES Final Result Performing Organization Address City/[facility]/ZIP Co de Phone Number [facility] Department [place] [address] * (ABNORMAL) CBC without differential (04/02/2024 11:32 PM ASSISTANT TODDLER TEACHER) [facility] WBC 9.1 3.8 - 9.9 K/cumm Hgb 11.8(L) 11.9 - 15.5 g/dL [facility] Hct 34.8(L) 35.6 - 45.5 % [facility] Plt 228 150 - 400 K/cumm [facility] MPV 10.1 9.1 - 12.[address] [facility] RBC 3.87(L) 3.90 - 5.20 M/cumm [facility] MCV 89.9 81.3 - 96.[address] [facility] MCH 30.5 27.1 - 33.[address] [facility] MCHC 33.9 32.3 - 35.7 g/dL [facility] RDW CV 13.5 11.1 - 14.9 % [facility] RDW SD 44.2 35.7 - 48.[address] [facility] NRBC abs 0.00 0.00 - 0.01 K/cumm [facility] Blood 04/02/2024 11:3 2 PM ASSISTANT TODDLER TEACHER 04/02/2024 11:45 PM ASSISTANT TODDLER TEACHER Sudha Abarca MD LAB BLOOD ORDERABLES Final Result [facility] Department [place] [address] * Type and screen (04/02/2024 11:32 PM ASSISTANT TODDLER TEACHER) [facility] Jorge, indirect Negative Comment:Patient has previous antibody history ABO Rh O Negative [facility] Blood 04/02/2024 11:3 2 PM ASSISTANT TODDLER TEACHER 04/03/2024 12:12 AM ASSISTANT TODDLER TEACHER Narrative [facility] - 04/03/2024 1:19 AM ASSISTANT TODDLER TEACHER Has the patient had Daratumumab or Isatuximab in the past 6 months?->Unknown Sudha Abarca MD LAB BLOOD BANK TEST O RDERABLES Final Result [facility] Department [place] [address] * (ABNORMAL) Comprehensive metabolic panel (04/02/2024 11:32 PM ASSISTANT TODDLER TEACHER) Pathologist [facility] Sodium 138 135 - 145 mmol/L Potassium, pl 4.0 3.3 - 4.9 mmol/L [facility] Chloride 106 97 - 110 mmol/L [facility] CO2 22 22 - 32 mmol/L [facility] Anion gap 10 2 - 15 mmol/L [facility] BUN 6 6 - 25 mg/dL [facility] Creatinine 0.54(L) 0.60 - 1.10 mg/dL [facility] Glucose 103 70 - 199 mg/dL [facility] Comment: Interpretive Data Fasting glucose [...] 9.3 8.5 - 10.3 mg/dL [facility] Bilirubin, total 0.3 0.1 - 1.2 mg/dL [facility] Protein, pl 6.6 6.5 - 8.5 g/dL [facility] Albumin 3.6 3.5 - 5.0 g/dL [facility] Alk phos 110 40 - 130 Units/L [facility] ALT 21 7 - 45 Units/L [facility] AST 26 10 - 45 Units/L [facility] Blood 04/02/2024 11:3 2 PM ASSISTANT TODDLER TEACHER 04/02/2024 11:45 PM ASSISTANT TODDLER TEACHER Sudha Abarca MD LAB BLOOD ORDERABLES Final Result [facility] Department [place] [address] * nonstress test - (03/27/2024 11:18 AM ASSISTANT TODDLER TEACHER) Janeth Zacarias NP OB GYNE ORDERABLES Final Result * US Ob Follow Up (03/27/2024 9:15 AM ASSISTANT TODDLER TEACHER) Fetus# Fetus1 VIEWPOINT Estimated Weight 3,274 g&grams VIEWPOINT Placenta Details posterior, Previa-no, no placental masses VIEWPOINT Presentation Vertex VIEWPOINT Anatomical Region Laterality Modality Abdomen N/A Ultrasound 03/27/2024 9:16 AM ASSISTANT TODDLER TEACHER Impressions 03/27/2024 5:08 PM ASSISTANT TODDLER TEACHER IUP at 38w 0d who presents for [...] fluid volume is normal. us Janeth Zacarias PIPELINE WELDER IMG OB US PROCEDURE S Final Result * POCT urinalysis (Clinitek) (03/23/2024 12:07 PM ASSISTANT TODDLER TEACHER) Color, ur, POC Yellow Yellow Clarity, UA, POC Clear Clear [facility] Glucose, ur, POC Negative Negative [facility] Bilirubin, ur, POC Negative Negative [facility] Ketones, ur, POC Negative Negative [facility] Specific gravity, ur, POC 1.020 1.010 - 1.[address] [facility] Blood, ur, POC Negative Negative [facility] pH, ur, POC 7.[address] [facility] Comment: Interpretive Data Urine pH is affected by diet, medications, systemic acid-base disturbances, and renal tubular function. pH may affect urinary stone formation. For example, urine pH below 6.0 may help reduce the tendency for calcium phosphate stones and pH greater than 6.0 may reduce the tendency for uric acid stone formation. Source: [employer]. Last Revised Date: 05-18-2017 Protein, ur, POC Negative Negative [facility] Urobilinogen, ur, POC 0.2 mg/dL mg/dL [facility] Nitrites, ur, POC Negative Negative [facility] Leukocyte esterase, ur, POC Negative Negative [facility] Urine 03/23/2024 12:0 7 PM ASSISTANT TODDLER TEACHER 03/23/2024 12:07 PM ASSISTANT TODDLER TEACHER Emily Munguia MD LAB POCT ORDERABLES - DEVIC E Final Result [facility] Department [place] [address] * nonstress test - (03/20/2024 10:48 AM ASSISTANT TODDLER TEACHER) us Janeth Zacarias PIPELINE WELDER OB GYNE ORDERABLES Final Result * Antibody identification (03/13/2024 2:58 PM ASSISTANT TODDLER TEACHER) Antibody ID 1 Passive Anti-D Blood 03/13/2024 2:58 PM ASSISTANT TODDLER TEACHER 03/13/2024 2:58 PM ASSISTANT TODDLER TEACHER Jennifer Chamberlain PIPELINE WELDER LAB BLOOD BANK TEST ORDE MACRINA Final Result Performing Organization Address [facility] Co de Phone Number [facility] Department [place] [address] * (ABNORMAL) Group B streptococcal culture Vaginal/Rectal (03/13/2024 1:33 PM ASSISTANT TODDLER TEACHER) Report Final Report: Streptococcus agalactiae (Group B [...] allergic patients, please contact the laboratory at [phone] to request susceptibility testing * ??* ??* ??* ??* ??* ??* ??* ??* ??* ??* ??* ??* ??* ??* ??* ??* ??* ??* ??* (.) Organism STREPTOCOCCUS AGALACTIAE (GROUP B STREPTOCOCCI) [facility] Vaginal/Rectal 03/13/2024 1: 33 PM ASSISTANT TODDLER TEACHER 03/13/2024 2:20 PM ASSISTANT TODDLER TEACHER Narrative [facility] - 03/15/2024 1:08 PM ASSISTANT TODDLER TEACHER Testing performed by [facility] Microbiology Laboratory ([phone]). Janeth Zacarias PIPELINE WELDER LAB MICROBIOLOGY - GENERAL ORDERABLES Final Result Performing Organization Address [facility] [facility] Co de Phone Number [facility] Department [place] [address] * eGFR (03/13/2024 12:13 PM ASSISTANT TODDLER TEACHER) eGFR >90 >=60 mL/min/1. 73 m2 Comment: [...] reviewed 2021. Blood 03/13/2024 12:1 3 PM ASSISTANT TODDLER TEACHER 03/13/2024 12:50 PM ASSISTANT TODDLER TEACHER Jennifer Chamberlain NP LAB BLOOD ORDERABLES Fin al Result [facility] Department [place] [address] * Protein / creatinine ratio, urine, random (03/13/2024 12:13 PM ASSISTANT TODDLER TEACHER) Protein, ur, quant 6.6 mg/dL Comment: Interpretive Data No reference range established. Current interpretive data was last revised 2018. Creatinine Ur 46.1 mg/dL [facility] Comment: Interpretive Data No reference range established. Current interpretive data was last revised 2018. Protein/creatinin e ratio 143.2 0.0 - 180.0 mg/g CR [facility] Urine 03/13/2024 12:1 3 PM ASSISTANT TODDLER TEACHER 03/13/2024 12:50 PM ASSISTANT TODDLER TEACHER Jennifer Chamberlain PIPELINE WELDER LAB URINE ORDERABLES Fin al Result Performing Organization Address [facility]/ZIP Co de Phone Number [facility] Department [place] [address] * (ABNORMAL) CBC without differential (03/13/2024 12:13 PM ASSISTANT TODDLER TEACHER) WBC 7.5 3.8 - 9.9 K/cumm Hgb 11.8(L) 11.9 - 15.5 g/dL [facility] Hct 35.2(L) 35.6 - 45.5 % [facility] Plt 255 150 - 400 K/cumm [facility] MPV 9.9 9.1 - 12.[address] [facility] RBC 3.93 3.90 - 5.20 M/cumm [facility] MCV 89.6 81.3 - 96.[address] [facility] MCH 30.0 27.1 - 33.[address] [facility] MCHC 33.5 32.3 - 35.7 g/dL [facility] RDW CV 13.2 11.1 - 14.9 % [facility] RDW SD 43.9 35.7 - 48.[address] [facility] NRBC abs 0.00 0.00 - 0.01 K/cumm [facility] Blood 03/13/2024 12:1 3 PM ASSISTANT TODDLER TEACHER 03/13/2024 12:50 PM ASSISTANT TODDLER TEACHER Jennifer Chamberlain PIPELINE WELDER LAB BLOOD ORDERABLES Fin al Result [facility] Department [place] [address] * (ABNORMAL) Type and screen (03/13/2024 12:13 PM ASSISTANT TODDLER TEACHER) Jorge, indirect Positive(A) ABO Rh O Negative [facility] Blood 03/13/2024 12:1 3 PM ASSISTANT TODDLER TEACHER 03/13/2024 1:10 PM ASSISTANT TODDLER TEACHER Narrative [facility] - 03/13/2024 2:58 PM ASSISTANT TODDLER TEACHER Has the patient had Daratumumab or Isatuximab in the past 6 months?->Unknown Jennifer Chamberlain NP LAB BLOOD BANK TEST ORDE MACRINA Final Result Performing Organization Address [facility]/ZIP Co de Phone Number [facility] Department [place] [address] * Uric acid (03/13/2024 12:13 PM ASSISTANT TODDLER TEACHER) [facility] Uric acid 3.3 2.5 - 7.0 mg/dL Blood 03/13/2024 12:1 3 PM ASSISTANT TODDLER TEACHER 03/13/2024 12:50 PM ASSISTANT TODDLER TEACHER Jennifer Chamberlain PIPELINE WELDER LAB BLOOD ORDERABLES Fin al Result Performing Organization Address [facility] Co de Phone Number [facility] [place] [address] * (ABNORMAL) Comprehensive metabolic panel (03/13/2024 12:13 PM ASSISTANT TODDLER TEACHER) [facility] Sodium 138 135 - 145 mmol/L Potassium, pl 4.1 3.3 - 4.9 mmol/L [facility] Chloride 103 97 - 110 mmol/L [facility] CO2 25 22 - 32 mmol/L [facility] Anion gap 10 2 - 15 mmol/L [facility] BUN 6 6 - 25 mg/dL [facility] Creatinine 0.46(L) 0.60 - 1.10 mg/dL [facility] Glucose 76 70 - 199 mg/dL [facility] Comment: Interpretive Data Fasting glucose [...] Calcium 9.5 8.5 - 10.3 mg/dL [facility] Bilirubin, total 0.3 0.1 - 1.2 mg/dL [facility] Protein, pl 6.9 6.5 - 8.5 g/dL [facility] Albumin 3.7 3.5 - 5.0 g/dL [facility] Alk phos 106 40 - 130 Units/L [facility] ALT 24 7 - 45 Units/L [facility] AST 19 10 - 45 Units/L [facility] Blood 03/13/2024 12:1 3 PM ASSISTANT TODDLER TEACHER 03/13/2024 12:50 PM ASSISTANT TODDLER TEACHER Jennifer Chamberlain PIPELINE WELDER LAB BLOOD ORDERABLES [facility] al Result [facility] Department [place] [address] * POCT urinalysis (Clinitek) (03/13/2024 11:56 AM ASSISTANT TODDLER TEACHER) Color, ur, POC Yellow Yellow Clarity, UA, POC Clear Clear [facility] Glucose, ur, POC Negative Negative [facility] Bilirubin, ur, POC Negative Negative [facility] Ketones, ur, POC Negative Negative [facility] Specific gravity, ur, POC 1.020 1.010 - 1.025 [facility] Blood, ur, POC Negative Negative [facility] pH, ur, POC 7.[address] [facility] Comment: Interpretive Data Urine pH is affected by diet, medications, systemic acid-base disturbances, and renal tubular function. pH may affect urinary stone formation. For example, urine pH below 6.0 may help reduce the tendency for calcium phosphate stones and pH greater than 6.0 may reduce the tendency for uric acid stone formation. Source: [employer]. Last Revised Date: 05-18-2017 Protein, ur, POC Negative Negative [facility] Urobilinogen, ur, POC 0.2 mg/dL mg/dL [facility] Nitrites, ur, POC Negative Negative [facility] Leukocyte esterase, ur, POC Negative Negative [facility] Urine 03/13/2024 11:5 6 AM ASSISTANT TODDLER TEACHER 03/13/2024 11:56 AM ASSISTANT TODDLER TEACHER Mook Villanueva MD LAB POCT ORDERABL ES - DEVICE Final Result Performing Organization Address [facility] Co de Phone Number [facility] [place] [address] * nonstress test - (03/13/2024 10:21 AM ASSISTANT TODDLER TEACHER) Janeth Zacarias NP OB GYNE ORDERABLES Final [...] GENERAL ORDERABLES Final Result Performing Organization Address [facility] Co de Phone Number [facility] Department [place] [address] * RPR Blood (02/28/2024 11:14 AM CDT) RPR Nonreactive Nonreactive Blood 02/28/2024 11:1 4 AM CDT 02/28/2024 11:47 AM CDT Janeth Zacarias NP LAB MICROBIOLOGY - GENERAL ORDERABLES Final Result Performing Organization Address City/[facility] Co de Phone Number [facility] Department [place] [address] * CBC without differential (02/28/2024 11:14 AM CDT) [facility] WBC 8.4 3.8 - 9.9 K/cumm Hgb 12.1 11.9 - 15.5 g/dL [facility] Hct 35.8 35.6 - 45.5 % [facility] Plt 237 150 - 400 K/cumm [facility] MPV 9.9 9.1 - 12.[address] [facility] RBC 3.91 3.90 - 5.20 M/cumm [facility] MCV 91.6 81.3 - 96.[address] [facility] MCH 30.9 27.1 - 33.[address] [facility] MCHC 33.8 32.3 - 35.7 g/dL [facility] RDW CV 13.4 11.1 - 14.9 % [facility] RDW SD 44.9 35.7 - 48.[address] [facility] NRBC abs 0.00 0.00 - 0.01 K/cumm [facility] Blood 02/28/2024 11:1 4 AM CDT 02/28/2024 11:47 AM CDT Janeth Zacarias NP LAB BLOOD ORDERABLE S Final Result Performing Organization Address City/[facility]/ZIP Co de Phone Number [facility] [place] [address] * US Ob Follow Up (02/28/2024 10:02 AM CDT) Pathologist [facility] Fetus# Fetus1 VIEWPOINT Estimated Weight 2,491 g&grams [...] tone andamniotic fluid volume. us Janeth Zacarias PIPELINE WELDER IMG OB US PROCEDURE S Final Result * Hepatitis C antibody Blood (09/18/2023) SCRIBED HCV ab non-reacti ve Blood us Janett Robles NP LAB MICROBIOLOGY - GENERAL O RDERABLES Final Result from Last 3 Months or Most Recently Relevant to Health Maintenance Insurance [facility] Member Subscriber Plan / Payer (Ef fective 2022-Present) Name:Mary Singh Relation to Subscriber:Self Name:Mary Singh Payer ID:[id number] (NAIC) Group ID:Not on file Type:MEDICAID RISK OTHER Address: ATTN: CLAIMS DEPT [place] [id number] [facility] CIG HEALTHCARE PPO [employer] PPO [facility] Advance Directives For more information, please contact: [phone] * Full Code (Latest Code Status on [...] 1:28 PM 12/16/2019 8:31 PM Care Teams Restorer Lace [employer] Textiles Relationship Specialty Start Date End Date No, Physician PCP - General 12/03/23 Jarred Roy MD 2 [facility] [address] [address] 01/30/19 Elma Echevarria NP 2 [facility] [address] [address] Nurse Practitioner General Surgery 12/16/19
--- OUTSIDE RECORDS SUMMARY | 2024-05-10 20:50 | XMS_ITS | Encounter Summary ---
Author Organization [facility] Healthcare Address [address] [place] [address] Care Team Providers Care Manager Internship Name Role Phone Jarred Roy MD Unavailable [phone] Elma Echevarria NP Unavailable No, Physician Primary Care Provider [phone] Reason for Visit * Auth/Cert (Routine) Specialty Diagnoses / Procedures Referred By Contac t Referred To Contact Diagnoses Encounter for induction of labor Procedures n/a Referral ID Status Reason Start Date Expiration Date Visits Re quested Visits Authorized [id number] 1 1 Encounter Details Date Type Department Care Team (Late st Contact Info) Description 04/03/2024 4:20 AM INSURANCE OFFICE MANAGER Anesthesia Event [address] [address] Jese Espinoza MD [address] [place] [address] Kash Garcia MD [address] [place] [address] Anesthesia Record Procedure Summary Procedure Name Responsible [...] drink = 0.6 oz pur e alcohol) [facility] Utilities Answer Date Recorded In the past [...] attend chur ch or jain services? Never 04/04/2024 Do you belong to [...] in a penitentiary (including now)? No 07/21/2021 Bush Depression Scale Answer Date Recorded Bush Depression Scale Total 6 09/03/2021 The thought [...] any time in the past 12 m [place], were you homeless or living in a penitentiary (including now)? No 04/04/2024 Personal Safety Answer Date Recorded Have you ever been in or are you currently in a harmful physical or emotional relationship or is someone making you feel afraid or unsafe? Denies 04/03/2024 Comments No Sex and Gender Information Value Date Recorded Sex Assigned at Not on file Legal Sex Female 11:28 PM INSURANCE OFFICE MANAGER Gender Identity Not on file Sexual [...] Ignacio Ma MD at 04/09/2024 10:19 AM INSURANCE OFFICE MANAGER RANCE OFFICE MANAGER RANCE OFFICE MANAGER * Anesthesia Preprocedure Evaluation - Taylor Finley [...] ??? Migraine 11/19/2018 ??? Astigmatism 09/18/2018 ??? Vwmi-[id number] spots 09/18/2018 ??? Vitamin D deficiency 09/18/2018 [...] Medication protocol when under care of a SENIOR PL SQL DEVELOPER Planned anesthesia: Epidural Postoperative Plan: Postoperative administration [...] and agree to proceed. All questions answered. RANCE OFFICE MANAGER RANCE OFFICE MANAGER RANCE OFFICE MANAGER * Anesthesia Procedure Notes - Kash Garcia [...] column of blood and test dose negative. RANCE OFFICE MANAGER documented in this encounter Plan of Treatment Not on file documented as of this encounter Procedures Procedure Name Priority Date/Time Associated Diagnosis Comments ANESTHESIA EPIDURAL BLOCK Routine 04/03/2024 5:15 AM INSURANCE OFFICE MANAGER documented in this encounter Results * Epidural Block (04/03/2024 5:15 AM INSURANCE OFFICE MANAGER) Narrative Kash Garcia MD - 04/03/2024 5:15 AM INSURANCE OFFICE MANAGER Kash Garcia MD ? 04/03/2024 ??5:16 AM [...] complete., RoutineIndications:Pain New Syringe/Cartridge 04/03/2024 10:52 AM INSURANCE OFFICE MANAGER Rate/Dose Change 04/03/2024 5:02 AM INSURANCE OFFICE MANAGER 8 mL/hr 8 mL/hr Bolus 04/03/2024 5:01 AM INSURANCE OFFICE MANAGER 5 mL lidocaine-EPINEPHrine (XYLOCAINE with EPI) 2 %-1:200,000 preservative free injection epidural, As needed, Starting on Mon04/03/24 at 0451, Anesthesia Intra-op, Indications: Administration of Local AnesthesiaIndications:Administration of Local Anesthesia Given 04/03/2024 4:51 AM INSURANCE OFFICE MANAGER 5 mL documented in this encounter Orders Medications Ordered That Quincy ht Not Have Been Administered Count Last Ordered Date First Ordered Date lidocaine-EPINEPHrine (XYLOC SAMMY with EPI) 2 %-1:200,000 preservative free injection 1 04/03/2024 documented in this encounter Care Teams Manager Internship Relationship Specialty Start Date End Date No, Physician PCP - General 12/03/23 Jarred Roy MD 2 [facility] [address] [address] 01/30/19 Elma Echevarria NP 2 [facility] [address] [address] Nurse Practitioner General Surgery 12/16/19 documented as of this encounter
--- OUTSIDE RECORDS SUMMARY | 2024-05-10 20:50 | XMS_ITS | Encounter Summary ---
Author Organization [facility] Healthcare Address [address] [place] [address] Care Team Providers Care Manager Safe Name Role Phone Jarred Roy MD Unavailable [phone] EyersElma NP Unavailable No, Physician Primary Care Provider Reason for Visit * Reason Onset Date Comments Scheduled Induction 04/01/2024 Encounter Details Date Type Department Care Team (Late st Contact Info) Description 04/01/2024 Telephone [facility] [address] [place] [address] Cassi French RN Scheduled Induction [...] attend chur ch or yazidi services? Never 07/21/2021 Do you belong to [...] in a correction (including now)? No 07/21/2021 Whitefield Depression Scale Answer Date Recorded Whitefield Depression Scale Total 6 09/03/2021 The thought [...] on file Legal Sex Female 11:28 PM INVESTIGATOR WELFARE Gender Identity Not on file Sexual Orientation [...] COVID positive in the last 14 days. [facility] isno longer requiring universal masking in their facilities. If you are having any respiratory symptoms, please wear a mask. If you'd prefer staff to wear a mask in your presence, please let your care team know upon arrival. Day before Induction: L&D is located in the [facility]. Our address is [address] [place] [address]. You may eat and drink regularly. Arrange for child care centre director if needed. Day of IOL: You may have light dinner the evening of your induction before arrival. Take any medicine with a sip of water only if your provider has told you to take it. Turn off of [facility] into Entrance D ([facility]). Parking is located under the [facility]. Please use the Women's & Infants elevator located in the [facility]. Come directly to L&D on the 5th [...] you want to use for your baby's geriatrician. We will need this information prior to [...] lobby, leave the hospital to eat or warehouse order picker food from a restaurant, or a [...] one parking validation during your stay at [facility]. It will be given to you on the day you go home. Multi-use parking passes may be purchased for $20.00 in the cafeteria or gift shop daily from 7 am to 7 pm at discounted zaldivar if your visitor is planning on leaving each night and returning in the morning. We have a mobile pharmacy on site for you to warehouse order picker any new medications your doctor has prescribed for you, at discharge. If this is something you???d like to do, please bring some form of payment with you for this purpose. Patient verbalizes understanding all instructions. No further questions or needs. [facility] phonenumber [phone] provided for patient for any questions or S&S of illness prior to arrival. STIGATOR WELFARE documented in this encounter Plan of Treatment Not on file documented as of this encounter Visit Diagnoses Not on filedocumented in this encounter Care Teams Manager Safe Relationship Specialty Start Date End Date No, Physician PCP - General 12/03/23 Jarred Roy MD [address] [address] 01/30/19 Elma Echevarria NP [address] [address] Nurse Practitioner General Surgery 12/16/19 documented as of this encounter
--- OUTSIDE RECORDS SUMMARY | 2024-05-10 20:50 | XMS_ITS | Encounter Summary ---
Author Organization [facility] Healthcare Address [address] [place] [address] Care Team Providers Care Ticket Marker Name Role Phone Jarred Roy MD Unavailable [phone] EyersElma NP Unavailable No, Physician Primary Care Provider [phone] Reason for Visit * Reason Comments Problem LUND Encounter Details Date Type Department Care Team (Latest Contact Info) Description 03/13/2024 11:36 AM COMMIS CHEF - 03/13/2024 2:22 PM COMMIS CHEF Hospital Encounter [address] [address] Garret Victor MD [address] [address] Mook Villanueva MD [address] [facility] [phone] [place] [address] Discharge Disposition: Discharge to home or self [...] in a half-way (including now)? No 07/21/2021 [place] Depression Scale Answer Date Recorded [place] Depression Scale Total 6 09/03/2021 The thought [...] on file Legal Sex Female 11:28 PM COMMIS CHEF Gender Identity Not on file Sexual Orientation Not on file documented as of this encounter Last Filed Vital Signs Vital Sign Reading Time Taken Comments Blood Pressure 123/60 03/13/2024 1:30 PM COMMIS CHEF Pulse 88 03/13/2024 1:30 PM COMMIS CHEF Temperature 36.7 ??C (98.1 ??F) 03/13/2024 1 1:42 AM COMMIS CHEF Respiratory Rate 18 03/13/2024 11:4 2 AM COMMIS CHEF Oxygen Saturation 97% 03/13/2024 1:30 PM COMMIS CHEF Inhaled Oxygen Concentration - - Weight 147.1 kg (324 lb 3.2 oz) 024 11:42 AM COMMIS CHEF Height 165.1 cm (5' 5 ) 03/13/2024 11:4 2 AM COMMIS CHEF Body Mass Index 53.95 03/13/2024 11:42 AM COMMIS CHEF documented in this encounter Medications at Time [...] 09/18/2023 IDCOOMB Negative 01/17/2024 SCRINDANTIGL negative 09/18/2023 [id number] Nonreactive 02/28/2024 [id number] Nonreactive 09/18/2023 LABRPR Nonreactive 02/28/2024 SCRRPR Non-Reactive [...] history of PPH who presented to the [facility] with a headache. Pt has a longstanding history of headaches, this headache is similar to prior headaches and did not resolve with tylenol at home. Pt treated w/ benadryl, reglan, and fluids w/ headache resolved. Pt normotensive in clinic and in the [facility], ruled out for pre-e w/ SF. Reactive and reassuring NST. Pt to follow up in clinic in 1 week. Emily Munguia MD Maternal Medicine, Fellow Cosigned by Mook Villanueva MD at 03/13/2024 4:17 PM COMMIS CHEF IS CHEF IS CHEF IS CHEF Associated attestation - Mook Villanueva MD - 03/13/2024 4:17 PM COMMIS CHEF I have reviewed the above note for Mary Singh, and I agree with the documented plan by the resident/fellow/NIKKI. Mook Villanueva MD 03/13/2024 documented in this encounter Nursing Notes * Lucía Miner RN - 03/13/2024 2:20 PM CST Pt arrived to [facility] with c/o headache since Monday. Pt rates headache 10/15 unrelieved with tylenol at home. IV started. Ordered labs sent. Ordered medications given with relief. Pt's LUND resolved completely prior to discharge. VSS. NST reactive. IV removed. Pt discharged to home in stable condition with return precautions given. Pt verbalizes understanding and denies further questions or concerns at this time. IS CHEF documented in this encounter Plan of Treatment Not on file documented as of this encounter Procedures Procedure Name Priority Date/Time Associated Diagnosis Comments ANTIBODY IDENTIFICATION STAT 03/13/20 2:58 PM COMMIS CHEF EGFR STAT 03/13/2024 12:13 PM COMMIS CHEF PROTEIN / CREATININE RATIO, URINE, RANDOM STAT 03/13/2024 12:13 PM COMMIS CHEF CBC WITHOUT DIFFERENTIAL STAT 03/13/2024 12:13 PM COMMIS CHEF TYPE AND SCREEN STAT 03/13/2024 12:13 PM COMMIS CHEF URIC ACID STAT 03/13/2024 12:13 PM COMMIS CHEF COMPREHENSIVE METABOLIC PANEL STAT 03/13/2024 12:13 PM COMMIS CHEF POCT URINALYSIS (CLINITEK) Routine 03/13/2024 11:56 AM COMMIS CHEF documented in this encounter Results * Antibody identification (03/13/2024 2:58 PM COMMIS CHEF) Antibody ID 1 Passive Anti-D Blood 03/13/2024 2:58 PM COMMIS CHEF 03/13/2024 2:58 PM COMMIS CHEF Jennifer Chamberlain PROJECT MANAGEMENT INTERN LAB BLOOD BANK TEST GARRISON SCHRADER Final Result [facility] One [facility] Department [place] [address] * eGFR (03/13/2024 12:13 PM COMMIS CHEF) Pathologist [facility] [place] eGFR >90 >=60 mL/min/1. 73 m2 Comment: [...] reviewed 2021. Blood 03/13/2024 12:1 3 PM COMMIS CHEF 03/13/2024 12:50 PM COMMIS CHEF Jennifer Chamberlain PROJECT MANAGEMENT INTERN LAB BLOOD ORDERABLES Fin al Result Performing Organization Address [facility] Co de Phone Number [facility] Department [place] [address] * (ABNORMAL) CBC without differential (03/13/2024 12:13 PM COMMIS CHEF) WBC 7.5 3.8 - 9.9 K/cumm Hgb [...] MEDICAL CENTER Blood 03/13/2024 12:1 3 PM COMMIS CHEF 03/13/2024 12:50 PM COMMIS CHEF Jennifer Chamberlain PROJECT MANAGEMENT INTERN LAB BLOOD ORDERABLES Fin al Result [facility] Department [place] [address] * (ABNORMAL) Comprehensive metabolic panel (03/13/2024 12:13 PM COMMIS CHEF) Sodium 138 135 - 145 mmol/L Potassium, pl 4.1 3.3 - 4.9 mmol/L [facility] Chloride 103 97 - 110 mmol/L [facility] [...] 2022. Calcium 9.5 8.5 - 10.3 mg/dL [facility] Bilirubin, total 0.3 0.1 - 1.2 mg/dL [facility] Protein, pl 6.9 6.5 - 8.5 g/dL [facility] Albumin 3.7 3.5 - 5.0 g/dL [facility] Alk phos 106 40 - 130 Units/L [facility] ALT 24 7 - 45 Units/L [facility] AST 19 10 - 45 Units/L [facility] Blood 03/13/2024 12:1 3 PM COMMIS CHEF 03/13/2024 12:50 PM COMMIS CHEF us Jennifer Chamberlain NP LAB BLOOD ORDERABLES Fin al Result [facility] One [facility] Department [place] [address] * (ABNORMAL) Type and screen (03/13/2024 12:13 PM COMMIS CHEF) Jorge, indirect Positive(A) ABO Rh O Negative [facility] Blood 03/13/2024 12:1 3 PM COMMIS CHEF 03/13/2024 1:10 PM COMMIS CHEF Narrative [facility] - 03/13/2024 2:58 PM COMMIS CHEF Has the patient had Daratumumab or Isatuximab in the past 6 months?->Unknown Jennifer Chamberlain PROJECT MANAGEMENT INTERN LAB BLOOD BANK TEST GARRISON SCHRADER Final Result Performing Organization Address [facility] de Phone Number [facility] [place] [address] * Uric acid (03/13/2024 12:13 PM COMMIS CHEF) Uric acid 3.3 2.5 - 7.0 mg/dL Blood 03/13/2024 12:1 3 PM COMMIS CHEF 03/13/2024 12:50 PM COMMIS CHEF Jennifer Chamberlain PROJECT MANAGEMENT INTERN LAB BLOOD ORDERABLES Fin al Result Performing Organization Address [facility] de Phone Number [facility] of [employer] [place] [address] * Protein / creatinine ratio, urine, random (03/13/2024 12:13 PM COMMIS CHEF) Protein, ur, quant 6.6 mg/dL Comment: Interpretive Data No reference range established. Current interpretive data was last revised 2018. Creatinine Ur 46.1 mg/dL [facility] Comment: Interpretive Data No reference range established. Current interpretive data was last revised 2018. Protein/creatinin e ratio 143.2 0.0 - 180.0 mg/g CR [facility] Urine 03/13/2024 12:1 3 PM COMMIS CHEF 03/13/2024 12:50 PM COMMIS CHEF Jennifer Chamberlain PROJECT MANAGEMENT INTERN LAB URINE ORDERABLES Fin al Result Performing Organization Address [facility] de Phone Number [facility] [place] [address] * POCT urinalysis (Clinitek) (03/13/2024 11:56 AM COMMIS CHEF) Color, ur, POC Yellow Yellow Clarity, UA, POC Clear Clear [facility] Glucose, ur, POC Negative Negative [facility] Bilirubin, ur, POC Negative Negative [facility] Ketones, ur, POC Negative Negative [facility] Specific gravity, ur, POC 1.020 1.010 - 1.025 [facility] Blood, ur, POC Negative Negative [facility] pH, ur, POC 7.0 [facility] Comment: Interpretive Data Urine pH is affected by diet, medications, systemic acid-base disturbances, and renal tubular function. pH may affect urinary stone formation. For example, urine pH below 6.0 may help reduce the tendency for calcium phosphate stones and pH greater than 6.0 may reduce the tendency for uric acid stone formation. Source: [facility] [employer]. Last Revised Date: 05-18-2017 Protein, ur, POC Negative Negative [facility] Urobilinogen, ur, POC 0.2 mg/dL mg/dL [facility] Nitrites, ur, POC Negative Negative [facility] Leukocyte esterase, ur, POC Negative Negative [facility] Urine 03/13/2024 11:5 6 AM COMMIS CHEF 03/13/2024 11:56 AM COMMIS CHEF Mook Villanueva MD LAB POCT ORDERABL ES - DEVICE Final Result [facility] One [facility] Department [place] [address] documented in this encounter Visit Diagnoses Not [...] For 1 dose Given 03/13/2024 12:14 PM COMMIS CHEF 25 mg Lactated Ringer's (LR) bolus 1,000 mL 1,000 mL, intravenous, Once, On Mon03/13/24 at 1215, For 1 dose New Bag 03/13/2024 12:22 PM COMMIS CHEF 1,000 mL metoclopramide (REGLAN) 5 mg/mL injection 10 mg 10 mg, intravenous, Administer over 1 Minutes, Once, On Mon03/13/24 at 1215, For 1 dose Given 03/13/2024 12:17 PM COMMIS CHEF 10 mg sodium chloride 0.9% flush 0.5-20 [...] Recently Administered Medications Times are shown in COMMIS CHEF. Scheduled Medication Order 03/11/2024 03/12/2024 03/13/2024 diphenhydrAMINE [...] 03/13/2024 documented in this encounter Care Teams Ticket Marker Relationship Specialty Start Date End Date No, Physician PCP - General 12/03/23 aJrred Roy MD [address] [facility] [address] 01/30/19 Elma Echevarria NP 2 [facility] [address] [address] Nurse Practitioner General Surgery 12/16/19 documented as of this encounter
--- OUTSIDE RECORDS SUMMARY | 2024-05-10 20:51 | XMS_ITS | Encounter Summary ---
Author Organization [facility] Address [address] [place] [address] Phone Care Team Providers Care Assembly Associate Name Role Phone Jarred Roy MD Unavailable [phone] Elma Echevarria NP Unavailable No, Physician Primary Care Provider [phone] Reason for Referral * Diagnostic Imaging (Routine) - Closed Specialty Diagnoses / Procedures Referred By Loyd medrano Referred To Contact Diagnoses Supervision of high-risk , first trimester Procedures US Ob Follow Up Janeth Zacarias NP [address] [facility] [phone] [place] [address] Phone: tel: fax: [phone] (All Locations) Referral ID Status Reason Start Date Expiration Date Visits Re quested Visits Authorized [id number] Closed 12/13/2023 01/11/2025 1 1 Reason for Visit * Reason Comments High Risk Gestation Encounter Details Date Type Department Care Team (Late st Contact Info) Description 12/13/2023 9:15 AM CDT Office Visit [facility] Maternal- Medicine [address] [facility] 7[address] [place] [address] Supervision of high-risk , first trimester (Primary [...] often do you attend chur ch or samaritan services? Never 07/21/2021 Do you [...] in a correction (including now)? No 07/21/2021 [place] Depression Scale Answer Date Recorded [place] Depression Scale Total 6 09/03/2021 The thought [...] on file Legal Sex Female 11:28 PM DIRECTOR DENTAL SERVICES Gender Identity Not on file Sexual Orientation [...] this encounter Progress Notes * Janeth Zacarias, FIELD CANE SCALE CLERK - 12/13/2023 9:15 AM CDT MFM Return [...] [x] Blue Team Referring Provider: Janett Robles [phone] [] or Medicare Insurance [x] Dating Criteria: [...] [] MOC: [] Method of feeding: [] Senior Drupal Developer: [] PP Depression Discussed: Relevant Orders Urine [...] without differential (01/03/2024 10:30 AM CDT) Pathologist [facility] WBC 8.0 3.8 - 9.9 K/cumm Hgb 11.8(L) 11.9 - 15.5 g/dL [facility] Hct 35.4(L) 35.6 - 45.5 % [facility] Plt 241 150 - 400 K/cumm [facility] MPV 10.0 9.1 - 12.3 fL [facility] RBC 3.81(L) 3.90 - 5.20 M/cumm [facility] MCV 92.9 81.3 - 96.4 fL [facility] MCH 31.0 27.1 - 33.3 pg [facility] MCHC 33.3 32.3 - 35.7 g/dL [facility] RDW CV 13.4 11.1 - 14.9 % [facility] RDW SD 45.6 35.7 - 48.1 fL [facility] NRBC abs 0.00 0.00 - 0.01 K/cumm [facility] Blood 01/03/2024 10:3 0 AM CDT 01/03/2024 11:35 AM CDT us Janeth Zacarias NP LAB BLOOD ORDERABLE S Final Result [facility] One [facility] Department [place] [address] * GTT 50gm 1hr gestational [...] 01/03/2024 11:35 AM CDT us Janeth Zacarias FIELD CANE SCALE CLERK LAB BLOOD ORDERABLE S Final Result [facility] One [facility] Department [place] [address] * US Ob Follow Up (01/03/2024 8:46 [...] - size is AGABreechpresentation. us Janeth Zacarias FIELD CANE SCALE CLERK IMG OB US PROCEDURE S Final Result [...] allergic patients, please contact the laboratory at [phone] to request susceptibility testing * ??* ??* [...] Organism STREPTOCOCCUS AGALACTIAE (GROUP B STREPTOCOCCI) [facility] Organism (CLINICALLY INSIGNIFICANT GR[facility]TH [facility] Urine, clean voided 12/13/2023 12:50 PM CDT 12/13/2023 1:04 PM CDT Narrative [facility] - 12/15/2023 6:35 AM CDT Testing performed by [facility] ([phone]) Janeth Zacarias NP LAB MICROBIOLOGY - GENERAL ORDERABLES Final Result [facility] One [facility] [place] [address] documented in this encounter Visit Diagnoses Diagnosis [...] documented as of this encounter Care Teams Assembly Associate Relationship Specialty Start Date End Date No, Physician PCP - General 12/03/23 Jarred Roy MD [address] [address] 01/30/19 Elma Echevarria NP [address] [address] Nurse Practitioner General Surgery 12/16/19 documented as of this encounter
--- OUTSIDE RECORDS SUMMARY | 2024-05-10 20:51 | XMS_ITS | Encounter Summary ---
Author Organization [facility] Healthcare Address [address] [place] [address] Care Team Providers Care Inventory Representative Name Role Phone Jarred Roy MD Unavailable [phone] EyersElma NP Unavailable No, Physician Primary Care Provider [phone] Reason for Visit * Reason Comments Headache Encounter Details Date Type Department Care Team (Late st Contact Info) Description 12/03/2023 8:01 AM CDT - 12/03/2023 11:49 AM CDT Emergency [facility] Emergency Department [address] [place] [address] Kvng Palm MD [address] [place] [address] Migraine without aura and without status migrainosus, [...] health care facility (including now)? 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 * Migraine Headache (Discharge Care) (Estonian) documented in this encounter Medications at Time [...] Iron deficiency 11/19/2018 Migraine 11/19/2018 Astigmatism 09/18/2018 Rllw-sp-kcid spots 09/18/2018 Vitamin D deficiency 09/18/2018 Chronic [...] ORDERABLES Final R esult Performing Organization Address [facility] Co de Phone Number [facility] ([place]) 1 [facility] [place] [address] * (ABNORMAL) Urinalysis, microscopic only (12/03/2023 8:40 AM CDT) WBC, ur 6-10(A) 0 - 5 /HPF RBC, ur 0-2 0 - 2 /HPF [facility] ([place]) Epithelial cells, squamous, ur 11-20(A) 0 - 5 /HPF [facility] ([place]) Bacteria, ur 3+(A) [facility] ([place]) Mucous, ur Present(A) [facility] ([place]) Culture Reflex Comment Reflex conditions for urine culture (WBC >10) not met. [facility] ([place]) Urine 12/03/2023 8:40 AM CDT 12/03/2023 8:52 AM CDT Kvng Palm MD LAB URINE ORDERABLES Final R esult Performing Organization Address [facility] Co de Phone Number [facility] [address] [facility] [place] [place] [address] * Differential, auto (12/03/2023 8:40 AM CDT) [...] Final R esult [facility] ([place]) 1 [facility] Department [place] [address] * Uric acid (12/03/2023 8:40 AM CDT) Uric acid 2.9 2.5 - 7.0 mg/dL Blood 12/03/2023 8:40 AM CDT 12/03/2023 8:52 AM CDT us Kvng Palm MD LAB BLOOD ORDERABLES Final R esult Performing Organization Address City/[facility]/ZIP Co de Phone Number [facility] ([place] 1 [facility] Department [place] [address] * (ABNORMAL) Urinalysis reflex to microscopic and [...] tendency for uric acid stone formation. Source: [facility] [employer] Current Interpretive Data was last revised on [...] RDERABLES Final Result [facility] 1 [facility] Department [place] [address] * Magnesium (12/03/2023 8:40 AM CDT) Magnesium 1.9 1.4 - 2.5 mg/dL Blood 12/03/2023 8:40 AM CDT 12/03/2023 8:52 AM CDT Kvng Palm MD LAB BLOOD ORDERABLES Final R [facility] Performing Organization Address City/[facility]/ZIP Co de Phone Number [facility] ([place]) [address] [place] [address] * Lactate dehydrogenase (LD) (12/03/2023 8:40 AM CDT) [facility] Lactate dehydrogenase (LDH) 189 100 - 250 Units/L Comment: Hemolysis present. ??Results may be affected. Slightly Hemolyzed Specimen Blood 12/03/2023 8:40 AM CDT 12/03/2023 8:52 AM CDT Kvng Palm MD LAB BLOOD ORDERABLES Final R esult Performing Organization Address [facility] Co de Phone Number [facility] ([place]) 1 [facility] [place] [place] [address] * (ABNORMAL) Comprehensive metabolic panel (12/03/2023 8:40 AM CDT) [facility] Sodium 136 135 - 145 mmol/L Potassium, pl 4.1 3.3 - 4.9 mmol/L [facility] ([place]) Chloride 105 97 - 110 mmol/L [facility] ([place] CO2 20(L) 22 - 32 mmol/L [facility] ([place]) Anion gap 11 2 - 15 mmol/L [facility] BUN 5(L) 6 - 25 mg/dL [facility] ([place]) Creatinine 0.37(L) 0.60 - 1.10 mg/dL [facility] ([place]) Glucose 82 70 - 199 mg/dL [facility] ([place]) Comment: Interpretive Data Fasting glucose >/= 126 [...] - 45 Units/L [facility] ([place]) AST 18 10 - 45 Units/L [facility] ([place]) Comment:Slightly Hemolyzed S pecimen Blood 12/03/2023 8:40 AM CDT 12/03/2023 8:52 AM CDT us Kvng Palm MD LAB BLOOD ORDERABLES Final R esult [facility] ([place]) 1 [facility] Department [place] [address] * (ABNORMAL) CBC with auto differential (12/03/2023 [...] 0.00 0.00 - 0.01 K/cumm [facility]) Blood 12/03/2023 8:40 AM CDT 12/03/2023 8:52 AM CDT us Kvng Palm MD LAB BLOOD ORDERABLES Final R esult [facility] ([place]) 1 [facility] Department [place] [address] documented in this encounter Visit Diagnoses Diagnosis [...] RN) documented in this encounter Care Teams Inventory Representative Relationship Specialty Start Date End Date No, Physician PCP - General 12/03/23 Jarred Roy MD 2 [facility] [address] [address] 01/30/19 Elma Echevarria NP [address] [facility] [address] [address] Nurse Practitioner General Surgery 12/16/19 documented as of this encounter
--- OUTSIDE RECORDS SUMMARY | 2024-05-10 20:51 | XMS_ITS | Encounter Summary ---
Author Organization [facility] Address [address] [place] [address] Phone Care Team Providers Care Staff Mine Warfare Officer Name Role Phone Jarred Roy MD Unavailable [phone] Elma Echevarria NP Unavailable LevyLaura Thornton NP Primary Care Provider Reason for Referral * Diagnostic Imaging (Routine) - Closed Specialty Diagnoses / Procedures Referred By Loyd medrano Referred To Contact Diagnoses Obesity affecting in first trimester, unspecified obesity type Procedures US Ob Limited Janeth Zacarias NP [address] [facility] [phone] [place] [address] Phone: tel: fax: [facility] (All Locations) Referral ID Status Reason Start Date Expiration Date Visits Re quested Visits Authorized [id number] Closed 11/24/2023 12/23/2024 1 1 Reason for Visit * Reason Comments High Risk Gestation Encounter Details Date Type Department Care Team (Late st Contact Info) Description 11/24/2023 9:45 AM CDT Office Visit [facility] Maternal- Medicine [facility] [address] [facility] [address] [place] [address] Supervision of high-risk , first trimester (Primary [...] any clubs o r organizations such as scientologist groups, unions, fraternal or athletic groups, or [...] a skilled nursing (including now)? No 07/21/2021 [place] Depression Scale Answer Date Recorded [place] Depression Scale Total 6 09/03/2021 The thought of harming myself has occurred to me . 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 us Janeth Zacarias CHIEF LIBRARIAN BRANCH OR DEPARTMENT IMG OB US PROCEDURE S Final Result [...] type documented in this encounter Care Teams Staff Mine Warfare Officer Relationship Specialty Start Date End Date Laura Madrid NP [address] [address] [place] [address] PCP - General Nurse Practitioner 02/09/22 12/02/23 Jarred Roy MD [address] [facility] [address] [address] 01/30/19 Elma Echevarria NP [address] [facility] [address] [address] Nurse Practitioner General Surgery 12/16/19 documented as of this encounter
--- OUTSIDE RECORDS SUMMARY | 2024-05-10 20:51 | XMS_ITS | Encounter Summary ---
Author Organization [facility] Healthcare Address [address] [place] [address] Care Team Providers Care Internet Marketing Coordinator Name Role Phone Jarred Roy MD Unavailable [phone] EyersElma NP Unavailable ChathamLaura Thornton NP Primary Care Provider [phone] Encounter Details Date Type Department Care Team (Late st Contact Info) Description 10/17/2023 Orders Only [facility] [address] [place] [address] Татьяна Ortiz MD [address] [address] Proteinuria complicating in first trimester [...] week 07/21/2021 How often do you attend [facility] or jehovah's witness services? Never 07/21/2021 Do you belong to any clubs o r organizations such as anglican groups, unions, fraternal or athletic groups, or [...] in a fci (including now)? No 07/21/2021 [place] Depression Scale Answer Date Recorded [place] Depression Scale Total 6 09/03/2021 The thought of harming myself has occurred to me . 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 Gender Identity Not on file Sexual Orientation Not on file documented as of this encounter Plan of Treatment Not on file documented as of this encounter Visit Diagnoses Diagnosis Proteinuria complicating in first trimester- Primary documented in this encounter Care Teams Internet Marketing Coordinator Relationship Specialty Start Date End Date Laura Madrid NP [address] [facility] [address] [place] [address] PCP - General Nurse Practitioner 02/09/22 12/02/23 Jarred Roy MD [address] [facility] [address] [address] 01/30/19 Elma Echevarria NP [address] [facility] [address] [address] Nurse Practitioner General Surgery 12/16/19 documented as of this encounter
--- OUTSIDE RECORDS SUMMARY | 2024-05-10 20:51 | XMS_ITS | Encounter Summary ---
Author Organization [facility] Healthcare Address [address] [place] [address] Care Team Providers Care Claims Consultant Name Role Phone Jarred Roy MD Unavailable [phone] EyeElma charles NP Unavailable SpencerLaura Thornton NP Primary Care Provider [phone] Reason for Visit * Diagnostic Imaging (Routine) - Pending Review Specialty Diagnoses / Procedures Referred By Contac t Referred To Contact Diagnoses Proteinuria complicating in first trimester Procedures US Retroperitoneal Complete US Kidney Complete Татьяна Ortiz MD [address] [address] Phone: tel: fax: [facility] (All Locations) Referral ID Status Reason Start Date Expiration Date V isits Requested Visits Authorized [id number] Pending Review 10/17/2023 11/15/2024 1 1 Encounter Details Date Type Department Care Team (Latest Contact Info) Description 11/03/2023 9:52 AM CDT - 11/03/2023 11:59 PM CDT Hospital Encounter [facility] [id number] [place] [address] Proteinuria complicating in first trimester Discharge Disposition: [...] any clubs o r organizations such as gnosticism groups, unions, fraternal or athletic groups, or [...] place to sleep or slept in a halfway (including now)? No 07/21/2021 [place] Depression Scale Answer Date Recorded [place] Depression Scale Total 6 09/03/2021 The thought of harming myself has occurred to me . 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 [address] [place] [address] PCP - General Nurse Practitioner 02/09/22 12/02/23 Jarred Roy MD [address] [facility] [address] [address] 01/30/19 Elma Echevarria NP [address] [facility] [address] [address] Nurse Practitioner General Surgery 12/16/19 documented as of this encounter
--- OUTSIDE RECORDS SUMMARY | 2024-05-10 20:51 | XMS_ITS | Encounter Summary ---
Author Organization [facility] Healthcare Address [address] [place] [address] Care Team Providers Care Network Applications Specialist Name Role Phone Jarred Roy MD Unavailable [phone] Elma Echevarria NP Unavailable No, Physician Primary Care Provider [phone] Reason for Referral * Diagnostic Imaging (Routine) - Closed Specialty Diagnoses / Procedures Referred By Contac t Referred To Contact Diagnoses Supervision of high-risk , first trimester Procedures US Ob Follow Up Janeth Zacarias NP [address] [facility] [phone] [place] [address] Phone: tel: fax: [facility] (All Locations) Referral ID Status Reason Start Date Expiration Date Visits Re quested Visits Authorized [id number] Closed 12/13/2023 01/11/2025 1 1 Reason for Visit * Diagnostic Imaging (Routine) - Closed Specialty Diagnoses / Procedures Referred By Contac t Referred To Contact Diagnoses Supervision of high-risk , first trimester Procedures US Ob Follow Up Janeth Zacarias NP [address] [facility] [phone] [place] [address] Phone: tel: fax: [facility] (All Locations) Referral ID Status Reason Start Date Expiration Date Visits Re quested Visits Authorized [id number] Closed 12/13/2023 01/11/2025 1 1 Encounter Details Date Type Department Care Team (Latest Contact Info) Description 01/03/2024 8:45 AM CDT - 01/03/2024 11:59 PM CDT Hospital Encounter [facility] Center for Outpatient [facility] - Ultrasound [address] [facility], 7th Floor, [address] [facility] [place] [address] Supervision of high-risk , first trimester Discharge [...] often do you attend chur ch or alevism services? Never 07/21/2021 Do you belong to [...] in a fci (including now)? 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 us Janeth Zacarias TAX SERVICES INTERN IMG OB US PROCEDURE S Final Result documented in this encounter Visit Diagnoses Diagnosis Supervision of high-risk , first trimester documented in this encounter Care Teams Network Applications Specialist Relationship Specialty Start Date End Date No, Physician PCP - General 12/03/23 Jarred Roy MD [address] [address] 01/30/19 EyeElma charles NP 2 [facility] [place] [address] Nurse Practitioner General Surgery 12/16/19 documented as of this encounter
--- OUTSIDE RECORDS SUMMARY | 2024-05-10 20:51 | XMS_ITS | Encounter Summary ---
Author Organization [facility] Healthcare Address [address] [place] [address] Care Team Providers Care Dope Firer Name Role Phone Jarred Roy MD Unavailable [phone] EyersElma NP Unavailable No, Physician Primary Care Provider [phone] Encounter Details Date Type Department Care Team (Late st Contact Info) Description 01/17/2024 9:30 AM CDT Lab [facility] for Outpatient Health [address] [facility] [place] [address] Rh negative state in antepartum [...] in a fpc (including now)? 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 Department [place] [address] documented in this encounter Visit Diagnoses Diagnosis Rh negative state in antepartum period documented in this encounter Care Teams Dope Firer Relationship Specialty Start Date End Date No, Physician PCP - General 12/03/23 Jarred Roy MD [address] [facility] [address] [address] 01/30/19 Elma Echevarria NP [address] [place] [address] [address] Nurse Practitioner General Surgery 12/16/19 documented as of this encounter
--- OUTSIDE RECORDS SUMMARY | 2024-05-10 20:51 | XMS_ITS | Encounter Summary ---
Author Organization [facility] Address [address] [place] [address] Phone Care Team Providers Care Wood Scrap Handler Name Role Phone Jarred Roy MD Unavailable [phone] Elma Echevarria NP Unavailable Laura Madrid NP Primary Care Provider [phone] Encounter Details Date Type Department Care Team (Late st Contact Info) Description 09/25/2023 Telephone [facility] Obstetrics and Gynecology [facility] [place] [address] Melonie Robbins Social History Tobacco [...] in a penitentiary (including now)? No 07/21/2021 [place] Depression Scale Answer Date Recorded [place] Depression Scale Total 6 09/03/2021 The thought of harming myself has occurred to me . 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 10/12 US 9:15 am at [facility] 7 10/12 OBC 10:15am at [facility] 7 BT Chart reviewed for referral. Please schedule for OBC with ultrasound, depends on gestational age attime of scheduling as to what type of scan, within 2-3 weeks. Should be at [facility] or [facility] due to BMI [facility] 04/10 DX: proteinuria, BMI 50, family hx of spina bifida Shanelle documented in this encounter Plan of Treatment Not on file documented as of this encounter Visit Diagnoses Not on filedocumented in this encounter Care Teams Wood Scrap Handler Relationship Specialty Start Date End Date Laura Madrid NP [address] [place] [address] [address] [place] [address] PCP - General Nurse Practitioner 02/09/22 12/02/23 Jarred Roy MD [address] [facility] [address] [address] 01/30/19 Elma Echevarria NP [address] [facility] [address] [address] Nurse Practitioner General Surgery 12/16/19 documented as of this encounter
--- OUTSIDE RECORDS SUMMARY | 2024-05-10 20:51 | XMS_ITS | Encounter Summary ---
Author Organization [facility] Healthcare Address [address] [place] [address] Care Team Providers Care Maltster Name Role Phone Jarred Roy MD Unavailable [phone] EyersElma NP Unavailable No, Physician Primary Care Provider [phone] Encounter Details Date Type Department Care Team (Late st Contact Info) Description 01/03/2024 9:45 AM CDT Lab [facility] Outpatient Health [address] [facility] [place] [address] Supervision of high-risk , first [...] a group home (including now)? 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 Hct 35.4(L) 35.6 - 45.5 % [facility] Plt 241 150 - 400 K/cumm [facility] MPV 10.0 9.1 - 12.3 fL [facility] RBC 3.81(L) 3.90 - 5.20 M/cumm [facility] MCV 92.9 81.3 - 96.4 fL [facility] MCH 31.0 27.1 - 33.3 pg [facility] MCHC 33.3 32.3 - 35.7 g/dL [facility] RDW CV 13.4 11.1 - 14.9 % [facility] RDW SD 45.6 35.7 - 48.1 fL [facility] NRBC abs 0.00 0.00 - 0.01 K/cumm [facility] Blood 01/03/2024 10:3 0 AM CDT 01/03/2024 11:35 AM CDT us Janeth Zacarias MERGERS AND ACQUISITIONS ATTORNEY LAB BLOOD ORDERABLE S Final Result [facility] Department [place] [address] documented in this encounter Visit Diagnoses Diagnosis Supervision of high-risk , first trimester documented in this encounter Care Teams Maltster Relationship Specialty Start Date End Date No, Physician PCP - General 12/03/23 Jarred Roy MD 2 [facility] [address] [address] [address] 01/30/19 Elma Echevarria NP 2 [facility] [address] [address] Nurse Practitioner General Surgery 12/16/19 documented as of this encounter
--- OUTSIDE RECORDS SUMMARY | 2024-05-10 20:51 | XMS_ITS | Encounter Summary ---
Author Organization [facility] Address [address] [place] [address] Phone Care Team Providers Care Coconut Jelly Roller Name Role Phone Jarred Roy MD Unavailable [phone] Elma Echevarria NP Unavailable No, Physician Primary Care Provider [phone] Reason for Visit * Reason Comments High Risk Gestation Encounter Details Date Type Department Care Team (Late st Contact Info) Description 01/17/2024 9:15 AM CDT Office Visit [facility] Maternal- Medicine [facility] 7th Floor [address] [place] [address] Supervision of high-risk , first [...] often do you attend chur ch or tenriism services? Never 07/21/2021 Do you belong to any clubs o r organizations such as anabaptism groups, unions, fraternal or athletic groups, or [...] in a intermediate (including now)? 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 Gender Identity Not on file Sexual [...] this encounter Progress Notes * Janeth Zacarias, COMMUNICATION TECHNICIAN - 01/17/2024 9:15 AM CDT [facility] Return Visit 01/17/2024 Mary Singh is a [...] first trimester - Primary Overview [x] Full [facility] Care as of 12/13/2023 [x] [employer] email sent 12/12 Referring Provider: Janett Robles [phone] [] or Medicare Insurance [x] Dating Criteria: [...] signed 01/03/2024 [] Method of feeding: [] Physical Therapy Teacher: [] PP Depression Discussed: Proteinuria complicating in [...] pt T-Dap in the right arm LOT: [id number] EXP: 05/19/2025 * Sergio Armando CMA - 01/17/2024 9:15 AM CDT Gave pt Rho (D) Immune Globulin Human Injection in the left Glute LOT: [id number] EXP: 12/18/2024 documented in this encounter Miscellaneous [...] 01/17/2024 documented in this encounter Care Teams Coconut Jelly Roller Relationship Specialty Start Date End Date No, Physician PCP - General 12/03/23 Jarred Roy MD [address] [address] 01/30/19 Elma Echevarria NP [address] [address] Nurse Practitioner General Surgery 12/16/19 documented as of this encounter
--- OUTSIDE RECORDS SUMMARY | 2024-05-10 20:51 | XMS_ITS | Encounter Summary ---
Author Organization [facility] Address [address] [place] [address] Phone Care Team Providers Care Control Panel Operator Name Role Phone Jarred Roy MD Unavailable [phone] Elma Echevarria NP Unavailable NanceLaura Thornton NP Primary Care Provider [phone] Encounter Details Date Type Department Care Team (Late st Contact Info) Description 09/25/2023 Telephone [facility] Obstetrics and Gynecology [facility] [place] [address] Kinjal Mason Social History Tobacco [...] in a prison (including now)? No 07/21/2021 [place] Depression Scale Answer Date Recorded [place] Depression Scale Total 6 09/03/2021 The thought of harming myself has occurred to me . 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 (DM) documented in this encounter Plan of Treatment Not on file documented as of this encounter Visit Diagnoses Not on filedocumented in this encounter Care Teams Control Panel Operator Relationship Specialty Start Date End Date Laura Madrid NP 4 [facility] [address] [place] [address] PCP - General Nurse Practitioner 02/09/22 12/02/23 Jarred Roy MD 2 [facility] [address] [place] [address] 01/30/19 Elma Echevarria NP 2 [facility] [address] [address] Nurse Practitioner General Surgery 12/16/19 documented as of this encounter
--- OUTSIDE RECORDS SUMMARY | 2024-05-10 20:51 | XMS_ITS | Encounter Summary ---
Author Organization [facility] Healthcare Address [address] [place] [address] Care Team Providers Care Geophysics Teacher Name Role Phone Jarred Roy MD Unavailable [phone] Elma Echevarria NP Unavailable FajardoLaura Thornton NP Primary Care Provider [phone] Reason for Referral * Diagnostic Imaging (Routine) - Closed Specialty Diagnoses / Procedures Referred By Contac t Referred To Contact Diagnoses High-risk supervision, unspecified trimester Procedures US Ob 14 Weeks Or Over Janett Robles NP [address] [facility] [address] [address] Phone: tel: fax: [facility] (All Locations) Referral ID Status Reason Start Date Expiration Date Visits Re quested Visits Authorized [id number] Closed 09/25/2023 10/24/2024 1 1 Reason for Visit * Diagnostic Imaging (Routine) - Closed Specialty Diagnoses / Procedures Referred By Contac t Referred To Contact Diagnoses High-risk supervision, unspecified trimester Procedures US Ob 14 Weeks Or Over Janett Robles NP [address] [facility] [address] [place] [address] Phone: tel: fax: [facility] (All Locations) Referral ID Status Reason Start Date Expiration Date Visits Re quested Visits Authorized [id number] Closed 09/25/2023 10/24/2024 1 1 Encounter Details Date Type Department Care Team (Latest Contact Info) Description 10/13/2023 9:15 AM CDT - 10/13/2023 11:59 PM CDT Hospital Encounter [facility] Center for Outpatient Health - Ultrasound [address] [facility], 7th Floor, [address] [place] [address] High-risk supervision, unspecified trimester Discharge Disposition: Discharge [...] in a longterm (including now)? No 07/21/2021 [place] Depression Scale Answer Date Recorded [place] Depression Scale Total 6 09/03/2021 The thought of harming myself has occurred to me . 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 us Janett Robles GEOPHYSICAL LABORATORY DIRECTOR IMG OB US PROCEDURES Final R esult documented in this encounter Visit Diagnoses Diagnosis High-risk supervision, unspecified trimester documented in this encounter Care Teams Geophysics Teacher Relationship Specialty Start Date End Date Laura Madrid NP [address] [place] [address] [facility] [address] [place] [address] PCP - General Nurse Practitioner 02/09/22 12/02/23 Jarred Roy MD [address] [facility] [address] [address] 01/30/19 Elma Echevarria NP [address] [facility] [address] [address] Nurse Practitioner General Surgery 12/16/19 documented as of this encounter
--- OUTSIDE RECORDS SUMMARY | 2024-05-10 20:51 | XMS_ITS | Encounter Summary ---
Author Organization [facility] Healthcare Address [address] [place] [address] Care Team Providers Care Crinkling Machine Operator Name Role Phone Jarred Roy MD Unavailable [phone] Elma Echevarria NP Unavailable No, Physician Primary Care Provider [phone] Reason for Referral * Diagnostic Imaging (Routine) - Pending Review Specialty Diagnoses / Procedures Referred By Contac t Referred To Contact Diagnoses Obesity affecting in first trimester, unspecified obesity type Procedures US Ob Follow Up Janeth Zacarias NP [address] [facility] [phone] [place] [address] Phone: tel: fax: [facility] (All Locations) Referral ID Status Reason Start Date Expiration Date V isits Requested Visits Authorized [id number] Pending Review 01/03/2024 02/01/2025 1 1 * Diagnostic Imaging (Routine) - Closed Specialty Diagnoses / Procedures Referred By Contac t Referred To Contact Diagnoses Obesity affecting in first trimester, unspecified obesity type Procedures US Ob Follow Up Janeth Zacarias NP [address] [facility] [phone] [place] [address] Phone: tel: fax: [facility] (All Locations) Referral ID Status Reason Start Date Expiration Date Visits Re quested Visits Authorized [id number] Closed 01/03/2024 02/01/2025 1 1 Reason for Visit * Diagnostic Imaging (Routine) - Closed Specialty Diagnoses / Procedures Referred By Contac t Referred To Contact Diagnoses Obesity affecting in first trimester, unspecified obesity type Procedures US Ob Follow Up Janeth Zacarias NP [address] [facility] [phone] [place] [address] Phone: tel: fax: [facility] (All Locations) Referral ID Status Reason Start Date Expiration Date Visits Re quested Visits Authorized [id number] Closed 01/03/2024 02/01/2025 1 1 Encounter Details Date Type Department Care Team (Latest Contact Info) Description 01/31/2024 9:00 AM CDT - 01/31/2024 11:59 PM CDT Hospital Encounter [facility] Center for Outpatient Health - Ultrasound [address] [facility], 7th Floor, [address] [place] [address] Obesity affecting in first trimester, [...] often do you attend chur ch or catholic services? Never 07/21/2021 Do you belong [...] in a assisted (including now)? 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 us Janeth Zacarias MANAGED CARE SPECIALIST IMG OB US PROCEDURE S Final Result documented in this encounter Visit Diagnoses Diagnosis Obesity affecting in first trimester, unspecified obesity type Other obesity affecting in third trimester- Primary documented in this encounter Care Teams Crinkling Machine Operator Relationship Specialty Start Date End Date No, Physician PCP - General 12/03/23 Jarred Roy MD [address] [address] 01/30/19 Elma Echevarria NP 2 [facility] [address] [address] Nurse Practitioner General Surgery 12/16/19 documented as of this encounter
--- OUTSIDE RECORDS SUMMARY | 2024-05-10 20:51 | XMS_ITS | Encounter Summary ---
Author Organization [facility] Healthcare Address [address] [place] [address] Care Team Providers Care Cell Room Operator Name Role Phone Jarred Roy MD Unavailable [phone] Elma Echevarria NP Unavailable No, Physician Primary Care Provider [phone] Reason for Referral * Diagnostic Imaging (Routine) - Closed Specialty Diagnoses / Procedures Referred By Contac t Referred To Contact Diagnoses Obesity affecting in first trimester, unspecified obesity type Procedures Ob Limited Janeth Zacarias NP [address] [facility] [id number] [place] [address] Phone: tel: fax: [facility] (All Locations) Referral ID Status Reason Start Date Expiration Date Visits Re quested Visits Authorized [id number] Closed 11/24/2023 12/23/2024 1 1 Reason for Visit * Diagnostic Imaging (Routine) - Closed Specialty Diagnoses / Procedures Referred By Contac t Referred To Contact Diagnoses Obesity affecting in first trimester, unspecified obesity type Procedures Ob Limited Janeth Zacarias NP [address] [facility] [phone] [place] [address] Phone: tel: fax: [facility] (All Locations) Referral ID Status Reason Start Date Expiration Date Visits Re quested Visits Authorized [id number] Closed 11/24/2023 12/23/2024 1 1 Encounter Details Date Type Department Care Team (Latest Contact Info) Description 12/13/2023 8:45 AM CDT - 12/13/2023 11:59 PM CDT Hospital Encounter [facility] Ultrasound [address] [facility], 7th Floor, [address] [place] [address] Obesity affecting in first trimester, unspecified obesity [...] any clubs o r organizations such as advent groups, unions, fraternal or athletic groups, or [...] a nursing home (including now)? 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
--- OUTSIDE RECORDS SUMMARY | 2024-05-10 20:51 | XMS_ITS | Encounter Summary ---
Author Organization [facility] Address [address] [place] [address] Phone Care Team Providers Care Mold Operator Name Role Phone Jarred Roy MD Unavailable [phone] Elma Echevarria NP Unavailable No, Physician Primary Care Provider [phone] Reason for Referral * Diagnostic Imaging (Routine) - Pending Review Specialty Diagnoses / Procedures Referred By Contac t Referred To Contact Diagnoses Obesity affecting in first trimester, unspecified obesity type Procedures US Ob Follow Up Janeth Zacarias NP [address] [facility] [id number] [place] [address] Phone: tel: fax: [facility] (All Locations) Referral ID Status Reason Start Date Expiration Date V isits Requested Visits Authorized [id number] Pending Review 01/03/2024 02/01/2025 1 1 * Diagnostic Imaging (Routine) - Closed Specialty Diagnoses / Procedures Referred By Contac t Referred To Contact Diagnoses Obesity affecting in first trimester, unspecified obesity type Procedures US Ob Follow Up Janeth Zacarias NP [address] [facility] [id number] [place] [address] Phone: tel: fax: [facility] (All Locations) Referral ID Status Reason Start Date Expiration Date Visits Re quested Visits Authorized [id number] Closed 01/03/2024 02/01/2025 1 1 Reason for Visit * Reason Comments High Risk Gestation Encounter Details Date Type Department Care Team (Late st Contact Info) Description 01/03/2024 9:30 AM CDT Office Visit [facility] Maternal- Medicine [address] [facility] 7th Floor [address] [place] [phone] Supervision of high-risk , first trimester (Primary [...] week 07/21/2021 How often do you attend [facility] or islam services? Never 07/21/2021 Do you belong to any clubs o r organizations such as latter day groups, unions, fraternal or athletic groups, or [...] in a mcfp (including now)? 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 us Janeth Zacarias DIRECTOR OF CARDIAC REHABILITATION IMG OB US PROCEDURE S Final Result [...] Primary documented in this encounter Care Teams Mold Operator Relationship Specialty Start Date End Date No, Physician PCP - General 12/03/23 Jarred Roy MD [address] [address] 01/30/19 Elma Echevarria NP 2 [facility] [address] [address] Nurse Practitioner General Surgery 12/16/19 documented as of this encounter
--- OUTSIDE RECORDS SUMMARY | 2024-05-10 20:51 | XMS_ITS | Encounter Summary ---
Author Organization [facility] Address [address] [place] [address] Phone Care Team Providers Care Community Worker Name Role Phone Jarred Roy MD Unavailable [phone] Elma Echevarria NP Unavailable No, Physician Primary Care Provider [phone] Reason for Visit * Reason Onset Date Comments Urine cx, requested to speak with a provider 01/2024 Encounter Details Date Type Department Care Team (Late st Contact Info) Description 12/15/2023 Telephone [facility] Maternal- Medicine [address] [facility] 7th Floor [address] [place] [address] Breanna Quijano RN Urine cx, [...] 07/21/2021 How often do you attend [facility] or church services? Never 07/21/2021 Do you belong to [...] in a half-way (including now)? 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
--- OUTSIDE RECORDS SUMMARY | 2024-05-10 20:51 | XMS_ITS | Encounter Summary ---
Author Organization [facility] Address [address] [place] [address] Phone Care Team Providers Care Safety Investigator Name Role Phone Jarred Roy MD Unavailable [phone] Elma Echevarria NP Unavailable No, Physician Primary Care Provider [phone] Encounter Details Date Type Department Care Team (Late st Contact Info) Description 12/14/2023 Orders Only [facility] Maternal- Medicine [facility] [address] [facility] [address] [place] [address] Janeth Zacarias, NHI [address] [facility] [phone] [place] [address] Social History Tobacco Use Types [...] week 07/21/2021 How often do you attend [facility] or scientology services? Never 07/21/2021 Do you [...] in a penitentiary (including now)? 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
--- OUTSIDE RECORDS SUMMARY | 2024-05-10 20:51 | XMS_ITS | Encounter Summary ---
Author Organization [facility] Address [address] [place] [address] Phone Care Team Providers Care End Stapler Name Role Phone Jarred Roy MD Unavailable [phone] Elma Echevarria NP Unavailable No, Physician Primary Care Provider [phone] Encounter Details Date Type Department Care Team (Late st Contact Info) Description 12/15/2023 Orders Only [facility] Maternal- Medicine [address] [facility] 7th Floor [address] [place] [address] Breanna Quijano RN Social History [...] often do you attend chur ch or pentecostalism services? Never 07/21/2021 Do you [...] in a residential (including now)? 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
--- OUTSIDE RECORDS SUMMARY | 2024-05-10 20:51 | XMS_ITS | Encounter Summary ---
Author Organization [facility] Healthcare Address [address] [place] [address] Care Team Providers Care Recessing Machine Operator Name Role Phone Jarred Roy MD Unavailable [phone] EyeElma charles NP Unavailable ManisteeLaura Thornton NP Primary Care Provider [phone] Encounter Details Date Type Department Care Team (Latest Contact Info) Description 10/13/2023 11:10 AM CDT - 10/13/2023 11:59 PM CDT Hospital Encounter [address] [address] Other proteinuria; Supervision of high-risk [...] 07/21/2021 How often do you attend [facility] or advent services? Never 07/21/2021 Do you belong to [...] in a penitentiary (including now)? No 07/21/2021 [place] Depression Scale Answer Date Recorded [place] Depression Scale Total 6 09/03/2021 The thought of harming myself has occurred to me . 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 [place] [address] * Urinalysis reflex to microscopic (10/13/2023 11:10 AM CDT) Color, ur Straw Yellow Clarity, ur Clear Clear [facility] Specific gravity, ur 1.006 1.003 - 1.030 [facility] pH, urine 7.5 [facility] Comment: Interpretive Data ? Urine pH is affected by diet, medications, systemic acid-base disturbances, and renal tubular function. ??pH may affect urinary stone formation. ??For example, urine pH below 6.0 may help reduce the tendency for calcium phosphate stones and pH greater than 6.0 may reduce the tendency for uric acid stone formation. Source: [facility] [employer] Current Interpretive Data was last revised on 2017 Protein, ur ql Negative Negative [facility] Glucose, ur ql Negative Negative [facility] Ketones, ur Negative Negative [facility] Bilirubin, ur Negative Negative [facility] Blood, ur Negative Negative [facility] Urobilinogen, ur <2.0 <2.0 mg/dL [facility] Nitrite, ur Negative Negative [facility] Leukocyte esterase, ur Negative Negative [facility] UA reflex comment Reflex conditions for microscopic UA not met. [facility] Urine, clean voided 10/13/2023 11:10 AM CDT 10/13/2023 3:26 PM CDT us Geeta Valentine MD LAB URINE ORDERABLES Dilcia l Result [facility] [place] [address] * Protein / creatinine ratio, urine, random (10/13/2023 11:10 AM CDT) Protein, ur, quant <5.0 mg/dL Comment: Interpretive Data No reference range established. Current interpretive data was last revised 2018. Creatinine Ur 17.3 mg/dL [facility] Comment: Interpretive Data No reference range established. Current interpretive data was last revised 2018. Protein/creatini ne ratio See Comment 0.0 - 180.0 mg/g CR [facility] Comment:Unable to Calculate Urine 10/13/2023 11:1 0 AM CDT 10/13/2023 3:26 PM CDT us Geeta Valentine MD LAB URINE ORDERABLES Dilcia l Result [facility] [place] [address] documented in this encounter Visit Diagnoses Diagnosis Other proteinuria Supervision of high-risk , first trimester Proteinuria complicating in first trimester documented in this encounter Care Teams Recessing Machine Operator Relationship Specialty Start Date End Date Laura Madrid NP [address] [place] [address] [facility] [address] [place] [address] PCP - General Nurse Practitioner 02/09/22 12/02/23 Jarred Roy MD 2 [facility] [address] [address] 01/30/19 Elma Echevarria NP 2 [facility] [address] [address] Nurse Practitioner General Surgery 12/16/19 documented as of this encounter
--- OUTSIDE RECORDS SUMMARY | 2024-05-10 20:51 | XMS_ITS | Encounter Summary ---
Author Organization [facility] Healthcare Address [address] [place] [address] Care Team Providers Care Embalmer Assistant Name Role Phone Jarred Roy MD Unavailable [phone] Elma Echevarria NP Unavailable SwiftLaura Thornton NP Primary Care Provider [phone] Reason for Referral * Diagnostic Imaging (Routine) - Closed Specialty Diagnoses / Procedures Referred By Contac t Referred To Contact Diagnoses Body mass index 40.0-44.9, adult ([facility]) Supervision of high-risk , first trimester Proteinuria complicating in first trimester Procedures US Ob Detail Anatomy Single Or First Gestation Janett Robles NP [address] [place] [address] [address] [address] Phone: tel: fax: [facility] (All Locations) Referral ID Status Reason Start Date Expiration Date Visits Re quested Visits Authorized [id number] Closed 10/13/2023 11/11/2024 1 1 Reason for Visit * Diagnostic Imaging (Routine) - Closed Specialty Diagnoses / Procedures Referred By Contac t Referred To Contact Diagnoses Body mass index 40.0-44.9, adult ([facility]) Supervision of high-risk , first trimester Proteinuria complicating in first trimester Procedures US Ob Detail Anatomy Single Or First Gestation Janett Robles V., NHI [address] [facility] [address] [place] [address] Phone: tel: fax: [facility] (All Locations) Referral ID Status Reason Start Date Expiration Date Visits Re quested Visits Authorized [id number] Closed 10/13/2023 11/11/2024 1 1 Encounter Details Date Type Department Care Team (Latest Contact Info) Description 11/24/2023 8:45 AM CDT - 11/24/2023 11:59 PM CDT Hospital Encounter [facility] [address] [facility] [address] [place] [address] Body mass index 40.0-44.9, adult (HCC); [...] week 07/21/2021 How often do you attend [facility] or restoration services? Never 07/21/2021 Do you belong to [...] in a jail (including now)? No 07/21/2021 [place] Depression Scale Answer Date Recorded [place] Depression Scale Total 6 09/03/2021 The thought of harming myself has occurred to me . 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 Gender Identity Not on file Sexual Orientation [...] AM CDT Body mass index 40.0-44.9, adult ([facility]) Supervision of high-risk , first trimester Proteinuria [...] Diagnoses Diagnosis Body mass index 40.0-44.9, adult ([facility]) Body Mass Index 40.0-44.9, adult Supervision of high-risk , first trimester Proteinuria complicating in first trimester documented in this encounter Care Teams Embalmer Assistant Relationship Specialty Start Date End Date Laura Madrid NP [address] [facility] [address] [place] [address] PCP - General Nurse Practitioner 02/09/22 12/02/23 Jarred Roy MD 2 [facility] [address] [address] 01/30/19 Elma Echevarria NP 2 [facility] [address] [address] Nurse Practitioner General Surgery 12/16/19 documented as of this encounter
--- OUTSIDE RECORDS SUMMARY | 2024-05-10 20:51 | XMS_ITS | Encounter Summary ---
Author Organization [facility] Healthcare Address [address] [place] [address] Care Team Providers Care Esthetics Instructor Name Role Phone Jarred Roy MD Unavailable [phone] Elma Echevarria NP Unavailable No, Physician Primary Care Provider [phone] Encounter Details Date Type Department Care Team (Latest Contact Info) Description 12/13/2023 10:29 AM CDT - 12/13/2023 11:59 PM CDT Hospital Encounter [address] [address] Supervision of high-risk , first [...] in a snf (including now)? 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 Gender Identity Not on file Sexual Orientation [...] allergic patients, please contact the laboratory at [phone] to request susceptibility testing * ??* ??* [...] (.) Organism STREPTOCOCCUS AGALACTIAE (GROUP B STREPTOCOCCI) [facility] Organism (CLINICALLY INSIGNIFICANT GROWTH [facility] Urine, clean voided 12/13/2023 12:50 PM CDT 12/13/2023 1:04 PM CDT Narrative [facility] - 12/15/2023 6:35 AM CDT Testing performed by [facility] Microbiology Laboratory ([phone]) aJneth Zacarias NP LAB MICROBIOLOGY - GENERAL ORDERABLES Final Result [facility] Department [place] [address] documented in this encounter Visit Diagnoses Diagnosis Supervision of high-risk , first trimester documented in this encounter Care Teams Esthetics Instructor Relationship Specialty Start Date End Date No, Physician PCP - General 12/03/23 Jarred Roy MD [address] [address] 01/30/19 Elma Echevarria NP 2 [facility] [address] [address] Nurse Practitioner General Surgery 12/16/19 documented as of this encounter
--- OUTSIDE RECORDS SUMMARY | 2024-05-10 20:51 | XMS_ITS | Encounter Summary ---
Author Organization [facility] [employer] [facility] Address [address] [place] [address] Phone Care Team Providers Care Electronics Technology Department Chair Name Role Phone Jarred Roy MD Unavailable [phone] Elma Echevarria NP Unavailable Laura Madrid NP Primary Care Provider [phone] Reason for Referral * Diagnostic Imaging (Routine) - Closed Specialty Diagnoses / Procedures Referred By Loyd medrano Referred To Contact Diagnoses Body mass index 40.0-44.9, adult ([facility]) Supervision of high-risk , first trimester Proteinuria complicating in first trimester Procedures US Ob Detail Anatomy Single Or First Gestation Janett Robles NP [address] [place] [address] [address] [address] Phone: tel: fax: [facility] (All Locations) Referral ID Status Reason Start Date Expiration Date Visits Re quested Visits Authorized [id number] Closed 10/13/2023 11/11/2024 1 1 Reason for Visit * Reason Comments High Risk Gestation Consult * Consultation (Routine) - Closed Specialty Diagnoses / Procedures Referred By Loyd medrano Referred To Contact Maternal and Medicine Diagnoses Body mass index 40.0-44.9, adult ([facility]) Other proteinuria Janett Robles V., BLIND AIDE [address] [facility] [address] [place] [address] Phone: tel: fax: [facility] (All Locations) Referral ID Status Reason Start Date Expiration Date V isits Requested Visits Authorized [id number] Closed Specialty Services Required 09/22/2023 10/21/2024 1 1 Encounter Details Date Type Department Care Team (Late st Contact Info) Description 10/13/2023 10:15 AM CDT Office Visit [facility] Maternal- Medicine [address] [facility] 7th Floor [address] [place] [address] Supervision of high-risk , first [...] week 07/21/2021 [facility] attend [facility] services? Never 07/21/2021 Do you [...] a nursing home (including now)? No 07/21/2021 [place] Depression Scale Answer Date Recorded [place] Depression Scale Total 6 09/03/2021 The thought of harming myself has occurred to me . Never 09/03/2021 Personal Safety Answer Date Recorded Getting School Help Needed Not on file 05/20 Comments Yes Sex and Gender Information Value Date Recorded Sex Assigned at Not on file Legal Sex Female 11:28 PM SENIOR NETWORK SECURITY ENGINEER Gender Identity Not on file [...] PPD1 10.3. Due to atony. Received oxtyocin, PA miso, methergine, hemabate and TXA. Past Medical [...] No Intellectual disability or Fragile X: No Amelia disease: No Other defects or genetic disorders: [...] MD LAB URINE ORDERABLES Dilcia miller Result [facility] Department [place] [address] * Urinalysis reflex to microscopic (10/13/2023 11:10 AM CDT) Color, ur Straw Yellow Clarity, ur Clear Clear [facility] Specific gravity, ur 1.006 1.003 - 1.030 [facility] pH, urine 7.5 [facility] Comment: Interpretive Data ? Urine pH is affected by diet, medications, systemic acid-base disturbances, and renal tubular function. ??pH may affect urinary stone formation. ??For example, urine pH below 6.0 may help reduce the tendency for calcium phosphate stones and pH greater than 6.0 may reduce the tendency for uric acid stone formation. Source: [facility] [employer] Current Interpretive Data was last revised on 2017 Protein, ur ql Negative Negative [facility] Glucose, ur ql Negative Negative [facility] Ketones, ur Negative Negative [facility] Bilirubin, ur Negative Negative [facility] Blood, ur Negative Negative [facility] Urobilinogen, ur <2.0 <2.0 mg/dL [facility] Nitrite, ur Negative Negative [facility] Leukocyte esterase, ur Negative Negative [facility] UA reflex comment Reflex conditions for microscopic UA not met. [facility] Urine, clean voided 10/13/2023 11:10 AM CDT 10/13/2023 3:26 PM CDT us Geeta Valentine MD LAB URINE ORDERABLES Dilcia miller Result [facility] Department [place] [address] * Urine culture Urine, clean voided (10/13/2023 11:10 AM CDT) Report Final Report: Less than 100,000 colonies/mL (clinically insignificant growth based on current clinical standards) Organism (CLINICALLY INSIGNIFICANT GROWTH [facility] Urine, clean voided 10/13/2023 11:10 AM CDT 10/13/2023 4:15 PM CDT Narrative [facility] - 10/14/2023 5:22 PM CDT Testing performed by [facility] ([phone]) us Geeta Valentine MD LAB MICROBIOLOGY - GENERA L ORDERABLES Final Result [facility] Department [place] [address] documented in this encounter Visit Diagnoses Diagnosis [...] 10/13/2023 documented in this encounter Care Teams Electronics Technology Department Chair Relationship Specialty Start Date End Date Laura Madrid NP [address] [facility] [place] [address] PCP - General Nurse Practitioner 02/09/22 12/02/23 Jarred Roy MD 2 [facility] [address] 01/30/19 Elma Echevarria NP 2 [facility]END[facility] S[facility] [address] [address] Nurse Practitioner General Surgery 12/16/19 documented as of this encounter
--- OUTSIDE RECORDS SUMMARY | 2024-05-10 20:52 | XMS_ITS | Encounter Summary ---
Author Organization [facility] Healthcare Address [address] [place] [address] Care Team Providers Care Joinery Machinist Name Role Phone Jarred Roy MD Unavailable [phone] Venecia Turner MD Primary Care Provider [phone] Elma Echevarria NP Unavailable Reason for Visit * Reason Comments Routine Visit Encounter Details Date Type Department Care Team (Late st Contact Info) Description 07/08/2021 3:30 PM HAZARDOUS MATERIAL SPECIALIST Office Visit Obstetrics and Gynecology Clinic [address] [facility] 3rd Floor [address] [address] Harika Abrams MD [address] [facility] [phone] [place] [address] Se Veliz MD [address] [address] Rh negative state in antepartum period (Primary [...] on file Legal Sex Female 11:28 PM HAZARDOUS MATERIAL SPECIALIST Gender Identity Not on file Sexual Orientation Not on file documented as of this encounter Last Filed Vital Signs Vital Sign Reading Time Taken Comments Blood Pressure 133/68 07/08/2021 3:43 PM HAZARDOUS MATERIAL SPECIALIST Pulse 95 07/08/2021 3:43 PM HAZARDOUS MATERIAL SPECIALIST Temperature - - Respiratory Rate - - Oxygen Saturation 97% 07/08/2021 3:43 PM HAZARDOUS MATERIAL SPECIALIST Inhaled Oxygen Concentration - - Weight 134.4 kg (296 lb 4.8 oz) 07/08/2021 3:43 PM HAZARDOUS MATERIAL SPECIALIST Height - - Body Mass Index 49.31 06/22/2021 12:59 PM HAZARDOUS MATERIAL SPECIALIST documented in this encounter Discharge Disposition [...] [x] Method of feeding: Plans breast [] Subsurface Augmentee Elint Operator: [] Car seat: [] PP Depression Counseling [x] Attg visits (11/08) Relevant Orders POCT urinalysis dipstick (Completed) RTC 1 weeks. Reviewed [facility] precautions, hospital delivery planning. COVID screening to be ordered atnext visit. Patient seen and discussed with Dr. Arias. Se Veliz MD PGY-4 (BARBERING INSTRUCTOR) [phone] Cosigned by Kerry Arias MD at 07/11/2021 2:26 PM HAZARDOUS MATERIAL SPECIALIST RDOUS MATERIAL SPECIALIST RDOUS MATERIAL SPECIALIST Associated attestation - Kerry Arias MD - 07/11/2021 2:26 PM HAZARDOUS MATERIAL SPECIALIST I have seen and examined the patient. I agree with the findings and plan of care as documented in the resident/fellow's note. Patient is at 37w4d here for return OB visit. Return to office in one week. [facility] precautions reviewed. Kerry Arias MD documented in this encounter Plan of Treatment Not on file documented as of this encounter Procedures Procedure Name Priority Date/Time Associated Diagnosis Comments POCT URINALYSIS DIPSTICK Routine 07/08/2021 3:51 PM HAZARDOUS MATERIAL SPECIALIST Supervision of other normal , antepartum documented in this encounter Results * (ABNORMAL) POCT urinalysis dipstick (07/08/2021 3:51 PM HAZARDOUS MATERIAL SPECIALIST) Glucose, ur, POC Negative Negative mg/dL Ketones, ur, POC Negative Negative Blood, ur, POC Negative Negative Protein, ur, POC Trace(A) Negative Nitrite, ur, POC Negative Negative Leukocytes, ur, POC Negative Negative Lot Number [id number] Urine 07/08/2021 3:51 PM HAZARDOUS MATERIAL SPECIALIST Se Veliz MD POINT OF CARE TEST ORDER CHILO Final Result documented in this encounter Visit Diagnoses Diagnosis Rh negative state in antepartum period- Primary Supervision of other normal , antepartum Maternal obesity affecting , antepartum documented in this encounter Care Teams Joinery Machinist Relationship Specialty Start Date End Date Venecia Turner MD [address] [place] [address] DR LEXIE Gramajo [facility] [address] [place] [address] PCP - General 12/11/19 07/21/21 Jarred Roy MD [address] [facility] [address] [place] [address] 01/30/19 Elma Echevarria NP [address] [place] [address] DR LEXIE Gramajo [facility] [address] [place] [address] Nurse Practitioner General Surgery 12/16/19 documented as of this encounter
--- OUTSIDE RECORDS SUMMARY | 2024-05-10 20:52 | XMS_ITS | Encounter Summary ---
Author Organization [facility] Healthcare Address [address] [place] [address] Care Team Providers Care Renewal Specialist Name Role Phone Jarred Roy MD Unavailable [phone] Venecia Turner MD Primary Care Provider [phone] Elma Echevarria NP Unavailable Reason for Referral * (Routine) - Closed Specialty Diagnoses / Procedures Referred By Contac t Referred To Contact Diagnoses Supervision of other normal , antepartum Procedures Labor Induction - Se Veliz MD Phone: tel: fax: [address] [address] Referral ID Status Reason Start Date Expiration Date Visits Re quested Visits Authorized [id number] Closed 06/23/2021 07/23/2022 1 1 TABLE OPERATOR Encounter Details Date Type Department Care Team (Late st Contact Info) Description 06/23/2021 3:30 PM BURN TABLE OPERATOR Office Visit Obstetrics and Gynecology Clinic [address] [facility] 3rd Floor [address] [place] [address] Harika Abrams MD [address] [facility] [phone] [place] [address] Se Veliz MD [address] [address] Supervision of other normal , antepartum (Primary [...] on file Legal Sex Female 11:28 PM BURN TABLE OPERATOR Gender Identity Not on file Sexual Orientation Not on file documented as of this encounter Last Filed Vital Signs Vital Sign Reading Time Taken Comments Blood Pressure 113/79 06/23/2021 3:40 PM BURN TABLE OPERATOR Pulse 84 06/23/2021 3:40 PM BURN TABLE OPERATOR Temperature 36.7 ??C (98 ??F) 06/23/2021 3:40 PM BURN TABLE OPERATOR Respiratory Rate - - Oxygen Saturation 98% 06/23/2021 3:40 PM BURN TABLE OPERATOR Inhaled Oxygen Concentration - - Weight 132.1 kg (291 lb 3.2 oz) 06/23/2021 3:40 PM BURN TABLE OPERATOR Height - - Body Mass Index 48.46 06/22/2021 12:59 PM BURN TABLE OPERATOR documented in this encounter Patient Instructions * Patient Instructions* Se Veliz MD - 06/23/2021 3:30 PM BURN TABLE OPERATOR Contact us Office hours: Monday-Monday 8:30 AM-4:30 PM Phone number: [phone] Daytime: Call us if you have questions [...] medical problem, you can call us at [phone]. Please wait until the clinic is open for non-urgent needs as this emergency line cannot help with appointments, paperwork or prescriptions. If you have an emergency and cannot wait, please call 911 or go to the [facility] Emergency room. If you are having a problem with your or are in labor you can go to the [facility] (check in near elevator on first floor) [address] [facility], 5th [place] [address]. TABLE OPERATOR documented in this encounter Discharge Disposition Disposition Code Departure Means Destination Discharge to home or self care documented in this encounter Progress Notes * Se Veliz MD - 06/23/2021 3:30 PM CST OB RETURN VISIT 06/23/2021 Subjective: Mary Licona is a 21 y.o. at 35w2d who presents for her return [facility]. [facility] [...] [x] Method of feeding: Plans breast [] Import And Export Clerk: [] Car seat: [] PP Depression [...] GBS Patient seen and discussed with Dr. Butterfield. Se Veliz MD PGY-4 (SHOWCASE MAKER) [phone] Cosigned by Ileana Butterfield MD at 06/28/2021 12:29 AM BURN TABLE OPERATOR TABLE OPERATOR TABLE OPERATOR Associated attestation - Ileana Butterfield MD - 06/28/2021 12:29 AM BURN TABLE OPERATOR I have seen and examined the patient. [...] POCT URINALYSIS DIPSTICK Routine 06/23/2021 3:44 PM BURN TABLE OPERATOR Supervision of other normal , antepartum documented in this encounter Results * POCT urinalysis dipstick (06/23/2021 3:44 PM BURN TABLE OPERATOR) Glucose, ur, POC Negative Negative mg/dL Ketones, ur, POC Negative Negative Blood, ur, POC Negative Negative Protein, ur, POC Negative Negative Nitrite, ur, POC Negative Negative Leukocytes, ur, POC Negative Negative Lot Number [id number] Urine 06/23/2021 3:44 PM BURN TABLE OPERATOR us Se Veliz MD POINT OF CARE TEST ORDER CHILO Final Result documented in this encounter Visit Diagnoses Diagnosis Supervision of other normal , antepartum- Primary Maternal obesity affecting , antepartum Rh negative state in antepartum period Elevated blood pressure affecting , antepartum Family history of neural tube defect documented in this encounter Care Teams Renewal Specialist Relationship Specialty Start Date End Date Venecia Turner MD [address] [facility] [address] LEXIE Gramajo [facility] [address] [place] [address] PCP - General 12/11/19 07/21/21 Jarred Roy MD [address] [facility] [address] [place] [address] 01/30/19 Elma Echevarria NP [address] [facility] [address] LEX[address] Gramajo [facility] [address] [place] [address] Nurse Practitioner General Surgery 12/16/19 documented as of this encounter
--- OUTSIDE RECORDS SUMMARY | 2024-05-10 20:52 | XMS_ITS | Encounter Summary ---
Author Organization [facility] Healthcare Address [address] [place] [address] Care Team Providers Care Jockey'S Agent Name Role Phone Jarred Roy MD Unavailable [phone] Venecia Turner MD Primary Care Provider [phone] Elma Echevarria NP Unavailable Reason for Referral * Diagnostic Imaging (Routine) - Closed Specialty Diagnoses / Procedures Referred By Contac t Referred To Contact Diagnoses Family history of neural tube defect Procedures US Ob Detail Anatomy Single Or First Gestation Se Veliz MD Phone: tel: fax: [facility] (All Locations) Referral ID Status Reason Start Date Expiration Date Visits Re quested Visits Authorized [id number] Closed 02/09/2021 03/11/2022 1 1 TBAND DECORATING MACHINE OPERATOR Reason for Visit * Diagnostic Imaging (Routine) - Closed Specialty Diagnoses / Procedures Referred By Contac t Referred To Contact Diagnoses Family history of neural tube defect Procedures US Ob Detail Anatomy Single Or First Gestation Se Veliz MD Phone: tel: fax: [facility] (All Locations) Referral ID Status Reason Start Date Expiration Date Visits Re quested Visits Authorized [id number] Closed 02/09/2021 03/11/2022 1 1 Encounter Details Date Type Department Care Team (Latest Contact Info) Description 03/26/2021 10:58 AM SWEATBAND DECORATING MACHINE OPERATOR - 03/26/2021 11:59 PM SWEATBAND DECORATING MACHINE OPERATOR Hospital Encounter [facility] Center for Outpatient Health - Ultrasound [address] [facility] [place] [address] Harika Abrams MD [address] [facility] [phone] [place], [place] [id number] Linnette Garcia MD [address] [facility] Floor [address] [place], [place] [id number] Family history of neural tube defect Discharge [...] on file Legal Sex Female 11:28 PM SWEATBAND DECORATING MACHINE OPERATOR Gender Identity Not on file [...] Read Routine (OP Routine) 03/26/2021 10:58 AM SWEATBAND DECORATING MACHINE OPERATOR Family history of neural tube defect documented in this encounter Results * US Ob Detail Anatomy Single Or First Gestation (03/26/2021 10:58 AM SWEATBAND DECORATING MACHINE OPERATOR) Fetus# Fetus1 VIEWPOINT Placenta Details anterior, Previa-no, no placental masses VIEWPOINT Estimated Weight 518 g&grams VIEWPOINT Presentation Vertex VIEWPOINT Anatomical Region Laterality Modality Body N/A Ultrasound 03/26/2021 11:0 7 AM SWEATBAND DECORATING MACHINE OPERATOR us Se Veliz MD IMG OB US PROCEDURES Fin al Result documented in this encounter Visit Diagnoses Diagnosis Family history of neural tube defect documented in this encounter Care Teams Jockey'S Agent Relationship Specialty Start Date End Date Venecia Turner MD [address] [place] [address] DR LEXIE Gramajo [facility] [address] [place] [address] PCP - General 12/11/19 07/21/21 Jarred Roy MD [facility] [address] [place] [address] 01/30/19 Elma Echevarria NP [address] [place] [address] DR LEXIE Gramajo [facility] [address] [place] [address] Nurse Practitioner General Surgery 12/16/19 documented as of this encounter
--- OUTSIDE RECORDS SUMMARY | 2024-05-10 20:52 | XMS_ITS | Encounter Summary ---
Author Organization [facility] Healthcare Address [address] [place] [address] Care Team Providers Care Planner Internship Name Role Phone Jarred Roy MD Unavailable [phone] Venecia Turner MD Primary Care Provider [phone] Elma Echevarria NP Unavailable Encounter Details Date Type Department Care Team (Late st Contact Info) Description 07/08/2020 Telephone [facility] [address] [place] [address] Deanne Blankenship RDMS Social History Tobacco Use Types Packs/Day Years Used Date Smoking Tobacco: Never Smokeless Tobacco: Never Alcohol Use Standard Drinks/Week Comments No 0 (1 standard drink = 0.6 oz pur e alcohol) Comments Unknown Sex and Gender Information Value Date Recorded Sex Assigned at Not on file Legal Sex Female 11:28 PM CAR STARTER Gender Identity Not on file Sexual Orientation Not on file documented as of this encounter Miscellaneous Notes * Telephone Encounter - Deanne Blankenship RDMS - 07/08/2020 2:27 PM CAR STARTER Covid 19 prescreen completed STARTER documented in this encounter Plan of Treatment Not on file documented as of this encounter Visit Diagnoses Not on filedocumented in this encounter Care Teams Planner Internship Relationship Specialty Start Date End Date Venecia Turner MD [address] [place] [address] DR LEXIE Gramajo [facility] [address] [place] [address] PCP - General 12/11/19 07/21/21 Jarred Roy MD 2 [facility] [address] [place] [address] 01/30/19 EyeElma charles NP [address] [facility] [address] LEXIE Gramajo [facility] [address] [place] [address] Nurse Practitioner General Surgery 12/16/19 documented as of this encounter
--- OUTSIDE RECORDS SUMMARY | 2024-05-10 20:52 | XMS_ITS | Encounter Summary ---
Author Organization [facility] Healthcare Address [address] [place] [address] Care Team Providers Care Body Straightener Name Role Phone Jarred Roy MD Unavailable [phone] Elma Echevarria NP Unavailable KenedyLaura Thornton NP Primary Care Provider [phone] Reason for Referral * Diagnostic Imaging (Routine) - Closed Specialty Diagnoses / Procedures Referred By Contac t Referred To Contact Diagnoses Other specified disorders of amniotic fluid and membranes, unspecified trimester, other fetus Procedures US OB Under 14 Weeks Janett Robles NP [address] [place] [address] DR LEXIE Gramajo [address] [address] Phone: tel: fax: [address] [phone] Referral ID Status Reason Start Date Expiration Date Visits Re quested Visits Authorized [id number] Closed 08/15/2023 09/13/2024 1 1 Reason for Visit * Diagnostic Imaging (Routine) - Closed Specialty Diagnoses / Procedures Referred By Contac t Referred To Contact Diagnoses Other specified disorders of amniotic fluid and membranes, unspecified trimester, other fetus Procedures US OB Under 14 Weeks Janett Robles NP [address] [facility] [address] LEX[address] Gramajo [address] [address] Phone: tel: fax: [address] [phone] Referral ID Status Reason Start Date Expiration Date Visits Re quested Visits Authorized [id number] Closed 08/15/2023 09/13/2024 1 1 Encounter Details Date Type Department Care Team (Latest Contact Info) Description 08/28/2023 10:08 AM CDT - 08/28/2023 11:59 PM CDT Hospital Encounter [facility] 1 [place] [address] Other specified disorders of amniotic fluid and [...] often do you attend chur ch or rastafari services? Never 07/21/2021 Do you belong to [...] in a chcf (including now)? No 07/21/2021 [place] Depression Scale Answer Date Recorded [place] Depression Scale Total 6 09/03/2021 The thought of harming myself has occurred to me . Never 09/03/2021 Personal Safety Answer Date Recorded Getting School Help Needed Not on file 05/20 Comments No Sex and Gender Information Value Date Recorded Sex Assigned at Not on file Legal Sex Female 11:28 PM OPAL MINER Gender Identity Not on file Sexual Orientation [...] PM T: ??08/28/2023 12:52 PM Report ID: [id number] Reading Location: [id number] Procedure Note Stas Horta Jr., MD - [...] Stas Horta M.D. CH: ALDAIR Report ID: [id number] Reading Location: [id number] us Janett Robles ANIMAL PHYSIOLOGY TEACHER IMG OB US PROCEDURES Final R esult documented in this encounter Visit Diagnoses Diagnosis Other specified disorders of amniotic fluid and membranes, unspecified trimester, other fetus documented in this encounter Care Teams Body Straightener Relationship Specialty Start Date End Date Laura Madrid NP [address] [facility] [address] [place] [address] PCP - General Nurse Practitioner 02/09/22 12/02/23 Jarred Roy MD [address] [facility] [address] [address] 01/30/19 Elma Echevarria NP [address] [facility] [address] [address] Nurse Practitioner General Surgery 12/16/19 documented as of this encounter
--- OUTSIDE RECORDS SUMMARY | 2024-05-10 20:52 | XMS_ITS | Encounter Summary ---
Author Organization [facility] Healthcare Address [address] [place] [address] Care Team Providers Care Hip Hop Performers Name Role Phone Jarred Roy MD Unavailable [phone] Elma Echevarria NP Unavailable McdonaldLaura Thornton NP Primary Care Provider [phone] Reason for Referral * Diagnostic Imaging (Routine) - Pending Review Specialty Diagnoses / Procedures Referred By Contac t Referred To Contact Diagnoses Encounter for supervision of normal , antepartum, unspecified Procedures US OB Under 14 Weeks Janett Robles NP [address] [place] [address] DR LEXIE Gramajo [address] [place] [address] Phone: tel: fax: [address] [phone] Referral ID Status Reason Start Date Expiration Date V isits Requested Visits Authorized [id number] Pending Review 08/09/2023 09/07/2024 1 1 Reason for Visit * Diagnostic Imaging (Routine) - Pending Review Specialty Diagnoses / Procedures Referred By Contac t Referred To Contact Diagnoses Encounter for supervision of normal , antepartum, unspecified Procedures US OB Under 14 Weeks Janett Robles NP [address] [place] [address] DR LEXIE Gramajo [address] [place] [address] Phone: tel: fax: [address] [phone] Referral ID Status Reason Start Date Expiration Date V isits Requested Visits Authorized [id number] Pending Review 08/09/2023 09/07/2024 1 1 Encounter Details Date Type Department Care Team (Latest Contact Info) Description 08/10/2023 5:30 PM CDT - 08/10/2023 11:59 PM CDT Hospital Encounter [facility] Ultrasound [facility] [place], [place] [address] Encounter for supervision of normal , antepartum, [...] a skilled nursing (including now)? No 07/21/2021 Lynch Depression Scale Answer Date Recorded Lynch Depression Scale Total 6 09/03/2021 The thought of harming myself has occurred to me . Never 09/03/2021 Personal Safety Answer Date Recorded Getting School Help Needed Not on file 05/20 Comments No Sex and Gender Information Value Date Recorded Sex Assigned at Not on file Legal Sex Female 11:28 PM PUBLIC RELATIONS PROFESSIONAL Gender Identity Not on file Sexual Orientation [...] AM T: ??08/11/2023 8:25 AM Report ID: [id number] Reading Location: ??[id number] Procedure Note Stas Horta Jr., MD - [...] by Stas Horta M.D. CH: Report ID: [id number] Reading Location: [id number] us Janett Robles NP IMG OB US PROCEDURES Final R esult documented in this encounter Visit Diagnoses Diagnosis Encounter for supervision of normal , antepartum, unspecified documented in this encounter Care Teams Hip Hop Performers Relationship Specialty Start Date End Date Laura Madrid NP 4 [facility] [address] [place] [address] PCP - General Nurse Practitioner 02/09/22 12/02/23 Jarred Roy MD [address] [facility] [address] [place] [address] 01/30/19 Elma Echevarria NP [address] [facility] [address] [address] [place] [address] Nurse Practitioner General Surgery 12/16/19 documented as of this encounter
--- OUTSIDE RECORDS SUMMARY | 2024-05-10 20:52 | XMS_ITS | Encounter Summary ---
Author Organization [facility] Healthcare Address [address] [place] [address] Care Team Providers Care Recreation Worker Name Role Phone Jarred Roy MD Unavailable [phone] Venecia Turner MD Primary Care Provider [phone] Elma Echevarria NP Unavailable Encounter Details Date Type Department Care Team (Late st Contact Info) Description 01/15/2021 Telephone Obstetrics and Gynecology Clinic [address] [facility] 3rd Floor [address] [place] [address] Faina Morales RN Social History Tobacco Use Types Packs/Day Years Used Date Smoking Tobacco: Never Smokeless Tobacco: Never Alcohol Use Standard Drinks/Week Comments No 0 (1 standard drink = 0.6 oz pur e alcohol) Comments Unknown Sex and Gender Information Value Date Recorded Sex Assigned at Not on file Legal Sex Female 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
--- OUTSIDE RECORDS SUMMARY | 2024-05-10 20:52 | XMS_ITS | Encounter Summary ---
Author Organization [facility] Address [address] [facility] [address] [place] [address] Care Team Providers Care Mountain Or Glacier Guide Name Role Phone Jarred Roy MD Unavailable [phone] Venecia Turner MD Primary Care Provider [phone] EyersElma NP Unavailable Encounter Details Date Type Department Care Team (Late st Contact Info) Description 12/17/2019 Orders Only [facility] Surgery 4 [facility] [address] [place] [address] Bryson Clark MD [address] [place] [address] [address] [place] [address] Social History Tobacco Use Types Packs/Day Years Used Date Smoking Tobacco: Never Smokeless Tobacco: Never Alcohol Use Standard Drinks/Week Comments No 0 (1 standard drink = 0.6 oz pur e alcohol) Comments No Sex and Gender Information Value Date Recorded Sex Assigned at Not on file Legal Sex Female 11:28 PM LICENSED PRACTICAL NURSE Gender Identity Not on file Sexual [...] documented as of this encounter Care Teams Mountain Or Glacier Guide Relationship Specialty Start Date End Date Venecia Turner MD [address] [facility] [address] LEXIE Gramajo [facility] [address] [place] [address] PCP - General 12/11/19 07/21/21 Jarred Roy MD 2 [facility] [address] [place] [address] 01/30/19 Elma Echevarria NP [address] [facility] [address] LEXIE Gramajo [facility] [address] [place] [address] Nurse Practitioner General Surgery 12/16/19 documented as of this encounter
--- OUTSIDE RECORDS SUMMARY | 2024-05-10 20:52 | XMS_ITS | Encounter Summary ---
Author Organization [facility] Healthcare Address [address] [place] [address] Care Team Providers Care Truck Sales Representative Name Role Phone Jarred Roy MD Unavailable [phone] Venecia Turner MD Primary Care Provider [phone] Elma Echevarria NP Unavailable Reason for Referral * Diagnostic Imaging (Routine) - Closed Specialty Diagnoses / Procedures Referred By Contac t Referred To Contact Diagnoses Abnormal uterine and vaginal bleeding, unspecified Procedures US Pelvis W Endovaginal Patricia Robles NP [address] [place] [address] DR LEXIE Gramajo [address] [address] Phone: tel: fax: [address] [phone] Referral ID Status Reason Start Date Expiration Date Visits Re quested Visits Authorized [id number] Closed 06/11/2020 07/11/2021 1 1 R SPECIAL AGENT Reason for Visit * Diagnostic Imaging (Routine) - Closed Specialty Diagnoses / Procedures Referred By Contac t Referred To Contact Diagnoses Abnormal uterine and vaginal bleeding, unspecified Procedures US Pelvis W Endovaginal Patricia Robles NP [address] [place] [address] DR LEXIE Gramajo [address] [address] Phone: tel: fax:[phone] [facility] [address] [place] [address] Referral ID Status Reason Start Date Expiration Date Visits Re quested Visits Authorized [id number] Closed 06/11/2020 07/11/2021 1 1 Encounter Details Date Type Department Care Team (Latest Contact Info) Description 07/10/2020 1:31 PM CYBER SPECIAL AGENT - 07/10/2020 11:59 PM CYBER SPECIAL AGENT Hospital Encounter [facility] [address] [place] [address] Deyvi James MD [address] [facility] [address] LEXIE Gramajo [address] [address] Patricia Robles NP [address] [facility] [address] LEXIE Gramajo [address] [address] Abnormal uterine and vaginal bleeding, unspecified Discharge [...] file Legal Sex Female 11:28 PM CYBER SPECIAL AGENT Gender Identity Not on file Sexual [...] Read Routine (OP Routine) 07/10/2020 2:42 PM CYBER SPECIAL AGENT Abnormal uterine and vaginal bleeding, unspecified documented in this encounter Results * US Pelvis W Endovaginal (07/10/2020 2:42 PM CYBER SPECIAL AGENT) Anatomical Region Laterality Modality Pelvis N/A Ultrasound 07/10/2020 3:36 PM CYBER SPECIAL AGENT Impressions 07/10/2020 3:44 PM CYBER SPECIAL AGENT 1. ??Essentially unremarkable pelvic ultrasound. 2. ??Trace fluid within the cervix, nonspecific. 3. ??Left ovary 2 cm dominant follicle. Electronically signed by: Bryson Barry M.D. Narrative 07/10/2020 3:44 PM CYBER SPECIAL AGENT EXAMINATION: US PELVIS W ENDOVAGINAL ORDER[facility] HEALTHCARE [...] by: Bryson Barry M.D. us Patricia Robles CUSTOMS AND BORDER PROTECTION INSPECTOR IMG US PROCEDURES Final Resu lt documented in this encounter Visit Diagnoses Diagnosis Abnormal uterine and vaginal bleeding, unspecified documented in this encounter Care Teams Truck Sales Representative Relationship Specialty Start Date End Date Venecia Turner MD [address] [place] [address] DR LEXIE Gramajo [facility] [address] [place] [address] PCP - General 12/11/19 07/21/21 Jarred Roy MD 2 [facility] [address] [place] [address] 01/30/19 Elma Echevarria NP [address] [place] [address] DR LEXIE Gramajo [facility] [address] [place] [address] Nurse Practitioner General Surgery 12/16/19 documented as of this encounter
--- OUTSIDE RECORDS SUMMARY | 2024-05-10 20:52 | XMS_ITS | Encounter Summary ---
Author Organization [facility] Healthcare Address [address] [place] [address] Care Team Providers Care Reverser Name Role Phone Jarred Roy MD Unavailable [phone] Venecia Turner MD Primary Care Provider [phone] Elma Echevarria NP Unavailable Encounter Details Date Type Department Care Team (Late st Contact Info) Description 01/25/2021 Telephone Obstetrics and Gynecology Clinic [address] [facility] 3rd Floor [address] [place] [address] Faina Morales RN Social History Tobacco Use Types Packs/Day Years Used Date Smoking Tobacco: Never Smokeless Tobacco: Never Alcohol Use Standard Drinks/Week Comments No 0 (1 standard drink = 0.6 oz pur e alcohol) Comments Unknown Sex and Gender Information Value Date Recorded Sex Assigned at Not on file 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 Gender Identity Not on file Sexual Orientation [...] on filedocumented in this encounter Care Teams Reverser Relationship Specialty Start Date End Date Venecia Turner MD [address] [place] [address] DR LEXIE Gramajo [facility] [address] [place] [address] PCP - General 12/11/19 07/21/21 Jarred Roy MD 2 [facility] [address] [place] [address] 01/30/19 Elma Echevarria NP [address] [place] [address] DR LEXIE Gramajo [facility] [address] [place] [address] Nurse Practitioner General Surgery 12/16/19 documented as of this encounter
--- OUTSIDE RECORDS SUMMARY | 2024-05-10 20:52 | XMS_ITS | Encounter Summary ---
Author Organization [facility] Medical [facility] Address [address] [facility] [address] [place] [address] Care Team Providers Care Filler Feeder Name Role Phone Jarred Roy MD Unavailable [phone] Venecia Turner MD Primary Care Provider [phone] EyeElma charles NP Unavailable Reason for Visit * Reason Comments Wound Check Encounter Details Date Type Department Care Team (Late st Contact Info) Description 12/24/2019 9:00 AM CDT Office Visit [facility] 4 [facility] [address] [place] [address] EyeElma charles NP 4 [facility] [address] [place] [address] Abscess (Primary Dx) Social History Tobacco Use Types Packs/Day Years Used Date Smoking Tobacco: Never Smokeless Tobacco: Never Alcohol Use Standard Drinks/Week Comments No 0 (1 standard drink = 0.6 oz pur e alcohol) Comments No Sex and Gender Information Value Date Recorded Sex Assigned at Not on file 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
--- OUTSIDE RECORDS SUMMARY | 2024-05-10 20:52 | XMS_ITS | Encounter Summary ---
Author Organization [facility] Healthcare Address [address] [place] [address] Care Team Providers Care Butter Production Supervisor Name Role Phone Jarred Roy MD Unavailable [phone] Venecia Turner MD Primary Care Provider [phone] Elma Echevarria NP Unavailable Reason for Visit * Reason Comments Other Arm Redness Encounter Details Date Type Department Care Team (Late st Contact Info) Description 03/11/2020 11:34 AM PRINTED CIRCUIT BOARD ASSEMBLY REPAIRER - 03/11/2020 1:52 PM PRINTED CIRCUIT BOARD ASSEMBLY REPAIRER Emergency [facility] Emergency Department [address] [place] [address] Rasheeda Fuentes MD [address] [place] [address] Cellulitis of left upper arm [...] on file Legal Sex Female 11:28 PM PRINTED CIRCUIT BOARD ASSEMBLY REPAIRER Gender Identity Not on file Sexual Orientation Not on file documented as of this encounter Last Filed Vital Signs Vital Sign Reading Time Taken Comments Blood Pressure - - Pulse 97 03/11/2020 9:45 AM PRINTED CIRCUIT BOARD ASSEMBLY REPAIRER Temperature 36.7 ??C (98 ??F) 03/11/2020 9:45 AM PRINTED CIRCUIT BOARD ASSEMBLY REPAIRER Respiratory Rate 18 03/11/2020 9:45 AM PRINTED CIRCUIT BOARD ASSEMBLY REPAIRER Oxygen Saturation 100% 03/11/2020 9:45 AM PRINTED CIRCUIT BOARD ASSEMBLY REPAIRER Inhaled Oxygen Concentration - - Weight 104.3 kg (230 lb) 03/11/2020 9:45 AM PRINTED CIRCUIT BOARD ASSEMBLY REPAIRER Height 165.1 cm (5' 5 ) 03/11/2020 9:45 AM PRINTED CIRCUIT BOARD ASSEMBLY REPAIRER Body Mass Index 38.27 03/11/2020 9:45 AM PRINTED CIRCUIT BOARD ASSEMBLY REPAIRER documented in this encounter Discharge Diagnoses Diagnosis Cellulitis of left upper limb - CELLULITIS OF LEFT UPPER LIMB Pain in left upper arm - PAIN IN LEFT UPPER ARM documented in this encounter Discharge Instructions * Discharge Instructions* Poornima Saha NP - 03/11/2020 1:26 PM PRINTED CIRCUIT BOARD ASSEMBLY REPAIRER Use over the counter Motrin per manufacturers guidelines for relief of pain and fever. Follow up with Dr. Turner and Dr. Clark without fail. Do not drive while taking Gillette as it may cause drowsiness and sedation. Return to ER for pain not relieved by Gillette, increase in redness, fever, worsen condition or other concerns. TED CIRCUIT BOARD ASSEMBLY REPAIRER * Attachments The following attachments cannot be sent through Care Everywhere. * Arm Pain (AfterCare(R) Instructions(ER/ED)) (Saudi Arabian) * Cellulitis (AfterCare(R) Instructions(ER/ED)) ([place]) documented in this encounter Medications at Time [...] or self care seen and treated by EXTRUSION OPERATOR documented in this encounter ED Notes * [...] tenderness or frontal sinus tenderness. Mouth/Throat: Lips: [place]. Mouth: Mucous membranes are moist. Pharynx: Oropharynx [...] easily aroused. Psychiatric: Behavior: Behavior is cooperative. [facility] ED Course as of Mar 11 [...] upper arm Left upper arm pain Poornima Saha NP 03/11/201943 Cosigned by Sommer Leblanc MD at 03/19/2020 2:33 PM PRINTED CIRCUIT BOARD ASSEMBLY REPAIRER TED CIRCUIT BOARD ASSEMBLY REPAIRER TED CIRCUIT BOARD ASSEMBLY REPAIRER Associated attestation - Sommer Leblanc MD - 03/19/2020 2:33 PM PRINTED CIRCUIT BOARD ASSEMBLY REPAIRER ED Attestation Based on the medical record the care appears appropriate. * Alyson Hightower RN - 03/11/2020 9:43 AM CST Pt presents to ER with c/o swelling to left upper arm. Redness and swelling noted under upper arm. Pt reports fever. TED CIRCUIT BOARD ASSEMBLY REPAIRER documented in this encounter Plan of Treatment Not on file documented as of this encounter Procedures Procedure Name Priority Date/Time Associated Diagnosis Comments XR HUMERUS LEFT 2 OR MORE VIEWS ED 03/11/2020 12:24 PM PRINTED CIRCUIT BOARD ASSEMBLY REPAIRER BLOOD CULTURE STAT 03/11/2020 12:03 PM PRINTED CIRCUIT BOARD ASSEMBLY REPAIRER SEPSIS LACTATE WITH REFLEX STAT 03/11/2020 11:59 AM PRINTED CIRCUIT BOARD ASSEMBLY REPAIRER EGFR STAT 03/11/2020 11:59 AM PRINTED CIRCUIT BOARD ASSEMBLY REPAIRER DIFFERENTIAL AUTO STAT 03/11/2020 11: 59 AM PRINTED CIRCUIT BOARD ASSEMBLY REPAIRER CBC WITH AUTO DIFFERENTIAL STAT 03/11/2020 11:59 AM PRINTED CIRCUIT BOARD ASSEMBLY REPAIRER BLOOD CULTURE STAT 03/11/2020 11:59 AM PRINTED CIRCUIT BOARD ASSEMBLY REPAIRER COMPREHENSIVE METABOLIC PANEL STAT 03/11/2020 11:59 AM PRINTED CIRCUIT BOARD ASSEMBLY REPAIRER POCT HCG, URINE Routine 03/11/2020 9:54 AM PRINTED CIRCUIT BOARD ASSEMBLY REPAIRER documented in this encounter Results * XR Humerus Left 2 or More Views (03/11/2020 12:24 PM PRINTED CIRCUIT BOARD ASSEMBLY REPAIRER) Anatomical Region Laterality Modality Upper Extremities, Upper Arm Left Com puted Radiography 03/11/2020 1:00 PM PRINTED CIRCUIT BOARD ASSEMBLY REPAIRER Impressions 03/11/2020 1:01 PM PRINTED CIRCUIT BOARD ASSEMBLY REPAIRER Soft tissue edema. ??No acute osseous abnormality. Electronically signed by: Jude Patel M.D. Narrative 03/11/2020 1:01 PM PRINTED CIRCUIT BOARD ASSEMBLY REPAIRER EXAMINATION: XR HUMERUS LEFT 2 OR MORE [...] by: Jude Patel M.D. us Poornima Saha EXTRUSION OPERATOR IMG XR PROCEDURES Final Res ult * Blood culture Blood Peripheral (03/11/2020 12:03 PM PRINTED CIRCUIT BOARD ASSEMBLY REPAIRER) Report Final Report: No growth [facility] ([place]) Comment:Testing performed by : [facility], [address] [facility], [place]., [address] Blood specimen (specimen) (Peripheral) 03/11/2020 12:03 PM PRINTED CIRCUIT BOARD ASSEMBLY REPAIRER 03/11/2020 2:27 PM PRINTED CIRCUIT BOARD ASSEMBLY REPAIRER Narrative [facility] ([place]) - 03/15/2020 4:00 PM PRINTED CIRCUIT BOARD ASSEMBLY REPAIRER From a different site than #1. Draw [...] organism identification may be performed using the Petenkoigene Gram-Positive Blood Culture Assay. This assay detects microbial DNA in positive blood culture broth via hybridization of target DNA to capture oligonucleotides on a microarray. This assay has been cleared by the [place] Food and Drug Administration and its performance characteristics have been verified by the [facility] Microbiology Laboratory. 5. ?For questions about this culture, contact the Microbiology Laboratory at [phone]. Interpretive data was last revised on 2019. Poornima Saha NP LAB MICROBIOLOGY - GENERAL ORDERABLES Final Result [facility] ([place]) 1 [facility] Department [place] [address] * eGFR (03/11/2020 11:59 AM PRINTED CIRCUIT BOARD ASSEMBLY REPAIRER) eGFR 140 mL/min/1.7 3 m2 [facility] ([place]) Comment: Interpretive Data Reference Interval Normal ?>/= 90 mL/min/1.73m2 Mildly decreased* ? 60 - 89 mL/min/1.73m2 Mildly to moderately decreased ?45 - 59 mL/min/1.73m2 Moderately to severely decreased ??30 - 44 mL/min/1.73m2 Severely decreased ?15 - 29 mL/min/1.73m2 Kidney Failure ?< 15 ??mL/min/1.73m2 *Relative to young adult level If -Trinidadian multiply value by 1.16. Estimated glomerular filtration [...] 2015. Blood specimen (specimen) 03/11/2020 11:59 AM PRINTED CIRCUIT BOARD ASSEMBLY REPAIRER 03/11/2020 12:07 PM PRINTED CIRCUIT BOARD ASSEMBLY REPAIRER Poornima Saha NP LAB BLOOD ORDERABLES Final Result [facility] ([place]) 1 [facility] Department [place] [address] * Differential, auto (03/11/2020 11:59 AM PRINTED CIRCUIT BOARD ASSEMBLY REPAIRER) Neutrophil abs 6.0 1.7 - 6.5 K/cumm [...] 2017. Blood specimen (specimen) 03/11/2020 11:59 AM PRINTED CIRCUIT BOARD ASSEMBLY REPAIRER 03/11/2020 12:07 PM PRINTED CIRCUIT BOARD ASSEMBLY REPAIRER us Poornima Saha NP LAB BLOOD ORDERABLES Final Result [facility] ([place]) 1 [facility] Department [place] [address] * (ABNORMAL) Sepsis Lactate w/ Reflex (03/11/2020 11:59 AM PRINTED CIRCUIT BOARD ASSEMBLY REPAIRER) Sepsis Lactate 0.6(L) 0.7 - 2.0 mmol/L [facility] ([place]) Blood specimen (specimen) 03/11/2020 11:59 AM PRINTED CIRCUIT BOARD ASSEMBLY REPAIRER 03/11/2020 12:07 PM PRINTED CIRCUIT BOARD ASSEMBLY REPAIRER Poornima Saha NP LAB BLOOD ORDERABLES Final Result [facility] ([place]) 1 [facility] Department [place] [address] * Blood culture Blood Peripheral (03/11/2020 11:59 AM PRINTED CIRCUIT BOARD ASSEMBLY REPAIRER) Report Final Report: No growth [facility] ([place]) Comment:Testing performed by : [facility], [address] [place] [address] Blood specimen (specimen) (Peripheral) 03/11/2020 11:59 AM PRINTED CIRCUIT BOARD ASSEMBLY REPAIRER 03/11/2020 2:26 PM PRINTED CIRCUIT BOARD ASSEMBLY REPAIRER Narrative [facility] ([place]) - 03/15/2020 4:00 PM PRINTED CIRCUIT BOARD ASSEMBLY REPAIRER Received only aerobic blood culture bottle Draw [...] organism identification may be performed using the Petenkoigene Gram-Positive Blood Culture Assay. This assay detects microbial DNA in positive blood culture broth via hybridization of target DNA to capture oligonucleotides on a microarray. This assay has been cleared by the [place] Food and Drug Administration and its performance characteristics have been verified by the [facility] Microbiology Laboratory. 5. ?For questions about this culture, contact the Microbiology Laboratory at [phone]. Interpretive data was last revised on 2019. us Poornima Saha NP LAB MICROBIOLOGY - GENERAL ORDERABLES Final Result [facility] ([place]) 1 [facility] Department [place] [address] * (ABNORMAL) Comprehensive metabolic panel (03/11/2020 11:59 AM PRINTED CIRCUIT BOARD ASSEMBLY REPAIRER) Sodium 133(L) 135 - 145 mmol/L [facility] [...] ([place]) Blood specimen (specimen) 03/11/2020 11:59 AM PRINTED CIRCUIT BOARD ASSEMBLY REPAIRER 03/11/2020 12:07 PM PRINTED CIRCUIT BOARD ASSEMBLY REPAIRER us Poornima Saha EXTRUSION OPERATOR LAB BLOOD ORDERABLES Final Result [facility] ([place]) 1 [facility] Department [place] [address] * CBC with auto differential (03/11/2020 11:59 AM PRINTED CIRCUIT BOARD ASSEMBLY REPAIRER) WBC 8.0 3.8 - 9.9 K/cumm [facility] [...] ([place]) Blood specimen (specimen) 03/11/2020 11:59 AM PRINTED CIRCUIT BOARD ASSEMBLY REPAIRER 03/11/2020 12:07 PM PRINTED CIRCUIT BOARD ASSEMBLY REPAIRER us Poornima Saha EXTRUSION OPERATOR LAB BLOOD ORDERABLES Final Result [facility] ([place]) 1 [facility] Department [place] [address] * POCT hCG, urine (03/11/2020 9:54 AM PRINTED CIRCUIT BOARD ASSEMBLY REPAIRER) HCG, ur, POC Negative Lot Number [id number] QC Backgroud Clear Acceptable QC Control Line Acceptable Urine 03/11/2020 9:54 AM PRINTED CIRCUIT BOARD ASSEMBLY REPAIRER Sommer Leblanc MD POINT OF CARE TEST [...] For 1 dose Given 03/11/2020 12:02 PM PRINTED CIRCUIT BOARD ASSEMBLY REPAIRER 650 mg documented in this encounter Active and Recently Administered Medications Times are shown in PRINTED CIRCUIT BOARD ASSEMBLY REPAIRER. Scheduled Medication Order 03/09/2020 03/10/2020 03/11/2020 acetaminophen (TYLENOL) tablet 650 mg (COMPLETED) 650 mg, oral, Once, On Mon03/11/20 at 1142, For 1 dose 1202 (Given - Provid er: Nelly Amaya RN) documented in this encounter Care Teams Butter Production Supervisor Relationship Specialty Start Date End Date Venecia Turner MD [address] [place] [address] DR LEXIE Gramajo [facility] [address] [place] [address] PCP - General 12/11/19 07/21/21 Jarred Roy MD 2 [facility] [address] [place] [address] 01/30/19 Elma Echevarria NP [address] [place] [address] DR LEXIE Gramajo [facility] [address] [place] [address] Nurse Practitioner General Surgery 12/16/19 documented as of this encounter
--- OUTSIDE RECORDS SUMMARY | 2024-05-10 20:52 | XMS_ITS | Encounter Summary ---
Author Organization [facility] Healthcare Address [address] [place] [address] Care Team Providers Care Crocheter Name Role Phone Jarred Roy MD Unavailable [phone] Venecia Turner MD Primary Care Provider [phone] Elma Echevarria NP Unavailable Encounter Details Date Type Department Care Team (Late st Contact Info) Description 01/19/2021 Telephone Obstetrics and Gynecology Clinic [address] [facility] 3rd Floor [address] [place] [address] Faina Morales RN Social History Tobacco Use Types Packs/Day Years Used Date Smoking Tobacco: Never Smokeless Tobacco: Never Alcohol Use Standard Drinks/Week Comments No 0 (1 standard drink = 0.6 oz pur e alcohol) Comments Unknown Sex and Gender Information Value Date Recorded Sex Assigned at Not on file Legal Sex Female 11:28 PM OVERCOIL STEPPER Gender Identity Not on file Sexual Orientation Not on file documented as of this encounter Miscellaneous Notes * Telephone Encounter - Faina Morales RN - 01/19/2021 2:27 PM CDT Call placed to pt, discussed medical history, pt states sister has spina bifida. lmp 10/19/20, pt states she believes she had lab work performed at OB appt. Call placed to [facility] to inquire labs drawn, awaiting call back. documented in this encounter Plan of Treatment Not on file documented as of this encounter Visit Diagnoses Not on filedocumented in this encounter Care Teams Crocheter Relationship Specialty Start Date End Date Venecia Turner MD [address] [facility] [address] LEXIE Gramajo [facility] [address] [place] [address] PCP - General 12/11/19 07/21/21 Jarred Roy MD 2 [facility] [address] [place] [address] 01/30/19 Elma Echevarria NP [address] [facility] [address] LEXIE Gramajo [facility] [address] [place] [address] Nurse Practitioner General Surgery 12/16/19 documented as of this encounter
--- OUTSIDE RECORDS SUMMARY | 2024-05-10 20:52 | XMS_ITS | Encounter Summary ---
Author Organization [facility] Healthcare Address [address] [place] [address] Care Team Providers Care Straightedge Man Name Role Phone Jarred Roy MD Unavailable [phone] EyersElma NP Unavailable No, Physician Primary Care Provider [phone] Reason for Visit * Reason Comments Leg Swelling Encounter Details Date Type Department Care Team (Late st Contact Info) Description 07/22/2021 10:49 PM CDT - 07/23/2021 12:05 AM CDT Emergency [facility] Emergency Department [address] [place] [address] Farzad Baca MD [address] [address] Leg edema, right (Primary Dx) Discharge Disposition: [...] week 07/21/2021 How often do you attend [facility] or hoahaoism services? Never 07/21/2021 Do you belong to any clubs o r organizations such as faith groups, unions, fraternal or athletic groups, or [...] health care facility (including now)? 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 Migraine 11/19/2018 ??? Astigmatism 09/18/2018 ??? Qlrp-iw-[id number] spots 09/18/2018 ??? Vitamin D deficiency 09/18/2018 [...] Ref Range D-Dimer 1,123 (H) <=499 ng/mL [facility] Comprehensive metabolic panel Result Value Ref [...] Value Ref Range eGFR 133 mL/min/1.73 m2 [facility] ED Course as of 07/23/21 0000 Time: [...] BLOOD ORDERABLE S Final Result [facility] ([place]) 1 [facility] Department of Laboratories [place], [place] [id number] * Differential, auto (07/22/2021 9:24 PM CDT) [...] S Final Result [facility] ([place]) 1 [facility] Department [place] [address] * (ABNORMAL) CBC with auto differential (07/22/2021 [...] S Final Result [facility] ([place]) 1 [facility] Department [place] [address] * (ABNORMAL) Comprehensive metabolic panel (07/22/2021 9:24 PM CDT) Pathologist [facility] Sodium 135 135 - 145 mmol/L [facility]ER [...] S Final Result [facility] ([place]) 1 [facility] Department [place] [address] * (ABNORMAL) D-dimer, quantitative (07/22/2021 9:24 PM [...] BLOOD ORDERABLE S Final Result [facility] ([place]) 1 [facility] Department [place] [address] documented in this encounter Visit Diagnoses Diagnosis Leg edema, right- Primary documented in this encounter Orders Nursing Count Last Ordered Date First Orde red Date ED NURSING ORDER 1 07/22/2021 documented in this encounter Care Teams Straightedge Man Relationship Specialty Start Date End Date No, Physician PCP - General 07/22/21 08/15/21 Jarred Roy MD [address] [address] 01/30/19 Elma Echevarria NP [address] [address] Nurse Practitioner General Surgery 12/16/19 documented as of this encounter
--- OUTSIDE RECORDS SUMMARY | 2024-05-10 20:52 | XMS_ITS | Encounter Summary ---
Author Organization [facility] Healthcare Address [address] [place] [address] Care Team Providers Care Inspector Assembly Name Role Phone Jarred Roy MD Unavailable [phone] Elma Echevarria NP Unavailable Venecia Turner MD Primary Care Provider [phone] Encounter Details Date Type Department Care Team (Late st Contact Info) Description 08/27/2021 Telephone Obstetrics and Gynecology Clinic [address] [facility] 3rd Floor [address] [place] [address] Lilian Evans Social History Tobacco [...] any clubs o r organizations such as shinto groups, unions, fraternal or athletic groups, or [...] health care facility (including now)? No 07/21/2021 Schriever Depression Scale Answer Date Recorded Schriever Depression Scale Total 7 08/26/2021 The thought of harming myself has occurred to me . 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
--- OUTSIDE RECORDS SUMMARY | 2024-05-10 20:52 | XMS_ITS | Encounter Summary ---
Author Organization [facility] Healthcare Address [address] [place] [address] Care Team Providers Care Forklift Operator Name Role Phone Jarred Roy MD Unavailable [phone] EyeElma charles NP Unavailable Venecia Turner MD Primary Care Provider [phone] Reason for Visit * Reason Comments Wound Check Groin Swelling Encounter Details Date Type Department Care Team (Late st Contact Info) Description 08/25/2021 8:20 PM CDT - 08/25/2021 11:19 PM CDT Emergency [facility] Emergency Department [address] [place] [address] Penny Fenton MD [address] [place] [address] Bartholin's gland cyst (Primary Dx) Discharge Disposition: [...] any clubs o r organizations such as taoist groups, unions, fraternal or athletic groups, or [...] in a residential (including now)? No 07/21/2021 [place] Depression Scale Answer Date Recorded [place] Depression Scale Total 7 08/26/2021 The thought of harming myself has occurred to me . 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 * Bartholin Cyst (General Information) (Mongolian) * Sitz Bath (Discharge Care) (Mongolian) documented in this encounter Medications at Time [...] She made an appointment for tomorrow with kettle room helper but came to the emergency department because [...] Reviewed Physical Exam: ED Triage Vitals [08/25/21 8049] Temp Pulse Resp BP SpO2 36.4 ??C [...] with patient's permission, and female nurse tech review engineer in the room) exam:Painful red fluctuant area [...] Of note: Mons pubis abscess I&D 12/16/2019 [facility] ED COURSE: ED Course as of 08/26/21 0025 Time: 08/26 2311 Comment: I spoke to Dr. Smith, on-call Ob Gyne at [facility] where patient delivered, I discussed the patient's [...] procedure was indicated in the office, and [facility] access line thought thatit look like she did have an appropriate appointment tomorrow with Dr. Stein, the marking room supervisor she was able to get in the [...] RN) documented in this encounter Care Teams Forklift Operator Relationship Specialty Start Date End Date Venecia Turner MD [address] [facility] [address] OWEN [address] [address] PCP - General 08/16/21 02/08/22 Jarred Roy MD 2 [facility] [address] [place] [address] 01/30/19 EyeElma charles NP [address] [facility] [address] [address] Nurse Practitioner General Surgery 12/16/19 documented as of this encounter
--- OUTSIDE RECORDS SUMMARY | 2024-05-10 20:52 | XMS_ITS | Encounter Summary ---
Author Organization [facility] Healthcare Address [address] [place] [address] Care Team Providers Care Portfolio Specialist Name Role Phone Jarred Roy MD Unavailable [phone] Venecia Turner MD Primary Care Provider [phone] Elma Echevarria NP Unavailable Reason for Visit * Reason Comments Routine Visit Encounter Details Date Type Department Care Team (Late st Contact Info) Description 06/02/2021 2:30 PM STAMP CLERK Office Visit Obstetrics and Gynecology Clinic [address] [facility] 3rd Floor [address] [place] [address] Harika Abrams MD [address] [facility] [phone] [place] [address] Se Veliz MD [address] [address] Supervision of other normal , antepartum (Primary [...] on file Legal Sex Female 11:28 PM STAMP CLERK Gender Identity Not on file Sexual Orientation Not on file documented as of this encounter Last Filed Vital Signs Vital Sign Reading Time Taken Comments Blood Pressure 123/61 06/02/2021 2:52 PM STAMP CLERK Pulse 86 06/02/2021 2:52 PM STAMP CLERK Temperature 36.6 ??C (97.9 ??F) 06/02/2021 2:52 PM CS T Respiratory Rate - - Oxygen Saturation 98% 06/02/2021 2:52 PM STAMP CLERK Inhaled Oxygen Concentration - - Weight 130.8 kg (288 lb 6.4 oz) 06/02/2021 2:52 PM STAMP CLERK Height - - Body Mass Index 47.99 05/17/2021 1:45 PM STAMP CLERK documented in this encounter Patient Instructions * Patient Instructions* Se Veliz MD - 06/02/2021 2:30 PM STAMP CLERK Contact us Office hours: Monday-Monday 8:30 AM-4:30 PM Phone number: [phone] Daytime: Call us if you have questions [...] medical problem, you can call us at [phone]. Please wait until the clinic is open for non-urgent needs as this emergency line cannot help with appointments, paperwork or prescriptions. If you have an emergency and cannot wait, please call 911 or go to the [facility] Emergency room. If you are having a problem with your or are in labor [facility] (check in near elevator on first floor) 1 [facility], 5th [place] [address]. P CLERK documented in this encounter Discharge Disposition Disposition [...] [x] Method of feeding: Plans breast [] Belting Inspector: [] Car seat: [] PP Depression Counseling [x] Attg visits (08/09) Relevant Orders POCT urinalysis dipstick (Completed) N. gonorrhoeae/C. trachomatis Amplification Urine Trichomonas vaginalis PCR Urine RTC 2 weeks Patient seen and discussed with Dr. Butterfield. Se Veliz MD PGY-4 (TITLE ASSISTANT) [phone] Cosigned by Ileana Butterfield MD at 06/09/2021 8:13 PM STAMP CLERK P CLERK P CLERK Associated attestation - Ileana Butterfield MD - 06/09/2021 8:13 PM STAMP CLERK I have seen and examined the patient. I agree with the findings and plan of care as documented in the resident/fellow's note. Ileana Butterfield MD documented in this encounter Plan of Treatment Not on file documented as of this encounter Procedures Procedure Name Priority Date/Time Associated Diagnosis Comments N. GONORRHOEAE/C. TRACHOMATIS AMPLIFICATION Routine 06/02/2021 3:47 PM STAMP CLERK Supervision of other normal , antepartum TRICHOMONAS VAGINALIS PCR Routine 06/02/2021 3:47 PM STAMP CLERK Supervision of other normal , antepartum POCT URINALYSIS DIPSTICK Routine 06/02/2021 2:56 PM STAMP CLERK Supervision of other normal , antepartum documented in this encounter Results * Trichomonas vaginalis PCR Urine (06/02/2021 3:47 PM STAMP CLERK) Trichomonas DNA Not Detected Not Detected SAY [facility]OND Comment: Interpretive Data Testing performed by [facility] using Nucleic Acid Amplification with the [employer] Xpert TV Assay. ??This assay detects DNA from Trichomonas vaginalis using Real-Time PCR. ??This test is cleared by the [facility] Food and Drug Administration for endocervical swabs, vaginal swabs, female urine (first-catch), and male urine (first-catch). ??The performance characteristics for these specimen types have been verified by the [facility]. ??Excess blood in specimens may be inhibitory and result in false negative results. ??The performance of this test has not been evaluated in women or individuals less than 18 years of age. Current Interpretive Data was last revised on 2019. Urine 06/02/2021 3:47 PM STAMP CLERK 06/02/2021 5:12 PM STAMP CLERK Se Veliz MD LAB MICROBIOLOGY - [facility] AL ORDERABLES Final Result [facility] One [facility] Department [place] [address] * N. gonorrhoeae/C. trachomatis Amplification Urine (06/02/2021 3:47 PM STAMP CLERK) C. trachomatis Not Detected Not Detected [facility]AY [facility] N. gonorrhoeae Not Detected Not Detected SAY [facility] Comment: Interpretive Data Testing performed by the [facility]. This assay detects Chlamydia trachomatis and Neisseria gonorrhoeae by nucleic acid amplification testing (NAAT). This test is approved by the [facility] Food and Drug Administration and the performance characteristics have been verified by the laboratory. The performance characteristics of this test have not been evaluated in individuals less than 14 years of age. Current Interpretive Data was last revised on 2018. Urine (None) 06/02/2021 3:47 PM STAMP CLERK 06/02/2021 5:12 PM STAMP CLERK us Se Veliz MD LAB MICROBIOLOGY - GENER AL ORDERABLES Final Result Performing Organization Address City/State/ZIP Co ut Phone Number [facility] One [facility] Department [place] [address] * POCT urinalysis dipstick (06/02/2021 2:56 PM STAMP CLERK) Glucose, ur, POC Negative Negative mg/dL Ketones, ur, POC Negative Negative Blood, ur, POC Negative Negative Protein, ur, POC Negative Negative Nitrite, ur, POC Negative Negative Leukocytes, ur, POC Negative Negative Lot Number [id number] Urine 06/02/2021 2:56 PM STAMP CLERK us Se Veliz MD POINT OF CARE TEST ORDER CHILO Final Result documented in this encounter Visit Diagnoses Diagnosis Supervision of other normal , antepartum- Primary Maternal obesity affecting , antepartum Rh negative state in antepartum period Elevated blood pressure affecting , antepartum documented in this encounter Care Teams Portfolio Specialist Relationship Specialty Start Date End Date Venecia Turner MD [address] [place] [address] DR LEXIE Gramajo [facility] [address] [place] [address] PCP - General 12/11/19 07/21/21 Jarred Roy MD [address] [facility] [address] [place] [address] 01/30/19 Elma Echevarria NP 4 [facility] DR LEXIE Gramajo [facility] [address] [place] [address] Nurse Practitioner General Surgery 12/16/19 documented as of this encounter
--- OUTSIDE RECORDS SUMMARY | 2024-05-10 20:52 | XMS_ITS | Encounter Summary ---
Author Organization [facility] Healthcare Address [address] [place] [address] Care Team Providers Care Director Of Plant Operations Name Role Phone Jarred Roy MD Unavailable [phone] Venecia Turner MD Primary Care Provider [phone] Elma Echevarria NP Unavailable Reason for Referral * Diagnostic Imaging (Routine) - Closed Specialty Diagnoses / Procedures Referred By Loyd medrano Referred To Contact Diagnoses Encounter for supervision of normal Procedures US Ob Under 14 Weeks Janett Robles NP [address] [facility] [address] LEXIE Gramajo [address] [address] Phone: tel: fax: [address] [address] Referral ID Status Reason Start Date Expiration Date Visits Re quested Visits Authorized [id number] Closed 11/24/2020 12/24/2021 1 1 Reason for Visit * Diagnostic Imaging (Routine) - Closed Specialty Diagnoses / Procedures Referred By Loyd medrano Referred To Contact Diagnoses Encounter for supervision of normal Procedures US Ob Under 14 Weeks Janett Robles NP [address] [facility] [address] LEXIE Gramajo [address] [address] Phone: tel: fax: [address] [address] Referral ID Status Reason Start Date Expiration Date Visits Re quested Visits Authorized [id number] Closed 11/24/2020 12/24/2021 1 1 Encounter Details Date Type Department Care Team (Latest Contact Info) Description 12/24/2020 10:00 AM CDT - 12/24/2020 11:59 PM CDT Hospital Encounter [facility] [address] [place] [address] Neo Chakraborty MD [address] [facility] [address] LEXIE Gramajo [address] [address] Janett Robles NP [address] [facility] [address] LEXIE Gramajo [address] [address] Encounter for supervision of normal Discharge Disposition: [...] on file Legal Sex Female 11:28 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 None applicable cm [place]-rump length: ?? 2.36 cm heart rate: ?? [...] PM T: ??12/24/2020 12:22 PM Report ID: [id number] Reading Location: ??[id number] Procedure Note Black Sheppard MD - 12/24/2020 [...] identified Mean sac diameter: None applicable cm [place] Fields-rump length: 2.36 cm heart rate: 178 bpm [...] Black Sheppard M.D. JA: KVNG Report ID: [id number] Reading Location: [id number] us Janett Robles CHICKEN BUYER IMG OB US PROCEDURES Final R esult documented in this encounter Visit Diagnoses Diagnosis Encounter for supervision of normal documented in this encounter Care Teams Director Of Plant Operations Relationship Specialty Start Date End Date Venecia Turner MD [address] [facility] [address] LEXIE Gramajo [facility] [address] [place] [address] PCP - General 12/11/19 07/21/21 Jarred Roy MD [address] [facility] [address] [place] [address] 01/30/19 Elma Echevarria NP [address] [place] [address] DR LEXIE Gramajo [facility] [address] [place] [address] Nurse Practitioner General Surgery 12/16/19 documented as of this encounter
--- OUTSIDE RECORDS SUMMARY | 2024-05-10 20:52 | XMS_ITS | Encounter Summary ---
Author Organization [facility] Medical [facility] Address [address] [facility] [address] [place] [address] Care Team Providers Care Service Shop Foreman Name Role Phone Jarred Roy MD Unavailable [phone] Elma Echevarria NP Unavailable BucksLaura Trotter NP Primary Care Provider [phone] Encounter Details Date Type Department Care Team (Late st Contact Info) Description 02/09/2022 2:00 PM CDT Office Visit [facility] [address] [facility] [address] [place] [address] Mook Adrian MD [address] [place] [address] [address] [place] [address] Chronic migraine without aura without [...] health care facility (including now)? No 07/21/2021 Dux[place] Depression Scale Answer Date Recorded [place] Depression Scale Total 6 09/03/2021 The thought of harming myself has occurred to me . 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 Gender Identity Not on file Sexual Orientation [...] (Pain) 08/25/2021 02/09/2022 ibuprofen (ADVIL,MOTRIN) 600 mg tabletIndications:Racing Secretary And Handicapper mps Take 1 tablet (600 mg total) [...] documented as of this encounter Care Teams Service Shop Foreman Relationship Specialty Start Date End Date Laura Madrid NP [address] [place] [address] DR JANG [address] [place] [address] PCP - General Nurse Practitioner 02/09/22 12/02/23 Jarred Roy MD [address] [facility] [place] [address] 01/30/19 Elma Echevarria NP [address] [facility] [address] [address] Nurse Practitioner General Surgery 12/16/19 documented as of this encounter
--- OUTSIDE RECORDS SUMMARY | 2024-05-10 20:52 | XMS_ITS | Encounter Summary ---
Author Organization [facility] Healthcare Address [address] [place] [address] Care Team Providers Care Psychological Operations Specialist Name Role Phone Jarred Roy MD Unavailable [phone] Venecia Turner MD Primary Care Provider [phone] Elma Echevarria NP Unavailable Encounter Details Date Type Department Care Team (Latest Contact Info) Description 06/22/2021 12:14 PM TELEVISION INSPECTOR - 06/22/2021 2:14 PM TELEVISION INSPECTOR Hospital Encounter [address] [address] Noemi Collins MD [address] [facility] [id number] [place] [address] Discharge Disposition: Discharge to home or self [...] on file Legal Sex Female 11:28 PM TELEVISION INSPECTOR Gender Identity Not on file Sexual Orientation Not on file documented as of this encounter Last Filed Vital Signs Vital Sign Reading Time Taken Comments Blood Pressure 117/70 06/22/2021 12:59 PM TELEVISION INSPECTOR Pulse 82 06/22/2021 2:00 PM TELEVISION INSPECTOR Temperature 36.8 ??C (98.2 ??F) 06/22/2021 1 2:59 PM TELEVISION INSPECTOR Respiratory Rate 18 06/22/2021 12:5 9 PM TELEVISION INSPECTOR Oxygen Saturation 97% 06/22/2021 2:00 PM TELEVISION INSPECTOR Inhaled Oxygen Concentration - - Weight 132.3 kg (291 lb 11.2 oz) 2021 12:59 PM TELEVISION INSPECTOR Height 165.1 cm (5' 5 ) 06/22/2021 12:5 9 PM TELEVISION INSPECTOR Body Mass Index 48.54 06/22/2021 12:59 PM TELEVISION INSPECTOR documented in this encounter Discharge Diagnoses Diagnosis [...] gestation of - 35 WEEKS GESTATION OF jail (current) use of non-steroidal anti-inflammatories (nsaid) - COMPLEX HUMAN RESOURCES MANAGER (CURRENT) USE OF NON-STEROIDAL ANTI-INFLAMMATORIES (NSAID) Other usp (current) drug therapy - OTHER COMPLEX HUMAN RESOURCES MANAGER (CURRENT) DRUG THERAPY documented in this encounter Discharge Instructions * Discharge Instructions* Jeanine Santillan RN - 06/22/2021 2:05 PM TELEVISION INSPECTOR at 35 to 38 Weeks WHAT YOU [...] heart rate will be checked. ?? 2017 [employer] Information is for End User's use only and may not be sold, redistributed or otherwise used for commercial purposes. All illustrations and images included in CareNotes?? are the copyrighted property of [email or web address], [employer]. or [employer]. The above information is an audio visual aids director only. It is not intended as medical advice for individual conditions or treatments. Talk to your doctor, nurse or pharmacist before following any medical regimen to see if it is safe and effective for you. 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 Patient is . [...] Large Ketones, ur, POC Negative Negative Specific Flushing, POC 1.005 1.005 - 1.030 Blood, ur, [...] ABORH O Negative 05/17/2021 IDCOOMB Negative 05/17/2021 [id number] Nonreactive 05/17/2021 LABRPR Nonreactive 05/17/2021 GBS unknown [...] and agree with the documentation by the resident/SHEET ROCK TAPER. I did not see the patient. Noemi Collins MD VISION INSPECTOR VISION INSPECTOR documented in this encounter Procedure Notes * Noemi Collins MD - 06/22/2021 2:14 PM CST Procedures FHR Baseline: 140 Variability: moderate Accelerations: present Decelerations: absent Contractions: absent Reactive: Yes I have reviewed the NST. Noemi Collins MD VISION INSPECTOR * Becky Harrison NP - 06/22/2021 2:05 PM CST Procedures Mary Licona is a 21 y.o. female at 35w1d weeks gestation with Estimated Date of Delivery: 07/26/21. She presented with abdominal pain Time on the monitor: [id number] FHR Baseline: 140 Variability: moderate Accelerations: present Decelerations: absent Contractions: absent Reactive: Yes and reassuring tracing I have reviewed the NST: reactive and reassuring tracing. I have instructed the RN to take the patient off the monitor. NICOLE Castro 06/22/21 Cosigned by Noemi Collins MD at 06/22/2021 3:15 PM TELEVISION INSPECTOR VISION INSPECTOR VISION INSPECTOR documented in this encounter Nursing Notes * Jeanine Santillan RN - 06/22/2021 2:09 PM CST Patient presented to [facility] from home complaining of mid [...] this time. Pt scheduled for appttomorrow with [facility]. Discharged home in stable condition with reference and WAC precautions. Pt instructed to keep all follow up appointments as scheduled. Pt verbalizes understanding and denies further needs at this time. 06/22/2021 Jeanine Doyle RN VISION INSPECTOR documented in this encounter Plan of Treatment Not on file documented as of this encounter Procedures Procedure Name Priority Date/Time Associated Diagnosis Comments POCT URINALYSIS DIPSTICK Routine 06/22/2021 1:15 PM TELEVISION INSPECTOR documented in this encounter Results * POCT urinalysis dipstick (06/22/2021 1:15 PM TELEVISION INSPECTOR) Color, Urine, POC Light Yellow Clarity, ur, POC Clear Clear Glucose, ur, POC Negative Negative mg/dL Bilirubin, ur, POC Negative Negative, Small, Moderate, Large Ketones, ur, POC Negative Negative Specific Flushing, POC 1.005 1.005 - 1.030 Blood, ur, POC Negative Negative pH, ur, POC 8.0 5.0 - 8.0 Protein, ur, POC Negative Negative Urobilinogen, urine, POC 0.2 0.2 - 1.0 mg/dL Nitrite, ur, POC Negative Negative Leukocytes, ur, POC Negative Negative Lot Number [id number] Urine 06/22/2021 1:15 PM TELEVISION INSPECTOR Ashley Joseph SHEET ROCK TAPER POINT OF CARE TEST ORDERABLE S Final Result documented in this encounter Visit Diagnoses Not on filedocumented in this encounter Administered Medications Inactive Administered Medications - up to 3 most recent administrations Medication Order MAR Action Action Date Dose Rate Site acetaminophen (TYLENOL) tablet 1,000 mg 1,000 mg, oral, Once, On Mon06/22/21 at 1345, For 1 dose Given 06/22/2021 1:21 PM TELEVISION INSPECTOR 1,000 mg documented in this encounter Discontinued [...] Recently Administered Medications Times are shown in TELEVISION INSPECTOR. Scheduled Medication Order 06/20/2021 06/21/2021 06/22/2021 acetaminophen (TYLENOL) tablet 1,000 mg (COMPLETED) 1,000 mg, oral, Once, On Mon06/22/21 at 1345, For 1 dose 1321 (Given - Provid er: Jeanine Santillan RN) documented in this encounter Orders Nursing Count Last Ordered Date First Orde red Date VITAL SIGNS 1 06/22/2021 documented in this encounter Care Teams Psychological Operations Specialist Relationship Specialty Start Date End Date Venecia Turner MD 4 [facility] [address] LEXIE Gramajo [facility] [address] [place] [address] PCP - General 12/11/19 07/21/21 Jarred Roy MD 2 [facility] [address] [place] [address] 01/30/19 Elma Echevarria NP 4 [facility] [address] LEXIE Gramajo [facility] [address] [place] [address] Nurse Practitioner General Surgery 12/16/19 documented as of this encounter
--- OUTSIDE RECORDS SUMMARY | 2024-05-10 20:52 | XMS_ITS | Encounter Summary ---
Author Organization [facility] Healthcare Address [address] [place] [address] Care Team Providers Care Floor Framer Name Role Phone Jarred Ryo MD Unavailable [phone] Venecia Turner MD Primary Care Provider [phone] EyeElma charles NP Unavailable Encounter Details Date Type Department Care Team (Late st Contact Info) Description 04/19/2021 3:45 PM DIE BAKER Lab [facility] [address] [place] [address] [place] [address] , unspecified gestational age; Supervision of other normal , antepartum Social History Tobacco Use Types Packs/Day Years Used Date Smoking Tobacco: Never Smokeless Tobacco: Never Alcohol Use Standard Drinks/Week Comments No 0 (1 standard drink = 0.6 oz pur e alcohol) Comments Yes Sex and Gender Information Value Date Recorded Sex Assigned at Not on file Legal Sex Female 11:28 PM DIE BAKER Gender Identity Not on file Sexual Orientation Not on file documented as of this encounter Plan of Treatment Not on file documented as of this encounter Procedures Procedure Name Priority Date/Time Associated Diagnosis Comments GTT 50GM 1HR GESTATIONAL SCREEN Routine 04/19/2021 3:42 PM DIE BAKER , unspecified gestational age Supervision of other normal , antepartum RPR Routine 04/19/2021 3:42 PM DIE BAKER , unspecified gestational age Supervision of other normal , antepartum CBC WITHOUT DIFFERENTIAL Routine 04/19/2021 3:42 PM DIE BAKER , unspecified gestational age Supervision of other normal , antepartum documented in this encounter Results * (ABNORMAL) CBC without differential (04/19/2021 3:42 PM DIE BAKER) [facility] WBC 7.2 3.8 - 9.9 K/cumm [facility] Hgb 11.7(L) 11.9 - 15.5 g/dL [facility] Hct 34.8(L) 35.6 - 45.5 % [facility] Plt 236 150 - 400 K/cumm [facility] MPV 10.0 9.1 - 12.3 fL [facility] RBC 3.72(L) 3.90 - 5.20 M/cumm [facility] MCV 93.5 81.3 - 96.4 fL [facility] MCH 31.5 27.1 - 33.3 pg [facility] MCHC 33.6 32.3 - 35.7 g/dL [facility] RDW CV 13.2 11.1 - 14.9 % [facility] RDW SD 44.7 35.7 - 48.1 fL [facility] NRBC abs 0.00 0.00 - 0.01 K/cumm [facility] Blood 04/19/2021 3:42 PM DIE BAKER 04/19/2021 4:33 PM DIE BAKER us Se Veliz MD LAB BLOOD ORDERABLES Fin al Result [facility] One [facility] Department [place] [address] * Glucose tolerance testing 50 gram gestational screen (04/19/2021 3:42 PM DIE BAKER) Pathologist [facility] GTT 50g gest screen 91 <=140 mg/dL [facility] Comment: Interpretive Data Used for suspected gestational [...] revised on 2020. Blood 04/19/2021 3:42 PM DIE BAKER 04/19/2021 4:33 PM DIE BAKER Se Veliz MD LAB BLOOD ORDERABLES Fin al Result [facility] Department [place] [address] * RPR (04/19/2021 3:42 PM DIE BAKER) RPR Nonreactive Nonreactive [facility] Blood 04/19/2021 3:42 PM DIE BAKER 04/19/2021 4:33 PM DIE BAKER Se Veliz MD LAB MICROBIOLOGY - GENER AL ORDERABLES Final Result Performing Organization Address City/[facility] Co de Phone Number [facility] [place] [place] [address] documented in this encounter Visit Diagnoses Diagnosis , unspecified gestational age Supervision of other normal , antepartum documented in this encounter Care Teams Floor Framer Relationship Specialty Start Date End Date Venecia Turner MD [address] [place] [address] DR LEXIE Gramajo [facility] [address] [place] [address] PCP - General 12/11/19 07/21/21 Jarred Roy MD 2 [facility] [address] [place] [address] 01/30/19 Elma Echevarria NP 4 [facility] [address] LEXIE Gramajo [facility] [address] [place] [address] Nurse Practitioner General Surgery 12/16/19 documented as of this encounter
--- OUTSIDE RECORDS SUMMARY | 2024-05-10 20:52 | XMS_ITS | Encounter Summary ---
Author Organization [facility] Healthcare Address [address] [place] [address] Care Team Providers Care Brush Head Maker Name Role Phone Jarred Roy MD Unavailable [phone] Elma Echevarria NP Unavailable Venecia Turner MD Primary Care Provider [phone] Encounter Details Date Type Department Care Team (Late st Contact Info) Description 08/27/2021 Telephone Obstetrics and Gynecology Clinic [address] [facility] Health 3rd Floor [address] [place] [address] Natty Hernandez Social History Tobacco [...] any clubs o r organizations such as rastafarian groups, unions, fraternal or athletic groups, or [...] in a long-term (including now)? No 07/21/2021 [place] Depression Scale Answer Date Recorded [place] Depression Scale Total 7 08/26/2021 The thought of harming myself has occurred to me . Never 08/26/2021 Comments No Sex and Gender Information Value Date Recorded Sex Assigned at Not on file Legal Sex Female 11:28 PM CLINICAL APPLICATION SPECIALIST Gender Identity Not on file Sexual [...] on filedocumented in this encounter Care Teams Brush Head Maker Relationship Specialty Start Date End Date Venecia Turner MD [address] [place] [address] [facility] [address] [place] [address] PCP - General 08/16/21 02/08/22 Jarred Roy MD [address] [address] 01/30/19 Elma Echevarria NP [address] [address] Nurse Practitioner General Surgery 12/16/19 documented as of this encounter
--- OUTSIDE RECORDS SUMMARY | 2024-05-10 20:52 | XMS_ITS | Encounter Summary ---
Author Organization [facility] Healthcare Address [address] [place] [address] Care Team Providers Care Rewriter Name Role Phone Jarred Roy MD Unavailable [phone] Elma Echevarria NP Unavailable Venecia Turner MD Primary Care Provider [phone] Reason for Visit * Reason Comments Care Encounter Details Date Type Department Care Team (Late st Contact Info) Description 08/26/2021 2:15 PM CDT Office Visit Obstetrics and Gynecology Clinic [address] [facility] Health 3rd Floor [address] [place] [address] Harika Abrams MD [address] [facility] MSC [id number] [place] [address] Yvette Stein MD [address] [place] [address] Perineal laceration, (Primary Dx); Vaginal burning Discharge [...] often do you attend chur ch or sabianist services? Never 07/21/2021 Do you belong to any clubs o r organizations such as yarsanism groups, unions, fraternal or athletic groups, or [...] in a fci (including now)? No 07/21/2021 [place] Depression Scale Answer Date Recorded [place] Depression Scale Total 7 08/26/2021 The thought of harming myself has occurred to me . Never 08/26/2021 Comments No Sex and Gender Information Value Date Recorded Sex Assigned at Not on file Legal Sex Female 11:28 PM ROUND CORNER CUTTER OPERATOR Gender Identity Not on file Sexual [...] the right side. She was seen at [facility] ED last night due to worsening symptoms [...] presents for follow up from presenting to [facility] for vaginal pain and was diagnosed with [...] organs documented in this encounter Care Teams Rewriter Relationship Specialty Start Date End Date Venecia Turner MD [address] [place] [address] [address] [facility] [address] [place] [address] PCP - General 08/16/21 02/08/22 Jarred Roy MD [address] [address] 01/30/19 Elma Echevarria NP [address] [address] Nurse Practitioner General Surgery 12/16/19 documented as of this encounter
--- OUTSIDE RECORDS SUMMARY | 2024-05-10 20:52 | XMS_ITS | Encounter Summary ---
Author Organization [facility] Address [address] [place] [address] Phone Care Team Providers Care Lead Technical Architect Name Role Phone Jarred Roy MD Unavailable [phone] Venecia Turnre MD Primary Care Provider [phone] Elma Echevarria NP Unavailable Reason for Visit * Reason Comments FHx Genetic Disorder * Consultation (Routine) - Closed Specialty Diagnoses / Procedures Referred By Loyd medrano Referred To Contact Obstetrics and Gynecology Diagnoses Maternal obesity affecting , antepartum Family history of neural tube defect Se Veliz MD Phone: tel: fax: [facility] (All Locations) Referral ID Status Reason Start Date Expiration Date V isits Requested Visits Authorized [id number] Closed Specialty Services Required 02/09/2021 05/07/2021 1 1 Encounter Details Date Type Department Care Team (Latest Contact Info) Description 02/25/2021 9:00 AM CDT Clinical Support [facility] Obstetrics and Gynecology [facility] Health 7th Floor [address] [address] Maternal obesity affecting , antepartum; Family [...] on file Legal Sex Female 11:28 PM REFRIGERATING ENGINEER Gender Identity Not on file Sexual Orientation Not on file documented as of this encounter Progress Notes * Juliana Lazaro, CGC - 02/25/2021 9:[address] Veliz, Per your request, Ms. Mary Licona was [facility], [facility] for genetic consultation due to a family [...] record. Ms. Licona has a 17-year-old sister (Suypaa Licona, 11/25/2003) who was born with spina bifida and cleft palate. She has developmental delay. Ms. Licona???s mother was able to provide Suyapa???s [facility] testing results (on her phone, no hard [...] and known genetic conditions. Consanguinity and known Tenriism ancestry were both denied. The patient reported [...] amniocentesis were discussed. Ms. Licona declined amniocentesis. Gmlc-hxql-nrwns DNA screening is not an option. Materni[employer]book Glueome cffDNA ([employer]) does screen for large deletions or duplications; however, Suyapa???s deletion is too small to be detected by this screening. Plan: Ms. 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 She also declined amniocentesis. Recommendations and Further Testing: Ultrasound is recommended at 18-20 weeks gestation to evaluate growth and anatomy. Thank you for the opportunity to participate in the care of Ms. Licona. If you need further information regarding this visit, please feel free to contact me at [phone]. Sincerely, Juliana Lazaro M.S., [facility] Certified Genetic Counselor Total time spent counselin minutes Cosigned by Josué Lemus MD at 04/07/2021 9:46 AM REFRIGERATING ENGINEER IGERATING ENGINEER documented in this encounter Plan of Treatment Not on file documented as of this encounter Visit Diagnoses Diagnosis Maternal obesity affecting , antepartum Family history of neural tube defect Family history of congenital anomalies documented in this encounter Orders Outpatient Referral Count Last Ordered Date Fir st Ordered Date AMB REFERRAL TO OB GENETIC COUNSELING 1 documented in this encounter Care Teams Lead Technical Architect Relationship Specialty Start Date End Date Venecia Turner MD [address] [facility] [address] LEXIE Gramajo [facility] [address] [place] [address] PCP - General 12/11/19 07/21/21 Jarred Roy MD 2 [facility] [address] [place] [address] 01/30/19 Elma Echevarria NP [address] [place] [address] DR LEXIE Gramajo [facility] [address] [place] [address] Nurse Practitioner General Surgery 12/16/19 documented as of this encounter
--- OUTSIDE RECORDS SUMMARY | 2024-05-10 20:52 | XMS_ITS | Encounter Summary ---
Author Organization [facility] Healthcare Address [address] [place] [address] Care Team Providers Care User Interface Developer Name Role Phone Jarred Roy MD Unavailable [phone] Venecia Turner MD Primary Care Provider EyersElma NP Unavailable Reason for Visit * Reason Comments Earache Fever Encounter Details Date Type Department Care Team (Late st Contact Info) Description 02/21/2021 9:17 PM CDT - 02/21/2021 10:57 PM CDT Emergency [facility] Emergency Department [address] [place] [address] Alexandria Villeda MD [address] [place] [address] Otalgia, left ear (Primary Dx) Discharge Disposition: [...] on file Legal Sex Female 11:28 PM ROUTE DELIVERY SUPERVISOR Gender Identity Not on file Sexual [...] through Care Everywhere. * Earache (AfterCare(R) Instructions(ER/ED)) (Ethiopian) documented in this encounter Medications at Time [...] in this encounter ED Notes * Alexandria Villdea MD - 02/21/2021 10:57 PM CDT HPI [...] Primary documented in this encounter Care Teams User Interface Developer Relationship Specialty Start Date End Date Venecia Turner MD [address] [facility] [address] LEXIE Gramajo [facility] [address] [place] [address] PCP - General 12/11/19 07/21/21 Jarred Roy MD 2 [facility] [address] [place] [address] 01/30/19 EyersElma NP [address] [facility] [address] LEXIE Gramajo [facility] [address] [place] [address] Nurse Practitioner General Surgery 12/16/19 documented as of this encounter
--- OUTSIDE RECORDS SUMMARY | 2024-05-10 20:52 | XMS_ITS | Encounter Summary ---
Author Organization [facility] Healthcare Address [address] [place] [address] Care Team Providers Care Teacher'S Aide Name Role Phone Jarred Roy MD Unavailable [phone] Venecia Turner MD Primary Care Provider [phone] Elma Echevarria NP Unavailable Reason for Referral * Medication Authorization (Routine) - Closed Specialty Diagnoses / Procedures Referred By Contac t Referred To Contact Diagnoses Need for Tdap vaccination Se Veliz MD [address] [address] Phone: tel: fax: Referral ID Status Reason Start Date Expiration Date Visits Re quested Visits Authorized [id number] Closed 05/17/2021 06/16/2022 1 1 FILLER Reason for Visit * Reason Comments Routine Visit * Medication Authorization (Routine) - Closed Specialty Diagnoses / Procedures Referred By Contac t Referred To Contact Diagnoses Need for Tdap vaccination Se Veliz MD [address] [place] [address] Phone: tel: fax: Referral ID Status Reason Start Date Expiration Date Visits Re quested Visits Authorized [id number] Closed 05/17/2021 06/16/2022 1 1 Encounter Details Date Type Department Care Team (Late st Contact Info) Description 05/17/2021 1:30 PM DRUM FILLER Office Visit Obstetrics and Gynecology Clinic [address] [facility] 3rd Floor [address] [place] [address] Harika Abrams MD [phone] [place], [place] [id number] Se Veliz MD [address] [address] Supervision of other normal , [...] on file Legal Sex Female 11:28 PM DRUM FILLER Gender Identity Not on file Sexual Orientation Not on file documented as of this encounter Last Filed Vital Signs Vital Sign Reading Time Taken Comments Blood Pressure 119/80 05/17/2021 1:47 PM DRUM FILLER Pulse 83 05/17/2021 1:45 PM DRUM FILLER Temperature 36.3 ??C (97.3 ??F) 05/17/2021 1:45 PM CS T Respiratory Rate 18 05/17/2021 1:45 PM DRUM FILLER Oxygen Saturation 98% 05/17/2021 1:45 PM DRUM FILLER Inhaled Oxygen Concentration - - Weight 128.5 kg (283 lb 4.8 oz) 05/17/2021 1:45 PM DRUM FILLER Height 165.1 cm (5' 5 ) 05/17/2021 1:45 PM DRUM FILLER Body Mass Index 47.14 05/17/2021 1:45 PM DRUM FILLER documented in this encounter Patient Instructions * Patient Instructions* Se Veliz MD - 05/17/2021 1:30 PM DRUM FILLER Contact us Office hours: Monday-Monday 8:30 AM-4:30 PM Phone number: [phone] Daytime: Call us if you have questions [...] medical problem, you can call us at [phone]. Please wait until the clinic is open for non-urgent needs as this emergency line cannot help with appointments, paperwork or prescriptions. If you have an emergency and cannot wait, please call 911 or go to the [facility] Emergency room. If you are having a problem with your or are in labor you can go to the [facility] [place] [facility] (check in near elevator on first floor) 1 [facility], 5th [place] [address]. FILLER documented in this encounter Discharge Disposition Disposition Code Departure Means Destination Discharge to home or self care documented in this encounter Progress Notes * Shaunna Smith RN - 05/17/2021 1:30 PM CST Pt received Rho Ricardo injection. Pt tolerated well. Pt to have blood work including a type and screendone at check out. This is OK'd by Dr. Abrams. FILLER * Se Veliz MD - 05/17/2021 1:30 [...] [x] Method of feeding: Plans breast [] Top Hat Body Maker: [] Car seat: [] PP Depression Counseling [...] with Dr. Abrams. Se Veliz MD PGY-4 (PANEL EDGE SEALER) [phone] Cosigned by Harika Abrams MD at 05/18/2021 4:11 PM DRUM FILLER FILLER FILLER FILLER Associated attestation - Harika Abrams MD - 05/18/2021 4:11 PM DRUM FILLER I have seen and examined the patient. I agree with the findings and plan of care as documented in the resident/fellow's note. documented in this encounter Plan of Treatment Not on file documented as of this encounter Procedures Procedure Name Priority Date/Time Associated Diagnosis Comments PROTEIN / CREATININE RATIO, URINE, RANDOM Routine 05/17/2021 2:35 PM DRUM FILLER Supervision of other normal , antepartum Elevated blood pressure affecting , antepartum EGFR Routine 05/17/2021 2:25 PM DRUM FILLER Supervision of other normal , antepartum Elevated blood pressure affecting , antepartum HIV 1/2 ANTIBODY PLUS P24 ANTIGEN Routine 05/17/2021 2:25 PM DRUM FILLER Supervision of other normal , antepartum RPR Routine 05/17/2021 2:25 PM DRUM FILLER Supervision of other normal , antepartum CBC WITHOUT DIFFERENTIAL Routine 05/17/2021 2:25 PM DRUM FILLER Supervision of other normal , antepartum Elevated blood pressure affecting , antepartum TYPE AND SCREEN Routine 05/17/2021 2:25 PM DRUM FILLER Supervision of other normal , antepartum Maternal obesity affecting , antepartum COMPREHENSIVE METABOLIC PANEL Routine 05/17/2021 2:25 PM DRUM FILLER Supervision of other normal , antepartum Elevated blood pressure affecting , antepartum POCT URINALYSIS DIPSTICK Routine 05/17/2021 1:46 PM DRUM FILLER Supervision of other normal , antepartum documented in this encounter Results * Protein / creatinine ratio, urine, random (05/17/2021 2:35 PM DRUM FILLER) Protein, ur, quant <5.0 mg/dL [facility] Comment: Interpretive Data No reference range established. Current interpretive data was last revised 2018. Creatinine Ur 18.8 mg/dL [facility] Comment: Interpretive Data No reference range established. Current interpretive data was last revised 2018. Protein/creatini ne ratio See Comment 0.0 - 180.0 mg/g CR [facility] Comment:Unable to Calculate Urine 05/17/2021 2:35 PM DRUM FILLER 05/17/2021 4:36 PM DRUM FILLER Se Veliz MD LAB URINE ORDERABLES Fin al Result [facility] One [facility] [place] [address] * (ABNORMAL) eGFR (05/17/2021 2:25 PM DRUM FILLER) eGFR >90(H) 90 - 130 mL/min/1. 73 m2 [facility] Comment: Interpretive Data Reference Interval Normal ?>/= [...] last reviewed 2021. Blood 05/17/2021 2:25 PM DRUM FILLER 05/17/2021 3:03 PM DRUM FILLER us Se Veliz MD LAB BLOOD ORDERABLES Fin al Result Performing Organization Address [facility] [place] [address] * RPR (05/17/2021 2:25 PM DRUM FILLER) [facility] RPR Nonreactive Nonreactive [facility] Blood 05/17/2021 2:25 PM DRUM FILLER 05/17/2021 2:55 PM DRUM FILLER Se Veliz MD LAB MICROBIOLOGY - GENER AL ORDERABLES Final Result Performing Organization Address [facility] [place] [address] * HIV 1/2 Antibody plus p24 Antigen (05/17/2021 2:25 PM DRUM FILLER) [facility] HIV 1/2 ab + p24 ag Nonreactive Nonreactive [facility] Comment: Nonreactive for HIV-1 antigen and HIV-1/HIV-2 antibodies. No laboratory evidence of HIV infection. If acute HIV infection is suspected, consider testing for HIV-1 RNA. Blood 05/17/2021 2:25 PM DRUM FILLER 05/17/2021 2:55 PM DRUM FILLER Se Veliz MD LAB MICROBIOLOGY - GENER AL ORDERABLES Final Result Performing Organization Address [facility] de Phone Number [facility] [place] [address] * (ABNORMAL) CBC without differential (05/17/2021 2:25 PM DRUM FILLER) [facility] WBC 7.4 3.8 - 9.9 K/cumm [facility] Hgb 11.5(L) 11.9 - 15.5 g/dL [facility] Hct 34.2(L) 35.6 - 45.5 % [facility] Plt 198 150 - 400 K/cumm [facility] MPV 10.1 9.1 - 12.3 fL [facility] RBC 3.71(L) 3.90 - 5.20 M/cumm [facility] MCV 92.2 81.3 - 96.4 fL [facility] MCH 31.0 27.1 - 33.3 pg [facility] MCHC 33.6 32.3 - 35.7 g/dL [facility] RDW CV 12.9 11.1 - 14.9 % [facility] RDW SD 43.7 35.7 - 48.1 fL [facility] NRBC abs 0.00 0.00 - 0.01 K/cumm [facility] Blood 05/17/2021 2:25 PM DRUM FILLER 05/17/2021 2:55 PM DRUM FILLER us Se Veliz MD LAB BLOOD ORDERABLES Fin al Result [facility] One [facility] [place] [address] * (ABNORMAL) Comprehensive metabolic panel (05/17/2021 2:25 PM DRUM FILLER) Sodium 139 135 - 145 mmol/L [facility] Potassium, pl 4.0 3.3 - 4.9 mmol/L [facility] Chloride 105 97 - 110 mmol/L [facility] CO2 23 22 - 32 mmol/L [facility] Anion gap 11 2 - 15 mmol/L [facility] BUN 6(L) 8 - 25 mg/dL [facility] Creatinine 0.41(L) 0.60 - 1.10 mg/dL [facility] Glucose 77 70 - 199 mg/dL [facility] Comment: Interpretive Data Fasting glucose [...] 2017. Calcium 9.2 8.5 - 10.3 mg/dL [facility] Bilirubin, total 0.3 0.1 - 1.2 mg/dL [facility] Protein, pl 7.5 6.5 - 8.5 g/dL [facility] Albumin 4.1 3.5 - 5.0 g/dL [facility] Alk phos 85 40 - 130 Units/L [facility] ALT 29 7 - 45 Units/L [facility] AST 22 10 - 45 Units/L [facility] Blood 05/17/2021 2:25 PM DRUM FILLER 05/17/2021 2:54 PM DRUM FILLER Se Veliz MD LAB BLOOD ORDERABLES Fin al Result Performing Organization Address City/[facility]/ZIP Co de Phone Number [facility] [employer] [employer] [place] [address] * Type and screen (05/17/2021 2:25 PM DRUM FILLER) ABO Rh O Negative [facility] Jorge, indirect Negative [facility] Blood 05/17/2021 2:25 PM DRUM FILLER 05/17/2021 3:01 PM DRUM FILLER Narrative [facility] - 05/17/2021 4:24 PM DRUM FILLER Has the patient had Daratumumab or Isatuximab in the past 6 months?->Unknown Se Veliz MD LAB BLOOD BANK TEST ORDE RABLES Final Result [facility] [place] [address] * POCT urinalysis dipstick (05/17/2021 1:46 PM DRUM FILLER) Glucose, ur, POC Negative Negative mg/dL Ketones, ur, POC Negative Negative Blood, ur, POC Negative Negative Protein, ur, POC Negative Negative Nitrite, ur, POC Negative Negative Leukocytes, ur, POC Negative Negative Lot Number [id number] Urine 05/17/2021 1:46 PM DRUM FILLER Se Veliz MD POINT OF CARE TEST ORDER CHILO Final Result documented in this encounter Visit Diagnoses Diagnosis Supervision of other normal , antepartum- Primary Maternal obesity affecting , antepartum Elevated blood pressure affecting , antepartum Family history of neural tube defect Rh negative state in antepartum period Need for Tdap vaccination Need for prophylactic vaccination with combined ilyktbntlf-jzbbhvt-fuumiebha (DTP) vaccine documented in this encounter Administered [...] 28 Weeks Gestation Given 05/17/2021 2:15 PM DRUM FILLER 300 mcg Right Deltoid documented in this encounter Orders Medications Ordered That Quincy ht Not Have Been Administered Count Last Ordered Date First Ordered Date Tdap (BOOSTRIX) 2.5-8-5 Lf-m cg-Lf/0.5mL vaccine 0.5 mL 1 05/17/2021 documented in this encounter Care Teams Teacher'S Aide Relationship Specialty Start Date End Date Venecia Turner MD [address] [place] [address] DR LEXIE Gramajo [facility] [address] [place] [address] PCP - General 12/11/19 07/21/21 Jarred Roy MD [address] [facility] [address] [place] [address] 01/30/19 Elma Echevarria NP [address] [place] [address] DR LEXIE Gramajo [facility] [address] [place] [address] Nurse Practitioner General Surgery 12/16/19 documented as of this encounter
--- OUTSIDE RECORDS SUMMARY | 2024-05-10 20:52 | XMS_ITS | Encounter Summary ---
Author Organization [facility] Healthcare Address [address] [place] [address] Care Team Providers Care Checker Cashier Name Role Phone Jarred Roy MD Unavailable [phone] Venecia Turner MD Primary Care Provider [phone] Elma Echevarria NP Unavailable Reason for Visit * Reason Comments Routine Visit Encounter Details Date Type Department Care Team (Late st Contact Info) Description 03/26/2021 12:30 PM ERGONOMICS TECHNICIAN Office Visit Obstetrics and Gynecology Clinic [address] [facility] [address]rd Floor [address] [place] [address] Harika Abrams MD [address] [facility] [address] [phone] [place] [address] Maverick Stallworth MD PhD [address] [facility] [address] [place] [address] Linnette Garcia MD [address] [facility] Floor [address] [place], [place] [id number] , unspecified gestational age (Primary Dx); Rh [...] on file Legal Sex Female 11:28 PM ERGONOMICS TECHNICIAN Gender Identity Not on file Sexual Orientation Not on file documented as of this encounter Last Filed Vital Signs Vital Sign Reading Time Taken Comments Blood Pressure 130/66 03/26/2021 1:33 PM ERGONOMICS TECHNICIAN Pulse 77 03/26/2021 1:33 PM ERGONOMICS TECHNICIAN Temperature 36.1 ??C (96.9 ??F) 03/26/2021 1:33 PM CS T Respiratory Rate - - Oxygen Saturation 100% 03/26/2021 1:33 PM ERGONOMICS TECHNICIAN Inhaled Oxygen Concentration - - Weight 124.5 kg (274 lb 6.4 oz) 03/26/2021 1:33 PM ERGONOMICS TECHNICIAN Height - - Body Mass Index 45.66 02/21/2021 9:15 PM CDT documented in this encounter Patient Instructions * Patient Instructions* Maverick Stallworht MD PhD - 03/26/2021 12:30 PM ERGONOMICS TECHNICIAN Contact us Office hours: Monday-Monday 8:30 AM-4:30 PM Phone number: [phone] Daytime: Call us if you have questions [...] medical problem, you can call us at [phone]. Please wait until the clinic is open for non-urgent needs as this emergency line cannot help with appointments, paperwork or prescriptions. If you have an emergency and cannot wait, please call 911 or go to the [facility] Emergency room. If you are having a problem with your or are in labor you can go to the [facility] [place] (check in near elevator on first floor) 1 [facility], 5th [place] [address]. NOMICS TECHNICIAN documented in this encounter Discharge Disposition [...] of contraception: [] Method of feeding: [] Group Social Worker: [] Car seat: [] PP Depression Counseling [] Attg visits (06/11) Rh negative state in antepartum period Overview For 28w Rhogam RTC 4 weeks Seen and discussed with Dr. Porter. Maverick Stallworth MD PhD 03/26/21, 2:03 PM Cosigned by Saskia Porter MD at 03/26/2021 2:11 PM ERGONOMICS TECHNICIAN NOMICS TECHNICIAN NOMICS TECHNICIAN Associated attestation - Saskia Porter MD - 03/26/2021 2:11 PM ERGONOMICS TECHNICIAN I have seen and examined the patient. I agree with the findings and plan of care as documented in the resident/fellow's note. documented in this encounter Plan of Treatment Not on file documented as of this encounter Procedures Procedure Name Priority Date/Time Associated Diagnosis Comments POCT URINALYSIS DIPSTICK Routine 03/26/2021 1:36 PM ERGONOMICS TECHNICIAN , unspecified gestational age documented in this encounter Results * POCT urinalysis dipstick (03/26/2021 1:36 PM ERGONOMICS TECHNICIAN) Glucose, ur, POC Negative Negative mg/dL Bilirubin, ur, POC Negative Negative, Small, Moderate, Large Ketones, ur, POC Negative Negative Blood, ur, POC Negative Negative Protein, ur, POC Negative Negative Nitrite, ur, POC Negative Negative Leukocytes, ur, POC Negative Negative Lot Number [id number] Urine 03/26/2021 1:36 PM ERGONOMICS TECHNICIAN us Maverick Stallworth MD PhD POINT OF CARE TEST ORDERABLES Final Result documented in this encounter Visit Diagnoses Diagnosis , unspecified gestational age- Primary Rh negative state in antepartum period Supervision of other normal , antepartum Maternal obesity affecting , antepartum documented in this encounter Care Teams Checker Cashier Relationship Specialty Start Date End Date Venecia Turner MD [address] [facility] [address] LEXIE [facility] [address] [place] [address] PCP - General 12/11/19 07/21/21 Jarred Roy MD 2 [facility] [address] [place] [address] 01/30/19 Elma Echevarria NP [address] [facility] [address] LEXIE Gramajo [facility] [address] [place] [address] Nurse Practitioner General Surgery 12/16/19 documented as of this encounter
--- OUTSIDE RECORDS SUMMARY | 2024-05-10 20:52 | XMS_ITS | Encounter Summary ---
Author Organization [facility] Healthcare Address [address] [place] [address] Care Team Providers Care Golf Club Facer Name Role Phone Jarred Roy MD Unavailable [phone] Venecia Turner MD Primary Care Provider Elma Echevarria NP Unavailable Reason for Referral * Diagnostic Imaging (Routine) - Closed Specialty Diagnoses / Procedures Referred By Contac t Referred To Contact Diagnoses Supervision of high risk in third trimester Procedures US Ob Follow Up Se eVliz MD Phone: tel: fax: [facility] (All Locations) Referral ID Status Reason Start Date Expiration Date Visits Re quested Visits Authorized [id number] Closed 06/16/2021 07/16/2022 1 1 OM MILLER Reason for Visit * Reason Comments Routine Visit Encounter Details Date Type Department Care Team (Late st Contact Info) Description 06/16/2021 1:30 PM CUSTOM MILLER Office Visit Obstetrics and Gynecology Clinic [address] [facility] 3rd Floor [address] [place] [address] Harika Abrams MD [address] [facility] [phone] [place] [address] Se Veliz MD [address] [address] Supervision of high risk in third trimester [...] on file Legal Sex Female 11:28 PM CUSTOM MILLER Gender Identity Not on file Sexual Orientation Not on file documented as of this encounter Last Filed Vital Signs Vital Sign Reading Time Taken Comments Blood Pressure 114/72 06/16/2021 1:40 PM CUSTOM MILLER Pulse 97 06/16/2021 1:40 PM CUSTOM MILLER Temperature 36.6 ??C (97.9 ??F) 06/16/2021 1:40 PM CS T Respiratory Rate - - Oxygen Saturation 98% 06/16/2021 1:40 PM CUSTOM MILLER Inhaled Oxygen Concentration - - Weight 132.9 kg (293 lb) 06/16/2021 1:40 PM CUSTOM MILLER Height - - Body Mass Index 48.76 05/17/2021 1:45 PM CUSTOM MILLER documented in this encounter Patient Instructions * Patient Instructions* Se Veliz MD - 06/16/2021 1:30 PM CUSTOM MILLER Contact us Office hours: Monday-Monday 8:30 AM-4:30 PM Phone number: [phone] Daytime: Call us if you have questions [...] medical problem, you can call us at [phone]. Please wait until the clinic is open for non-urgent needs as this emergency line cannot help with appointments, paperwork or prescriptions. If you have an emergency and cannot wait, please call 911 or go to the [facility] Emergency room. If you are having a problem with your or are in labor you [facility] (check in near elevator on first floor) 1 [facility], 5th [place] [address]. OM MILLER documented in this encounter Discharge Disposition Disposition [...] [x] Method of feeding: Plans breast [] Forecast Analyst: [] Car seat: [] PP Depression Counseling [x] Attg visits (08/09) Relevant Orders POCT urinalysis dipstick (Completed) US Ob Follow Up RTC 1 weeks for growth and check presentation Patient discussed with Dr. Zavala. Se Veliz MD PGY-4 (INFORMATION STRATEGIST) [phone] Cosigned by Kerry Zavala DO at 06/18/2021 1:23 PM CUSTOM MILLER OM MILLER OM MILLER Associated attestation - Kerry Zavala DO - 06/18/2021 1:23 PM CUSTOM MILLER I agree with the findings and plan [...] POCT URINALYSIS DIPSTICK Routine 06/16/2021 1:42 PM CUSTOM MILLER Supervision of high risk in third trimester documented in this encounter Results * US Ob Follow Up (06/23/2021 2:31 PM CUSTOM MILLER) Fetus# Fetus1 VIEWPOINT Placenta Details anterior VIEWPOINT Estimated Weight 2,568 g&grams VIEWPOINT Presentation Vertex VIEWPOINT Anatomical Region Laterality Modality Abdomen N/A Ultrasound 06/23/2021 2:34 PM CUSTOM MILLER us Se Veliz MD IMG OB US PROCEDURES Fin al Result * POCT urinalysis dipstick (06/16/2021 1:42 PM CUSTOM MILLER) Glucose, ur, POC Negative Negative mg/dL Ketones, ur, POC Negative Negative Blood, ur, POC Negative Negative Protein, ur, POC Negative Negative Nitrite, ur, POC Negative Negative Leukocytes, ur, POC Negative Negative Lot Number [id number] Urine 06/16/2021 1:42 PM CUSTOM MILLER Se Veliz MD POINT OF CARE TEST ORDER CHILO Final Result documented in this encounter Visit Diagnoses Diagnosis Supervision of high risk in third trimester- Primary Maternal obesity affecting , antepartum Elevated blood pressure affecting , antepartum Rh negative state in antepartum period documented in this encounter Care Teams Golf Club Facer Relationship Specialty Start Date End Date Venecia Turner MD [address] [facility] [address] LEXIE Gramjao [facility] [address] [place] [address] PCP - General 12/11/19 07/21/21 Jarred Roy MD 2 [facility] [address] [place] [address] 01/30/19 EyeElma charles NP [address] [facility] [address] LEXIE Gramajo [facility] [address] [place] [address] Nurse Practitioner General Surgery 12/16/19 documented as of this encounter
--- OUTSIDE RECORDS SUMMARY | 2024-05-10 20:52 | XMS_ITS | Encounter Summary ---
Author Organization [facility] Healthcare Address [address] [place] [address] Care Team Providers Care Bezel Cutter Name Role Phone Jarred Roy MD Unavailable [phone] Venecia Turner MD Primary Care Provider [phone] EyersElma NP Unavailable Encounter Details Date Type Department Care Team (Late st Contact Info) Description 07/19/2021 12:45 PM CDT Anesthesia Event [address] [address] Jayleen Corcoran MD [address] [place] [address] Wilton Feldman MD [address] [place] [address] Anesthesia Record Procedure Summary Procedure Name Responsible [...] in a halfway (including now)? No 07/21/2021 Comments Yes Sex and Gender Information Value Date Recorded Sex Assigned at Not on file Legal Sex Female 11:28 PM MATERIAL MOVERS Gender Identity Not on file Sexual Orientation [...] antepartum ??? Acute sinusitis ??? Astigmatism ??? [id number] spots ??? Chronic daily headache ??? Facial [...] tablet (1 mg total) by mouth daily [id number] () 28-800 mg-mcg tablet -- -- [...] mL documented in this encounter Care Teams Bezel Cutter Relationship Specialty Start Date End Date Venecia Turner MD [address] [facility] [address] LEXIE Gramajo [facility] [address] [place] [address] PCP - General 12/11/19 07/21/21 Jarred Roy MD 2 [facility] [address] [place] [address] 01/30/19 Elma Echevarria NP [address] [facility] [address] LEXIE Gramajo [facility] [address] [place] [address] Nurse Practitioner General Surgery 12/16/19 documented as of this encounter
--- OUTSIDE RECORDS SUMMARY | 2024-05-10 20:52 | XMS_ITS | Encounter Summary ---
Author Organization [facility] Healthcare Address [address] [place] [address] Care Team Providers Care Conference Services Coordinator Name Role Phone Jarred Roy MD Unavailable [phone] Venecia Turner MD Primary Care Provider [phone] Elma Echevarria NP Unavailable Reason for Referral * (Routine) - Closed Specialty Diagnoses / Procedures Referred By Contac t Referred To Contact Diagnoses Supervision of other normal , antepartum Procedures Labor Induction - Se Veliz MD Phone: tel: fax: [address] [phone] Referral ID Status Reason Start Date Expiration Date Visits Re quested Visits Authorized [id number] Closed 06/23/2021 07/23/2022 1 1 Reason for Visit * Reason Comments Scheduled Induction Encounter Details Date Type Department Care Team (Latest Contact Info) Description 07/19/2021 8:10 AM CDT - 07/21/2021 3:21 PM CDT Hospital Encounter [address] [phone] Amanda Dent MD [address] [facility] [phone] [place] [address] Jovan Healy MD [address] [phone] [place] [address] Encounter for induction of labor (Primary Dx); [...] week 07/21/2021 How often do you attend [facility] or protestant services? Never 07/21/2021 Do you [...] in a custodial (including now)? No 07/21/2021 Comments No Sex and Gender Information Value Date Recorded Sex Assigned at Not on file Legal Sex Female 11:28 PM DISTRICT REPRESENTATIVE Gender Identity Not on file Sexual [...] Care Physician at Discharge: Venecia Turner MD [phone] Admission Date: 07/19/2021 Discharge Date: 07/21/2021 Admission Location: [facility] Problems/Diagnoses: Active Problems: state Resolved Problems: No [...] FOLVITE 28-800 mg-mcg tablet daily Generic drug: [id number]-vystapt fumarate-FA Outpatient Follow-Up: 2-6 week follow up [...] first call our OB communication center at [phone]. * If you have SEVERE illness including [...] hours). Do NOT supplement unless instructed by Appliance Fixer. Call your Appliance Fixer if your baby has poor eating habits [...] call our centralized OB communication center at [phone]. Do not come to the hospital or clinic until you speak with a provider. Contact Information for your primary OB: *[facility] - [address] [place] [address] Call to schedule an appointment in 2-6 [...] should call the doctor if you experience: camp tender risks of preeclampsia If you had preeclampsia [...] as: FOLVITE 28-800 mg-mcg tablet Generic drug: [id number]-zwbrnsb fumarate-FA documented in this encounter Medications at [...] future transfusions. Contact Information: Please contact the [facility] with any questions. This report has been prepared by: Mohinder Joe MD Cosigned by Genesis Peña MD at 07/21/2021 4:01 PM CDT Associated attestation - Genesis Peña MD - 07/21/2021 4:01 PM CDT Attestation: I have personally reviewed the antibody result and agree with the interpretation contained in this written blood bank report. Genesis Peña MD * Deanne Drake ACCOUNTS PAYABLE BOOKKEEPER - 07/21/2021 11:38 AM CDT Reason for Admission MOB (Mary Licona 2000) was admitted on 07/19/2021 for OB TRIAGE. 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 Pediatric follow-up to be scheduled with Dr. Salomon. Medical insurance coverage is through [facility]. Information Baby girl was born on 07/[birth year]21 at EGA 39.1 weeks and has been named Kerry. Delivery was Vaginal, Spontaneous . weighed 6lbs 15.1oz at delivery. will be breast/formula fed. This is mother's 1st child. Social History Current address is [address] [place] [address], where she lives with her mother. Currently [phone] (home) is the best phone number for [...] additional needs should they arise. Deanne Drake, RABBLER, ACCOUNTS PAYABLE BOOKKEEPER [facility] [employer] Integr[employer] [facility] * Suyapa Nava MD - 07/21/2021 5:38 [...] antepartum ??? Acute sinusitis ??? Astigmatism ??? Nmsf-ph-zuhz spots ??? Chronic daily headache ??? Facial [...] ??? benzocaine-menthoL ??? calcium carbonate ??? COVID-19 mRNA,[id number] ??? hydrocortisone ??? ibuprofen ??? influenza quadrivalent [id number] ??? cqofhmx-gatjj-clcfgqs ??? ondansetron ODT OR ondansetron ??? polyethylene [...] O Negative 07/20/2021 IDCOOMB Positive (A) 07/19/2021 [id number] Nonreactive 05/17/2021 LABRPR Nonreactive 07/19/2021 Rubella Non-immune [...] will start pushing shortly. Linnette Garcia MD [id number] Addendum BSUS performed and fetus direct OP. [...] Sex Delivery Anes PTL Lv 1 Current FISH BONING MACHINE FEEDER History: No LMP recorded. Patient is . [...] spray folic acid (FOLVITE) 1 mg tablet [id number]-gwpvbqf fumarate-FA () 28-800 mg-mcg tablet bacitracin (bacitracin) [...] ABORH O Negative 05/17/2021 IDCOOMB Negative 05/17/2021 [id number] Nonreactive 05/17/2021 LABRPR Nonreactive 05/17/2021 Rh neg/Ab [...] Wu MD - 07/20/2021 6:01 AM CDT [facility] Vaginal Delivery Note Patient's Name: Mary Licona [...] antepartum ??? Acute sinusitis ??? Astigmatism ??? Xvzc-ms-sgex spots ??? Chronic daily headache ??? Facial [...] kg) female APGARs: 8 / 9 Disposition: [facility] Labor Summary: Mary Licona is a [...] CDT) WBC 15.4(H) 3.8 - 9.9 K/cumm [facility] Hgb 10.3(L) 11.9 - 15.5 g/dL [facility] Hct 30.5(L) 35.6 - 45.5 % [facility] Plt 210 150 - 400 K/cumm [facility] MPV 10.0 9.1 - 12.3 fL [facility] RBC 3.32(L) 3.90 - 5.20 M/cumm [facility] MCV 91.9 81.3 - 96.4 fL [facility] MCH 31.0 27.1 - 33.3 pg [facility] MCHC 33.8 32.3 - 35.7 g/dL [facility] RDW CV 13.2 11.1 - 14.9 % [facility] RDW SD 43.8 35.7 - 48.1 fL [facility] NRBC abs 0.00 0.00 - 0.01 K/cumm [facility] Blood 07/20/2021 1:34 PM CDT 07/20/2021 1:37 PM CDT us Amanda Dent MD LAB BLOOD ORDERABLES Final Res ult [facility] Department [place] [address] * Bleed Screen (07/20/2021 12:41 PM CDT) Bleed Screen Negative [facility] Blood 07/20/2021 12:4 1 PM CDT 07/20/2021 1:29 PM CDT Linnette Garcia MD LAB BLOOD BANK TEST ORDE RABLES Final Result Performing Organization Address [facility]/ZIP Co de Phone Number [facility] [place] [address] * ABO/Rh (07/20/2021 12:41 PM CDT) ABO Rh O Negative [facility] Blood 07/20/2021 12:4 1 PM CDT 07/20/2021 1:29 PM CDT Linnette Garcia MD LAB BLOOD BANK TEST ORDE RABLES Final Result Performing Organization Address [facility] de Phone Number [facility] [place] [address] * Rh Immune Globulin Eval (07/20/2021 12:41 PM CDT) RhIg Administration 1 vial of Rh Immune Globulin (300 mcg dose) [facility] RhIg Eligible Yes, eligible [facility] Blood 07/20/2021 12:4 1 PM CDT 07/20/2021 1:29 PM CDT Narrative [facility] - 07/20/2021 2:27 PM CDT Number of weeks ?->20 weeks or greater antibody screen result:->Negative Rhogam given?->Unknown Number of vials requested:->1 Amanda Dent MD LAB BLOOD BANK TEST ORDERABLES Final Result [facility] Department [place] [address] * US OB Limited (07/19/2021 12:07 PM CDT) Anatomical Region Laterality Modality Abdomen N/A Ultrasound Narrative 07/19/2021 12:07 PM CDT Vertex presentation on bedside ultrasound. Images reviewed. Jovan Healy MD us Jovan Healy MD IMG OB US PROCEDURES Final Result * Protein / creatinine ratio, urine, random (07/19/2021 11:56 AM CDT) Protein, ur, quant <5.0 mg/dL [facility] Comment: Interpretive Data No reference range established. Current interpretive data was last revised 2018. Creatinine Ur 21.5 mg/dL [facility] Comment: Interpretive Data No reference range established. Current interpretive data was last revised 2018. Protein/creatini ne ratio See Comment 0.0 - 180.0 mg/g CR [facility] Comment:Unable to Calculate Urine 07/19/2021 11:5 6 AM CDT 07/19/2021 12:04 PM CDT us Jovan Healy MD LAB URINE ORDERABLES Final Result Performing Organization Address City/[facility]/ZIP Co de Phone Number [facility] Department [place] [address] * Antibody identification (07/19/2021 10:27 AM CDT) Antibody ID 1 Passive Anti-D [facility] Blood 07/19/2021 10:2 7 AM CDT 07/19/2021 10:27 AM CDT us Jovan Healy MD LAB BLOOD BANK TEST ORDERAB LES Final Result [facility] Department [place] [address] * (ABNORMAL) eGFR (07/19/2021 9:06 AM CDT) [facility] eGFR >90(H) 90 - 130 mL/min/1. [...] MD LAB BLOOD ORDERABLES Final Result [facility] Department [place] [address] * Influenza A/B, RSV, and COVID-19 PCR Nasopharyngeal (07/19/2021 9:06 AM CDT) [facility] COVID-19 RNA Negative Negative [facility] Influenza A RNA Negative Negative [facility] Influenza B RNA Negative Negative [facility] RSV RNA Negative Negative [facility] Comment: Interpretive data: Testing performed by [facility] ([phone]). This test is performed using the Translimit Xpert Xpress CoV-2/Flu/RSV plus assay. This is a multiplex, real-time reverse transcriptase PCR assay intended for the qualitative detection of nucleic acid from SARS-CoV-2, influenza A, influenza B, and respiratory syncytial virus. This assay has been reviewed by the FDA for Emergency Use Authorization (EUA). The performance characteristics have been verified by the [facility]. Results must be considered in the clinical context, and a negative result does not rule out infection. Interpretive Data last revised 2021. First COVID-19 test? No [facility] Employeed in healthcare? No [facility] status? Yes [facility] Group care resident? No [facility] Hospitalized? Yes [facility] Is patient in ICU? No [facility] Symptomatic as defined by CDC? No [facility] Nasopharyngeal 07/19/2021 9: 06 AM CDT 07/19/2021 10:33 AM CDT Narrative [facility] - 07/19/2021 11:26 AM CDT Reason for testing?->Labor and delivery Known exposure to confirmed or suspected COVID-19 case?->No Jovan Healy MD LAB MICROBIOLOGY - GENERAL ORDERABLES Final Result Performing Organization Address City/State/[facility] Co de Phone Number [facility] Department [place] [address] * RPR (07/19/2021 9:06 AM CDT) Pathologist [facility] RPR Nonreactive Nonreactive [facility] Blood 07/19/2021 9:06 AM CDT 07/19/2021 9:21 AM CDT Jovan Healy MD LAB MICROBIOLOGY - GENERAL ORDERABLES Final Result [facility] Department [place] [address] * (ABNORMAL) Comprehensive metabolic panel (07/19/2021 9:06 AM CDT) Sodium 139 135 - 145 mmol/L [facility] Potassium, pl 4.0 3.3 - 4.9 mmol/L [facility] Chloride 105 97 - 110 mmol/L [facility] CO2 25 22 - 32 mmol/L [facility] Anion gap 9 2 - 15 mmol/L [facility] BUN 5(L) 8 - 25 mg/dL [facility] Creatinine 0.47(L) 0.60 - 1.10 mg/dL [facility] Glucose 80 70 - 199 mg/dL [facility] Comment: Interpretive Data Fasting glucose >/= [...] 2017. Calcium 9.2 8.5 - 10.3 mg/dL [facility] Bilirubin, total 0.2 0.1 - 1.2 mg/dL [facility] Protein, pl 6.7 6.5 - 8.5 g/dL [facility] Albumin 3.8 3.5 - 5.0 g/dL [facility] Alk phos 136(H) 40 - 130 Units/L [facility] ALT 21 7 - 45 Units/L [facility] AST 20 10 - 45 Units/L [facility] Blood 07/19/2021 9:06 AM CDT 07/19/2021 9:21 AM CDT Jovan Healy MD LAB BLOOD ORDERABLES Final Result [facility] Department [place] [address] * (ABNORMAL) CBC without differential (07/19/2021 9:06 AM CDT) Pathologist [facility] WBC 8.6 3.8 - 9.9 K/cumm [facility] Hgb 11.4(L) 11.9 - 15.5 g/dL [facility] Hct 34.4(L) 35.6 - 45.5 % [facility] Plt 239 150 - 400 K/cumm [facility] MPV 10.1 9.1 - 12.3 fL [facility] RBC 3.79(L) 3.90 - 5.20 M/cumm [facility] MCV 90.8 81.3 - 96.4 fL [facility] MCH 30.1 27.1 - 33.3 pg [facility] MCHC 33.1 32.3 - 35.7 g/dL [facility] RDW CV 13.4 11.1 - 14.9 % [facility] RDW SD 44.0 35.7 - 48.1 fL [facility] NRBC abs 0.00 0.00 - 0.01 K/cumm [facility] Blood 07/19/2021 9:06 AM CDT 07/19/2021 9:21 AM CDT Jovan Healy MD LAB BLOOD ORDERABLES Final Result Performing Organization Address [facility] Co de Phone Number [facility] Department [place] [address] * (ABNORMAL) Type and screen (07/19/2021 9:06 AM CDT) Pathologist [facility] Jorge, indirect Positive(A) [facility] ABO Rh O Negative [facility] Blood 07/19/2021 9:06 AM CDT 07/19/2021 9:22 AM CDT Narrative [facility] - 07/19/2021 10:27 AM CDT Has the patient had Daratumumab or Isatuximab in the past 6 months?->Unknown us Jovan Healy MD LAB BLOOD BANK TEST ORDERAB LES Final Result [facility] Department [place] [address] documented in this encounter Visit Diagnoses Diagnosis [...] Given 07/20/2021 5:32 AM CDT 2 mg iilxyna-fyidi-hjvadki (MMR) 1,000-12,500 TCID50/0.5 mL live vaccine 0.5 mL 0.5 mL, subcutaneous, During hospitalization, immunization, Starting on Mon07/21/21 at 1200, For 1 dose, If not rubella immune. Warning: This is a live or live attenuated vaccine. Refrigerate, Indications: Jvuqgmo-Rrzkp-Ohqbfxi VaccinationIndications:M holbtv-Qwwqc-Fzjylyc Vaccination Given 07/21/2021 12:26 PM CDT 0.5 [...] AM CDT 5 Million Units PNV with vrnddao-eeut-WT tablet 1 tablet 1 tablet, oral, Daily, [...] daily Stop Taking at Discharge 02/09/2021 07/21/2021 [id number]-tvclczm fumarate-FA () 28-800 mg-mcg tablet daily Stop [...] - Provider: Irvin Rosado, TRAY) PNV with cctzpgr-ssdk-ED tablet 1 tablet 1 tablet, oral, Daily, [...] open., Indications: Cramps 0903 (Due) influenza quadrivalent 2582-2314 (FLULAVAL,FLUARIX,FLUZON E) 60 mcg (15 mcg x [...] (Given - Provider: Ana Lilia Mejia, TRAY) vbnrjln-sempc-fymadpx (MMR) 1,000-12,500 TCID50/0.5 mL live vaccine 0.5 mL (COMPLETED) 0.5 mL, subcutaneous, During hospitalization, immunization, Starting on Mon07/21/21 at 1200, For 1 dose, If not rubella immune. Warning: This is a live or live attenuated vaccine. Refrigerate, Indications: Mdkqmdx-Osfzr-Prisavm Vaccination 1226 (Given - Provider: Elo Proctor [...] 07/19/2021 documented in this encounter Care Teams Conference Services Coordinator Relationship Specialty Start Date End Date Venecia Turner MD [address] [place] [address] [address] [facility] [address] [place], [place] [id number] PCP - General 12/11/19 07/21/21 Jarred Roy MD [address] [facility] [address] [place] [address] 01/30/19 EyersElma NP [address] [place] [address] [address] [facility] [address] [place] [address] Nurse Practitioner General Surgery 12/16/19 documented as of this encounter
--- OUTSIDE RECORDS SUMMARY | 2024-05-10 20:52 | XMS_ITS | Encounter Summary ---
Author Organization [facility] Healthcare Address [facility] [place] [address] Care Team Providers Care Dump Truck Driver Name Role Phone Jarred Roy MD Unavailable [phone] Elma Echevarria NP Unavailable Venecia Turner MD Primary Care Provider [phone] Reason for Visit * Reason Comments Follow-up Encounter Details Date Type Department Care Team (Late st Contact Info) Description 09/03/2021 10:15 AM CDT Office Visit Obstetrics and Gynecology Clinic [facility] 3rd Floor [address] [place] [address] Arabella Daniels MD [address] [place] [address] Encounter for routine follow-up Social History [...] week 07/21/2021 How often do you attend [facility] or shinto services? Never 07/21/2021 Do you [...] a nursing home (including now)? No 07/21/2021 [place] Depression Scale Answer Date Recorded [place] Depression Scale Total 6 09/03/2021 The thought of harming myself has occurred to me . 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 Arriaga. Patient to follow-up with provider in [place] for well woman care. Arabella Daniels MD [...] follow-up documented in this encounter Care Teams Dump Truck Driver Relationship Specialty Start Date End Date Venecia Turner MD [address] [facility] [address] [facility] [address] [place] [address] PCP - General 08/16/21 02/08/22 Jarred Roy MD 2 [facility] [address] [place] [address] 01/30/19 Elma Echevarria NP [address] [facility] [address] [place] [address] Nurse Practitioner General Surgery 12/16/19 documented as of this encounter
--- OUTSIDE RECORDS SUMMARY | 2024-05-10 20:52 | XMS_ITS | Encounter Summary ---
Author Organization [facility] Healthcare Address [address] [place] [address] Care Team Providers Care Night Supervisor Name Role Phone Jarred Roy MD Unavailable [phone] Venecia Turner MD Primary Care Provider [phone] Elma Echevarria NP Unavailable Reason for Referral * Consultation (Routine) - Closed Specialty Diagnoses / Procedures Referred By Loyd medrano Referred To Contact Obstetrics and Gynecology Diagnoses Maternal obesity affecting , antepartum Family history of neural tube defect Se Acosta MD Phone: tel: fax: [facility] (All Locations) Referral ID Status Reason Start Date Expiration Date V isits Requested Visits Authorized [id number] Closed Specialty Services Required 02/09/2021 05/07/2021 1 1 Question Answer Please select the performing region: [facility] (All Locations) [[id number]] # of visits: 1 Comments Sister with spina bifida and cerebral palsy but patient states she (the sister) recently underwent genetic testing and has a deletion on chromosome 8 * Diagnostic Imaging (Routine) - Closed Specialty Diagnoses / Procedures Referred By Loyd medrano Referred To Contact Diagnoses Family history of neural tube defect Procedures US Ob Detail Anatomy Single Or First Gestation Se Acosta MD Phone: tel: fax: [facility] (All Locations) Referral ID Status Reason Start Date Expiration Date Visits Re quested Visits Authorized [id number] Closed 02/09/2021 03/11/2022 1 1 Reason for Visit * Reason Comments Initial Visit High Risk Gestation Encounter Details Date Type Department Care Team (Late st Contact Info) Description 02/09/2021 9:00 AM CDT Initial Obstetrics and Gynecology Clinic [address] [facility] 3rd Floor [address] [place] [address] Harika Abrams MD [address] [facility] [phone] [place], [place] [id number] Se Acosta MD [address] [id number] [place]: 16w1d Discharge Disposition: Discharge to home or self care Social History Tobacco Use Types Packs/Day Years Used Date Smoking Tobacco: Never Smokeless Tobacco: Never Alcohol Use Standard Drinks/Week Comments No 0 (1 standard drink = 0.6 oz pur e alcohol) Comments Yes Sex and Gender Information Value Date Recorded Sex Assigned at Not on file Legal Sex Female 11:28 PM DOCUMENTATION SPECIALIST Gender Identity Not on file Sexual [...] Body Mass Index 43.97 03/11/2020 9:45 AM DOCUMENTATION SPECIALIST documented in this encounter Patient Instructions * Patient Instructions* Se Acosta MD - 02/09/2021 9:00 AM CDT Contact us Office hours: Monday-Monday 8:30 AM-4:30 PM Phone number: [phone] Daytime: Call us if you have questions [...] medical problem, you can call us at [phone]. Please wait until the clinic is open for non-urgent needs as this emergency line cannot help with appointments, paperwork or prescriptions. If you have an emergency and cannot wait, please call 911 or go to the [facility] Emergency room. If you are having a problem with your or are in labor you can [facility] (check in near elevator on first floor) [facility], 5th [place] [address]. documented in this encounter Ordered Prescriptions Prescription [...] Se Acosta MD Referring Provider: Dr. James's INSULATION BOARD COATER OPERATOR Mary Licona is a 20 y.o. [...] Cell Disease or Trait () [-] Thalasemia (Kenyan, Paraguayan, Medit or ; MCV <80) [-] Holger Sachs Disease (Sikh, Cajun, German Itmann) [-] Down's Syndrome [+] Neural Tube Defects (Meningomyelocele, Spina Bifida or Anencephaly) [-] Other Developmental Delay [-] Cystic Fibrosis [-] Orange's Chorea [-] Muscular Dystrophy [-] Hemophilia [-] [...] RPR, HEPBSAG, GBS Assessment and Plan: Mary Licoan is a 20 y.o. at 16w1d by [...] of contraception: [] Method of feeding: [] Customer Security Clerk: [] Car seat: [] PP Depression [...] expected weight gain, medications, and smoking/EtOH. Discussed [facility] location and early precautions. Reviewed importance of COVID vaccination. Next US: specialized anatomy at [facility] RTC in 4 weeks, 2 weeks for anatomy and GC The patient was seen and discussed with Dr. Hopkins and Dr. Berrios. Se Acosta MD PGY-4 (FINANCIAL SPECIALIST) [phone] [facility] Fellow Attestation I have seen and discussed [...] Single Or First Gestation (03/26/2021 10:58 AM DOCUMENTATION SPECIALIST) Fetus# Fetus1 VIEWPOINT Placenta Details anterior, Previa-no, no placental masses VIEWPOINT Estimated Weight 518 g&grams VIEWPOINT Presentation Vertex VIEWPOINT Anatomical Region Laterality Modality Body N/A Ultrasound 03/26/2021 11:0 7 AM DOCUMENTATION SPECIALIST us Se Acosta MD IMG OB US PROCEDURES Fin al Result * Alpha fetoprotein, quad screen (02/09/2021 10:40 AM CDT) Recalc Maternal Serum Screen. Not Reported [facility] Collection Date 02/09/21 [facility] Birthdate. [birth year] [facility] Calc Age at CICI. 21 years [facility] Patient weight 119 [facility] Maternal Wt 1. Not Reported [facility] Insulin Dependent Diabetes. No [facility] Number of Fetuses 1 [facility] Ivf . No [facility] CICI by U/S Scan. 07/26/2021 [facility] CICI by LMP. Not Reported [facility] GA on Collection by U/S Scan. 16,1 [facility] GA on Collection by Dates. Not Reported [facility] GA Used In Risk. Scan estimate [facility] alpha Fetoprotein 24.8 ng/mL [facility] Estriol, unconjugated 0.91 ng/mL [facility] HCG, qual 22.9 IUnits/m L [facility] Inhibin A, interpretation 83 pg/mL [facility] Down Syndrome Screen Risk Estimate. 05/30,000 <1/270 [facility] Down Syndrome Maternal Age Risk. [facility] Trisomy 18 risk assessment 14,000 <1/100 [facility] alpha fetoprotein See Footnote [facility] Comment: Screen negative for neural tube defects, Down syndrome and trisomy 18. Additional Comments. Not Reported [facility] Recommended Follow Up. None. [facility] General Test Info. See Footnote [...] developed and its performance characteristics determined by [facility] in a manner consistent with CLIA requirements. This test has not been cleared or approved by the U.S. Food and Drug Administration. Test Performed by: [facility] [address] [place] [address] Green House Manager: Geoffrey Catherine M.D. Ph.D.; CLIA# [id number] RESULTS SUMMARY Normal risk [facility] NEURAL TUBE DEFECT RISK ESTIMATE 1/11,000 SAY [facility] AFP MOM 0.64 <2.50 MoM [facility] AFP MOM (14,0-14,6) Not Reported [facility] UE3 MOM 0.86 MoM [facility] HCG,TOTAL MOM 0.61 MoM [facility] INHIBIN MOM 0.52 MoM [facility] PATIENT RACE non-Black [facility] CURRENT CIGARETTE SMOKING STATUS non-Smoker [facility] NUMBER OF CHORIONS Unknown [facility] PREV DOWN (T21) / TRISOMY No [facility] PREV W/NEURAL TUBE DEFECT No [facility] PATIENT OR FATHER OF BABY HAS NTD No [facility] INITIAL OR REPEAT TESTING Initial testing [facility] PHYSICIAN PHONE NUMBER [phone] [facility] Blood 02/09/2021 10:4 0 [...] MD LAB GENETIC TESTING Dilcia Result [facility] [place] [address] * POCT urinalysis dipstick (02/09/2021 10:12 AM CDT) Glucose, ur, POC Negative Negative mg/dL Bilirubin, ur, POC Negative Negative, Small, Moderate, Large Ketones, ur, POC Negative Negative Blood, ur, POC Negative Negative Protein, ur, POC Negative Negative Nitrite, ur, POC Negative Negative Leukocytes, ur, POC Negative Negative Lot Number [id number] Urine 02/09/2021 10:1 2 AM CDT us [...] period documented in this encounter Care Teams Night Supervisor Relationship Specialty Start Date End Date Venecia Turner MD [address] [place] [address] DR LEXIE Gramajo [facility] [address] [place] [address] PCP - General 12/11/19 07/21/21 Jarred Roy MD 2 [facility] [address] [place] [address] 01/30/19 Elma Echevarria NP [address] [facility] [address] LEXIE Gramajo [facility] [address] [place] [address] Nurse Practitioner General Surgery 12/16/19 documented as of this encounter
--- OUTSIDE RECORDS SUMMARY | 2024-05-10 20:52 | XMS_ITS | Encounter Summary ---
Author Organization [facility] Healthcare Address [address] [place] [address] Care Team Providers Care Observatory Director Name Role Phone Jarred Roy MD Unavailable [phone] Venecia Turner MD Primary Care Provider [phone] Elma Echevarria NP Unavailable Reason for Visit * Reason Comments Routine Visit Encounter Details Date Type Department Care Team (Late st Contact Info) Description 07/15/2021 12:30 PM CONSUMER MARKETING MANAGER Office Visit Obstetrics and Gynecology Clinic [address] [facility] 3rd Floor [address] [place] [address] Harika Abrams MD [address] [facility] [phone] [place] [address] Se Veliz MD [address] [address] Maternal obesity affecting , antepartum (Primary Dx); [...] on file Legal Sex Female 11:28 PM CONSUMER MARKETING MANAGER Gender Identity Not on file Sexual Orientation Not on file documented as of this encounter Last Filed Vital Signs Vital Sign Reading Time Taken Comments Blood Pressure 129/69 07/15/2021 12:31 PM CONSUMER MARKETING MANAGER Pulse 100 07/15/2021 12:31 PM CONSUMER MARKETING MANAGER Temperature 36.1 ??C (97 ??F) 07/15/2021 12:31 PM CONSUMER MARKETING MANAGER Respiratory Rate - - Oxygen Saturation 98% 07/15/2021 12:31 PM CONSUMER MARKETING MANAGER Inhaled Oxygen Concentration - - Weight 134 kg (295 lb 6.4 oz) 07/15/2021 12:31 P M CONSUMER MARKETING MANAGER Height - - Body Mass Index 49.16 06/22/2021 12:59 PM CONSUMER MARKETING MANAGER documented in this encounter Discharge Disposition Disposition [...] [x] Method of feeding: Plans breast [] Director Occupational: [] Car seat: [] PP Depression Counseling [x] Attg visits (11/08) Relevant Orders POCT urinalysis dipstick (Completed) RTC for IOL Patient seen and discussed with Dr. García. Se Veliz MD PGY-4 (ASSOCIATE DIRECTOR OF DEVELOPMENT) [phone] Cosigned by Nelsy García MD at 07/16/2021 7:56 AM CONSUMER MARKETING MANAGER UMER MARKETING MANAGER UMER MARKETING MANAGER Associated attestation - Nelsy García MD - 07/16/2021 7:56 AM CONSUMER MARKETING MANAGER ATTESTATION: I have seen and examined the [...] POCT URINALYSIS DIPSTICK Routine 07/15/2021 12:36 PM CONSUMER MARKETING MANAGER Supervision of other normal , antepartum documented in this encounter Results * POCT urinalysis dipstick (07/15/2021 12:36 PM CONSUMER MARKETING MANAGER) Glucose, ur, POC Negative Negative mg/dL Ketones, ur, POC Negative Negative Blood, ur, POC Negative Negative Protein, ur, POC Negative Negative Nitrite, ur, POC Negative Negative Leukocytes, ur, POC Negative Negative Lot Number [id number] Urine 07/15/2021 12:3 6 PM CONSUMER MARKETING MANAGER us Se Veliz MD POINT OF CARE [...] sulfate HFA 90 mcg/actuation aerosol inhaler 2 ALV125-jlekmur fumarate-FA () 28-800 mg-mcg tablet daily 2 mupirocin (BACTROBAN) 2 % ointment mupirocin 2 % topical ointment 2 added in this encounter Care Teams Observatory Director Relationship Specialty Start Date End Date Venecia Turner MD [address] [facility] [address] LEXIE Gramajo [facility] [address] [place] [address] PCP - General 12/11/19 07/21/21 Jarred Roy MD 2 [facility] [address] [place] [address] 01/30/19 EyeElma charles NP [address] [facility] [address] LEXIE Gramajo [facility] [address] [place] [address] Nurse Practitioner General Surgery 12/16/19 documented as of this encounter
--- OUTSIDE RECORDS SUMMARY | 2024-05-10 20:52 | XMS_ITS | Encounter Summary ---
Author Organization [facility] Healthcare Address [address] [place] [address] Care Team Providers Care Watchmaking Teacher Name Role Phone Jarred Roy MD Unavailable [phone] Venecia Turner MD Primary Care Provider [phone] Elma Echevarria NP Unavailable Reason for Referral * Diagnostic Imaging (Routine) - Closed Specialty Diagnoses / Procedures Referred By Contac t Referred To Contact Diagnoses Supervision of high risk in third trimester Procedures US Ob Follow Up Se Veliz MD Phone: tel: fax: [facility] (All Locations) Referral ID Status Reason Start Date Expiration Date Visits Re quested Visits Authorized [id number] Closed 06/16/2021 07/16/2022 1 1 ICATIONS COORDINATOR Reason for Visit * Diagnostic Imaging (Routine) - Closed Specialty Diagnoses / Procedures Referred By Contac t Referred To Contact Diagnoses Supervision of high risk in third trimester Procedures US Ob Follow Up Se Veliz MD Phone: tel: fax: [facility] (All Locations) Referral ID Status Reason Start Date Expiration Date Visits Re quested Visits Authorized [id number] Closed 06/16/2021 07/16/2022 1 1 Encounter Details Date Type Department Care Team (Latest Contact Info) Description 06/23/2021 2:30 PM APPLICATIONS COORDINATOR - 06/23/2021 11:59 PM APPLICATIONS COORDINATOR Hospital Encounter [facility] - Ultrasound [address] [facility] [place] [address] Harika Abrams MD [address] [phone] [place], [place] [id number] Se Veliz MD [address] [facility] [address] [place] [id number] Supervision of high risk in third trimester [...] on file Legal Sex Female 11:28 PM APPLICATIONS COORDINATOR Gender Identity Not on file Sexual [...] Read Routine (OP Routine) 06/23/2021 2:31 PM APPLICATIONS COORDINATOR Supervision of high risk in third trimester documented in this encounter Results * US Ob Follow Up (06/23/2021 2:31 PM APPLICATIONS COORDINATOR) Fetus# Fetus1 VIEWPOINT Placenta Details anterior VIEWPOINT Estimated Weight 2,568 g&grams VIEWPOINT Presentation Vertex VIEWPOINT Anatomical Region Laterality Modality Abdomen N/A Ultrasound 06/23/2021 2:34 PM APPLICATIONS COORDINATOR us Se Veliz MD IMG OB US PROCEDURES Fin al Result documented in this encounter Visit Diagnoses Diagnosis Supervision of high risk in third trimester documented in this encounter Care Teams Watchmaking Teacher Relationship Specialty Start Date End Date Venecia Turner MD [address] [facility] [address] OW[address] B [facility] [address] [place] [address] PCP - General 12/11/19 07/21/21 Jarred Roy MD 2 [facility] [address] [place] [address] 01/30/19 EyersElma NP [address] [facility] [place] [address] Nurse Practitioner General Surgery 12/16/19 documented as of this encounter
--- OUTSIDE RECORDS SUMMARY | 2024-05-10 20:52 | XMS_ITS | Encounter Summary ---
Author Organization [facility] Healthcare Address [address] [place] [address] Care Team Providers Care Feeder Tender Name Role Phone Jarred Roy MD Unavailable [phone] Elma Echevarria NP Unavailable Venecia Turner MD Primary Care Provider [phone] Encounter Details Date Type Department Care Team (Late st Contact Info) Description 08/25/2021 Telephone Obstetrics and Gynecology Clinic [address] [facility] 3rd Floor [address] [place] [address] Lilian Evans Social History Tobacco [...] often do you attend chur ch or lutheran services? Never 07/21/2021 Do you belong to [...] in a custodial (including now)? No 07/21/2021 Hurlock Depression Scale Answer Date Recorded Hurlock Depression Scale Total 7 08/26/2021 The thought of harming myself has occurred to me . Never 08/26/2021 Comments No Sex and Gender Information Value Date Recorded Sex Assigned at Not on file Legal Sex Female 11:28 PM COMMISSARY OFFICER Gender Identity Not on file Sexual [...] on filedocumented in this encounter Care Teams Feeder Tender Relationship Specialty Start Date End Date Venecia Turner MD [address] [place] [address] DR LEXIE Gramajo [facility] [address] [place] [address] PCP - General 08/16/21 02/08/22 Jarred Roy MD 2 [facility] [address] [place] [address] 01/30/19 Elma Echevarria NP 2 [facility] [address] [place] [address] Nurse Practitioner General Surgery 12/16/19 documented as of this encounter
--- OUTSIDE RECORDS SUMMARY | 2024-05-10 20:52 | XMS_ITS | Encounter Summary ---
Author Organization [facility] Healthcare Address [address] [place] [address] Care Team Providers Care Squad Leader Name Role Phone Jarred Roy MD Unavailable [phone] Venecia Turner MD Primary Care Provider [phone] Elma Echevarria NP Unavailable Encounter Details Date Type Department Care Team (Late st Contact Info) Description 07/16/[address] [address] Carolyn Barrett RN Social History [...] on file Legal Sex Female 11:28 PM BILINGUAL SECRETARY Gender Identity Not on file Sexual Orientation Not on file documented as of this encounter Miscellaneous Notes * Telephone Encounter - Carolyn Barrett - 07/16/2021 9:59 AM CST RN attempting to contact pt with pre procedure education. Phone does not ring , no answer. No vm. Will send in mychart for patient to review. NGUAL SECRETARY documented in this encounter Plan of Treatment Not on file documented as of this encounter Visit Diagnoses Not on filedocumented in this encounter Care Teams Squad Leader Relationship Specialty Start Date End Date Venecia Turnre MD [address] [facility] [address] LEXIE Gramajo [facility] [address] [place] [address] PCP - General 12/11/19 07/21/21 Jarred Roy MD 2 [facility] [address] [place] [address] 01/30/19 Elma Echevarria NP [address] [facility] [address] LEXIE Gramajo [facility] [address] [place] [address] Nurse Practitioner General Surgery 12/16/19 documented as of this encounter
--- OUTSIDE RECORDS SUMMARY | 2024-05-10 20:52 | XMS_ITS | Encounter Summary ---
Author Organization [facility] Healthcare Address [address] [place] [address] Care Team Providers Care Hr Generalist Name Role Phone Jarred Roy MD Unavailable [phone] Venecia Turner MD Primary Care Provider [phone] Elma Echevarria NP Unavailable Reason for Visit * Reason Comments Routine Visit Encounter Details Date Type Department Care Team (Late st Contact Info) Description 04/19/2021 2:15 PM RETAIL SPECIAL EVENT ASSOCIATE Office Visit Obstetrics and Gynecology Clinic [address] [facility] 3rd Floor [address] [place] [address] Harika Abrams MD [address] [facility] [id number] [place] [address] Se Veliz MD [address] [address] 26 weeks gestation of (Primary Dx); Supervision [...] on file Legal Sex Female 11:28 PM RETAIL SPECIAL EVENT ASSOCIATE Gender Identity Not on file Sexual Orientation Not on file documented as of this encounter Last Filed Vital Signs Vital Sign Reading Time Taken Comments Blood Pressure 100/50 04/19/2021 2:34 PM RETAIL SPECIAL EVENT ASSOCIATE Pulse 95 04/19/2021 2:34 PM RETAIL SPECIAL EVENT ASSOCIATE Temperature 36.3 ??C (97.4 ??F) 04/19/2021 2:34 PM CS T Respiratory Rate - - Oxygen Saturation 99% 04/19/2021 2:34 PM RETAIL SPECIAL EVENT ASSOCIATE Inhaled Oxygen Concentration - - Weight 126.7 kg (279 lb 4.8 oz) 04/19/2021 2:34 PM RETAIL SPECIAL EVENT ASSOCIATE Height - - Body Mass Index 46.48 02/21/2021 9:15 PM CDT documented in this encounter Patient Instructions * Patient Instructions* Se Veliz MD - 04/19/2021 2:15 PM RETAIL SPECIAL EVENT ASSOCIATE Contact us Office hours: Monday-Monday 8:30 AM-4:30 PM Phone number: [phone] Daytime: Call us if you have questions [...] medical problem, you can call us at [phone]. Please wait until the clinic is open for non-urgent needs as this emergency line cannot help with appointments, paperwork or prescriptions. If you have an emergency and cannot wait, please call 911 or go to the [facility] Emergency room. If you are having a problem with your or are in labor you can go to the [facility] (check in near elevator on first floor) [address] [facility], 5th [place] [address]. [place] SPECIAL EVENT ASSOCIATE documented in this encounter Discharge Disposition Disposition [...] [x] Method of feeding: Plans breast [] Digital Advisor: [] Car seat: [] PP Depression Counseling [...] with Dr. Butterfield. Se Veliz MD PGY-4 (BARREL BUILDER) [phone] Cosigned by Ileana Butterfield MD at 04/25/2021 8:24 PM RETAIL SPECIAL EVENT ASSOCIATE [place] SPECIAL EVENT ASSOCIATE [place] SPECIAL EVENT ASSOCI[place] Associated attestation - Ileana Butterfield MD - 04/25/2021 8:24 PM RETAIL SPECIAL EVENT ASSOCIATE I have personally reviewed with Dr. Veliz [...] POCT URINALYSIS DIPSTICK Routine 04/19/2021 2:42 PM RETAIL SPECIAL EVENT ASSOCIATE 26 weeks gestation of documented in this encounter Results * RPR (04/19/2021 3:42 PM RETAIL SPECIAL EVENT ASSOCIATE) [facility] RPR Nonreactive Nonreactive [facility] Blood 04/19/2021 3:42 PM RETAIL SPECIAL EVENT ASSOCIATE 04/19/2021 4:33 PM RETAIL SPECIAL EVENT ASSOCIATE Se Veliz MD LAB MICROBIOLOGY - GENER AL ORDERABLES Final Result Performing Organization Address [facility] de Phone Number [facility] [place] [address] * Glucose tolerance testing 50 gram gestational screen (04/19/2021 3:42 PM RETAIL SPECIAL EVENT ASSOCIATE) [facility] GTT 50g gest screen 91 <=140 mg/dL [facility] Comment: Interpretive Data Used for suspected gestational [...] revised on 2020. Blood 04/19/2021 3:42 PM RETAIL SPECIAL EVENT ASSOCIATE 04/19/2021 4:33 PM RETAIL SPECIAL EVENT ASSOCIATE Se Veliz MD LAB BLOOD ORDERABLES Fin al Result Performing Organization Address [facility] de Phone Number [facility] Department [place] [address] * (ABNORMAL) CBC without differential (04/19/2021 3:42 PM RETAIL SPECIAL EVENT ASSOCIATE) [facility] WBC 7.2 3.8 - 9.9 K/cumm [facility] Hgb 11.7(L) 11.9 - 15.5 g/dL [facility] Hct 34.8(L) 35.6 - 45.5 % [facility] Plt 236 150 - 400 K/cumm [facility] MPV 10.0 9.1 - 12.3 fL [facility] RBC 3.72(L) 3.90 - 5.20 M/cumm [facility] MCV 93.5 81.3 - 96.4 fL [facility] MCH 31.5 27.1 - 33.3 pg [facility] MCHC 33.6 32.3 - 35.7 g/dL [facility] RDW CV 13.2 11.1 - 14.9 % [facility] RDW SD 44.7 35.7 - 48.1 fL [facility] NRBC abs 0.00 0.00 - 0.01 K/cumm [facility] Blood 04/19/2021 3:42 PM RETAIL SPECIAL EVENT ASSOCIATE 04/19/2021 4:33 PM RETAIL SPECIAL EVENT ASSOCIATE us Se Veliz MD LAB BLOOD ORDERABLES Fin al Result [facility] Department [place] [address] * POCT urinalysis dipstick (04/19/2021 2:42 PM RETAIL SPECIAL EVENT ASSOCIATE) [facility] Glucose, ur, POC Negative Negative mg/dL Bilirubin, ur, POC Negative Negative, Small, Moderate, Large Ketones, ur, POC Negative Negative Blood, ur, POC Negative Negative Protein, ur, POC Negative Negative Nitrite, ur, POC Negative Negative Leukocytes, ur, POC Negative Negative Lot Number [id number] Urine 04/19/2021 2:42 PM RETAIL SPECIAL EVENT ASSOCIATE Se Veliz MD POINT OF CARE TEST ORDER HCILO Final Result documented in this encounter Visit Diagnoses Diagnosis 26 weeks gestation of - Primary Supervision of other normal , antepartum Rh negative state in antepartum period Family history of neural tube defect Maternal obesity affecting , antepartum documented in this encounter Care Teams Hr Generalist Relationship Specialty Start Date End Date Venecia Turner MD [address] [facility] [address] LEXIE Gramajo [facility] [address] [place] [address] PCP - General 12/11/19 07/21/21 Jarred Roy MD 2 [facility] [address] [place] [address] 01/30/19 Elma Echevarria NP [address] [facility] [address] LEXIE Gramajo [facility] [address] [place] [address] Nurse Practitioner General Surgery 12/16/19 documented as of this encounter
--- OUTSIDE RECORDS SUMMARY | 2024-05-10 20:52 | XMS_ITS | Encounter Summary ---
Author Organization [facility] Healthcare Address [address] [place] [address] Care Team Providers Care Blacksmith Apprentice Name Role Phone Jarred Roy MD Unavailable [phone] Venecia Turner MD Primary Care Provider [phone] Elma Echevarria NP Unavailable Encounter Details Date Type Department Care Team (Late st Contact Info) Description 03/20/2020 9:35 AM GENERAL ACCOUNTING CLERK Lab [facility] [address] [place] [address] Maliha Baptiste MD [address] [place] [address] [place] [address] Laura Connor NP [address] [place] [address] DR LEXIE Gramajo [address] [address] Discharge Disposition: Discharge to home or self care Social History Tobacco Use Types Packs/Day Years Used Date Smoking Tobacco: Never Smokeless Tobacco: Never Alcohol Use Standard Drinks/Week Comments No 0 (1 standard drink = 0.6 oz pur e alcohol) Comments Unknown Sex and Gender Information Value Date Recorded Sex Assigned at Not on file Legal Sex Female 11:28 PM GENERAL ACCOUNTING CLERK Gender Identity Not on file Sexual Orientation Not on file documented as of this encounter Discharge Disposition Disposition Code Departure Means Destination Discharge to home or self care documented in this encounter Plan of Treatment Not on file documented as of this encounter Procedures Procedure Name Priority Date/Time Associated Diagnosis Comments EGFR Routine 03/20/2020 9:35 AM GENERAL ACCOUNTING CLERK DIFFERENTIAL AUTO Routine 03/20/2020 9:3 5 AM GENERAL ACCOUNTING CLERK CBC WITH AUTO DIFFERENTIAL Routine 03/20/2020 9:35 AM GENERAL ACCOUNTING CLERK TSH Routine 03/20/2020 9:35 AM GENERAL ACCOUNTING CLERK T4, FREE Routine 03/20/2020 9:35 AM GENERAL ACCOUNTING CLERK HEMOGLOBIN A1C Routine 03/20/2020 9:35 AM GENERAL ACCOUNTING CLERK COMPREHENSIVE METABOLIC PANEL Routine 03/20/2020 9:35 AM GENERAL ACCOUNTING CLERK documented in this encounter Results * eGFR (03/20/2020 9:35 AM GENERAL ACCOUNTING CLERK) eGFR 133 mL/min/1.7 3 m2 [facility] ([place]) Comment: Interpretive Data Reference Interval Normal ?>/= 90 mL/min/1.73m2 Mildly decreased* ? 60 - 89 mL/min/1.73m2 Mildly to moderately decreased ?45 - 59 mL/min/1.73m2 Moderately to severely decreased ??30 - 44 mL/min/1.73m2 Severely decreased ?15 - 29 mL/min/1.73m2 Kidney Failure ?< 15 ??mL/min/1.73m2 *Relative to young adult level If -[place] multiply value by 1.16. Estimated glomerular filtration [...] 2015. Blood specimen (specimen) 03/20/2020 9:35 AM GENERAL ACCOUNTING CLERK 03/20/2020 10:37 AM GENERAL ACCOUNTING CLERK us Laura Connor NP LAB BLOOD ORDERABLES Dilcia miller Result [facility] 1 [facility] Department [place] [address] * Differential, auto (03/20/2020 9:35 AM GENERAL ACCOUNTING CLERK) Neutrophil abs 2.8 1.7 - 6.5 K/cumm [...] 2017. Blood specimen (specimen) 03/20/2020 9:35 AM GENERAL ACCOUNTING CLERK 03/20/2020 10:37 AM GENERAL ACCOUNTING CLERK Laura Connor [facility] LAB BLOOD ORDERABLES Dilcia l Result Performing Organization Address City/[facility]/ZIP Co de Phone Number [facility] 1 [facility] [place] [address] * T4, free (03/20/2020 9:35 AM GENERAL ACCOUNTING CLERK) Free T4 1.00 0.90 - 1.70 ng/dL [facility]) Blood specimen (specimen) 03/20/2020 9:35 AM GENERAL ACCOUNTING CLERK 03/20/2020 10:37 AM GENERAL ACCOUNTING CLERK Laura Connor [facility] LAB BLOOD ORDERABLES Dilcia l Result [facility] ([place]) 1 [facility] [place] [address] * TSH (03/20/2020 9:35 AM GENERAL ACCOUNTING CLERK) Thyroid Stimulating Hormone 1.17 0.30 - 4.20 mcIUnit/mL [facility]) Blood specimen (specimen) 03/20/2020 9:35 AM GENERAL ACCOUNTING CLERK 03/20/2020 10:37 AM GENERAL ACCOUNTING CLERK Laura Connor [facility] LAB BLOOD ORDERABLES Dilcia l Result Performing Organization Address City/[facility]/ZIP Co de Phone Number [facility] ([place]) 1 [facility] [place] [address] * Hemoglobin A1c (03/20/2020 9:35 AM GENERAL ACCOUNTING CLERK) Hgb A1C 4.7 4.0 - 5.6 % [facility] ([place]) Estimated Average Glucose 88 mg/dL [facility] ([place]) Comment: The ADA recommends reporting an estimated Average Glucose (eAG) with all Hemoglobin A1c results using the equation derived from a study of 507 normal and diabetic adults. ??Minority populations were underrepresented and children were not included. ?? (Diabetes Care 31:7434-7883, 2008). ??The eAG is not equivalent to a fasting glucose. Blood specimen (specimen) 03/20/2020 9:35 AM GENERAL ACCOUNTING CLERK 03/20/2020 10:37 AM GENERAL ACCOUNTING CLERK Laura Connor [facility] LAB BLOOD ORDERABLES Dilcia l Result Performing Organization Address City/[facility] Co de Phone Number [facility] ([place] 1 [facility] [place] [address] * (ABNORMAL) Comprehensive metabolic panel (03/20/2020 9:35 AM GENERAL ACCOUNTING CLERK) Sodium 139 135 - 145 mmol/L [facility] ([place]) Potassium, pl 4.6 3.3 - 4.9 mmol/L [facility]) Chloride 104 97 - 110 mmol/L [facility]) CO2 26 22 - 32 mmol/L [facility]) Anion gap 9 2 - 15 mmol/L [facility]) BUN 8 8 - 25 mg/dL [facility]) Creatinine 0.57(L) 0.60 - 1.10 mg/dL [facility] ([place]) Glucose 89 70 - 199 mg/dL [facility] ([place]) Comment: Interpretive Data Fasting glucose >/= [...] pecimen Blood specimen (specimen) 03/20/2020 9:35 AM GENERAL ACCOUNTING CLERK 03/20/2020 10:37 AM GENERAL ACCOUNTING CLERK Laura Connor [facility] LAB BLOOD ORDERABLES Dilcia miller Result [facility] ([place] 1 [facility] [place] [address] * CBC with auto differential (03/20/2020 9:35 AM GENERAL ACCOUNTING CLERK) WBC 5.1 3.8 - 9.9 K/cumm [facility] [...] RDW CV 12.9 11.1 - 14.9 % [facility] ([place]) RDW SD 44.1 35.7 - 48.1 fL [facility] ([place]) NRBC abs 0.00 0.00 - 0.01 K/cumm [facility] ([place]) Blood specimen (specimen) 03/20/2020 9:35 AM GENERAL ACCOUNTING CLERK 03/20/2020 10:37 AM GENERAL ACCOUNTING CLERK Narrative [facility] ([place]) - 03/20/2020 10:43 AM GENERAL ACCOUNTING CLERK fax results to [phone] Laura Connor [facility] LAB BLOOD ORDERABLES Dilcia l Result [facility] ([place] 1 [facility] [place] [address] documented in this encounter Visit Diagnoses Not on filedocumented in this encounter Care Teams Blacksmith Apprentice Relationship Specialty Start Date End Date Venecia Turner MD [address] [place] [address] DR LEXIE Gramajo [facility] [address] [place] [address] PCP - General 12/11/19 07/21/21 Jarred Roy MD 2 [facility] [address] [place] [address] 01/30/19 Elma Echevarria NP [address] [place] [address] DR LEXIE Gramajo [facility] [address] [place] [address] Nurse Practitioner General Surgery 12/16/19 documented as of this encounter
--- OUTSIDE RECORDS SUMMARY | 2024-05-10 20:52 | XMS_ITS | Encounter Summary ---
Author Organization [facility] Healthcare Address [address] [place] [address] Care Team Providers Care Crosscutter Rolled Glass Name Role Phone Jarred Roy MD Unavailable [phone] Elma Echevarria NP Unavailable No, Physician Primary Care Provider [phone] Reason for Visit * Reason Onset Date Comments Medical Question/Miscellaneous 07/22/2021 Encounter Details Date Type Department Care Team (Late st Contact Info) Description 07/22/2021 Telephone [facility] 1 [place] [address] Carolyn Barrett RN Medical Question/Miscellaneous [...] in a prison (including now)? No 07/21/2021 Comments No Sex and Gender Information Value Date Recorded Sex Assigned at Not on file Legal Sex Female 11:28 PM ENVIRONMENTAL JOURNALIST Gender Identity Not on file Sexual Orientation [...] on filedocumented in this encounter Care Teams Crosscutter Rolled Glass Relationship Specialty Start Date End Date No, Physician PCP - General 07/22/21 08/15/21 Jarred Roy MD 2 [facility] [address] [address] 01/30/19 Elma Echevarria NP 2 [facility] [address] [address] Nurse Practitioner General Surgery 12/16/19 documented as of this encounter
--- OUTSIDE RECORDS SUMMARY | 2024-05-10 20:52 | XMS_ITS | Encounter Summary ---
Author Organization [facility] Healthcare Address [address] [place] [address] Care Team Providers Care Basting Puller Name Role Phone Jarred Roy MD Unavailable [phone] Venecia Turner MD Primary Care Provider [phone] Elma Echevarria NP Unavailable Encounter Details Date Type Department Care Team (Late st Contact Info) Description 06/30/2021 Orders Only Obstetrics and Gynecology Clinic [address] [facility] Health 3rd Floor [address] [place] [address] Se Veliz MD [address] [address] Supervision of other normal , [...] file Legal Sex Female 11:28 PM SENIOR NATIONAL ACCOUNT MANAGER Gender Identity Not on file Sexual Orientation Not on file documented as of this encounter Plan of Treatment Not on file documented as of this encounter Procedures Procedure Name Priority Date/Time Associated Diagnosis Comments GROUP B STREPTOCOCCUS CULTURE Routine 06/30/2021 4:40 PM SENIOR NATIONAL ACCOUNT MANAGER Supervision of other normal , antepartum documented in this encounter Results * (ABNORMAL) Group B streptococcal culture Vaginal/Rectal (06/30/2021 4:40 PM SENIOR NATIONAL ACCOUNT MANAGER) Report Final Report: Streptococcus agalactiae (Group [...] allergic patients, please contact the laboratory at [phone] to request susceptibility testing * ??* ??* ??* ??* ??* ??* ??* ??* ??* ??* ??* ??* ??* ??* ??* ??* ??* ??* ??* (.) [facility] Organism STREPTOCOCCUS AGALACTIAE (GROUP B STREPTOCOCCI) [facility] Vaginal/Rectal 06/30/2021 4: 40 PM SENIOR NATIONAL ACCOUNT MANAGER 06/30/2021 7:04 PM SENIOR NATIONAL ACCOUNT MANAGER Narrative [facility] - 07/02/2021 1:36 PM SENIOR NATIONAL ACCOUNT MANAGER Testing performed by [facility] Microbiology Laboratory ([phone]). us Se Veliz MD LAB MICROBIOLOGY - GENER AL ORDERABLES Final Result [facility] One [facility] Department [place] [address] documented in this encounter Visit Diagnoses Diagnosis Supervision of other normal , antepartum documented in this encounter Care Teams Basting Puller Relationship Specialty Start Date End Date Venecia Turner MD [address] [place] [address] DR LEXIE Gramajo [facility] [address] [place] [address] PCP - General 12/11/19 07/21/21 Jarred Roy MD 2 [facility] [address] [place] [address] 01/30/19 EyeElma charles NP [address] [facility] [address] LEXIE Gramajo [facility] [address] [place] [address] Nurse Practitioner General Surgery 12/16/19 documented as of this encounter
--- OUTSIDE RECORDS SUMMARY | 2024-05-10 20:52 | XMS_ITS | Encounter Summary ---
Author Organization [facility] Medical [facility] Address [address] [facility] [address] [address] Care Team Providers Care Urology Teacher Name Role Phone Jarred Roy MD Unavailable [phone] EyeElma charles NP Unavailable SpartaLaura Thornton NP Primary Care Provider [phone] Reason for Visit * Reason Comments Migraine Encounter Details Date Type Department Care Team (Late st Contact Info) Description 05/23/2022 9:15 AM MEDICAL ASSISTANT Office Visit [facility] [address] [facility] [address] [place] [address] Tonya Dutton, MONALISA [address] [facility] [address] [place] [address] Chronic migraine without aura without status migrainosus, not intractable (Primary Dx); Morbid obesity with body mass index (BMI) of 40.0 to 49.9 ([facility]) Social History Tobacco Use Types Packs/Day Years [...] in a usp (including now)? No 07/21/2021 [place] Depression Scale Answer Date Recorded [place] Depression Scale Total 6 09/03/2021 The thought of harming myself has occurred to me . Never 09/03/2021 Comments No Sex and Gender Information Value Date Recorded Sex Assigned at Not on file Legal Sex Female 11:28 PM MEDICAL ASSISTANT Gender Identity Not on file Sexual Orientation Not on file documented as of this encounter Last Filed Vital Signs Vital Sign Reading Time Taken Comments Blood Pressure 116/76 05/23/2022 9:19 AM MEDICAL ASSISTANT Pulse 79 05/23/2022 9:19 AM MEDICAL ASSISTANT Temperature - - Respiratory Rate 18 05/23/2022 9:19 AM MEDICAL ASSISTANT Oxygen Saturation 97% 05/23/2022 9:19 AM MEDICAL ASSISTANT Inhaled Oxygen Concentration - - Weight 132 kg (291 lb) 05/23/2022 9:19 AM MEDICAL ASSISTANT Height 165.1 cm (5' 5 ) 05/23/2022 9:19 AM MEDICAL ASSISTANT Body Mass Index 48.42 05/23/2022 9:19 AM MEDICAL ASSISTANT documented in this encounter Ordered Prescriptions Prescription [...] image. Will follow up in 1 year. CAL ASSISTANT CAL ASSISTANT documented in this encounter Plan of Treatment [...] documented as of this encounter Care Teams Urology Teacher Relationship Specialty Start Date End Date Laura Madrid NP [address] [place] [address] DR J[address] [place] [address] PCP - General Nurse Practitioner 02/09/22 12/02/23 Jarred Roy MD 2 [facility] [address] [place] [address] 01/30/19 Elma Echevarria NP 2 [facility] [address] [address] Nurse Practitioner General Surgery 12/16/19 documented as of this encounter
--- OUTSIDE RECORDS SUMMARY | 2024-05-10 20:52 | XMS_ITS | Encounter Summary ---
Author Organization [facility] Healthcare Address [address] [place] [address] Care Team Providers Care Former Hand Name Role Phone Jarred Roy MD Unavailable [phone] Venecia Turner MD Primary Care Provider [phone] Elma Echevarria NP Unavailable Reason for Visit * Reason Comments Routine Visit Encounter Details Date Type Department Care Team (Late st Contact Info) Description 06/30/2021 12:30 PM MEDICAL CODING INSTRUCTOR Office Visit Obstetrics and Gynecology Clinic [address] [facility] 3rd Floor [address] [place] [address] Harika Abrams MD [address] [facility] [place] [address] [id number] [place] [address] Se Veliz MD [address] [address] Supervision of other normal , antepartum (Primary [...] file Legal Sex Female 11:28 PM MEDICAL CODING INSTRUCTOR Gender Identity Not on file Sexual Orientation Not on file documented as of this encounter Last Filed Vital Signs Vital Sign Reading Time Taken Comments Blood Pressure 129/81 06/30/2021 12:27 PM MEDICAL CODING INSTRUCTOR Pulse 83 06/30/2021 12:27 PM MEDICAL CODING INSTRUCTOR Temperature 36.5 ??C (97.7 ??F) 06/30/2021 1 2:27 PM MEDICAL CODING INSTRUCTOR Respiratory Rate - - Oxygen Saturation 99% 06/30/2021 12: 27 PM MEDICAL CODING INSTRUCTOR Inhaled Oxygen Concentration - - Weight 133.3 kg (293 lb 12.8 oz) 2021 12:27 PM MEDICAL CODING INSTRUCTOR Height - - Body Mass Index 48.89 06/22/2021 12:59 PM MEDICAL CODING INSTRUCTOR documented in this encounter Patient Instructions * Patient Instructions* Se Veliz MD - 06/30/2021 12:30 PM MEDICAL CODING INSTRUCTOR Contact us Office hours: Monday-Monday 8:30 AM-4:30 PM Phone number: [phone] Daytime: Call us if you have questions [...] medical problem, you can call us at [phone]. Please wait until the clinic is open for non-urgent needs as this emergency line cannot help with appointments, paperwork or prescriptions. If you have an emergency and cannot wait, please call 911 or go to the [facility] Emergency room. If you are having a problem with your or are in labor you can go to the [facility] (check in near elevator on first floor) [address] [facility], 5th [place] [address]. CAL CODING INSTRUCTOR documented in this encounter Discharge Disposition Disposition Code Departure Means Destination Discharge to home or self care documented in this encounter Progress Notes * Se Veliz MD - 06/30/2021 12:30 PM CST OB RETURN VISIT 06/30/2021 Subjective: Mary Licona is a 21 y.o. at 36w2d who presents for her return OB visit. She has no ob complaints or concerns. Picked a passenger attendant, has not confirmed control plan yet. She [...] [x] Method of feeding: Plans breast [] Physician Internist: [] Car seat: [] PP Depression Counseling [x] Attg visits (09/08) Relevant Orders POCT urinalysis dipstick (Completed) RTC [address] Zavala. Se Veliz MD PGY-4 (.NET PROGRAMMER) [phone] Cosigned by Kerry Zavala DO at 07/04/2021 9:34 AM MEDICAL CODING INSTRUCTOR CAL CODING INSTRUCTOR CAL CODING INSTRUCTOR Associated attestation - Kerry Zavala DO - 07/04/2021 9:34 AM MEDICAL CODING INSTRUCTOR I agree with the findings and plan [...] POCT URINALYSIS DIPSTICK Routine 06/30/2021 12:33 PM MEDICAL CODING INSTRUCTOR Supervision of other normal , antepartum documented in this encounter Results * (ABNORMAL) Group B streptococcal culture Vaginal/Rectal (06/30/2021 4:40 PM MEDICAL CODING INSTRUCTOR) Report Final Report: Streptococcus agalactiae (Group B [...] allergic patients, please contact the laboratory at [phone] to request susceptibility testing * ??* ??* ??* ??* ??* ??* ??* ??* ??* ??* ??* ??* ??* ??* ??* ??* ??* ??* ??* (.) [facility] Organism STREPTOCOCCUS AGALACTIAE (GROUP B STREPTOCOCCI) [facility] Vaginal/Rectal 06/30/2021 4: 40 PM MEDICAL CODING INSTRUCTOR 06/30/2021 7:04 PM MEDICAL CODING INSTRUCTOR Narrative [facility] - 07/02/2021 1:36 PM MEDICAL CODING INSTRUCTOR Testing performed by [facility] Microbiology Laboratory ([phone]). us Se Veliz MD LAB MICROBIOLOGY - GENER AL ORDERABLES Final Result [facility] Department [place] [address] * POCT urinalysis dipstick (06/30/2021 12:33 PM MEDICAL CODING INSTRUCTOR) Glucose, ur, POC Negative Negative mg/dL Ketones, ur, POC Negative Negative Blood, ur, POC Negative Negative Protein, ur, POC Negative Negative Nitrite, ur, POC Negative Negative Leukocytes, ur, POC Negative Negative Lot Number [id number] Urine 06/30/2021 12:3 3 PM MEDICAL CODING INSTRUCTOR us Se Veliz MD POINT OF CARE TEST ORDER CHILO Final Result documented in this encounter Visit Diagnoses Diagnosis Supervision of other normal , antepartum- Primary Maternal obesity affecting , antepartum Rh negative state in antepartum period Supervision of other normal , antepartum documented in this encounter Care Teams Former Hand Relationship Specialty Start Date End Date Venecia Turner MD [address] [facility] [address] LEXIE Gramajo [facility] [address] [place] [address] PCP - General 12/11/19 07/21/21 Jarred Roy MD 2 [facility] [address] [place] [address] 01/30/19 Elma Echevarria NP [address] [facility] [address] LEXIE Gramajo [facility] [address] [place] [address] Nurse Practitioner General Surgery 12/16/19 documented as of this encounter
--- OUTSIDE RECORDS SUMMARY | 2024-05-10 20:52 | XMS_ITS | Encounter Summary ---
Author Organization [facility] Healthcare Address [address] [place] [address] Care Team Providers Care Abstracter Name Role Phone Jarred Roy MD Unavailable [phone] Venecia Turner MD Primary Care Provider [phone] Elma Echevarria NP Unavailable Reason for Visit * Reason Comments Routine Visit Encounter Details Date Type Department Care Team (Late st Contact Info) Description 02/26/2021 10:45 AM CDT Office Visit Obstetrics and Gynecology Clinic [address] [facility] 3rd Floor [address] [place] [address] Harika Abrams MD [address] [facility] [address] [id number] [place] [address] Se Veliz MD [address] [address] Maternal obesity affecting , antepartum (Primary Dx); [...] file Legal Sex Female 11:28 PM PAPER REELER Gender Identity Not on file Sexual Orientation [...] PO. She has discussed with her primary LEGAL MANAGER and at an urgent care visit, has [...] counseled 02/09/21 Second Trimester: [] Anatomy ultrasound: [facility] 03/26 at 22w per scheduling team [] Placenta Location: [] CBC [] 1hr gtt at 24-28wks: [] Flu Shot (Feb-Apr) [] Tdap (27-36wks) [] Rhogam (if Rh neg): indicated at 28w Third Trimester: [] CBC/HIV/RPR/T&S [] GBS [] GC/CT (if indicated) Counseling [] Method of delivery: [] Method of contraception: [] Method of feeding: [] Decoration Checker: [] Car seat: [] PP Depression Counseling [...] with Dr. Rosenthal. Se Veliz MD PGY-4 (SUPERVISOR NETWORK CONTROL OPERATORS) [phone] Cosigned by Karine Rosenthal MD at 03/01/2021 [...] Leukocytes, ur, POC Negative Negative Lot Number [id number] Urine 02/26/2021 11:3 2 AM CDT Se [...] Date End Date Venecia Turner MD [address] [facility] [address] [address] PCP - General 12/11/19 07/21/21 Jarred Roy MD 2 [facility] [address] [place] [address] 01/30/19 EyeElma charles NP [address] [facility] [address] LEXIE Gramajo [facility] [address] [place] [address] Nurse Practitioner General Surgery 12/16/19 documented as of this encounter
--- OUTSIDE RECORDS SUMMARY | 2024-05-10 20:53 | XMS_ITS | Encounter Summary ---
Author Organization [facility] Address [address] [place] [address] Care Team Providers Care Photographic Laboratory Supervisor Name Role Phone Jarred Roy MD Unavailable [phone] No, Physician Primary Care Provider [phone] Reason for Referral * Diagnostic Imaging (Routine) - Closed Specialty Diagnoses / Procedures Referred By Loyd medrano Referred To Contact Radiology Diagnoses Acute pain of right foot Closed nondisplaced fracture of medial cuneiform of right foot, initial encounter Procedures MRI Foot Right WO Contrast Gina Klein PA Phone: tel: fax: [address] [address] Referral ID Status Reason Start Date Expiration Date Visits Re quested Visits Authorized [id number] Closed 06/04/2019 07/19/2019 1 1 NICAL SALES REPRESENTATIVES Reason for Visit * Diagnostic Imaging (Routine) - Closed Specialty Diagnoses / Procedures Referred By Loyd medrano Referred To Contact Radiology Diagnoses Acute pain of right foot Closed nondisplaced fracture of medial cuneiform of right foot, initial encounter Procedures MRI Foot Right WO Contrast Gina Klein PA Phone: tel: fax: [address] [address] Referral ID Status Reason Start Date Expiration Date Visits Re quested Visits Authorized [id number] Closed 06/04/2019 07/19/2019 1 1 Encounter Details Date Type Department Care Team (Latest Contact Info) Description 06/07/2019 5:41 PM TECHNICAL SALES REPRESENTATIVES - 06/07/2019 11:59 PM TECHNICAL SALES REPRESENTATIVES Hospital Encounter [facility] Center [address] [place] [address] David Feliz MD [address] [facility] [address] [place] [address] Gina Klein PA [address] [facility] [address] [place] [address] Acute pain of right foot; Closed nondisplaced [...] on file Legal Sex Female 11:28 PM TECHNICAL SALES REPRESENTATIVES Gender Identity Not on file Sexual Orientation [...] office with any further questions or concerns. NICAL SALES REPRESENTATIVES documented in this encounter Plan of Treatment Not on file documented as of this encounter Procedures Procedure Name Priority Date/Time Associated Diagnosis Comments MRI FOOT RIGHT WO CONTRAST Schedule Routine, Read Routine (OP Routine) 06/07/2019 6:29 PM TECHNICAL SALES REPRESENTATIVES Acute pain of right foot Closed nondisplaced fracture of medial cuneiform of right foot, initial encounter documented in this encounter Results * MRI Foot Right WO Contrast (06/07/2019 6:29 PM TECHNICAL SALES REPRESENTATIVES) Anatomical Region Laterality Modality Lower Extremities Right Magnetic Reson ance 06/07/2019 5:50 PM TECHNICAL SALES REPRESENTATIVES Narrative 06/11/2019 10:06 AM TECHNICAL SALES REPRESENTATIVES [facility] Imaging Center ?Imaging Result Name: JAMAL LICONA ? Ordering Phys: GINA KLEIN Age: 19 ?Date of : 2000 ? Accession Number: [id number] Date of Service: 06/07/2019 ??Gender: F EXAM [...] AM T: ??06/10/2019 9:01 AM Report ID: [id number] Reading Location: ??[id number] Procedure Note Mook Arias MD - 06/11/2019 [facility] Imaging Center Imaging Result Name: JAMAL LICONA Brina Ordering Phys: GINA KLEIN Age: 19 Date of : 2000 Accession Number: [id number] Date of Service: 06/07/2019 Gender: F EXAM [...] Mook Arias M.D. MJ: JASON Report ID: [id number] Reading Location: [id number] Gina DIXON IMG MRI PROCEDURES Final Result documented in this encounter Visit Diagnoses Diagnosis Acute pain of right foot Closed nondisplaced fracture of medial cuneiform of right foot, initial encounter documented in this encounter Care Teams Photographic Laboratory Supervisor Relationship Specialty Start Date End Date No, Physician PCP - General 05/26/19 12/10/19 Jarred Roy MD [address] [address] 01/30/19 documented as of this encounter
--- OUTSIDE RECORDS SUMMARY | 2024-05-10 20:53 | XMS_ITS | Encounter Summary ---
Author Organization [facility] Address [address] [facility] [address] [place] [address] Care Team Providers Care Office Clin Asst Name Role Phone Jarred Roy MD Unavailable [phone] Venecia Turner MD Primary Care Provider [phone] Elma Echevarria NP Unavailable Encounter Details Date Type Department Care Team (Late st Contact Info) Description 12/17/2019 Telephone [facility] [address] [facility] [address] [place] [address] Rehana Casarez Social History Tobacco Use Types Packs/Day Years Used Date Smoking Tobacco: Never Smokeless Tobacco: Never Alcohol Use Standard Drinks/Week Comments No 0 (1 standard drink = 0.6 oz pur e alcohol) Comments No Sex and Gender Information Value Date Recorded Sex Assigned at Not on file Legal Sex Female 11:28 PM STITCHDOWN THREAD LASTER Gender Identity Not on file Sexual Orientation [...] on filedocumented in this encounter Care Teams Office Clin Asst Relationship Specialty Start Date End Date Venecia Turner MD [address] [place] [address] DR LEXIE Gramajo [facility] [address] [place] [address] PCP - General 12/11/19 07/21/21 Jarred Roy MD 2 [facility] [address] [place] [address] 01/30/19 EyeElma charles NP [address] [place] [address] DR LEXIE Gramajo [facility] [address] [place] [address] Nurse Practitioner General Surgery 12/16/19 documented as of this encounter
--- OUTSIDE RECORDS SUMMARY | 2024-05-10 20:53 | XMS_ITS | Encounter Summary ---
Author Organization [facility] Facility Care Team Providers Care Tape Edge Machine Operator Name Role Phone Jarred Roy MD Unavailable [phone] No, Physician Primary Care Provider [phone] Encounter Details Date Type Department Care Team [...] on file Legal Sex Female 11:28 PM COOK PICKLED MEAT Gender Identity Not on file Sexual Orientation Not on file documented as of this encounter Plan of Treatment Not on file documented as of this encounter Visit Diagnoses Not on filedocumented in this encounter Care Teams Tape Edge Machine Operator Relationship Specialty Start Date End Date No, Physician PCP - General 05/26/19 12/10/19 Jarred Roy MD [address] [address] 01/30/19 documented as of this encounter
--- OUTSIDE RECORDS SUMMARY | 2024-05-10 20:53 | XMS_ITS | Encounter Summary ---
Author Organization [facility] Healthcare Address [address] [place] [address] Care Team Providers Care Teacher Adult Education Name Role Phone Jarred Roy MD Unavailable [phone] Venecia Turner MD Primary Care Provider [phone] Reason for Visit * Reason Comments Abscess Encounter Details Date Type Department Care Team (Late st Contact Info) Description 12/15/2019 9:50 AM CDT - 12/15/2019 11:00 AM CDT Surgery [facility] Operating Room [address] [place] [address] Bryson Clark MD [address] [place] [id number] INCISION AND DRAINAGE - ABSCESS Surgery Details Date/Time Status Location OR Service Patient Class Case Class Case Type Trauma Case? 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) Hospital Course: For full details of presentation including detailed history, past medical, surgical, social, family history and detailed ROS, as well as detailed exam and labs at time of presentation, please see the History and Physical. 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, bed this surrounding erythema and purulent drainage [...] Soft Tissue Mass Result Date: 12/14/2019 Narrative: [facility] Imaging Result Name: LICONA JAMAL Gonsalves OrderingPhys: MIRANDA CARMICHAEL Age: 19 Date of : 2000 Accession Number: [id number] Date of Service: 12/14/2019 Gender: F EXAM [...] signed by Cassandra Arguelles AB: Report ID: [id number] Reading Location: [place] [address] Medications: Your medication list CHANGE how you [...] Surgery, Nurse Practitioner Relationship: Nurse Practitioner [address] [place] [address] Next Steps: Follow up Instructions: Please keep follow-up appointment scheduled on 12/18/2019 at 2:15 p.m. Questions: Instructions for follow-up (appointment date and time): Please keep follow-up appointment scheduledon 12/18/2019 at 2:15 p.m. To provider: ELMA ECHEVARRIA Total time spent on day of discharge 35 minutes Signed: David Mosquera Jr., MD Internal Medicine - Hospitalist [facility] - Adult Hospitalist Service 12/16/2019 2:33 [...] questions or concerns following discharge, please call [facility] at [phone]. 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[place]) Potential Discharge Needs Anticipated discharge level of [...] Joshua MD - 12/15/2019 10:02 AM CDT [facility] Hospitalist Service Progress Note Patient [...] Soft Tissue Mass Result Date: 12/14/2019 Narrative: [facility] Imaging Result Name: JAMAL LICONA Brina OrderingPhys: MIRANDA CARMICHAEL Age: 19 Date of : 2000 Accession Number: [id number] Date of Service: 12/14/2019 Gender: F EXAM [...] signed by Cassandra Arguelles AB: Report ID: [id number] Reading Location: [id number] Pertinent Labs: I have reviewed the pertinent [...] Merrill Joshua MD Internal Medicine - Hospitalist [facility] - Adult Hospitalist Service Voice recognition software NextDigest Direct was used dictate and transcribe this document. Contractor General Building variances may occur. Despite proofreading, typographical errors may occur 12/15/2019 10:02 AM documented in this encounter H&P Notes * Nadeen Joshua MD - 12/14/2019 4:55 PM CDT [facility] Adult Hospitalist Service History and Physical Patient Name: Jamal Licona Patient : 2000 Age/Sex: 19 y.o. female Room/Bed: [place] [address]/[id number] Admission Date/Time: 12/14/2019 10:23 AM Date: 12/14/2019 Time: 5:03 PM Primary Care Physician: Venecia Turner MD PCP Office Location: [address] [place] [address] PCP Chief Complaint: Pain and swelling over [...] Soft Tissue Mass Result Date: 12/14/2019 Narrative: [facility] Imaging Result Name: JAMAL LICONA OrderingPhys: MIRANDA CARMICHAEL Age: 19 Date of : 2000 Accession Number: [id number] Date of Service: 12/14/2019 Gender: F EXAM [...] signed by Cassandra Arguelles AB: Report ID: [id number] Reading Location: [id number] ASSESSMENT AND PLAN: Patient Active Problem List [...] Nadeen Joshua MD Internal Medicine - Hospitalist [facility] - Adult Hospitalist Service Voice recognition software NextDigest Direct was used dictate and transcribe this document. Contractor General Building variances may occur. Despite proofreading, typographical errors [...] file Gets together: Not on file Attends presybeterian service: Not on file Active member of [...] chart review, the patient presented to the [facility] ED on 12/10/2019 for evaluation of the abscess and was prescribed Keflex antibiotics and Bactroban cream.Again per chart review, the patient returned to [facility] ED on 12/11/2019 and had an IND [...] History provided by: Patient and medical records motorcycle subassembler used: No Patient History Patient Active Problem [...] by Cassandra Arguelles AB: AB Report ID: [id number] Reading Location: [id number] [facility] ED Course as of Dec 13 1414 [...] OF : 2000 SURGEON: Bryson Clark MD SUBEDITOR:Corrections Caseworker: Brianda Middleton RN Scrub: Tana Lane RN ENVIRONMENTAL ASSOCIATE: Joaquina Berkowitz RN DATE OF SURGERY: 12/15/2019 [...] ??mL/min/1.73m2 *Relative to young adult level If -Citizen Of [place] multiply value by 1.16. Estimated glomerular filtration [...] BLOOD ORDERA BLES Final Result [facility] ([place]) 1 [facility] Department of Laboratories [place], [place] [id number] * Differential, auto (12/16/2019 5:13 AM CDT) [...] BLES Final Result [facility] ([place]) 1 [facility] [place] [address] * (ABNORMAL) Basic metabolic panel (12/16/2019 5:13 AM CDT) Sodium 137 135 - 145 mmol/L [facility] ([place]) Potassium, pl 4.8 3.3 - [...] ([place]) Glucose 97 70 - 199 mg/dL [facility] ([place]) Comment: Interpretive Data Fasting glucose [...] 2017. Calcium 9.2 8.5 - 10.3 mg/dL [facility] ([place]) Blood specimen (specimen) 12/16/2019 5:13 AM CDT 12/16/2019 5:39 AM CDT us Bryson Clark MD LAB BLOOD ORDERA BLES Final Result [facility] ([place]) 1 [facility] [place] [address] * (ABNORMAL) CBC with auto differential (12/16/2019 [...] BLES Final Result [facility] ([place]) 1 [facility] [place] [address] * (ABNORMAL) Aerobic and anaerobic culture and gram stain Abscess Abdominal (12/15/2019 10:19 AM CDT) Direct Specimen Exam Stain: Few polymorphonuclear leukocytes seen. Few Gram Positive Cocci [facility] ([place]) Comment:Testing performed by : [facility], [address] [place] [address], [place]., [address] Report Final Report: Abundant Staphylococcus aureus Methicillin susceptible (MSSA) by penicillin binding protein 2a (PBP2a) testing. (.) [facility] ([place]) Comment:Testing performed by : [facility], [address] [place] [address], [place]., [address] Organism STAPHYLOCOCCUS AUREUS [facility] ([place]) Abscess (Abdominal) 12/15/2019 10:19 AM CDT 12/15/2019 12:44 PM CDT Narrative [facility] ([place]) - 12/18/2019 10:16 AM CDT Mons pubis abscess Testing performed by [facility] ([phone]) Specimens submitted from normally sterile body sites [...] ORDERABLES Final Result [facility] ([place]) 1 [facility] Department [place] [address] * COVID-19 Coronavirus RNA Nasopharyngeal (12/14/2019 12:00 PM CDT) COVID-19 RNA Not Detected [facility] ([place]) Comment: Interpretive Data Testing performed at [facility] Molecular Infectious Disease Laboratory. The 2019-Novel Coronavirus [...] last revised on 2019. Testing performed by: [facility], [address] [place]., [address] Nasopharyngeal 12/14/2019 12 :00 PM CDT 12/14/2019 9:38 PM CDT Narrative [facility] ([place]) - 12/15/2019 2:26 PM CDT Is the patient experiencing any symptoms consistent with COVID (eg. Fever, cough, shortness of breath)?->No What is the reason for testing?->Screening prior to urgent (<12 hr) procedure, surgery, BMT, immunosuppressive therapy us Miranda Carmichael MD LAB MICROBIOLOGY - GENERAL ORDERABLES Final Result [facility] ([place]) 1 [facility] [place] [address] * US Abdominal Wall and Lower Back [...] PM T: ??12/14/2019 12:25 PM Report ID: [id number] Reading Location: ??[id number] Narrative 12/14/2019 12:29 PM CDT [facility] ?Imaging Result Name: JAMAL LICONA Brina ? Ordering Phys: MIRANDA CARMICHAEL Age: 19 ?Date of : 2000 ? Accession Number: [id number] Date of Service: 12/14/2019 ??Gender: F EXAM [...] Procedure Note Cassandra Arguelles MD - 12/14/2019 [facility] Imaging Result Name: JAMAL LICONA Ordering Phys: MIRANDA CARMICHAEL Age: 19 Date of : 2000 Accession Number: [id number] Date of Service: 12/14/2019 Gender: F EXAM [...] signed by Cassandra Arguelles AB: Report ID: [id number] Reading Location: [place] [address] us Miranda Carmichael MD IMG US PROCEDURES Final Res ult * (ABNORMAL) Aerobic culture and gram stain Abscess Groin (12/14/2019 10:50 AM CDT) Direct Specimen Exam Stain: No polymorphonuclear leukocytes seen. No organisms seen. [facility] ([place]) Comment:Testing performed by : [facility], [address] [facility] [place]., [address] Report Final Report: Few Staphylococcus aureus Methicillin susceptible (MSSA) by penicillin binding protein 2a (PBP2a) testing. (.) [facility] ([place]) Comment:Testing performed by : [facility], [address] [facility] [place]., [address] Organism STAPHYLOCOCCUS AUREUS [facility] ([place]) Abscess (Groin) 12/14/2019 1 0:50 AM CDT 12/14/2019 2:40 PM CDT Narrative [facility] ([place]) - 12/18/2019 1:38 PM CDT Testing performed by [facility] ([phone]) Specimens submitted from normally sterile body sites [...] ORDERABLES Final Result [facility] ([place]) 1 [facility] Department [place] [address] * Blood culture Blood Antecubital, left (12/14/2019 10:47 AM CDT) Report Final Report: No growth [facility] ([place]) Comment:Testing performed by : [facility], [address] [place]., [address] Blood specimen (specimen) (Antecubital, left) 12/14/2019 10:47 [...] organism identification may be performed using the Leaf Gram-Positive Blood Culture Assay. This assay detects microbial DNA in positive blood culture broth via hybridization of target DNA to capture oligonucleotides on a microarray. This assay has been cleared by the [place] Food and Drug Administration and its performance characteristics have been verified by the [facility]. 5. ?For questions about this culture, contact the Microbiology Laboratory at [phone]. Interpretive data was last revised on 2019. Miranda Carmichael MD LAB MICROBIOLOGY - GENERAL ORDERABLES Final Result [facility] ([place]) 1 [facility] Department [place] [address] * hCG, blood, quantitative (12/14/2019 10:46 AM CDT) hCG, quant <5.0 0.0 - 5.0 IUnits/L [facility] ([place]) Comment: Interpretive Data Non- Female [...] BLES Edited Result - Final [facility] ([place]) 1 [facility] Department [place] [address] * eGFR (12/14/2019 10:46 AM CDT) eGFR 143 mL/min/1.7 3 m2 [facility] ([place]) Comment: Interpretive Data Reference Interval Normal ?>/= 90 mL/min/1.73m2 Mildly decreased* ? 60 - 89 mL/min/1.73m2 Mildly to moderately decreased ?45 - 59 mL/min/1.73m2 Moderately to severely decreased ??30 - 44 mL/min/1.73m2 Severely decreased ?15 - 29 mL/min/1.73m2 Kidney Failure ?< 15 ??mL/min/1.73m2 *Relative to young adult level If -Citizen Of [place] multiply value by 1.16. Estimated glomerular filtration [...] MD LAB BLOOD ORDERABLES Final Result [facility] ([place]) 1 [facility] Department [place] [address] * Differential, auto (12/14/2019 10:46 AM CDT) [...] BLOOD ORDERABLES Final Result Performing Organization Address City/[facility]/ZIP Co de Phone Number [facility] ([place]) 1 [facility] [employer] [place] [address] * Sepsis Lactate w/ Reflex (12/14/2019 10:46 AM CDT) Pathologist [facility] Sepsis Lactate 1.0 0.7 - 2.0 mmol/L [facility] ([place]) Blood specimen (specimen) 12/14/2019 10:46 AM CDT 12/14/2019 10:51 AM CDT Miranda Carmichael MD LAB BLOOD ORDERABLES Final Result [facility] ([place] 1 [facility] [place] [employer] [place] [address] * (ABNORMAL) Comprehensive metabolic panel (12/14/2019 10:46 [...] ORDERABLES Final Result [facility] ([place]) 1 [facility] Department [place] [address] * Blood culture Blood Forearm, right (12/14/2019 10:46 AM CDT) Report Final Report: No growth [facility] ([place]) Comment:Testing performed by : [facility], 1 [facility] [place]., [address] Blood specimen (specimen) (Forearm, right) 12/14/2019 10:46 [...] organism identification may be performed using the [employer] Gram-Positive Blood Culture Assay. This assay detects microbial DNA in positive blood culture broth via hybridization of target DNA to capture oligonucleotides on a microarray. This assay has been cleared by the [place] Food and Drug Administration and its performance characteristics have been verified by the [facility]. 5. ?For questions about this culture, contact the Microbiology Laboratory at [phone]. Interpretive data was last revised on 2019. us Miranda Carmichael MD LAB MICROBIOLOGY - GENERAL ORDERABLES Final Result [facility] ([place]) 1 [facility] Department [place] [address] * (ABNORMAL) CRP (acute phase) (12/14/2019 10:46 AM CDT) CRP 38.9(H) <=10.0 mg/L [facility] ([place]) Blood specimen (specimen) 12/14/2019 10:46 AM CDT 12/14/2019 10:51 AM CDT Miranda Carmichael MD LAB BLOOD ORDERABLES Final Result Performing Organization Address City/[facility]/ZIP Co de Phone Number [facility] ([place]) 1 [facility] [place] [address] * CBC with auto differential (12/14/2019 10:46 [...] BLOOD ORDERABLES Final Result Performing Organization Address City/[facility]/ZIP Co de Phone Number [facility] ([place]) 1 [facility] [place] [address] documented in this encounter Visit Diagnoses Not [...] Transfer Provider)1351 (New Bag - Provider: Deanne Serraon RN)2107 (New Bag - Provider: Melonie Gordon, [...] 12/14/2019 documented in this encounter Care Teams Teacher Adult Education Relationship Specialty Start Date End Date Venecia Turner MD 4 [facility] [address] LEXIE Gramajo [facility] [address] [place] [address] PCP - General 12/11/19 07/21/21 Jarred Roy MD 2 [facility] [address] [place] [address] 01/30/19 documented as of this encounter
--- OUTSIDE RECORDS SUMMARY | 2024-05-10 20:53 | XMS_ITS | Encounter Summary ---
Author Organization [facility] Healthcare Address [address] [place] [address] Care Team Providers Care Planned Giving Officer Name Role Phone Pantera Fields MD Primary Care Provider [phone] Jarred Roy MD Unavailable [phone] Encounter Details Date Type Department Care Team (Late st Contact Info) Description 01/30/2019 8:12 PM CDT - 01/30/2019 9:57 PM CDT Hospital Encounter [address] [address] Unknown, Juan Jones[address] [address] Discharge Disposition: Discharge to home or self care Social History Tobacco Use Types Packs/Day Years Used Date Smoking Tobacco: Never Assessed Comments No Sex and Gender Information Value Date Recorded Sex Assigned at Not on file 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 Age: 18 ?Sex: Female ? MR#: [id number] ?? Loc: ? RADIOLOGY REPORT ?? Order #[id number] ?? Radiology ? Wrist RT 3 View [...] 9:41 PM ?? T: ? Report ID: [id number] ?? Reading Location: ??[id number] ? REPORT ELECTRONICALLY SIGNED IN OTHER VENDOR SYSTEM ?? Resulting Agency Comment P Procedure Note Michael Carlos MD - 01/30/2019 Patient Name: JAMAL LICONA Cintia Dr: PERSONAL PHYSICIAN,NO D.O.B: 2000 Exam Date: 01/30/19 0000 Age: 18 Sex: Female MR#: [id number] Loc: [facility]#: [id number] RADIOLOGY REPORT Order #[id number] Radiology Wrist RT 3 View Min Signed [...] signed by Michael PRAKASH T: Report ID: [id number] Reading Location: [id number] REPORT ELECTRONICALLY SIGNED IN OTHER VENDOR SYSTEM [...] ?? Age: 18 ?Sex: Female ? MR#: [id number] ?? Loc: ? RADIOLOGY REPORT ?? Order #[id number] ?? Radiology ? Forearm RT 2 View [...] 9:41 PM ?? T: ? Report ID: [id number] ?? Reading Location: ??[id number] ? REPORT ELECTRONICALLY SIGNED IN OTHER VENDOR SYSTEM ?? Resulting Agency Comment P Procedure Note Michael Carlos MD - 01/30/2019 Patient Name: JAMAL LICONAarden Dr: PERSONAL PHYSICIAN,NO D.O.B: 2000 Exam Date: 01/30/19 0000 Age: 18 Sex: Female MR#: [id number] Loc: RADIOLOGY REPORT Order #[id number] Radiology Forearm RT 2 View Signed EXAM [...] signed by Michael PRAKASH T: Report ID: [id number] Reading Location: [id number] REPORT ELECTRONICALLY SIGNED IN OTHER VENDOR SYSTEM us Notinfile Unknown IMG XR PROCEDURES Final Result documented in this encounter Visit Diagnoses Not on filedocumented in this encounter Care Teams Planned Giving Officer Relationship Specialty Start Date End Date Pantera Fields MD PCP - General 01/30/19 05/25/19 Jarred Roy MD [address] [address] 01/30/19 documented as of this encounter
--- OUTSIDE RECORDS SUMMARY | 2024-05-10 20:53 | XMS_ITS | Encounter Summary ---
Author Organization [facility] Medical Group Address [address] [facility] [address] [place] [address] Care Team Providers Care Recruiting Team Lead Name Role Phone Jarred Roy MD Unavailable [phone] Venecia Turner MD Primary Care Provider [phone] Reason for Visit * Reason Comments Abscess Pelvic area Encounter Details Date Type Department Care Team (Late st Contact Info) Description 12/12/2019 12:20 PM CDT Office Visit [facility] [address] [facility] [address] [place] [address] Bryson Clark MD [address] [place] [address] [address] [place] [address] Abscess (Primary Dx) Social History Tobacco Use Types Packs/Day Years Used Date Smoking Tobacco: Never Smokeless Tobacco: Never Alcohol Use Standard Drinks/Week Comments No 0 (1 standard drink = 0.6 oz pur e alcohol) Comments No Sex and Gender Information Value Date Recorded Sex Assigned at Not on file 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
--- OUTSIDE RECORDS SUMMARY | 2024-05-10 20:53 | XMS_ITS | Encounter Summary ---
Author Organization [facility] Medical Group Address [address] [place] [address] Care Team Providers Care Supervising Chef Name Role Phone Jarred Roy MD Unavailable [phone] Venecia Turner MD Primary Care Provider [phone] Encounter Details Date Type Department Care Team (Late st Contact Info) Description 12/13/2019 Telephone [facility] 4 [facility] [address] [place] [address] Bryson Clark MD [address] [place] [address] [address] [place] [address] Social History Tobacco Use Types Packs/Day Years Used Date Smoking Tobacco: Never Smokeless Tobacco: Never Alcohol Use Standard Drinks/Week Comments No 0 (1 standard drink = 0.6 oz pur e alcohol) Comments No Sex and Gender Information Value Date Recorded Sex Assigned at Not on file 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
--- OUTSIDE RECORDS SUMMARY | 2024-05-10 20:53 | XMS_ITS | Encounter Summary ---
Author Organization [facility] Address [address] [place] [address] Care Team Providers Care Broiler Chef Or Cook Name Role Phone Jarred Roy MD Unavailable [phone] No, Physician Primary Care Provider [phone] Reason for Referral * Diagnostic Imaging (Routine) - Closed Specialty Diagnoses / Procedures Referred By Contac t Referred To Contact Radiology Diagnoses Acute pain of right foot Closed nondisplaced fracture of medial cuneiform of right foot, initial encounter Procedures MRI Foot Right WO Contrast Hamilton Klein PA Phone: tel: fax: [facility] [address] [place] [address] Referral ID Status Reason Start Date Expiration Date Visits Re quested Visits Authorized [id number] Closed 06/04/2019 07/19/2019 1 1 R MANAGER Reason for Visit * Reason Comments Pain right foot pain Pain Encounter Details Date Type Department Care Team (Late st Contact Info) Description 06/03/2019 3:00 PM WATER MANAGER Office Visit [facility] [address] [place] [address] Hamilton Klein PA [address] [place] [address] [facility] [place] [address] Acute pain of right foot (Primary Dx); [...] on file Legal Sex Female 11:28 PM WATER MANAGER Gender Identity Not on file Sexual Orientation Not on file documented as of this encounter Last Filed Vital Signs Vital Sign Reading Time Taken Comments Blood Pressure 118/77 06/03/2019 3:06 PM WATER MANAGER Pulse 63 06/03/2019 3:06 PM WATER MANAGER Temperature - - Respiratory Rate - - Oxygen Saturation - - Inhaled Oxygen Concentration - - Weight 115.8 kg (255 lb 3.2 oz) 06/03/2019 3:06 PM WATER MANAGER Height 165.1 cm (5' 5 ) 06/03/2019 3:06 PM WATER MANAGER Body Mass Index 42.47 06/03/2019 3:06 PM WATER MANAGER documented in this encounter Progress Notes [...] foot. The patient was initially evaluated at [facility],where radiographs were negative for acute fracture. [...] David Feliz MD at 06/04/2019 9:56 AM WATER MANAGER R MANAGER R MANAGER documented in this encounter Miscellaneous Notes * Addendum Note - Sadie Goodman MA - 06/03/2019 3:00 PM CSTAddended by: SADIE GOODMAN on: 06/03/2019 03:55 PM Modules accepted: Orders R MANAGER documented in this encounter Plan of Treatment Not on file documented as of this encounter Results * MRI Foot Right WO Contrast (06/07/2019 6:29 PM WATER MANAGER) Anatomical Region Laterality Modality Lower Extremities Right Magnetic Reson ance 06/07/2019 5:50 PM WATER MANAGER Narrative 06/11/2019 10:06 AM WATER MANAGER [facility] ?Imaging Result Name: JAMAL LICONA ? Ordering Phys: HAMILTON KLEIN Age: 19 ?Date of : 2000 ? Accession Number: [id number] Date of Service: 06/07/2019 ??Gender: F EXAM [...] AM T: ??06/10/2019 9:01 AM Report ID: [id number] Reading Location: ??[id number] Procedure Note Mook Arias MD - 06/11/2019 [facility] Imaging Result Name: JAMAL LICONA Brina Ordering Phys: HAMILTON KLEIN Age: 19 Date of : 2000 Accession Number: [id number] Date of Service: 06/07/2019 Gender: F EXAM [...] Mook Arias M.D. MJ: JASON Report ID: [id number] Reading Location: [place] [address] [facility] IM[facility] MRI PROCEDURES Final Result [...] 0 added in this encounter Care Teams Broiler Chef Or Cook Relationship Specialty Start Date End Date No, Physician PCP - General 05/26/19 12/10/19 Jarred Roy MD [address] [place] [address] 01/30/19 documented as of this encounter
--- OUTSIDE RECORDS SUMMARY | 2024-05-10 20:53 | XMS_ITS | Encounter Summary ---
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 Please use mupirocin ointment, and return to the ED for development of fever, chills, shortness of breath, difficulty breathing, or increasing swelling, to the groin area. Thank you for choosing [facility] * Attachments The following attachments cannot be sent through Care Everywhere. * Cellulitis (AfterCare(R) Instructions(ER/ED)) ([place]) documented in this encounter Medications at Time [...] for comfort. Denies prior treatment, denies any [id number] medication usage. Patient History Patient Active Problem [...] ear normal. Nose: Nose normal. Mouth/Throat: Lips: [place]. Mouth: Mucous membranes are moist. Pharynx: No [...] Time: 12/10 1343 Comment: Voice recognition software LumiGrow Direct was used to dictate and transcribe this document. Windlace Machine Operator variances may occur. Despite proofreading, typographical errors [...] for re- evaluation. Patient referred to the [facility] referral line. By: Jeffy Vásquez NP Final [...] site documented in this encounter Care Teams Tank Riveter Relationship Specialty Start Date End Date No, Physician PCP - General 05/26/19 12/10/19 Jarred Roy MD [address] [facility] [address] [address] 01/30/19 documented as of this encounter
--- OUTSIDE RECORDS SUMMARY | 2024-05-10 20:53 | XMS_ITS | Encounter Summary ---
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 * Foot Contusion (AfterCare(R) Instructions(ER/ED)) (British) documented in this encounter [...] Date POST-OP SHOE LG SIZE 8-10 FEMALE ([id number]) 1 12/18/2017 documented in this encounter Care Teams Wax Specialist Relationship Specialty Start Date End Date Jarred Roy MD [address] [address] PCP - General 09/16/17 01/29/19 documented as of this encounter
--- OUTSIDE RECORDS SUMMARY | 2024-05-10 20:53 | XMS_ITS | Encounter Summary ---
Author Organization [facility] Healthcare Address [address] [place] [address] Care Team Providers Care Mosaic Technician Name Role Phone Jarred Roy MD Unavailable [phone] Venecia Turner MD Primary Care Provider [phone] Encounter Details Date Type Department Care Team (Late st Contact Info) Description 12/15/2019 10:00 AM CDT Anesthesia Event [facility] Operating Room [address] [place] [address] Bryson Clark MD [address] [place] [id number] Dieter Clay, [facility] [address] [address] Anesthesia Record Procedure Summary Procedure [...] on file 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 Gender Identity Not on file Sexual Orientation Not on file documented as of this encounter OR Notes * Anesthesia Postprocedure Evaluation - Dieter Clay CRNA - 12/15/2019 10:48 AM CDT Patient: Mary Licona Procedure Summary Date: 12/15/19 Room / [facility] Anesthesia Start: 1000 Anesthesia Stop: 1035 Procedure: INCISION AND DRAINAGE - ABSCESS (N/A ) Diagnosis: (suprapubic abscess) Provider: Brsyon Clark MD Responsible Provider: Bryson Clark MD [...] CDT documented in this encounter Care Teams Mosaic Technician Relationship Specialty Start Date End Date Venecia Turner MD [address] [facility] [address] [place] [address] PCP - General 12/11/19 07/21/21 Jarred Roy MD 2 [facility] [address] [place] [address] 01/30/19 documented as of this encounter
--- OUTSIDE RECORDS SUMMARY | 2024-05-10 20:53 | XMS_ITS | Encounter Summary ---
Author Organization [facility] Healthcare Address [address] [place] [address] Care Team Providers Care Environmental Consultant Name Role Phone Jarred Roy MD Unavailable [phone] Venecia Turner MD Primary Care Provider [phone] Elma Echevarria NP Unavailable Reason for Visit * Reason Comments Abscess Encounter Details Date Type Department Care Team (Late st Contact Info) Description 12/14/2019 10:23 AM CDT - 12/16/2019 4:25 PM CDT Hospital Encounter [facility] [address] [place] [address] Miranda Carmichael MD [address] [address] Aleksandra Reece MD [address] [place] [address] DR JANG [address] [place], [place] [address] [address] Nadeen Joshua MD [address] [place] [address] [address] JANG [address] [place], [place] [address], [place] [address] David Mosquera Jr., MD [address] [place] [address] [place] [address] Therapy failure due to antibiotic resistance (Primary [...] on file 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 Gender Identity Not on file Sexual Orientation [...] Jr., MD - 12/16/2019 2:32 PM CDT [place], [place] Hospitalist Discharge Summary Patient Name: Jamal Licona Patient : 2000 Room/Bed: [id number] Admission Date/Time: 12/14/2019 10:23 AM Discharge date: 12/16/2019 Admitting Physician: Aleksandra Reece MD Discharge Physician: David Mosquera Jr., MD Consults: Treatment Team: Consulting Physician: Bryson Clark MD Discharge Diagnoses: Principal Problem: Abscess Active Problems: Morbid obesity (CMS/[facility]) Hospital Course: For full details of presentation including detailed history, past medical, surgical, social, family history and detailed ROS, as well as detailed exam and labs at time of presentation, please see the History and Physical. 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 [place] [facility] [address] Next Steps: Follow up Instructions: Please keep follow-up appointment scheduled on 12/18/2019 at 2:15 p.m. Questions: Instructions for follow-up (appointment date and time): Please keep follow-up appointment scheduledon 12/18/2019 at 2:15 p.m. To provider: ELMA ECHEVARRIA Total time spent on day of discharge 35 minutes Signed: David Mosquera Jr., MD Internal Medicine - Hospitalist [facility] - Adult Hospitalist Service 12/16/2019 2:33 PM Cc: eVnecia Turner MD documented in this encounter Discharge Instructions * Discharge Instructions* Bryson Clark MD - 12/16/2019 12:16 PM CDT 1 packing to mons pubis abscess, cover with dry gauze and tape. Please change daily * Discharge Instr - Other Orders* Lyndsey Triplett RN - 12/16/2019 2:41 PM CDT If you have any questions or concerns following discharge, please call [facility] at [phone]. 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[place]) Potential Discharge Needs Anticipated discharge level of [...] Joshua MD - 12/15/2019 10:02 AM CDT [facility] Hospitalist Service Progress Note Patient Name: [...] Soft Tissue Mass Result Date: 12/14/2019 Narrative: [facility] Imaging Result Name: JAMAL LICONA Brina OrderingPhys: MIRANDA CARMICHAEL Age: 19 Date of : 2000 Accession Number: [id number] Date of Service: 12/14/2019 Gender: F EXAM [...] signed by Cassandra Arguelles AB: Report ID: [id number] Reading Location: [id number] Pertinent Labs: I have reviewed the pertinent labs. ASSESSMENT AND PLAN: Patient Active Problem List Diagnosis ??? Elbow pain ??? Ankle pain ??? Acute pain of right foot ??? Closed nondisplaced fracture of medial cuneiform of right foot ??? Abscess ??? Morbid obesity (CMS/[facility]) Assessment Mons pubis abscess Morbid obesity Plan [...] Merrill Joshua MD Internal Medicine - Hospitalist [facility] - Adult Hospitalist Service Voice recognition software SMCpros Direct was used dictate and transcribe this document. Wellness Program Administrator variances may occur. Despite proofreading, typographical errors may occur 12/15/2019 10:02 AM documented in this encounter H&P Notes * Nadeen Joshua MD - 12/14/2019 4:55 PM CDT [facility] Adult Hospitalist Service History and Physical Patient Name: Jamal Licona Patient : 2000 Age/Sex: 19 y.o. female Room/Bed: [place] [id number] Admission Date/Time: 12/14/2019 10:23 AM Date: 12/14/2019 Time: 5:03 PM Primary Care Physician: Venecia Turner MD PCP Office Location: [address] [place] [address] DR LEXIE Gramajo [address] [address] PCP Chief Complaint: Pain and swelling over [...] Soft Tissue Mass Result Date: 12/14/2019 Narrative: [facility] Imaging Result Name: JAMAL LICONA OrderingPhys: MIRANDA CARMICHAEL Age: 19 Date of : 2000 Accession Number: [id number] Date of Service: 12/14/2019 Gender: F EXAM [...] signed by Cassandra Arguelles AB: Report ID: [id number] Reading Location: [id number] ASSESSMENT AND PLAN: Patient Active Problem List [...] merrill Joshua MD Internal Medicine - Hospitalist [facility] - Adult Hospitalist Service Voice recognition software SMCpros Direct was used dictate and transcribe this document. Wellness Program Administrator variances may occur. Despite proofreading, typographical errors [...] file Gets together: Not on file Attends anglican service: Not on file Active member of [...] History provided by: Patient and medical records asl interpreter used: No Patient History Patient Active [...] signed by Cassandra Arguelles AB: Report ID: [id number] Reading Location: [id number] [facility] ED Course as of Dec 13 [...] OF : 2000 SURGEON: Bryson Clark MD SUPERVISOR MATRIX:Asbestos Removal Supervisor: Brianda Middleton RN Scrub: Tana Lane RN SUPERVISING DEPUTY: Joaquina Berkowitz RN DATE OF SURGERY: 12/15/2019 [...] Results * eGFR (12/16/2019 5:13 AM CDT) [facility] Signature eGFR 143 mL/min/1.7 3 m2 [facility] ([place]) Comment: Interpretive Data Reference Interval Normal ?>/= 90 mL/min/1.73m2 Mildly decreased* ? 60 - 89 mL/min/1.73m2 Mildly to moderately decreased ?45 - 59 mL/min/1.73m2 Moderately to severely decreased ??30 - 44 mL/min/1.73m2 Severely decreased ?15 - 29 mL/min/1.73m2 Kidney Failure ?< 15 ??mL/min/1.73m2 *Relative to young adult level If -Angolan multiply value by 1.16. Estimated glomerular filtration [...] AM CDT 12/16/2019 5:39 AM CDT Bryson Clrak MD LAB BLOOD ORDERA BLES Final Result [facility] ([place]) 1 [facility] [place] [address] * Differential, auto (12/16/2019 5:13 AM CDT) [...] MD LAB BLOOD ORDERA BLES Final Result [facility] ([place]) 1 [facility] [place] [address] * (ABNORMAL) Basic metabolic panel (12/16/2019 5:13 [...] BLES Final Result [facility] ([place]) 1 [facility] [place] [address] * (ABNORMAL) CBC with auto differential (12/16/2019 [...] BLES Final Result [facility] ([place]) 1 [facility] [place] [address] * (ABNORMAL) Aerobic and anaerobic culture and gram stain Abscess Abdominal (12/15/2019 10:19 AM CDT) Direct Specimen Exam Stain: Few polymorphonuclear leukocytes seen. Few Gram Positive Cocci [facility] ([place]) Comment:Testing performed by : [facility], [address] [place] [address]., [id number] Report Final Report: Abundant Staphylococcus aureus Methicillin susceptible (MSSA) by penicillin binding protein 2a (PBP2a) testing. (.) [facility] ([place]) Comment:Testing performed by : [facility], [address] [place] [address]., [id number] Organism STAPHYLOCOCCUS AUREUS [facility] ([place]) Abscess (Abdominal) 12/15/2019 10:19 AM CDT 12/15/2019 12:44 PM CDT Narrative [facility] ([place]) - 12/18/2019 10:16 AM CDT Mons pubis abscess Testing performed by [facility] Microbiology Laboratory ([phone]) Specimens submitted from normally sterile body sites [...] ORDERABLES Final Result [facility] ([place]) 1 [facility] [place] [address] * COVID-19 Coronavirus RNA Nasopharyngeal (12/14/2019 12:00 PM CDT) COVID-19 RNA Not Detected [facility]ICOLE [facility] ([place]) Comment: Interpretive Data Testing performed at [facility] Molecular Infectious Disease Laboratory. The 2018-Novel Coronavirus [...] last revised on 2019. Testing performed by: [facility], [address] [place]., [address] Nasopharyngeal 12/14/2019 12 :00 PM CDT 12/14/2019 9:38 PM CDT Narrative [facility] ([place]) - 12/15/2019 2:26 PM CDT Is the patient experiencing any symptoms consistent with COVID (eg. Fever, cough, shortness of breath)?->No What is the reason for testing?->Screening prior to urgent (<12 hr) procedure, surgery, BMT, immunosuppressive therapy Miranda Carmichael MD LAB MICROBIOLOGY - GENERAL ORDERABLES Final Result [facility] ([place]) 1 [facility] [place] [address] * US Abdominal Wall and Lower Back [...] PM T: ??12/14/2019 12:25 PM Report ID: [id number] Reading Location: ??[id number] Narrative 12/14/2019 12:29 PM CDT [facility] ?Imaging Result Name: JAMAL LICONA ? Ordering Phys: MIRANDA CARMICHAEL Age: 19 ?Date of : 2000 ? Accession Number: [id number] Date of Service: 12/14/2019 ??Gender: F EXAM [...] Procedure Note Cassandra Arguelles MD - 12/14/2019 [facility] Imaging Result Name: JAMAL LICONA Ordering Phys: IMRANDA CARMICHAEL Age: 19 Date of : 2000 Accession Number: [id number] Date of Service: 12/14/2019 Gender: F EXAM [...] signed by Cassandra Arguelles AB: Report ID: [id number] Reading Location: [place] [address] Miranda Carmichael MD IMG US PROCEDURES Final Res ult * (ABNORMAL) Aerobic culture and gram stain Abscess Groin (12/14/2019 10:50 AM CDT) Direct Specimen Exam Stain: No polymorphonuclear leukocytes seen. No organisms seen. [facility] ([place]) Comment:Testing performed by : [facility], [address] [place] [address]., [id number] Report Final Report: Few Staphylococcus aureus Methicillin susceptible (MSSA) by penicillin binding protein 2a (PBP2a) testing. (.) [facility] ([place]) Comment:Testing performed by : [facility], [address] [place] [address]., [address] Organism STAPHYLOCOCCUS AUREUS [facility] ([place]) Abscess (Groin) 12/14/2019 1 0:50 AM CDT 12/14/2019 2:40 PM CDT Narrative [facility] ([place]) - 12/18/2019 1:38 PM CDT Testing performed by [facility] Microbiology Laboratory ([phone]) Specimens submitted from normally sterile body sites [...] ORDERABLES Final Result [facility] ([place]) 1 [facility] [place] [address] * Blood culture Blood Antecubital, left (12/14/2019 10:47 AM CDT) Report Final Report: No growth [facility] ([place]) Comment:Testing performed by : [facility], [address] [place]., [address] Blood specimen (specimen) (Antecubital, left) 12/14/2019 10:47 [...] organism identification may be performed using the [employer] Gram-Positive Blood Culture Assay. This assay detects microbial DNA in positive blood culture broth via hybridization of target DNA to capture oligonucleotides on a microarray. This assay has been cleared by the [place] Food and Drug Administration and its performance characteristics have been verified by the [facility] Microbiology Laboratory. 5. ?For questions about this culture, contact the Microbiology Laboratory at [phone]. Interpretive data was last revised on 2019. Miranda Carmichael MD LAB MICROBIOLOGY - GENERAL ORDERABLES Final Result Performing Organization Address [facility] de Phone Number [facility] ([place]) 1 [facility] [place] [address] * hCG, blood, quantitative (12/14/2019 10:46 AM CDT) hCG, quant <5.0 0.0 - 5.0 IUnits/L [facility] ([place] [facility]) Comment: Interpretive Data Non- Female premenopausal: < [...] Edited Result - Final Performing Organization Address City/[facility]/ZIP Co de Phone Number [facility] ([place]) 1 [facility] [place] [address] * eGFR (12/14/2019 10:46 AM CDT) Pathologist [facility] eGFR 143 mL/min/1.7 3 m2 [facility] ([place]) Comment: Interpretive Data Reference Interval Normal ?>/= 90 mL/min/1.73m2 Mildly decreased* ? 60 - 89 mL/min/1.73m2 Mildly to moderately decreased ?45 - 59 mL/min/1.73m2 Moderately to severely decreased ??30 - 44 mL/min/1.73m2 Severely decreased ?15 - 29 mL/min/1.73m2 Kidney Failure ?< 15 ??mL/min/1.73m2 *Relative to young adult level If -Angolan multiply value by 1.16. Estimated glomerular filtration [...] LAB BLOOD ORDERABLES Final Result [facility] ([place] [facility]) 1 [facility] [place] [address] * Differential, auto (12/14/2019 10:46 AM CDT) Neutrophil abs 2.8 1.7 - 6.5 K/cumm [facility] ([place] [facility]) Imm gran abs 0.0 0.0 - 0.1 K/cumm [facility] ([place] [facility]) Lymphocyte abs 1.6 0.8 - 3.3 K/cumm [facility] ([place] [facility]) Monocyte abs 0.5 0.2 - 0.8 K/cumm [facility] ([place] [facility]) Eosinophil abs 0.2 0.0 - 0.5 K/cumm [facility] ([place] [facility]) Basophil abs 0.0 0.0 - 0.1 K/cumm [facility] ([place] [facility]) Neutrophil pct 54.8 % [facility] [...] ORDERABLES Final Result [facility] ([place]) 1 [facility] Department of Laboratories [place], [place] [id number] * Sepsis Lactate w/ Reflex (12/14/2019 10:46 AM CDT) Sepsis Lactate 1.0 0.7 - 2.0 mmol/L [facility] ([place]) Blood specimen (specimen) 12/14/2019 10:46 AM CDT 12/14/2019 10:51 AM CDT Miranda Carmichael MD LAB BLOOD ORDERABLES Final Result [facility] ([place]) 1 [facility] [place] [address] * (ABNORMAL) Comprehensive metabolic panel (12/14/2019 10:46 [...] ORDERABLES Final Result [facility] ([place]) 1 [facility] [place] [address] * Blood culture Blood Forearm, right (12/14/2019 10:46 AM CDT) Report Final Report: No growth [facility] ([place]) Comment:Testing performed by : [facility], [address] [place]., [address] Blood specimen (specimen) (Forearm, right) 12/14/2019 10:46 [...] organism identification may be performed using the [employer] Gram-Positive Blood Culture Assay. This assay detects microbial DNA in positive blood culture broth via hybridization of target DNA to capture oligonucleotides on a microarray. This assay has been cleared by the [place] Food and Drug Administration and its performance characteristics have been verified by the [facility] Microbiology Laboratory. 5. ?For questions about this culture, contact the Microbiology Laboratory at [phone]. Interpretive data was last revised on 2019. Miranda Carmichael MD LAB MICROBIOLOGY - GENERAL ORDERABLES Final Result [facility] ([place]) 1 [facility] [place] [address] * (ABNORMAL) CRP (acute phase) (12/14/2019 10:46 AM CDT) [facility] CRP 38.9(H) <=10.0 mg/L [facility] ([place]) Blood specimen (specimen) 12/14/2019 10:46 AM CDT 12/14/2019 10:51 AM CDT Miranda Carmichael MD LAB BLOOD ORDERABLES Final Result [facility] ([place]) 1 [facility] [employer] [place] [address] * CBC with auto differential (12/14/2019 10:46 AM CDT) Pathologist [facility] WBC 5.1 3.8 - 9.9 K/cumm [facility]ER [...] - 48.1 fL [facility] ([place] [facility]) NRBC abs 0.00 0.00 - 0.01 K/cumm [facility] ([place] [facility]) Blood specimen (specimen) 12/14/2019 10:46 AM CDT 12/14/2019 10:51 AM CDT Miranda Carmichael MD LAB BLOOD ORDERABLES Final Result [facility] ([place] [facility]) 1 [facility] [place] [address] documented in this encounter Visit Diagnoses Diagnosis [...] (New Bag - Provider: Amada Curry RN)1001 ([facility] Hold - Provider: Automatic Transfer Provider - Reason: Patient not available)1112 ([facility] Unhold - Provider: Automatic Transfer [...] 12/14/2019 documented in this encounter Care Teams Environmental Consultant Relationship Specialty Start Date End Date Venecia Turner MD [address] [facility] LEXIE Gramajo [facility] [address] [place] [address] PCP - General 12/11/19 07/21/21 Jarred Roy MD [address] [facility] [address] [place] [address] 01/30/19 Elma Echevarria NP [address] [place] [address] DR LEXIE Gramajo [facility] [address] [place] [address] Nurse Practitioner General Surgery 12/16/19 documented as of this encounter
--- OUTSIDE RECORDS SUMMARY | 2024-05-10 20:53 | XMS_ITS | Encounter Summary ---
Author Organization [facility] Healthcare Address [address] [place] [address] Care Team Providers Care Cash Applications Representative Name Role Phone Jarred Roy MD Unavailable [phone] Venecia Turner MD Primary Care Provider [phone] Reason for Visit * Reason Comments Cellulitis Encounter Details Date Type Department Care Team (Late st Contact Info) Description 12/11/2019 10:08 PM CDT - 12/12/2019 3:53 AM CDT Emergency [facility] [address] [place] [address] Annamaria Solis MD [address] [place] [id number] Abscess of suprapubic region (Primary Dx) Discharge [...] on file Legal Sex Female 11:28 PM CLAIMS PROCESSOR Gender Identity Not on file Sexual [...] through Care Everywhere. * Abscess (AfterCare(R) Instructions(ER/ED)) (Ethiopian) documented in this encounter [...] ago. She was evaluated at [facility] ED yesterday for these symptoms, where she [...] tendency for uric acid stone formation. Source: [facility].Last revised 05-18-2017 COMPREHENSIVE METABOLIC PANEL - Abnormal [...] Drainage Date/Time: 12/12/2019 3:28 AM Performed by: nAnamaria Solis MD Authorized by: Annamaria Solis MD RN Notified of Procedure: yes Informed consent: Risks, benefits, alternatives discussed and patient/front office representative/guardian agrees and accepts Allergies confirmed: yes [...] Annamaria Solis MD 12/12/19 05 * Anaya Long RN - 12/11/2019 10:15 PM CDT Patient [...] METABOLIC PANEL STAT 12/11/2019 11:18 PM CDT AK INCISION & DRAINAGE ABSCESS SIMPLE/SINGLE Routine 12/11/2019 10:58 PM CDT documented in this encounter Results * (ABNORMAL) Aerobic culture and gram stain Wound Groin (12/12/2019 3:35 AM CDT) Direct Specimen Exam Stain: Rare polymorphonuclear leukocytes seen. Rare Gram Positive Cocci Slide reviewed. ??Review is consistent with original read. SAY HOLMAN ([place]) Comment:Testing performed by : [facility], [address] [place]., [address] Report Final Report: Moderate Staphylococcus aureus Methicillin susceptible (MSSA) by penicillin binding protein 2a (PBP2a) testing. (.) SAY HOLMAN ([place]) Comment:Testing performed by : [facility], [address] [place]., [address] Organism STAPHYLOCOCCUS AUREUS SAY HOLMAN ([place]) Wound (Groin) 12/12/2019 3:3 5 AM CDT 12/12/2019 6:52 AM CDT Narrative SAY HOLMAN ([place]) - 12/15/2019 1:09 PM CDT Testing performed by [facility] Microbiology Laboratory ([phone]) Specimens submitted from normally sterile body sites [...] ORDERABLES Final Result SAY HOLMAN ([place]) 1 [facility] Department [place] [address] * (ABNORMAL) Sepsis Lactate w/ Reflex (12/11/2019 11:32 PM CDT) Sepsis Lactate 0.6(L) 0.7 - 2.0 mmol/L SAY HOLMAN ([place]) Blood specimen (specimen) 12/11/2019 11:32 PM CDT 12/11/2019 11:36 PM CDT us Annamaria Solis MD LAB BLOOD ORDERABLES Final Result Performing Organization Address City/[facility]/ZIP Co de Phone Number SAY HOLMAN ([place]) 1 [facility] [place] [address] * eGFR (12/11/2019 11:18 PM CDT) eGFR 143 mL/min/1.7 3 m2 SAY HOLMAN ([place]) Comment: Interpretive Data Reference Interval Normal ?>/= 90 mL/min/1.73m2 Mildly decreased* ? 60 - 89 mL/min/1.73m2 Mildly to moderately decreased ?45 - 59 mL/min/1.73m2 Moderately to severely decreased ??30 - 44 mL/min/1.73m2 Severely decreased ?15 - 29 mL/min/1.73m2 Kidney Failure ?< 15 ??mL/min/1.73m2 *Relative to young adult level If -Nepalese multiply value by 1.16. Estimated glomerular filtration [...] LAB BLOOD ORDERABLES Final Result SAY HOLMAN ([place]) 1 [facility] [place] [address] * (ABNORMAL) Urinalysis, microscopic only (12/11/2019 11:18 PM CDT) WBC, ur 0-5 0 - 5 /HPF [facility] ([place]) RBC, ur 0-2 0 - 2 /HPF [facility] ([place]) Epithelial cells, squamous, ur 1-5 0 - 5 /HPF [facility] ([place]) Bacteria, ur Trace(A) [facility] ([place]) Mucous, ur Present(A) [facility] ([place]) Hyaline casts, ur 1-5 0 - 10 /LPF [facility] ([place]) Culture Reflex Comment Reflex conditions for urine culture (WBC >10) not met. [facility] ([place]) Urine 12/11/2019 11:1 8 PM CDT 12/11/2019 11:20 PM CDT us Annamaria Solis MD LAB URINE ORDERABLES Final Result [facility] ([place]) 1 [facility] Department [place] [address] * (ABNORMAL) Differential, auto (12/11/2019 11:18 PM [...] BLOOD ORDERABLES Final Result Performing Organization Address City/[facility]/ZIP Co de Phone Number SAY HOLMAN ([place]) 1 [facility] Department [place] [address] * hCG, urine, qualitative (12/11/2019 11:18 PM CDT) HCG, ur Negative Negative S[facility]OL[facility] ([place]) Urine 12/11/2019 11:1 8 PM CDT 12/11/2019 11:20 PM CDT Annamaria Solis MD LAB URINE ORDERABLES Final Result [facility] ([place]) 1 [facility] Department [place] [address] * (ABNORMAL) Urinalysis reflex to microscopic and [...] tendency for uric acid stone formation. Source: [employer]. Last revised 05-18-2017 us Annamaria Solis MD LAB MICROBIOLOGY - GENERAL ORDERABLES Final Result SAY [facility]OL[facility] ([place]) 1 [facility] Department [place] [address] * (ABNORMAL) Comprehensive metabolic panel (12/11/2019 11:18 [...] Solis MD LAB BLOOD ORDERABLES Final Result [facility] ([place]) 1 [facility] Department [place] [address] * CBC with auto differential (12/11/2019 11:18 [...] ORDERABLES Final Result [facility] ([place]) 1 [facility] [place] [address] * AK INCISION & DRAINAGE ABSCESS SIMPLE/SINGLE (12/11/2019 10:58 PM CDT) Narrative Annamaria Solis MD - 12/11/2019 10:58 PM CDT Annamaria Solis MD ? 12/12/2019 ??5:21 AM Incision and Drainage Date/Time: 12/12/2019 3:28 AM Performed by: Annamaria Solis MD Authorized by: Annamaria Solis MD RN Notified of Procedure: yes ?? Informed consent: ??Risks, benefits, alternatives discussed and patient/front office representative/guardian agrees and accepts Allergies confirmed: yes [...] 12/11/2019 documented in this encounter Care Teams Cash Applications Representative Relationship Specialty Start Date End Date Venecia Turner MD [address] [facility] [address] [facility] [address] [place] [address] PCP - General 12/11/19 07/21/21 Jarred Roy MD 2 [facility] [address] [place] [address] 01/30/19 documented as of this encounter
--- OUTSIDE RECORDS SUMMARY | 2024-05-10 20:53 | XMS_ITS | Encounter Summary ---
Author Organization [facility] Healthcare Address [address] [place] [address] Care Team Providers Care Rv Servicer Name Role Phone Jarred Roy MD Unavailable [phone] No, Physician Primary Care Provider [phone] Reason for Visit * Reason Comments Foot Pain Encounter Details Date Type Department Care Team (Late st Contact Info) Description 05/26/2019 11:12 PM NUCLEAR PLANT OPERATOR - 05/26/2019 11:58 PM NUCLEAR PLANT OPERATOR Emergency [facility] Emergency Department 1 [place] [address] Quinton Brock MD 1 [facility] [address] [place] [address] Contusion of right foot, initial encounter (Primary [...] on file Legal Sex Female 11:28 PM NUCLEAR PLANT OPERATOR Gender Identity Not on file Sexual Orientation Not on file documented as of this encounter Last Filed Vital Signs Vital Sign Reading Time Taken Comments Blood Pressure 138/81 05/26/2019 11:20 PM NUCLEAR PLANT OPERATOR Pulse 87 05/26/2019 11:20 PM NUCLEAR PLANT OPERATOR Temperature 36.6 ??C (97.8 ??F) 05/26/2019 11:[address] Respiratory Rate 16 05/26/2019 11:20 PM NUCLEAR PLANT OPERATOR Oxygen Saturation 100% 05/26/2019 11:20 PM NUCLEAR PLANT OPERATOR Inhaled Oxygen Concentration - - Weight - [...] Care Everywhere. * Foot Contusion (AfterCare(R) Instructions(ER/ED)) (Citizen Of [place]) documented in this encounter Medications at Time [...] time. Psychiatric: Thought Content: Thought content normal. [facility] ED Course as of May 26 2339 Time: 05/26 2338 Comment: Patient aware of x-ray results By: Quinton Brock MD Contusion of right foot, initial encounter Quinton Brock MD 05/26/192339 EAR PLANT OPERATOR documented in this encounter Plan of Treatment Not on file documented as of this encounter Procedures Procedure Name Priority Date/Time Associated Diagnosis Comments XR FOOT RIGHT 3 OR MORE VIEWS ED 05/26/2019 11:30 PM NUCLEAR PLANT OPERATOR documented in this encounter Results * XR Foot Right 3+ views (05/26/2019 11:30 PM NUCLEAR PLANT OPERATOR) Anatomical Region Laterality Modality Lower Extremities, Foot Right Computed Radiography 05/26/2019 11:2 5 PM NUCLEAR PLANT OPERATOR Narrative 05/26/2019 11:39 PM NUCLEAR PLANT OPERATOR PROCEDURE INFORMATION: Exam: XR Right Foot Complete [...] 05/26/2019 documented in this encounter Care Teams Rv Servicer Relationship Specialty Start Date End Date No, Physician PCP - General 05/26/19 12/10/19 Jarred Roy MD [address] [address] 01/30/19 documented as of this encounter
--- OUTSIDE RECORDS SUMMARY | 2024-05-10 20:53 | XMS_ITS | Encounter Summary ---
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
--- OUTSIDE RECORDS SUMMARY | 2024-05-10 20:54 | XMS_ITS | Encounter Summary ---
Author Organization [facility] Healthcare Address [address] [place] [address] Care Team Providers Care Operations Examiner Name Role Phone Unavailable Primary Care Provider Unavailabl e Encounter Details Date Type Department Care Team (Late st Contact Info) Description 05/03/2011 9:35 AM TERRAZZO LABORER - 05/03/2011 11:59 PM TERRAZZO LABORER Hospital Encounter [facility] Estela Daly MD [address] [place] [address] Dietary counseling and surveillance; Morbid obesity (HCC) Social History Tobacco Use Types Packs/Day Years Used Date Smoking Tobacco: Never Assessed Comments Unknown Sex and Gender Information Value Date Recorded Sex Assigned at Not on file Legal Sex Female 11:28 PM TERRAZZO LABORER Gender Identity Not on file Sexual Orientation Not on file documented as of this encounter Plan of Treatment Not on file documented as of this encounter Visit Diagnoses Diagnosis Dietary counseling and surveillance Morbid obesity (HCC) Morbid obesity documented in this encounter
--- OUTSIDE RECORDS SUMMARY | 2024-05-10 20:54 | XMS_ITS | Encounter Summary ---
Author Organization [facility] Healthcare Address [address] [place] [address] Care Team Providers Care Wellness Program Coordinator Name Role Phone Unavailable Primary Care Provider [...] on file Legal Sex Female 11:28 PM ADVANCE SCOUT Gender Identity Not on file Sexual Orientation Not on file documented as of this encounter Plan of Treatment Not on file documented as of this encounter Visit Diagnoses Not on filedocumented in this encounter
--- OUTSIDE RECORDS SUMMARY | 2024-05-10 20:54 | XMS_ITS | Encounter Summary ---
Author Organization [facility] Healthcare Address [address] [place] [address] Care Team Providers Care Rigging Slinger Name Role Phone Unavailable Primary Care Provider Unavailabl e Encounter Details Date Type Department Care Team (Late st Contact Info) Description 08/04/2006 5:35 PM CDT - 08/04/2006 8:45 PM CDT Hospital Encounter [facility] Emanuel Lai MD [address] [facility] [address] Estela Saenz MD 2 [facility] [address] [address] Social History Tobacco Use Types Packs/Day Years Used Date Smoking Tobacco: Never Assessed Comments Unknown Sex and Gender Information Value Date Recorded Sex Assigned at Not on file Legal Sex Female 11:28 PM SCHOOL COORDINATOR Gender Identity Not on file Sexual Orientation Not on file documented as of this encounter Plan of Treatment Not on file documented as of this encounter Visit Diagnoses Not on filedocumented in this encounter
--- OUTSIDE RECORDS SUMMARY | 2024-05-10 20:54 | XMS_ITS | Encounter Summary ---
Author Organization [facility] Healthcare Address [address] [place] [address] Care Team Providers Care Knocker Off Name Role Phone Jarred Roy MD Primary Care Provider Reason for Visit * Reason Comments Back Pain Encounter Details Date Type Department Care Team (Late st Contact Info) Description 09/16/2017 11:59 AM CDT - 09/16/2017 2:50 PM CDT Emergency [facility] Emergency Department 1 [place] [address] Annamaria Solis MD [address] [place] [address] Left-sided thoracic back pain, unspecified chronicity (Primary [...] on file Legal Sex Female 11:28 PM COMMUNICATIONS DEPARTMENT HEAD Gender Identity Not on file Sexual Orientation [...] 09/16/2017 12: 20 PM CDT Growth Chart: [facility] (Girls, 2- 20 Years) documented in [...] tendency for uric acid stone formation. Source: [facility] [employer].Last revised 05-18-2017 COMPREHENSIVE METABOLIC PANEL - Abnormal [...] as a scribe for Dr. Annamaria Solis MD.I electronically signed this note at 12:36 [...] eGFR >60 mL/min/1.7 3 m2 SAY HOLMAN ([place]) Comment: Interpretive Data Reference Interval Normal ?>/= 90 mL/min/1.73m2 Mildly decreased* ? 60 - 89 mL/min/1.73m2 Mildly to moderately decreased ?45 - 59 mL/min/1.73m2 Moderately to severely decreased ??30 - 44 mL/min/1.73m2 Severely decreased ?15 - 29 mL/min/1.73m2 Kidney Failure ?< 15 ??mL/min/1.73m2 *Relative to young adult level If -Kosovan multiply value by 1.16. Estimated glomerular filtration [...] LAB BLOOD ORDERABLES Final Result SAY HOLMAN ([place]) 1 [facility] [place] [address] * Differential, auto (09/16/2017 1:02 PM CDT) [...] BLOOD ORDERABLES Final Result Performing Organization Address [facility] de Phone Number SAY HOLMAN ([place]) 1 [facility] [place] [address] * (ABNORMAL) D-dimer, quantitative (09/16/2017 1:02 PM [...] BLOOD ORDERABLES Final Result Performing Organization Address [facility] Co de Phone Number SAY HOLMAN ([place]) 1 [facility] [address] [place] [address] * (ABNORMAL) Comprehensive metabolic panel (09/16/2017 1:02 PM CDT) Pathologist [facility] Sodium 143 135 - 145 mmol/L CHEYANNENER [...] ORDERABLES Final Result [facility] ([place]) 1 [facility] [place] [address] * CBC with auto differential (09/16/2017 1:02 PM CDT) WBC 7.2 3.8 - 9.9 K/cumm [facility] ([place]) RBC 4.43 3.90 - 5.20 M/cumm [facility] ([place]) Hgb 13.6 11.9 - 15.5 g/dL [facility] ([place]) Hct 40.1 35.6 - 45.5 % [facility] ([place]) MCV 90.5 81.3 - 96.4 fL [facility] ([place]) MCH 30.7 27.1 - 33.3 pg [facility] ([place]) MCHC 33.9 32.3 - 35.7 g/dL [facility] ([place]) RDW CV 12.7 11.1 - 14.9 % [facility] ([place]) RDW SD 42.2 35.7 - 48.1 fL [facility] ([place]) Plt 269 150 - 400 K/cumm [facility] ([place]) MPV 9.4 9.1 - 12.3 fL [facility] ([place]) NRBC abs 0.00 0.00 - 0.01 K/cumm [facility] ([place]) Blood specimen (specimen) 09/16/2017 1:02 PM CDT 09/16/2017 1:09 PM CDT Narrative [facility] ([place]) - 09/16/2017 1:13 PM CDT us Annamaria Solis MD LAB BLOOD ORDERABLES Final Result [facility] ([place]) 1 [facility] [place] [address] * (ABNORMAL) Urinalysis, microscopic only (09/16/2017 12:56 [...] ORDERABLES Final Result [facility] ([place]) 1 [facility] [place] [address] * (ABNORMAL) Urinalysis reflex to microscopic and culture Urine (09/16/2017 12:56 PM CDT) Color, ur Yellow Yellow [facility] ([place]) Clarity, ur Cloudy(A) Clear [facility] ([place]) Specific gravity, ur 1.014 1.010 - 1.025 [...] tendency for uric acid stone formation. Source: [employer]. Last revised 05-18-2017 Annamaria Solis MD LAB MICROBIOLOGY - GENERAL ORDERABLES Final Result [facility] [place]) 4 [facility] [place] [address] * XR Chest Pa Lateral [...] AM CDT Ordered by an unspecified provider. [facility] Provider LAB BLOOD ORDERABLES Dilcia l Result [...] RN) documented in this encounter Care Teams Knocker Off Relationship Specialty Start Date End Date Jarred Roy MD [address] [address] PCP - General 09/16/17 01/29/19 documented as of this encounter
--- OUTSIDE RECORDS SUMMARY | 2024-05-10 20:54 | XMS_ITS | Encounter Summary ---
Author Organization [facility] Healthcare Address [address] [place] [address] Care Team Providers Care Hebrew Professor Name Role Phone Unavailable Primary Care Provider Unavailabl e Encounter Details Date Type Department Care Team (Late st Contact Info) Description 09/09/2009 4:00 PM CDT - 09/09/2009 4:55 PM CDT Hospital Encounter [facility] Naseem Madsen MD [address] [facility] [address] [place] [address] Estela Saenz MD 2 [facility] 8 [place] [address] Closed fracture of phalanx of foot; Accident; Unspecified place of occurrence Social History Tobacco Use Types Packs/Day Years Used Date Smoking Tobacco: Never Assessed Comments Unknown Sex and Gender Information Value Date Recorded Sex Assigned at Not on file Legal Sex Female 11:28 PM SHIPPING AND RECEIVING 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
--- OUTSIDE RECORDS SUMMARY | 2024-05-10 20:54 | XMS_ITS | Encounter Summary ---
Author Organization [facility] Healthcare Address [address] [place] [address] Care Team Providers Care School Library Media Specialist Name Role Phone Estela Saenz MD Primary Care Provider [phone] Encounter Details Date Type Department Care Team (Late st Contact Info) Description 02/02/2015 6:45 PM CDT - 02/02/2015 10:01 PM CDT Hospital Encounter [facility]INCONV Brady Wolf MD [address] [place] [address] Closed fracture of head of radius; Other fall; Accidents occurring in other specified places Social History Tobacco Use Types Packs/Day Years Used Date Smoking Tobacco: Never Assessed Comments Unknown Sex and Gender Information Value Date Recorded Sex Assigned at Not on file Legal Sex Female 11:28 PM DEVOPS Gender Identity Not on file Sexual Orientation [...] CDT XR Elbow Min 3 Views L ??[id number] ??Acc#: ??[id number] DATE OF EXAM: ??Feb 02 2015 CLINICAL [...] Fax: ??-- Attending Fax: ??-- Attending ID: ??[id number] Requesting ID: ??[id number] Report To 1 ID: ??[id number] Report To 1 Name: ??BRADY WOLF Report To 1 FAX: ??-- NextGen Order #: Procedure Note Provider, MD Kodi - 09/07/2016 XR Elbow Min 3 Views L [id number] Acc#: [id number] DATE OF EXAM: Feb 02 2015 CLINICAL [...] Fax: -- Attending Fax: -- Attending ID: [id number] Requesting ID: [id number] Report To 1 ID: [id number] Report To 1 Name: BRADY WOLF Report To 1 FAX: -- NextGen Order #: Historical Provider MD HICKS XR PROCEDURES Final R esult documented in this encounter Visit Diagnoses Diagnosis Closed fracture of head of radius Other fall Accidents occurring in other specified places documented in this encounter Care Teams School Library Media Specialist Relationship Specialty Start Date End Date Estela Saenz MD [address] [place] [address] PCP - General 05/19/14 09/15/17 documented as of this encounter
--- OUTSIDE RECORDS SUMMARY | 2024-05-10 20:54 | XMS_ITS | Encounter Summary ---
Author Organization [facility] Healthcare Address [address] [place] [address] Care Team Providers Care Cash Sales Audit Clerk Name Role Phone Unavailable Primary Care Provider Unavailabl e Encounter Details Date Type Department Care Team (Late st Contact Info) Description 04/13/2011 4:24 PM VAULT INSTALLER - 04/13/2011 11:59 PM VAULT INSTALLER Hospital Encounter [facility] Estela Daly MD [address] [place] [address] Urinary tract infection Social History Tobacco Use Types Packs/Day Years Used Date Smoking Tobacco: Never Assessed Comments Unknown Sex and Gender Information Value Date Recorded Sex Assigned at Not on file Legal Sex Female 11:28 PM VAULT INSTALLER Gender Identity Not on file Sexual Orientation Not on file documented as of this encounter Plan of Treatment Not on file documented as of this encounter Visit Diagnoses Diagnosis Urinary tract infection Urinary tract infection, site not specified documented in this encounter
--- OUTSIDE RECORDS SUMMARY | 2024-05-10 20:54 | XMS_ITS | Encounter Summary ---
Author Organization [facility] Healthcare Address [address] [place] [address] Care Team Providers Care Suspender Maker Name Role Phone Unavailable Primary Care Provider Unavailabl e Encounter Details Date Type Department Care Team (Late st Contact Info) Description 01/02/2014 8:46 AM CDT - 01/02/2014 10:34 AM CDT Hospital Encounter [facility] Farzad Chao MD 1 [facility] [place] [address] [place] [address] Headache Social History Tobacco Use Types Packs/Day Years Used Date Smoking Tobacco: Never Assessed Comments Unknown Sex and Gender Information Value Date Recorded Sex Assigned at Not on file Legal Sex Female 11:28 PM DANCE INSTRUCTOR Gender Identity Not on file Sexual [...] 01/02/2014 3:[address] [place] ?[id number] ??Acc#: ??[id number] DATE OF EXAM: ??Jan 02 2014 CLINICAL [...] ??Jan 02 2014 ??3:14P Ordering DR: DR FARZDA GARCIA Attending DR: DR VENKAT POND Procedure Note Provider, MD Kodi - 09/07/[place] [id number] Acc#: [id number] DATE OF EXAM: Jan 02 2014 CLINICAL [...]
--- OUTSIDE RECORDS SUMMARY | 2024-05-10 20:54 | XMS_ITS | Encounter Summary ---
Author Organization [facility] Healthcare Address [address] [place] [address] Care Team Providers Care Behavioral Medical Director Name Role Phone Unavailable Primary Care Provider Unavailabl e Encounter Details Date Type Department Care Team (Late st Contact Info) Description 04/15/2010 4:00 PM ANTHROPOLOGIST - 04/15/2010 4:35 PM ANTHROPOLOGIST Hospital Encounter [facility]IC[facility] Naseem Andino MD [address] [facility] [address] [place] [address] Estela Saenz MD [address] [facility] 8 [place] [address] Sprain of wrist; Fall Social History Tobacco Use Types Packs/Day Years Used Date Smoking Tobacco: Never Assessed Comments Unknown Sex and Gender Information Value Date Recorded Sex Assigned at Not on file Legal Sex Female 11:28 PM ANTHROPOLOGIST Gender Identity Not on file Sexual Orientation Not on file documented as of this encounter Plan of Treatment Not on file documented as of this encounter Visit Diagnoses Diagnosis Sprain of wrist Sprain and strain of unspecified site of wrist Fall Unspecified fall documented in this encounter
--- OUTSIDE RECORDS SUMMARY | 2024-05-10 20:54 | XMS_ITS | Encounter Summary ---
Author Organization [facility] Healthcare Address [address] [place] [address] Care Team Providers Care Floorleader Name Role Phone Unavailable Primary Care Provider Unavailabl e Encounter Details Date Type Department Care Team (Late st Contact Info) Description 10/24/2007 2:55 PM CDT - 10/24/2007 4:00 PM CDT Hospital Encounter [facility] JESSICACONNaseem Gonsalves MD [address] [facility] [address] [place] [address] Estela Saenz MD [address] [facility] [address] [place] [address] Social History Tobacco Use Types Packs/Day Years Used Date Smoking Tobacco: Never Assessed Comments Unknown Sex and Gender Information Value Date Recorded Sex Assigned at Not on file Legal Sex Female 11:28 PM FINE ARTS PACKER Gender Identity Not on file Sexual Orientation Not on file documented as of this encounter Plan of Treatment Not on file documented as of this encounter Visit Diagnoses Not on filedocumented in this encounter
--- OUTSIDE RECORDS SUMMARY | 2024-05-10 20:54 | XMS_ITS | Encounter Summary ---
Author Organization [facility] Healthcare Address [address] [place] [address] Care Team Providers Care Plant Quality Manager Name Role Phone Unavailable Primary Care [...] on file Legal Sex Female 11:28 PM HEALTH TECHNICAL WRITER Gender Identity Not on file Sexual Orientation Not on file documented as of this encounter Plan of Treatment Not on file documented as of this encounter Visit Diagnoses Not on filedocumented in this encounter
== END 2024-05-03 09:20 | disposition home or self-care (01) ==
PROVIDERS: Emergency Provider Nurse Practitioner Family
DX: M79.644 Pain in right finger(s) (principal)
CPT/HCPCS: 73140; 99213; G0463

== ENCOUNTER 2024-09-14 16:37 | Emergency (ER) | payer OTHER, SELFPAY ==
--- OUTSIDE RECORDS SUMMARY | 2024-09-14 16:39 | XMS_ITS | Referral Summary ---
Author Organization [facility] Address [address] [place] [address] Care Team Providers Care Slab Worker Name Role Phone Jarred Roy MD Unavailable [phone] EyersElma NP Unavailable No, Physician Primary Care Provider [phone] Allergies No known active allergies Medications vitamin ferrous fumarate-folic () 28 mg iron- 800 mcg tablet Take 1 tablet every day by oral route. 4 Active acetaminophen (TYLENOL) 325 mg tablet Take 2 tablets (650 mg total) by mouth every 6 (six) hours as needed for pain 30 tablet 4 Active Additional Information Patient not taking.Reported on 05/22/2024 topiramate (TOPAMAX) 50 mg tablet Take 1 tablet (50 mg total) by mouth 2 (two) times a day 4 Active Active Problems Problem Noted Date Diagnosed Date [...] interval tubal. To be set up in [facility] for interval tubal. DMPA as bridge. # MOF: Formula feeding. Urine drug screen not indicated. Patient informed of results: N/A. # Post DVT prophylaxis: The patient has the following MAJOR risk factors BMI >/= 40 and the following MINOR risk factors none. enoxaparin 40 mg BID ordered for VTE prophylaxis. # Disposition: Follow up task sent to [facility] scheduling pool for appointments in 2 and 6 weeks. Desires discharge home today. #Rh neg: s/p Rhogam 01/17/24, for Rhogam prior to d/c #Headache: controlled on topomax outside of , Mg/B6 during , compazine PRN Service Coverage These phones are service phones and carried 28/11 in house: R1 (first call) [phone] R1 alt (second call) [phone] R4 (Chief) [phone] Proteinuria complicating in first trim brennan 10/04/2023 [...] Iron deficiency 11/19/2018 Migraine 11/19/2018 Astigmatism 09/18/2018 Hmvu-eu-wver spots 09/18/2018 Vitamin D deficiency 09/18/2018 Chronic [...] trimester 10/04/2023 04/18/2024 Overview (03/27/2024): [x] Full [facility] Care as of 12/13/2023 [x] [employer] email sent 12/12 Referring Provider: Janett Robles [phone] [] or Medicare Insurance [x] Dating Criteria: [...] positive [x] testing: weekly at 34 weeks / obesity [x] RSV: rx placed 02/14/2024 Counseling [...] makes. She is considering exclusively pumping. [x] Sports Reporter: [x] PP Depression Discussed: History of hemrachelle [...] # Disposition: Follow up task sent to [facility] scheduling pool. Continue routine care. Pt prefers [...] [x] Method of feeding: Plans breast [] Sports Reporter: [] Car seat: [] PP Depression Counseling [x] Attg visits (11/08) Closed nondisplaced fracture of medial cuneiform of right foot 06/03/2019 10/04/2023 Obesity 12/16/2016 08/26/2021 Overview (07/16/2021): - BMI 38 - A1c 03/2020 4.6 - GTT 91 - 3T growth 40% Plan: [] Routine PNC Immunizations Immunization Administration Dates Next Due DTaP 12/17/2004, 1,1999,06/24,1999 [...] drink = 0.6 oz pur e alcohol) [facility] Utilities Answer Date Recorded In the [...] attend chur ch or hoahaoism services? Never 04/04/2024 Do you belong to any clubs o r organizations such as holiness groups, unions, fraternal or athletic groups, or [...] in a prison (including now)? No 07/21/2021 [place] Depression Scale Answer Date Recorded [place] Depression Scale Total 6 05/22/2024 The thought of harming myself has occurred to me . Never 05/22/2024 Housing Stability Vital Sign Answer Abraham e Recorded In the last 12 months, was t here a time when you were not able to pay the mortgage or rent on time? No 04/04/2024 In the past 12 months, how m any times have you moved where you were living? 1 04/04/2024 At any time in the past 12 m [facility], were you homeless or living in [...] on file Legal Sex Female 11:28 PM PROTECTOR PLATE ATTACHER Gender Identity Not on file Sexual Orientation Not on file Last Filed Vital Signs Vital Sign Reading Time Taken Comments Blood Pressure 126/82 05/22/2024 10:32 AM PROTECTOR PLATE ATTACHER Pulse 74 05/22/2024 10:32 AM PROTECTOR PLATE ATTACHER Temperature 36.5 C (97.7 F) 04/04/2024 7:39 AM PROTECTOR PLATE ATTACHER Respiratory Rate 16 04/04/2024 7:39 AM PROTECTOR PLATE ATTACHER Oxygen Saturation 99% 05/22/2024 10: 32 AM PROTECTOR PLATE ATTACHER Inhaled Oxygen Concentration - - Weight 138.2 kg (304 lb 9.6 oz) 025 10:32 AM PROTECTOR PLATE ATTACHER Height 165.1 cm (5' 5 ) 05/22/2024 10:3 2 AM PROTECTOR PLATE ATTACHER Body Mass Index 50.69 05/22/2024 10:32 AM PROTECTOR PLATE ATTACHER Plan of Treatment Not on file Procedures Procedure Name Priority Date/Time Associated Diagnosis Comments HEPATITIS C ANTIBODY Routine 09/18/2023 from Last 3 Months or Most Recently Relevant to Health Maintenance Results * Hepatitis C antibody Blood (09/18/2023) SCRIBED HCV ab non-reacti ve Blood Janett Robles NP LAB MICROBIOLOGY - GENERAL O RDERABLES Final Result from Last 3 Months or Most Recently Relevant to Health Maintenance Insurance [facility] [place] [address] [address] [place] [address] HEALTHCARE PPO [facility] PPO [facility] Advance Directives For more information, please contact: [phone] * Full Code (Latest Code Status on [...] 1:28 PM 12/16/2019 8:31 PM Care Teams Slab Worker Relationship Specialty Start Date End Date No, Physician PCP - General 12/03/23 Jarred Roy MD [address] [facility] [address] [address] 01/30/19 Elma Echevarria NP [address] [facility] [address] [address] Nurse Practitioner General Surgery 12/16/19
--- OUTSIDE RECORDS SUMMARY | 2024-09-14 16:39 | XMS_ITS | Clinical Summary ---
Author Organization [facility] Address [address] [place] [address] Care Team Providers Care Plastic Maker Name Role Phone Jarred Roy MD Unavailable [phone] EyersElma NP Unavailable No, Physician Primary Care Provider [phone] Allergies No known active allergies Medications vitamin [...] Disposition: Follow up task sent to [facility] scheduling pool for appointments in 2 and 6 weeks. Desires discharge home today. #Rh neg: s/p Rhogam 01/17/24, for Rhogam prior to d/c #Headache: controlled on topomax outside of , Mg/B6 during , compazine PRN Service Coverage These phones are service phones and carried 28/11 in house: R1 (first call) [phone] R1 alt (second call) [phone] R4 (Chief) [phone] Proteinuria complicating in first trim brennan 10/04/2023 [...] Iron deficiency 11/19/2018 Migraine 11/19/2018 Astigmatism 09/18/2018 Vabz-aq-wijg spots 09/18/2018 Vitamin D deficiency 09/18/2018 Chronic [...] 10/04/2023 04/18/2024 Overview (03/27/2024): [x] Full [facility] Care as of 12/13/2023 [x] [employer] email sent 12/12 Referring Provider: Janett Robles [phone] [] or Medicare Insurance [x] Dating Criteria: [...] makes. She is considering exclusively pumping. [x] Landfill Grader: [x] PP Depression Discussed: History of hemrachelle [...] Follow up task sent to [facility] scheduling pool. Continue routine care. Pt [...] [x] Method of feeding: Plans breast [] Landfill Grader: [] Car seat: [] PP Depression Counseling [...] EOB appts Plan: [] CTM BP closely Supervision of [...] drink = 0.6 oz pur e alcohol) [facility] Utilities Answer Date Recorded In the past 12 months has [employer], gas, oil, or water [employer] threatened to shut off services in your [...] often do you attend chur ch or gnosticist services? Never 04/04/2024 Do you belong to [...] in a long-term (including now)? 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 Gender Identity Not on file Sexual [...] Amanda Linares MD Complications:Post He morrhage Delivery Location:[facility] Main C [facility] ([facility] 58LD) 2023 Term 39w 0d 11h 01m 10h 40m/0h 14m/0h 07m 3.54 kg (7 lb 12.9 oz) M Vagina l Epidur al Y Livin g [address], Usha balderraam MD Complications:None Delivery Location:[facility] Main C amp[facility] ([facility] 58LD) Last Filed Vital Signs Vital Sign Reading Time Taken Comments Blood Pressure 126/82 05/22/2024 10:32 AM HAND PRINTED CIRCUIT BOARD ASSEMBLER Pulse 74 05/22/2024 10:32 AM HAND PRINTED CIRCUIT BOARD ASSEMBLER Temperature 36.5 C (97.7 F) 04/04/2024 7:39 AM HAND PRINTED CIRCUIT BOARD ASSEMBLER Respiratory Rate 16 04/04/2024 7:39 AM HAND PRINTED CIRCUIT BOARD ASSEMBLER Oxygen Saturation 99% 05/22/2024 10: 32 AM HAND PRINTED CIRCUIT BOARD ASSEMBLER Inhaled Oxygen Concentration - - Weight 138.2 kg (304 lb 9.6 oz) 025 10:32 AM HAND PRINTED CIRCUIT BOARD ASSEMBLER Height 165.1 cm (5' 5 ) 05/22/2024 10:3 2 AM HAND PRINTED CIRCUIT BOARD ASSEMBLER Body Mass Index 50.69 05/22/2024 10:32 AM HAND PRINTED CIRCUIT BOARD ASSEMBLER Plan of Treatment Health Maintenance Due Date Last Done Comments Cervical Cancer Screening 1999 Regular Well Visit/Exam 18-64 2017 Covid-19 Vaccine ( season) 2024 07/21/2021 Depression Screening 05/22/2025 05/22/2024 DTaP/Tdap/Td Vaccine (10 - Td or Tdap) 01/16/2034 01/17/2024, 05/17/2021, 06/25/2019, Additional history exists Hepatitis B Screening Completed 02/09/2001 , 01/14/2000, 1999 Varicella Vaccines Completed 07/09/2009, 02/22/2000 HPV Vaccines [...] Most Recently Relevant to Health Maintenance Insurance [facility] [employer] PPO [employer] PPO [facility] Advance Directives For more information, please contact: [phone] * Full Code (Latest Code Status on [...] 1:28 PM 12/16/2019 8:31 PM Care Teams Plastic Maker Relationship Specialty Start Date End Date No, Physician PCP - General 12/03/23 Jarred Roy MD [address] [facility] [address] [address] 01/30/19 Elma Echevarria NP [address] [facility] [address] [address] Nurse Practitioner General Surgery 12/16/19
--- NOTE | 2024-09-14 16:40 | ED_ITS ---
HPI - Extremity Problem General Chief complaint: Extremity Injury, Lower Stated complaint: big toe right foot infected Time Seen by Provider: 09/14/24 16:50 Source: patient and RN notes reviewed Mode of arrival: ambulatory Limitations: dementia History of Present Illness HPI Narrative: 24-year-old female presents concern for pain, redness, swelling to the medial edge of the nail bed of the 1st digit of the right foot. She reports 3 days of symptoms. Reports there is some drainage on the Band-Aid when she takes it off, otherwise it is not draining. She reports she has been doing warm soaks and Neosporin. MD Complaint: extremity pain Related Data Home Medications ?Medication ?Instructions ?Recorded ?Confirmed ?Last Taken ?Type norgestimate 0.25 mg-ethinyl tablet 09/14/24 Unknown History estradiol 0.035 mg tablet (Estarylla) topiramate 25 mg tablet mg 09/14/24 Unknown History Allergies Allergy/AdvReac Type Severity Reaction Status Date / Time No Known Allergies Allergy Verified 05/03/24 09:08 Review of Systems Review of Systems: CONSTITUTIONAL: Denies malaise, chills, sweats, or fever. EYES: Denies redness, or discharge. ENT: Denies rhinorrhea, congestion, swollen lips, swollen tongue CARDIOVASCULAR: Denies chest pain, palpitations, or edema. RESPIRATORY: Denies cough or dyspnea. GASTROINTESTINAL: Denies abdominal pain, nausea, vomiting SKIN: Reports redness, swelling, pain to the medial edge of the nail bed of the 1st digit of the right foot. Denies purulent drainage, vesicles, bullae, numbness, pain beyond proportion MUSCULOSKELETAL: Denies joint pain or myalgia. NEUROLOGIC: Denies headache. All systems reviewed & are unremarkable except as noted in HPI and below PMFSH Past Medical History Medical History Patient denies medical problems Surgical History Surgical History Hx of tonsillectomy Family History Family History Other Hypertension Social History Social History Smoking status: Never smoker Alcohol intake: never Gender identity (if verbalized by the patient): Female Sexual Orientation (if Verbalized by the Patient): Straight or Heterosexual Spiritual care concerns: No Comments At time of signature, agree with nursing past medical, surgical, social and family history. There is no relevant family history pertinent to the presenting complaint Exam Narrative: GENERAL: Well-appearing, well-nourished, and in no acute distress. HEAD: Normocephalic, atraumatic. EYES: PERRLA, conjunctivae clear ENT: Mucous membranes moist. NECK: Supple. No lymphadenopathy CHEST: Clear to auscultation. No respiratory distress. HEART: Regular rate and rhythm. SKIN: Warm, dry. Erythema, induration, tenderness, warmth with sharp margins noted medial edge of the nail bed of the 1st digit of the right foot without fluctuation. No vesicles, bullae, necrosis, ecchymosis, crepitus noted. NEURO: Alert and oriented x3. PSYCH: Normal mood and affect Course Course Emergency Course: Patient is aware of diagnosis, understands and agrees to treatment plan. Anticipatory guidance given. Patient agrees to follow-up as directed and is aware of reasons to seek care at the emergency department. Portions of this record may have been created with voice recognition software Level of Care: Express Care Visit Vital Signs Vital signs: Reviewed. MDM - Extremity (Nontraumatic) MDM Narrative Medical decision making narrative: I evaluated this patient in the express care. History is obtained from patient who is an independent historian and physical exam was performed.? Available medical records were reviewed. ? Exam findings and relevant testing show no acute concerns or changes; patient is non-toxic appearing and is in no distress. ? Differential diagnosis and treatment plan were discussed with the patient. Patient agrees with discussion and after shared medical decision making agrees with plan of care. All questions were answered to the patient's satisfaction. Patient is appropriate for outpatient treatment and follow-up. Critical Care Time Critical Care Time Critical Care Time: No Discharge Plan Discharge Clinical Impression: Paronychia Patient Disposition: Home Condition: Stable Instructions: Paronychia (ED) Additional Instructions: Soak your nail: Soak your nail in a mixture of equal parts vinegar and water 3 or 4 times each day. This will help decrease inflammation. Apply a warm compress: Soak a washcloth in warm water and place it on your nail. This will help decrease inflammation. Elevate: Raise your nail above the level of your heart as often as you can. This will help decrease swelling and pain. Prop your nail on pillows or blankets to keep it elevated comfortably. Use lotion: Apply lotion after you wash your hands. This will prevent your skin from becoming too dry. Please follow-up with your primary care doctor in the next 1-2 days. If you cannot follow-up with your primary care doctor please go to the ED for any urgent issues. 2) If you have any worsening of symptoms or any other concerns please go to the ED immediately. 3) Please take medications as prescribed andcontinue taking your home medications as usual. Patient Language: Malagasy Prescriptions: New sulfamethoxazole-trimethoprim 800-160 mg tablet 1 tablet PO Q12H 7 Days Qty: 14 0RF No Action norgestimate-ethinyl estradiol [Estarylla] 0.25-0.035 mg tablet topiramate 25 mg tablet Follow-up/Referrals: PHYSICIAN,RESEARCH HOME ECONOMIST [Primary Care Provider] - Time of Disposition: 17:00
--- OUTSIDE RECORDS SUMMARY | 2024-09-14 16:40 | XMS_ITS | Data Portability ---
Author Organization [facility]ER[facility]ac Address [address] [place] [address] Care Team Providers Care Fingernail Sculpturer Name Role Phone COREY GLENNA Primary Care Provider [phone] Assessment Encounter Date Assessment Date Assessment LastModified by Organization Details LastModified Time 06/13/2024 06/13/2024 Will schedule with Jacob for tubal ligation [email or web address] Not available 06/13/2024 11:08:52 Plan of Treatment Reminders Order Date Submit Date Provider Last Modified By Organization Details Last Modified Time Details Appointments None recorded. Lab Mycobacte rium tuberculo sis stimulate d gamma interfero n, qual, blood 2024 025 [facility], [address] [place] [address] [address], [address], 19:09:24 urinalysi s, dipstick 2024 025 [email or web address] In-Office Order, Internal Use Only DO Not Attach Compendium DO Not Attach Compendium, Do Not Delete/merge, [id number] 16:45:31 Referral None recorded. Procedures None recorded. Surgeries None recorded. Imaging None recorded. Medication Orders Sprintec (28) 0.25 mg-0.035 mg tablet 2024 025 [id number], [address], [place], [place], [id number], 5 09:50:09 topiramat e 25 mg tablet [address] [facility] #[id number], [address], [place], [place], [id number], 09:50:04 topiramat e 50 mg tablet [address] [facility] #[id number], [address], [place], [place], [id number], 09:50:02 Patient TargetsNo targets recorded. Patient Instructions Encounter Date Encounter Id Patient Instructions Last Modified By Organization Details Last Modified Time 04/25/2024 [id number] A healthy lifestyle: care instructions [email or web address] Not available 04/25/2024 12:47:43 I was present in the office and available during the visit. I discussed the patient s presentation, findings, assessment and plan with the resident during or immediately after the time of service. I agree with the resident s findings, assessment, and plan as documented in the note above. Lonnie Castorena MD. [facility] [email or web address] Not available 04/29/2024 14:38:15 05/20/2024 [id number] A healthy lifestyle: care instructions [email or web address] Not available 05/20/2024 10:16:45 Attending Physician Attestation S: 24 yo F here to follow up on migraines. Restarted topamax 50 mg BID but now having side effects (brain fog, paresthesias). O: BP 125/83. BMI 50.3. A/P: Migraines - Decrease dose of Topamax to 25 mg BID due to side effects. RTC in 3 months or sooner if not improved with decreased dose. {{I did not personally see or examine the patient with the resident. I was physically present to provide indirect supervision through entire encounter.* I personally saw the patient with the resident.}} Plan discussed with resident as documented in my brief note above. Mago De Santiago MD [email or web address] Not available 05/20/2024 10:16:27 06/13/2024 [id number] body mass index: care instructions [email or web address] Not available 06/13/2024 09:49:40 learning about healthy weight [email or web address] Not available 06/13/2024 09:49:40 06/24/2024 [id number] A healthy lifestyle: care instructions [email or web address] Not available 06/24/2024 16:11:39 Attending Physician Attestation I did not personally see or examine the patient with the resident. I was physically present to provide indirect supervision through entire encounter. I have reviewed the documentation and agree with the history, physical findings, work-up, and medical decision making as recorded. Zabrina Ocampo MD [email or web address] Not available 06/24/2024 17:37:35 07/03/2024 [id number] A healthy lifestyle: care instructions [email or web address] Not available 07/03/2024 17:35:14 Reason for Referral None Reported. Results Created Date Observation Date Name Description Value Unit Range Abnormal Flag Note LastModifiedBy Organization Detail LastModifiedTime 06/24/1906/25/2024 QUANT IFERO N-TB GOLD PLUS quantiferon incubation INCUBA TION PERFOR MED. Not Available [facility] ([facility]) [address] [facility], [place], [address], 06/26/2024 19:09:24 06/24/19 25 06/25/2024 QUANT IFERO N-TB GOLD PLUS quantiferon criteria COMMEN T Quant iFERO N-TB Gold Plus is a quali tativ e indir ect test for M tuber culos is infec tion (incl uding disea se) and is inten ded for use in conju nctio n with risk asses sment , radio graph y, and other medic al and diagn ostic evalu ation s. The Quant iFERO N-TB Gold Plus resul t is deter mined by subtr actin g the Nil value from eithe r TB antig en (Ag) value . The Mitog en tube serve s as a contr ol for the test. Not Available [facility] ([facility]) [address] [facility], [place], [address], 06/26/2024 19:09:24 06/24/19 25 06/26/2024 QUANT IFERO N-TB GOLD PLUS quantiferon- TB gold plus NEGATI VE negati ve No respo nse to M tuber culos is antig ens detec polly. Infec tion with M rani mayer is is unlik rebeca, but high risk indiv idual s shoul d be consi dered for addit ional testi ng (ATS/ IDSA/ CDC Clini hector Pract ice Guide lines , 2017) . The refer ence range is an Antig en minus Nil resul t of <0.35 IU/mL . Chemi lumin escen ce immun oassa y metho dolog y Not Available [facility] ([facility]) [address] [place], [address], 06/26/2024 19:09:24 06/24/19 25 06/26/2024 QUANT IFERO N-TB GOLD PLUS quantiferon TB1 Ag value 0.04 IU/mL Not Available [facility] ([facility]) [address] [place], [address], 06/26/2024 19:09:24 06/24/19 25 06/26/2024 QUANT IFERO N-TB GOLD PLUS quantiferon TB2 Ag value 0.04 IU/mL Not Available [facility] ([facility]) [address] [place], [address], 06/26/2024 19:09:24 06/24/19 25 06/26/2024 QUANT IFERO N-TB GOLD PLUS quantiferon nil value 0.03 IU/mL Not Available [facility] ([facility]) [address] [place], [address], 06/26/2024 19:09:24 06/24/19 25 06/26/2024 QUANT IFERO N-TB GOLD PLUS quantiferon mitogen value >10.00 IU/mL Not Available [facility] ([facility]) [address] [place], [address], 06/26/2024 19:09:24 06/24/19 25 06/24/2024 urina lysis , dipst ick Leukocytes Negati ve Not Available In-Office Order Internal Use Only DO Not Attach Compendium DO Not Attach Compendium, Do Not Delete/merge, 06/24/2024 16:09:16 06/24/19 25 06/24/2024 urina lysis , dipst ick Nitrite negati ve Not Available In-Office Order Internal Use Only DO Not Attach Compendium DO Not Attach Compendium, Do Not Delete/merge, 06/24/2024 16:09:16 06/24/19 25 06/24/2024 urina lysis , dipst ick Urobilinogen 1 Not Available In-Of fice Order Internal Use Only DO Not Attach Compendium DO Not Attach Compendium, Do Not Delete/merge, 06/24/2024 16:09:16 06/24/19 25 06/24/2024 urina lysis , dipst ick Protein Trace Not Available In-Office Order Internal Use Only DO Not Attach Compendium DO Not Attach Compendium, Do Not Delete/merge, 06/24/2024 16:09:16 06/24/19 25 06/24/2024 urina lysis , dipst ick pH 7.0 Not Available In-Office Order Internal Use Only DO Not Attach Compendium DO Not Attach Compendium, Do Not Delete/merge, 06/24/2024 16:09:16 06/24/19 25 06/24/2024 urina lysis , dipst ick Blood Negati ve Not Available In-Office Order Internal Use Only DO Not Attach Compendium DO Not Attach Compendium, Do Not Delete/merge, 06/24/2024 16:09:16 06/24/19 25 06/24/2024 urina lysis , dipst ick Specific [place] 1.025 Not Available In-Off ice Order Internal Use Only DO Not Attach Compendium DO Not Attach Compendium, Do Not Delete/merge, 06/24/2024 16:09:16 06/24/19 25 06/24/2024 urina lysis , dipst ick Ketone Negati ve Not Available In-Office Order Internal Use Only DO Not Attach Compendium DO Not Attach Compendium, Do Not Delete/merge, 06/24/2024 16:09:16 06/24/19 25 06/24/2024 urina lysis , dipst ick Bilirubin Negati ve Not Available In-Office Order Internal Use Only DO Not Attach Compendium DO Not Attach Compendium, Do Not Delete/merge, [id number] 06/24/2024 16:09:16 06/24/19 25 06/24/2024 urina lysis , dipst ick Glucose Negati ve Not Available In-Office Order Internal Use Only DO Not Attach Compendium DO Not Attach Compendium, Do Not Delete/merge, [id number] 06/24/2024 16:09:16 06/24/19 25 06/24/2024 urina lysis , dipst ick Appearance Clear Not Available In-Offi ce Order Internal Use Only DO Not Attach Compendium DO Not Attach Compendium, Do Not Delete/merge, [id number] 06/24/2024 16:09:16 06/24/19 25 06/24/2024 urina lysis , dipst ick Color Yellow Not Available In-Office Order Internal Use Only DO Not Attach Compendium DO Not Attach Compendium, Do Not Delete/merge, [id number] 06/24/2024 16:09:16 Result Notes None recorded. Problems Name Problem SNOMED Code Status Onset Date Resolution Date Notes Provider Name and Address Organization Details Recorded Time Migraine without aura 30025999 Completed 201903/12/2020 YUNI Hightower NP Attn: Accounting ,[address] [place], [address] , [place] [facility] 0 10:03:35 Adult health examinat ion Completed 201903/12/2020 YUNI Hightower NP Attn: Accounting ,[address] [place], [address] , [place] [facility] 10:03:21 Loss of hair 414482838 Completed 201903/12/2020 YUNI Hightower NP Attn: Accounting ,[address] [place], [address] , [place] [facility] 10:03:33 Posterio r rhinorrh ea 69325765 Completed 201903/12/2020 YUNI Hightower NP Attn: Accounting ,[address] [facility], [place], [address] , [place] [facility] 0 10:03:39 Facial swelling 156063367 Completed 201903/12/2020 YUNI Hightower NP Attn: Accounting ,[address] [facility], [place], [address] , [place] [facility] 0 10:03:31 Pregnanc y 64372006 Completed 202008/02/2021 Glenna Mahajan MD Attn: Accounting ,[address] [facility], [place], [address] , [facility] - [facility] 4 12:18:22 Family history of Spina bifida 331549798 Completed sister of patient has Spina bifida and CP. Pt referred to [facility] for co manageme nt. Started pt on addition al 400 mcg of folic acid with PNV. TUTU Nguyen Attn: Accounting ,[address] [facility], [place], [address] , [place] [facility] 2 15:29:26 Low back pain in pregnanc y 43577332815 06 Completed Pt educated on manageme nt options and importan ce of stretchi ng and massage. Pt opts for PT referral . maternit y belt ordered. Pt educated on warning signs and when to call office. Pt also notified when to go to [facility]. RTC in 4 weeks and call office if issues occur. TUTU Nguyen Attn: Accounting ,[address] [facility], [place], [address] , [place] [facility] 2 15:29:26 RhD negative 322339653 Completed aware of need for routine rhoGAM and as needed if issues occur. TUTU Nguyen Attn: Accounting ,[address] [facility], [place], [address] , [place] [facility] 2 15:29:26 Urinary tract infectio us disease 83610625 Completed 03/12/2020 YUNI Hightower NP Attn: Accounting ,[address] [facility], [place], [address] , [place] [facility] 0 10:03:41 Otalgia 93866401 Completed 06/25/2019 Venecia vasquez[place] [facility] 0 10:46:29 Morbid obesity 026974818 Completed 03/12/2020 Glenna Mahajan MD Attn: Accounting ,[address] [facility], [place], [address] , [place] [facility] 4 09:49:38 Morbid obesity 776477023 Active 2023 pt educated on risk and discusse d safe lifestyl e modifica tions in pregnanc y. Pt to see obgyn here and co-manag e with [facility] Janie Antonio MD Attn: Accounting ,[address] [facility], [place], [address] , [place] [facility] 5 21:47:21 Headache 13637658 Active 2023 Glenna Mahajan MD Attn: Accounting ,[address] [facility], [place], [address] , [place] [facility] 4 09:49:50 Pregnanc y 58636401 Completed 202304/25/2024 Glenna Mahajan MD Attn: Accounting ,[address] [facility], [place], [address] , [place] [facility] 4 12:18:22 Family history of Spina bifida 335386428 Completed co manage with [facility] Janie Antonio MD Attn: Accounting ,[address] [facility], [place], [address] , [place] [facility] 5 21:47:21 Morbid obesity 055997406 Completed 2023 pt educated on risk and discusse d safe lifestyl e modifica tions in pregnanc y. Pt to see obgyn here and co-manag e with [facility] Janie Antonio MD Attn: Accounting ,[address] [facility], [place], [address] , [place] [facility] 5 21:47:21 RhD negative 646428068 Completed educated on need of rhoGAM and timing of injectio ns Janie Antonio MD Attn: [facility] ,[address] [place], [address] , [facility] - [facility] 5 21:47:21 Past pregnanc y history of postpart um hemorrha ge 369185777 Completed co manage with mfm and obgyn Janie Antonio MD Attn: [facility] ,[address] [place], [address] , [facility] - SI 5 21:47:21 Migraine 89777456 Completed mfm stopped topirama te and start tylenol Janie Antonio MD Attn: [facility] ,[address] [place], [address] , [facility] SI 21:47:21 Proteinu hailee 43737708 Completed Janie Antonio MD Attn: [facility] ,[address] [place], [address] , [facility] - SI 5 21:47:21 Group B Streptoc occus carrier 08972036035 03 Completed GBS in urine 09/18/23 Janie Antonio MD Attn: [facility] ,[address] [place], [address] , [facility] - SI 5 21:47:21 Varicell a non-immu ne 574104285 Completed Recommen d vaccine after delivery . Janie Antonio MD Attn: [facility] ,[address] [place], [address] , [facility] - [facility] 21:47:21 Migraine 95967938 Active mfm stopped topirama te and start tylenol Janie Antonio MD Attn: [facility] ,[address] [place], [address] , [facility] - [facility] 21:47:21 Vitamin D deficien cy 10959791 Completed 03/12/2020 YUNI Hightower NP Attn: [facility] ,[address] [place], [address] , [place] [facility] 0 10:03:44 Astigmat ism 55997789 Completed 03/12/2020 YUNI Hightower NP Attn: Accounting ,[address] [facility], [place], [address] , [place] [facility] 0 10:03:46 Caf au lait spots 762322267 Completed 06/25/2019 Venecia vasquez[place] [facility] 10:46:04 Acute sinusiti s 36775605 Completed 03/12/2020 YUNI Hightower NP Attn: Accounting ,[address] [facility], [place], [address] , [place] [facility] 0 10:03:19 Headache 35927285 Completed 06/25/2019 Glenna Mahajan MD Attn: Accounting ,[address] [facility], [place], [address] , [facility] - [facility] 4 09:49:50 Problem Notes None recorded. Procedures Surgical History Date Name Laterality Status Provider Name and Address Organization Details Recorded Time 07/25/19 24 Date of Last Pap Smear completed DELPHINE Tyson [place] 07/25/2023 14:13:14 05/08/19 13 Tonsillectomy completed Amanda Orr [place] 07/02/2014 10:50:27 05/08/19 13 Adenoidectomy completed Amanda Orr [place] 07/02/2014 10:50:27 biopsy of skin completed DELPHINE Tyson [place] 07/25/2023 14:14:32 Imaging Results None [...] Not Available acetamino phen 325 mg tablet 05/20 completed Patient is not taking. Not Available Not Available Not Available clindamyc in HCl 300 mg capsule [...] Not Available topiramat e 25 mg tablet TAKE 1 TABLET BY MOUTH TWICE DAILY 2024 active Not Available Not Available Not Avai lable bacitraci n zinc 500 unit/gram topical ointment 06/25 completed Not Available Not Available Not Available sulfameth oxazole 800 mg-trimet hoprim 160 mg tablet TAKE 1 TABLET BY MOUTH TWICE DAILY FOR 7 DAYS 12/20 completed Not Available Not Available Not Available aspirin 81 mg tablet,de layed release TAKE 1 TABLET BY MOUTH DAILY 05/20 completed Patient is not taking. Not Available Not Available Not Available acetamino phen 500 mg tablet TAKE 2 TABLETS BY MOUTH EVERY 6 HOURS NEEDED FOR PAIN 12/20 completed Not Available Not Available Not Available amoxicill in 875 mg tablet TAKE 1 TABLET BY MOUTH TWICE DAILY FOR 7 DAYS 02/01 completed Not Available Not Available Not Available famotidin e 20 mg tablet 05/20 completed Patient is not taking. Not Available Not Available Not Available magnesium oxide 400 mg (241.3 mg magnesium ) tablet TAKE 1 TABLET BY MOUTH EVERY DAY 05/20 completed Patient is not taking. Not Available Not Available Not Available cephalexi n 500 mg capsule TAKE 1 CAPSULE BY MOUTH TWICE DAILY FOR 7 DAYS 10/29 completed Not Available Not Available Not Available oseltamiv ir 75 mg capsule 06/25 completed Not Available Not Available Not Available lidocaine 5 % topical patch 05/20 completed Patient is not taking. Not Available Not Available Not Available polymyxin [...] MOUTH EVERY 6 HOURS NEEDED FOR PAIN 05/20 completed Patient is not taking. Not Available Not Available Not Available polyethyl rebekah glycol 3350 17 gram/dose [...] e 50 mcg/actua tion nasal spray,[facility] [place] 1 spray every day by intranas al route. 03/12 completed Not Available Not Available Not Available medroxypr ogesteron e 150 mg/mL intramusc ular suspensio n Inject 1 mL every 3 months by intramus cular route. 06/13 completed Not Available Not Available Not Available [...] e 50 mg tablet Take 1 tablet every day by oral route. 06/13 completed Not Available Not Available Not Available FeroSul 325 mg (65 mg iron) tablet TAKE 1 TABLET BY MOUTH DAILY WITH BREAKFAS T 12/20 completed Not Available Not Available Not Available 28 mg iron-800 mcg tablet TAKE 1 TABLET BY MOUTH ONCE DAILY 05/20 completed Patient is not taking. Not Available Not Available Not Available Estarylla 0.25 mg-0.035 mg tablet TAKE 1 TABLET BY MOUTH [...] TAKE 1 TABLET BY MOUTH EVERY DAY 05/20 completed Patient is not taking. Not Available Not Available Not Available BinaxNOW COVID-19 Ag Self Test kit TEST DIRECTED TODAY 05/20 completed Patient is not taking. Not Available Not Available Not Available aspirin 81 mg capsule Take 1 [...] Updated DateTime 4 165.1 cm 50.3 kg/m2 908228. 95 g 97.7 [degF] 62 /min 18 /min 97 % 97 % 112 mm[Hg] 78 mm[Hg] Jailyn Saba [place] - [facility] 4 12:00:19 Date Recorded Body height Body mass index (BMI) Body weight Body temperature Respiratory rate Oxygen saturation Oxygen saturation in Arterial blood by Pulse oximetry Heart rate Systolic blood pressure Diastolic blood pressure Provider Name and Address Organization Details Last Updated DateTime 5 165.1 cm 50.3 kg/m2 552674. 25 g 97.7 [degF] 18 /min 99 % 99 % 64 /min 125 mm[Hg] 83 mm[Hg] Jailyn Saba [place] - [facility] 5 09:25:32 Date Recorded Body height Body mass index (BMI) Body weight Systolic blood pressure Diastolic blood pressure Provider Name and Address Organization Details Last Updated DateTime 06/13/2024 165.1 cm 50.4 kg/m2 113443.4 9 g 121 mm[Hg] 82 mm[Hg] DELPHINE Tyson [place] - [facility] 5 09:06:52 Date Recorded Body height Body mass index (BMI) Body weight Body temperature Respiratory rate Heart rate Oxygen saturation Oxygen saturation in Arterial blood by Pulse oximetry Systolic blood pressure Diastolic blood pressure Provider Name and Address Organization Details Last Updated DateTime 5 165.1 cm 50.7 kg/m2 210215. 88 g 97.8 [degF] 18 /min 80 /min 98 % 98 % 113 mm[Hg] 78 mm[Hg] Jailyn Saba [place] [facility] 5 15:32:46 Date Recorded Body height Body mass index (BMI) Body weight Heart rate Systolic blood pressure Diastolic blood pressure Provider Name and Address Organization Details Last Updated DateTime 5 165.1 cm 50.8 kg/m2 088393. 96 g 69 /min 112 mm[Hg] 78 mm[Hg] Betra avina [place] - [facility] 5 16:49:46 Social History Question Answer Notes LastModified by Organizat ion Details LastModified Time Tobacco Smoking Status Never Smoker Amanda Orr [place] null, [place] - [place] 07/02/2014 10:50:27 What Is Your Level Of Alcohol Consumption? None Information not available 12/20/2021 Animal Exposure? Yes [email or web address] Informat ion not available 07/02/2014 Do You Wear A Helmet When Biking? No [email or web address] Information not available 07/02/2014 Are You Or Have You Been Involved With Bullying? No [email or web address] Information not available 07/02/2014 What Is Your Level Of Caffeine Consumption? Moderate Information not available 05/26/2020 What Type Of Vice President And Portfolio Manager Do You Use? None [email or web address] Information not available 07/02/2014 In The 14 [...] Type Of Diet Are You Following? REGULAR [email or web address] Information not available 07/02/2014 Do You Or Have You Ever Used E-cigarettes Or Vape? Never Used Electronic Cigarettes Information not available 06/11/2020 Have There Been Any Changes To Your Family Or Social Situation? No [email or web address] Information no t available 07/02/2014 Are There Any Guns Present In Your Home? No [email or web address] Information not available 07/02/2014 What Is Your Home Situation? Both Parents Lives With Mom, Dad, 1 Brother , 1 Sister [email or web address] Information not available 07/02/2014 Do You Use Insect Repellent Routinely? Yes [email or web address] Information not available 07/02/2014 Car Seat Type Or Seat Belt? Seat Belt [email or web address] Information not available 07/02/2014 Parent Involvement? Both Parents Involved Information not available 07/02/2014 Riding In Car Front Seat? Yes [email or web address] Information not available 07/02/2014 What Was The Date Of Your Most Recent Tobacco Screening? 06/24/2024 Information not available 06/24/2024 How Many Children Do You Have? 1 Information not available 01/31/2022 What Is Your Parents' Marital Status? Information not available 07/02/2014 Pool Exposure No [email or web address] Information not available 07/02/2014 What Is Your Relationship Status? Single Information not available 01/31/2022 What Is The Name Of Your School? [employer] Information not available 05/26/2020 Are You Sexually Active? Yes Information not available 01/31/2022 Do You Have Any Siblings? 1 Bro 1 Sis [email or web address] Information not available 07/02/2014 Do You Have Smoke And Carbon Monoxide Detectors In Your Home? Yes [email or web address] Information not available 07/02/2014 Are You Passively [...] 12/20/2021 Do You Use Sunscreen Routinely? Yes [email or web address] Information not available 07/02/2014 Has Tobacco Cessation Counseling Been Provided? Yes Information not available 06/06/2022 On What Date Was Tobacco Cessation Counseling Provided? 06/24/2024 Information not available 06/24/2024 Year In School [employer] Informatio n not available 05/26/2020 Do You [...] or disability [email or web address] Not available 06/25 10:42:25 Notes:04/25/24, 05/20/24, 06/08 11/29 Medical History Condition Response Coronary Artery Disease [...] of Flow (days) 5 Current Control Method BCPs Frequency of Cycle (Q days) 28 Sexually Active? Y Menses Monthly Y Date of Last Pap Smear 07/25/2023 Sexual Problems? N LMP Approximate Desired Control Method Sterilizati on Obstetrics History GPAL:G 2 P 3 0 0 2 Type Value Full Term 3 Living 2 Total 2 Immunizations Vaccine Type Date Status Note Provider Nam e and Address Organization Details Recorded Time Influenza, split virus, trivalent, preservative 1 completed Glenna Mahajan MD Attn: Accounting[address] [facility], [place], [address], [facility] - [facility] 08/03/2023 09:14:55 Novel [id number], nasal 0 completed Glenna Mahajan MD Attn: Accounting,[address] [facility], [place], [address], [facility] - [facility] 08/03/2023 09:14:55 HPV, quadrivalent 4 completed Glenna Mahajan MD Attn: Accounting,[address] [facility], [place], [address], [facility] - [facility] 08/03/2023 09:14:55 Meningococcal MCV4O 7 completed Glenna Mahajan MD Attn: Accounting,[address] [facility], [place], [address], [facility] 08/03/2023 09:14:55 Influenza, live, quadrivalent, intranasal 4 completed Glenna Mahajan MD Attn: Accounting,[address] [facility], [place], [address], [facility] 08/03/2023 09:14:55 Influenza, live, quadrivalent, intranasal 3 completed Glenna Mahajan MD Attn: Accounting,[address] [facility], [place], [address], [facility] 08/03/2023 09:14:56 Influenza, split virus, quadrivalent, PF 9 completed Glenna Mahajan MD Attn: Accounting,[address] [facility], [place], [address], [facility] 08/03/2023 09:14:56 meningococcal B, OMV 8 completed [facility] 05[facility]25[facility]2019 02:39:19 meningococcal B, OMV 8 completed Not Available [facility] 05/25/2019 02:35:50 Influenza, split virus, quadrivalent, PF 0 completed [place]ecia [place], [place] [facility] 06/25/2019 11:07:16 Tdap 0 completed Venecialucila [place] [facility] 06/25/2019 11:07:16 Influenza, split virus, quadrivalent, preservative 1 completed Ny Amaya [place] [facility] 05/27/2020 12:26:13 Influenza, split virus, quadrivalent, PF 2 completed YUNI Hightower NP Attn: Accounting,[address] [place], [address], [place] [facility] 03/07/2022 09:40:22 DTaP 5 completed Glenna Mahajan MD Attn: Accounting,[address] [place], [address], [place] [facility] 08/03/2023 09:14:55 DTaP 0 [...] 07/01/2014 10:28:19 HPV, unspecified formulation 4 completed Gelnna Mahajan MD Attn: Accounting,[address] [place], [address], [place] [facility] 08/03/2023 09:14:55 influenza, unspecified formulation 2 completed Kristie Sant[place] [facility] 07/01/2014 10:28:46 influenza, unspecified formulation 4 completed Kristie Sant[place] [facility] 07/01/2014 10:28:46 influenza, unspecified formulation 1 completed Glenna Mahajan MD Attn: Accounting,[address] [place], [address], [place] [facility] 08/03/2023 09:14:55 influenza, unspecified formulation 3 completed Kristie Sant[place] [facility] 07/01/2014 10:28:46 MMR 5 completed Glenna Mahajan MD Attn: Accounting,[address] [facility], [place], [address], [place] [facility] 08/03/2023 09:14:55 MMR 0 completed [place]ISY [place] [facility] 07/01/2014 10:29:07 meningococcal MCV4, unspecified formulation 1 completed Kristie AvalosdenverLISY pak [place] [facility] 07/01/2014 10:29:20 IPV 0 completed Kristie Sant[place] [facility] 07/01/2014 10:29:47 IPV 5 completed Glenna Mahajan MD Attn: Accounting,[address] [facility], [place], [address], [place] [facility] 08/03/2023 09:14:55 IPV 9 completed Kristie AvalosdenverLISY pak [place] [facility] 07/01/2014 10:29:47 IPV 1 completed Kristie Sant[place] [facility] 07/01/2014 10:29:47 Tdap 0 completed Kristie Sant[place] [facility] 07/01/2014 10:30:01 varicella 0 completed Kristie Sant[place] [facility] 07/01/2014 10:30:20 varicella 0 completed Kristie AvalosdenverLISY pak [place] [facility] 07/01/2014 10:30:20 Past Encounters Encounter ID Performer Location Encounter Start Date Encounter Closed Date Diagnosis/Indication Diagnosis SNOMED-CT Code Diagnosis ICD10 Code Diagnosis Note [id number] MD Mary Lou Menard (Peds) [address] [place] [address] 07/02/2014 10:39:01 07/02/2014 12:02:58 Urinary tract infectious disease 18035401 Otalgia 86513085 due to fluid behind TM. Reassuranc e provided. Tylenol prn. Morbid obesity 563097912 weight reduction with diet and exercise [id number] MD [facility] Lou Cardona [facility] (Peds) [address] [place] [address] 08/26/2014 16:02:35 08/27/2014 08:48:12 Urinary tract infectious disease 92850760 appt for renal US on08/29/14 Morbid obesity 773034220 Vitamin D deficiency 24919458 [id number] MD Mary Lou Cardona (Peds) [address] [place] [address] 08/28/2014 09:20:30 08/28/2014 14:42:07 Well child 638109372 Morbid obesity 221247070 Urinary tr act infectious disease 93625387 appt for renal US on08/29/14 increase water to 6 cups/d Vitamin D deficiency 56786534 cont med Astigmatism 07331468 nee d new glasses, has been ordered [facility] [id number] MD Mary Lou Menard (Peds) [address] [place] [address] 03/30/2015 14:19:22 03/30/2015 17:41:52 Acute sinusitis 94749734 J01.80 [id number] [facility] [address] [place] [address] 05/29/2015 16:08:23 05/29/2015 17:13:56 Headache 43948709 R51 Work on reducing screen time. Focus on headache diary, using ibuprofen prn pain, weight reduction, exercise program. Consider stress as possible cause and perhaps start counseling . Morbid obesity 051085563 E66.01 weight reduction with diet and exercise [id number] MD Mary Lou Cardona (Peds) [address] [facility] [place] [address] 04/15/2016 14:45:18 04/21/2016 09:27:47 Upper respiratory infection 79434935 J06.9 keep nose cleaned, fever controlled with tylenol alternate with ibuprofen if temp >100 only, no cough med, warm fluid to drink, no juice, warm milk 15 oz/d advise to contact if worsening or febrile >100f, good hand hygiene Morbid obesity 185448503 E66.01 discuss about diet and exercise, sleep 10 hr, good hand hygiene, no biting fingernail s, no weight gain, drink more water, milk 2 cups/d 5-2-1-0 message discussed mom was upset about her dx, do not want to come back Chronic he adache disorder 360322594 G44.89 handout from [facility] for lifestle modificati on for freq headache, discuss about destress, wt lost plan, diary of LUND, rtc [id number] MD Mary Lou Cardona (Peds) [address] [facility] [address] 04/20/2016 11:19:50 04/22/2016 14:25:50 Hyponatremia 25132904 E87.1 balanced diet, repeat lab today Upper resp iratory infection 81306908 J06.9 keep nose cleaned, fever controlled with tylenol alternate with ibuprofen if temp >100 only, no cough med, warm fluid to drink, no juice, warm milk 15 oz/d advise to contact if worsening or febrile >100f, good hand hygiene, start z asim, has med [id number] MD Mary Lou Cardona (Peds) [address] [place] [address] 07/29/2016 09:16:17 07/29/2016 09:29:31 Active or passive immunization 941298415 Z23 [id number] MD Mary Lou Cardona (Peds) [address] [place] [address] 07/29/2016 09:47:34 08/05/2016 10:22:26 Abrasion 061007812 T14.8 keep wound dry and clean Morbid obesity 817766020 E66.01 discuss about diet and exercise, sleep 10 hr, good hand hygiene, no biting fingernail s, no weight gain, drink more water, milk 2 cups/d 5-2-1-0 message discussed mom was upset about her dx, do not want to come back Vitamin D deficiency 347 56828 E55.9 cont med [id number] MD Mary Lou Dillard (Peds) [address] [place] [address] 10/06/2016 11:21:52 10/12/2016 17:23:25 Increased body mass index 45276625 E66.9 BMI > 99 %. Pt. lost 1 lb. since last visit in 07/2016. HIV screening 322967570 Z11.4 Routine screening Chronic he adache disorder 479037252 G43.719 DDX includes migraine headaches. Keep headache journal. Advised keeping hydrated with at least 6 glasses of water/day. Can take Excedrin migraine, if no relief and pt. has severe headache, can try imitrex, but no more than twice a week. Will also refer to neurology due to chronic nature. Vitamin D deficiency 347 34007 E55.9 Will check level today. [id number] MD Mary Lou Dillard (Peds) [address] [place] [address] 02/08/2017 10:39:12 02/10/2017 10:47:31 Morbid obesity 335227068 E66.01 BMI a >99 %. Pt. did lose 7 lb since last visit, jose matias pt. Will check screening fasting labs. Declined flu at this time. Iron defic iency anemia 63325595 D50.9 Pt. started on iron for restless leg syndrome. Pt. says she was told her iron was very low. Pt. has been on iron supplement ation. Will recheck level today. Chronic he adache disorder 039478669 G43.719 Pt on topomax. Followed by neurology. Headaches have improved since being on topomax. Discussed stress management . [id number] MD Mary Lou Dillard (Peds) [address] [place] [address] 09/21/2017 14:14:13 09/22/2017 12:36:42 Spasm of back muscles 256354359 M62.830 Appears to have resolved. Monitor for future episodes. Encouraged regular physical activity to help lose weight and decrease strain on back muscles. Contact dermatitis 36660 004 L25.9 Reviewed skincare, will place on HC. Active or passive immunization 393042282 Z23 Morbid obesity 776837579 E66.01 BMI a >99 %. Pt. did lose 1 lb since last visit, jose matias pt. Screening labs done in 04/2017 wnl. HgbA1c at 4.9 02/2017. Reviewed diet and exercise program. F/u in 4-6 months. [id number] Mook Kuo MD [facility] (Peds) [address] [place] [address] 11/24/2017 09:52:24 11/27/2017 17:53:02 Active or passive immunization 536146131 Z23 [id number] MD Laurence ASCENCIO [address] [facility] [address] Singh [facility] [place] [address] 06/25/2019 09:53:47 06/26/2019 14:20:07 Vitamin D deficiency 78968791 E55.9 Chronicall y low - on/off high dose courses. Currently on high dose. Check level. Loss of hair 809627915 L 65.9 Check TSH. May be Vit D related. Consider sleep study. Posterior rhinorrhea 758 13103 R09.82 After a cold since 03/2019. Try Benadryl QHS, Cetirizine /Lynnette QAM. Flonase PRN. Check allergy profile - moved to [place]. Migraine without aura 56 898328 G43.009 chronic. Topamax 50mg works better. Flares about once every several months. Adult heal th examination 812981264 Z00.00 Flu shot today.Tdap needed for school. [id number] MD Laurence ASCENCIO 14 IM [address] [facility] [address] Singh [facility] [place] [address] 08/08/2019 08:23:20 08/09/2019 09:11:48 Facial swelling 793687812 R22.0 Hx sounds like cellulitis of eye/face. Pt to send over picture first. We will decide next step. Addendum:S welling right side of face. No conjunctiv al injection. Try Augmentin 10 days for presumptiv e preseptal cellulitis and eye drops for conjunctiv itis.If not better by day 3, urgent care. [id number] MD Laurence Francis 14 PEDS [address] [facility] [place] [address] 12/18/2019 08:42:35 12/19/2019 12:32:12 Abscess of skin and/or subcutaneous tissue 38117273 L02.91 -Continue bactrim as ordered by surgeon.-f /u with surgeon on 12/23--if fever, redness, pain or worsening symptoms please call clinic and surgeon.-r eturn this fall for flu shot. [id number] MD Laurence Akers [address] Singh [address] [place] [address] [address] 03/12/2020 09:26:01 03/13/2020 13:10:54 Cellulitis of skin 961840733 L03.90 -Continue taking antibiotic s as discussed- Will f/u on Monday-ER precaution s given-Will alert clinic for worsening pain, redness or symptoms.- Will check basic labs for recurrent abscess/ce llulitis and weight loss [id number] YUNI Hightower NP [place] [address] Singh [address] [place], [place] [address] [address] 03/16/2020 09:13:34 03/17/2020 12:34:49 Cellulitis of skin 317379207 L03.90 -Continue taking antibiotic s as discussed- ER precaution s given-Will alert clinic for worsening pain, redness or symptoms.- Will check basic labs for recurrent abscess/ce llulitis and weight loss. She states she is going today to get lab work done.-Advi sed to take a picture and upload into patient portal. Pt states she will today. [id number] MD Laurence Akers [address] Singh [address] [place], [place] [address] [address] 05/26/2020 14:17:27 05/28/2020 14:59:45 Irregular periods 64063530 N92.6 -Will send to [facility] for annual exam and irregular periods. Pt verbalized understand ing. History an d physical examination, pre-employment 272809501 Z02.1 -Cleared for employment Tuberculos is screening 962791941 Z11.1 Body mass index 30+ - obesity 248918337 Z68.39 Administra tion of influenza vaccine 73530809 Z23 [id number] MD Laurence Angel [address] OB [address] [facility] [address] [place], [place] [address] [address] 06/11/2020 09:33:55 06/12/2020 11:19:33 Gynecologic examination 56242849 Z01.419 -Educated on the importance of SBE and awareness. -Discussed the importance of cervical cancer screenings -Educated osteoporos is prevention including calcium rich foods, weight bearing exercise. -Discussed the importance of exercise. -Nutrition discussed and the importance of a diet rich in fruits, vegetable, whole grains, and lean proteins. -Counseled regarding prevention of STD's and screening options, condom use and prevention . -Advised avoidance of tobacco, alcohol, and drugs. -Discussed sun safety and the importance of sunscreen. Family mirna nning surveillance 241876829 Z30.09 Preconcept ion counseling completed. Pt declined genetic testing at this time. Pt educated on risks of obesity in . Pt educated on lifestyle modificati ons. Pt educated on importance of folic acid supplement now. Discussed contracept ion methods. Patient not interested in any methods other than condoms at this time. Patient aware of her increased risk for unplanned . Patient advised to do 400 mcg folic acid supplement to help prevent against NTD if unplanned occurs. Follow up annually and as needed if or missed period occurs. Body mass index 40+ - severely obese 284213780 Z68.41 Pt educated on risks of obesity and importance of lifestyle modificati ons. Pt reports working with her PCP on weight loss. Pt reports she lost 43 pounds over the last 4 years with lifestyle modificati ons. Pt notified to continue to follow up with PCP. Abnormal u terine bleeding 4994631075 9100 N93.9 UPT negative. pap and gonorrhea, chlamydia and trich testing completed. Labs and pelvic US ordered. Pt educated on management options. Pt not interested in medication at this time. Pt notified to complete pelvic US within 2 weeks. Pt notified to follow up in 1 month and to track menses and call office if issues occur before appt. Pt notified follow up plan may change based on lab and US results. [id number] MD Laurence Angel [address] [facility] [place] [address] 01/12/2021 10:52:45 01/13/2021 06:49:02 Routine care 902164768 Z34.01 Family his tory of Spina bifida 328309248 Z82.79 [id number] MD Laurence Angel [address] [place] [address] 02/11/2021 10:15:26 02/12/2021 13:27:21 Routine care 839621860 Z34.01 Low back p ain in 5444374662 106 O26.899 Pt educated on management options and importance of stretching and massage. Pt opts for PT referral. maternity belt ordered. Pt educated on warning signs and when to call office. Pt also notified when to go to [facility]. RTC in 4 weeks and call office if issues occur. [id number] MD Laurence Francis [address] [facility] [address] Singh [facility] [place] [address] 12/20/2021 16:17:50 12/22/2021 13:34:47 Adult health examination 826263329 Z00.00 -pt noted to have a 65# weight gain since last visit, however, is 5 months post .-Ge t lab work done as discussed. We will call you with the results-sa fety discussed with patient-Pt immunizati ons given. She will return for flu shot-Will make eye apt.-Diet and exercise discussed- Will make dental apt. Iron defic iency anemia 65663389 D50.9 -Had FAM in . Headache f ollowing lumbar puncture 360395672 G97.1 -Advised will send to a neurologis t due to length of symptoms.- ER precaution s discussed. -Keep headache journal.-C an take ibuprofen/ tylenol for relief of headaches. Pt still has Topamax from prior neurologis t.-To f/u in 1 month Body mass index 40+ - severely obese 074298751 Z68.41 [id number] Maliha Gusman-MD Laurence Chandler [address] [facility] [address] [place], [place] [address] [address] 01/31/2022 11:36:50 02/01/2022 15:31:11 Acute right otitis media 727823201 H66.91 -to take as directed.- Can take with ibuprofen/ tylenol to help with fever or pain.-Incr ease fluid intake.-to alert clinic if any new or worsening symptoms. [id number] NHI Clarke 14 PEDS [address] [facility] [address] [facility] [place] [address] 03/03/2022 12:01:09 03/07/2022 14:46:21 Administration of influenza vaccine 21526956 Z23 [id number] YUNI Hightower NP [facility] [address] [place] [address] 03/09/2022 12:27:35 03/25/2022 14:45:34 Acute sinusitis 60010556 J01.90 -Increase fluid intake-Can use tylenol or ibuprofen for fever or pain-To alert clinic if any new or wosening symptoms. [id number] Ramez Interiano MD [facility] [address] [place] [address] 06/02/2022 15:44:11 06/09/2022 14:29:53 Seasonal allergic rhinitis 664071855 J30.2 -To use as directed. Pt will pickup otc zyrtec and flonase.-t o alert clinic if any new or worsening symptoms. [id number] Deyvi James MD [place] [address] [address] 07/25/2023 13:59:37 07/26/2023 08:36:37 Routine gynecologic examination done 0676244202 9101 Z01.419 -Educated on the importance of SBE and awareness. -Discussed the importance of cervical cancer screenings -Educated osteoporos is prevention including calcium rich foods, weight bearing exercise.- Discussed the importance of exercise.- Nutrition discussed and the importance of a diet rich in fruits, vegetable, whole grains, and lean proteins.- Counseled regarding prevention of STD's and screening options, condom use and prevention .-Advised avoidance of tobacco, alcohol, and drugs.-Dis cussed sun safety and the importance of sunscreen. Body mass index 40+ - severely obese 232230850 Z68.41 Pt educated on risks of obesity and importance of lifestyle modificati ons. Pt notified to continue to follow up with PCP Trying to conceive [address]238 7399 Z31.9 Preconcept ion counseling completed. Pt declined genetic testing at this time. Pt educated on risks of obesity in . Pt educated on lifestyle modificati ons. Pt educated on importance of folic acid supplement now. pt advised to track menses and call office if missed menses occur or positive home test. Follow up annually and as needed. History of abnormal cervical Papanicolaou smear 464680906 Z87.42 repap completed. follow up based on results. [id number] MD Laurence Daniels [address] [place] [address] Dr Singh [address] [place], [place] [address] [address] 08/03/2023 08:55:15 08/09/2023 13:29:04 Morbid obesity 375030650 E66.01 12100721 Z33.1 with new , just over 1 month per LMP. Will follow with Marielos Robles on Monday (08/07/23) for further management . Headache 02618853 R51.9 Advised not to take topiramate during . Alternativ es include tylenol, aspirin anti-emeti c/anti-his tamine combinatio n. Advised not to take NSAIDs. Advised to call neurologis t to discuss other alternativ es that are safe in if she is still struggling . [id number] MD Laurence Angel [address] [place] [address] Dr Singh [address] [place] [address] 08/15/2023 11:05:18 08/16/2023 12:41:18 Early stage of 249146423 Z34.90 Subchorionic hematoma 60 5779176 O41.8X99 UA negative. Serial HCG ordered. Follow up OB US ordered for pt to complete in 2 weeks. Pt educated on warning signs and given ER precaution s. pt notified to call office if issues occur. Pt educated on importance of close follow up. 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 Symptomati c treatments include:- Over the counter antihistam danya such as loratidine (Claritin) or cetirizine (Zyrtec) to reduce secretions .- Pain or fever: Acetaminop hen (Tylenol)- Sore throat: salt water gargles and throat lozenges- Sinus drainage: can apply warm packs to face to facilitate drainage- Can use cool mist humidifier in bedroom at night- Increase fluid consumptio n If you experience any shortness of breath, chest pain or persistent fever > 101 F despite over the counter medication , go to the Emergency department .Follow-up with OB provider as indicated [id number] MD Laurence Frausto [address] [facility] [place] [address] 04/25/2024 11:45:30 04/30/2024 10:24:46 Morbid obesity 826712476 E66.01 Migraine 35126425 G43.90 9 patient's unilateral facial pain shooting up to head non-specif ic although may be recurrence of previously existing migrainedi fferential s include TMJ disorder, trigeminal neuralgia, cluster headache, allergic rhinitiswi ll restart topiramate as this previously assisted with her migraines and should help treat if this is a neurologic al disorder ie trigeminal neuralgia [id number] MD Laurence AMAYA [address] [facility] [place] [address] 05/20/2024 09:08:09 06/10/2024 16:03:27 Morbid obesity 787405371 E66.01 Migraine 02826759 G43.90 9 Patient with migraine w/ aura manifested as left sided jaw/TMJ pain with good response to topiramate Patient believes 50 mg po bid may be too high of a dose so will decrease to 25 mg po bid and assess tolerabili ty [id number] MD Laurence Vargas [address] [facility] [place] [address] 06/13/2024 08:59:04 06/21/2024 13:12:09 Body mass index 40+ - severely obese 414760899 Z68.43 Discussed diet and weight loss. Discussed making healthier food choices and increasing exercise. Discussed going to a ropeman. Contracept ion care management 443864145 Z30.9 1. Reviewed all forms of control with patient including risk factors and side effects. 2. Counseled on STD transmissi on and prevention , condom use and prevention . 3. Pt would like to start with OCP. Educated on correct use and side effects. Will send rx to pharmacy. 4. Follow up for med check in 3 months or sooner if needed. [id number] MD Laurence DIXON [address] [place] [address] [place] [address] 06/24/2024 15:20:06 07/08/2024 16:06:27 Morbid obesity 250753441 E66.01 Tuberculos is screening 411849618 Z11.1 Obtain quantifero n gold testing Fit for work 166938200 Z 78.9 Form required Urine dip and WNLPaperwo rk filled out [id number] MD Laurence Angel [address] [facility] [place] [address] 07/03/2024 16:37:34 07/05/2024 12:05:31 Sterilization requested 733087989 Z30.2 --Pt will have sterilizat ion performed at [facility] to occur earlier than my availabili ty Morbid obesity 024666246 E66.01 Health Concerns Section Related Observation LastModified by Organization Detai ls LastModified Time None Recorded Concern Status LastModified by Organization Details LastModified Time None Recorded Advance Directives Directive None Recorded Payers Encounter Date Sequence Insurance Name Policy Number Policy Dorman Covered Member ID Dorman Member ID Guarantor Name 04/25/2024 2 [facility] - DOS ON OR AFTER 20 (MEDICAID REPLACEMENT - HMO) Mary Gonsalves Chipol [id number] Mary Oseguera Chipol 04/25/2024 1 [facility]-[employer] - [employer] - [employer]IG[employer] (PPO) [id number] Mary Oseguera Chipol [id number] Mary Oseguera Chipol 05/20/2024 2 [facility] ON OR AFTER 11/05/20 (MEDICAID REPLACEMENT - HMO) Mary Gonsalves Chipol [id number] Mary Oseguera Chipol 05/20/2024 1 [facility] - [employer] - [employer] (PPO) [id number] Mary Oseguera Chipol [id number] Mary Mohree Chipol 06/13/2024 2 [facility] ON OR AFTER 11/05/20 (MEDICAID REPLACEMENT - HMO) Mary Gonsalves Chipol [id number] Mary Oseguera Chipol 06/13/2024 1 [facility] - [employer] - [employer] (PPO) [id number] Mary Oseguera Chipol [id number] Mary Oseguera Chipol 06/24/2024 2 [facility] ON OR AFTER 11/05/20 (MEDICAID REPLACEMENT - HMO) Mary Gonsalves Chipol [id number] Mary Oseguera Chipol 06/24/2024 1 [facility] - [employer] - CIGNA (PPO) [id number] Mary Oseguera Chipol [id number] Mary Oseguera Chipol 07/03/2024 2 [facility] ON OR AFTER 11/05/20 (MEDICAID REPLACEMENT - HMO) Mary Gonsalves Chipol [id number] Mary Oseguera Chipol 07/03/2024 1 [facility] - [employer]IG[employer] (PPO) [id number] Mary Oseguera Chipol [id number] Mary Schofield Notes Date Note Type Note Provider Name and Address Organization Details Recorded Time 04/25/2024 text/html 24 yo female presenting s/p 04/03. She was managed by MFM at [facility] for her . Her was complicated by obesity, proteinuria, hx hemorrhage. She reports since delivering she has been having constant left ear pain. She is concerned she has an infection. She states every time she turns her head she has a shooting pain into her baptism area. The overlying skin on her left [...] or difficulty urinating. Marian Castorena MD Attn: Accounting, [address] [place], [address], [facility] - [facility] 04/29/2024 14:38:26 05/20/2024 text/html 24 yo female presenting for follow up topiramate working wellno more shooting pain or headacheslots of side effects however- tingling in fingers and toes, rebound headaches if missed dose, tiredness, brain fog- feels as though she can't keep track of the days since starting it- agreeable to cut the topiramate dose in half no other concerns today MAGO DE SANTIAGO MD Attn: Accounting, [address] [place], [address], [place] - [facility] 06/08/2024 13:58:56 06/13/2024 text/html 24 yo fe here fo r control consultation- would like a tubal ligation, - was on depo after of last child, bleeding daily, would like to start ocp until tubal can be scheduled RASHI aSl- Attn: Accounting, [address] [place], [address], [place] [facility] 06/13/2024 11:10:19 06/24/2024 text/html 24 yo F presents to clinic for work physicialShe has no concerns. ZABRINA OCAMPO MD Attn: Accounting, [address] [place], [address], [place] [facility] 07/05/2024 18:08:44 07/03/2024 text/html Patient presents to discuss permanent sterilization. She denies any complaints. Deyvi James MD Attn: Accounting,[address], [place], [address], [place] - [facility] 07/03/2024 17:36:25 OBGyn Episode Ob Episode Information Episode Created Date Number of Fetuses Patient Bloodtype Patient rh Status Prepregnancy Weight lbs Domestic Partner Domestic Partner Phone Father Name Naval Designer Status 08/09/19 24 1 O Negative CLOSED Fetus Data First Name Last Name Admitted to NICU Weight (g) Sex Living Outcome Pediatric Complications Fetus ID Race Codes Race Delivery Type 3540.87 [id number] M Full Term 58592 2106-3 White Vaginal Problems Problem Notes boy yes to circumcision, yes to epidural, unsure of breast or bottle Problem Name Start Date End Date Resolution Snomed Code Not e Past history of hemorrhage [id number] co manage with mfm and obgyn Migraine [id number] mfm stoppe d topiramate and start tylenol Family history of Spina bifida [id number] co manage with mfm Morbid obesity 08/03/2023 [id number] pt e ducated on risk and discussed safe lifestyle modifications in . 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 Cici Calculation Initial Cici Date Initial Exam Date Initial Exam Provider Initial Ultrasound Date Last Menstrual Period Date Ultra Sound Weeks Gestation 04/02/2024 09/18/2023 fernstrfabrice 08/28/2023 06/27/2023 7 Eighteen To Twenty Week Cici Update Ultra Sound Date Fundal Height At Umbil Quickening Date Ultra Sound Latest Weeks Gestation Final Cici Confirmed By Final Cici Confirmed Date Final Cici Date Ultra Sound Latest Days Gestation 08/28/19 7 fernstrn 08/31/2023 04/10/20 5 Pre- Flowsheet Flowsheet Date 08/15/2023 Herrera Score Blood Edema Fundus Height Fundus Units Glucose Ketones Leukocytes Nitrite Labor Signs Protein Cervic Dilation Cervic Effacement Cervic Station Type Weight in lbs Pre/Post Dialysis Refused With clothes 309.41283236889 BP Diastolic BP Location Tested BP Systolic BP Type 80 125 sitting Fetus Heart Rate Present Fetus Movement Comments Flowsheet Date 09/18/2023 Herrera Score Blood Edema Fundus Height Fundus Units Glucose Ketones Leukocytes Nitrite Labor Signs Protein Cervic Dilation Cervic Effacement Cervic Station neg none none negative none neg Type Weight in lbs Pre/Post Dialysis Refused With clothes 306.558038698244 BP Diastolic BP Location Tested BP Systolic [...] in lbs Pre/Post Dialysis Refused With clothes 308.080228062543 BP Diastolic BP Location Tested BP Systolic [...] in lbs Pre/Post Dialysis Refused With clothes 321.823522233701 BP Diastolic BP Location Tested BP Systolic BP Type 82 R arm 118 sitting Fetus Heart Rate Present Fetus Movement Comments Flowsheet Date 04/25/2024 Herrera Score Blood Edema Fundus Height Fundus Units Glucose Ketones Leukocytes Nitrite Labor Signs Protein Cervic Dilation Cervic Effacement Cervic Station Type Weight in lbs Pre/Post Dialysis Refused With clothes 302.411810335832 BP Diastolic BP Location Tested BP Systolic [...] At Estimated Date of Delivery false Thalassemia (Wallisian, British, Mediterranean, Or Background): MCV < 80 false Neural Tube Defect (Meningom yelocele, Spina Bifida, Or Anencephaly) true pt sister Congenital Heart Defect false Down Syndrome false Holger-Sachs (eg, Pentecostalism, Cajun, [place] Ver[place]an-[place]) f alse Vanessa Disease false Sickle Cell Disease Or Trait () false Hemophilia Or Other Blood Disorders false Muscular Dystrophy false Cystic Fibrosis false Langlade's Chorea false Mental Retardation/Autism true pt sis [...] violence fe rnstrn 09/18/2023 Environmental/work hazards f ernstrfabrice 09/18/2023 Screening for aneuploidy perfecto nstrn 09/18/2023 Nutrition counseling ; special diet; dietary precautions (mercury, listeriosis) fernstrn 09/18/2023 Childbirth classes/hospital facilities fernstrn 09/18/2023 HIV and other routine tests fernstrn 09/18/2023 Risk factors identif ied by history fernstrn 09/18/2023 Weight gain counseling [facility] 09/18/2023 [facility]23 [facility]23 Use of any medicatio ns (including supplements, vitamins, herbs, or OTC drugs) fernstrn 09/18/2023 fernstrn 09/18/2023 Sexual activity [facility] 09/18/2023 Tobacco/smoking cess ation counseling (ask, advise, assess, assist, and arrange) fernstrn 09/18/2023 Illicit/recreational drugs f ernstrn 09/18/2023 [facility] 09/18/2023 [facility] 09/18/2023 Seat belt use [facility] 09/18/2023 Indications for ultrasonography fertr 09/18/2023 Avoidance of saunas or hot tubs [facility] 09/18/2023 Toxoplasmosis precautions (cats/raw meat) [facility] Second Trimester Discussed Date Discussion Item Discussion Note Discuss ed By Third Trimester Discussed Date Discussion Item Discussion Note Discuss ed By Delivery Information Delivery Date Delivery Type Labor Anesthesia Weeks Gestation Incision Type Labor Labor Length Hrs Delivered By Post Complications Tubal Sterilization Discharge Date Comments 4 Induce d Regional-Ep idural 39 false Evans STL false Discharge Information Feeding Method Contraceptive Method Maternal HG B and HCT Levels Ob Episode Information Episode Created Date Number of Fetuses Patient Bloodtype Patient rh Status Prepregnancy Weight lbs Domestic Partner Domestic Partner Phone Father Name Naval Designer Status 08/03/19 22 1 CLOSED Fetus Data First Name Last Name Admitted to NICU Weight (g) Sex Living Outcome Pediatric Complications Fetus ID Race Codes Race Delivery Type 3146.56 7704 [id number] Vaginal Cici Calculation Initial Cici Date Initial Exam Date Initial Exam Provider Initial Ultrasound Date Last Menstrual Period Date Ultra Sound Weeks Gestation 0 Eighteen To Twenty Week Cici Update Ultra Sound Date Fundal Height At Umbil Quickening Date Ultra Sound Latest Weeks Gestation Final Cici Confirmed By Final Cici Confirmed Date Final Cici Date Ultra Sound Latest Days Gestation 0 [...] Domestic Partner Domestic Partner Phone Father Name Naval Designer Status 11/18/19 21 1 O Negative CLOSED Fetus Data First Name Last Name Admitted to NICU Weight (g) Sex Living Outcome Pediatric Complications Fetus ID Race Codes Race Delivery Type [id number] Problems Problem Notes Rubella and varicella non im mune. Recommend vaccine after delivery. Avoid sick contacts.Pt educated on COVID vaccine and FLu vaccine. Pt declined at this time and verbalized understanding of risks. Problem Name Start Date End Date Resolution Snomed Code Not e Family history of Spina bifida [id number] sister of dontrell nt has Spina bifida and CP. Pt referred to [facility] for co management. Started pt on additional 400 mcg of folic acid with PNV. Low back pain in [id number] Pt educated on management options and importance of stretching and massage. Pt opts for PT referral. maternity belt ordered. Pt educated on warning signs and when to call office. Pt also notified when to go to [facility]. RTC in 4 weeks and call office if issues occur. RhD negative [id number] aware o f need for routine rhoGAM and as needed if issues occur. Cici Calculation Initial Cici Date Initial Exam Date Initial Exam Provider Initial Ultrasound Date Last Menstrual Period Date Ultra Sound Weeks Gestation 07/26/2021 11/17/2020 fernstrn 10/19/2020 0 Eighteen To Twenty Week Cici Update Ultra Sound Date Fundal Height At Umbil Quickening Date Ultra Sound Latest Weeks Gestation Final Cici Confirmed By Final Cici Confirmed Date Final Cici Date Ultra Sound Latest Days Gestation 0 07/27/19 22 0 Pre-ashley Flowsheet Flowsheet Date 01/12/2021 Herrera Score Blood Edema Fundus Height Fundus Units Glucose Ketones Leukocytes Nitrite Labor Signs Protein Cervic Dilation Cervic Effacement Cervic Station neg none none negative none neg Type Weight in lbs Pre/Post Dialysis Refused With clothes 258.814543680286 BP Diastolic BP Location Tested BP Systolic BP Type 74 120 sitting Fetus Heart Rate Present A 145 Present Fetus Movement Comments Pt is here for new ob appoin tment. PT denies any complaints. Pt educated on care, labs, and precautions. Discuss CF carrier screening. PT opts for screening. Pt reports her sister of patient has Spina bifida and CP. Pt referred to [facility] for co management. Pt educated on warning signs and given ER precautions. RTC in 4 weeks and call office if issues occur. Flowsheet Date 02/11/2021 Herrera Score Blood Edema Fundus Height Fundus Units Glucose Ketones Leukocytes Nitrite Labor Signs Protein Cervic Dilation Cervic Effacement Cervic Station neg none none negative none neg Type Weight in lbs Pre/Post Dialysis Refused With clothes 265.902511808416 BP Diastolic BP Location Tested BP Systolic [...] At Estimated Date of Delivery false Thalassemia (Wallisian, British, Mediterranean, Or Background): MCV < 80 false Neural Tube Defect (Meningom yelocele, Spina Bifida, Or Anencephaly) true sister of patient has Sp marguerite bifida and CP Congenital Heart Defect false Down Syndrome false Holger-Sachs (eg, Pentecostalism, Cajun , [place]an-[place]) false Vanessa Disease false Sickle Cell Disease Or Trait () false Hemophilia Or Other Blood Disorders false Muscular Dystrophy false Cystic Fibrosis false Langlade's Chorea false Mental Retardation/Autism true sister and [...] ed By 01/12/2021 Anticipated course of care [facility] 01/12/2021 Alcohol [facility] 01/12/2021 Int[facility] partner violence [facility] 01/12/[facility]21 [facility] 01/12/2021 [facility]y [facility] 01/12/2021 Nutrition counseling ; special diet; dietary precautions (mercury, listeriosis) [facility] 01/12/2021 Childbirth classes/hospital facilities [facility] 01/12/2021 HIV and other routine tests [facility] 01/12/2021 Risk factors identif ied by history [facility] 01/12/2021 Weight gain counseling [facility] 01/12/2021 Exercise [facility] 01/12/2021 Teratogens [facility] 01/12/2021 Use of any medicatio ns (including supplements, vitamins, herbs, or OTC drugs) [facility] 01/12/2021 [facility] 01/[facility]21 Sexual activity [facility] 01/12/2021 Tobacco/smoking cess ation counseling (ask, advise, assess, assist, and arrange) [facility] 01/12/2021 Illicit/recreational drugs [place] 01/12/2021 [facility] 01[facility]12/2021 Travel [facility] 01/12/2021 Seat belt use fern[facility]n 01/12/2021 Indications for ultrasonography fern[facility]n 01/12/2021 Avoidance of saunas or hot tubs fern[facility]n 01/12/2021 Toxoplasmosis precautions (cats/raw meat) [facility] Second Trimester Discussed Date Discussion Item Discussion Note Discuss ed By 02/11/2021 Selecting a care provider fernstrn 02/11/[address] anning/tubal sterilization fernstrn 02/11/2021 Depression screening (when indicated) fern[facility]n 02/11/2021 Abnormal lab values fern[facility]n 02/11/2021 Signs and symptoms of labor fernstrn [...]
[2024-09-14 16:52] VITALS: BP 139/70; PULSE 78; RESP 18; TEMP 36.6; O2SAT 100
== END 2024-09-14 17:07 | disposition home or self-care (01) ==
PROVIDERS: Emergency Provider Nurse Practitioner
DX: L03.031 Cellulitis of right toe (principal); Z79.899 Other long term (current) drug therapy
CPT/HCPCS: 99213; G0463